=== PATIENT | female | born 1970 | race Caucasian/White ===

== ENCOUNTER 2024-10-07 04:13 | Inpatient (IN) | payer MEDICAID, OTHER ==
[~2024-10-07] VITALS: Ht 162.6 cm; Wt 57.0 kg
[2024-10-07] VITALS (45 sets, daily range): BP systolic 89–156; BP diastolic 45–93; PULSE 61–114; RESP 14–35; TEMP 100.2–101.7; O2SAT 97–100
[2024-10-07] MEDS: ETOMIDATE (2MG/ML) 20ML VIAL IV ONE ×2 (04:17→05:05)
[2024-10-07] MEDS: AMIODARONE BOLUS KIT 100 ML IV ONE ×2 (04:17→04:30)
[2024-10-07] MEDS: ROCURONIUM 10MG/ML 10ML VIAL IV ONE ×2 (04:17→05:05)
[2024-10-07] MEDS ORDERED: VANCOMYCIN 1GM/200ML PM 200 ML IV ONE (04:45)
[2024-10-07 04:47] LABS: Hematocrit 31.6 % (36.0-46.0); Hemoglobin 10.1 g/dL (12.2-16.2); Mean Corpuscular Hemoglobin 31.2 pg (28.0-32.0); Mean Corpuscular Volume 97.3 fL (80.0-100.0)
[2024-10-07] MEDS: SODIUM CHLORIDE 0.9% 1,000 ML IV ONE ×2 (05:05→05:06)
[2024-10-07 05:06] LABS: INR 1.26 (0.9-1.15); Partial Thromboplastin Time 26.3 SEC (24.5-34.5); Prothrombin Time 13.1 sec (9.3-11.8)
--- NOTE | 2024-10-07 05:07 | DVH ---
CHEST RADIOGRAPH Indication: s/p intubation and central line check placement Technique: Single frontal view of the chest was obtained COMPARISON: None FINDINGS: Lines and Tubes: Endotracheal tube tip projects approximately 1.4 cm above the level of the tyler. E nteric catheter courses below the lateral of the diaphragm and terminates beyond the inferior margin of the image. Right internal jugular central venous catheter terminates within the distal superior v cheng cava. Lungs: Moderate diffuse increased prominence of the pulmonary vasculature without evidence of focal c onsolidation. Pleura: No effusion. No pneumothorax. Cardiomediastinal contours: Cardiomegaly. Bones: Unremarkable IMPRESSION: 1. Cardiomegaly and diffuse increased prominence of the pulmonary vasculature. 2. Lines and tubes as above.
[2024-10-07 05:24] LABS: Alanine Aminotransferase 11 U/L (7-40); BUN/Creatinine Ratio 8.4 (10.0-20.0); Total Protein 5.9 g/dL (5.7-8.2)
[2024-10-07] MEDS: MIDAZOLAM DRIP 50 mg/50mL 50 ML IV SCH (05:24)
[2024-10-07 05:25] LABS: Albumin 3.3 g/dL (3.2-4.8); Bilirubin, Total 0.6 mg/dL (0.2-1.0)
[2024-10-07] MEDS: VANCOMYCIN 1GM/250ML KIT 250 ML IV ONE ×2 (05:25)
[2024-10-07 05:26] LABS: Total Cells Counted 100.0 (100)
[2024-10-07 05:35] LABS: Alkaline Phosphatase 142 U/L (46-116); Blood Urea Nitrogen 8 mg/dL (9-23); Calcium 8.2 mg/dL (8.7-10.4); Chloride 104 mmol/L (98-107); Glucose 140 mg/dL (74-106); Lactic Acid w/Reflex 5.8 mmol/L (0.4-2.0); Potassium 3.4 mmol/L (3.5-5.1); Sodium 138 mmol/L (136-145)
[2024-10-07 05:37] LABS: Anion Gap 15 (5-15); Carbon Dioxide 19 mmol/L (20-31)
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
[2024-10-07 05:54] LABS: Base Excess -1.3 mmol/L (-2.0-3.0)
[2024-10-07] MEDS ORDERED: CEFEPIME 1GM/50ML 50 ML IV SCH (06:00)
[2024-10-07] MEDS: fentaNYL Drip 2500mCg/250mlNS 250 ML IV SCH (06:28)
[2024-10-07 06:29] LABS: Urine Protein, UAD 3+ (Negative)
--- NOTE | 2024-10-07 07:09 | ECG ---
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
--- NOTE | 2024-10-07 07:11 | ECG ---
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
[2024-10-07] MEDS ORDERED: CEFEPIME 1GM/50ML 50 ML IV ONE (07:30)
[2024-10-07] MEDS: CEFEPIME 1GM/50ML 50 ML IV ONE (07:36)
[2024-10-07] MEDS ORDERED: MORPHINE SULFATE INJ 2 MG/ml SYRG IV PRN (10:00)
[2024-10-07] MEDS ORDERED: AMIODARONE 360mg/200mL PREMIX 200 ML IV SCH (10:00)
[2024-10-07] MEDS ORDERED: NITROGLYCERIN 0.4 MG SL TAB SL PRN (10:00)
[2024-10-07] MEDS ORDERED: ONDANSETRON HCL 4 MG/2 ML VIAL IV PRN (10:00)
--- NOTE | 2024-10-07 10:10 | DVHHP2 ---
Admitting Diagnosis: Post cardiac arrest History of Present Illness 54 y/o female patient presents status post cardiac arrest. Patient collapsed at her dining table which was witnessed by her significant other. CPR was performed by EMS. She was noted to have ventricular tachycardia. While in the emergency department the patient was evaluated by the provider, As per provider: Labs, vital signs, and imagining monitored. Patient will be admitted for further evaluation and treatment. I discussed admission with the patient/family and is in agreement to treatment plan. Allergies: Coded Allergies: NO KNOWN ALLERGIES (Unverified , 10/07/24) Current Medications Current Medications Medications (Trade) Dose Ordered Sig/Liliam Route PRN Reason Start Time Stop Time Status Last Admin Cefepime HCl 50 ml @ 12.5 mls/hr Q8HR IV 10/07/24 14:00 10/08/24 06:11 Ondansetron HCl (Zofran) 4 mg Q4HP PRN IV NAUSEA / VOMITING 10/07/24 10:00 Nitroglycerin (Ntrostat Sublingual) 0.4 mg Q5MINP PRN SL FOR CHEST PAIN 10/07/24 10:00 Morphine Sulfate 2 mg Q30M PRN IV FOR CHEST PAIN 10/07/24 10:00 Pantoprazole Sodium (Protonix) 40 mg DAILY IV 10/07/24 10:00 10/07/24 10:52 Norepinephrine Bitartrate 250 ml @ 3.75 mls/hr Q24H IV 10/07/24 12:15 10/07/24 12:35 Heparin Sodium/ Dextrose 250 ml @ 8 mls/hr Q24H IV 10/07/24 16:30 10/08/24 00:33 DC 10/07/24 18:06 Furosemide (Lasix Injection) 40 mg BIDD IV 10/07/24 18:00 10/07/24 17:53 Atorvastatin Calcium (Lipitor) 40 mg HS PO 10/07/24 22:00 Aspirin 81 mg DAILY PO 10/08/24 10:00 Magnesium Sulfate/ Dextrose 100 ml @ 100 mls/hr Q1HR IV 10/07/24 19:00 10/07/24 20:59 DC 10/07/24 20:22 Magnesium Sulfate/ Dextrose 100 ml @ 100 mls/hr Q1HR IV 10/07/24 21:00 10/07/24 22:59 DC 10/07/24 22:00 Heparin Sodium/ Dextrose 250 ml @ 10 mls/hr Q24H IV 10/08/24 00:45 10/08/24 00:36 Review of Systems Constitutional: denies chills, denies fever, denies malaise Eyes: denies eye pain, denies vision change ENT: denies ear pain, denies headache, denies nasal congestion, denies painful swallowing, denies voice change Respiratory: denies cough Gastrointestinal: denies constipation, denies diarrhea, denies nausea, denies vomiting Genitourinary: denies dysuria, denies frequent urination, denies urethral discharge Musculoskeletal: denies back pain, denies joint pain, denies muscle pain Skin: denies bruising, denies itching, denies rash Neurological: denies focal weakness, denies headache, denies sensory changes Psychiatric: denies anxiety, denies depression Endocrine: denies polydipsia, denies polyuria Hematologic/Lymphatic: denies easy bleeding, denies easy bruising, denies enlarged lymph nodes Allergic/Immunologic: denies allergy, denies hives Vital Signs Vital Signs Date Time Temp Pulse Resp B/P (MAP) Pulse Ox O2 Delivery O2 Flow Rate FiO2 10/08/24 06:45 99.3 90 21 100/62 (75) 99 210.7 10/08/24 06:07 30 10/08/24 06:00 Mechanical Ventilator+ Physical Exam HEENT: EOMI, PERRLA, normal external inspect of ears, no icterus, no nasal drainage Neck: no carotid bruit, no jugular venous distention (JVD), no lymphadenopathy Chest: normal thorax Abdominal: soft, no hepatomegaly, no mass, no splenomegaly, no tenderness Genitourinary: grossly normal external Musculoskeletal: no joint tenderness, no swelling Extremities: normal pulses, no calf tenderness, no clubbing, no cyanosis, no edema Skin: no bruising, no jaundice, no rash Neurological: No focal deficit SEPSIS Sepsis Screen Date sepsis recognized/suspect: Oct 07, 2024 Time Sepsis recognized/suspect: 814 Recent Procedure: Yes On Antibiotic Therapy: Yes Respiratory Rate >20: No Heart Rate >90: Yes Temp<36 C (96.8 F) or >38.3 C: Yes SBP <90 or MAP <65 mmHG: No New Acute Mental Status Change: No Is the patient on CPAP, BIPAP,: Yes Physician Orders Ventilator Orders (10/07/24 04:26) Respiratory Culture W/ Gs (10/07/24 04:26) Abg W/ Co-Ox (10/07/24 04:26) Chest Portable (10/07/24 04:31) Accucheck (10/07/24 04:38) Blood Culture (10/07/24 04:38) Notify Md If Map <65 Or Bp<90 (10/07/24 04:38) If Map<65 Start Vasopressor (10/07/24 04:38) Sepsis Reassesment After Fluid (10/07/24 05:38) Midazolam Drip 50 Mg/50ml (Versed Drip 5 (10/07/24 04:45) Rass Sedation Scale Q1HR (10/07/24 04:40) Fentanyl Drip 2500mcg/250mlns (10/07/24 06:15) Cefepime 1gm/ 50ml (Maxipime 1gm/50ml) (10/07/24 14:00) Admit (10/07/24 09:56) Code Status (10/07/24 09:56) Ondansetron Hcl (Zofran) (10/07/24 10:00) Condition: Critical (10/07/24 09:56) Sequential Compression Device (10/07/24 ) *Consult Dr. Armstrong (10/07/24 09:56) *Consult / (10/07/24 09:56) Nitroglycerin Sublingual (Ntrostat Subli (10/07/24 10:00) Morphine Sulfate Injection (10/07/24 10:00) Stat Ekg For Chest Pain (10/07/24 09:56) Notify Md Of Changes From Base (10/07/24 09:56) Orange Picker For 24 Hours (10/07/24 09:56) Emergency Dysrhythmia Protocol (10/07/24:56) Rhythm Strips Once Every Shift (10/07/24 09:56) Oxygen By Nasal Cannula (10/07/24 09:56) Echo 2d Mode Cardiac Dop (10/07/24 09:56) Head Without Contrast (10/07/24 09:56) Pantoprazole (Protonix) (10/07/24 10:00) *Consult Dr. Gee Herring (10/07/24 10:10) Communication Order (10/07/24 12:00) Norepinephrine 8 Mg/250ml Kit (Levophed) (10/07/24 12:15) Mrsa Screen (10/07/24 16:50) Platelet Monitoring (10/07/24 16:24) Heparin Per Standardized Proce (10/07/24 16:24) Discontinue All Im Injections (10/07/24 16:24) Furosemide Injection (Lasix Injection) (10/07/24 18:00) Atorvastatin (Lipitor) (10/07/24 22:00) Aspirin Tablet (10/08/24 10:00) Obtain Consent For: (10/08/24 17:24) Obtain Consent For Anesthesia (10/07/24 17:24) Npo (Nothing By Mouth) Diet (10/08/24 Breakfast) Electrocardigram (10/07/24 21:15) Electrocardigram (10/07/24 23:15) Communication Order (10/07/24 20:54) Abg W/ Co-Ox (10/07/24 21:16) Amiodarone 360mg/200ml Premix (Nexterone (10/07/24 21:30) *[facility] (10/07/24 23:21) Heparin Drip/D5w 100units/Ml (10/08/24 00:45) Heparin Per Pharmacy Protocol (10/08/24 00:38) Type And Screen (10/08/24 04:00) Chest Xray 1 View (10/08/24 04:00) Abg W/ Co-Ox (10/08/24 05:06) Chest Xray 1 View (10/08/24 06:24) Cl Left Heart Cath (10/08/24 07:37) Vital Signs Date Time Temp Pulse Resp B/P (MAP) Pulse Ox O2 Delivery O2 Flow Rate FiO2 10/08/24 06:45 99.3 90 21 100/62 (75) 99 210.7 10/08/24 06:30 99.9 88 18 89/55 (66) 211.8 10/08/24 06:30 86/53 10/08/24 06:15 99.9 73 18 92/56 (68) 211.8 8/11/25 06:07 87 18 92/56 (68) 100 30 10/08/24 06:00 100.0 76 18 103/46 (65) 212.0 10/08/24 06:00 18 99 Mechanical Ventilator+ 30 30 10/08/24 06:00 86 10/08/24 06:00 30 10/08/24 05:45 100.0 86 18 93/56 (68) 212.0 10/08/24 05:30 100.0 88 18 95/59 (71) 212.0 10/08/24 05:15 100.0 86 18 95/62 (73) 212.0 10/08/24 05:00 100.2 87 18 98/63 (75) 99 212.4 10/08/24 04:45 99.7 90 18 97/63 (74) 211.5 10/08/24 04:30 99.5 89 18 99/63 (75) 211.1 10/08/24 04:15 100.0 90 18 81/54 (63) 212.0 10/08/24 04:03 90 18 96/59 (71) 100 50 10/08/24 04:00 100.2 95 18 96/59 (71) 212.4 10/08/24 04:00 89 10/08/24 04:00 30 10/08/24 04:00 18 99 Mechanical Ventilator+ 50 50 10/08/24 03:54 213.6 0 0 0 Mechanical Ventilator 0 0 10/08/24 03:45 100.2 93 18 105/68 (80) 212.4 10/08/24 03:40 99/64 10/08/24 03:30 100.2 97 18 99/64 (76) 212.4 10/08/24 03:15 99.9 95 18 92/55 (67) 211.8 10/08/24 03:00 100.2 98 18 99/65 (76) 212.4 10/08/24 02:45 100.2 99 18 95/47 (63) 212.4 10/08/24 02:30 100.2 99 18 99/62 (74) 212.4 10/08/24 02:24 99 18 97/58 (71) 100 50 10/08/24 02:15 100.4 101 18 97/58 (71) 212.7 10/08/24 02:00 100.4 100 18 96/49 (65) 212.7 10/08/24 02:00 50 10/08/24 02:00 90 10/08/24 02:00 18 99 Mechanical Ventilator+ 50 50 10/08/24 01:45 100.4 95 18 102/60 (74) 212.7 10/08/24 01:30 100.6 93 18 90/53 (65) 213.1 10/08/24 01:15 100.6 101 18 99/50 (66) 213.1 10/08/24 01:00 100.6 111 18 94/59 (71) 213.1 10/08/24 00:45 100.6 101 18 96/58 (71) 213.1 10/08/24 00:30 100.6 103 18 101/49 (66) 213.1 10/08/24 00:16 106 19 100/52 (68) 100 50 10/08/24 00:15 100.8 110 20 100/52 (68) 213.4 10/08/24 00:00 100.9 99 18 104/58 (73) 213.6 10/08/24 00:00 68 10/08/24 00:00 18 99 Mechanical Ventilator+ 60 60 10/08/24 00:00 60 10/07/24 23:45 101.1 108 18 101/55 (70) 214.0 10/07/24 23:30 101.1 67 18 102/57 (72) 214.0 10/07/24 23:15 101.1 70 19 100/55 (70) 214.0 10/07/24 23:00 101.3 69 18 105/46 (65) 214.3 10/07/24 22:45 101.5 74 20 94/45 (61) 214.7 10/07/24 22:30 101.7 73 20 105/55 (72) 215.1 10/07/24 22:15 101.7 71 21 106/59 (75) 215.1 10/07/24 22:11 76 20 94/51 (65) 100 60 10/07/24 22:00 18 99 Mechanical Ventilator+ 60 60 10/07/24 22:00 101.7 76 22 94/51 (65) 215.1 10/07/24 22:00 70 10/07/24 22:00 60 10/07/24 21:45 101.7 79 23 90/49 (63) 215.1 10/07/24 21:30 101.5 77 22 95/48 (64) 214.7 10/07/24 21:15 101.5 82 22 93/45 (61) 214.7 10/07/24 21:00 80 21 90/52 (65) 10/07/24 20:45 101.3 82 30 94/51 (65) 214.3 10/07/24 20:30 88 31 100 10/07/24 20:15 90 35 112/54 (73) 10/07/24 20:05 79 19 102/55 (71) 99 100 10/07/24 20:00 72 10/07/24 20:00 100.9 76 20 213.6 10/07/24 20:00 30 10/07/24 20:00 18 99 Mechanical Ventilator+ 30 30 10/07/24 20:00 73 24 99 Mechanical Ventilator+ 30 30 10/07/24 19:45 100.8 61 35 117/60 (79) 100 213.4 10/07/24 19:30 100.8 83 20 100 213.4 10/07/24 19:30 88/46 10/07/24 19:15 100.6 79 23 89/47 (61) 213.1 10/07/24 19:00 89/47 10/07/24 19:00 100.6 76 18 95/54 (68) 213.1 10/07/24 18:45 100.6 76 14 101/65 (77) 213.1 10/07/24 18:40 74 18 104/61 (75) 99 30 10/07/24 18:30 100.4 73 18 103/60 (74) 212.7 10/07/24 18:15 100.4 82 20 97/56 (70) 97 212.7 10/07/24 18:00 18 99 Mechanical Ventilator+ 30 30 10/07/24 18:00 30 10/07/24 18:00 73 10/07/24 18:00 100.4 77 18 92/61 (71) 98 212.7 10/07/24 17:53 102/59 10/07/24 17:45 100.2 71 18 102/59 (73) 99 212.4 10/07/24 17:30 100.4 72 18 100/61 (74) 100 212.7 10/07/24 17:15 100.4 74 18 99/62 (74) 99 212.7 10/07/24 17:00 100.4 74 18 102/63 (76) 100 212.7 10/07/24 16:45 100.4 73 18 110/58 (75) 98 212.7 10/07/24 16:30 100.6 77 18 103/60 (74) 100 213.1 10/07/24 16:28 74 19 104/61 (75) 99 30 10/07/24 16:15 100.6 74 17 104/61 (75) 99 213.1 10/07/24 16:00 73 10/07/24 16:00 18 99 Mechanical Ventilator+ 30 30 10/07/24 16:00 100.6 74 22 109/60 (76) 99 213.1 10/07/24 16:00 30 10/07/24 15:56 79 18 101/61 100 30 10/07/24 15:45 100.6 78 19 97/61 (73) 99 213.1 10/07/24 15:30 78 21 108/59 (75) 98 10/07/24 15:13 81 22 100 Mechanical Ventilator+ 30 30 10/07/24 15:13 100.6 78 19 97/61 (73) 100 100.6 10/07/24 14:22 79 18 101/61 (74) 100 30 10/07/24 14:15 10/07/24 14:00 80 18 100/59 (73) 98 10/07/24 13:45 80 18 102/61 (75) 98 10/07/24 13:30 80 18 101/61 (74) 97 10/07/24 13:15 83 20 104/67 (79) 98 10/07/24 13:12 83 10/07/24 13:00 84 18 92/56 (68) 97 10/07/24 12:45 84 18 99/52 (68) 99 10/07/24 12:35 85/53 10/07/24 12:30 82 14 85/53 (64) 99 10/07/24 12:25 82 18 97/53 (68) 100 30 10/07/24 12:15 84 17 97/53 (68) 99 10/07/24 12:00 82 18 99/57 (71) 98 10/07/24 11:45 82 16 92/60 (71) 99 10/07/24 11:39 83 19 91/53 (66) 98 10/07/24 11:30 83 19 91/53 (66) 98 10/07/24 11:15 86 18 100/58 (72) 96 10/07/24 11:00 87 18 99/57 (71) 97 10/07/24 10:45 85 21 101/54 (70) 97 10/07/24 10:30 86 20 98/55 (69) 94 10/07/24 10:15 85 18 93/54 (67) 96 10/07/24 10:00 90 20 103/58 (73) 97 10/07/24 09:58 92 19 115/60 (78) 100 30 10/07/24 09:45 93 11 99/48 (65) 99 10/07/24 09:30 93 16 113/56 (75) 98 10/07/24 09:15 95 23 110/51 (70) 98 10/07/24 09:01 113/66 10/07/24 09:00 110 113/66 (82) 97 10/07/24 08:45 110 130/64 (86) 98 10/07/24 08:32 112 10/07/24 08:30 112 115/70 (85) 98 10/07/24 08:15 110 130/79 (96) 98 10/07/24 08:00 97.9 112 18 129/78 (95) 99 97.9 10/07/24 07:45 109 133/81 (98) 98 10/07/24 07:43 108 18 136/83 (100) 99 40 10/07/24 07:29 Mechanical Ventilator+ 40 40 10/07/24 07:00 103 29 129/74 (92) 97 10/07/24 07:00 129/74 10/07/24 07:00 129/74 10/07/24 06:30 96.3 112 29 147/84 (105) 97 96.3 10/07/24 06:28 156/93 10/07/24 06:17 114 18 156/93 (114) 97 40 10/07/24 06:00 153/91 10/07/24 06:00 96.1 97 29 153/91 (111) 97 96.1 10/07/24 05:30 83 29 137/80 (99) 97 10/07/24 05:24 129/75 10/07/24 05:20 84 10/07/24 05:00 95.7 85 29 122/77 (92) 97 95.7 10/07/24 04:30 86 29 106/59 (75) 97 10/07/24 04:27 85 18 106/59 (75) 100 100 10/07/24 04:16 Mechanical Ventilator+ 40 40 10/07/24 04:16 94.1 96 25 112/70 (84) 95 94.1 10/07/24 04:16 93 Ambu-Bag 10/07/24 04:16 93 20 112/70 93 10/07/24 04:13 84 Laboratory Tests Test 10/07/24 04:12 10/07/24 05:40 10/07/24 16:53 10/08/24 03:12 Lactic Acid Level 5.8 mmol/L (0.4-2.0) *H 2.0 mmol/L (0.4-2.0) White Blood Count 14.5 10^3/uL (4.4-10.8) H 11.9 10^3/uL (4.4-10.8) H 18.8 10^3/uL (4.4-10.8) #H Medications Medications Dose Ordered Sig/Liliam Route Start Time Stop Time Status Last Admin Dose Admin Heparin Sodium/ Dextrose 250 ml @ 10 mls/hr Q24H IV 10/08/24 00:45 10/08/24 00:36 Magnesium Sulfate/ Dextrose 100 ml @ 100 mls/hr Q1HR IV 10/07/24 21:00 10/07/24 22:59 DC 10/07/24 22:00 Results Labs Test 10/08/24 07:17 10/08/24 06:15 10/08/24 03:12 10/08/24 00:36 Range/Units Blood Gas Specimen Type Arterial Blood Gas Sample Site Right radial Blood Gas Patient Temperature 37.0 Arterial Blood Date Drawn [id number] Arterial Blood pH 7.497 H 7.350-7.450 Arterial Blood Partial Pressure CO2 26.4 L 32.0-45.0 mmHg Arterial Blood Partial Pressure O2 99.5 83.0-108.0 mmHg Arterial Blood HCO3 20.0 L 21.0-28.0 mmol/L Arterial Blood Oxygen Saturation 97.4 94.0-98.0 % Arterial Blood Base Excess -2.3 L -2.0-3.0 mmol/L Arterial Blood Oxyhemoglobin 97.0 94.0-98.0 % Arterial Blood Carboxyhemoglobin 0.3 L 0.5-1.5 % Arterial Blood Methemoglobin 0.1 0.0-1.5 % Trung Test Yes Blood Gas Total Hemoglobin 10.30 L 12.0-16.0 g/dL Blood Gas Set Respiration Rate 18.0 Blood Gas Modality Vent - ac FiO2 % 30.0 Blood Gas Tidal Volume 450.0 Prothrombin Time 12.4 H 9.3-11.8 sec Prothrombin Time INR 1.19 H 0.9-1.15 Activated Partial Thromboplast Time 72.7 *H 24.5-34.5 SEC White Blood Count 18.8 #H 4.4-10.8 10^3/uL Red Blood Count 2.97 L 4.0-5.20 10^6/uL Hemoglobin 9.2 L 12.2-16.2 g/dL Hematocrit 28.4 L 36.0-46.0 % Mean Corpuscular Volume 95.5 80.0-100.0 fL Mean Corpuscular Hemoglobin 30.9 28.0-32.0 pg Mean Corpuscular Hemoglobin Concent 32.4 32.0-36.0 g/dL Red Cell Distribution Width 20.6 H 11.8-14.3 % Platelet Count 220 140-450 10^3/uL Mean Platelet Volume 9.4 6.9-10.8 fL Neutrophils (%) (Auto) 77.6 37.0-80.0 % Lymphocytes (%) (Auto) 16.6 10.0-50.0 % Monocytes (%) (Auto) 5.6 0.0-12.0 % Eosinophils (%) (Auto) 0.0 0.0-7.0 % Basophils (%) (Auto) 0.2 0.0-2.0 % Neutrophils # (Auto) 14.6 H 1.6-8.6 10 ^3/uL Lymphocytes # (Auto) 3.1 0.4-5.4 10 ^3/uL Monocytes # (Auto) 1.1 0-1.3 10 ^3/uL Eosinophils # (Auto) 0 0-0.8 10 ^3/uL Basophils # (Auto) 0 0-0.2 10 ^3/uL Nucleated Red Blood Cells 0.0 % Sodium Level 138 136-145 mmol/L Potassium Level 3.3 L 3.5-5.1 mmol/L Chloride Level 105 98-107 mmol/L Carbon Dioxide Level 22 20-31 mmol/L Anion Gap 11 5-15 Blood Urea Nitrogen 11 9-23 mg/dL Creatinine 0.83 0.550-1.02 mg/dL Glomerular Filtration Rate Calc 83 >90 mL/min BUN/Creatinine Ratio 13.3 10.0-20.0 Serum Glucose 130 H 74-106 mg/dL Calcium Level 7.6 L 8.7-10.4 mg/dL Total Bilirubin 0.6 0.2-1.0 mg/dL Aspartate Amino Transferase (AST) 19 13-40 U/L Alanine Aminotransferase (ALT) 13 7-40 U/L Alkaline Phosphatase 133 H 46-116 U/L Total Protein 5.5 L 5.7-8.2 g/dL Albumin 3.0 L 3.2-4.8 g/dL Magnesium Level 3.0 #H 1.6-2.6 mg/dL Test 10/07/24 22:13 10/07/24 14:09 10/07/24 10:56 10/07/24 06:17 Range/Units Blood Gas Spontaneous Rate 20 Blood Gas Spontaneous Tidal Volume 488 Blood Gas PEEP or CPAP 5.0 Blood Gas Critical Value Read Back Yes Blood Gas Notified Whom Md sarkis rodas Blood Gas Notified Time [id number] Blood Gas Notified By Gerry crane Troponin I High Sensitivity 117 *H </=34 ng/L B-Type Natriuretic Peptide 457.16 0-100 pg/mL Triglycerides Level 71 < 150 mg/dL Cholesterol Level 66 < 200 mg/dL LDL Cholesterol 31 < 100 mg/dL HDL Cholesterol 21 L 40-59 mg/dL Urine Color Yellow Yellow Urine Clarity Turbid H Clear Urine pH 6.0 5.0-9.0 Urine Specific [place] 1.033 1.001-1.035 Urine Protein 3+ H Negative Urine Ketones Trace Negative Urine Blood 1+ H Negative /uL Urine Nitrite Negative Negative Urine Bilirubin Negative Negative Urine Urobilinogen 3 H Negative mg/dL Urine Leukocyte Esterase Negative Negative /uL Urine Glucose 1+ H Normal mg/dL Urine Opiates Screen Neg NEGATIVE Urine Fentanyl Screen Neg NEGATIVE Urine Barbiturates Screen Neg NEGATIVE Urine Phencyclidine Screen Neg NEGATIVE Urine Amphetamines Screen Neg NEGATIVE Urine Benzodiazepines Screen Neg NEGATIVE Urine Cocaine Screen Neg NEGATIVE Urine Cannabinoids Screen Neg NEGATIVE Test 10/07/24 05:40 10/07/24 04:12 Range/Units Lactic Acid Level 2.0 0.4-2.0 mmol/L Differential Total Cells Counted 100.0 100 Neutrophils % (Manual) 54 37.0-80.0 Band Neutrophils % (Manual) 1 Lymphocytes % (Manual) 37 10.0-50.0 Monocytes % (Manual) 7 0-12 Eosinophils % (Manual) 1 0-7 Basophils % (Manual) 0 0.0-2.0 Metamyelocytes % (manual) 0 Myelocytes % (Manual) 0 Promyelocytes % (Manual) 0 Blast Cells % (Manual) 0 Reactive Lymphocytes 0 Platelet Estimate Adequate Microbiology Date/Time Source Procedure Growth Status 10/07/24 05:40 Blood Blood Culture - Preliminary NO GROWTH AFTER 24 HOURS OF INCUBATION. Resulted Plan 1. S/p cardiac arrest Cardiology consult, STAT echo, IV antiarrhythmics, plan for heart cath 2. Ventricular fibrillation Cardiology consult, plan for heart cath 3. Chronic anticoagulation DVT prophylaxis, PPI 4. HLD Monitor, medications 5. Gout Monitor, PPI Plan discussed with: Patient, Other BRODIE GARVIN NP Oct 07, 2024 10:10
[2024-10-07] MEDS: PANTOPRAZOLE 40 MG/10 ML VIAL INJ IV SCH (10:52)
[2024-10-07 11:42] LABS: Triglycerides 71 mg/dL (< 150)
[2024-10-07 11:44] LABS: Cholesterol 66 mg/dL (< 200); HDL Cholesterol 21 mg/dL (40-59)
[2024-10-07] MEDS: POTASSIUM CHL 20MEQ/100ML 100 ML IV ONE (12:20)
[2024-10-07] MEDS: AMIODARONE 360mg/200mL PREMIX 200 ML IV SCH (12:21)
[2024-10-07] MEDS: NOREPINEPHRINE 8 MG/250ML KIT 250 ML IV SCH (12:35)
--- NOTE | 2024-10-07 13:29 | DVHSR ---
APPROVED REPORT EXAM: Two-dimensional and M-mode echocardiogram with Doppler and color Doppler. Blood Pressure: 113/66 mmHg INDICATION Vfib Surgery/Intervention CABG: RISK FACTORS Height: 5' 4", Weight: 143 DIMENSIONS LVDd5.5 (3.8-5.7cm)LA (2D)4.1 (1.9-4.0cm)Aortic Root3.2 (2.0-3.7cm) LVDs5.1 (2.5-4.0cm)LA (MM) (1.9-4.0cm)Aortic Cusp Exc1.7 (1.5-2.0cm) EF (%) 15.0 (55-70%)Rt. Atrium4.4 (1.9-4.0cm)Asc. Aorta cm IVSd1.0 (0.7-1.1cm)RV (D) (1.8-2.4cm) PWd1.0 (0.7-1.1cm) Mitral Valve MitralMitral Stenosis E wave1.30m/sMV Mean GR.mmHg A wave0.70m/sMV Peak GR.mmHg E/A ratio1.92D MVAcm2 Aortic Valve Aortic ValveAortic Stenosis V10.50m/Lisa Mean GR.5mmHg V21.60m/Lisa Peak GR.11mmHg AI P 1/2 Gghk013.68ms Pulmonic Valve V20.70m/s Tricuspid Valve TR Velocity2.90m/s [id number] Conclusion lvef 15-20% dilated LV severe global dysfunction mild RV dysfunction biatrial enlargement mild moderate MAC, moderate mitral regurg mild to moderate aortic regug
[2024-10-07 13:40] LABS: Amphetamine Screen, Urine Neg (NEGATIVE)
[2024-10-07 13:41] LABS: Cannabinoid Screen, Urine Neg (NEGATIVE)
[2024-10-07 13:43] LABS: Barbiturate Scree,Urine Neg (NEGATIVE); Benzodiazephine Screen, Urine Neg (NEGATIVE); Cocaine Screen, Urine Neg (NEGATIVE); Opiate Scree,Urine Neg (NEGATIVE); Phencyclidine Screen, Urine Neg (NEGATIVE)
[2024-10-07] MEDS: CEFEPIME 1GM/50ML 50 ML IV SCH (14:13)
--- NOTE | 2024-10-07 15:42 | DVH ---
CT HEAD WITHOUT CONTRAST INDICATION: aloc EXAM DATE: 10/07/2024 03:01 PM COMPARISON: None RADIATION DOSE: CTDIvol: 53.58 mGy, DLP: 1075.12 mGy*cm PROCEDURE: CT scans of the head were obtained from the vertex to the skull base. Sagittal and coronal reconstructions were provided. All CT scans at this medical facility are performed using dose modulation techniques as appropriate t o a performed exam including the following: Automated exposure control was utilized; adjustment of th e MA and/or KV according to patient size; and use of iterative reconstruction technique. FINDINGS: The brainshows normal morphology and smith-white matter differentiation, without intracra nial hemorrhage, extra-axial fluid collection, mass effect or acute large vessel infarct. The ventric les are normal in size. The basal cisterns are patent. The skull and visible facial bones are intact. The paranasal sinuses, mastoid air cells and middle ear cavities are well-aerated. The soft tissues of the scalp are unremarkable. IMPRESSION: No acute intracranial abnormality.
--- NOTE | 2024-10-07 15:47 | DVHINCON2 ---
Date of service: Oct 07, 2024 Referring Physician Gissel Gomez NP Reason for Consultation Acute respiratory failure History of Present Illness History Source: Patient, RN Notes, MD Notes Exam Limitations: Clinical condition HPI Patient is a 54-year old lady with a history of recent admission in [place], cardiomyopathy and afib who presented in cardiac arrest. Was seen in the emergency room where she was found to be in vfib requiring cardioversion and amiodarone drip. The patient was intubated during the event and placed on mechanical ventilation upon return of spontaneous circulation. Pulmonology was consulted to assist in management. Past Medical History Cardiac: AFIB, Cardiomyopathy Pulmonary: No pertinent Hx Central Nervous System: No pertinent Hx GI: No pertinent Hx Hemotology/Oncology: No pertinent Hx Hepatobiliary: No pertinent Hx Psychiatric: No pertinent Hx Musculoskeletal: No pertinent Hx Rheumotologic: No pertinent Hx Infectious Disease: No peritnent Hx ENT: No pertinent Hx Renal/: No pertinent Hx Endocrine: No pertinent Hx Dermatology: No pertinent Hx Past Surgical History: No pertinent Hx Family History: No pertinent Hx Smoker: No Hx (Negative) Alocohol: None Drugs: None Lives with: With family Domestic Violence: Neg Review of Systems Comments unable to perform- patient intubated and sedated H&P Exam Vital Signs Vital Signs Date Time Temp Pulse Resp B/P (MAP) Pulse Ox O2 Delivery O2 Flow Rate FiO2 10/07/24 14:22 79 18 101/61 (74) 100 30 10/07/24 08:00 97.9 97.9 10/07/24 07:29 Mechanical Ventilator+ General Appeara: Well developed, Well nourished, Normal Appearance Head Exam: Normal inspection Neck Exam: Normal inspection, Non-tender, Normal alignment Eye Exam: bilateral eye Normal inspection, bilateral eye PERRL, bilateral eye EOMI Ear Exam: bilateral ear Auricle normal, bilateral ear Canal normal, bilateral ear TM normal Nasal Exam: Normal inspection Mouth: Normal Inspection Pulmonary/Respiratory: Decreased breath sounds Cardiovascular/Chest: Normal inspection Peripheral Pulses: 4+ Radial (R), 4+ Radial (L), 4+ Brachial (R), 4+ Brachial (L) Abdominal Exam: Normal bowel sounds Labs/Xrays Labs Test 10/07/24 14:09 10/07/24 10:56 10/07/24 06:17 10/07/24 05:49 Range/Units Troponin I High Sensitivity 117 *H </=34 ng/L B-Type Natriuretic Peptide 457.16 0-100 pg/mL Triglycerides Level 71 < 150 mg/dL Cholesterol Level 66 < 200 mg/dL LDL Cholesterol 31 < 100 mg/dL HDL Cholesterol 21 L 40-59 mg/dL Urine Color Yellow Yellow Urine Clarity Turbid H Clear Urine pH 6.0 5.0-9.0 Urine Specific [place] 1.033 1.001-1.035 Urine Protein 3+ H Negative Urine Ketones Trace Negative Urine Blood 1+ H Negative /uL Urine Nitrite Negative Negative Urine Bilirubin Negative Negative Urine Urobilinogen 3 H Negative mg/dL Urine Leukocyte Esterase Negative Negative /uL Urine Glucose 1+ H Normal mg/dL Urine Opiates Screen Neg NEGATIVE Urine Fentanyl Screen Neg NEGATIVE Urine Barbiturates Screen Neg NEGATIVE Urine Phencyclidine Screen Neg NEGATIVE Urine Amphetamines Screen Neg NEGATIVE Urine Benzodiazepines Screen Neg NEGATIVE Urine Cocaine Screen Neg NEGATIVE Urine Cannabinoids Screen Neg NEGATIVE Blood Gas Specimen Type Arterial Blood Gas Sample Site Left radial Blood Gas Patient Temperature 37.0 Arterial Blood Date Drawn [id number] Arterial Blood pH 7.424 7.350-7.450 Arterial Blood Partial Pressure CO2 35.5 32.0-45.0 mmHg Arterial Blood Partial Pressure O2 423.0 *H 83.0-108.0 mmHg Arterial Blood HCO3 22.7 21.0-28.0 mmol/L Arterial Blood Oxygen Saturation 99.7 H 94.0-98.0 % Arterial Blood Base Excess -1.3 -2.0-3.0 mmol/L Arterial Blood Oxyhemoglobin 96.3 94.0-98.0 % Arterial Blood Carboxyhemoglobin 2.7 H 0.5-1.5 % Arterial Blood Methemoglobin 0.7 0.0-1.5 % Trung Test Modified Blood Gas Total Hemoglobin 10.20 L 12.0-16.0 g/dL Blood Gas Set Respiration Rate 18.0 Blood Gas Modality Vent - ac FiO2 % 100.0 Blood Gas Tidal Volume 450.0 Blood Gas PEEP or CPAP 5.0 Blood Gas Critical Value Read Back yes Blood Gas Notified Whom Blood Gas Notified Time [id number] Blood Gas Notified By jonah Sen 10/07/24 05:40 10/07/24 04:12 Range/Units Lactic Acid Level 2.0 0.4-2.0 mmol/L White Blood Count 14.5 H 4.4-10.8 10^3/uL Red Blood Count 3.25 L 4.0-5.20 10^6/uL Hemoglobin 10.1 L 12.2-16.2 g/dL Hematocrit 31.6 L 36.0-46.0 % Mean Corpuscular Volume 97.3 80.0-100.0 fL Mean Corpuscular Hemoglobin 31.2 28.0-32.0 pg Mean Corpuscular Hemoglobin Concent 32.0 32.0-36.0 g/dL Red Cell Distribution Width 20.6 H 11.8-14.3 % Platelet Count 195 140-450 10^3/uL Mean Platelet Volume 9.0 6.9-10.8 fL Neutrophils (%) (Auto) 37.0-80.0 % Lymphocytes (%) (Auto) 10.0-50.0 % Monocytes (%) (Auto) 0.0-12.0 % Basophils (%) (Auto) 0.0-2.0 % Neutrophils # (Auto) 1.6-8.6 10 ^3/uL Lymphocytes # (Auto) 0.4-5.4 10 ^3/uL Monocytes # (Auto) 0-1.3 10 ^3/uL Differential Total Cells Counted 100.0 100 Neutrophils % (Manual) 54 37.0-80.0 Band Neutrophils % (Manual) 1 Lymphocytes % (Manual) 37 10.0-50.0 Monocytes % (Manual) 7 0-12 Eosinophils % (Manual) 1 0-7 Basophils % (Manual) 0 0.0-2.0 Metamyelocytes % (manual) 0 Myelocytes % (Manual) 0 Promyelocytes % (Manual) 0 Blast Cells % (Manual) 0 Reactive Lymphocytes 0 Platelet Estimate Adequate Prothrombin Time 13.1 H 9.3-11.8 sec Prothrombin Time INR 1.26 H 0.9-1.15 Activated Partial Thromboplast Time 26.3 24.5-34.5 SEC Sodium Level 138 136-145 mmol/L Potassium Level 3.4 L 3.5-5.1 mmol/L Chloride Level 104 98-107 mmol/L Carbon Dioxide Level 19 L 20-31 mmol/L Anion Gap 15 5-15 Blood Urea Nitrogen 8 L 9-23 mg/dL Creatinine 0.95 0.550-1.02 mg/dL Glomerular Filtration Rate Calc 71 >90 mL/min BUN/Creatinine Ratio 8.4 L 10.0-20.0 Serum Glucose 140 H 74-106 mg/dL Calcium Level 8.2 L 8.7-10.4 mg/dL Magnesium Level 2.0 1.6-2.6 mg/dL Total Bilirubin 0.6 0.2-1.0 mg/dL Aspartate Amino Transferase (AST) 32 13-40 U/L Alanine Aminotransferase (ALT) 11 7-40 U/L Alkaline Phosphatase 142 H 46-116 U/L Total Protein 5.9 5.7-8.2 g/dL Albumin 3.3 3.2-4.8 g/dL Assessment/Plan Plan Impression Acute hypoxemic respiratory failure Hx of coronary artery disease Elevated troponin S/p cardiac arrest Vfib arrest Patient seen and examined in ICU Events On mechanical ventilation S/p intubation PEEP 5, FiO2 30% Labs and imaging reviewed Chest x-ray shows cardiomegaly BUN/creatinine normal ABG reviewed pH 7.42, pCO2 35, pO2 423 Management Vent support Titrate to maintain sats 90% or above Sedation for vent synchrony Empiric antibiotics Bronchodilators Monitor renal function Monitor electrolytes Supplement as needed Pressors as needed for hemodynamic support To maintain a mean arterial pressure of 65 mmHg F/u cardiology DVT prophylaxis Critical care time 35 minutes Plan discussed with: Other (Rn) BELLO ROTHMAN MD Oct 07, 2024 15:47
--- NOTE | 2024-10-07 16:51 | CONS ---
Pharmacy Clinical Information: NEW HEPARIN DRIP ACS PROTOCOL BASELINE PTT DONE BOLUS 4000UNITS X 1 START RATE 800U/HR (8ML/HR) NEXT PTT 10/09/24@2300 COMMUNICATED WITH ALLEN DICKSON PHARMACIST Oct 07, 2024 16:51
[2024-10-07 17:03] LABS: Hematocrit 29.5 % (36.0-46.0); Hemoglobin 9.6 g/dL (12.2-16.2); Mean Corpuscular Hemoglobin 30.7 pg (28.0-32.0); Mean Corpuscular Volume 94.6 fL (80.0-100.0); Nucleated Red Blood Cells % 0.0 %
[2024-10-07] MEDS: HEPARIN SODIUM (PORCINE) 5000 UNITS/ML 1ML VIAL IV ONE (17:41)
[2024-10-07] MEDS: FUROSEMIDE 40 MG/4 ML VIAL IV SCH (17:53)
[2024-10-07] MEDS: HEPARIN DRIP/D5W 100UNITS/ML 250 ML IV SCH (18:06)
[2024-10-07 18:15] LABS: INR 1.24 (0.9-1.15); Partial Thromboplastin Time 28.8 SEC (24.5-34.5); Prothrombin Time 12.9 sec (9.3-11.8)
[2024-10-07 18:18] LABS: Potassium 4.0 mmol/L (3.5-5.1)
[2024-10-07 18:25] LABS: Magnesium 1.6 mg/dL (1.6-2.6)
[2024-10-07] MEDS: MAGNESIUM SULFATE 1GM/100ML 100 ML IV SCH ×2 (19:09→21:12)
[2024-10-07 20:45] LABS: Chloride 111 mmol/L (98-107); Potassium 4.6 mmol/L (3.5-5.1); Sodium 137 mmol/L (136-145)
[2024-10-07 20:46] LABS: Anion Gap 9 (5-15)
[2024-10-07 20:49] LABS: Calcium 7.8 mg/dL (8.7-10.4); Carbon Dioxide 17 mmol/L (20-31)
[2024-10-07 20:53] LABS: BUN/Creatinine Ratio 5.4 (10.0-20.0); Blood Urea Nitrogen < 5 mg/dL (9-23); Glucose 132 mg/dL (74-106)
[2024-10-07] MEDS: ATORVASTATIN 20 MG TAB PO SCH (22:00)
[2024-10-07 22:22] LABS: Base Excess -7.4 mmol/L (-2.0-3.0)
[2024-10-08] VITALS (102 sets, daily range): BP systolic 81–115; BP diastolic 46–84; PULSE 68–121; RESP 8–26; TEMP 97.9–102.2; O2SAT 95–100
[2024-10-08 00:29] LABS: INR 1.19 (0.9-1.15); Partial Thromboplastin Time 45.4 SEC (24.5-34.5); Prothrombin Time 12.4 sec (9.3-11.8)
[2024-10-08] MEDS: HEPARIN DRIP/D5W 100UNITS/ML 250 ML IV SCH ×2 (00:36→21:45)
[2024-10-08 00:59] LABS: Chloride 106 mmol/L (98-107); Potassium 3.5 mmol/L (3.5-5.1); Sodium 138 mmol/L (136-145)
[2024-10-08 01:00] LABS: Anion Gap 11 (5-15); Carbon Dioxide 21 mmol/L (20-31)
[2024-10-08 01:05] LABS: BUN/Creatinine Ratio 12.6 (10.0-20.0); Blood Urea Nitrogen 11 mg/dL (9-23)
[2024-10-08 01:13] LABS: Calcium 7.8 mg/dL (8.7-10.4); Glucose 172 mg/dL (74-106); Magnesium 3.0 mg/dL (1.6-2.6)
[2024-10-08] MEDS: AMIODARONE 360mg/200mL PREMIX 200 ML IV SCH (03:41)
--- NOTE | 2024-10-08 03:55 | RESUS ---
ANGELICA MURRAY ASSESSSMENT History of Events History of Events: 54-year-old female was sitting at the dining table around 3:00 a.m. when she collapsed in front of her significant other. arrived started CPR paramedics noticed ventricular tachycardia with VFib. Shocked with 200 joules. Was able to revive the patient after the shocked. Patient was brought unconscious to the ER with a with a pulse. Pt was admitted to icu, tonight pt went into v tach and lost pulses. Initial Information Date: Oct 07, 2024 [place] Arrest: [place] Witnessed: Yes CPR started initial time: 20:07 CPR started by whom: Hospital Staff Last seen well: prior to arrest Pre-Hospital Care: ACLS Type of arrest: Cardiac, Respiratory, Adult, Witnessed Spontaneous Respirations: No Pulse Present: No Monitoring: ECG, Pulse Oximetry, Telemetry Crash Cart Opened and Supplies: Yes Airway Ventilation Breathing at Onset: Apneic O2 Sat by Pulse Oximetry: 0 Oxygen Delivery Method: Mechanical Ventilator Artificial Ventilation: Bag/Endo tube Comments: pt intubated prior to arrest Circulation Circulation : Time: 20:07 Pulse Rate (adult): 0 Blood Pressure Systolic: 0 Blood Pressure Diastolic: 0 Temperature (Fahrenheit): 100.9 Defibrillation Defbrillation : Time Defibrillator Applied: 20:09 EKG Rhythm: V-Tachycardia Compressions: Device Compressions Hold/Resume: 2009 Time Defibrillator Shocked Pt.: 20:09 Defib. Joules: 200 Pulse Present: No EKG Rhythm: Atrial Fibrillation Medications & Response Medications and Responses : Medication Time: 20:08 ADULT Medications Given ADULT: Epinephrine 1 mg, Amiodarone 300 mg Route of Administration: IV Heart Rate: 0 EKG Rhythm: V-Tachycardia Blood Pressure Systolic: 0 Blood Pressure Diastolic: 0 Respiratory Rate: 0 O2 Sat by Pulse Oximetry: 0 EKG Rhythm: V-Tachycardia Procedure - NG/OG Tube Procedure - NG/OG Tube : Comment placed prior to code Procedure - Central Venous Cat Comment: placed prior to code Procedure - [place] Catheter Comment: placed prior to code Nurses Notes [place] Coma Scale Eye Opening: None (1) Devi Coma Scale Verbal: None (1) Devi Coma Scale Motor: None (1) Pupil Reaction: Sluggish EKG Rhythm: Atrial Fibrillation Time Code Ended Time Code Ended: 20:10 Post Arrest Status: Ventilated Outcome of code: Successful Code Team Present: TONIO GALVAN RN HS, OSCAR STEAM FLATTENER, KHALIF RN, BASSAM RN CULLEN RN, THERESA RN. Post Resuscitation Neurologica Pupil Size: 3 ROSC Time of ROSC: 20:10 Pt Meets Criteria for Therapeu: COLE Gerber Oct 08, 2024 03:54
[2024-10-08 04:16] LABS: Hematocrit 28.4 % (36.0-46.0); Hemoglobin 9.2 g/dL (12.2-16.2); Mean Corpuscular Hemoglobin 30.9 pg (28.0-32.0); Mean Corpuscular Volume 95.5 fL (80.0-100.0); Nucleated Red Blood Cells % 0.0 %
[2024-10-08 04:29] LABS: Alanine Aminotransferase 13 U/L (7-40); Anion Gap 11 (5-15); BUN/Creatinine Ratio 13.3 (10.0-20.0); Bilirubin, Total 0.6 mg/dL (0.2-1.0); Blood Urea Nitrogen 11 mg/dL (9-23); Carbon Dioxide 22 mmol/L (20-31); Chloride 105 mmol/L (98-107); Sodium 138 mmol/L (136-145)
--- NOTE | 2024-10-08 04:30 | DVH ---
CHEST RADIOGRAPH Indication: intubated Technique: Single frontal view of the chest was obtained Comparison: XY CHEST PORTABLE on DOS: 10/07/24 FINDINGS: Lines and Tubes: Endotracheal tube tip 1.6 cm above the tyler ; consider 2 cm retraction. Right IJ line noted. Enteric line noted. median sternotomy wires. Lungs: Mild pulmonary vascular congestion. No focal consolidations. Pleura: No effusion. No pneumothorax. Cardiomediastinal contours: Moderate cardiomegaly. Bones: No acute osseous abnormality. IMPRESSION: 1. Endotracheal tube tip 1.6 cm above the tyler; consider 2 cm retraction 2. Mild pulmonary vascular congestion. Moderate cardiomegaly.
[2024-10-08 04:33] LABS: Albumin 3.0 g/dL (3.2-4.8); Alkaline Phosphatase 133 U/L (46-116); Calcium 7.6 mg/dL (8.7-10.4); Glucose 130 mg/dL (74-106); Potassium 3.3 mmol/L (3.5-5.1); Total Protein 5.5 g/dL (5.7-8.2)
--- NOTE | 2024-10-08 06:41 | ECG ---
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
[2024-10-08 07:14] LABS: INR 1.19 (0.9-1.15); Prothrombin Time 12.4 sec (9.3-11.8)
[2024-10-08 07:19] LABS: Partial Thromboplastin Time 72.7 SEC (24.5-34.5)
[2024-10-08 07:31] LABS: Base Excess -2.3 mmol/L (-2.0-3.0)
--- NOTE | 2024-10-08 08:30 | DVH ---
CHEST RADIOGRAPH Indication: Reposition ETT Technique: Single frontal view of the chest was obtained Comparison: XY CHEST XRAY 1 VIEW on DOS: 10/08/24, XY CHEST PORTABLE on DOS: 10/07/24, XY CHEST XRAY 1 VIEW on DOS: 10/08/24 FINDINGS: Lines and Tubes: Endotracheal tube tip 1.6 cm above the tyler ; consider 2 cm retraction. Right IJ line noted. Enteric line noted. median sternotomy wires. Lungs: Mild pulmonary vascular congestion. No focal consolidations. Pleura: No effusion. No pneumothorax. Cardiomediastinal contours: Moderate cardiomegaly. Bones: No acute osseous abnormality. IMPRESSION: Endotracheal tube tip 1.6 cm above the tyler; consider 2 cm retraction Mild pulmonary vascular congestion. Moderate cardiomegaly.
--- NOTE | 2024-10-08 08:44 | CONS ---
Pharmacy Clinical Information: HEPARIN DRIP, ACS PROTOCOL @0615 APTT 72.7- NO BOLUS, NO CHANGE NEXT APTT DRAW SCHEDULED @1215 PER RX PROTOCOL CONFIRMED AND READ BACK WITH RN ELZBIETA RESENDIZ [facility] RESIDENT Oct 08, 2024 08:44
[2024-10-08] MEDS: POTASSIUM CHL 20MEQ/100ML 100 ML IV SCH (09:04)
--- NOTE | 2024-10-08 10:14 | DVHINCON2 ---
Date of service: Oct 08, 2024 History of Present Illness HPI Patient is a 54-year-old female who was brought to the hospital for witnessed syncope. She is intubated and is being managed in ICU. Information was obtained by reviewing the chart and communicating with patient's son (over the phone). Family recognized witnessed syncope and started CPR and called EMS. Reportedly, EMS found the patient in ventricular fibrillation and shocked the patient and brought the patient to the hospital. Patient was intubated in emergency room and transferred to ICU. Patient was on amiodarone drip. Later the patient had ventricular tachycardia (Systane). High sensitive troponin had been minimally/flatly elevated. Presentation was not in favor of acute coronary syndrome. Cardiology is involved for cardiac aspects of care. Past Medical History Others Past medical history as per son: Congenital heart disease, status post bypass Patient Family History: Alcoholism Cardiovascular disease G8 MOTHER Review of Systems All Other Systems Patient is intubated and cannot provide ROS/social history and family history H&P Exam Vital Signs Vital Signs Date Time Temp Pulse Resp B/P (MAP) Pulse Ox O2 Delivery O2 Flow Rate FiO2 10/08/24 10:08 96 18 108/68 (81) 100 30 10/08/24 06:45 99.3 210.7 10/08/24 06:00 Mechanical Ventilator+ General Appeara: Moderate distress Pulmonary/Respiratory: Rhonci, Other (intubated) Cardiovascular/Chest: Regular rate, Systolic murmur Peripheral Pulses: 2+ carotid (R), 2+ carotid (L) Abdominal Exam: Normal bowel sounds, Soft Labs/Xrays Labs Test 10/08/24 07:17 10/08/24 06:15 10/08/24 03:12 10/08/24 00:36 Range/Units Blood Gas Specimen Type Arterial Blood Gas Sample Site Right radial Blood Gas Patient Temperature 37.0 Arterial Blood Date Drawn [id number] Arterial Blood pH 7.497 H 7.350-7.450 Arterial Blood Partial Pressure CO2 26.4 L 32.0-45.0 mmHg Arterial Blood Partial Pressure O2 99.5 83.0-108.0 mmHg Arterial Blood HCO3 20.0 L 21.0-28.0 mmol/L Arterial Blood Oxygen Saturation 97.4 94.0-98.0 % Arterial Blood Base Excess -2.3 L -2.0-3.0 mmol/L Arterial Blood Oxyhemoglobin 97.0 94.0-98.0 % Arterial Blood Carboxyhemoglobin 0.3 L 0.5-1.5 % Arterial Blood Methemoglobin 0.1 0.0-1.5 % Trung Test Yes Blood Gas Total Hemoglobin 10.30 L 12.0-16.0 g/dL Blood Gas Set Respiration Rate 18.0 Blood Gas Modality Vent - ac FiO2 % 30.0 Blood Gas Tidal Volume 450.0 Prothrombin Time 12.4 H 9.3-11.8 sec Prothrombin Time INR 1.19 H 0.9-1.15 Activated Partial Thromboplast Time 72.7 *H 24.5-34.5 SEC White Blood Count 18.8 #H 4.4-10.8 10^3/uL Red Blood Count 2.97 L 4.0-5.20 10^6/uL Hemoglobin 9.2 L 12.2-16.2 g/dL Hematocrit 28.4 L 36.0-46.0 % Mean Corpuscular Volume 95.5 80.0-100.0 fL Mean Corpuscular Hemoglobin 30.9 28.0-32.0 pg Mean Corpuscular Hemoglobin Concent 32.4 32.0-36.0 g/dL Red Cell Distribution Width 20.6 H 11.8-14.3 % Platelet Count 220 140-450 10^3/uL Mean Platelet Volume 9.4 6.9-10.8 fL Neutrophils (%) (Auto) 77.6 37.0-80.0 % Lymphocytes (%) (Auto) 16.6 10.0-50.0 % Monocytes (%) (Auto) 5.6 0.0-12.0 % Eosinophils (%) (Auto) 0.0 0.0-7.0 % Basophils (%) (Auto) 0.2 0.0-2.0 % Neutrophils # (Auto) 14.6 H 1.6-8.6 10 ^3/uL Lymphocytes # (Auto) 3.1 0.4-5.4 10 ^3/uL Monocytes # (Auto) 1.1 0-1.3 10 ^3/uL Eosinophils # (Auto) 0 0-0.8 10 ^3/uL Basophils # (Auto) 0 0-0.2 10 ^3/uL Nucleated Red Blood Cells 0.0 % Sodium Level 138 136-145 mmol/L Potassium Level 3.3 L 3.5-5.1 mmol/L Chloride Level 105 98-107 mmol/L Carbon Dioxide Level 22 20-31 mmol/L Anion Gap 11 5-15 Blood Urea Nitrogen 11 9-23 mg/dL Creatinine 0.83 0.550-1.02 mg/dL Glomerular Filtration Rate Calc 83 >90 mL/min BUN/Creatinine Ratio 13.3 10.0-20.0 Serum Glucose 130 H 74-106 mg/dL Calcium Level 7.6 L 8.7-10.4 mg/dL Total Bilirubin 0.6 0.2-1.0 mg/dL Aspartate Amino Transferase (AST) 19 13-40 U/L Alanine Aminotransferase (ALT) 13 7-40 U/L Alkaline Phosphatase 133 H 46-116 U/L Total Protein 5.5 L 5.7-8.2 g/dL Albumin 3.0 L 3.2-4.8 g/dL Magnesium Level 3.0 #H 1.6-2.6 mg/dL Test 10/07/24 22:13 10/07/24 14:09 10/07/24 10:56 10/07/24 06:17 Range/Units Blood Gas Spontaneous Rate 20 Blood Gas Spontaneous Tidal Volume 488 Blood Gas PEEP or CPAP 5.0 Blood Gas Critical Value Read Back Yes Blood Gas Notified Whom Md sarkis rodas Blood Gas Notified Time [id number] Blood Gas Notified By Cad Draftsman mk crane Troponin I High Sensitivity 117 *H </=34 ng/L B-Type Natriuretic Peptide 457.16 0-100 pg/mL Triglycerides Level 71 < 150 mg/dL Cholesterol Level 66 < 200 mg/dL LDL Cholesterol 31 < 100 mg/dL HDL Cholesterol 21 L 40-59 mg/dL Urine Color Yellow Yellow Urine Clarity Turbid H Clear Urine pH 6.0 5.0-9.0 Urine Specific [place] 1.033 1.001-1.035 Urine Protein 3+ H Negative Urine Ketones Trace Negative Urine Blood 1+ H Negative /uL Urine Nitrite Negative Negative Urine Bilirubin Negative Negative Urine Urobilinogen 3 H Negative mg/dL Urine Leukocyte Esterase Negative Negative /uL Urine Glucose 1+ H Normal mg/dL Urine Opiates Screen Neg NEGATIVE Urine Fentanyl Screen Neg NEGATIVE Urine Barbiturates Screen Neg NEGATIVE Urine Phencyclidine Screen Neg NEGATIVE Urine Amphetamines Screen Neg NEGATIVE Urine Benzodiazepines Screen Neg NEGATIVE Urine Cocaine Screen Neg NEGATIVE Urine Cannabinoids Screen Neg NEGATIVE Test 10/07/24 05:40 10/07/24 04:12 Range/Units Lactic Acid Level 2.0 0.4-2.0 mmol/L Differential Total Cells Counted 100.0 100 Neutrophils % (Manual) 54 37.0-80.0 Band Neutrophils % (Manual) 1 Lymphocytes % (Manual) 37 10.0-50.0 Monocytes % (Manual) 7 0-12 Eosinophils % (Manual) 1 0-7 Basophils % (Manual) 0 0.0-2.0 Metamyelocytes % (manual) 0 Myelocytes % (Manual) 0 Promyelocytes % (Manual) 0 Blast Cells % (Manual) 0 Reactive Lymphocytes 0 Platelet Estimate Adequate Microbiology Date/Time Source Procedure Growth Status 10/07/24 05:40 Blood Blood Culture - Preliminary NO GROWTH AFTER 24 HOURS OF INCUBATION. Resulted Assessment/Plan Plan Patient is a 54-year-old female who was brought to the hospital for witnessed syncope. She is intubated and is being managed in ICU. Information was obtained by reviewing the chart and communicating with patient's son (over the phone). Family recognized witnessed syncope and started CPR and called EMS. Reportedly, EMS found the patient in ventricular fibrillation and shocked the patient and brought the patient to the hospital. Patient was intubated in emergency room and transferred to ICU. Patient was on amiodarone drip. Later the patient had ventricular tachycardia (Systane). High sensitive troponin had been minimally/flatly elevated. Presentation was not in favor of acute coronary syndrome. Cardiology is involved for cardiac aspects of care. Intubated. Noncommunicative. No JVD. Mucosa pale. No carotid bruit. Scattered rhonchi in the lungs is heard. Cardiac: Regular, no thrill. Systolic murmur 2/6 in apex is heard. Abdomen is soft. No edema in extremities. Past medical history as per son: Congenital heart disease, status post bypass WBC: 14.5 - 11.9 - 18.8 Hemoglobin: 10.1 - 9.6 - 9.2 Creatinine: 0.95 - 0.93 - 0.87 - 0.83 Potassium: 3.4 - 4.0 - 4.6 - 3.5 - 3.3 Magnesium: 2.0 - 1.6 - 2.0 - 3.0 Troponin (high sensitive): 141 - 138 - 117 BNP: 457.16 Chest x-ray revealed: Lines and Tubes: Endotracheal tube tip projects approximately 1.4 cm above the level of the tyler. Enteric catheter courses below the lateral of the diaphragm and terminates beyond the inferior margin of the image. Right internal jugular central venous catheter terminates within the distal superior vena cava. Lungs: Moderate diffuse increased prominence of the pulmonary vasculature without evidence of focal consolidation. Pleura: No effusion. No pneumothorax. Cardiomediastinal contours: Cardiomegaly. Bones: Unremarkable IMPRESSION: 1. Cardiomegaly and diffuse increased prominence of the pulmonary vasculature. 2. Lines and tubes as above. Repeat chest x-ray revealed: IMPRESSION: 1. Endotracheal tube tip 1.6 cm above the tyler; consider 2 cm retraction 2. Mild pulmonary vascular congestion. Moderate cardiomegaly. Repeat chest xry revealed: IMPRESSION: Endotracheal tube tip 1.6 cm above the tyler; consider 2 cm retraction Mild pulmonary vascular congestion. Moderate cardiomegaly. CT of the head revealed: IMPRESSION: No acute intracranial abnormality. Echocardiogram reported: lvef 15-20% dilated LV severe global dysfunction mild RV dysfunction biatrial enlargement mild moderate MAC, moderate mitral regurg mild to moderate aortic regug (images of echo reviewed and questioned presence of mitral ring and also some component (moderate of Mitral stenosis) EKG revealed sinus rhythm Telemetry revealed occasions of atrial fibrillation. There was occasional sustained ventricular tachycardia. EMS tele monitor revealed ventricular fibrillation for which the patient was shocked LHC revealed: Patent [place] to LAD; Patent SVG to obtuse marginal; LVEF of 20% with increased EDP; Proximal disease in LAD/LCX RICHIE was performed: Consistent with severely reduced LVEF. Consistent with previously implanted Mitral ring, Up to moderate Mitral stenosis/Mitral Regurgitation and also Moderate Aortic insufficiency. Patient is a 54-year-old female who presented with witnessed syncope. She was found to have ventricular fibrillation for which was shocked. Later had repeated episode of sustained ventricular tachycardia. Patient has been kept in ICU. Does have baseline history of coronary artery disease for which has had bypass surgery. Left heart catheterization was performed which revealed patent [place] and patent SVG. ACS is not considered at this point. It is of note that the patient's echocardiogram reveals significantly use systolic function. Valvular heart disease is considered. Findings are in favor of previously implanted mitral ring. By reviewing the echo images, component of up to moderate mitral stenosis could not be ruled out. LHC was performed that ruled out any active specific ischemia as an etiology for presentation. Syncope V-fib s/p shock Sustained V-tach Paroxysmal A-fib VHD, s/p Mitral ring Systolic heart failure Cardiac suggestion for management: Manage in ICU Follow up electrolytes and kidney function test and correct abnormalities Full anticoagulation (a-fib with high CHADS-Vasc score). On Heparin drip for now IV Amiodarone Mexiletine EP consultation (Dr Armstrong) ICD implantation as per EP Pulmonary Evaluation for respiratory failure Provide previous medical records from reaching out to previous hospitals in [facility]... Thank you for consultation Further evaluation and management depends on the above and clinical course. A total of 75 minutes was spent reviewing the patient record, examining the patient, making a diagnostic and therapeutic plan, discussing this plan with medical personnel, following up on diagnostic studies and following the patient for clinical stability excluding any and all procedures. At least 50% of this time was spent in direct, [id number] contact. Thank you for allowing me to participate in this patient's care. Further recommendations will depend on patient's clinical course. Please do not hesitate to contact me if you have any questions or concerns. This medical document was created using electronic medical record system with [employer] computerized dictation system. Although this document has been carefully reviewed, there may still be some phonetic and typographical errors. These areas are purely typographical due to the imperfection of the software programs, and do not reflect any compromise in the patient's medical care. Plan discussed with: Son, Other (nurse) CORDELL VERA MD Oct 08, 2024 10:14
--- NOTE | 2024-10-08 11:05 | DVHPN2 ---
Progress Note - Dictate Date Seen: Oct 08, 2024 Medical Necessity Reason Pt with a Central, PICC or Fol: Yes vital signs Vital Sign Date Time Temp Pulse Resp B/P (MAP) Pulse Ox O2 Delivery O2 Flow Rate FiO2 10/08/24 10:08 96 18 108/68 (81) 100 30 10/08/24 06:45 99.3 210.7 10/08/24 06:00 Mechanical Ventilator+ Total Intake and Output 10/07/24 10/07/24 10/08/24 15:00 23:00 07:00 Intake Total 150 ml 346.47 ml 525.56 ml Output Total 100 ml 600 ml Balance 150 ml 246.47 ml -74.44 ml medications Current Medications Medications Dose Ordered Sig/Liliam Route Start Time Stop Time Status Last Admin Dose Admin Midazolam HCl 50 ml @ 1 mls/hr Q24H IV 10/07/24 04:45 10/08/24 03:40 3 MLS/HR Fentanyl Citrate 250 ml @ 2.5 mls/hr Q24H IV 10/07/24 06:15 10/08/24 10:40 15 MLS/HR Cefepime HCl 50 ml @ 12.5 mls/hr Q8HR IV 10/07/24 14:00 10/08/24 06:11 12.5 MLS/HR Ondansetron HCl 4 mg Q4HP PRN IV 10/07/24 10:00 Nitroglycerin 0.4 mg Q5MINP PRN SL 10/07/24 10:00 Morphine Sulfate 2 mg Q30M PRN IV 10/07/24 10:00 Pantoprazole Sodium 40 mg DAILY IV 10/07/24 10:00 10/08/24 10:33 40 MG Norepinephrine Bitartrate 250 ml @ 3.75 mls/hr Q24H IV 10/07/24 12:15 10/07/24 12:35 3.75 MLS/HR Furosemide 40 mg BIDD IV 10/07/24 18:00 10/07/24 17:53 40 MG Atorvastatin Calcium 40 mg HS PO 10/07/24 22:00 Aspirin 81 mg DAILY PO 10/08/24 10:00 10/08/24 10:35 81 MG Heparin Sodium/ Dextrose 250 ml @ 10 mls/hr Q24H IV 10/08/24 00:45 10/08/24 00:36 10 MLS/HR Potassium Chloride 100 ml @ 50 mls/hr Q2H IV 10/08/24 08:00 10/08/24 11:59 10/08/24 09:04 50 MLS/HR laboratory and microbiology Laboratory Tests 10/08/24 03:12 Test 10/08/24 03:12 Range/Units Serum Glucose 130 H 74-106 mg/dL Assessment/Plan s/p cardiac arrest VT elevated troponin acute resp failure atelectases pt seen and examined on the ICU sedated levophed drip amiodarone heparin vent setting ac volume peep 5 cm H20 Fi02=30% CXR congestion echo noted EF 15% pt scheduled for [facility] management continue sedation/vent support after [facility] start sedation holiday if neuro status ok proceed to weaning PS 7/5 cont abx monitor cx monitor labs renal function daily abg and CXR dvt proph/on heparin drip crit care time 35 min Plan discussed with: Other (rn) BELLO ROTHMAN MD Oct 08, 2024 11:05
--- NOTE | 2024-10-08 11:23 | ECG ---
[facility] Test Date: 2024-10-07 Test Time: 19:44:28 Pat Name: CLAIRE OLIVO Department: ICU Room: [address] [place] [address] A Gender: F Facilities Painter: Delores OLIVARES : 1970 Requested By: DOLLY ELIZALDE Order Number: [id number] Reading MD: Marito Skelton Measurements Intervals [place] Rate: 80 P: 0 TX: 0 QRS: 7 QRSD: 90 T: 34 QT: 482 QTc: 557 Interpretive Statements Atrial fibrillation Ventricular tachycardia, unsustained Borderline repolarization abnormality Prolonged QT interval Electronically Signed On 10-08-2024 18:43:33 PDT by Marito Skelton Please click the below link to view image of tracing.
--- NOTE | 2024-10-08 11:24 | ECG ---
[facility] Test Date: 2024-10-07 Test Time: 19:47:15 Pat Name: CLAIRE OLIVO Department: ICU Room: [address] [place] [address] A Gender: F Instrument Lens Grinder Apprentice: Delores Mayes : 1970 Requested By: DOLLY ELIZALDE Order Number: [id number] Reading MD: Marito Skelton Measurements Intervals [place] Rate: 113 P: 0 MI: 0 QRS: 0 QRSD: 92 T: 59 QT: 470 QTc: 645 Interpretive Statements Atrial fibrillation Ventricular tachycardia, unsustained Borderline repolarization abnormality Prolonged QT interval Electronically Signed On 10-08-2024 18:43:57 PDT by Marito Seklton Please click the below link to view image of tracing.
--- NOTE | 2024-10-08 12:25 | ECG ---
[facility] Test Date: 2024-10-08 Test Time: 10:06:23 Pat Name: CLAIRE OLIVO Department: icu Room: [address] [place] [address] A Gender: F Investigator: Johanny Manrique : 1970 Requested By: CORDELL VERA Order Number: [id number] Reading MD: Marito Skelton Measurements Intervals [place] Rate: 91 P: 0 AL: 37 QRS: -6 QRSD: 98 T: 127 QT: 373 QTc: 459 Interpretive Statements Sinus rhythm Short AL interval LVH with secondary repolarization abnormality Electronically Signed On 10-08-2024 18:47:59 PDT by Marito Skelton Please click the below link to view image of tracing.
[2024-10-08] MEDS: LIDOCAINE 2%HCL (LOCAL ANESTH.) INJ 20ML MDV ONE (14:14)
[2024-10-08] MEDS: SODIUM CHL 0.9% 0 ML ONE (14:14)
[2024-10-08] MEDS: IODIXANOL 320MG/ML 100ML BTL IV ONE ×2 (14:14→15:39)
[2024-10-08] MEDS: VERAPAMIL 2.5MG/ML INJ 2ML VIAL IV ONE (14:14)
[2024-10-08] MEDS: ANGIOMAX 250 MG VIAL IV ONE (14:14)
[2024-10-08 14:38] LABS: INR 1.19 (0.9-1.15); Partial Thromboplastin Time 62.6 SEC (24.5-34.5); Prothrombin Time 12.4 sec (9.3-11.8)
--- NOTE | 2024-10-08 14:54 | CONS ---
Pharmacy Clinical Information: HEPARIN DRIP, ACS PROTOCOL @0320 APTT 62.6 - NO BOLUS, NO CHANGE NEXT APTT DRAW SCHEDULED @1999 PER RX PROTOCOL CONFIRMED AND READ BACK WITH RN ELZBIETA EWING [facility] RESIDENT Oct 08, 2024 14:54
--- NOTE | 2024-10-08 16:28 | DVHOP2 ---
Operative Report Procedures performed: Left heart catheterization and bilateral coronary angiogram Bypass angiography Diagnosis: Patent RICHMOND to LAD Patent SVG to obtuse marginal LVEF of 20% with increased EDP Proximal disease in LAD/LCX Cardiac suggestion for management: Optimized medical therapy Management of Arrhythmia as per Cardiology/Electrophysiology Findings: LVEF: 20% EDP: 20 mm Hg There was no transaortic valve pressure gradient Left main: Left main was coming off the left sinus of Valsalva. There was moderate disease in at distal left main. LAD: LAD was coming off the left main. There was a patent RICHMOND attached to mid LAD. Proximal LAD had diffuse disease with questionable previous dissection. LCX: LCX was coming off the left main. Proximal LCX had diffuse disease. There was patent SVG to obtuse marginal RCA: RCA was coming off the right sinus of Valsalva. It was a dominant vessel and provided RPDA. RCA throughout its course and branches had mild diffuse disease. SVG to obtuse marginal was patent with mild diffuse disease. RICHMOND to LAD was patent with no significant disease. Fluoroscopy was consistent with previously implanted mitral ring Presentation: Patient is a 54-year-old female who presented to the hospital after witnessed syncope. EMS found the patient in ventricular fibrillation and the patient was shocked. She was intubated in emergency room. Later was managed in ICU and had repeated sustained ventricular tachycardia also. Previou s history of the patient is poorly available. Patient usually goes to [facility] for cardiac care. She herself was intubated and did not provide information. As per son, patient had bypass surgery previously. The son does not know when the problem started. Echocardiogram revealed significantly reduced left ventricular systolic function. There was questionable mitral stenosis versus previously implanted mitral ring Procedure: After obtaining the informed consent from the next of kin (son, over the phone), the patient was brought to the laundry laborer. She was prepped and draped in sterile fashion. Right femoral artery was used for access site. Using ultrasound guidance, and also using micropuncture sheath, the right femoral artery was accessed. The micropuncture sheath was exchanged over a wire to a 6 [place] Islander femoral sheath. A 6 [place] JL4 diagnostic catheter was used to perform left coronary angiography. A 6 [place] JR4 diagnostic catheter was used to perform right coronary angiography, SVG angiography to obtuse marginal and RICHMOND angiography. The same JR4 diagnostic catheter was used to perform left heart catheterization (obtaining pressures and performing left ventriculography). There was no indication for any transcatheter revascularization. Total bleeding was less than 10 mL. There was no complication. Right femoral artery access site was managed by deploying an Angio-Seal device Fluoroscopy time: 8.1 minutes contrast: 80 mL of CORDELL Wolff MD Oct 08, 2024 16:28
--- NOTE | 2024-10-08 17:36 | DVHOP2 ---
Operative Report Trans-Esophageal Echocardiogram PROCEDURE REPORT Date of Service: 10/08/2024 Fire Officer: Cordell Vera MD PROCEDURE PERFORMED: Transesophageal echocardiogram, Intra cardiac bubble study. PREOPERATIVE DIAGNOSES: r/o Valvular heart disease. DESCRIPTION OF PROCEDURE: The patient Son (over the phone gave consent) signed informed consent understanding risks, benefits and alternatives of the procedure, he wished to proceed. She was placed in a left lateral decubitus position (patient was intubated and fully sedated prior to start the procedure). A RICHIE probe was passed into the mid esophagus without any difficulties or complications. Multiple planar images were obtained. Bubble study was also performed. At the completion of procedure, RICHIE probe was removed and there were no immediate complications. Vitals signs were stable throughout the procedu re. FINDINGS: 1. Left ventricle: Dilated LV was seen. LVEF was 25%. There was diffuse hypokinesis of left ventricle. 2. Right ventricle: RV was mildly dilated. 3. Left atrium: LA enlarged 4. Right atrium: RA was enlarged. 5. Mitral valve: Mitral was thickened with reduced opening. Moderate Mitral regurgitation was seen. Planinomentry of valve (TTE images also obtained) revealed MVA of 2.1 cm. Mean pressure gradient (obtained from limited TTE images) was 5. Images are consistent with previously implanted Ring in Mitral position. Consistent with up to Moderate Mitral stenosis. . There was no vegetation 6. Left atrial appendage: No evidence of thrombus. 7. Aortic valve: Trileaflet valve. No stenosis. Up to moderate Aortic Insufficiency was seen. There was no vegetation 8. Pulmonic valve: Trivial pulmonic insufficiency. No significant stenosis. 9. Tricuspid valve: Mild tricuspid regurgitation. There was no vegetation 10. Interatrial septum: Negative color flow for right to left shunt was observed. Bubble study was performed: negative for shunt 11. Pericardium: No significant effusion. 12. Thoracic aorta: No significant plaquing. CORDELL VERA MD Oct 08, 2024 17:36
--- NOTE | 2024-10-08 19:17 | DVHINCON2 ---
Date of service: Oct 08, 2024 Referring Physician Reason for Consultation hypokalemia/renal function monitoring after cardiac arrest History of Present Illness 54 years past medical history of CABG, congestive heart failure presents with chief complaints loss of consciousness followed by cardiac arrest/ventricular tachycardia//s/p cpr Nephrology consulted for renal parameters monitored post cardiac arrest Unknown exact medical history Past Medical History As per HPI Past Surgical History As per HPI Allergies: Coded Allergies: NO KNOWN ALLERGIES (Unverified , 10/07/24) Current Medications Current Medications Medications (Trade) Dose Ordered Sig/Liliam Route PRN Reason Start Time Stop Time Status Last Admin Atorvastatin Calcium (Lipitor) 40 mg HS PO 10/07/24 22:00 Aspirin 81 mg DAILY PO 10/08/24 10:00 10/08/24 10:35 Magnesium Sulfate/ Dextrose 100 ml @ 100 mls/hr Q1HR IV 10/07/24 21:00 10/07/24 22:59 DC 10/07/24 22:00 Heparin Sodium/ Dextrose 250 ml @ 10 mls/hr Q24H IV 10/08/24 00:45 10/08/24 00:36 Potassium Chloride 100 ml @ 50 mls/hr Q2H IV 10/08/24 08:00 10/08/24 11:59 DC 10/08/24 11:00 Mexiletine HCl (Mexitil) 150 mg TID GT 10/08/24 22:00 Ceftriaxone Sodium/Dextrose 50 ml @ 50 mls/hr BID IV 10/08/24 22:00 UNV Family History: Alcoholism Cardiovascular disease G8 MOTHER Review of Systems Unknown exactly H&P Exam Vital Signs/I&O Vital Sign Date Time Temp Pulse Resp B/P (MAP) Pulse Ox O2 Delivery O2 Flow Rate FiO2 10/08/24 18:20 92 18 89/56 (67) 100 30 10/08/24 18:00 Mechanical Ventilator+ 10/08/24 06:45 99.3 210.7 Intake and Output 10/07/24 10/08/24 19:00 07:00 Intake Total 257.23 ml 764.80 ml Output Total 100 ml 600 ml Balance 157.23 ml 164.80 ml IV Total 257.23 ml 764.80 ml Output Urine Total 100 ml 600 ml Physical Exam Intubated and sedated No significant edema Bilateral air entry fair Labs/Diagnostic Data Labs/Diagnostic Data Laboratory Tests Test 10/08/24 18:50 10/08/24 13:56 10/08/24 07:17 10/08/24 06:15 Range/Units Prothrombin Time 12.4 H 12.4 H 9.3-11.8 sec Prothrombin Time INR 1.19 H 1.19 H 0.9-1.15 Activated Partial Thromboplast Time 62.6 H 72.7 *H 24.5-34.5 SEC Blood Gas Specimen Type Arterial Blood Gas Sample Site Right radial Blood Gas Patient Temperature 37.0 Arterial Blood Date Drawn [id number] Arterial Blood pH 7.497 H 7.350-7.450 Arterial Blood Partial Pressure CO2 26.4 L 32.0-45.0 mmHg Arterial Blood Partial Pressure O2 99.5 83.0-108.0 mmHg Arterial Blood HCO3 20.0 L 21.0-28.0 mmol/L Arterial Blood Oxygen Saturation 97.4 94.0-98.0 % Arterial Blood Base Excess -2.3 L -2.0-3.0 mmol/L Arterial Blood Oxyhemoglobin 97.0 94.0-98.0 % Arterial Blood Carboxyhemoglobin 0.3 L 0.5-1.5 % Arterial Blood Methemoglobin 0.1 0.0-1.5 % Trung Test Yes Blood Gas Total Hemoglobin 10.30 L 12.0-16.0 g/dL Blood Gas Set Respiration Rate 18.0 Blood Gas Modality Vent - ac FiO2 % 30.0 Blood Gas Tidal Volume 450.0 Test 10/08/24 03:12 10/08/24 00:36 10/07/24 23:04 10/07/24 22:13 Range/Units White Blood Count 18.8 #H 4.4-10.8 10^3/uL Red Blood Count 2.97 L 4.0-5.20 10^6/uL Hemoglobin 9.2 L 12.2-16.2 g/dL Hematocrit 28.4 L 36.0-46.0 % Mean Corpuscular Volume 95.5 80.0-100.0 fL Mean Corpuscular Hemoglobin 30.9 28.0-32.0 pg Mean Corpuscular Hemoglobin Concent 32.4 32.0-36.0 g/dL Red Cell Distribution Width 20.6 H 11.8-14.3 % Platelet Count 220 140-450 10^3/uL Mean Platelet Volume 9.4 6.9-10.8 fL Neutrophils (%) (Auto) 77.6 37.0-80.0 % Lymphocytes (%) (Auto) 16.6 10.0-50.0 % Monocytes (%) (Auto) 5.6 0.0-12.0 % Eosinophils (%) (Auto) 0.0 0.0-7.0 % Basophils (%) (Auto) 0.2 0.0-2.0 % Neutrophils # (Auto) 14.6 H 1.6-8.6 10 ^3/uL Lymphocytes # (Auto) 3.1 0.4-5.4 10 ^3/uL Monocytes # (Auto) 1.1 0-1.3 10 ^3/uL Eosinophils # (Auto) 0 0-0.8 10 ^3/uL Basophils # (Auto) 0 0-0.2 10 ^3/uL Nucleated Red Blood Cells 0.0 % Sodium Level 138 138 136-145 mmol/L Potassium Level 3.3 L 3.5 3.5-5.1 mmol/L Chloride Level 105 106 98-107 mmol/L Carbon Dioxide Level 22 21 20-31 mmol/L Anion Gap 11 11 5-15 Blood Urea Nitrogen 11 11 9-23 mg/dL Creatinine 0.83 0.87 0.550-1.02 mg/dL Glomerular Filtration Rate Calc 83 79 >90 mL/min BUN/Creatinine Ratio 13.3 12.6 10.0-20.0 Serum Glucose 130 H 172 H 74-106 mg/dL Calcium Level 7.6 L 7.8 L 8.7-10.4 mg/dL Total Bilirubin 0.6 0.2-1.0 mg/dL Aspartate Amino Transferase (AST) 19 13-40 U/L Alanine Aminotransferase (ALT) 13 7-40 U/L Alkaline Phosphatase 133 H 46-116 U/L Total Protein 5.5 L 5.7-8.2 g/dL Albumin 3.0 L 3.2-4.8 g/dL Magnesium Level 3.0 #H 1.6-2.6 mg/dL Prothrombin Time 12.4 H 9.3-11.8 sec Prothrombin Time INR 1.19 H 0.9-1.15 Activated Partial Thromboplast Time 45.4 H 24.5-34.5 SEC Blood Gas Specimen Type Arterial Blood Gas Sample Site Left radial Blood Gas Patient Temperature 37.0 Arterial Blood Date Drawn [id number] Arterial Blood pH 7.417 7.350-7.450 Arterial Blood Partial Pressure CO2 25.0 L 32.0-45.0 mmHg Arterial Blood Partial Pressure O2 353.8 *H 83.0-108.0 mmHg Arterial Blood HCO3 15.7 L 21.0-28.0 mmol/L Arterial Blood Oxygen Saturation 99.5 H 94.0-98.0 % Arterial Blood Base Excess -7.4 L -2.0-3.0 mmol/L Arterial Blood Oxyhemoglobin 98.8 H 94.0-98.0 % Arterial Blood Carboxyhemoglobin 0.3 L 0.5-1.5 % Arterial Blood Methemoglobin 0.4 0.0-1.5 % Trung Test Yes Blood Gas Total Hemoglobin 10.70 L 12.0-16.0 g/dL Blood Gas Set Respiration Rate 18.0 Blood Gas Modality Vent - ac Blood Gas Spontaneous Rate 20 FiO2 % 100.0 Blood Gas Tidal Volume 400.0 Blood Gas Spontaneous Tidal Volume 488 Blood Gas PEEP or CPAP 5.0 Blood Gas Critical Value Read Back Yes Blood Gas Notified Whom Md sarkis rodas Blood Gas Notified Time [id number] Blood Gas Notified By Gerry Sen 10/07/24 20:20 10/07/24 17:56 10/07/24 16:53 10/07/24 14:09 Range/Units Sodium Level 137 136-145 mmol/L Potassium Level 4.6 4.0 3.5-5.1 mmol/L Chloride Level 111 H 98-107 mmol/L Carbon Dioxide Level 17 L 20-31 mmol/L Anion Gap 9 5-15 Blood Urea Nitrogen < 5 L 9-23 mg/dL Creatinine 0.93 0.550-1.02 mg/dL Glomerular Filtration Rate Calc 73 >90 mL/min BUN/Creatinine Ratio 5.4 L 10.0-20.0 Serum Glucose 132 H 74-106 mg/dL Calcium Level 7.8 L 8.7-10.4 mg/dL Magnesium Level 2.0 1.6 1.6-2.6 mg/dL White Blood Count 11.9 H 4.4-10.8 10^3/uL Red Blood Count 3.12 L 4.0-5.20 10^6/uL Hemoglobin 9.6 L 12.2-16.2 g/dL Hematocrit 29.5 L 36.0-46.0 % Mean Corpuscular Volume 94.6 80.0-100.0 fL Mean Corpuscular Hemoglobin 30.7 28.0-32.0 pg Mean Corpuscular Hemoglobin Concent 32.5 32.0-36.0 g/dL Red Cell Distribution Width 20.1 H 11.8-14.3 % Platelet Count 197 140-450 10^3/uL Mean Platelet Volume 8.7 6.9-10.8 fL Neutrophils (%) (Auto) 85.8 H 37.0-80.0 % Lymphocytes (%) (Auto) 9.3 L 10.0-50.0 % Monocytes (%) (Auto) 4.8 0.0-12.0 % Eosinophils (%) (Auto) 0.0 0.0-7.0 % Basophils (%) (Auto) 0.1 0.0-2.0 % Neutrophils # (Auto) 10.2 H 1.6-8.6 10 ^3/uL Lymphocytes # (Auto) 1.1 0.4-5.4 10 ^3/uL Monocytes # (Auto) 0.6 0-1.3 10 ^3/uL Eosinophils # (Auto) 0 0-0.8 10 ^3/uL Basophils # (Auto) 0 0-0.2 10 ^3/uL Nucleated Red Blood Cells 0.0 % Prothrombin Time 12.9 H 9.3-11.8 sec Prothrombin Time INR 1.24 H 0.9-1.15 Activated Partial Thromboplast Time 28.8 24.5-34.5 SEC Troponin I High Sensitivity 117 *H </=34 ng/L Test 10/07/24 12:12 10/07/24 10:56 10/07/24 06:17 10/07/24 05:49 Range/Units Troponin I High Sensitivity 138 *H 141 *H </=34 ng/L B-Type Natriuretic Peptide 457.16 0-100 pg/mL Triglycerides Level 71 < 150 mg/dL Cholesterol Level 66 < 200 mg/dL LDL Cholesterol 31 < 100 mg/dL HDL Cholesterol 21 L 40-59 mg/dL Urine Color Yellow Yellow Urine Clarity Turbid H Clear Urine pH 6.0 5.0-9.0 Urine Specific [place] 1.033 1.001-1.035 Urine Protein 3+ H Negative Urine Ketones Trace Negative Urine Blood 1+ H Negative /uL Urine Nitrite Negative Negative Urine Bilirubin Negative Negative Urine Urobilinogen 3 H Negative mg/dL Urine Leukocyte Esterase Negative Negative /uL Urine Glucose 1+ H Normal mg/dL Urine Opiates Screen Neg NEGATIVE Urine Fentanyl Screen Neg NEGATIVE Urine Barbiturates Screen Neg NEGATIVE Urine Phencyclidine Screen Neg NEGATIVE Urine Amphetamines Screen Neg NEGATIVE Urine Benzodiazepines Screen Neg NEGATIVE Urine Cocaine Screen Neg NEGATIVE Urine Cannabinoids Screen Neg NEGATIVE Blood Gas Specimen Type Arterial Blood Gas Sample Site Left radial Blood Gas Patient Temperature 37.0 Arterial Blood Date Drawn [id number] Arterial Blood pH 7.424 7.350-7.450 Arterial Blood Partial Pressure CO2 35.5 32.0-45.0 mmHg Arterial Blood Partial Pressure O2 423.0 *H 83.0-108.0 mmHg Arterial Blood HCO3 22.7 21.0-28.0 mmol/L Arterial Blood Oxygen Saturation 99.7 H 94.0-98.0 % Arterial Blood Base Excess -1.3 -2.0-3.0 mmol/L Arterial Blood Oxyhemoglobin 96.3 94.0-98.0 % Arterial Blood Carboxyhemoglobin 2.7 H 0.5-1.5 % Arterial Blood Methemoglobin 0.7 0.0-1.5 % Trung Test Modified Blood Gas Total Hemoglobin 10.20 L 12.0-16.0 g/dL Blood Gas Set Respiration Rate 18.0 Blood Gas Modality Vent - ac FiO2 % 100.0 Blood Gas Tidal Volume 450.0 Blood Gas PEEP or CPAP 5.0 Blood Gas Critical Value Read Back yes Blood Gas Notified Whom Blood Gas Notified Time [id number] Blood Gas Notified By gerry Sen 10/07/24 05:40 10/07/24 04:12 Range/Units Lactic Acid Level 2.0 5.8 *H 0.4-2.0 mmol/L White Blood Count 14.5 H 4.4-10.8 10^3/uL Red Blood Count 3.25 L 4.0-5.20 10^6/uL Hemoglobin 10.1 L 12.2-16.2 g/dL Hematocrit 31.6 L 36.0-46.0 % Mean Corpuscular Volume 97.3 80.0-100.0 fL Mean Corpuscular Hemoglobin 31.2 28.0-32.0 pg Mean Corpuscular Hemoglobin Concent 32.0 32.0-36.0 g/dL Red Cell Distribution Width 20.6 H 11.8-14.3 % Platelet Count 195 140-450 10^3/uL Mean Platelet Volume 9.0 6.9-10.8 fL Neutrophils (%) (Auto) 37.0-80.0 % Lymphocytes (%) (Auto) 10.0-50.0 % Monocytes (%) (Auto) 0.0-12.0 % Basophils (%) (Auto) 0.0-2.0 % Neutrophils # (Auto) 1.6-8.6 10 ^3/uL Lymphocytes # (Auto) 0.4-5.4 10 ^3/uL Monocytes # (Auto) 0-1.3 10 ^3/uL Differential Total Cells Counted 100.0 100 Neutrophils % (Manual) 54 37.0-80.0 Band Neutrophils % (Manual) 1 Lymphocytes % (Manual) 37 10.0-50.0 Monocytes % (Manual) 7 0-12 Eosinophils % (Manual) 1 0-7 Basophils % (Manual) 0 0.0-2.0 Metamyelocytes % (manual) 0 Myelocytes % (Manual) 0 Promyelocytes % (Manual) 0 Blast Cells % (Manual) 0 Reactive Lymphocytes 0 Platelet Estimate Adequate Prothrombin Time 13.1 H 9.3-11.8 sec Prothrombin Time INR 1.26 H 0.9-1.15 Activated Partial Thromboplast Time 26.3 24.5-34.5 SEC Sodium Level 138 136-145 mmol/L Potassium Level 3.4 L 3.5-5.1 mmol/L Chloride Level 104 98-107 mmol/L Carbon Dioxide Level 19 L 20-31 mmol/L Anion Gap 15 5-15 Blood Urea Nitrogen 8 L 9-23 mg/dL Creatinine 0.95 0.550-1.02 mg/dL Glomerular Filtration Rate Calc 71 >90 mL/min BUN/Creatinine Ratio 8.4 L 10.0-20.0 Serum Glucose 140 H 74-106 mg/dL Calcium Level 8.2 L 8.7-10.4 mg/dL Magnesium Level 2.0 1.6-2.6 mg/dL Total Bilirubin 0.6 0.2-1.0 mg/dL Aspartate Amino Transferase (AST) 32 13-40 U/L Alanine Aminotransferase (ALT) 11 7-40 U/L Alkaline Phosphatase 142 H 46-116 U/L Total Protein 5.9 5.7-8.2 g/dL Albumin 3.3 3.2-4.8 g/dL Microbiology Date/Time Source Procedure Growth Status 10/07/24 16:50 Nose MRSA Screen - Final Complete Assessment hypokalemia proteinuria Cardiac arrest status post V-tach chf recs Recommend diuretics IV Lasix Potassium replace needed Cardiology workup ongoing Renal function stable now Quantify proteinuria Plan discussed with: Other OLIVIER GOMEZ MD Oct 08, 2024 19:17
[2024-10-08] MEDS ORDERED: AMIODARONE HCL (50 MG/ ML) 3 ML VIAL IV ONE (20:14)
[2024-10-08 20:23] LABS: INR 1.19 (0.9-1.15); Partial Thromboplastin Time 42.7 SEC (24.5-34.5); Prothrombin Time 12.4 sec (9.3-11.8)
--- NOTE | 2024-10-08 20:59 | DVHPN2 ---
Progress Note - Dictate Date Seen: Oct 08, 2024 Medical Necessity Reason Pt with a Central, PICC or Fol: Yes vital signs Vital Sign Date Time Temp Pulse Resp B/P (MAP) Pulse Ox O2 Delivery O2 Flow Rate FiO2 10/08/24 20:15 89 18 101/66 (78) 100 30 10/08/24 19:15 101.8 215.2 10/08/24 18:00 Mechanical Ventilator+ Total Intake and Output 10/07/24 10/07/24 10/08/24 15:00 23:00 07:00 Intake Total 150 ml 346.47 ml 591.89 ml Output Total 100 ml 600 ml Balance 150 ml 246.47 ml -8.11 ml medications Current Medications Medications Dose Ordered Sig/Liliam Route Start Time Stop Time Status Last Admin Dose Admin Midazolam HCl 50 ml @ 1 mls/hr Q24H IV 10/07/24 04:45 10/08/24 03:40 3 MLS/HR Fentanyl Citrate 250 ml @ 2.5 mls/hr Q24H IV 10/07/24 06:15 10/08/24 10:40 15 MLS/HR Ondansetron HCl 4 mg Q4HP PRN IV 10/07/24 10:00 Nitroglycerin 0.4 mg Q5MINP PRN SL 10/07/24 10:00 Morphine Sulfate 2 mg Q30M PRN IV 10/07/24 10:00 Pantoprazole Sodium 40 mg DAILY IV 10/07/24 10:00 10/08/24 10:33 40 MG Norepinephrine Bitartrate 250 ml @ 3.75 mls/hr Q24H IV 10/07/24 12:15 10/08/24 12:53 11.25 MLS/HR Furosemide 40 mg BIDD IV 10/07/24 18:00 10/08/24 19:43 40 MG Atorvastatin Calcium 40 mg HS PO 10/07/24 22:00 Aspirin 81 mg DAILY PO 10/08/24 10:00 10/08/24 10:35 81 MG Mexiletine HCl 150 mg TID GT 10/08/24 22:00 Ceftriaxone Sodium/Dextrose 50 ml @ 50 mls/hr DAILY@2200 IV 10/08/24 22:00 Heparin Sodium/ Dextrose 250 ml @ 12 mls/hr [id number] IV 10/08/24 21:00 laboratory and microbiology Laboratory Tests 10/08/24 18:50 10/08/24 03:12 Test 10/08/24 03:12 Range/Units Serum Glucose 130 H 74-106 mg/dL Assessment/Plan Subjective History of Present Illness [facility] paramjithalina is a patient with a history of paroxysmal atrial fibrillation and congenital heart disease presenting status post-CPR following a cardiac arrest. She was recently discharged from [facility] in [place] on with prescriptions for amiodarone, Lipitor, and Lasix, which she did not take. She traveled to the current location on Tuesday and experienced another cardiac arrest last night, requiring code blue intervention. Upon admission yesterday, she developed ventricular tachycardia and required electrical cardioversion. She is currently intubated and in cardiogenic shock, necessitating critical care management. She is on multiple drips, including fentanyl at 175, amiodarone at 1, and epinephrine, which is being titrated up to 6. A heparin drip was also initiated but is currently on hold post-cardiac catheterization. She underwent a left heart catheterization today, which was reported as negative. A transesophageal echocardiogram was also performed, with results pending. Her son, who was contacted in [facility], provided information about her congenital heart disease. Upon review of the echocardiogram, there is suspicion of a tight mitral valve, possibly due to a previously placed ring that has now become constrictive. Her cardiac status remains critical, with ongoing management of arrhythmias and hemodynamic instability. Brain function assessment is pending, and there are discussions about the timing of potential interventions based on neurological recovery. Medical History - Paroxysmal atrial fibrillation - Ventricular tachycardia - Congenital heart disease - Cardiac arrest (multiple episodes) Surgical History - Left heart catheterization today - Transesophageal echocardiogram today Medications and Supplements - Amiodarone - Not taken after discharge - Lipitor - Not taken after discharge - Lasix - Not taken after discharge - Fentanyl 175 - Amiodarone 1 - Epinephrine - Heparin - Currently on hold post-cardiac catheterization Allergies - No known drug allergies reported Family History - Son: Lives in [place] Social History - Living Situation: Lives in [place] Immunizations - Not documented in the current record Review of Systems Unable to obtain due to the patients intubated and critically ill status. Objective Physical Examination Respiratory: Patient is intubated. Laboratory, Imaging, and Diagnostic Test Results - Date: TueOct 08 2024 - Left heart catheterization: Negative - RICHIE (Transesophageal echocardiogram): Performed, results pending Assessment & Plan [facility] halina yusuf is a patient with paroxysmal atrial fibrillation and congenital heart disease presenting status post-CPR and experienced another cardiac arrest, currently intubated in cardiogenic shock. Cardiac arrest Assessment: Patient experienced a cardiac arrest last night, requiring CPR and intubation. This event occurred shortly after being discharged from [facility] in [place] with prescriptions for amiodarone, Lipitor, and Lasix, which the patient did not take. The patient has a history of paroxysmal atrial fibrillation and congenital heart disease. During the arrest, ventricular tachycardia was observed, necessitating electrical cardioversion. A left heart catheterization was performed today with negative results. A transesophageal echocardiogram was also conducted, results pending. The patient remains intubated and in cardiogenic shock, requiring vasopressor support. Plan: - Continue mechanical ventilation - Maintain on vasopressor support with epinephrine drip, currently at 6 mcg/min - Continue fentanyl drip at 175 mcg/hr for sedation - Continue amiodarone drip at 1 mg/min for arrhythmia management - Restart heparin drip post-cardiac catheterization - Plan for ICD placement - Continue anti-arrhythmic management - Monitor and optimize hemodynamics - Await and review results of transesophageal echocardiogram - Reassess neurological status and consider timing for extubation Congenital heart disease with valvular abnormality Assessment: Patient has a known history of congenital heart disease, as reported by the son. Echocardiogram review suggests a tight mitral valve, possibly due to a previously placed ring that has now become constrictive. The patient has undergone previous cardiac surgery, including coronary artery bypass grafting with grafts to the left anterior descending artery, diagonal branch, and obtuse marginal branch. The left main coronary artery has been previously dissected. Plan: - Review complete echocardiogram report when available - Consult with cardiothoracic surgery regarding potential valve intervention - Continue close cardiac monitoring - Optimize medical management of heart failure and arrhythmias Plan discussed with: Other (CEE CHIANG) CARLOS WHITAKER MD Oct 08, 2024 20:59
[2024-10-08] MEDS: MEXILETINE HYDROCHLORIDE 150 MG CAP GT SCH (21:45)
[2024-10-08] MEDS: ACETAMINOPHEN 500 MG TAB or CAP PO PRN (23:41)
[2024-10-09] VITALS (108 sets, daily range): BP systolic 86–117; BP diastolic 39–71; PULSE 79–93; RESP 15–26; TEMP 99.1–101.7; O2SAT 98–100
[2024-10-09 04:27] LABS: Hematocrit 27.0 % (36.0-46.0); Hemoglobin 8.8 g/dL (12.2-16.2); Mean Corpuscular Hemoglobin 30.9 pg (28.0-32.0); Mean Corpuscular Volume 94.6 fL (80.0-100.0); Nucleated Red Blood Cells % 0.2 %
[2024-10-09 04:29] LABS: Chloride 103 mmol/L (98-107); Potassium 3.7 mmol/L (3.5-5.1)
[2024-10-09 04:30] LABS: Anion Gap 9 (5-15); Carbon Dioxide 23 mmol/L (20-31)
[2024-10-09 04:36] LABS: BUN/Creatinine Ratio 14.5 (10.0-20.0); Blood Urea Nitrogen 12 mg/dL (9-23)
[2024-10-09 04:44] LABS: INR 1.26 (0.9-1.15); Partial Thromboplastin Time 68.9 SEC (24.5-34.5); Prothrombin Time 13.1 sec (9.3-11.8)
[2024-10-09 04:45] LABS: Calcium 7.6 mg/dL (8.7-10.4); Glucose 114 mg/dL (74-106); Sodium 135 mmol/L (136-145)
--- NOTE | 2024-10-09 04:53 | DVH ---
CHEST RADIOGRAPH Indication: INTUBATED Technique: Single frontal view of the chest was obtained COMPARISON: XY CHEST XRAY 1 VIEW on DOS: 10/08/24, XY CHEST XRAY 1 VIEW on DOS: 10/08/24, XY CHEST PORT ABLE on DOS: 10/07/24 FINDINGS: Lines and Tubes: Endotracheal tube slightly retracted such that the tip projects approximately 3.0 cm above the level of the tyler. Remaining lines and tubes unchanged. Lungs: Stable appearing small left effusion and mild diffuse increased prominence of the pulmonary va sculature. No evidence of focal consolidation. No pneumothorax. Cardiomediastinal contours: Cardiomegaly status post median sternotomy. Bones: Unremarkable IMPRESSION: 1. Stable cardiomegaly, small left pleural effusion and mild diffuse increased prominence of the pulm onary vasculature. 2. Repositioned endotracheal tube as above. Remaining lines and tubes unchanged.
--- NOTE | 2024-10-09 06:58 | DVHINCON2 ---
Date of service: Oct 09, [address] Guerrero Reason for Consultation Evaluation for AICD Implantation History of Present Illness This is a 54-year old female who initially presented 10/07/2024 due to witnessed syncope. As per records and having spoke with family members (son/father), patient had collapsed in the kitchen as witnessed by nearby family members whom had initiated CPR. EMS had been called for further medical attention and upon their arrival reports indicate the patient had been found in ventricular fibrillation for which she was subsequently shocked by EMS and upon rhythm strip analysis of the event, rhythm itself does reveal evidence for what appears to be ventricular fibrillation requiring shock x 1 which upon ED arrival 12-lead electrocardiogram had revealed sinus rhythm at 84bpm, QRS of 96ms with a QTC interval of 495 ms. Upon ED arrival patient was intubated and initiated on Amiodarone infusion for rhythm management. Patient was later admitted to the ICU for close observation/management and had been noted to experience episodes of ventricular tachycardia that had degenerated into ventricular fibrillation resulting in cardiac arrest requiring initiation of CPR/ACLS protocol which the patient was subsequently shocked x 1 resulting in ROSC. Patient did undergo subs equent cardiac catheterization 10/08/2024 by Interventional Cardiology services revealing patent RICHMOND to LAD, patent SVG to obtuse marginal, proximal disease involving LAD and LCX. Echocardiogram 10/07/2024 had revealed a severely reduced LVEF function of 15-20%, dilated LV with severe global dysfunction, biatrial enlargement, moderate mitral insufficiency with mild to moderate aortic insufficiency. TTE itself had questioned potential presence of mitral ring and potential underlying component of mitral stenosis which subsequent RICHIE 10/08/2024 had revealed evidence of mitral ring with up to moderate mitral stenosis/mitral insufficiency in addition to moderate aortic insufficiency. Throughout course of present admission, patient has been furthermore noted to experience episodes of paroxysmal atrial fibrillation for which she has been maintained on anticoagulation therapy for CVA prophylaxis. As the patient presented and was found to experience episodes of ventricular fibrillation requiring 2 shocks, Electrophysiology services were later involved by Interventional Cardiology request to evaluate the patient for potential AICD implantation. Reported past medical history includes congenital heart disease, coronary artery disease status post previous bypass surgery Echocardiogram: (10/07/2024) revealed lvef 15-20% dilated LV severe global dysfunction mild RV dysfunction biatrial enlargement mild moderate MAC, moderate mitral regurg mild to moderate aortic regug (images of echo reviewed and questioned presence of mitral ring and also some component (moderate of Mitral stenosis) Cardiac Catheterization: (10/08/2024) revealed Patent RICHMOND to LAD; Patent SVG to obtuse marginal; LVEF of 20% with increased EDP; Proximal disease in LAD/LCX Transesophageal Echocardiogram (10/08/2024) revealed was performed: Consistent with severely reduced LVEF. Consistent with previously implanted Mitral ring, Up to moderate Mitral stenosis/Mitral Regurgitation and also Moderate Aortic insufficiency. Past Medical History Reviewed Past Surgical History Reviewed Family History: Alcoholism Cardiovascular disease G8 MOTHER Allergies: Coded Allergies: NO KNOWN ALLERGIES (Unverified , 10/07/24) Current Medications Current Medications Medications (Trade) Dose Ordered Sig/Liliam Route PRN Reason Start Time Stop Time Status Last Admin Aspirin 81 mg DAILY PO 10/08/24 10:00 10/08/24 10:35 Potassium Chloride 100 ml @ 50 mls/hr Q2H IV 10/08/24 08:00 10/08/24 11:59 DC 10/08/24 11:00 Mexiletine HCl (Mexitil) 150 mg TID GT 10/08/24 22:00 10/09/24 05:57 Ceftriaxone Sodium/Dextrose 50 ml @ 50 mls/hr DAILY@2200 IV 10/08/24 22:00 10/08/24 22:00 Heparin Sodium/ Dextrose 250 ml @ 12 mls/hr [id number] IV 10/08/24 21:00 10/08/24 21:45 Acetaminophen (Tylenol Tablet Or Capsule) 500 mg Q6HP PRN PO MILD PAIN (1-3 PAIN SCALE) 10/08/24 22:30 10/08/24 23:41 Review of Systems Unable to perform due to intubated status Vital Signs Vital Signs Date Time Temp Pulse Resp B/P (MAP) Pulse Ox O2 Delivery O2 Flow Rate FiO2 10/09/24 06:45 99.5 86 18 100/61 (74) 100 211.1 10/09/24 06:10 30 10/09/24 06:00 Mechanical Ventilator+ Physical Exam Heart: S1 and S2 regular. The patient is in sinus rhythm. Lungs: Scattered rhonchi. Abdomen: Benign. Extremities: Distal pulses palpable, 2+. With evidence for minimal edema Labs/Diagnostic Data Labs Test 10/09/24 02:40 10/08/24 07:17 10/08/24 03:12 10/08/24 00:36 Range/Units White Blood Count 20.0 H 4.4-10.8 10^3/uL Red Blood Count 2.86 L 4.0-5.20 10^6/uL Hemoglobin 8.8 L 12.2-16.2 g/dL Hematocrit 27.0 L 36.0-46.0 % Mean Corpuscular Volume 94.6 80.0-100.0 fL Mean Corpuscular Hemoglobin 30.9 28.0-32.0 pg Mean Corpuscular Hemoglobin Concent 32.7 32.0-36.0 g/dL Red Cell Distribution Width 20.2 H 11.8-14.3 % Platelet Count 219 140-450 10^3/uL Mean Platelet Volume 9.5 6.9-10.8 fL Neutrophils (%) (Auto) 73.4 37.0-80.0 % Lymphocytes (%) (Auto) 20.4 10.0-50.0 % Monocytes (%) (Auto) 5.7 0.0-12.0 % Eosinophils (%) (Auto) 0.3 0.0-7.0 % Basophils (%) (Auto) 0.2 0.0-2.0 % Neutrophils # (Auto) 14.7 H 1.6-8.6 10 ^3/uL Lymphocytes # (Auto) 4.1 0.4-5.4 10 ^3/uL Monocytes # (Auto) 1.1 0-1.3 10 ^3/uL Eosinophils # (Auto) 0.1 0-0.8 10 ^3/uL Basophils # (Auto) 0 0-0.2 10 ^3/uL Nucleated Red Blood Cells 0.2 % Prothrombin Time 13.1 H 9.3-11.8 sec Prothrombin Time INR 1.26 H 0.9-1.15 Activated Partial Thromboplast Time 68.9 H 24.5-34.5 SEC Sodium Level 135 L 136-145 mmol/L Potassium Level 3.7 3.5-5.1 mmol/L Chloride Level 103 98-107 mmol/L Carbon Dioxide Level 23 20-31 mmol/L Anion Gap 9 5-15 Blood Urea Nitrogen 12 9-23 mg/dL Creatinine 0.83 0.550-1.02 mg/dL Glomerular Filtration Rate Calc 83 >90 mL/min BUN/Creatinine Ratio 14.5 10.0-20.0 Serum Glucose 114 H 74-106 mg/dL Calcium Level 7.6 L 8.7-10.4 mg/dL Blood Gas Specimen Type Arterial Blood Gas Sample Site Right radial Blood Gas Patient Temperature 37.0 Arterial Blood Date Drawn [id number] Arterial Blood pH 7.497 H 7.350-7.450 Arterial Blood Partial Pressure CO2 26.4 L 32.0-45.0 mmHg Arterial Blood Partial Pressure O2 99.5 83.0-108.0 mmHg Arterial Blood HCO3 20.0 L 21.0-28.0 mmol/L Arterial Blood Oxygen Saturation 97.4 94.0-98.0 % Arterial Blood Base Excess -2.3 L -2.0-3.0 mmol/L Arterial Blood Oxyhemoglobin 97.0 94.0-98.0 % Arterial Blood Carboxyhemoglobin 0.3 L 0.5-1.5 % Arterial Blood Methemoglobin 0.1 0.0-1.5 % Trung Test Yes Blood Gas Total Hemoglobin 10.30 L 12.0-16.0 g/dL Blood Gas Set Respiration Rate 18.0 Blood Gas Modality Vent - ac FiO2 % 30.0 Blood Gas Tidal Volume 450.0 Total Bilirubin 0.6 0.2-1.0 mg/dL Aspartate Amino Transferase (AST) 19 13-40 U/L Alanine Aminotransferase (ALT) 13 7-40 U/L Alkaline Phosphatase 133 H 46-116 U/L Total Protein 5.5 L 5.7-8.2 g/dL Albumin 3.0 L 3.2-4.8 g/dL Magnesium Level 3.0 #H 1.6-2.6 mg/dL Test 10/07/24 22:13 10/07/24 14:09 10/07/24 10:56 10/07/24 06:17 Range/Units Blood Gas Spontaneous Rate 20 Blood Gas Spontaneous Tidal Volume 488 Blood Gas PEEP or CPAP 5.0 Blood Gas Critical Value Read Back Yes Blood Gas Notified Whom Md sarkis rodas Blood Gas Notified Time [id number] Blood Gas Notified By Gerry crane Troponin I High Sensitivity 117 *H </=34 ng/L B-Type Natriuretic Peptide 457.16 0-100 pg/mL Triglycerides Level 71 < 150 mg/dL Cholesterol Level 66 < 200 mg/dL LDL Cholesterol 31 < 100 mg/dL HDL Cholesterol 21 L 40-59 mg/dL Urine Color Yellow Yellow Urine Clarity Turbid H Clear Urine pH 6.0 5.0-9.0 Urine Specific Sullivan 1.033 1.001-1.035 Urine Protein 3+ H Negative Urine Ketones Trace Negative Urine Blood 1+ H Negative /uL Urine Nitrite Negative Negative Urine Bilirubin Negative Negative Urine Urobilinogen 3 H Negative mg/dL Urine Leukocyte Esterase Negative Negative /uL Urine Glucose 1+ H Normal mg/dL Urine Opiates Screen Neg NEGATIVE Urine Fentanyl Screen Neg NEGATIVE Urine Barbiturates Screen Neg NEGATIVE Urine Phencyclidine Screen Neg NEGATIVE Urine Amphetamines Screen Neg NEGATIVE Urine Benzodiazepines Screen Neg NEGATIVE Urine Cocaine Screen Neg NEGATIVE Urine Cannabinoids Screen Neg NEGATIVE Test 10/07/24 05:40 10/07/24 04:12 Range/Units Lactic Acid Level 2.0 0.4-2.0 mmol/L Differential Total Cells Counted 100.0 100 Neutrophils % (Manual) 54 37.0-80.0 Band Neutrophils % (Manual) 1 Lymphocytes % (Manual) 37 10.0-50.0 Monocytes % (Manual) 7 0-12 Eosinophils % (Manual) 1 0-7 Basophils % (Manual) 0 0.0-2.0 Metamyelocytes % (manual) 0 Myelocytes % (Manual) 0 Promyelocytes % (Manual) 0 Blast Cells % (Manual) 0 Reactive Lymphocytes 0 Platelet Estimate Adequate Microbiology Date/Time Source Procedure Growth Status 10/07/24 16:50 Nose MRSA Screen - Final Complete 10/07/24 05:40 Blood Blood Culture - Preliminary NO GROWTH AFTER 48 HOURS OF INCUBATION. Resulted 10/07/24 04:26 Sputum Gram Stain - Final Resulted 10/07/24 04:26 Sputum Respiratory Culture - Preliminary Resulted Plan/Recommendation ASSESSMENT: This is a 54-year old female who initially presented 10/07/2024 due to witnessed syncope. As per records and having spoke with family members (son/father), patient had collapsed in the kitchen as witnessed by nearby family members whom had initiated CPR. EMS had been called for further medical attention and upon their arrival reports indicate the patient had been found in ventricular fibrillation for which she was subsequently shocked by EMS and upon rhythm strip analysis of the event, rhythm itself does reveal evidence for what appears to be ventricular fibrillation requiring shock x 1 which upon ED arrival 12-lead electrocardiogram had revealed sinus rhythm at 84bpm, QRS of 96ms with a QTC interval of 495 ms. Upon ED arrival patient was intubated and initiated on Amiodarone infusion for rhythm management. Patient was later admitted to the ICU for close observation/management and had been noted to experience episodes of ventricular tachycardia that had degenerated into ventricular fibrillation resulting in cardiac arrest requiring initiation of CPR/ACLS protocol which the patient was subsequently shocked x 1 resulting in ROSC. Patient did undergo subsequent cardiac catheterization 10/08/2024 by Interventional Cardiology services revealing patent RICHMOND to LAD, patent SVG to obtuse marginal, proximal disease involving LAD and LCX. Echocardiogram 10/07/2024 had revealed a severely reduced LVEF function of 15-20%, dilated LV with severe global dysfunction, biatrial enlargement, moderate mitral insufficiency with mild to moderate aortic insufficiency. TTE itself had questioned potential presence of mitral ring and potential underlying component of mitral stenosis which subsequent RICHIE 10/08/2024 had revealed evidence of mitral ring with up to moderate mitral stenosis/mitral insufficiency in addition to moderate aortic insufficiency. Throughout course of present admission, patient has been furthermore noted to experience episodes of paroxysmal atrial fibrillation for which she has been maintained on anticoagulation for CVA prophylaxis. As the patient presented and was found to experience episodes of ventricular fibrillation requiring a total of 2 shocks, Electrophysiology services were later involved by Interventional Cardiology request to evaluate the patient for potential AICD implantation. Reported past medical history includes congenital heart disease, coronary artery disease status post previous bypass surgery Echocardiogram: (10/07/2024) revealed lvef 15-20% dilated LV severe global dysfunction mild RV dysfunction biatrial enlargement mild moderate MAC, moderate mitral regurg mild to moderate aortic regug (images of echo reviewed and questioned presence of mitral ring and also some component (moderate of Mitral s tenosis) Cardiac Catheterization: (10/08/2024) revealed Patent RICHMOND to LAD; Patent SVG to obtuse marginal; LVEF of 20% with increased EDP; Proximal disease in LAD/LCX Transesophageal Echocardiogram (10/08/2024) revealed was performed: Consistent with severely reduced LVEF. Consistent with previously implanted Mitral ring, Up to moderate Mitral stenosis/Mitral Regurgitation and also Moderate Aortic insufficiency. Syncope, witnessed Cardiac arrest, status post ROSC Ventricular fibrillation, requiring shock x 2 Ventricular tachycardia with degeneration to ventricular fibrillation Systolic heart failure, severely reduced LV function of 15-20% Paroxysmal atrial fibrillation, currently sinus rhythm Coronary artery disease, s/p previous 2-V CABG Valvular heart disease, s/p previous mitral ring Beta-hemolytic group B streptococcus QRS < 120 milliseconds Secondary prevention ELECTROPHYSIOLOGY SUGGESTIONS FOR MANAGEMENT: Recognizing the above, patient herself benefits from undergoing AICD implantation for secondary prevention against sudden cardiac . As patient remains intubated on mechanical ventilation/sedation, benefits, risks, alternatives were discussed at length with the patient son who at this point would like to consider the matter further and discuss it with the patient father prior to proceeding with a decision. Therefore, will proceed with medical management during the interim and await tentative decision by family. Of note, patient was found to have leukocytosis which sputum culture had revealed evidence for beta-hemolytic group B streptococcus subsequently initiated on IV antibiotic therapy as managed by primary team. Blood cultures 10/07/2024 at this point reveal no growth to date. Recognizing evidence for acute infection, will request for infectious disease consultation/clearance prior to proceeding with potential plan of undergoing AICD implantation. To proceed with IV antibiotic therapy during the interim. Recognizing co-morbidities, long-term continuation of anticoagulation is advised for CVA prophylaxis of PAF. Proceed with Heparin infusion (for now). Proceed with IV Amiodarone infusion (for now). Proceed with Mexiletine (for now). To sustain potassium levels greater than 4.0. To sustain magnesium levels greater than 2.0. Proceed with close rate and rhythm surveillance during the interim. Remainder of cardiac management as per Interventional Cardiology services. Will proceed to follow from an EP perspective. GDMT for systolic heart failure as current conditions permit Proceed with close rate and rhythm surveillance Proceed with close hemodynamic surveillance Proceed with optimized blood pressure control Transfuse to sustain HGB level above 7.0 Sustain Magnesium level greater than 2.0 Sustain Potassium level greater than 4.0 Follow up renal function and electrolytes Management of ongoing concurrent medical conditions as per primary team Management of beta-hemolytic group B strep as per primary team/ID Management comorbidities as per primary team Management in the ICU Follow up sales development consultant recommendations Will proceed to follow from an EP perspective Further recommendations per clinical progression All available diagnostic labs, EKG's, and images were personally reviewed Patient's status, findings, and plan of care was reviewed and discussed with supervising physician Dr. Armstrong, who is in agreement with current plan of care. Plan of care discussed with and agreed upon by family / primary RN Prognosis: Guarded Thank you for allowing me to participate in the care of this patient. Further recommendations based on patients clinical course and progression, primary attending, and other consultants. Will continue to follow with primary attending. If you have any questions or concerns, please do not hesitate to contact me. A total of 75 minutes was spent reviewing the patient record, examining the patient, making a diagnostic and therapeutic plan, discussing this plan with medical personnel, following up on diagnostic studies and following the patient for clinical stability excluding any and all procedures. At least 50% of this time was spent in direct, [id number] contact. Plan discussed with: Other (Primary RN and Patient Son) TUCKER CRUZ Oct 09, 2024 06:58
--- NOTE | 2024-10-09 08:06 | DVHPN2 ---
Progress Note - Dictate Date Seen: Oct 09, 2024 Medical Necessity Reason Pt with a Central, PICC or Fol: Yes vital signs Vital Sign Date Time Temp Pulse Resp B/P (MAP) Pulse Ox O2 Delivery O2 Flow Rate FiO2 10/09/24 06:45 99.5 86 18 100/61 (74) 100 211.1 10/09/24 06:10 30 10/09/24 06:00 Mechanical Ventilator+ Total Intake and Output 10/08/24 10/08/24 10/09/24 15:00 23:00 07:00 Intake Total 429.24 ml 529.32 ml 541.06 ml Output Total 250 ml 850 ml Balance 429.24 ml 279.32 ml -308.94 ml medications Current Medications Medications Dose Ordered Sig/Liliam Route Start Time Stop Time Status Last Admin Dose Admin Midazolam HCl 50 ml @ 1 mls/hr Q24H IV 10/07/24 04:45 10/08/24 03:40 3 MLS/HR Fentanyl Citrate 250 ml @ 2.5 mls/hr Q24H IV 10/07/24 06:15 10/08/24 23:42 17.5 MLS/HR Ondansetron HCl 4 mg Q4HP PRN IV 10/07/24 10:00 Nitroglycerin 0.4 mg Q5MINP PRN SL 10/07/24 10:00 Morphine Sulfate 2 mg Q30M PRN IV 10/07/24 10:00 Pantoprazole Sodium 40 mg DAILY IV 10/07/24 10:00 10/08/24 10:33 40 MG Norepinephrine Bitartrate 250 ml @ 3.75 mls/hr Q24H IV 10/07/24 12:15 10/08/24 12:53 11.25 MLS/HR Furosemide 40 mg BIDD IV 10/07/24 18:00 10/09/24 06:00 40 MG Atorvastatin Calcium 40 mg HS PO 10/07/24 22:00 10/08/24 21:45 40 MG Aspirin 81 mg DAILY PO 10/08/24 10:00 10/08/24 10:35 81 MG Mexiletine HCl 150 mg TID GT 10/08/24 22:00 10/09/24 05:57 150 MG Ceftriaxone Sodium/Dextrose 50 ml @ 50 mls/hr DAILY@2200 IV 10/08/24 22:00 10/08/24 22:00 50 MLS/HR Heparin Sodium/ Dextrose 250 ml @ 12 mls/hr [id number] IV 10/08/24 21:00 10/08/24 21:45 12 MLS/HR Acetaminophen 500 mg Q6HP PRN PO 10/08/24 22:30 10/08/24 23:41 500 MG laboratory and microbiology Laboratory Tests 10/09/24 02:40 Test 10/09/24 02:40 Range/Units Serum Glucose 114 H 74-106 mg/dL Assessment/Plan Patient is a 54-year-old female who was brought to the hospital for witnessed syncope. She is intubated and is being managed in ICU. Information was obtained by reviewing the chart and communicating with patient's son (over the phone). Family recognized witnessed syncope and started CPR and called EMS. Reportedly, EMS found the patient in ventricular fibrillation and shocked the patient and brought the patient to the hospital. Patient was intubated in emergency room and transferred to ICU. Patient was on amiodarone drip. Later the patient had ventricular tachycardia (Systane). High sensitive troponin had been minimally/flatly elevated. Presentation was not in favor of acute coronary syndrome. Cardiology is involved for cardiac aspects of care. Intubated. Noncommunicative. No JVD. Mucosa pale. No carotid bruit. Scattered rhonchi in the lungs is heard. Cardiac: Regular, no thrill. Systolic murmur 2/6 in apex is heard. Abdomen is soft. No edema in extremities. Past medical history as per son: Congenital heart disease, status post bypass WBC: 14.5 - 11.9 - 18.8 - 20.0 Hemoglobin: 10.1 - 9.6 - 9.2 - 8.8 Creatinine: 0.95 - 0.93 - 0.87 - 0.83 - 0.83 Potassium: 3.4 - 4.0 - 4.6 - 3.5 - 3.3 - 4.1 - 3.7 Magnesium: 2.0 - 1.6 - 2.0 - 3.0 Troponin (high sensitive): 141 - 138 - 117 BNP: 457.16 Chest x-ray revealed: Lines and Tubes: Endotracheal tube tip projects approximately 1.4 cm above the level of the tyler. Enteric catheter courses below the lateral of the diaphragm and terminates beyond the inferior margin of the image. Right internal jugular central venous catheter terminates within the distal superior vena cava. Lungs: Moderate diffuse increased prominence of the pulmonary vasculature without evidence of focal consolidation. Pleura: No effusion. No pneumothorax. Cardiomediastinal contours: Cardiomegaly. Bones: Unremarkable IMPRESSION: 1. Cardiomegaly and diffuse increased prominence of the pulmonary vasculature. 2. Lines and tubes as above. Repeat chest x-ray revealed: IMPRESSION: 1. Endotracheal tube tip 1.6 cm above the tyler; consider 2 cm retraction 2. Mild pulmonary vascular congestion. Moderate cardiomegaly. Repeat chest xry revealed: IMPRESSION: Endotracheal tube tip 1.6 cm above the tyler; consider 2 cm retraction Mild pulmonary vascular congestion. Moderate cardiomegaly. Repeat chest xry revealed: IMPRESSION: 1. Stable cardiomegaly, small left pleural effusion and mild diffuse increased prominence of the pulmonary vasculature. 2. Repositioned endotracheal tube as above. Remaining lines and tubes unchanged. CT of the head revealed: IMPRESSION: No acute intracranial abnormality. Echocardiogram reported: lvef 15-20% dilated LV severe global dysfunction mild RV dysfunction biatrial enlargement mild moderate MAC, moderate mitral regurg mild to moderate aortic regug (images of echo reviewed and questioned presence of mitral ring and also some component (moderate of Mitral stenosis) EKG revealed sinus rhythm Telemetry revealed occasions of atrial fibrillation. There was occasional sustained ventricular tachycardia. EMS tele monitor revealed ventricular fibrillation for which the patient was shocked LHC revealed: Patent RICHMOND to LAD; Patent SVG to obtuse marginal; LVEF of 20% with increased EDP; Proximal disease in LAD/LCX RICHIE was performed: Consistent with severely reduced LVEF. Consistent with previously implanted Mitral ring, Up to moderate Mitral stenosis/Mitral Regurgitation and also Moderate Aortic insufficiency. Patient is a 54-year-old female who presented with witnessed syncope. She was found to have ventricular fibrillation for which was shocked. Later had repeated episode of sustained ventricular tachycardia. Patient has been kept in ICU. Does have baseline history of coronary artery disease for which has had bypass surgery. Left heart catheterization was performed which revealed patent RICHMOND and patent SVG. ACS is not considered at this point. It is of note that the patient's echocardiogram reveals significantly use systolic function. Valvular heart disease is considered. Findings are in favor of previously implanted mitral ring. By reviewing the echo images, component of up to moderate mitral stenosis could not be ruled out. LHC was performed that ruled out any active specific ischemia as an etiology for presentation. Syncope V-fib s/p shock Sustained V-tach Paroxysmal A-fib VHD, s/p Mitral ring Systolic heart failure Cardiac suggestion for management: Manage in ICU Follow up electrolytes and kidney function test and correct abnormalities Full anticoagulation (a-fib with high CHADS-Vasc score). On Heparin drip for now IV Amiodarone Mexiletine EP Following ICD implantation as per EP Pulmonary Evaluation for respiratory failure Provide previous medical records from reaching out to previous hospitals in [facility]... Further evaluation and management depends on the above and clinical course. A total of 75 minutes was spent reviewing the patient record, examining the patient, making a diagnostic and therapeutic plan, discussing this plan with medical personnel, following up on diagnostic studies and following the patient for clinical stability excluding any and all procedures. At least 50% of this time was spent in direct, [id number] contact. Thank you for allowing me to participate in this patient's care. Further recommendations will depend on patient's clinical course. Please do not hesitate to contact me if you have any questions or concerns. This medical document was created using electronic medical record system with [employer] computerized dictation system. Although this document has been carefully reviewed, there may still be some phonetic and typographical errors. These areas are purely typographical due to the imperfection of the software programs, and do not reflect any compromise in the patient's medical care. Plan discussed with: Other (nurse) CORDELL VERA MD Oct 09, 2024 08:06
--- NOTE | 2024-10-09 09:28 | DVHINCON2 ---
Date of service: Oct 09, 2024 Referring Physician Gissel Reason for Consultation Status post CPR, arrest History of Present Illness Ms. Smith is a 54 years old female who was brought to the [facility] on 10/07/2024 with a chief complaint of cardiopulmonary arrest/status post CPR. At this time, the patient is intubated, eyes open, but she is able to follow some of my verbal commands. When she was sitting at the table, she collapsed in from her significant other, she has been arrived and/CPR, and for medical ventricular tachycardia with VFib, the patient's resuscitated, intubated UDS, 10/07/2024: Negative Urinalysis, 10/07/2024: Leukocyte esterase: Negative WBC/HB/PLT/MCV, 10/09/2024: 20/8.8/219/94.6 PT/INR/PTT, 10/08/2024: 12.4/1.19/72.7, 10/09/2024: 13.1/1.26/68.9 CMP, 10/08/2024: Unremarkable Troponin one high sensitivity, 10/07/2024: 141, 138, 117 TG/HDL/LDL/HDL, 10/07/24: 71/66/31/21 Echocardiogram, 10/07/2024: lvef 15-20% dilated LV severe global dysfunction mild RV dysfunction biatrial enlargement mild moderate MAC, moderate mitral regurg mild to moderate aortic regug RICHIE, 10/08/2024: 1. Left ventricle: Dilated LV was seen. LVEF was 25%. There was diffuse hypokinesis of left ventricle. 2. Right ventricle: RV was mildly dilated. 3. Left atrium: LA enlarged 4. Right atrium: RA was enlarged. 5. Mitral valve: Mitral was thickened with reduced opening. Moderate Mitral regurgitation was seen. Planinomentry of valve (TTE images also obtained) revealed MVA of 2.1 cm. Mean pressure gradient (obtained from limited TTE images) was 5. Images are consistent with previously implanted Ring in Mitral position. Consistent with up to Moderate Mitral stenosis. . There was no vegetation 6. Left atrial appendage: No evidence of thrombus. 7. Aortic valve: Trileaflet valve. No stenosis. Up to moderate Aortic Insufficiency was seen. There was no vegetation 8. Pulmonic valve: Trivial pulmonic insufficiency. No significant stenosis. 9. Tricuspid valve: Mild tricuspid regurgitation. There was no vegetation 10. Interatrial septum: Negative color flow for right to left shunt was observed. Bubble study was performed: negative for shunt 11. Pericardium: No significant effusion. 12. Thoracic aorta: No significant plaquing. CT head, 10/07/2024: No acute intracranial abnormality Past Medical History Unobtainable Past Surgical History Unobtainable Family History: Alcoholism Cardiovascular disease G8 MOTHER Family History Heart disease, alcohol problem Social History Non-Smoker Alcohol: Sober Drugs: Denies Drug Use Allergies: Coded Allergies: NO KNOWN ALLERGIES (Unverified , 10/07/24) Current Medications Current Medications Medications (Trade) Dose Ordered Sig/Liliam Route PRN Reason Start Time Stop Time Status Last Admin Aspirin 81 mg DAILY PO 10/08/24 10:00 10/08/24 10:35 Mexiletine HCl (Mexitil) 150 mg TID GT 10/08/24 22:00 10/09/24 05:57 Ceftriaxone Sodium/Dextrose 50 ml @ 50 mls/hr DAILY@2200 IV 10/08/24 22:00 10/08/24 22:00 Heparin Sodium/ Dextrose 250 ml @ 12 mls/hr [id number] IV 10/08/24 21:00 10/08/24 21:45 Acetaminophen (Tylenol Tablet Or Capsule) 500 mg Q6HP PRN PO MILD PAIN (1-3 PAIN SCALE) 10/08/24 22:30 10/08/24 23:41 Azithromycin 250 ml @ 125 mls/hr DAILY IV 10/09/24 10:00 Review of Systems Unobtainable Vital Signs Vital Signs Date Time Temp Pulse Resp B/P (MAP) Pulse Ox O2 Delivery O2 Flow Rate FiO2 10/09/24 08:04 86 18 99/62 (74) 99 30 10/09/24 08:00 Mechanical Ventilator+ 10/09/24 06:45 99.5 211.1 Physical Exam Examined GENERAL EXAM: General: the patient is well developed and nourished. No acute distress. Intubated HEENT: Normocephalic, neck is supple, no carotid bruits. No mass. RESPIRATORY: Normal respiratory effort with symmetrical lung expansion. Lungs clear to auscultation. CARDIOVASCULAR: Regular rate and rhythm with no murmurs. S1, S2. ABDOMEN: Soft, nontender, normal bowel sound NEUROLOGICAL: MENTAL STATUS: Subjective SPEECH, LANGUAGE, HIGHER CORTICAL FUNCTION: Intubated CRANIAL NERVES: #2: Deferred #3,4,6: Pupils are equal, round and reactive. He has some conjugated eye movement #5: Facial sensation fine in all three divisions bilaterally. #7: Facial muscles symmetrical and strength intact. #8: Deferred #9,10: Deferred #11: Different #12: Deferred SENSATION: Responsive to painful stimuli MOTOR: Normal tone in the upper and lower extremity. Normal muscle bulk. No fasciculations. No abnormal movements or posturing. No spontaneous extremity movement REFLEXES: Deep tendon reflexes are symmetrical. No pathological reflexes. CEREBELLAR/COORDINATION: Deferred GAIT/STATION: deferred. Labs/Diagnostic Data Labs Test 10/09/24 08:49 10/09/24 02:40 10/08/24 07:17 10/08/24 03:12 Range/Units White Blood Count 20.0 H 4.4-10.8 10^3/uL Red Blood Count 2.86 L 4.0-5.20 10^6/uL Hemoglobin 8.8 L 12.2-16.2 g/dL Hematocrit 27.0 L 36.0-46.0 % Mean Corpuscular Volume 94.6 80.0-100.0 fL Mean Corpuscular Hemoglobin 30.9 28.0-32.0 pg Mean Corpuscular Hemoglobin Concent 32.7 32.0-36.0 g/dL Red Cell Distribution Width 20.2 H 11.8-14.3 % Platelet Count 219 140-450 10^3/uL Mean Platelet Volume 9.5 6.9-10.8 fL Neutrophils (%) (Auto) 73.4 37.0-80.0 % Lymphocytes (%) (Auto) 20.4 10.0-50.0 % Monocytes (%) (Auto) 5.7 0.0-12.0 % Eosinophils (%) (Auto) 0.3 0.0-7.0 % Basophils (%) (Auto) 0.2 0.0-2.0 % Neutrophils # (Auto) 14.7 H 1.6-8.6 10 ^3/uL Lymphocytes # (Auto) 4.1 0.4-5.4 10 ^3/uL Monocytes # (Auto) 1.1 0-1.3 10 ^3/uL Eosinophils # (Auto) 0.1 0-0.8 10 ^3/uL Basophils # (Auto) 0 0-0.2 10 ^3/uL Nucleated Red Blood Cells 0.2 % Sodium Level 135 L 136-145 mmol/L Potassium Level 3.7 3.5-5.1 mmol/L Chloride Level 103 98-107 mmol/L Carbon Dioxide Level 23 20-31 mmol/L Anion Gap 9 5-15 Blood Urea Nitrogen 12 9-23 mg/dL Creatinine 0.83 0.550-1.02 mg/dL Glomerular Filtration Rate Calc 83 >90 mL/min BUN/Creatinine Ratio 14.5 10.0-20.0 Serum Glucose 114 H 74-106 mg/dL Calcium Level 7.6 L 8.7-10.4 mg/dL Blood Gas Specimen Type Arterial Blood Gas Sample Site Right radial Blood Gas Patient Temperature 37.0 Arterial Blood Date Drawn [id number] Arterial Blood pH 7.497 H 7.350-7.450 Arterial Blood Partial Pressure CO2 26.4 L 32.0-45.0 mmHg Arterial Blood Partial Pressure O2 99.5 83.0-108.0 mmHg Arterial Blood HCO3 20.0 L 21.0-28.0 mmol/L Arterial Blood Oxygen Saturation 97.4 94.0-98.0 % Arterial Blood Base Excess -2.3 L -2.0-3.0 mmol/L Arterial Blood Oxyhemoglobin 97.0 94.0-98.0 % Arterial Blood Carboxyhemoglobin 0.3 L 0.5-1.5 % Arterial Blood Methemoglobin 0.1 0.0-1.5 % Trung Test Yes Blood Gas Total Hemoglobin 10.30 L 12.0-16.0 g/dL Blood Gas Set Respiration Rate 18.0 Blood Gas Modality Vent - ac FiO2 % 30.0 Blood Gas Tidal Volume 450.0 Total Bilirubin 0.6 0.2-1.0 mg/dL Aspartate Amino Transferase (AST) 19 13-40 U/L Alanine Aminotransferase (ALT) 13 7-40 U/L Alkaline Phosphatase 133 H 46-116 U/L Total Protein 5.5 L 5.7-8.2 g/dL Albumin 3.0 L 3.2-4.8 g/dL Test 10/08/24 00:36 10/07/24 22:13 10/07/24 14:09 10/07/24 10:56 Range/Units Magnesium Level 3.0 #H 1.6-2.6 mg/dL Blood Gas Spontaneous Rate 20 Blood Gas Spontaneous Tidal Volume 488 Blood Gas PEEP or CPAP 5.0 Blood Gas Critical Value Read Back Yes Blood Gas Notified Whom Md sarkis rodas Blood Gas Notified Time [id number] Blood Gas Notified By Prosthetist mk crane Troponin I High Sensitivity 117 *H </=34 ng/L B-Type Natriuretic Peptide 457.16 0-100 pg/mL Triglycerides Level 71 < 150 mg/dL Cholesterol Level 66 < 200 mg/dL LDL Cholesterol 31 < 100 mg/dL HDL Cholesterol 21 L 40-59 mg/dL Test 10/07/24 06:17 10/07/24 05:40 10/07/24 04:12 Range/Units Urine Color Yellow Yellow Urine Clarity Turbid H Clear Urine pH 6.0 5.0-9.0 Urine Specific [place] 1.033 1.001-1.035 Urine Protein 3+ H Negative Urine Ketones Trace Negative Urine Blood 1+ H Negative /uL Urine Nitrite Negative Negative Urine Bilirubin Negative Negative Urine Urobilinogen 3 H Negative mg/dL Urine Leukocyte Esterase Negative Negative /uL Urine Glucose 1+ H Normal mg/dL Urine Opiates Screen Neg NEGATIVE Urine Fentanyl Screen Neg NEGATIVE Urine Barbiturates Screen Neg NEGATIVE Urine Phencyclidine Screen Neg NEGATIVE Urine Amphetamines Screen Neg NEGATIVE Urine Benzodiazepines Screen Neg NEGATIVE Urine Cocaine Screen Neg NEGATIVE Urine Cannabinoids Screen Neg NEGATIVE Lactic Acid Level 2.0 0.4-2.0 mmol/L Differential Total Cells Counted 100.0 100 Neutrophils % (Manual) 54 37.0-80.0 Band Neutrophils % (Manual) 1 Lymphocytes % (Manual) 37 10.0-50.0 Monocytes % (Manual) 7 0-12 Eosinophils % (Manual) 1 0-7 Basophils % (Manual) 0 0.0-2.0 Metamyelocytes % (manual) 0 Myelocytes % (Manual) 0 Promyelocytes % (Manual) 0 Blast Cells % (Manual) 0 Reactive Lymphocytes 0 Platelet Estimate Adequate Microbiology Date/Time Source Procedure Growth Status 10/07/24 16:50 Nose MRSA Screen - Final Complete 10/07/24 05:40 Blood Blood Culture - Preliminary NO GROWTH AFTER 48 HOURS OF INCUBATION. Resulted 10/07/24 04:26 Sputum Gram Stain - Final Resulted 10/07/24 04:26 Sputum Respiratory Culture - Preliminary Resulted Assessment Cardiopulmonary arrest Status post CPR Metabolic encephalopathy Hypoxic encephalopathy Congestive heart failure She looks possibly waking up Plan/Recommendation Monitoring Supportive treatment ICU care Stabilize vitals Respiratory support/vent management Follow up CT head DVT prophylaxis GI prophylaxis Cardiology on case Pulmonology on case Need more history Progress: Guarded This medical document was created using an electronic medical record system with [employer] dictation system. Although this document has been carefully reviewed, there may still be some phonetic and typographical errors. These areas are purely typographical due to imperfections of the software programs, and do not reflect any compromise in the patient's medical care. Plan discussed with: Other CAROLINE ROBB MD Oct 09, 2024 09:28
[2024-10-09] MEDS: AZITHROMYCIN 500MG/ 250ML 250 ML IV SCH (09:41)
[2024-10-09 09:42] LABS: INR 1.26 (0.9-1.15); Prothrombin Time 13.1 sec (9.3-11.8)
[2024-10-09 09:46] LABS: Partial Thromboplastin Time 73.4 SEC (24.5-34.5)
--- NOTE | 2024-10-09 09:53 | CONS ---
Pharmacy Clinical Information: HEPARIN DRIP, ACS PROTOCOL @0849 APTT 73.4 - NO BOLUS, NO CHANGE NEXT APTT DRAW SCHEDULED @1500 PER RX PROTOCOL CONFIRMED AND READ BACK WITH RN ELZBIETA LARA [facility] RESIDENT Oct 09, 2024 09:53
[2024-10-09 15:58] LABS: INR 1.33 (0.9-1.15); Prothrombin Time 13.7 sec (9.3-11.8)
[2024-10-09 16:07] LABS: Partial Thromboplastin Time 91.4 SEC (24.5-34.5)
--- NOTE | 2024-10-09 16:15 | CONS ---
Pharmacy Clinical Information: HEPARIN DRIP, ACS PROTOCOL APTT @1504 91.4 HOLD HEPARIN DRIP FOR 1 HR @1610, RESTART HEPARIN DRIP AT RATE 900 UNITS/HR@ 1700 NEXT APTT @ 2300 CONFIRMED READ BACK WITH RN ELZBIETA LARA [facility] RESIDENT Oct 09, 2024 16:15
[2024-10-09] MEDS: HEPARIN DRIP/D5W 100UNITS/ML 250 ML IV SCH (17:22)
--- NOTE | 2024-10-09 18:20 | DVHPN2 ---
Progress Note - Dictate Date Seen: Oct 09, 2024 Medical Necessity Reason Pt with a Central, PICC or Fol: Yes vital signs Vital Sign Date Time Temp Pulse Resp B/P (MAP) Pulse Ox O2 Delivery O2 Flow Rate FiO2 10/09/24 18:00 30 10/09/24 17:30 99.9 80 18 109/52 (71) 211.8 10/09/24 16:00 100 Mechanical Ventilator+ Total Intake and Output 10/08/24 10/08/24 10/09/24 15:00 23:00 07:00 Intake Total 429.24 ml 529.32 ml 618.89 ml Output Total 250 ml 850 ml Balance 429.24 ml 279.32 ml -231.11 ml medications Current Medications Medications Dose Ordered Sig/Liliam Route Start Time Stop Time Status Last Admin Dose Admin Midazolam HCl 50 ml @ 1 mls/hr Q24H IV 10/07/24 04:45 10/08/24 03:40 3 MLS/HR Fentanyl Citrate 250 ml @ 2.5 mls/hr Q24H IV 10/07/24 06:15 10/09/24 12:51 15 MLS/HR Ondansetron HCl 4 mg Q4HP PRN IV 10/07/24 10:00 Nitroglycerin 0.4 mg Q5MINP PRN SL 10/07/24 10:00 Morphine Sulfate 2 mg Q30M PRN IV 10/07/24 10:00 Pantoprazole Sodium 40 mg DAILY IV 10/07/24 10:00 10/09/24 09:49 40 MG Norepinephrine Bitartrate 250 ml @ 3.75 mls/hr Q24H IV 10/07/24 12:15 10/09/24 09:56 15 MLS/HR Furosemide 40 mg BIDD IV 10/07/24 18:00 10/09/24 17:24 40 MG Atorvastatin Calcium 40 mg HS PO 10/07/24 22:00 10/08/24 21:45 40 MG Aspirin 81 mg DAILY PO 10/08/24 10:00 10/09/24 09:52 81 MG Mexiletine HCl 150 mg TID GT 10/08/24 22:00 10/09/24 13:38 150 MG Ceftriaxone Sodium/Dextrose 50 ml @ 50 mls/hr DAILY@2200 IV 10/08/24 22:00 10/08/24 22:00 50 MLS/HR Acetaminophen 500 mg Q6HP PRN PO 10/08/24 22:30 10/08/24 23:41 500 MG Azithromycin 250 ml @ 125 mls/hr DAILY IV 10/10/24 10:00 Heparin Sodium/ Dextrose 250 ml @ 9 mls/hr Q24H IV 10/09/24 17:00 10/09/24 17:22 9 MLS/HR laboratory and microbiology Laboratory Tests 10/09/24 02:40 Test 10/09/24 02:40 Range/Units Serum Glucose 114 H 74-106 mg/dL Assessment/Plan s/p cardiac arrest VT CPR <5 min elevated troponin acute resp failure atelectases pt seen and examined on the ICU events off sedation beginning to wake up levophed drip amiodarone heparin vent setting ac volume peep 5 cm H20 Fi02=30% CXR congestion echo noted EF 15% management plan when more awake proceed to weaning PS 7/5 cont abx monitor cx monitor labs renal function daily abg and CXR dvt proph/on heparin drip crit care time 35 min Dietary Evaluation Review Comments: 1) TF Jevity 1.2Cal @ 55 ml/hr. x 24hr along with Pro-stat 1 pk daily. Start @ 20ml/hr, increase 10ml/hr Q4H until goal is reached. TF @ goal volume provides 1684 kcal (100% energy needs), 88 gm protein (100% protein needs), 1065 ml free water. 2) Water flush 100ml Q4H if allowed, adjust PRN 3) Advance to cardiac diet as medically feasible 4) Monitor NPO status, lab values, wt trend, I/O Expected Outcomes/Goals: To meet >75% estimated needs within 7 days Lab values to improve Fu 2-3 days Plan discussed with: Patient BELLO ROTHMAN MD Oct 09, 2024 18:20
--- NOTE | 2024-10-09 18:53 | DVHPN2 ---
Progress Note Date Seen: Oct 09, 2024 Medical Necessity Reason Pt with a Central, PICC or Fol: Yes Subjective Patient reports: Other (Intubated) Review of Systems: Deferred Objective vital signs Vital Sign Date Time Temp Pulse Resp B/P (MAP) Pulse Ox O2 Delivery O2 Flow Rate FiO2 10/09/24 18:26 90 18 112/62 (79) 99 30 10/09/24 18:15 100.0 212.0 10/09/24 18:00 Mechanical Ventilator+ Total Intake and Output 10/08/24 10/08/24 10/09/24 15:00 23:00 07:00 Intake Total 429.24 ml 529.32 ml 618.89 ml Output Total 250 ml 850 ml Balance 429.24 ml 279.32 ml -231.11 ml medications Current Medications Medications Dose Ordered Sig/Liliam Route Start Time Stop Time Status Last Admin Dose Admin Midazolam HCl 50 ml @ 1 mls/hr Q24H IV 10/07/24 04:45 10/08/24 03:40 3 MLS/HR Fentanyl Citrate 250 ml @ 2.5 mls/hr Q24H IV 10/07/24 06:15 10/09/24 12:51 15 MLS/HR Ondansetron HCl 4 mg Q4HP PRN IV 10/07/24 10:00 Nitroglycerin 0.4 mg Q5MINP PRN SL 10/07/24 10:00 Morphine Sulfate 2 mg Q30M PRN IV 10/07/24 10:00 Pantoprazole Sodium 40 mg DAILY IV 10/07/24 10:00 10/09/24 09:49 40 MG Norepinephrine Bitartrate 250 ml @ 3.75 mls/hr Q24H IV 10/07/24 12:15 10/09/24 09:56 15 MLS/HR Furosemide 40 mg BIDD IV 10/07/24 18:00 10/09/24 17:24 40 MG Atorvastatin Calcium 40 mg HS PO 10/07/24 22:00 10/08/24 21:45 40 MG Aspirin 81 mg DAILY PO 10/08/24 10:00 10/09/24 09:52 81 MG Mexiletine HCl 150 mg TID GT 10/08/24 22:00 10/09/24 13:38 150 MG Ceftriaxone Sodium/Dextrose 50 ml @ 50 mls/hr DAILY@2200 IV 10/08/24 22:00 10/08/24 22:00 50 MLS/HR Acetaminophen 500 mg Q6HP PRN PO 10/08/24 22:30 10/08/24 23:41 500 MG Azithromycin 250 ml @ 125 mls/hr DAILY IV 10/10/24 10:00 Heparin Sodium/ Dextrose 250 ml @ 9 mls/hr Q24H IV 10/09/24 17:00 10/09/24 17:22 9 MLS/HR Enteral Nutritional Formula 1,000 ml 55ML/HR GT 10/09/24 18:45 UNV Examination: GENERAL:Abnormal, MSK:Abnormal, NEURO:Abnormal laboratory and microbiology Laboratory Tests 10/09/24 02:40 Test 10/09/24 02:40 Range/Units Serum Glucose 114 H 74-106 mg/dL Microbiology Date/Time Source Procedure Growth Status 10/07/24 16:50 Nose MRSA Screen - Final Complete 10/07/24 05:40 Blood Blood Culture - Preliminary NO GROWTH AFTER 48 HOURS OF INCUBATION. Resulted 10/07/24 04:26 Sputum Gram Stain - Final Complete 10/07/24 04:26 Respiratory Culture - Final Enterobacter cloacae Complete Problem List/Assessment/Plan Problem List/Assessment/Plan hypokalemia proteinuria Cardiac arrest status post V-tach chf recs Recommend diuretics IV Lasix Potassium replace needed Cardiology workup ongoing Renal function stable now Quantify proteinuria Plan discussed with: Other My Orders My Orders Orders - OLIVIER GOMEZ MD Procedure Category Date Status Time Urine Creatinine LAB 10/08/24 Logged 19:17 Urine Protein LAB 10/08/24 Logged 19:17 Urine Sodium LAB 10/08/24 Logged 19:17 Urine LAB 10/09/24 Transmitted Protein/Creatinine Urine Protein LAB 10/09/24 Transmitted 18:51 Urine Creatinine LAB 10/09/24 Transmitted 18:51 Dietary Evaluation Review Comments: 1) TF Jevity 1.2Cal @ 55 ml/hr. x 24hr along with Pro-stat 1 pk daily. Start @ 20ml/hr, increase 10ml/hr Q4H until goal is reached. TF @ goal volume provides 1684 kcal (100% energy needs), 88 gm protein (100% protein needs), 1065 ml free water. 2) Water flush 100ml Q4H if allowed, adjust PRN 3) Advance to cardiac diet as medically feasible 4) Monitor NPO status, lab values, wt trend, I/O Expected Outcomes/Goals: To meet >75% estimated needs within 7 days Lab values to improve Fu 2-3 days OLIVIER GOMEZ MD Oct 09, 2024 18:53
--- NOTE | 2024-10-09 21:29 | DVHPN2 ---
Progress Note - Dictate Date Seen: Oct 09, 2024 Medical Necessity Reason Pt with a Central, PICC or Fol: Yes vital signs Vital Sign Date Time Temp Pulse Resp B/P (MAP) Pulse Ox O2 Delivery O2 Flow Rate FiO2 10/09/24 21:00 100.6 81 20 112/71 (85) 99 213.1 10/09/24 20:07 30 10/09/24 20:00 Mechanical Ventilator+ Total Intake and Output 10/08/24 10/08/24 10/09/24 15:00 23:00 07:00 Intake Total 429.24 ml 529.32 ml 618.89 ml Output Total 250 ml 850 ml Balance 429.24 ml 279.32 ml -231.11 ml medications Current Medications Medications Dose Ordered Sig/Liliam Route Start Time Stop Time Status Last Admin Dose Admin Midazolam HCl 50 ml @ 1 mls/hr Q24H IV 10/07/24 04:45 10/08/24 03:40 3 MLS/HR Fentanyl Citrate 250 ml @ 2.5 mls/hr Q24H IV 10/07/24 06:15 10/09/24 12:51 15 MLS/HR Ondansetron HCl 4 mg Q4HP PRN IV 10/07/24 10:00 Nitroglycerin 0.4 mg Q5MINP PRN SL 10/07/24 10:00 Morphine Sulfate 2 mg Q30M PRN IV 10/07/24 10:00 Pantoprazole Sodium 40 mg DAILY IV 10/07/24 10:00 10/09/24 09:49 40 MG Norepinephrine Bitartrate 250 ml @ 3.75 mls/hr Q24H IV 10/07/24 12:15 10/09/24 09:56 15 MLS/HR Furosemide 40 mg BIDD IV 10/07/24 18:00 10/09/24 17:24 40 MG Atorvastatin Calcium 40 mg HS PO 10/07/24 22:00 10/08/24 21:45 40 MG Aspirin 81 mg DAILY PO 10/08/24 10:00 10/09/24 09:52 81 MG Mexiletine HCl 150 mg TID GT 10/08/24 22:00 10/09/24 13:38 150 MG Ceftriaxone Sodium/Dextrose 50 ml @ 50 mls/hr DAILY@2200 IV 10/08/24 22:00 10/08/24 22:00 50 MLS/HR Acetaminophen 500 mg Q6HP PRN PO 10/08/24 22:30 10/08/24 23:41 500 MG Azithromycin 250 ml @ 125 mls/hr DAILY IV 10/10/24 10:00 Heparin Sodium/ Dextrose 250 ml @ 9 mls/hr Q24H IV 10/09/24 17:00 10/09/24 17:22 9 MLS/HR Enteral Nutritional Formula 1,000 ml 55ML/HR GT 10/09/24 18:45 laboratory and microbiology Laboratory Tests 10/09/24 02:40 Test 10/09/24 02:40 Range/Units Serum Glucose 114 H 74-106 mg/dL Assessment/Plan Subjective Patient remains in the ICU for critical care. She is still intubated. CT brain ordered. Plan for AICD . Patient had temp last night. Blood cultures ordered. Medical History - Paroxysmal atrial fibrillation - Ventricular tachycardia - Congenital heart disease - Cardiac arrest (multiple episodes) Surgical History - Left heart catheterization today - Transesophageal echocardiogram today Medications and Supplements - Amiodarone - Not taken after discharge - Lipitor - Not taken after discharge - Lasix - Not taken after discharge - Fentanyl 175 - Amiodarone 1 - Epinephrine - Heparin - Currently on hold post-cardiac catheterization Allergies - No known drug allergies reported Family History - Son: Lives in [place] Social History - Living Situation: Lives in [place] Immunizations - Not documented in the current record Review of Systems Unable to obtain due to the patients intubated and critically ill status. Objective Physical Examination Respiratory: Patient is intubated. Laboratory, Imaging, and Diagnostic Test Results - Date: TueOct 08 2024 - Left heart catheterization: Negative - RICHIE (Transesophageal echocardiogram): Performed, results pending Assessment & Plan Cardiac arrest Assessment: Patient experienced a cardiac arrest last night, requiring CPR and intubation. This event occurred shortly after being discharged from [facility] in [place] with prescriptions for amiodarone, Lipitor, and Lasix, which the patient did not take. The patient has a history of paroxysmal atrial fibrillation and congenital heart disease. During the arrest, ventricular tachycardia was observed, necessitating electrical cardioversion. A left heart catheterization was performed today with negative results. A transesophageal echocardiogram was also conducted, results pending. The patient remains intubated and in cardiogenic shock, requiring vasopressor support. Plan: - Continue mechanical ventilation - Maintain on vasopressor support with epinephrine drip, currently at 6 mcg/min - Continue fentanyl drip at 175 mcg/hr for sedation - Continue amiodarone drip at 1 mg/min for arrhythmia management - Restart heparin drip post-cardiac catheterization - Plan for ICD placement - Continue anti-arrhythmic management - Monitor and optimize hemodynamics - Await and review results of transesophageal echocardiogram - Reassess neurological status and consider timing for extubation Congenital heart disease with valvular abnormality Assessment: Patient has a known history of congenital heart disease, as reported by the son. Echocardiogram review suggests a tight mitral valve, possibly due to a previously placed ring that has now become constrictive. The patient has undergone previous cardiac surgery, including coronary artery bypass grafting with grafts to the left anterior descending artery, diagonal branch, and obtuse marginal branch. The left main coronary artery has been previously dissected. Plan: - Review complete echocardiogram report when available - Consult with cardiothoracic surgery regarding potential valve intervention - Continue close cardiac monitoring - Optimize medical management of heart failure and arrhythmias Dietary Evaluation Review Comments: 1) TF Jevity 1.2Cal @ 55 ml/hr. x 24hr along with Pro-stat 1 pk daily. Start @ 20ml/hr, increase 10ml/hr Q4H until goal is reached. TF @ goal volume provides 1684 kcal (100% energy needs), 88 gm protein (100% protein needs), 1065 ml free water. 2) Water flush 100ml Q4H if allowed, adjust PRN 3) Advance to cardiac diet as medically feasible 4) Monitor NPO status, lab values, wt trend, I/O Expected Outcomes/Goals: To meet >75% estimated needs within 7 days Lab values to improve Fu 2-3 days Plan discussed with: Patient, Other CARLOS WHITAKER MD Oct 09, 2024 21:28
[2024-10-09 23:15] LABS: Protein, Urine 22.5 mg/dL (1-14); Protein, Urine 23.3 mg/dL (1-14)
[2024-10-09 23:41] LABS: INR 1.39 (0.9-1.15); Partial Thromboplastin Time 49.5 SEC (24.5-34.5); Prothrombin Time 14.3 sec (9.3-11.8)
[2024-10-10] VITALS (106 sets, daily range): BP systolic 88–124; BP diastolic 47–74; PULSE 76–94; RESP 14–30; TEMP 91.4–100; O2SAT 87–100
[2024-10-10 03:26] LABS: Hematocrit 26.3 % (36.0-46.0); Hemoglobin 8.7 g/dL (12.2-16.2); Mean Corpuscular Hemoglobin 30.4 pg (28.0-32.0); Mean Corpuscular Volume 92.2 fL (80.0-100.0); Nucleated Red Blood Cells % 0.1 %
[2024-10-10 03:40] LABS: Anion Gap 12 (5-15); BUN/Creatinine Ratio 15.8 (10.0-20.0); Blood Urea Nitrogen 12 mg/dL (9-23); Carbon Dioxide 23 mmol/L (20-31); Chloride 98 mmol/L (98-107)
[2024-10-10 03:41] LABS: Bilirubin, Total 0.5 mg/dL (0.2-1.0)
[2024-10-10 03:55] LABS: Alanine Aminotransferase 168 U/L (7-40); Albumin 2.7 g/dL (3.2-4.8); Alkaline Phosphatase 144 U/L (46-116); Calcium 7.6 mg/dL (8.7-10.4); Glucose 120 mg/dL (74-106); Magnesium 1.5 mg/dL (1.6-2.6); Potassium 3.2 mmol/L (3.5-5.1); Sodium 133 mmol/L (136-145); Total Protein 5.3 g/dL (5.7-8.2)
--- NOTE | 2024-10-10 04:57 | DVH ---
CHEST RADIOGRAPH Indication: CHF Technique: Single frontal view of the chest was obtained COMPARISON: XY CHEST PORTABLE on DOS: 10/09/24, XY CHEST XRAY 1 VIEW on DOS: 10/08/24, XY CHEST XRAY 1 VIEW on DOS: 10/08/24, XY CHEST PORTABLE on DOS: 10/07/24 FINDINGS: Lines and Tubes: Slight interval advancement of the endotracheal tube such that the tip now projects approximately 1.3 cm above the level of the tyler. Remaining lines and tubes unchanged. Lungs: Stable diffuse increased prominence of the pulmonary vasculature and small bilateral pleural e ffusions. No evidence of focal consolidation. No pneumothorax. Cardiomediastinal contours: Cardiomegaly status post median sternotomy. Bones: Unremarkable IMPRESSION: 1. Cardiomegaly, stable diffuse increased prominence of the pulmonary vasculature and small bilateral pleural effusions. 2. Slight interval advancement of endotracheal tube as above. Remaining lines and tubes unchanged.
[2024-10-10] MEDS: POTASSIUM CHL 20MEQ/100ML 100 ML IV SCH (05:16)
[2024-10-10] MEDS: MAGNESIUM SULFATE 1GM/100ML 100 ML IV SCH (05:16)
[2024-10-10 06:39] LABS: Base Excess 1.6 mmol/L (-2.0-3.0)
--- NOTE | 2024-10-10 06:49 | DVHPN2 ---
Progress Note - Dictate Date Seen: Oct 10, 2024 Medical Necessity Reason Pt with a Central, PICC or Fol: Yes vital signs Vital Sign Date Time Temp Pulse Resp B/P (MAP) Pulse Ox O2 Delivery O2 Flow Rate FiO2 10/10/24 06:33 110/74 10/10/24 06:30 98.1 81 18 99 208.6 10/10/24 06:00 Mechanical Ventilator+ 30 30 Total Intake and Output 10/09/24 10/09/24 10/10/24 15:00 23:00 07:00 Intake Total 622.64 ml 866.14 ml 880.06 ml Output Total 1300 ml 650 ml Balance 622.64 ml -433.86 ml 230.06 ml medications Current Medications Medications Dose Ordered Sig/Liliam Route Start Time Stop Time Status Last Admin Dose Admin Midazolam HCl 50 ml @ 1 mls/hr Q24H IV 10/07/24 04:45 10/08/24 03:40 3 MLS/HR Fentanyl Citrate 250 ml @ 2.5 mls/hr Q24H IV 10/07/24 06:15 10/10/24 02:30 20 MLS/HR Ondansetron HCl 4 mg Q4HP PRN IV 10/07/24 10:00 Nitroglycerin 0.4 mg Q5MINP PRN SL 10/07/24 10:00 Morphine Sulfate 2 mg Q30M PRN IV 10/07/24 10:00 Pantoprazole Sodium 40 mg DAILY IV 10/07/24 10:00 10/09/24 09:49 40 MG Norepinephrine Bitartrate 250 ml @ 3.75 mls/hr Q24H IV 10/07/24 12:15 10/09/24 21:41 26.25 MLS/HR Furosemide 40 mg BIDD IV 10/07/24 18:00 10/10/24 06:00 40 MG Atorvastatin Calcium 40 mg HS PO 10/07/24 22:00 10/09/24 21:34 40 MG Aspirin 81 mg DAILY PO 10/08/24 10:00 10/09/24 09:52 81 MG Mexiletine HCl 150 mg TID GT 10/08/24 22:00 10/10/24 05:31 150 MG Ceftriaxone Sodium/Dextrose 50 ml @ 50 mls/hr DAILY@2200 IV 10/08/24 22:00 10/09/24 21:34 50 MLS/HR Acetaminophen 500 mg Q6HP PRN PO 10/08/24 22:30 10/09/24 21:26 500 MG Azithromycin 250 ml @ 125 mls/hr DAILY IV 10/10/24 10:00 Heparin Sodium/ Dextrose 250 ml @ 9 mls/hr Q24H IV 10/09/24 17:00 10/09/24 17:22 9 MLS/HR Enteral Nutritional Formula 1,000 ml 55ML/HR GT 10/09/24 18:45 Potassium Chloride 100 ml @ 50 mls/hr Q2H IV 10/10/24 05:15 10/10/24 09:14 10/10/24 05:16 50 MLS/HR Magnesium Sulfate/ Dextrose 100 ml @ 100 mls/hr Q1HR IV 10/10/24 06:00 10/10/24 08:59 10/10/24 06:29 100 MLS/HR laboratory and microbiology Laboratory Tests 10/10/24 02:08 Test 10/10/24 02:08 Range/Units Serum Glucose 120 H 74-106 mg/dL Assessment/Plan Patient is a 54-year-old female who was brought to the hospital for witnessed syncope. She is intubated and is being managed in ICU. Information was obtained by reviewing the chart and communicating with patient's son (over the phone). Family recognized witnessed syncope and started CPR and called EMS. Reportedly, EMS found the patient in ventricular fibrillation and shocked the patient and brought the patient to the hospital. Patient was intubated in emergency room and transferred to ICU. Patient was on amiodarone drip. Later the patient had ventricular tachycardia (Systane). High sensitive troponin had been minimally/flatly elevated. Presentation was not in favor of acute coronary syndrome. Cardiology is involved for cardiac aspects of care. Intubated. Noncommunicative. No JVD. Mucosa pale. No carotid bruit. Scattered rhonchi in the lungs is heard. Cardiac: Regular, no thrill. Systolic murmur 2/6 in apex is heard. Abdomen is soft. No edema in extremities. Past medical history as per son: Congenital heart disease, status post bypass WBC: 14.5 - 11.9 - 18.8 - 20.0 - 21.2 Hemoglobin: 10.1 - 9.6 - 9.2 - 8.8 - 8.7 Creatinine: 0.95 - 0.93 - 0.87 - 0.83 - 0.83 - 0.76 Potassium: 3.4 - 4.0 - 4.6 - 3.5 - 3.3 - 4.1 - 3.7 - 3.2 Magnesium: 2.0 - 1.6 - 2.0 - 3.0 - 1.5 Troponin (high sensitive): 141 - 138 - 117 BNP: 457.16 AST/ALT: 32/11 - 19/13 - 538/168 Chest x-ray revealed: Lines and Tubes: Endotracheal tube tip projects approximately 1.4 cm above the level of the tyler. Enteric catheter courses below the lateral of the diaphragm and terminates beyond the inferior margin of the image. Right internal jugular central venous catheter terminates within the distal superior vena cava. Lungs: Moderate diffuse increased prominence of the pulmonary vasculature without evidence of focal consolidation. Pleura: No effusion. No pneumothorax. Cardiomediastinal contours: Cardiomegaly. Bones: Unremarkable IMPRESSION: 1. Cardiomegaly and diffuse increased prominence of the pulmonary vasculature. 2. Lines and tubes as above. Repeat chest x-ray revealed: IMPRESSION: 1. Endotracheal tube tip 1.6 cm above the tyler; consider 2 cm retraction 2. Mild pulmonary vascular congestion. Moderate cardiomegaly. Repeat chest xry revealed: IMPRESSION: Endotracheal tube tip 1.6 cm above the tyler; consider 2 cm retraction Mild pulmonary vascular congestion. Moderate cardiomegaly. Repeat chest xry revealed: IMPRESSION: 1. Stable cardiomegaly, small left pleural effusion and mild diffuse increased prominence of the pulmonary vasculature. 2. Repositioned endotracheal tube as above. Remaining lines and tubes unchanged. Repeat chest xry revealed: IMPRESSION: 1. Cardiomegaly, stable diffuse increased prominence of the pulmonary vasculature and small bilateral pleural effusions. 2. Slight interval advancement of endotracheal tube as above. Remaining lines and tubes unchanged. CT of the head revealed: IMPRESSION: No acute intracranial abnormality. Echocardiogram reported: lvef 15-20% dilated LV severe global dysfunction mild RV dysfunction biatrial enlargement mild moderate MAC, moderate mitral regurg mild to moderate aortic regug (images of echo reviewed and questioned presence of mitral ring and also some component (moderate of Mitral stenosis) EKG revealed sinus rhythm Telemetry revealed occasions of atrial fibrillation. There was occasional sustained ventricular tachycardia. EMS tele monitor revealed ventricular fibrillation for which the patient was shocked LHC revealed: Patent RICHMOND to LAD; Patent SVG to obtuse marginal; LVEF of 20% with increased EDP; Proximal disease in LAD/LCX RICHIE was performed: Consistent with severely reduced LVEF. Consistent with previously implanted Mitral ring, Up to moderate Mitral stenosis/Mitral Regurgitation and also Moderate Aortic insufficiency. Patient is a 54-year-old female who presented with witnessed syncope. She was found to have ventricular fibrillation for which was shocked. Later had repeated episode of sustained ventricular tachycardia. Patient has been kept in ICU. Does have baseline history of coronary artery disease for which has had bypass surgery. Left heart catheterization was performed which revealed patent RICHMOND and patent SVG. ACS is not considered at this point. It is of note that the patient's echocardiogram reveals significantly use systolic function. Valvular heart disease is considered. Findings are in favor of previously implanted mitral ring. By reviewing the echo images, component of up to moderate mitral stenosis could not be ruled out. LHC was performed that ruled out any active specific ischemia as an etiology for presentation. Syncope V-fib s/p shock Sustained V-tach Paroxysmal A-fib VHD, s/p Mitral ring Systolic heart failure Abnormal LFT Cardiac suggestion for management: Manage in ICU Follow up electrolytes and kidney function test and correct abnormalities Full anticoagulation (a-fib with high CHADS-Vasc score). On Heparin drip for now Hold / stop Amio drip (worsened LFT) Mexiletine If need for pressure support: use Phenyl Ephrine May consider Esmolol for PVC/Vtach EP Following ICD implantation as per EP Pulmonary Evaluation for respiratory failure Provide previous medical records from reaching out to previous hospitals in [facility]... Further evaluation and management depends on the above and clinical course. A total of 75 minutes was spent reviewing the patient record, examining the patient, making a diagnostic and therapeutic plan, discussing this plan with medical personnel, following up on diagnostic studies and following the patient for clinical stability excluding any and all procedures. At least 50% of this time was spent in direct, [id number] contact. Thank you for allowing me to participate in this patient's care. Further recommendations will depend on patient's clinical course. Please do not hesitate to contact me if you have any questions or concerns. This medical document was created using electronic medical record system with [employer] dictation system. Although this document has been carefully reviewed, there may still be some phonetic and typographical errors. These areas are purely typographical due to the imperfection of the software programs, and do not reflect any compromise in the patient's medical care. Dietary Evaluation Review Comments: 1) TF Jevity 1.2Cal @ 55 ml/hr. x 24hr along with Pro-stat 1 pk daily. Start @ 20ml/hr, increase 10ml/hr Q4H until goal is reached. TF @ goal volume provides 1684 kcal (100% energy needs), 88 gm protein (100% protein needs), 1065 ml free water. 2) Water flush 100ml Q4H if allowed, adjust PRN 3) Advance to cardiac diet as medically feasible 4) Monitor NPO status, lab values, wt trend, I/O Expected Outcomes/Goals: To meet >75% estimated needs within 7 days Lab values to improve Fu 2-3 days Plan discussed with: Other (nurse) CORDELL VERA MD Oct 10, 2024 06:49
--- NOTE | 2024-10-10 06:57 | DVHPN2 ---
Progress Note - Dictate Date Seen: Oct 10, 2024 Medical Necessity Reason Pt with a Central, PICC or Fol: Yes vital signs Vital Sign Date Time Temp Pulse Resp B/P (MAP) Pulse Ox O2 Delivery O2 Flow Rate FiO2 10/10/24 06:50 97/52 10/10/24 06:45 98.1 81 18 99 208.6 10/10/24 06:00 Mechanical Ventilator+ 30 30 Total Intake and Output 10/09/24 10/09/24 10/10/24 15:00 23:00 07:00 Intake Total 622.64 ml 866.14 ml 880.06 ml Output Total 1300 ml 650 ml Balance 622.64 ml -433.86 ml 230.06 ml medications Current Medications Medications Dose Ordered Sig/Liliam Route Start Time Stop Time Status Last Admin Dose Admin Midazolam HCl 50 ml @ 1 mls/hr Q24H IV 10/07/24 04:45 10/08/24 03:40 3 MLS/HR Fentanyl Citrate 250 ml @ 2.5 mls/hr Q24H IV 10/07/24 06:15 10/10/24 02:30 20 MLS/HR Ondansetron HCl 4 mg Q4HP PRN IV 10/07/24 10:00 Nitroglycerin 0.4 mg Q5MINP PRN SL 10/07/24 10:00 Morphine Sulfate 2 mg Q30M PRN IV 10/07/24 10:00 Pantoprazole Sodium 40 mg DAILY IV 10/07/24 10:00 10/09/24 09:49 40 MG Norepinephrine Bitartrate 250 ml @ 3.75 mls/hr Q24H IV 10/07/24 12:15 10/10/24 06:50 18.75 MLS/HR Furosemide 40 mg BIDD IV 10/07/24 18:00 10/10/24 06:00 40 MG Atorvastatin Calcium 40 mg HS PO 10/07/24 22:00 10/09/24 21:34 40 MG Aspirin 81 mg DAILY PO 10/08/24 10:00 10/09/24 09:52 81 MG Mexiletine HCl 150 mg TID GT 10/08/24 22:00 10/10/24 05:31 150 MG Ceftriaxone Sodium/Dextrose 50 ml @ 50 mls/hr DAILY@2200 IV 10/08/24 22:00 10/09/24 21:34 50 MLS/HR Acetaminophen 500 mg Q6HP PRN PO 10/08/24 22:30 10/09/24 21:26 500 MG Azithromycin 250 ml @ 125 mls/hr DAILY IV 10/10/24 10:00 Heparin Sodium/ Dextrose 250 ml @ 9 mls/hr Q24H IV 10/09/24 17:00 10/09/24 17:22 9 MLS/HR Enteral Nutritional Formula 1,000 ml 55ML/HR GT 10/09/24 18:45 Potassium Chloride 100 ml @ 50 mls/hr Q2H IV 10/10/24 05:15 10/10/24 09:14 10/10/24 05:16 50 MLS/HR Magnesium Sulfate/ Dextrose 100 ml @ 100 mls/hr Q1HR IV 10/10/24 06:00 10/10/24 08:59 10/10/24 06:29 100 MLS/HR laboratory and microbiology Laboratory Tests 10/10/24 02:08 Test 10/10/24 02:08 Range/Units Serum Glucose 120 H 74-106 mg/dL Assessment/Plan Plan/Recommendation ASSESSMENT: This is a 54-year old female who initially presented 10/07/2024 due to witnessed syncope. As per records and having spoke with family members (son/father), patient had collapsed in the kitchen as witnessed by nearby family members whom had initiated CPR. EMS had been called for further medical attention and upon their arrival reports indicate the patient had been found in ventricular fibrillation for which she was subsequently shocked by EMS and upon rhythm strip analysis of the event, rhythm itself does reveal evidence for what appears to be ventricular fibrillation requiring shock x 1 which upon ED arrival 12-lead electrocardiogram had revealed sinus rhythm at 84bpm, QRS of 96ms with a QTC interval of 495 ms. Upon ED arrival patient was intubated and initiated on Amiodarone infusion for rhythm management. Patient was later admitted to the ICU for close observation/management and had been noted to experience episodes of ventricular tachycardia that had degenerated into ventricular fibrillation resulting in cardiac arrest requiring initiation of CPR/ACLS protocol which the patient was subsequently shocked x 1 resulting in ROSC. Patient did undergo subsequent cardiac catheterization 10/08/2024 by Interventional Cardiology services revealing patent RICHMOND to LAD, patent SVG to obtuse marginal, proximal disease involving LAD and LCX. Echocardiogram 10/07/2024 had revealed a severely reduced LVEF function of 15-20%, dilated LV with severe global dysfunction, biatrial enlargement, moderate mitral insufficiency with mild to moderate aortic insufficiency. TTE itself had questioned potential presence of mitral ring and potential underlying component of mitral stenosis which subsequent RICHIE 10/08/2024 had revealed evidence of mitral ring with up to moderate mitral stenosis/mitral insufficiency in addition to moderate aortic insufficiency. Throughout course of present admission, patient has been furthermore noted to experience episodes of paroxysmal atrial fibrillation for which she has been maintained on anticoagulation for CVA prophylaxis. As the patient presented and was found to experience episodes of ventricular fibrillation requiring a total of 2 shocks, Electrophysiology services were later involved by Interventional Cardiology request to evaluate the patient for potential AICD implantation. Reported past medical history includes congenital heart disease, coronary artery disease status post previous bypass surgery Echocardiogram: (10/07/2024) revealed lvef 15-20% dilated LV severe global dysfunction mild RV dysfunction biatrial enlargement mild moderate MAC, moderate mitral regurg mild to moderate aortic regug (images of echo reviewed and questioned presence of mitral ring and also some component (moderate of Mitral stenosis) Cardiac Catheterization: (10/08/2024) revealed Patent RICHMOND to LAD; Patent SVG to obtuse marginal; LVEF of 20% with increased EDP; Proximal disease in LAD/LCX Transesophageal Echocardiogram (10/08/2024) revealed was performed: Consistent with severely reduced LVEF. Consistent with previously implanted Mitral ring, Up to moderate Mitral stenosis/Mitral Regurgitation and also Moderate Aortic insufficiency. Syncope, witnessed Cardiac arrest, status post ROSC Ventricular fibrillation, requiring shock x 2 Ventricular tachycardia with degeneration to ventricular fibrillation Systolic heart failure, severely reduced LV function of 15-20% Paroxysmal atrial fibrillation, currently sinus rhythm Coronary artery disease, s/p previous 2-V CABG Valvular heart disease, s/p previous mitral ring Beta-hemolytic group B streptococcus QRS < 120 milliseconds Secondary prevention ELECTROPHYSIOLOGY SUGGESTIONS FOR MANAGEMENT: Recognizing the above, patient herself benefits from undergoing AICD implantation for secondary prevention against sudden cardiac . As patient remains intubated on mechanical ventilation/sedation, benefits, risks, alternatives were discussed at length with the patient son who at this point would like to consider the matter further and discuss it with the patient father prior to proceeding with a decision. Therefore, will proceed with medical management during the interim and await tentative decision by family. Of note, patient was found to have leukocytosis which sputum culture had revealed evidence for beta-hemolytic group B streptococcus subsequently initiated on IV antibiotic therapy as managed by primary team. Blood cultures 10/07/2024 at this point reveal no growth to date. Recognizing evidence for acute infection, will request for infectious disease consultation/clearance prior to proceeding with potential plan of undergoing AICD implantation. To proceed with IV antibiotic therapy during the interim. Recognizing co-morbidities, long-term continuation of anticoagulation is advised for CVA prophylaxis of PAF. Proceed with Heparin infusion (for now). Proceed with IV Amiodarone infusion (for now). Proceed with Mexiletine (for now). To sustain potassium levels greater than 4.0. To sustain magnesium levels greater than 2.0. Proceed with close rate and rhythm surveillance during the interim. Remainder of cardiac management as per Interventional Cardiology services. Will proceed to follow from an EP perspective. GDMT for systolic heart failure as current conditions permit Proceed with close rate and rhythm surveillance Proceed with close hemodynamic surveillance Proceed with optimized blood pressure control Transfuse to sustain HGB level above 7.0 Sustain Magnesium level greater than 2.0 Sustain Potassium level greater than 4.0 Follow up renal function and electrolytes Management of ongoing concurrent medical conditions as per primary team Management of beta-hemolytic group B strep as per primary team/ID Management comorbidities as per primary team Management in the ICU Follow up market consultant recommendations Will proceed to follow from an EP perspective Further recommendations per clinical progression All available diagnostic labs, EKG's, and images were personally reviewed Patient's status, findings, and plan of care was reviewed and discussed with supervising physician Dr. Armstrong, who is in agreement with current plan of care. Plan of care discussed with and agreed upon by family / primary RN Prognosis: Guarded Thank you for allowing me to participate in the care of this patient. Further recommendations based on patients clinical course and progression, primary attending, and other consultants. Will continue to follow with primary attending. If you have any questions or concerns, please do not hesitate to contact me. A total of 75 minutes was spent reviewing the patient record, examining the patient, making a diagnostic and therapeutic plan, discussing this plan with medical personnel, following up on diagnostic studies and following the patient for clinical stability excluding any and all procedures. At least 50% of this time was spent in direct, [id number] contact. Plan discussed with: Other (Primary RN and Patient Son) Dietary Evaluation Review Comments: 1) TF Jevity 1.2Cal @ 55 ml/hr. x 24hr along with Pro-stat 1 pk daily. Start @ 20ml/hr, increase 10ml/hr Q4H until goal is reached. TF @ goal volume provides 1684 kcal (100% energy needs), 88 gm protein (100% protein needs), 1065 ml free water. 2) Water flush 100ml Q4H if allowed, adjust PRN 3) Advance to cardiac diet as medically feasible 4) Monitor NPO status, lab values, wt trend, I/O Expected Outcomes/Goals: To meet >75% estimated needs within 7 days Lab values to improve Fu 2-3 days Plan discussed with: Other (Lucas hong ) TUCKER CRUZ IT QUALITY ANALYST Oct 10, 2024 06:57
[2024-10-10 07:37] LABS: INR 1.38 (0.9-1.15); Partial Thromboplastin Time 35.3 SEC (24.5-34.5); Prothrombin Time 14.2 sec (9.3-11.8)
[2024-10-10] MEDS ORDERED: ESMOLOL HCL 10MG/ML 250 ML IV SCH (07:45)
[2024-10-10] MEDS ORDERED: HEPARIN SODIUM (PORCINE) 5000 UNITS/ML 1ML VIAL IV ONE (08:00)
[2024-10-10] MEDS: PHENYLEPHRINE IV 250 ML IV SCH (08:28)
--- NOTE | 2024-10-10 08:33 | CONS ---
Pharmacy Clinical Information: HEPARIN DRIP, ACS PROTOCOL @0509 APTT 35.3 - NO BOLUS, INCREASE HEPARIN DRIP RATE TO 1100 UNITS/HR NEXT APTT DRAW SCHEDULED @1430 PER RX PROTOCOL CONFIRMED AND READ BACK WITH RN ELZBIETA LARA [facility] RESIDENT Oct 10, 2024 08:33
--- NOTE | 2024-10-10 09:42 | DVHPN2 ---
Progress Note - Dictate Date Seen: Oct 10, 2024 Medical Necessity Reason Pt with a Central, PICC or Fol: Yes Subjective Ms. Kulkarnir is a 54 years old female who was brought to the [facility] on 10/07/2024 with a chief complaint of cardiopulmonary arrest/status post CPR. I have seen and examined the patient, I have discussed with her nurse, mentally she is doing better, responsive to verbal stimuli and follows verbal commands But she has elevated liver function tests, leukocyte to persist, At this time, the patient is intubated, eyes open, but she is able to follow some of my verbal commands. Blood culture, 10/09/2024: UDS, 10/07/2024: Negative Urinalysis, 10/07/2024: Leukocyte esterase: Negative WBC/HB/PLT/MCV, 10/09/2024: 20/8.8/219/94.6, 10/10/2024: 21.2/8.7/232/92.2 PT/INR/PTT, 10/08/2024: 12.4/1.19/72.7, 10/09/2024: 13.1/1.26/68.9, 10/10/2024: 14.4/2/1.38/35.3 CMP, 10/08/2024: Unremarkable Troponin one high sensitivity, 10/07/2024: 141, 138, 117 TBI/AST/ALT/AP, 10/10/2024: 0.5/538/168/144 TG/HDL/LDL/HDL, 10/07/24: 71/66/31/21 Echocardiogram, 10/07/2024: lvef 15-20% dilated LV severe global dysfunction mild RV dysfunction biatrial enlargement mild moderate MAC, moderate mitral regurg mild to moderate aortic regug RICHIE, 10/08/2024: 1. Left ventricle: Dilated LV was seen. LVEF was 25%. There was diffuse hypokinesis of left ventricle. 2. Right ventricle: RV was mildly dilated. 3. Left atrium: LA enlarged 4. Right atrium: RA was enlarged. 5. Mitral valve: Mitral was thickened with reduced opening. Moderate Mitral regurgitation was seen. Planinomentry of valve (TTE images also obtained) revealed MVA of 2.1 cm. Mean pressure gradient (obtained from limited TTE images) was 5. Images are consistent with previously implanted Ring in Mitral position. Consistent with up to Moderate Mitral stenosis. . There was no vegetation 6. Left atrial appendage: No evidence of thrombus. 7. Aortic valve: Trileaflet valve. No stenosis. Up to moderate Aortic Insufficiency was seen. There was no vegetation 8. Pulmonic valve: Trivial pulmonic insufficiency. No significant stenosis. 9. Tricuspid valve: Mild tricuspid regurgitation. There was no vegetation 10. Interatrial septum: Negative color flow for right to left shunt was observed. Bubble study was performed: negative for shunt 11. Pericardium: No significant effusion. 12. Thoracic aorta: No significant plaquing. Chest x-ray, 10/27/2024: 1. Cardiomegaly, stable diffuse increased prominence of the pulmonary vasculature and small bilateral pleural effusions. 2. Slight interval advancement of endotracheal tube as above. Remaining lines and tubes unchanged. CT head, 10/07/2024: No acute intracranial abnormality General: the patient is well developed and nourished. No acute distress. Intubated vital signs Vital Sign Date Time Temp Pulse Resp B/P (MAP) Pulse Ox O2 Delivery O2 Flow Rate FiO2 10/10/24 09:25 81/51 10/10/24 08:35 83 18 100 30 10/10/24 08:00 Mechanical Ventilator+ 10/10/24 06:45 98.1 208.6 Total Intake and Output 10/09/24 10/09/24 10/10/24 15:00 23:00 07:00 Intake Total 622.64 ml 866.14 ml 1046.14 ml Output Total 1300 ml 650 ml Balance 622.64 ml -433.86 ml 396.14 ml medications Current Medications Medications Dose Ordered Sig/Liliam Route Start Time Stop Time Status Last Admin Dose Admin Midazolam HCl 50 ml @ 1 mls/hr Q24H IV 10/07/24 04:45 10/08/24 03:40 3 MLS/HR Fentanyl Citrate 250 ml @ 2.5 mls/hr Q24H IV 10/07/24 06:15 10/10/24 02:30 20 MLS/HR Ondansetron HCl 4 mg Q4HP PRN IV 10/07/24 10:00 Nitroglycerin 0.4 mg Q5MINP PRN SL 10/07/24 10:00 Morphine Sulfate 2 mg Q30M PRN IV 10/07/24 10:00 Pantoprazole Sodium 40 mg DAILY IV 10/07/24 10:00 10/09/24 09:49 40 MG Norepinephrine Bitartrate 250 ml @ 3.75 mls/hr Q24H IV 10/07/24 12:15 10/10/24 06:50 18.75 MLS/HR Furosemide 40 mg BIDD IV 10/07/24 18:00 10/10/24 06:00 40 MG Atorvastatin Calcium 40 mg HS PO 10/07/24 22:00 10/09/24 21:34 40 MG Aspirin 81 mg DAILY PO 10/08/24 10:00 10/09/24 09:52 81 MG Mexiletine HCl 150 mg TID GT 10/08/24 22:00 10/10/24 05:31 150 MG Ceftriaxone Sodium/Dextrose 50 ml @ 50 mls/hr DAILY@2200 IV 10/08/24 22:00 10/09/24 21:34 50 MLS/HR Acetaminophen 500 mg Q6HP PRN PO 10/08/24 22:30 10/09/24 21:26 500 MG Azithromycin 250 ml @ 125 mls/hr DAILY IV 10/10/24 10:00 Enteral Nutritional Formula 1,000 ml 55ML/HR GT 10/09/24 18:45 Esmolol HCl 250 ml @ 0 mls/hr Q0M IV 10/10/24 07:45 Phenylephrine HCl 250 ml @ 30 mls/hr Q8H20M IV 10/10/24 07:45 10/10/24 08:28 30 MLS/HR Heparin Sodium/ Dextrose 250 ml @ 11 mls/hr [id number] IV 10/10/24 08:30 Phenylephrine HCl 80 mg/Sodium Chloride 250 ml @ 7.5 mls/hr Q24H IV 10/10/24 09:30 objective MENTAL STATUS: Subjective SPEECH, LANGUAGE, HIGHER CORTICAL FUNCTION: Intubated CRANIAL NERVES: Pupils are equal, round and reactive. She has conjugated eye movement. Facial sensation fine in all three divisions bilaterally. Facial muscles symmetrical and strength intact. SENSATION: Responsive to painful stimuli MOTOR: Normal tone in the upper and lower extremity. Normal muscle bulk. No fasciculations. No abnormal movements or posturing. She moves the hands and theta a little bit REFLEXES: Deep tendon reflexes are symmetrical. No pathological reflexes. CEREBELLAR/COORDINATION: Deferred GAIT/STATION: deferred laboratory and microbiology Laboratory Tests 10/10/24 02:08 Test 10/10/24 02:08 Range/Units Serum Glucose 120 H 74-106 mg/dL Problem List Cardiopulmonary arrest Status post CPR Metabolic encephalopathy Hypoxic encephalopathy Congestive heart failure Leukocytosis/sepsis Respiratory failure Elevated liver function tests She is waking up Assessment/Plan Monitoring Supportive treatment ICU care Stabilize vitals Respiratory support/vent management Follow up CT head Hold off Lipitor if okay with PCP DVT prophylaxis GI prophylaxis Cardiology on case Pulmonology on case Nephrology on case Consult GI Re: Elevated liver function tests Need more history This medical document was created using an electronic medical record system with Aut[employer] dictation system. Although this document has been carefully reviewed, there may still be some phonetic and typographical errors. These areas are purely typographical due to imperfections of the software programs, and do not reflect any compromise in the patient's medical care. Prognosis guarded Dietary Evaluation Review Comments: 1) TF Jevity 1.2Cal @ 55 ml/hr. x 24hr along with Pro-stat 1 pk daily. Start @ 20ml/hr, increase 10ml/hr Q4H until goal is reached. TF @ goal volume provides 1684 kcal (100% energy needs), 88 gm protein (100% protein needs), 1065 ml free water. 2) Water flush 100ml Q4H if allowed, adjust PRN 3) Advance to cardiac diet as medically feasible 4) Monitor NPO status, lab values, wt trend, I/O Expected Outcomes/Goals: To meet >75% estimated needs within 7 days Lab values to improve Fu 2-3 days Plan discussed with: Other Critical Care Time(min): 35 CAROLINE ROBB MD Oct 10, 2024 09:42
[2024-10-10] MEDS ORDERED: AZITHROMYCIN 500MG/ 250ML 250 ML IV SCH (10:00)
[2024-10-10] MEDS: PHENYLEPHRINE INJ 80 MG in SODIUM CHL 0.9% 242 ML IV SCH (10:20)
[2024-10-10] MEDS: HEPARIN DRIP/D5W 100UNITS/ML 250 ML IV SCH (11:18)
[2024-10-10] MEDS: POTASSIUM CHL 20MEQ/100ML 100 ML IV ONE ×2 (13:12→13:27)
--- NOTE | 2024-10-10 14:37 | MEDREC ---
[facility] Intervention Section I [facility] Intervention: Duplication of therapy (Pt currently on both ceftriaxone and ertapenem. Please consider discontinuing one.) ELZBIETA WHITNEY [facility] RESIDENT Oct 10, 2024 14:37
[2024-10-10 15:08] LABS: INR 1.34 (0.9-1.15); Partial Thromboplastin Time 59.2 SEC (24.5-34.5); Prothrombin Time 13.8 sec (9.3-11.8)
--- NOTE | 2024-10-10 15:33 | CONS ---
Pharmacy Clinical Information: HEPARIN DRIP, ACS PROTOCOL @1420 APTT 59.2 - NO BOLUS, NO CHANGE NEXT APTT DRAW SCHEDULED @2029 PER RX PROTOCOL CONFIRMED AND READ BACK WITH RN ROME VILLAFANA PHARMACIST Oct 10, 2024 15:33
--- NOTE | 2024-10-10 15:46 | DVHPN2 ---
Progress Note Date Seen: Oct 10, 2024 Medical Necessity Reason Pt with a Central, PICC or Fol: Yes Subjective Patient reports: Other (intubated) Review of Systems: Deferred Objective vital signs Vital Sign Date Time Temp Pulse Resp B/P (MAP) Pulse Ox O2 Delivery O2 Flow Rate FiO2 10/10/24 15:15 99.5 78 16 107/54 (71) 100 211.1 10/10/24 14:05 30 10/10/24 14:00 Mechanical Ventilator+ Total Intake and Output 10/09/24 10/09/24 10/10/24 15:00 23:00 07:00 Intake Total 622.64 ml 866.14 ml 1046.14 ml Output Total 1300 ml 650 ml Balance 622.64 ml -433.86 ml 396.14 ml medications Current Medications Medications Dose Ordered Sig/Liliam Route Start Time Stop Time Status Last Admin Dose Admin Midazolam HCl 50 ml @ 1 mls/hr Q24H IV 10/07/24 04:45 10/08/24 03:40 3 MLS/HR Fentanyl Citrate 250 ml @ 2.5 mls/hr Q24H IV 10/07/24 06:15 10/10/24 02:30 20 MLS/HR Ondansetron HCl 4 mg Q4HP PRN IV 10/07/24 10:00 Nitroglycerin 0.4 mg Q5MINP PRN SL 10/07/24 10:00 Morphine Sulfate 2 mg Q30M PRN IV 10/07/24 10:00 Pantoprazole Sodium 40 mg DAILY IV 10/07/24 10:00 10/10/24 10:31 40 MG Norepinephrine Bitartrate 250 ml @ 3.75 mls/hr Q24H IV 10/07/24 12:15 10/10/24 06:50 18.75 MLS/HR Furosemide 40 mg BIDD IV 10/07/24 18:00 10/10/24 06:00 40 MG Atorvastatin Calcium 40 mg HS PO 10/07/24 22:00 10/09/24 21:34 40 MG Aspirin 81 mg DAILY PO 10/08/24 10:00 10/10/24 11:19 81 MG Mexiletine HCl 150 mg TID GT 10/08/24 22:00 10/10/24 14:07 150 MG Acetaminophen 500 mg Q6HP PRN PO 10/08/24 22:30 10/09/24 21:26 500 MG Enteral Nutritional Formula 1,000 ml 55ML/HR GT 10/09/24 18:45 Esmolol HCl 250 ml @ 0 mls/hr Q0M IV 10/10/24 07:45 Heparin Sodium/ Dextrose 250 ml @ 11 mls/hr [id number] IV 10/10/24 08:30 10/10/24 11:18 11 MLS/HR Phenylephrine HCl 80 mg/Sodium Chloride 250 ml @ 7.5 mls/hr Q24H IV 10/10/24 09:30 10/10/24 10:20 21.563 MLS/HR Ertapenem 1 gm/ Sodium Chloride 50 ml @ 100 mls/hr DAILY IV 10/11/24 10:00 Examination: GENERAL:Abnormal, LUNGS:Abnormal laboratory and microbiology Laboratory Tests 10/10/24 02:08 Test 10/10/24 02:08 Range/Units Serum Glucose 120 H 74-106 mg/dL Microbiology Date/Time Source Procedure Growth Status 10/09/24 08:49 Blood Blood Culture - Preliminary NO GROWTH AFTER 24 HOURS OF INCUBATION. Resulted 10/07/24 16:50 Nose MRSA Screen - Final Complete 10/07/24 04:26 Sputum Gram Stain - Final Complete 10/07/24 04:26 Respiratory Culture - Final Enterobacter cloacae Complete Problem List/Assessment/Plan Problem List/Assessment/Plan hypokalemia proteinuria Cardiac arrest status post V-tach chf recs check myeloma panel as ordered Potassium replace needed Cardiology workup ongoing Renal function stable now Plan discussed with: Other My Orders My Orders Orders - OLIVIER GOMEZ MD Procedure Category Date Status Time Immunofixation Serum LAB 10/11/24 Verified 04:00 Hgb Electrophoresis LAB 10/11/24 Verified 04:00 [place] Lambda Lite LAB 10/11/24 Verified Chain Free S 04:00 Dietary Evaluation Review Comments: 1) TF Jevity 1.2Cal @ 55 ml/hr. x 24hr along with Pro-stat 1 pk daily. Start @ 20ml/hr, increase 10ml/hr Q4H until goal is reached. TF @ goal volume provides 1684 kcal (100% energy needs), 88 gm protein (100% protein needs), 1065 ml free water. 2) Water flush 100ml Q4H if allowed, adjust PRN 3) Advance to cardiac diet as medically feasible 4) Monitor NPO status, lab values, wt trend, I/O Expected Outcomes/Goals: To meet >75% estimated needs within 7 days Lab values to improve Fu 2-3 days OLIVIER GOMEZ MD Oct 10, 2024 15:46
[2024-10-10 16:20] LABS: Hepatitis C Antibody Negative (Negative)
[2024-10-10 16:21] LABS: Hepatitis B Surface Antigen Negative (Negative)
--- NOTE | 2024-10-10 16:50 | DVHPN2 ---
Progress Note - Dictate Date Seen: Oct 10, 2024 Medical Necessity Reason Pt with a Central, PICC or Fol: Yes vital signs Vital Sign Date Time Temp Pulse Resp B/P (MAP) Pulse Ox O2 Delivery O2 Flow Rate FiO2 10/10/24 16:30 99.9 79 18 106/54 (71) 99 211.8 10/10/24 16:20 30 10/10/24 16:00 Mechanical Ventilator+ Total Intake and Output 10/09/24 10/09/24 10/10/24 15:00 23:00 07:00 Intake Total 622.64 ml 866.14 ml 1046.14 ml Output Total 1300 ml 650 ml Balance 622.64 ml -433.86 ml 396.14 ml medications Current Medications Medications Dose Ordered Sig/Liliam Route Start Time Stop Time Status Last Admin Dose Admin Midazolam HCl 50 ml @ 1 mls/hr Q24H IV 10/07/24 04:45 10/08/24 03:40 3 MLS/HR Fentanyl Citrate 250 ml @ 2.5 mls/hr Q24H IV 10/07/24 06:15 10/10/24 02:30 20 MLS/HR Ondansetron HCl 4 mg Q4HP PRN IV 10/07/24 10:00 Nitroglycerin 0.4 mg Q5MINP PRN SL 10/07/24 10:00 Morphine Sulfate 2 mg Q30M PRN IV 10/07/24 10:00 Pantoprazole Sodium 40 mg DAILY IV 10/07/24 10:00 10/10/24 10:31 40 MG Norepinephrine Bitartrate 250 ml @ 3.75 mls/hr Q24H IV 10/07/24 12:15 10/10/24 06:50 18.75 MLS/HR Furosemide 40 mg BIDD IV 10/07/24 18:00 10/10/24 06:00 40 MG Atorvastatin Calcium 40 mg HS PO 10/07/24 22:00 10/09/24 21:34 40 MG Aspirin 81 mg DAILY PO 10/08/24 10:00 10/10/24 11:19 81 MG Mexiletine HCl 150 mg TID GT 10/08/24 22:00 10/10/24 14:07 150 MG Acetaminophen 500 mg Q6HP PRN PO 10/08/24 22:30 10/09/24 21:26 500 MG Enteral Nutritional Formula 1,000 ml 55ML/HR GT 10/09/24 18:45 Esmolol HCl 250 ml @ 0 mls/hr Q0M IV 10/10/24 07:45 Heparin Sodium/ Dextrose 250 ml @ 11 mls/hr [id number] IV 10/10/24 08:30 10/10/24 11:18 11 MLS/HR Phenylephrine HCl 80 mg/Sodium Chloride 250 ml @ 7.5 mls/hr Q24H IV 10/10/24 09:30 10/10/24 10:20 21.563 MLS/HR Ertapenem 1 gm/ Sodium Chloride 50 ml @ 100 mls/hr DAILY IV 10/11/24 10:00 laboratory and microbiology Laboratory Tests 10/10/24 02:08 Test 10/10/24 02:08 Range/Units Serum Glucose 120 H 74-106 mg/dL Assessment/Plan s/p cardiac arrest VT CPR <5 min elevated troponin acute resp failure atelectases pt seen and examined on the ICU events off sedation on mechanical ventilation white count trending up blood cultures pending management plan when more awake proceed to weaning PS 7/5 cont abx monitor cx monitor labs renal function daily abg and CXR dvt proph/on heparin drip crit care time 35 min Dietary Evaluation Review Comments: 1) TF Jevity 1.2Cal @ 55 ml/hr. x 24hr along with Pro-stat 1 pk daily. Start @ 20ml/hr, increase 10ml/hr Q4H until goal is reached. TF @ goal volume provides 1684 kcal (100% energy needs), 88 gm protein (100% protein needs), 1065 ml free water. 2) Water flush 100ml Q4H if allowed, adjust PRN 3) Advance to cardiac diet as medically feasible 4) Monitor NPO status, lab values, wt trend, I/O Expected Outcomes/Goals: To meet >75% estimated needs within 7 days Lab values to improve Fu 2-3 days Plan discussed with: Other (Rn) BELLO ROTHMAN MD Oct 10, 2024 16:50
[2024-10-10] MEDS: DEXMEDETOMIDINE HCL IN D5W 100 ML IV SCH (17:00)
--- NOTE | 2024-10-10 18:24 | DVH ---
INDICATION: elevated LFTs TECHNIQUE: Multiple real-time sonographic images were obtained of the right upper quadrant. COMPARISON: None FINDINGS: The liver demonstrates increased echotexture without focal mass lesions. The liver measure s 16.1 cm. There is no intrahepatic or extrahepatic ductal dilatation. The common duct measures 0.5 cm. Cholelithiasis. The gallbladder wall measures 0.2 cm and is within normal limits. The right kidney measures 10.7 cm. The right kidney is normal in contour, size, and shape. The echoge nicity is normal. There is no hydronephrosis. The pancreas is not well visualized due to overlying bowel gas. IMPRESSION: Hepatic steatosis. Hepatomegaly. Cholelithiasis.
--- NOTE | 2024-10-10 19:08 | DVHPN2 ---
Progress Note - Dictate Date Seen: Oct 10, 2024 Medical Necessity Reason Pt with a Central, PICC or Fol: Yes vital signs Vital Sign Date Time Temp Pulse Resp B/P (MAP) Pulse Ox O2 Delivery O2 Flow Rate FiO2 10/10/24 18:45 100.0 81 18 105/55 (72) 99 212.0 10/10/24 18:17 30 10/10/24 18:00 Mechanical Ventilator+ Total Intake and Output 10/09/24 10/09/24 10/10/24 15:00 23:00 07:00 Intake Total 622.64 ml 866.14 ml 1046.14 ml Output Total 1300 ml 650 ml Balance 622.64 ml -433.86 ml 396.14 ml medications Current Medications Medications Dose Ordered Sig/Liliam Route Start Time Stop Time Status Last Admin Dose Admin Midazolam HCl 50 ml @ 1 mls/hr Q24H IV 10/07/24 04:45 10/08/24 03:40 3 MLS/HR Fentanyl Citrate 250 ml @ 2.5 mls/hr Q24H IV 10/07/24 06:15 10/10/24 17:07 5 MLS/HR Ondansetron HCl 4 mg Q4HP PRN IV 10/07/24 10:00 Nitroglycerin 0.4 mg Q5MINP PRN SL 10/07/24 10:00 Morphine Sulfate 2 mg Q30M PRN IV 10/07/24 10:00 Pantoprazole Sodium 40 mg DAILY IV 10/07/24 10:00 10/10/24 10:31 40 MG Norepinephrine Bitartrate 250 ml @ 3.75 mls/hr Q24H IV 10/07/24 12:15 10/10/24 06:50 18.75 MLS/HR Furosemide 40 mg BIDD IV 10/07/24 18:00 10/10/24 17:51 40 MG Atorvastatin Calcium 40 mg HS PO 10/07/24 22:00 10/09/24 21:34 40 MG Aspirin 81 mg DAILY PO 10/08/24 10:00 10/10/24 11:19 81 MG Mexiletine HCl 150 mg TID GT 10/08/24 22:00 10/10/24 14:07 150 MG Acetaminophen 500 mg Q6HP PRN PO 10/08/24 22:30 10/09/24 21:26 500 MG Enteral Nutritional Formula 1,000 ml 55ML/HR GT 10/09/24 18:45 Esmolol HCl 250 ml @ 0 mls/hr Q0M IV 10/10/24 07:45 Heparin Sodium/ Dextrose 250 ml @ 11 mls/hr [id number] IV 10/10/24 08:30 10/10/24 17:06 11 MLS/HR Phenylephrine HCl 80 mg/Sodium Chloride 250 ml @ 7.5 mls/hr Q24H IV 10/10/24 09:30 10/10/24 10:20 21.563 MLS/HR Ertapenem 1 gm/ Sodium Chloride 50 ml @ 100 mls/hr DAILY IV 10/11/24 10:00 laboratory and microbiology Laboratory Tests 10/10/24 02:08 Test 10/10/24 02:08 Range/Units Serum Glucose 120 H 74-106 mg/dL Assessment/Plan Subjective History of Present Illness Mrs. Smith is a patient currently intubated and being treated in an intensive care setting. She has been experiencing elevated liver function tests and has undergone attempts at CPAP therapy. The patient underwent a CPAP trial from 1400 to 1600, during which she became restless and was not awake enough for the therapy to be effective. She is currently following commands and able to understand, indicating some level of responsiveness. The medical team has been managing her blood pressure with vasopressors, initially using similemophane, which was later changed to phenylephrine due to hypotension. She is also receiving heparin and has been given fentanyl briefly for comfort. Her liver function tests have been elevated, prompting a liver ultrasound to be ordered. The results of this ultrasound were pending at the time of discussion, which has delayed the initiation of feeding. Additionally, amiodarone was discontinued this morning by Dr. Decker. Medications and Supplements - Phenylephrine - Changed from similemophane - Heparin - Fentanyl - Used briefly - Amiodarone - Discontinued this morning Objective Physical Examination General: Patient is following commands. Neurological: Patient understands and follows commands. Laboratory, Imaging, and Diagnostic Test Results - LFTs: Elevated (specific values not provided) Assessment & Plan Mrs. Smith is a female patient currently intubated and being managed for respiratory insufficiency requiring CPAP trials and planned ICD placement. Respiratory insufficiency Assessment: Patient is currently intubated and has undergone CPAP trials from 1400 to 1600. The trial was unsuccessful as the patient was not awake enough and became restless. Current management focuses on respiratory support with planned extubation prior to ICD procedure. A subsequent CPAP trial is planned for [employer] with the goal of extubation. Plan: - Attempt CPAP trial early in the morning - If successful, proceed with extubation prior to ICD procedure - Monitor patient's response to CPAP and extubation Cardiac arrhythmia Assessment: Patient has a planned ICD placement, suggesting a history of life- threatening arrhythmias or high risk for sudden cardiac . Amiodarone was discontinued this morning by Dr. Decker, possibly in preparation for the ICD procedure. Patient requires close cardiac monitoring during this perioperative period. Plan: - Proceed with ICD placement tomorrow - Discontinued amiodarone - Monitor cardiac rhythm closely Elevated liver function tests Assessment: Patient has elevated liver function tests. A liver ultrasound has been ordered to evaluate the cause of the elevation, but results are pending. Current feeding plan is on hold pending further evaluation of hepatic function. Plan: - Await liver ultrasound results - Hold enteral feeding until liver ultrasound results are available - Reassess feeding plan based on ultrasound findings Hemodynamic instability Assessment: Patient appears to have experienced hypotension, necessitating vasopressor support. The vasopressor was changed to phenylephrine for blood pressure management. Hemodynamic status requires ongoing monitoring and support. Plan: - Continue phenylephrine for blood pressure support - Monitor hemodynamic status closely - Titrate vasopressors as needed Anticoagulation management Assessment: Patient is currently on heparin therapy, likely for prophylaxis or treatment of thromboembolism. Coagulation status requires ongoing monitoring during current hospitalization. Plan: - Continue heparin therapy - Monitor coagulation parameters Pain management Assessment: Patient received fentanyl briefly for pain control or sedation. Pain and sedation requirements need ongoing assessment in the intubated patient. Plan: - Administer fentanyl as needed for pain or sedation - Monitor pain levels and sedation requirements Dietary Evaluation Review Comments: 1) TF Jevity 1.2Cal @ 55 ml/hr. x 24hr along with Pro-stat 1 pk daily. Start @ 20ml/hr, increase 10ml/hr Q4H until goal is reached. TF @ goal volume provides 1684 kcal (100% energy needs), 88 gm protein (100% protein needs), 1065 ml free water. 2) Water flush 100ml Q4H if allowed, adjust PRN 3) Advance to cardiac diet as medically feasible 4) Monitor NPO status, lab values, wt trend, I/O Expected Outcomes/Goals: To meet >75% estimated needs within 7 days Lab values to improve Fu 2-3 days Plan discussed with: Patient, Other CARLOS WHITAKER MD Oct 10, 2024 19:08
[2024-10-10 21:32] LABS: Potassium 3.7 mmol/L (3.5-5.1)
[2024-10-10 21:38] LABS: Magnesium 1.9 mg/dL (1.6-2.6)
[2024-10-10] MEDS ORDERED: CIPROFLOXACIN 400MG/200ML 200 ML IV SCH (22:00)
[2024-10-10 22:05] LABS: INR 1.36 (0.9-1.15); Prothrombin Time 14.0 sec (9.3-11.8)
[2024-10-10 22:06] LABS: Partial Thromboplastin Time 53.8 SEC (24.5-34.5)
[2024-10-10] MEDS: ERTAPENEM SOD INJ 1 GM in SODIUM CHL 0.9% 50 ML IV SCH (22:34)
[2024-10-11] VITALS (102 sets, daily range): BP systolic 88–121; BP diastolic 38–71; PULSE 78–99; RESP 17–34; TEMP 64.9–99.5; O2SAT 97–100
[2024-10-11] MEDS: POTASSIUM CHL 20MEQ/100ML 100 ML IV SCH (00:39)
[2024-10-11] MEDS: MAGNESIUM SULFATE 1GM/100ML 100 ML IV SCH (00:40)
[2024-10-11 04:45] LABS: Hematocrit 24.3 % (36.0-46.0); Hemoglobin 8.0 g/dL (12.2-16.2); Mean Corpuscular Hemoglobin 30.4 pg (28.0-32.0); Mean Corpuscular Volume 92.3 fL (80.0-100.0); Nucleated Red Blood Cells % 0.2 %
[2024-10-11] MEDS: PHENYLEPHRINE HCL 10 MG/ML VL ONE (05:14)
[2024-10-11 05:15] LABS: INR 1.45 (0.9-1.15); Partial Thromboplastin Time 47.8 SEC (24.5-34.5); Prothrombin Time 14.8 sec (9.3-11.8)
--- NOTE | 2024-10-11 05:37 | DVH ---
CHEST RADIOGRAPH Indication: intubated Technique: Single frontal view of the chest was obtained COMPARISON: XY CHEST PORTABLE on DOS: 10/10/24, XY CHEST PORTABLE on DOS: 10/09/24, XY CHEST XRAY 1 VIE W on DOS: 10/08/24, XY CHEST XRAY 1 VIEW on DOS: 10/08/24, XY CHEST PORTABLE on DOS: 10/07/24 FINDINGS: Lines and Tubes: Unchanged. Lungs: Slight interval decrease in diffuse increased prominence of the pulmonary vasculature. Small left pleural effusion. No pneumothorax. Cardiomediastinal contours: Cardiomegaly status post median sternotomy. Bones: Unremarkable IMPRESSION: 1. Slight interval decrease in diffuse increased prominence of the pulmonary vasculature. 2. Stable cardiomegaly and small left pleural effusion. 3. Lines and tubes unchanged.
[2024-10-11] MEDS ORDERED: HEPARIN DRIP/D5W 100UNITS/ML 250 ML IV SCH (05:45)
[2024-10-11 07:13] LABS: Carbon Dioxide 26 mmol/L (20-31); Chloride 101 mmol/L (98-107)
[2024-10-11 07:14] LABS: Anion Gap 7 (5-15); BUN/Creatinine Ratio 14.7 (10.0-20.0); Blood Urea Nitrogen 10 mg/dL (9-23); Glucose 90 mg/dL (74-106); Magnesium 2.1 mg/dL (1.6-2.6); Potassium 4.0 mmol/L (3.5-5.1)
[2024-10-11 07:15] LABS: Bilirubin, Total 0.6 mg/dL (0.2-1.0)
[2024-10-11 07:16] LABS: Alanine Aminotransferase 191 U/L (7-40); Albumin 2.7 g/dL (3.2-4.8); Alkaline Phosphatase 152 U/L (46-116); Calcium 7.7 mg/dL (8.7-10.4); Sodium 134 mmol/L (136-145); Total Protein 5.1 g/dL (5.7-8.2)
[2024-10-11 07:22] LABS: Base Excess 0.8 mmol/L (-2.0-3.0)
--- NOTE | 2024-10-11 08:42 | ECG ---
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
--- NOTE | 2024-10-11 08:42 | ECG ---
[facility] Test Date: 2024-10-10 Test Time: 11:07:42 Pat Name: CLAIRE OLIVO Department: icu Room: [address] [place] [address] A Gender: F Outsole Rounder: Daniella LAWTON : 1970 Requested By: FREDERIC ACOSTA Order Number: [id number] Reading MD: Marito Skelton Measurements Intervals [place] Rate: 77 P: 0 AK: 0 QRS: -8 QRSD: 168 T: 28 QT: 502 QTc: 569 Interpretive Statements Atrial fibrillation IVCD, consider atypical LBBB Electronically Signed On 10-15-2024 22:13:20 PDT by Marito Skelton Please click the below link to view image of tracing.
--- NOTE | 2024-10-11 08:50 | DVHPN2 ---
Progress Note - Dictate Date Seen: Oct 11, 2024 Medical Necessity Reason Pt with a Central, PICC or Fol: Yes vital signs Vital Sign Date Time Temp Pulse Resp B/P (MAP) Pulse Ox O2 Delivery O2 Flow Rate FiO2 10/11/24 07:30 80 18 103/58 (73) 100 30 10/11/24 07:15 99.1 210.4 10/11/24 06:00 Mechanical Ventilator+ Total Intake and Output 10/10/24 10/10/24 10/11/24 15:00 23:00 07:00 Intake Total 534.2835 ml 413.004 ml 253.441 ml Output Total 1550 ml 1000 ml Balance 534.2835 ml -1136.996 ml -746.559 ml medications Current Medications Medications Dose Ordered Sig/Liliam Route Start Time Stop Time Status Last Admin Dose Admin Midazolam HCl 50 ml @ 1 mls/hr Q24H IV 10/07/24 04:45 10/11/24 02:30 1 MLS/HR Fentanyl Citrate 250 ml @ 2.5 mls/hr Q24H IV 10/07/24 06:15 10/10/24 17:07 5 MLS/HR Ondansetron HCl 4 mg Q4HP PRN IV 10/07/24 10:00 Nitroglycerin 0.4 mg Q5MINP PRN SL 10/07/24 10:00 Morphine Sulfate 2 mg Q30M PRN IV 10/07/24 10:00 Pantoprazole Sodium 40 mg DAILY IV 10/07/24 10:00 10/10/24 10:31 40 MG Norepinephrine Bitartrate 250 ml @ 3.75 mls/hr Q24H IV 10/07/24 12:15 10/10/24 06:50 18.75 MLS/HR Furosemide 40 mg BIDD IV 10/07/24 18:00 10/11/24 05:13 40 MG Atorvastatin Calcium 40 mg HS PO 10/07/24 22:00 10/10/24 22:33 40 MG Aspirin 81 mg DAILY PO 10/08/24 10:00 10/10/24 11:19 81 MG Mexiletine HCl 150 mg TID GT 10/08/24 22:00 10/10/24 14:07 150 MG Acetaminophen 500 mg Q6HP PRN PO 10/08/24 22:30 10/09/24 21:26 500 MG Enteral Nutritional Formula 1,000 ml 55ML/HR GT 10/09/24 18:45 Esmolol HCl 250 ml @ 0 mls/hr Q0M IV 10/10/24 07:45 Phenylephrine HCl 80 mg/Sodium Chloride 250 ml @ 7.5 mls/hr Q24H IV 10/10/24 09:30 10/11/24 05:13 21.563 MLS/HR Ertapenem 1 gm/ Sodium Chloride 50 ml @ 100 mls/hr DAILY IV 10/10/24 20:00 10/10/24 22:34 100 MLS/HR Heparin Sodium/ Dextrose 250 ml @ 13 mls/hr [id number] IV 10/11/24 05:45 laboratory and microbiology Laboratory Tests 10/11/24 06:35 10/11/24 03:23 Test 10/11/24 06:35 Range/Units Serum Glucose 90 74-106 mg/dL Assessment/Plan Patient is a 54-year-old female who was brought to the hospital for witnessed syncope. She is intubated and is being managed in ICU. Information was obtained by reviewing the chart and communicating with patient's son (over the phone). Family recognized witnessed syncope and started CPR and called EMS. Reportedly, EMS found the patient in ventricular fibrillation and shocked the patient and brought the patient to the hospital. Patient was intubated in emergency room and transferred to ICU. Patient was on amiodarone drip. Later the patient had ventricular tachycardia (Systane). High sensitive troponin had been minimally/flatly elevated. Presentation was not in favor of acute coronary syndrome. Cardiology is involved for cardiac aspects of care. Intubated. Noncommunicative. No JVD. Mucosa pale. No carotid bruit. Scattered rhonchi in the lungs is heard. Cardiac: Regular, no thrill. Systolic murmur 2/6 in apex is heard. Abdomen is soft. No edema in extremities. Past medical history as per son: Congenital heart disease, status post bypass WBC: 14.5 - 11.9 - 18.8 - 20.0 - 21.2 - 14.3 Hemoglobin: 10.1 - 9.6 - 9.2 - 8.8 - 8.7 - 8.0 Creatinine: 0.95 - 0.93 - 0.87 - 0.83 - 0.83 - 0.76 - 0.68 Potassium: 3.4 - 4.0 - 4.6 - 3.5 - 3.3 - 4.1 - 3.7 - 3.2 - 3.7 - 4.0 Magnesium: 2.0 - 1.6 - 2.0 - 3.0 - 1.5 - 1.9 - 2.1 Troponin (high sensitive): 141 - 138 - 117 BNP: 457.16 AST/ALT: 32/11 - 19/13 - 538/168 - 293/152 UDS: non-revealing Chest x-ray revealed: Lines and Tubes: Endotracheal tube tip projects approximately 1.4 cm above the level of the tyler. Enteric catheter courses below the lateral of the diaphragm and terminates beyond the inferior margin of the image. Right internal jugular central venous catheter terminates within the distal superior vena cava. Lungs: Moderate diffuse increased prominence of the pulmonary vasculature without evidence of focal consolidation. Pleura: No effusion. No pneumothorax. Cardiomediastinal contours: Cardiomegaly. Bones: Unremarkable IMPRESSION: 1. Cardiomegaly and diffuse increased prominence of the pulmonary vasculature. 2. Lines and tubes as above. Repeat chest x-ray revealed: IMPRESSION: 1. Endotracheal tube tip 1.6 cm above the tyler; consider 2 cm retraction 2. Mild pulmonary vascular congestion. Moderate cardiomegaly. Repeat chest xry revealed: IMPRESSION: Endotracheal tube tip 1.6 cm above the tyler; consider 2 cm retraction Mild pulmonary vascular congestion. Moderate cardiomegaly. Repeat chest xry revealed: IMPRESSION: 1. Stable cardiomegaly, small left pleural effusion and mild diffuse increased prominence of the pulmonary vasculature. 2. Repositioned endotracheal tube as above. Remaining lines and tubes unchanged. Repeat chest xry revealed: IMPRESSION: 1. Cardiomegaly, stable diffuse increased prominence of the pulmonary vasculature and small bilateral pleural effusions. 2. Slight interval advancement of endotracheal tube as above. Remaining lines and tubes unchanged. Repeat chest xry revealed: IMPRESSION: 1. Slight interval decrease in diffuse increased prominence of the pulmonary vasculature. 2. Stable cardiomegaly and small left pleural effusion. 3. Lines and tubes unchanged. Liver Ultrasound revealed: Hepatic steatosis. Hepatomegaly. Cholelithiasis. CT of the head revealed: IMPRESSION: No acute intracranial abnormality. Echocardiogram reported: lvef 15-20% dilated LV severe global dysfunction mild RV dysfunction biatrial enlargement mild moderate MAC, moderate mitral regurg mild to moderate aortic regug (images of echo reviewed and questioned presence of mitral ring and also some component (moderate of Mitral stenosis) EKG revealed sinus rhythm Telemetry revealed occasions of atrial fibrillation. There was occasional sustained ventricular tachycardia. EMS tele monitor revealed ventricular fibrillation for which the patient was shocked LHC revealed: Patent RICHMOND to LAD; Patent SVG to obtuse marginal; LVEF of 20% with increased EDP; Proximal disease in LAD/LCX RICHIE was performed: Consistent with severely reduced LVEF. Consistent with previously implanted Mitral ring, Up to moderate Mitral stenosis/Mitral Regurgitation and also Moderate Aortic insufficiency. Patient is a 54-year-old female who presented with witnessed syncope. She was found to have ventricular fibrillation for which was shocked. Later had repeated episode of sustained ventricular tachycardia. Patient has been kept in ICU. Does have baseline history of coronary artery disease for which has had bypass surgery. Left heart catheterization was performed which revealed patent R[place]D and patent SVG. ACS is not considered at this point. It is of note that the patient's echocardiogram reveals significantly use systolic function. Valvular heart disease is considered. Findings are in favor of previously implanted mitral ring. By reviewing the echo images, component of up to moderate mitral stenosis could not be ruled out. LHC was performed that ruled out any active specific ischemia as an etiology for presentation. Is off Amiodarone for abnormal LFT. Being followed by Nephrology / Pulmonary / Neurology / GI Syncope V-fib s/p shock Sustained V-tach Paroxysmal A-fib VHD, s/p Mitral ring Systolic heart failure Abnormal LFT Cardiac suggestion for management: Manage in ICU Follow up electrolytes and kidney function test and correct abnormalities Full anticoagulation (a-fib with high CHADS-Vasc score). On Heparin drip for now Off Amio drip (worsened LFT) Mexiletine If need for pressure support: use Phenyl Ephrine May consider Esmolol for PVC/Vtach EP Following ICD implantation as per EP Pulmonary Follow up Provide previous medical records from reaching out to previous hospitals in [facility]... Further evaluation and management depends on the above and clinical course. A total of 75 minutes was spent reviewing the patient record, examining the patient, making a diagnostic and therapeutic plan, discussing this plan with medical personnel, following up on diagnostic studies and following the patient for clinical stability excluding any and all procedures. At least 50% of this time was spent in direct, [id number] contact. Thank you for allowing me to participate in this patient's care. Further recommendations will depend on patient's clinical course. Please do not hesitate to contact me if you have any questions or concerns. This medical document was created using electronic medical record system with [employer] computerized dictation system. Although this document has been carefully reviewed, there may still be some phonetic and typographical errors. These areas are purely typographical due to the imperfection of the software programs, and do not reflect any compromise in the patient's medical care. Dietary Evaluation Review Comments: 1) TF Jevity 1.2Cal @ 55 ml/hr. x 24hr along with Pro-stat 1 pk daily. Start @ 20ml/hr, increase 10ml/hr Q4H until goal is reached. TF @ goal volume provides 1684 kcal (100% energy needs), 88 gm protein (100% protein needs), 1065 ml free water. 2) Water flush 100ml Q4H if allowed, adjust PRN 3) Advance to cardiac diet as medically feasible 4) Monitor NPO status, lab values, wt trend, I/O Expected Outcomes/Goals: To meet >75% estimated needs within 7 days Lab values to improve Fu 2-3 days Plan discussed with: Other (nurse) CORDELL VERA MD Oct 11, 2024 08:49
[2024-10-11] MEDS ORDERED: ERTAPENEM SOD INJ 1 GM in SODIUM CHL 0.9% 50 ML IV SCH (10:00)
--- NOTE | 2024-10-11 10:53 | DVHPN2 ---
Progress Note - Dictate Date Seen: Oct 11, 2024 Medical Necessity Reason Pt with a Central, PICC or Fol: Yes Subjective Ms. Kulkarnir is a 54 years old female who was brought to the [facility] on 10/07/2024 with a chief complaint of cardiopulmonary arrest/status post CPR. I have seen and examined the patient, I have discussed with her nurse, she failed CPAP yesterday, and sedation up titrated. She is responsive to strong painful stimuli, she has brainstem reflexes Fentanyl 150 mcg/hour, Versed 1 mg/hour, Neosyn 15 mcg/min Blood culture, 10/09/2024: UDS, 10/07/2024: Negative Urinalysis, 10/07/2024: Leukocyte esterase: Negative WBC/HB/PLT/MCV, 10/09/2024: 20/8.8/219/94.6, 10/10/2024: 21.2/8.7/232/92.2 PT/INR/PTT, 10/08/2024: 12.4/1.19/72.7, 10/09/2024: 13.1/1.26/68.9, 10/10/2024: 14.4/2/1.38/35.3 CMP, 10/08/2024: Unremarkable Troponin one high sensitivity, 10/07/2024: 141, 138, 117 TBI/AST/ALT/AP, 10/10/2024: 0.5/538/168/144, 10/11/2024: 0.6/293/199/152 TG/HDL/LDL/HDL, 10/07/24: 71/66/31/21 Echocardiogram, 10/07/2024: lvef 15-20% dilated LV severe global dysfunction mild RV dysfunction biatrial enlargement mild moderate MAC, moderate mitral regurg mild to moderate aortic regug RICHIE, 10/08/2024: 1. Left ventricle: Dilated LV was seen. LVEF was 25%. There was diffuse hypokinesis of left ventricle. 2. Right ventricle: RV was mildly dilated. 3. Left atrium: LA enlarged 4. Right atrium: RA was enlarged. 5. Mitral valve: Mitral was thickened with reduced opening. Moderate Mitral regurgitation was seen. Planinomentry of valve (TTE images also obtained) revealed MVA of 2.1 cm. Mean pressure gradient (obtained from limited TTE images) was 5. Images are consistent with previously implanted Ring in Mitral position. Consistent with up to Moderate Mitral stenosis. . There was no vegetation 6. Left atrial appendage: No evidence of thrombus. 7. Aortic valve: Trileaflet valve. No stenosis. Up to moderate Aortic Insufficiency was seen. There was no vegetation 8. Pulmonic valve: Trivial pulmonic insufficiency. No significant stenosis. 9. Tricuspid valve: Mild tricuspid regurgitation. There was no vegetation 10. Interatrial septum: Negative color flow for right to left shunt was observed. Bubble study was performed: negative for shunt 11. Pericardium: No significant effusion. 12. Thoracic aorta: No significant plaquing. Chest x-ray, 10/27/2024: 1. Cardiomegaly, stable diffuse increased prominence of the pulmonary vasculature and small bilateral pleural effusions. 2. Slight interval advancement of endotracheal tube as above. Remaining lines and tubes unchanged. CT head, 10/07/2024: No acute intracranial abnormality General: the patient is well developed and nourished. No acute distress. Intubated vital signs Vital Sign Date Time Temp Pulse Resp B/P (MAP) Pulse Ox O2 Delivery O2 Flow Rate FiO2 10/11/24 10:00 30 10/11/24 10:00 99.1 82 19 95/53 (67) 210.4 10/11/24 09:56 100 10/11/24 08:00 Mechanical Ventilator+ Total Intake and Output 10/10/24 10/10/24 10/11/24 15:00 23:00 07:00 Intake Total 534.2835 ml 413.004 ml 291.004 ml Output Total 1550 ml 1000 ml Balance 534.2835 ml -1136.996 ml -708.996 ml medications Current Medications Medications Dose Ordered Sig/Liliam Route Start Time Stop Time Status Last Admin Dose Admin Midazolam HCl 50 ml @ 1 mls/hr Q24H IV 10/07/24 04:45 10/11/24 02:30 1 MLS/HR Fentanyl Citrate 250 ml @ 2.5 mls/hr Q24H IV 10/07/24 06:15 10/10/24 17:07 5 MLS/HR Ondansetron HCl 4 mg Q4HP PRN IV 10/07/24 10:00 Nitroglycerin 0.4 mg Q5MINP PRN SL 10/07/24 10:00 Morphine Sulfate 2 mg Q30M PRN IV 10/07/24 10:00 Pantoprazole Sodium 40 mg DAILY IV 10/07/24 10:00 10/11/24 09:41 40 MG Norepinephrine Bitartrate 250 ml @ 3.75 mls/hr Q24H IV 10/07/24 12:15 10/10/24 06:50 18.75 MLS/HR Furosemide 40 mg BIDD IV 10/07/24 18:00 10/11/24 05:13 40 MG Atorvastatin Calcium 40 mg HS PO 10/07/24 22:00 10/10/24 22:33 40 MG Aspirin 81 mg DAILY PO 10/08/24 10:00 10/11/24 09:42 81 MG Mexiletine HCl 150 mg TID GT 10/08/24 22:00 10/10/24 14:07 150 MG Acetaminophen 500 mg Q6HP PRN PO 10/08/24 22:30 10/09/24 21:26 500 MG Enteral Nutritional Formula 1,000 ml 55ML/HR GT 10/09/24 18:45 Esmolol HCl 250 ml @ 0 mls/hr Q0M IV 10/10/24 07:45 Phenylephrine HCl 80 mg/Sodium Chloride 250 ml @ 7.5 mls/hr Q24H IV 10/10/24 09:30 10/11/24 05:13 21.563 MLS/HR Ertapenem 1 gm/ Sodium Chloride 50 ml @ 100 mls/hr DAILY IV 10/10/24 20:00 10/11/24 09:41 100 MLS/HR Heparin Sodium/ Dextrose 250 ml @ 13 mls/hr [id number] IV 10/11/24 05:45 objective The patient is well-nourished and well-developed with no distress. The patient is intubated MENTAL STATUS: Subjective CRANIAL NERVES: Pupils are equal, round and reactive.There are corneal reflexes and doll's eyes phenomenon. No signs of facial weakness. There are gagging or coughing reflexes SENSATION: Responses to pain stimuli. MOTOR: Normal tone in the upper and lower extremity. Normal muscle bulk. No fasciculations. No spontaneous movement. REFLEXES: Deep tendon reflexes are symmetrical. No pathological reflexes. CEREBELLAR/COORDINATION: Deferred GAIT/STATION: deferred. laboratory and microbiology Laboratory Tests 10/11/24 06:35 10/11/24 03:23 Test 10/11/24 06:35 Range/Units Serum Glucose 90 74-106 mg/dL Problem List Cardiopulmonary arrest Status post CPR Metabolic encephalopathy Hypoxic encephalopathy Congestive heart failure Leukocytosis/sepsis Respiratory failure Elevated liver function tests She is waking up Assessment/Plan Monitoring Supportive treatment ICU care Stabilize vitals Respiratory support/vent management Follow up CT head Hold off Lipitor if okay with PCP DVT prophylaxis GI prophylaxis Cardiology on case Pulmonology on case Nephrology on case Consult GI Re: Elevated liver function tests Need more history This medical document was created using an electronic medical record system with [employer] dictation system. Although this document has been carefully reviewed, there may still be some phonetic and typographical errors. These areas are purely typographical due to imperfections of the software programs, and do not reflect any compromise in the patient's medical care. Prognosis guarded Dietary Evaluation Review Comments: 1) TF Jevity 1.2Cal @ 55 ml/hr. x 24hr along with Pro-stat 1 pk daily. Start @ 20ml/hr, increase 10ml/hr Q4H until goal is reached. TF @ goal volume provides 1684 kcal (100% energy needs), 88 gm protein (100% protein needs), 1065 ml free water. 2) Water flush 100ml Q4H if allowed, adjust PRN 3) Advance to cardiac diet as medically feasible 4) Monitor NPO status, lab values, wt trend, I/O Expected Outcomes/Goals: To meet >75% estimated needs within 7 days Lab values to improve Fu 2-3 days Plan discussed with: Other Critical Care Time(min): 30 CAROLINE ROBB MD Oct 11, 2024 10:53
--- NOTE | 2024-10-11 11:11 | DVH ---
EXAM: CT HEAD WITHOUT CONTRAST INDICATION: Status post CPR TECHNIQUE: CT of the head without intravenous contrast. Radiation Dose Information: CT Dose: CTDI volume is 58.77 mGy. Dose-length product is 1128.73 mGy*cm The dose indicators for CT are the volume Computed Tomography (CT) Dose Index (CTDIvol) and the Dose Length Product (DLP), and are measured in units of mGy and mGy-cm, respectively. These indicators are not patient dose, but values generated from the CT scanner acquisition factors. The report includes radiation exposure data for exposures received during this examination. COMPARISON: CT HEAD WITHOUT CONTRAST on DOS: 10/07/24 FINDINGS: There is no evidence of acute intracranial hemorrhage, extra-axial collection, mass effect, midline s hift, herniation or hydrocephalus. The ventricles, sulci and cisterns are age appropriate. The smith-white differentiation is intact. Patchy periventricular and subcortical white matter hypoattenuation is nonspecific but may be related to small vessel ischemic disease. The visualized paranasal sinuses and mastoid air cells are clear. The surrounding soft tissues and osseous structures are unremarkable. IMPRESSION: No acute intracranial abnormality.
[2024-10-11 12:01] LABS: INR 1.34 (0.9-1.15); Partial Thromboplastin Time 36.7 SEC (24.5-34.5); Prothrombin Time 13.8 sec (9.3-11.8)
--- NOTE | 2024-10-11 12:20 | CONS ---
Pharmacy Clinical Information: HEPARIN DRIP, ACS PROTOCOL @0938 APTT 36.7 - NO BOLUS, INCREASE HEPARIN DRIP RATE TO 1500 UNITS/HR NEXT APTT DRAW SCHEDULED @1800 PER RX PROTOCOL CONFIRMED AND READ BACK WITH RN ELZBIETA CORBETT [facility] RESIDENT Oct 11, 2024 12:19
[2024-10-11] MEDS: HEPARIN DRIP/D5W 100UNITS/ML 250 ML IV SCH ×2 (12:27→21:13)
--- NOTE | 2024-10-11 12:30 | DVHPN2 ---
Progress Note Date Seen: Oct 11, 2024 Medical Necessity Reason Pt with a Central, PICC or Fol: Yes Subjective Patient reports: Other Objective vital signs Vital Sign Date Time Temp Pulse Resp B/P (MAP) Pulse Ox O2 Delivery O2 Flow Rate FiO2 10/11/24 11:15 99.0 83 18 112/67 (82) 100 210.2 10/11/24 10:00 Mechanical Ventilator+ 30 30 Total Intake and Output 10/10/24 10/10/24 10/11/24 15:00 23:00 07:00 Intake Total 534.2835 ml 413.004 ml 291.004 ml Output Total 1550 ml 1000 ml Balance 534.2835 ml -1136.996 ml -708.996 ml medications Current Medications Medications Dose Ordered Sig/Liliam Route Start Time Stop Time Status Last Admin Dose Admin Midazolam HCl 50 ml @ 1 mls/hr Q24H IV 10/07/24 04:45 10/11/24 02:30 1 MLS/HR Fentanyl Citrate 250 ml @ 2.5 mls/hr Q24H IV 10/07/24 06:15 10/10/24 17:07 5 MLS/HR Ondansetron HCl 4 mg Q4HP PRN IV 10/07/24 10:00 Nitroglycerin 0.4 mg Q5MINP PRN SL 10/07/24 10:00 Morphine Sulfate 2 mg Q30M PRN IV 10/07/24 10:00 Pantoprazole Sodium 40 mg DAILY IV 10/07/24 10:00 10/11/24 09:41 40 MG Norepinephrine Bitartrate 250 ml @ 3.75 mls/hr Q24H IV 10/07/24 12:15 10/10/24 06:50 18.75 MLS/HR Furosemide 40 mg BIDD IV 10/07/24 18:00 10/11/24 05:13 40 MG Atorvastatin Calcium 40 mg HS PO 10/07/24 22:00 10/10/24 22:33 40 MG Aspirin 81 mg DAILY PO 10/08/24 10:00 10/11/24 09:42 81 MG Mexiletine HCl 150 mg TID GT 10/08/24 22:00 10/10/24 14:07 150 MG Acetaminophen 500 mg Q6HP PRN PO 10/08/24 22:30 10/09/24 21:26 500 MG Enteral Nutritional Formula 1,000 ml 55ML/HR GT 10/09/24 18:45 Esmolol HCl 250 ml @ 0 mls/hr Q0M IV 10/10/24 07:45 Phenylephrine HCl 80 mg/Sodium Chloride 250 ml @ 7.5 mls/hr Q24H IV 10/10/24 09:30 10/11/24 05:13 21.563 MLS/HR Ertapenem 1 gm/ Sodium Chloride 50 ml @ 100 mls/hr DAILY IV 10/10/24 20:00 10/11/24 09:41 100 MLS/HR Heparin Sodium/ Dextrose 250 ml @ 15 mls/hr [id number] IV 10/11/24 12:15 Examination: GENERAL:Abnormal, MSK:Normal, NEURO:Abnormal laboratory and microbiology Laboratory Tests 10/11/24 06:35 10/11/24 03:23 Test 10/11/24 06:35 Range/Units Serum Glucose 90 74-106 mg/dL Microbiology Date/Time Source Procedure Growth Status 10/09/24 08:49 Blood Blood Culture - Preliminary NO GROWTH AFTER 48 HOURS OF INCUBATION. Resulted 10/07/24 16:50 Nose MRSA Screen - Final Complete 10/07/24 04:26 Sputum Gram Stain - Final Complete 10/07/24 04:26 Respiratory Culture - Final Enterobacter cloacae Complete Problem List/Assessment/Plan Problem List/Assessment/Plan hypokalemia hyponatremia proteinuria Cardiac arrest status post V-tach chfref ef 15-20 VDRF recs check myeloma panel as ordered Potassium replace needed/on /iv lasix Cardiology workup ongoing Renal function stable now Plan discussed with: Other My Orders My Orders Orders - OLIVIER GOMEZ MD Procedure Category Date Status Time Immunofixation Serum LAB 10/11/24 In Process 04:00 Hgb Electrophoresis LAB 10/11/24 In Process 04:00 Tabiona Lambda Lite LAB 10/11/24 In Process Chain Free S 04:00 Dietary Evaluation Review Comments: 1) TF Jevity 1.2Cal @ 55 ml/hr. x 24hr along with Pro-stat 1 pk daily. Start @ 20ml/hr, increase 10ml/hr Q4H until goal is reached. TF @ goal volume provides 1684 kcal (100% energy needs), 88 gm protein (100% protein needs), 1065 ml free water. 2) Water flush 100ml Q4H if allowed, adjust PRN 3) Advance to cardiac diet as medically feasible 4) Monitor NPO status, lab values, wt trend, I/O Expected Outcomes/Goals: To meet >75% estimated needs within 7 days Lab values to improve Fu 2-3 days OLIVIER GOMEZ MD Oct 11, 2024 12:30
--- NOTE | 2024-10-11 15:14 | DVHPN2 ---
Progress Note - Dictate Date Seen: Oct 11, 2024 Medical Necessity Reason Pt with a Central, PICC or Fol: Yes vital signs Vital Sign Date Time Temp Pulse Resp B/P (MAP) Pulse Ox O2 Delivery O2 Flow Rate FiO2 10/11/24 14:05 83 18 113/69 (84) 100 30 10/11/24 14:00 Mechanical Ventilator+ 10/11/24 13:45 99.0 210.2 Total Intake and Output 10/10/24 10/10/24 10/11/24 15:00 23:00 07:00 Intake Total 534.2835 ml 413.004 ml 291.004 ml Output Total 1550 ml 1000 ml Balance 534.2835 ml -1136.996 ml -708.996 ml medications Current Medications Medications Dose Ordered Sig/Liliam Route Start Time Stop Time Status Last Admin Dose Admin Midazolam HCl 50 ml @ 1 mls/hr Q24H IV 10/07/24 04:45 10/11/24 02:30 1 MLS/HR Fentanyl Citrate 250 ml @ 2.5 mls/hr Q24H IV 10/07/24 06:15 10/11/24 15:04 15 MLS/HR Ondansetron HCl 4 mg Q4HP PRN IV 10/07/24 10:00 Nitroglycerin 0.4 mg Q5MINP PRN SL 10/07/24 10:00 Morphine Sulfate 2 mg Q30M PRN IV 10/07/24 10:00 Pantoprazole Sodium 40 mg DAILY IV 10/07/24 10:00 10/11/24 09:41 40 MG Norepinephrine Bitartrate 250 ml @ 3.75 mls/hr Q24H IV 10/07/24 12:15 10/10/24 06:50 18.75 MLS/HR Furosemide 40 mg BIDD IV 10/07/24 18:00 10/11/24 05:13 40 MG Atorvastatin Calcium 40 mg HS PO 10/07/24 22:00 10/10/24 22:33 40 MG Aspirin 81 mg DAILY PO 10/08/24 10:00 10/11/24 09:42 81 MG Mexiletine HCl 150 mg TID GT 10/08/24 22:00 10/11/24 13:58 150 MG Acetaminophen 500 mg Q6HP PRN PO 10/08/24 22:30 10/09/24 21:26 500 MG Enteral Nutritional Formula 1,000 ml 55ML/HR GT 10/09/24 18:45 Esmolol HCl 250 ml @ 0 mls/hr Q0M IV 10/10/24 07:45 Phenylephrine HCl 80 mg/Sodium Chloride 250 ml @ 7.5 mls/hr Q24H IV 10/10/24 09:30 10/11/24 05:13 21.563 MLS/HR Ertapenem 1 gm/ Sodium Chloride 50 ml @ 100 mls/hr DAILY IV 10/10/24 20:00 10/11/24 09:41 100 MLS/HR Heparin Sodium/ Dextrose 250 ml @ 15 mls/hr [id number] IV 10/11/24 12:15 10/11/24 15:09 15 MLS/HR laboratory and microbiology Laboratory Tests 10/11/24 06:35 10/11/24 03:23 Test 10/11/24 06:35 Range/Units Serum Glucose 90 74-106 mg/dL Assessment/Plan s/p cardiac arrest VT CPR <5 min elevated troponin acute resp failure atelectases pt seen and examined on the ICU events off sedation on mechanical ventilation white count trending up blood cultures pending management plan when more awake proceed to weaning PS 7/5 cont abx monitor cx monitor labs renal function daily abg and CXR dvt proph/on heparin drip crit care time 35 min Dietary Evaluation Review Comments: 1) TF Jevity 1.2Cal @ 55 ml/hr. x 24hr along with Pro-stat 1 pk daily. Start @ 20ml/hr, increase 10ml/hr Q4H until goal is reached. TF @ goal volume provides 1684 kcal (100% energy needs), 88 gm protein (100% protein needs), 1065 ml free water. 2) Water flush 100ml Q4H if allowed, adjust PRN 3) Advance to cardiac diet as medically feasible 4) Monitor NPO status, lab values, wt trend, I/O Expected Outcomes/Goals: To meet >75% estimated needs within 7 days Lab values to improve Fu 2-3 days BELLO ROTHMAN MD Oct 11, 2024 15:14
--- NOTE | 2024-10-11 16:36 | DVHPN2 ---
Progress Note Medical Necessity Reason Pt with a Central, PICC or Fol: Yes Objective vital signs Vital Sign Date Time Temp Pulse Resp B/P (MAP) Pulse Ox O2 Delivery O2 Flow Rate FiO2 10/11/24 16:15 98.4 82 18 102/68 (79) 100 209.1 10/11/24 16:00 Mechanical Ventilator+ 30 30 Total Intake and Output 10/10/24 10/10/24 10/11/24 15:00 23:00 07:00 Intake Total 534.2835 ml 413.004 ml 291.004 ml Output Total 1550 ml 1000 ml Balance 534.2835 ml -1136.996 ml -708.996 ml medications Current Medications Medications Dose Ordered Sig/Liliam Route Start Time Stop Time Status Last Admin Dose Admin Midazolam HCl 50 ml @ 1 mls/hr Q24H IV 10/07/24 04:45 10/11/24 02:30 1 MLS/HR Fentanyl Citrate 250 ml @ 2.5 mls/hr Q24H IV 10/07/24 06:15 10/11/24 15:04 15 MLS/HR Ondansetron HCl 4 mg Q4HP PRN IV 10/07/24 10:00 Nitroglycerin 0.4 mg Q5MINP PRN SL 10/07/24 10:00 Morphine Sulfate 2 mg Q30M PRN IV 10/07/24 10:00 Pantoprazole Sodium 40 mg DAILY IV 10/07/24 10:00 10/11/24 09:41 40 MG Norepinephrine Bitartrate 250 ml @ 3.75 mls/hr Q24H IV 10/07/24 12:15 10/10/24 06:50 18.75 MLS/HR Furosemide 40 mg BIDD IV 10/07/24 18:00 10/11/24 05:13 40 MG Atorvastatin Calcium 40 mg HS PO 10/07/24 22:00 10/10/24 22:33 40 MG Aspirin 81 mg DAILY PO 10/08/24 10:00 10/11/24 09:42 81 MG Mexiletine HCl 150 mg TID GT 10/08/24 22:00 10/11/24 13:58 150 MG Acetaminophen 500 mg Q6HP PRN PO 10/08/24 22:30 10/09/24 21:26 500 MG Enteral Nutritional Formula 1,000 ml 55ML/HR GT 10/09/24 18:45 Esmolol HCl 250 ml @ 0 mls/hr Q0M IV 10/10/24 07:45 Phenylephrine HCl 80 mg/Sodium Chloride 250 ml @ 7.5 mls/hr Q24H IV 10/10/24 09:30 10/11/24 05:13 21.563 MLS/HR Ertapenem 1 gm/ Sodium Chloride 50 ml @ 100 mls/hr DAILY IV 10/10/24 20:00 10/11/24 09:41 100 MLS/HR Heparin Sodium/ Dextrose 250 ml @ 15 mls/hr [id number] IV 10/11/24 12:15 10/11/24 15:09 15 MLS/HR laboratory and microbiology Laboratory Tests 10/11/24 06:35 10/11/24 03:23 Test 10/11/24 06:35 Range/Units Serum Glucose 90 74-106 mg/dL Microbiology Date/Time Source Procedure Growth Status 10/09/24 08:49 Blood Blood Culture - Preliminary NO GROWTH AFTER 48 HOURS OF INCUBATION. Resulted 10/07/24 16:50 Nose MRSA Screen - Final Complete 10/07/24 04:26 Sputum Gram Stain - Final Complete 10/07/24 04:26 Respiratory Culture - Final Enterobacter cloacae Complete Dietary Evaluation Review Comments: 1) TF Jevity 1.2Cal @ 55 ml/hr. x 24hr along with Pro-stat 1 pk daily. Start @ 20ml/hr, increase 10ml/hr Q4H until goal is reached. TF @ goal volume provides 1684 kcal (100% energy needs), 88 gm protein (100% protein needs), 1065 ml free water. 2) Water flush 100ml Q4H if allowed, adjust PRN 3) Advance to cardiac diet as medically feasible 4) Monitor NPO status, lab values, wt trend, I/O Expected Outcomes/Goals: To meet >75% estimated needs within 7 days Lab values to improve Fu 2-3 days SHANKAR VALDEZ RESIDENT Oct 11, 2024 16:36
--- NOTE | 2024-10-11 16:41 | DVHCONRES ---
Date Seen: Oct 11, 2024 Resident Creating Document: SHANKAR VALDEZ RESIDENT Referring Physician Gissel Gomez Np Reason for Consultation ELEVATED LFT'S History of Present Illness The patient is a 54-year-old female admitted to the ICU following a witnessed cardiac arrest at home. CPR was initiated by EMS for ventricular tachycardia/ventricular fibrillation; she was defibrillated and stabilized. She has a significant cardiac history including s/p Congenital heart disease, bypass surgery, valvular heart disease s/p mitral ring repair, paroxysmal atrial fibrillation, sustained ventricular tachycardia, and systolic heart failure (EF ~20%). The GI service was consulted for evaluation of elevated liver enzymes. * LFTs initially markedly elevated (AST 538 U/L, ALT 168 U/L, ALP 144 U/L, TBili 0.5 mg/dL) * LFTs now trending down (AST 293 U/L, ALT 191 U/L, ALP 152 U/L, TBili 0.6 mg/dL) after discontinuation of amiodarone infusion, which was started post- arrest for arrhythmia control. * Hepatitis panel negative (Hep A IgM Ab, Hep B surface antigen, Hep B core IgM Ab, Hep C Ab all negative). * RUQ ultrasound: Hepatic steatosis, hepatomegaly, cholelithiasis without cholecystitis or ductal dilatation. * Patient is currently receiving enteral nutrition via GT at 55 mL/hr (1.2 Ron/Fiber formula). She remains intubated and sedated on mechanical ventilation. No overt GI bleeding, hematemesis, or melena reported. No jaundice observed. Past Medical History * Congenital heart disease, s/p CABG and mitral ring repair * Valvular heart disease (moderate mitral stenosis/regurgitation, moderate aortic insufficiency) * Systolic heart failure (EF 20%) * Paroxysmal atrial fibrillation * Sustained ventricular tachycardia * No documented chronic liver disease Past Surgical History * Coronary artery bypass graft * Mitral valve ring placement Family History: Alcoholism Cardiovascular disease G8 MOTHER Social History Lives with family Allergies: Coded Allergies: NO KNOWN ALLERGIES (Unverified , 10/07/24) Current Medications Current Medications Medications (Trade) Dose Ordered Sig/Liliam Route PRN Reason Start Time Stop Time Status Last Admin Ciprofloxacin 200 ml @ 200 mls/hr Q12HR IV 10/10/24 22:00 10/10/24 11:32 DC Ertapenem 1 gm/ Sodium Chloride 50 ml @ 100 mls/hr DAILY IV 10/11/24 10:00 10/10/24 19:42 DC Ertapenem 1 gm/ Sodium Chloride 50 ml @ 100 mls/hr DAILY IV 10/10/24 20:00 10/11/24 09:41 Potassium Chloride 100 ml @ 50 mls/hr Q2H IV 10/10/24 23:00 10/11/24 02:59 DC 10/11/24 03:05 Magnesium Sulfate/ Dextrose 100 ml @ 100 mls/hr Q1HR IV 10/10/24 23:00 10/11/24 00:59 DC 10/11/24 03:05 Heparin Sodium/ Dextrose 250 ml @ 13 mls/hr [id number] IV 10/11/24 05:45 10/11/24 12:19 DC Heparin Sodium/ Dextrose 250 ml @ 15 mls/hr [id number] IV 10/11/24 12:15 10/11/24 15:09 Review of Systems * Constitutional: Denies fever, chills, malaise. * GI: Denies nausea, vomiting, diarrhea, constipation. No abdominal pain reported. * Skin: No jaundice, rash, or pruritus. * Neuro: Following some commands; sedated. * All other systems reviewed and negative as per chart. Vital Signs Vital Signs Date Time Temp Pulse Resp B/P (MAP) Pulse Ox O2 Delivery O2 Flow Rate FiO2 10/11/24 16:15 98.4 82 18 102/68 (79) 100 209.1 10/11/24 16:00 Mechanical Ventilator+ 30 30 Physical Exam * General: Intubated, sedated, on mechanical ventilation * Abdomen: Soft, nondistended, non-tender, no palpable hepatosplenomegaly * Skin: No jaundice, no spider angiomata, no palmar erythema * Neuro: Limited by sedation; no overt asterixis Labs/Diagnostic Data Labs Test 10/11/24 09:38 10/11/24 07:11 10/11/24 06:35 10/11/24 03:23 Range/Units Prothrombin Time 13.8 H 9.3-11.8 sec Prothrombin Time INR 1.34 H 0.9-1.15 Activated Partial Thromboplast Time 36.7 H 24.5-34.5 SEC Blood Gas Specimen Type Arterial Blood Gas Sample Site Right radial Blood Gas Patient Temperature 37.0 Arterial Blood Date Drawn [id number] Arterial Blood pH 7.453 H 7.350-7.450 Arterial Blood Partial Pressure CO2 35.8 32.0-45.0 mmHg Arterial Blood Partial Pressure O2 123.3 H 83.0-108.0 mmHg Arterial Blood HCO3 24.5 21.0-28.0 mmol/L Arterial Blood Oxygen Saturation 97.7 94.0-98.0 % Arterial Blood Base Excess 0.8 -2.0-3.0 mmol/L Arterial Blood Oxyhemoglobin 96.7 94.0-98.0 % Arterial Blood Carboxyhemoglobin 0.2 L 0.5-1.5 % Arterial Blood Methemoglobin 0.8 0.0-1.5 % Trung Test Modified Blood Gas Total Hemoglobin 10.40 L 12.0-16.0 g/dL Blood Gas Set Respiration Rate 18.0 Blood Gas Modality Vent - ac FiO2 % 30.0 Blood Gas Tidal Volume 450.0 Blood Gas PEEP or CPAP 5.0 Sodium Level 134 L 136-145 mmol/L Potassium Level 4.0 3.5-5.1 mmol/L Chloride Level 101 98-107 mmol/L Carbon Dioxide Level 26 20-31 mmol/L Anion Gap 7 5-15 Blood Urea Nitrogen 10 9-23 mg/dL Creatinine 0.68 0.550-1.02 mg/dL Glomerular Filtration Rate Calc 103 >90 mL/min BUN/Creatinine Ratio 14.7 10.0-20.0 Serum Glucose 90 74-106 mg/dL Calcium Level 7.7 L 8.7-10.4 mg/dL Magnesium Level 2.1 1.6-2.6 mg/dL Total Bilirubin 0.6 0.2-1.0 mg/dL Aspartate Amino Transferase (AST) 293 H 13-40 U/L Alanine Aminotransferase (ALT) 191 H 7-40 U/L Alkaline Phosphatase 152 H 46-116 U/L Total Protein 5.1 L 5.7-8.2 g/dL Albumin 2.7 L 3.2-4.8 g/dL White Blood Count 14.3 #H 4.4-10.8 10^3/uL Red Blood Count 2.64 L 4.0-5.20 10^6/uL Hemoglobin 8.0 L 12.2-16.2 g/dL Hematocrit 24.3 L 36.0-46.0 % Mean Corpuscular Volume 92.3 80.0-100.0 fL Mean Corpuscular Hemoglobin 30.4 28.0-32.0 pg Mean Corpuscular Hemoglobin Concent 33.0 32.0-36.0 g/dL Red Cell Distribution Width 20.3 H 11.8-14.3 % Platelet Count 208 140-450 10^3/uL Mean Platelet Volume 9.8 6.9-10.8 fL Neutrophils (%) (Auto) 82.2 H 37.0-80.0 % Lymphocytes (%) (Auto) 12.0 10.0-50.0 % Monocytes (%) (Auto) 5.6 0.0-12.0 % Eosinophils (%) (Auto) 0.1 0.0-7.0 % Basophils (%) (Auto) 0.1 0.0-2.0 % Neutrophils # (Auto) 11.8 H 1.6-8.6 10 ^3/uL Lymphocytes # (Auto) 1.7 0.4-5.4 10 ^3/uL Monocytes # (Auto) 0.8 0-1.3 10 ^3/uL Eosinophils # (Auto) 0 0-0.8 10 ^3/uL Basophils # (Auto) 0 0-0.2 10 ^3/uL Nucleated Red Blood Cells 0.2 % Test 10/09/24 22:25 10/07/24 22:13 10/07/24 14:09 10/07/24 10:56 Range/Units Urine Creatinine 31.20 30.0-125.0 mg/dL Urine Protein/Creatinine Ratio 0.72 Urine Sodium 79 40-220 mmol/L Urine Total Protein 22.5 H 1-14 mg/dL Blood Gas Spontaneous Rate 20 Blood Gas Spontaneous Tidal Volume 488 Blood Gas Critical Value Read Back Yes Blood Gas Notified Whom Md sarkis rodas Blood Gas Notified Time [id number] Blood Gas Notified By Gerry crane Troponin I High Sensitivity 117 *H </=34 ng/L B-Type Natriuretic Peptide 457.16 0-100 pg/mL Triglycerides Level 71 < 150 mg/dL Cholesterol Level 66 < 200 mg/dL LDL Cholesterol 31 < 100 mg/dL HDL Cholesterol 21 L 40-59 mg/dL Test 10/07/24 06:17 10/07/24 05:40 10/07/24 04:12 Range/Units Urine Color Yellow Yellow Urine Clarity Turbid H Clear Urine pH 6.0 5.0-9.0 Urine Specific Marshall 1.033 1.001-1.035 Urine Protein 3+ H Negative Urine Ketones Trace Negative Urine Blood 1+ H Negative /uL Urine Nitrite Negative Negative Urine Bilirubin Negative Negative Urine Urobilinogen 3 H Negative mg/dL Urine Leukocyte Esterase Negative Negative /uL Urine Glucose 1+ H Normal mg/dL Urine Opiates Screen Neg NEGATIVE Urine Fentanyl Screen Neg NEGATIVE Urine Barbiturates Screen Neg NEGATIVE Urine Phencyclidine Screen Neg NEGATIVE Urine Amphetamines Screen Neg NEGATIVE Urine Benzodiazepines Screen Neg NEGATIVE Urine Cocaine Screen Neg NEGATIVE Urine Cannabinoids Screen Neg NEGATIVE Lactic Acid Level 2.0 0.4-2.0 mmol/L Differential Total Cells Counted 100.0 100 Neutrophils % (Manual) 54 37.0-80.0 Band Neutrophils % (Manual) 1 Lymphocytes % (Manual) 37 10.0-50.0 Monocytes % (Manual) 7 0-12 Eosinophils % (Manual) 1 0-7 Basophils % (Manual) 0 0.0-2.0 Metamyelocytes % (manual) 0 Myelocytes % (Manual) 0 Promyelocytes % (Manual) 0 Blast Cells % (Manual) 0 Reactive Lymphocytes 0 Platelet Estimate Adequate Microbiology Date/Time Source Procedure Growth Status 10/09/24 08:49 Blood Blood Culture - Preliminary NO GROWTH AFTER 48 HOURS OF INCUBATION. Resulted 10/07/24 16:50 Nose MRSA Screen - Final Complete 10/07/24 04:26 Sputum Gram Stain - Final Complete 10/07/24 04:26 Respiratory Culture - Final Enterobacter cloacae Complete Assessment Acute hepatocellular injury most likely drug-induced hepatotoxicity from amiodarone NAFLD with steatohepatitis Cholelithiasis without acute inflammation Plan/Recommendation Plan Hepatic / GI * Continue to trend LFTs, INR, albumin daily * Avoid all hepatotoxic medications amiodarone documented as causing hepatotoxicity * Monitor for signs of acute liver failure (AMS, INR >1.5, hypoglycemia) * Maintain hemodynamic stability to optimize hepatic perfusion. Continue protonix Nutrition * Continue current enteral feeding via GT at 55 mL/hr (1.2 Ron/Fiber formula) * Monitor tolerance, bowel function, and risk for aspiration * Check nutrition labs (albumin, prealbumin weekly) Gallstones * Cholelithiasis without acute inflammation no surgical intervention needed at present * Outpatient surgical evaluation if future biliary symptoms occur Coagulopathy * Mild INR elevation, likely multifactorial (acute liver injury + anticoagulation) * Continue monitoring; vitamin K if INR worsens or bleeding occurs Infection Control (GI-relevant) * Continue current antibiotic therapy: Ertapenem 1 g IV daily (for non-GI infection per primary/ID) * Monitor for secondary biliary sepsis; repeat RUQ ultrasound if bilirubin rises or leukocytosis worsens Case discussed in detail with the attending physician, including the clinical presentation, diagnostic workup, and comprehensive management plan. Plan discussed with: Other (RN) SHANKAR VALDEZ RESIDENT Oct 11, 2024 16:41
[2024-10-11 19:28] LABS: INR 1.37 (0.9-1.15); Prothrombin Time 14.1 sec (9.3-11.8)
[2024-10-11 19:33] LABS: Partial Thromboplastin Time 89.1 SEC (24.5-34.5)
--- NOTE | 2024-10-11 20:42 | CONS ---
Pharmacy Clinical Information: INCREASE HEPARIN DRIP RATE TO 1300 UNITS/HR PER APTT OF 89.1 NEXT APTT DRAW SCHEDULED FOR 229 ON 10/12 PER RX PROTOCOL CEE HOLLY CONFIRMED AND READ BACK Eileen Peacock PHARMACIST Oct 11, 2024 20:42
--- NOTE | 2024-10-11 21:11 | DVHPN2 ---
Progress Note - Dictate Date Seen: Oct 11, 2024 Medical Necessity Reason Pt with a Central, PICC or Fol: Yes vital signs Vital Sign Date Time Temp Pulse Resp B/P (MAP) Pulse Ox O2 Delivery O2 Flow Rate FiO2 10/11/24 20:11 82 18 112/68 (83) 100 30 10/11/24 19:00 98.6 209.5 10/11/24 18:00 Mechanical Ventilator+ Total Intake and Output 10/10/24 10/10/24 10/11/24 15:00 23:00 07:00 Intake Total 534.2835 ml 413.004 ml 291.004 ml Output Total 1550 ml 1000 ml Balance 534.2835 ml -1136.996 ml -708.996 ml medications Current Medications Medications Dose Ordered Sig/Liliam Route Start Time Stop Time Status Last Admin Dose Admin Midazolam HCl 50 ml @ 1 mls/hr Q24H IV 10/07/24 04:45 10/11/24 02:30 1 MLS/HR Fentanyl Citrate 250 ml @ 2.5 mls/hr Q24H IV 10/07/24 06:15 10/11/24 15:04 15 MLS/HR Ondansetron HCl 4 mg Q4HP PRN IV 10/07/24 10:00 Nitroglycerin 0.4 mg Q5MINP PRN SL 10/07/24 10:00 Morphine Sulfate 2 mg Q30M PRN IV 10/07/24 10:00 Pantoprazole Sodium 40 mg DAILY IV 10/07/24 10:00 10/11/24 09:41 40 MG Norepinephrine Bitartrate 250 ml @ 3.75 mls/hr Q24H IV 10/07/24 12:15 10/10/24 06:50 18.75 MLS/HR Furosemide 40 mg BIDD IV 10/07/24 18:00 10/11/24 17:26 40 MG Aspirin 81 mg DAILY PO 10/08/24 10:00 10/11/24 09:42 81 MG Mexiletine HCl 150 mg TID GT 10/08/24 22:00 10/11/24 13:58 150 MG Acetaminophen 500 mg Q6HP PRN PO 10/08/24 22:30 10/09/24 21:26 500 MG Enteral Nutritional Formula 1,000 ml 55ML/HR GT 10/09/24 18:45 Esmolol HCl 250 ml @ 0 mls/hr Q0M IV 10/10/24 07:45 Phenylephrine HCl 80 mg/Sodium Chloride 250 ml @ 7.5 mls/hr Q24H IV 10/10/24 09:30 10/11/24 17:16 16.875 MLS/HR Ertapenem 1 gm/ Sodium Chloride 50 ml @ 100 mls/hr DAILY IV 10/10/24 20:00 10/11/24 09:41 100 MLS/HR Heparin Sodium/ Dextrose 250 ml @ 13 mls/hr [id number] IV 10/11/24 20:45 laboratory and microbiology Laboratory Tests 10/11/24 06:35 10/11/24 03:23 Test 10/11/24 06:35 Range/Units Serum Glucose 90 74-106 mg/dL Assessment/Plan Subjective Patient remains in the ICU. Planning for CPAP trial. No pacemaker yet. Repeat head CT negative. Medications and Supplements - Phenylephrine - Changed from similemophane - Heparin - Fentanyl - Used briefly - Amiodarone - Discontinued this morning Objective Physical Examination General: Patient is following commands. Neurological: Patient understands and follows commands. Laboratory, Imaging, and Diagnostic Test Results - LFTs: Elevated (specific values not provided) Assessment & Plan Respiratory insufficiency Assessment: Patient is currently intubated and has undergone CPAP trials from 1400 to 1600. The trial was unsuccessful as the patient was not awake enough and became restless. Current management focuses on respiratory support with planned extubation prior to ICD procedure. A subsequent CPAP trial is planned for apns with the goal of extubation. Plan: - Attempt CPAP trial early in the morning - If successful, proceed with extubation prior to ICD procedure - Monitor patient's response to CPAP and extubation Cardiac arrhythmia Assessment: Patient has a planned ICD placement, suggesting a history of life- threatening arrhythmias or high risk for sudden cardiac . Amiodarone was discontinued this morning by Dr. Decker, possibly in preparation for the ICD procedure. Patient requires close cardiac monitoring during this perioperative period. Plan: - Proceed with ICD placement tomorrow - Discontinued amiodarone - Monitor cardiac rhythm closely Elevated liver function tests Assessment: Patient has elevated liver function tests. A liver ultrasound has been ordered to evaluate the cause of the elevation, but results are pending. Current feeding plan is on hold pending further evaluation of hepatic function. Plan: - Await liver ultrasound results - Hold enteral feeding until liver ultrasound results are available - Reassess feeding plan based on ultrasound findings Hemodynamic instability Assessment: Patient appears to have experienced hypotension, necessitating vasopressor support. The vasopressor was changed to phenylephrine for blood pressure management. Hemodynamic status requires ongoing monitoring and support. Plan: - Continue phenylephrine for blood pressure support - Monitor hemodynamic status closely - Titrate vasopressors as needed Anticoagulation management Assessment: Patient is currently on heparin therapy, likely for prophylaxis or treatment of thromboembolism. Coagulation status requires ongoing monitoring during current hospitalization. Plan: - Continue heparin therapy - Monitor coagulation parameters Pain management Assessment: Patient received fentanyl briefly for pain control or sedation. Pain and sedation requirements need ongoing assessment in the intubated patient. Plan: - Administer fentanyl as needed for pain or sedation - Monitor pain levels and sedation requirements Dietary Evaluation Review Comments: 1) TF Jevity 1.2Cal @ 55 ml/hr. x 24hr along with Pro-stat 1 pk daily. Start @ 20ml/hr, increase 10ml/hr Q4H until goal is reached. TF @ goal volume provides 1684 kcal (100% energy needs), 88 gm protein (100% protein needs), 1065 ml free water. 2) Water flush 100ml Q4H if allowed, adjust PRN 3) Advance to cardiac diet as medically feasible 4) Monitor NPO status, lab values, wt trend, I/O Expected Outcomes/Goals: To meet >75% estimated needs within 7 days Lab values to improve Fu 2-3 days Plan discussed with: Patient, Other CARLOS WHITAKER MD Oct 11, 2024 21:11
[2024-10-12] VITALS (108 sets, daily range): BP systolic 84–112; BP diastolic 40–66; PULSE 77–85; RESP 17–26; TEMP 97.5–99.3; O2SAT 97–100
[2024-10-12 04:06] LABS: Hemoglobin 8.3 g/dL (12.2-16.2)
[2024-10-12 04:08] LABS: Hematocrit 23.9 % (36.0-46.0); Mean Corpuscular Hemoglobin 31.9 pg (28.0-32.0); Mean Corpuscular Volume 92.1 fL (80.0-100.0); Nucleated Red Blood Cells % 0.3 %
[2024-10-12 04:36] LABS: INR 1.32 (0.9-1.15); Prothrombin Time 13.6 sec (9.3-11.8)
[2024-10-12 04:37] LABS: Partial Thromboplastin Time 85.3 SEC (24.5-34.5)
[2024-10-12 04:53] LABS: Anion Gap 9 (5-15); BUN/Creatinine Ratio 15.3 (10.0-20.0); Blood Urea Nitrogen 11 mg/dL (9-23); Carbon Dioxide 27 mmol/L (20-31); Chloride 99 mmol/L (98-107); Glucose 74 mg/dL (74-106); Magnesium 1.8 mg/dL (1.6-2.6)
[2024-10-12 04:54] LABS: Bilirubin, Total 0.5 mg/dL (0.2-1.0)
[2024-10-12] MEDS: HEPARIN DRIP/D5W 100UNITS/ML 250 ML IV SCH (05:00)
[2024-10-12 05:08] LABS: Alanine Aminotransferase 130 U/L (7-40); Albumin 2.4 g/dL (3.2-4.8); Alkaline Phosphatase 130 U/L (46-116); Calcium 7.5 mg/dL (8.7-10.4); Potassium 3.2 mmol/L (3.5-5.1); Sodium 135 mmol/L (136-145); Total Protein 4.7 g/dL (5.7-8.2)
--- NOTE | 2024-10-12 06:04 | DVH ---
CHEST RADIOGRAPH Indication: Intubated Technique: Single frontal view of the chest was obtained COMPARISON: XY CHEST XRAY 1 VIEW on DOS: 10/11/24, XY CHEST PORTABLE on DOS: 10/10/24, XY CHEST PORTABL E on DOS: 10/09/24, XY CHEST XRAY 1 VIEW on DOS: 10/08/24, XY CHEST XRAY 1 VIEW on DOS: 10/08/24 FINDINGS: Lines and Tubes: Lines and tubes unchanged. Lungs: Stable appearing small left pleural effusion. No evidence of focal consolidation. No pneumothorax. Cardiomediastinal contours: Cardiomegaly. Bones: Unremarkable IMPRESSION: 1. Cardiomegaly and small left pleural effusion. 2. Lines and tubes unchanged.
[2024-10-12] MEDS: MAGNESIUM SULFATE 1GM/100ML 100 ML IV SCH (06:27)
[2024-10-12] MEDS: POTASSIUM CHL 20MEQ/100ML 100 ML IV SCH (06:27)
[2024-10-12 07:11] LABS: Base Excess 2.4 mmol/L (-2.0-3.0)
[2024-10-12 08:07] LABS: Immunoglobulin A 210 mg/dL (87-352); Immunoglobulin G, Serum 1149 mg/dL (586-1602); Immunoglobulin M 186 mg/dL (26-217)
--- NOTE | 2024-10-12 08:14 | DVHPN2 ---
Progress Note - Dictate Date Seen: Oct 12, 2024 Medical Necessity Reason Pt with a Central, PICC or Fol: Yes vital signs Vital Sign Date Time Temp Pulse Resp B/P (MAP) Pulse Ox O2 Delivery O2 Flow Rate FiO2 10/12/24 07:32 83 18 96/54 (68) 100 30 10/12/24 02:30 98.8 209.8 10/12/24 02:00 Mechanical Ventilator+ Total Intake and Output 10/11/24 10/11/24 10/12/24 15:00 23:00 07:00 Intake Total 440.816 ml 303.938 ml 375 ml Output Total 1225 ml Balance 440.816 ml -921.062 ml 375 ml medications Current Medications Medications Dose Ordered Sig/Liliam Route Start Time Stop Time Status Last Admin Dose Admin Midazolam HCl 50 ml @ 1 mls/hr Q24H IV 10/07/24 04:45 10/11/24 21:13 1 MLS/HR Fentanyl Citrate 250 ml @ 2.5 mls/hr Q24H IV 10/07/24 06:15 10/12/24 06:27 15 MLS/HR Ondansetron HCl 4 mg Q4HP PRN IV 10/07/24 10:00 Nitroglycerin 0.4 mg Q5MINP PRN SL 10/07/24 10:00 Morphine Sulfate 2 mg Q30M PRN IV 10/07/24 10:00 Pantoprazole Sodium 40 mg DAILY IV 10/07/24 10:00 10/11/24 09:41 40 MG Norepinephrine Bitartrate 250 ml @ 3.75 mls/hr Q24H IV 10/07/24 12:15 10/10/24 06:50 18.75 MLS/HR Furosemide 40 mg BIDD IV 10/07/24 18:00 10/12/24 06:28 40 MG Aspirin 81 mg DAILY PO 10/08/24 10:00 10/11/24 09:42 81 MG Mexiletine HCl 150 mg TID GT 10/08/24 22:00 10/12/24 06:28 150 MG Acetaminophen 500 mg Q6HP PRN PO 10/08/24 22:30 10/09/24 21:26 500 MG Enteral Nutritional Formula 1,000 ml 55ML/HR GT 10/09/24 18:45 Esmolol HCl 250 ml @ 0 mls/hr Q0M IV 10/10/24 07:45 Phenylephrine HCl 80 mg/Sodium Chloride 250 ml @ 7.5 mls/hr Q24H IV 10/10/24 09:30 10/11/24 17:16 16.875 MLS/HR Ertapenem 1 gm/ Sodium Chloride 50 ml @ 100 mls/hr DAILY IV 10/10/24 20:00 10/11/24 09:41 100 MLS/HR Heparin Sodium/ Dextrose 250 ml @ 11 mls/hr [id number] IV 10/12/24 05:00 10/12/24 05:00 11 MLS/HR Potassium Chloride 100 ml @ 50 mls/hr Q2H IV 10/12/24 05:45 10/12/24 09:44 10/12/24 06:27 50 MLS/HR laboratory and microbiology Laboratory Tests 10/12/24 03:07 Test 10/12/24 03:07 Range/Units Serum Glucose 74 74-106 mg/dL Assessment/Plan Patient is a 54-year-old female who was brought to the hospital for witnessed syncope. She is intubated and is being managed in ICU. Information was obtained by reviewing the chart and communicating with patient's son (over the phone). Family recognized witnessed syncope and started CPR and called EMS. Reportedly, EMS found the patient in ventricular fibrillation and shocked the patient and brought the patient to the hospital. Patient was intubated in emergency room and transferred to ICU. Patient was on amiodarone drip. Later the patient had ventricular tachycardia (Systane). High sensitive troponin had been minimally/flatly elevated. Presentation was not in favor of acute coronary syndrome. Cardiology is involved for cardiac aspects of care. Intubated. Noncommunicative. No JVD. Mucosa pale. No carotid bruit. Scattered rhonchi in the lungs is heard. Cardiac: Regular, no thrill. Systolic murmur 2/6 in apex is heard. Abdomen is soft. No edema in extremities. Past medical history as per son: Congenital heart disease, status post bypass WBC: 14.5 - 11.9 - 18.8 - 20.0 - 21.2 - 14.3 - 10.3 Hemoglobin: 10.1 - 9.6 - 9.2 - 8.8 - 8.7 - 8.0 - 8.3 Creatinine: 0.95 - 0.93 - 0.87 - 0.83 - 0.83 - 0.76 - 0.68 - 0.72 Potassium: 3.4 - 4.0 - 4.6 - 3.5 - 3.3 - 4.1 - 3.7 - 3.2 - 3.7 - 4.0 - 3.2 Magnesium: 2.0 - 1.6 - 2.0 - 3.0 - 1.5 - 1.9 - 2.1 - 1.8 Troponin (high sensitive): 141 - 138 - 117 BNP: 457.16 AST/ALT: 32/11 - 19/13 - 538/168 - 293/152 - 131/130 UDS: non-revealing Chest x-ray revealed: Lines and Tubes: Endotracheal tube tip projects approximately 1.4 cm above the level of the tyler. Enteric catheter courses below the lateral of the diaphragm and terminates beyond the inferior margin of the image. Right internal jugular central venous catheter terminates within the distal superior vena cava. Lungs: Moderate diffuse increased prominence of the pulmonary vasculature without evidence of focal consolidation. Pleura: No effusion. No pneumothorax. Cardiomediastinal contours: Cardiomegaly. Bones: Unremarkable IMPRESSION: 1. Cardiomegaly and diffuse increased prominence of the pulmonary vasculature. 2. Lines and tubes as above. Repeat chest x-ray revealed: IMPRESSION: 1. Endotracheal tube tip 1.6 cm above the tyler; consider 2 cm retraction 2. Mild pulmonary vascular congestion. Moderate cardiomegaly. Repeat chest xry revealed: IMPRESSION: Endotracheal tube tip 1.6 cm above the tyler; consider 2 cm retraction Mild pulmonary vascular congestion. Moderate cardiomegaly. Repeat chest xry revealed: IMPRESSION: 1. Stable cardiomegaly, small left pleural effusion and mild diffuse increased prominence of the pulmonary vasculature. 2. Repositioned endotracheal tube as above. Remaining lines and tubes unchanged. Repeat chest xry revealed: IMPRESSION: 1. Cardiomegaly, stable diffuse increased prominence of the pulmonary vasculature and small bilateral pleural effusions. 2. Slight interval advancement of endotracheal tube as above. Remaining lines and tubes unchanged. Repeat chest xry revealed: IMPRESSION: 1. Slight interval decrease in diffuse increased prominence of the pulmonary vasculature. 2. Stable cardiomegaly and small left pleural effusion. 3. Lines and tubes unchanged. Repeat chest xry revealed: IMPRESSION: 1. Cardiomegaly and small left pleural effusion. 2. Lines and tubes unchanged. Liver Ultrasound revealed: Hepatic steatosis. Hepatomegaly. Cholelithiasis. CT of the head revealed: IMPRESSION: No acute intracranial abnormality. Repeat CT of head revealed: IMPRESSION: No acute intracranial abnormality. Echocardiogram reported: lvef 15-20% dilated LV severe global dysfunction mild RV dysfunction biatrial enlargement mild moderate MAC, moderate mitral regurg mild to moderate aortic regug (images of echo reviewed and questioned presence of mitral ring and also some component (moderate of Mitral stenosis) EKG revealed sinus rhythm Telemetry revealed occasions of atrial fibrillation. There was occasional sustained ventricular tachycardia. EMS tele monitor revealed ventricular fibrillation for which the patient was shocked. Has remained sinus rhythm LHC revealed: Patent RICHMOND to LAD; Patent SVG to obtuse marginal; LVEF of 20% with increased EDP; Proximal disease in LAD/LCX RICHIE was performed: Consistent with severely reduced LVEF. Consistent with previously implanted Mitral ring, Up to moderate Mitral stenosis/Mitral Regurgitation and also Moderate Aortic insufficiency. Patient is a 54-year-old female who presented with witnessed syncope. She was found to have ventricular fibrillation for which was shocked. Later had repeated episode of sustained ventricular tachycardia. Patient has been kept in ICU. Does have baseline history of coronary artery disease for which has had bypass surgery. Left heart catheterization was performed which revealed patent RICHMOND and patent SVG. ACS is not considered at this point. It is of note that the patient's echocardiogram reveals significantly use systolic function. Valvular heart disease is considered. Findings are in favor of previously implanted mitral ring. By reviewing the echo images, component of up to moderate mitral stenosis could not be ruled out. LHC was performed that ruled out any active specific ischemia as an etiology for presentation. Is off Amiodarone for abnormal LFT. Being followed by Nephrology / Pulmonary / Neurology / GI. Tele has remained sinus rhythm. Syncope V-fib s/p shock Sustained V-tach Paroxysmal A-fib VHD, s/p Mitral ring Systolic heart failure Abnormal LFT Cardiac suggestion for management: Manage in ICU Follow up electrolytes and kidney function test and correct abnormalities Full anticoagulation (a-fib with high CHADS-Vasc score). On Heparin drip for now Off Amio drip (worsened LFT) On Mexiletine If need for pressure support: use Phenyl Ephrine May consider Esmolol for PVC/Vtach EP Following ICD implantation as per EP Pulmonary Follow up Provide previous medical records from reaching out to previous hospitals in [facility]... Further evaluation and management depends on the above and clinical course. A total of 75 minutes was spent reviewing the patient record, examining the patient, making a diagnostic and therapeutic plan, discussing this plan with medical personnel, following up on diagnostic studies and following the patient for clinical stability excluding any and all procedures. At least 50% of this time was spent in direct, [id number] contact. Thank you for allowing me to participate in this patient's care. Further recommendations will depend on patient's clinical course. Please do not hesitate to contact me if you have any questions or concerns. This medical document was created using electronic medical record system with [email or web address] dictation system. Although this document has been carefully reviewed, there may still be some phonetic and typographical errors. These areas are purely typographical due to the imperfection of the software programs, and do not reflect any compromise in the patient's medical care. Dietary Evaluation Review Comments: 1) TF Jevity 1.2Cal @ 55 ml/hr. x 24hr along with Pro-stat 1 pk daily. Start @ 20ml/hr, increase 10ml/hr Q4H until goal is reached. TF @ goal volume provides 1684 kcal (100% energy needs), 88 gm protein (100% protein needs), 1065 ml free water. 2) Water flush 100ml Q4H if allowed, adjust PRN 3) Advance to cardiac diet as medically feasible 4) Monitor NPO status, lab values, wt trend, I/O Expected Outcomes/Goals: To meet >75% estimated needs within 7 days Lab values to improve Fu 2-3 days Plan discussed with: Other (nurse) CORDELL VERA MD Oct 12, 2024 08:14
[2024-10-12 09:07] LABS: Kappa Lite Chain Free Serum 49.1 mg/L (3.3-19.4)
[2024-10-12 12:15] LABS: Hepatitis B Surface Antigen Negative (Negative); Hepatitis C Antibody Negative (Negative)
--- NOTE | 2024-10-12 12:24 | DVH ---
LEFT Lower Extremity Arterial Duplex Date: 10/12/2024 11:38 AM Clinical History: weak pulses Comparison: None Technique: Duplex Doppler evaluation including color Doppler and spectral/pulsed waveform analysis of the lLT ower extremity arteries was performed. Finding: LEFT: Peak systolic velocities are as follows: DANCE TEACHER 119 cm/s Deep femoral 78 cm/s SFA proximal 108 cm/s SFA mid-portion 88 cm/s SFA distal 111 cm/s Popliteal 132 cm/s Posterior tibial 86 cm/s Dorsalis pedis 73 cm/s The waveforms are triphasic with diastolic flow. REFERENCE VALUES, [facility] ([facility]) vascular Imaging Lab Criteria: Peak systolic velocity ranges (in cm/sec) are as follows: <150 cm/s - <20 % stenosis 150-200 cm/s - 20-49% stenosis 200-300 cm/s - 50-75% stenosis >300 cm/s -> 75% stenosis IMPRESSION: There is no evidence for peripheral vascular insufficiency in the left lower extremity. No significant focal stenosis is identified.
[2024-10-12 12:25] LABS: INR 1.24 (0.9-1.15); Prothrombin Time 12.9 sec (9.3-11.8)
[2024-10-12 12:28] LABS: Partial Thromboplastin Time 72.3 SEC (24.5-34.5)
--- NOTE | 2024-10-12 13:55 | DVH ---
Left Upper Extremity Arterial Duplex Clinical History: weak pulses Comparison: None Technique: Duplex Doppler evaluation including color Doppler and spectral/pulsed waveform analysis of the upper extremity arteries was performed. Findings: Left Peak systolic velocities are as follows: Subclavian 49 cm/s Axillary 59 cm/s Brachial 53 cm/s Radial 17 cm/s Ulnar 48 cm/s The waveforms are multiphasic. IMPRESSION: No hemodynamically significant stenosis based on peak systolic velocity criteria. REFERENCE VALUES, [facility]) vascular Imaging Lab Criteria: Peak systolic velocity rang es (in cm/sec) are as follows: <150 cm/s - <20 % stenosis 150-200 cm/s - 20-49% stenosis 200-300 cm/s - 50-75% stenosis >300 cm/s -> 75% stenosis
--- NOTE | 2024-10-12 15:20 | DVHPN2 ---
Progress Note - Dictate Date Seen: Oct 12, 2024 Medical Necessity Reason Pt with a Central, PICC or Fol: Yes Subjective Patient seen and examined at the bedside within ICU. Vital signs remain stable with the support of phenylephrine (Stone-Synephrine). Current infusions also include potassium, fentanyl, and heparin. The patient is in normal sinus rhythm with a heart rate in the 80s. Implantable cardioverter-defibrillator placement is tentatively scheduled for Tuesday, pending Infectious Diseases clearance. Chart reviewed. Patient's medications, allergies, past medical, surgical, social and family histories were obtained and reviewed as appropriate. vital signs Vital Sign Date Time Temp Pulse Resp B/P (MAP) Pulse Ox O2 Delivery O2 Flow Rate FiO2 10/12/24 14:45 97.7 82 18 100/52 (68) 100 207.9 10/12/24 14:00 Mechanical Ventilator+ 30 30 Total Intake and Output 10/11/24 10/11/24 10/12/24 14:59 22:59 06:59 Intake Total 430.504 ml 318.813 ml 513 ml Output Total 1225 ml 1175 ml Balance 430.504 ml -906.187 ml -662 ml medications Current Medications Medications Dose Ordered Sig/Liliam Route Start Time Stop Time Status Last Admin Dose Admin Midazolam HCl 50 ml @ 1 mls/hr Q24H IV 10/07/24 04:45 10/11/24 21:13 1 MLS/HR Fentanyl Citrate 250 ml @ 2.5 mls/hr Q24H IV 10/07/24 06:15 10/12/24 06:27 15 MLS/HR Ondansetron HCl 4 mg Q4HP PRN IV 10/07/24 10:00 Nitroglycerin 0.4 mg Q5MINP PRN SL 10/07/24 10:00 Morphine Sulfate 2 mg Q30M PRN IV 10/07/24 10:00 Pantoprazole Sodium 40 mg DAILY IV 10/07/24 10:00 10/12/24 10:14 40 MG Norepinephrine Bitartrate 250 ml @ 3.75 mls/hr Q24H IV 10/07/24 12:15 10/10/24 06:50 18.75 MLS/HR Aspirin 81 mg DAILY PO 10/08/24 10:00 10/12/24 10:14 81 MG Mexiletine HCl 150 mg TID GT 10/08/24 22:00 10/12/24 14:14 150 MG Acetaminophen 500 mg Q6HP PRN PO 10/08/24 22:30 10/09/24 21:26 500 MG Enteral Nutritional Formula 1,000 ml 55ML/HR GT 10/09/24 18:45 Esmolol HCl 250 ml @ 0 mls/hr Q0M IV 10/10/24 07:45 Phenylephrine HCl 80 mg/Sodium Chloride 250 ml @ 7.5 mls/hr Q24H IV 10/10/24 09:30 10/11/24 17:16 16.875 MLS/HR Ertapenem 1 gm/ Sodium Chloride 50 ml @ 100 mls/hr DAILY IV 10/10/24 20:00 10/12/24 10:06 100 MLS/HR Heparin Sodium/ Dextrose 250 ml @ 11 mls/hr [id number] IV 10/12/24 05:00 10/12/24 10:13 11 MLS/HR Furosemide 20 mg BIDD IV 10/12/24 18:00 objective Heart: S1 and S2 present. The patient is in sinus rhythm. Lungs: Clear to auscultation Abdomen: Benign. Extremities: Distal pulses palpable, 2+. No evidence for peripheral edema laboratory and microbiology Laboratory Tests 10/12/24 03:07 Test 10/12/24 03:07 Range/Units Serum Glucose 74 74-106 mg/dL Assessment/Plan This is a 54-year old female who initially presented 10/07/2024 due to witnessed syncope. As per records and having spoke with family members (son/father), patient had collapsed in the kitchen as witnessed by nearby family members whom had initiated CPR. EMS had been called for further medical attention and upon their arrival reports indicate the patient had been found in ventricular fibrillation for which she was subsequently shocked by EMS and upon rhythm strip analysis of the event, rhythm itself does reveal evidence for what appears to be ventricular fibrillation requiring shock x 1 which upon ED arrival 12-lead electrocardiogram had revealed sinus rhythm at 84bpm, QRS of 96ms with a QTC interval of 495 ms. Upon ED arrival patient was intubated and initiated on Amiodarone infusion for rhythm management. Patient was later admitted to the ICU for close observation/management and had been noted to experience episodes of ventricular tachycardia that had degenerated into ventricular fibrillation resulting in cardiac arrest requiring initiation of CPR/ACLS protocol which the patient was subsequently shocked x 1 resulting in ROSC. Patient did undergo subsequent cardiac catheterization 10/08/2024 by Interventional Cardiology services revealing patent RICHMOND to LAD, patent SVG to obtuse marginal, proximal disease involving LAD and LCX. Echocardiogram 10/07/2024 had revealed a severely reduced LVEF function of 15-20%, dilated LV with severe global dysfunction, biatrial enlargement, moderate mitral insufficiency with mild to moderate aortic insufficiency. TTE itself had questioned potential presence of mitral ring and potential underlying component of mitral stenosis which subsequent RICHIE 10/08/2024 had revealed evidence of mitral ring with up to moderate mitral stenosis/mitral insufficiency in addition to moderate aortic insufficiency. Throughout course of present admission, patient has been furthermore noted to experience episodes of paroxysmal atrial fibrillation for which she has been maintained on anticoagulation for CVA prophylaxis. As the patient presented and was found to experience episodes of ventricular fibrillation requiring a total of 2 shocks, Electrophysiology services were later involved by Interventional Cardiology request to evaluate the patient for potential AICD implantation. Reported past medical history includes congenital heart disease, coronary artery disease status post previous bypass surgery Echocardiogram: (10/07/2024) revealed lvef 15-20% dilated LV severe global dysfunction mild RV dysfunction biatrial enlargement mild moderate MAC, moderate mitral regurg mild to moderate aortic regug (images of echo reviewed and questioned presence of mitral ring and also some component (moderate of Mitral stenosis) Cardiac Catheterization: (10/08/2024) revealed Patent RICHMOND to LAD; Patent SVG to obtuse marginal; LVEF of 20% with increased EDP; Proximal disease in LAD/LCX Transesophageal Echocardiogram (10/08/2024) revealed was performed: Consistent with severely reduced LVEF. Consistent with previously implanted Mitral ring, Up to moderate Mitral stenosis/Mitral Regurgitation and also Moderate Aortic insufficiency. Syncope, witnessed Cardiac arrest, status post ROSC Ventricular fibrillation, requiring shock x 2 Ventricular tachycardia with degeneration to ventricular fibrillation Systolic heart failure, severely reduced LV function of 15-20% Paroxysmal atrial fibrillation, currently sinus rhythm Coronary artery disease, s/p previous 2-V CABG Valvular heart disease, s/p previous mitral ring Beta-hemolytic group B streptococcus QRS < 120 milliseconds Secondary prevention ELECTROPHYSIOLOGY SUGGESTIONS FOR MANAGEMENT: Recognizing the above, patient herself benefits from undergoing AICD implantation for secondary prevention against sudden cardiac . As patient remains intubated on mechanical ventilation/sedation, benefits, risks, alternatives were discussed at length with the patient son who at this point would like to consider the matter further and discuss it with the patient father prior to proceeding with a decision. Therefore, will proceed with medical management during the interim and await tentative decision by family. Of note, patient was found to have leukocytosis which sputum culture had revealed evidence for beta-hemolytic group B streptococcus subsequently initiated on IV antibiotic therapy as managed by primary team. Blood cultures 10/07/2024 at this point reveal no growth to date. Recognizing evidence for acute infection, will request for infectious disease consultation/clearance prior to proceeding with potential plan of undergoing AICD implantation. To proceed with IV antibiotic therapy during the interim. Recognizing co-morbidities, long-term continuation of anticoagulation is advised for CVA prophylaxis of PAF. Proceed with Heparin infusion (for now). Proceed with IV Amiodarone infusion (for now). Proceed with Mexiletine (for now). To sustain potassium levels greater than 4.0. To sustain magnesium levels greater than 2.0. Proceed with close rate and rhythm surveillance during the interim. Remainder of cardiac management as per Interventional Cardiology services. Will proceed to follow from an EP perspective. GDMT for systolic heart failure as current conditions permit Proceed with close rate and rhythm surveillance Proceed with close hemodynamic surveillance Proceed with optimized blood pressure control Transfuse to sustain HGB level above 7.0 Sustain Magnesium level greater than 2.0 Sustain Potassium level greater than 4.0 Follow up renal function and electrolytes Management of ongoing concurrent medical conditions as per primary team Management of beta-hemolytic group B strep as per primary team/ID Management comorbidities as per primary team Management in the ICU Follow up independent marketing consultant recommendations Will proceed to follow from an EP perspective Further recommendations per clinical progression All available diagnostic labs, EKG's, and images were personally reviewed Patient's status, findings, and plan of care was reviewed and discussed with supervising physician Dr. Armstrong, who is in agreement with current plan of care. Plan of care discussed with and agreed upon by family / primary RN Prognosis: Guarded Thank you for allowing me to participate in the care of this patient. Further recommendations based on patients clinical course and progression, primary attending, and other consultants. Will continue to follow with primary attending. If you have any questions or concerns, please do not hesitate to contact me. A total of 75 minutes was spent reviewing the patient record, examining the patient, making a diagnostic and therapeutic plan, discussing this plan with medical personnel, following up on diagnostic studies and following the patient for clinical stability excluding any and all procedures. At least 50% of this time was spent in direct, [id number] contact. Dietary Evaluation Review Comments: 1) TF Jevity 1.2Cal @ 55 ml/hr. x 24hr along with Pro-stat 1 pk daily. Start @ 20ml/hr, increase 10ml/hr Q4H until goal is reached. TF @ goal volume provides 1684 kcal (100% energy needs), 88 gm protein (100% protein needs), 1065 ml free water. 2) Water flush 100ml Q4H if allowed, adjust PRN 3) Advance to cardiac diet as medically feasible 4) Monitor NPO status, lab values, wt trend, I/O Expected Outcomes/Goals: To meet >75% estimated needs within 7 days Lab values to improve Fu 2-3 days Plan discussed with: Other (Primary RN ) PENNY AVILA VETERINARIAN ASSISTANT Oct 12, 2024 15:20
[2024-10-12] MEDS: FUROSEMIDE 20 MG/2 ML VIAL IV SCH (17:43)
--- NOTE | 2024-10-12 18:20 | DVHPN2 ---
Progress Note Date Seen: Oct 12, 2024 Medical Necessity Reason Pt with a Central, PICC or Fol: Yes Subjective Patient reports: Other (No new events) Review of Systems: Deferred Objective vital signs Vital Sign Date Time Temp Pulse Resp B/P (MAP) Pulse Ox O2 Delivery O2 Flow Rate FiO2 10/12/24 17:43 96/61 10/12/24 17:15 98.1 81 18 100 208.6 10/12/24 16:00 30 10/12/24 16:00 Mechanical Ventilator+ Total Intake and Output 10/11/24 10/11/24 10/12/24 15:00 23:00 07:00 Intake Total 440.816 ml 303.938 ml 523.875 ml Output Total 1225 ml 1175 ml Balance 440.816 ml -921.062 ml -651.125 ml medications Current Medications Medications Dose Ordered Sig/Liliam Route Start Time Stop Time Status Last Admin Dose Admin Midazolam HCl 50 ml @ 1 mls/hr Q24H IV 10/07/24 04:45 10/11/24 21:13 1 MLS/HR Fentanyl Citrate 250 ml @ 2.5 mls/hr Q24H IV 10/07/24 06:15 10/12/24 06:27 15 MLS/HR Ondansetron HCl 4 mg Q4HP PRN IV 10/07/24 10:00 Nitroglycerin 0.4 mg Q5MINP PRN SL 10/07/24 10:00 Morphine Sulfate 2 mg Q30M PRN IV 10/07/24 10:00 Pantoprazole Sodium 40 mg DAILY IV 10/07/24 10:00 10/12/24 10:14 40 MG Norepinephrine Bitartrate 250 ml @ 3.75 mls/hr Q24H IV 10/07/24 12:15 10/10/24 06:50 18.75 MLS/HR Aspirin 81 mg DAILY PO 10/08/24 10:00 10/12/24 10:14 81 MG Mexiletine HCl 150 mg TID GT 10/08/24 22:00 10/12/24 14:14 150 MG Acetaminophen 500 mg Q6HP PRN PO 10/08/24 22:30 10/09/24 21:26 500 MG Enteral Nutritional Formula 1,000 ml 55ML/HR GT 10/09/24 18:45 Esmolol HCl 250 ml @ 0 mls/hr Q0M IV 10/10/24 07:45 Phenylephrine HCl 80 mg/Sodium Chloride 250 ml @ 7.5 mls/hr Q24H IV 10/10/24 09:30 10/11/24 17:16 16.875 MLS/HR Ertapenem 1 gm/ Sodium Chloride 50 ml @ 100 mls/hr DAILY IV 10/10/24 20:00 10/12/24 10:06 100 MLS/HR Heparin Sodium/ Dextrose 250 ml @ 11 mls/hr [id number] IV 10/12/24 05:00 10/12/24 10:13 11 MLS/HR Furosemide 20 mg BIDD IV 10/12/24 18:00 10/12/24 17:43 20 MG laboratory and microbiology Laboratory Tests 10/12/24 03:07 Test 10/12/24 03:07 Range/Units Serum Glucose 74 74-106 mg/dL Microbiology Date/Time Source Procedure Growth Status 10/09/24 08:49 Blood Blood Culture - Preliminary NO GROWTH AFTER 72 HOURS OF INCUBATION. Resulted 10/07/24 16:50 Nose MRSA Screen - Final Complete 10/07/24 04:26 Sputum Gram Stain - Final Complete 10/07/24 04:26 Respiratory Culture - Final Enterobacter cloacae Complete Problem List/Assessment/Plan Problem List/Assessment/Plan hypokalemia hyponatremia proteinuria Cardiac arrest status post V-tach chfref ef 15-20 VDRF recs Renal function stable I will sign off this case please reconsult if needed Plan discussed with: Other My Orders My Orders Orders - OLIVIER GOMEZ MD Procedure Category Date Status Time Furosemide Injection PHA 10/12/24 In Process (Lasix Injection) 18:00 Dietary Evaluation Review Comments: 1) TF Jevity 1.2Cal @ 55 ml/hr. x 24hr along with Pro-stat 1 pk daily. Start @ 20ml/hr, increase 10ml/hr Q4H until goal is reached. TF @ goal volume provides 1684 kcal (100% energy needs), 88 gm protein (100% protein needs), 1065 ml free water. 2) Water flush 100ml Q4H if allowed, adjust PRN 3) Advance to cardiac diet as medically feasible 4) Monitor NPO status, lab values, wt trend, I/O Expected Outcomes/Goals: To meet >75% estimated needs within 7 days Lab values to improve Fu 2-3 days OLIVIER GOMEZ MD Oct 12, 2024 18:19
[2024-10-12 18:46] LABS: INR 1.23 (0.9-1.15); Partial Thromboplastin Time 55.7 SEC (24.5-34.5); Prothrombin Time 12.8 sec (9.3-11.8)
--- NOTE | 2024-10-12 18:52 | DVHPN2 ---
Progress Note Date Seen: Oct 12, 2024 Resident Creating Document: SHANKAR VALDEZ RESIDENT Has the PT tested + for MRSA If YES, has PT been informed?: No Medical Necessity Reason Pt with a Central, PICC or Fol: Yes Subjective Review of Systems Today's progress- Patient remains intubated in the ICU, on ventilator support, with planned pressure CPAP trials tomorrow. She is currently receiving CPAP tube feeding via NG tube at 20 mL/hour Jevity. No bowel movement reported today. She is being followed by GI for evaluation of elevated liver enzymes. LFTs continued to down trend and improving. Hemoglobin stabilized at 8.3 and improved from yesterday 8.0. WBC count has improved to within normal range. Coagulation profile prolonged likely secondary to heparin therapy PT is 12.9, INR 1.24 APTT 72.3. Hepatitis panel negative. Immunology panel serum IgG within normal range, IgM 186, IgA 210, free kappa light chain elevated at 49.1 but kappa lambda ratio is normal at 1.54. Serum kappa immunofixation is pending. Extremity arterial duplex study -no hemodynamically significant stenosis, no peripheral vascular insufficiency. She remains hemodynamically stable with ICD placement scheduled for Tuesday. No abdominal pain GI bleeding or jaundice noted. Objective vital signs Vital Sign Date Time Temp Pulse Resp B/P (MAP) Pulse Ox O2 Delivery O2 Flow Rate FiO2 10/12/24 18:30 98.4 84 18 98/57 (71) 100 209.1 10/12/24 18:00 Mechanical Ventilator+ 30 30 Total Intake and Output 10/11/24 10/11/24 10/12/24 15:00 23:00 07:00 Intake Total 440.816 ml 303.938 ml 523.875 ml Output Total 1225 ml 1175 ml Balance 440.816 ml -921.062 ml -651.125 ml medications Current Medications Medications Dose Ordered Sig/Liliam Route Start Time Stop Time Status Last Admin Dose Admin Midazolam HCl 50 ml @ 1 mls/hr Q24H IV 10/07/24 04:45 10/12/24 18:20 5 MLS/HR Fentanyl Citrate 250 ml @ 2.5 mls/hr Q24H IV 10/07/24 06:15 10/12/24 06:27 15 MLS/HR Ondansetron HCl 4 mg Q4HP PRN IV 10/07/24 10:00 Nitroglycerin 0.4 mg Q5MINP PRN SL 10/07/24 10:00 Morphine Sulfate 2 mg Q30M PRN IV 10/07/24 10:00 Pantoprazole Sodium 40 mg DAILY IV 10/07/24 10:00 10/12/24 10:14 40 MG Norepinephrine Bitartrate 250 ml @ 3.75 mls/hr Q24H IV 10/07/24 12:15 10/10/24 06:50 18.75 MLS/HR Aspirin 81 mg DAILY PO 10/08/24 10:00 10/12/24 10:14 81 MG Mexiletine HCl 150 mg TID GT 10/08/24 22:00 10/12/24 14:14 150 MG Acetaminophen 500 mg Q6HP PRN PO 10/08/24 22:30 10/09/24 21:26 500 MG Enteral Nutritional Formula 1,000 ml 55ML/HR GT 10/09/24 18:45 Esmolol HCl 250 ml @ 0 mls/hr Q0M IV 10/10/24 07:45 Phenylephrine HCl 80 mg/Sodium Chloride 250 ml @ 7.5 mls/hr Q24H IV 10/10/24 09:30 10/11/24 17:16 16.875 MLS/HR Ertapenem 1 gm/ Sodium Chloride 50 ml @ 100 mls/hr DAILY IV 10/10/24 20:00 10/12/24 10:06 100 MLS/HR Heparin Sodium/ Dextrose 250 ml @ 11 mls/hr [id number] IV 10/12/24 05:00 10/12/24 10:13 11 MLS/HR Furosemide 20 mg BIDD IV 10/12/24 18:00 10/12/24 17:43 20 MG Examination General: Intubated, sedated, on mechanical ventilation * Abdomen: Soft, nondistended, non-tender, no palpable hepatosplenomegaly * Skin: No jaundice, no spider angiomata, no palmar erythema * Neuro: Limited by sedation; no overt asterixis laboratory and microbiology Laboratory Tests 10/12/24 03:07 Test 10/12/24 03:07 Range/Units Serum Glucose 74 74-106 mg/dL Microbiology Date/Time Source Procedure Growth Status 10/09/24 08:49 Blood Blood Culture - Preliminary NO GROWTH AFTER 72 HOURS OF INCUBATION. 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 Continue protonix Nutrition * Continue current enteral feeding via GT at 55 mL/hr (1.2 Ron/Fiber formula) * Monitor tolerance, bowel function, and risk for aspiration * Check nutrition labs (albumin, prealbumin weekly) Gallstones * Cholelithiasis without acute inflammation no surgical intervention needed at present * Outpatient surgical evaluation if future biliary symptoms occur Coagulopathy * Mild INR elevation, likely multifactorial (acute liver injury + anticoagulation) * Continue monitoring; vitamin K if INR worsens or bleeding occurs Infection Control (GI-relevant) * Continue current antibiotic therapy: Ertapenem 1 g IV daily (for non-GI infection per primary/ID) * Monitor for secondary biliary sepsis; repeat RUQ ultrasound if bilirubin rises or leukocytosis worsens Case discussed in detail with the attending physician, including the clinical presentation, diagnostic workup, and comprehensive management plan. Plan discussed with: Other (RN) Dietary Evaluation Review Comments: 1) TF Jevity 1.2Cal @ 55 ml/hr. x 24hr along with Pro-stat 1 pk daily. Start @ 20ml/hr, increase 10ml/hr Q4H until goal is reached. TF @ goal volume provides 1684 kcal (100% energy needs), 88 gm protein (100% protein needs), 1065 ml free water. 2) Water flush 100ml Q4H if allowed, adjust PRN 3) Advance to cardiac diet as medically feasible 4) Monitor NPO status, lab values, wt trend, I/O Expected Outcomes/Goals: To meet >75% estimated needs within 7 days Lab values to improve Fu 2-3 days SHANKAR VALDEZ RESIDENT Oct 12, 2024 18:52
--- NOTE | 2024-10-12 19:01 | DVHPN2 ---
Progress Note Date Seen: Oct 12, 2024 Has the PT tested + for MRSA If YES, has PT been informed?: No Medical Necessity Reason Pt with a Central, PICC or Fol: Yes Subjective Review of Systems: Not Done (patient is intubated ans sedated) Objective vital signs Vital Sign Date Time Temp Pulse Resp B/P (MAP) Pulse Ox O2 Delivery O2 Flow Rate FiO2 10/12/24 18:51 100 Mechanical Ventilator 10/12/24 18:51 30 30 10/12/24 18:30 98.4 84 18 98/57 (71) 209.1 Total Intake and Output 10/11/24 10/11/24 10/12/24 15:00 23:00 07:00 Intake Total 440.816 ml 303.938 ml 523.875 ml Output Total 1225 ml 1175 ml Balance 440.816 ml -921.062 ml -651.125 ml medications Current Medications Medications Dose Ordered Sig/Liliam Route Start Time Stop Time Status Last Admin Dose Admin Midazolam HCl 50 ml @ 1 mls/hr Q24H IV 10/07/24 04:45 10/12/24 18:20 5 MLS/HR Fentanyl Citrate 250 ml @ 2.5 mls/hr Q24H IV 10/07/24 06:15 10/12/24 06:27 15 MLS/HR Ondansetron HCl 4 mg Q4HP PRN IV 10/07/24 10:00 Nitroglycerin 0.4 mg Q5MINP PRN SL 10/07/24 10:00 Morphine Sulfate 2 mg Q30M PRN IV 10/07/24 10:00 Pantoprazole Sodium 40 mg DAILY IV 10/07/24 10:00 10/12/24 10:14 40 MG Norepinephrine Bitartrate 250 ml @ 3.75 mls/hr Q24H IV 10/07/24 12:15 10/10/24 06:50 18.75 MLS/HR Aspirin 81 mg DAILY PO 10/08/24 10:00 10/12/24 10:14 81 MG Mexiletine HCl 150 mg TID GT 10/08/24 22:00 10/12/24 14:14 150 MG Acetaminophen 500 mg Q6HP PRN PO 10/08/24 22:30 10/09/24 21:26 500 MG Enteral Nutritional Formula 1,000 ml 55ML/HR GT 10/09/24 18:45 Esmolol HCl 250 ml @ 0 mls/hr Q0M IV 10/10/24 07:45 Phenylephrine HCl 80 mg/Sodium Chloride 250 ml @ 7.5 mls/hr Q24H IV 10/10/24 09:30 10/11/24 17:16 16.875 MLS/HR Ertapenem 1 gm/ Sodium Chloride 50 ml @ 100 mls/hr DAILY IV 10/10/24 20:00 10/12/24 10:06 100 MLS/HR Heparin Sodium/ Dextrose 250 ml @ 11 mls/hr [id number] IV 10/12/24 05:00 10/12/24 10:13 11 MLS/HR Furosemide 20 mg BIDD IV 10/12/24 18:00 10/12/24 17:43 20 MG Examination: GENERAL:Normal, LUNGS:Abnormal (diminished on vent), CVS:Normal, ABDOMEN:Normal, SKIN:Normal laboratory and microbiology Laboratory Tests 10/12/24 03:07 Test 10/12/24 03:07 Range/Units Serum Glucose 74 74-106 mg/dL Microbiology Date/Time Source Procedure Growth Status 10/09/24 08:49 Blood Blood Culture - Preliminary NO GROWTH AFTER 72 HOURS OF INCUBATION. Resulted 10/07/24 16:50 Nose MRSA Screen - Final Complete 10/07/24 04:26 Sputum Gram Stain - Final Complete 10/07/24 04:26 Respiratory Culture - Final Enterobacter cloacae Complete Labs and/or images reviewed: Labs reviewed by me, Image(s) reviewed by me Problem List/Assessment/Plan Problem List/Assessment/Plan The patient initially presented on 10/07/2024 due to syncope, resulting in cardiac arrest with ventricular fibrillation. She was found collapsed in the kitchen by family members who initiated CPR before EMS arrival. Upon EMS arrival, the patient was found to be in ventricular fibrillation and was shocked. She was subsequently intubated, sedated, and placed on an amio drip upon arrival at the ED. The patient was admitted to the ICU for close observation and required two shocks for ventricular fibrillation. She is now planned for AICD placement. The patient has received clearance from infectious disease for the AICD placement, which was requested by cardiology due to initial leukocytosis that is now improving. The patient is currently being treated for paroxysmal atrial fibrillation and has been diagnosed with acute and chronic systolic heart failure with severely reduced left ventricular function. She is experiencing acute hypoxic respiratory failure and remains intubated and sedated. Additional complications include transaminitis with elevated liver function, likely secondary to amiodarone use, which has been discontinued by Cardiology. A sputum culture came back positive for Enterobacter, for which the patient is being treated. A neurologist has evaluated the patient. Cardiac Arrest with Ventricular Fibrillation Assessment: Patient experienced cardiac arrest with ventricular fibrillation on 10/07/24, witnessed by family members who initiated CPR. EMS found the patient in ventricular fibrillation and administered shock therapy. Rhythm strip analysis confirmed ventricular fibrillation. Patient required intubation and sedation upon ED arrival. Currently admitted to ICU for close observation. Cardiology has been consulted and plans for AICD placement, likely on Tuesday. Infectious disease clearance has been obtained for the AICD procedure, addressing initial concerns of leukocytosis which is now improving. Status post-cardiac arrest. Plan: - Continue ICU monitoring - Proceed with AICD placement as planned (likely Tuesday), cleared by infectious disease. - Maintain intubation and sedation until AICD placement - Continue Heparin drip for paroxysmal atrial fibrillation - Continue Mexitil Coronary Artery Disease Assessment: Patient with history of 2-vessel CABG (Coronary Artery Bypass Grafting). Surgical intervention previously performed to address significant coronary artery stenosis. Plan: - Continue medical management - Follow up with cardiology for ongoing coronary artery disease management Acute and Chronic Systolic Heart Failure Assessment: Patient has acute and chronic systolic heart failure with severely reduced left ventricular function. Ejection fraction is estimated at 15-20%. RICHIE findings are consistent with severely reduced left ventricular ejection fraction, previously implanted mitral ring, up to moderate mitral stenosis and regurgitation, and moderate aortic insufficiency. Plan: - Continue cardiology consultation - Administer IV diuretics (IV Lasix) - Monitor renal function Acute Hypoxic Respiratory Failure Assessment: Patient is currently intubated due to acute hypoxic respiratory failure. Dr. Downey from pulmonology is managing this aspect of care. Plan: - Maintain current intubation as per pulmonology recommendation - Proceed with CPAP trials when deemed appropriate by pulmonology Transaminitis Assessment: Patient has elevated liver function tests, likely secondary to amiodarone use. Cardiology has discontinued amiodarone in response. Plan: - Monitor liver function tests - Amiodarone discontinued as per cardiology Enterobacter PNA Assessment: Sputum culture positive for Enterobacter. Plan: - Continue treatment with Eratapenem -Infectious disease consult Hemodynamic Support Assessment: Patient requires vasopressor support for hemodynamic stability. Plan: - Continue vasopressin - Continue neosynephrine Paroxysmal a fib -DC amiodarone -continue with heparin gtt Plan discussed with: Other (RN) Dietary Evaluation Review Comments: 1) TF Jevity 1.2Cal @ 55 ml/hr. x 24hr along with Pro-stat 1 pk daily. Start @ 20ml/hr, increase 10ml/hr Q4H until goal is reached. TF @ goal volume provides 1684 kcal (100% energy needs), 88 gm protein (100% protein needs), 1065 ml free water. 2) Water flush 100ml Q4H if allowed, adjust PRN 3) Advance to cardiac diet as medically feasible 4) Monitor NPO status, lab values, wt trend, I/O Expected Outcomes/Goals: To meet >75% estimated needs within 7 days Lab values to improve Fu 2-3 days Date of Service: Oct 12, 2024 Billing Provider: CARLOS WHITAKER MD Common Visit Codes: 26320-[id number] INP/OBS CARE (MOD) BRAEDEN UNDERWOOD FLAKER TENDER Oct 12, 2024 19:01
[2024-10-12] MEDS: Jevity 1.2 Cal/Fiber 1 Liter GT SCH (21:34)
--- NOTE | 2024-10-12 21:41 | DVHPN2 ---
Progress Note - Dictate Date Seen: Oct 12, 2024 Has the PT tested + for MRSA If YES, has PT been informed?: No Medical Necessity Reason Pt with a Central, PICC or Fol: Yes Subjective Ms. Smith is a 54 years old female who was brought to the [facility] on 10/07/2024 with a chief complaint of cardiopulmonary arrest/status post CPR. I have seen and examined the patient, I have discussed with her nurse, she is intubated, sedated, responsive to light painful stimuli. She was respond to verbal commands during the daytime Fentanyl 150 mcg/hour, Versed 5 mg/hour, Neosyn 90 mcg/min Blood culture, 10/09/2024: UDS, 10/07/2024: Negative Urinalysis, 10/07/2024: Leukocyte esterase: Negative WBC/HB/PLT/MCV, 10/09/2024: 20/8.8/219/94.6, 10/10/2024: 21.2/8.7/232/92.2 PT/INR/PTT, 10/08/2024: 12.4/1.19/72.7, 10/09/2024: 13.1/1.26/68.9, 10/10/2024: 14.4/2/1.38/35.3 CMP, 10/08/2024: Unremarkable Troponin one high sensitivity, 10/07/2024: 141, 138, 117 TBI/AST/ALT/AP, 10/10/2024: 0.5/538/168/144, 10/11/2024: 0.6/293/199/152 TG/HDL/LDL/HDL, 10/07/24: 71/66/31/21 Echocardiogram, 10/07/2024: lvef 15-20% dilated LV severe global dysfunction mild RV dysfunction biatrial enlargement mild moderate MAC, moderate mitral regurg mild to moderate aortic regug RICHIE, 10/08/2024: 1. Left ventricle: Dilated LV was seen. LVEF was 25%. There was diffuse hypokinesis of left ventricle. 2. Right ventricle: RV was mildly dilated. 3. Left atrium: LA enlarged 4. Right atrium: RA was enlarged. 5. Mitral valve: Mitral was thickened with reduced opening. Moderate Mitral regurgitation was seen. Planinomentry of valve (TTE images also obtained) revealed MVA of 2.1 cm. Mean pressure gradient (obtained from limited TTE images) was 5. Images are consistent with previously implanted Ring in Mitral position. Consistent with up to Moderate Mitral stenosis. . There was no vegetation 6. Left atrial appendage: No evidence of thrombus. 7. Aortic valve: Trileaflet valve. No stenosis. Up to moderate Aortic Insufficiency was seen. There was no vegetation 8. Pulmonic valve: Trivial pulmonic insufficiency. No significant stenosis. 9. Tricuspid valve: Mild tricuspid regurgitation. There was no vegetation 10. Interatrial septum: Negative color flow for right to left shunt was observed. Bubble study was performed: negative for shunt 11. Pericardium: No significant effusion. 12. Thoracic aorta: No significant plaquing. Chest x-ray, 10/27/2024: 1. Cardiomegaly, stable diffuse increased prominence of the pulmonary vasculature and small bilateral pleural effusions. 2. Slight interval advancement of endotracheal tube as above. Remaining lines and tubes unchanged. CT head, 10/07/2024: No acute intracranial abnormality General: the patient is well developed and nourished. No acute distress. Intubated CT head, 10/07/2024: No acute intracranial abnormality. CT head, 10/11/2024: No acute intracranial abnormality vital signs Vital Sign Date Time Temp Pulse Resp B/P (MAP) Pulse Ox O2 Delivery O2 Flow Rate FiO2 10/12/24 20:10 83 18 98/61 (73) 99 30 10/12/24 19:00 98.6 209.5 10/12/24 18:51 Mechanical Ventilator Total Intake and Output 10/11/24 10/11/24 10/12/24 15:00 23:00 07:00 Intake Total 440.816 ml 303.938 ml 523.875 ml Output Total 1225 ml 1175 ml Balance 440.816 ml -921.062 ml -651.125 ml medications Current Medications Medications Dose Ordered Sig/Liliam Route Start Time Stop Time Status Last Admin Dose Admin Midazolam HCl 50 ml @ 1 mls/hr Q24H IV 10/07/24 04:45 10/12/24 18:20 5 MLS/HR Fentanyl Citrate 250 ml @ 2.5 mls/hr Q24H IV 10/07/24 06:15 10/12/24 06:27 15 MLS/HR Ondansetron HCl 4 mg Q4HP PRN IV 10/07/24 10:00 Nitroglycerin 0.4 mg Q5MINP PRN SL 10/07/24 10:00 Morphine Sulfate 2 mg Q30M PRN IV 10/07/24 10:00 Pantoprazole Sodium 40 mg DAILY IV 10/07/24 10:00 10/12/24 10:14 40 MG Norepinephrine Bitartrate 250 ml @ 3.75 mls/hr Q24H IV 10/07/24 12:15 10/10/24 06:50 18.75 MLS/HR Aspirin 81 mg DAILY PO 10/08/24 10:00 10/12/24 10:14 81 MG Mexiletine HCl 150 mg TID GT 10/08/24 22:00 10/12/24 14:14 150 MG Acetaminophen 500 mg Q6HP PRN PO 10/08/24 22:30 10/09/24 21:26 500 MG Enteral Nutritional Formula 1,000 ml 55ML/HR GT 10/09/24 18:45 Esmolol HCl 250 ml @ 0 mls/hr Q0M IV 10/10/24 07:45 Phenylephrine HCl 80 mg/Sodium Chloride 250 ml @ 7.5 mls/hr Q24H IV 10/10/24 09:30 10/11/24 17:16 16.875 MLS/HR Ertapenem 1 gm/ Sodium Chloride 50 ml @ 100 mls/hr DAILY IV 10/10/24 20:00 10/12/24 10:06 100 MLS/HR Heparin Sodium/ Dextrose 250 ml @ 11 mls/hr [id number] IV 10/12/24 05:00 10/12/24 10:13 11 MLS/HR Furosemide 20 mg BIDD IV 10/12/24 18:00 10/12/24 17:43 20 MG objective The patient is well-nourished and well-developed with no distress. The patient is intubated MENTAL STATUS: Subjective CRANIAL NERVES: Pupils are equal, round and reactive.There are corneal reflexes and doll's eyes phenomenon. No signs of facial weakness. There are gagging or coughing reflexes SENSATION: Responses to pain stimuli. MOTOR: Normal tone in the upper and lower extremity. Normal muscle bulk. No fasciculations. No spontaneous movement. REFLEXES: Deep tendon reflexes are symmetrical. No pathological reflexes. CEREBELLAR/COORDINATION: Deferred GAIT/STATION: deferred. laboratory and microbiology Laboratory Tests 10/12/24 03:07 Test 10/12/24 03:07 Range/Units Serum Glucose 74 74-106 mg/dL Problem List Cardiopulmonary arrest Status post CPR Metabolic encephalopathy Hypoxic encephalopathy Congestive heart failure Leukocytosis/sepsis Respiratory failure Elevated liver function tests She is waking up Assessment/Plan Monitoring Supportive treatment ICU care Stabilize vitals Respiratory support/vent management Hold off Lipitor (elevated liver function tests, LDL 31) (home medications included Lipitor 40 mg daily) DVT prophylaxis GI prophylaxis Cardiology on case Pulmonology on case Nephrology on case Consult GI Re: Elevated liver function tests Need more history This medical document was created using an electronic medical record system with [employer] dictation system. Although this document has been carefully reviewed, there may still be some phonetic and typographical errors. These areas are purely typographical due to imperfections of the software programs, and do not reflect any compromise in the patient's medical care. Prognosis guarded Dietary Evaluation Review Comments: 1) TF Jevity 1.2Cal @ 55 ml/hr. x 24hr along with Pro-stat 1 pk daily. Start @ 20ml/hr, increase 10ml/hr Q4H until goal is reached. TF @ goal volume provides 1684 kcal (100% energy needs), 88 gm protein (100% protein needs), 1065 ml free water. 2) Water flush 100ml Q4H if allowed, adjust PRN 3) Advance to cardiac diet as medically feasible 4) Monitor NPO status, lab values, wt trend, I/O Expected Outcomes/Goals: To meet >75% estimated needs within 7 days Lab values to improve Fu 2-3 days Plan discussed with: Other Critical Care Time(min): 30 CAROLINE ROBB MD Oct 12, 2024 21:41
--- NOTE | 2024-10-12 22:11 | DVHINCON2 ---
Date of service: Oct 11, 2024 Family History: Alcoholism Cardiovascular disease G8 MOTHER Allergies: Coded Allergies: NO KNOWN ALLERGIES (Unverified , 10/07/24) Current Medications Current Medications Medications (Trade) Dose Ordered Sig/Liliam Route PRN Reason Start Time Stop Time Status Last Admin Heparin Sodium/ Dextrose 250 ml @ 11 mls/hr [id number] IV 10/12/24 05:00 10/12/24 10:13 Magnesium Sulfate/ Dextrose 100 ml @ 100 mls/hr Q1HR IV 10/12/24 06:00 10/12/24 07:59 DC 10/12/24 10:13 Potassium Chloride 100 ml @ 50 mls/hr Q2H IV 10/12/24 05:45 10/12/24 09:44 DC 10/12/24 10:06 Furosemide (Lasix Injection) 20 mg BIDD IV 10/12/24 18:00 10/12/24 17:43 Vital Signs Vital Signs Date Time Temp Pulse Resp B/P (MAP) Pulse Ox O2 Delivery O2 Flow Rate FiO2 10/12/24 22:05 84 18 96/56 (69) 99 30 10/12/24 22:00 99.1 210.4 10/12/24 22:00 Mechanical Ventilator+ Labs/Diagnostic Data Labs Test 10/12/24 17:50 10/12/24 06:54 10/12/24 03:07 10/11/24 03:23 Range/Units Prothrombin Time 12.8 H 9.3-11.8 sec Prothrombin Time INR 1.23 H 0.9-1.15 Activated Partial Thromboplast Time 55.7 H 24.5-34.5 SEC Blood Gas Specimen Type Arterial Blood Gas Sample Site Right radial Blood Gas Patient Temperature 37.0 Arterial Blood Date Drawn [id number] Arterial Blood pH 7.523 H 7.350-7.450 Arterial Blood Partial Pressure CO2 31.1 L 32.0-45.0 mmHg Arterial Blood Partial Pressure O2 111.8 H 83.0-108.0 mmHg Arterial Blood HCO3 25.0 21.0-28.0 mmol/L Arterial Blood Oxygen Saturation 97.8 94.0-98.0 % Arterial Blood Base Excess 2.4 -2.0-3.0 mmol/L Arterial Blood Oxyhemoglobin 97.2 94.0-98.0 % Arterial Blood Carboxyhemoglobin 0.3 L 0.5-1.5 % Arterial Blood Methemoglobin 0.3 0.0-1.5 % Trung Test Modified Blood Gas Total Hemoglobin 9.10 L 12.0-16.0 g/dL Blood Gas Set Respiration Rate 18.0 Blood Gas Modality Vent - ac FiO2 % 30.0 Blood Gas Tidal Volume 450.0 Blood Gas PEEP or CPAP 5.0 White Blood Count 10.3 # 4.4-10.8 10^3/uL Red Blood Count 2.59 L 4.0-5.20 10^6/uL Hemoglobin 8.3 L 12.2-16.2 g/dL Hematocrit 23.9 L 36.0-46.0 % Mean Corpuscular Volume 92.1 80.0-100.0 fL Mean Corpuscular Hemoglobin 31.9 28.0-32.0 pg Mean Corpuscular Hemoglobin Concent 34.6 32.0-36.0 g/dL Red Cell Distribution Width 19.9 H 11.8-14.3 % Platelet Count 223 140-450 10^3/uL Mean Platelet Volume 9.4 6.9-10.8 fL Neutrophils (%) (Auto) 67.5 37.0-80.0 % Lymphocytes (%) (Auto) 23.8 10.0-50.0 % Monocytes (%) (Auto) 7.7 0.0-12.0 % Eosinophils (%) (Auto) 0.6 0.0-7.0 % Basophils (%) (Auto) 0.4 0.0-2.0 % Neutrophils # (Auto) 7.0 1.6-8.6 10 ^3/uL Lymphocytes # (Auto) 2.5 0.4-5.4 10 ^3/uL Monocytes # (Auto) 0.8 0-1.3 10 ^3/uL Eosinophils # (Auto) 0.1 0-0.8 10 ^3/uL Basophils # (Auto) 0 0-0.2 10 ^3/uL Nucleated Red Blood Cells 0.3 % Sodium Level 135 L 136-145 mmol/L Potassium Level 3.2 L 3.5-5.1 mmol/L Chloride Level 99 98-107 mmol/L Carbon Dioxide Level 27 20-31 mmol/L Anion Gap 9 5-15 Blood Urea Nitrogen 11 9-23 mg/dL Creatinine 0.72 0.550-1.02 mg/dL Glomerular Filtration Rate Calc 99 >90 mL/min BUN/Creatinine Ratio 15.3 10.0-20.0 Serum Glucose 74 74-106 mg/dL Calcium Level 7.5 L 8.7-10.4 mg/dL Magnesium Level 1.8 1.6-2.6 mg/dL Total Bilirubin 0.5 0.2-1.0 mg/dL Aspartate Amino Transferase (AST) 131 H 13-40 U/L Alanine Aminotransferase (ALT) 130 H 7-40 U/L Alkaline Phosphatase 130 H 46-116 U/L Total Protein 4.7 L 5.7-8.2 g/dL Albumin 2.4 L 3.2-4.8 g/dL Serum Immunoglobulin G 1514 259-5628 mg/dL Immunoglobulin A 210 87-352 mg/dL Immunoglobulin M 186 26-217 mg/dL Free [place] Light Chains, Quant 49.1 H 3.3-19.4 mg/L Free [place]/Lambda Light Chain Ratio 1.54 0.26-1.65 Hepatitis A IgM Antibody Negative Hepatitis B Surface Antigen Negative Negative Hepatitis B Core IgM Antibody Negative Negative Hepatitis C Antibody Negative Negative Test 10/09/24 22:25 10/07/24 22:13 10/07/24 14:09 10/07/24 10:56 Range/Units Urine Creatinine 31.20 30.0-125.0 mg/dL Urine Protein/Creatinine Ratio 0.72 Urine Sodium 79 40-220 mmol/L Urine Total Protein 22.5 H 1-14 mg/dL Blood Gas Spontaneous Rate 20 Blood Gas Spontaneous Tidal Volume 488 Blood Gas Critical Value Read Back Yes Blood Gas Notified Whom Md sarkis rodas Blood Gas Notified Time [id number] Blood Gas Notified By [employer] Coordinator mk crane Troponin I High Sensitivity 117 *H </=34 ng/L B-Type Natriuretic Peptide 457.16 0-100 pg/mL Triglycerides Level 71 < 150 mg/dL Cholesterol Level 66 < 200 mg/dL LDL Cholesterol 31 < 100 mg/dL HDL Cholesterol 21 L 40-59 mg/dL Test 10/07/24 06:17 10/07/24 05:40 10/07/24 04:12 Range/Units Urine Color Yellow Yellow Urine Clarity Turbid H Clear Urine pH 6.0 5.0-9.0 Urine Specific [place] 1.033 1.001-1.035 Urine Protein 3+ H Negative Urine Ketones Trace Negative Urine Blood 1+ H Negative /uL Urine Nitrite Negative Negative Urine Bilirubin Negative Negative Urine Urobilinogen 3 H Negative mg/dL Urine Leukocyte Esterase Negative Negative /uL Urine Glucose 1+ H Normal mg/dL Urine Opiates Screen Neg NEGATIVE Urine Fentanyl Screen Neg NEGATIVE Urine Barbiturates Screen Neg NEGATIVE Urine Phencyclidine Screen Neg NEGATIVE Urine Amphetamines Screen Neg NEGATIVE Urine Benzodiazepines Screen Neg NEGATIVE Urine Cocaine Screen Neg NEGATIVE Urine Cannabinoids Screen Neg NEGATIVE Lactic Acid Level 2.0 0.4-2.0 mmol/L Differential Total Cells Counted 100.0 100 Neutrophils % (Manual) 54 37.0-80.0 Band Neutrophils % (Manual) 1 Lymphocytes % (Manual) 37 10.0-50.0 Monocytes % (Manual) 7 0-12 Eosinophils % (Manual) 1 0-7 Basophils % (Manual) 0 0.0-2.0 Metamyelocytes % (manual) 0 Myelocytes % (Manual) 0 Promyelocytes % (Manual) 0 Blast Cells % (Manual) 0 Reactive Lymphocytes 0 Platelet Estimate Adequate Microbiology Date/Time Source Procedure Growth Status 10/09/24 08:49 Blood Blood Culture - Preliminary NO GROWTH AFTER 72 HOURS OF INCUBATION. Resulted 10/07/24 16:50 Nose MRSA Screen - Final Complete 10/07/24 04:26 Sputum Gram Stain - Final Complete 10/07/24 04:26 Respiratory Culture - Final Enterobacter cloacae Complete Problems(with codes): (1) Pneumonia (2) Cardiac arrest (3) Ventricular fibrillation (4) Sepsis, unspecified organism Plan/Recommendation ASSESSMENT AND PLAN: ID Problem List: \-- Status post cardiac arrest with return of spontaneous circulation (ROSC) \-- Ventricular tachycardia and atrial fibrillation \-- Recent aspiration event/pneumonitis versus pneumonia, Enterobacter cloacae isolated \-- Severe reduced ejection fraction (EF 1520%), dilated LV, severe global dysfunction \-- History of CABG with stents, mitral ring implant \-- Hypothermia, hypoxia requiring intubation and sedation \-- Sepsis (suspected/treated), leukocytosis (now resolved) \-- Ongoing vasopressor requirement (phenylephrine) \-- ICD placement planned Assessment Ms. Smith is a 54-year-old female with a past medical history notable for prior coronary artery bypass grafting (CABG) with stenting, recent mitral ring implant, and significant cardiac disease. She presented on 10/07 with an acute witnessed cardiac arrest during dinner; initial rhythm was ventricular tachycardia/atrial fibrillation. ROSC was achieved on EMS arrival after a single shock and Narcan administration. She was found to be hypothermic and hypotensive and required intubation for airway protection due to altered mental status. During her ICU course, she had recurrent ventricular tachycardia and atrial fibrillation, managed with antiarrhythmic drip (amiodarone), vasopressors (initially Levophed, currently phenylephrine), and heparin drip. Echocardiogram and left heart catheterization confirmed poor left ventricular function (EF 1520%, dilated LV) and patent bypass grafts. The patient also experienced aspiration pneumonitis, with Enterobacter cloacae isolated from sputum (sensitive to cefepime); empiric antibiotics were escalated to ertapenem following transient fever and leukocytosis, which have since resolved. Currently, she remains intubated on pressure support (tolerating CPAP trials), minimally following commands. She is on phenylephrine, Lasix drip, and heparin drip, with ongoing close monitoring. Cardiology in agreement to proceed with ICD placement given recurrent arrhythmias. Infectious disease clearance provided for this, as there is no evidence of persistent infection or sepsis (blood cultures negative, leukocytosis resolved). Plan: \-- Continue ertapenem to complete a total of ten days of antibiotics; consider de-escalation to cefepime pending clinical improvement and repeat sputum cultu res. \-- Monitor for further infectious complications; consider repeat sputum cultures to document clearance. \-- Continue Lasix and heparin drips per cardiology recommendations. \-- Maintain phenylephrine drip; titrate as needed to maintain MAP. \-- Defer ICD placement and antiarrhythmic management to cardiology. patient is clear from infectious disease perspective for ICD placement \-- Monitor neurological status; currently, patient is intermittently following commands but remains not fully alert. \-- No evidence of active sepsis or bacteremia at this time. \-- Continue supportive ICU care and multidisciplinary management. Authorized and Performed by: to eaton md Total critical care time: Approximately 76 minutes Due to a high probability of clinically significant, life threatening deterioration, the patient required my highest level of preparedness to intervene emergently and I personally spent this critical care time directly and personally managing the patient. This critical care time included obtaining a history; examining the patient; pulse oximetry; ordering and review of studies; arranging urgent treatment with development of a management plan; evaluation of patient's response to treatment; frequent reassessment; and, discussions with other providers. This critical care time was performed to assess and manage the high probability of imminent, life-threatening deterioration that could result in multi-organ failure. It was exclusive of separately billable procedures and treating other patients and teaching time. Isolation Precautions: Standard \*Assessment and plan discussed with the team as written above. \*Plan is subject to modification; updates to be documented as new data come in. Thank you for the consult. ID will continue to follow as needed. Please contact the service for further concerns. To Eaton M.D. [facility] Ph: ? Teams text: [email or web address] Electronically signed by: To Eaton MD, 10/11/2024 \ History: The patient's chart, clinical data, and medications were reviewed in detail; patient was assessed and examined in the ICU. Ms. Smith is a 54-year-old female with significant cardiac history (CABG with stents, mitral ring implant), presenting after acute witnessed cardiac arrest (ventricular tachycardia/atrial fibrillation) with ROSC. She experienced hypothermia, hypotension, and required mechanical ventilation for airway protection. Received antiarrhythmic therapy, vasopressors, and empiric/targeted antibiotics during ICU stay. Infectious workup revealed Enterobacter cloacae in sputum; treated with ertapenem with good clinical response. Review of Systems: A complete 10-system review was completed and negative except as noted in the HPI or here. ROS: -CONSTITUTIONAL: One-time Tmax 100.6F on , otherwise denies current fevers, chills, or weight loss. -HEENT: Not discussed. -RESPIRATORY: No current productive cough or thick sputum secretions. No dyspnea reported. -CV: No chest pain on current exam; history notable for arrhythmias. -GI: No diarrhea, open wounds, normal active bowel sounds, no abdominal pain reported. -: Not discussed. -MSK: Not discussed. -SKIN: No rashes reported. -NEUROLOGICAL: Intermittently follows commands; otherwise unresponsive and not fully alert. -PSYCHIATRIC: Not discussed. Past Medical History: \-- CABG with stents (history, date unspecified) \-- Mitral ring implant \-- Significant cardiac arrhythmia history (ventricular arrhythmias, atrial fibrillation) \-- No additional history recorded Past Surgical History: \-- Coronary artery bypass grafting (CABG) with stent placement (date and details not specified) \-- Mitral ring procedure ([facility]; date not stated) Home Medications: Not provided in transcript. Allergies: Not provided in transcript. Family History: Not provided in transcript. Social History: Not provided in transcript. Social Determinants of Health: Not provided in transcript. Objective: Physical Exam: General: NAD Neck: Supple. No masses. HEENT: PERRL. Normal lids and conjunctiva. Moist mucous membranes. Oropharynx without lesions, exudates or excessive erythema. Normal appearance of the external aspects of the nose and ears. Heart: Regular rhythm, normal rate. No murmur. No lower extremity edema. Lungs: Normal respiratory effort. Clear to auscultation bilaterally. No wheezes. No crackles. Abdomen: Soft. Non-tender. Non-distended. No masses or abdominal hernia. Normal active bowel sounds. Msk: No digital cyanosis. Normal strength and tone in all 4 zarate bs. Skin: Warm and dry, no rashes. Neuro: Occasionally follows commands, awake but not fully alert, not consistently following voice or commands. No focal neurological deficits reported. Psych: Not discussed. Oriented to person, place, time, situation: Not fully oriented; intermittently responsive. Lines: Not provided in transcript. Diagnostic Studies: Available diagnostic studies were reviewed personally. Significant relevant results and findings are summarized below and discussed in the Assessment and Plan above. Pertinent Imaging: Recent Results (dates not provided in transcript): \-- Chest X-ray on admission: Cardiomegaly, diffuse interstitial prominence, pulmonary vasculature congestion. \-- CXR 10/10: Advancement of ET tube, no evidence of pneumonia. \-- Liver ultrasound: Hepatic steatosis, hepatomegaly, cholelithiasis. \-- Duplex arterial ultrasound (left upper extremity): No hemodynamically significant stenosis. \-- Echocardiogram/RICHIE: EF 1520%, dilated left ventricle, severe global dysfunction, mitral ring implant confirmed. \-- Left heart catheterization: [place] and patent saphenous grafts. \-- Labs: Troponin peaked at 41, now downtrending. WBC peaked at 21.2, now improved to 8.9. Hemoglobin 10.1. Platelets, INR, potassium, and creatinine within reasonable ranges. Blood cultures negative. Respiratory cultures: Enterobacter cloacae (cefepime-sensitive). If further studies become available, addenda will be provided as needed. Plan discussed with: Patient TO EATON MD Oct 12, 2024 22:11
--- NOTE | 2024-10-12 22:38 | DVHPN2 ---
Consult Progress Note Date Seen: Oct 22, 2024 Subjective Patient reports: Other Objective vital signs Vital Sign Date Time Temp Pulse Resp B/P (MAP) Pulse Ox O2 Delivery O2 Flow Rate FiO2 10/12/24 22:05 84 18 96/56 (69) 99 30 10/12/24 22:00 99.1 210.4 10/12/24 22:00 Mechanical Ventilator+ Total Intake and Output 10/11/24 10/11/24 10/12/24 15:00 23:00 07:00 Intake Total 440.816 ml 303.938 ml 523.875 ml Output Total 1225 ml 1175 ml Balance 440.816 ml -921.062 ml -651.125 ml medications Current Medications Medications Dose Ordered Sig/Liliam Route Start Time Stop Time Status Last Admin Dose Admin Midazolam HCl 50 ml @ 1 mls/hr Q24H IV 10/07/24 04:45 10/12/24 21:31 Fentanyl Citrate 250 ml @ 2.5 mls/hr Q24H IV 10/07/24 06:15 10/12/24 21:32 Ondansetron HCl 4 mg Q4HP PRN IV 10/07/24 10:00 Nitroglycerin 0.4 mg Q5MINP PRN SL 10/07/24 10:00 Morphine Sulfate 2 mg Q30M PRN IV 10/07/24 10:00 Pantoprazole Sodium 40 mg DAILY IV 10/07/24 10:00 10/12/24 10:14 Norepinephrine Bitartrate 250 ml @ 3.75 mls/hr Q24H IV 10/07/24 12:15 10/10/24 06:50 Aspirin 81 mg DAILY PO 10/08/24 10:00 10/12/24 10:14 Mexiletine HCl 150 mg TID GT 10/08/24 22:00 10/12/24 21:31 Acetaminophen 500 mg Q6HP PRN PO 10/08/24 22:30 10/09/24 21:26 Enteral Nutritional Formula 1,000 ml 55ML/HR GT 10/09/24 18:45 10/12/24 21:34 Esmolol HCl 250 ml @ 0 mls/hr Q0M IV 10/10/24 07:45 Phenylephrine HCl 80 mg/Sodium Chloride 250 ml @ 7.5 mls/hr Q24H IV 10/10/24 09:30 10/12/24 21:32 Ertapenem 1 gm/ Sodium Chloride 50 ml @ 100 mls/hr DAILY IV 10/10/24 20:00 10/12/24 10:06 Heparin Sodium/ Dextrose 250 ml @ 11 mls/hr [id number] IV 10/12/24 05:00 10/12/24 10:13 Furosemide 20 mg BIDD IV 10/12/24 18:00 10/12/24 17:43 laboratory and microbiology Laboratory Tests 10/12/24 03:07 Test 10/12/24 03:07 Range/Units Serum Glucose 74 74-106 mg/dL Problem List/Assessment/Plan Problems(with codes): (1) Shock liver (2) Pneumonia (3) Sepsis, unspecified organism (4) Ventricular fibrillation (5) Cardiac arrest Problem List/Assessment/Plan ASSESSMENT AND PLAN: ID Problem List: \-- Status post cardiac arrest with return of spontaneous circulation (ROSC) \-- Ventricular tachycardia and atrial fibrillation \-- Recent aspiration event/pneumonitis versus pneumonia, Enterobacter cloacae isolated \-- Severe reduced ejection fraction (EF 1520%), dilated LV, severe global dysfunction \-- History of CABG with stents, mitral ring implant \-- Hypothermia, hypoxia requiring intubation and sedation \-- Sepsis (suspected/treated), leukocytosis (now resolved) \-- Ongoing vasopressor requirement (phenylephrine) \-- ICD placement planned Assessment Ms. Smith is a 54-year-old female with a past medical history notable for prior coronary artery bypass grafting (CABG) with stenting, recent mitral ring implant, and significant cardiac disease. She presented on 10/07 with an acute witnessed cardiac arrest during dinner; initial rhythm was ventricular tachycardia/atrial fibrillation. ROSC was achieved on EMS arrival after a single shock and Narcan administration. She was found to be hypothermic and hypotensive and required intubation for airway protection due to altered mental status. During her ICU course, she had recurrent ventricular tachycardia and atrial fibrillation, managed with antiarrhythmic drip (amiodarone), vasopressors (initially Levophed, currently phenylephrine), and heparin drip. Echocardiogram and left heart catheterization confirmed poor left ventricular function (EF 1520%, dilated LV) and patent bypass grafts. The patient also experienced aspiration pneumonitis, with Enterobacter cloacae isolated from sputum (sensitive to cefepime); empiric antibiotics were escalated to ertapenem following transient fever and leukocytosis, which have since resolved. Currently, she remains intubated on pressure support (tolerating CPAP trials), minimally following commands. She is on phenylephrine, Lasix drip, and heparin drip, with ongoing close monitoring. Cardiology in agreement to proceed with ICD placement given recurrent arrhythmias. Infectious disease clearance provided for this, as there is no evidence of persistent infection or sepsis (blood cultures negative, leukocytosis resolved). 10/12: awaiting AICD placement Plan: \-- Continue ertapenem to complete a total of ten days of antibiotics; consider de-escalation to cefepime pending clinical improvement and repeat sputum cultures. \-- Monitor for further infectious complications; consider repeat sputum cultures to document clearance. \-- Continue Lasix and heparin drips per cardiology recommendations. \-- Maintain phenylephrine drip; titrate as needed to maintain MAP. \-- Defer ICD placement and antiarrhythmic management to cardiology. patient is clear from infectious disease perspective for ICD placement \-- Monitor neurological status; currently, patient is intermittently following commands but remains not fully alert. \-- No evidence of active sepsis or bacteremia at this time. \-- Continue supportive ICU care and multidisciplinary management. Authorized and Performed by: soham gramajo md Total critical care time: Approximately 76 minutes Due to a high probability of clinically significant, life threatening deterioration, the patient required my highest level of preparedness to intervene emergently and I personally spent this critical care time directly and personally managing the patient. This critical care time included obtaining a history; examining the patient; pulse oximetry; ordering and review of studies; arranging urgent treatment with development of a management plan; evaluation of patient's response to treatment; frequent reassessment; and, discussions with other providers. This critical care time was performed to assess and manage the high probability of imminent, life-threatening deterioration that could result in multi-organ failure. It was exclusive of separately billable procedures and treating other patients and teaching time. Isolation Precautions: Standard Plan discussed with: Other Dietary Evaluation Review Comments: 1) TF Jevity 1.2Cal @ 55 ml/hr. x 24hr along with Pro-stat 1 pk daily. Start @ 20ml/hr, increase 10ml/hr Q4H until goal is reached. TF @ goal volume provides 1684 kcal (100% energy needs), 88 gm protein (100% protein needs), 1065 ml free water. 2) Water flush 100ml Q4H if allowed, adjust PRN 3) Advance to cardiac diet as medically feasible 4) Monitor NPO status, lab values, wt trend, I/O Expected Outcomes/Goals: To meet >75% estimated needs within 7 days Lab values to improve Fu 2-3 days SOHAM GRAMAJO MD Oct 12, 2024 22:38
[2024-10-12 23:59] LABS: INR 1.22 (0.9-1.15); Partial Thromboplastin Time 49.0 SEC (24.5-34.5); Prothrombin Time 12.7 sec (9.3-11.8)
[2024-10-13] VITALS (107 sets, daily range): BP systolic 86–154; BP diastolic 35–137; PULSE 73–83; RESP 15–27; TEMP 98.6–99.3; O2SAT 99–100
[2024-10-13] MEDS: HEPARIN DRIP/D5W 100UNITS/ML 250 ML IV SCH ×2 (00:44→14:15)
[2024-10-13 02:53] LABS: Hematocrit 25.1 % (36.0-46.0); Hemoglobin 8.5 g/dL (12.2-16.2); Mean Corpuscular Hemoglobin 31.6 pg (28.0-32.0); Mean Corpuscular Volume 93.4 fL (80.0-100.0)
[2024-10-13 03:13] LABS: Anion Gap 8 (5-15); BUN/Creatinine Ratio 12.7 (10.0-20.0); Blood Urea Nitrogen 10 mg/dL (9-23); Carbon Dioxide 27 mmol/L (20-31); Chloride 100 mmol/L (98-107)
[2024-10-13 03:14] LABS: Bilirubin, Total 0.6 mg/dL (0.2-1.0)
[2024-10-13 03:17] LABS: Alanine Aminotransferase 94 U/L (7-40); Albumin 2.6 g/dL (3.2-4.8); Alkaline Phosphatase 128 U/L (46-116); Calcium 7.7 mg/dL (8.7-10.4); Glucose 109 mg/dL (74-106); Potassium 3.4 mmol/L (3.5-5.1); Sodium 135 mmol/L (136-145); Total Protein 5.0 g/dL (5.7-8.2)
[2024-10-13 03:39] LABS: Anisocytosis Slight; Total Cells Counted 100.0 (100)
[2024-10-13] MEDS: POTASSIUM CHL 20MEQ/100ML 100 ML IV SCH (05:42)
--- NOTE | 2024-10-13 07:06 | DVH ---
XY CHEST PORTABLE, HISTORY: PT INTUBATED COMPARISON: XY CHEST PORTABLE on DOS: 10/12/24, XY CHEST XRAY 1 VIEW on DOS: 10/11/24, XY CHEST PORTABL E on DOS: 10/10/24 XY CHEST PORTABLE on DOS: 10/12/24, XY CHEST XRAY 1 VIEW on DOS: 10/11/24, XY CHEST PORTABLE on DOS: TECHNICAL DATA: 1 view of the chest was obtained. FINDINGS: Lines and tubes: Stable lines and tubes. Cardiomediastinal silhouette: prominent Pulmonary vasculature: prominent Lung expansion: low Lung airspace: normal Lung interstitium: prominent Pleura: normal Pneumothorax: no Bones: Unremarkable Other: no IMPRESSION: Stable lines and tubes. Similar lung aeration.
[2024-10-13 07:10] LABS: Base Excess 2.9 mmol/L (-2.0-3.0)
[2024-10-13 07:51] LABS: INR 1.19 (0.9-1.15); Partial Thromboplastin Time 64.8 SEC (24.5-34.5); Prothrombin Time 12.4 sec (9.3-11.8)
--- NOTE | 2024-10-13 10:14 | DVHPN2 ---
Progress Note - Dictate Date Seen: Oct 13, 2024 Has the PT tested + for MRSA If YES, has PT been informed?: No Medical Necessity Reason Pt with a Central, PICC or Fol: Yes vital signs Vital Sign Date Time Temp Pulse Resp B/P (MAP) Pulse Ox O2 Delivery O2 Flow Rate FiO2 10/13/24 10:00 77 10/13/24 10:00 18 100 Mechanical Ventilator+ 30 30 10/13/24 09:30 98.8 102/59 (73) 209.8 Total Intake and Output 10/12/24 10/12/24 10/13/24 15:00 23:00 07:00 Intake Total 424.000 ml 779.251 ml 574.504 ml Output Total 1150 ml 450 ml Balance 424.000 ml -370.749 ml 124.504 ml medications Current Medications Medications Dose Ordered Sig/Liliam Route Start Time Stop Time Status Last Admin Dose Admin Midazolam HCl 50 ml @ 1 mls/hr Q24H IV 10/07/24 04:45 10/12/24 21:31 5 MLS/HR Fentanyl Citrate 250 ml @ 2.5 mls/hr Q24H IV 10/07/24 06:15 10/12/24 21:32 15 MLS/HR Ondansetron HCl 4 mg Q4HP PRN IV 10/07/24 10:00 Nitroglycerin 0.4 mg Q5MINP PRN SL 10/07/24 10:00 Morphine Sulfate 2 mg Q30M PRN IV 10/07/24 10:00 Pantoprazole Sodium 40 mg DAILY IV 10/07/24 10:00 10/13/24 09:05 40 MG Norepinephrine Bitartrate 250 ml @ 3.75 mls/hr Q24H IV 10/07/24 12:15 10/10/24 06:50 18.75 MLS/HR Aspirin 81 mg DAILY PO 10/08/24 10:00 10/13/24 09:06 81 MG Mexiletine HCl 150 mg TID GT 10/08/24 22:00 10/13/24 05:42 150 MG Acetaminophen 500 mg Q6HP PRN PO 10/08/24 22:30 10/09/24 21:26 500 MG Enteral Nutritional Formula 1,000 ml 55ML/HR GT 10/09/24 18:45 10/12/24 21:34 1,000 ML Esmolol HCl 250 ml @ 0 mls/hr Q0M IV 10/10/24 07:45 Phenylephrine HCl 80 mg/Sodium Chloride 250 ml @ 7.5 mls/hr Q24H IV 10/10/24 09:30 10/13/24 09:06 21.563 MLS/HR Ertapenem 1 gm/ Sodium Chloride 50 ml @ 100 mls/hr DAILY IV 10/10/24 20:00 10/13/24 09:05 100 MLS/HR Furosemide 20 mg BIDD IV 10/12/24 18:00 10/13/24 05:11 20 MG Heparin Sodium/ Dextrose 250 ml @ 13 mls/hr [id number] IV 10/13/24 00:30 10/13/24 00:44 13 MLS/HR laboratory and microbiology Laboratory Tests 10/13/24 02:15 Test 10/13/24 02:15 Range/Units Serum Glucose 109 H 74-106 mg/dL Assessment/Plan Patient is a 54-year-old female who was brought to the hospital for witnessed syncope. She is intubated and is being managed in ICU. Information was obtained by reviewing the chart and communicating with patient's son (over the phone). Family recognized witnessed syncope and started CPR and called EMS. Reportedly, EMS found the patient in ventricular fibrillation and shocked the patient and brought the patient to the hospital. Patient was intubated in emergency room and transferred to ICU. Patient was on amiodarone drip. Later the patient had ventricular tachycardia (Systane). High sensitive troponin had been minimally/flatly elevated. Presentation was not in favor of acute coronary syndrome. Cardiology is involved for cardiac aspects of care. Intubated. Noncommunicative. No JVD. Mucosa pale. No carotid bruit. Scattered rhonchi in the lungs is heard. Cardiac: Regular, no thrill. Systolic murmur 2/6 in apex is heard. Abdomen is soft. No edema in extremities. Past medical history as per son: Congenital heart disease, status post bypass WBC: 14.5 - 11.9 - 18.8 - 20.0 - 21.2 - 14.3 - 10.3 - 8.9 Hemoglobin: 10.1 - 9.6 - 9.2 - 8.8 - 8.7 - 8.0 - 8.3 - 8.5 Creatinine: 0.95 - 0.93 - 0.87 - 0.83 - 0.83 - 0.76 - 0.68 - 0.72 - 0.79 Potassium: 3.4 - 4.0 - 4.6 - 3.5 - 3.3 - 4.1 - 3.7 - 3.2 - 3.7 - 4.0 - 3.2 - 3.4 Magnesium: 2.0 - 1.6 - 2.0 - 3.0 - 1.5 - 1.9 - 2.1 - 1.8 - 2.0 Troponin (high sensitive): 141 - 138 - 117 BNP: 457.16 AST/ALT: 32/11 - 19/13 - 538/168 - 293/152 - 131/130 - 78/94 UDS: non-revealing Chest x-ray revealed: Lines and Tubes: Endotracheal tube tip projects approximately 1.4 cm above the level of the tyler. Enteric catheter courses below the lateral of the diaphragm and terminates beyond the inferior margin of the image. Right internal jugular central venous catheter terminates within the distal superior vena cava. Lungs: Moderate diffuse increased prominence of the pulmonary vasculature without evidence of focal consolidation. Pleura: No effusion. No pneumothorax. Cardiomediastinal contours: Cardiomegaly. Bones: Unremarkable IMPRESSION: 1. Cardiomegaly and diffuse increased prominence of the pulmonary vasculature. 2. Lines and tubes as above. Repeat chest x-ray revealed: IMPRESSION: 1. Endotracheal tube tip 1.6 cm above the tyler; consider 2 cm retraction 2. Mild pulmonary vascular congestion. Moderate cardiomegaly. Repeat chest xry revealed: IMPRESSION: Endotracheal tube tip 1.6 cm above the tyler; consider 2 cm retraction Mild pulmonary vascular congestion. Moderate cardiomegaly. Repeat chest xry revealed: IMPRESSION: 1. Stable cardiomegaly, small left pleural effusion and mild diffuse increased prominence of the pulmonary vasculature. 2. Repositioned endotracheal tube as above. Remaining lines and tubes unchanged. Repeat chest xry revealed: IMPRESSION: 1. Cardiomegaly, stable diffuse increased prominence of the pulmonary vasculature and small bilateral pleural effusions. 2. Slight interval advancement of endotracheal tube as above. Remaining lines and tubes unchanged. Repeat chest xry revealed: IMPRESSION: 1. Slight interval decrease in diffuse increased prominence of the pulmonary vasculature. 2. Stable cardiomegaly and small left pleural effusion. 3. Lines and tubes unchanged. Repeat chest xry revealed: IMPRESSION: 1. Cardiomegaly and small left pleural effusion. 2. Lines and tubes unchanged. Repeat chest xry revealed: IMPRESSION: Stable lines and tubes. Similar lung aeration. Left upper ext arterial duplex: IMPRESSION: No hemodynamically significant stenosis based on peak systolic velocity criteria. Left lower ext arterial duplex: IMPRESSION: There is no evidence for peripheral vascular insufficiency in the left lower extremity. No significant focal stenosis is identified. Liver Ultrasound revealed: Hepatic steatosis. Hepatomegaly. Cholelithiasis. CT of the head revealed: IMPRESSION: No acute intracranial abnormality. Repeat CT of head revealed: IMPRESSION: No acute intracranial abnormality. Echocardiogram reported: lvef 15-20% dilated LV severe global dysfunction mild RV dysfunction biatrial enlargement mild moderate MAC, moderate mitral regurg mild to moderate aortic regug (images of echo reviewed and questioned presence of mitral ring and also some component (moderate of Mitral stenosis) EKG revealed sinus rhythm Telemetry revealed occasions of atrial fibrillation. There was occasional sustained ventricular tachycardia. EMS tele monitor revealed ventricular fibrillation for which the patient was shocked. Has remained sinus rhythm LHC revealed: Patent RICHMOND to LAD; Patent SVG to obtuse marginal; LVEF of 20% with increased EDP; Proximal disease in LAD/LCX RICHIE was performed: Consistent with severely reduced LVEF. Consistent with previously implanted Mitral ring, Up to moderate Mitral stenosis/Mitral Regurgitation and also Moderate Aortic insufficiency. Patient is a 54-year-old female who presented with witnessed syncope. She was found to have ventricular fibrillation for which was shocked. Later had repeated episode of sustained ventricular tachycardia. Patient has been kept in ICU. Does have baseline history of coronary artery disease for which has had bypass surgery. Left heart catheterization was performed which revealed patent RICHMOND and patent SVG. ACS is not considered at this point. It is of note that the patient's echocardiogram reveals significantly use systolic function. Valvular heart disease is considered. Findings are in favor of previously implanted mitral ring. By reviewing the echo images, component of up to moderate mitral stenosis could not be ruled out. LHC was performed that ruled out any active specific ischemia as an etiology for presentation. Is off Amiodarone for abnormal LFT. Being followed by Nephrology / Pulmonary / Neurology / GI ID. Tele has remained sinus rhythm. Syncope V-fib s/p shock Sustained V-tach Paroxysmal A-fib VHD, s/p Mitral ring Systolic heart failure Abnormal LFT Cardiac suggestion for management: Manage in ICU Follow up electrolytes and kidney function test and correct abnormalities Full anticoagulation (a-fib with high CHADS-Vasc score). On Heparin drip for now Off Amio drip (worsened LFT) (personally discussed with EP: Dr Armstrong who advised to stop / not to restart Amiodarone) On Mexiletine If need for pressure support: use Phenyl Ephrine May consider Esmolol for PVC/Vtach EP Following ICD implantation as per EP Pulmonary Follow up Provide previous medical records from reaching out to previous hospitals in [facility]... Further evaluation and management depends on the above and clinical course. A total of 75 minutes was spent reviewing the patient record, examining the patient, making a diagnostic and therapeutic plan, discussing this plan with medical personnel, following up on diagnostic studies and following the patient for clinical stability excluding any and all procedures. At least 50% of this time was spent in direct, [id number] contact. Thank you for allowing me to participate in this patient's care. Further recommendations will depend on patient's clinical course. Please do not hesitate to contact me if you have any questions or concerns. This medical document was created using electronic medical record system with yeppt computerized dictation system. Although this document has been carefully reviewed, there may still be some phonetic and typographical errors. These areas are purely typographical due to the imperfection of the software programs, and do not reflect any compromise in the patient's medical care. Dietary Evaluation Review Comments: 1) TF Jevity 1.2Cal @ 55 ml/hr. x 24hr along with Pro-stat 1 pk daily. Start @ 20ml/hr, increase 10ml/hr Q4H until goal is reached. TF @ goal volume provides 1684 kcal (100% energy needs), 88 gm protein (100% protein needs), 1065 ml free water. 2) Water flush 100ml Q4H if allowed, adjust PRN 3) Advance to cardiac diet as medically feasible 4) Monitor NPO status, lab values, wt trend, I/O Expected Outcomes/Goals: To meet >75% estimated needs within 7 days Lab values to improve Fu 2-3 days Plan discussed with: Other (nurse) CORDELL VERA MD Oct 13, 2024 10:14
--- NOTE | 2024-10-13 12:31 | DVHPN2 ---
Progress Note - Dictate Date Seen: Oct 12, 2024 Has the PT tested + for MRSA If YES, has PT been informed?: No Medical Necessity Reason Pt with a Central, PICC or Fol: Yes vital signs Vital Sign Date Time Temp Pulse Resp B/P (MAP) Pulse Ox O2 Delivery O2 Flow Rate FiO2 10/13/24 12:10 76 18 102/60 (74) 100 30 10/13/24 10:00 Mechanical Ventilator+ 10/13/24 09:30 98.8 209.8 Total Intake and Output 10/12/24 10/12/24 10/13/24 15:00 23:00 07:00 Intake Total 424.000 ml 779.251 ml 574.504 ml Output Total 1150 ml 450 ml Balance 424.000 ml -370.749 ml 124.504 ml medications Current Medications Medications Dose Ordered Sig/Liliam Route Start Time Stop Time Status Last Admin Dose Admin Midazolam HCl 50 ml @ 1 mls/hr Q24H IV 10/07/24 04:45 10/12/24 21:31 5 MLS/HR Fentanyl Citrate 250 ml @ 2.5 mls/hr Q24H IV 10/07/24 06:15 10/12/24 21:32 15 MLS/HR Ondansetron HCl 4 mg Q4HP PRN IV 10/07/24 10:00 Nitroglycerin 0.4 mg Q5MINP PRN SL 10/07/24 10:00 Morphine Sulfate 2 mg Q30M PRN IV 10/07/24 10:00 Pantoprazole Sodium 40 mg DAILY IV 10/07/24 10:00 10/13/24 09:05 40 MG Norepinephrine Bitartrate 250 ml @ 3.75 mls/hr Q24H IV 10/07/24 12:15 10/10/24 06:50 18.75 MLS/HR Aspirin 81 mg DAILY PO 10/08/24 10:00 10/13/24 09:06 81 MG Mexiletine HCl 150 mg TID GT 10/08/24 22:00 10/13/24 05:42 150 MG Acetaminophen 500 mg Q6HP PRN PO 10/08/24 22:30 10/09/24 21:26 500 MG Enteral Nutritional Formula 1,000 ml 55ML/HR GT 10/09/24 18:45 10/12/24 21:34 1,000 ML Esmolol HCl 250 ml @ 0 mls/hr Q0M IV 10/10/24 07:45 Phenylephrine HCl 80 mg/Sodium Chloride 250 ml @ 7.5 mls/hr Q24H IV 10/10/24 09:30 10/13/24 09:06 21.563 MLS/HR Ertapenem 1 gm/ Sodium Chloride 50 ml @ 100 mls/hr DAILY IV 10/10/24 20:00 10/13/24 09:05 100 MLS/HR Furosemide 20 mg BIDD IV 10/12/24 18:00 10/13/24 05:11 20 MG Heparin Sodium/ Dextrose 250 ml @ 13 mls/hr [id number] IV 10/13/24 00:30 10/13/24 00:44 13 MLS/HR laboratory and microbiology Laboratory Tests 10/13/24 02:15 Test 10/13/24 02:15 Range/Units Serum Glucose 109 H 74-106 mg/dL Assessment/Plan s/p cardiac arrest VT CPR <5 min elevated troponin acute resp failure atelectases pt seen and examined on the ICU events off sedation on mechanical ventilation blood cultures neg-ve management plan diana;y sedation holidays ok to use precedex when more awake proceed to weaning PS 7/5 cont abx monitor cx monitor labs renal function daily abg and CXR dvt proph/on heparin drip plan defib placement ?on tuesday crit care time 35 min Dietary Evaluation Review Comments: 1) TF Jevity 1.2Cal @ 55 ml/hr. x 24hr along with Pro-stat 1 pk daily. Start @ 20ml/hr, increase 10ml/hr Q4H until goal is reached. TF @ goal volume provides 1684 kcal (100% energy needs), 88 gm protein (100% protein needs), 1065 ml free water. 2) Water flush 100ml Q4H if allowed, adjust PRN 3) Advance to cardiac diet as medically feasible 4) Monitor NPO status, lab values, wt trend, I/O Expected Outcomes/Goals: To meet >75% estimated needs within 7 days Lab values to improve Fu 2-3 days Plan discussed with: Patient BELLO ROTHMAN MD Oct 13, 2024 12:31
[2024-10-13 13:19] LABS: INR 1.19 (0.9-1.15); Prothrombin Time 12.4 sec (9.3-11.8)
--- NOTE | 2024-10-13 13:42 | DVHPN2 ---
Progress Note Date Seen: Oct 13, 2024 Has the PT tested + for MRSA If YES, has PT been informed?: No Medical Necessity Reason Pt with a Central, PICC or Fol: Yes Subjective Review of Systems: Not Done (patient is intubated and sedated ) Objective vital signs Vital Sign Date Time Temp Pulse Resp B/P (MAP) Pulse Ox O2 Delivery O2 Flow Rate FiO2 10/13/24 12:30 98.8 76 18 101/60 (74) 100 209.8 10/13/24 12:10 30 10/13/24 12:00 Mechanical Ventilator+ Total Intake and Output 10/12/24 10/12/24 10/13/24 15:00 23:00 07:00 Intake Total 424.000 ml 779.251 ml 574.504 ml Output Total 1150 ml 450 ml Balance 424.000 ml -370.749 ml 124.504 ml medications Current Medications Medications Dose Ordered Sig/Liliam Route Start Time Stop Time Status Last Admin Dose Admin Midazolam HCl 50 ml @ 1 mls/hr Q24H IV 10/07/24 04:45 10/12/24 21:31 5 MLS/HR Fentanyl Citrate 250 ml @ 2.5 mls/hr Q24H IV 10/07/24 06:15 10/12/24 21:32 15 MLS/HR Ondansetron HCl 4 mg Q4HP PRN IV 10/07/24 10:00 Nitroglycerin 0.4 mg Q5MINP PRN SL 10/07/24 10:00 Morphine Sulfate 2 mg Q30M PRN IV 10/07/24 10:00 Pantoprazole Sodium 40 mg DAILY IV 10/07/24 10:00 10/13/24 09:05 40 MG Norepinephrine Bitartrate 250 ml @ 3.75 mls/hr Q24H IV 10/07/24 12:15 10/10/24 06:50 18.75 MLS/HR Aspirin 81 mg DAILY PO 10/08/24 10:00 10/13/24 09:06 81 MG Mexiletine HCl 150 mg TID GT 10/08/24 22:00 10/13/24 12:37 150 MG Acetaminophen 500 mg Q6HP PRN PO 10/08/24 22:30 10/09/24 21:26 500 MG Enteral Nutritional Formula 1,000 ml 55ML/HR GT 10/09/24 18:45 10/12/24 21:34 1,000 ML Esmolol HCl 250 ml @ 0 mls/hr Q0M IV 10/10/24 07:45 Phenylephrine HCl 80 mg/Sodium Chloride 250 ml @ 7.5 mls/hr Q24H IV 10/10/24 09:30 10/13/24 09:06 21.563 MLS/HR Ertapenem 1 gm/ Sodium Chloride 50 ml @ 100 mls/hr DAILY IV 10/10/24 20:00 10/13/24 09:05 100 MLS/HR Furosemide 20 mg BIDD IV 10/12/24 18:00 10/13/24 05:11 20 MG Heparin Sodium/ Dextrose 250 ml @ 13 mls/hr [id number] IV 10/13/24 00:30 10/13/24 00:44 13 MLS/HR Examination: GENERAL:Normal, LUNGS:Abnormal (diminished on vent ), CVS:Abnormal (irregular), ABDOMEN:Normal, SKIN:Normal, NEURO:Normal laboratory and microbiology Laboratory Tests 10/13/24 02:15 Test 10/13/24 02:15 Range/Units Serum Glucose 109 H 74-106 mg/dL Microbiology Date/Time Source Procedure Growth Status 10/09/24 08:49 Blood Blood Culture - Preliminary NO GROWTH AFTER 72 HOURS OF INCUBATION. Resulted 10/07/24 16:50 Nose MRSA Screen - Final Complete 10/07/24 04:26 Sputum Gram Stain - Final Complete 10/07/24 04:26 Respiratory Culture - Final Enterobacter cloacae Complete Labs and/or images reviewed: Labs reviewed by me, Image(s) reviewed by me Problem List/Assessment/Plan Problem List/Assessment/Plan The patient initially presented on 10/07/2024 due to syncope, resulting in cardiac arrest with ventricular fibrillation. She was found collapsed in the kitchen by family members who initiated CPR before EMS arrival. Upon EMS arrival, the patient was found to be in ventricular fibrillation and was shocked. She was subsequently intubated, sedated, and placed on an amio drip upon arrival at the ED. The patient was admitted to the ICU for close observation and required two shocks for ventricular fibrillation. She is now planned for AICD placement. The patient has received clearance from infectious disease for the AICD placement, which was requested by cardiology due to initial leukocytosis that is now improving. The patient is currently being treated for paroxysmal atrial fibrillation and has been diagnosed with acute and chronic systolic heart failure with severely reduced left ventricular function. She is experiencing acute hypoxic respiratory failure and remains intubated and sedated. Additional complications include transaminitis with elevated liver function, likely secondary to amiodarone use, which has been discontinued by Cardiology. A sputum culture came back positive for Enterobacter, for which the patient is being treated. A neurologist has evaluated the patient. Today no changes to patient status Cardiac Arrest with Ventricular Fibrillation Assessment: Patient experienced cardiac arrest with ventricular fibrillation on 10/07/24, witnessed by family members who initiated CPR. EMS found the patient in ventricular fibrillation and administered shock therapy. Rhythm strip analysis confirmed ventricular fibrillation. Patient required intubation and sedation upon ED arrival. Currently admitted to ICU for close observation. Cardiology has been consulted and plans for AICD placement, likely on Tuesday. Infectious disease clearance has been obtained for the AICD procedure, addressing initial concerns of leukocytosis which is now improving. Status post-cardiac arrest. Plan: - Continue ICU monitoring - Proceed with AICD placement as planned (likely Tuesday), cleared by infectious disease. - Maintain intubation and sedation until AICD placement - Continue Heparin drip for paroxysmal atrial fibrillation - Continue Mexitil - DC amiodarone due to transaminitis Coronary Artery Disease Assessment: Patient with history of 2-vessel CABG (Coronary Artery Bypass Grafting). Surgical intervention previously performed to address significant coronary artery stenosis. Plan: - Continue medical management - Follow up with cardiology for ongoing coronary artery disease management Acute and Chronic Systolic Heart Failure Assessment: Patient has acute and chronic systolic heart failure with severely reduced left ventricular function. Ejection fraction is estimated at 15-20%. RICHIE findings are consistent with severely reduced left ventricular ejection fraction, previously implanted mitral ring, up to moderate mitral stenosis and regurgitation, and moderate aortic insufficiency. Plan: - Continue cardiology consultation - continue IV diuretics (IV Lasix) - Monitor renal function Acute Hypoxic Respiratory Failure Assessment: Patient is currently intubated due to acute hypoxic respiratory failure. Dr. Downey from pulmonology is managing this aspect of care. Plan: - Maintain current intubation as per pulmonology recommendation - Proceed with CPAP trials when deemed appropriate by pulmonology Transaminitis Assessment: Patient has elevated liver function tests, likely secondary to amiodarone use. Cardiology has discontinued amiodarone in response. Plan: - Monitor liver function tests - Amiodarone discontinued as per cardiology Enterobacter PNA Assessment: Sputum culture positive for Enterobacter. Plan: - Continue treatment with Eratapenem to complete 10 days regimen -Infectious disease consult Hemodynamic Support Assessment: Patient requires vasopressor support for hemodynamic stability. Plan: - Continue vasopressin - Continue neosynephrine Paroxysmal a fib -DC amiodarone -continue with heparin gtt Plan discussed with: Patient, Other (RN) Dietary Evaluation Review Comments: 1) TF Jevity 1.2Cal @ 55 ml/hr. x 24hr along with Pro-stat 1 pk daily. Start @ 20ml/hr, increase 10ml/hr Q4H until goal is reached. TF @ goal volume provides 1684 kcal (100% energy needs), 88 gm protein (100% protein needs), 1065 ml free water. 2) Water flush 100ml Q4H if allowed, adjust PRN 3) Advance to cardiac diet as medically feasible 4) Monitor NPO status, lab values, wt trend, I/O Expected Outcomes/Goals: To meet >75% estimated needs within 7 days Lab values to improve Fu 2-3 days Date of Service: Oct 13, 2024 Billing Provider: CARLOS WHITAKER MD Common Visit Codes: 02591-UUTWCTS INP/OBS CARE (MOD) BRAEDEN UNDERWOOD BR[employer]GE TENDER Oct 13, 2024 13:42
[2024-10-13 13:46] LABS: Partial Thromboplastin Time 80.9 SEC (24.5-34.5)
[2024-10-13 20:42] LABS: INR 1.18 (0.9-1.15); Partial Thromboplastin Time 56.4 SEC (24.5-34.5); Prothrombin Time 12.3 sec (9.3-11.8)
[2024-10-14] VITALS (110 sets, daily range): BP systolic 76–129; BP diastolic 35–107; PULSE 68–138; RESP 14–27; TEMP 73.2–99.7; O2SAT 99–100
[2024-10-14 03:44] LABS: Hematocrit 23.3 % (36.0-46.0); Hemoglobin 7.8 g/dL (12.2-16.2); Mean Corpuscular Hemoglobin 31.3 pg (28.0-32.0); Mean Corpuscular Volume 93.3 fL (80.0-100.0)
[2024-10-14 03:57] LABS: Anion Gap 8 (5-15); BUN/Creatinine Ratio 11.8 (10.0-20.0); Blood Urea Nitrogen 9 mg/dL (9-23); Carbon Dioxide 26 mmol/L (20-31); Chloride 101 mmol/L (98-107); Potassium 3.9 mmol/L (3.5-5.1)
[2024-10-14 03:58] LABS: Bilirubin, Total 0.8 mg/dL (0.2-1.0)
[2024-10-14 04:01] LABS: INR 1.17 (0.9-1.15); Partial Thromboplastin Time 60.1 SEC (24.5-34.5); Prothrombin Time 12.2 sec (9.3-11.8)
[2024-10-14 04:34] LABS: Alanine Aminotransferase 74 U/L (7-40); Albumin 2.6 g/dL (3.2-4.8); Alkaline Phosphatase 124 U/L (46-116); Calcium 7.8 mg/dL (8.7-10.4); Glucose 71 mg/dL (74-106); Sodium 135 mmol/L (136-145); Total Protein 5.1 g/dL (5.7-8.2)
[2024-10-14 06:40] LABS: Anisocytosis Moderate; Polychromasia Slight; Total Cells Counted 100.0 (100)
--- NOTE | 2024-10-14 06:57 | DVH ---
CHEST RADIOGRAPH Indication: INTUBATED Technique: Single frontal view of the chest was obtained COMPARISON: XY CHEST PORTABLE on DOS: 10/13/24, XY CHEST PORTABLE on DOS: 10/12/24, XY CHEST XRAY 1 VIE W on DOS: 10/11/24, XY CHEST PORTABLE on DOS: 10/10/24, XY CHEST PORTABLE on DOS: 10/09/24, XY CHEST POR TABLE on DOS: 10/12/24 FINDINGS: Lines and Tubes: Lines and tubes unchanged. Lungs: Stable appearing small left pleural effusion. No evidence of focal consolidation. No pneumothorax. Cardiomediastinal contours: Cardiomegaly. Bones: Unremarkable IMPRESSION: Cardiomegaly and small left pleural effusion. Lines and tubes unchanged.
[2024-10-14 07:05] LABS: Base Excess 1.7 mmol/L (-2.0-3.0)
[2024-10-14] MEDS: POTASSIUM CHL 20MEQ/100ML 100 ML IV SCH (07:55)
--- NOTE | 2024-10-14 08:06 | DVHPN2 ---
Progress Note - Dictate Date Seen: Oct 14, 2024 Has the PT tested + for MRSA If YES, has PT been informed?: No Medical Necessity Reason Pt with a Central, PICC or Fol: Yes vital signs Vital Sign Date Time Temp Pulse Resp B/P (MAP) Pulse Ox O2 Delivery O2 Flow Rate FiO2 10/14/24 07:00 99.3 76 18 102/60 (74) 100 210.7 10/14/24 06:00 Mechanical Ventilator+ 30 30 Total Intake and Output 10/13/24 10/13/24 10/14/24 15:00 23:00 07:00 Intake Total 325.004 ml 423.504 ml 280.125 ml Output Total 700 ml 1025 ml Balance 325.004 ml -276.496 ml -744.875 ml medications Current Medications Medications Dose Ordered Sig/Liliam Route Start Time Stop Time Status Last Admin Dose Admin Midazolam HCl 50 ml @ 1 mls/hr Q24H IV 10/07/24 04:45 10/13/24 18:41 4 MLS/HR Fentanyl Citrate 250 ml @ 2.5 mls/hr Q24H IV 10/07/24 06:15 10/14/24 01:46 12.5 MLS/HR Ondansetron HCl 4 mg Q4HP PRN IV 10/07/24 10:00 Nitroglycerin 0.4 mg Q5MINP PRN SL 10/07/24 10:00 Morphine Sulfate 2 mg Q30M PRN IV 10/07/24 10:00 Pantoprazole Sodium 40 mg DAILY IV 10/07/24 10:00 10/13/24 09:05 40 MG Norepinephrine Bitartrate 250 ml @ 3.75 mls/hr Q24H IV 10/07/24 12:15 10/10/24 06:50 18.75 MLS/HR Aspirin 81 mg DAILY PO 10/08/24 10:00 10/13/24 09:06 81 MG Mexiletine HCl 150 mg TID GT 10/08/24 22:00 10/14/24 05:51 150 MG Acetaminophen 500 mg Q6HP PRN PO 10/08/24 22:30 10/09/24 21:26 500 MG Enteral Nutritional Formula 1,000 ml 55ML/HR GT 10/09/24 18:45 10/12/24 21:34 1,000 ML Esmolol HCl 250 ml @ 0 mls/hr Q0M IV 10/10/24 07:45 Phenylephrine HCl 80 mg/Sodium Chloride 250 ml @ 7.5 mls/hr Q24H IV 10/10/24 09:30 10/13/24 21:03 21.563 MLS/HR Ertapenem 1 gm/ Sodium Chloride 50 ml @ 100 mls/hr DAILY IV 10/10/24 20:00 10/13/24 09:05 100 MLS/HR Furosemide 20 mg BIDD IV 10/12/24 18:00 10/14/24 05:50 20 MG Heparin Sodium/ Dextrose 250 ml @ 11 mls/hr [id number] IV 10/13/24 14:15 10/13/24 23:22 11 MLS/HR Potassium Chloride 100 ml @ 50 mls/hr Q2H IV 10/14/24 07:15 10/14/24 11:14 10/14/24 07:55 50 MLS/HR laboratory and microbiology Laboratory Tests 10/14/24 03:10 Test 10/14/24 03:10 Range/Units Serum Glucose 71 L 74-106 mg/dL Assessment/Plan Still intubated and on Stone drip. Monitor reveals a-fib with MVR. Patient is a 54-year-old female who was brought to the hospital for witnessed syncope. She is intubated and is being managed in ICU. Information was obtained by reviewing the chart and communicating with patient's son (over the phone). Family recognized witnessed syncope and started CPR and called EMS. Reportedly, EMS found the patient in ventricular fibrillation and shocked the patient and brought the patient to the hospital. Patient was intubated in emergency room and transferred to ICU. Patient was on amiodarone drip. Later the patient had ventricular tachycardia (Systane). High sensitive troponin had been minimally/flatly elevated. Presentation was not in favor of acute coronary syndrome. Cardiology is involved for cardiac aspects of care. Intubated. Noncommunicative. No JVD. Mucosa pale. No carotid bruit. Scattered rhonchi in the lungs is heard. Cardiac: Regular, no thrill. Systolic murmur 2/6 in apex is heard. Abdomen is soft. No edema in extremities. Past medical history as per son: Congenital heart disease, status post bypass WBC: 14.5 - 11.9 - 18.8 - 20.0 - 21.2 - 14.3 - 10.3 - 8.9 - 9.2 Hemoglobin: 10.1 - 9.6 - 9.2 - 8.8 - 8.7 - 8.0 - 8.3 - 8.5 - 7.8 Creatinine: 0.95 - 0.93 - 0.87 - 0.83 - 0.83 - 0.76 - 0.68 - 0.72 - 0.79 - 0.76 Potassium: 3.4 - 4.0 - 4.6 - 3.5 - 3.3 - 4.1 - 3.7 - 3.2 - 3.7 - 4.0 - 3.2 - 3.4 - 3.9 Magnesium: 2.0 - 1.6 - 2.0 - 3.0 - 1.5 - 1.9 - 2.1 - 1.8 - 2.0 - 1.9 Troponin (high sensitive): 141 - 138 - 117 BNP: 457.16 AST/ALT: 32/11 - 19/13 - 538/168 - 293/152 - 131/130 - 78/94 - 68/74 UDS: non-revealing Chest x-ray revealed: Lines and Tubes: Endotracheal tube tip projects approximately 1.4 cm above the level of the tyler. Enteric catheter courses below the lateral of the diaphragm and terminates beyond the inferior margin of the image. Right internal jugular central venous catheter terminates within the distal superior vena cava. Lungs: Moderate diffuse increased prominence of the pulmonary vasculature without evidence of focal consolidation. Pleura: No effusion. No pneumothorax. Cardiomediastinal contours: Cardiomegaly. Bones: Unremarkable IMPRESSION: 1. Cardiomegaly and diffuse increased prominence of the pulmonary vasculature. 2. Lines and tubes as above. Repeat chest x-ray revealed: IMPRESSION: 1. Endotracheal tube tip 1.6 cm above the tyler; consider 2 cm retraction 2. Mild pulmonary vascular congestion. Moderate cardiomegaly. Repeat chest xry revealed: IMPRESSION: Endotracheal tube tip 1.6 cm above the tyler; consider 2 cm retraction Mild pulmonary vascular congestion. Moderate cardiomegaly. Repeat chest xry revealed: IMPRESSION: 1. Stable cardiomegaly, small left pleural effusion and mild diffuse increased prominence of the pulmonary vasculature. 2. Repositioned endotracheal tube as above. Remaining lines and tubes unchanged. Repeat chest xry revealed: IMPRESSION: 1. Cardiomegaly, stable diffuse increased prominence of the pulmonary vasculature and small bilateral pleural effusions. 2. Slight interval advancement of endotracheal tube as above. Remaining lines and tubes unchanged. Repeat chest xry revealed: IMPRESSION: 1. Slight interval decrease in diffuse increased prominence of the pulmonary vasculature. 2. Stable cardiomegaly and small left pleural effusion. 3. Lines and tubes unchanged. Repeat chest xry revealed: IMPRESSION: 1. Cardiomegaly and small left pleural effusion. 2. Lines and tubes unchanged. Repeat chest xry revealed: IMPRESSION: Stable lines and tubes. Similar lung aeration. Repeat chest xry revealed: IMPRESSION: Cardiomegaly and small left pleural effusion. Lines and tubes unchanged. Left upper ext arterial duplex: IMPRESSION: No hemodynamically significant stenosis based on peak systolic velocity criteria. Left lower ext arterial duplex: IMPRESSION: There is no evidence for peripheral vascular insufficiency in the left lower extremity. No significant focal stenosis is identified. Liver Ultrasound revealed: Hepatic steatosis. Hepatomegaly. Cholelithiasis. CT of the head revealed: IMPRESSION: No acute intracranial abnormality. Repeat CT of head revealed: IMPRESSION: No acute intracranial abnormality. Echocardiogram reported: lvef 15-20% dilated LV severe global dysfunction mild RV dysfunction biatrial enlargement mild moderate MAC, moderate mitral regurg mild to moderate aortic regug (images of echo reviewed and questioned presence of mitral ring and also some component (moderate of Mitral stenosis) EKG revealed sinus rhythm Telemetry revealed occasions of atrial fibrillation. There was occasional sustained ventricular tachycardia. EMS tele monitor revealed ventricular fibrillation for which the patient was shocked. Has remained sinus rhythm. Later with A-fib with MVR LHC revealed: Patent RICHMOND to LAD; Patent SVG to obtuse marginal; LVEF of 20% with increased EDP; Proximal disease in LAD/LCX RICHIE was performed: Consistent with severely reduced LVEF. Consistent with previously implanted Mitral ring, Up to moderate Mitral stenosis/Mitral Regurgitation and also Moderate Aortic insufficiency. Patient is a 54-year-old female who presented with witnessed syncope. She was found to have ventricular fibrillation for which was shocked. Later had repeated episode of sustained ventricular tachycardia. Patient has been kept in ICU. Does have baseline history of coronary artery disease for which has had bypass surgery. Left heart catheterization was performed which revealed patent RICHMOND and patent SVG. ACS is not considered at this point. It is of note that the patient's echocardiogram reveals significantly use systolic function. Valvular heart disease is considered. Findings are in favor of previously implanted mitral ring. By reviewing the echo images, component of up to moderate mitral stenosis could not be ruled out. LHC was performed that ruled out any active specific ischemia as an etiology for presentation. Is off Amiodarone for abnormal LFT. Being followed by Nephrology / Pulmonary / Neurology / GI ID. Tele has remained sinus rhythm. Syncope V-fib s/p shock Sustained V-tach Paroxysmal A-fib VHD, s/p Mitral ring Systolic heart failure Abnormal LFT Cardiac suggestion for management: Manage in ICU Follow up electrolytes and kidney function test and correct abnormalities Full anticoagulation (a-fib with high CHADS-Vasc score). On Heparin drip for now Off Amio drip (worsened LFT) (personally discussed with EP: Dr Armstrong who advised to stop / not to restart Amiodarone) On Mexiletine If need for pressure support: use Phenyl Ephrine May consider Esmolol for PVC/Vtach EP Following ICD implantation as per EP Pulmonary Follow up Provide previous medical records from reaching out to previous hospitals in [facility]... Further evaluation and management depends on the above and clinical course. A total of 75 minutes was spent reviewing the patient record, examining the patient, making a diagnostic and therapeutic plan, discussing this plan with medical personnel, following up on diagnostic studies and following the patient for clinical stability excluding any and all procedures. At least 50% of this time was spent in direct, [id number] contact. Thank you for allowing me to participate in this patient's care. Further recommendations will depend on patient's clinical course. Please do not hesitate to contact me if you have any questions or concerns. This medical document was created using electronic medical record system with [employer] computerized dictation system. Although this document has been carefully reviewed, there may still be some phonetic and typographical errors. These areas are purely typographical due to the imperfection of the software programs, and do not reflect any compromise in the patient's medical care. Dietary Evaluation Review Comments: 1) TF Jevity 1.2Cal @ 55 ml/hr. x 24hr along with Pro-stat 1 pk daily. Start @ 20ml/hr, increase 10ml/hr Q4H until goal is reached. TF @ goal volume provides 1684 kcal (100% energy needs), 88 gm protein (100% protein needs), 1065 ml free water. 2) Water flush 100ml Q4H if allowed, adjust PRN 3) Advance to cardiac diet as medically feasible 4) Monitor NPO status, lab values, wt trend, I/O Expected Outcomes/Goals: To meet >75% estimated needs within 7 days Lab values to improve Fu 2-3 days Plan discussed with: Other (nurse) CORDELL VERA MD Oct 14, 2024 08:06
[2024-10-14] MEDS: MAGNESIUM SULFATE 1GM/100ML 100 ML IV SCH (09:39)
[2024-10-14] MEDS ORDERED: ESMOLOL HCL 10MG/ML 250 ML IV SCH ×2 (09:45→10:45)
[2024-10-14] MEDS: DIGOXIN (250MCG/ML) 2 ML AMPULE ONE (09:53)
[2024-10-14 09:57] LABS: INR 1.19 (0.9-1.15); Partial Thromboplastin Time 48.3 SEC (24.5-34.5); Prothrombin Time 12.4 sec (9.3-11.8)
[2024-10-14] MEDS: DIGOXIN (250MCG/ML) 2 ML AMPULE IV ONE ×2 (09:58→21:54)
--- NOTE | 2024-10-14 12:20 | DVHPN2 ---
Progress Note Date Seen: Oct 14, 2024 Has the PT tested + for MRSA If YES, has PT been informed?: No Medical Necessity Reason Pt with a Central, PICC or Fol: Yes Subjective Review of Systems: GI:Normal, NEURO:Normal (unable to obtain ) Objective vital signs Vital Sign Date Time Temp Pulse Resp B/P (MAP) Pulse Ox O2 Delivery O2 Flow Rate FiO2 10/14/24 11:43 81 22 112/51 (71) 100 30 10/14/24 11:15 99.7 211.5 10/14/24 10:00 Mechanical Ventilator+ Total Intake and Output 10/13/24 10/13/24 10/14/24 15:00 23:00 07:00 Intake Total 325.004 ml 423.504 ml 280.125 ml Output Total 700 ml 1025 ml Balance 325.004 ml -276.496 ml -744.875 ml medications Current Medications Medications Dose Ordered Sig/Liliam Route Start Time Stop Time Status Last Admin Dose Admin Midazolam HCl 50 ml @ 1 mls/hr Q24H IV 10/07/24 04:45 10/13/24 18:41 4 MLS/HR Fentanyl Citrate 250 ml @ 2.5 mls/hr Q24H IV 10/07/24 06:15 10/14/24 01:46 12.5 MLS/HR Ondansetron HCl 4 mg Q4HP PRN IV 10/07/24 10:00 Nitroglycerin 0.4 mg Q5MINP PRN SL 10/07/24 10:00 Morphine Sulfate 2 mg Q30M PRN IV 10/07/24 10:00 Pantoprazole Sodium 40 mg DAILY IV 10/07/24 10:00 10/14/24 10:31 40 MG Aspirin 81 mg DAILY PO 10/08/24 10:00 10/13/24 09:06 81 MG Mexiletine HCl 150 mg TID GT 10/08/24 22:00 10/14/24 05:51 150 MG Acetaminophen 500 mg Q6HP PRN PO 10/08/24 22:30 10/09/24 21:26 500 MG Enteral Nutritional Formula 1,000 ml 55ML/HR GT 10/09/24 18:45 10/12/24 21:34 1,000 ML Phenylephrine HCl 80 mg/Sodium Chloride 250 ml @ 7.5 mls/hr Q24H IV 10/10/24 09:30 10/13/24 21:03 21.563 MLS/HR Ertapenem 1 gm/ Sodium Chloride 50 ml @ 100 mls/hr DAILY IV 10/10/24 20:00 10/14/24 10:34 100 MLS/HR Furosemide 20 mg BIDD IV 10/12/24 18:00 10/14/24 05:50 20 MG Heparin Sodium/ Dextrose 250 ml @ 11 mls/hr [id number] IV 10/13/24 14:15 10/13/24 23:22 11 MLS/HR Digoxin 125 mcg Q6H IV 10/14/24 16:00 Esmolol HCl 250 ml @ 0 mls/hr Q0M IV 10/14/24 10:45 Examination: GENERAL:Normal, LUNGS:Abnormal (diminished on ventillator ), ABDOMEN:Normal, SKIN:Normal, NEURO:Normal laboratory and microbiology Laboratory Tests 10/14/24 03:10 Test 10/14/24 03:10 Range/Units Serum Glucose 71 L 74-106 mg/dL Microbiology Date/Time Source Procedure Growth Status 10/13/24 11:00 Sputum Endotracheal Wash Gram Stain - Final Resulted 10/13/24 11:00 Sputum Endotracheal Wash Respiratory Culture - Preliminary Resulted 10/09/24 08:49 Blood Blood Culture - Final NO GROWTH AFTER 5 DAYS OF INCUBATION. Complete 10/07/24 16:50 Nose MRSA Screen - Final Complete Labs and/or images reviewed: Labs reviewed by me, Image(s) reviewed by me Problem List/Assessment/Plan Problem List/Assessment/Plan The patient initially presented on 10/07/2024 due to syncope, resulting in cardiac arrest with ventricular fibrillation. She was found collapsed in the kitchen by family members who initiated CPR before EMS arrival. Upon EMS arrival, the patient was found to be in ventricular fibrillation and was shocked. She was subsequently intubated, sedated, and placed on an amio drip upon arrival at the ED. The patient was admitted to the ICU for close observation and required two shocks for ventricular fibrillation. She is now planned for AICD placement. The patient has received clearance from infectious disease for the AICD placement, which was requested by cardiology due to initial leukocytosis that is now improving. The patient is currently being treated for paroxysmal atrial fibrillation and has been diagnosed with acute and chronic systolic heart failure with severely reduced left ventricular function. She is experiencing acute hypoxic respiratory failure and remains intubated and sedated. Additional complications include transaminitis with elevated liver function, likely secondary to amiodarone use, which has been discontinued by Cardiology. A sputum culture came back positive for Enterobacter, for which the patient is being treated. A neurologist has evaluated the patient. 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 Patient was placed on esmolol gtt and was given digoxin push doses for AFib. Cardiac Arrest with Ventricular Fibrillation Assessment: Patient experienced cardiac arrest with ventricular fibrillation on 10/07/24, witnessed by family members who initiated CPR. EMS found the patient in ventricular fibrillation and administered shock therapy. Rhythm strip analysis confirmed ventricular fibrillation. Patient required intubation and sedation upon ED arrival. Currently admitted to ICU for close observation. Cardiology has been consulted and plans for AICD placement, likely on Tuesday. Infectious disease clearance has been obtained for the AICD procedure, addressing initial concerns of leukocytosis which is now improving. Status post-cardiac arrest. Plan: - Continue ICU monitoring - Proceed with AICD placement as planned (likely Tuesday), cleared by infectious disease. - Maintain intubation and sedation until AICD placement - Continue Heparin drip for paroxysmal atrial fibrillation - Continue Mexitil - DC amiodarone due to transaminitis - added esmolol drip per Cardiology for AFib and added push doses of digoxin Coronary Artery Disease Assessment: Patient with history of 2-vessel CABG (Coronary Artery Bypass Grafting). Surgical intervention previously performed to address significant coronary artery stenosis. Plan: - Continue medical management - Follow up with cardiology for ongoing coronary artery disease management Acute and Chronic Systolic Heart Failure Assessment: Patient has acute and chronic systolic heart failure with severely reduced left ventricular function. Ejection fraction is estimated at 15-20%. RICHIE findings are consistent with severely reduced left ventricular ejection fraction, previously implanted mitral ring, up to moderate mitral stenosis and regurgitation, and moderate aortic insufficiency. Plan: - Continue cardiology consultation - continue IV diuretics (IV Lasix) - Monitor renal function Acute Hypoxic Respiratory Failure Assessment: Patient is currently intubated due to acute hypoxic respiratory failure. Dr. Downey from pulmonology is managing this aspect of care. Plan: - Maintain current intubation as per pulmonology recommendation - Proceed with CPAP trials when deemed appropriate by pulmonology Transaminitis Assessment: Patient has elevated liver function tests, likely secondary to amiodarone use. Cardiology has discontinued amiodarone in response. Plan: - Monitor liver function tests - Amiodarone discontinued as per cardiology Enterobacter PNA Assessment: Sputum culture positive for Enterobacter. Plan: - Continue treatment with Eratapenem to complete 10 days regimen -Infectious disease consult Hemodynamic Support Assessment: Patient requires vasopressor support for hemodynamic stability. Plan: - Continue vasopressin - Continue neosynephrine Paroxysmal a fib -DC amiodarone -continue with heparin gtt Plan discussed with: Patient Dietary Evaluation Review Comments: 1) TF Jevity 1.2Cal @ 55 ml/hr. x 24hr along with Pro-stat 1 pk daily. Start @ 20ml/hr, increase 10ml/hr Q4H until goal is reached. TF @ goal volume provides 1684 kcal (100% energy needs), 88 gm protein (100% protein needs), 1065 ml free water. 2) Water flush 100ml Q4H if allowed, adjust PRN 3) Advance to cardiac diet as medically feasible 4) Monitor NPO status, lab values, wt trend, I/O Expected Outcomes/Goals: To meet >75% estimated needs within 7 days Lab values to improve Fu 2-3 days Date of Service: Oct 14, 2024 Billing Provider: CARLOS WHITAKER MD Common Visit Codes: [id number] INP/OBS CARE (MOD) BRAEDEN UNDER[employer]OD [employer]IC Oct 14, 2024 12:20
--- NOTE | 2024-10-14 12:43 | CONS ---
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
[2024-10-14] MEDS: HEPARIN DRIP/D5W 100UNITS/ML 250 ML IV SCH ×2 (12:45→20:15)
--- NOTE | 2024-10-14 14:10 | DVHPN2 ---
Progress Note - Dictate Date Seen: Oct 14, 2024 Has the PT tested + for MRSA If YES, has PT been informed?: No Medical Necessity Reason Pt with a Central, PICC or Fol: Yes Subjective Ms. Smith is a 54 years old female who was brought to the [facility] on 10/07/2024 with a chief complaint of cardiopulmonary arrest/status post CPR. I have seen and examined the patient, I have discussed with her nurse, she is intubated, sedated, responsive to light painful stimuli. She had AFib with RVR earlier with less sedation Fentanyl 100 mcg/hour, Versed 4 mg/hour, Neosyn 140 mcg/min Blood culture, 10/09/2024: UDS, 10/07/2024: Negative Urinalysis, 10/07/2024: Leukocyte esterase: Negative WBC/HB/PLT/MCV, 10/09/2024: 20/8.8/219/94.6, 10/10/2024: 21.2/8.7/232/92.2 PT/INR/PTT, 10/08/2024: 12.4/1.19/72.7, 10/09/2024: 13.1/1.26/68.9, 10/10/2024: 14.4/2/1.38/35.3 CMP, 10/08/2024: Unremarkable Troponin one high sensitivity, 10/07/2024: 141, 138, 117 TBI/AST/ALT/AP, 10/10/2024: 0.5/538/168/144, 10/11/2024: 0.6/293/199/152, 10/14/2024: 0.8/68/74/124 TG/HDL/LDL/HDL, 10/07/24: 71/66/31/21 Echocardiogram, 10/07/2024: lvef 15-20% dilated LV severe global dysfunction mild RV dysfunction biatrial enlargement mild moderate MAC, moderate mitral regurg mild to moderate aortic regug RICHIE, 10/08/2024: 1. Left ventricle: Dilated LV was seen. LVEF was 25%. There was diffuse hypokinesis of left ventricle. 2. Right ventricle: RV was mildly dilated. 3. Left atrium: LA enlarged 4. Right atrium: RA was enlarged. 5. Mitral valve: Mitral was thickened with reduced opening. Moderate Mitral regurgitation was seen. Planinomentry of valve (TTE images also obtained) revealed MVA of 2.1 cm. Mean pressure gradient (obtained from limited TTE images) was 5. Images are consistent with previously implanted Ring in Mitral position. Consistent with up to Moderate Mitral stenosis. . There was no vegetation 6. Left atrial appendage: No evidence of thrombus. 7. Aortic valve: Trileaflet valve. No stenosis. Up to moderate Aortic Insufficiency was seen. There was no vegetation 8. Pulmonic valve: Trivial pulmonic insufficiency. No significant stenosis. 9. Tricuspid valve: Mild tricuspid regurgitation. There was no vegetation 10. Interatrial septum: Negative color flow for right to left shunt was observed. Bubble study was performed: negative for shunt 11. Pericardium: No significant effusion. 12. Thoracic aorta: No significant plaquing. Chest x-ray, 10/27/2024: 1. Cardiomegaly, stable diffuse increased prominence of the pulmonary vasculature and small bilateral pleural effusions. 2. Slight interval advancement of endotracheal tube as above. Remaining lines and tubes unchanged. CT head, 10/07/2024: No acute intracranial abnormality General: the patient is well developed and nourished. No acute distress. Intubated CT head, 10/07/2024: No acute intracranial abnormality. CT head, 10/11/2024: No acute intracranial abnormality vital signs Vital Sign Date Time Temp Pulse Resp B/P (MAP) Pulse Ox O2 Delivery O2 Flow Rate FiO2 10/14/24 13:53 99.0 69 19 120/52 99.0 10/14/24 11:43 100 30 10/14/24 10:00 Mechanical Ventilator+ Total Intake and Output 10/13/24 10/13/24 10/14/24 15:00 23:00 07:00 Intake Total 325.004 ml 423.504 ml 280.125 ml Output Total 700 ml 1025 ml Balance 325.004 ml -276.496 ml -744.875 ml medications Current Medications Medications Dose Ordered Sig/Liliam Route Start Time Stop Time Status Last Admin Dose Admin Midazolam HCl 50 ml @ 1 mls/hr Q24H IV 10/07/24 04:45 10/13/24 18:41 4 MLS/HR Fentanyl Citrate 250 ml @ 2.5 mls/hr Q24H IV 10/07/24 06:15 10/14/24 01:46 12.5 MLS/HR Ondansetron HCl 4 mg Q4HP PRN IV 10/07/24 10:00 Nitroglycerin 0.4 mg Q5MINP PRN SL 10/07/24 10:00 Morphine Sulfate 2 mg Q30M PRN IV 10/07/24 10:00 Pantoprazole Sodium 40 mg DAILY IV 10/07/24 10:00 10/14/24 10:31 40 MG Aspirin 81 mg DAILY PO 10/08/24 10:00 10/13/24 09:06 81 MG Mexiletine HCl 150 mg TID GT 10/08/24 22:00 10/14/24 05:51 150 MG Acetaminophen 500 mg Q6HP PRN PO 10/08/24 22:30 10/09/24 21:26 500 MG Enteral Nutritional Formula 1,000 ml 55ML/HR GT 10/09/24 18:45 10/12/24 21:34 1,000 ML Phenylephrine HCl 80 mg/Sodium Chloride 250 ml @ 7.5 mls/hr Q24H IV 10/10/24 09:30 10/13/24 21:03 21.563 MLS/HR Ertapenem 1 gm/ Sodium Chloride 50 ml @ 100 mls/hr DAILY IV 10/10/24 20:00 10/14/24 10:34 100 MLS/HR Furosemide 20 mg BIDD IV 10/12/24 18:00 10/14/24 05:50 20 MG Digoxin 125 mcg Q6H IV 10/14/24 16:00 Esmolol HCl 250 ml @ 0 mls/hr Q0M IV 10/14/24 10:45 Heparin Sodium/ Dextrose 250 ml @ 13 mls/hr [id number] IV 10/14/24 12:45 objective The patient is well-nourished and well-developed with no distress. The patient is intubated MENTAL STATUS: Subjective CRANIAL NERVES: Pupils are equal, round and reactive.There are corneal reflexes and doll's eyes phenomenon. No signs of facial weakness. There are gagging or coughing reflexes SENSATION: Responses to pain stimuli. MOTOR: Normal tone in the upper and lower extremity. Normal muscle bulk. No fasciculations. No spontaneous movement. REFLEXES: Deep tendon reflexes are symmetrical. No pathological reflexes. CEREBELLAR/COORDINATION: Deferred GAIT/STATION: deferred. laboratory and microbiology Laboratory Tests 10/14/24 03:10 Test 10/14/24 03:10 Range/Units Serum Glucose 71 L 74-106 mg/dL Problem List Cardiopulmonary arrest Status post CPR Metabolic encephalopathy Hypoxic encephalopathy Congestive heart failure Leukocytosis/sepsis Respiratory failure Elevated liver function tests She is waking up Assessment/Plan Monitoring Supportive treatment ICU care Stabilize vitals Respiratory support/vent management Hold off Lipitor (elevated liver function tests), LDL (31) (home medications included Lipitor 40 mg daily) DVT prophylaxis GI prophylaxis Cardiology on case Pulmonology on case Nephrology on case Consult GI Re: Elevated liver function tests Need more history This medical document was created using an electronic medical record system with [employer] dictation system. Although this document has been carefully reviewed, there may still be some phonetic and typographical errors. These areas are purely typographical due to imperfections of the software programs, and do not reflect any compromise in the patient's medical care. Prognosis guarded Dietary Evaluation Review Comments: 1) TF Jevity 1.2Cal @ 55 ml/hr. x 24hr along with Pro-stat 1 pk daily. Start @ 20ml/hr, increase 10ml/hr Q4H until goal is reached. TF @ goal volume provides 1684 kcal (100% energy needs), 88 gm protein (100% protein needs), 1065 ml free water. 2) Water flush 100ml Q4H if allowed, adjust PRN 3) Advance to cardiac diet as medically feasible 4) Monitor NPO status, lab values, wt trend, I/O Expected Outcomes/Goals: To meet >75% estimated needs within 7 days Lab values to improve Fu 2-3 days Plan discussed with: Other Critical Care Time(min): 30 CAROLINE ROBB MD Oct 14, 2024 14:10
--- NOTE | 2024-10-14 14:30 | DVHPN2 ---
Progress Note - Dictate Date Seen: Oct 14, 2024 Has the PT tested + for MRSA If YES, has PT been informed?: No Medical Necessity Reason Pt with a Central, PICC or Fol: Yes vital signs Vital Sign Date Time Temp Pulse Resp B/P (MAP) Pulse Ox O2 Delivery O2 Flow Rate FiO2 10/14/24 13:57 69 22 112/51 (71) 100 30 10/14/24 13:53 99.0 99.0 10/14/24 10:00 Mechanical Ventilator+ Total Intake and Output 10/13/24 10/13/24 10/14/24 15:00 23:00 07:00 Intake Total 325.004 ml 423.504 ml 280.125 ml Output Total 700 ml 1025 ml Balance 325.004 ml -276.496 ml -744.875 ml medications Current Medications Medications Dose Ordered Sig/Liliam Route Start Time Stop Time Status Last Admin Dose Admin Midazolam HCl 50 ml @ 1 mls/hr Q24H IV 10/07/24 04:45 10/13/24 18:41 4 MLS/HR Fentanyl Citrate 250 ml @ 2.5 mls/hr Q24H IV 10/07/24 06:15 10/14/24 01:46 12.5 MLS/HR Ondansetron HCl 4 mg Q4HP PRN IV 10/07/24 10:00 Nitroglycerin 0.4 mg Q5MINP PRN SL 10/07/24 10:00 Morphine Sulfate 2 mg Q30M PRN IV 10/07/24 10:00 Pantoprazole Sodium 40 mg DAILY IV 10/07/24 10:00 10/14/24 10:31 40 MG Aspirin 81 mg DAILY PO 10/08/24 10:00 10/13/24 09:06 81 MG Mexiletine HCl 150 mg TID GT 10/08/24 22:00 10/14/24 05:51 150 MG Acetaminophen 500 mg Q6HP PRN PO 10/08/24 22:30 10/09/24 21:26 500 MG Enteral Nutritional Formula 1,000 ml 55ML/HR GT 10/09/24 18:45 10/12/24 21:34 1,000 ML Phenylephrine HCl 80 mg/Sodium Chloride 250 ml @ 7.5 mls/hr Q24H IV 10/10/24 09:30 8/16/25 21:03 21.563 MLS/HR Ertapenem 1 gm/ Sodium Chloride 50 ml @ 100 mls/hr DAILY IV 10/10/24 20:00 10/14/24 10:34 100 MLS/HR Furosemide 20 mg BIDD IV 10/12/24 18:00 10/14/24 05:50 20 MG Digoxin 125 mcg Q6H IV 10/14/24 16:00 Esmolol HCl 250 ml @ 0 mls/hr Q0M IV 10/14/24 10:45 Heparin Sodium/ Dextrose 250 ml @ 13 mls/hr [id number] IV 10/14/24 12:45 laboratory and microbiology Laboratory Tests 10/14/24 03:10 Test 10/14/24 03:10 Range/Units Serum Glucose 71 L 74-106 mg/dL Assessment/Plan s/p cardiac arrest VT CPR <5 min elevated troponin acute resp failure atelectases pt seen and examined on the ICU events off sedation on mechanical ventilation PEEP 5, FiO2 30% patient had an episode of rapid afib amiodarone dc's out of caution in view of elevated LFT's management plan daily sedation holidays ok to use precedex cont abx monitor cx monitor labs renal function daily abg and CXR dvt proph/on heparin drip extubation not feasible in view of hemodynamic instability awaiting pacemaker placement f/u cardiology crit care time 35 min Dietary Evaluation Review Comments: 1) TF Jevity 1.2Cal @ 55 ml/hr. x 24hr along with Pro-stat 1 pk daily. Start @ 20ml/hr, increase 10ml/hr Q4H until goal is reached. TF @ goal volume provides 1684 kcal (100% energy needs), 88 gm protein (100% protein needs), 1065 ml free water. 2) Water flush 100ml Q4H if allowed, adjust PRN 3) Advance to cardiac diet as medically feasible 4) Monitor NPO status, lab values, wt trend, I/O Expected Outcomes/Goals: To meet >75% estimated needs within 7 days Lab values to improve Fu 2-3 days Plan discussed with: Other (Rn) BELLO ROTHMAN MD Oct 14, 2024 14:30
[2024-10-14] MEDS ORDERED: DIGOXIN (250MCG/ML) 2 ML AMPULE IV SCH (16:00)
--- NOTE | 2024-10-14 16:14 | DVHPN2 ---
Progress Note - Dictate Date Seen: Oct 14, 2024 Has the PT tested + for MRSA If YES, has PT been informed?: No Medical Necessity Reason Pt with a Central, PICC or Fol: Yes Subjective No new complaints Patient is sedated and intubated Liver enzymes are trending down Attempt was made for CPAP however patient went into rapid AFib and RVR Because of concern of amiodarone hepatotoxicity she was started on beta-blockers and given a dose of digoxin vital signs Vital Sign Date Time Temp Pulse Resp B/P (MAP) Pulse Ox O2 Delivery O2 Flow Rate FiO2 10/14/24 15:26 70 19 121/59 (79) 100 30 10/14/24 15:00 98.6 209.5 10/14/24 14:00 Mechanical Ventilator+ Total Intake and Output 10/13/24 10/13/24 10/14/24 15:00 23:00 07:00 Intake Total 325.004 ml 423.504 ml 280.125 ml Output Total 700 ml 1025 ml Balance 325.004 ml -276.496 ml -744.875 ml medications Current Medications Medications Dose Ordered Sig/Liliam Route Start Time Stop Time Status Last Admin Dose Admin Midazolam HCl 50 ml @ 1 mls/hr Q24H IV 10/07/24 04:45 10/13/24 18:41 4 MLS/HR Fentanyl Citrate 250 ml @ 2.5 mls/hr Q24H IV 10/07/24 06:15 10/14/24 01:46 12.5 MLS/HR Ondansetron HCl 4 mg Q4HP PRN IV 10/07/24 10:00 Nitroglycerin 0.4 mg Q5MINP PRN SL 10/07/24 10:00 Morphine Sulfate 2 mg Q30M PRN IV 10/07/24 10:00 Pantoprazole Sodium 40 mg DAILY IV 10/07/24 10:00 10/14/24 10:31 40 MG Aspirin 81 mg DAILY PO 10/08/24 10:00 10/13/24 09:06 81 MG Mexiletine HCl 150 mg TID GT 10/08/24 22:00 10/14/24 14:29 150 MG Acetaminophen 500 mg Q6HP PRN PO 10/08/24 22:30 10/09/24 21:26 500 MG Enteral Nutritional Formula 1,000 ml 55ML/HR GT 10/09/24 18:45 10/12/24 21:34 1,000 ML Phenylephrine HCl 80 mg/Sodium Chloride 250 ml @ 7.5 mls/hr Q24H IV 10/10/24 09:30 10/13/24 21:03 21.563 MLS/HR Ertapenem 1 gm/ Sodium Chloride 50 ml @ 100 mls/hr DAILY IV 10/10/24 20:00 10/14/24 10:34 100 MLS/HR Furosemide 20 mg BIDD IV 10/12/24 18:00 10/14/24 05:50 20 MG Esmolol HCl 250 ml @ 0 mls/hr Q0M IV 10/14/24 10:45 Heparin Sodium/ Dextrose 250 ml @ 13 mls/hr [id number] IV 10/14/24 12:45 Digoxin 125 mcg Q6H IV 10/14/24 16:00 objective Examination: GENERAL:Normal, LUNGS:Abnormal (diminished on ventillator ), ABDOMEN:Normal, SKIN:Normal, NEURO:Normal laboratory and microbiology Laboratory Tests 10/14/24 03:10 Test 10/14/24 03:10 Range/Units Serum Glucose 71 L 74-106 mg/dL Problems(with codes): (1) Pneumonia (2) Sepsis, unspecified organism (3) Ventricular fibrillation (4) Cardiac arrest Prognosis Assessment plan Patient's transaminases are trending down I believe the patient's liver enzymes elevation will likely related to shock liver rather than amiodarone toxicity If clinically required patient may be given amiodarone again I will continue to monitor her labs closely I will follow up patient with you Dietary Evaluation Review Comments: 1) TF Jevity 1.2Cal @ 55 ml/hr. x 24hr along with Pro-stat 1 pk daily. Start @ 20ml/hr, increase 10ml/hr Q4H until goal is reached. TF @ goal volume provides 1684 kcal (100% energy needs), 88 gm protein (100% protein needs), 1065 ml free water. 2) Water flush 100ml Q4H if allowed, adjust PRN 3) Advance to cardiac diet as medically feasible 4) Monitor NPO status, lab values, wt trend, I/O Expected Outcomes/Goals: To meet >75% estimated needs within 7 days Lab values to improve Fu 2-3 days Plan discussed with: Other (ICU Nurse) CANDI BOSS MD Oct 14, 2024 16:14
[2024-10-14] MEDS: DIGOXIN (250MCG/ML) 2 ML AMPULE IV SCH (16:16)
[2024-10-14 18:49] LABS: INR 1.15 (0.9-1.15); Prothrombin Time 12.0 sec (9.3-11.8)
[2024-10-14 19:00] LABS: Partial Thromboplastin Time 75.2 SEC (24.5-34.5)
[2024-10-15] VITALS (105 sets, daily range): BP systolic 80–117; BP diastolic 40–64; PULSE 71–84; RESP 16–26; TEMP 97.5–99; O2SAT 95–100
[2024-10-15 04:08] LABS: Hematocrit 30.3 % (36.0-46.0); Hemoglobin 10.2 g/dL (12.2-16.2); Mean Corpuscular Hemoglobin 31.1 pg (28.0-32.0); Mean Corpuscular Volume 92.8 fL (80.0-100.0)
[2024-10-15 04:23] LABS: Anion Gap 10 (5-15); BUN/Creatinine Ratio 13.8 (10.0-20.0); Blood Urea Nitrogen 11 mg/dL (9-23); Carbon Dioxide 25 mmol/L (20-31); Chloride 100 mmol/L (98-107); Magnesium 2.2 mg/dL (1.6-2.6); Potassium 4.2 mmol/L (3.5-5.1)
[2024-10-15 04:24] LABS: Bilirubin, Total 1.0 mg/dL (0.2-1.0)
[2024-10-15 04:29] LABS: Alanine Aminotransferase 57 U/L (7-40); Albumin 2.7 g/dL (3.2-4.8); Alkaline Phosphatase 129 U/L (46-116); Calcium 8.3 mg/dL (8.7-10.4); Glucose 70 mg/dL (74-106); Sodium 135 mmol/L (136-145); Total Protein 5.4 g/dL (5.7-8.2)
[2024-10-15 04:42] LABS: Nucleated Red Blood Cells % 1.0 %; Total Cells Counted 100.0 (100)
[2024-10-15 04:43] LABS: Tear Drop Cells FEW
--- NOTE | 2024-10-15 07:52 | ECG ---
[facility] Test Date: 2024-10-14 Test Time: 08:47:35 Pat Name: CLAIRE OLIVO Department: icu Room: [address] [place] [address] A Gender: F [employer] Operator: issa : [id number] Requested By: FREDERIC ACOSTA Order Number: [id number] Reading MD: Marito Skelton Measurements Intervals [place] Rate: 78 P: 0 MT: 0 QRS: 41 QRSD: 161 T: 69 QT: 473 QTc: 539 Interpretive Statements Atrial fibrillation IVCD, consider atypical LBBB Electronically Signed On 10-15-2024 22:17:23 PDT by Marito Skelton Please click the below link to view image of tracing.
--- NOTE | 2024-10-15 08:37 | DVH ---
CHEST RADIOGRAPH Indication: PT INTUBATED Technique: Single frontal view of the chest was obtained COMPARISON: XY CHEST PORTABLE on DOS: 10/14/24, XY CHEST PORTABLE on DOS: 10/13/24, XY CHEST PORTABLE o n DOS: 10/12/24, XY CHEST XRAY 1 VIEW on DOS: 10/11/24, XY CHEST PORTABLE on DOS: 10/10/24 FINDINGS: Lines and Tubes: Endotracheal tube, enteric catheter and right central venous catheter in satisfactor y position. Lungs: Congestion Pleura: No effusion. No pneumothorax. Cardiomediastinal contours: Unremarkable Bones: Unremarkable IMPRESSION: Lines and tubes in satisfactory position. No significant interval change.
--- NOTE | 2024-10-15 08:48 | DVHPN2 ---
Progress Note - Dictate Date Seen: Oct 15, 2024 Has the PT tested + for MRSA If YES, has PT been informed?: No Medical Necessity Reason Pt with a Central, PICC or Fol: Yes vital signs Vital Sign Date Time Temp Pulse Resp B/P (MAP) Pulse Ox O2 Delivery O2 Flow Rate FiO2 10/15/24 08:14 80 18 98/50 (66) 100 30 10/15/24 07:30 97.9 208.2 10/15/24 06:00 Mechanical Ventilator+ Total Intake and Output 10/14/24 10/14/24 10/15/24 15:00 23:00 07:00 Intake Total 603.439 ml 589.627 ml 256.125 ml Output Total 1000 ml 1725 ml Balance 603.439 ml -410.373 ml -1468.875 ml medications Current Medications Medications Dose Ordered Sig/Liliam Route Start Time Stop Time Status Last Admin Dose Admin Midazolam HCl 50 ml @ 1 mls/hr Q24H IV 10/07/24 04:45 10/15/24 08:33 4 MLS/HR Fentanyl Citrate 250 ml @ 2.5 mls/hr Q24H IV 10/07/24 06:15 10/15/24 04:40 10 MLS/HR Ondansetron HCl 4 mg Q4HP PRN IV 10/07/24 10:00 Nitroglycerin 0.4 mg Q5MINP PRN SL 10/07/24 10:00 Morphine Sulfate 2 mg Q30M PRN IV 10/07/24 10:00 Pantoprazole Sodium 40 mg DAILY IV 10/07/24 10:00 10/14/24 10:31 40 MG Aspirin 81 mg DAILY PO 10/08/24 10:00 10/13/24 09:06 81 MG Mexiletine HCl 150 mg TID GT 10/08/24 22:00 10/15/24 05:47 150 MG Acetaminophen 500 mg Q6HP PRN PO 10/08/24 22:30 10/09/24 21:26 500 MG Enteral Nutritional Formula 1,000 ml 55ML/HR GT 10/09/24 18:45 10/12/24 21:34 1,000 ML Phenylephrine HCl 80 mg/Sodium Chloride 250 ml @ 7.5 mls/hr Q24H IV 10/10/24 09:30 10/14/24 23:50 16.875 MLS/HR Ertapenem 1 gm/ Sodium Chloride 50 ml @ 100 mls/hr DAILY IV 10/10/24 20:00 10/14/24 10:34 100 MLS/HR Furosemide 20 mg BIDD IV 10/12/24 18:00 10/15/24 05:47 20 MG Esmolol HCl 250 ml @ 0 mls/hr Q0M IV 10/14/24 10:45 Heparin Sodium/ Dextrose 250 ml @ 11 mls/hr [id number] IV 10/14/24 20:15 laboratory and microbiology Laboratory Tests 10/15/24 03:09 Test 10/15/24 03:09 Range/Units Serum Glucose 70 L 74-106 mg/dL Assessment/Plan Patient is a 54-year-old female who was brought to the hospital for witnessed syncope. She is intubated and is being managed in ICU. Information was obtained by reviewing the chart and communicating with patient's son (over the phone). Family recognized witnessed syncope and started CPR and called EMS. Reportedly, EMS found the patient in ventricular fibrillation and shocked the patient and brought the patient to the hospital. Patient was intubated in emergency room and transferred to ICU. Patient was on amiodarone drip. Later the patient had ventricular tachycardia (Systane). High sensitive troponin had been minimally/flatly elevated. Presentation was not in favor of acute coronary syndrome. Cardiology is involved for cardiac aspects of care. Intubated. Noncommunicative. No JVD. Mucosa pale. No carotid bruit. Scattered rhonchi in the lungs is heard. Cardiac: Regular, no thrill. Systolic murmur 2/6 in apex is heard. Abdomen is soft. No edema in extremities. Past medical history as per son: Congenital heart disease, status post bypass WBC: 14.5 - 11.9 - 18.8 - 20.0 - 21.2 - 14.3 - 10.3 - 8.9 - 9.2 - 11.1 Hemoglobin: 10.1 - 9.6 - 9.2 - 8.8 - 8.7 - 8.0 - 8.3 - 8.5 - 7.8 - 10.2 Creatinine: 0.95 - 0.93 - 0.87 - 0.83 - 0.83 - 0.76 - 0.68 - 0.72 - 0.79 - 0.76 - 0.80 Potassium: 3.4 - 4.0 - 4.6 - 3.5 - 3.3 - 4.1 - 3.7 - 3.2 - 3.7 - 4.0 - 3.2 - 3.4 - 3.9 - 4.2 Magnesium: 2.0 - 1.6 - 2.0 - 3.0 - 1.5 - 1.9 - 2.1 - 1.8 - 2.0 - 1.9 Troponin (high sensitive): 141 - 138 - 117 BNP: 457.16 AST/ALT: 32/11 - 19/13 - 538/168 - 293/152 - 131/130 - 78/94 - 68/74 - 48/57 Digoxin level: 2.83 UDS: non-revealing Chest x-ray revealed: Lines and Tubes: Endotracheal tube tip projects approximately 1.4 cm above the level of the tyler. Enteric catheter courses below the lateral of the diaphragm and terminates beyond the inferior margin of the image. Right internal jugular central venous catheter terminates within the distal superior vena cava. Lungs: Moderate diffuse increased prominence of the pulmonary vasculature without evidence of focal consolidation. Pleura: No effusion. No pneumothorax. Cardiomediastinal contours: Cardiomegaly. Bones: Unremarkable IMPRESSION: 1. Cardiomegaly and diffuse increased prominence of the pulmonary vasculature. 2. Lines and tubes as above. Repeat chest x-ray revealed: IMPRESSION: 1. Endotracheal tube tip 1.6 cm above the tyler; consider 2 cm retraction 2. Mild pulmonary vascular congestion. Moderate cardiomegaly. Repeat chest xry revealed: IMPRESSION: Endotracheal tube tip 1.6 cm above the tyler; consider 2 cm retraction Mild pulmonary vascular congestion. Moderate cardiomegaly. Repeat chest xry revealed: IMPRESSION: 1. Stable cardiomegaly, small left pleural effusion and mild diffuse increased prominence of the pulmonary vasculature. 2. Repositioned endotracheal tube as above. Remaining lines and tubes unchanged. Repeat chest xry revealed: IMPRESSION: 1. Cardiomegaly, stable diffuse increased prominence of the pulmonary vasculature and small bilateral pleural effusions. 2. Slight interval advancement of endotracheal tube as above. Remaining lines and tubes unchanged. Repeat chest xry revealed: IMPRESSION: 1. Slight interval decrease in diffuse increased prominence of the pulmonary vasculature. 2. Stable cardiomegaly and small left pleural effusion. 3. Lines and tubes unchanged. Repeat chest xry revealed: IMPRESSION: 1. Cardiomegaly and small left pleural effusion. 2. Lines and tubes unchanged. Repeat chest xry revealed: IMPRESSION: Stable lines and tubes. Similar lung aeration. Repeat chest xry revealed: IMPRESSION: Cardiomegaly and small left pleural effusion. Lines and tubes unchanged. Left upper ext arterial duplex: IMPRESSION: No hemodynamically significant stenosis based on peak systolic velocity criteria. Left lower ext arterial duplex: IMPRESSION: There is no evidence for peripheral vascular insufficiency in the left lower extremity. No significant focal stenosis is identified. Liver Ultrasound revealed: Hepatic steatosis. Hepatomegaly. Cholelithiasis. CT of the head revealed: IMPRESSION: No acute intracranial abnormality. Repeat CT of head revealed: IMPRESSION: No acute intracranial abnormality. Echocardiogram reported: lvef 15-20% dilated LV severe global dysfunction mild RV dysfunction biatrial enlargement mild moderate MAC, moderate mitral regurg mild to moderate aortic regug (images of echo reviewed and questioned presence of mitral ring and also some component (moderate of Mitral stenosis) EKG revealed sinus rhythm Telemetry revealed occasions of atrial fibrillation. There was occasional sustained ventricular tachycardia. EMS tele monitor revealed ventricular fibrillation for which the patient was shocked. Has remained sinus rhythm. Later with A-fib with MVR LHC revealed: Patent RICHMOND to LAD; Patent SVG to obtuse marginal; LVEF of 20% with increased EDP; Proximal disease in LAD/LCX RICHIE was performed: Consistent with severely reduced LVEF. Consistent with previously implanted Mitral ring, Up to moderate Mitral stenosis/Mitral Regurgitation and also Moderate Aortic insufficiency. Patient is a 54-year-old female who presented with witnessed syncope. She was found to have ventricular fibrillation for which was shocked. Later had repeated episode of sustained ventricular tachycardia. Patient has been kept in ICU. Does have baseline history of coronary artery disease for which has had bypass surgery. Left heart catheterization was performed which revealed patent RICHMOND and patent SVG. ACS is not considered at this point. It is of note that the patient's echocardiogram reveals significantly use systolic function. Valvular heart disease is considered. Findings are in favor of previously implanted mitral ring. By reviewing the echo images, component of up to moderate mitral stenosis could not be ruled out. LHC was performed that ruled out any active specific ischemia as an etiology for presentation. Is off Amiodarone for abnormal LFT. Being followed by Nephrology / Pulmonary / Neurology / GI ID. Tele has remained sinus rhythm. Had episode of a-fib with RVR. Was loaded with Digoxin. Dig level was performed at wrong timing (only 5 hours after the last Dig given). Dig toxicity is not considered. Patient is back to normal sinus rhythm. Has good kidney function. Syncope V-fib s/p shock Sustained V-tach Paroxysmal A-fib VHD, s/p Mitral ring Systolic heart failure Abnormal LFT Cardiac suggestion for management: Manage in ICU Follow up electrolytes and kidney function test and correct abnormalities Full anticoagulation (a-fib with high CHADS-Vasc score). On Heparin drip for now Off Amio drip (worsened LFT) (personally discussed with EP: Dr Armstrong who advised to stop / not to restart Amiodarone) On Mexiletine If need for pressure support: use Phenyl Ephrine May consider Esmolol for PVC/Vtach EP Following ICD implantation as per EP Pulmonary Follow up Provide previous medical records from reaching out to previous hospitals in [facility]... Further evaluation and management depends on the above and clinical course. A total of 75 minutes was spent reviewing the patient record, examining the patient, making a diagnostic and therapeutic plan, discussing this plan with medical personnel, following up on diagnostic studies and following the patient for clinical stability excluding any and all procedures. At least 50% of this time was spent in direct, [id number] contact. Thank you for allowing me to participate in this patient's care. Further recommendations will depend on patient's clinical course. Please do not hesitate to contact me if you have any questions or concerns. This medical document was created using electronic medical record system with [employer] computerized dictation system. Although this document has been carefully reviewed, there may still be some phonetic and typographical errors. These areas are purely typographical due to the imperfection of the software programs, and do not reflect any compromise in the patient's medical care. Dietary Evaluation Review Comments: 1) TF Jevity 1.2Cal @ 55 ml/hr. x 24hr along with Pro-stat 1 pk daily. Start @ 20ml/hr, increase 10ml/hr Q4H until goal is reached. TF @ goal volume provides 1684 kcal (100% energy needs), 88 gm protein (100% protein needs), 1065 ml free water. 2) Water flush 100ml Q4H if allowed, adjust PRN 3) Advance to cardiac diet as medically feasible 4) Monitor NPO status, lab values, wt trend, I/O Expected Outcomes/Goals: To meet >75% estimated needs within 7 days Lab values to improve Fu 2-3 days Plan discussed with: Other (nurse) CORDELL VERA MD Oct 15, 2024 08:48
--- NOTE | 2024-10-15 09:46 | ECG ---
[facility] Test Date: 2024-10-15 Test Time: 09:35:14 Pat Name: CLAIRE OLIVO Department: ICU Room: [address] [place] [address] A Gender: F [place]: AMY : 1970 Requested By: CORDELL VERA Order Number: [id number] Reading MD: Marito Skelton Measurements Intervals [place] Rate: 82 P: 71 MT: 156 QRS: 146 QRSD: 160 T: 9 QT: 429 QTc: 501 Interpretive Statements Sinus rhythm Nonspecific intraventricular conduction delay Electronically Signed On 10-15-2024 22:18:10 PDT by Marito Skelton Please click the below link to view image of tracing.
--- NOTE | 2024-10-15 11:16 | DVHPN2 ---
Progress Note - Dictate Date Seen: Oct 15, 2024 Has the PT tested + for MRSA If YES, has PT been informed?: No Medical Necessity Reason Pt with a Central, PICC or Fol: Yes Subjective Ms. Smith is a 54 years old female who was brought to the [facility] on 10/07/2024 with a chief complaint of cardiopulmonary arrest/status post CPR. I have seen and examined the patient, I have discussed with her nurse, she is intubated, sedated, responsive to light painful stimuli positive to touch as well. Fentanyl 125 mcg/hour, Versed 4 mg/hour, Neosyn 90 mcg/min Blood culture, 10/09/2024: UDS, 10/07/2024: Negative Urinalysis, 10/07/2024: Leukocyte esterase: Negative WBC/HB/PLT/MCV, 10/09/2024: 20/8.8/219/94.6, 10/10/2024: 21.2/8.7/232/92.2 PT/INR/PTT, 10/08/2024: 12.4/1.19/72.7, 10/09/2024: 13.1/1.26/68.9, 10/10/2024: 14.4/2/1.38/35.3 CMP, 10/08/2024: Unremarkable Troponin one high sensitivity, 10/07/2024: 141, 138, 117 TBI/AST/ALT/AP, 10/10/2024: 0.5/538/168/144, 10/11/2024: 0.6/293/199/152, 10/14/2024: 0.8/68/74/124 TG/HDL/LDL/HDL, 10/07/24: 71/66/31/21 Echocardiogram, 10/07/2024: lvef 15-20% dilated LV severe global dysfunction mild RV dysfunction biatrial enlargement mild moderate MAC, moderate mitral regurg mild to moderate aortic regug RICHIE, 10/08/2024: 1. Left ventricle: Dilated LV was seen. LVEF was 25%. There was diffuse hypokinesis of left ventricle. 2. Right ventricle: RV was mildly dilated. 3. Left atrium: LA enlarged 4. Right atrium: RA was enlarged. 5. Mitral valve: Mitral was thickened with reduced opening. Moderate Mitral regurgitation was seen. Planinomentry of valve (TTE images also obtained) revealed MVA of 2.1 cm. Mean pressure gradient (obtained from limited TTE images) was 5. Images are consistent with previously implanted Ring in Mitral position. Consistent with up to Moderate Mitral stenosis. . There was no vegetation 6. Left atrial appendage: No evidence of thrombus. 7. Aortic valve: Trileaflet valve. No stenosis. Up to moderate Aortic Insufficiency was seen. There was no vegetation 8. Pulmonic valve: Trivial pulmonic insufficiency. No significant stenosis. 9. Tricuspid valve: Mild tricuspid regurgitation. There was no vegetation 10. Interatrial septum: Negative color flow for right to left shunt was observed. Bubble study was performed: negative for shunt 11. Pericardium: No significant effusion. 12. Thoracic aorta: No significant plaquing. Chest x-ray, 10/27/2024: 1. Cardiomegaly, stable diffuse increased prominence of the pulmonary vasculature and small bilateral pleural effusions. 2. Slight interval advancement of endotracheal tube as above. Remaining lines and tubes unchanged. CT head, 10/07/2024: No acute intracranial abnormality General: the patient is well developed and nourished. No acute distress. Intubated CT head, 10/07/2024: No acute intracranial abnormality. CT head, 10/11/2024: No acute intracranial abnormality vital signs Vital Sign Date Time Temp Pulse Resp B/P (MAP) Pulse Ox O2 Delivery O2 Flow Rate FiO2 10/15/24 09:56 82 18 102/49 (66) 100 30 10/15/24 07:30 97.9 208.2 10/15/24 06:00 Mechanical Ventilator+ Total Intake and Output 10/14/24 10/14/24 10/15/24 15:00 23:00 07:00 Intake Total 603.439 ml 589.627 ml 256.125 ml Output Total 1000 ml 1725 ml Balance 603.439 ml -410.373 ml -1468.875 ml medications Current Medications Medications Dose Ordered Sig/Liliam Route Start Time Stop Time Status Last Admin Dose Admin Midazolam HCl 50 ml @ 1 mls/hr Q24H IV 10/07/24 04:45 10/15/24 08:33 4 MLS/HR Fentanyl Citrate 250 ml @ 2.5 mls/hr Q24H IV 10/07/24 06:15 10/15/24 04:40 10 MLS/HR Ondansetron HCl 4 mg Q4HP PRN IV 10/07/24 10:00 Nitroglycerin 0.4 mg Q5MINP PRN SL 10/07/24 10:00 Morphine Sulfate 2 mg Q30M PRN IV 10/07/24 10:00 Pantoprazole Sodium 40 mg DAILY IV 10/07/24 10:00 10/15/24 10:22 40 MG Aspirin 81 mg DAILY PO 10/08/24 10:00 10/15/24 10:22 81 MG Mexiletine HCl 150 mg TID GT 10/08/24 22:00 10/15/24 05:47 150 MG Acetaminophen 500 mg Q6HP PRN PO 10/08/24 22:30 10/09/24 21:26 500 MG Enteral Nutritional Formula 1,000 ml 55ML/HR GT 10/09/24 18:45 10/12/24 21:34 1,000 ML Phenylephrine HCl 80 mg/Sodium Chloride 250 ml @ 7.5 mls/hr Q24H IV 10/10/24 09:30 10/14/24 23:50 16.875 MLS/HR Ertapenem 1 gm/ Sodium Chloride 50 ml @ 100 mls/hr DAILY IV 10/10/24 20:00 10/15/24 10:22 100 MLS/HR Furosemide 20 mg BIDD IV 10/12/24 18:00 10/15/24 05:47 20 MG Esmolol HCl 250 ml @ 0 mls/hr Q0M IV 10/14/24 10:45 Heparin Sodium/ Dextrose 250 ml @ 11 mls/hr [id number] IV 10/14/24 20:15 objective The patient is well-nourished and well-developed with no distress. The patient is intubated MENTAL STATUS: Subjective CRANIAL NERVES: Pupils are equal, round and reactive.There are corneal reflexes and doll's eyes phenomenon. No signs of facial weakness. There are gagging or coughing reflexes SENSATION: Responses to pain stimuli. MOTOR: Normal tone in the upper and lower extremity. Normal muscle bulk. No fasciculations. No spontaneous movement. REFLEXES: Deep tendon reflexes are symmetrical. No pathological reflexes. CEREBELLAR/COORDINATION: Deferred GAIT/STATION: deferred. laboratory and microbiology Laboratory Tests 10/15/24 03:09 Test 10/15/24 03:09 Range/Units Serum Glucose 70 L 74-106 mg/dL Problem List Cardiopulmonary arrest Status post CPR Metabolic encephalopathy Hypoxic encephalopathy Congestive heart failure Leukocytosis/sepsis Respiratory failure Elevated liver function tests She is waking up Assessment/Plan Monitoring Supportive treatment ICU care Stabilize vitals Respiratory support/vent management Hold off Lipitor (elevated liver function tests), LDL (31) (home medications included Lipitor 40 mg daily) DVT prophylaxis GI prophylaxis Cardiology on case Pulmonology on case Nephrology on case Consult GI Re: Elevated liver function tests Need more history This medical document was created using an electronic medical record system with [employer] dictation system. Although this document has been carefully reviewed, there may still be some phonetic and typographical errors. These areas are purely typographical due to imperfections of the software programs, and do not reflect any compromise in the patient's medical care. Prognosis guarded Dietary Evaluation Review Comments: 1) TF Jevity 1.2Cal @ 55 ml/hr. x 24hr along with Pro-stat 1 pk daily. Start @ 20ml/hr, increase 10ml/hr Q4H until goal is reached. TF @ goal volume provides 1684 kcal (100% energy needs), 88 gm protein (100% protein needs), 1065 ml free water. 2) Water flush 100ml Q4H if allowed, adjust PRN 3) Advance to cardiac diet as medically feasible 4) Monitor NPO status, lab values, wt trend, I/O Expected Outcomes/Goals: To meet >75% estimated needs within 7 days Lab values to improve Fu 2-3 days Plan discussed with: Other CAROLINE ROBB MD Oct 15, 2024 11:16
[2024-10-15 12:10] LABS: Base Excess 2.5 mmol/L (-2.0-3.0)
--- NOTE | 2024-10-15 13:29 | CONS ---
Pharmacy Clinical Information: HEPARIN DRIP, ACS PROTOCOL DISCUSSED WITH CEE SUÁREZ PER DR SOLANO RESUME HEPARIN DRIP (WAS STOPPED ON 10/14 FOR POTENTIAL PACEMAKER PROCEDURE) HEPARIN DRIP RESUME AT LAST RATE RECORDED 1100 UNIT/HR @1330 NEXT APTT DRAW SCHEDULED @1930 PER RX PROTOCOL CONFIRMED AND READ BACK WITH [facility] [employer] PHARMACIST Oct 15, 2024 13:29
[2024-10-15] MEDS: HEPARIN DRIP/D5W 100UNITS/ML 250 ML IV SCH (13:30)
--- NOTE | 2024-10-15 13:48 | DVHPN2 ---
Progress Note - Dictate Date Seen: Oct 15, 2024 Has the PT tested + for MRSA If YES, has PT been informed?: No Medical Necessity Reason Pt with a Central, PICC or Fol: Yes vital signs Vital Sign Date Time Temp Pulse Resp B/P (MAP) Pulse Ox O2 Delivery O2 Flow Rate FiO2 10/15/24 13:43 83 18 94/51 (65) 99 30 10/15/24 07:30 97.9 208.2 10/15/24 06:00 Mechanical Ventilator+ Total Intake and Output 10/14/24 10/14/24 10/15/24 15:00 23:00 07:00 Intake Total 603.439 ml 589.627 ml 289.500 ml Output Total 1000 ml 1725 ml Balance 603.439 ml -410.373 ml -1435.500 ml medications Current Medications Medications Dose Ordered Sig/Liliam Route Start Time Stop Time Status Last Admin Dose Admin Midazolam HCl 50 ml @ 1 mls/hr Q24H IV 10/07/24 04:45 10/15/24 08:33 4 MLS/HR Fentanyl Citrate 250 ml @ 2.5 mls/hr Q24H IV 10/07/24 06:15 10/15/24 04:40 10 MLS/HR Ondansetron HCl 4 mg Q4HP PRN IV 10/07/24 10:00 Nitroglycerin 0.4 mg Q5MINP PRN SL 10/07/24 10:00 Morphine Sulfate 2 mg Q30M PRN IV 10/07/24 10:00 Pantoprazole Sodium 40 mg DAILY IV 10/07/24 10:00 10/15/24 10:22 40 MG Aspirin 81 mg DAILY PO 10/08/24 10:00 10/15/24 10:22 81 MG Mexiletine HCl 150 mg TID GT 10/08/24 22:00 10/15/24 05:47 150 MG Acetaminophen 500 mg Q6HP PRN PO 10/08/24 22:30 10/09/24 21:26 500 MG Enteral Nutritional Formula 1,000 ml 55ML/HR GT 10/09/24 18:45 10/12/24 21:34 1,000 ML Phenylephrine HCl 80 mg/Sodium Chloride 250 ml @ 7.5 mls/hr Q24H IV 10/10/24 09:30 10/14/24 23:50 16.875 MLS/HR Ertapenem 1 gm/ Sodium Chloride 50 ml @ 100 mls/hr DAILY IV 10/10/24 20:00 10/15/24 10:22 100 MLS/HR Furosemide 20 mg BIDD IV 10/12/24 18:00 10/15/24 05:47 20 MG Esmolol HCl 250 ml @ 0 mls/hr Q0M IV 10/14/24 10:45 Heparin Sodium/ Dextrose 250 ml @ 11 mls/hr [id number] IV 10/15/24 13:30 laboratory and microbiology Laboratory Tests 10/15/24 03:09 Test 10/15/24 03:09 Range/Units Serum Glucose 70 L 74-106 mg/dL Assessment/Plan Plan/Recommendation ASSESSMENT: This is a 54-year old female who initially presented 10/07/2024 due to witnessed syncope. As per records and having spoke with family members (son/father), patient had collapsed in the kitchen as witnessed by nearby family members whom had initiated CPR. EMS had been called for further medical attention and upon their arrival reports indicate the patient had been found in ventricular fibrillation for which she was subsequently shocked by EMS and upon rhythm strip analysis of the event, rhythm itself does reveal evidence for what appears to be ventricular fibrillation requiring shock x 1 which upon ED arrival 12-lead electrocardiogram had revealed sinus rhythm at 84bpm, QRS of 96ms with a QTC interval of 495 ms. Upon ED arrival patient was intubated and initiated on Amiodarone infusion for rhythm management. Patient was later admitted to the ICU for close observation/management and had been noted to experience episodes of ventricular tachycardia that had degenerated into ventricular fibrillation resulting in cardiac arrest requiring initiation of CPR/ACLS protocol which the patient was subsequently shocked x 1 resulting in ROSC. Patient did undergo subsequent cardiac catheterization 10/08/2024 by Interventional Cardiology services revealing patent RICHMOND to LAD, patent SVG to obtuse marginal, proximal disease involving LAD and LCX. Echocardiogram 10/07/2024 had revealed a severely reduced LVEF function of 15-20%, dilated LV with severe global dysfunction, biatrial enlargement, moderate mitral insufficiency with mild to moderate aortic insufficiency. TTE itself had questioned potential presence of mitral ring and potential underlying component of mitral stenosis which subsequent RICHIE 10/08/2024 had revealed evidence of mitral ring with up to moderate mitral stenosis/mitral insufficiency in addition to moderate aortic insufficiency. Throughout course of present admission, patient has been furthermore noted to experience episodes of paroxysmal atrial fibrillation for which she has been maintained on anticoagulation for CVA prophylaxis. As the patient presented and was found to experience episodes of ventricular fibrillation requiring a total of 2 shocks, Electrophysiology services were later involved by Interventional Cardiology request to evaluate the patient for potential AICD implantation. Reported past medical history includes congenital heart disease, coronary artery disease status post previous bypass surgery Echocardiogram: (10/07/2024) revealed lvef 15-20% dilated LV severe global dysfunction mild RV dysfunction biatrial enlargement mild moderate MAC, moderate mitral regurg mild to moderate aortic regug (images of echo reviewed and questioned presence of mitral ring and also some component (moderate of Mitral stenosis) Cardiac Catheterization: (10/08/2024) revealed Patent RICHMOND to LAD; Patent SVG to obtuse marginal; LVEF of 20% with increased EDP; Proximal disease in LAD/LCX Transesophageal Echocardiogram (10/08/2024) revealed was performed: Consistent with severely reduced LVEF. Consistent with previously implanted Mitral ring, Up to moderate Mitral stenosis/Mitral Regurgitation and also Moderate Aortic insufficiency. Syncope, witnessed Cardiac arrest, status post ROSC Ventricular fibrillation, requiring shock x 2 Ventricular tachycardia with degeneration to ventricular fibrillation Systolic heart failure, severely reduced LV function of 15-20% Paroxysmal atrial fibrillation, currently sinus rhythm Coronary artery disease, s/p previous 2-V CABG Valvular heart disease, s/p previous mitral ring Beta-hemolytic group B streptococcus QRS < 120 milliseconds Secondary prevention ELECTROPHYSIOLOGY SUGGESTIONS FOR MANAGEMENT: Recognizing the above, patient herself benefits from undergoing AICD implantation for secondary prevention against sudden cardiac . As patient remains intubated on mechanical ventilation/sedation, benefits, risks, alternatives were discussed at length with the patient son who has agreed to AICD implantation. Of note, patient was found to have leukocytosis which sputum culture had revealed evidence for Enterobacter chloacae/beta-hemolytic group B streptococcus subsequently initiated on IV antibiotic therapy as managed by primary team/infectious disease services. Blood cultures 10/07/2024 at this point reveal no growth to date. Repeat blood cultures 10/09/2024 reveal NGTD. Repeat sputum culture 10/12/2024 reveals NGTD. Recognizing evidence for infection, ID consultation/clearance prior to pursuing AICD implantation had been requested and obtained. To proceed with IV antibiotic therapy during the interim. Recognizing co-morbidities, long-term continuation of anticoagulation is advised for CVA prophylaxis of PAF. Proceed with Heparin infusion (for now). Hold anti- platelet therapy as for now given tentative plan of procedure. Amiodarone held due to persistent transaminitis (improving). Remains on Mexiletin 150mg tid as well as Esmolol infusion as for now. To sustain potassium levels greater than 4.0. To sustain magnesium levels greater than 2.0. Proceed with close rate and rhythm surveillance during the interim. Of note, current Digoxin level supra- therapeutic at 2.83. Current creatinine of 0.80. Proceed to hold Digoxin therapy. Plan for repeat serum Digoxin level tomorrow morning. Plan for repeat EKG tomorrow morning to assess QRS duration. Plan of AICD implantation deferred due to the above. Plan for tentative AICD implantation this upcoming Tuesday. Remainder of cardiac management as per Interventional Cardiology services. Will proceed to follow from an EP perspective. GDMT for systolic heart failure as current conditions permit Proceed with close rate and rhythm surveillance Proceed with close hemodynamic surveillance Proceed with optimized blood pressure control Transfuse to sustain HGB level above 7.0 Sustain Magnesium level greater than 2.0 Sustain Potassium level greater than 4.0 Follow up renal function and electrolytes Management of ongoing concurrent medical conditions as per primary team Management of beta-hemolytic group B strep as per primary team/ID Management comorbidities as per primary team Management in the ICU Follow up fashion consultant recommendations Will proceed to follow from an EP perspective Further recommendations per clinical progression All available diagnostic labs, EKG's, and images were personally reviewed Patient's status, findings, and plan of care was reviewed and discussed with supervising physician Dr. Armstrong, who is in agreement with current plan of care. Plan of care discussed with and agreed upon by family / primary RN Prognosis: Guarded Thank you for allowing me to participate in the care of this patient. Further recommendations based on patients clinical course and progression, primary attending, and other consultants. Will continue to follow with primary attending. If you have any questions or concerns, please do not hesitate to contact me. A total of 75 minutes was spent reviewing the patient record, examining the patient, making a diagnostic and therapeutic plan, discussing this plan with medical personnel, following up on diagnostic studies and following the patient for clinical stability excluding any and all procedures. At least 50% of this time was spent in direct, [id number] contact. Plan discussed with: Other (Primary RN and Patient Son) Dietary Evaluation Review Comments: 1) TF Jevity 1.2Cal @ 55 ml/hr. x 24hr along with Pro-stat 1 pk daily. Start @ 20ml/hr, increase 10ml/hr Q4H until goal is reached. TF @ goal volume provides 1684 kcal (100% energy needs), 88 gm protein (100% protein needs), 1065 ml free water. 2) Water flush 100ml Q4H if allowed, adjust PRN 3) Advance to cardiac diet as medically feasible 4) Monitor NPO status, lab values, wt trend, I/O Expected Outcomes/Goals: To meet >75% estimated needs within 7 days Lab values to improve Fu 2-3 days Plan discussed with: Patient (Primary RN/Patient Family) TUCKER CRUZ SWATCH CHECKER Oct 15, 2024 13:48
--- NOTE | 2024-10-15 14:03 | DVHPN2 ---
Progress Note - Dictate Date Seen: Oct 11, 2024 Has the PT tested + for MRSA If YES, has PT been informed?: No Medical Necessity Reason Pt with a Central, PICC or Fol: Yes vital signs Vital Sign Date Time Temp Pulse Resp B/P (MAP) Pulse Ox O2 Delivery O2 Flow Rate FiO2 10/15/24 13:43 83 18 94/51 (65) 99 30 10/15/24 07:30 97.9 208.2 10/15/24 06:00 Mechanical Ventilator+ Total Intake and Output 10/14/24 10/14/24 10/15/24 15:00 23:00 07:00 Intake Total 603.439 ml 589.627 ml 289.500 ml Output Total 1000 ml 1725 ml Balance 603.439 ml -410.373 ml -1435.500 ml medications Current Medications Medications Dose Ordered Sig/Liliam Route Start Time Stop Time Status Last Admin Dose Admin Midazolam HCl 50 ml @ 1 mls/hr Q24H IV 10/07/24 04:45 10/15/24 08:33 4 MLS/HR Fentanyl Citrate 250 ml @ 2.5 mls/hr Q24H IV 10/07/24 06:15 10/15/24 04:40 10 MLS/HR Ondansetron HCl 4 mg Q4HP PRN IV 10/07/24 10:00 Nitroglycerin 0.4 mg Q5MINP PRN SL 10/07/24 10:00 Morphine Sulfate 2 mg Q30M PRN IV 10/07/24 10:00 Pantoprazole Sodium 40 mg DAILY IV 10/07/24 10:00 10/15/24 10:22 40 MG Aspirin 81 mg DAILY PO 10/08/24 10:00 10/15/24 10:22 81 MG Mexiletine HCl 150 mg TID GT 10/08/24 22:00 10/15/24 05:47 150 MG Acetaminophen 500 mg Q6HP PRN PO 10/08/24 22:30 10/09/24 21:26 500 MG Enteral Nutritional Formula 1,000 ml 55ML/HR GT 10/09/24 18:45 10/12/24 21:34 1,000 ML Phenylephrine HCl 80 mg/Sodium Chloride 250 ml @ 7.5 mls/hr Q24H IV 10/10/24 09:30 10/14/24 23:50 16.875 MLS/HR Ertapenem 1 gm/ Sodium Chloride 50 ml @ 100 mls/hr DAILY IV 10/10/24 20:00 10/15/24 10:22 100 MLS/HR Furosemide 20 mg BIDD IV 10/12/24 18:00 10/15/24 05:47 20 MG Esmolol HCl 250 ml @ 0 mls/hr Q0M IV 10/14/24 10:45 Heparin Sodium/ Dextrose 250 ml @ 11 mls/hr [id number] IV 10/15/24 13:30 laboratory and microbiology Laboratory Tests 10/15/24 03:09 Test 10/15/24 03:09 Range/Units Serum Glucose 70 L 74-106 mg/dL Assessment/Plan Plan/Recommendation ASSESSMENT: This is a 54-year old female who initially presented 10/07/2024 due to witnessed syncope. As per records and having spoke with family members (son/father), patient had collapsed in the kitchen as witnessed by nearby family members whom had initiated CPR. EMS had been called for further medical attention and upon their arrival reports indicate the patient had been found in ventricular fibrillation for which she was subsequently shocked by EMS and upon rhythm strip analysis of the event, rhythm itself does reveal evidence for what appears to be ventricular fibrillation requiring shock x 1 which upon ED arrival 12-lead electrocardiogram had revealed sinus rhythm at 84bpm, QRS of 96ms with a QTC interval of 495 ms. Upon ED arrival patient was intubated and initiated on Amiodarone infusion for rhythm management. Patient was later admitted to the ICU for close observation/management and had been noted to experience episodes of ventricular tachycardia that had degenerated into ventricular fibrillation resulting in cardiac arrest requiring initiation of CPR/ACLS protocol which the patient was subsequently shocked x 1 resulting in ROSC. Patient did undergo subsequent cardiac catheterization 10/08/2024 by Interventional Cardiology services revealing patent RICHMOND to LAD, patent SVG to obtuse marginal, proximal disease involving LAD and LCX. Echocardiogram 10/07/2024 had revealed a severely reduced LVEF function of 15-20%, dilated LV with severe global dysfunction, biatrial enlargement, moderate mitral insufficiency with mild to moderate aortic insufficiency. TTE itself had questioned potential presence of mitral ring and potential underlying component of mitral stenosis which subsequent RICHIE 10/08/2024 had revealed evidence of mitral ring with up to moderate mitral stenosis/mitral insufficiency in addition to moderate aortic insufficiency. Throughout course of present admission, patient has been furthermore noted to experience episodes of paroxysmal atrial fibrillation for which she has been maintained on anticoagulation for CVA prophylaxis. As the patient presented and was found to experience episodes of ventricular fibrillation requiring a total of 2 shocks, Electrophysiology services were later involved by Interventional Cardiology request to evaluate the patient for potential AICD implantation. Reported past medical history includes congenital heart disease, coronary artery disease status post previous bypass surgery Echocardiogram: (10/07/2024) revealed lvef 15-20% dilated LV severe global dysfunction mild RV dysfunction biatrial enlargement mild moderate MAC, moderate mitral regurg mild to moderate aortic regug (images of echo reviewed and questioned presence of mitral ring and also some component (moderate of Mitral stenosis) Cardiac Catheterization: (10/08/2024) revealed Patent RICHMOND to LAD; Patent SVG to obtuse marginal; LVEF of 20% with increased EDP; Proximal disease in LAD/LCX Transesophageal Echocardiogram (10/08/2024) revealed was performed: Consistent with severely reduced LVEF. Consistent with previously implanted Mitral ring, Up to moderate Mitral stenosis/Mitral Regurgitation and also Moderate Aortic insufficiency. Syncope, witnessed Cardiac arrest, status post ROSC Ventricular fibrillation, requiring shock x 2 Ventricular tachycardia with degeneration to ventricular fibrillation Systolic heart failure, severely reduced LV function of 15-20% Paroxysmal atrial fibrillation, currently sinus rhythm Coronary artery disease, s/p previous 2-V CABG Valvular heart disease, s/p previous mitral ring Beta-hemolytic group B streptococcus QRS < 120 milliseconds Secondary prevention ELECTROPHYSIOLOGY SUGGESTIONS FOR MANAGEMENT: Recognizing the above, patient herself benefits from undergoing AICD implantation for secondary prevention against sudden cardiac . As patient remains intubated on mechanical ventilation/sedation, benefits, risks, alternatives were discussed at length with the patient son who at this point would like to consider the matter further and discuss it with the patient father prior to proceeding with a decision. Therefore, will proceed with medical management during the interim and await tentative decision by family. Of note, patient was found to have leukocytosis which sputum culture had revealed evidence for beta-hemolytic group B streptococcus subsequently initiated on IV antibiotic therapy as managed by primary team. Blood cultures 10/07/2024 at this point reveal no growth to date. Recognizing evidence for acute infection, will request for infectious disease consultation/clearance prior to proceeding with potential plan of undergoing AICD implantation. To proceed with IV antibiotic therapy during the interim. Recognizing co-morbidities, long-term continuation of anticoagulation is advised for CVA prophylaxis of PAF. Proceed with Heparin infusion (for now). Proceed with IV Amiodarone infusion (for now). Proceed with Mexiletine (for now). To sustain potassium levels greater than 4.0. To sustain magnesium levels greater than 2.0. Proceed with close rate and rhythm surveillance during the interim. Remainder of cardiac management as per Interventional Cardiology services. Will proceed to follow from an EP perspective. GDMT for systolic heart failure as current conditions permit Proceed with close rate and rhythm surveillance Proceed with close hemodynamic surveillance Proceed with optimized blood pressure control Transfuse to sustain HGB level above 7.0 Sustain Magnesium level greater than 2.0 Sustain Potassium level greater than 4.0 Follow up renal function and electrolytes Management of ongoing concurrent medical conditions as per primary team Management of beta-hemolytic group B strep as per primary team/ID Management comorbidities as per primary team Management in the ICU Follow up infrastructure consultant recommendations Will proceed to follow from an EP perspective Further recommendations per clinical progression All available diagnostic labs, EKG's, and images were personally reviewed Patient's status, findings, and plan of care was reviewed and discussed with supervising physician Dr. Armstrong, who is in agreement with current plan of care. Plan of care discussed with and agreed upon by family / primary RN Prognosis: Guarded Thank you for allowing me to participate in the care of this patient. Further recommendations based on patients clinical course and progression, primary attending, and other consultants. Will continue to follow with primary attending. If you have any questions or concerns, please do not hesitate to contact me. A total of 75 minutes was spent reviewing the patient record, examining the patient, making a diagnostic and therapeutic plan, discussing this plan with medical personnel, following up on diagnostic studies and following the patient for clinical stability excluding any and all procedures. At least 50% of this time was spent in direct, [id number] contact. Plan discussed with: Other (Primary RN and Patient Son) Dietary Evaluation Review Comments: 1) TF Jevity 1.2Cal @ 55 ml/hr. x 24hr along with Pro-stat 1 pk daily. Start @ 20ml/hr, increase 10ml/hr Q4H until goal is reached. TF @ goal volume provides 1684 kcal (100% energy needs), 88 gm protein (100% protein needs), 1065 ml free water. 2) Water flush 100ml Q4H if allowed, adjust PRN 3) Advance to cardiac diet as medically feasible 4) Monitor NPO status, lab values, wt trend, I/O Expected Outcomes/Goals: To meet >75% estimated needs within 7 days Lab values to improve Fu 2-3 days Plan discussed with: Other (primary rn ) TUCKER CRUZ Oct 15, 2024 14:03
--- NOTE | 2024-10-15 15:42 | DVHPN2 ---
Progress Note - Dictate Date Seen: Oct 15, 2024 Has the PT tested + for MRSA If YES, has PT been informed?: No Medical Necessity Reason Pt with a Central, PICC or Fol: Yes vital signs Vital Sign Date Time Temp Pulse Resp B/P (MAP) Pulse Ox O2 Delivery O2 Flow Rate FiO2 10/15/24 15:17 81 18 91/55 (67) 96 30 10/15/24 07:30 97.9 208.2 10/15/24 06:00 Mechanical Ventilator+ Total Intake and Output 10/14/24 10/14/24 10/15/24 15:00 23:00 07:00 Intake Total 603.439 ml 589.627 ml 289.500 ml Output Total 1000 ml 1725 ml Balance 603.439 ml -410.373 ml -1435.500 ml medications Current Medications Medications Dose Ordered Sig/Liliam Route Start Time Stop Time Status Last Admin Dose Admin Midazolam HCl 50 ml @ 1 mls/hr Q24H IV 10/07/24 04:45 10/15/24 08:33 4 MLS/HR Fentanyl Citrate 250 ml @ 2.5 mls/hr Q24H IV 10/07/24 06:15 10/15/24 04:40 10 MLS/HR Ondansetron HCl 4 mg Q4HP PRN IV 10/07/24 10:00 Nitroglycerin 0.4 mg Q5MINP PRN SL 10/07/24 10:00 Morphine Sulfate 2 mg Q30M PRN IV 10/07/24 10:00 Pantoprazole Sodium 40 mg DAILY IV 10/07/24 10:00 10/15/24 10:22 40 MG Aspirin 81 mg DAILY PO 10/08/24 10:00 10/15/24 10:22 81 MG Mexiletine HCl 150 mg TID GT 10/08/24 22:00 10/15/24 14:34 150 MG Acetaminophen 500 mg Q6HP PRN PO 10/08/24 22:30 10/09/24 21:26 500 MG Enteral Nutritional Formula 1,000 ml 55ML/HR GT 10/09/24 18:45 10/12/24 21:34 1,000 ML Phenylephrine HCl 80 mg/Sodium Chloride 250 ml @ 7.5 mls/hr Q24H IV 10/10/24 09:30 10/15/24 14:34 16.875 MLS/HR Ertapenem 1 gm/ Sodium Chloride 50 ml @ 100 mls/hr DAILY IV 10/10/24 20:00 10/15/24 10:22 100 MLS/HR Furosemide 20 mg BIDD IV 10/12/24 18:00 10/15/24 05:47 20 MG Esmolol HCl 250 ml @ 0 mls/hr Q0M IV 10/14/24 10:45 Heparin Sodium/ Dextrose 250 ml @ 11 mls/hr [id number] IV 10/15/24 13:30 10/15/24 13:30 11 MLS/HR objective General Appearance: alert, no distress HEENT: EOMI, PERRLA, normal external inspect of ears, no icterus, no nasal drainage Neck: no carotid bruit, no jugular venous distention (JVD), no lymphadenopathy Chest: normal thorax Respiratory: clear to auscultation, normal air movement Cardiovascular: regular rate and rhythm, no diastolic murmur, no jugular venous distention (JVD), no rub, no systolic murmur Abdominal: soft, no hepatomegaly, no mass, no splenomegaly, no tenderness Genitourinary: grossly normal external Musculoskeletal: no joint tenderness, no swelling Extremities: normal pulses, no calf tenderness, no clubbing, no cyanosis, no edema Skin: no bruising, no jaundice, no rash Neurological: alert, No focal deficit laboratory and microbiology Laboratory Tests 10/15/24 03:09 Test 10/15/24 03:09 Range/Units Serum Glucose 70 L 74-106 mg/dL Problem List Cardiac Arrest with Ventricular Fibrillation Assessment: Patient experienced cardiac arrest with ventricular fibrillation on 10/07/24, witnessed by family members who initiated CPR. EMS found the patient in ventricular fibrillation and administered shock therapy. Rhythm strip analysis confirmed ventricular fibrillation. Patient required intubation and sedation upon ED arrival. Currently admitted to ICU for close observation. Cardiology has been consulted and plans for AICD placement, likely on Tuesday. Infectious disease clearance has been obtained for the AICD procedure, addressing initial concerns of leukocytosis which is now improving. Status post-cardiac arrest. Plan: - Continue ICU monitoring - Proceed with AICD placement as planned (likely Tuesday), cleared by infectious disease. - Maintain intubation and sedation until AICD placement - Continue Heparin drip for paroxysmal atrial fibrillation - Continue Mexitil - DC amiodarone due to transaminitis - added esmolol drip per Cardiology for AFib and added push doses of digoxin Coronary Artery Disease Assessment: Patient with history of 2-vessel CABG (Coronary Artery Bypass Grafting). Surgical intervention previously performed to address significant coronary artery stenosis. Plan: - Continue medical management - Follow up with cardiology for ongoing coronary artery disease management Acute and Chronic Systolic Heart Failure Assessment: Patient has acute and chronic systolic heart failure with severely reduced left ventricular function. Ejection fraction is estimated at 15-20%. RICHIE findings are consistent with severely reduced left ventricular ejection fraction, previously implanted mitral ring, up to moderate mitral stenosis and regurgitation, and moderate aortic insufficiency. Plan: - Continue cardiology consultation - continue IV diuretics (IV Lasix) - Monitor renal function Acute Hypoxic Respiratory Failure Assessment: Patient is currently intubated due to acute hypoxic respiratory failure. Dr. Downey from pulmonology is managing this aspect of care. Plan: - Maintain current intubation as per pulmonology recommendation - Proceed with CPAP trials when deemed appropriate by pulmonology Transaminitis Assessment: Patient has elevated liver function tests, likely secondary to amiodarone use. Cardiology has discontinued amiodarone in response. Plan: - Monitor liver function tests - Amiodarone discontinued as per cardiology Enterobacter PNA Assessment: Sputum culture positive for Enterobacter. Plan: - Continue treatment with Eratapenem to complete 10 days regimen -Infectious disease consult Hemodynamic Support Assessment: Patient requires vasopressor support for hemodynamic stability. Plan: - Continue vasopressin - Continue neosynephrine Paroxysmal a fib -DC amiodarone -continue with heparin gtt Assessment/Plan Subjective: Patient remains on the ventilator at 30% FiO? and 5 of PEEP. Objective: Patient was admitted status post cardiac arrest. Patient was found to be septic and also has pneumonia. Patient failed CPAP trial. Patient was scheduled for AICD today; however, she developed A-fib with RVR. Patient has elevated liver enzymes, most likely from amiodarone. Plan: Continue antibiotics for sepsis. Continue heparin drip per Cardiology. Continue antiarrhythmics and monitor EKG. Patient is currently in sinus rhythm in the 80s. Repeat Adoxa level ordered for a.m. Dietary Evaluation Review Comments: 1) TF Jevity 1.2Cal @ 55 ml/hr. x 24hr along with Pro-stat 1 pk daily. Start @ 20ml/hr, increase 10ml/hr Q4H until goal is reached. TF @ goal volume provides 1684 kcal (100% energy needs), 88 gm protein (100% protein needs), 1065 ml free water. 2) Water flush 100ml Q4H if allowed, adjust PRN 3) Advance to cardiac diet as medically feasible 4) Monitor NPO status, lab values, wt trend, I/O Expected Outcomes/Goals: To meet >75% estimated needs within 7 days Lab values to improve Fu 2-3 days Plan discussed with: Patient, Other BRODIE GARVIN [employer] COUNSELOR Oct 15, 2024 15:42
--- NOTE | 2024-10-15 18:04 | DVHPN2 ---
Progress Note - Dictate Date Seen: Oct 15, 2024 Has the PT tested + for MRSA If YES, has PT been informed?: No Medical Necessity Reason Pt with a Central, PICC or Fol: Yes vital signs Vital Sign Date Time Temp Pulse Resp B/P (MAP) Pulse Ox O2 Delivery O2 Flow Rate FiO2 10/15/24 17:00 98.6 80 21 105/61 (76) 99 209.5 10/15/24 16:00 Mechanical Ventilator+ 30 30 Total Intake and Output 10/14/24 10/14/24 10/15/24 15:00 23:00 07:00 Intake Total 603.439 ml 589.627 ml 289.500 ml Output Total 1000 ml 1725 ml Balance 603.439 ml -410.373 ml -1435.500 ml medications Current Medications Medications Dose Ordered Sig/Liliam Route Start Time Stop Time Status Last Admin Dose Admin Midazolam HCl 50 ml @ 1 mls/hr Q24H IV 10/07/24 04:45 10/15/24 08:33 4 MLS/HR Fentanyl Citrate 250 ml @ 2.5 mls/hr Q24H IV 10/07/24 06:15 10/15/24 04:40 10 MLS/HR Ondansetron HCl 4 mg Q4HP PRN IV 10/07/24 10:00 Nitroglycerin 0.4 mg Q5MINP PRN SL 10/07/24 10:00 Morphine Sulfate 2 mg Q30M PRN IV 10/07/24 10:00 Pantoprazole Sodium 40 mg DAILY IV 10/07/24 10:00 10/15/24 10:22 40 MG Aspirin 81 mg DAILY PO 10/08/24 10:00 10/15/24 10:22 81 MG Mexiletine HCl 150 mg TID GT 10/08/24 22:00 10/15/24 14:34 150 MG Acetaminophen 500 mg Q6HP PRN PO 10/08/24 22:30 10/09/24 21:26 500 MG Enteral Nutritional Formula 1,000 ml 55ML/HR GT 10/09/24 18:45 10/12/24 21:34 1,000 ML Phenylephrine HCl 80 mg/Sodium Chloride 250 ml @ 7.5 mls/hr Q24H IV 10/10/24 09:30 10/15/24 14:34 16.875 MLS/HR Ertapenem 1 gm/ Sodium Chloride 50 ml @ 100 mls/hr DAILY IV 10/10/24 20:00 10/15/24 10:22 100 MLS/HR Furosemide 20 mg BIDD IV 10/12/24 18:00 10/15/24 05:47 20 MG Esmolol HCl 250 ml @ 0 mls/hr Q0M IV 10/14/24 10:45 Heparin Sodium/ Dextrose 250 ml @ 11 mls/hr [id number] IV 10/15/24 13:30 10/15/24 13:30 11 MLS/HR laboratory and microbiology Laboratory Tests 10/15/24 03:09 Test 10/15/24 03:09 Range/Units Serum Glucose 70 L 74-106 mg/dL Assessment/Plan s/p cardiac arrest VT CPR <5 min elevated troponin acute resp failure atelectases pt seen and examined on the ICU events off sedation on mechanical ventilation PEEP 5, FiO2 30% frequent arrhythmias extubation risky at this point awaiting ICD placement management plan daily sedation holidays ok to use precedex cont abx monitor cx monitor labs renal function daily abg and CXR dvt proph/on heparin drip awaiting pacemaker placement f/u cardiology crit care time 35 min Dietary Evaluation Review Comments: 1) TF Jevity 1.2Cal @ 55 ml/hr. x 24hr along with Pro-stat 1 pk daily. Start @ 20ml/hr, increase 10ml/hr Q4H until goal is reached. TF @ goal volume provides 1684 kcal (100% energy needs), 88 gm protein (100% protein needs), 1065 ml free water. 2) Water flush 100ml Q4H if allowed, adjust PRN 3) Advance to cardiac diet as medically feasible 4) Monitor NPO status, lab values, wt trend, I/O Expected Outcomes/Goals: To meet >75% estimated needs within 7 days Lab values to improve Fu 2-3 days Plan discussed with: Other (rn) BELLO ROTHMAN MD Oct 15, 2024 18:04
--- NOTE | 2024-10-15 18:42 | DVHPN2 ---
Progress Note Date Seen: Oct 15, 2024 Resident Creating Document: SHANKAR VALDEZ RESIDENT Has the PT tested + for MRSA If YES, has PT been informed?: No Medical Necessity Reason Pt with a Central, PICC or Fol: Yes Subjective Review of Systems The patient remains intubated in the ICU. She is being followed by GI for management of elevated liver enzymes and nutritional support. Hemoglobin has improved and stabilized at 10.2. Coagulation profile PT INR are normal and APTT is prolonged 75.2 secondary to heparin drip. LFTs are downtrending and improving. Digoxin level elevated at 2.83, and therefore the scheduled pacemaker procedure has been postponed until Tuesday. OG tube residuals at 180 mL. Last bowel movement unknown, patient has no recent bowel activity. Objective vital signs Vital Sign Date Time Temp Pulse Resp B/P (MAP) Pulse Ox O2 Delivery O2 Flow Rate FiO2 10/15/24 18:10 96/50 10/15/24 17:30 77 18 99 30 10/15/24 17:00 98.6 209.5 10/15/24 16:00 Mechanical Ventilator+ Total Intake and Output 10/14/24 10/14/24 10/15/24 15:00 23:00 07:00 Intake Total 603.439 ml 589.627 ml 289.500 ml Output Total 1000 ml 1725 ml Balance 603.439 ml -410.373 ml -1435.500 ml medications Current Medications Medications Dose Ordered Sig/Liliam Route Start Time Stop Time Status Last Admin Dose Admin Midazolam HCl 50 ml @ 1 mls/hr Q24H IV 10/07/24 04:45 10/15/24 08:33 4 MLS/HR Fentanyl Citrate 250 ml @ 2.5 mls/hr Q24H IV 10/07/24 06:15 10/15/24 04:40 10 MLS/HR Ondansetron HCl 4 mg Q4HP PRN IV 10/07/24 10:00 Nitroglycerin 0.4 mg Q5MINP PRN SL 10/07/24 10:00 Morphine Sulfate 2 mg Q30M PRN IV 10/07/24 10:00 Pantoprazole Sodium 40 mg DAILY IV 10/07/24 10:00 10/15/24 10:22 40 MG Aspirin 81 mg DAILY PO 10/08/24 10:00 10/15/24 10:22 81 MG Mexiletine HCl 150 mg TID GT 10/08/24 22:00 10/15/24 14:34 150 MG Acetaminophen 500 mg Q6HP PRN PO 10/08/24 22:30 10/09/24 21:26 500 MG Enteral Nutritional Formula 1,000 ml 55ML/HR GT 10/09/24 18:45 10/12/24 21:34 1,000 ML Phenylephrine HCl 80 mg/Sodium Chloride 250 ml @ 7.5 mls/hr Q24H IV 10/10/24 09:30 10/15/24 14:34 16.875 MLS/HR Ertapenem 1 gm/ Sodium Chloride 50 ml @ 100 mls/hr DAILY IV 10/10/24 20:00 10/15/24 10:22 100 MLS/HR Furosemide 20 mg BIDD IV 10/12/24 18:00 10/15/24 18:10 20 MG Esmolol HCl 250 ml @ 0 mls/hr Q0M IV 10/14/24 10:45 Heparin Sodium/ Dextrose 250 ml @ 11 mls/hr [id number] IV 10/15/24 13:30 10/15/24 13:30 11 MLS/HR Examination Examination: GENERAL:Normal, LUNGS:Abnormal (diminished on ventillator ), ABDOMEN:Normal, SKIN:Normal, NEURO:Normal laboratory and microbiology Laboratory Tests 10/15/24 03:09 Test 10/15/24 03:09 Range/Units Serum Glucose 70 L 74-106 mg/dL Microbiology Date/Time Source Procedure Growth Status 10/13/24 11:00 Sputum Endotracheal Wash Gram Stain - Final Resulted 10/13/24 11:00 Sputum Endotracheal Wash Respiratory Culture - Preliminary Resulted 10/09/24 08:49 Blood Blood Culture - Final NO GROWTH AFTER 5 DAYS OF INCUBATION. Complete 10/07/24 16:50 Nose MRSA Screen - Final Complete Problem List/Assessment/Plan Problem List/Assessment/Plan Acute hepatocellular injury most likely SHOCK LIVER RATHER THAN AMIODARONE INDUCED HEPATOTOXICITY NAFLD with steatohepatitis Cholelithiasis without acute inflammation Plan/Recommendation Plan Hepatic / GI * Continue to trend LFTs, INR, albumin daily * Avoid all hepatotoxic medications amiodarone documented as causing hepatotoxicity * Monitor for signs of acute liver failure (AMS, INR >1.5, hypoglycemia) * Maintain hemodynamic stability to optimize hepatic perfusion. Continue protonix Nutrition START CLINIMIX TPN VIA IV TODAY. START MIRALAX 17 G VIA G-TUBE ONCE FOR CONSTIPATION. * Continue current enteral feeding via GT at 55 mL/hr (1.2 Ron/Fiber formula) * Monitor tolerance, bowel function, and risk for aspiration * Check nutrition labs (albumin, prealbumin weekly) Gallstones * Cholelithiasis without acute inflammation no surgical intervention needed at present * Outpatient surgical evaluation if future biliary symptoms occur Coagulopathy * Mild INR elevation, likely multifactorial (acute liver injury + anticoagulation) * Continue monitoring; vitamin K if INR worsens or bleeding occurs Infection Control (GI-relevant) * Continue current antibiotic therapy: Ertapenem 1 g IV daily (for non-GI infection per primary/ID) * Monitor for secondary biliary sepsis; repeat RUQ ultrasound if bilirubin rises or leukocytosis worsens Case discussed in detail with the attending physician, including the clinical presentation, diagnostic workup, and comprehensive management plan. Plan discussed with: Other (RN) My Orders My Orders Orders - SHANKAR VALDEZ RESIDENT Procedure Category Date Status Time Clinimix Per Pharmacy [facility] 10/15/24 Verified 18:45 Polyethylene Glycol PHA 10/15/24 Verified 17g Powder (Miralax 18:45 Dietary Evaluation Review Comments: 1) TF Jevity 1.2Cal @ 55 ml/hr. x 24hr along with Pro-stat 1 pk daily. Start @ 20ml/hr, increase 10ml/hr Q4H until goal is reached. TF @ goal volume provides 1684 kcal (100% energy needs), 88 gm protein (100% protein needs), 1065 ml free water. 2) Water flush 100ml Q4H if allowed, adjust PRN 3) Advance to cardiac diet as medically feasible 4) Monitor NPO status, lab values, wt trend, I/O Expected Outcomes/Goals: To meet >75% estimated needs within 7 days Lab values to improve Fu 2-3 days SHANKAR VALDEZ RESIDENT Oct 15, 2024 18:42
[2024-10-15] MEDS ORDERED: CLINIMIX PER PHARMACY 0 ML IV SCH (18:45)
[2024-10-15 20:32] LABS: INR 1.14 (0.9-1.15); Partial Thromboplastin Time 40.2 SEC (24.5-34.5); Prothrombin Time 11.9 sec (9.3-11.8)
[2024-10-15] MEDS: POLYETHYLENE GLYCOL 17 GM PWDR GT ONE (20:59)
[2024-10-15] MEDS: AMINO ACID INFUSION IN D10W 1,000 ML IV ONE (21:26)
[2024-10-16] VITALS (110 sets, daily range): BP systolic 85–140; BP diastolic 48–71; PULSE 77–104; RESP 13–83; TEMP 98.6–99.7; O2SAT 98–100
[2024-10-16 03:39] LABS: Hematocrit 32.4 % (36.0-46.0); Hemoglobin 10.7 g/dL (12.2-16.2); Mean Corpuscular Hemoglobin 30.7 pg (28.0-32.0); Mean Corpuscular Volume 92.9 fL (80.0-100.0)
[2024-10-16 03:50] LABS: Triglycerides 139.0 mg/dL (< 150)
[2024-10-16 03:51] LABS: Magnesium 1.9 mg/dL (1.6-2.6)
[2024-10-16 03:53] LABS: Alanine Aminotransferase 38 U/L (7-40); Anion Gap 12 (5-15); BUN/Creatinine Ratio 13.1 (10.0-20.0); Blood Urea Nitrogen 11 mg/dL (9-23); Carbon Dioxide 24 mmol/L (20-31); Chloride 100 mmol/L (98-107)
[2024-10-16 03:54] LABS: Bilirubin, Total 0.8 mg/dL (0.2-1.0)
[2024-10-16 04:03] LABS: Albumin 2.8 g/dL (3.2-4.8); Alkaline Phosphatase 128 U/L (46-116); Calcium 8.2 mg/dL (8.7-10.4); Glucose 113 mg/dL (74-106); Potassium 3.3 mmol/L (3.5-5.1); Sodium 136 mmol/L (136-145); Total Protein 5.6 g/dL (5.7-8.2)
[2024-10-16] MEDS: HEPARIN DRIP/D5W 100UNITS/ML 250 ML IV SCH (04:15)
[2024-10-16 04:34] LABS: Total Cells Counted 100.0 (100)
[2024-10-16 04:35] LABS: Polychromasia Slight; Tear Drop Cells FEW
[2024-10-16] MEDS: POTASSIUM CHL 20MEQ/100ML 100 ML IV SCH (06:49)
--- NOTE | 2024-10-16 07:22 | DVHPN2 ---
Progress Note - Dictate Date Seen: Oct 16, 2024 Has the PT tested + for MRSA If YES, has PT been informed?: No Medical Necessity Reason Pt with a Central, PICC or Fol: Yes vital signs Vital Sign Date Time Temp Pulse Resp B/P (MAP) Pulse Ox O2 Delivery O2 Flow Rate FiO2 10/16/24 06:45 99.3 81 19 114/62 (79) 100 210.7 10/16/24 06:12 30 10/16/24 06:00 Mechanical Ventilator+ Total Intake and Output 10/15/24 10/15/24 10/16/24 15:00 23:00 07:00 Intake Total 339.000 ml 525.004 ml 708.941 ml Output Total 1000 ml 1325 ml Balance 339.000 ml -474.996 ml -616.059 ml medications Current Medications Medications Dose Ordered Sig/Liliam Route Start Time Stop Time Status Last Admin Dose Admin Midazolam HCl 50 ml @ 1 mls/hr Q24H IV 10/07/24 04:45 10/15/24 22:10 4 MLS/HR Fentanyl Citrate 250 ml @ 2.5 mls/hr Q24H IV 10/07/24 06:15 10/16/24 00:45 15 MLS/HR Ondansetron HCl 4 mg Q4HP PRN IV 10/07/24 10:00 Nitroglycerin 0.4 mg Q5MINP PRN SL 10/07/24 10:00 Morphine Sulfate 2 mg Q30M PRN IV 10/07/24 10:00 Pantoprazole Sodium 40 mg DAILY IV 10/07/24 10:00 10/15/24 10:22 40 MG Aspirin 81 mg DAILY PO 10/08/24 10:00 10/15/24 10:22 81 MG Mexiletine HCl 150 mg TID GT 10/08/24 22:00 10/16/24 05:43 150 MG Acetaminophen 500 mg Q6HP PRN PO 10/08/24 22:30 10/09/24 21:26 500 MG Enteral Nutritional Formula 1,000 ml 55ML/HR GT 10/09/24 18:45 10/12/24 21:34 1,000 ML Phenylephrine HCl 80 mg/Sodium Chloride 250 ml @ 7.5 mls/hr Q24H IV 10/10/24 09:30 10/16/24 02:00 21.563 MLS/HR Ertapenem 1 gm/ Sodium Chloride 50 ml @ 100 mls/hr DAILY IV 10/10/24 20:00 10/15/24 10:22 100 MLS/HR Furosemide 20 mg BIDD IV 10/12/24 18:00 10/15/24 18:10 20 MG Esmolol HCl 250 ml @ 0 mls/hr Q0M IV 10/14/24 10:45 Amino Acids 0 ml @ 0 mls/hr PER PHARMACY IV 10/15/24 18:45 UNV Heparin Sodium/ Dextrose 250 ml @ 13 mls/hr [id number] IV 10/16/24 04:15 Magnesium Sulfate/ Dextrose 100 ml @ 100 mls/hr Q1HR IV 10/16/24 07:00 10/16/24 08:59 Potassium Chloride 100 ml @ 50 mls/hr Q2H IV 10/16/24 06:30 10/16/24 10:29 10/16/24 06:49 50 MLS/HR laboratory and microbiology Laboratory Tests 10/16/24 02:40 Test 10/16/24 02:40 Range/Units Serum Glucose 113 H 74-106 mg/dL Assessment/Plan Patient is a 54-year-old female who was brought to the hospital for witnessed syncope. She is intubated and is being managed in ICU. Information was obtained by reviewing the chart and communicating with patient's son (over the phone). Family recognized witnessed syncope and started CPR and called EMS. Reportedly, EMS found the patient in ventricular fibrillation and shocked the patient and brought the patient to the hospital. Patient was intubated in emergency room and transferred to ICU. Patient was on amiodarone drip. Later the patient had ventricular tachycardia (Systane). High sensitive troponin had been minimally/flatly elevated. Presentation was not in favor of acute coronary syndrome. Cardiology is involved for cardiac aspects of care. Intubated. Noncommunicative. No JVD. Mucosa pale. No carotid bruit. Scattered rhonchi in the lungs is heard. Cardiac: Regular, no thrill. Systolic murmur 2/6 in apex is heard. Abdomen is soft. No edema in extremities. Past medical history as per son: Congenital heart disease, status post bypass WBC: 14.5 - 11.9 - 18.8 - 20.0 - 21.2 - 14.3 - 10.3 - 8.9 - 9.2 - 11.1 - 12.1 Hemoglobin: 10.1 - 9.6 - 9.2 - 8.8 - 8.7 - 8.0 - 8.3 - 8.5 - 7.8 - 10.2 - 10.7 Creatinine: 0.95 - 0.93 - 0.87 - 0.83 - 0.83 - 0.76 - 0.68 - 0.72 - 0.79 - 0.76 - 0.80 - 0.84 Potassium: 3.4 - 4.0 - 4.6 - 3.5 - 3.3 - 4.1 - 3.7 - 3.2 - 3.7 - 4.0 - 3.2 - 3.4 - 3.9 - 4.2 - 3.3 Magnesium: 2.0 - 1.6 - 2.0 - 3.0 - 1.5 - 1.9 - 2.1 - 1.8 - 2.0 - 1.9 - 1.9 Troponin (high sensitive): 141 - 138 - 117 BNP: 457.16 AST/ALT: 32/11 - 19/13 - 538/168 - 293/152 - 131/130 - 78/94 - 68/74 - 48/57 - 27/38 Digoxin level: 2.83 - 1.25 UDS: non-revealing Chest x-ray revealed: Lines and Tubes: Endotracheal tube tip projects approximately 1.4 cm above the level of the tyler. Enteric catheter courses below the lateral of the diaphragm and terminates beyond the inferior margin of the image. Right internal jugular central venous catheter terminates within the distal superior vena cava. Lungs: Moderate diffuse increased prominence of the pulmonary vasculature without evidence of focal consolidation. Pleura: No effusion. No pneumothorax. Cardiomediastinal contours: Cardiomegaly. Bones: Unremarkable IMPRESSION: 1. Cardiomegaly and diffuse increased prominence of the pulmonary vasculature. 2. Lines and tubes as above. Repeat chest x-ray revealed: IMPRESSION: 1. Endotracheal tube tip 1.6 cm above the tyler; consider 2 cm retraction 2. Mild pulmonary vascular congestion. Moderate cardiomegaly. Repeat chest xry revealed: IMPRESSION: Endotracheal tube tip 1.6 cm above the tyler; consider 2 cm retraction Mild pulmonary vascular congestion. Moderate cardiomegaly. Repeat chest xry revealed: IMPRESSION: 1. Stable cardiomegaly, small left pleural effusion and mild diffuse increased prominence of the pulmonary vasculature. 2. Repositioned endotracheal tube as above. Remaining lines and tubes unchanged. Repeat chest xry revealed: IMPRESSION: 1. Cardiomegaly, stable diffuse increased prominence of the pulmonary vasculature and small bilateral pleural effusions. 2. Slight interval advancement of endotracheal tube as above. Remaining lines and tubes unchanged. Repeat chest xry revealed: IMPRESSION: 1. Slight interval decrease in diffuse increased prominence of the pulmonary vasculature. 2. Stable cardiomegaly and small left pleural effusion. 3. Lines and tubes unchanged. Repeat chest xry revealed: IMPRESSION: 1. Cardiomegaly and small left pleural effusion. 2. Lines and tubes unchanged. Repeat chest xry revealed: IMPRESSION: Stable lines and tubes. Similar lung aeration. Repeat chest xry revealed: IMPRESSION: Cardiomegaly and small left pleural effusion. Lines and tubes unchanged. Left upper ext arterial duplex: IMPRESSION: No hemodynamically significant stenosis based on peak systolic velocity criteria. Left lower ext arterial duplex: IMPRESSION: There is no evidence for peripheral vascular insufficiency in the left lower extremity. No significant focal stenosis is identified. Liver Ultrasound revealed: Hepatic steatosis. Hepatomegaly. Cholelithiasis. CT of the head revealed: IMPRESSION: No acute intracranial abnormality. Repeat CT of head revealed: IMPRESSION: No acute intracranial abnormality. Echocardiogram reported: lvef 15-20% dilated LV severe global dysfunction mild RV dysfunction biatrial enlargement mild moderate MAC, moderate mitral regurg mild to moderate aortic regug (images of echo reviewed and questioned presence of mitral ring and also some component (moderate of Mitral stenosis) EKG revealed sinus rhythm Telemetry revealed occasions of atrial fibrillation. There was occasional sustained ventricular tachycardia. EMS tele monitor revealed ventricular fibrillation for which the patient was shocked. Has remained sinus rhythm. Later with A-fib with MVR LHC revealed: Patent RICHMOND to LAD; Patent SVG to obtuse marginal; LVEF of 20% with increased EDP; Proximal disease in LAD/LCX RICHIE was performed: Consistent with severely reduced LVEF. Consistent with previously implanted Mitral ring, Up to moderate Mitral stenosis/Mitral Regurgitation and also Moderate Aortic insufficiency. Patient is a 54-year-old female who presented with witnessed syncope. She was found to have ventricular fibrillation for which was shocked. Later had repeated episode of sustained ventricular tachycardia. Patient has been kept in ICU. Does have baseline history of coronary artery disease for which has had bypass surgery. Left heart catheterization was performed which revealed patent RICHMOND and patent SVG. ACS is not considered at this point. It is of note that the patient's echocardiogram reveals significantly use systolic function. Valvular heart disease is considered. Findings are in favor of previously implanted mitral ring. By reviewing the echo images, component of up to moderate mitral stenosis could not be ruled out. LHC was performed that ruled out any active specific ischemia as an etiology for presentation. Is off Amiodarone for abnormal LFT. Being followed by Nephrology / Pulmonary / Neurology / GI ID. Tele has remained sinus rhythm. Had episode of a-fib with RVR. Was loaded with Digoxin. Dig level was performed at wrong timing (only 5 hours after the last Dig given). Dig toxicity is not considered. Patient is back to normal sinus rhythm. Has good kidney function. Repeat Dig level is acceptable level. Syncope V-fib s/p shock Sustained V-tach Paroxysmal A-fib VHD, s/p Mitral ring Systolic heart failure Abnormal LFT Cardiac suggestion for management: Manage in ICU Follow up electrolytes and kidney function test and correct abnormalities Full anticoagulation (a-fib with high CHADS-Vasc score). On Heparin drip for now Off Amio drip (worsened LFT) (personally discussed with EP: Dr Armstrong who advised to stop / not to restart Amiodarone) On Mexiletine If need for pressure support: use Phenyl Ephrine May consider Esmolol for PVC/Vtach EP Following ICD implantation as per EP Pulmonary Follow up Provide previous medical records from reaching out to previous hospitals in [facility]... Further evaluation and management depends on the above and clinical course. A total of 75 minutes was spent reviewing the patient record, examining the patient, making a diagnostic and therapeutic plan, discussing this plan with medical personnel, following up on diagnostic studies and following the patient for clinical stability excluding any and all procedures. At least 50% of this time was spent in direct, [id number] contact. Thank you for allowing me to participate in this patient's care. Further recommendations will depend on patient's clinical course. Please do not hesitate to contact me if you have any questions or concerns. This medical document was created using electronic medical record system with [employer] dictation system. Although this document has been carefully reviewed, there may still be some phonetic and typographical errors. These areas are purely typographical due to the imperfection of the software programs, and do not reflect any compromise in the patient's medical care. Dietary Evaluation Review Comments: 1) TF Jevity 1.2Cal @ 55 ml/hr. x 24hr along with Pro-stat 1 pk daily. Start @ 20ml/hr, increase 10ml/hr Q4H until goal is reached. TF @ goal volume provides 1684 kcal (100% energy needs), 88 gm protein (100% protein needs), 1065 ml free water. 2) Water flush 100ml Q4H if allowed, adjust PRN 3) Advance to cardiac diet as medically feasible 4) Monitor NPO status, lab values, wt trend, I/O Expected Outcomes/Goals: To meet >75% estimated needs within 7 days Lab values to improve Fu 2-3 days Plan discussed with: Other (nurse) CORDELL VERA MD Oct 16, 2024 07:22
--- NOTE | 2024-10-16 07:47 | ECG ---
[facility] Test Date: 2024-10-16 Test Time: 06:30:07 Pat Name: CLAIRE OLIVO Department: ICU Room: [address] [place] [address] A Gender: F House Manager: JAY : 1970 Requested By: TUCKER CRUZ Order Number: [id number] Reading MD: Marito Skelton Measurements Intervals [place] Rate: 81 P: -82 ND: 147 QRS: 111 QRSD: 163 T: 53 QT: 497 QTc: 577 Interpretive Statements Sinus or ectopic atrial rhythm Nonspecific intraventricular conduction delay Baseline wander in lead(s) V6 Electronically Signed On 10-16-2024 22:55:45 PDT by Marito Skelton Please click the below link to view image of tracing.
--- NOTE | 2024-10-16 09:03 | DVHPN2 ---
Progress Note - Dictate Date Seen: Oct 16, 2024 Has the PT tested + for MRSA If YES, has PT been informed?: No Medical Necessity Reason Pt with a Central, PICC or Fol: Yes vital signs Vital Sign Date Time Temp Pulse Resp B/P (MAP) Pulse Ox O2 Delivery O2 Flow Rate FiO2 10/16/24 08:29 80 10/16/24 08:13 20 110/62 (78) 100 30 10/16/24 08:00 Mechanical Ventilator+ 10/16/24 06:45 99.3 210.7 Total Intake and Output 10/15/24 10/15/24 10/16/24 15:00 23:00 07:00 Intake Total 339.000 ml 525.004 ml 708.941 ml Output Total 1000 ml 1325 ml Balance 339.000 ml -474.996 ml -616.059 ml medications Current Medications Medications Dose Ordered Sig/Liliam Route Start Time Stop Time Status Last Admin Dose Admin Midazolam HCl 50 ml @ 1 mls/hr Q24H IV 10/07/24 04:45 10/15/24 22:10 4 MLS/HR Fentanyl Citrate 250 ml @ 2.5 mls/hr Q24H IV 10/07/24 06:15 10/16/24 00:45 15 MLS/HR Ondansetron HCl 4 mg Q4HP PRN IV 10/07/24 10:00 Nitroglycerin 0.4 mg Q5MINP PRN SL 10/07/24 10:00 Morphine Sulfate 2 mg Q30M PRN IV 10/07/24 10:00 Pantoprazole Sodium 40 mg DAILY IV 10/07/24 10:00 10/15/24 10:22 40 MG Aspirin 81 mg DAILY PO 10/08/24 10:00 10/15/24 10:22 81 MG Mexiletine HCl 150 mg TID GT 10/08/24 22:00 10/16/24 05:43 150 MG Acetaminophen 500 mg Q6HP PRN PO 10/08/24 22:30 10/09/24 21:26 500 MG Enteral Nutritional Formula 1,000 ml 55ML/HR GT 10/09/24 18:45 10/12/24 21:34 1,000 ML Phenylephrine HCl 80 mg/Sodium Chloride 250 ml @ 7.5 mls/hr Q24H IV 10/10/24 09:30 10/16/24 02:00 21.563 MLS/HR Ertapenem 1 gm/ Sodium Chloride 50 ml @ 100 mls/hr DAILY IV 10/10/24 20:00 10/15/24 10:22 100 MLS/HR Furosemide 20 mg BIDD IV 10/12/24 18:00 10/15/24 18:10 20 MG Esmolol HCl 250 ml @ 0 mls/hr Q0M IV 10/14/24 10:45 Amino Acids 0 ml @ 0 mls/hr PER PHARMACY IV 10/15/24 18:45 UNV Heparin Sodium/ Dextrose 250 ml @ 13 mls/hr [id number] IV 10/16/24 04:15 Potassium Chloride 100 ml @ 50 mls/hr Q2H IV 10/16/24 06:30 10/16/24 10:29 10/16/24 06:49 50 MLS/HR objective General Appearance: alert, no distress HEENT: EOMI, PERRLA, normal external inspect of ears, no icterus, no nasal drainage Neck: no carotid bruit, no jugular venous distention (JVD), no lymphadenopathy Chest: normal thorax Respiratory: clear to auscultation, normal air movement Cardiovascular: regular rate and rhythm, no diastolic murmur, no jugular venous distention (JVD), no rub, no systolic murmur Abdominal: soft, no hepatomegaly, no mass, no splenomegaly, no tenderness Genitourinary: grossly normal external Musculoskeletal: no joint tenderness, no swelling Extremities: normal pulses, no calf tenderness, no clubbing, no cyanosis, no edema Skin: no bruising, no jaundice, no rash Neurological: alert, No focal deficit laboratory and microbiology Laboratory Tests 10/16/24 02:40 Test 10/16/24 02:40 Range/Units Serum Glucose 113 H 74-106 mg/dL Problem List Cardiac Arrest with Ventricular Fibrillation Assessment: Patient experienced cardiac arrest with ventricular fibrillation on 10/07/24, witnessed by family members who initiated CPR. EMS found the patient in ventricular fibrillation and administered shock therapy. Rhythm strip analysis confirmed ventricular fibrillation. Patient required intubation and sedation upon ED arrival. Currently admitted to ICU for close observation. Cardiology has been consulted and plans for AICD placement, likely on Tuesday. Infectious disease clearance has been obtained for the AICD procedure, addressing initial concerns of leukocytosis which is now improving. Status post-cardiac arrest. Plan: - Continue ICU monitoring - Proceed with AICD placement as planned (likely Tuesday), cleared by infectious disease. - Maintain intubation and sedation until AICD placement - Continue Heparin drip for paroxysmal atrial fibrillation - Continue Mexitil - DC amiodarone due to transaminitis - added esmolol drip per Cardiology for AFib and added push doses of digoxin Coronary Artery Disease Assessment: Patient with history of 2-vessel CABG (Coronary Artery Bypass Grafting). Surgical intervention previously performed to address significant coronary artery stenosis. Plan: - Continue medical management - Follow up with cardiology for ongoing coronary artery disease management Acute and Chronic Systolic Heart Failure Assessment: Patient has acute and chronic systolic heart failure with severely reduced left ventricular function. Ejection fraction is estimated at 15-20%. RICHIE findings are consistent with severely reduced left ventricular ejection fraction, previously implanted mitral ring, up to moderate mitral stenosis and regurgitation, and moderate aortic insufficiency. Plan: - Continue cardiology consultation - continue IV diuretics (IV Lasix) - Monitor renal function Acute Hypoxic Respiratory Failure Assessment: Patient is currently intubated due to acute hypoxic respiratory failure. Dr. Downey from pulmonology is managing this aspect of care. Plan: - Maintain current intubation as per pulmonology recommendation - Proceed with CPAP trials when deemed appropriate by pulmonology Transaminitis Assessment: Patient has elevated liver function tests, likely secondary to amiodarone use. Cardiology has discontinued amiodarone in response. Plan: - Monitor liver function tests - Amiodarone discontinued as per cardiology Enterobacter PNA Assessment: Sputum culture positive for Enterobacter. Plan: - Continue treatment with Eratapenem to complete 10 days regimen -Infectious disease consult Hemodynamic Support Assessment: Patient requires vasopressor support for hemodynamic stability. Plan: - Continue vasopressin - Continue neosynephrine Paroxysmal a fib -DC amiodarone -continue with heparin gtt Assessment/Plan Subjective: Patient remains on the ventilator. Objective: Patient was admitted status postcardiac arrest and CPR. Patient found to have pneumonia. Patient is scheduled for AICD placement tomorrow. I did update patient's son Amanuel in regards to plan of care. Patient has elevated liver enzymes most likely related to amiodarone. Plan: Continue current treatment for pneumonia. Patient was cleared for procedure by ID. Monitor EKG. Dietary Evaluation Review Comments: 1) TF Jevity 1.2Cal @ 55 ml/hr. x 24hr along with Pro-stat 1 pk daily. Start @ 20ml/hr, increase 10ml/hr Q4H until goal is reached. TF @ goal volume provides 1684 kcal (100% energy needs), 88 gm protein (100% protein needs), 1065 ml free water. 2) Water flush 100ml Q4H if allowed, adjust PRN 3) Advance to cardiac diet as medically feasible 4) Monitor NPO status, lab values, wt trend, I/O Expected Outcomes/Goals: To meet >75% estimated needs within 7 days Lab values to improve Fu 2-3 days Plan discussed with: Patient, Other BRODIE GARVIN NP Oct 16, 2024 09:03
[2024-10-16] MEDS: MAGNESIUM SULFATE 1GM/100ML 100 ML IV SCH (09:09)
[2024-10-16] MEDS ORDERED: DEXTROSE (50%) 50ML SYRG IV SCH (09:30)
--- NOTE | 2024-10-16 10:44 | DVHPN2 ---
Progress Note - Dictate Date Seen: Oct 16, 2024 Has the PT tested + for MRSA If YES, has PT been informed?: No Medical Necessity Reason Pt with a Central, PICC or Fol: Yes Subjective Ms. Smith is a 54 years old female who was brought to the [facility] on 10/07/2024 with a chief complaint of cardiopulmonary arrest/status post CPR. I have seen and examined the patient, I have discussed with her nurse, she is intubated, sedated, responsive to light painful stimuli, possibly to touch as well. Fentanyl 150 mcg/hour, Versed 4 mg/hour, Neosyn 90 mcg/min Blood culture, 10/09/2024: UDS, 10/07/2024: Negative Urinalysis, 10/07/2024: Leukocyte esterase: Negative WBC/HB/PLT/MCV, 10/09/2024: 20/8.8/219/94.6, 10/10/2024: 21.2/8.7/232/92.2 PT/INR/PTT, 10/08/2024: 12.4/1.19/72.7, 10/09/2024: 13.1/1.26/68.9, 10/10/2024: 14.4/2/1.38/35.3 CMP, 10/08/2024: Unremarkable Troponin one high sensitivity, 10/07/2024: 141, 138, 117 TBI/AST/ALT/AP, 10/10/2024: 0.5/538/168/144, 10/11/2024: 0.6/293/199/152, 10/14/2024: 0.8/68/74/124 TG/HDL/LDL/HDL, 10/07/24: 71/66/31/21 Echocardiogram, 10/07/2024: lvef 15-20% dilated LV severe global dysfunction mild RV dysfunction biatrial enlargement mild moderate MAC, moderate mitral regurg mild to moderate aortic regug RICHIE, 10/08/2024: 1. Left ventricle: Dilated LV was seen. LVEF was 25%. There was diffuse hypokinesis of left ventricle. 2. Right ventricle: RV was mildly dilated. 3. Left atrium: LA enlarged 4. Right atrium: RA was enlarged. 5. Mitral valve: Mitral was thickened with reduced opening. Moderate Mitral regurgitation was seen. Planinomentry of valve (TTE images also obtained) revealed MVA of 2.1 cm. Mean pressure gradient (obtained from limited TTE images) was 5. Images are consistent with previously implanted Ring in Mitral position. Consistent with up to Moderate Mitral stenosis. . There was no vegetation 6. Left atrial appendage: No evidence of thrombus. 7. Aortic valve: Trileaflet valve. No stenosis. Up to moderate Aortic Insufficiency was seen. There was no vegetation 8. Pulmonic valve: Trivial pulmonic insufficiency. No significant stenosis. 9. Tricuspid valve: Mild tricuspid regurgitation. There was no vegetation 10. Interatrial septum: Negative color flow for right to left shunt was observed. Bubble study was performed: negative for shunt 11. Pericardium: No significant effusion. 12. Thoracic aorta: No significant plaquing. Chest x-ray, 10/27/2024: 1. Cardiomegaly, stable diffuse increased prominence of the pulmonary vasculature and small bilateral pleural effusions. 2. Slight interval advancement of endotracheal tube as above. Remaining lines and tubes unchanged. CT head, 10/07/2024: No acute intracranial abnormality General: the patient is well developed and nourished. No acute distress. Intubated CT head, 10/07/2024: No acute intracranial abnormality. CT head, 10/11/2024: No acute intracranial abnormality vital signs Vital Sign Date Time Temp Pulse Resp B/P (MAP) Pulse Ox O2 Delivery O2 Flow Rate FiO2 10/16/24 10:09 89/51 10/16/24 09:52 79 22 100 30 10/16/24 08:00 Mechanical Ventilator+ 10/16/24 06:45 99.3 210.7 Total Intake and Output 10/15/24 10/15/24 10/16/24 15:00 23:00 07:00 Intake Total 339.000 ml 525.004 ml 708.941 ml Output Total 1000 ml 1325 ml Balance 339.000 ml -474.996 ml -616.059 ml medications Current Medications Medications Dose Ordered Sig/Liliam Route Start Time Stop Time Status Last Admin Dose Admin Midazolam HCl 50 ml @ 1 mls/hr Q24H IV 10/07/24 04:45 10/16/24 10:09 4 MLS/HR Ondansetron HCl 4 mg Q4HP PRN IV 10/07/24 10:00 Nitroglycerin 0.4 mg Q5MINP PRN SL 10/07/24 10:00 Morphine Sulfate 2 mg Q30M PRN IV 10/07/24 10:00 Pantoprazole Sodium 40 mg DAILY IV 10/07/24 10:00 10/16/24 09:04 40 MG Aspirin 81 mg DAILY PO 10/08/24 10:00 10/15/24 10:22 81 MG Mexiletine HCl 150 mg TID GT 10/08/24 22:00 10/16/24 05:43 150 MG Acetaminophen 500 mg Q6HP PRN PO 10/08/24 22:30 10/09/24 21:26 500 MG Enteral Nutritional Formula 1,000 ml 55ML/HR GT 10/09/24 18:45 10/12/24 21:34 1,000 ML Phenylephrine HCl 80 mg/Sodium Chloride 250 ml @ 7.5 mls/hr Q24H IV 10/10/24 09:30 10/16/24 02:00 21.563 MLS/HR Ertapenem 1 gm/ Sodium Chloride 50 ml @ 100 mls/hr DAILY IV 10/10/24 20:00 10/15/24 10:22 100 MLS/HR Furosemide 20 mg BIDD IV 10/12/24 18:00 10/15/24 18:10 20 MG Esmolol HCl 250 ml @ 0 mls/hr Q0M IV 10/14/24 10:45 Amino Acids 0 ml @ 0 mls/hr PER PHARMACY IV 10/15/24 18:45 Heparin Sodium/ Dextrose 250 ml @ 13 mls/hr [id number] IV 10/16/24 04:15 Diagnostic Test (Pha) 1 strip Q6HR 10/16/24 12:00 Insulin Human Regular FOLLOW SLIDING SCALE Q6HR SC 10/16/24 12:00 Dextrose 50 ml UD IV 10/16/24 09:30 Amino Acids/ Electrolytes/ Dextrose 1,000 ml @ 41 mls/hr DAILY@2200 IV 10/16/24 22:00 objective The patient is well-nourished and well-developed with no distress. The patient is intubated MENTAL STATUS: Subjective CRANIAL NERVES: Pupils are equal, round and reactive.There are corneal reflexes and doll's eyes phenomenon. No signs of facial weakness. There are gagging or coughing reflexes SENSATION: Responses to pain stimuli. MOTOR: Normal tone in the upper and lower extremity. Normal muscle bulk. No fasciculations. No spontaneous movement. REFLEXES: Deep tendon reflexes are symmetrical. No pathological reflexes. CEREBELLAR/COORDINATION: Deferred GAIT/STATION: deferred. laboratory and microbiology Laboratory Tests 10/16/24 02:40 Test 10/16/24 02:40 Range/Units Serum Glucose 113 H 74-106 mg/dL Problem List Cardiopulmonary arrest Status post CPR Metabolic encephalopathy Hypoxic encephalopathy Congestive heart failure Leukocytosis/sepsis Respiratory failure Elevated liver function tests Assessment/Plan Monitoring Supportive treatment ICU care Stabilize vitals Respiratory support/vent management Hold off Lipitor (elevated liver function tests), LDL (31) (home medications included Lipitor 40 mg daily) DVT prophylaxis GI prophylaxis Cardiology on case Pulmonology on case Nephrology on case Consult GI Re: Elevated liver function tests Need more history Pacemaker Insertion This medical document was created using an electronic medical record system with [employer] dictation system. Although this document has been carefully reviewed, there may still be some phonetic and typographical errors. These areas are purely typographical due to imperfections of the software programs, and do not reflect any compromise in the patient's medical care. Dietary Evaluation Review Comments: 1) TF Jevity 1.2Cal @ 55 ml/hr. x 24hr along with Pro-stat 1 pk daily. Start @ 20ml/hr, increase 10ml/hr Q4H until goal is reached. TF @ goal volume provides 1684 kcal (100% energy needs), 88 gm protein (100% protein needs), 1065 ml free water. 2) Water flush 100ml Q4H if allowed, adjust PRN 3) Advance to cardiac diet as medically feasible 4) Monitor NPO status, lab values, wt trend, I/O Expected Outcomes/Goals: To meet >75% estimated needs within 7 days Lab values to improve Fu 2-3 days Plan discussed with: Other CAROLINE ROBB MD Oct 16, 2024 10:44
--- NOTE | 2024-10-16 11:16 | CONS ---
Pharmacy Clinical Information: HEPARIN DRIP, ACS PROTOCOL @0942 APTT 64.3 - NO BOLUS, NO CHANGE NEXT APTT DRAW SCHEDULED @1600 PER RX PROTOCOL CONFIRMED AND READ BACK WITH RN ROME MATHEW PHARMACIST Oct 16, 2024 11:16
[2024-10-16] MEDS: ACCU-CHEK COMFORT CURVE STRIP VI SCH (11:58)
[2024-10-16] MEDS: InsuLIN REG 1unit/0.01ml Soln (100units/ml) SC SCH (11:58)
--- NOTE | 2024-10-16 14:15 | DVHPN2 ---
Progress Note - Dictate Date Seen: Oct 16, 2024 Has the PT tested + for MRSA If YES, has PT been informed?: No Medical Necessity Reason Pt with a Central, PICC or Fol: Yes vital signs Vital Sign Date Time Temp Pulse Resp B/P (MAP) Pulse Ox O2 Delivery O2 Flow Rate FiO2 10/16/24 13:03 81 22 89/54 (66) 100 30 10/16/24 12:30 98.8 209.8 10/16/24 12:00 Mechanical Ventilator+ Total Intake and Output 10/15/24 10/15/24 10/16/24 15:00 23:00 07:00 Intake Total 339.000 ml 525.004 ml 789.504 ml Output Total 1000 ml 1325 ml Balance 339.000 ml -474.996 ml -535.496 ml medications Current Medications Medications Dose Ordered Sig/Liliam Route Start Time Stop Time Status Last Admin Dose Admin Midazolam HCl 50 ml @ 1 mls/hr Q24H IV 10/07/24 04:45 10/16/24 10:09 4 MLS/HR Ondansetron HCl 4 mg Q4HP PRN IV 10/07/24 10:00 Nitroglycerin 0.4 mg Q5MINP PRN SL 10/07/24 10:00 Pantoprazole Sodium 40 mg DAILY IV 10/07/24 10:00 10/16/24 09:04 40 MG Aspirin 81 mg DAILY PO 10/08/24 10:00 10/15/24 10:22 81 MG Mexiletine HCl 150 mg TID GT 10/08/24 22:00 10/16/24 05:43 150 MG Acetaminophen 500 mg Q6HP PRN PO 10/08/24 22:30 10/09/24 21:26 500 MG Enteral Nutritional Formula 1,000 ml 55ML/HR GT 10/09/24 18:45 10/12/24 21:34 1,000 ML Phenylephrine HCl 80 mg/Sodium Chloride 250 ml @ 7.5 mls/hr Q24H IV 10/10/24 09:30 10/16/24 14:00 26.25 MLS/HR Ertapenem 1 gm/ Sodium Chloride 50 ml @ 100 mls/hr DAILY IV 10/10/24 20:00 10/16/24 11:58 100 MLS/HR Furosemide 20 mg BIDD IV 10/12/24 18:00 10/16/24 11:58 20 MG Esmolol HCl 250 ml @ 0 mls/hr Q0M IV 10/14/24 10:45 Amino Acids 0 ml @ 0 mls/hr PER PHARMACY IV 10/15/24 18:45 Heparin Sodium/ Dextrose 250 ml @ 13 mls/hr [id number] IV 10/16/24 04:15 Diagnostic Test (Pha) 1 strip Q6HR 10/16/24 12:00 10/16/24 11:58 1 STRIP Insulin Human Regular FOLLOW SLIDING SCALE Q6HR SC 10/16/24 12:00 Dextrose 50 ml UD IV 10/16/24 09:30 Amino Acids/ Electrolytes/ Dextrose 1,000 ml @ 41 mls/hr DAILY@2200 IV 10/16/24 22:00 Fentanyl Citrate 250 ml @ 2.5 mls/hr Q24H IV 10/16/24 13:00 UNV laboratory and microbiology Laboratory Tests 10/16/24 02:40 Test 10/16/24 02:40 Range/Units Serum Glucose 113 H 74-106 mg/dL Assessment/Plan Assessment/Plan Plan/Recommendation ASSESSMENT: This is a 54-year old female who initially presented 10/07/2024 due to witnessed syncope. As per records and having spoke with family members (son/father), patient had collapsed in the kitchen as witnessed by nearby family members whom had initiated CPR. EMS had been called for further medical attention and upon their arrival reports indicate the patient had been found in ventricular fibrillation for which she was subsequently shocked by EMS and upon rhythm strip analysis of the event, rhythm itself does reveal evidence for what appears to be ventricular fibrillation requiring shock x 1 which upon ED arrival 12-lead electrocardiogram had revealed sinus rhythm at 84bpm, QRS of 96ms with a QTC interval of 495 ms. Upon ED arrival patient was intubated and initiated on Amiodarone infusion for rhythm management. Patient was later admitted to the ICU for close observation/management and had been noted to experience episodes of ventricular tachycardia that had degenerated into ventricular fibrillation resulting in cardiac arrest requiring initiation of CPR/ACLS protocol which the patient was subsequently shocked x 1 resulting in ROSC. Patient did undergo subsequent cardiac catheterization 10/08/2024 by Interventional Cardiology services revealing patent RICHMOND to LAD, patent SVG to obtuse marginal, proximal disease involving LAD and LCX. Echocardiogram 10/07/2024 had revealed a severely reduced LVEF function of 15-20%, dilated LV with severe global dysfunction, biatrial enlargement, moderate mitral insufficiency with mild to moderate aortic insufficiency. TTE itself had questioned potential presence of mitral ring and potential underlying component of mitral stenosis which subsequent RICHIE 10/08/2024 had revealed evidence of mitral ring with up to moderate mitral stenosis/mitral insufficiency in addition to moderate aortic insufficiency. Throughout course of present admission, patient has been furthermore noted to experience episodes of paroxysmal atrial fibrillation for which she has been maintained on anticoagulation for CVA prophylaxis. As the patient presented and was found to experience episodes of ventricular fibrillation requiring a total of 2 shocks, Electrophysiology services were later involved by Interventional Cardiology request to evaluate the patient for potential AICD implantation. Reported past medical history includes congenital heart disease, coronary artery disease status post previous bypass surgery Echocardiogram: (10/07/2024) revealed lvef 15-20% dilated LV severe global dysfunction mild RV dysfunction biatrial enlargement mild moderate MAC, moderate mitral regurg mild to moderate aortic regug (images of echo reviewed and questioned presence of mitral ring and also some component (moderate of Mitral stenosis) Cardiac Catheterization: (10/08/2024) revealed Patent RICHMOND to LAD; Patent SVG to obtuse marginal; LVEF of 20% with increased EDP; Proximal disease in LAD/LCX Transesophageal Echocardiogram (10/08/2024) revealed was performed: Consistent with severely reduced LVEF. Consistent with previously implanted Mitral ring, Up to moderate Mitral stenosis/Mitral Regurgitation and also Moderate Aortic insufficiency. Syncope, witnessed Cardiac arrest, status post ROSC Ventricular fibrillation, requiring shock x 2 Ventricular tachycardia with degeneration to ventricular fibrillation Systolic heart failure, severely reduced LV function of 15-20% Paroxysmal atrial fibrillation, currently sinus rhythm Coronary artery disease, s/p previous 2-V CABG Valvular heart disease, s/p previous mitral ring Beta-hemolytic group B streptococcus QRS < 120 milliseconds Secondary prevention ELECTROPHYSIOLOGY SUGGESTIONS FOR MANAGEMENT: Recognizing the above, patient herself benefits from undergoing AICD implantation for secondary prevention against sudden cardiac . As patient remains intubated on mechanical ventilation/sedation, benefits, risks, alternatives were discussed at length with the patient son who has agreed to AICD implantation. Of note, patient was found to have leukocytosis which sputum culture had revealed evidence for Enterobacter chloacae/beta-hemolytic group B streptococcus subsequently initiated on IV antibiotic therapy as managed by primary team/infectious disease services. Blood cultures 10/07/2024 at this point reveal no growth to date. Repeat blood cultures 10/09/2024 reveal NGTD. Repeat sputum culture 10/12/2024 reveals NGTD. Recognizing evidence for infection, ID consultation/clearance prior to pursuing AICD implantation had been requested and obtained. To proceed with IV antibiotic therapy during the interim. Recognizing co-morbidities, long-term continuation of anticoagulation is advised for CVA prophylaxis of PAF. Hold Heparin infusion (for now). Hold anti-platelet therapy as for now given tentative plan of procedure. Amiodarone held due to persistent transaminitis (improving). Remains on Mexiletin 150mg tid as well as Esmolol infusion as for now. To sustain potassium levels greater than 4.0. To sustain magnesium levels greater than 2.0. Proceed with close rate and rhythm surveillance during the interim. Digoxin level now normal. Plan for tentative AICD implantation tomorrow with Dr. Armstrong. Remainder of cardiac management as per Interventional Cardiology services. Will proceed to follow from an EP perspective. GDMT for systolic heart failure as current conditions permit Proceed with close rate and rhythm surveillance Proceed with close hemodynamic surveillance Proceed with optimized blood pressure control Transfuse to sustain HGB level above 7.0 Sustain Magnesium level greater than 2.0 Sustain Potassium level greater than 4.0 Follow up renal function and electrolytes Management of ongoing concurrent medical conditions as per primary team Management of beta-hemolytic group B strep as per primary team/ID Management comorbidities as per primary team Management in the ICU Follow up desktop support consultant recommendations Will proceed to follow from an EP perspective Further recommendations per clinical progression All available diagnostic labs, EKG's, and images were personally reviewed Patient's status, findings, and plan of care was reviewed and discussed with supervising physician Dr. Armstrong, who is in agreement with current plan of care. Plan of care discussed with and agreed upon by family / primary RN Prognosis: Guarded Thank you for allowing me to participate in the care of this patient. Further recommendations based on patients clinical course and progression, primary attending, and other consultants. Will continue to follow with primary attending. If you have any questions or concerns, please do not hesitate to contact me. A total of 75 minutes was spent reviewing the patient record, examining the patient, making a diagnostic and therapeutic plan, discussing this plan with medical personnel, following up on diagnostic studies and following the patient for clinical stability excluding any and all procedures. At least 50% of this time was spent in direct, [id number] contact. Plan discussed with: Other (Primary RN and Patient Son) Dietary Evaluation Review Comments: 1) TF Jevity 1.2Cal @ 55 ml/hr. x 24hr along with Pro-stat 1 pk daily. Start @ 20ml/hr, increase 10ml/hr Q4H until goal is reached. TF @ goal volume provides 1684 kcal (100% energy needs), 88 gm protein (100% protein needs), 1065 ml free water. 2) Water flush 100ml Q4H if allowed, adjust PRN 3) Advance to cardiac diet as medically feasible 4) Monitor NPO status, lab values, wt trend, I/O Expected Outcomes/Goals: To meet >75% estimated needs within 7 days Lab values to improve Fu 2-3 days Plan discussed with: Patient (Primary RN/Patient Son) TUCKER CRUZ RESIDENT IN DIAGNOSTIC RADIOLOGY Oct 16, 2024 14:14
[2024-10-16 16:18] LABS: Potassium 3.8 mmol/L (3.5-5.1)
[2024-10-16 16:25] LABS: Magnesium 2.6 mg/dL (1.6-2.6)
[2024-10-16 16:31] LABS: INR 1.18 (0.9-1.15); Partial Thromboplastin Time 66.6 SEC (24.5-34.5); Prothrombin Time 12.3 sec (9.3-11.8)
--- NOTE | 2024-10-16 16:41 | DVHPN2 ---
Progress Note Date Seen: Oct 16, 2024 Resident Creating Document: SHANKAR VALDEZ RESIDENT Has the PT tested + for MRSA If YES, has PT been informed?: No Medical Necessity Reason Pt with a Central, PICC or Fol: Yes Subjective Review of Systems Today's progress- The patient remains intubated in the ICU, pending AICD placement tomorrow. No CPAP trial was performed today. Hepatic steatosis-LFTs have normalized, except for alkaline phosphatase, which remains mildly elevated at 128. Hemoglobin stable at 10.7. WBC count elevated at 12.1. PT is at 11.9 slightly elevated, INR at 1.14 normal, APTT remains elevated at 64.3. GI hepatitis panel was negative, no bowel movement noted today. Lactulose was given yesterday with no effect. Nutrition-patient is receiving Clinimix IV TPN and Jevity 1000 mL via G-tube at 0.5 mL/hour. No GI bleeding Objective vital signs Vital Sign Date Time Temp Pulse Resp B/P (MAP) Pulse Ox O2 Delivery O2 Flow Rate FiO2 10/16/24 15:06 82 21 95/56 (69) 100 30 10/16/24 14:25 Mechanical Ventilator+ 10/16/24 12:30 98.8 209.8 Total Intake and Output 10/15/24 10/15/24 10/16/24 15:00 23:00 07:00 Intake Total 339.000 ml 525.004 ml 789.504 ml Output Total 1000 ml 1325 ml Balance 339.000 ml -474.996 ml -535.496 ml medications Current Medications Medications Dose Ordered Sig/Liliam Route Start Time Stop Time Status Last Admin Dose Admin Midazolam HCl 50 ml @ 1 mls/hr Q24H IV 10/07/24 04:45 10/16/24 10:09 4 MLS/HR Ondansetron HCl 4 mg Q4HP PRN IV 10/07/24 10:00 Nitroglycerin 0.4 mg Q5MINP PRN SL 10/07/24 10:00 Pantoprazole Sodium 40 mg DAILY IV 10/07/24 10:00 10/16/24 09:04 40 MG Aspirin 81 mg DAILY PO 10/08/24 10:00 10/15/24 10:22 81 MG Mexiletine HCl 150 mg TID GT 10/08/24 22:00 10/16/24 05:43 150 MG Acetaminophen 500 mg Q6HP PRN PO 10/08/24 22:30 10/09/24 21:26 500 MG Enteral Nutritional Formula 1,000 ml 55ML/HR GT 10/09/24 18:45 10/12/24 21:34 1,000 ML Phenylephrine HCl 80 mg/Sodium Chloride 250 ml @ 7.5 mls/hr Q24H IV 10/10/24 09:30 10/16/24 14:00 26.25 MLS/HR Ertapenem 1 gm/ Sodium Chloride 50 ml @ 100 mls/hr DAILY IV 10/10/24 20:00 10/16/24 11:58 100 MLS/HR Furosemide 20 mg BIDD IV 10/12/24 18:00 10/16/24 11:58 20 MG Esmolol HCl 250 ml @ 0 mls/hr Q0M IV 10/14/24 10:45 Amino Acids 0 ml @ 0 mls/hr PER PHARMACY IV 10/15/24 18:45 Heparin Sodium/ Dextrose 250 ml @ 13 mls/hr [id number] IV 10/16/24 04:15 Diagnostic Test (Pha) 1 strip Q6HR 10/16/24 12:00 10/16/24 11:58 1 STRIP Insulin Human Regular FOLLOW SLIDING SCALE Q6HR SC 10/16/24 12:00 Dextrose 50 ml UD IV 10/16/24 09:30 Amino Acids/ Electrolytes/ Dextrose 1,000 ml @ 41 mls/hr DAILY@2200 IV 10/16/24 22:00 Fentanyl Citrate 250 ml @ 2.5 mls/hr Q24H IV 10/16/24 13:00 Examination GENERAL:Normal, LUNGS:Abnormal (diminished on ventillator ), ABDOMEN:Normal, SKIN:Normal, NEURO:Normal laboratory and microbiology Laboratory Tests 10/16/24 15:46 10/16/24 02:40 Test 10/16/24 02:40 Range/Units Serum Glucose 113 H 74-106 mg/dL Microbiology Date/Time Source Procedure Growth Status 10/13/24 11:00 Sputum Endotracheal Wash Gram Stain - Final Resulted 10/13/24 11:00 Sputum Endotracheal Wash Respiratory Culture - Preliminary Resulted 10/09/24 08:49 Blood Blood Culture - Final NO GROWTH AFTER 5 DAYS OF INCUBATION. Complete 10/07/24 16:50 Nose MRSA Screen - Final Complete Problem List/Assessment/Plan Problem List/Assessment/Plan Acute hepatocellular injury most likely SHOCK LIVER RATHER THAN AMIODARONE INDUCED HEPATOTOXICITY NAFLD with steatohepatitis Cholelithiasis without acute inflammation Plan/Recommendation Plan Hepatic / GI * Continue to trend LFTs, INR, albumin daily * Avoid all hepatotoxic medications amiodarone documented as causing hepatotoxicity * Monitor for signs of acute liver failure (AMS, INR >1.5, hypoglycemia) * Maintain hemodynamic stability to optimize hepatic perfusion. Continue protonix Nutrition START CLINIMIX TPN VIA IV TODAY. START MIRALAX 17 G VIA G-TUBE ONCE FOR CONSTIPATION. * Continue current enteral feeding via GT at 55 mL/hr (1.2 Ron/Fiber formula) * Monitor tolerance, bowel function, and risk for aspiration * Check nutrition labs (albumin, prealbumin weekly) Gallstones * Cholelithiasis without acute inflammation no surgical intervention needed at present * Outpatient surgical evaluation if future biliary symptoms occur Coagulopathy * Mild INR elevation, likely multifactorial (acute liver injury + anticoagulation) * Continue monitoring; vitamin K if INR worsens or bleeding occurs Infection Control (GI-relevant) * Continue current antibiotic therapy: Ertapenem 1 g IV daily (for non-GI infection per primary/ID) * Monitor for secondary biliary sepsis; repeat RUQ ultrasound if bilirubin rises or leukocytosis worsens Case discussed in detail with the attending physician, including the clinical presentation, diagnostic workup, and comprehensive management plan. Plan discussed with: Other (RN) My Orders My Orders Orders - SHANKAR VALDEZ RESIDENT Procedure Category Date Status Time Clinimix Per Pharmacy PHA 10/15/24 In Process 18:45 Amino Acid Infusion PHA 10/15/24 In Process In D10w (Clinimix 4. 22:00 Glucose Blood PHA 10/16/24 In Process (Accu-Chek Comfort 12:00 Insulin R (Human) PHA 10/16/24 In Process (Insulin R) 12:00 Dextrose 50% Syringe PHA 10/16/24 In Process 09:30 Amino Acid Infusion PHA 10/16/24 In Process In D10w (Clinimix 4. 22:00 Comprehensive LAB 10/17/24 Verified Metabolic Panel 04:00 Magnesium LAB 10/17/24 Verified 04:00 Phosphorus LAB 10/17/24 Verified 04:00 Clinimix Per Pharmacy LUIS ARMANDO 10/16/24 In Process 09:47 Dietary Evaluation Review Comments: 1) TF Jevity 1.2Cal @ 55 ml/hr. x 24hr along with Pro-stat 1 pk daily. Start @ 20ml/hr, increase 10ml/hr Q4H until goal is reached. TF @ goal volume provides 1684 kcal (100% energy needs), 88 gm protein (100% protein needs), 1065 ml free water. 2) Water flush 100ml Q4H if allowed, adjust PRN 3) Advance to cardiac diet as medically feasible 4) Monitor NPO status, lab values, wt trend, I/O Expected Outcomes/Goals: To meet >75% estimated needs within 7 days Lab values to improve Fu 2-3 days SHANKAR VALDEZ RESIDENT Oct 16, 2024 16:41
[2024-10-16] MEDS: fentaNYL Drip 2500mCg/250mlNS 250 ML IV SCH (16:56)
--- NOTE | 2024-10-16 17:02 | CONS ---
Pharmacy Clinical Information: HEPARIN DRIP, ACS PROTOCOL @1546 APTT 66.6 - NO BOLUS, NO CHANGE NEXT APTT DRAW SCHEDULED @0500 PER RX PROTOCOL CONFIRMED AND READ BACK WITH RN ROME MATHEW PHARMACIST Oct 16, 2024 17:02
--- NOTE | 2024-10-16 17:39 | DVHPN2 ---
Progress Note - Dictate Date Seen: Oct 16, 2024 Has the PT tested + for MRSA If YES, has PT been informed?: No Medical Necessity Reason Pt with a Central, PICC or Fol: Yes vital signs Vital Sign Date Time Temp Pulse Resp B/P (MAP) Pulse Ox O2 Delivery O2 Flow Rate FiO2 10/16/24 17:15 99.7 81 17 85/55 (65) 100 211.5 10/16/24 16:00 30 10/16/24 16:00 Mechanical Ventilator+ Total Intake and Output 10/15/24 10/15/24 10/16/24 15:00 23:00 07:00 Intake Total 339.000 ml 525.004 ml 789.504 ml Output Total 1000 ml 1325 ml Balance 339.000 ml -474.996 ml -535.496 ml medications Current Medications Medications Dose Ordered Sig/Liliam Route Start Time Stop Time Status Last Admin Dose Admin Midazolam HCl 50 ml @ 1 mls/hr Q24H IV 10/07/24 04:45 10/16/24 10:09 4 MLS/HR Ondansetron HCl 4 mg Q4HP PRN IV 10/07/24 10:00 Nitroglycerin 0.4 mg Q5MINP PRN SL 10/07/24 10:00 Pantoprazole Sodium 40 mg DAILY IV 10/07/24 10:00 10/16/24 09:04 40 MG Aspirin 81 mg DAILY PO 10/08/24 10:00 10/15/24 10:22 81 MG Mexiletine HCl 150 mg TID GT 10/08/24 22:00 10/16/24 05:43 150 MG Acetaminophen 500 mg Q6HP PRN PO 10/08/24 22:30 10/09/24 21:26 500 MG Enteral Nutritional Formula 1,000 ml 55ML/HR GT 10/09/24 18:45 10/12/24 21:34 1,000 ML Phenylephrine HCl 80 mg/Sodium Chloride 250 ml @ 7.5 mls/hr Q24H IV 10/10/24 09:30 10/16/24 14:00 26.25 MLS/HR Ertapenem 1 gm/ Sodium Chloride 50 ml @ 100 mls/hr DAILY IV 10/10/24 20:00 10/16/24 11:58 100 MLS/HR Furosemide 20 mg BIDD IV 10/12/24 18:00 10/16/24 11:58 20 MG Esmolol HCl 250 ml @ 0 mls/hr Q0M IV 10/14/24 10:45 Amino Acids 0 ml @ 0 mls/hr PER PHARMACY IV 10/15/24 18:45 Heparin Sodium/ Dextrose 250 ml @ 13 mls/hr [id number] IV 10/16/24 04:15 Diagnostic Test (Pha) 1 strip Q6HR 10/16/24 12:00 10/16/24 11:58 1 STRIP Insulin Human Regular FOLLOW SLIDING SCALE Q6HR SC 10/16/24 12:00 Dextrose 50 ml UD IV 10/16/24 09:30 Amino Acids/ Electrolytes/ Dextrose 1,000 ml @ 41 mls/hr DAILY@2200 IV 10/16/24 22:00 Fentanyl Citrate 250 ml @ 2.5 mls/hr Q24H IV 10/16/24 13:00 10/16/24 16:56 15 MLS/HR laboratory and microbiology Laboratory Tests 10/16/24 15:46 10/16/24 02:40 Test 10/16/24 02:40 Range/Units Serum Glucose 113 H 74-106 mg/dL Assessment/Plan s/p cardiac arrest VT CPR <5 min elevated troponin acute resp failure atelectases pt seen and examined on the ICU events off sedation on mechanical ventilation PEEP 5, FiO2 30% frequent arrhythmias extubation risky at this point awaiting ICD placement management plan daily sedation holidays ok to use precedex cont abx monitor cx monitor labs renal function daily abg and CXR dvt proph/on heparin drip awaiting pacemaker placement scheduled for tomorrow f/u cardiology crit care time 35 min Dietary Evaluation Review Comments: 1) TF Jevity 1.2Cal @ 55 ml/hr. x 24hr along with Pro-stat 1 pk daily. Start @ 20ml/hr, increase 10ml/hr Q4H until goal is reached. TF @ goal volume provides 1684 kcal (100% energy needs), 88 gm protein (100% protein needs), 1065 ml free water. 2) Water flush 100ml Q4H if allowed, adjust PRN 3) Advance to cardiac diet as medically feasible 4) Monitor NPO status, lab values, wt trend, I/O Expected Outcomes/Goals: To meet >75% estimated needs within 7 days Lab values to improve Fu 2-3 days Plan discussed with: Other (Rn) BELLO ROTHMAN MD Oct 16, 2024 17:39
[2024-10-16] MEDS: POTASSIUM CHL 20MEQ/100ML 100 ML IV ONE (18:03)
[2024-10-16] MEDS: AMINO ACID INFUSION IN D10W 1,000 ML IV SCH (21:26)
[2024-10-17] VITALS (101 sets, daily range): BP systolic 95–134; BP diastolic 44–67; PULSE 20–83; RESP 12–28; TEMP 88.7–99.7; O2SAT 100
[2024-10-17 03:38] LABS: Hematocrit 29.3 % (36.0-46.0); Hemoglobin 9.9 g/dL (12.2-16.2); Mean Corpuscular Hemoglobin 31.6 pg (28.0-32.0); Mean Corpuscular Volume 93.2 fL (80.0-100.0)
[2024-10-17 03:54] LABS: Alanine Aminotransferase 23 U/L (7-40); Alkaline Phosphatase 114 U/L (46-116); Anion Gap 8 (5-15); BUN/Creatinine Ratio 19.7 (10.0-20.0); Blood Urea Nitrogen 12 mg/dL (9-23); Carbon Dioxide 25 mmol/L (20-31); Chloride 101 mmol/L (98-107); Glucose 99 mg/dL (74-106); Magnesium 2.0 mg/dL (1.6-2.6); Potassium 3.6 mmol/L (3.5-5.1); Total Protein 5.8 g/dL (5.7-8.2)
[2024-10-17 03:55] LABS: Bilirubin, Total 0.8 mg/dL (0.2-1.0)
[2024-10-17 03:58] LABS: Albumin 2.7 g/dL (3.2-4.8); Calcium 7.8 mg/dL (8.7-10.4); Sodium 134 mmol/L (136-145)
[2024-10-17 04:22] LABS: INR 1.17 (0.9-1.15); Partial Thromboplastin Time 29.0 SEC (24.5-34.5); Prothrombin Time 12.2 sec (9.3-11.8)
[2024-10-17 04:38] LABS: Polychromasia Slight; Total Cells Counted 100.0 (100)
[2024-10-17 05:33] LABS: Hematocrit 29.7 % (36.0-46.0); Hemoglobin 9.7 g/dL (12.2-16.2); Mean Corpuscular Hemoglobin 30.8 pg (28.0-32.0); Mean Corpuscular Volume 93.9 fL (80.0-100.0); Nucleated Red Blood Cells % 0.1 %
--- NOTE | 2024-10-17 06:12 | DVHPN2 ---
Progress Note - Dictate Date Seen: Oct 17, 2024 Has the PT tested + for MRSA If YES, has PT been informed?: No Medical Necessity Reason Pt with a Central, PICC or Fol: Yes vital signs Vital Sign Date Time Temp Pulse Resp B/P (MAP) Pulse Ox O2 Delivery O2 Flow Rate FiO2 10/17/24 06:01 79 22 123/60 (81) 100 30 10/17/24 04:45 99.3 210.7 10/17/24 04:00 Mechanical Ventilator+ Total Intake and Output 10/16/24 10/16/24 10/17/24 15:00 23:00 07:00 Intake Total 1123.878 ml 864.5945 ml 458.375 ml Output Total 2000 ml Balance 1123.878 ml -1135.4055 ml 458.375 ml medications Current Medications Medications Dose Ordered Sig/Liliam Route Start Time Stop Time Status Last Admin Dose Admin Midazolam HCl 50 ml @ 1 mls/hr Q24H IV 10/07/24 04:45 10/17/24 04:49 4 MLS/HR Ondansetron HCl 4 mg Q4HP PRN IV 10/07/24 10:00 Nitroglycerin 0.4 mg Q5MINP PRN SL 10/07/24 10:00 Pantoprazole Sodium 40 mg DAILY IV 10/07/24 10:00 10/16/24 09:04 40 MG Aspirin 81 mg DAILY PO 10/08/24 10:00 10/15/24 10:22 81 MG Mexiletine HCl 150 mg TID GT 10/08/24 22:00 10/16/24 21:45 150 MG Acetaminophen 500 mg Q6HP PRN PO 10/08/24 22:30 10/09/24 21:26 500 MG Enteral Nutritional Formula 1,000 ml 55ML/HR GT 10/09/24 18:45 10/12/24 21:34 1,000 ML Phenylephrine HCl 80 mg/Sodium Chloride 250 ml @ 7.5 mls/hr Q24H IV 10/10/24 09:30 10/17/24 04:04 16.875 MLS/HR Ertapenem 1 gm/ Sodium Chloride 50 ml @ 100 mls/hr DAILY IV 10/10/24 20:00 10/16/24 11:58 100 MLS/HR Furosemide 20 mg BIDD IV 10/12/24 18:00 8/19/25 18:03 20 MG Esmolol HCl 250 ml @ 0 mls/hr Q0M IV 10/14/24 10:45 Amino Acids 0 ml @ 0 mls/hr PER PHARMACY IV 10/15/24 18:45 Heparin Sodium/ Dextrose 250 ml @ 13 mls/hr [id number] IV 10/16/24 04:15 Diagnostic Test (Pha) 1 strip Q6HR 10/16/24 12:00 10/17/24 00:14 1 STRIP Insulin Human Regular FOLLOW SLIDING SCALE Q6HR SC 10/16/24 12:00 Dextrose 50 ml UD IV 10/16/24 09:30 Amino Acids/ Electrolytes/ Dextrose 1,000 ml @ 41 mls/hr DAILY@2200 IV 10/16/24 22:00 10/16/24 21:26 41 MLS/HR Fentanyl Citrate 250 ml @ 2.5 mls/hr Q24H IV 10/16/24 13:00 10/17/24 04:50 15 MLS/HR laboratory and microbiology Laboratory Tests 10/17/24 05:00 10/17/24 02:45 Test 10/17/24 02:45 Range/Units Serum Glucose 99 74-106 mg/dL Assessment/Plan Patient is a 54-year-old female who was brought to the hospital for witnessed syncope. She is intubated and is being managed in ICU. Information was obtained by reviewing the chart and communicating with patient's son (over the phone). Family recognized witnessed syncope and started CPR and called EMS. Reportedly, EMS found the patient in ventricular fibrillation and shocked the patient and brought the patient to the hospital. Patient was intubated in emergency room and transferred to ICU. Patient was on amiodarone drip. Later the patient had ventricular tachycardia (Systane). High sensitive troponin had been minimally/flatly elevated. Presentation was not in favor of acute coronary syndrome. Cardiology is involved for cardiac aspects of care. Intubated. Noncommunicative. No JVD. Mucosa pale. No carotid bruit. Scattered rhonchi in the lungs is heard. Cardiac: Regular, no thrill. Systolic murmur 2/6 in apex is heard. Abdomen is soft. No edema in extremities. Past medical history as per son: Congenital heart disease, status post bypass WBC: 14.5 - 11.9 - 18.8 - 20.0 - 21.2 - 14.3 - 10.3 - 8.9 - 9.2 - 11.1 - 12.1 - 10.8 - 12.0 Hemoglobin: 10.1 - 9.6 - 9.2 - 8.8 - 8.7 - 8.0 - 8.3 - 8.5 - 7.8 - 10.2 - 10.7 Creatinine: 0.95 - 0.93 - 0.87 - 0.83 - 0.83 - 0.76 - 0.68 - 0.72 - 0.79 - 0.76 - 0.80 - 0.84 - 0.61 Potassium: 3.4 - 4.0 - 4.6 - 3.5 - 3.3 - 4.1 - 3.7 - 3.2 - 3.7 - 4.0 - 3.2 - 3.4 - 3.9 - 4.2 - 3.3 - 3.8 - 3.6 Magnesium: 2.0 - 1.6 - 2.0 - 3.0 - 1.5 - 1.9 - 2.1 - 1.8 - 2.0 - 1.9 - 1.9 - 2.6 - 2.0 Troponin (high sensitive): 141 - 138 - 117 BNP: 457.16 AST/ALT: 32/11 - 19/13 - 538/168 - 293/152 - 131/130 - 78/94 - 68/74 - 48/57 - 27/38 - 15/23 Digoxin level: 2.83 - 1.25 - 0.98 UDS: non-revealing Chest x-ray revealed: Lines and Tubes: Endotracheal tube tip projects approximately 1.4 cm above the level of the tyler. Enteric catheter courses below the lateral of the diaphragm and terminates beyond the inferior margin of the image. Right internal jugular central venous catheter terminates within the distal superior vena cava. Lungs: Moderate diffuse increased prominence of the pulmonary vasculature without evidence of focal consolidation. Pleura: No effusion. No pneumothorax. Cardiomediastinal contours: Cardiomegaly. Bones: Unremarkable IMPRESSION: 1. Cardiomegaly and diffuse increased prominence of the pulmonary vasculature. 2. Lines and tubes as above. Repeat chest x-ray revealed: IMPRESSION: 1. Endotracheal tube tip 1.6 cm above the tyler; consider 2 cm retraction 2. Mild pulmonary vascular congestion. Moderate cardiomegaly. Repeat chest xry revealed: IMPRESSION: Endotracheal tube tip 1.6 cm above the tyler; consider 2 cm retraction Mild pulmonary vascular congestion. Moderate cardiomegaly. Repeat chest xry revealed: IMPRESSION: 1. Stable cardiomegaly, small left pleural effusion and mild diffuse increased prominence of the pulmonary vasculature. 2. Repositioned endotracheal tube as above. Remaining lines and tubes unchanged. Repeat chest xry revealed: IMPRESSION: 1. Cardiomegaly, stable diffuse increased prominence of the pulmonary vasculature and small bilateral pleural effusions. 2. Slight interval advancement of endotracheal tube as above. Remaining lines and tubes unchanged. Repeat chest xry revealed: IMPRESSION: 1. Slight interval decrease in diffuse increased prominence of the pulmonary vasculature. 2. Stable cardiomegaly and small left pleural effusion. 3. Lines and tubes unchanged. Repeat chest xry revealed: IMPRESSION: 1. Cardiomegaly and small left pleural effusion. 2. Lines and tubes unchanged. Repeat chest xry revealed: IMPRESSION: Stable lines and tubes. Similar lung aeration. Repeat chest xry revealed: IMPRESSION: Cardiomegaly and small left pleural effusion. Lines and tubes unchanged. Left upper ext arterial duplex: IMPRESSION: No hemodynamically significant stenosis based on peak systolic velocity criteria. Left lower ext arterial duplex: IMPRESSION: There is no evidence for peripheral vascular insufficiency in the left lower extremity. No significant focal stenosis is identified. Liver Ultrasound revealed: Hepatic steatosis. Hepatomegaly. Cholelithiasis. CT of the head revealed: IMPRESSION: No acute intracranial abnormality. Repeat CT of head revealed: IMPRESSION: No acute intracranial abnormality. Echocardiogram reported: lvef 15-20% dilated LV severe global dysfunction mild RV dysfunction biatrial enlargement mild moderate MAC, moderate mitral regurg mild to moderate aortic regug (images of echo reviewed and questioned presence of mitral ring and also some component (moderate of Mitral stenosis) EKG revealed sinus rhythm Telemetry revealed occasions of atrial fibrillation. There was occasional sustained ventricular tachycardia. EMS tele monitor revealed ventricular fibrillation for which the patient was shocked. Has remained sinus rhythm. Later with A-fib with MVR LHC revealed: Patent RICHMOND to LAD; Patent SVG to obtuse marginal; LVEF of 20% with increased EDP; Proximal disease in LAD/LCX RICHIE was performed: Consistent with severely reduced LVEF. Consistent with previously implanted Mitral ring, Up to moderate Mitral stenosis/Mitral Regurgitation and also Moderate Aortic insufficiency. Patient is a 54-year-old female who presented with witnessed syncope. She was found to have ventricular fibrillation for which was shocked. Later had repeated episode of sustained ventricular tachycardia. Patient has been kept in ICU. Does have baseline history of coronary artery disease for which has had bypass surgery. Left heart catheterization was performed which revealed patent RICHMOND and patent SVG. ACS is not considered at this point. It is of note that the patient's echocardiogram reveals significantly use systolic function. Valvular heart disease is considered. Findings are in favor of previously implanted mitral ring. By reviewing the echo images, component of up to moderate mitral stenosis could not be ruled out. LHC was performed that ruled out any active specific ischemia as an etiology for presentation. Is off Amiodarone for abnormal LFT. Being followed by Nephrology / Pulmonary / Neurology / GI ID. Tele has remained sinus rhythm. Had episode of a-fib with RVR. Was loaded with Digoxin. Dig level was performed at wrong timing (only 5 hours after the last Dig given). Dig toxicity is not considered. Patient is back to normal sinus rhythm. Has good kidney function. Repeat Dig level is acceptable level. Syncope V-fib s/p shock Sustained V-tach Paroxysmal A-fib VHD, s/p Mitral ring Systolic heart failure Abnormal LFT Cardiac suggestion for management: Manage in ICU Follow up electrolytes and kidney function test and correct abnormalities Full anticoagulation (a-fib with high CHADS-Vasc score). On Heparin drip for now Off Amio drip (worsened LFT) (personally discussed with EP: Dr Armstrong who advised to stop / not to restart Amiodarone) On Mexiletine If need for pressure support: use Phenyl Ephrine May consider Esmolol for PVC/Vtach EP Following ICD implantation as per EP Pulmonary Follow up Provide previous medical records from reaching out to previous hospitals in [facility]... Further evaluation and management depends on the above and clinical course. A total of 75 minutes was spent reviewing the patient record, examining the patient, making a diagnostic and therapeutic plan, discussing this plan with medical personnel, following up on diagnostic studies and following the patient for clinical stability excluding any and all procedures. At least 50% of this time was spent in direct, [id number] contact. Thank you for allowing me to participate in this patient's care. Further recommendations will depend on patient's clinical course. Please do not hesitate to contact me if you have any questions or concerns. This medical document was created using electronic medical record system with [employer] computerized dictation system. Although this document has been carefully reviewed, there may still be some phonetic and typographical errors. These areas are purely typographical due to the imperfection of the software programs, and do not reflect any compromise in the patient's medical care. Dietary Evaluation Review Comments: 1) TF Jevity 1.2Cal @ 55 ml/hr. x 24hr along with Pro-stat 1 pk daily. Start @ 20ml/hr, increase 10ml/hr Q4H until goal is reached. TF @ goal volume provides 1684 kcal (100% energy needs), 88 gm protein (100% protein needs), 1065 ml free water. 2) Water flush 100ml Q4H if allowed, adjust PRN 3) Advance to cardiac diet as medically feasible 4) Monitor NPO status, lab values, wt trend, I/O Expected Outcomes/Goals: To meet >75% estimated needs within 7 days Lab values to improve Fu 2-3 days Plan discussed with: Other (nurse) CORDELL VERA MD Oct 17, 2024 06:12
[2024-10-17 06:23] LABS: Base Excess 0.9 mmol/L (-2.0-3.0)
[2024-10-17] MEDS: VANCOMYCIN HCL 1000 MG VL ONE (07:59)
[2024-10-17] MEDS: LIDOCAINE 2%HCL (LOCAL ANESTH.) INJ 20ML MDV ONE ×3 (07:59→08:07)
[2024-10-17] MEDS: VANCOMYCIN 1GM/200ML PM 0 ML IV ONE (07:59)
[2024-10-17] MEDS: IODIXANOL 320MG/ML 100ML BTL IV ONE (08:02)
[2024-10-17] MEDS: VANCOMYCIN 1GM/200ML PM 200 ML IV ONE (08:10)
[2024-10-17] MEDS: POTASSIUM CHL 20MEQ/100ML 100 ML IV ONE (09:24)
--- NOTE | 2024-10-17 10:28 | DVHPN2 ---
Progress Note - Dictate Date Seen: Oct 17, 2024 Has the PT tested + for MRSA If YES, has PT been informed?: No Medical Necessity Reason Pt with a Central, PICC or Fol: Yes Subjective Ms. Smith is a 54 years old female who was brought to the [facility] on 10/07/2024 with a chief complaint of cardiopulmonary arrest/status post CPR. I have seen and examined the patient, I have discussed with her nurse, she is intubated, sedated, responsive to painful stimuli She received pacemaker insertion on 10/17/2024 Fentanyl 125 mcg/hour, Versed 4 mg/hour, Neosyn 90 mcg/min Blood culture, 10/09/2024: UDS, 10/07/2024: Negative Urinalysis, 10/07/2024: Leukocyte esterase: Negative WBC/HB/PLT/MCV, 10/09/2024: 20/8.8/219/94.6, 10/10/2024: 21.2/8.7/232/92.2 PT/INR/PTT, 10/08/2024: 12.4/1.19/72.7, 10/09/2024: 13.1/1.26/68.9, 10/10/2024: 14.4/2/1.38/35.3 CMP, 10/08/2024: Unremarkable Troponin one high sensitivity, 10/07/2024: 141, 138, 117 TBI/AST/ALT/AP, 10/10/2024: 0.5/538/168/144, 10/11/2024: 0.6/293/199/152, 10/14/2024: 0.8/68/74/124 TG/HDL/LDL/HDL, 10/07/24: 71/66/31/21 Echocardiogram, 10/07/2024: lvef 15-20% dilated LV severe global dysfunction mild RV dysfunction biatrial enlargement mild moderate MAC, moderate mitral regurg mild to moderate aortic regug RICHIE, 10/08/2024: 1. Left ventricle: Dilated LV was seen. LVEF was 25%. There was diffuse hypokinesis of left ventricle. 2. Right ventricle: RV was mildly dilated. 3. Left atrium: LA enlarged 4. Right atrium: RA was enlarged. 5. Mitral valve: Mitral was thickened with reduced opening. Moderate Mitral regurgitation was seen. Planinomentry of valve (TTE images also obtained) revealed MVA of 2.1 cm. Mean pressure gradient (obtained from limited TTE images) was 5. Images are consistent with previously implanted Ring in Mitral position. Consistent with up to Moderate Mitral stenosis. . There was no vegetation 6. Left atrial appendage: No evidence of thrombus. 7. Aortic valve: Trileaflet valve. No stenosis. Up to moderate Aortic Insufficiency was seen. There was no vegetation 8. Pulmonic valve: Trivial pulmonic insufficiency. No significant stenosis. 9. Tricuspid valve: Mild tricuspid regurgitation. There was no vegetation 10. Interatrial septum: Negative color flow for right to left shunt was observed. Bubble study was performed: negative for shunt 11. Pericardium: No significant effusion. 12. Thoracic aorta: No significant plaquing. Chest x-ray, 10/27/2024: 1. Cardiomegaly, stable diffuse increased prominence of the pulmonary vasculature and small bilateral pleural effusions. 2. Slight interval advancement of endotracheal tube as above. Remaining lines and tubes unchanged. CT head, 10/07/2024: No acute intracranial abnormality General: the patient is well developed and nourished. No acute distress. Intubated CT head, 10/07/2024: No acute intracranial abnormality. CT head, 10/11/2024: No acute intracranial abnormality vital signs Vital Sign Date Time Temp Pulse Resp B/P (MAP) Pulse Ox O2 Delivery O2 Flow Rate FiO2 10/17/24 09:50 77 22 122/57 (78) 100 30 10/17/24 08:00 Mechanical Ventilator+ 10/17/24 07:00 99.1 210.4 Total Intake and Output 10/16/24 10/16/24 10/17/24 15:00 23:00 07:00 Intake Total 1123.878 ml 864.5945 ml 575.250 ml Output Total 2000 ml 1125 ml Balance 1123.878 ml -1135.4055 ml -549.750 ml medications Current Medications Medications Dose Ordered Sig/Liliam Route Start Time Stop Time Status Last Admin Dose Admin Midazolam HCl 50 ml @ 1 mls/hr Q24H IV 10/07/24 04:45 10/17/24 09:36 4 MLS/HR Ondansetron HCl 4 mg Q4HP PRN IV 10/07/24 10:00 Nitroglycerin 0.4 mg Q5MINP PRN SL 10/07/24 10:00 Pantoprazole Sodium 40 mg DAILY IV 10/07/24 10:00 10/17/24 09:25 40 MG Aspirin 81 mg DAILY PO 10/08/24 10:00 10/15/24 10:22 81 MG Mexiletine HCl 150 mg TID GT 10/08/24 22:00 10/17/24 06:22 150 MG Acetaminophen 500 mg Q6HP PRN PO 10/08/24 22:30 10/09/24 21:26 500 MG Enteral Nutritional Formula 1,000 ml 55ML/HR GT 10/09/24 18:45 10/12/24 21:34 1,000 ML Phenylephrine HCl 80 mg/Sodium Chloride 250 ml @ 7.5 mls/hr Q24H IV 10/10/24 09:30 10/17/24 04:04 16.875 MLS/HR Ertapenem 1 gm/ Sodium Chloride 50 ml @ 100 mls/hr DAILY IV 10/10/24 20:00 10/17/24 09:25 100 MLS/HR Furosemide 20 mg BIDD IV 10/12/24 18:00 10/17/24 06:00 20 MG Esmolol HCl 250 ml @ 0 mls/hr Q0M IV 10/14/24 10:45 Amino Acids 0 ml @ 0 mls/hr PER PHARMACY IV 10/15/24 18:45 Heparin Sodium/ Dextrose 250 ml @ 13 mls/hr [id number] IV 10/16/24 04:15 Diagnostic Test (Pha) 1 strip Q6HR 10/16/24 12:00 10/17/24 06:23 1 STRIP Insulin Human Regular FOLLOW SLIDING SCALE Q6HR SC 10/16/24 12:00 Dextrose 50 ml UD IV 10/16/24 09:30 Amino Acids/ Electrolytes/ Dextrose 1,000 ml @ 41 mls/hr DAILY@2200 IV 10/16/24 22:00 10/16/24 21:26 41 MLS/HR Fentanyl Citrate 250 ml @ 2.5 mls/hr Q24H IV 10/16/24 13:00 10/17/24 04:50 15 MLS/HR objective The patient is well-nourished and well-developed with no distress. The patient is intubated MENTAL STATUS: Subjective CRANIAL NERVES: Pupils are equal, round and reactive.There are corneal reflexes and doll's eyes phenomenon. No signs of facial weakness. There are gagging or coughing reflexes SENSATION: Responses to pain stimuli. MOTOR: Normal tone in the upper and lower extremity. Normal muscle bulk. No fasciculations. No spontaneous movement. REFLEXES: Deep tendon reflexes are symmetrical. No pathological reflexes. CEREBELLAR/COORDINATION: Deferred GAIT/STATION: deferred. laboratory and microbiology Laboratory Tests 10/17/24 05:00 10/17/24 02:45 Test 10/17/24 02:45 Range/Units Serum Glucose 99 74-106 mg/dL Problem List Cardiopulmonary arrest Status post CPR Metabolic encephalopathy Hypoxic encephalopathy Congestive heart failure Leukocytosis/sepsis Respiratory failure Elevated liver function tests S/P pacemaker insertion on 10/17/2024 Assessment/Plan Monitoring Supportive treatment ICU care Stabilize vitals Respiratory support/vent management Hold off Lipitor (elevated liver function tests), LDL (31) (home medications included Lipitor 40 mg daily) DVT prophylaxis GI prophylaxis Cardiology on case Pulmonology on case Nephrology on case Consult GI Re: Elevated liver function tests Need more history Pacemaker Insertion This medical document was created using an electronic medical record system with [employer] computerized dictation system. Although this document has been carefully reviewed, there may still be some phonetic and typographical errors. These areas are purely typographical due to imperfections of the software programs, and do not reflect any compromise in the patient's medical care. Prognosis guarded Dietary Evaluation Review Comments: 1) TF Jevity 1.2Cal @ 55 ml/hr. x 24hr along with Pro-stat 1 pk daily. Start @ 20ml/hr, increase 10ml/hr Q4H until goal is reached. TF @ goal volume provides 1684 kcal (100% energy needs), 88 gm protein (100% protein needs), 1065 ml free water. 2) Water flush 100ml Q4H if allowed, adjust PRN 3) Advance to cardiac diet as medically feasible 4) Monitor NPO status, lab values, wt trend, I/O Expected Outcomes/Goals: To meet >75% estimated needs within 7 days Lab values to improve Fu 2-3 days Plan discussed with: Other CAROLINE ROBB MD Oct 17, 2024 10:28
--- NOTE | 2024-10-17 10:29 | DVH ---
XY CHEST PORTABLE, HISTORY: 54 old Female S/P AICD INSERTION COMPARISON: XY CHEST PORTABLE on DOS: 10/15/24, XY CHEST PORTABLE on DOS: 10/14/24, XY CHEST PORTABLE on DOS: TECHNICAL DATA: 1 view of the chest was obtained. FINDINGS: Lines and tubes: A cardiac pacer is noted. ET, NG and right CVC is seen. Cardiomediastinal silhouette: Prominent Pulmonary vasculature: normal Lung expansion: Low Lung airspace: normal Lung interstitium: normal Pleura: normal Pneumothorax: no Bones: Unremarkable Other: no IMPRESSION: Placement of a cardiac pacer, no pneumothorax is seen. Stable lines and tubes.
--- NOTE | 2024-10-17 13:31 | DVHPN2 ---
Progress Note - Dictate Date Seen: Oct 17, 2024 Has the PT tested + for MRSA If YES, has PT been informed?: No Medical Necessity Reason Pt with a Central, PICC or Fol: Yes vital signs Vital Sign Date Time Temp Pulse Resp B/P (MAP) Pulse Ox O2 Delivery O2 Flow Rate FiO2 10/17/24 12:00 30 10/17/24 12:00 18 100 Mechanical Ventilator+ 10/17/24 11:45 97.7 77 95/44 (61) 207.9 Total Intake and Output 10/16/24 10/16/24 10/17/24 15:00 23:00 07:00 Intake Total 1123.878 ml 864.5945 ml 652.125 ml Output Total 2000 ml 1125 ml Balance 1123.878 ml -1135.4055 ml -472.875 ml medications Current Medications Medications Dose Ordered Sig/Liliam Route Start Time Stop Time Status Last Admin Dose Admin Midazolam HCl 50 ml @ 1 mls/hr Q24H IV 10/07/24 04:45 10/17/24 09:36 4 MLS/HR Ondansetron HCl 4 mg Q4HP PRN IV 10/07/24 10:00 Nitroglycerin 0.4 mg Q5MINP PRN SL 10/07/24 10:00 Pantoprazole Sodium 40 mg DAILY IV 10/07/24 10:00 10/17/24 09:25 40 MG Aspirin 81 mg DAILY PO 10/08/24 10:00 10/15/24 10:22 81 MG Mexiletine HCl 150 mg TID GT 10/08/24 22:00 10/17/24 13:28 150 MG Acetaminophen 500 mg Q6HP PRN PO 10/08/24 22:30 10/09/24 21:26 500 MG Enteral Nutritional Formula 1,000 ml 55ML/HR GT 10/09/24 18:45 10/12/24 21:34 1,000 ML Phenylephrine HCl 80 mg/Sodium Chloride 250 ml @ 7.5 mls/hr Q24H IV 10/10/24 09:30 10/17/24 04:04 16.875 MLS/HR Ertapenem 1 gm/ Sodium Chloride 50 ml @ 100 mls/hr DAILY IV 10/10/24 20:00 10/17/24 09:25 100 MLS/HR Furosemide 20 mg BIDD IV 10/12/24 18:00 10/17/24 06:00 20 MG Esmolol HCl 250 ml @ 0 mls/hr Q0M IV 10/14/24 10:45 Amino Acids 0 ml @ 0 mls/hr PER PHARMACY IV 10/15/24 18:45 Heparin Sodium/ Dextrose 250 ml @ 13 mls/hr [id number] IV 10/16/24 04:15 Diagnostic Test (Pha) 1 strip Q6HR 10/16/24 12:00 10/17/24 12:11 1 STRIP Insulin Human Regular FOLLOW SLIDING SCALE Q6HR SC 10/16/24 12:00 Dextrose 50 ml UD IV 10/16/24 09:30 Amino Acids/ Electrolytes/ Dextrose 1,000 ml @ 41 mls/hr DAILY@2200 IV 10/16/24 22:00 10/16/24 21:26 41 MLS/HR Fentanyl Citrate 250 ml @ 2.5 mls/hr Q24H IV 10/16/24 13:00 10/17/24 04:50 15 MLS/HR objective General Appearance: alert, no distress HEENT: EOMI, PERRLA, normal external inspect of ears, no icterus, no nasal drainage Neck: no carotid bruit, no jugular venous distention (JVD), no lymphadenopathy Chest: normal thorax Respiratory: clear to auscultation, normal air movement Cardiovascular: regular rate and rhythm, no diastolic murmur, no jugular venous distention (JVD), no rub, no systolic murmur Abdominal: soft, no hepatomegaly, no mass, no splenomegaly, no tenderness Genitourinary: grossly normal external Musculoskeletal: no joint tenderness, no swelling Extremities: normal pulses, no calf tenderness, no clubbing, no cyanosis, no edema Skin: no bruising, no jaundice, no rash Neurological: alert, No focal deficit laboratory and microbiology Laboratory Tests 10/17/24 05:00 10/17/24 02:45 Test 10/17/24 02:45 Range/Units Serum Glucose 99 74-106 mg/dL Problem List Cardiac Arrest with Ventricular Fibrillation Assessment: Patient experienced cardiac arrest with ventricular fibrillation on 10/07/24, witnessed by family members who initiated CPR. EMS found the patient in ventricular fibrillation and administered shock therapy. Rhythm strip analysis confirmed ventricular fibrillation. Patient required intubation and sedation upon ED arrival. Currently admitted to ICU for close observation. Cardiology has been consulted and plans for AICD placement, likely on Tuesday. Infectious disease clearance has been obtained for the AICD procedure, addressing initial concerns of leukocytosis which is now improving. Status post-cardiac arrest. Plan: - Continue ICU monitoring - Proceed with AICD placement as planned (likely Tuesday), cleared by infectious disease. - Maintain intubation and sedation until AICD placement - Continue Heparin drip for paroxysmal atrial fibrillation - Continue Mexitil - DC amiodarone due to transaminitis - added esmolol drip per Cardiology for AFib and added push doses of digoxin Coronary Artery Disease Assessment: Patient with history of 2-vessel CABG (Coronary Artery Bypass Grafting). Surgical intervention previously performed to address significant coronary artery stenosis. Plan: - Continue medical management - Follow up with cardiology for ongoing coronary artery disease management Acute and Chronic Systolic Heart Failure Assessment: Patient has acute and chronic systolic heart failure with severely reduced left ventricular function. Ejection fraction is estimated at 15-20%. RICHIE findings are consistent with severely reduced left ventricular ejection fraction, previously implanted mitral ring, up to moderate mitral stenosis and regurgitation, and moderate aortic insufficiency. Plan: - Continue cardiology consultation - continue IV diuretics (IV Lasix) - Monitor renal function Acute Hypoxic Respiratory Failure Assessment: Patient is currently intubated due to acute hypoxic respiratory failure. Dr. Downey from pulmonology is managing this aspect of care. Plan: - Maintain current intubation as per pulmonology recommendation - Proceed with CPAP trials when deemed appropriate by pulmonology Transaminitis Assessment: Patient has elevated liver function tests, likely secondary to amiodarone use. Cardiology has discontinued amiodarone in response. Plan: - Monitor liver function tests - Amiodarone discontinued as per cardiology Enterobacter PNA Assessment: Sputum culture positive for Enterobacter. Plan: - Continue treatment with Eratapenem to complete 10 days regimen -Infectious disease consult Hemodynamic Support Assessment: Patient requires vasopressor support for hemodynamic stability. Plan: - Continue vasopressin - Continue neosynephrine Paroxysmal a fib -DC amiodarone -continue with heparin gtt Assessment/Plan Subjective: Patient remains on ventilator and on sedation. Objective: Patient is status post AICD placement by Dr. Armstrong. Patient was admitted status post CPR and has respiratory failure. Liver enzymes are elevated, most likely related to amiodarone. Hemoglobin is 9.7. Platelet count is 89. Plan: CPAP scheduled for tomorrow. Continue current treatment. Monitor EKG. Continue tube feeding as tolerated. Dietary Evaluation Review Comments: 1) TF Jevity 1.2Cal @ 55 ml/hr. x 24hr along with Pro-stat 1 pk daily. Start @ 20ml/hr, increase 10ml/hr Q4H until goal is reached. TF @ goal volume provides 1684 kcal (100% energy needs), 88 gm protein (100% protein needs), 1065 ml free water. 2) Water flush 100ml Q4H if allowed, adjust PRN 3) Advance to cardiac diet as medically feasible 4) Monitor NPO status, lab values, wt trend, I/O Expected Outcomes/Goals: To meet >75% estimated needs within 7 days Lab values to improve Fu 2-3 days Plan discussed with: Patient, Other BRODIE GARVIN NP Oct 17, 2024 13:31
--- NOTE | 2024-10-17 14:34 | DVHPN2 ---
Progress Note - Dictate Date Seen: Oct 17, 2024 Has the PT tested + for MRSA If YES, has PT been informed?: No Medical Necessity Reason Pt with a Central, PICC or Fol: Yes vital signs Vital Sign Date Time Temp Pulse Resp B/P (MAP) Pulse Ox O2 Delivery O2 Flow Rate FiO2 10/17/24 14:00 76 10/17/24 14:00 18 100 Mechanical Ventilator+ 30 30 10/17/24 13:57 108/55 (72) 10/17/24 13:45 98.1 208.6 Total Intake and Output 10/16/24 10/16/24 10/17/24 14:59 22:59 06:59 Intake Total 1119.191 ml 887.9695 ml 652.125 ml Output Total 2000 ml 1125 ml Balance 1119.191 ml -1112.0305 ml -472.875 ml medications Current Medications Medications Dose Ordered Sig/Liliam Route Start Time Stop Time Status Last Admin Dose Admin Midazolam HCl 50 ml @ 1 mls/hr Q24H IV 10/07/24 04:45 10/17/24 09:36 4 MLS/HR Ondansetron HCl 4 mg Q4HP PRN IV 10/07/24 10:00 Nitroglycerin 0.4 mg Q5MINP PRN SL 10/07/24 10:00 Pantoprazole Sodium 40 mg DAILY IV 10/07/24 10:00 10/17/24 09:25 40 MG Aspirin 81 mg DAILY PO 10/08/24 10:00 10/15/24 10:22 81 MG Mexiletine HCl 150 mg TID GT 10/08/24 22:00 10/17/24 13:28 150 MG Acetaminophen 500 mg Q6HP PRN PO 10/08/24 22:30 10/09/24 21:26 500 MG Enteral Nutritional Formula 1,000 ml 55ML/HR GT 10/09/24 18:45 10/12/24 21:34 1,000 ML Phenylephrine HCl 80 mg/Sodium Chloride 250 ml @ 7.5 mls/hr Q24H IV 10/10/24 09:30 10/17/24 04:04 16.875 MLS/HR Ertapenem 1 gm/ Sodium Chloride 50 ml @ 100 mls/hr DAILY IV 10/10/24 20:00 10/17/24 09:25 100 MLS/HR Furosemide 20 mg BIDD IV 10/12/24 18:00 10/17/24 06:00 20 MG Esmolol HCl 250 ml @ 0 mls/hr Q0M IV 10/14/24 10:45 Amino Acids 0 ml @ 0 mls/hr PER PHARMACY IV 10/15/24 18:45 Heparin Sodium/ Dextrose 250 ml @ 13 mls/hr [id number] IV 10/16/24 04:15 Diagnostic Test (Pha) 1 strip Q6HR 10/16/24 12:00 10/17/24 12:11 1 STRIP Insulin Human Regular FOLLOW SLIDING SCALE Q6HR SC 10/16/24 12:00 Dextrose 50 ml UD IV 10/16/24 09:30 Amino Acids/ Electrolytes/ Dextrose 1,000 ml @ 41 mls/hr DAILY@2200 IV 10/16/24 22:00 10/16/24 21:26 41 MLS/HR Fentanyl Citrate 250 ml @ 2.5 mls/hr Q24H IV 10/16/24 13:00 10/17/24 04:50 15 MLS/HR laboratory and microbiology Laboratory Tests 10/17/24 05:00 10/17/24 02:45 Test 10/17/24 02:45 Range/Units Serum Glucose 99 74-106 mg/dL Assessment/Plan Assessment/Plan Plan/Recommendation ASSESSMENT: This is a 54-year old female who initially presented 10/07/2024 due to witnessed syncope. As per records and having spoke with family members (son/father), patient had collapsed in the kitchen as witnessed by nearby family members whom had initiated CPR. EMS had been called for further medical attention and upon their arrival reports indicate the patient had been found in ventricular fibrillation for which she was subsequently shocked by EMS and upon rhythm strip analysis of the event, rhythm itself does reveal evidence for what appears to be ventricular fibrillation requiring shock x 1 which upon ED arrival 12-lead electrocardiogram had revealed sinus rhythm at 84bpm, QRS of 96ms with a QTC interval of 495 ms. Upon ED arrival patient was intubated and initiated on Amiodarone infusion for rhythm management. Patient was later admitted to the ICU for close observation/management and had been noted to experience episodes of ventricular tachycardia that had degenerated into ventricular fibrillation resulting in cardiac arrest requiring initiation of CPR/ACLS protocol which the patient was subsequently shocked x 1 resulting in ROSC. Patient did undergo subsequent cardiac catheterization 10/08/2024 by Interventional Cardiology services revealing patent RICHMOND to LAD, patent SVG to obtuse marginal, proximal disease involving LAD and LCX. Echocardiogram 10/07/2024 had revealed a severely reduced LVEF function of 15-20%, dilated LV with severe global dysfunction, biatrial enlargement, moderate mitral insufficiency with mild to moderate aortic insufficiency. TTE itself had questioned potential presence of mitral ring and potential underlying component of mitral stenosis which subsequent RICHIE 10/08/2024 had revealed evidence of mitral ring with up to moderate mitral stenosis/mitral insufficiency in addition to moderate aortic insufficiency. Throughout course of present admission, patient has been furthermore noted to experience episodes of paroxysmal atrial fibrillation for which she has been maintained on anticoagulation for CVA prophylaxis. As the patient presented and was found to experience episodes of ventricular fibrillation requiring a total of 2 shocks, Electrophysiology services were later involved by Interventional Cardiology request to evaluate the patient for potential AICD implantation. Reported past medical history includes congenital heart disease, coronary artery disease status post previous bypass surgery Echocardiogram: (10/07/2024) revealed lvef 15-20% dilated LV severe global dysfunction mild RV dysfunction biatrial enlargement mild moderate MAC, moderate mitral regurg mild to moderate aortic regug (images of echo reviewed and questioned presence of mitral ring and also some component (moderate of Mitral stenosis) Cardiac Catheterization: (10/08/2024) revealed Patent RICHMOND to LAD; Patent SVG to obtuse marginal; LVEF of 20% with increased EDP; Proximal disease in LAD/LCX Transesophageal Echocardiogram (10/08/2024) revealed was performed: Consistent with severely reduced LVEF. Consistent with previously implanted Mitral ring, Up to moderate Mitral stenosis/Mitral Regurgitation and also Moderate Aortic insufficiency. Syncope, witnessed Cardiac arrest, status post ROSC Ventricular fibrillation, requiring shock x 2 Ventricular tachycardia with degeneration to ventricular fibrillation Systolic heart failure, severely reduced LV function of 15-20% Paroxysmal atrial fibrillation, currently sinus rhythm Coronary artery disease, s/p previous 2-V CABG Valvular heart disease, s/p previous mitral ring Beta-hemolytic group B streptococcus QRS < 120 milliseconds Secondary prevention Status post successful Biotronik DX AICD implantation 10/17/2024 ELECTROPHYSIOLOGY SUGGESTIONS FOR MANAGEMENT: Seen and examined at the bedside within the ICU. Status post successful Biotronik DX AICD implantation 10/17/2024. Post operative chest imaging revealed no evidence for pneumothorax. Dressing to site of implantation appears clean, dry, and intact upon visual inspection. Dressing is to remain clean, dry, and intact. To proceed with sling to left upper extremity. Proceed with Doxycycline 100mg twice daily for a total of 14 doses. Proceed to hold anti- platelet/anticoagulation therapy for approximately seven day post device implantation to reduce potential risk for unwarranted intra-pocket hemorrhage. Will need to have man removed this upcoming Tuesday10/24/2024. Remainder of cardiac management as per Interventional Cardiology services. Will proceed to follow from an EP perspective. GDMT for systolic heart failure as current conditions permit Proceed with close rate and rhythm surveillance Proceed with close hemodynamic surveillance Proceed with optimized blood pressure control Transfuse to sustain HGB level above 7.0 Sustain Magnesium level greater than 2.0 Sustain Potassium level greater than 4.0 Follow up renal function and electrolytes Management of ongoing concurrent medical conditions as per primary team Management of beta-hemolytic group B strep as per primary team/ID Management comorbidities as per primary team Management in the ICU Follow up wireless consultant recommendations Will proceed to follow from an EP perspective Further recommendations per clinical progression All available diagnostic labs, EKG's, and images were personally reviewed Patient's status, findings, and plan of care was reviewed and discussed with supervising physician Dr. Armstrong, who is in agreement with current plan of care. Plan of care discussed with and agreed upon by family / primary RN Prognosis: Guarded Thank you for allowing me to participate in the care of this patient. Further recommendations based on patients clinical course and progression, primary attending, and other consultants. Will continue to follow with primary attending. If you have any questions or concerns, please do not hesitate to contact me. A total of 75 minutes was spent reviewing the patient record, examining the patient, making a diagnostic and therapeutic plan, discussing this plan with medical personnel, following up on diagnostic studies and following the patient for clinical stability excluding any and all procedures. At least 50% of this time was spent in direct, [id number] contact. Plan discussed with: Other (Primary RN and Patient Son) Dietary Evaluation Review Comments: 1) TF Jevity 1.2Cal @ 55 ml/hr. x 24hr along with Pro-stat 1 pk daily. Start @ 20ml/hr, increase 10ml/hr Q4H until goal is reached. TF @ goal volume provides 1684 kcal (100% energy needs), 88 gm protein (100% protein needs), 1065 ml free water. 2) Water flush 100ml Q4H if allowed, adjust PRN 3) Advance to cardiac diet as medically feasible 4) Monitor NPO status, lab values, wt trend, I/O Expected Outcomes/Goals: To meet >75% estimated needs within 7 days Lab values to improve Fu 2-3 days Plan discussed with: Other (Primary rn ) TUCKER CRUZ PEST CONTROL OPERATOR Oct 17, 2024 14:34
--- NOTE | 2024-10-17 14:58 | ECG ---
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
--- NOTE | 2024-10-17 15:04 | DVH ---
Date: 10/17/2024 02:15 PM Examination: XY KUB ABDOMEN SINGLE VIEW History: no bm 2 weeks Comparison: None TECHNIQUE: Frontal views of the abdomen was obtained. FINDINGS: Bowel gas pattern is unremarkable. The lung bases are unremarkable. No acute osseous abnormality identified. Nasogastric tube tip in the stomach. Large stool burden. Westfall catheter overlying the bladder. IMPRESSION: Nonobstructive bowel gas pattern. Nasogastric tube tip in the stomach. Large stool burden.
[2024-10-17] MEDS: SODIUM PHOSPHATES 40 MEQ in D5W 5% 250 ML IV ONE (16:18)
--- NOTE | 2024-10-17 16:42 | DVHPN2 ---
Progress Note Date Seen: Oct 17, 2024 Resident Creating Document: SHANKAR VALDEZ RESIDENT Has the PT tested + for MRSA If YES, has PT been informed?: No Medical Necessity Reason Pt with a Central, PICC or Fol: Yes Subjective Review of Systems Today's progress- The patient remains intubated and mechanically ventilated in ICU. She underwent ICD placement today. She continues on Clinimix TPN for nutrition and has no reported bowel movement. MiraLax via NG tube was initiated as a part of her bowel regimen. LFTs have normalized. Hemoglobin is stable at 9.7. Platelets are low at 89 K. WBC count is elevated at 12.0 PT INR mildly elevated at 12.2 and 1.17. APTT is within normal limits at 29.0. Objective vital signs Vital Sign Date Time Temp Pulse Resp B/P (MAP) Pulse Ox O2 Delivery O2 Flow Rate FiO2 10/17/24 16:15 97.7 74 19 119/59 (79) 100 207.9 10/17/24 16:00 30 10/17/24 16:00 Mechanical Ventilator+ Total Intake and Output 10/16/24 10/16/24 10/17/24 15:00 23:00 07:00 Intake Total 1123.878 ml 864.5945 ml 652.125 ml Output Total 2000 ml 1125 ml Balance 1123.878 ml -1135.4055 ml -472.875 ml medications Current Medications Medications Dose Ordered Sig/Liliam Route Start Time Stop Time Status Last Admin Dose Admin Midazolam HCl 50 ml @ 1 mls/hr Q24H IV 10/07/24 04:45 10/17/24 09:36 4 MLS/HR Ondansetron HCl 4 mg Q4HP PRN IV 10/07/24 10:00 Nitroglycerin 0.4 mg Q5MINP PRN SL 10/07/24 10:00 Pantoprazole Sodium 40 mg DAILY IV 10/07/24 10:00 10/17/24 09:25 40 MG Aspirin 81 mg DAILY PO 10/08/24 10:00 10/15/24 10:22 81 MG Mexiletine HCl 150 mg TID GT 10/08/24 22:00 10/17/24 13:28 150 MG Acetaminophen 500 mg Q6HP PRN PO 10/08/24 22:30 10/09/24 21:26 500 MG Enteral Nutritional Formula 1,000 ml 55ML/HR GT 10/09/24 18:45 10/12/24 21:34 1,000 ML Phenylephrine HCl 80 mg/Sodium Chloride 250 ml @ 7.5 mls/hr Q24H IV 10/10/24 09:30 10/17/24 04:04 16.875 MLS/HR Ertapenem 1 gm/ Sodium Chloride 50 ml @ 100 mls/hr DAILY IV 10/10/24 20:00 10/17/24 09:25 100 MLS/HR Furosemide 20 mg BIDD IV 10/12/24 18:00 10/17/24 06:00 20 MG Esmolol HCl 250 ml @ 0 mls/hr Q0M IV 10/14/24 10:45 Amino Acids 0 ml @ 0 mls/hr PER PHARMACY IV 10/15/24 18:45 Heparin Sodium/ Dextrose 250 ml @ 13 mls/hr [id number] IV 10/16/24 04:15 Diagnostic Test (Pha) 1 strip Q6HR 10/16/24 12:00 10/17/24 12:11 1 STRIP Insulin Human Regular FOLLOW SLIDING SCALE Q6HR SC 10/16/24 12:00 Dextrose 50 ml UD IV 10/16/24 09:30 Amino Acids/ Electrolytes/ Dextrose 1,000 ml @ 41 mls/hr DAILY@2200 IV 10/16/24 22:00 10/16/24 21:26 41 MLS/HR Fentanyl Citrate 250 ml @ 2.5 mls/hr Q24H IV 10/16/24 13:00 10/17/24 04:50 15 MLS/HR Polyethylene Glycol 17 gm DAILYPRN PRN GT 10/17/24 16:45 UNV Examination GENERAL:Normal, LUNGS:Abnormal (diminished on ventillator ), ABDOMEN:Normal, SKIN:Normal, NEURO:Normal laboratory and microbiology Laboratory Tests 10/17/24 05:00 10/17/24 02:45 Test 10/17/24 02:45 Range/Units Serum Glucose 99 74-106 mg/dL Microbiology Date/Time Source Procedure Growth Status 10/13/24 11:00 Sputum Endotracheal Wash Gram Stain - Final Resulted 10/13/24 11:00 Respiratory Culture - Preliminary Presumptive Ilda albicans Resulted 10/09/24 08:49 Blood Blood Culture - Final NO GROWTH AFTER 5 DAYS OF INCUBATION. Complete 10/07/24 16:50 Nose MRSA Screen - Final Complete Problem List/Assessment/Plan Problem List/Assessment/Plan Acute hepatocellular injury most likely SHOCK LIVER RATHER THAN AMIODARONE INDUCED HEPATOTOXICITY NAFLD with steatohepatitis Cholelithiasis without acute inflammation Plan/Recommendation Plan Hepatic / GI * Continue to trend LFTs, INR, albumin daily * Avoid all hepatotoxic medications amiodarone documented as causing hepatotoxicity * Monitor for signs of acute liver failure (AMS, INR >1.5, hypoglycemia) * Maintain hemodynamic stability to optimize hepatic perfusion. Continue protonix Nutrition START CLINIMIX TPN VIA IV TODAY. START MIRALAX 17 G VIA G-TUBE prn FOR CONSTIPATION. * Continue current enteral feeding via GT at 55 mL/hr (1.2 Ron/Fiber formula) * Monitor tolerance, bowel function, and risk for aspiration * Check nutrition labs (albumin, prealbumin weekly) Gallstones * Cholelithiasis without acute inflammation no surgical intervention needed at present * Outpatient surgical evaluation if future biliary symptoms occur Coagulopathy * Mild INR elevation, likely multifactorial (acute liver injury + anticoagulation) * Continue monitoring; vitamin K if INR worsens or bleeding occurs Infection Control (GI-relevant) * Continue current antibiotic therapy: Ertapenem 1 g IV daily (for non-GI infection per primary/ID) * Monitor for secondary biliary sepsis; repeat RUQ ultrasound if bilirubin rises or leukocytosis worsens Case discussed in detail with the attending physician, including the clinical presentation, diagnostic workup, and comprehensive management plan. Plan discussed with: Other (RN) My Orders My Orders Orders - SHANKAR VALDEZ RESIDENT Procedure Category Date Status Time Sodium Phosphates PHA 10/17/24 In Process 14:15 Comprehensive LAB 10/18/24 Verified Metabolic Panel 04:00 Magnesium LAB 10/18/24 Verified 04:00 Phosphorus LAB 10/18/24 Verified 04:00 Clinimix Per Pharmacy LUIS ARMANDO 10/17/24 In Process 22:00 Complete Blood Count LAB 10/18/24 Verified 04:00 Polyethylene Glycol PHA 10/17/24 Logged 17g Powder (Miralax 16:45 Dietary Evaluation Review Comments: 1) TF Jevity 1.2Cal @ 55 ml/hr. x 24hr along with Pro-stat 1 pk daily. Start @ 20ml/hr, increase 10ml/hr Q4H until goal is reached. TF @ goal volume provides 1684 kcal (100% energy needs), 88 gm protein (100% protein needs), 1065 ml free water. 2) Water flush 100ml Q4H if allowed, adjust PRN 3) Advance to cardiac diet as medically feasible 4) Monitor NPO status, lab values, wt trend, I/O Expected Outcomes/Goals: To meet >75% estimated needs within 7 days Lab values to improve Fu 2-3 days SHANKAR VALDEZ RESIDENT Oct 17, 2024 16:42
[2024-10-17] MEDS: POLYETHYLENE GLYCOL 17 GM PWDR GT PRN (17:38)
--- NOTE | 2024-10-17 17:39 | DVHPN2 ---
Progress Note - Dictate Date Seen: Oct 17, 2024 Has the PT tested + for MRSA If YES, has PT been informed?: No Medical Necessity Reason Pt with a Central, PICC or Fol: Yes vital signs Vital Sign Date Time Temp Pulse Resp B/P (MAP) Pulse Ox O2 Delivery O2 Flow Rate FiO2 10/17/24 17:00 97.5 74 16 128/61 (83) 100 207.5 10/17/24 16:00 30 10/17/24 16:00 Mechanical Ventilator+ Total Intake and Output 10/16/24 10/16/24 10/17/24 15:00 23:00 07:00 Intake Total 1123.878 ml 864.5945 ml 652.125 ml Output Total 2000 ml 1125 ml Balance 1123.878 ml -1135.4055 ml -472.875 ml medications Current Medications Medications Dose Ordered Sig/Liliam Route Start Time Stop Time Status Last Admin Dose Admin Midazolam HCl 50 ml @ 1 mls/hr Q24H IV 10/07/24 04:45 10/17/24 09:36 4 MLS/HR Ondansetron HCl 4 mg Q4HP PRN IV 10/07/24 10:00 Nitroglycerin 0.4 mg Q5MINP PRN SL 10/07/24 10:00 Pantoprazole Sodium 40 mg DAILY IV 10/07/24 10:00 10/17/24 09:25 40 MG Aspirin 81 mg DAILY PO 10/08/24 10:00 10/15/24 10:22 81 MG Mexiletine HCl 150 mg TID GT 10/08/24 22:00 10/17/24 13:28 150 MG Acetaminophen 500 mg Q6HP PRN PO 10/08/24 22:30 10/09/24 21:26 500 MG Enteral Nutritional Formula 1,000 ml 55ML/HR GT 10/09/24 18:45 10/12/24 21:34 1,000 ML Phenylephrine HCl 80 mg/Sodium Chloride 250 ml @ 7.5 mls/hr Q24H IV 10/10/24 09:30 10/17/24 04:04 16.875 MLS/HR Ertapenem 1 gm/ Sodium Chloride 50 ml @ 100 mls/hr DAILY IV 10/10/24 20:00 10/17/24 09:25 100 MLS/HR Furosemide 20 mg BIDD IV 10/12/24 18:00 10/17/24 06:00 20 MG Esmolol HCl 250 ml @ 0 mls/hr Q0M IV 10/14/24 10:45 Amino Acids 0 ml @ 0 mls/hr PER PHARMACY IV 10/15/24 18:45 Heparin Sodium/ Dextrose 250 ml @ 13 mls/hr [id number] IV 10/16/24 04:15 Diagnostic Test (Pha) 1 strip Q6HR 10/16/24 12:00 10/17/24 12:11 1 STRIP Insulin Human Regular FOLLOW SLIDING SCALE Q6HR SC 10/16/24 12:00 Dextrose 50 ml UD IV 10/16/24 09:30 Amino Acids/ Electrolytes/ Dextrose 1,000 ml @ 41 mls/hr DAILY@2200 IV 10/16/24 22:00 10/16/24 21:26 41 MLS/HR Fentanyl Citrate 250 ml @ 2.5 mls/hr Q24H IV 10/16/24 13:00 10/17/24 04:50 15 MLS/HR Polyethylene Glycol 17 gm DAILYPRN PRN GT 10/17/24 16:45 laboratory and microbiology Laboratory Tests 10/17/24 05:00 10/17/24 02:45 Test 10/17/24 02:45 Range/Units Serum Glucose 99 74-106 mg/dL Assessment/Plan s/p cardiac arrest VT CPR <5 min elevated troponin acute resp failure atelectases pt seen and examined on the ICU events on mechanical ventilation PEEP 5, FiO2 30% pacemaker placed today management plan daily sedation holidays ok to use precedex cont abx monitor cx monitor labs renal function daily abg and CXR dvt proph/on heparin drip f/u cardiology crit care time 35 min Dietary Evaluation Review Comments: 1) TF Jevity 1.2Cal @ 55 ml/hr. x 24hr along with Pro-stat 1 pk daily. Start @ 20ml/hr, increase 10ml/hr Q4H until goal is reached. TF @ goal volume provides 1684 kcal (100% energy needs), 88 gm protein (100% protein needs), 1065 ml free water. 2) Water flush 100ml Q4H if allowed, adjust PRN 3) Advance to cardiac diet as medically feasible 4) Monitor NPO status, lab values, wt trend, I/O Expected Outcomes/Goals: To meet >75% estimated needs within 7 days Lab values to improve Fu 2-3 days Plan discussed with: Patient BELLO ROTHMAN MD Oct 17, 2024 17:39
--- NOTE | 2024-10-17 19:15 | DVHOP2 ---
Operative Report 10/17/24 Dictated By: Galo Armstrong MD INDICATIONS: Syncope, witnessed Cardiac arrest, status post ROSC Ventricular fibrillation, requiring shock x 2 Ventricular tachycardia with degeneration to ventricular fibrillation Systolic heart failure, severely reduced LV function of 15-20% Paroxysmal atrial fibrillation, currently sinus rhythm Coronary artery disease, s/p previous 2-V CABG Valvular heart disease, s/p previous mitral ring QRS < 120 milliseconds Secondary prevention Proceed with implantation of AICD for secondary prevention of sudden cardiac PROCEDURES: 1. Implantation of AICD lead in right ventricle, active fixation, DX from [employer], Sensing A, sense and pace V 2. Implantation of the dual chamber AICD generator, DX from [employer], MRI. 3. Fluoroscopy images and interpretation. 4. Interrogation and programming of the device. 5. Conscious sedation with fentanyl and Versed for one hour 6. Left subclavian venogram, one axillary accesses obtained PROCEDURE IN DETAILS: 1. After obtaining informed consent with explanation of risks, benefits and alternatives, the patient agreed upon the planned procedure, implantation of dual chamber AICD, Dx secondary to non ischemic cardiomyopathy. Under a standard fashion, local and systemic anesthetic, conscious sedation with fentanyl and Versed, supervised by myself, right deltopectoral area was prepped and draped. Left deltopectoral pocket was made, one axillary access was obtained 1. Through the first access, AICD lead was advanced into the right interventricular septum. Sensing was 10 mv with pacing threshold 0.5 v at o.5 ms. Impedance of 491 ohms. Sensing A 4 MV (not augmented) 3. New Dual-chamber dual AICD generator, DX from [employer] was connected to the lead. A Sense/V sense and Pace. The pocket was irrigated with antibiotic solution. Antibiotic powder was poured into the pocket. The skin was closed in 2 layers and at the end was stapled. CONCLUSION: 1. Status post successful implantation of dual chamber AICD, DX [employer], Device was programmed into VDI lower rate of 40 bpm 2. There was no immediate complication. GALO ARMSTRONG MD Oct 17, 2024 19:14
[2024-10-17] MEDS ORDERED: METOCLOPRAMIDE HCL 5MG/ml INJ 2ml VIAL IV SCH (22:00)
[2024-10-18] VITALS (108 sets, daily range): BP systolic 89–131; BP diastolic 43–64; PULSE 68–79; RESP 8–27; TEMP 93.4–100.4; O2SAT 99–100
[2024-10-18 03:24] LABS: Hematocrit 28.1 % (36.0-46.0)
[2024-10-18 03:28] LABS: Hemoglobin 9.3 g/dL (12.2-16.2); Mean Corpuscular Hemoglobin 31.5 pg (28.0-32.0); Mean Corpuscular Volume 94.6 fL (80.0-100.0); Nucleated Red Blood Cells % 0.2 %
[2024-10-18 03:47] LABS: Alanine Aminotransferase 18 U/L (7-40); Alkaline Phosphatase 114 U/L (46-116); Anion Gap 12 (5-15); BUN/Creatinine Ratio 13.8 (10.0-20.0); Carbon Dioxide 20 mmol/L (20-31); Chloride 103 mmol/L (98-107); Glucose 79 mg/dL (74-106); Magnesium 1.8 mg/dL (1.6-2.6); Total Protein 5.8 g/dL (5.7-8.2)
[2024-10-18 03:48] LABS: Bilirubin, Total 0.7 mg/dL (0.2-1.0)
[2024-10-18 04:21] LABS: Albumin 2.7 g/dL (3.2-4.8); Blood Urea Nitrogen 9 mg/dL (9-23); Calcium 7.8 mg/dL (8.7-10.4); Potassium 3.4 mmol/L (3.5-5.1); Sodium 135 mmol/L (136-145)
[2024-10-18 06:09] LABS: Base Excess -0.6 mmol/L (-2.0-3.0)
[2024-10-18] MEDS: POTASSIUM CHL 20MEQ/100ML 100 ML IV SCH (06:09)
--- NOTE | 2024-10-18 07:11 | DVHPN2 ---
Progress Note - Dictate Date Seen: Oct 18, 2024 Has the PT tested + for MRSA If YES, has PT been informed?: No Medical Necessity Reason Pt with a Central, PICC or Fol: Yes vital signs Vital Sign Date Time Temp Pulse Resp B/P (MAP) Pulse Ox O2 Delivery O2 Flow Rate FiO2 10/18/24 06:45 99.1 75 14 122/58 (79) 100 210.4 10/18/24 06:00 Mechanical Ventilator+ 30 30 Total Intake and Output 10/17/24 10/17/24 10/18/24 15:00 23:00 07:00 Intake Total 783.752 ml 710.004 ml 565.628 ml Output Total 975 ml 1250 ml Balance 783.752 ml -264.996 ml -684.372 ml medications Current Medications Medications Dose Ordered Sig/Liliam Route Start Time Stop Time Status Last Admin Dose Admin Midazolam HCl 50 ml @ 1 mls/hr Q24H IV 10/07/24 04:45 10/17/24 22:27 4 MLS/HR Ondansetron HCl 4 mg Q4HP PRN IV 10/07/24 10:00 Nitroglycerin 0.4 mg Q5MINP PRN SL 10/07/24 10:00 Pantoprazole Sodium 40 mg DAILY IV 10/07/24 10:00 10/17/24 09:25 40 MG Aspirin 81 mg DAILY PO 10/08/24 10:00 10/15/24 10:22 81 MG Mexiletine HCl 150 mg TID GT 10/08/24 22:00 10/18/24 06:10 150 MG Acetaminophen 500 mg Q6HP PRN PO 10/08/24 22:30 10/09/24 21:26 500 MG Enteral Nutritional Formula 1,000 ml 55ML/HR GT 10/09/24 18:45 10/18/24 03:07 1,000 ML Phenylephrine HCl 80 mg/Sodium Chloride 250 ml @ 7.5 mls/hr Q24H IV 10/10/24 09:30 10/17/24 19:43 12.188 MLS/HR Ertapenem 1 gm/ Sodium Chloride 50 ml @ 100 mls/hr DAILY IV 10/10/24 20:00 10/17/24 09:25 100 MLS/HR Furosemide 20 mg BIDD IV 10/12/24 18:00 10/18/24 06:08 20 MG Esmolol HCl 250 ml @ 0 mls/hr Q0M IV 10/14/24 10:45 Amino Acids 0 ml @ 0 mls/hr PER PHARMACY IV 10/15/24 18:45 Heparin Sodium/ Dextrose 250 ml @ 13 mls/hr [id number] IV 10/16/24 04:15 Diagnostic Test (Pha) 1 strip Q6HR 10/16/24 12:00 10/18/24 06:09 1 STRIP Insulin Human Regular FOLLOW SLIDING SCALE Q6HR SC 10/16/24 12:00 Dextrose 50 ml UD IV 10/16/24 09:30 Amino Acids/ Electrolytes/ Dextrose 1,000 ml @ 41 mls/hr DAILY@2200 IV 10/16/24 22:00 10/17/24 22:25 41 MLS/HR Fentanyl Citrate 250 ml @ 2.5 mls/hr Q24H IV 10/16/24 13:00 10/17/24 22:26 10 MLS/HR Polyethylene Glycol 17 gm DAILYPRN PRN GT 10/17/24 16:45 10/17/24 17:38 17 GM Potassium Chloride 100 ml @ 50 mls/hr Q2H IV 10/18/24 05:45 10/18/24 09:44 10/18/24 06:09 50 MLS/HR laboratory and microbiology Laboratory Tests 10/18/24 02:32 Test 10/18/24 02:32 Range/Units Serum Glucose 79 74-106 mg/dL Assessment/Plan Assessment/Plan Plan/Recommendation ASSESSMENT: This is a 54-year old female who initially presented 10/07/2024 due to witnessed syncope. As per records and having spoke with family members (son/father), patient had collapsed in the kitchen as witnessed by nearby family members whom had initiated CPR. EMS had been called for further medical attention and upon their arrival reports indicate the patient had been found in ventricular fibrillation for which she was subsequently shocked by EMS and upon rhythm strip analysis of the event, rhythm itself does reveal evidence for what appears to be ventricular fibrillation requiring shock x 1 which upon ED arrival 12-lead electrocardiogram had revealed sinus rhythm at 84bpm, QRS of 96ms with a QTC interval of 495 ms. Upon ED arrival patient was intubated and initiated on Amiodarone infusion for rhythm management. Patient was later admitted to the ICU for close observation/management and had been noted to experience episodes of ventricular tachycardia that had degenerated into ventricular fibrillation resulting in cardiac arrest requiring initiation of CPR/ACLS protocol which the patient was subsequently shocked x 1 resulting in ROSC. Patient did undergo subsequent cardiac catheterization 10/08/2024 by Interventional Cardiology services revealing patent RICHMOND to LAD, patent SVG to obtuse marginal, proximal disease involving LAD and LCX. Echocardiogram 10/07/2024 had revealed a severely reduced LVEF function of 15-20%, dilated LV with severe global dysfunction, biatrial enlargement, moderate mitral insufficiency with mild to moderate aortic insufficiency. TTE itself had questioned potential presence of mitral ring and potential underlying component of mitral stenosis which subsequent RICHIE 10/08/2024 had revealed evidence of mitral ring with up to moderate mitral stenosis/mitral insufficiency in addition to moderate aortic insufficiency. Throughout course of present admission, patient has been furthermore noted to experience episodes of paroxysmal atrial fibrillation for which she has been maintained on anticoagulation for CVA prophylaxis. As the patient presented and was found to experience episodes of ventricular fibrillation requiring a total of 2 shocks, Electrophysiology services were later involved by Interventional Cardiology request to evaluate the patient for potential AICD implantation. Reported past medical history includes congenital heart disease, coronary artery disease status post previous bypass surgery Echocardiogram: (10/07/2024) revealed lvef 15-20% dilated LV severe global dysfunction mild RV dysfunction biatrial enlargement mild moderate MAC, moderate mitral regurg mild to moderate aortic regug (images of echo reviewed and questioned presence of mitral ring and also some component (moderate of Mitral stenosis) Cardiac Catheterization: (10/08/2024) revealed Patent RICHMOND to LAD; Patent SVG to obtuse marginal; LVEF of 20% with increased EDP; Proximal disease in LAD/LCX Transesophageal Echocardiogram (10/08/2024) revealed was performed: Consistent with severely reduced LVEF. Consistent with previously implanted Mitral ring, Up to moderate Mitral stenosis/Mitral Regurgitation and also Moderate Aortic insufficiency. Syncope, witnessed Cardiac arrest, status post ROSC Ventricular fibrillation, requiring shock x 2 Ventricular tachycardia with degeneration to ventricular fibrillation Systolic heart failure, severely reduced LV function of 15-20% Paroxysmal atrial fibrillation, currently sinus rhythm Coronary artery disease, s/p previous 2-V CABG Valvular heart disease, s/p previous mitral ring Beta-hemolytic group B streptococcus QRS < 120 milliseconds Secondary prevention Status post successful [employer] DX AICD implantation 10/17/2024 ELECTROPHYSIOLOGY SUGGESTIONS FOR MANAGEMENT: Seen and examined at the bedside within the ICU. Status post successful [employer] DX AICD implantation 10/17/2024. Subsequent device interrogation had revealed adequate sensing/pacing parameters, overall appropriately functioning device. Post operative chest imaging revealed no evidence for pneumothorax. Dressing to site of implantation appears clean, dry, and intact upon visual inspection. Dressing is to remain clean, dry, and intact. To proceed with sling to left upper extremity. Proceed with Doxycycline 100mg twice daily for a total of 14 doses. Proceed to hold anti-platelet/anticoagulation therapy for approximately seven day post device implantation to reduce potential risk for unwarranted intra-pocket hemorrhage. Will need to have man removed this upcoming Tuesday10/24/2024. Remainder of cardiac management as per Interventional Cardiology services. EP-arenas, remains stable GDMT for systolic heart failure as current conditions permit Proceed with close rate and rhythm surveillance Proceed with close hemodynamic surveillance Proceed with optimized blood pressure control Transfuse to sustain HGB level above 7.0 Sustain Magnesium level greater than 2.0 Sustain Potassium level greater than 4.0 Follow up renal function and electrolytes Management of ongoing concurrent medical conditions as per primary team Management of beta-hemolytic group B strep as per primary team/ID Management comorbidities as per primary team Management in the ICU Follow up data center consultant recommendations Will proceed to follow from an EP perspective Further recommendations per clinical progression All available diagnostic labs, EKG's, and images were personally reviewed Patient's status, findings, and plan of care was reviewed and discussed with supervising physician Dr. Armstrong, who is in agreement with current plan of care. Plan of care discussed with and agreed upon by family / primary RN Prognosis: Guarded Thank you for allowing me to participate in the care of this patient. Further recommendations based on patients clinical course and progression, primary attending, and other consultants. Will continue to follow with primary attending. If you have any questions or concerns, please do not hesitate to contact me. A total of 75 minutes was spent reviewing the patient record, examining the patient, making a diagnostic and therapeutic plan, discussing this plan with medical personnel, following up on diagnostic studies and following the patient for clinical stability excluding any and all procedures. At least 50% of this time was spent in direct, [id number] contact. Plan discussed with: Other (Primary RN and Patient Son) Dietary Evaluation Review Comments: 1) TF Jevity 1.2Cal @ 55 ml/hr. x 24hr along with Pro-stat 1 pk daily. Start @ 20ml/hr, increase 10ml/hr Q4H until goal is reached. TF @ goal volume provides 1684 kcal (100% energy needs), 88 gm protein (100% protein needs), 1065 ml free water. 2) Water flush 100ml Q4H if allowed, adjust PRN 3) Advance to cardiac diet as medically feasible 4) Monitor NPO status, lab values, wt trend, I/O Expected Outcomes/Goals: To meet >75% estimated needs within 7 days Lab values to improve Fu 2-3 days Plan discussed with: Other (primary rn ) TUCKER CRUZP Oct 18, 2024 07:11
--- NOTE | 2024-10-18 07:33 | DVHPN2 ---
Progress Note - Dictate Date Seen: Oct 18, 2024 Has the PT tested + for MRSA If YES, has PT been informed?: No Medical Necessity Reason Pt with a Central, PICC or Fol: Yes vital signs Vital Sign Date Time Temp Pulse Resp B/P (MAP) Pulse Ox O2 Delivery O2 Flow Rate FiO2 10/18/24 06:45 99.1 75 14 122/58 (79) 100 210.4 10/18/24 06:00 Mechanical Ventilator+ 30 30 Total Intake and Output 10/17/24 10/17/24 10/18/24 15:00 23:00 07:00 Intake Total 783.752 ml 710.004 ml 565.628 ml Output Total 975 ml 1250 ml Balance 783.752 ml -264.996 ml -684.372 ml medications Current Medications Medications Dose Ordered Sig/Liliam Route Start Time Stop Time Status Last Admin Dose Admin Midazolam HCl 50 ml @ 1 mls/hr Q24H IV 10/07/24 04:45 10/17/24 22:27 4 MLS/HR Ondansetron HCl 4 mg Q4HP PRN IV 10/07/24 10:00 Nitroglycerin 0.4 mg Q5MINP PRN SL 10/07/24 10:00 Pantoprazole Sodium 40 mg DAILY IV 10/07/24 10:00 10/17/24 09:25 40 MG Aspirin 81 mg DAILY PO 10/08/24 10:00 10/15/24 10:22 81 MG Mexiletine HCl 150 mg TID GT 10/08/24 22:00 10/18/24 06:10 150 MG Acetaminophen 500 mg Q6HP PRN PO 10/08/24 22:30 10/09/24 21:26 500 MG Enteral Nutritional Formula 1,000 ml 55ML/HR GT 10/09/24 18:45 10/18/24 03:07 1,000 ML Phenylephrine HCl 80 mg/Sodium Chloride 250 ml @ 7.5 mls/hr Q24H IV 10/10/24 09:30 10/17/24 19:43 12.188 MLS/HR Ertapenem 1 gm/ Sodium Chloride 50 ml @ 100 mls/hr DAILY IV 10/10/24 20:00 10/17/24 09:25 100 MLS/HR Furosemide 20 mg BIDD IV 10/12/24 18:00 10/18/24 06:08 20 MG Esmolol HCl 250 ml @ 0 mls/hr Q0M IV 10/14/24 10:45 Amino Acids 0 ml @ 0 mls/hr PER PHARMACY IV 10/15/24 18:45 Heparin Sodium/ Dextrose 250 ml @ 13 mls/hr [id number] IV 10/16/24 04:15 Diagnostic Test (Pha) 1 strip Q6HR 10/16/24 12:00 10/18/24 06:09 1 STRIP Insulin Human Regular FOLLOW SLIDING SCALE Q6HR SC 10/16/24 12:00 Dextrose 50 ml UD IV 10/16/24 09:30 Amino Acids/ Electrolytes/ Dextrose 1,000 ml @ 41 mls/hr DAILY@2200 IV 10/16/24 22:00 10/17/24 22:25 41 MLS/HR Fentanyl Citrate 250 ml @ 2.5 mls/hr Q24H IV 10/16/24 13:00 10/17/24 22:26 10 MLS/HR Polyethylene Glycol 17 gm DAILYPRN PRN GT 10/17/24 16:45 10/17/24 17:38 17 GM Potassium Chloride 100 ml @ 50 mls/hr Q2H IV 10/18/24 05:45 10/18/24 09:44 10/18/24 06:09 50 MLS/HR Doxycycline Monohydrate 100 mg Q12HR NG 10/18/24 10:00 UNV laboratory and microbiology Laboratory Tests 10/18/24 02:32 Test 10/18/24 02:32 Range/Units Serum Glucose 79 74-106 mg/dL Assessment/Plan Patient is a 54-year-old female who was brought to the hospital for witnessed syncope. She is intubated and is being managed in ICU. Information was obtained by reviewing the chart and communicating with patient's son (over the phone). Family recognized witnessed syncope and started CPR and called EMS. Reportedly, EMS found the patient in ventricular fibrillation and shocked the patient and brought the patient to the hospital. Patient was intubated in emergency room and transferred to ICU. Patient was on amiodarone drip. Later the patient had ventricular tachycardia (Systane). High sensitive troponin had been minimally/flatly elevated. Presentation was not in favor of acute coronary syndrome. Cardiology is involved for cardiac aspects of care. Intubated. Noncommunicative. No JVD. Mucosa pale. No carotid bruit. Scattered rhonchi in the lungs is heard. Cardiac: Regular, no thrill. Systolic murmur 2/6 in apex is heard. Abdomen is soft. No edema in extremities. Past medical history as per son: Congenital heart disease, status post bypass WBC: 14.5 - 11.9 - 18.8 - 20.0 - 21.2 - 14.3 - 10.3 - 8.9 - 9.2 - 11.1 - 12.1 - 10.8 - 12.0 - 9.9 Hemoglobin: 10.1 - 9.6 - 9.2 - 8.8 - 8.7 - 8.0 - 8.3 - 8.5 - 7.8 - 10.2 - 10.7 - 9.9 - 9.7 - 9.3 Creatinine: 0.95 - 0.93 - 0.87 - 0.83 - 0.83 - 0.76 - 0.68 - 0.72 - 0.79 - 0.76 - 0.80 - 0.84 - 0.61 - 0.65 Potassium: 3.4 - 4.0 - 4.6 - 3.5 - 3.3 - 4.1 - 3.7 - 3.2 - 3.7 - 4.0 - 3.2 - 3.4 - 3.9 - 4.2 - 3.3 - 3.8 - 3.6 - 3.4 Magnesium: 2.0 - 1.6 - 2.0 - 3.0 - 1.5 - 1.9 - 2.1 - 1.8 - 2.0 - 1.9 - 1.9 - 2.6 - 2.0 - 1.8 Troponin (high sensitive): 141 - 138 - 117 BNP: 457.16 AST/ALT: 32/11 - 19/13 - 538/168 - 293/152 - 131/130 - 78/94 - 68/74 - 48/57 - 27/38 - 15/23 - /18 Digoxin level: 2.83 - 1.25 - 0.98 UDS: non-revealing Chest x-ray revealed: Lines and Tubes: Endotracheal tube tip projects approximately 1.4 cm above the level of the tyler. Enteric catheter courses below the lateral of the diaphragm and terminates beyond the inferior margin of the image. Right internal jugular central venous catheter terminates within the distal superior vena cava. Lungs: Moderate diffuse increased prominence of the pulmonary vasculature without evidence of focal consolidation. Pleura: No effusion. No pneumothorax. Cardiomediastinal contours: Cardiomegaly. Bones: Unremarkable IMPRESSION: 1. Cardiomegaly and diffuse increased prominence of the pulmonary vasculature. 2. Lines and tubes as above. Repeat chest x-ray revealed: IMPRESSION: 1. Endotracheal tube tip 1.6 cm above the tyler; consider 2 cm retraction 2. Mild pulmonary vascular congestion. Moderate cardiomegaly. Repeat chest xry revealed: IMPRESSION: Endotracheal tube tip 1.6 cm above the tyler; consider 2 cm retraction Mild pulmonary vascular congestion. Moderate cardiomegaly. Repeat chest xry revealed: IMPRESSION: 1. Stable cardiomegaly, small left pleural effusion and mild diffuse increased prominence of the pulmonary vasculature. 2. Repositioned endotracheal tube as above. Remaining lines and tubes unchanged. Repeat chest xry revealed: IMPRESSION: 1. Cardiomegaly, stable diffuse increased prominence of the pulmonary vasculature and small bilateral pleural effusions. 2. Slight interval advancement of endotracheal tube as above. Remaining lines and tubes unchanged. Repeat chest xry revealed: IMPRESSION: 1. Slight interval decrease in diffuse increased prominence of the pulmonary vasculature. 2. Stable cardiomegaly and small left pleural effusion. 3. Lines and tubes unchanged. Repeat chest xry revealed: IMPRESSION: 1. Cardiomegaly and small left pleural effusion. 2. Lines and tubes unchanged. Repeat chest xry revealed: IMPRESSION: Stable lines and tubes. Similar lung aeration. Repeat chest xry revealed: IMPRESSION: Cardiomegaly and small left pleural effusion. Lines and tubes unchanged. Repeat chest xry revealed: IMPRESSION: Placement of a cardiac pacer, no pneumothorax is seen. Stable lines and tubes. KUB revealed: IMPRESSION: Nonobstructive bowel gas pattern. Nasogastric tube tip in the stomach. Large stool burden. Left upper ext arterial duplex: IMPRESSION: No hemodynamically significant stenosis based on peak systolic velocity criteria. Left lower ext arterial duplex: IMPRESSION: There is no evidence for peripheral vascular insufficiency in the left lower extremity. No significant focal stenosis is identified. Liver Ultrasound revealed: Hepatic steatosis. Hepatomegaly. Cholelithiasis. CT of the head revealed: IMPRESSION: No acute intracranial abnormality. Repeat CT of head revealed: IMPRESSION: No acute intracranial abnormality. Echocardiogram reported: lvef 15-20% dilated LV severe global dysfunction mild RV dysfunction biatrial enlargement mild moderate MAC, moderate mitral regurg mild to moderate aortic regug (images of echo reviewed and questioned presence of mitral ring and also some component (moderate of Mitral stenosis) EKG revealed sinus rhythm Telemetry revealed occasions of atrial fibrillation. There was occasional sustained ventricular tachycardia. EMS tele monitor revealed ventricular fibrillation for which the patient was shocked. Has remained sinus rhythm. Later with A-fib with MVR LHC revealed: Patent RICHMOND to LAD; Patent SVG to obtuse marginal; LVEF of 20% with increased EDP; Proximal disease in LAD/LCX RICHIE was performed: Consistent with severely reduced LVEF. Consistent with previously implanted Mitral ring, Up to moderate Mitral stenosis/Mitral Regurgitation and also Moderate Aortic insufficiency. Patient is a 54-year-old female who presented with witnessed syncope. She was found to have ventricular fibrillation for which was shocked. Later had repeated episode of sustained ventricular tachycardia. Patient has been kept in ICU. Does have baseline history of coronary artery disease for which has had bypass surgery. Left heart catheterization was performed which revealed patent RICHMOND and patent SVG. ACS is not considered at this point. It is of note that the patient's echocardiogram reveals significantly use systolic function. Valvular heart disease is considered. Findings are in favor of previously implanted mitral ring. By reviewing the echo images, component of up to moderate mitral stenosis could not be ruled out. LHC was performed that ruled out any active specific ischemia as an etiology for presentation. Is off Amiodarone for abnormal LFT. Being followed by Nephrology / Pulmonary / Neurology / GI ID. Tele has remained sinus rhythm. Had episode of a-fib with RVR. Was loaded with Digoxin. Dig level was performed at wrong timing (only 5 hours after the last Dig given). Dig toxicity is not considered. Patient is back to normal sinus rhythm. Has good kidney function. Repeat Dig level is acceptable level. s/p ICD implantation by EP Syncope V-fib s/p shock Sustained V-tach Paroxysmal A-fib VHD, s/p Mitral ring Systolic heart failure Abnormal LFT, resolved s/p ICD (Biotronik) implantation by EP (Dr Armstrong) Cardiac suggestion for management: Manage in ICU Follow up electrolytes and kidney function test and correct abnormalities Full anticoagulation (a-fib with high CHADS-Vasc score). On Heparin drip for now Off Amio drip (worsened LFT) (personally discussed with EP: Dr Armstrong who advised to stop / not to restart Amiodarone) On Mexiletine If need for pressure support: use Phenyl Ephrine May consider Esmolol for PVC/Vtach EP Following s/p ICD (Biotronik) implantation by EP A/C: start Coumadin: 2 mg daily and check INR daily Pulmonary Follow up Provide previous medical records from reaching out to previous hospitals in [facility]... Further evaluation and management depends on the above and clinical course. A total of 75 minutes was spent reviewing the patient record, examining the patient, making a diagnostic and therapeutic plan, discussing this plan with medical personnel, following up on diagnostic studies and following the patient for clinical stability excluding any and all procedures. At least 50% of this time was spent in direct, [id number] contact. Thank you for allowing me to participate in this patient's care. Further recommendations will depend on patient's clinical course. Please do not hesitate to contact me if you have any questions or concerns. This medical document was created using electronic medical record system with [email or web address] computerized dictation system. Although this document has been carefully reviewed, there may still be some phonetic and typographical errors. These areas are purely typographical due to the imperfection of the software programs, and do not reflect any compromise in the patient's medical care. Dietary Evaluation Review Comments: 1) TF Jevity 1.2Cal @ 55 ml/hr. x 24hr along with Pro-stat 1 pk daily. Start @ 20ml/hr, increase 10ml/hr Q4H until goal is reached. TF @ goal volume provides 1684 kcal (100% energy needs), 88 gm protein (100% protein needs), 1065 ml free water. 2) Water flush 100ml Q4H if allowed, adjust PRN 3) Advance to cardiac diet as medically feasible 4) Monitor NPO status, lab values, wt trend, I/O Expected Outcomes/Goals: To meet >75% estimated needs within 7 days Lab values to improve Fu 2-3 days Plan discussed with: Other (nurse) CORDELL VERA MD Oct 18, 2024 07:33
--- NOTE | 2024-10-18 08:13 | DVH ---
CHEST RADIOGRAPH Indication: s/p AICD followup Technique: Single frontal view of the chest was obtained COMPARISON: XY CHEST PORTABLE on DOS: 10/17/24, XY CHEST PORTABLE on DOS: 10/15/24, XY CHEST PORTABLE o n DOS: 10/14/24, XY CHEST PORTABLE on DOS: 10/13/24, XY CHEST PORTABLE on DOS: 10/12/24 FINDINGS: Lines and Tubes: Unchanged. Left anterior chest wall cardiac pacing device. Lungs: Clear Pleura: No effusion. No pneumothorax. Cardiomediastinal contours: Unremarkable status post median sternotomy. Bones: Unremarkable IMPRESSION: 1. No acute disease. 2. Lines and tubes unchanged.
[2024-10-18] MEDS: DOXYCYCLINE 100 MG TAB/CAP NG SCH (09:37)
--- NOTE | 2024-10-18 10:01 | DVHPN2 ---
Progress Note - Dictate Date Seen: Oct 18, 2024 Has the PT tested + for MRSA If YES, has PT been informed?: No Medical Necessity Reason Pt with a Central, PICC or Fol: Yes vital signs Vital Sign Date Time Temp Pulse Resp B/P (MAP) Pulse Ox O2 Delivery O2 Flow Rate FiO2 10/18/24 09:45 100.2 70 20 113/46 (68) 100 212.4 10/18/24 08:35 30 10/18/24 08:00 Mechanical Ventilator+ Total Intake and Output 10/17/24 10/17/24 10/18/24 15:00 23:00 07:00 Intake Total 783.752 ml 710.004 ml 674.656 ml Output Total 975 ml 1250 ml Balance 783.752 ml -264.996 ml -575.344 ml medications Current Medications Medications Dose Ordered Sig/Liliam Route Start Time Stop Time Status Last Admin Dose Admin Midazolam HCl 50 ml @ 1 mls/hr Q24H IV 10/07/24 04:45 10/17/24 22:27 4 MLS/HR Ondansetron HCl 4 mg Q4HP PRN IV 10/07/24 10:00 Nitroglycerin 0.4 mg Q5MINP PRN SL 10/07/24 10:00 Pantoprazole Sodium 40 mg DAILY IV 10/07/24 10:00 10/18/24 09:37 40 MG Aspirin 81 mg DAILY PO 10/08/24 10:00 10/15/24 10:22 81 MG Mexiletine HCl 150 mg TID GT 10/08/24 22:00 10/18/24 06:10 150 MG Acetaminophen 500 mg Q6HP PRN PO 10/08/24 22:30 10/09/24 21:26 500 MG Enteral Nutritional Formula 1,000 ml 55ML/HR GT 10/09/24 18:45 10/18/24 03:07 1,000 ML Phenylephrine HCl 80 mg/Sodium Chloride 250 ml @ 7.5 mls/hr Q24H IV 10/10/24 09:30 10/17/24 19:43 12.188 MLS/HR Ertapenem 1 gm/ Sodium Chloride 50 ml @ 100 mls/hr DAILY IV 10/10/24 20:00 10/18/24 09:37 100 MLS/HR Furosemide 20 mg BIDD IV 10/12/24 18:00 10/18/24 06:08 20 MG Esmolol HCl 250 ml @ 0 mls/hr Q0M IV 10/14/24 10:45 Amino Acids 0 ml @ 0 mls/hr PER PHARMACY IV 10/15/24 18:45 Heparin Sodium/ Dextrose 250 ml @ 13 mls/hr [id number] IV 10/16/24 04:15 Diagnostic Test (Pha) 1 strip Q6HR 10/16/24 12:00 10/18/24 06:09 1 STRIP Insulin Human Regular FOLLOW SLIDING SCALE Q6HR SC 10/16/24 12:00 Dextrose 50 ml UD IV 10/16/24 09:30 Amino Acids/ Electrolytes/ Dextrose 1,000 ml @ 41 mls/hr DAILY@2200 IV 10/16/24 22:00 10/17/24 22:25 41 MLS/HR Fentanyl Citrate 250 ml @ 2.5 mls/hr Q24H IV 10/16/24 13:00 10/17/24 22:26 10 MLS/HR Polyethylene Glycol 17 gm DAILYPRN PRN GT 10/17/24 16:45 10/17/24 17:38 17 GM Doxycycline Monohydrate 100 mg Q12HR NG 10/18/24 10:00 10/18/24 09:37 100 MG Warfarin Sodium 2 mg DAILY@17 PO 10/18/24 17:00 UNV objective General Appearance: no distress HEENT: EOMI, PERRLA, normal external inspect of ears, no icterus, no nasal drainage Neck: no carotid bruit, no jugular venous distention (JVD), no lymphadenopathy Chest: normal thorax Respiratory: Intubated, clear to auscultation, normal air movement Cardiovascular: regular rate and rhythm, no diastolic murmur, no jugular venous distention (JVD), no rub, no systolic murmur Abdominal: soft, no hepatomegaly, no mass, no splenomegaly, no tenderness Genitourinary: grossly normal external Musculoskeletal: no joint tenderness, no swelling Extremities: normal pulses, no calf tenderness, no clubbing, no cyanosis, no edema Skin: no bruising, no jaundice, no rash Neurological: No focal deficit laboratory and microbiology Laboratory Tests 10/18/24 02:32 Test 10/18/24 02:32 Range/Units Serum Glucose 79 74-106 mg/dL Problem List Cardiac Arrest with Ventricular Fibrillation Assessment: Patient experienced cardiac arrest with ventricular fibrillation on 10/07/24, witnessed by family members who initiated CPR. EMS found the patient in ventricular fibrillation and administered shock therapy. Rhythm strip analysis confirmed ventricular fibrillation. Patient required intubation and sedation upon ED arrival. Currently admitted to ICU for close observation. Cardiology has been consulted and plans for AICD placement, likely on Tuesday. Infectious disease clearance has been obtained for the AICD procedure, addressing initial concerns of leukocytosis which is now improving. Status post-cardiac arrest. Plan: - Continue ICU monitoring - Proceed with AICD placement as planned (likely Tuesday), cleared by infectious disease. - Maintain intubation and sedation until AICD placement - Continue Heparin drip for paroxysmal atrial fibrillation - Continue Mexitil - DC amiodarone due to transaminitis - added esmolol drip per Cardiology for AFib and added push doses of digoxin Coronary Artery Disease Assessment: Patient with history of 2-vessel CABG (Coronary Artery Bypass Grafting). Surgical intervention previously performed to address significant coronary artery stenosis. Plan: - Continue medical management - Follow up with cardiology for ongoing coronary artery disease management Acute and Chronic Systolic Heart Failure Assessment: Patient has acute and chronic systolic heart failure with severely reduced left ventricular function. Ejection fraction is estimated at 15-20%. RICHIE findings are consistent with severely reduced left ventricular ejection fraction, previously implanted mitral ring, up to moderate mitral stenosis and regurgitation, and moderate aortic insufficiency. Plan: - Continue cardiology consultation - continue IV diuretics (IV Lasix) - Monitor renal function Acute Hypoxic Respiratory Failure Assessment: Patient is currently intubated due to acute hypoxic respiratory failure. Dr. Downey from pulmonology is managing this aspect of care. Plan: - Maintain current intubation as per pulmonology recommendation - Proceed with CPAP trials when deemed appropriate by pulmonology Transaminitis Assessment: Patient has elevated liver function tests, likely secondary to amiodarone use. Cardiology has discontinued amiodarone in response. Plan: - Monitor liver function tests - Amiodarone discontinued as per cardiology Enterobacter PNA Assessment: Sputum culture positive for Enterobacter. Plan: - Continue treatment with Eratapenem to complete 10 days regimen -Infectious disease consult Hemodynamic Support Assessment: Patient requires vasopressor support for hemodynamic stability. Plan: - Continue vasopressin - Continue neosynephrine Paroxysmal a fib -DC amiodarone -continue with heparin gtt Assessment/Plan Subjective Patient remains intubated and sedated. Objective Patient was admitted status post cardiac arrest. Patient also has acute on chronic systolic heart failure. Patient is status post AICD placement by . Patient has elevated liver enzymes which have now resolved. Most likely they were from amiodarone. Patient had acute on chronic systolic CHF. Patient also noted to have A-fib. Plan Continue current treatment. Monitor EKG. Continue to hold anticoagulation until cleared by cardiology. Dietary Evaluation Review Comments: 1) TF Jevity 1.2Cal @ 55 ml/hr. x 24hr along with Pro-stat 1 pk daily. Start @ 20ml/hr, increase 10ml/hr Q4H until goal is reached. TF @ goal volume provides 1684 kcal (100% energy needs), 88 gm protein (100% protein needs), 1065 ml free water. 2) Water flush 100ml Q4H if allowed, adjust PRN 3) Advance to cardiac diet as medically feasible 4) Monitor NPO status, lab values, wt trend, I/O Expected Outcomes/Goals: To meet >75% estimated needs within 7 days Lab values to improve Fu 2-3 days Plan discussed with: BRODIE Gillis NP Oct 18, 2024 10:01
[2024-10-18] MEDS: POTASSIUM CHL 20MEQ/100ML 100 ML IV ONE (10:15)
--- NOTE | 2024-10-18 10:28 | DVHPN2 ---
Progress Note - Dictate Date Seen: Oct 18, 2024 Has the PT tested + for MRSA If YES, has PT been informed?: No Medical Necessity Reason Pt with a Central, PICC or Fol: Yes Subjective Ms. Smith is a 54 years old female who was brought to the [facility] on 10/07/2024 with a chief complaint of cardiopulmonary arrest/status post CPR. I have seen and examined the patient, I have discussed with her nurse, she is intubated, sedated, responsive to light painful stimuli She received pacemaker insertion on 10/17/2024 Fentanyl 0 mcg/hour, Versed 0 mg/hour, Precedex 0.2 mcg/kg per hour, Neosyn 65 mcg/min Blood culture, 10/09/2024: UDS, 10/07/2024: Negative Urinalysis, 10/07/2024: Leukocyte esterase: Negative WBC/HB/PLT/MCV, 10/09/2024: 20/8.8/219/94.6, 10/10/2024: 21.2/8.7/232/92.2 PT/INR/PTT, 10/08/2024: 12.4/1.19/72.7, 10/09/2024: 13.1/1.26/68.9, 10/10/2024: 14.4/2/1.38/35.3 CMP, 10/08/2024: Unremarkable Troponin one high sensitivity, 10/07/2024: 141, 138, 117 TBI/AST/ALT/AP, 10/10/2024: 0.5/538/168/144, 10/11/2024: 0.6/293/199/152, 10/14/2024: 0.8/68/74/124 TG/HDL/LDL/HDL, 10/07/24: 71/66/31/21 Echocardiogram, 10/07/2024: lvef 15-20% dilated LV severe global dysfunction mild RV dysfunction biatrial enlargement mild moderate MAC, moderate mitral regurg mild to moderate aortic regug RICHIE, 10/08/2024: 1. Left ventricle: Dilated LV was seen. LVEF was 25%. There was diffuse hypokinesis of left ventricle. 2. Right ventricle: RV was mildly dilated. 3. Left atrium: LA enlarged 4. Right atrium: RA was enlarged. 5. Mitral valve: Mitral was thickened with reduced opening. Moderate Mitral regurgitation was seen. Planinomentry of valve (TTE images also obtained) revealed MVA of 2.1 cm. Mean pressure gradient (obtained from limited TTE images) was 5. Images are consistent with previously implanted Ring in Mitral position. Consistent with up to Moderate Mitral stenosis. . There was no vegetation 6. Left atrial appendage: No evidence of thrombus. 7. Aortic valve: Trileaflet valve. No stenosis. Up to moderate Aortic Insufficiency was seen. There was no vegetation 8. Pulmonic valve: Trivial pulmonic insufficiency. No significant stenosis. 9. Tricuspid valve: Mild tricuspid regurgitation. There was no vegetation 10. Interatrial septum: Negative color flow for right to left shunt was observed. Bubble study was performed: negative for shunt 11. Pericardium: No significant effusion. 12. Thoracic aorta: No significant plaquing. Chest x-ray, 10/27/2024: 1. Cardiomegaly, stable diffuse increased prominence of the pulmonary vasculature and small bilateral pleural effusions. 2. Slight interval advancement of endotracheal tube as above. Remaining lines and tubes unchanged. CT head, 10/07/2024: No acute intracranial abnormality General: the patient is well developed and nourished. No acute distress. Intubated CT head, 10/07/2024: No acute intracranial abnormality. CT head, 10/11/2024: No acute intracranial abnormality vital signs Vital Sign Date Time Temp Pulse Resp B/P (MAP) Pulse Ox O2 Delivery O2 Flow Rate FiO2 10/18/24 10:13 69 24 105/47 (66) 100 30 10/18/24 09:45 100.2 212.4 10/18/24 08:00 Mechanical Ventilator+ Total Intake and Output 10/17/24 10/17/24 10/18/24 15:00 23:00 07:00 Intake Total 783.752 ml 710.004 ml 674.656 ml Output Total 975 ml 1250 ml Balance 783.752 ml -264.996 ml -575.344 ml medications Current Medications Medications Dose Ordered Sig/Liliam Route Start Time Stop Time Status Last Admin Dose Admin Midazolam HCl 50 ml @ 1 mls/hr Q24H IV 10/07/24 04:45 10/17/24 22:27 4 MLS/HR Ondansetron HCl 4 mg Q4HP PRN IV 10/07/24 10:00 Nitroglycerin 0.4 mg Q5MINP PRN SL 10/07/24 10:00 Pantoprazole Sodium 40 mg DAILY IV 10/07/24 10:00 10/18/24 09:37 40 MG Aspirin 81 mg DAILY PO 10/08/24 10:00 10/15/24 10:22 81 MG Mexiletine HCl 150 mg TID GT 10/08/24 22:00 10/18/24 06:10 150 MG Acetaminophen 500 mg Q6HP PRN PO 10/08/24 22:30 10/09/24 21:26 500 MG Enteral Nutritional Formula 1,000 ml 55ML/HR GT 10/09/24 18:45 10/18/24 03:07 1,000 ML Phenylephrine HCl 80 mg/Sodium Chloride 250 ml @ 7.5 mls/hr Q24H IV 10/10/24 09:30 10/17/24 19:43 12.188 MLS/HR Ertapenem 1 gm/ Sodium Chloride 50 ml @ 100 mls/hr DAILY IV 10/10/24 20:00 10/18/24 09:37 100 MLS/HR Furosemide 20 mg BIDD IV 10/12/24 18:00 10/18/24 06:08 20 MG Esmolol HCl 250 ml @ 0 mls/hr Q0M IV 10/14/24 10:45 Amino Acids 0 ml @ 0 mls/hr PER PHARMACY IV 10/15/24 18:45 Heparin Sodium/ Dextrose 250 ml @ 13 mls/hr [id number] IV 10/16/24 04:15 Diagnostic Test (Pha) 1 strip Q6HR 10/16/24 12:00 10/18/24 06:09 1 STRIP Insulin Human Regular FOLLOW SLIDING SCALE Q6HR SC 10/16/24 12:00 Dextrose 50 ml UD IV 10/16/24 09:30 Amino Acids/ Electrolytes/ Dextrose 1,000 ml @ 41 mls/hr DAILY@2200 IV 10/16/24 22:00 10/17/24 22:25 41 MLS/HR Fentanyl Citrate 250 ml @ 2.5 mls/hr Q24H IV 10/16/24 13:00 10/17/24 22:26 10 MLS/HR Polyethylene Glycol 17 gm DAILYPRN PRN GT 10/17/24 16:45 10/17/24 17:38 17 GM Doxycycline Monohydrate 100 mg Q12HR NG 10/18/24 10:00 10/18/24 09:37 100 MG Warfarin Sodium 2 mg DAILY@17 PO 10/18/24 17:00 UNV objective The patient is well-nourished and well-developed with no distress. The patient is intubated MENTAL STATUS: Subjective CRANIAL NERVES: Pupils are equal, round and reactive.There are corneal reflexes and doll's eyes phenomenon. No signs of facial weakness. There are gagging or coughing reflexes SENSATION: Responses to pain stimuli. MOTOR: Normal tone in the upper and lower extremity. Normal muscle bulk. No fasciculations. No spontaneous movement. REFLEXES: Deep tendon reflexes are symmetrical. No pathological reflexes. CEREBELLAR/COORDINATION: Deferred GAIT/STATION: deferred. laboratory and microbiology Laboratory Tests 10/18/24 02:32 Test 10/18/24 02:32 Range/Units Serum Glucose 79 74-106 mg/dL Problem List Cardiopulmonary arrest Status post CPR Metabolic encephalopathy Hypoxic encephalopathy Congestive heart failure Leukocytosis/sepsis Respiratory failure Elevated liver function tests S/P pacemaker insertion on 10/17/2024 Assessment/Plan Monitoring Supportive treatment ICU care Stabilize vitals Respiratory support/vent management Hold off Lipitor (elevated liver function tests), LDL (31) (home medications included Lipitor 40 mg daily) DVT prophylaxis GI prophylaxis Cardiology on case Pulmonology on case Nephrology on case Consult GI Re: Elevated liver function tests Need more history Gradual wean off sedation, and CPAP trial This medical document was created using an electronic medical record system with [employer] dictation system. Although this document has been carefully reviewed, there may still be some phonetic and typographical errors. These areas are purely typographical due to imperfections of the software programs, and do not reflect any compromise in the patient's medical care. Prognosis guarded Dietary Evaluation Review Comments: 1) TF Jevity 1.2Cal @ 55 ml/hr. x 24hr along with Pro-stat 1 pk daily. Start @ 20ml/hr, increase 10ml/hr Q4H until goal is reached. TF @ goal volume provides 1684 kcal (100% energy needs), 88 gm protein (100% protein needs), 1065 ml free water. 2) Water flush 100ml Q4H if allowed, adjust PRN 3) Advance to cardiac diet as medically feasible 4) Monitor NPO status, lab values, wt trend, I/O Expected Outcomes/Goals: To meet >75% estimated needs within 7 days Lab values to improve Fu 2-3 days Plan discussed with: Other CAROLINE ROBB MD Oct 18, 2024 10:28
[2024-10-18 11:23] LABS: INR 1.16 (0.9-1.15); Prothrombin Time 12.1 sec (9.3-11.8)
--- NOTE | 2024-10-18 14:28 | DVHPN2 ---
Progress Note - Dictate Date Seen: Oct 18, 2024 Has the PT tested + for MRSA If YES, has PT been informed?: No Medical Necessity Reason Pt with a Central, PICC or Fol: Yes vital signs Vital Sign Date Time Temp Pulse Resp B/P (MAP) Pulse Ox O2 Delivery O2 Flow Rate FiO2 10/18/24 14:15 100.0 70 19 128/59 (82) 100 212.0 10/18/24 14:11 30 10/18/24 14:11 Mechanical Ventilator+ Total Intake and Output 10/17/24 10/17/24 10/18/24 15:00 23:00 07:00 Intake Total 783.752 ml 710.004 ml 674.656 ml Output Total 975 ml 1250 ml Balance 783.752 ml -264.996 ml -575.344 ml medications Current Medications Medications Dose Ordered Sig/Liliam Route Start Time Stop Time Status Last Admin Dose Admin Midazolam HCl 50 ml @ 1 mls/hr Q24H IV 10/07/24 04:45 10/17/24 22:27 4 MLS/HR Ondansetron HCl 4 mg Q4HP PRN IV 10/07/24 10:00 Nitroglycerin 0.4 mg Q5MINP PRN SL 10/07/24 10:00 Pantoprazole Sodium 40 mg DAILY IV 10/07/24 10:00 10/18/24 09:37 40 MG Aspirin 81 mg DAILY PO 10/08/24 10:00 10/15/24 10:22 81 MG Mexiletine HCl 150 mg TID GT 10/08/24 22:00 10/18/24 06:10 150 MG Acetaminophen 500 mg Q6HP PRN PO 10/08/24 22:30 10/09/24 21:26 500 MG Enteral Nutritional Formula 1,000 ml 55ML/HR GT 10/09/24 18:45 10/18/24 03:07 1,000 ML Phenylephrine HCl 80 mg/Sodium Chloride 250 ml @ 7.5 mls/hr Q24H IV 10/10/24 09:30 10/17/24 19:43 12.188 MLS/HR Ertapenem 1 gm/ Sodium Chloride 50 ml @ 100 mls/hr DAILY IV 10/10/24 20:00 10/18/24 09:37 100 MLS/HR Furosemide 20 mg BIDD IV 10/12/24 18:00 10/18/24 06:08 20 MG Esmolol HCl 250 ml @ 0 mls/hr Q0M IV 10/14/24 10:45 Amino Acids 0 ml @ 0 mls/hr PER PHARMACY IV 10/15/24 18:45 Heparin Sodium/ Dextrose 250 ml @ 13 mls/hr [id number] IV 10/16/24 04:15 Diagnostic Test (Pha) 1 strip Q6HR 10/16/24 12:00 10/18/24 11:50 1 STRIP Insulin Human Regular FOLLOW SLIDING SCALE Q6HR SC 10/16/24 12:00 Dextrose 50 ml UD IV 10/16/24 09:30 Amino Acids/ Electrolytes/ Dextrose 1,000 ml @ 41 mls/hr DAILY@2200 IV 10/16/24 22:00 10/17/24 22:25 41 MLS/HR Fentanyl Citrate 250 ml @ 2.5 mls/hr Q24H IV 10/16/24 13:00 10/17/24 22:26 10 MLS/HR Polyethylene Glycol 17 gm DAILYPRN PRN GT 10/17/24 16:45 10/17/24 17:38 17 GM Doxycycline Monohydrate 100 mg Q12HR NG 10/18/24 10:00 10/18/24 09:37 100 MG Warfarin Sodium 2 mg DAILY@17 PO 10/18/24 17:00 laboratory and microbiology Laboratory Tests 10/18/24 02:32 Test 10/18/24 02:32 Range/Units Serum Glucose 79 74-106 mg/dL Assessment/Plan s/p cardiac arrest VT CPR <5 min elevated troponin acute resp failure atelectases pt seen and examined on the ICU events on mechanical ventilation PEEP 5, FiO2 30% off sedation, not waking up s/p pacemaker management plan daily sedation holidays when patient is more awake, proceed to weaning trial pressure support 09/01, extubate when ready ok to use precedex cont abx monitor cx monitor labs renal function daily abg and CXR dvt proph/on f/u cardiology crit care time 35 min Dietary Evaluation Review Comments: 1) TF Jevity 1.2Cal @ 55 ml/hr. x 24hr along with Pro-stat 1 pk daily. Start @ 20ml/hr, increase 10ml/hr Q4H until goal is reached. TF @ goal volume provides 1684 kcal (100% energy needs), 88 gm protein (100% protein needs), 1065 ml free water. 2) Water flush 100ml Q4H if allowed, adjust PRN 3) Advance to cardiac diet as medically feasible 4) Monitor NPO status, lab values, wt trend, I/O Expected Outcomes/Goals: To meet >75% estimated needs within 7 days Lab values to improve Fu 2-3 days Plan discussed with: Other (Rn) BELLO ROTHMAN MD Oct 18, 2024 14:28
[2024-10-18] MEDS: WARFARIN SODIUM 2 MG TAB PO SCH (16:49)
--- NOTE | 2024-10-18 18:27 | DVHPN2 ---
Progress Note Date Seen: Oct 18, 2024 Resident Creating Document: SHANKAR VALDEZ RESIDENT Has the PT tested + for MRSA If YES, has PT been informed?: No Medical Necessity Reason Pt with a Central, PICC or Fol: Yes Subjective Review of Systems Today's progress- The patient is off sedation today. CPAP trials failed today. We will repeat the CPAP trials again. Her abdominal x-ray reveals large stool burden. The patient is still intubated and mechanically ventilated. MiraLax dosage yesterday did not improve her bowel movements. Hemoglobin stable at 9.3 low, WBC count is normal at 9.9. Platelet count is at 57 low worsened from 89 low. Giving a lactulose via GT Objective vital signs Vital Sign Date Time Temp Pulse Resp B/P (MAP) Pulse Ox O2 Delivery O2 Flow Rate FiO2 10/18/24 18:15 100.0 71 20 111/55 (73) 100 212.0 10/18/24 18:00 30 10/18/24 18:00 Mechanical Ventilator+ Total Intake and Output 10/17/24 10/17/24 10/18/24 15:00 23:00 07:00 Intake Total 783.752 ml 710.004 ml 674.656 ml Output Total 975 ml 1250 ml Balance 783.752 ml -264.996 ml -575.344 ml medications Current Medications Medications Dose Ordered Sig/Liliam Route Start Time Stop Time Status Last Admin Dose Admin Midazolam HCl 50 ml @ 1 mls/hr Q24H IV 10/07/24 04:45 10/17/24 22:27 4 MLS/HR Ondansetron HCl 4 mg Q4HP PRN IV 10/07/24 10:00 Nitroglycerin 0.4 mg Q5MINP PRN SL 10/07/24 10:00 Pantoprazole Sodium 40 mg DAILY IV 10/07/24 10:00 10/18/24 09:37 40 MG Aspirin 81 mg DAILY PO 10/08/24 10:00 10/15/24 10:22 81 MG Mexiletine HCl 150 mg TID GT 10/08/24 22:00 10/18/24 14:27 150 MG Acetaminophen 500 mg Q6HP PRN PO 10/08/24 22:30 10/09/24 21:26 500 MG Enteral Nutritional Formula 1,000 ml 55ML/HR GT 10/09/24 18:45 10/18/24 03:07 1,000 ML Phenylephrine HCl 80 mg/Sodium Chloride 250 ml @ 7.5 mls/hr Q24H IV 10/10/24 09:30 10/18/24 17:12 7.5 MLS/HR Ertapenem 1 gm/ Sodium Chloride 50 ml @ 100 mls/hr DAILY IV 10/10/24 20:00 10/18/24 09:37 100 MLS/HR Furosemide 20 mg BIDD IV 10/12/24 18:00 10/18/24 16:48 20 MG Esmolol HCl 250 ml @ 0 mls/hr Q0M IV 10/14/24 10:45 Amino Acids 0 ml @ 0 mls/hr PER PHARMACY IV 10/15/24 18:45 Heparin Sodium/ Dextrose 250 ml @ 13 mls/hr [id number] IV 10/16/24 04:15 Diagnostic Test (Pha) 1 strip Q6HR 10/16/24 12:00 10/18/24 18:19 1 STRIP Insulin Human Regular FOLLOW SLIDING SCALE Q6HR SC 10/16/24 12:00 Dextrose 50 ml UD IV 10/16/24 09:30 Amino Acids/ Electrolytes/ Dextrose 1,000 ml @ 41 mls/hr DAILY@2200 IV 10/16/24 22:00 10/17/24 22:25 41 MLS/HR Fentanyl Citrate 250 ml @ 2.5 mls/hr Q24H IV 10/16/24 13:00 10/17/24 22:26 10 MLS/HR Polyethylene Glycol 17 gm DAILYPRN PRN GT 10/17/24 16:45 10/17/24 17:38 17 GM Doxycycline Monohydrate 100 mg Q12HR NG 10/18/24 10:00 10/18/24 09:37 100 MG Warfarin Sodium 2 mg DAILY@17 PO 10/18/24 17:00 10/18/24 16:49 2 MG Examination GENERAL:Normal, LUNGS:Abnormal (diminished on ventillator ), ABDOMEN:Normal, SKIN:Normal, NEURO:Normal laboratory and microbiology Laboratory Tests 10/18/24 14:18 10/18/24 02:32 Test 10/18/24 02:32 Range/Units Serum Glucose 79 74-106 mg/dL Microbiology Date/Time Source Procedure Growth Status 10/13/24 11:00 Sputum Endotracheal Wash Gram Stain - Final Complete 10/13/24 11:00 Respiratory Culture - Final Presumptive Ilda albicans Complete 10/09/24 08:49 Blood Blood Culture - Final NO GROWTH AFTER 5 DAYS OF INCUBATION. Complete 10/07/24 16:50 Nose MRSA Screen - Final Complete Problem List/Assessment/Plan Problem List/Assessment/Plan Acute hepatocellular injury most likely SHOCK LIVER RATHER THAN AMIODARONE INDUCED HEPATOTOXICITY NAFLD with steatohepatitis Cholelithiasis without acute inflammation Plan/Recommendation Plan Hepatic / GI * Continue to trend LFTs, INR, albumin daily * Avoid all hepatotoxic medications amiodarone documented as causing hepatotoxicity * Monitor for signs of acute liver failure (AMS, INR >1.5, hypoglycemia) * Maintain hemodynamic stability to optimize hepatic perfusion. Continue protonix Nutrition START CLINIMIX TPN VIA IV TODAY. Administering lactulose via GT today for constipation START MIRALAX 17 G VIA G-TUBE prn FOR CONSTIPATION. * Continue current enteral feeding via GT at 55 mL/hr (1.2 Ron/Fiber formula) * Monitor tolerance, bowel function, and risk for aspiration * Check nutrition labs (albumin, prealbumin weekly) Gallstones * Cholelithiasis without acute inflammation no surgical intervention needed at present * Outpatient surgical evaluation if future biliary symptoms occur Coagulopathy * Mild INR elevation, likely multifactorial (acute liver injury + anticoagulation) * Continue monitoring; vitamin K if INR worsens or bleeding occurs Infection Control (GI-relevant) * Continue current antibiotic therapy: Ertapenem 1 g IV daily (for non-GI infection per primary/ID) * Monitor for secondary biliary sepsis; repeat RUQ ultrasound if bilirubin rises or leukocytosis worsens Case discussed in detail with the attending physician, including the clinical presentation, diagnostic workup, and comprehensive management plan. Plan discussed with: Other (RN) My Orders My Orders Orders - SHANKAR VALDEZ RESIDENT Procedure Category Date Status Time Comprehensive LAB 10/19/24 Verified Metabolic Panel 05:00 Magnesium LAB 10/19/24 Verified 05:00 Phosphorus LAB 10/19/24 Verified 05:00 Clinimix Per Pharmacy [facility]IS ARMANDO 10/18/24 In Process 22:00 Dietary Evaluation Review Comments: 1) TF Jevity 1.2Cal @ 55 ml/hr. x 24hr along with Pro-stat 1 pk daily. Start @ 20ml/hr, increase 10ml/hr Q4H until goal is reached. TF @ goal volume provides 1684 kcal (100% energy needs), 88 gm protein (100% protein needs), 1065 ml free water. 2) Water flush 100ml Q4H if allowed, adjust PRN 3) Advance to cardiac diet as medically feasible 4) Monitor NPO status, lab values, wt trend, I/O Expected Outcomes/Goals: To meet >75% estimated needs within 7 days Lab values to improve Fu 2-3 days SHANKAR VALDEZ RESIDENT Oct 18, 2024 18:27
[2024-10-18] MEDS: LACTULOSE 20Gm/30ML SOLN GT ONE (20:37)
--- NOTE | 2024-10-18 20:49 | DVHPN2 ---
Consult Progress Note Date Seen: Oct 14, 2024 Subjective Patient reports: Other (flacid , on minimal vent worsening LFTs and remains off presser support ) Objective vital signs Vital Sign Date Time Temp Pulse Resp B/P (MAP) Pulse Ox O2 Delivery O2 Flow Rate FiO2 10/18/24 19:55 69 27 117/59 (78) 100 30 10/18/24 18:45 100.2 212.4 10/18/24 18:00 Mechanical Ventilator+ Total Intake and Output 10/17/24 10/17/24 10/18/24 15:00 23:00 07:00 Intake Total 783.752 ml 710.004 ml 674.656 ml Output Total 975 ml 1250 ml Balance 783.752 ml -264.996 ml -575.344 ml medications Current Medications Medications Dose Ordered Sig/Liliam Route Start Time Stop Time Status Last Admin Dose Admin Midazolam HCl 50 ml @ 1 mls/hr Q24H IV 10/07/24 04:45 10/17/24 22:27 4 MLS/HR Ondansetron HCl 4 mg Q4HP PRN IV 10/07/24 10:00 Nitroglycerin 0.4 mg Q5MINP PRN SL 10/07/24 10:00 Pantoprazole Sodium 40 mg DAILY IV 10/07/24 10:00 10/18/24 09:37 40 MG Aspirin 81 mg DAILY PO 10/08/24 10:00 10/15/24 10:22 81 MG Mexiletine HCl 150 mg TID GT 10/08/24 22:00 10/18/24 14:27 150 MG Acetaminophen 500 mg Q6HP PRN PO 10/08/24 22:30 10/09/24 21:26 500 MG Enteral Nutritional Formula 1,000 ml 55ML/HR GT 10/09/24 18:45 10/18/24 03:07 1,000 ML Phenylephrine HCl 80 mg/Sodium Chloride 250 ml @ 7.5 mls/hr Q24H IV 10/10/24 09:30 10/18/24 17:12 7.5 MLS/HR Ertapenem 1 gm/ Sodium Chloride 50 ml @ 100 mls/hr DAILY IV 10/10/24 20:00 10/18/24 09:37 100 MLS/HR Furosemide 20 mg BIDD IV 10/12/24 18:00 10/18/24 16:48 20 MG Esmolol HCl 250 ml @ 0 mls/hr Q0M IV 10/14/24 10:45 Amino Acids 0 ml @ 0 mls/hr PER PHARMACY IV 10/15/24 18:45 Heparin Sodium/ Dextrose 250 ml @ 13 mls/hr [id number] IV 10/16/24 04:15 Diagnostic Test (Pha) 1 strip Q6HR 10/16/24 12:00 10/18/24 18:19 1 STRIP Insulin Human Regular FOLLOW SLIDING SCALE Q6HR SC 10/16/24 12:00 Dextrose 50 ml UD IV 10/16/24 09:30 Amino Acids/ Electrolytes/ Dextrose 1,000 ml @ 41 mls/hr DAILY@2200 IV 10/16/24 22:00 10/17/24 22:25 41 MLS/HR Fentanyl Citrate 250 ml @ 2.5 mls/hr Q24H IV 10/16/24 13:00 10/17/24 22:26 10 MLS/HR Polyethylene Glycol 17 gm DAILYPRN PRN GT 10/17/24 16:45 10/17/24 17:38 17 GM Doxycycline Monohydrate 100 mg Q12HR NG 10/18/24 10:00 10/18/24 09:37 100 MG Warfarin Sodium 2 mg DAILY@17 PO 10/18/24 17:00 10/18/24 16:49 2 MG laboratory and microbiology Laboratory Tests 10/18/24 14:18 10/18/24 02:32 Test 10/18/24 02:32 Range/Units Serum Glucose 79 74-106 mg/dL Problem List/Assessment/Plan Problems(with codes): (1) Cardiac arrest (2) Ventricular fibrillation (3) Sepsis, unspecified organism (4) Pneumonia Problem List/Assessment/Plan ASSESSMENT AND PLAN: ID Problem List: \-- Status post cardiac arrest with return of spontaneous circulation (ROSC) \-- Ventricular tachycardia and atrial fibrillation \-- Recent aspiration event/pneumonitis versus pneumonia, Enterobacter cloacae isolated \-- Severe reduced ejection fraction (EF 1520%), dilated LV, severe global dysfunction \-- History of CABG with stents, mitral ring implant \-- Hypothermia, hypoxia requiring intubation and sedation \-- Sepsis (suspected/treated), leukocytosis (now resolved) \-- Ongoing vasopressor requirement (phenylephrine) \-- ICD placement planned Assessment Ms. Luis is a 54-year-old female with a past medical history notable for prior coronary artery bypass grafting (CABG) with stenting, recent mitral ring implant, and significant cardiac disease. She presented on 10/07 with an acute witnessed cardiac arrest during dinner; initial rhythm was ventricular tachycardia/atrial fibrillation. ROSC was achieved on EMS arrival after a single shock and Narcan administration. She was found to be hypothermic and hypotensive and required intubation for airway protection due to altered mental status. During her ICU course, she had recurrent ventricular tachycardia and atrial fibrillation, managed with antiarrhythmic drip (amiodarone), vasopressors (initially Levophed, currently phenylephrine), and heparin drip. Echocardiogram and left heart catheterization confirmed poor left ventricular function (EF 1520%, dilated LV) and patent bypass grafts. The patient also experienced aspiration pneumonitis, with Enterobacter cloacae isolated from sputum (sensitive to cefepime); empiric antibiotics were escalated to ertapenem following transient fever and leukocytosis, which have since resolved. Currently, she remains intubated on pressure support (tolerating CPAP trials), minimally following commands. She is on phenylephrine, Lasix drip, and heparin drip, with ongoing close monitoring. Cardiology in agreement to proceed with ICD placement given recurrent arrhythmias. Infectious disease clearance provided for this, as there is no evidence of persistent infection or sepsis (blood cultures negative, leukocytosis resolved). 10/12: awaiting AICD placement 10/13: sputum culture was done for further evaluation of persistent pneumonia , no thick secretions 10/14:Dr. bernardo recommends stopping aminopterin drip and LFTs appear to be improving with this change Plan: - monitor lefts off drip \-- Continue ertapenem to complete a total of ten days of antibiotics; consider de-escalation to cefepime pending clinical improvement and repeat sputum cultures. \-- Monitor for further infectious complications; consider repeat sputum cultures to document clearance. \-- Continue Lasix and heparin drips per cardiology recommendations. \-- Maintain phenylephrine drip; titrate as needed to maintain MAP. \-- Defer ICD placement and antiarrhythmic management to cardiology. patient is clear from infectious disease perspective for ICD placement \-- Monitor neurological status; currently, patient is intermittently following commands but remains not fully alert. \-- No evidence of active sepsis or bacteremia at this time. \-- Continue supportive ICU care and multidisciplinary management. Authorized and Performed by: soham gramajo md Total critical care time: Approximately 76 minutes Due to a high probability of clinically significant, life threatening deterioration, the patient required my highest level of preparedness to intervene emergently and I personally spent this critical care time directly and personally managing the patient. This critical care time included obtaining a history; examining the patient; pulse oximetry; ordering and review of studies; arranging urgent treatment with development of a management plan; evaluation of patient's response to treatment; frequent reassessment; and, discussions with other providers. This critical care time was performed to assess and manage the high probability of imminent, life-threatening deterioration that could result in multi-organ failure. It was exclusive of separately billable procedures and treating other patients and teaching time. Isolation Precautions: Standard Plan discussed with: Other Dietary Evaluation Review Comments: 1) TF Jevity 1.2Cal @ 55 ml/hr. x 24hr along with Pro-stat 1 pk daily. Start @ 20ml/hr, increase 10ml/hr Q4H until goal is reached. TF @ goal volume provides 1684 kcal (100% energy needs), 88 gm protein (100% protein needs), 1065 ml free water. 2) Water flush 100ml Q4H if allowed, adjust PRN 3) Advance to cardiac diet as medically feasible 4) Monitor NPO status, lab values, wt trend, I/O Expected Outcomes/Goals: To meet >75% estimated needs within 7 days Lab values to improve Fu 2-3 days SOHAM GRAMAJO MD Oct 18, 2024 20:49
--- NOTE | 2024-10-18 20:49 | DVHPN2 ---
Consult Progress Note Date Seen: Oct 13, 2024 Subjective Patient reports: Other (sputum culture done to further evaluate persistence in pneumonia and on day 7 of ertapenem therapy ) Objective vital signs Vital Sign Date Time Temp Pulse Resp B/P (MAP) Pulse Ox O2 Delivery O2 Flow Rate FiO2 10/18/24 19:55 69 27 117/59 (78) 100 30 10/18/24 18:45 100.2 212.4 10/18/24 18:00 Mechanical Ventilator+ Total Intake and Output 10/17/24 10/17/24 10/18/24 15:00 23:00 07:00 Intake Total 783.752 ml 710.004 ml 674.656 ml Output Total 975 ml 1250 ml Balance 783.752 ml -264.996 ml -575.344 ml medications Current Medications Medications Dose Ordered Sig/Liliam Route Start Time Stop Time Status Last Admin Dose Admin Midazolam HCl 50 ml @ 1 mls/hr Q24H IV 10/07/24 04:45 10/17/24 22:27 4 MLS/HR Ondansetron HCl 4 mg Q4HP PRN IV 10/07/24 10:00 Nitroglycerin 0.4 mg Q5MINP PRN SL 10/07/24 10:00 Pantoprazole Sodium 40 mg DAILY IV 10/07/24 10:00 10/18/24 09:37 40 MG Aspirin 81 mg DAILY PO 10/08/24 10:00 10/15/24 10:22 81 MG Mexiletine HCl 150 mg TID GT 10/08/24 22:00 10/18/24 14:27 150 MG Acetaminophen 500 mg Q6HP PRN PO 10/08/24 22:30 10/09/24 21:26 500 MG Enteral Nutritional Formula 1,000 ml 55ML/HR GT 10/09/24 18:45 10/18/24 03:07 1,000 ML Phenylephrine HCl 80 mg/Sodium Chloride 250 ml @ 7.5 mls/hr Q24H IV 10/10/24 09:30 10/18/24 17:12 7.5 MLS/HR Ertapenem 1 gm/ Sodium Chloride 50 ml @ 100 mls/hr DAILY IV 10/10/24 20:00 10/18/24 09:37 100 MLS/HR Furosemide 20 mg BIDD IV 10/12/24 18:00 10/18/24 16:48 20 MG Esmolol HCl 250 ml @ 0 mls/hr Q0M IV 10/14/24 10:45 Amino Acids 0 ml @ 0 mls/hr PER PHARMACY IV 10/15/24 18:45 Heparin Sodium/ Dextrose 250 ml @ 13 mls/hr [id number] IV 10/16/24 04:15 Diagnostic Test (Pha) 1 strip Q6HR 10/16/24 12:00 10/18/24 18:19 1 STRIP Insulin Human Regular FOLLOW SLIDING SCALE Q6HR SC 10/16/24 12:00 Dextrose 50 ml UD IV 10/16/24 09:30 Amino Acids/ Electrolytes/ Dextrose 1,000 ml @ 41 mls/hr DAILY@2200 IV 10/16/24 22:00 10/17/24 22:25 41 MLS/HR Fentanyl Citrate 250 ml @ 2.5 mls/hr Q24H IV 10/16/24 13:00 10/17/24 22:26 10 MLS/HR Polyethylene Glycol 17 gm DAILYPRN PRN GT 10/17/24 16:45 10/17/24 17:38 17 GM Doxycycline Monohydrate 100 mg Q12HR NG 10/18/24 10:00 10/18/24 09:37 100 MG Warfarin Sodium 2 mg DAILY@17 PO 10/18/24 17:00 10/18/24 16:49 2 MG laboratory and microbiology Laboratory Tests 10/18/24 14:18 10/18/24 02:32 Test 10/18/24 02:32 Range/Units Serum Glucose 79 74-106 mg/dL Problem List/Assessment/Plan Problems(with codes): (1) Shock liver (2) Pneumonia (3) Sepsis, unspecified organism (4) Ventricular fibrillation (5) Cardiac arrest Problem List/Assessment/Plan ASSESSMENT AND PLAN: ID Problem List: \-- Status post cardiac arrest with return of spontaneous circulation (ROSC) \-- Ventricular tachycardia and atrial fibrillation \-- Recent aspiration event/pneumonitis versus pneumonia, Enterobacter cloacae isolated \-- Severe reduced ejection fraction (EF 1520%), dilated LV, severe global dysfunction \-- History of CABG with stents, mitral ring implant \-- Hypothermia, hypoxia requiring intubation and sedation \-- Sepsis (suspected/treated), leukocytosis (now resolved) \-- Ongoing vasopressor requirement (phenylephrine) \-- ICD placement planned Assessment Ms. Smith is a 54-year-old female with a past medical history notable for prior coronary artery bypass grafting (CABG) with stenting, recent mitral ring implant, and significant cardiac disease. She presented on 10/07 with an acute witnessed cardiac arrest during dinner; initial rhythm was ventricular tachycardia/atrial fibrillation. ROSC was achieved on EMS arrival after a single shock and Narcan administration. She was found to be hypothermic and hypotensive and required intubation for airway protection due to altered mental status. During her ICU course, she had recurrent ventricular tachycardia and atrial fibrillation, managed with antiarrhythmic drip (amiodarone), vasopressors (initially Levophed, currently phenylephrine), and heparin drip. Echocardiogram and left heart catheterization confirmed poor left ventricular function (EF 1520%, dilated LV) and patent bypass grafts. The patient also experienced aspiration pneumonitis, with Enterobacter cloacae isolated from sputum (sensitive to cefepime); empiric antibiotics were escalated to ertapenem following transient fever and leukocytosis, which have since resolved. Currently, she remains intubated on pressure support (tolerating CPAP trials), minimally following commands. She is on phenylephrine, Lasix drip, and heparin drip, with ongoing close monitoring. Cardiology in agreement to proceed with ICD placement given recurrent arrhythmias. Infectious disease clearance provided for this, as there is no evidence of persistent infection or sepsis (blood cultures negative, leukocytosis resolved). 10/12: awaiting AICD placement 10/13: sputum culture was done for further evaluation of persistent pneumonia , no thick secretions Plan: \-- Continue ertapenem to complete a total of ten days of antibiotics; consider de-escalation to cefepime pending clinical improvement and repeat sputum cultures. \-- Monitor for further infectious complications; consider repeat sputum cultures to document clearance. \-- Continue Lasix and heparin drips per cardiology recommendations. \-- Maintain phenylephrine drip; titrate as needed to maintain MAP. \-- Defer ICD placement and antiarrhythmic management to cardiology. patient is clear from infectious disease perspective for ICD placement \-- Monitor neurological status; currently, patient is intermittently following commands but remains not fully alert. \-- No evidence of active sepsis or bacteremia at this time. \-- Continue supportive ICU care and multidisciplinary management. Authorized and Performed by: soham gramajo md Total critical care time: Approximately 76 minutes Due to a high probability of clinically significant, life threatening deterioration, the patient required my highest level of preparedness to intervene emergently and I personally spent this critical care time directly and personally managing the patient. This critical care time included obtaining a history; examining the patient; pulse oximetry; ordering and review of studies; arranging urgent treatment with development of a management plan; evaluation of patient's response to treatment; frequent reassessment; and, discussions with other providers. This critical care time was performed to assess and manage the high probability of imminent, life-threatening deterioration that could result in multi-organ failure. It was exclusive of separately billable procedures and treating other patients and teaching time. Isolation Precautions: Standard Plan discussed with: Other Dietary Evaluation Review Comments: 1) TF Jevity 1.2Cal @ 55 ml/hr. x 24hr along with Pro-stat 1 pk daily. Start @ 20ml/hr, increase 10ml/hr Q4H until goal is reached. TF @ goal volume provides 1684 kcal (100% energy needs), 88 gm protein (100% protein needs), 1065 ml free water. 2) Water flush 100ml Q4H if allowed, adjust PRN 3) Advance to cardiac diet as medically feasible 4) Monitor NPO status, lab values, wt trend, I/O Expected Outcomes/Goals: To meet >75% estimated needs within 7 days Lab values to improve Fu 2-3 days SOHAM GRAMAJO MD Oct 18, 2024 20:49
--- NOTE | 2024-10-18 20:50 | DVHPN2 ---
Consult Progress Note Date Seen: Oct 17, 2024 Subjective Patient reports: Other (s/p AICD placement by dr bernardo ) Objective vital signs Vital Sign Date Time Temp Pulse Resp B/P (MAP) Pulse Ox O2 Delivery O2 Flow Rate FiO2 10/18/24 19:55 69 27 117/59 (78) 100 30 10/18/24 18:45 100.2 212.4 10/18/24 18:00 Mechanical Ventilator+ Total Intake and Output 10/17/24 10/17/24 10/18/24 15:00 23:00 07:00 Intake Total 783.752 ml 710.004 ml 674.656 ml Output Total 975 ml 1250 ml Balance 783.752 ml -264.996 ml -575.344 ml medications Current Medications Medications Dose Ordered Sig/Liliam Route Start Time Stop Time Status Last Admin Dose Admin Midazolam HCl 50 ml @ 1 mls/hr Q24H IV 10/07/24 04:45 10/17/24 22:27 4 MLS/HR Ondansetron HCl 4 mg Q4HP PRN IV 10/07/24 10:00 Nitroglycerin 0.4 mg Q5MINP PRN SL 10/07/24 10:00 Pantoprazole Sodium 40 mg DAILY IV 10/07/24 10:00 10/18/24 09:37 40 MG Aspirin 81 mg DAILY PO 10/08/24 10:00 10/15/24 10:22 81 MG Mexiletine HCl 150 mg TID GT 10/08/24 22:00 10/18/24 14:27 150 MG Acetaminophen 500 mg Q6HP PRN PO 10/08/24 22:30 10/09/24 21:26 500 MG Enteral Nutritional Formula 1,000 ml 55ML/HR GT 10/09/24 18:45 10/18/24 03:07 1,000 ML Phenylephrine HCl 80 mg/Sodium Chloride 250 ml @ 7.5 mls/hr Q24H IV 10/10/24 09:30 10/18/24 17:12 7.5 MLS/HR Ertapenem 1 gm/ Sodium Chloride 50 ml @ 100 mls/hr DAILY IV 10/10/24 20:00 10/18/24 09:37 100 MLS/HR Furosemide 20 mg BIDD IV 10/12/24 18:00 10/18/24 16:48 20 MG Esmolol HCl 250 ml @ 0 mls/hr Q0M IV 10/14/24 10:45 Amino Acids 0 ml @ 0 mls/hr PER PHARMACY IV 10/15/24 18:45 Heparin Sodium/ Dextrose 250 ml @ 13 mls/hr [id number] IV 10/16/24 04:15 Diagnostic Test (Pha) 1 strip Q6HR 10/16/24 12:00 10/18/24 18:19 1 STRIP Insulin Human Regular FOLLOW SLIDING SCALE Q6HR SC 10/16/24 12:00 Dextrose 50 ml UD IV 10/16/24 09:30 Amino Acids/ Electrolytes/ Dextrose 1,000 ml @ 41 mls/hr DAILY@2200 IV 10/16/24 22:00 10/17/24 22:25 41 MLS/HR Fentanyl Citrate 250 ml @ 2.5 mls/hr Q24H IV 10/16/24 13:00 10/17/24 22:26 10 MLS/HR Polyethylene Glycol 17 gm DAILYPRN PRN GT 10/17/24 16:45 10/17/24 17:38 17 GM Doxycycline Monohydrate 100 mg Q12HR NG 10/18/24 10:00 10/18/24 09:37 100 MG Warfarin Sodium 2 mg DAILY@17 PO 10/18/24 17:00 10/18/24 16:49 2 MG laboratory and microbiology Laboratory Tests 10/18/24 14:18 10/18/24 02:32 Test 10/18/24 02:32 Range/Units Serum Glucose 79 74-106 mg/dL Problem List/Assessment/Plan Problems(with codes): (1) Cardiac arrest (2) Ventricular fibrillation (3) Pneumonia (4) Shock liver Problem List/Assessment/Plan ASSESSMENT AND PLAN: ID Problem List: \-- Status post cardiac arrest with return of spontaneous circulation (ROSC) \-- Ventricular tachycardia and atrial fibrillation \-- Recent aspiration event/pneumonitis versus pneumonia, Enterobacter cloacae isolated \-- Severe reduced ejection fraction (EF 1520%), dilated LV, severe global dysfunction \-- History of CABG with stents, mitral ring implant \-- Hypothermia, hypoxia requiring intubation and sedation \-- Sepsis (suspected/treated), leukocytosis (now resolved) \-- Ongoing vasopressor requirement (phenylephrine) \-- ICD placement planned Assessment Ms. Smith is a 54-year-old female with a past medical history notable for prior coronary artery bypass grafting (CABG) with stenting, recent mitral ring implant, and significant cardiac disease. She presented on 10/07 with an acute witnessed cardiac arrest during dinner; initial rhythm was ventricular tachycardia/atrial fibrillation. ROSC was achieved on EMS arrival after a single shock and Narcan administration. She was found to be hypothermic and hypotensive and required intubation for airway protection due to altered mental status. During her ICU course, she had recurrent ventricular tachycardia and atrial fibrillation, managed with antiarrhythmic drip (amiodarone), vasopressors (initially Levophed, currently phenylephrine), and heparin drip. Echocardiogram and left heart catheterization confirmed poor left ventricular function (EF 1520%, dilated LV) and patent bypass grafts. The patient also experienced aspiration pneumonitis, with Enterobacter cloacae isolated from sputum (sensitive to cefepime); empiric antibiotics were escalated to ertapenem following transient fever and leukocytosis, which have since resolved. Currently, she remains intubated on pressure support (tolerating CPAP trials), minimally following commands. She is on phenylephrine, Lasix drip, and heparin drip, with ongoing close monitoring. Cardiology in agreement to proceed with ICD placement given recurrent arrhythmias. Infectious disease clearance provided for this, as there is no evidence of persistent infection or sepsis (blood cultures negative, leukocytosis resolved). 10/12: awaiting AICD placement 10/13: sputum culture was done for further evaluation of persistent pneumonia , no thick secretions 10/14:Dr. bernardo recommends stopping aminopterin drip and LFTs appear to be improving with this change 10/15:lfts are normalizing , sputum shows krystal colonization 10/16: holding excavation til placement 10/17:s/p AICD placement and tolerated procedure . lfts are normal and off amioterine drip Plan: - monitor lfts off drip \-- Continue ertapenem to complete a total of ten days of antibiotics; consider de-escalation to cefepime pending clinical improvement and repeat sputum cultures. \-- Monitor for further infectious complications; consider repeat sputum cultures to document clearance. \-- Continue Lasix and heparin drips per cardiology recommendations. \-- Maintain phenylephrine drip; titrate as needed to maintain MAP. \-- Defer ICD placement and antiarrhythmic management to cardiology. patient is clear from infectious disease perspective for ICD placement \-- Monitor neurological status; currently, patient is intermittently following commands but remains not fully alert. \-- No evidence of active sepsis or bacteremia at this time. \-- Continue supportive ICU care and multidisciplinary management. Authorized and Performed by: soham gramajo md Total critical care time: Approximately 76 minutes Due to a high probability of clinically significant, life threatening deterioration, the patient required my highest level of preparedness to intervene emergently and I personally spent this critical care time directly and personally managing the patient. This critical care time included obtaining a history; examining the patient; pulse oximetry; ordering and review of studies; arranging urgent treatment with development of a management plan; evaluation of patient's response to treatment; frequent reassessment; and, discussions with other providers. This critical care time was performed to assess and manage the high probability of imminent, life-threatening deterioration that could result in multi-organ failure. It was exclusive of separately billable procedures and treating other patients and teaching time. Isolation Precautions: Standard Plan discussed with: Other Dietary Evaluation Review Comments: 1) TF Jevity 1.2Cal @ 55 ml/hr. x 24hr along with Pro-stat 1 pk daily. Start @ 20ml/hr, increase 10ml/hr Q4H until goal is reached. TF @ goal volume provides 1684 kcal (100% energy needs), 88 gm protein (100% protein needs), 1065 ml free water. 2) Water flush 100ml Q4H if allowed, adjust PRN 3) Advance to cardiac diet as medically feasible 4) Monitor NPO status, lab values, wt trend, I/O Expected Outcomes/Goals: To meet >75% estimated needs within 7 days Lab values to improve Fu 2-3 days SOHAM GRAMAJO MD Oct 18, 2024 20:50
--- NOTE | 2024-10-18 20:50 | DVHPN2 ---
Consult Progress Note Date Seen: Oct 18, 2024 Subjective Patient reports: Other (remaisn on minimal vent , mildly agitated , watch for aspiration precautions ) Objective vital signs Vital Sign Date Time Temp Pulse Resp B/P (MAP) Pulse Ox O2 Delivery O2 Flow Rate FiO2 10/18/24 19:55 69 27 117/59 (78) 100 30 10/18/24 18:45 100.2 212.4 10/18/24 18:00 Mechanical Ventilator+ Total Intake and Output 10/17/24 10/17/24 10/18/24 15:00 23:00 07:00 Intake Total 783.752 ml 710.004 ml 674.656 ml Output Total 975 ml 1250 ml Balance 783.752 ml -264.996 ml -575.344 ml medications Current Medications Medications Dose Ordered Sig/Liliam Route Start Time Stop Time Status Last Admin Dose Admin Midazolam HCl 50 ml @ 1 mls/hr Q24H IV 10/07/24 04:45 10/17/24 22:27 4 MLS/HR Ondansetron HCl 4 mg Q4HP PRN IV 10/07/24 10:00 Nitroglycerin 0.4 mg Q5MINP PRN SL 10/07/24 10:00 Pantoprazole Sodium 40 mg DAILY IV 10/07/24 10:00 10/18/24 09:37 40 MG Aspirin 81 mg DAILY PO 10/08/24 10:00 10/15/24 10:22 81 MG Mexiletine HCl 150 mg TID GT 10/08/24 22:00 10/18/24 14:27 150 MG Acetaminophen 500 mg Q6HP PRN PO 10/08/24 22:30 10/09/24 21:26 500 MG Enteral Nutritional Formula 1,000 ml 55ML/HR GT 10/09/24 18:45 10/18/24 03:07 1,000 ML Phenylephrine HCl 80 mg/Sodium Chloride 250 ml @ 7.5 mls/hr Q24H IV 10/10/24 09:30 10/18/24 17:12 7.5 MLS/HR Ertapenem 1 gm/ Sodium Chloride 50 ml @ 100 mls/hr DAILY IV 10/10/24 20:00 10/18/24 09:37 100 MLS/HR Furosemide 20 mg BIDD IV 10/12/24 18:00 10/18/24 16:48 20 MG Esmolol HCl 250 ml @ 0 mls/hr Q0M IV 10/14/24 10:45 Amino Acids 0 ml @ 0 mls/hr PER PHARMACY IV 10/15/24 18:45 Heparin Sodium/ Dextrose 250 ml @ 13 mls/hr [id number] IV 10/16/24 04:15 Diagnostic Test (Pha) 1 strip Q6HR 10/16/24 12:00 10/18/24 18:19 1 STRIP Insulin Human Regular FOLLOW SLIDING SCALE Q6HR SC 10/16/24 12:00 Dextrose 50 ml UD IV 10/16/24 09:30 Amino Acids/ Electrolytes/ Dextrose 1,000 ml @ 41 mls/hr DAILY@2200 IV 10/16/24 22:00 10/17/24 22:25 41 MLS/HR Fentanyl Citrate 250 ml @ 2.5 mls/hr Q24H IV 10/16/24 13:00 10/17/24 22:26 10 MLS/HR Polyethylene Glycol 17 gm DAILYPRN PRN GT 10/17/24 16:45 10/17/24 17:38 17 GM Doxycycline Monohydrate 100 mg Q12HR NG 10/18/24 10:00 10/18/24 09:37 100 MG Warfarin Sodium 2 mg DAILY@17 PO 10/18/24 17:00 10/18/24 16:49 2 MG laboratory and microbiology Laboratory Tests 10/18/24 14:18 10/18/24 02:32 Test 10/18/24 02:32 Range/Units Serum Glucose 79 74-106 mg/dL Problem List/Assessment/Plan Problems(with codes): (1) Ventricular fibrillation (2) Sepsis, unspecified organism (3) Pneumonia (4) Shock liver Problem List/Assessment/Plan Problems(with codes): (1) Pneumonia (2) Cardiac arrest (3) Ventricular fibrillation (4) Sepsis, unspecified organism Plan/Recommendation ASSESSMENT AND PLAN: ID Problem List: \-- Status post cardiac arrest with return of spontaneous circulation (ROSC) \-- Ventricular tachycardia and atrial fibrillation \-- Recent aspiration event/pneumonitis versus pneumonia, Enterobacter cloacae isolated \-- Severe reduced ejection fraction (EF 1520%), dilated LV, severe global dysfunction \-- History of CABG with stents, mitral ring implant \-- Hypothermia, hypoxia requiring intubation and sedation \-- Sepsis (suspected/treated), leukocytosis (now resolved) \-- Ongoing vasopressor requirement (phenylephrine) \-- ICD placement planned Assessment Ms. Smith is a 54-year-old female with a past medical history notable for prior coronary artery bypass grafting (CABG) with stenting, recent mitral ring implant, and significant cardiac disease. She presented on 10/07 with an acute witnessed cardiac arrest during dinner; initial rhythm was ventricular tachycardia/atrial fibrillation. ROSC was achieved on EMS arrival after a single shock and Narcan administration. She was found to be hypothermic and hypotensive and required intubation for airway protection due to altered mental status. During her ICU course, she had recurrent ventricular tachycardia and atrial fibrillation, managed with antiarrhythmic drip (amiodarone), vasopressors (initially Levophed, currently phenylephrine), and heparin drip. Echocardiogram and left heart catheterization confirmed poor left ventricular function (EF 1520%, dilated LV) and patent bypass grafts. The patient also experienced aspiration pneumonitis, with Enterobacter cloacae isolated from sputum (sensitive to cefepime); empiric antibiotics were escalated to ertapenem following transient fever and leukocytosis, which have since resolved. Currently, she remains intubated on pressure support (tolerating CPAP trials), minimally following commands. She is on phenylephrine, Lasix drip, and heparin drip, with ongoing close monitoring. Cardiology in agreement to proceed with ICD placement given recurrent arrhythmias. Infectious disease clearance provided for this, as there is no evidence of persistent infection or sepsis (blood cultures negative, leukocytosis resolved). 10/12: awaiting AICD placement 10/13: sputum culture was done for further evaluation of persistent pneumonia , no thick secretions 10/14:Dr. bernardo recommends stopping aminopterin drip and LFTs appear to be improving with this change 10/15:lfts are normalizing , sputum shows krystal colonization 10/16: holding excavation til placement 10/17:s/p AICD placement and tolerated procedure . lfts are normal and off amioterine drip 10/18: sp Status post successful implantation of dual chamber AICD, DX Biotronik, Device was programmed into VDI lower rate of 40 bpm Plan: \-- can stop ertapenem sp 10 days course for pneumonia \-- Maintain phenylephrine drip; titrate as needed to maintain MAP. \-- Monitor neurological status; currently, patient is intermittently following commands and is becoming more alert \-- No evidence of active sepsis or bacteremia at this time. \-- Continue supportive ICU care and multidisciplinary management. Authorized and Performed by: soham gramajo md Total critical care time: Approximately 36 minutes Due to a high probability of clinically significant, life threatening deterioration, the patient required my highest level of preparedness to intervene emergently and I personally spent this critical care time directly and personally managing the patient. This critical care time included obtaining a history; examining the patient; pulse oximetry; ordering and review of studies; arranging urgent treatment with development of a management plan; evaluation of patient's response to treatment; frequent reassessment; and, discussions with other providers. This critical care time was performed to assess and manage the high probability of imminent, life-threatening deterioration that could result in multi-organ failure. It was exclusive of separately billable procedures and treating other patients and teaching time. Isolation Precautions: Standard Plan discussed with: Patient Dietary Evaluation Review Comments: 1) TF Jevity 1.2Cal @ 55 ml/hr. x 24hr along with Pro-stat 1 pk daily. Start @ 20ml/hr, increase 10ml/hr Q4H until goal is reached. TF @ goal volume provides 1684 kcal (100% energy needs), 88 gm protein (100% protein needs), 1065 ml free water. 2) Water flush 100ml Q4H if allowed, adjust PRN 3) Advance to cardiac diet as medically feasible 4) Monitor NPO status, lab values, wt trend, I/O Expected Outcomes/Goals: To meet >75% estimated needs within 7 days Lab values to improve Fu 2-3 days SOHAM GRAMAJO MD Oct 18, 2024 20:50
[2024-10-19] VITALS (139 sets, daily range): BP systolic 51–225; BP diastolic 28–200; PULSE 64–144; RESP 8–28; TEMP 98.2–100.6; O2SAT 98–100
[2024-10-19 03:48] LABS: Hematocrit 28.9 % (36.0-46.0); Hemoglobin 9.3 g/dL (12.2-16.2); Mean Corpuscular Hemoglobin 30.2 pg (28.0-32.0); Mean Corpuscular Volume 94.3 fL (80.0-100.0)
[2024-10-19 03:55] LABS: Alanine Aminotransferase 17 U/L (7-40); Alkaline Phosphatase 125 U/L (46-116); Anion Gap 9 (5-15); BUN/Creatinine Ratio 23.0 (10.0-20.0); Blood Urea Nitrogen 17 mg/dL (9-23); Calcium 8.0 mg/dL (8.7-10.4); Carbon Dioxide 21 mmol/L (20-31); Chloride 102 mmol/L (98-107); Potassium 3.8 mmol/L (3.5-5.1); Sodium 132 mmol/L (136-145)
[2024-10-19 03:56] LABS: Glucose 112 mg/dL (74-106); Magnesium 1.6 mg/dL (1.6-2.6); Total Protein 6.1 g/dL (5.7-8.2)
[2024-10-19 03:58] LABS: Bilirubin, Total 0.7 mg/dL (0.2-1.0)
[2024-10-19 04:12] LABS: Albumin 2.9 g/dL (3.2-4.8)
[2024-10-19 04:50] LABS: Total Cells Counted 100.0 (100)
--- NOTE | 2024-10-19 05:38 | DVH ---
CHEST RADIOGRAPH Indication: INTUBATED Technique: Single frontal view of the chest was obtained COMPARISON: XY CHEST PORTABLE on DOS: 10/18/24, XY CHEST PORTABLE on DOS: 10/17/24, XY CHEST PORTABLE o n DOS: 10/15/24, XY CHEST PORTABLE on DOS: 10/14/24, XY CHEST PORTABLE on DOS: 10/13/24, XY CHEST PORTAB LE on DOS: 10/15/24 FINDINGS: Lines and Tubes: Endotracheal tube, enteric catheter and right central venous catheter in satisfactor y position. Lungs: Congestion Pleura: No effusion. No pneumothorax. Cardiomediastinal contours: Unremarkable Bones: Unremarkable IMPRESSION: Lines and tubes in satisfactory position. No significant interval change.
--- NOTE | 2024-10-19 06:07 | DVHPN2 ---
Progress Note - Dictate Date Seen: Oct 19, 2024 Has the PT tested + for MRSA If YES, has PT been informed?: No Medical Necessity Reason Pt with a Central, PICC or Fol: Yes vital signs Vital Sign Date Time Temp Pulse Resp B/P (MAP) Pulse Ox O2 Delivery O2 Flow Rate FiO2 10/19/24 05:53 101/52 10/19/24 05:15 100.0 69 16 100 212.0 10/19/24 04:00 30 10/19/24 04:00 Mechanical Ventilator+ Total Intake and Output 10/18/24 10/18/24 10/19/24 15:00 23:00 07:00 Intake Total 646.364 ml 607.22 ml 336.030 ml Output Total 950 ml Balance 646.364 ml -342.78 ml 336.030 ml medications Current Medications Medications Dose Ordered Sig/Liliam Route Start Time Stop Time Status Last Admin Dose Admin Midazolam HCl 50 ml @ 1 mls/hr Q24H IV 10/07/24 04:45 10/17/24 22:27 4 MLS/HR Ondansetron HCl 4 mg Q4HP PRN IV 10/07/24 10:00 Nitroglycerin 0.4 mg Q5MINP PRN SL 10/07/24 10:00 Pantoprazole Sodium 40 mg DAILY IV 10/07/24 10:00 10/18/24 09:37 40 MG Aspirin 81 mg DAILY PO 10/08/24 10:00 10/15/24 10:22 81 MG Mexiletine HCl 150 mg TID GT 10/08/24 22:00 10/19/24 05:53 150 MG Acetaminophen 500 mg Q6HP PRN PO 10/08/24 22:30 10/19/24 03:18 500 MG Enteral Nutritional Formula 1,000 ml 55ML/HR GT 10/09/24 18:45 10/18/24 03:07 1,000 ML Phenylephrine HCl 80 mg/Sodium Chloride 250 ml @ 7.5 mls/hr Q24H IV 10/10/24 09:30 10/18/24 17:12 7.5 MLS/HR Furosemide 20 mg BIDD IV 10/12/24 18:00 10/19/24 05:53 20 MG Esmolol HCl 250 ml @ 0 mls/hr Q0M IV 10/14/24 10:45 Amino Acids 0 ml @ 0 mls/hr PER PHARMACY IV 10/15/24 18:45 Diagnostic Test (Pha) 1 strip Q6HR 10/16/24 12:00 10/18/24 23:37 1 STRIP Insulin Human Regular FOLLOW SLIDING SCALE Q6HR SC 10/16/24 12:00 Dextrose 50 ml UD IV 10/16/24 09:30 Amino Acids/ Electrolytes/ Dextrose 1,000 ml @ 41 mls/hr DAILY@2200 IV 10/16/24 22:00 10/18/24 21:48 41 MLS/HR Fentanyl Citrate 250 ml @ 2.5 mls/hr Q24H IV 10/16/24 13:00 10/17/24 22:26 10 MLS/HR Polyethylene Glycol 17 gm DAILYPRN PRN GT 10/17/24 16:45 10/19/24 05:54 17 GM Doxycycline Monohydrate 100 mg Q12HR NG 10/18/24 10:00 10/18/24 21:48 100 MG Warfarin Sodium 2 mg DAILY@17 GT 10/19/24 17:00 laboratory and microbiology Laboratory Tests 10/19/24 03:10 Test 10/19/24 03:10 Range/Units Serum Glucose 112 H 74-106 mg/dL Assessment/Plan Patient is a 54-year-old female who was brought to the hospital for witnessed syncope. She is intubated and is being managed in ICU. Information was obtained by reviewing the chart and communicating with patient's son (over the phone). Family recognized witnessed syncope and started CPR and called EMS. Reportedly, EMS found the patient in ventricular fibrillation and shocked the patient and brought the patient to the hospital. Patient was intubated in emergency room and transferred to ICU. Patient was on amiodarone drip. Later the patient had ventricular tachycardia (Systane). High sensitive troponin had been minimally/flatly elevated. Presentation was not in favor of acute coronary syndrome. Cardiology is involved for cardiac aspects of care. Intubated. Noncommunicative. No JVD. Mucosa pale. No carotid bruit. Scattered rhonchi in the lungs is heard. Cardiac: Regular, no thrill. Systolic murmur 2/6 in apex is heard. Abdomen is soft. No edema in extremities. Past medical history as per son: Congenital heart disease, status post bypass WBC: 14.5 - 11.9 - 18.8 - 20.0 - 21.2 - 14.3 - 10.3 - 8.9 - 9.2 - 11.1 - 12.1 - 10.8 - 12.0 - 9.9 - 15.4 Hemoglobin: 10.1 - 9.6 - 9.2 - 8.8 - 8.7 - 8.0 - 8.3 - 8.5 - 7.8 - 10.2 - 10.7 - 9.9 - 9.7 - 9.3 - 9.3 Creatinine: 0.95 - 0.93 - 0.87 - 0.83 - 0.83 - 0.76 - 0.68 - 0.72 - 0.79 - 0.76 - 0.80 - 0.84 - 0.61 - 0.65 - 0.74 Potassium: 3.4 - 4.0 - 4.6 - 3.5 - 3.3 - 4.1 - 3.7 - 3.2 - 3.7 - 4.0 - 3.2 - 3.4 - 3.9 - 4.2 - 3.3 - 3.8 - 3.6 - 3.4 - 4.2 - 3.8 Magnesium: 2.0 - 1.6 - 2.0 - 3.0 - 1.5 - 1.9 - 2.1 - 1.8 - 2.0 - 1.9 - 1.9 - 2.6 - 2.0 - 1.8 - 1.6 Troponin (high sensitive): 141 - 138 - 117 BNP: 457.16 AST/ALT: 32/11 - 19/13 - 538/168 - 293/152 - 131/130 - 78/94 - 68/74 - 48/57 - 27/38 - 15/23 - 20/ - Digoxin level: 2.83 - 1.25 - 0.98 UDS: non-revealing Chest x-ray revealed: Lines and Tubes: Endotracheal tube tip projects approximately 1.4 cm above the level of the tyler. Enteric catheter courses below the lateral of the diaphragm and terminates beyond the inferior margin of the image. Right internal jugular central venous catheter terminates within the distal superior vena cava. Lungs: Moderate diffuse increased prominence of the pulmonary vasculature without evidence of focal consolidation. Pleura: No effusion. No pneumothorax. Cardiomediastinal contours: Cardiomegaly. Bones: Unremarkable IMPRESSION: 1. Cardiomegaly and diffuse increased prominence of the pulmonary vasculature. 2. Lines and tubes as above. Repeat chest x-ray revealed: IMPRESSION: 1. Endotracheal tube tip 1.6 cm above the tyler; consider 2 cm retraction 2. Mild pulmonary vascular congestion. Moderate cardiomegaly. Repeat chest xry revealed: IMPRESSION: Endotracheal tube tip 1.6 cm above the tyler; consider 2 cm retraction Mild pulmonary vascular congestion. Moderate cardiomegaly. Repeat chest xry revealed: IMPRESSION: 1. Stable cardiomegaly, small left pleural effusion and mild diffuse increased prominence of the pulmonary vasculature. 2. Repositioned endotracheal tube as above. Remaining lines and tubes unchanged. Repeat chest xry revealed: IMPRESSION: 1. Cardiomegaly, stable diffuse increased prominence of the pulmonary vasculature and small bilateral pleural effusions. 2. Slight interval advancement of endotracheal tube as above. Remaining lines and tubes unchanged. Repeat chest xry revealed: IMPRESSION: 1. Slight interval decrease in diffuse increased prominence of the pulmonary vasculature. 2. Stable cardiomegaly and small left pleural effusion. 3. Lines and tubes unchanged. Repeat chest xry revealed: IMPRESSION: 1. Cardiomegaly and small left pleural effusion. 2. Lines and tubes unchanged. Repeat chest xry revealed: IMPRESSION: Stable lines and tubes. Similar lung aeration. Repeat chest xry revealed: IMPRESSION: Cardiomegaly and small left pleural effusion. Lines and tubes unchanged. Repeat chest xry revealed: IMPRESSION: Placement of a cardiac pacer, no pneumothorax is seen. Stable lines and tubes. KUB revealed: IMPRESSION: Nonobstructive bowel gas pattern. Nasogastric tube tip in the stomach. Large stool burden. Left upper ext arterial duplex: IMPRESSION: No hemodynamically significant stenosis based on peak systolic velocity criteria. Left lower ext arterial duplex: IMPRESSION: There is no evidence for peripheral vascular insufficiency in the left lower extremity. No significant focal stenosis is identified. Liver Ultrasound revealed: Hepatic steatosis. Hepatomegaly. Cholelithiasis. CT of the head revealed: IMPRESSION: No acute intracranial abnormality. Repeat CT of head revealed: IMPRESSION: No acute intracranial abnormality. Echocardiogram reported: lvef 15-20% dilated LV severe global dysfunction mild RV dysfunction biatrial enlargement mild moderate MAC, moderate mitral regurg mild to moderate aortic regug (images of echo reviewed and questioned presence of mitral ring and also some component (moderate of Mitral stenosis) EKG revealed sinus rhythm Telemetry revealed occasions of atrial fibrillation. There was occasional sustained ventricular tachycardia. EMS tele monitor revealed ventricular fibrillation for which the patient was shocked. Has remained sinus rhythm. Later with A-fib with MVR LHC revealed: Patent RICHMOND to LAD; Patent SVG to obtuse marginal; LVEF of 20% with increased EDP; Proximal disease in LAD/LCX RICHIE was performed: Consistent with severely reduced LVEF. Consistent with previously implanted Mitral ring, Up to moderate Mitral stenosis/Mitral Regurgitation and also Moderate Aortic insufficiency. Patient is a 54-year-old female who presented with witnessed syncope. She was found to have ventricular fibrillation for which was shocked. Later had repeated episode of sustained ventricular tachycardia. Patient has been kept in ICU. Does have baseline history of coronary artery disease for which has had bypass surgery. Left heart catheterization was performed which revealed patent R[place]D and patent SVG. ACS is not considered at this point. It is of note that the patient's echocardiogram reveals significantly use systolic function. Valvular heart disease is considered. Findings are in favor of previously implanted mitral ring. By reviewing the echo images, component of up to moderate mitral stenosis could not be ruled out. LHC was performed that ruled out any active specific ischemia as an etiology for presentation. Is off Amiodarone for abnormal LFT. Being followed by Nephrology / Pulmonary / Neurology / GI ID. Tele has remained sinus rhythm. Had episode of a-fib with RVR. Was loaded with Digoxin. Dig level was performed at wrong timing (only 5 hours after the last Dig given). Dig toxicity is not considered. Patient is back to normal sinus rhythm. Has good kidney function. Repeat Dig level is acceptable level. s/p ICD implantation by EP Syncope V-fib s/p shock Sustained V-tach Paroxysmal A-fib VHD, s/p Mitral ring Systolic heart failure Abnormal LFT, resolved s/p ICD (Biotronik) implantation by EP (Dr Armstrong) Cardiac suggestion for management: Manage in ICU Follow up electrolytes and kidney function test and correct abnormalities Full anticoagulation (a-fib with high CHADS-Vasc score). On Heparin drip for now Off Amio drip (worsened LFT) (personally discussed with EP: Dr Armstrong who advised to stop / not to restart Amiodarone) On Mexiletine If need for pressure support: use Phenyl Ephrine May consider Esmolol for PVC/Vtach EP Following s/p ICD (Biotronik) implantation by EP A/C: On Coumadin (as per EP verbal suggestion): check INR daily Pulmonary Follow up Provide previous medical records from reaching out to previous hospitals in [facility]... Further evaluation and management depends on the above and clinical course. A total of 75 minutes was spent reviewing the patient record, examining the patient, making a diagnostic and therapeutic plan, discussing this plan with medical personnel, following up on diagnostic studies and following the patient for clinical stability excluding any and all procedures. At least 50% of this time was spent in direct, [id number] contact. Thank you for allowing me to participate in this patient's care. Further recommendations will depend on patient's clinical course. Please do not hesitate to contact me if you have any questions or concerns. This medical document was created using electronic medical record system with [employer] computerized dictation system. Although this document has been carefully reviewed, there may still be some phonetic and typographical errors. These areas are purely typographical due to the imperfection of the software programs, and do not reflect any compromise in the patient's medical care. Dietary Evaluation Review Comments: 1) TF Jevity 1.2Cal @ 55 ml/hr. x 24hr along with Pro-stat 1 pk daily. Start @ 20ml/hr, increase 10ml/hr Q4H until goal is reached. TF @ goal volume provides 1684 kcal (100% energy needs), 88 gm protein (100% protein needs), 1065 ml free water. 2) Water flush 100ml Q4H if allowed, adjust PRN 3) Advance to cardiac diet as medically feasible 4) Monitor NPO status, lab values, wt trend, I/O Expected Outcomes/Goals: To meet >75% estimated needs within 7 days Lab values to improve Fu 2-3 days Plan discussed with: Other (nurse) CORDELL VERA MD Oct 19, 2024 06:07
[2024-10-19 06:37] LABS: Base Excess -3.5 mmol/L (-2.0-3.0)
[2024-10-19] MEDS: MAGNESIUM SULFATE 1GM/100ML 100 ML IV SCH (07:08)
[2024-10-19] MEDS: POTASSIUM CHL 20MEQ/100ML 100 ML IV SCH (07:08)
[2024-10-19 11:39] LABS: INR 1.16 (0.9-1.15); Prothrombin Time 12.1 sec (9.3-11.8)
[2024-10-19] MEDS ORDERED: NOREPINEPHRINE 8 MG/250ML KIT 250 ML IV SCH (11:45)
--- NOTE | 2024-10-19 13:15 | DVHPN2 ---
Progress Note - Dictate Date Seen: Oct 19, 2024 Has the PT tested + for MRSA If YES, has PT been informed?: No Medical Necessity Reason Pt with a Central, PICC or Fol: Yes vital signs Vital Sign Date Time Temp Pulse Resp B/P (MAP) Pulse Ox O2 Delivery O2 Flow Rate FiO2 10/19/24 12:00 20 100 Mechanical Ventilator+ 30 30 10/19/24 12:00 66 10/19/24 10:31 92/30 (50) 10/19/24 07:30 99.0 210.2 Total Intake and Output 10/18/24 10/18/24 10/19/24 15:00 23:00 07:00 Intake Total 646.364 ml 607.22 ml 956.218 ml Output Total 950 ml 875 ml Balance 646.364 ml -342.78 ml 81.218 ml medications Current Medications Medications Dose Ordered Sig/Liliam Route Start Time Stop Time Status Last Admin Dose Admin Midazolam HCl 50 ml @ 1 mls/hr Q24H IV 10/07/24 04:45 10/17/24 22:27 4 MLS/HR Ondansetron HCl 4 mg Q4HP PRN IV 10/07/24 10:00 Nitroglycerin 0.4 mg Q5MINP PRN SL 10/07/24 10:00 Pantoprazole Sodium 40 mg DAILY IV 10/07/24 10:00 10/19/24 09:22 40 MG Aspirin 81 mg DAILY PO 10/08/24 10:00 10/19/24 09:22 81 MG Mexiletine HCl 150 mg TID GT 10/08/24 22:00 10/19/24 05:53 150 MG Acetaminophen 500 mg Q6HP PRN PO 10/08/24 22:30 10/19/24 03:18 500 MG Enteral Nutritional Formula 1,000 ml 55ML/HR GT 10/09/24 18:45 10/18/24 03:07 1,000 ML Phenylephrine HCl 80 mg/Sodium Chloride 250 ml @ 7.5 mls/hr Q24H IV 10/10/24 09:30 10/19/24 12:35 33.75 MLS/HR Furosemide 20 mg BIDD IV 10/12/24 18:00 10/19/24 05:53 20 MG Esmolol HCl 250 ml @ 0 mls/hr Q0M IV 10/14/24 10:45 Amino Acids 0 ml @ 0 mls/hr PER PHARMACY IV 10/15/24 18:45 Diagnostic Test (Pha) 1 strip Q6HR 10/16/24 12:00 10/19/24 12:33 1 STRIP Insulin Human Regular FOLLOW SLIDING SCALE Q6HR SC 10/16/24 12:00 Dextrose 50 ml UD IV 10/16/24 09:30 Amino Acids/ Electrolytes/ Dextrose 1,000 ml @ 41 mls/hr DAILY@2200 IV 10/16/24 22:00 10/18/24 21:48 41 MLS/HR Fentanyl Citrate 250 ml @ 2.5 mls/hr Q24H IV 10/16/24 13:00 10/17/24 22:26 10 MLS/HR Polyethylene Glycol 17 gm DAILYPRN PRN GT 10/17/24 16:45 10/19/24 05:54 17 GM Doxycycline Monohydrate 100 mg Q12HR NG 10/18/24 10:00 10/19/24 09:22 100 MG Warfarin Sodium 2 mg DAILY@17 GT 10/19/24 17:00 Albumin Human 100 ml @ 100 mls/hr Q8H IV 10/19/24 12:30 10/20/24 05:29 Norepinephrine Bitartrate 32 mg/ Sodium Chloride 250 ml @ 0.938 mls/ hr Q24H IV 10/19/24 12:45 objective General Appearance: no distress HEENT: EOMI, PERRLA, normal external inspect of ears, no icterus, no nasal drainage Neck: no carotid bruit, no jugular venous distention (JVD), no lymphadenopathy Chest: normal thorax Respiratory: Intubated, clear to auscultation, normal air movement Cardiovascular: regular rate and rhythm, no diastolic murmur, no jugular venous distention (JVD), no rub, no systolic murmur Abdominal: soft, no hepatomegaly, no mass, no splenomegaly, no tenderness Genitourinary: grossly normal external Musculoskeletal: no joint tenderness, no swelling Extremities: normal pulses, no calf tenderness, no clubbing, no cyanosis, no edema Skin: no bruising, no jaundice, no rash Neurological: No focal deficit laboratory and microbiology Laboratory Tests 10/19/24 03:10 Test 10/19/24 03:10 Range/Units Serum Glucose 112 H 74-106 mg/dL Problem List Cardiac Arrest with Ventricular Fibrillation Assessment: Patient experienced cardiac arrest with ventricular fibrillation on 10/07/24, witnessed by family members who initiated CPR. EMS found the patient in ventricular fibrillation and administered shock therapy. Rhythm strip analysis confirmed ventricular fibrillation. Patient required intubation and sedation upon ED arrival. Currently admitted to ICU for close observation. Cardiology has been consulted and plans for AICD placement, likely on Tuesday. Infectious disease clearance has been obtained for the AICD procedure, addressing initial concerns of leukocytosis which is now improving. Status post-cardiac arrest. Plan: - Continue ICU monitoring - Proceed with AICD placement as planned (likely Tuesday), cleared by infectious disease. - Maintain intubation and sedation until AICD placement - Continue Heparin drip for paroxysmal atrial fibrillation - Continue Mexitil - DC amiodarone due to transaminitis - added esmolol drip per Cardiology for AFib and added push doses of digoxin Coronary Artery Disease Assessment: Patient with history of 2-vessel CABG (Coronary Artery Bypass Grafting). Surgical intervention previously performed to address significant coronary artery stenosis. Plan: - Continue medical management - Follow up with cardiology for ongoing coronary artery disease management Acute and Chronic Systolic Heart Failure Assessment: Patient has acute and chronic systolic heart failure with severely reduced left ventricular function. Ejection fraction is estimated at 15-20%. RICHIE findings are consistent with severely reduced left ventricular ejection fraction, previously implanted mitral ring, up to moderate mitral stenosis and regurgitation, and moderate aortic insufficiency. Plan: - Continue cardiology consultation - continue IV diuretics (IV Lasix) - Monitor renal function Acute Hypoxic Respiratory Failure Assessment: Patient is currently intubated due to acute hypoxic respiratory failure. Dr. Downey from pulmonology is managing this aspect of care. Plan: - Maintain current intubation as per pulmonology recommendation - Proceed with CPAP trials when deemed appropriate by pulmonology Transaminitis Assessment: Patient has elevated liver function tests, likely secondary to amiodarone use. Cardiology has discontinued amiodarone in response. Plan: - Monitor liver function tests - Amiodarone discontinued as per cardiology Enterobacter PNA Assessment: Sputum culture positive for Enterobacter. Plan: - Continue treatment with Eratapenem to complete 10 days regimen -Infectious disease consult Hemodynamic Support Assessment: Patient requires vasopressor support for hemodynamic stability. Plan: - Continue vasopressin - Continue neosynephrine Paroxysmal a fib -DC amiodarone -continue with heparin gtt Assessment/Plan Subjective: Patient remains intubated and sedated. Objective: Patient developed hypotension today and was noted to have ventricular arrhythmias. He sustained a shock from his pacemaker. Patient has a history of pacemaker placement by Dr. Armstrong. He developed hypotension and was briefly placed on vasopressors. Pulmonary was at bedside. Antibiotics were broadened with vancomycin, and pancultures were obtained. Albumin was added for hypotension and shock, most likely septic shock. Patient was started on amiodarone for ventricular tachycardia. Plan: Continue antibiotics. Patient will remain sedated due to arrhythmias. Monitor daily labs. Patients son was updated on the plan of care. Dietary Evaluation Review Comments: 1) TF Jevity 1.2Cal @ 55 ml/hr. x 24hr along with Pro-stat 1 pk daily. Start @ 20ml/hr, increase 10ml/hr Q4H until goal is reached. TF @ goal volume provides 1684 kcal (100% energy needs), 88 gm protein (100% protein needs), 1065 ml free water. 2) Water flush 100ml Q4H if allowed, adjust PRN 3) Advance to cardiac diet as medically feasible 4) Monitor NPO status, lab values, wt trend, I/O Expected Outcomes/Goals: To meet >75% estimated needs within 7 days Lab values to improve Fu 2-3 days Plan discussed with: Patient, Other BRODIE GARVIN [employer] H[employer]ORY INSTRUCTOR Oct 19, 2024 13:15
[2024-10-19] MEDS: NOREPINEPHRINE BITARTRATE 32 MG in SODIUM CHL 0.9% 218 ML IV SCH (13:19)
[2024-10-19] MEDS: ALBUMIN 25% 100 ML IV SCH (13:29)
[2024-10-19 13:53] LABS: Lactic Acid w/Reflex 2.3 mmol/L (0.4-2.0)
[2024-10-19] MEDS ORDERED: VANCOMYCIN PER PHARMACY 0 MG IV SCH (14:00)
[2024-10-19] MEDS: PIPERACILLIN-TAZOB 3.375GM 100 ML IV SCH (14:18)
[2024-10-19] MEDS: VANCOMYCIN 1GM/250ML KIT 250 ML IV ONE (14:19)
[2024-10-19] MEDS: AMIODARONE 360mg/200mL PREMIX 200 ML IV ONE ×2 (14:27→15:44)
[2024-10-19] MEDS: AMIODARONE BOLUS KIT 100 ML IV ONE ×2 (14:27→15:43)
--- NOTE | 2024-10-19 14:50 | DVHPN2 ---
Progress Note - Dictate Date Seen: Oct 19, 2024 Has the PT tested + for MRSA If YES, has PT been informed?: No Medical Necessity Reason Pt with a Central, PICC or Fol: Yes vital signs Vital Sign Date Time Temp Pulse Resp B/P (MAP) Pulse Ox O2 Delivery O2 Flow Rate FiO2 10/19/24 13:59 122 22 169/99 (122) 99 30 10/19/24 12:00 Mechanical Ventilator+ 10/19/24 07:30 99.0 210.2 Total Intake and Output 10/18/24 10/18/24 10/19/24 15:00 23:00 07:00 Intake Total 646.364 ml 607.22 ml 956.218 ml Output Total 950 ml 875 ml Balance 646.364 ml -342.78 ml 81.218 ml medications Current Medications Medications Dose Ordered Sig/Liliam Route Start Time Stop Time Status Last Admin Dose Admin Midazolam HCl 50 ml @ 1 mls/hr Q24H IV 10/07/24 04:45 10/17/24 22:27 4 MLS/HR Ondansetron HCl 4 mg Q4HP PRN IV 10/07/24 10:00 Nitroglycerin 0.4 mg Q5MINP PRN SL 10/07/24 10:00 Pantoprazole Sodium 40 mg DAILY IV 10/07/24 10:00 10/19/24 09:22 40 MG Aspirin 81 mg DAILY PO 10/08/24 10:00 10/19/24 09:22 81 MG Mexiletine HCl 150 mg TID GT 10/08/24 22:00 10/19/24 14:19 150 MG Acetaminophen 500 mg Q6HP PRN PO 10/08/24 22:30 10/19/24 03:18 500 MG Enteral Nutritional Formula 1,000 ml 55ML/HR GT 10/09/24 18:45 10/18/24 03:07 1,000 ML Phenylephrine HCl 80 mg/Sodium Chloride 250 ml @ 7.5 mls/hr Q24H IV 10/10/24 09:30 10/19/24 12:35 33.75 MLS/HR Furosemide 20 mg BIDD IV 10/12/24 18:00 10/19/24 05:53 20 MG Esmolol HCl 250 ml @ 0 mls/hr Q0M IV 10/14/24 10:45 Amino Acids 0 ml @ 0 mls/hr PER PHARMACY IV 10/15/24 18:45 Diagnostic Test (Pha) 1 strip Q6HR 10/16/24 12:00 10/19/24 12:33 1 STRIP Insulin Human Regular FOLLOW SLIDING SCALE Q6HR SC 10/16/24 12:00 Dextrose 50 ml UD IV 10/16/24 09:30 Amino Acids/ Electrolytes/ Dextrose 1,000 ml @ 41 mls/hr DAILY@2200 IV 10/16/24 22:00 10/18/24 21:48 41 MLS/HR Fentanyl Citrate 250 ml @ 2.5 mls/hr Q24H IV 10/16/24 13:00 10/17/24 22:26 10 MLS/HR Polyethylene Glycol 17 gm DAILYPRN PRN GT 10/17/24 16:45 10/19/24 05:54 17 GM Doxycycline Monohydrate 100 mg Q12HR NG 10/18/24 10:00 10/19/24 09:22 100 MG Warfarin Sodium 2 mg DAILY@17 GT 10/19/24 17:00 Albumin Human 100 ml @ 100 mls/hr Q8H IV 10/19/24 12:30 10/20/24 05:29 10/19/24 13:29 100 MLS/HR Norepinephrine Bitartrate 32 mg/ Sodium Chloride 250 ml @ 0.938 mls/ hr Q24H IV 10/19/24 12:45 10/19/24 13:19 0.938 MLS/HR Piperacillin Sod/ Tazobactam Sod 100 ml @ 25 mls/hr Q8HR IV 10/19/24 14:00 10/19/24 14:18 25 MLS/HR Hydrocortisone Sodium Succinate 50 mg Q6HR IV 10/19/24 18:00 Vancomycin HCl 0 ml @ 0 mls/hr UD IV 10/19/24 14:00 laboratory and microbiology Laboratory Tests 10/19/24 03:10 Test 10/19/24 03:10 Range/Units Serum Glucose 112 H 74-106 mg/dL Assessment/Plan ASSESSMENT: This is a 54-year old female who initially presented 10/07/2024 due to witnessed syncope. As per records and having spoke with family members (son/father), patient had collapsed in the kitchen as witnessed by nearby family members whom had initiated CPR. EMS had been called for further medical attention and upon their arrival reports indicate the patient had been found in ventricular fibrillation for which she was subsequently shocked by EMS and upon rhythm strip analysis of the event, rhythm itself does reveal evidence for what appears to be ventricular fibrillation requiring shock x 1 which upon ED arrival 12-lead electrocardiogram had revealed sinus rhythm at 84bpm, QRS of 96ms with a QTC interval of 495 ms. Upon ED arrival patient was intubated and initiated on Amiodarone infusion for rhythm management. Patient was later admitted to the ICU for close observation/management and had been noted to experience episodes of ventricular tachycardia that had degenerated into ventricular fibrillation resulting in cardiac arrest requiring initiation of CPR/ACLS protocol which the patient was subsequently shocked x 1 resulting in ROSC. Patient did undergo subsequent cardiac catheterization 10/08/2024 by Interventional Cardiology services revealing patent RICHMOND to LAD, patent SVG to obtuse marginal, proximal disease involving LAD and LCX. Echocardiogram 10/07/2024 had revealed a severely reduced LVEF function of 15-20%, dilated LV with severe global dysfunction, biatrial enlargement, moderate mitral insufficiency with mild to moderate aortic insufficiency. TTE itself had questioned potential presence of mitral ring and potential underlying component of mitral stenosis which subsequent RICHIE 10/08/2024 had revealed evidence of mitral ring with up to moderate mitral stenosis/mitral insufficiency in addition to moderate aortic insufficiency. Throughout course of present admission, patient has been furthermore noted to experience episodes of paroxysmal atrial fibrillation for which she has been maintained on anticoagulation for CVA prophylaxis. As the patient presented and was found to experience episodes of ventricular fibrillation requiring a total of 2 shocks, Electrophysiology services were later involved by Interventional Cardiology request to evaluate the patient for potential AICD implantation. Reported past medical history includes congenital heart disease, coronary artery disease status post previous bypass surgery Echocardiogram: (10/07/2024) revealed lvef 15-20% dilated LV severe global dysfunction mild RV dysfunction biatrial enlargement mild moderate MAC, moderate mitral regurg mild to moderate aortic regug (images of echo reviewed and questioned presence of mitral ring and also some component (moderate of Mitral stenosis) Cardiac Catheterization: (10/08/2024) revealed Patent RICHMOND to LAD; Patent SVG to obtuse marginal; LVEF of 20% with increased EDP; Proximal disease in LAD/LCX Transesophageal Echocardiogram (10/08/2024) revealed was performed: Consistent with severely reduced LVEF. Consistent with previously implanted Mitral ring, Up to moderate Mitral stenosis/Mitral Regurgitation and also Moderate Aortic insufficiency. Syncope, witnessed Cardiac arrest, status post ROSC Ventricular fibrillation, requiring shock x 2 Ventricular tachycardia with degeneration to ventricular fibrillation Systolic heart failure, severely reduced LV function of 15-20% Paroxysmal atrial fibrillation, currently sinus rhythm Coronary artery disease, s/p previous 2-V CABG Valvular heart disease, s/p previous mitral ring Beta-hemolytic group B streptococcus QRS < 120 milliseconds Secondary prevention Status post successful Biotronik DX AICD implantation 10/17/2024 ELECTROPHYSIOLOGY SUGGESTIONS FOR MANAGEMENT: Seen and examined at the bedside within the ICU. Status post successful Biotronik DX AICD implantation 10/17/2024. Subsequent device interrogation had revealed adequate sensing/pacing parameters, overall appropriately functioning device. Post operative chest imaging revealed no evidence for pneumothorax. Dressing to site of implantation appears clean, dry, and intact upon visual inspection. Dressing is to remain clean, dry, and intact. To proceed with sling to left upper extremity. Proceed with Doxycycline 100mg twice daily for a total of 14 doses. Proceed to hold anti-platelet/anticoagulation therapy for approximately seven day post device implantation to reduce potential risk for unwarranted intra-pocket hemorrhage. Will need to have man removed this upcoming Tuesday10/24/2024. Remainder of cardiac management as per Interventional Cardiology services. EP-arenas, stable. As patient remains EP stable, will sign off at this time. GDMT for systolic heart failure as current conditions permit Proceed with close rate and rhythm surveillance Proceed with close hemodynamic surveillance Proceed with optimized blood pressure control Transfuse to sustain HGB level above 7.0 Sustain Magnesium level greater than 2.0 Sustain Potassium level greater than 4.0 Follow up renal function and electrolytes Management of ongoing concurrent medical conditions as per primary team Management of beta-hemolytic group B strep as per primary team/ID Management comorbidities as per primary team Management in the ICU Follow up field technical support consultant recommendations Will proceed to follow from an EP perspective Further recommendations per clinical progression All available diagnostic labs, EKG's, and images were personally reviewed Patient's status, findings, and plan of care was reviewed and discussed with supervising physician Dr. Armstrong, who is in agreement with current plan of care. Plan of care discussed with and agreed upon by family / primary RN Prognosis: Guarded Thank you for allowing me to participate in the care of this patient. Further recommendations based on patients clinical course and progression, primary attending, and other consultants. Will continue to follow with primary attending. If you have any questions or concerns, please do not hesitate to contact me. A total of 75 minutes was spent reviewing the patient record, examining the patient, making a diagnostic and therapeutic plan, discussing this plan with medical personnel, following up on diagnostic studies and following the patient for clinical stability excluding any and all procedures. At least 50% of this time was spent in direct, [id number] contact. Plan discussed with: Other (Primary RN and Patient Son) Dietary Evaluation Review Comments: 1) TF Jevity 1.2Cal @ 55 ml/hr. x 24hr along with Pro-stat 1 pk daily. Start @ 20ml/hr, increase 10ml/hr Q4H until goal is reached. TF @ goal volume provides 1684 kcal (100% energy needs), 88 gm protein (100% protein needs), 1065 ml free water. 2) Water flush 100ml Q4H if allowed, adjust PRN 3) Advance to cardiac diet as medically feasible 4) Monitor NPO status, lab values, wt trend, I/O Expected Outcomes/Goals: To meet >75% estimated needs within 7 days Lab values to improve Fu 2-3 days Plan discussed with: Other (primary rn ) TUCKER CRUZ Oct 19, 2024 14:50
[2024-10-19] MEDS ORDERED: MAGNESIUM SULFATE 1GM/100ML 100 ML IV SCH (15:00)
--- NOTE | 2024-10-19 15:21 | DVHPN2 ---
Progress Note Date Seen: Oct 19, 2024 Resident Creating Document: SHANKAR VALDEZ RESIDENT Has the PT tested + for MRSA If YES, has PT been informed?: No Medical Necessity Reason Pt with a Central, PICC or Fol: Yes Subjective Review of Systems Today's progress- The patient is off sedation today. CPAP trials failed today. ICU team will repeat the CPAP trials again. Her abdominal x-ray reveals large stool burden. The patient is still intubated and mechanically ventilated. MiraLax dosage yesterday did not improve her bowel movements. Hemoglobin stable at 9.3 low, WBC count is increased to 15.4 high. Platelet count is at 57 low worsened from 89 low. Giving a lactulose via GT for bowel movement. The patient had bowel movements today We are signing off on this patient we were initially consulted for elevated liver enzymes but they have normalized now most likely due to ischemic liver. Objective vital signs Vital Sign Date Time Temp Pulse Resp B/P (MAP) Pulse Ox O2 Delivery O2 Flow Rate FiO2 10/19/24 13:59 122 22 169/99 (122) 99 30 10/19/24 12:15 99.1 210.4 10/19/24 12:00 Mechanical Ventilator+ Total Intake and Output 10/18/24 10/18/24 10/19/24 15:00 23:00 07:00 Intake Total 646.364 ml 607.22 ml 956.218 ml Output Total 950 ml 875 ml Balance 646.364 ml -342.78 ml 81.218 ml medications Current Medications Medications Dose Ordered Sig/Liliam Route Start Time Stop Time Status Last Admin Dose Admin Midazolam HCl 50 ml @ 1 mls/hr Q24H IV 10/07/24 04:45 10/17/24 22:27 4 MLS/HR Ondansetron HCl 4 mg Q4HP PRN IV 10/07/24 10:00 Nitroglycerin 0.4 mg Q5MINP PRN SL 10/07/24 10:00 Pantoprazole Sodium 40 mg DAILY IV 10/07/24 10:00 10/19/24 09:22 40 MG Aspirin 81 mg DAILY PO 10/08/24 10:00 10/19/24 09:22 81 MG Mexiletine HCl 150 mg TID GT 10/08/24 22:00 10/19/24 14:19 150 MG Acetaminophen 500 mg Q6HP PRN PO 10/08/24 22:30 10/19/24 03:18 500 MG Enteral Nutritional Formula 1,000 ml 55ML/HR GT 10/09/24 18:45 10/18/24 03:07 1,000 ML Phenylephrine HCl 80 mg/Sodium Chloride 250 ml @ 7.5 mls/hr Q24H IV 10/10/24 09:30 10/19/24 12:35 33.75 MLS/HR Furosemide 20 mg BIDD IV 10/12/24 18:00 10/19/24 05:53 20 MG Esmolol HCl 250 ml @ 0 mls/hr Q0M IV 10/14/24 10:45 Amino Acids 0 ml @ 0 mls/hr PER PHARMACY IV 10/15/24 18:45 Diagnostic Test (Pha) 1 strip Q6HR 10/16/24 12:00 10/19/24 12:33 1 STRIP Insulin Human Regular FOLLOW SLIDING SCALE Q6HR SC 10/16/24 12:00 Dextrose 50 ml UD IV 10/16/24 09:30 Amino Acids/ Electrolytes/ Dextrose 1,000 ml @ 41 mls/hr DAILY@2200 IV 10/16/24 22:00 10/18/24 21:48 41 MLS/HR Fentanyl Citrate 250 ml @ 2.5 mls/hr Q24H IV 10/16/24 13:00 10/17/24 22:26 10 MLS/HR Polyethylene Glycol 17 gm DAILYPRN PRN GT 10/17/24 16:45 10/19/24 05:54 17 GM Doxycycline Monohydrate 100 mg Q12HR NG 10/18/24 10:00 10/19/24 09:22 100 MG Warfarin Sodium 2 mg DAILY@17 GT 10/19/24 17:00 Albumin Human 100 ml @ 100 mls/hr Q8H IV 10/19/24 12:30 10/20/24 05:29 10/19/24 13:29 100 MLS/HR Norepinephrine Bitartrate 32 mg/ Sodium Chloride 250 ml @ 0.938 mls/ hr Q24H IV 10/19/24 12:45 10/19/24 13:19 0.938 MLS/HR Piperacillin Sod/ Tazobactam Sod 100 ml @ 25 mls/hr Q8HR IV 10/19/24 14:00 10/19/24 14:18 25 MLS/HR Hydrocortisone Sodium Succinate 50 mg Q6HR IV 10/19/24 18:00 Vancomycin HCl 0 ml @ 0 mls/hr UD IV 10/19/24 14:00 Magnesium Sulfate/ Dextrose 100 ml @ 100 mls/hr Q1HR IV 10/19/24 15:00 Hold Examination GENERAL:Normal, LUNGS:Abnormal (diminished on ventillator ), ABDOMEN:Normal, SKIN:Normal, NEURO:Normal laboratory and microbiology Laboratory Tests 10/19/24 03:10 Test 10/19/24 03:10 Range/Units Serum Glucose 112 H 74-106 mg/dL Microbiology Date/Time Source Procedure Growth Status 10/13/24 11:00 Sputum Endotracheal Wash Gram Stain - Final Complete 10/13/24 11:00 Respiratory Culture - Final Presumptive Ilda albicans Complete 10/09/24 08:49 Blood Blood Culture - Final NO GROWTH AFTER 5 DAYS OF INCUBATION. Complete 10/07/24 16:50 Nose MRSA Screen - Final Complete Problem List/Assessment/Plan Problem List/Assessment/Plan Acute hepatocellular injury most likely SHOCK LIVER NAFLD with steatohepatitis Cholelithiasis without acute inflammation Plan/Recommendation Plan Hepatic / GI-LFTs have normalized * Continue to trend LFTs, INR, albumin daily * Avoid all hepatotoxic medications amiodarone documented as causing hepatotoxicity * Monitor for signs of acute liver failure (AMS, INR >1.5, hypoglycemia) * Maintain hemodynamic stability to optimize hepatic perfusion. Continue protonix Nutrition START CLINIMIX TPN VIA IV TODAY. Administering lactulose via GT today for constipation * Continue current enteral feeding via GT at 55 mL/hr (1.2 Ron/Fiber formula) * Monitor tolerance, bowel function, and risk for aspiration * Check nutrition labs (albumin, prealbumin weekly) Gallstones * Cholelithiasis without acute inflammation no surgical intervention needed at present * Outpatient surgical evaluation if future biliary symptoms occur Coagulopathy * Mild INR elevation, likely multifactorial (acute liver injury + anticoagulation) * Continue monitoring; vitamin K if INR worsens or bleeding occurs Infection Control (GI-relevant) * Continue current antibiotic therapy: Ertapenem 1 g IV daily (for non-GI infection per primary/ID) * Monitor for secondary biliary sepsis; repeat RUQ ultrasound if bilirubin rises or leukocytosis worsens Thank you for the consult. We are signing off on this patient initially we were consulted for elevated LFTs No LFTs have normalized and the patient started to have bowel movements. The elevated LFTs are due to ischemic liver. Case discussed in detail with the attending physician, including the clinical presentation, diagnostic workup, and comprehensive management plan. Plan discussed with: Other (RN) My Orders My Orders Orders - SHANKAR VALDEZ Procedure Category Date Status Time Comprehensive LAB 10/20/24 Verified Metabolic Panel 05:00 Phosphorus LAB 10/20/24 Verified 05:00 Magnesium LAB 10/20/24 Verified 05:00 Clinimix Per Pharmacy LUIS ARMANDO 10/19/24 In Process 22:00 Magnesium Sulfate PHA 10/19/24 In Process 1gm/100ml 15:00 Dietary Evaluation Review Comments: 1) TF Jevity 1.2Cal @ 55 ml/hr. x 24hr along with Pro-stat 1 pk daily. Start @ 20ml/hr, increase 10ml/hr Q4H until goal is reached. TF @ goal volume provides 1684 kcal (100% energy needs), 88 gm protein (100% protein needs), 1065 ml free water. 2) Water flush 100ml Q4H if allowed, adjust PRN 3) Advance to cardiac diet as medically feasible 4) Monitor NPO status, lab values, wt trend, I/O Expected Outcomes/Goals: To meet >75% estimated needs within 7 days Lab values to improve Fu 2-3 days SHANKAR VALDEZ RESIDENT Oct 19, 2024 15:21
[2024-10-19] MEDS: VASOPRESSIN 20 UNITS in SODIUM CHL 0.9% 99 ML IV SCH (15:45)
[2024-10-19] MEDS: HYDROCORTISONE SOD SUCC 100 MG/2ML INJ VIAL IV SCH (17:49)
[2024-10-19] MEDS: WARFARIN SODIUM 2 MG TAB GT SCH (17:50)
[2024-10-19] MEDS: AMIODARONE 360mg/200mL PREMIX 200 ML IV SCH (19:25)
[2024-10-19 21:55] LABS: Mean Corpuscular Volume 97.5 fL (80.0-100.0)
[2024-10-19 21:57] LABS: Hematocrit 27.1 % (36.0-46.0); Hemoglobin 8.6 g/dL (12.2-16.2); Mean Corpuscular Hemoglobin 31.0 pg (28.0-32.0); Nucleated Red Blood Cells % 0.2 %
[2024-10-19 22:01] LABS: Alanine Aminotransferase 16 U/L (7-40); Albumin 3.2 g/dL (3.2-4.8); Anion Gap 10 (5-15); Bilirubin, Total 0.9 mg/dL (0.2-1.0); Blood Urea Nitrogen 13 mg/dL (9-23); Chloride 105 mmol/L (98-107); Magnesium 2.0 mg/dL (1.6-2.6); Potassium 4.5 mmol/L (3.5-5.1); Total Protein 5.9 g/dL (5.7-8.2)
[2024-10-19 22:03] LABS: Alkaline Phosphatase 119 U/L (46-116); Calcium 8.0 mg/dL (8.7-10.4); Carbon Dioxide 16 mmol/L (20-31); Glucose 113 mg/dL (74-106); Sodium 131 mmol/L (136-145)
[2024-10-19 22:10] LABS: BUN/Creatinine Ratio 20.3 (10.0-20.0)
--- NOTE | 2024-10-19 22:41 | DVHPN2 ---
Progress Note - Dictate Date Seen: Oct 19, 2024 Has the PT tested + for MRSA If YES, has PT been informed?: No Medical Necessity Reason Pt with a Central, PICC or Fol: Yes Subjective Ms. Smith is a 54 years old female who was brought to the [facility] on 10/07/2024 with a chief complaint of cardiopulmonary arrest/status post CPR. I have seen and examined the patient, I have discussed with her nurse, she is intubated, sedated, responsive to light painful stimuli When the sedation was Hold off earlier today, she was waking up, but has been re-sedated because of unstable vitals She received pacemaker insertion on 10/17/2024 Fentanyl 123 mcg/hour, Versed 4 mg/hour, Precedex 0 mcg/kg per hour, Neosyn 90 mcg/min Blood culture, 10/09/2024: UDS, 10/07/2024: Negative Urinalysis, 10/07/2024: Leukocyte esterase: Negative WBC/HB/PLT/MCV, 10/09/2024: 20/8.8/219/94.6, 10/10/2024: 21.2/8.7/232/92.2 PT/INR/PTT, 10/08/2024: 12.4/1.19/72.7, 10/09/2024: 13.1/1.26/68.9, 10/10/2024: 14.4/2/1.38/35.3 CMP, 10/08/2024: Unremarkable Troponin one high sensitivity, 10/07/2024: 141, 138, 117 TBI/AST/ALT/AP, 10/10/2024: 0.5/538/168/144, 10/11/2024: 0.6/293/199/152, 10/14/2024: 0.8/68/74/124 TG/HDL/LDL/HDL, 10/07/24: 71/66/31/21 Echocardiogram, 10/07/2024: lvef 15-20% dilated LV severe global dysfunction mild RV dysfunction biatrial enlargement mild moderate MAC, moderate mitral regurg mild to moderate aortic regug RICHIE, 10/08/2024: 1. Left ventricle: Dilated LV was seen. LVEF was 25%. There was diffuse hypokinesis of left ventricle. 2. Right ventricle: RV was mildly dilated. 3. Left atrium: LA enlarged 4. Right atrium: RA was enlarged. 5. Mitral valve: Mitral was thickened with reduced opening. Moderate Mitral regurgitation was seen. Planinomentry of valve (TTE images also obtained) revealed MVA of 2.1 cm. Mean pressure gradient (obtained from limited TTE images) was 5. Images are consistent with previously implanted Ring in Mitral position. Consistent with up to Moderate Mitral stenosis. . There was no vegetation 6. Left atrial appendage: No evidence of thrombus. 7. Aortic valve: Trileaflet valve. No stenosis. Up to moderate Aortic Insufficiency was seen. There was no vegetation 8. Pulmonic valve: Trivial pulmonic insufficiency. No significant stenosis. 9. Tricuspid valve: Mild tricuspid regurgitation. There was no vegetation 10. Interatrial septum: Negative color flow for right to left shunt was observed. Bubble study was performed: negative for shunt 11. Pericardium: No significant effusion. 12. Thoracic aorta: No significant plaquing. Chest x-ray, 10/27/2024: 1. Cardiomegaly, stable diffuse increased prominence of the pulmonary vasculature and small bilateral pleural effusions. 2. Slight interval advancement of endotracheal tube as above. Remaining lines and tubes unchanged. CT head, 10/07/2024: No acute intracranial abnormality General: the patient is well developed and nourished. No acute distress. Intubated CT head, 10/07/2024: No acute intracranial abnormality. CT head, 10/11/2024: No acute intracranial abnormality vital signs Vital Sign Date Time Temp Pulse Resp B/P (MAP) Pulse Ox O2 Delivery O2 Flow Rate FiO2 10/19/24 21:53 67 28 114/55 (74) 100 30 10/19/24 19:50 99.7 211.5 10/19/24 18:00 Mechanical Ventilator+ Total Intake and Output 10/18/24 10/18/24 10/19/24 15:00 23:00 07:00 Intake Total 646.364 ml 607.22 ml 956.218 ml Output Total 950 ml 875 ml Balance 646.364 ml -342.78 ml 81.218 ml medications Current Medications Medications Dose Ordered Sig/Liliam Route Start Time Stop Time Status Last Admin Dose Admin Midazolam HCl 50 ml @ 1 mls/hr Q24H IV 10/07/24 04:45 10/17/24 22:27 4 MLS/HR Ondansetron HCl 4 mg Q4HP PRN IV 10/07/24 10:00 Nitroglycerin 0.4 mg Q5MINP PRN SL 10/07/24 10:00 Pantoprazole Sodium 40 mg DAILY IV 10/07/24 10:00 10/19/24 09:22 40 MG Aspirin 81 mg DAILY PO 10/08/24 10:00 10/19/24 09:22 81 MG Mexiletine HCl 150 mg TID GT 10/08/24 22:00 10/19/24 14:19 150 MG Acetaminophen 500 mg Q6HP PRN PO 10/08/24 22:30 10/19/24 03:18 500 MG Enteral Nutritional Formula 1,000 ml 55ML/HR GT 10/09/24 18:45 10/18/24 03:07 1,000 ML Phenylephrine HCl 80 mg/Sodium Chloride 250 ml @ 7.5 mls/hr Q24H IV 10/10/24 09:30 10/19/24 12:35 33.75 MLS/HR Furosemide 20 mg BIDD IV 10/12/24 18:00 10/19/24 05:53 20 MG Esmolol HCl 250 ml @ 0 mls/hr Q0M IV 10/14/24 10:45 Amino Acids 0 ml @ 0 mls/hr PER PHARMACY IV 10/15/24 18:45 Diagnostic Test (Pha) 1 strip Q6HR 10/16/24 12:00 10/19/24 17:51 1 STRIP Insulin Human Regular FOLLOW SLIDING SCALE Q6HR SC 10/16/24 12:00 Dextrose 50 ml UD IV 10/16/24 09:30 Amino Acids/ Electrolytes/ Dextrose 1,000 ml @ 41 mls/hr DAILY@2200 IV 10/16/24 22:00 10/18/24 21:48 41 MLS/HR Fentanyl Citrate 250 ml @ 2.5 mls/hr Q24H IV 10/16/24 13:00 10/17/24 22:26 10 MLS/HR Polyethylene Glycol 17 gm DAILYPRN PRN GT 10/17/24 16:45 10/19/24 05:54 17 GM Doxycycline Monohydrate 100 mg Q12HR NG 10/18/24 10:00 10/19/24 09:22 100 MG Warfarin Sodium 2 mg DAILY@17 GT 10/19/24 17:00 10/19/24 17:50 2 MG Albumin Human 100 ml @ 100 mls/hr Q8H IV 10/19/24 12:30 10/20/24 05:29 10/19/24 13:29 100 MLS/HR Piperacillin Sod/ Tazobactam Sod 100 ml @ 25 mls/hr Q8HR IV 10/19/24 14:00 10/19/24 14:18 25 MLS/HR Hydrocortisone Sodium Succinate 50 mg Q6HR IV 10/19/24 18:00 10/19/24 17:49 50 MG Vancomycin HCl 0 ml @ 0 mls/hr UD IV 10/19/24 14:00 Vasopressin 20 units/Sodium Chloride 100 ml @ 9 mls/hr Q11H7M IV 10/19/24 15:45 Vancomycin HCl 100 ml @ 100 mls/hr Q12H IV 10/20/24 02:00 objective The patient is well-nourished and well-developed with no distress. The patient is intubated MENTAL STATUS: Subjective CRANIAL NERVES: Pupils are equal, round and reactive.There are corneal reflexes and doll's eyes phenomenon. No signs of facial weakness. There are gagging or coughing reflexes SENSATION: Responses to pain stimuli. MOTOR: Normal tone in the upper and lower extremity. Normal muscle bulk. No fasciculations. No spontaneous movement. REFLEXES: Deep tendon reflexes are symmetrical. No pathological reflexes. CEREBELLAR/COORDINATION: Deferred GAIT/STATION: deferred. laboratory and microbiology Laboratory Tests 10/19/24 21:18 Test 10/19/24 21:18 Range/Units Serum Glucose 113 H 74-106 mg/dL Problem List Cardiopulmonary arrest Status post CPR Metabolic encephalopathy Hypoxic encephalopathy Congestive heart failure Leukocytosis/sepsis Respiratory failure Elevated liver function tests S/P pacemaker insertion on 10/17/2024 Assessment/Plan Monitoring Supportive treatment ICU care Stabilize vitals Respiratory support/vent management Hold off Lipitor (elevated liver function tests), LDL (31) (home medications included Lipitor 40 mg daily) DVT prophylaxis GI prophylaxis Cardiology on case Pulmonology on case Nephrology on case Consult GI Re: Elevated liver function tests Need more history Gradual wean off sedation, and CPAP trial This medical document was created using an electronic medical record system with [employer] dictation system. Although this document has been carefully reviewed, there may still be some phonetic and typographical errors. These areas are purely typographical due to imperfections of the software programs, and do not reflect any compromise in the patient's medical care. Prognosis Guarded Dietary Evaluation Review Comments: 1) TF Jevity 1.2Cal @ 55 ml/hr. x 24hr along with Pro-stat 1 pk daily. Start @ 20ml/hr, increase 10ml/hr Q4H until goal is reached. TF @ goal volume provides 1684 kcal (100% energy needs), 88 gm protein (100% protein needs), 1065 ml free water. 2) Water flush 100ml Q4H if allowed, adjust PRN 3) Advance to cardiac diet as medically feasible 4) Monitor NPO status, lab values, wt trend, I/O Expected Outcomes/Goals: To meet >75% estimated needs within 7 days Lab values to improve Fu 2-3 days Plan discussed with: Other CAROLINE ROBB MD Oct 19, 2024 22:41
--- NOTE | 2024-10-19 23:36 | DVHPN2 ---
Consult Progress Note Date Seen: Oct 19, 2024 Subjective Patient reports: Other (noted to develope fever , mildly hypotensive . remains intubated and resedated OG tube clamped to avoid aspiration . restarted on pressers ) Objective vital signs Vital Sign Date Time Temp Pulse Resp B/P (MAP) Pulse Ox O2 Delivery O2 Flow Rate FiO2 10/19/24 21:57 114/55 10/19/24 21:53 67 28 100 30 10/19/24 19:50 99.7 211.5 10/19/24 18:00 Mechanical Ventilator+ Total Intake and Output 10/18/24 10/18/24 10/19/24 15:00 23:00 07:00 Intake Total 646.364 ml 607.22 ml 956.218 ml Output Total 950 ml 875 ml Balance 646.364 ml -342.78 ml 81.218 ml medications Current Medications Medications Dose Ordered Sig/Liliam Route Start Time Stop Time Status Last Admin Dose Admin Midazolam HCl 50 ml @ 1 mls/hr Q24H IV 10/07/24 04:45 10/19/24 21:57 4 MLS/HR Ondansetron HCl 4 mg Q4HP PRN IV 10/07/24 10:00 Nitroglycerin 0.4 mg Q5MINP PRN SL 10/07/24 10:00 Pantoprazole Sodium 40 mg DAILY IV 10/07/24 10:00 10/19/24 09:22 40 MG Aspirin 81 mg DAILY PO 10/08/24 10:00 10/19/24 09:22 81 MG Mexiletine HCl 150 mg TID GT 10/08/24 22:00 10/19/24 21:56 150 MG Acetaminophen 500 mg Q6HP PRN PO 10/08/24 22:30 10/19/24 03:18 500 MG Enteral Nutritional Formula 1,000 ml 55ML/HR GT 10/09/24 18:45 10/18/24 03:07 1,000 ML Phenylephrine HCl 80 mg/Sodium Chloride 250 ml @ 7.5 mls/hr Q24H IV 10/10/24 09:30 10/19/24 21:57 15 MLS/HR Furosemide 20 mg BIDD IV 10/12/24 18:00 10/19/24 05:53 20 MG Esmolol HCl 250 ml @ 0 mls/hr Q0M IV 10/14/24 10:45 Amino Acids 0 ml @ 0 mls/hr PER PHARMACY IV 10/15/24 18:45 Diagnostic Test (Pha) 1 strip Q6HR 10/16/24 12:00 10/19/24 17:51 1 STRIP Insulin Human Regular FOLLOW SLIDING SCALE Q6HR SC 10/16/24 12:00 Dextrose 50 ml UD IV 10/16/24 09:30 Amino Acids/ Electrolytes/ Dextrose 1,000 ml @ 41 mls/hr DAILY@2200 IV 10/16/24 22:00 10/19/24 22:00 41 MLS/HR Fentanyl Citrate 250 ml @ 2.5 mls/hr Q24H IV 10/16/24 13:00 10/17/24 22:26 10 MLS/HR Polyethylene Glycol 17 gm DAILYPRN PRN GT 10/17/24 16:45 10/19/24 05:54 17 GM Doxycycline Monohydrate 100 mg Q12HR NG 10/18/24 10:00 10/19/24 21:56 100 MG Warfarin Sodium 2 mg DAILY@17 GT 10/19/24 17:00 10/19/24 17:50 2 MG Albumin Human 100 ml @ 100 mls/hr Q8H IV 10/19/24 12:30 10/20/24 05:29 10/19/24 21:55 100 MLS/HR Piperacillin Sod/ Tazobactam Sod 100 ml @ 25 mls/hr Q8HR IV 10/19/24 14:00 10/19/24 21:56 25 MLS/HR Hydrocortisone Sodium Succinate 50 mg Q6HR IV 10/19/24 18:00 10/19/24 17:49 50 MG Vancomycin HCl 0 ml @ 0 mls/hr UD IV 10/19/24 14:00 Vasopressin 20 units/Sodium Chloride 100 ml @ 9 mls/hr Q11H7M IV 10/19/24 15:45 Vancomycin HCl 100 ml @ 100 mls/hr Q12H IV 10/20/24 02:00 laboratory and microbiology Laboratory Tests 10/19/24 21:18 Test 10/19/24 21:18 Range/Units Serum Glucose 113 H 74-106 mg/dL Problem List/Assessment/Plan Problems(with codes): (1) Shock liver (2) Pneumonia (3) Sepsis, unspecified organism (4) Ventricular fibrillation Problem List/Assessment/Plan Problems(with codes): (1) Pneumonia (2) Cardiac arrest (3) Ventricular fibrillation (4) Sepsis, unspecified organism Plan/Recommendation ASSESSMENT AND PLAN: ID Problem List: \-- Status post cardiac arrest with return of spontaneous circulation (ROSC) \-- Ventricular tachycardia and atrial fibrillation \-- Recent aspiration event/pneumonitis versus pneumonia, Enterobacter cloacae isolated \-- Severe reduced ejection fraction (EF 1520%), dilated LV, severe global dysfunction \-- History of CABG with stents, mitral ring implant \-- Hypothermia, hypoxia requiring intubation and sedation \-- Sepsis (suspected/treated), leukocytosis (now resolved) \-- Ongoing vasopressor requirement (phenylephrine) \-- ICD placement planned Assessment Ms. Smith is a 54-year-old female with a past medical history notable for prior coronary artery bypass grafting (CABG) with stenting, recent mitral ring implant, and significant cardiac disease. She presented on 10/07 with an acute witnessed cardiac arrest during dinner; initial rhythm was ventricular tachycardia/atrial fibrillation. ROSC was achieved on EMS arrival after a single shock and Narcan administration. She was found to be hypothermic and hypotensive and required intubation for airway protection due to altered mental status. During her ICU course, she had recurrent ventricular tachycardia and atrial fibrillation, managed with antiarrhythmic drip (amiodarone), vasopressors (initially Levophed, currently phenylephrine), and heparin drip. Echocardiogram and left heart catheterization confirmed poor left ventricular function (EF 1520%, dilated LV) and patent bypass grafts. The patient also experienced aspiration pneumonitis, with Enterobacter cloacae isolated from sputum (sensitive to cefepime); empiric antibiotics were escalated to ertapenem following transient fever and leukocytosis, which have since resolved. Currently, she remains intubated on pressure support (tolerating CPAP trials), minimally following commands. She is on phenylephrine, Lasix drip, and heparin drip, with ongoing close monitoring. Cardiology in agreement to proceed with ICD placement given recurrent arrhythmias. Infectious disease clearance provided for this, as there is no evidence of persistent infection or sepsis (blood cultures negative, leukocytosis resolved). 10/12: awaiting AICD placement 10/13: sputum culture was done for further evaluation of persistent pneumonia , no thick secretions 10/14:Dr. bernardo recommends stopping aminopterin drip and LFTs appear to be improving with this change 10/15:lfts are normalizing , sputum shows krystal colonization 10/16: holding excavation til placement 10/17:s/p AICD placement and tolerated procedure . lfts are normal and off amioterine drip 10/18: sp Status post successful implantation of dual chamber AICD, DX Biotronik, Device was programmed into VDI lower rate of 40 bpm 10/19: unclear if patient aspirated vs developed new infection Plan: - recommend blood culture , sputum and urine culture - continue antibiotics \-- Maintain phenylephrine drip; titrate as needed to maintain MAP. \-- Monitor neurological status; currently, patient is intermittently following commands and is becoming more alert \-- No evidence of active sepsis or bacteremia at this time. \-- Continue supportive ICU care and multidisciplinary management. Authorized and Performed by: soham gramajo md Total critical care time: Approximately 36 minutes Due to a high probability of clinically significant, life threatening deterioration, the patient required my highest level of preparedness to intervene emergently and I personally spent this critical care time directly and personally managing the patient. This critical care time included obtaining a history; examining the patient; pulse oximetry; ordering and review of studies; arranging urgent treatment with development of a management plan; evaluation of patient's response to treatment; frequent reassessment; and, discussions with other providers. This critical care time was performed to assess and manage the high probability of imminent, life-threatening deterioration that could result in multi-organ failure. It was exclusive of separately billable procedures and treating other patients and teaching time. Isolation Precautions: Standard Plan discussed with: Other Dietary Evaluation Review Comments: 1) TF Jevity 1.2Cal @ 55 ml/hr. x 24hr along with Pro-stat 1 pk daily. Start @ 20ml/hr, increase 10ml/hr Q4H until goal is reached. TF @ goal volume provides 1684 kcal (100% energy needs), 88 gm protein (100% protein needs), 1065 ml free water. 2) Water flush 100ml Q4H if allowed, adjust PRN 3) Advance to cardiac diet as medically feasible 4) Monitor NPO status, lab values, wt trend, I/O Expected Outcomes/Goals: To meet >75% estimated needs within 7 days Lab values to improve Fu 2-3 days SOHAM GRAMAJO MD Oct 19, 2024 23:36
--- NOTE | 2024-10-19 23:43 | DVHPN2 ---
Progress Note - Dictate Date Seen: Oct 19, 2024 Has the PT tested + for MRSA If YES, has PT been informed?: No Medical Necessity Reason Pt with a Central, PICC or Fol: Yes The following are medically ne: Cutler Catheter Reason for cutler catheter: Strict I&O Subjective Patient seen and examined at bedside. Intubated on mechanical ventilator. Overnight events reviewed. vital signs Vital Sign Date Time Temp Pulse Resp B/P (MAP) Pulse Ox O2 Delivery O2 Flow Rate FiO2 10/19/24 21:57 114/55 10/19/24 21:53 67 28 100 30 10/19/24 19:50 99.7 211.5 10/19/24 18:00 Mechanical Ventilator+ Total Intake and Output 10/18/24 10/18/24 10/19/24 15:00 23:00 07:00 Intake Total 646.364 ml 607.22 ml 956.218 ml Output Total 950 ml 875 ml Balance 646.364 ml -342.78 ml 81.218 ml medications Current Medications Medications Dose Ordered Sig/Liliam Route Start Time Stop Time Status Last Admin Dose Admin Midazolam HCl 50 ml @ 1 mls/hr Q24H IV 10/07/24 04:45 10/19/24 21:57 4 MLS/HR Ondansetron HCl 4 mg Q4HP PRN IV 10/07/24 10:00 Nitroglycerin 0.4 mg Q5MINP PRN SL 10/07/24 10:00 Pantoprazole Sodium 40 mg DAILY IV 10/07/24 10:00 10/19/24 09:22 40 MG Aspirin 81 mg DAILY PO 10/08/24 10:00 10/19/24 09:22 81 MG Mexiletine HCl 150 mg TID GT 10/08/24 22:00 10/19/24 21:56 150 MG Acetaminophen 500 mg Q6HP PRN PO 10/08/24 22:30 10/19/24 03:18 500 MG Enteral Nutritional Formula 1,000 ml 55ML/HR GT 10/09/24 18:45 10/18/24 03:07 1,000 ML Phenylephrine HCl 80 mg/Sodium Chloride 250 ml @ 7.5 mls/hr Q24H IV 10/10/24 09:30 10/19/24 21:57 15 MLS/HR Furosemide 20 mg BIDD IV 10/12/24 18:00 8/22/25 05:53 20 MG Esmolol HCl 250 ml @ 0 mls/hr Q0M IV 10/14/24 10:45 Amino Acids 0 ml @ 0 mls/hr PER PHARMACY IV 10/15/24 18:45 Diagnostic Test (Pha) 1 strip Q6HR 10/16/24 12:00 10/19/24 17:51 1 STRIP Insulin Human Regular FOLLOW SLIDING SCALE Q6HR SC 10/16/24 12:00 Dextrose 50 ml UD IV 10/16/24 09:30 Amino Acids/ Electrolytes/ Dextrose 1,000 ml @ 41 mls/hr DAILY@2200 IV 10/16/24 22:00 10/19/24 22:00 41 MLS/HR Fentanyl Citrate 250 ml @ 2.5 mls/hr Q24H IV 10/16/24 13:00 10/17/24 22:26 10 MLS/HR Polyethylene Glycol 17 gm DAILYPRN PRN GT 10/17/24 16:45 10/19/24 05:54 17 GM Doxycycline Monohydrate 100 mg Q12HR NG 10/18/24 10:00 10/19/24 21:56 100 MG Warfarin Sodium 2 mg DAILY@17 GT 10/19/24 17:00 10/19/24 17:50 2 MG Albumin Human 100 ml @ 100 mls/hr Q8H IV 10/19/24 12:30 10/20/24 05:29 10/19/24 21:55 100 MLS/HR Piperacillin Sod/ Tazobactam Sod 100 ml @ 25 mls/hr Q8HR IV 10/19/24 14:00 10/19/24 21:56 25 MLS/HR Hydrocortisone Sodium Succinate 50 mg Q6HR IV 10/19/24 18:00 10/19/24 17:49 50 MG Vancomycin HCl 0 ml @ 0 mls/hr UD IV 10/19/24 14:00 Vasopressin 20 units/Sodium Chloride 100 ml @ 9 mls/hr Q11H7M IV 10/19/24 15:45 Vancomycin HCl 100 ml @ 100 mls/hr Q12H IV 10/20/24 02:00 objective Gen.: Patient lying in bed in medical ICU. Intubated on mechanical ventilator. Head: Normocephalic, atraumatic. Eyes: PERRLA. Ears: Normal external anatomy. Throat: Endotracheal tube and orogastric tube in place. Neck: Supple, trachea midline. Chest: Transmitted breath sounds bilaterally. Decreased air entry bilaterally. No wheezing. Bibasilar crackles. Cardiovascular: Positive S1, positive S2. Regular rate and rhythm. Abdomen: Positive bowel sounds in all 4 quadrants. Soft, nontender, nondistended. : Cutler in place. Normal external genitalia. Rectal: Deferred. Skin: Warm, dry. Intact. Extremities: 2+ radial pulses bilaterally. No lower extremity edema. Neuro: Off sedation. laboratory and microbiology Laboratory Tests 10/19/24 21:18 Test 10/19/24 21:18 Range/Units Serum Glucose 113 H 74-106 mg/dL Assessment/Plan Impression: Acute hypoxic respiratory failure On mechanical ventilator s/p cardiac arrest Ventricular tachycardia CPR <5 min Elevated troponin Atelectasis Events: Pt seen and examined in ICU On mechanical ventilation AC mode with RR 18, VT 450, PEEP 5, FiO2 30% ABG reviewed, notable for alkalemia CXR demonstrates pulmonary congestion. Devices in place. Remains off sedation On pressors for hemodynamic support On Stone-Synephrine 180 mcg/min; started Levophed 2 mcg/min Titrate to keep mean arterial pressure greater than 65 mmHg. Start hydrocortisone 50 mg q.6 hours for stress dose. Give vancomycin 1 gram, then continue vancomycin per pharmacy dosing. Pt with hypotension - give 250 mL NS bolus. Obtain STAT ECG given tachycardia. Cardiology recommendations appreciated Continue diuresis as tolerated Monitor renal function Monitor electrolytes. Supplement as necessary. Mag, K supplementation Labs and imaging reviewed. Plan: s/p intubation on mechanical ventilator. Titrate FIO2 to keep O2 saturation above 90%. VAP bundle. Daily ABG and CXR while intubated Sedate for ventilator synchrony Pressors as necessary for hemodynamic support. Titrate to keep MAP greater than 65 mmHg. SBT/CORINE. Pressure support /5, extubate when ready OK to use Precedex Patient is s/p pacemaker Follow up Cardiology recs Continue antibiotics. F/u cultures. Monitor labs Monitor renal function Monitor electrolytes. Supplement as necessary. Monitor ins and outs. F/u Cardiology recs. DVT prophylaxis. Prognosis: Poor given patient's multiple co-morbidities. Condition: Critical Rest of plan per hospitalist and other consultants. A total of 35 minutes of critical care time was spent reviewing the patient record, examining the patient, making a diagnostic and therapeutic plan, discussing this plan with the medical personnel, following up on diagnostic studies and following the patient for clinical stability excluding any and all procedures. At least 50% of this time was spent in direct, [id number] contact. Thank you, YURI Gomez, for allowing me to participate in this patient's care. Further recommendations will depend on the patient's clinical course. Please do not hesitate to contact me if you have any questions or concerns. This medical document was created using an electronic medical record system with [employer] dictation system. Although these documentations are being carefully reviewed, there may still be some phonetic and typographical changes. The errors are purely typographical, due to imperfection on the software program, and do not reflect any compromise in the patient's medical care. Dietary Evaluation Review Comments: 1) TF Jevity 1.2Cal @ 55 ml/hr. x 24hr along with Pro-stat 1 pk daily. Start @ 20ml/hr, increase 10ml/hr Q4H until goal is reached. TF @ goal volume provides 1684 kcal (100% energy needs), 88 gm protein (100% protein needs), 1065 ml free water. 2) Water flush 100ml Q4H if allowed, adjust PRN 3) Advance to cardiac diet as medically feasible 4) Monitor NPO status, lab values, wt trend, I/O Expected Outcomes/Goals: To meet >75% estimated needs within 7 days Lab values to improve Fu 2-3 days Plan discussed with: Other (CEE Wayne) Critical Care Time(min): 35 KENNY FROST MD Oct 19, 2024 23:43
[2024-10-20] VITALS (108 sets, daily range): BP systolic 84–132; BP diastolic 43–66; PULSE 65–78; RESP 9–28; TEMP 96.3–99.7; O2SAT 98–100
[2024-10-20] MEDS: VANCOMYCIN 750MG KIT 100 ML IV SCH (02:00)
[2024-10-20 03:44] LABS: Hematocrit 25.3 % (36.0-46.0); Hemoglobin 8.1 g/dL (12.2-16.2); Mean Corpuscular Hemoglobin 30.8 pg (28.0-32.0); Mean Corpuscular Volume 96.3 fL (80.0-100.0); Nucleated Red Blood Cells % 0.2 %
[2024-10-20 03:53] LABS: INR 1.26 (0.9-1.15); Prothrombin Time 13.1 sec (9.3-11.8)
[2024-10-20 03:55] LABS: Alanine Aminotransferase 13 U/L (7-40); Alkaline Phosphatase 110 U/L (46-116); Anion Gap 12 (5-15); BUN/Creatinine Ratio 19.2 (10.0-20.0); Blood Urea Nitrogen 14 mg/dL (9-23); Chloride 105 mmol/L (98-107); Magnesium 2.2 mg/dL (1.6-2.6); Potassium 4.1 mmol/L (3.5-5.1); Total Protein 6.5 g/dL (5.7-8.2)
[2024-10-20 03:56] LABS: Albumin 3.5 g/dL (3.2-4.8); Bilirubin, Total 0.8 mg/dL (0.2-1.0); Calcium 8.2 mg/dL (8.7-10.4); Carbon Dioxide 17 mmol/L (20-31); Glucose 155 mg/dL (74-106); Sodium 134 mmol/L (136-145)
--- NOTE | 2024-10-20 05:50 | DVH ---
CHEST RADIOGRAPH Indication: intubated Technique: 1 view Comparison: XY CHEST XRAY 1 VIEW on DOS: 10/19/24, XY CHEST PORTABLE on DOS: 10/18/24, XY CHEST PORTABL E on DOS: 10/17/24, XY CHEST PORTABLE on DOS: 10/15/24, XY CHEST PORTABLE on DOS: 10/14/24 FINDINGS: Lines and Tubes: Unchanged endotracheal tube, enteric tube, right IJ catheter, and implanted cardiac device. External defibrillator pads. Lungs: Worsening of mixed interstitial and alveolar opacities in the right lower lung. The left lower lung is obscured with similar appearing airspace disease. Pleura: No effusion or pneumothorax. Cardiomediastinal contours: Unchanged. Other: Unchanged. IMPRESSION: 1. Worsening mixed opacities in the right lower lung. No other significant change from the previous study. Stable support devices.
[2024-10-20 07:09] LABS: Base Excess -5.3 mmol/L (-2.0-3.0)
--- NOTE | 2024-10-20 09:26 | DVHPN2 ---
Progress Note - Dictate Date Seen: Oct 20, 2024 Has the PT tested + for MRSA If YES, has PT been informed?: No Medical Necessity Reason Pt with a Central, PICC or Fol: Yes The following are medically ne: Cutler Catheter Reason for cutler catheter: Strict I&O vital signs Vital Sign Date Time Temp Pulse Resp B/P (MAP) Pulse Ox O2 Delivery O2 Flow Rate FiO2 10/20/24 09:12 72 27 89/45 (60) 100 30 10/20/24 07:15 96.3 205.3 10/20/24 06:00 Mechanical Ventilator+ Total Intake and Output 10/19/24 10/19/24 10/20/24 15:00 23:00 07:00 Intake Total 711.021 ml 945.554 ml 899.252 ml Output Total 2650 ml 1126 ml Balance 711.021 ml -1704.446 ml -226.748 ml medications Current Medications Medications Dose Ordered Sig/Liliam Route Start Time Stop Time Status Last Admin Dose Admin Midazolam HCl 50 ml @ 1 mls/hr Q24H IV 10/07/24 04:45 10/20/24 03:54 4 MLS/HR Ondansetron HCl 4 mg Q4HP PRN IV 10/07/24 10:00 Nitroglycerin 0.4 mg Q5MINP PRN SL 10/07/24 10:00 Pantoprazole Sodium 40 mg DAILY IV 10/07/24 10:00 10/19/24 09:22 40 MG Aspirin 81 mg DAILY PO 10/08/24 10:00 10/19/24 09:22 81 MG Mexiletine HCl 150 mg TID GT 10/08/24 22:00 10/20/24 05:54 150 MG Acetaminophen 500 mg Q6HP PRN PO 10/08/24 22:30 10/19/24 03:18 500 MG Enteral Nutritional Formula 1,000 ml 55ML/HR GT 10/09/24 18:45 10/18/24 03:07 1,000 ML Phenylephrine HCl 80 mg/Sodium Chloride 250 ml @ 7.5 mls/hr Q24H IV 10/10/24 09:30 10/19/24 21:57 15 MLS/HR Furosemide 20 mg BIDD IV 10/12/24 18:00 10/20/24 05:55 20 MG Esmolol HCl 250 ml @ 0 mls/hr Q0M IV 10/14/24 10:45 Amino Acids 0 ml @ 0 mls/hr PER PHARMACY IV 10/15/24 18:45 Diagnostic Test (Pha) 1 strip Q6HR 10/16/24 12:00 10/20/24 05:55 1 STRIP Insulin Human Regular FOLLOW SLIDING SCALE Q6HR SC 10/16/24 12:00 10/20/24 05:58 2 UNITS Dextrose 50 ml UD IV 10/16/24 09:30 Amino Acids/ Electrolytes/ Dextrose 1,000 ml @ 41 mls/hr DAILY@2200 IV 10/16/24 22:00 10/19/24 22:00 41 MLS/HR Fentanyl Citrate 250 ml @ 2.5 mls/hr Q24H IV 10/16/24 13:00 10/20/24 03:56 12.5 MLS/HR Polyethylene Glycol 17 gm DAILYPRN PRN GT 10/17/24 16:45 10/19/24 05:54 17 GM Doxycycline Monohydrate 100 mg Q12HR NG 10/18/24 10:00 10/19/24 21:56 100 MG Warfarin Sodium 2 mg DAILY@17 GT 10/19/24 17:00 10/19/24 17:50 2 MG Piperacillin Sod/ Tazobactam Sod 100 ml @ 25 mls/hr Q8HR IV 10/19/24 14:00 10/20/24 05:55 25 MLS/HR Hydrocortisone Sodium Succinate 50 mg Q6HR IV 10/19/24 18:00 10/20/24 05:54 50 MG Vancomycin HCl 0 ml @ 0 mls/hr UD IV 10/19/24 14:00 Vasopressin 20 units/Sodium Chloride 100 ml @ 9 mls/hr Q11H7M IV 10/19/24 15:45 Vancomycin HCl 100 ml @ 100 mls/hr Q12H IV 10/20/24 02:00 10/20/24 02:00 100 MLS/HR laboratory and microbiology Laboratory Tests 10/20/24 03:13 Test 10/20/24 03:13 Range/Units Serum Glucose 155 H 74-106 mg/dL Assessment/Plan Patient is a 54-year-old female who was brought to the hospital for witnessed syncope. She is intubated and is being managed in ICU. Information was obtained by reviewing the chart and communicating with patient's son (over the phone). Family recognized witnessed syncope and started CPR and called EMS. Reportedly, EMS found the patient in ventricular fibrillation and shocked the patient and brought the patient to the hospital. Patient was intubated in emergency room and transferred to ICU. Patient was on amiodarone drip. Later the patient had ventricular tachycardia (Systane). High sensitive troponin had been minimally/flatly elevated. Presentation was not in favor of acute coronary syndrome. Cardiology is involved for cardiac aspects of care. Intubated. Noncommunicative. No JVD. Mucosa pale. No carotid bruit. Scattered rhonchi in the lungs is heard. Cardiac: Regular, no thrill. Systolic murmur 2/6 in apex is heard. Abdomen is soft. No edema in extremities. Past medical history as per son: Congenital heart disease, status post bypass WBC: 14.5 - 11.9 - 18.8 - 20.0 - 21.2 - 14.3 - 10.3 - 8.9 - 9.2 - 11.1 - 12.1 - 10.8 - 12.0 - 9.9 - 15.4 - 14.8 - 12.1 Hemoglobin: 10.1 - 9.6 - 9.2 - 8.8 - 8.7 - 8.0 - 8.3 - 8.5 - 7.8 - 10.2 - 10.7 - 9.9 - 9.7 - 9.3 - 9.3 - 8.6 - 8.1 Creatinine: 0.95 - 0.93 - 0.87 - 0.83 - 0.83 - 0.76 - 0.68 - 0.72 - 0.79 - 0.76 - 0.80 - 0.84 - 0.61 - 0.65 - 0.74 - 0.64 - 0.73 Potassium: 3.4 - 4.0 - 4.6 - 3.5 - 3.3 - 4.1 - 3.7 - 3.2 - 3.7 - 4.0 - 3.2 - 3.4 - 3.9 - 4.2 - 3.3 - 3.8 - 3.6 - 3.4 - 4.2 - 3.8 - 4.5 - 4.1 Magnesium: 2.0 - 1.6 - 2.0 - 3.0 - 1.5 - 1.9 - 2.1 - 1.8 - 2.0 - 1.9 - 1.9 - 2.6 - 2.0 - 1.8 - 1.6 - 2.0 - 2.2 Troponin (high sensitive): 141 - 138 - 117 BNP: 457.16 AST/ALT: 32/11 - 19/13 - 538/168 - 293/152 - 131/130 - 78/94 - 68/74 - 48/57 - 27/38 - 15/23 - 20/18 - 23/17 - 29/16 - 27/13 Digoxin level: 2.83 - 1.25 - 0.98 UDS: non-revealing Chest x-ray revealed: Lines and Tubes: Endotracheal tube tip projects approximately 1.4 cm above the level of the tyler. Enteric catheter courses below the lateral of the diaphragm and terminates beyond the inferior margin of the image. Right internal jugular central venous catheter terminates within the distal superior vena cava. Lungs: Moderate diffuse increased prominence of the pulmonary vasculature without evidence of focal consolidation. Pleura: No effusion. No pneumothorax. Cardiomediastinal contours: Cardiomegaly. Bones: Unremarkable IMPRESSION: 1. Cardiomegaly and diffuse increased prominence of the pulmonary vasculature. 2. Lines and tubes as above. Repeat chest x-ray revealed: IMPRESSION: 1. Endotracheal tube tip 1.6 cm above the tyler; consider 2 cm retraction 2. Mild pulmonary vascular congestion. Moderate cardiomegaly. Repeat chest xry revealed: IMPRESSION: Endotracheal tube tip 1.6 cm above the tyler; consider 2 cm retraction Mild pulmonary vascular congestion. Moderate cardiomegaly. Repeat chest xry revealed: IMPRESSION: 1. Stable cardiomegaly, small left pleural effusion and mild diffuse increased prominence of the pulmonary vasculature. 2. Repositioned endotracheal tube as above. Remaining lines and tubes unchanged. Repeat chest xry revealed: IMPRESSION: 1. Cardiomegaly, stable diffuse increased prominence of the pulmonary vasculature and small bilateral pleural effusions. 2. Slight interval advancement of endotracheal tube as above. Remaining lines and tubes unchanged. Repeat chest xry revealed: IMPRESSION: 1. Slight interval decrease in diffuse increased prominence of the pulmonary vasculature. 2. Stable cardiomegaly and small left pleural effusion. 3. Lines and tubes unchanged. Repeat chest xry revealed: IMPRESSION: 1. Cardiomegaly and small left pleural effusion. 2. Lines and tubes unchanged. Repeat chest xry revealed: IMPRESSION: Stable lines and tubes. Similar lung aeration. Repeat chest xry revealed: IMPRESSION: Cardiomegaly and small left pleural effusion. Lines and tubes unchanged. Repeat chest xry revealed: IMPRESSION: Placement of a cardiac pacer, no pneumothorax is seen. Stable lines and tubes. Repeat chest xry revealed: IMPRESSION: 1. Worsening mixed opacities in the right lower lung. No other significant change from the previous study. Stable support devices. KUB revealed: IMPRESSION: Nonobstructive bowel gas pattern. Nasogastric tube tip in the stomach. Large stool burden. Left upper ext arterial duplex: IMPRESSION: No hemodynamically significant stenosis based on peak systolic velocity criteria. Left lower ext arterial duplex: IMPRESSION: There is no evidence for peripheral vascular insufficiency in the left lower extremity. No significant focal stenosis is identified. Liver Ultrasound revealed: Hepatic steatosis. Hepatomegaly. Cholelithiasis. CT of the head revealed: IMPRESSION: No acute intracranial abnormality. Repeat CT of head revealed: IMPRESSION: No acute intracranial abnormality. Echocardiogram reported: lvef 15-20% dilated LV severe global dysfunction mild RV dysfunction biatrial enlargement mild moderate MAC, moderate mitral regurg mild to moderate aortic regug (images of echo reviewed and questioned presence of mitral ring and also some component (moderate of Mitral stenosis) EKG revealed sinus rhythm Telemetry revealed occasions of atrial fibrillation. There was occasional sustained ventricular tachycardia. EMS tele monitor revealed ventricular fibrillation for which the patient was shocked. Has remained sinus rhythm. Later with A-fib with MVR LHC revealed: Patent RICHMOND to LAD; Patent SVG to obtuse marginal; LVEF of 20% with increased EDP; Proximal disease in LAD/LCX RICHIE was performed: Consistent with severely reduced LVEF. Consistent with previously implanted Mitral ring, Up to moderate Mitral stenosis/Mitral Regurgitation and also Moderate Aortic insufficiency. Patient is a 54-year-old female who presented with witnessed syncope. She was found to have ventricular fibrillation for which was shocked. Later had repeated episode of sustained ventricular tachycardia. Patient has been kept in ICU. Does have baseline history of coronary artery disease for which has had bypass surgery. Left heart catheterization was performed which revealed patent RICHMOND and patent SVG. ACS is not considered at this point. It is of note that the patient's echocardiogram reveals significantly use systolic function. Valvular heart disease is considered. Findings are in favor of previously implanted mitral ring. By reviewing the echo images, component of up to moderate mitral stenosis could not be ruled out. LHC was performed that ruled out any active specific ischemia as an etiology for presentation. Is off Amiodarone for abnormal LFT. Being followed by Nephrology / Pulmonary / Neurology / GI ID. Tele has remained sinus rhythm. Had episode of a-fib with RVR. Was loaded with Digoxin. Dig level was performed at wrong timing (only 5 hours after the last Dig given). Dig toxicity is not considered. Patient is back to normal sinus rhythm. Has good kidney function. Repeat Dig level is acceptable level. s/p ICD implantation by EP Syncope V-fib s/p shock Sustained V-tach Paroxysmal A-fib VHD, s/p Mitral ring Systolic heart failure Abnormal LFT, resolved s/p ICD (Biotronik) implantation by EP (Dr Armstrong) Cardiac suggestion for management: Manage in ICU Follow up electrolytes and kidney function test and correct abnormalities Full anticoagulation (a-fib with high CHADS-Vasc score). s/p recent ICD implantation and as per EP only on low dose coumadin. After a week to restart full anticoagulation Off Amio drip (worsened LFT) (personally discussed with EP: Dr Armstrong who advised to stop / not to restart Amiodarone) On Mexiletine If need for pressure support: use Phenyl Ephrine / vasopressin, keep MAP above 65 May consider Esmolol for PVC/Vtach s/p ICD (Biotronik) implantation by EP A/C: On Coumadin (as per EP verbal suggestion): check INR daily Pulmonary Follow up Provide previous medical records from reaching out to previous hospitals in [facility]... Further evaluation and management depends on the above and clinical course. A total of 75 minutes was spent reviewing the patient record, examining the patient, making a diagnostic and therapeutic plan, discussing this plan with medical personnel, following up on diagnostic studies and following the patient for clinical stability excluding any and all procedures. At least 50% of this time was spent in direct, [id number] contact. Thank you for allowing me to participate in this patient's care. Further recommendations will depend on patient's clinical course. Please do not hesitate to contact me if you have any questions or concerns. This medical document was created using electronic medical record system with MModal computerized dictation system. Although this document has been carefully reviewed, there may still be some phonetic and typographical errors. These areas are purely typographical due to the imperfection of the software programs, and do not reflect any compromise in the patient's medical care. Dietary Evaluation Review Comments: 1) TF Jevity 1.2Cal @ 55 ml/hr. x 24hr along with Pro-stat 1 pk daily. Start @ 20ml/hr, increase 10ml/hr Q4H until goal is reached. TF @ goal volume provides 1684 kcal (100% energy needs), 88 gm protein (100% protein needs), 1065 ml free water. 2) Water flush 100ml Q4H if allowed, adjust PRN 3) Advance to cardiac diet as medically feasible 4) Monitor NPO status, lab values, wt trend, I/O Expected Outcomes/Goals: To meet >75% estimated needs within 7 days Lab values to improve Fu 2-3 days Plan discussed with: Other (nurse) CORDELL VERA MD Oct 20, 2024 09:26
--- NOTE | 2024-10-20 14:49 | DVHPN2 ---
Progress Note - Dictate Date Seen: Oct 20, 2024 Has the PT tested + for MRSA If YES, has PT been informed?: No Medical Necessity Reason Pt with a Central, PICC or Fol: Yes The following are medically ne: Cutler Catheter Reason for cutler catheter: Strict I&O vital signs Vital Sign Date Time Temp Pulse Resp B/P (MAP) Pulse Ox O2 Delivery O2 Flow Rate FiO2 10/20/24 13:25 69 18 113/56 (75) 100 30 10/20/24 12:30 98.8 209.8 10/20/24 12:00 Mechanical Ventilator+ Total Intake and Output 10/19/24 10/19/24 10/20/24 15:00 23:00 07:00 Intake Total 711.021 ml 945.554 ml 956.752 ml Output Total 2650 ml 1126 ml Balance 711.021 ml -1704.446 ml -169.248 ml medications Current Medications Medications Dose Ordered Sig/Liliam Route Start Time Stop Time Status Last Admin Dose Admin Midazolam HCl 50 ml @ 1 mls/hr Q24H IV 10/07/24 04:45 10/20/24 03:54 4 MLS/HR Ondansetron HCl 4 mg Q4HP PRN IV 10/07/24 10:00 Nitroglycerin 0.4 mg Q5MINP PRN SL 10/07/24 10:00 Pantoprazole Sodium 40 mg DAILY IV 10/07/24 10:00 10/20/24 09:54 40 MG Aspirin 81 mg DAILY PO 10/08/24 10:00 10/20/24 10:00 81 MG Mexiletine HCl 150 mg TID GT 10/08/24 22:00 10/20/24 13:29 150 MG Acetaminophen 500 mg Q6HP PRN PO 10/08/24 22:30 10/19/24 03:18 500 MG Enteral Nutritional Formula 1,000 ml 55ML/HR GT 10/09/24 18:45 10/18/24 03:07 1,000 ML Phenylephrine HCl 80 mg/Sodium Chloride 250 ml @ 7.5 mls/hr Q24H IV 10/10/24 09:30 10/19/24 21:57 15 MLS/HR Furosemide 20 mg BIDD IV 10/12/24 18:00 10/20/24 05:55 20 MG Esmolol HCl 250 ml @ 0 mls/hr Q0M IV 10/14/24 10:45 Amino Acids 0 ml @ 0 mls/hr PER PHARMACY IV 10/15/24 18:45 Diagnostic Test (Pha) 1 strip Q6HR 10/16/24 12:00 10/20/24 11:54 1 STRIP Insulin Human Regular FOLLOW SLIDING SCALE Q6HR SC 10/16/24 12:00 10/20/24 11:53 2 UNITS Dextrose 50 ml UD IV 10/16/24 09:30 Amino Acids/ Electrolytes/ Dextrose 1,000 ml @ 41 mls/hr DAILY@2200 IV 10/16/24 22:00 10/19/24 22:00 41 MLS/HR Fentanyl Citrate 250 ml @ 2.5 mls/hr Q24H IV 10/16/24 13:00 10/20/24 03:56 12.5 MLS/HR Polyethylene Glycol 17 gm DAILYPRN PRN GT 10/17/24 16:45 10/19/24 05:54 17 GM Doxycycline Monohydrate 100 mg Q12HR NG 10/18/24 10:00 10/20/24 09:54 100 MG Warfarin Sodium 2 mg DAILY@17 GT 10/19/24 17:00 10/19/24 17:50 2 MG Piperacillin Sod/ Tazobactam Sod 100 ml @ 25 mls/hr Q8HR IV 10/19/24 14:00 10/20/24 13:30 25 MLS/HR Hydrocortisone Sodium Succinate 50 mg Q6HR IV 10/19/24 18:00 10/20/24 11:55 50 MG Vancomycin HCl 0 ml @ 0 mls/hr UD IV 10/19/24 14:00 Vasopressin 20 units/Sodium Chloride 100 ml @ 9 mls/hr Q11H7M IV 10/19/24 15:45 Vancomycin HCl 100 ml @ 100 mls/hr Q12H IV 10/20/24 02:00 10/20/24 13:29 100 MLS/HR objective General Appearance: no distress HEENT: EOMI, PERRLA, normal external inspect of ears, no icterus, no nasal drainage Neck: no carotid bruit, no jugular venous distention (JVD), no lymphadenopathy Chest: normal thorax Respiratory: Intubated, clear to auscultation, normal air movement Cardiovascular: regular rate and rhythm, no diastolic murmur, no jugular venous distention (JVD), no rub, no systolic murmur Abdominal: soft, no hepatomegaly, no mass, no splenomegaly, no tenderness Genitourinary: grossly normal external Musculoskeletal: no joint tenderness, no swelling Extremities: normal pulses, no calf tenderness, no clubbing, no cyanosis, no edema Skin: no bruising, no jaundice, no rash Neurological: No focal deficit laboratory and microbiology Laboratory Tests 10/20/24 03:13 Test 10/20/24 03:13 Range/Units Serum Glucose 155 H 74-106 mg/dL Problem List Cardiac Arrest with Ventricular Fibrillation Assessment: Patient experienced cardiac arrest with ventricular fibrillation on 10/07/24, witnessed by family members who initiated CPR. EMS found the patient in ventricular fibrillation and administered shock therapy. Rhythm strip analysis confirmed ventricular fibrillation. Patient required intubation and sedation upon ED arrival. Currently admitted to ICU for close observation. Cardiology has been consulted and plans for AICD placement, likely on Tuesday. Infectious disease clearance has been obtained for the AICD procedure, addressing initial concerns of leukocytosis which is now improving. Status post-cardiac arrest. Plan: - Continue ICU monitoring - Proceed with AICD placement as planned (likely Tuesday), cleared by infectious disease. - Maintain intubation and sedation until AICD placement - Continue Heparin drip for paroxysmal atrial fibrillation - Continue Mexitil - DC amiodarone due to transaminitis - added esmolol drip per Cardiology for AFib and added push doses of digoxin Coronary Artery Disease Assessment: Patient with history of 2-vessel CABG (Coronary Artery Bypass Grafting). Surgical intervention previously performed to address significant coronary artery stenosis. Plan: - Continue medical management - Follow up with cardiology for ongoing coronary artery disease management Acute and Chronic Systolic Heart Failure Assessment: Patient has acute and chronic systolic heart failure with severely reduced left ventricular function. Ejection fraction is estimated at 15-20%. RICHIE findings are consistent with severely reduced left ventricular ejection fraction, previously implanted mitral ring, up to moderate mitral stenosis and regurgitation, and moderate aortic insufficiency. Plan: - Continue cardiology consultation - continue IV diuretics (IV Lasix) - Monitor renal function Acute Hypoxic Respiratory Failure Assessment: Patient is currently intubated due to acute hypoxic respiratory failure. Dr. Downey from pulmonology is managing this aspect of care. Plan: - Maintain current intubation as per pulmonology recommendation - Proceed with CPAP trials when deemed appropriate by pulmonology Transaminitis Assessment: Patient has elevated liver function tests, likely secondary to amiodarone use. Cardiology has discontinued amiodarone in response. Plan: - Monitor liver function tests - Amiodarone discontinued as per cardiology Enterobacter PNA Assessment: Sputum culture positive for Enterobacter. Plan: - Continue treatment with Eratapenem to complete 10 days regimen -Infectious disease consult Hemodynamic Support Assessment: Patient requires vasopressor support for hemodynamic stability. Plan: - Continue vasopressin - Continue neosynephrine Paroxysmal a fib -DC amiodarone -continue with heparin gtt Assessment/Plan Subjective: Patient remains on the ventilator. Objective: Patient has been more stable compared to yesterday. Amiodarone was discontinued by Cardiology. He is currently off vasopressors. No ectopy noted at this time. Patient is on antibiotics with vancomycin and Zosyn. Plan: Continue tube feeding and Clinimix for nutritional support. Continue IV antibiotics. Monitor on EEG. Pacemaker interrogation. Dietary Evaluation Review Comments: 1) TF Jevity 1.2Cal @ 55 ml/hr. x 24hr along with Pro-stat 1 pk daily. Start @ 20ml/hr, increase 10ml/hr Q4H until goal is reached. TF @ goal volume provides 1684 kcal (100% energy needs), 88 gm protein (100% protein needs), 1065 ml free water. 2) Water flush 100ml Q4H if allowed, adjust PRN 3) Advance to cardiac diet as medically feasible 4) Monitor NPO status, lab values, wt trend, I/O Expected Outcomes/Goals: To meet >75% estimated needs within 7 days Lab values to improve Fu 2-3 days Plan discussed with: Patient, Other BRODIE GARVIN SENIOR PENSIONS ADMINISTRATOR Oct 20, 2024 14:49
--- NOTE | 2024-10-20 18:31 | DVHPN2 ---
Progress Note - Dictate Date Seen: Oct 20, 2024 Has the PT tested + for MRSA If YES, has PT been informed?: No Medical Necessity Reason Pt with a Central, PICC or Fol: Yes The following are medically ne: Cutler Catheter Reason for cutler catheter: Strict I&O Subjective Ms. Smith is a 54 years old female who was brought to the [facility] on 10/07/2024 with a chief complaint of cardiopulmonary arrest/status post CPR. I have seen and examined the patient, I have discussed with her nurse, she is intubated, sedated, responsive to painful stimuli Unstable vitals She received pacemaker insertion on 10/17/2024 Fentanyl 125 mcg/hour, Versed 1 mg/hour, Precedex 0 mcg/kg per hour, Neosyn mcg/min Blood culture, 10/09/2024: No growth Blood culture, 10/19/2024: UDS, 10/07/2024: Negative Urinalysis, 10/07/2024: Leukocyte esterase: Negative WBC/HB/PLT/MCV, 10/09/2024: 20/8.8/219/94.6, 10/10/2024: 21.2/8.7/232/92.2 PT/INR/PTT, 10/08/2024: 12.4/1.19/72.7, 10/09/2024: 13.1/1.26/68.9, 10/10/2024: 14.4/2/1.38/35.3 CMP, 10/08/2024: Unremarkable Troponin one high sensitivity, 10/07/2024: 141, 138, 117 TBI/AST/ALT/AP, 10/10/2024: 0.5/538/168/144, 10/11/2024: 0.6/293/199/152, 10/14/2024: 0.8/68/74/124 TG/HDL/LDL/HDL, 10/07/24: 71/66/31/21 Echocardiogram, 10/07/2024: lvef 15-20% dilated LV severe global dysfunction mild RV dysfunction biatrial enlargement mild moderate MAC, moderate mitral regurg mild to moderate aortic regug RICHIE, 10/08/2024: 1. Left ventricle: Dilated LV was seen. LVEF was 25%. There was diffuse hypokinesis of left ventricle. 2. Right ventricle: RV was mildly dilated. 3. Left atrium: LA enlarged 4. Right atrium: RA was enlarged. 5. Mitral valve: Mitral was thickened with reduced opening. Moderate Mitral regurgitation was seen. Planinomentry of valve (TTE images also obtained) revealed MVA of 2.1 cm. Mean pressure gradient (obtained from limited TTE images) was 5. Images are consistent with previously implanted Ring in Mitral position. Consistent with up to Moderate Mitral stenosis. . There was no vegetation 6. Left atrial appendage: No evidence of thrombus. 7. Aortic valve: Trileaflet valve. No stenosis. Up to moderate Aortic Insufficiency was seen. There was no vegetation 8. Pulmonic valve: Trivial pulmonic insufficiency. No significant stenosis. 9. Tricuspid valve: Mild tricuspid regurgitation. There was no vegetation 10. Interatrial septum: Negative color flow for right to left shunt was observed. Bubble study was performed: negative for shunt 11. Pericardium: No significant effusion. 12. Thoracic aorta: No significant plaquing. Chest x-ray, 10/27/2024: 1. Cardiomegaly, stable diffuse increased prominence of the pulmonary vasculature and small bilateral pleural effusions. 2. Slight interval advancement of endotracheal tube as above. Remaining lines and tubes unchanged. CT head, 10/07/2024: No acute intracranial abnormality General: the patient is well developed and nourished. No acute distress. Intubated CT head, 10/07/2024: No acute intracranial abnormality. CT head, 10/11/2024: No acute intracranial abnormality vital signs Vital Sign Date Time Temp Pulse Resp B/P (MAP) Pulse Ox O2 Delivery O2 Flow Rate FiO2 10/20/24 18:03 71 18 99/49 (66) 99 30 10/20/24 14:45 98.1 208.6 10/20/24 14:00 Mechanical Ventilator+ Total Intake and Output 10/19/24 10/19/24 10/20/24 15:00 23:00 07:00 Intake Total 711.021 ml 945.554 ml 956.752 ml Output Total 2650 ml 1126 ml Balance 711.021 ml -1704.446 ml -169.248 ml medications Current Medications Medications Dose Ordered Sig/Liliam Route Start Time Stop Time Status Last Admin Dose Admin Midazolam HCl 50 ml @ 1 mls/hr Q24H IV 10/07/24 04:45 10/20/24 03:54 4 MLS/HR Ondansetron HCl 4 mg Q4HP PRN IV 10/07/24 10:00 Nitroglycerin 0.4 mg Q5MINP PRN SL 10/07/24 10:00 Pantoprazole Sodium 40 mg DAILY IV 10/07/24 10:00 10/20/24 09:54 40 MG Aspirin 81 mg DAILY PO 10/08/24 10:00 10/20/24 10:00 81 MG Mexiletine HCl 150 mg TID GT 10/08/24 22:00 10/20/24 13:29 150 MG Acetaminophen 500 mg Q6HP PRN PO 10/08/24 22:30 10/19/24 03:18 500 MG Enteral Nutritional Formula 1,000 ml 55ML/HR GT 10/09/24 18:45 10/18/24 03:07 1,000 ML Phenylephrine HCl 80 mg/Sodium Chloride 250 ml @ 7.5 mls/hr Q24H IV 10/10/24 09:30 10/19/24 21:57 15 MLS/HR Furosemide 20 mg BIDD IV 10/12/24 18:00 10/20/24 17:31 20 MG Esmolol HCl 250 ml @ 0 mls/hr Q0M IV 10/14/24 10:45 Amino Acids 0 ml @ 0 mls/hr PER PHARMACY IV 10/15/24 18:45 Diagnostic Test (Pha) 1 strip Q6HR 10/16/24 12:00 10/20/24 17:32 1 STRIP Insulin Human Regular FOLLOW SLIDING SCALE Q6HR SC 10/16/24 12:00 10/20/24 17:39 2 UNITS Dextrose 50 ml UD IV 10/16/24 09:30 Amino Acids/ Electrolytes/ Dextrose 1,000 ml @ 41 mls/hr DAILY@2200 IV 10/16/24 22:00 10/19/24 22:00 41 MLS/HR Fentanyl Citrate 250 ml @ 2.5 mls/hr Q24H IV 10/16/24 13:00 10/20/24 03:56 12.5 MLS/HR Polyethylene Glycol 17 gm DAILYPRN PRN GT 10/17/24 16:45 10/19/24 05:54 17 GM Doxycycline Monohydrate 100 mg Q12HR NG 10/18/24 10:00 10/20/24 09:54 100 MG Warfarin Sodium 2 mg DAILY@17 GT 10/19/24 17:00 10/20/24 17:31 2 MG Piperacillin Sod/ Tazobactam Sod 100 ml @ 25 mls/hr Q8HR IV 10/19/24 14:00 10/20/24 13:30 25 MLS/HR Hydrocortisone Sodium Succinate 50 mg Q6HR IV 10/19/24 18:00 10/20/24 17:31 50 MG Vancomycin HCl 0 ml @ 0 mls/hr UD IV 10/19/24 14:00 Vasopressin 20 units/Sodium Chloride 100 ml @ 9 mls/hr Q11H7M IV 10/19/24 15:45 Vancomycin HCl 100 ml @ 100 mls/hr Q12H IV 10/20/24 02:00 10/20/24 13:29 100 MLS/HR objective The patient is well-nourished and well-developed with no distress. The patient is intubated MENTAL STATUS: Subjective CRANIAL NERVES: Pupils are equal, round and reactive.There are corneal reflexes and doll's eyes phenomenon. No signs of facial weakness. There are gagging or coughing reflexes SENSATION: Responses to pain stimuli. MOTOR: Normal tone in the upper and lower extremity. Normal muscle bulk. No fasciculations. No spontaneous movement. REFLEXES: Deep tendon reflexes are symmetrical. No pathological reflexes. CEREBELLAR/COORDINATION: Deferred GAIT/STATION: deferred. laboratory and microbiology Laboratory Tests 10/20/24 03:13 Test 10/20/24 03:13 Range/Units Serum Glucose 155 H 74-106 mg/dL Problem List Cardiopulmonary arrest Status post CPR Metabolic encephalopathy Hypoxic encephalopathy Congestive heart failure Leukocytosis/sepsis/septic shock Respiratory failure Elevated liver function tests S/P pacemaker insertion on 10/17/2024 Assessment/Plan Monitoring Supportive treatment ICU care Stabilize vitals Respiratory support/vent management Hold off Lipitor (elevated liver function tests), LDL (31) (home medications included Lipitor 40 mg daily) DVT prophylaxis GI prophylaxis Cardiology on case Pulmonology on case Nephrology on case Consult GI Re: Elevated liver function tests Need more history Gradual wean off sedation, and CPAP trial This medical document was created using an electronic medical record system with [employer] dictation system. Although this document has been carefully reviewed, there may still be some phonetic and typographical errors. These areas are purely typographical due to imperfections of the software programs, and do not reflect any compromise in the patient's medical care. Prognosis guarded Dietary Evaluation Review Comments: 1) TF Jevity 1.2Cal @ 55 ml/hr. x 24hr along with Pro-stat 1 pk daily. Start @ 20ml/hr, increase 10ml/hr Q4H until goal is reached. TF @ goal volume provides 1684 kcal (100% energy needs), 88 gm protein (100% protein needs), 1065 ml free water. 2) Water flush 100ml Q4H if allowed, adjust PRN 3) Advance to cardiac diet as medically feasible 4) Monitor NPO status, lab values, wt trend, I/O Expected Outcomes/Goals: To meet >75% estimated needs within 7 days Lab values to improve Fu 2-3 days Plan discussed with: Other CAROLINE ROBB MD Oct 20, 2024 18:30
--- NOTE | 2024-10-20 23:32 | DVHPN2 ---
Progress Note - Dictate Date Seen: Oct 20, 2024 Has the PT tested + for MRSA If YES, has PT been informed?: No Medical Necessity Reason Pt with a Central, PICC or Fol: Yes The following are medically ne: Cutler Catheter Reason for cutler catheter: Strict I&O Subjective Patient seen and examined at bedside. Sedated, intubated on mechanical ventilator. Overnight events reviewed. vital signs Vital Sign Date Time Temp Pulse Resp B/P (MAP) Pulse Ox O2 Delivery O2 Flow Rate FiO2 10/20/24 23:00 98.4 78 20 111/51 (71) 100 209.1 10/20/24 22:22 30 10/20/24 22:00 Mechanical Ventilator+ Total Intake and Output 10/19/24 10/19/24 10/20/24 15:00 23:00 07:00 Intake Total 711.021 ml 945.554 ml 956.752 ml Output Total 2650 ml 1126 ml Balance 711.021 ml -1704.446 ml -169.248 ml medications Current Medications Medications Dose Ordered Sig/Liliam Route Start Time Stop Time Status Last Admin Dose Admin Midazolam HCl 50 ml @ 1 mls/hr Q24H IV 10/07/24 04:45 10/20/24 03:54 4 MLS/HR Ondansetron HCl 4 mg Q4HP PRN IV 10/07/24 10:00 Nitroglycerin 0.4 mg Q5MINP PRN SL 10/07/24 10:00 Pantoprazole Sodium 40 mg DAILY IV 10/07/24 10:00 10/20/24 09:54 40 MG Aspirin 81 mg DAILY PO 10/08/24 10:00 10/20/24 10:00 81 MG Mexiletine HCl 150 mg TID GT 10/08/24 22:00 10/20/24 21:53 150 MG Acetaminophen 500 mg Q6HP PRN PO 10/08/24 22:30 10/19/24 03:18 500 MG Enteral Nutritional Formula 1,000 ml 55ML/HR GT 10/09/24 18:45 10/18/24 03:07 1,000 ML Phenylephrine HCl 80 mg/Sodium Chloride 250 ml @ 7.5 mls/hr Q24H IV 10/10/24 09:30 10/19/24 21:57 15 MLS/HR Furosemide 20 mg BIDD IV 10/12/24 18:00 10/20/24 17:31 20 MG Esmolol HCl 250 ml @ 0 mls/hr Q0M IV 10/14/24 10:45 Amino Acids 0 ml @ 0 mls/hr PER PHARMACY IV 10/15/24 18:45 Diagnostic Test (Pha) 1 strip Q6HR 10/16/24 12:00 10/20/24 17:32 1 STRIP Insulin Human Regular FOLLOW SLIDING SCALE Q6HR SC 10/16/24 12:00 10/20/24 17:39 2 UNITS Dextrose 50 ml UD IV 10/16/24 09:30 Amino Acids/ Electrolytes/ Dextrose 1,000 ml @ 41 mls/hr DAILY@2200 IV 10/16/24 22:00 10/20/24 21:53 41 MLS/HR Fentanyl Citrate 250 ml @ 2.5 mls/hr Q24H IV 10/16/24 13:00 10/20/24 03:56 12.5 MLS/HR Polyethylene Glycol 17 gm DAILYPRN PRN GT 10/17/24 16:45 10/19/24 05:54 17 GM Doxycycline Monohydrate 100 mg Q12HR NG 10/18/24 10:00 10/20/24 21:53 100 MG Warfarin Sodium 2 mg DAILY@17 GT 10/19/24 17:00 10/20/24 17:31 2 MG Piperacillin Sod/ Tazobactam Sod 100 ml @ 25 mls/hr Q8HR IV 10/19/24 14:00 10/20/24 21:53 25 MLS/HR Hydrocortisone Sodium Succinate 50 mg Q6HR IV 10/19/24 18:00 10/20/24 17:31 50 MG Vancomycin HCl 0 ml @ 0 mls/hr UD IV 10/19/24 14:00 Vasopressin 20 units/Sodium Chloride 100 ml @ 9 mls/hr Q11H7M IV 10/19/24 15:45 Vancomycin HCl 100 ml @ 100 mls/hr Q12H IV 10/20/24 02:00 10/20/24 13:29 100 MLS/HR objective Gen.: Patient lying in bed in medical ICU. Sedated, intubated on mechanical ventilator. Head: Normocephalic, atraumatic. Eyes: PERRLA. Ears: Normal external anatomy. Throat: Endotracheal tube and orogastric tube in place. Neck: Supple, trachea midline. Chest: Transmitted breath sounds bilaterally. Decreased air entry bilaterally. No wheezing. Bibasilar crackles. Cardiovascular: Positive S1, positive S2. Regular rate and rhythm. Abdomen: Positive bowel sounds in all 4 quadrants. Soft, nontender, nondistended. : Cutler in place. Normal external genitalia. Rectal: Deferred. Skin: Warm, dry. Intact. Extremities: 2+ radial pulses bilaterally. No lower extremity edema. Neuro: Sedated. laboratory and microbiology Laboratory Tests 10/20/24 03:13 Test 10/20/24 03:13 Range/Units Serum Glucose 155 H 74-106 mg/dL Assessment/Plan Impression: Acute hypoxic respiratory failure On mechanical ventilator s/p cardiac arrest Ventricular tachycardia CPR <5 min Elevated troponin Atelectasis Events: Pt seen and examined in ICU On mechanical ventilation AC mode with RR 18, VT 450, PEEP 5, FiO2 30% ABG reviewed, notable for alkalemia CXR demonstrates worsening mixed opacities in the right lower lung. Devices in place. Sedated on Versed, Fentanyl On pressors for hemodynamic support On Stone-Synephrine 40 mcg/min Titrate to keep mean arterial pressure greater than 65 mmHg. Continue antibiotics Monitor blood pressure d/t hypotension Accu-Cheks, ISS. Cardiology recommendations appreciated Continue diuresis with Lasix as tolerated Monitor renal function Monitor electrolytes. Supplement as necessary. Clinimix for nutritional support Labs and imaging reviewed. Plan: s/p intubation on mechanical ventilator. Titrate FIO2 to keep O2 saturation above 90%. VAP bundle. Daily ABG and CXR while intubated Sedate for ventilator synchrony Pressors as necessary for hemodynamic support. Titrate to keep MAP greater than 65 mmHg. SBT/CORINE. Pressure support 09/01, extubate when ready OK to use Precedex Patient is s/p pacemaker Follow up Cardiology recs Continue antibiotics. F/u cultures. Monitor labs Monitor renal function Monitor electrolytes. Supplement as necessary. Monitor ins and outs. F/u Cardiology recs. DVT prophylaxis. Prognosis: Poor given patient's multiple co-morbidities. Condition: Critical Rest of plan per hospitalist and other consultants. A total of 35 minutes of critical care time was spent reviewing the patient record, examining the patient, making a diagnostic and therapeutic plan, discussing this plan with the medical personnel, following up on diagnostic studies and following the patient for clinical stability excluding any and all procedures. At least 50% of this time was spent in direct, [id number] contact. Thank you, DEVELOPMENT PLANNER Jason, for allowing me to participate in this patient's care. Further recommendations will depend on the patient's clinical course. Please do not hesitate to contact me if you have any questions or concerns. This medical document was created using an electronic medical record system with [employer] dictation system. Although these documentations are being carefully reviewed, there may still be some phonetic and typographical changes. The errors are purely typographical, due to imperfection on the software program, and do not reflect any compromise in the patient's medical care. Dietary Evaluation Review Comments: 1) TF Jevity 1.2Cal @ 55 ml/hr. x 24hr along with Pro-stat 1 pk daily. Start @ 20ml/hr, increase 10ml/hr Q4H until goal is reached. TF @ goal volume provides 1684 kcal (100% energy needs), 88 gm protein (100% protein needs), 1065 ml free water. 2) Water flush 100ml Q4H if allowed, adjust PRN 3) Advance to cardiac diet as medically feasible 4) Monitor NPO status, lab values, wt trend, I/O Expected Outcomes/Goals: To meet >75% estimated needs within 7 days Lab values to improve Fu 2-3 days Plan discussed with: Other (CEE Wayne) Critical Care Time(min): 35 KENNY FROST MD Oct 20, 2024 23:32
[2024-10-21] VITALS (106 sets, daily range): BP systolic 82–131; BP diastolic 37–79; PULSE 73–81; RESP 13–28; TEMP 96.8–99.1; O2SAT 96–100
[2024-10-21 04:14] LABS: INR 1.67 (0.9-1.15); Prothrombin Time 16.8 sec (9.3-11.8)
[2024-10-21 08:13] LABS: Base Excess -6.9 mmol/L (-2.0-3.0)
--- NOTE | 2024-10-21 08:30 | DVHPN2 ---
Progress Note - Dictate Date Seen: Oct 21, 2024 Has the PT tested + for MRSA If YES, has PT been informed?: No Medical Necessity Reason Pt with a Central, PICC or Fol: Yes The following are medically ne: Cutler Catheter Reason for cutler catheter: Strict I&O vital signs Vital Sign Date Time Temp Pulse Resp B/P (MAP) Pulse Ox O2 Delivery O2 Flow Rate FiO2 10/21/24 07:28 113/59 10/21/24 06:45 98.6 75 18 100 209.5 10/21/24 06:38 30 10/21/24 06:00 Mechanical Ventilator+ Total Intake and Output 10/20/24 10/20/24 10/21/24 15:00 23:00 07:00 Intake Total 592.813 ml 1110.0 ml 727.5 ml Output Total 1000 ml 1000 ml Balance 592.813 ml 110.0 ml -272.5 ml medications Current Medications Medications Dose Ordered Sig/Liliam Route Start Time Stop Time Status Last Admin Dose Admin Midazolam HCl 50 ml @ 1 mls/hr Q24H IV 10/07/24 04:45 10/21/24 07:28 4 MLS/HR Ondansetron HCl 4 mg Q4HP PRN IV 10/07/24 10:00 Nitroglycerin 0.4 mg Q5MINP PRN SL 10/07/24 10:00 Pantoprazole Sodium 40 mg DAILY IV 10/07/24 10:00 10/20/24 09:54 40 MG Aspirin 81 mg DAILY PO 10/08/24 10:00 10/20/24 10:00 81 MG Mexiletine HCl 150 mg TID GT 10/08/24 22:00 10/21/24 05:32 150 MG Acetaminophen 500 mg Q6HP PRN PO 10/08/24 22:30 10/19/24 03:18 500 MG Enteral Nutritional Formula 1,000 ml 55ML/HR GT 10/09/24 18:45 10/18/24 03:07 1,000 ML Phenylephrine HCl 80 mg/Sodium Chloride 250 ml @ 7.5 mls/hr Q24H IV 10/10/24 09:30 10/19/24 21:57 15 MLS/HR Furosemide 20 mg BIDD IV 10/12/24 18:00 10/21/24 05:32 20 MG Esmolol HCl 250 ml @ 0 mls/hr Q0M IV 10/14/24 10:45 Amino Acids 0 ml @ 0 mls/hr PER PHARMACY IV 10/15/24 18:45 Diagnostic Test (Pha) 1 strip Q6HR 10/16/24 12:00 10/21/24 05:32 1 STRIP Insulin Human Regular FOLLOW SLIDING SCALE Q6HR SC 10/16/24 12:00 10/21/24 05:37 4 UNITS Dextrose 50 ml UD IV 10/16/24 09:30 Amino Acids/ Electrolytes/ Dextrose 1,000 ml @ 41 mls/hr DAILY@2200 IV 10/16/24 22:00 10/20/24 21:53 41 MLS/HR Fentanyl Citrate 250 ml @ 2.5 mls/hr Q24H IV 10/16/24 13:00 10/21/24 00:03 12.5 MLS/HR Polyethylene Glycol 17 gm DAILYPRN PRN GT 10/17/24 16:45 10/19/24 05:54 17 GM Doxycycline Monohydrate 100 mg Q12HR NG 10/18/24 10:00 10/20/24 21:53 100 MG Warfarin Sodium 2 mg DAILY@17 GT 10/19/24 17:00 10/20/24 17:31 2 MG Piperacillin Sod/ Tazobactam Sod 100 ml @ 25 mls/hr Q8HR IV 10/19/24 14:00 10/21/24 05:32 25 MLS/HR Hydrocortisone Sodium Succinate 50 mg Q6HR IV 10/19/24 18:00 10/21/24 05:32 50 MG Vancomycin HCl 0 ml @ 0 mls/hr UD IV 10/19/24 14:00 Vasopressin 20 units/Sodium Chloride 100 ml @ 9 mls/hr Q11H7M IV 10/19/24 15:45 Vancomycin HCl 100 ml @ 100 mls/hr Q12H IV 10/20/24 02:00 10/20/24 13:29 100 MLS/HR laboratory and microbiology Laboratory Tests 10/20/24 03:13 Test 10/20/24 03:13 Range/Units Serum Glucose 155 H 74-106 mg/dL Assessment/Plan Patient is a 54-year-old female who was brought to the hospital for witnessed syncope. She is intubated and is being managed in ICU. Information was obtained by reviewing the chart and communicating with patient's son (over the phone). Family recognized witnessed syncope and started CPR and called EMS. Reportedly, EMS found the patient in ventricular fibrillation and shocked the patient and brought the patient to the hospital. Patient was intubated in emergency room and transferred to ICU. Patient was on amiodarone drip. Later the patient had ventricular tachycardia (Systane). High sensitive troponin had been minimally/flatly elevated. Presentation was not in favor of acute coronary syndrome. Cardiology is involved for cardiac aspects of care. Intubated. Noncommunicative. No JVD. Mucosa pale. No carotid bruit. Scattered rhonchi in the lungs is heard. Cardiac: Regular, no thrill. Systolic murmur 2/6 in apex is heard. Abdomen is soft. No edema in extremities. Past medical history as per son: Congenital heart disease, status post bypass WBC: 14.5 - 11.9 - 18.8 - 20.0 - 21.2 - 14.3 - 10.3 - 8.9 - 9.2 - 11.1 - 12.1 - 10.8 - 12.0 - 9.9 - 15.4 - 14.8 - 12.1 Hemoglobin: 10.1 - 9.6 - 9.2 - 8.8 - 8.7 - 8.0 - 8.3 - 8.5 - 7.8 - 10.2 - 10.7 - 9.9 - 9.7 - 9.3 - 9.3 - 8.6 - 8.1 Creatinine: 0.95 - 0.93 - 0.87 - 0.83 - 0.83 - 0.76 - 0.68 - 0.72 - 0.79 - 0.76 - 0.80 - 0.84 - 0.61 - 0.65 - 0.74 - 0.64 - 0.73 Potassium: 3.4 - 4.0 - 4.6 - 3.5 - 3.3 - 4.1 - 3.7 - 3.2 - 3.7 - 4.0 - 3.2 - 3.4 - 3.9 - 4.2 - 3.3 - 3.8 - 3.6 - 3.4 - 4.2 - 3.8 - 4.5 - 4.1 Magnesium: 2.0 - 1.6 - 2.0 - 3.0 - 1.5 - 1.9 - 2.1 - 1.8 - 2.0 - 1.9 - 1.9 - 2.6 - 2.0 - 1.8 - 1.6 - 2.0 - 2.2 Troponin (high sensitive): 141 - 138 - 117 BNP: 457.16 AST/ALT: 32/11 - 19/13 - 538/168 - 293/152 - 131/130 - 78/94 - 68/74 - 48/57 - 27/38 - 15/23 - 20/18 - 23/17 - 29/16 - 27/13 Digoxin level: 2.83 - 1.25 - 0.98 UDS: non-revealing Chest x-ray revealed: Lines and Tubes: Endotracheal tube tip projects approximately 1.4 cm above the level of the tyler. Enteric catheter courses below the lateral of the diaphragm and terminates beyond the inferior margin of the image. Right internal jugular central venous catheter terminates within the distal superior vena cava. Lungs: Moderate diffuse increased prominence of the pulmonary vasculature without evidence of focal consolidation. Pleura: No effusion. No pneumothorax. Cardiomediastinal contours: Cardiomegaly. Bones: Unremarkable IMPRESSION: 1. Cardiomegaly and diffuse increased prominence of the pulmonary vasculature. 2. Lines and tubes as above. Repeat chest x-ray revealed: IMPRESSION: 1. Endotracheal tube tip 1.6 cm above the tyler; consider 2 cm retraction 2. Mild pulmonary vascular congestion. Moderate cardiomegaly. Repeat chest xry revealed: IMPRESSION: Endotracheal tube tip 1.6 cm above the tyler; consider 2 cm retraction Mild pulmonary vascular congestion. Moderate cardiomegaly. Repeat chest xry revealed: IMPRESSION: 1. Stable cardiomegaly, small left pleural effusion and mild diffuse increased prominence of the pulmonary vasculature. 2. Repositioned endotracheal tube as above. Remaining lines and tubes unchanged. Repeat chest xry revealed: IMPRESSION: 1. Cardiomegaly, stable diffuse increased prominence of the pulmonary vasculature and small bilateral pleural effusions. 2. Slight interval advancement of endotracheal tube as above. Remaining lines and tubes unchanged. Repeat chest xry revealed: IMPRESSION: 1. Slight interval decrease in diffuse increased prominence of the pulmonary vasculature. 2. Stable cardiomegaly and small left pleural effusion. 3. Lines and tubes unchanged. Repeat chest xry revealed: IMPRESSION: 1. Cardiomegaly and small left pleural effusion. 2. Lines and tubes unchanged. Repeat chest xry revealed: IMPRESSION: Stable lines and tubes. Similar lung aeration. Repeat chest xry revealed: IMPRESSION: Cardiomegaly and small left pleural effusion. Lines and tubes unchanged. Repeat chest xry revealed: IMPRESSION: Placement of a cardiac pacer, no pneumothorax is seen. Stable lines and tubes. Repeat chest xry revealed: IMPRESSION: 1. Worsening mixed opacities in the right lower lung. No other significant change from the previous study. Stable support devices. KUB revealed: IMPRESSION: Nonobstructive bowel gas pattern. Nasogastric tube tip in the stomach. Large stool burden. Left upper ext arterial duplex: IMPRESSION: No hemodynamically significant stenosis based on peak systolic velocity criteria. Left lower ext arterial duplex: IMPRESSION: There is no evidence for peripheral vascular insufficiency in the left lower extremity. No significant focal stenosis is identified. Liver Ultrasound revealed: Hepatic steatosis. Hepatomegaly. Cholelithiasis. CT of the head revealed: IMPRESSION: No acute intracranial abnormality. Repeat CT of head revealed: IMPRESSION: No acute intracranial abnormality. Echocardiogram reported: lvef 15-20% dilated LV severe global dysfunction mild RV dysfunction biatrial enlargement mild moderate MAC, moderate mitral regurg mild to moderate aortic regug (images of echo reviewed and questioned presence of mitral ring and also some component (moderate of Mitral stenosis) EKG revealed sinus rhythm Telemetry revealed occasions of atrial fibrillation. There was occasional sustained ventricular tachycardia. EMS tele monitor revealed ventricular fibrillation for which the patient was shocked. Has remained sinus rhythm. Later with A-fib with MVR LHC revealed: Patent RICHMOND to LAD; Patent SVG to obtuse marginal; LVEF of 20% with increased EDP; Proximal disease in LAD/LCX RICHIE was performed: Consistent with severely reduced LVEF. Consistent with previously implanted Mitral ring, Up to moderate Mitral stenosis/Mitral Regurgitation and also Moderate Aortic insufficiency. Patient is a 54-year-old female who presented with witnessed syncope. She was found to have ventricular fibrillation for which was shocked. Later had repeated episode of sustained ventricular tachycardia. Patient has been kept in ICU. Does have baseline history of coronary artery disease for which has had bypass surgery. Left heart catheterization was performed which revealed patent RICHMOND and patent SVG. ACS is not considered at this point. It is of note that the patient's echocardiogram reveals significantly use systolic function. Valvular heart disease is considered. Findings are in favor of previously implanted mitral ring. By reviewing the echo images, component of up to moderate mitral stenosis could not be ruled out. LHC was performed that ruled out any active specific ischemia as an etiology for presentation. Is off Amiodarone for abnormal LFT. Being followed by Nephrology / Pulmonary / Neurology / GI ID. Tele has remained sinus rhythm. Had episode of a-fib with RVR. Was loaded with Digoxin. Dig level was performed at wrong timing (only 5 hours after the last Dig given). Dig toxicity is not considered. Patient is back to normal sinus rhythm. Has good kidney function. Repeat Dig level is acceptable level. s/p ICD implantation by EP Syncope V-fib s/p shock Sustained V-tach Paroxysmal A-fib VHD, s/p Mitral ring Systolic heart failure Abnormal LFT, resolved s/p ICD (Biotronik) implantation by EP (Dr Armstrong) Cardiac suggestion for management: Manage in ICU Follow up electrolytes and kidney function test and correct abnormalities Full anticoagulation (a-fib with high CHADS-Vasc score). s/p recent ICD implantation and as per EP only on low dose coumadin. After a week to restart full anticoagulation Off Amio drip (worsened LFT) (personally discussed with EP: Dr Armstrong who advised to stop / not to restart Amiodarone) On Mexiletine If need for pressure support: use Phenyl Ephrine / vasopressin, keep MAP above 65 May consider Esmolol for PVC/Vtach s/p ICD (Biotronik) implantation by EP A/C: On Coumadin (as per EP verbal suggestion): check INR daily Pulmonary Follow up Provide previous medical records from reaching out to previous hospitals in [facility]... Further evaluation and management depends on the above and clinical course. A total of 75 minutes was spent reviewing the patient record, examining the patient, making a diagnostic and therapeutic plan, discussing this plan with medical personnel, following up on diagnostic studies and following the patient for clinical stability excluding any and all procedures. At least 50% of this time was spent in direct, [id number] contact. Thank you for allowing me to participate in this patient's care. Further recommendations will depend on patient's clinical course. Please do not hesitate to contact me if you have any questions or concerns. This medical document was created using electronic medical record system with MModal computerized dictation system. Although this document has been carefully reviewed, there may still be some phonetic and typographical errors. These areas are purely typographical due to the imperfection of the software programs, and do not reflect any compromise in the patient's medical care. Dietary Evaluation Review Comments: 1) TF Jevity 1.2Cal @ 55 ml/hr. x 24hr along with Pro-stat 1 pk daily. Start @ 20ml/hr, increase 10ml/hr Q4H until goal is reached. TF @ goal volume provides 1684 kcal (100% energy needs), 88 gm protein (100% protein needs), 1065 ml free water. 2) Water flush 100ml Q4H if allowed, adjust PRN 3) Advance to cardiac diet as medically feasible 4) Monitor NPO status, lab values, wt trend, I/O Expected Outcomes/Goals: To meet >75% estimated needs within 7 days Lab values to improve Fu 2-3 days Plan discussed with: Other (nurse) CORDELL VERA MD Oct 21, 2024 08:30
[2024-10-21 09:47] LABS: Alanine Aminotransferase 17 U/L (7-40); Albumin 3.5 g/dL (3.2-4.8); Alkaline Phosphatase 84 U/L (46-116); Anion Gap 13 (5-15); BUN/Creatinine Ratio 25.6 (10.0-20.0); Blood Urea Nitrogen 21 mg/dL (9-23); Magnesium 1.9 mg/dL (1.6-2.6); Sodium 140 mmol/L (136-145); Total Protein 5.9 g/dL (5.7-8.2)
[2024-10-21 09:48] LABS: Bilirubin, Total 0.5 mg/dL (0.2-1.0)
[2024-10-21 09:49] LABS: Calcium 8.4 mg/dL (8.7-10.4); Carbon Dioxide 17 mmol/L (20-31); Chloride 110 mmol/L (98-107); Glucose 148 mg/dL (74-106); Potassium 3.5 mmol/L (3.5-5.1)
[2024-10-21 11:32] LABS: Hemoglobin 7.4 g/dL (12.2-16.2)
[2024-10-21 11:37] LABS: Hematocrit 23.0 % (36.0-46.0)
[2024-10-21] MEDS: MAGNESIUM SULFATE 1GM/100ML 100 ML IV SCH (13:05)
--- NOTE | 2024-10-21 14:31 | DVHPN2 ---
Progress Note - Dictate Date Seen: Oct 21, 2024 Has the PT tested + for MRSA If YES, has PT been informed?: No Medical Necessity Reason Pt with a Central, PICC or Fol: Yes The following are medically ne: Cutler Catheter Reason for cutler catheter: Strict I&O vital signs Vital Sign Date Time Temp Pulse Resp B/P (MAP) Pulse Ox O2 Delivery O2 Flow Rate FiO2 10/21/24 14:14 74 18 105/49 (67) 100 30 10/21/24 14:00 Mechanical Ventilator+ 10/21/24 13:45 98.1 208.6 Total Intake and Output 10/20/24 10/20/24 10/21/24 15:00 23:00 07:00 Intake Total 592.813 ml 1110.0 ml 785.0 ml Output Total 1000 ml 1000 ml Balance 592.813 ml 110.0 ml -215.0 ml medications Current Medications Medications Dose Ordered Sig/Liliam Route Start Time Stop Time Status Last Admin Dose Admin Midazolam HCl 50 ml @ 1 mls/hr Q24H IV 10/07/24 04:45 10/21/24 07:28 4 MLS/HR Ondansetron HCl 4 mg Q4HP PRN IV 10/07/24 10:00 Nitroglycerin 0.4 mg Q5MINP PRN SL 10/07/24 10:00 Pantoprazole Sodium 40 mg DAILY IV 10/07/24 10:00 10/21/24 10:57 40 MG Aspirin 81 mg DAILY PO 10/08/24 10:00 10/20/24 10:00 81 MG Mexiletine HCl 150 mg TID GT 10/08/24 22:00 10/21/24 05:32 150 MG Acetaminophen 500 mg Q6HP PRN PO 10/08/24 22:30 10/19/24 03:18 500 MG Enteral Nutritional Formula 1,000 ml 55ML/HR GT 10/09/24 18:45 10/18/24 03:07 1,000 ML Phenylephrine HCl 80 mg/Sodium Chloride 250 ml @ 7.5 mls/hr Q24H IV 10/10/24 09:30 10/19/24 21:57 15 MLS/HR Furosemide 20 mg BIDD IV 10/12/24 18:00 10/21/24 05:32 20 MG Esmolol HCl 250 ml @ 0 mls/hr Q0M IV 10/14/24 10:45 Amino Acids 0 ml @ 0 mls/hr PER PHARMACY IV 10/15/24 18:45 Diagnostic Test (Pha) 1 strip Q6HR 10/16/24 12:00 10/21/24 12:51 1 STRIP Insulin Human Regular FOLLOW SLIDING SCALE Q6HR SC 10/16/24 12:00 10/21/24 12:52 2 UNITS Dextrose 50 ml UD IV 10/16/24 09:30 Amino Acids/ Electrolytes/ Dextrose 1,000 ml @ 41 mls/hr DAILY@2200 IV 10/16/24 22:00 10/20/24 21:53 41 MLS/HR Fentanyl Citrate 250 ml @ 2.5 mls/hr Q24H IV 10/16/24 13:00 10/21/24 00:03 12.5 MLS/HR Polyethylene Glycol 17 gm DAILYPRN PRN GT 10/17/24 16:45 10/19/24 05:54 17 GM Doxycycline Monohydrate 100 mg Q12HR NG 10/18/24 10:00 10/21/24 10:57 100 MG Warfarin Sodium 2 mg DAILY@17 GT 10/19/24 17:00 10/20/24 17:31 2 MG Piperacillin Sod/ Tazobactam Sod 100 ml @ 25 mls/hr Q8HR IV 10/19/24 14:00 10/21/24 05:32 25 MLS/HR Hydrocortisone Sodium Succinate 50 mg Q6HR IV 10/19/24 18:00 10/21/24 12:50 50 MG Vancomycin HCl 0 ml @ 0 mls/hr UD IV 10/19/24 14:00 Vasopressin 20 units/Sodium Chloride 100 ml @ 9 mls/hr Q11H7M IV 10/19/24 15:45 Magnesium Sulfate/ Dextrose 100 ml @ 100 mls/hr Q1HR IV 10/21/24 13:00 10/21/24 14:59 10/21/24 14:12 100 MLS/HR objective General Appearance: no distress HEENT: EOMI, PERRLA, normal external inspect of ears, no icterus, no nasal drainage Neck: no carotid bruit, no jugular venous distention (JVD), no lymphadenopathy Chest: normal thorax Respiratory: Intubated, clear to auscultation, normal air movement Cardiovascular: regular rate and rhythm, no diastolic murmur, no jugular venous distention (JVD), no rub, no systolic murmur Abdominal: soft, no hepatomegaly, no mass, no splenomegaly, no tenderness Genitourinary: grossly normal external Musculoskeletal: no joint tenderness, no swelling Extremities: normal pulses, no calf tenderness, no clubbing, no cyanosis, no edema Skin: no bruising, no jaundice, no rash Neurological: No focal deficit laboratory and microbiology Laboratory Tests 10/21/24 10:30 10/21/24 09:40 10/20/24 03:13 Test 10/21/24 09:40 Range/Units Serum Glucose 148 H 74-106 mg/dL Problem List Cardiac Arrest with Ventricular Fibrillation Assessment: Patient experienced cardiac arrest with ventricular fibrillation on 10/07/24, witnessed by family members who initiated CPR. EMS found the patient in ventricular fibrillation and administered shock therapy. Rhythm strip analysis confirmed ventricular fibrillation. Patient required intubation and sedation upon ED arrival. Currently admitted to ICU for close observation. Cardiology has been consulted and plans for AICD placement, likely on Tuesday. Infectious disease clearance has been obtained for the AICD procedure, addressing initial concerns of leukocytosis which is now improving. Status post-cardiac arrest. Plan: - Continue ICU monitoring - Proceed with AICD placement as planned (likely Tuesday), cleared by infectious disease. - Maintain intubation and sedation until AICD placement - Continue Heparin drip for paroxysmal atrial fibrillation - Continue Mexitil - DC amiodarone due to transaminitis - added esmolol drip per Cardiology for AFib and added push doses of digoxin Coronary Artery Disease Assessment: Patient with history of 2-vessel CABG (Coronary Artery Bypass Grafting). Surgical intervention previously performed to address significant coronary artery stenosis. Plan: - Continue medical management - Follow up with cardiology for ongoing coronary artery disease management Acute and Chronic Systolic Heart Failure Assessment: Patient has acute and chronic systolic heart failure with severely reduced left ventricular function. Ejection fraction is estimated at 15-20%. RICHIE findings are consistent with severely reduced left ventricular ejection fraction, previously implanted mitral ring, up to moderate mitral stenosis and regurgitation, and moderate aortic insufficiency. Plan: - Continue cardiology consultation - continue IV diuretics (IV Lasix) - Monitor renal function Acute Hypoxic Respiratory Failure Assessment: Patient is currently intubated due to acute hypoxic respiratory failure. Dr. Downey from pulmonology is managing this aspect of care. Plan: - Maintain current intubation as per pulmonology recommendation - Proceed with CPAP trials when deemed appropriate by pulmonology Transaminitis Assessment: Patient has elevated liver function tests, likely secondary to amiodarone use. Cardiology has discontinued amiodarone in response. Plan: - Monitor liver function tests - Amiodarone discontinued as per cardiology Enterobacter PNA Assessment: Sputum culture positive for Enterobacter. Plan: - Continue treatment with Eratapenem to complete 10 days regimen -Infectious disease consult Hemodynamic Support Assessment: Patient requires vasopressor support for hemodynamic stability. Plan: - Continue vasopressin - Continue neosynephrine Paroxysmal a fib -DC amiodarone -continue with heparin gtt Assessment/Plan Subjective: Patient remains intubated and sedated. Objective: Patient remains on fentanyl for pain. Patient's blood culture and urine culture has no acute findings. Sputum cultures pending. Patient is currently tolerating tube feeding. Hemoglobin is 7.4. Patient apparently had 4 bowel movements yesterday. Patient has worsening opacities to the right lower lobe. Plan: Continue antibiotics for sepsis. Monitor culture reports. DC Clinimix if patient is tolerating tube feeding. Monitor daily CBC. Continue CPAP trial per pulmonary. Dietary Evaluation Review Comments: 1) TF Jevity 1.2Cal @ 55 ml/hr. x 24hr along with Pro-stat 1 pk daily. Start @ 20ml/hr, increase 10ml/hr Q4H until goal is reached. TF @ goal volume provides 1684 kcal (100% energy needs), 88 gm protein (100% protein needs), 1065 ml free water. 2) Water flush 100ml Q4H if allowed, adjust PRN 3) Advance to cardiac diet as medically feasible 4) Monitor NPO status, lab values, wt trend, I/O Expected Outcomes/Goals: To meet >75% estimated needs within 7 days Lab values to improve Fu 2-3 days Plan discussed with: Patient, Other BRODIE GARVIN RESPIRATORY THERAPY MANAGER Oct 21, 2024 14:31
[2024-10-21] MEDS: POTASSIUM CHL 20MEQ/100ML 100 ML IV ONE (15:26)
[2024-10-21] MEDS: METOCLOPRAMIDE HCL 5MG/ml INJ 2ml VIAL IV SCH (17:45)
[2024-10-21] MEDS: VANCOMYCIN 750MG KIT 100 ML IV SCH (17:46)
[2024-10-21] MEDS: POTASSIUM PHOSPHATE 44 MEQ in D5W 5% 250 ML IV ONE (17:47)
--- NOTE | 2024-10-21 22:58 | DVHPN2 ---
Progress Note - Dictate Date Seen: Oct 21, 2024 Has the PT tested + for MRSA If YES, has PT been informed?: No Medical Necessity Reason Pt with a Central, PICC or Fol: Yes The following are medically ne: Cutler Catheter Reason for cutler catheter: Strict I&O Subjective Patient seen and examined at bedside. Sedated, intubated on mechanical ventilator. Overnight events reviewed. vital signs Vital Sign Date Time Temp Pulse Resp B/P (MAP) Pulse Ox O2 Delivery O2 Flow Rate FiO2 10/21/24 22:00 78 18 106/53 (70) 100 30 10/21/24 21:30 98.2 208.8 10/21/24 20:00 Mechanical Ventilator+ Total Intake and Output 10/20/24 10/20/24 10/21/24 15:00 23:00 07:00 Intake Total 592.813 ml 1110.0 ml 785.0 ml Output Total 1000 ml 1000 ml Balance 592.813 ml 110.0 ml -215.0 ml medications Current Medications Medications Dose Ordered Sig/Liliam Route Start Time Stop Time Status Last Admin Dose Admin Midazolam HCl 50 ml @ 1 mls/hr Q24H IV 10/07/24 04:45 10/21/24 07:28 4 MLS/HR Ondansetron HCl 4 mg Q4HP PRN IV 10/07/24 10:00 Nitroglycerin 0.4 mg Q5MINP PRN SL 10/07/24 10:00 Pantoprazole Sodium 40 mg DAILY IV 10/07/24 10:00 10/21/24 10:57 40 MG Aspirin 81 mg DAILY PO 10/08/24 10:00 10/20/24 10:00 81 MG Mexiletine HCl 150 mg TID GT 10/08/24 22:00 10/21/24 22:23 150 MG Acetaminophen 500 mg Q6HP PRN PO 10/08/24 22:30 10/19/24 03:18 500 MG Enteral Nutritional Formula 1,000 ml 55ML/HR GT 10/09/24 18:45 10/18/24 03:07 1,000 ML Phenylephrine HCl 80 mg/Sodium Chloride 250 ml @ 7.5 mls/hr Q24H IV 10/10/24 09:30 10/19/24 21:57 15 MLS/HR Furosemide 20 mg BIDD IV 10/12/24 18:00 10/21/24 17:45 20 MG Esmolol HCl 250 ml @ 0 mls/hr Q0M IV 10/14/24 10:45 Amino Acids 0 ml @ 0 mls/hr PER PHARMACY IV 10/15/24 18:45 Diagnostic Test (Pha) 1 strip Q6HR 10/16/24 12:00 10/21/24 18:45 1 STRIP Insulin Human Regular FOLLOW SLIDING SCALE Q6HR SC 10/16/24 12:00 10/21/24 18:46 4 UNITS Dextrose 50 ml UD IV 10/16/24 09:30 Amino Acids/ Electrolytes/ Dextrose 1,000 ml @ 41 mls/hr DAILY@2200 IV 10/16/24 22:00 10/21/24 22:22 41 MLS/HR Fentanyl Citrate 250 ml @ 2.5 mls/hr Q24H IV 10/16/24 13:00 10/21/24 00:03 12.5 MLS/HR Polyethylene Glycol 17 gm DAILYPRN PRN GT 10/17/24 16:45 10/19/24 05:54 17 GM Doxycycline Monohydrate 100 mg Q12HR NG 10/18/24 10:00 10/21/24 22:23 100 MG Warfarin Sodium 2 mg DAILY@17 GT 10/19/24 17:00 10/21/24 17:39 2 MG Piperacillin Sod/ Tazobactam Sod 100 ml @ 25 mls/hr Q8HR IV 10/19/24 14:00 10/21/24 22:23 25 MLS/HR Hydrocortisone Sodium Succinate 50 mg Q6HR IV 10/19/24 18:00 10/21/24 17:46 50 MG Vancomycin HCl 0 ml @ 0 mls/hr UD IV 10/19/24 14:00 Cancel Vasopressin 20 units/Sodium Chloride 100 ml @ 9 mls/hr Q11H7M IV 10/19/24 15:45 Amino Acid Protein 30 ml DAILY GT 10/22/24 10:00 Metoclopramide HCl 5 mg Q6HR IV 10/21/24 18:00 objective Gen.: Patient lying in bed in medical ICU. Sedated, intubated on mechanical ventilator. Head: Normocephalic, atraumatic. Eyes: PERRLA. Ears: Normal external anatomy. Throat: Endotracheal tube and orogastric tube in place. Neck: Supple, trachea midline. Chest: Transmitted breath sounds bilaterally. Decreased air entry bilaterally. No wheezing. Bibasilar crackles. Cardiovascular: Positive S1, positive S2. Regular rate and rhythm. Abdomen: Positive bowel sounds in all 4 quadrants. Soft, nontender, nondistended. : Cutler in place. Normal external genitalia. Rectal: Deferred. Skin: Warm, dry. Intact. Extremities: 2+ radial pulses bilaterally. No lower extremity edema. Neuro: Sedated. laboratory and microbiology Laboratory Tests 10/21/24 10:30 10/21/24 09:40 10/20/24 03:13 Test 10/21/24 09:40 Range/Units Serum Glucose 148 H 74-106 mg/dL Assessment/Plan Impression: Acute hypoxic respiratory failure On mechanical ventilator s/p cardiac arrest Ventricular tachycardia CPR <5 min Elevated troponin Atelectasis Events: Pt seen and examined in ICU On mechanical ventilation AC mode with RR 18, VT 450, PEEP 5, FiO2 30% ABG reviewed, compensated CXR on 10/20 demonstrated worsening mixed opacities in the right lower lung. Devices in place. Sedated on Versed, Fentanyl On pressors for hemodynamic support On Stone-Synephrine 25 mcg/min Titrate to keep mean arterial pressure greater than 65 mmHg. Off vasopressin Improving pressor requirements Continue antibiotics Monitor blood pressure d/t hypotension Accu-Cheks, ISS. Cardiology recommendations appreciated Continue diuresis with Lasix as tolerated Monitor renal function Monitor electrolytes. Supplement as necessary. Magnesium supplementation Clinimix for nutritional support Labs and imaging reviewed. Plan: s/p intubation on mechanical ventilator. Titrate FIO2 to keep O2 saturation above 90%. VAP bundle. Daily ABG and CXR while intubated Sedate for ventilator synchrony Pressors as necessary for hemodynamic support. Titrate to keep MAP greater than 65 mmHg. SBT/CORINE. Pressure support 09/01, extubate when ready OK to use Precedex Patient is s/p pacemaker Follow up Cardiology recs Continue antibiotics. F/u cultures. Monitor labs Monitor renal function Monitor electrolytes. Supplement as necessary. Monitor ins and outs. F/u Cardiology recs. DVT prophylaxis. Prognosis: Poor given patient's multiple co-morbidities. Condition: Critical Rest of plan per hospitalist and other consultants. A total of 35 minutes of critical care time was spent reviewing the patient record, examining the patient, making a diagnostic and therapeutic plan, discussing this plan with the medical personnel, following up on diagnostic studies and following the patient for clinical stability excluding any and all procedures. At least 50% of this time was spent in direct, [id number] contact. Thank you, YURI Gomez, for allowing me to participate in this patient's care. Further recommendations will depend on the patient's clinical course. Please do not hesitate to contact me if you have any questions or concerns. This medical document was created using an electronic medical record system with Power[employer] dictation system. Although these documentations are being carefully reviewed, there may still be some phonetic and typographical changes. The errors are purely typographical, due to imperfection on the software program, and do not reflect any compromise in the patient's medical care. Dietary Evaluation Review Comments: 1) TF Jevity 1.2Cal @ 55 ml/hr. x 24hr along with Pro-stat 1 pk daily. Start @ 20ml/hr, increase 10ml/hr Q4H until goal is reached. TF @ goal volume provides 1684 kcal (100% energy needs), 88 gm protein (100% protein needs), 1065 ml free water. 2) Water flush 100ml Q4H if allowed, adjust PRN 3) Advance to cardiac diet as medically feasible 4) Monitor NPO status, lab values, wt trend, I/O Expected Outcomes/Goals: To meet >75% estimated needs within 7 days Lab values to improve Fu 2-3 days Plan discussed with: Other (CEE Munson) Critical Care Time(min): 35 KENNY FROST MD Oct 21, 2024 22:58
[2024-10-22] VITALS (107 sets, daily range): BP systolic 84–110; BP diastolic 39–66; PULSE 59–95; RESP 16–40; TEMP 79.5–99; O2SAT 93–100
[2024-10-22 04:29] LABS: Hemoglobin 7.5 g/dL (12.2-16.2); Mean Corpuscular Volume 96.0 fL (80.0-100.0)
[2024-10-22 04:31] LABS: Hematocrit 22.5 % (36.0-46.0); Mean Corpuscular Hemoglobin 31.8 pg (28.0-32.0)
[2024-10-22 04:44] LABS: Albumin 3.6 g/dL (3.2-4.8); Alkaline Phosphatase 99 U/L (46-116); Anion Gap 13 (5-15); BUN/Creatinine Ratio 30.7 (10.0-20.0); Bilirubin, Total 0.4 mg/dL (0.2-1.0); Magnesium 2.3 mg/dL (1.6-2.6); Potassium 4.2 mmol/L (3.5-5.1); Sodium 140 mmol/L (136-145); Total Protein 6.5 g/dL (5.7-8.2)
[2024-10-22 04:45] LABS: Alanine Aminotransferase 49 U/L (7-40); Blood Urea Nitrogen 27 mg/dL (9-23); Calcium 8.5 mg/dL (8.7-10.4); Carbon Dioxide 19 mmol/L (20-31); Chloride 108 mmol/L (98-107); Glucose 125 mg/dL (74-106)
[2024-10-22 04:50] LABS: INR 1.36 (0.9-1.15); Prothrombin Time 14.0 sec (9.3-11.8)
[2024-10-22 05:14] LABS: Total Cells Counted 100.0 (100)
[2024-10-22 06:42] LABS: Base Excess -3.6 mmol/L (-2.0-3.0)
--- NOTE | 2024-10-22 07:49 | ECG ---
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
--- NOTE | 2024-10-22 08:44 | DVH ---
INDICATION: INTUBATED TECHNIQUE: 1 view COMPARISON: XY CHEST XRAY 1 VIEW on DOS: 10/20/24, XY CHEST XRAY 1 VIEW on DOS: 10/19/24, XY CHEST PORT ABLE on DOS: 10/18/24, XY CHEST PORTABLE on DOS: 10/17/24, XY CHEST PORTABLE on DOS: 10/15/24, XY CHEST XRAY 1 VIEW on DOS: 10/20/24 FINDINGS: Lines and Tubes: Unchanged endotracheal tube, enteric tube, right IJ catheter, and implanted cardiac device. External defibrillator pads. Lungs: Worsening of mixed interstitial and alveolar opacities in the right lower lung. The left lower lung is obscured with similar appearing airspace disease. Pleura: No effusion or pneumothorax. Cardiomediastinal contours: Unchanged. Other: Unchanged. IMPRESSION: 1. Worsening mixed opacities in the right lower lung. No other significant change from the previous study. Stable support devices.
--- NOTE | 2024-10-22 08:45 | DVHPN2 ---
Progress Note - Dictate Date Seen: Oct 22, 2024 Has the PT tested + for MRSA If YES, has PT been informed?: No Medical Necessity Reason Pt with a Central, PICC or Fol: Yes The following are medically ne: Cutler Catheter Reason for cutler catheter: Strict I&O vital signs Vital Sign Date Time Temp Pulse Resp B/P (MAP) Pulse Ox O2 Delivery O2 Flow Rate FiO2 10/22/24 07:59 59 18 103/58 (73) 100 30 10/22/24 07:30 Mechanical Ventilator+ 10/22/24 07:15 79.5 175.1 Total Intake and Output 10/21/24 10/21/24 10/22/24 15:00 23:00 07:00 Intake Total 648.313 ml 1166.691 ml 757.0 ml Output Total 800 ml 1350 ml Balance 648.313 ml 366.691 ml -593.0 ml medications Current Medications Medications Dose Ordered Sig/Liliam Route Start Time Stop Time Status Last Admin Dose Admin Midazolam HCl 50 ml @ 1 mls/hr Q24H IV 10/07/24 04:45 10/21/24 07:28 4 MLS/HR Ondansetron HCl 4 mg Q4HP PRN IV 10/07/24 10:00 Nitroglycerin 0.4 mg Q5MINP PRN SL 10/07/24 10:00 Pantoprazole Sodium 40 mg DAILY IV 10/07/24 10:00 10/21/24 10:57 40 MG Aspirin 81 mg DAILY PO 10/08/24 10:00 10/20/24 10:00 81 MG Mexiletine HCl 150 mg TID GT 10/08/24 22:00 10/22/24 05:58 150 MG Acetaminophen 500 mg Q6HP PRN PO 10/08/24 22:30 10/19/24 03:18 500 MG Enteral Nutritional Formula 1,000 ml 55ML/HR GT 10/09/24 18:45 10/18/24 03:07 1,000 ML Phenylephrine HCl 80 mg/Sodium Chloride 250 ml @ 7.5 mls/hr Q24H IV 10/10/24 09:30 10/19/24 21:57 15 MLS/HR Furosemide 20 mg BIDD IV 10/12/24 18:00 10/22/24 05:57 20 MG Esmolol HCl 250 ml @ 0 mls/hr Q0M IV 10/14/24 10:45 Amino Acids 0 ml @ 0 mls/hr PER PHARMACY IV 10/15/24 18:45 Diagnostic Test (Pha) 1 strip Q6HR 10/16/24 12:00 10/22/24 05:58 1 STRIP Insulin Human Regular FOLLOW SLIDING SCALE Q6HR SC 10/16/24 12:00 10/22/24 00:08 2 UNITS Dextrose 50 ml UD IV 10/16/24 09:30 Amino Acids/ Electrolytes/ Dextrose 1,000 ml @ 41 mls/hr DAILY@2200 IV 10/16/24 22:00 10/21/24 22:22 41 MLS/HR Fentanyl Citrate 250 ml @ 2.5 mls/hr Q24H IV 10/16/24 13:00 10/22/24 05:03 5 MLS/HR Polyethylene Glycol 17 gm DAILYPRN PRN GT 10/17/24 16:45 10/19/24 05:54 17 GM Doxycycline Monohydrate 100 mg Q12HR NG 10/18/24 10:00 10/21/24 22:23 100 MG Warfarin Sodium 2 mg DAILY@17 GT 10/19/24 17:00 10/21/24 17:39 2 MG Piperacillin Sod/ Tazobactam Sod 100 ml @ 25 mls/hr Q8HR IV 10/19/24 14:00 10/22/24 05:58 25 MLS/HR Hydrocortisone Sodium Succinate 50 mg Q6HR IV 10/19/24 18:00 10/22/24 05:58 50 MG Vancomycin HCl 0 ml @ 0 mls/hr UD IV 10/19/24 14:00 Cancel Vasopressin 20 units/Sodium Chloride 100 ml @ 9 mls/hr Q11H7M IV 10/19/24 15:45 Amino Acid Protein 30 ml DAILY GT 10/22/24 10:00 Metoclopramide HCl 5 mg Q6HR IV 10/21/24 18:00 10/22/24 05:58 5 MG laboratory and microbiology Laboratory Tests 10/22/24 03:25 Test 10/22/24 03:25 Range/Units Serum Glucose 125 H 74-106 mg/dL Assessment/Plan Patient is a 54-year-old female who was brought to the hospital for witnessed syncope. She is intubated and is being managed in ICU. Information was obtained by reviewing the chart and communicating with patient's son (over the phone). Family recognized witnessed syncope and started CPR and called EMS. Reportedly, EMS found the patient in ventricular fibrillation and shocked the patient and brought the patient to the hospital. Patient was intubated in emergency room and transferred to ICU. Patient was on amiodarone drip. Later the patient had ventricular tachycardia (Systane). High sensitive troponin had been minimally/flatly elevated. Presentation was not in favor of acute coronary syndrome. Cardiology is involved for cardiac aspects of care. Intubated. Noncommunicative. No JVD. Mucosa pale. No carotid bruit. Scattered rhonchi in the lungs is heard. Cardiac: Regular, no thrill. Systolic murmur 2/6 in apex is heard. Abdomen is soft. No edema in extremities. Past medical history as per son: Congenital heart disease, status post bypass WBC: 14.5 - 11.9 - 18.8 - 20.0 - 21.2 - 14.3 - 10.3 - 8.9 - 9.2 - 11.1 - 12.1 - 10.8 - 12.0 - 9.9 - 15.4 - 14.8 - 12.1 - 10.5 Hemoglobin: 10.1 - 9.6 - 9.2 - 8.8 - 8.7 - 8.0 - 8.3 - 8.5 - 7.8 - 10.2 - 10.7 - 9.9 - 9.7 - 9.3 - 9.3 - 8.6 - 8.1 - 7.4 - 7.5 Creatinine: 0.95 - 0.93 - 0.87 - 0.83 - 0.83 - 0.76 - 0.68 - 0.72 - 0.79 - 0.76 - 0.80 - 0.84 - 0.61 - 0.65 - 0.74 - 0.64 - 0.73 - 0.82 - 0.88 Potassium: 3.4 - 4.0 - 4.6 - 3.5 - 3.3 - 4.1 - 3.7 - 3.2 - 3.7 - 4.0 - 3.2 - 3.4 - 3.9 - 4.2 - 3.3 - 3.8 - 3.6 - 3.4 - 4.2 - 3.8 - 4.5 - 4.1 - 3.5 - 4.2 Magnesium: 2.0 - 1.6 - 2.0 - 3.0 - 1.5 - 1.9 - 2.1 - 1.8 - 2.0 - 1.9 - 1.9 - 2.6 - 2.0 - 1.8 - 1.6 - 2.0 - 2.2 - 1.9 - 2.3 Troponin (high sensitive): 141 - 138 - 117 BNP: 457.16 AST/ALT: 32/11 - 19/13 - 538/168 - 293/152 - 131/130 - 78/94 - 68/74 - 48/57 - 27/38 - 15/23 - 20/18 - 23/17 - 29/16 - 27/13 - 34/17 - 73/49 Digoxin level: 2.83 - 1.25 - 0.98 UDS: non-revealing Chest x-ray revealed: Lines and Tubes: Endotracheal tube tip projects approximately 1.4 cm above the level of the tyler. Enteric catheter courses below the lateral of the diaphragm and terminates beyond the inferior margin of the image. Right internal jugular central venous catheter terminates within the distal superior vena cava. Lungs: Moderate diffuse increased prominence of the pulmonary vasculature without evidence of focal consolidation. Pleura: No effusion. No pneumothorax. Cardiomediastinal contours: Cardiomegaly. Bones: Unremarkable IMPRESSION: 1. Cardiomegaly and diffuse increased prominence of the pulmonary vasculature. 2. Lines and tubes as above. Repeat chest x-ray revealed: IMPRESSION: 1. Endotracheal tube tip 1.6 cm above the tyler; consider 2 cm retraction 2. Mild pulmonary vascular congestion. Moderate cardiomegaly. Repeat chest xry revealed: IMPRESSION: Endotracheal tube tip 1.6 cm above the tyler; consider 2 cm retraction Mild pulmonary vascular congestion. Moderate cardiomegaly. Repeat chest xry revealed: IMPRESSION: 1. Stable cardiomegaly, small left pleural effusion and mild diffuse increased prominence of the pulmonary vasculature. 2. Repositioned endotracheal tube as above. Remaining lines and tubes unchanged. Repeat chest xry revealed: IMPRESSION: 1. Cardiomegaly, stable diffuse increased prominence of the pulmonary vasculature and small bilateral pleural effusions. 2. Slight interval advancement of endotracheal tube as above. Remaining lines and tubes unchanged. Repeat chest xry revealed: IMPRESSION: 1. Slight interval decrease in diffuse increased prominence of the pulmonary vasculature. 2. Stable cardiomegaly and small left pleural effusion. 3. Lines and tubes unchanged. Repeat chest xry revealed: IMPRESSION: 1. Cardiomegaly and small left pleural effusion. 2. Lines and tubes unchanged. Repeat chest xry revealed: IMPRESSION: Stable lines and tubes. Similar lung aeration. Repeat chest xry revealed: IMPRESSION: Cardiomegaly and small left pleural effusion. Lines and tubes unchanged. Repeat chest xry revealed: IMPRESSION: Placement of a cardiac pacer, no pneumothorax is seen. Stable lines and tubes. Repeat chest xry revealed: IMPRESSION: 1. Worsening mixed opacities in the right lower lung. No other significant change from the previous study. Stable support devices. KUB revealed: IMPRESSION: Nonobstructive bowel gas pattern. Nasogastric tube tip in the stomach. Large stool burden. Left upper ext arterial duplex: IMPRESSION: No hemodynamically significant stenosis based on peak systolic velocity criteria. Left lower ext arterial duplex: IMPRESSION: There is no evidence for peripheral vascular insufficiency in the left lower extremity. No significant focal stenosis is identified. Liver Ultrasound revealed: Hepatic steatosis. Hepatomegaly. Cholelithiasis. CT of the head revealed: IMPRESSION: No acute intracranial abnormality. Repeat CT of head revealed: IMPRESSION: No acute intracranial abnormality. Echocardiogram reported: lvef 15-20% dilated LV severe global dysfunction mild RV dysfunction biatrial enlargement mild moderate MAC, moderate mitral regurg mild to moderate aortic regug (images of echo reviewed and questioned presence of mitral ring and also some component (moderate of Mitral stenosis) EKG revealed sinus rhythm Telemetry revealed occasions of atrial fibrillation. There was occasional sustained ventricular tachycardia. EMS tele monitor revealed ventricular fibrillation for which the patient was shocked. Has remained sinus rhythm. Later with A-fib with MVR LHC revealed: Patent RICHMOND to LAD; Patent SVG to obtuse marginal; LVEF of 20% with increased EDP; Proximal disease in LAD/LCX RICHIE was performed: Consistent with severely reduced LVEF. Consistent with previously implanted Mitral ring, Up to moderate Mitral stenosis/Mitral Regurgitation and also Moderate Aortic insufficiency. Patient is a 54-year-old female who presented with witnessed syncope. She was found to have ventricular fibrillation for which was shocked. Later had repeated episode of sustained ventricular tachycardia. Patient has been kept in ICU. Does have baseline history of coronary artery disease for which has had bypass surgery. Left heart catheterization was performed which revealed patent RICHMOND and patent SVG. ACS is not considered at this point. It is of note that the patient's echocardiogram reveals significantly use systolic function. Valvular heart disease is considered. Findings are in favor of previously implanted mitral ring. By reviewing the echo images, component of up to moderate mitral stenosis could not be ruled out. LHC was performed that ruled out any active specific ischemia as an etiology for presentation. Is off Amiodarone for abnormal LFT. Being followed by Nephrology / Pulmonary / Neurology / GI ID. Tele has remained sinus rhythm. Had episode of a-fib with RVR. Was loaded with Digoxin. Dig level was performed at wrong timing (only 5 hours after the last Dig given). Dig toxicity is not considered. Patient is back to normal sinus rhythm. Has good kidney function. Repeat Dig level is acceptable level. s/p ICD implantation by EP Syncope V-fib s/p shock Sustained V-tach Paroxysmal A-fib VHD, s/p Mitral ring Systolic heart failure Abnormal LFT, resolved s/p ICD (Biotronik) implantation by EP (Dr Armstrong) Cardiac suggestion for management: Manage in ICU Follow up electrolytes and kidney function test and correct abnormalities Full anticoagulation (a-fib with high CHADS-Vasc score). s/p recent ICD implantation and as per EP only on low dose coumadin. After a week to restart full anticoagulation Off Amio drip (worsened LFT) (personally discussed with EP: Dr Armstrong who advised to stop / not to restart Amiodarone) On Mexiletine If need for pressure support: use Phenyl Ephrine / vasopressin, keep MAP above 65 May consider Esmolol for PVC/Vtach s/p ICD (Biotronik) implantation by EP A/C: On Coumadin (as per EP verbal suggestion): check INR daily Pulmonary Follow up Provide previous medical records from reaching out to previous hospitals in [facility]... Further evaluation and management depends on the above and clinical course. A total of 75 minutes was spent reviewing the patient record, examining the patient, making a diagnostic and therapeutic plan, discussing this plan with medical personnel, following up on diagnostic studies and following the patient for clinical stability excluding any and all procedures. At least 50% of this time was spent in direct, [id number] contact. Thank you for allowing me to participate in this patient's care. Further recommendations will depend on patient's clinical course. Please do not hesitate to contact me if you have any questions or concerns. This medical document was created using electronic medical record system with [employer] computerized dictation system. Although this document has been carefully reviewed, there may still be some phonetic and typographical errors. These areas are purely typographical due to the imperfection of the software programs, and do not reflect any compromise in the patient's medical care. Dietary Evaluation Review Comments: 1) TF Jevity 1.2Cal @ 55 ml/hr. x 24hr along with Pro-stat 1 pk daily. Start @ 20ml/hr, increase 10ml/hr Q4H until goal is reached. TF @ goal volume provides 1684 kcal (100% energy needs), 88 gm protein (100% protein needs), 1065 ml free water. 2) Water flush 100ml Q4H if allowed, adjust PRN 3) Advance to cardiac diet as medically feasible 4) Monitor NPO status, lab values, wt trend, I/O Expected Outcomes/Goals: To meet >75% estimated needs within 7 days Lab values to improve Fu 2-3 days Plan discussed with: Other (nurse) CORDELL VERA MD Oct 22, 2024 08:45
[2024-10-22] MEDS: Pro-Stat SF 30ml Vanilla GT SCH (10:03)
--- NOTE | 2024-10-22 11:24 | DVHPN2 ---
Progress Note - Dictate Date Seen: Oct 22, 2024 Has the PT tested + for MRSA If YES, has PT been informed?: No Medical Necessity Reason Pt with a Central, PICC or Fol: Yes The following are medically ne: Cutler Catheter Reason for cutler catheter: Strict I&O Subjective Ms. Smith is a 54 years old female who was brought to the [facility] on 10/07/2024 with a chief complaint of cardiopulmonary arrest/status post CPR. I have seen and examined the patient, I have discussed with her nurse, she is intubated, awake, on CPAP, the vital looks okay with current treatment, but she does not follow verbal commands, or move her extremities She received pacemaker insertion on 10/17/2024 Dopa, 2 mcg/minute, Levo 10 mcg/minute Blood culture, 10/09/2024: No growth Blood culture, 10/19/2024: UDS, 10/07/2024: Negative Urinalysis, 10/07/2024: Leukocyte esterase: Negative WBC/HB/PLT/MCV, 10/09/2024: 20/8.8/219/94.6, 10/10/2024: 21.2/8.7/232/92.2 PT/INR/PTT, 10/08/2024: 12.4/1.19/72.7, 10/09/2024: 13.1/1.26/68.9, 10/10/2024: 14.4/2/1.38/35.3 CMP, 10/08/2024: Unremarkable Troponin one high sensitivity, 10/07/2024: 141, 138, 117 TBI/AST/ALT/AP, 10/10/2024: 0.5/538/168/144, 10/11/2024: 0.6/293/199/152, 10/14/2024: 0.8/68/74/124 TG/HDL/LDL/HDL, 10/07/24: 71/66/31/21 Echocardiogram, 10/07/2024: lvef 15-20% dilated LV severe global dysfunction mild RV dysfunction biatrial enlargement mild moderate MAC, moderate mitral regurg mild to moderate aortic regug RICHIE, 10/08/2024: 1. Left ventricle: Dilated LV was seen. LVEF was 25%. There was diffuse hypokinesis of left ventricle. 2. Right ventricle: RV was mildly dilated. 3. Left atrium: LA enlarged 4. Right atrium: RA was enlarged. 5. Mitral valve: Mitral was thickened with reduced opening. Moderate Mitral regurgitation was seen. Planinomentry of valve (TTE images also obtained) revealed MVA of 2.1 cm. Mean pressure gradient (obtained from limited TTE images) was 5. Images are consistent with previously implanted Ring in Mitral position. Consistent with up to Moderate Mitral stenosis. . There was no vegetation 6. Left atrial appendage: No evidence of thrombus. 7. Aortic valve: Trileaflet valve. No stenosis. Up to moderate Aortic Insufficiency was seen. There was no vegetation 8. Pulmonic valve: Trivial pulmonic insufficiency. No significant stenosis. 9. Tricuspid valve: Mild tricuspid regurgitation. There was no vegetation 10. Interatrial septum: Negative color flow for right to left shunt was observed. Bubble study was performed: negative for shunt 11. Pericardium: No significant effusion. 12. Thoracic aorta: No significant plaquing. Chest x-ray, 10/27/2024: 1. Cardiomegaly, stable diffuse increased prominence of the pulmonary vasculature and small bilateral pleural effusions. 2. Slight interval advancement of endotracheal tube as above. Remaining lines and tubes unchanged. CT head, 10/07/2024: No acute intracranial abnormality General: the patient is well developed and nourished. No acute distress. Intubated CT head, 10/07/2024: No acute intracranial abnormality. CT head, 10/11/2024: No acute intracranial abnormality vital signs Vital Sign Date Time Temp Pulse Resp B/P (MAP) Pulse Ox O2 Delivery O2 Flow Rate FiO2 10/22/24 09:38 72 10/22/24 09:38 18 101/58 (72) 99 30 10/22/24 09:30 Mechanical Ventilator+ 10/22/24 09:30 97.9 208.2 Total Intake and Output 10/21/24 10/21/24 10/22/24 15:00 23:00 07:00 Intake Total 648.313 ml 1166.691 ml 825.5 ml Output Total 800 ml 1350 ml Balance 648.313 ml 366.691 ml -524.5 ml medications Current Medications Medications Dose Ordered Sig/Liliam Route Start Time Stop Time Status Last Admin Dose Admin Midazolam HCl 50 ml @ 1 mls/hr Q24H IV 10/07/24 04:45 10/21/24 07:28 4 MLS/HR Ondansetron HCl 4 mg Q4HP PRN IV 10/07/24 10:00 Nitroglycerin 0.4 mg Q5MINP PRN SL 10/07/24 10:00 Pantoprazole Sodium 40 mg DAILY IV 10/07/24 10:00 10/22/24 10:02 40 MG Aspirin 81 mg DAILY PO 10/08/24 10:00 10/22/24 10:03 81 MG Mexiletine HCl 150 mg TID GT 10/08/24 22:00 10/22/24 05:58 150 MG Acetaminophen 500 mg Q6HP PRN PO 10/08/24 22:30 10/19/24 03:18 500 MG Enteral Nutritional Formula 1,000 ml 55ML/HR GT 10/09/24 18:45 10/18/24 03:07 1,000 ML Phenylephrine HCl 80 mg/Sodium Chloride 250 ml @ 7.5 mls/hr Q24H IV 10/10/24 09:30 10/19/24 21:57 15 MLS/HR Furosemide 20 mg BIDD IV 10/12/24 18:00 10/22/24 05:57 20 MG Esmolol HCl 250 ml @ 0 mls/hr Q0M IV 10/14/24 10:45 Amino Acids 0 ml @ 0 mls/hr PER PHARMACY IV 10/15/24 18:45 Diagnostic Test (Pha) 1 strip Q6HR 10/16/24 12:00 10/22/24 05:58 1 STRIP Insulin Human Regular FOLLOW SLIDING SCALE Q6HR SC 10/16/24 12:00 10/22/24 00:08 2 UNITS Dextrose 50 ml UD IV 10/16/24 09:30 Amino Acids/ Electrolytes/ Dextrose 1,000 ml @ 41 mls/hr DAILY@2200 IV 10/16/24 22:00 10/21/24 22:22 41 MLS/HR Fentanyl Citrate 250 ml @ 2.5 mls/hr Q24H IV 10/16/24 13:00 10/22/24 05:03 5 MLS/HR Polyethylene Glycol 17 gm DAILYPRN PRN GT 10/17/24 16:45 10/19/24 05:54 17 GM Doxycycline Monohydrate 100 mg Q12HR NG 10/18/24 10:00 10/22/24 10:03 100 MG Warfarin Sodium 2 mg DAILY@17 GT 10/19/24 17:00 10/21/24 17:39 2 MG Piperacillin Sod/ Tazobactam Sod 100 ml @ 25 mls/hr Q8HR IV 10/19/24 14:00 10/22/24 05:58 25 MLS/HR Hydrocortisone Sodium Succinate 50 mg Q6HR IV 10/19/24 18:00 10/22/24 05:58 50 MG Vancomycin HCl 0 ml @ 0 mls/hr UD IV 10/19/24 14:00 Cancel Vasopressin 20 units/Sodium Chloride 100 ml @ 9 mls/hr Q11H7M IV 10/19/24 15:45 Amino Acid Protein 30 ml DAILY GT 10/22/24 10:00 10/22/24 10:03 30 ML Metoclopramide HCl 5 mg Q6HR IV 10/21/24 18:00 10/22/24 05:58 5 MG objective The patient is well-nourished and well-developed with no distress. The patient is intubated MENTAL STATUS: Subjective CRANIAL NERVES: Pupils are equal, round and reactive.There are corneal reflexes and doll's eyes phenomenon. No signs of facial weakness. There are gagging or coughing reflexes SENSATION: Responses to pain stimuli. MOTOR: Normal tone in the upper and lower extremity. Normal muscle bulk. No fasciculations. No spontaneous movement. REFLEXES: Deep tendon reflexes are symmetrical. No pathological reflexes. CEREBELLAR/COORDINATION: Deferred GAIT/STATION: deferred. laboratory and microbiology Laboratory Tests 10/22/24 03:25 Test 10/22/24 03:25 Range/Units Serum Glucose 125 H 74-106 mg/dL Problem List Cardiopulmonary arrest Status post CPR Metabolic encephalopathy Hypoxic encephalopathy Congestive heart failure Leukocytosis/sepsis/septic shock Respiratory failure Elevated liver function tests S/P pacemaker insertion on 10/17/2024 Assessment/Plan Monitoring Supportive treatment ICU care Stabilize vitals Respiratory support/vent management Hold off Lipitor (elevated liver function tests), LDL (31) (home medications included Lipitor 40 mg daily) DVT prophylaxis GI prophylaxis Cardiology on case Pulmonology on case Nephrology on case Consult GI Re: Elevated liver function tests Need more history Extubation when she is ready This medical document was created using an electronic medical record system with [employer] dictation system. Although this document has been carefully reviewed, there may still be some phonetic and typographical errors. These areas are purely typographical due to imperfections of the software programs, and do not reflect any compromise in the patient's medical care. Prognosis Guarded Dietary Evaluation Review Comments: 1) TF Jevity 1.2Cal @ 55 ml/hr. x 24hr along with Pro-stat 1 pk daily. Start @ 20ml/hr, increase 10ml/hr Q4H until goal is reached. TF @ goal volume provides 1684 kcal (100% energy needs), 88 gm protein (100% protein needs), 1065 ml free water. 2) Water flush 100ml Q4H if allowed, adjust PRN 3) Advance to cardiac diet as medically feasible 4) Monitor NPO status, lab values, wt trend, I/O Expected Outcomes/Goals: To meet >75% estimated needs within 7 days Lab values to improve Fu 2-3 days Plan discussed with: Other CAROLINE ROBB MD Oct 22, 2024 11:24
--- NOTE | 2024-10-22 13:47 | DVHPN2 ---
Progress Note - Dictate Date Seen: Oct 22, 2024 Has the PT tested + for MRSA If YES, has PT been informed?: No Medical Necessity Reason Pt with a Central, PICC or Fol: Yes The following are medically ne: Cutler Catheter Reason for cutler catheter: Strict I&O vital signs Vital Sign Date Time Temp Pulse Resp B/P (MAP) Pulse Ox O2 Delivery O2 Flow Rate FiO2 10/22/24 12:22 72 10/22/24 12:22 18 100 Mechanical Ventilator+ 30 30 10/22/24 12:15 98.1 102/59 (73) 208.6 Total Intake and Output 10/21/24 10/21/24 10/22/24 15:00 23:00 07:00 Intake Total 648.313 ml 1166.691 ml 825.5 ml Output Total 800 ml 1350 ml Balance 648.313 ml 366.691 ml -524.5 ml medications Current Medications Medications Dose Ordered Sig/Liliam Route Start Time Stop Time Status Last Admin Dose Admin Midazolam HCl 50 ml @ 1 mls/hr Q24H IV 10/07/24 04:45 10/21/24 07:28 4 MLS/HR Ondansetron HCl 4 mg Q4HP PRN IV 10/07/24 10:00 Nitroglycerin 0.4 mg Q5MINP PRN SL 10/07/24 10:00 Pantoprazole Sodium 40 mg DAILY IV 10/07/24 10:00 10/22/24 10:02 40 MG Aspirin 81 mg DAILY PO 10/08/24 10:00 10/22/24 10:03 81 MG Mexiletine HCl 150 mg TID GT 10/08/24 22:00 10/22/24 05:58 150 MG Acetaminophen 500 mg Q6HP PRN PO 10/08/24 22:30 10/19/24 03:18 500 MG Enteral Nutritional Formula 1,000 ml 55ML/HR GT 10/09/24 18:45 10/18/24 03:07 1,000 ML Phenylephrine HCl 80 mg/Sodium Chloride 250 ml @ 7.5 mls/hr Q24H IV 10/10/24 09:30 10/19/24 21:57 15 MLS/HR Furosemide 20 mg BIDD IV 10/12/24 18:00 10/22/24 05:57 20 MG Esmolol HCl 250 ml @ 0 mls/hr Q0M IV 10/14/24 10:45 Amino Acids 0 ml @ 0 mls/hr PER PHARMACY IV 10/15/24 18:45 Diagnostic Test (Pha) 1 strip Q6HR 10/16/24 12:00 10/22/24 12:12 1 STRIP Insulin Human Regular FOLLOW SLIDING SCALE Q6HR SC 10/16/24 12:00 10/22/24 00:08 2 UNITS Dextrose 50 ml UD IV 10/16/24 09:30 Amino Acids/ Electrolytes/ Dextrose 1,000 ml @ 41 mls/hr DAILY@2200 IV 10/16/24 22:00 10/21/24 22:22 41 MLS/HR Fentanyl Citrate 250 ml @ 2.5 mls/hr Q24H IV 10/16/24 13:00 10/22/24 05:03 5 MLS/HR Polyethylene Glycol 17 gm DAILYPRN PRN GT 10/17/24 16:45 10/19/24 05:54 17 GM Doxycycline Monohydrate 100 mg Q12HR NG 10/18/24 10:00 10/22/24 10:03 100 MG Warfarin Sodium 2 mg DAILY@17 GT 10/19/24 17:00 10/21/24 17:39 2 MG Piperacillin Sod/ Tazobactam Sod 100 ml @ 25 mls/hr Q8HR IV 10/19/24 14:00 10/22/24 05:58 25 MLS/HR Hydrocortisone Sodium Succinate 50 mg Q6HR IV 10/19/24 18:00 10/22/24 12:16 50 MG Vancomycin HCl 0 ml @ 0 mls/hr UD IV 10/19/24 14:00 Cancel Vasopressin 20 units/Sodium Chloride 100 ml @ 9 mls/hr Q11H7M IV 10/19/24 15:45 Amino Acid Protein 30 ml DAILY GT 10/22/24 10:00 10/22/24 10:03 30 ML Metoclopramide HCl 5 mg Q6HR IV 10/21/24 18:00 10/22/24 12:15 5 MG objective General Appearance: no distress HEENT: EOMI, PERRLA, normal external inspect of ears, no icterus, no nasal drainage Neck: no carotid bruit, no jugular venous distention (JVD), no lymphadenopathy Chest: normal thorax Respiratory: Intubated, clear to auscultation, normal air movement Cardiovascular: regular rate and rhythm, no diastolic murmur, no jugular venous distention (JVD), no rub, no systolic murmur Abdominal: soft, no hepatomegaly, no mass, no splenomegaly, no tenderness Genitourinary: grossly normal external Musculoskeletal: no joint tenderness, no swelling Extremities: normal pulses, no calf tenderness, no clubbing, no cyanosis, no edema Skin: no bruising, no jaundice, no rash Neurological: No focal deficit laboratory and microbiology Laboratory Tests 10/22/24 03:25 Test 10/22/24 03:25 Range/Units Serum Glucose 125 H 74-106 mg/dL Problem List Cardiac Arrest with Ventricular Fibrillation Assessment: Patient experienced cardiac arrest with ventricular fibrillation on 10/07/24, witnessed by family members who initiated CPR. EMS found the patient in ventricular fibrillation and administered shock therapy. Rhythm strip analysis confirmed ventricular fibrillation. Patient required intubation and sedation upon ED arrival. Currently admitted to ICU for close observation. Cardiology has been consulted and plans for AICD placement, likely on Tuesday. Infectious disease clearance has been obtained for the AICD procedure, addressing initial concerns of leukocytosis which is now improving. Status post-cardiac arrest. Plan: - Continue ICU monitoring - Proceed with AICD placement as planned (likely Tuesday), cleared by infectious disease. - Maintain intubation and sedation until AICD placement - Continue Heparin drip for paroxysmal atrial fibrillation - Continue Mexitil - DC amiodarone due to transaminitis - added esmolol drip per Cardiology for AFib and added push doses of digoxin Coronary Artery Disease Assessment: Patient with history of 2-vessel CABG (Coronary Artery Bypass Grafting). Surgical intervention previously performed to address significant coronary artery stenosis. Plan: - Continue medical management - Follow up with cardiology for ongoing coronary artery disease management Acute and Chronic Systolic Heart Failure Assessment: Patient has acute and chronic systolic heart failure with severely reduced left ventricular function. Ejection fraction is estimated at 15-20%. RICHIE findings are consistent with severely reduced left ventricular ejection fraction, previously implanted mitral ring, up to moderate mitral stenosis and regurgitation, and moderate aortic insufficiency. Plan: - Continue cardiology consultation - continue IV diuretics (IV Lasix) - Monitor renal function Acute Hypoxic Respiratory Failure Assessment: Patient is currently intubated due to acute hypoxic respiratory failure. Dr. Downey from pulmonology is managing this aspect of care. Plan: - Maintain current intubation as per pulmonology recommendation - Proceed with CPAP trials when deemed appropriate by pulmonology Transaminitis Assessment: Patient has elevated liver function tests, likely secondary to amiodarone use. Cardiology has discontinued amiodarone in response. Plan: - Monitor liver function tests - Amiodarone discontinued as per cardiology Enterobacter PNA Assessment: Sputum culture positive for Enterobacter. Plan: - Continue treatment with Eratapenem to complete 10 days regimen -Infectious disease consult Hemodynamic Support Assessment: Patient requires vasopressor support for hemodynamic stability. Plan: - Continue vasopressin - Continue neosynephrine Paroxysmal a fib -DC amiodarone -continue with heparin gtt Assessment/Plan Subjective Patient remains sedated on the ventilator. Objective Patient is currently on CPAP and sedation. Hemoglobin is 7.5. Platelet count is 150. Creatinine is stable. Patient was admitted status post cardiac arrest. Status post AICD placement. WBC count has been downtrending. Patient was tolerating tube feeding, currently on hold for CPAP. Urine culture shows yeast. Sputum culture shows many white blood cells. Plan Continue antibiotics with vancomycin and Zosyn. Add fluconazole for yeast. Monitor daily labs. Monitor EKG. patient previously had A-fib. Continue CPAP and weaning trials per pulmonary. Dietary Evaluation Review Comments: 1) TF Jevity 1.2Cal @ 55 ml/hr. x 24hr along with Pro-stat 1 pk daily. Start @ 20ml/hr, increase 10ml/hr Q4H until goal is reached. TF @ goal volume provides 1684 kcal (100% energy needs), 88 gm protein (100% protein needs), 1065 ml free water. 2) Water flush 100ml Q4H if allowed, adjust PRN 3) Advance to cardiac diet as medically feasible 4) Monitor NPO status, lab values, wt trend, I/O Expected Outcomes/Goals: To meet >75% estimated needs within 7 days Lab values to improve Fu 2-3 days Plan discussed with: BRODIE Gillis SEPARATIONS SCIENTIST Oct 22, 2024 13:47
[2024-10-22] MEDS: FLUCONAZOLE 200MG/100ML 100 ML IV SCH (14:50)
--- NOTE | 2024-10-22 21:51 | DVHPN2 ---
Progress Note - Dictate Date Seen: Oct 22, 2024 Has the PT tested + for MRSA If YES, has PT been informed?: No Medical Necessity Reason Pt with a Central, PICC or Fol: Yes The following are medically ne: Cutler Catheter Reason for cutler catheter: Strict I&O Subjective Patient seen and examined at bedside. Intubated on mechanical ventilator. Overnight events reviewed. vital signs Vital Sign Date Time Temp Pulse Resp B/P (MAP) Pulse Ox O2 Delivery O2 Flow Rate FiO2 10/22/24 20:20 94 18 94/48 (63) 99 30 10/22/24 18:08 Mechanical Ventilator+ 10/22/24 18:00 98.2 208.8 Total Intake and Output 10/21/24 10/21/24 10/22/24 15:00 23:00 07:00 Intake Total 648.313 ml 1166.691 ml 825.5 ml Output Total 800 ml 1350 ml Balance 648.313 ml 366.691 ml -524.5 ml medications Current Medications Medications Dose Ordered Sig/Liliam Route Start Time Stop Time Status Last Admin Dose Admin Midazolam HCl 50 ml @ 1 mls/hr Q24H IV 10/07/24 04:45 10/21/24 07:28 4 MLS/HR Ondansetron HCl 4 mg Q4HP PRN IV 10/07/24 10:00 Nitroglycerin 0.4 mg Q5MINP PRN SL 10/07/24 10:00 Pantoprazole Sodium 40 mg DAILY IV 10/07/24 10:00 10/22/24 10:02 40 MG Aspirin 81 mg DAILY PO 10/08/24 10:00 10/22/24 10:03 81 MG Mexiletine HCl 150 mg TID GT 10/08/24 22:00 10/22/24 21:14 150 MG Acetaminophen 500 mg Q6HP PRN PO 10/08/24 22:30 10/19/24 03:18 500 MG Enteral Nutritional Formula 1,000 ml 55ML/HR GT 10/09/24 18:45 10/22/24 18:55 1,000 ML Phenylephrine HCl 80 mg/Sodium Chloride 250 ml @ 7.5 mls/hr Q24H IV 10/10/24 09:30 10/19/24 21:57 15 MLS/HR Furosemide 20 mg BIDD IV 10/12/24 18:00 10/22/24 17:57 20 MG Esmolol HCl 250 ml @ 0 mls/hr Q0M IV 10/14/24 10:45 Amino Acids 0 ml @ 0 mls/hr PER PHARMACY IV 10/15/24 18:45 Diagnostic Test (Pha) 1 strip Q6HR 10/16/24 12:00 10/22/24 17:50 1 STRIP Insulin Human Regular FOLLOW SLIDING SCALE Q6HR SC 10/16/24 12:00 10/22/24 00:08 2 UNITS Dextrose 50 ml UD IV 10/16/24 09:30 Amino Acids/ Electrolytes/ Dextrose 1,000 ml @ 41 mls/hr DAILY@2200 IV 10/16/24 22:00 10/21/24 22:22 41 MLS/HR Fentanyl Citrate 250 ml @ 2.5 mls/hr Q24H IV 10/16/24 13:00 10/22/24 05:03 5 MLS/HR Polyethylene Glycol 17 gm DAILYPRN PRN GT 10/17/24 16:45 10/19/24 05:54 17 GM Doxycycline Monohydrate 100 mg Q12HR NG 10/18/24 10:00 10/22/24 21:13 100 MG Warfarin Sodium 2 mg DAILY@17 GT 10/19/24 17:00 10/22/24 17:56 2 MG Piperacillin Sod/ Tazobactam Sod 100 ml @ 25 mls/hr Q8HR IV 10/19/24 14:00 10/22/24 21:13 25 MLS/HR Hydrocortisone Sodium Succinate 50 mg Q6HR IV 10/19/24 18:00 10/22/24 17:51 50 MG Vancomycin HCl 0 ml @ 0 mls/hr UD IV 10/19/24 14:00 Cancel Vasopressin 20 units/Sodium Chloride 100 ml @ 9 mls/hr Q11H7M IV 10/19/24 15:45 Amino Acid Protein 30 ml DAILY GT 10/22/24 10:00 10/22/24 10:03 30 ML Metoclopramide HCl 5 mg Q6HR IV 10/21/24 18:00 10/22/24 17:50 5 MG Fluconazole 100 ml @ 100 mls/hr DAILY IV 10/22/24 14:00 10/22/24 14:50 100 MLS/HR objective Gen.: Patient lying in bed in medical ICU. Intubated on mechanical ventilator. Head: Normocephalic, atraumatic. Eyes: PERRLA. Ears: Normal external anatomy. Throat: Endotracheal tube and orogastric tube in place. Neck: Supple, trachea midline. Chest: Transmitted breath sounds bilaterally. Decreased air entry bilaterally. No wheezing. Bibasilar crackles. Cardiovascular: Positive S1, positive S2. Regular rate and rhythm. Abdomen: Positive bowel sounds in all 4 quadrants. Soft, nontender, nondistended. : Cutler in place. Normal external genitalia. Rectal: Deferred. Skin: Warm, dry. Intact. Extremities: 2+ radial pulses bilaterally. No lower extremity edema. Neuro: Off sedation laboratory and microbiology Laboratory Tests 10/22/24 03:25 Test 10/22/24 03:25 Range/Units Serum Glucose 125 H 74-106 mg/dL Assessment/Plan Impression: Acute hypoxic respiratory failure On mechanical ventilator s/p cardiac arrest Ventricular tachycardia CPR <5 min Elevated troponin Atelectasis Events: Pt seen and examined in ICU Remains on mechanical ventilation AC mode with RR 18, VT 450, PEEP 5, FiO2 30% ABG reviewed, notable for alkalemia CXR demonstrated worsening mixed opacities in the right lower lung. Devices in place. Off sedation Off pressors, hemodynamically stable Continue antibiotics Continue antifungal Monitor blood pressure Cardiology recommendations appreciated Continue diuresis with Lasix as tolerated Monitor renal function Monitor electrolytes. Supplement as necessary. Clinimix for nutritional support Patient tolerated CPAP Awaiting for mental status to improve for extubation. Labs and imaging reviewed. Plan: s/p intubation on mechanical ventilator. Titrate FIO2 to keep O2 saturation above 90%. VAP bundle. Daily ABG and CXR while intubated Off sedation Pressors as necessary for hemodynamic support. Titrate to keep MAP greater than 65 mmHg. Patient is s/p pacemaker Follow up Cardiology recs Continue antibiotics. F/u cultures. Continue antifungal Accu-Cheks, ISS PRN. Monitor labs Monitor renal function Monitor electrolytes. Supplement as necessary. Monitor ins and outs. F/u Cardiology recs. DVT prophylaxis. Prognosis: Poor given patient's multiple co-morbidities. Condition: Critical Rest of plan per hospitalist and other consultants. A total of 35 minutes of critical care time was spent reviewing the patient record, examining the patient, making a diagnostic and therapeutic plan, discussing this plan with the medical personnel, following up on diagnostic studies and following the patient for clinical stability excluding any and all procedures. At least 50% of this time was spent in direct, [id number] contact. Thank you, YURI Gomez, for allowing me to participate in this patient's care. Further recommendations will depend on the patient's clinical course. Please do not hesitate to contact me if you have any questions or concerns. This medical document was created using an electronic medical record system with [employer] dictation system. Although these documentations are being carefully reviewed, there may still be some phonetic and typographical changes. The errors are purely typographical, due to imperfection on the software program, and do not reflect any compromise in the patient's medical care. Dietary Evaluation Review Comments: 1) TF Jevity 1.2Cal @ 55 ml/hr. x 24hr along with Pro-stat 1 pk daily. Start @ 20ml/hr, increase 10ml/hr Q4H until goal is reached. TF @ goal volume provides 1684 kcal (100% energy needs), 88 gm protein (100% protein needs), 1065 ml free water. 2) Water flush 100ml Q4H if allowed, adjust PRN 3) Advance to cardiac diet as medically feasible 4) Monitor NPO status, lab values, wt trend, I/O Expected Outcomes/Goals: To meet >75% estimated needs within 7 days Lab values to improve Fu 2-3 days Plan discussed with: Other (CEE Pastor) Critical Care Time(min): 35 KENNY FROST MD Oct 22, 2024 21:51
--- NOTE | 2024-10-22 21:55 | DVHPN2 ---
Progress Note - Dictate Date Seen: Oct 22, 2024 Has the PT tested + for MRSA If YES, has PT been informed?: No Medical Necessity Reason Pt with a Central, PICC or Fol: Yes The following are medically ne: Cutler Catheter Reason for cutler catheter: Strict I&O Subjective Patient had a CPAP trial today, now back on ventilator Tube feedings residuals were less than 50, resume tube feedings tonight Liver enzymes trended slightly upwards today vital signs Vital Sign Date Time Temp Pulse Resp B/P (MAP) Pulse Ox O2 Delivery O2 Flow Rate FiO2 10/22/24 20:20 94 18 94/48 (63) 99 30 10/22/24 18:08 Mechanical Ventilator+ 10/22/24 18:00 98.2 208.8 Total Intake and Output 10/21/24 10/21/24 10/22/24 15:00 23:00 07:00 Intake Total 648.313 ml 1166.691 ml 825.5 ml Output Total 800 ml 1350 ml Balance 648.313 ml 366.691 ml -524.5 ml medications Current Medications Medications Dose Ordered Sig/Liliam Route Start Time Stop Time Status Last Admin Dose Admin Midazolam HCl 50 ml @ 1 mls/hr Q24H IV 10/07/24 04:45 10/21/24 07:28 4 MLS/HR Ondansetron HCl 4 mg Q4HP PRN IV 10/07/24 10:00 Nitroglycerin 0.4 mg Q5MINP PRN SL 10/07/24 10:00 Pantoprazole Sodium 40 mg DAILY IV 10/07/24 10:00 10/22/24 10:02 40 MG Aspirin 81 mg DAILY PO 10/08/24 10:00 10/22/24 10:03 81 MG Mexiletine HCl 150 mg TID GT 10/08/24 22:00 10/22/24 21:14 150 MG Acetaminophen 500 mg Q6HP PRN PO 10/08/24 22:30 10/19/24 03:18 500 MG Enteral Nutritional Formula 1,000 ml 55ML/HR GT 10/09/24 18:45 10/22/24 18:55 1,000 ML Phenylephrine HCl 80 mg/Sodium Chloride 250 ml @ 7.5 mls/hr Q24H IV 10/10/24 09:30 10/19/24 21:57 15 MLS/HR Furosemide 20 mg BIDD IV 10/12/24 18:00 10/22/24 17:57 20 MG Esmolol HCl 250 ml @ 0 mls/hr Q0M IV 10/14/24 10:45 Amino Acids 0 ml @ 0 mls/hr PER PHARMACY IV 10/15/24 18:45 Diagnostic Test (Pha) 1 strip Q6HR 10/16/24 12:00 10/22/24 17:50 1 STRIP Insulin Human Regular FOLLOW SLIDING SCALE Q6HR SC 10/16/24 12:00 10/22/24 00:08 2 UNITS Dextrose 50 ml UD IV 10/16/24 09:30 Amino Acids/ Electrolytes/ Dextrose 1,000 ml @ 41 mls/hr DAILY@2200 IV 10/16/24 22:00 10/21/24 22:22 41 MLS/HR Fentanyl Citrate 250 ml @ 2.5 mls/hr Q24H IV 10/16/24 13:00 10/22/24 05:03 5 MLS/HR Polyethylene Glycol 17 gm DAILYPRN PRN GT 10/17/24 16:45 10/19/24 05:54 17 GM Doxycycline Monohydrate 100 mg Q12HR NG 10/18/24 10:00 10/22/24 21:13 100 MG Warfarin Sodium 2 mg DAILY@17 GT 10/19/24 17:00 10/22/24 17:56 2 MG Piperacillin Sod/ Tazobactam Sod 100 ml @ 25 mls/hr Q8HR IV 10/19/24 14:00 10/22/24 21:13 25 MLS/HR Hydrocortisone Sodium Succinate 50 mg Q6HR IV 10/19/24 18:00 10/22/24 17:51 50 MG Vancomycin HCl 0 ml @ 0 mls/hr UD IV 10/19/24 14:00 Cancel Vasopressin 20 units/Sodium Chloride 100 ml @ 9 mls/hr Q11H7M IV 10/19/24 15:45 Amino Acid Protein 30 ml DAILY GT 10/22/24 10:00 10/22/24 10:03 30 ML Metoclopramide HCl 5 mg Q6HR IV 10/21/24 18:00 10/22/24 17:50 5 MG Fluconazole 100 ml @ 100 mls/hr DAILY IV 10/22/24 14:00 10/22/24 14:50 100 MLS/HR objective Examination: GENERAL:Normal, LUNGS:Abnormal (diminished on ventillator ), ABDOMEN:Normal, SKIN:Normal, NEURO:Normal laboratory and microbiology Laboratory Tests 10/22/24 03:25 Test 10/22/24 03:25 Range/Units Serum Glucose 125 H 74-106 mg/dL Problems(with codes): (1) Shock liver (2) Pneumonia (3) Sepsis, unspecified organism (4) Ventricular fibrillation (5) Cardiac arrest Prognosis Plan Continue to monitor liver enzymes Check JAIDEN and serum ferritin Advance tube feedings as tolerated Possible repeat CPAP trial in a.m. We will follow up patient as needed Dietary Evaluation Review Comments: 1) TF Jevity 1.2Cal @ 55 ml/hr. x 24hr along with Pro-stat 1 pk daily. Start @ 20ml/hr, increase 10ml/hr Q4H until goal is reached. TF @ goal volume provides 1684 kcal (100% energy needs), 88 gm protein (100% protein needs), 1065 ml free water. 2) Water flush 100ml Q4H if allowed, adjust PRN 3) Advance to cardiac diet as medically feasible 4) Monitor NPO status, lab values, wt trend, I/O Expected Outcomes/Goals: To meet >75% estimated needs within 7 days Lab values to improve Fu 2-3 days Plan discussed with: Other (None) CANDI BOSS MD Oct 22, 2024 21:55
[2024-10-23] VITALS (107 sets, daily range): BP systolic 92–114; BP diastolic 51–68; PULSE 62–97; RESP 17–32; TEMP 98.2–99; O2SAT 99–100
--- NOTE | 2024-10-23 03:02 | DVH ---
CHEST RADIOGRAPH Indication: INTUBATED Technique: Single frontal view of the chest was obtained Comparison: XY CHEST PORTABLE on DOS: 10/22/24, XY CHEST XRAY 1 VIEW on DOS: 10/20/24, XY CHEST XRAY 1 VIEW on DOS: 10/19/24 IMPRESSION: Heart is prominent in size with postsurgical changes, median sternotomy wires, and a single lead left cardiac defibrillator. Support lines and tubes appear unchanged in satisfactory in position. No siza ble effusion or pneumothorax. Mild pulmonary vascular congestion. No significant interval change.
[2024-10-23 04:54] LABS: Alkaline Phosphatase 92 U/L (46-116); Carbon Dioxide 21 mmol/L (20-31)
[2024-10-23 04:55] LABS: Albumin 3.4 g/dL (3.2-4.8); Anion Gap 13 (5-15); BUN/Creatinine Ratio 33.0 (10.0-20.0); Glucose 104 mg/dL (74-106); Magnesium 2.2 mg/dL (1.6-2.6); Sodium 142 mmol/L (136-145); Total Protein 6.2 g/dL (5.7-8.2)
[2024-10-23 04:56] LABS: Bilirubin, Total 0.6 mg/dL (0.2-1.0)
[2024-10-23 05:01] LABS: INR 1.46 (0.9-1.15); Partial Thromboplastin Time 24.9 SEC (24.5-34.5); Prothrombin Time 14.9 sec (9.3-11.8)
[2024-10-23 05:21] LABS: Alanine Aminotransferase 43 U/L (7-40); Blood Urea Nitrogen 34 mg/dL (9-23); Calcium 8.6 mg/dL (8.7-10.4); Chloride 108 mmol/L (98-107); Potassium 3.3 mmol/L (3.5-5.1)
[2024-10-23] MEDS: POTASSIUM CHL 20MEQ/100ML 100 ML IV SCH ×2 (07:45→16:24)
[2024-10-23 07:56] LABS: Base Excess -1.3 mmol/L (-2.0-3.0)
--- NOTE | 2024-10-23 08:00 | DVHPN2 ---
Progress Note - Dictate Date Seen: Oct 23, 2024 Has the PT tested + for MRSA If YES, has PT been informed?: No Medical Necessity Reason Pt with a Central, PICC or Fol: Yes The following are medically ne: Cutler Catheter Reason for cutler catheter: Strict I&O vital signs Vital Sign Date Time Temp Pulse Resp B/P (MAP) Pulse Ox O2 Delivery O2 Flow Rate FiO2 10/23/24 07:15 99.0 88 18 103/58 (73) 99 210.2 10/23/24 07:15 30 10/23/24 06:00 Mechanical Ventilator+ Total Intake and Output 10/22/24 10/22/24 10/23/24 15:00 23:00 07:00 Intake Total 390.5 ml 493 ml 257 ml Output Total 1000 ml 550 ml Balance 390.5 ml -507 ml -293 ml medications Current Medications Medications Dose Ordered Sig/Liliam Route Start Time Stop Time Status Last Admin Dose Admin Midazolam HCl 50 ml @ 1 mls/hr Q24H IV 10/07/24 04:45 10/21/24 07:28 4 MLS/HR Ondansetron HCl 4 mg Q4HP PRN IV 10/07/24 10:00 Nitroglycerin 0.4 mg Q5MINP PRN SL 10/07/24 10:00 Pantoprazole Sodium 40 mg DAILY IV 10/07/24 10:00 10/22/24 10:02 40 MG Aspirin 81 mg DAILY PO 10/08/24 10:00 10/22/24 10:03 81 MG Mexiletine HCl 150 mg TID GT 10/08/24 22:00 10/23/24 05:12 150 MG Acetaminophen 500 mg Q6HP PRN PO 10/08/24 22:30 10/19/24 03:18 500 MG Enteral Nutritional Formula 1,000 ml 55ML/HR GT 10/09/24 18:45 10/22/24 18:55 1,000 ML Phenylephrine HCl 80 mg/Sodium Chloride 250 ml @ 7.5 mls/hr Q24H IV 10/10/24 09:30 10/19/24 21:57 15 MLS/HR Furosemide 20 mg BIDD IV 10/12/24 18:00 10/23/24 05:12 20 MG Esmolol HCl 250 ml @ 0 mls/hr Q0M IV 10/14/24 10:45 Amino Acids 0 ml @ 0 mls/hr PER PHARMACY IV 10/15/24 18:45 Cancel Dextrose 50 ml UD IV 10/16/24 09:30 Cancel Fentanyl Citrate 250 ml @ 2.5 mls/hr Q24H IV 10/16/24 13:00 10/22/24 05:03 5 MLS/HR Polyethylene Glycol 17 gm DAILYPRN PRN GT 10/17/24 16:45 10/19/24 05:54 17 GM Doxycycline Monohydrate 100 mg Q12HR NG 10/18/24 10:00 10/22/24 21:13 100 MG Warfarin Sodium 2 mg DAILY@17 GT 10/19/24 17:00 10/22/24 17:56 2 MG Piperacillin Sod/ Tazobactam Sod 100 ml @ 25 mls/hr Q8HR IV 10/19/24 14:00 10/23/24 05:11 25 MLS/HR Hydrocortisone Sodium Succinate 50 mg Q6HR IV 10/19/24 18:00 10/23/24 06:02 50 MG Vancomycin HCl 0 ml @ 0 mls/hr UD IV 10/19/24 14:00 Cancel Vasopressin 20 units/Sodium Chloride 100 ml @ 9 mls/hr Q11H7M IV 10/19/24 15:45 Amino Acid Protein 30 ml DAILY GT 10/22/24 10:00 10/22/24 10:03 30 ML Metoclopramide HCl 5 mg Q6HR IV 10/21/24 18:00 10/23/24 05:12 5 MG Fluconazole 100 ml @ 100 mls/hr DAILY IV 10/22/24 14:00 10/22/24 14:50 100 MLS/HR Potassium Chloride 100 ml @ 50 mls/hr Q2H IV 10/23/24 07:00 10/23/24 10:59 UNV laboratory and microbiology Laboratory Tests 10/23/24 03:02 10/22/24 03:25 Test 10/23/24 03:02 Range/Units Serum Glucose 104 74-106 mg/dL Assessment/Plan Still intubated and in ICU. Off pressure support. Off sedation, still not regaining higher brain function. Patient is a 54-year-old female who was brought to the hospital for witnessed syncope. She is intubated and is being managed in ICU. Information was obtained by reviewing the chart and communicating with patient's son (over the phone). Family recognized witnessed syncope and started CPR and called EMS. Reportedly, EMS found the patient in ventricular fibrillation and shocked the patient and brought the patient to the hospital. Patient was intubated in emergency room and transferred to ICU. Patient was on amiodarone drip. Later the patient had ventricular tachycardia (Systane). High sensitive troponin had been minimally/flatly elevated. Presentation was not in favor of acute coronary syndrome. Cardiology is involved for cardiac aspects of care. Intubated. Noncommunicative. No JVD. Mucosa pale. No carotid bruit. Scattered rhonchi in the lungs is heard. Cardiac: Regular, no thrill. Systolic murmur 2/6 in apex is heard. Abdomen is soft. No edema in extremities. Past medical history as per son: Congenital heart disease, status post bypass WBC: 14.5 - 11.9 - 18.8 - 20.0 - 21.2 - 14.3 - 10.3 - 8.9 - 9.2 - 11.1 - 12.1 - 10.8 - 12.0 - 9.9 - 15.4 - 14.8 - 12.1 - 10.5 Hemoglobin: 10.1 - 9.6 - 9.2 - 8.8 - 8.7 - 8.0 - 8.3 - 8.5 - 7.8 - 10.2 - 10.7 - 9.9 - 9.7 - 9.3 - 9.3 - 8.6 - 8.1 - 7.4 - 7.5 Creatinine: 0.95 - 0.93 - 0.87 - 0.83 - 0.83 - 0.76 - 0.68 - 0.72 - 0.79 - 0.76 - 0.80 - 0.84 - 0.61 - 0.65 - 0.74 - 0.64 - 0.73 - 0.82 - 0.88 - 1.03 Potassium: 3.4 - 4.0 - 4.6 - 3.5 - 3.3 - 4.1 - 3.7 - 3.2 - 3.7 - 4.0 - 3.2 - 3.4 - 3.9 - 4.2 - 3.3 - 3.8 - 3.6 - 3.4 - 4.2 - 3.8 - 4.5 - 4.1 - 3.5 - 4.2 - 3.3 Magnesium: 2.0 - 1.6 - 2.0 - 3.0 - 1.5 - 1.9 - 2.1 - 1.8 - 2.0 - 1.9 - 1.9 - 2.6 - 2.0 - 1.8 - 1.6 - 2.0 - 2.2 - 1.9 - 2.3 - 2.2 Troponin (high sensitive): 141 - 138 - 117 BNP: 457.16 AST/ALT: 32/11 - 19/13 - 538/168 - 293/152 - 131/130 - 78/94 - 68/74 - 48/57 - 27/38 - 15/23 - 20/18 - 23/17 - 29/16 - 27/13 - 34/17 - 73/49 - 41/43 Digoxin level: 2.83 - 1.25 - 0.98 UDS: non-revealing Chest x-ray revealed: Lines and Tubes: Endotracheal tube tip projects approximately 1.4 cm above the level of the tyler. Enteric catheter courses below the lateral of the diaphragm and terminates beyond the inferior margin of the image. Right internal jugular central venous catheter terminates within the distal superior vena cava. Lungs: Moderate diffuse increased prominence of the pulmonary vasculature without evidence of focal consolidation. Pleura: No effusion. No pneumothorax. Cardiomediastinal contours: Cardiomegaly. Bones: Unremarkable IMPRESSION: 1. Cardiomegaly and diffuse increased prominence of the pulmonary vasculature. 2. Lines and tubes as above. Repeat chest x-ray revealed: IMPRESSION: 1. Endotracheal tube tip 1.6 cm above the tyler; consider 2 cm retraction 2. Mild pulmonary vascular congestion. Moderate cardiomegaly. Repeat chest xry revealed: IMPRESSION: Endotracheal tube tip 1.6 cm above the tyler; consider 2 cm retraction Mild pulmonary vascular congestion. Moderate cardiomegaly. Repeat chest xry revealed: IMPRESSION: 1. Stable cardiomegaly, small left pleural effusion and mild diffuse increased prominence of the pulmonary vasculature. 2. Repositioned endotracheal tube as above. Remaining lines and tubes unchanged. Repeat chest xry revealed: IMPRESSION: 1. Cardiomegaly, stable diffuse increased prominence of the pulmonary vasculature and small bilateral pleural effusions. 2. Slight interval advancement of endotracheal tube as above. Remaining lines and tubes unchanged. Repeat chest xry revealed: IMPRESSION: 1. Slight interval decrease in diffuse increased prominence of the pulmonary vasculature. 2. Stable cardiomegaly and small left pleural effusion. 3. Lines and tubes unchanged. Repeat chest xry revealed: IMPRESSION: 1. Cardiomegaly and small left pleural effusion. 2. Lines and tubes unchanged. Repeat chest xry revealed: IMPRESSION: Stable lines and tubes. Similar lung aeration. Repeat chest xry revealed: IMPRESSION: Cardiomegaly and small left pleural effusion. Lines and tubes unchanged. Repeat chest xry revealed: IMPRESSION: Placement of a cardiac pacer, no pneumothorax is seen. Stable lines and tubes. Repeat chest xry revealed: IMPRESSION: 1. Worsening mixed opacities in the right lower lung. No other significant change from the previous study. Stable support devices. Repeat chest xry revealed: Heart is prominent in size with postsurgical changes, median sternotomy wires, and a single lead left cardiac defibrillator. Support lines and tubes appear unchanged in satisfactory in position. No sizable effusion or pneumothorax. Mild pulmonary vascular congestion. No significant interval change. KUB revealed: IMPRESSION: Nonobstructive bowel gas pattern. Nasogastric tube tip in the stomach. Large stool burden. Left upper ext arterial duplex: IMPRESSION: No hemodynamically significant stenosis based on peak systolic velocity criteria. Left lower ext arterial duplex: IMPRESSION: There is no evidence for peripheral vascular insufficiency in the left lower extremity. No significant focal stenosis is identified. Liver Ultrasound revealed: Hepatic steatosis. Hepatomegaly. Cholelithiasis. CT of the head revealed: IMPRESSION: No acute intracranial abnormality. Repeat CT of head revealed: IMPRESSION: No acute intracranial abnormality. Echocardiogram reported: lvef 15-20% dilated LV severe global dysfunction mild RV dysfunction biatrial enlargement mild moderate MAC, moderate mitral regurg mild to moderate aortic regug (images of echo reviewed and questioned presence of mitral ring and also some component (moderate of Mitral stenosis) EKG revealed sinus rhythm Telemetry revealed occasions of atrial fibrillation. There was occasional sustained ventricular tachycardia. EMS tele monitor revealed ventricular fibrillation for which the patient was shocked. Has remained sinus rhythm. Later with A-fib with MVR LHC revealed: Patent RICHMOND to LAD; Patent SVG to obtuse marginal; LVEF of 20% with increased EDP; Proximal disease in LAD/LCX RICHIE was performed: Consistent with severely reduced LVEF. Consistent with previously implanted Mitral ring, Up to moderate Mitral stenosis/Mitral Regurgitation and also Moderate Aortic insufficiency. Patient is a 54-year-old female who presented with witnessed syncope. She was found to have ventricular fibrillation for which was shocked. Later had repeated episode of sustained ventricular tachycardia. Patient has been kept in ICU. Does have baseline history of coronary artery disease for which has had bypass surgery. Left heart catheterization was performed which revealed patent RICHMOND and patent SVG. ACS is not considered at this point. It is of note that the patient's echocardiogram reveals significantly use systolic function. Valvular heart disease is considered. Findings are in favor of previously implanted mitral ring. By reviewing the echo images, component of up to moderate mitral stenosis could not be ruled out. LHC was performed that ruled out any active specific ischemia as an etiology for presentation. Is off Amiodarone for abnormal LFT. Being followed by Nephrology / Pulmonary / Neurology / GI ID. Tele has remained sinus rhythm. Had episode of a-fib with RVR. Was loaded with Digoxin. Dig level was performed at wrong timing (only 5 hours after the last Dig given). Dig toxicity is not considered. Patient is back to normal sinus rhythm. Has good kidney function. Repeat Dig level is acceptable level. s/p ICD implantation by EP Syncope V-fib s/p shock Sustained V-tach Paroxysmal A-fib VHD, s/p Mitral ring Systolic heart failure Abnormal LFT, resolved s/p ICD (Biotronik) implantation by EP (Dr Armstrong) Cardiac suggestion for management: Manage in ICU Follow up electrolytes and kidney function test and correct abnormalities Full anticoagulation (a-fib with high CHADS-Vasc score). s/p recent ICD implantation and as per EP only on low dose coumadin. After a week to restart full anticoagulation Off Amio drip (worsened LFT) (personally discussed with EP: Dr Armstrong who advised to stop / not to restart Amiodarone) On Mexiletine If need for pressure support: use Phenyl Ephrine / vasopressin, keep MAP above 65 (for now off pressure support and tolerating) May consider Esmolol for PVC/Vtach s/p ICD (Biotronik) implantation by EP A/C: On Coumadin (as per EP verbal suggestion): check INR daily Pulmonary Follow up Provide previous medical records from reaching out to previous hospitals in [facility]... Further evaluation and management depends on the above and clinical course. A total of 75 minutes was spent reviewing the patient record, examining the patient, making a diagnostic and therapeutic plan, discussing this plan with medical personnel, following up on diagnostic studies and following the patient for clinical stability excluding any and all procedures. At least 50% of this time was spent in direct, [id number] contact. Thank you for allowing me to participate in this patient's care. Further recommendations will depend on patient's clinical course. Please do not hesitate to contact me if you have any questions or concerns. This medical document was created using electronic medical record system with [employer] dictation system. Although this document has been carefully reviewed, there may still be some phonetic and typographical errors. These areas are purely typographical due to the imperfection of the software programs, and do not reflect any compromise in the patient's medical care. Dietary Evaluation Review Comments: 1) TF Jevity 1.2Cal @ 55 ml/hr. x 24hr along with Pro-stat 1 pk daily. Start @ 20ml/hr, increase 10ml/hr Q4H until goal is reached. TF @ goal volume provides 1684 kcal (100% energy needs), 88 gm protein (100% protein needs), 1065 ml free water. 2) Water flush 100ml Q4H if allowed, adjust PRN 3) Advance to cardiac diet as medically feasible 4) Monitor NPO status, lab values, wt trend, I/O Expected Outcomes/Goals: To meet >75% estimated needs within 7 days Lab values to improve Fu 2-3 days Plan discussed with: Other (nurse) CORDELL VERA MD Oct 23, 2024 08:00
[2024-10-23] MEDS: POTASSIUM CHL 20MEQ/100ML 200 ML IV ONE (08:06)
--- NOTE | 2024-10-23 10:18 | DVHPN2 ---
Progress Note Date Seen: Oct 23, 2024 Resident Creating Document: ETHAN SWAN RESIDENT Has the PT tested + for MRSA If YES, has PT been informed?: No Medical Necessity Reason Pt with a Central, PICC or Fol: Yes The following are medically ne: Cutler Catheter Reason for cutler catheter: Strict I&O Subjective Review of Systems 54-year-old female with past medical history of paroxysmal atrial fibrillation, congenital heart disease who initially presented to the hospital s/p cardiac arrest, patient collapsed while seated on the dining table witnessed by . CPR was performed by EMS and patient was noted to have V-tach/VFib and received 200 joules shock. The next day during hospitalization, patient went into pulseless V-tach in subsequently ROS was achieved. Patient seen and examined at bedside, remains intubated, sedated and mechanically ventilated Currently feedings of Jevity held as patient being prepared for CPAP trial Last bowel movement 10/21/2024 LFTs downtrending appropriately Objective vital signs Vital Sign Date Time Temp Pulse Resp B/P (MAP) Pulse Ox O2 Delivery O2 Flow Rate FiO2 10/23/24 10:00 98.4 97 18 108/63 (78) 100 209.1 10/23/24 09:50 Mechanical Ventilator+ 30 30 Total Intake and Output 10/22/24 10/22/24 10/23/24 15:00 23:00 07:00 Intake Total 390.5 ml 493 ml 257 ml Output Total 1000 ml 550 ml Balance 390.5 ml -507 ml -293 ml medications Current Medications Medications Dose Ordered Sig/Liliam Route Start Time Stop Time Status Last Admin Dose Admin Midazolam HCl 50 ml @ 1 mls/hr Q24H IV 10/07/24 04:45 10/21/24 07:28 4 MLS/HR Ondansetron HCl 4 mg Q4HP PRN IV 10/07/24 10:00 Nitroglycerin 0.4 mg Q5MINP PRN SL 10/07/24 10:00 Pantoprazole Sodium 40 mg DAILY IV 10/07/24 10:00 10/23/24 09:18 40 MG Aspirin 81 mg DAILY PO 10/08/24 10:00 10/23/24 09:18 81 MG Mexiletine HCl 150 mg TID GT 10/08/24 22:00 10/23/24 05:12 150 MG Acetaminophen 500 mg Q6HP PRN PO 10/08/24 22:30 10/19/24 03:18 500 MG Enteral Nutritional Formula 1,000 ml 55ML/HR GT 10/09/24 18:45 10/22/24 18:55 1,000 ML Phenylephrine HCl 80 mg/Sodium Chloride 250 ml @ 7.5 mls/hr Q24H IV 10/10/24 09:30 10/19/24 21:57 15 MLS/HR Furosemide 20 mg BIDD IV 10/12/24 18:00 10/23/24 05:12 20 MG Esmolol HCl 250 ml @ 0 mls/hr Q0M IV 10/14/24 10:45 Amino Acids 0 ml @ 0 mls/hr PER PHARMACY IV 10/15/24 18:45 Cancel Dextrose 50 ml UD IV 10/16/24 09:30 Cancel Fentanyl Citrate 250 ml @ 2.5 mls/hr Q24H IV 10/16/24 13:00 10/22/24 05:03 5 MLS/HR Polyethylene Glycol 17 gm DAILYPRN PRN GT 10/17/24 16:45 10/19/24 05:54 17 GM Doxycycline Monohydrate 100 mg Q12HR NG 10/18/24 10:00 10/23/24 09:18 100 MG Warfarin Sodium 2 mg DAILY@17 GT 10/19/24 17:00 10/22/24 17:56 2 MG Piperacillin Sod/ Tazobactam Sod 100 ml @ 25 mls/hr Q8HR IV 10/19/24 14:00 10/23/24 05:11 25 MLS/HR Hydrocortisone Sodium Succinate 50 mg Q6HR IV 10/19/24 18:00 10/23/24 06:02 50 MG Vancomycin HCl 0 ml @ 0 mls/hr UD IV 10/19/24 14:00 Cancel Vasopressin 20 units/Sodium Chloride 100 ml @ 9 mls/hr Q11H7M IV 10/19/24 15:45 Amino Acid Protein 30 ml DAILY GT 10/22/24 10:00 10/22/24 10:03 30 ML Metoclopramide HCl 5 mg Q6HR IV 10/21/24 18:00 10/23/24 05:12 5 MG Fluconazole 100 ml @ 100 mls/hr DAILY IV 10/22/24 14:00 10/23/24 09:17 100 MLS/HR Potassium Chloride 100 ml @ 50 mls/hr Q2H IV 10/23/24 07:00 10/23/24 10:59 10/23/24 09:17 50 MLS/HR Examination General Appearance: Sedated, intubated on mechanical ventilation Head Exam: Normal inspection. Constricted equal and reactive pupils Neck Exam: Normal inspection. Non-tender. Normal alignment Pulmonary/Respiratory: Chest non-tender. Trace crackles Peripheral Pulses 2+ Pedal (R). 2+ Pedal (L) Abdominal Exam: Normal bowel sounds. Soft. normal abdomen, no visible veins, No hepatospenomegaly. No masses Skin Exam: Normal inspection. Normal color. Warm. Dry laboratory and microbiology Laboratory Tests 10/23/24 03:02 Test 10/23/24 03:02 Range/Units Serum Glucose 104 74-106 mg/dL Microbiology Date/Time Source Procedure Growth Status 10/20/24 04:00 Sputum Gram Stain - Final Resulted 10/20/24 04:00 Sputum Respiratory Culture - Preliminary Resulted 10/20/24 01:03 Urine - Cut[place] Urine Culture - Preliminary Resulted 10/19/24 13:02 Blood Blood Culture - Preliminary NO GROWTH AFTER 72 HOURS OF INCUBATION. Resulted 10/07/24 16:50 Nose MRSA Screen - Final Complete Labs and/or images reviewed: Labs reviewed by me, Image(s) reviewed by me Problem List/Assessment/Plan Problem List/Assessment/Plan Ventricular fibrillation S/p cardiopulmonary arrest with shock Heart failure with reduced ejection fraction 15-20% Metabolic versus hypoxic encephalopathy Acute hepatocellular injury likely shock liver Cholelithiasis without acute inflammation Nonalcoholic fatty liver disease with steatohepatitis Community-acquired pneumonia growing Enterobacter Plan: Liver function tests have downtrended with AST 41, ALT 43, ALP 92 TB 0.6 Continue tube feedings Serum ferritin, JAIDEN CPAP trial Thank you so much for the opportunity to consult on your patient. GI team will follow the patient. In case of any questions or concerns please feel free to reach out. Plan discussed with Dr. Anglin Plan discussed with: Other (RN) My Orders My Orders Orders - ETHAN SWAN RESIDENT Procedure Category Date Status Time Complete Blood Count LAB 10/23/24 Logged 08:50 Dietary Evaluation Review Comments: 1) TF Jevity 1.2Cal @ 55 ml/hr. x 24hr along with Pro-stat 1 pk daily. Start @ 20ml/hr, increase 10ml/hr Q4H until goal is reached. TF @ goal volume provides 1684 kcal (100% energy needs), 88 gm protein (100% protein needs), 1065 ml free water. 2) Water flush 100ml Q4H if allowed, adjust PRN 3) Advance to cardiac diet as medically feasible 4) Monitor NPO status, lab values, wt trend, I/O Expected Outcomes/Goals: To meet >75% estimated needs within 7 days Lab values to improve Fu 2-3 days ETHAN SWAN RESIDENT Oct 23, 2024 10:18
--- NOTE | 2024-10-23 11:00 | DVHPN2 ---
Progress Note - Dictate Date Seen: Oct 23, 2024 Has the PT tested + for MRSA If YES, has PT been informed?: No Medical Necessity Reason Pt with a Central, PICC or Fol: Yes The following are medically ne: Cutler Catheter Reason for cutler catheter: Strict I&O vital signs Vital Sign Date Time Temp Pulse Resp B/P (MAP) Pulse Ox O2 Delivery O2 Flow Rate FiO2 10/23/24 10:30 98.4 84 18 105/63 (77) 100 209.1 10/23/24 09:50 Mechanical Ventilator+ 30 30 Total Intake and Output 10/22/24 10/22/24 10/23/24 15:00 23:00 07:00 Intake Total 390.5 ml 493 ml 257 ml Output Total 1000 ml 550 ml Balance 390.5 ml -507 ml -293 ml medications Current Medications Medications Dose Ordered Sig/Liliam Route Start Time Stop Time Status Last Admin Dose Admin Midazolam HCl 50 ml @ 1 mls/hr Q24H IV 10/07/24 04:45 10/21/24 07:28 4 MLS/HR Ondansetron HCl 4 mg Q4HP PRN IV 10/07/24 10:00 Nitroglycerin 0.4 mg Q5MINP PRN SL 10/07/24 10:00 Pantoprazole Sodium 40 mg DAILY IV 10/07/24 10:00 10/23/24 09:18 40 MG Aspirin 81 mg DAILY PO 10/08/24 10:00 10/23/24 09:18 81 MG Mexiletine HCl 150 mg TID GT 10/08/24 22:00 10/23/24 05:12 150 MG Acetaminophen 500 mg Q6HP PRN PO 10/08/24 22:30 10/19/24 03:18 500 MG Enteral Nutritional Formula 1,000 ml 55ML/HR GT 10/09/24 18:45 10/22/24 18:55 1,000 ML Phenylephrine HCl 80 mg/Sodium Chloride 250 ml @ 7.5 mls/hr Q24H IV 10/10/24 09:30 10/19/24 21:57 15 MLS/HR Furosemide 20 mg BIDD IV 10/12/24 18:00 10/23/24 05:12 20 MG Esmolol HCl 250 ml @ 0 mls/hr Q0M IV 10/14/24 10:45 Amino Acids 0 ml @ 0 mls/hr PER PHARMACY IV 10/15/24 18:45 Cancel Dextrose 50 ml UD IV 10/16/24 09:30 Cancel Fentanyl Citrate 250 ml @ 2.5 mls/hr Q24H IV 10/16/24 13:00 10/22/24 05:03 5 MLS/HR Polyethylene Glycol 17 gm DAILYPRN PRN GT 10/17/24 16:45 10/19/24 05:54 17 GM Doxycycline Monohydrate 100 mg Q12HR NG 10/18/24 10:00 10/23/24 09:18 100 MG Warfarin Sodium 2 mg DAILY@17 GT 10/19/24 17:00 10/22/24 17:56 2 MG Piperacillin Sod/ Tazobactam Sod 100 ml @ 25 mls/hr Q8HR IV 10/19/24 14:00 10/23/24 05:11 25 MLS/HR Hydrocortisone Sodium Succinate 50 mg Q6HR IV 10/19/24 18:00 10/23/24 06:02 50 MG Vancomycin HCl 0 ml @ 0 mls/hr UD IV 10/19/24 14:00 Cancel Vasopressin 20 units/Sodium Chloride 100 ml @ 9 mls/hr Q11H7M IV 10/19/24 15:45 Amino Acid Protein 30 ml DAILY GT 10/22/24 10:00 10/22/24 10:03 30 ML Metoclopramide HCl 5 mg Q6HR IV 10/21/24 18:00 10/23/24 05:12 5 MG Fluconazole 100 ml @ 100 mls/hr DAILY IV 10/22/24 14:00 10/23/24 09:17 100 MLS/HR objective General Appearance: no distress HEENT: EOMI, PERRLA, normal external inspect of ears, no icterus, no nasal drainage Neck: no carotid bruit, no jugular venous distention (JVD), no lymphadenopathy Chest: normal thorax Respiratory: Intubated, clear to auscultation, normal air movement Cardiovascular: regular rate and rhythm, no diastolic murmur, no jugular venous distention (JVD), no rub, no systolic murmur Abdominal: soft, no hepatomegaly, no mass, no splenomegaly, no tenderness Genitourinary: grossly normal external Musculoskeletal: no joint tenderness, no swelling Extremities: normal pulses, no calf tenderness, no clubbing, no cyanosis, no edema Skin: no bruising, no jaundice, no rash Neurological: No focal deficit laboratory and microbiology Laboratory Tests 10/23/24 03:02 Test 10/23/24 03:02 Range/Units Serum Glucose 104 74-106 mg/dL Problem List Cardiac Arrest with Ventricular Fibrillation Assessment: Patient experienced cardiac arrest with ventricular fibrillation on 10/07/24, witnessed by family members who initiated CPR. EMS found the patient in ventricular fibrillation and administered shock therapy. Rhythm strip analysis confirmed ventricular fibrillation. Patient required intubation and sedation upon ED arrival. Currently admitted to ICU for close observation. Cardiology has been consulted and plans for AICD placement, likely on Tuesday. Infectious disease clearance has been obtained for the AICD procedure, addressing initial concerns of leukocytosis which is now improving. Status post-cardiac arrest. Plan: - Continue ICU monitoring - Proceed with AICD placement as planned (likely Tuesday), cleared by infectious disease. - Maintain intubation and sedation until AICD placement - Continue Heparin drip for paroxysmal atrial fibrillation - Continue Mexitil - DC amiodarone due to transaminitis - added esmolol drip per Cardiology for AFib and added push doses of digoxin Coronary Artery Disease Assessment: Patient with history of 2-vessel CABG (Coronary Artery Bypass Grafting). Surgical intervention previously performed to address significant coronary artery stenosis. Plan: - Continue medical management - Follow up with cardiology for ongoing coronary artery disease management Acute and Chronic Systolic Heart Failure Assessment: Patient has acute and chronic systolic heart failure with severely reduced left ventricular function. Ejection fraction is estimated at 15-20%. RICHIE findings are consistent with severely reduced left ventricular ejection fraction, previously implanted mitral ring, up to moderate mitral stenosis and regurgitation, and moderate aortic insufficiency. Plan: - Continue cardiology consultation - continue IV diuretics (IV Lasix) - Monitor renal function Acute Hypoxic Respiratory Failure Assessment: Patient is currently intubated due to acute hypoxic respiratory failure. Dr. Downey from pulmonology is managing this aspect of care. Plan: - Maintain current intubation as per pulmonology recommendation - Proceed with CPAP trials when deemed appropriate by pulmonology Transaminitis Assessment: Patient has elevated liver function tests, likely secondary to amiodarone use. Cardiology has discontinued amiodarone in response. Plan: - Monitor liver function tests - Amiodarone discontinued as per cardiology Enterobacter PNA Assessment: Sputum culture positive for Enterobacter. Plan: - Continue treatment with Eratapenem to complete 10 days regimen -Infectious disease consult Hemodynamic Support Assessment: Patient requires vasopressor support for hemodynamic stability. Plan: - Continue vasopressin - Continue neosynephrine Paroxysmal a fib -DC amiodarone -continue with heparin gtt Assessment/Plan Subjective: Patient remains on the ventilator. Objective: Patient is continuing spontaneous breathing trials. Patient is status post AICD. Patient was admitted status post cardiac arrest. Patient was noted to have A-fib with RVR. Patient had acute on chronic systolic heart failure. Patient most likely has pneumonia, gram-negative and gram-positive. Plan: Continue Zosyn and doxycycline. Ventilator management per pulmonary. Replace electrolytes. Potassium is 3.3. Monitor on EKG. Dietary Evaluation Review Comments: 1) TF Jevity 1.2Cal @ 55 ml/hr. x 24hr along with Pro-stat 1 pk daily. Start @ 20ml/hr, increase 10ml/hr Q4H until goal is reached. TF @ goal volume provides 1684 kcal (100% energy needs), 88 gm protein (100% protein needs), 1065 ml free water. 2) Water flush 100ml Q4H if allowed, adjust PRN 3) Advance to cardiac diet as medically feasible 4) Monitor NPO status, lab values, wt trend, I/O Expected Outcomes/Goals: To meet >75% estimated needs within 7 days Lab values to improve Fu 2-3 days Plan discussed with: Patient, Other BRODIE GARVIN [employer]LECTION SPECIALIST Oct 23, 2024 11:00
--- NOTE | 2024-10-23 11:10 | DVHPN2 ---
Progress Note - Dictate Date Seen: Oct 23, 2024 Has the PT tested + for MRSA If YES, has PT been informed?: No Medical Necessity Reason Pt with a Central, PICC or Fol: Yes The following are medically ne: Cutler Catheter Reason for cutler catheter: Strict I&O Subjective Ms. Smith is a 54 years old female who was brought to the [facility] on 10/07/2024 with a chief complaint of cardiopulmonary arrest/status post CPR. I have seen and examined the patient, I have discussed with her nurse, she is intubated, awake, on CPAP, the vital looks okay with current treatment, she was doing visual threat, but not to verbal stimuli, she moves the arms from times time She received pacemaker insertion on 10/17/2024 Blood culture, 10/09/2024: No growth Blood culture, 10/19/2024: UDS, 10/07/2024: Negative Urinalysis, 10/07/2024: Leukocyte esterase: Negative WBC/HB/PLT/MCV, 10/09/2024: 20/8.8/219/94.6, 10/10/2024: 21.2/8.7/232/92.2 PT/INR/PTT, 10/08/2024: 12.4/1.19/72.7, 10/09/2024: 13.1/1.26/68.9, 10/10/2024: 14.4/2/1.38/35.3 CMP, 10/08/2024: Unremarkable Troponin one high sensitivity, 10/07/2024: 141, 138, 117 TBI/AST/ALT/AP, 10/10/2024: 0.5/538/168/144, 10/11/2024: 0.6/293/199/152, 10/14/2024: 0.8/68/74/124 TG/HDL/LDL/HDL, 10/07/24: 71/66/31/21 Echocardiogram, 10/07/2024: lvef 15-20% dilated LV severe global dysfunction mild RV dysfunction biatrial enlargement mild moderate MAC, moderate mitral regurg mild to moderate aortic regug RICHIE, 10/08/2024: 1. Left ventricle: Dilated LV was seen. LVEF was 25%. There was diffuse hypokinesis of left ventricle. 2. Right ventricle: RV was mildly dilated. 3. Left atrium: LA enlarged 4. Right atrium: RA was enlarged. 5. Mitral valve: Mitral was thickened with reduced opening. Moderate Mitral regurgitation was seen. Planinomentry of valve (TTE images also obtained) revealed MVA of 2.1 cm. Mean pressure gradient (obtained from limited TTE images) was 5. Images are consistent with previously implanted Ring in Mitral position. Consistent with up to Moderate Mitral stenosis. . There was no vegetation 6. Left atrial appendage: No evidence of thrombus. 7. Aortic valve: Trileaflet valve. No stenosis. Up to moderate Aortic Insufficiency was seen. There was no vegetation 8. Pulmonic valve: Trivial pulmonic insufficiency. No significant stenosis. 9. Tricuspid valve: Mild tricuspid regurgitation. There was no vegetation 10. Interatrial septum: Negative color flow for right to left shunt was observed. Bubble study was performed: negative for shunt 11. Pericardium: No significant effusion. 12. Thoracic aorta: No significant plaquing. Chest x-ray, 10/27/2024: 1. Cardiomegaly, stable diffuse increased prominence of the pulmonary vasculature and small bilateral pleural effusions. 2. Slight interval advancement of endotracheal tube as above. Remaining lines and tubes unchanged. CT head, 10/07/2024: No acute intracranial abnormality General: the patient is well developed and nourished. No acute distress. Intubated CT head, 10/07/2024: No acute intracranial abnormality. CT head, 10/11/2024: No acute intracranial abnormality vital signs Vital Sign Date Time Temp Pulse Resp B/P (MAP) Pulse Ox O2 Delivery O2 Flow Rate FiO2 10/23/24 10:30 98.4 84 18 105/63 (77) 100 209.1 10/23/24 09:50 Mechanical Ventilator+ 30 30 Total Intake and Output 10/22/24 10/22/24 10/23/24 15:00 23:00 07:00 Intake Total 390.5 ml 493 ml 257 ml Output Total 1000 ml 550 ml Balance 390.5 ml -507 ml -293 ml medications Current Medications Medications Dose Ordered Sig/Liliam Route Start Time Stop Time Status Last Admin Dose Admin Midazolam HCl 50 ml @ 1 mls/hr Q24H IV 10/07/24 04:45 10/21/24 07:28 4 MLS/HR Ondansetron HCl 4 mg Q4HP PRN IV 10/07/24 10:00 Nitroglycerin 0.4 mg Q5MINP PRN SL 10/07/24 10:00 Pantoprazole Sodium 40 mg DAILY IV 10/07/24 10:00 10/23/24 09:18 40 MG Aspirin 81 mg DAILY PO 10/08/24 10:00 10/23/24 09:18 81 MG Mexiletine HCl 150 mg TID GT 10/08/24 22:00 10/23/24 05:12 150 MG Acetaminophen 500 mg Q6HP PRN PO 10/08/24 22:30 10/19/24 03:18 500 MG Enteral Nutritional Formula 1,000 ml 55ML/HR GT 10/09/24 18:45 10/22/24 18:55 1,000 ML Phenylephrine HCl 80 mg/Sodium Chloride 250 ml @ 7.5 mls/hr Q24H IV 10/10/24 09:30 10/19/24 21:57 15 MLS/HR Furosemide 20 mg BIDD IV 10/12/24 18:00 10/23/24 05:12 20 MG Esmolol HCl 250 ml @ 0 mls/hr Q0M IV 10/14/24 10:45 Amino Acids 0 ml @ 0 mls/hr PER PHARMACY IV 10/15/24 18:45 Cancel Dextrose 50 ml UD IV 10/16/24 09:30 Cancel Fentanyl Citrate 250 ml @ 2.5 mls/hr Q24H IV 10/16/24 13:00 10/22/24 05:03 5 MLS/HR Polyethylene Glycol 17 gm DAILYPRN PRN GT 10/17/24 16:45 10/19/24 05:54 17 GM Doxycycline Monohydrate 100 mg Q12HR NG 10/18/24 10:00 10/23/24 09:18 100 MG Warfarin Sodium 2 mg DAILY@17 GT 10/19/24 17:00 10/22/24 17:56 2 MG Piperacillin Sod/ Tazobactam Sod 100 ml @ 25 mls/hr Q8HR IV 10/19/24 14:00 10/23/24 05:11 25 MLS/HR Hydrocortisone Sodium Succinate 50 mg Q6HR IV 10/19/24 18:00 10/23/24 06:02 50 MG Vancomycin HCl 0 ml @ 0 mls/hr UD IV 10/19/24 14:00 Cancel Vasopressin 20 units/Sodium Chloride 100 ml @ 9 mls/hr Q11H7M IV 10/19/24 15:45 Amino Acid Protein 30 ml DAILY GT 10/22/24 10:00 10/22/24 10:03 30 ML Metoclopramide HCl 5 mg Q6HR IV 10/21/24 18:00 10/23/24 05:12 5 MG Fluconazole 100 ml @ 100 mls/hr DAILY IV 10/22/24 14:00 10/23/24 09:17 100 MLS/HR Potassium Chloride 100 ml @ 50 mls/hr Q2H IV 10/23/24 11:00 10/23/24 14:59 UNV objective The patient is well-nourished and well-developed with no distress. The patient is intubated MENTAL STATUS: Subjective CRANIAL NERVES: Pupils are equal, round and reactive.There are corneal reflexes and doll's eyes phenomenon. No signs of facial weakness. There are gagging or coughing reflexes SENSATION: Responses to pain stimuli. MOTOR: Normal tone in the upper and lower extremity. Normal muscle bulk. No fasciculations. No spontaneous movement. REFLEXES: Deep tendon reflexes are symmetrical. No pathological reflexes. CEREBELLAR/COORDINATION: Deferred GAIT/STATION: deferred. laboratory and microbiology Laboratory Tests 10/23/24 03:02 Test 10/23/24 03:02 Range/Units Serum Glucose 104 74-106 mg/dL Problem List Cardiopulmonary arrest Status post CPR Metabolic encephalopathy Hypoxic encephalopathy Congestive heart failure Leukocytosis/sepsis/septic shock Respiratory failure Elevated liver function tests S/P pacemaker insertion on 10/17/2024 Assessment/Plan Monitoring Supportive treatment ICU care Stabilize vitals Respiratory support/vent management Hold off Lipitor (elevated liver function tests), LDL (31) (home medications included Lipitor 40 mg daily) DVT prophylaxis GI prophylaxis Cardiology on case Pulmonology on case Nephrology on case Consult GI Re: Elevated liver function tests Need more history Extubation when she is ready This medical document was created using an electronic medical record system with [employer] dictation system. Although this document has been carefully reviewed, there may still be some phonetic and typographical errors. These areas are purely typographical due to imperfections of the software programs, and do not reflect any compromise in the patient's medical care. Prognosis guarded Dietary Evaluation Review Comments: 1) TF Jevity 1.2Cal @ 55 ml/hr. x 24hr along with Pro-stat 1 pk daily. Start @ 20ml/hr, increase 10ml/hr Q4H until goal is reached. TF @ goal volume provides 1684 kcal (100% energy needs), 88 gm protein (100% protein needs), 1065 ml free water. 2) Water flush 100ml Q4H if allowed, adjust PRN 3) Advance to cardiac diet as medically feasible 4) Monitor NPO status, lab values, wt trend, I/O Expected Outcomes/Goals: To meet >75% estimated needs within 7 days Lab values to improve Fu 2-3 days Plan discussed with: Other CAROLINE ROBB MD Oct 23, 2024 11:10
[2024-10-23 14:31] LABS: Hematocrit 23.0 % (36.0-46.0); Mean Corpuscular Hemoglobin 31.5 pg (28.0-32.0); Mean Corpuscular Volume 97.7 fL (80.0-100.0)
[2024-10-23 14:32] LABS: Nucleated Red Blood Cells % 5.4 %
[2024-10-23 14:33] LABS: Hemoglobin 7.4 g/dL (12.2-16.2)
--- NOTE | 2024-10-23 19:08 | DVHPN2 ---
Progress Note - Dictate Date Seen: Oct 23, 2024 Has the PT tested + for MRSA If YES, has PT been informed?: No Medical Necessity Reason Pt with a Central, PICC or Fol: Yes The following are medically ne: Cutler Catheter Reason for cutler catheter: Strict I&O Subjective Patient is seen and examined at bedside Intubated on mechanical ventilator. Overnight events reviewed. vital signs Vital Sign Date Time Temp Pulse Resp B/P (MAP) Pulse Ox O2 Delivery O2 Flow Rate FiO2 10/23/24 18:56 100 Mechanical Ventilator+ 30 30 10/23/24 18:55 94 18 97/62 (74) 10/23/24 18:45 98.4 209.1 Total Intake and Output 10/22/24 10/22/24 10/23/24 15:00 23:00 07:00 Intake Total 390.5 ml 493 ml 257 ml Output Total 1000 ml 550 ml Balance 390.5 ml -507 ml -293 ml medications Current Medications Medications Dose Ordered Sig/Liliam Route Start Time Stop Time Status Last Admin Dose Admin Midazolam HCl 50 ml @ 1 mls/hr Q24H IV 10/07/24 04:45 10/21/24 07:28 4 MLS/HR Ondansetron HCl 4 mg Q4HP PRN IV 10/07/24 10:00 Nitroglycerin 0.4 mg Q5MINP PRN SL 10/07/24 10:00 Pantoprazole Sodium 40 mg DAILY IV 10/07/24 10:00 10/23/24 09:18 40 MG Aspirin 81 mg DAILY PO 10/08/24 10:00 10/23/24 09:18 81 MG Mexiletine HCl 150 mg TID GT 10/08/24 22:00 10/23/24 13:31 150 MG Acetaminophen 500 mg Q6HP PRN PO 10/08/24 22:30 10/19/24 03:18 500 MG Enteral Nutritional Formula 1,000 ml 55ML/HR GT 10/09/24 18:45 10/22/24 18:55 1,000 ML Phenylephrine HCl 80 mg/Sodium Chloride 250 ml @ 7.5 mls/hr Q24H IV 10/10/24 09:30 10/19/24 21:57 15 MLS/HR Furosemide 20 mg BIDD IV 10/12/24 18:00 10/23/24 17:36 20 MG Esmolol HCl 250 ml @ 0 mls/hr Q0M IV 10/14/24 10:45 Amino Acids 0 ml @ 0 mls/hr PER PHARMACY IV 10/15/24 18:45 Cancel Dextrose 50 ml UD IV 10/16/24 09:30 Cancel Fentanyl Citrate 250 ml @ 2.5 mls/hr Q24H IV 10/16/24 13:00 10/22/24 05:03 5 MLS/HR Polyethylene Glycol 17 gm DAILYPRN PRN GT 10/17/24 16:45 10/19/24 05:54 17 GM Doxycycline Monohydrate 100 mg Q12HR NG 10/18/24 10:00 10/23/24 09:18 100 MG Warfarin Sodium 2 mg DAILY@17 GT 10/19/24 17:00 10/23/24 16:44 2 MG Piperacillin Sod/ Tazobactam Sod 100 ml @ 25 mls/hr Q8HR IV 10/19/24 14:00 10/23/24 13:31 25 MLS/HR Hydrocortisone Sodium Succinate 50 mg Q6HR IV 10/19/24 18:00 10/23/24 17:36 50 MG Vancomycin HCl 0 ml @ 0 mls/hr UD IV 10/19/24 14:00 Cancel Vasopressin 20 units/Sodium Chloride 100 ml @ 9 mls/hr Q11H7M IV 10/19/24 15:45 Amino Acid Protein 30 ml DAILY GT 10/22/24 10:00 10/23/24 13:38 30 ML Metoclopramide HCl 5 mg Q6HR IV 10/21/24 18:00 10/23/24 17:36 5 MG Fluconazole 100 ml @ 100 mls/hr DAILY IV 10/22/24 14:00 10/23/24 09:17 100 MLS/HR objective Gen.: Patient lying in bed in medical ICU. Intubated on mechanical ventilator. Head: Normocephalic, atraumatic. Eyes: PERRLA. Ears: Normal external anatomy. Throat: Endotracheal tube and orogastric tube in place. Neck: Supple, trachea midline. Chest: Transmitted breath sounds bilaterally. Decreased air entry bilaterally. No wheezing. Bibasilar crackles. Cardiovascular: Positive S1, positive S2. Regular rate and rhythm. Abdomen: Positive bowel sounds in all 4 quadrants. Soft, nontender, nondistended. : Cutler in place. Normal external genitalia. Rectal: Deferred. Skin: Warm, dry. Intact. Extremities: 2+ radial pulses bilaterally. No lower extremity edema. Neuro: Off sedation laboratory and microbiology Laboratory Tests 10/23/24 14:58 10/23/24 14:02 10/23/24 03:02 Test 10/23/24 03:02 Range/Units Serum Glucose 104 74-106 mg/dL Assessment/Plan Impression: Acute hypoxic respiratory failure On mechanical ventilator s/p cardiac arrest Ventricular tachycardia CPR <5 min Elevated troponin Atelectasis Events: Pt seen and examined in ICU Remains on mechanical ventilation AC mode with RR 18, VT 450, PEEP 5, FiO2 30% ABG reviewed, notable for alkalemia CXR demonstrated unchanged pulmonary vascular congestion, left basilar airspace disease. Devices in place. Remains off sedation Off pressors, hemodynamically stable Placed on CPAP with PS 16, PEEP of 5 for exercising. Continue antibiotics Continue antifungal Monitor blood pressure Follow up Neurology recommendations Follow up Cardiology recommendations Continue diuresis with Lasix as tolerated Monitor renal function Monitor electrolytes. Supplement as necessary. Potassium supplementation Clinimix for nutritional support CPAP daily Awaiting for mental status to improve for extubation. Labs and imaging reviewed. Plan: s/p intubation on mechanical ventilator. Titrate FIO2 to keep O2 saturation above 90%. VAP bundle. Daily ABG and CXR while intubated Off sedation Pressors as necessary for hemodynamic support. Titrate to keep MAP greater than 65 mmHg. Patient is s/p pacemaker Follow up Cardiology recs Continue antibiotics. F/u cultures. Continue antifungal Accu-Cheks, ISS PRN. Monitor labs Monitor renal function Monitor electrolytes. Supplement as necessary. Monitor ins and outs. F/u Cardiology recs. DVT prophylaxis. Prognosis: Poor given patient's multiple co-morbidities. Condition: Critical Rest of plan per hospitalist and other consultants. A total of 35 minutes of critical care time was spent reviewing the patient record, examining the patient, making a diagnostic and therapeutic plan, discussing this plan with the medical personnel, following up on diagnostic studies and following the patient for clinical stability excluding any and all procedures. At least 50% of this time was spent in direct, [id number] contact. Thank you, YURI Gomez, for allowing me to participate in this patient's care. Further recommendations will depend on the patient's clinical course. Please do not hesitate to contact me if you have any questions or concerns. This medical document was created using an electronic medical record system with [employer] computerized dictation system. Although these documentations are being carefully reviewed, there may still be some phonetic and typographical changes. The errors are purely typographical, due to imperfection on the software program, and do not reflect any compromise in the patient's medical care. Dietary Evaluation Review Comments: 1) TF Jevity 1.2Cal @ 55 ml/hr. x 24hr along with Pro-stat 1 pk daily. Start @ 20ml/hr, increase 10ml/hr Q4H until goal is reached. TF @ goal volume provides 1684 kcal (100% energy needs), 88 gm protein (100% protein needs), 1065 ml free water. 2) Water flush 100ml Q4H if allowed, adjust PRN 3) Advance to cardiac diet as medically feasible 4) Monitor NPO status, lab values, wt trend, I/O Expected Outcomes/Goals: To meet >75% estimated needs within 7 days Lab values to improve Fu 2-3 days Plan discussed with: Other (CEE Dunn) Critical Care Time(min): 35 KENNY FROST MD Oct 23, 2024 19:08
[2024-10-24] VITALS (103 sets, daily range): BP systolic 99–123; BP diastolic 48–76; PULSE 67–102; RESP 15–26; TEMP 98.4–99.3; O2SAT 99–100
[2024-10-24 04:36] LABS: Albumin 3.5 g/dL (3.2-4.8); Alkaline Phosphatase 95 U/L (46-116); Anion Gap 12 (5-15); BUN/Creatinine Ratio 38.4 (10.0-20.0); Bilirubin, Total 0.7 mg/dL (0.2-1.0); Calcium 8.8 mg/dL (8.7-10.4); Carbon Dioxide 21 mmol/L (20-31); Potassium 3.8 mmol/L (3.5-5.1); Sodium 142 mmol/L (136-145); Total Protein 6.2 g/dL (5.7-8.2)
[2024-10-24 04:40] LABS: Alanine Aminotransferase 47 U/L (7-40); Blood Urea Nitrogen 38 mg/dL (9-23); Chloride 109 mmol/L (98-107); Glucose 114 mg/dL (74-106)
[2024-10-24 05:02] LABS: Hematocrit 23.0 % (36.0-46.0); Hemoglobin 7.5 g/dL (12.2-16.2); Mean Corpuscular Hemoglobin 31.7 pg (28.0-32.0); Mean Corpuscular Volume 97.3 fL (80.0-100.0)
[2024-10-24 05:19] LABS: INR 2.48 (0.9-1.15); Partial Thromboplastin Time 25.1 SEC (24.5-34.5); Prothrombin Time 24.0 sec (9.3-11.8)
--- NOTE | 2024-10-24 05:24 | DVH ---
CHEST RADIOGRAPH Indication: PULMONARY VASCULAR CONGESTION STATUS. Technique: Single frontal view of the chest was obtained Comparison: XY CHEST PORTABLE on DOS: 10/23/24 FINDINGS: Lines and Tubes: The endotracheal tube terminates 3.4 cm above the tyler. The enteric tube terminat es below the left hemidiaphragm and extends outside of the field of view. There is a right central ve nous catheter with its tip terminating in the superior vena cava. AICD/ pacemaker noted. Lungs: Bibasilar airspace disease. Pleura: No large pleural effusion. No pneumothorax. Cardiomediastinal contours: Stable cardiomegaly. Bones: No acute osseous abnormality. Status post median sternotomy. IMPRESSION: 1. No significant interval change in pulmonary vascular congestion, left basilar airspace disease.
[2024-10-24 05:32] LABS: Total Cells Counted 100.0 (100)
[2024-10-24 05:54] LABS: Magnesium 2.2 mg/dL (1.6-2.6)
[2024-10-24 07:15] LABS: Base Excess -1.5 mmol/L (-2.0-3.0)
--- NOTE | 2024-10-24 08:36 | DVHPN2 ---
Progress Note - Dictate Date Seen: Oct 24, 2024 Has the PT tested + for MRSA If YES, has PT been informed?: No Medical Necessity Reason Pt with a Central, PICC or Fol: Yes The following are medically ne: Cutler Catheter Reason for cutler catheter: Strict I&O vital signs Vital Sign Date Time Temp Pulse Resp B/P (MAP) Pulse Ox O2 Delivery O2 Flow Rate FiO2 10/24/24 06:45 99.1 101 19 111/64 (80) 100 210.4 10/24/24 06:00 Mechanical Ventilator+ 30 30 Total Intake and Output 10/23/24 10/23/24 10/24/24 15:00 23:00 07:00 Intake Total 400 ml 460 ml 279 ml Output Total 700 ml 675 ml Balance 400 ml -240 ml -396 ml medications Current Medications Medications Dose Ordered Sig/Liliam Route Start Time Stop Time Status Last Admin Dose Admin Midazolam HCl 50 ml @ 1 mls/hr Q24H IV 10/07/24 04:45 10/21/24 07:28 4 MLS/HR Ondansetron HCl 4 mg Q4HP PRN IV 10/07/24 10:00 Nitroglycerin 0.4 mg Q5MINP PRN SL 10/07/24 10:00 Pantoprazole Sodium 40 mg DAILY IV 10/07/24 10:00 10/23/24 09:18 40 MG Aspirin 81 mg DAILY PO 10/08/24 10:00 10/23/24 09:18 81 MG Mexiletine HCl 150 mg TID GT 10/08/24 22:00 10/24/24 05:41 150 MG Acetaminophen 500 mg Q6HP PRN PO 10/08/24 22:30 10/19/24 03:18 500 MG Enteral Nutritional Formula 1,000 ml 55ML/HR GT 10/09/24 18:45 10/22/24 18:55 1,000 ML Phenylephrine HCl 80 mg/Sodium Chloride 250 ml @ 7.5 mls/hr Q24H IV 10/10/24 09:30 10/19/24 21:57 15 MLS/HR Furosemide 20 mg BIDD IV 10/12/24 18:00 10/24/24 05:42 20 MG Esmolol HCl 250 ml @ 0 mls/hr Q0M IV 10/14/24 10:45 Amino Acids 0 ml @ 0 mls/hr PER PHARMACY IV 10/15/24 18:45 Cancel Dextrose 50 ml UD IV 10/16/24 09:30 Cancel Fentanyl Citrate 250 ml @ 2.5 mls/hr Q24H IV 10/16/24 13:00 10/22/24 05:03 5 MLS/HR Polyethylene Glycol 17 gm DAILYPRN PRN GT 10/17/24 16:45 10/19/24 05:54 17 GM Doxycycline Monohydrate 100 mg Q12HR NG 10/18/24 10:00 10/23/24 21:29 100 MG Warfarin Sodium 2 mg DAILY@17 GT 10/19/24 17:00 10/23/24 16:44 2 MG Piperacillin Sod/ Tazobactam Sod 100 ml @ 25 mls/hr Q8HR IV 10/19/24 14:00 10/24/24 05:42 25 MLS/HR Hydrocortisone Sodium Succinate 50 mg Q6HR IV 10/19/24 18:00 10/24/24 05:42 50 MG Vancomycin HCl 0 ml @ 0 mls/hr UD IV 10/19/24 14:00 Cancel Vasopressin 20 units/Sodium Chloride 100 ml @ 9 mls/hr Q11H7M IV 10/19/24 15:45 Amino Acid Protein 30 ml DAILY GT 10/22/24 10:00 10/23/24 13:38 30 ML Metoclopramide HCl 5 mg Q6HR IV 10/21/24 18:00 10/23/24 17:36 5 MG Fluconazole 100 ml @ 100 mls/hr DAILY IV 10/22/24 14:00 10/23/24 09:17 100 MLS/HR laboratory and microbiology Laboratory Tests 10/24/24 04:42 10/24/24 03:43 Test 10/24/24 03:43 Range/Units Serum Glucose 114 H 74-106 mg/dL Assessment/Plan Still intubated and in ICU. Off pressure support. Off sedation, still not regaining higher brain function. Patient is a 54-year-old female who was brought to the hospital for witnessed syncope. She is intubated and is being managed in ICU. Information was obtained by reviewing the chart and communicating with patient's son (over the phone). Family recognized witnessed syncope and started CPR and called EMS. Reportedly, EMS found the patient in ventricular fibrillation and shocked the patient and brought the patient to the hospital. Patient was intubated in emergency room and transferred to ICU. Patient was on amiodarone drip. Later the patient had ventricular tachycardia (Systane). High sensitive troponin had been minimally/flatly elevated. Presentation was not in favor of acute coronary syndrome. Cardiology is involved for cardiac aspects of care. Intubated. Noncommunicative. No JVD. Mucosa pale. No carotid bruit. Scattered rhonchi in the lungs is heard. Cardiac: Regular, no thrill. Systolic murmur 2/6 in apex is heard. Abdomen is soft. No edema in extremities. Past medical history as per son: Congenital heart disease, status post bypass WBC: 14.5 - 11.9 - 18.8 - 20.0 - 21.2 - 14.3 - 10.3 - 8.9 - 9.2 - 11.1 - 12.1 - 10.8 - 12.0 - 9.9 - 15.4 - 14.8 - 12.1 - 10.5 - 5.8 - 5.3 Hemoglobin: 10.1 - 9.6 - 9.2 - 8.8 - 8.7 - 8.0 - 8.3 - 8.5 - 7.8 - 10.2 - 10.7 - 9.9 - 9.7 - 9.3 - 9.3 - 8.6 - 8.1 - 7.4 - 7.5 - 7.4 - 7.5 Creatinine: 0.95 - 0.93 - 0.87 - 0.83 - 0.83 - 0.76 - 0.68 - 0.72 - 0.79 - 0.76 - 0.80 - 0.84 - 0.61 - 0.65 - 0.74 - 0.64 - 0.73 - 0.82 - 0.88 - 1.03 - 0.99 Potassium: 3.4 - 4.0 - 4.6 - 3.5 - 3.3 - 4.1 - 3.7 - 3.2 - 3.7 - 4.0 - 3.2 - 3.4 - 3.9 - 4.2 - 3.3 - 3.8 - 3.6 - 3.4 - 4.2 - 3.8 - 4.5 - 4.1 - 3.5 - 4.2 - 3.3 - 2.6 - 3.5 - 3.8 Magnesium: 2.0 - 1.6 - 2.0 - 3.0 - 1.5 - 1.9 - 2.1 - 1.8 - 2.0 - 1.9 - 1.9 - 2.6 - 2.0 - 1.8 - 1.6 - 2.0 - 2.2 - 1.9 - 2.3 - 2.2 - 2.2 Troponin (high sensitive): 141 - 138 - 117 BNP: 457.16 AST/ALT: 32/11 - 19/13 - 538/168 - 293/152 - 131/130 - 78/94 - 68/74 - 48/57 - 27/38 - 15/23 - 20/18 - 23/17 - 29/16 - 27/13 - 34/17 - 73/49 - 41/43 - 30/47 Digoxin level: 2.83 - 1.25 - 0.98 UDS: non-revealing Chest x-ray revealed: Lines and Tubes: Endotracheal tube tip projects approximately 1.4 cm above the level of the tyler. Enteric catheter courses below the lateral of the diaphragm and terminates beyond the inferior margin of the image. Right internal jugular central venous catheter terminates within the distal superior vena cava. Lungs: Moderate diffuse increased prominence of the pulmonary vasculature without evidence of focal consolidation. Pleura: No effusion. No pneumothorax. Cardiomediastinal contours: Cardiomegaly. Bones: Unremarkable IMPRESSION: 1. Cardiomegaly and diffuse increased prominence of the pulmonary vasculature. 2. Lines and tubes as above. Repeat chest x-ray revealed: IMPRESSION: 1. Endotracheal tube tip 1.6 cm above the tyler; consider 2 cm retraction 2. Mild pulmonary vascular congestion. Moderate cardiomegaly. Repeat chest xry revealed: IMPRESSION: Endotracheal tube tip 1.6 cm above the tyler; consider 2 cm retraction Mild pulmonary vascular congestion. Moderate cardiomegaly. Repeat chest xry revealed: IMPRESSION: 1. Stable cardiomegaly, small left pleural effusion and mild diffuse increased prominence of the pulmonary vasculature. 2. Repositioned endotracheal tube as above. Remaining lines and tubes unchanged. Repeat chest xry revealed: IMPRESSION: 1. Cardiomegaly, stable diffuse increased prominence of the pulmonary vasculature and small bilateral pleural effusions. 2. Slight interval advancement of endotracheal tube as above. Remaining lines and tubes unchanged. Repeat chest xry revealed: IMPRESSION: 1. Slight interval decrease in diffuse increased prominence of the pulmonary vasculature. 2. Stable cardiomegaly and small left pleural effusion. 3. Lines and tubes unchanged. Repeat chest xry revealed: IMPRESSION: 1. Cardiomegaly and small left pleural effusion. 2. Lines and tubes unchanged. Repeat chest xry revealed: IMPRESSION: Stable lines and tubes. Similar lung aeration. Repeat chest xry revealed: IMPRESSION: Cardiomegaly and small left pleural effusion. Lines and tubes unchanged. Repeat chest xry revealed: IMPRESSION: Placement of a cardiac pacer, no pneumothorax is seen. Stable lines and tubes. Repeat chest xry revealed: IMPRESSION: 1. Worsening mixed opacities in the right lower lung. No other significant change from the previous study. Stable support devices. Repeat chest xry revealed: Heart is prominent in size with postsurgical changes, median sternotomy wires, and a single lead left cardiac defibrillator. Support lines and tubes appear unchanged in satisfactory in position. No sizable effusion or pneumothorax. Mild pulmonary vascular congestion. No significant interval change. KUB revealed: IMPRESSION: Nonobstructive bowel gas pattern. Nasogastric tube tip in the stomach. Large stool burden. Left upper ext arterial duplex: IMPRESSION: No hemodynamically significant stenosis based on peak systolic velocity criteria. Left lower ext arterial duplex: IMPRESSION: There is no evidence for peripheral vascular insufficiency in the left lower extremity. No significant focal stenosis is identified. Liver Ultrasound revealed: Hepatic steatosis. Hepatomegaly. Cholelithiasis. CT of the head revealed: IMPRESSION: No acute intracranial abnormality. Repeat CT of head revealed: IMPRESSION: No acute intracranial abnormality. Echocardiogram reported: lvef 15-20% dilated LV severe global dysfunction mild RV dysfunction biatrial enlargement mild moderate MAC, moderate mitral regurg mild to moderate aortic regug (images of echo reviewed and questioned presence of mitral ring and also some component (moderate of Mitral stenosis) EKG revealed sinus rhythm Telemetry revealed occasions of atrial fibrillation. There was occasional sustained ventricular tachycardia. EMS tele monitor revealed ventricular fibrillation for which the patient was shocked. Has remained sinus rhythm. Later with A-fib with MVR LHC revealed: Patent RICHMOND to LAD; Patent SVG to obtuse marginal; LVEF of 20% with increased EDP; Proximal disease in LAD/LCX RICHIE was performed: Consistent with severely reduced LVEF. Consistent with previously implanted Mitral ring, Up to moderate Mitral stenosis/Mitral Regurgitation and also Moderate Aortic insufficiency. Patient is a 54-year-old female who presented with witnessed syncope. She was found to have ventricular fibrillation for which was shocked. Later had repeated episode of sustained ventricular tachycardia. Patient has been kept in ICU. Does have baseline history of coronary artery disease for which has had bypass surgery. Left heart catheterization was performed which revealed patent RICHMOND and patent SVG. ACS is not considered at this point. It is of note that the patient's echocardiogram reveals significantly use systolic function. Valvular heart disease is considered. Findings are in favor of previously implanted mitral ring. By reviewing the echo images, component of up to moderate mitral stenosis could not be ruled out. LHC was performed that ruled out any active specific ischemia as an etiology for presentation. Is off Amiodarone for abnormal LFT. Being followed by Nephrology / Pulmonary / Neurology / GI ID. Tele has remained sinus rhythm. Had episode of a-fib with RVR. Was loaded with Digoxin. Dig level was performed at wrong timing (only 5 hours after the last Dig given). Dig toxicity is not considered. Patient is back to normal sinus rhythm. Has good kidney function. Repeat Dig level is acceptable level. s/p ICD implantation by EP Syncope V-fib s/p shock Sustained V-tach Paroxysmal A-fib VHD, s/p Mitral ring Systolic heart failure Abnormal LFT, resolved s/p ICD (Biotronik) implantation by EP (Dr Armstrong) Cardiac suggestion for management: Manage in ICU Follow up electrolytes and kidney function test and correct abnormalities Full anticoagulation (a-fib with high CHADS-Vasc score). s/p ICD implantation. As per oral communication by Dr Armstrong (EP), we can change the A/C to Eliquis Off Amio drip (worsened LFT) (personally discussed with EP: Dr Armstrong who advised to stop / not to restart Amiodarone) On Mexiletine If need for pressure support: use Phenyl Ephrine / vasopressin, keep MAP above 65 (for now off pressure support and tolerating) May consider Esmolol for PVC/Vtach s/p ICD (Biotronik) implantation by EP Stop warfarin Eliquis: 2.5 mg BID (only after INR is below 2.0) Pulmonary Follow up Provide previous medical records from reaching out to previous hospitals in [place]... Further evaluation and management depends on the above and clinical course. A total of 75 minutes was spent reviewing the patient record, examining the patient, making a diagnostic and therapeutic plan, discussing this plan with medical personnel, following up on diagnostic studies and following the patient for clinical stability excluding any and all procedures. At least 50% of this time was spent in direct, [id number] contact. Thank you for allowing me to participate in this patient's care. Further recommendations will depend on patient's clinical course. Please do not hesitate to contact me if you have any questions or concerns. This medical document was created using electronic medical record system with [employer] dictation system. Although this document has been carefully reviewed, there may still be some phonetic and typographical errors. These areas are purely typographical due to the imperfection of the software programs, and do not reflect any compromise in the patient's medical care. Dietary Evaluation Review Comments: 1) TF Jevity 1.2Cal @ 55 ml/hr. x 24hr along with Pro-stat 1 pk daily. Start @ 20ml/hr, increase 10ml/hr Q4H until goal is reached. TF @ goal volume provides 1684 kcal (100% energy needs), 88 gm protein (100% protein needs), 1065 ml free water. 2) Water flush 100ml Q4H if allowed, adjust PRN 3) Advance to cardiac diet as medically feasible 4) Monitor NPO status, lab values, wt trend, I/O Expected Outcomes/Goals: To meet >75% estimated needs within 7 days Lab values to improve Fu 2-3 days Plan discussed with: Other (nurse) CORDELL VERA MD Oct 24, 2024 08:36
--- NOTE | 2024-10-24 12:23 | DVHPN2 ---
Progress Note - Dictate Date Seen: Oct 24, 2024 Has the PT tested + for MRSA If YES, has PT been informed?: No Medical Necessity Reason Pt with a Central, PICC or Fol: Yes The following are medically ne: Cutler Catheter Reason for cutler catheter: Strict I&O vital signs Vital Sign Date Time Temp Pulse Resp B/P (MAP) Pulse Ox O2 Delivery O2 Flow Rate FiO2 10/24/24 12:00 71 10/24/24 12:00 30 10/24/24 12:00 18 100 Mechanical Ventilator+ 10/24/24 11:39 120/58 (78) 10/24/24 10:30 99.1 210.4 Total Intake and Output 10/23/24 10/23/24 10/24/24 14:59 22:59 06:59 Intake Total 400 ml 460 ml 279 ml Output Total 700 ml 675 ml Balance 400 ml -240 ml -396 ml medications Current Medications Medications Dose Ordered Sig/Liliam Route Start Time Stop Time Status Last Admin Dose Admin Midazolam HCl 50 ml @ 1 mls/hr Q24H IV 10/07/24 04:45 10/21/24 07:28 4 MLS/HR Ondansetron HCl 4 mg Q4HP PRN IV 10/07/24 10:00 Nitroglycerin 0.4 mg Q5MINP PRN SL 10/07/24 10:00 Pantoprazole Sodium 40 mg DAILY IV 10/07/24 10:00 10/24/24 10:11 40 MG Mexiletine HCl 150 mg TID GT 10/08/24 22:00 10/24/24 05:41 150 MG Acetaminophen 500 mg Q6HP PRN PO 10/08/24 22:30 10/19/24 03:18 500 MG Enteral Nutritional Formula 1,000 ml 55ML/HR GT 10/09/24 18:45 10/22/24 18:55 1,000 ML Phenylephrine HCl 80 mg/Sodium Chloride 250 ml @ 7.5 mls/hr Q24H IV 10/10/24 09:30 10/19/24 21:57 15 MLS/HR Furosemide 20 mg BIDD IV 10/12/24 18:00 10/24/24 05:42 20 MG Esmolol HCl 250 ml @ 0 mls/hr Q0M IV 10/14/24 10:45 Amino Acids 0 ml @ 0 mls/hr PER PHARMACY IV 10/15/24 18:45 Cancel Dextrose 50 ml UD IV 10/16/24 09:30 Cancel Fentanyl Citrate 250 ml @ 2.5 mls/hr Q24H IV 10/16/24 13:00 10/22/24 05:03 5 MLS/HR Polyethylene Glycol 17 gm DAILYPRN PRN GT 10/17/24 16:45 10/19/24 05:54 17 GM Doxycycline Monohydrate 100 mg Q12HR NG 10/18/24 10:00 10/24/24 10:11 100 MG Piperacillin Sod/ Tazobactam Sod 100 ml @ 25 mls/hr Q8HR IV 10/19/24 14:00 10/24/24 05:42 25 MLS/HR Hydrocortisone Sodium Succinate 50 mg Q6HR IV 10/19/24 18:00 10/24/24 12:05 50 MG Vancomycin HCl 0 ml @ 0 mls/hr UD IV 10/19/24 14:00 Cancel Vasopressin 20 units/Sodium Chloride 100 ml @ 9 mls/hr Q11H7M IV 10/19/24 15:45 Amino Acid Protein 30 ml DAILY GT 10/22/24 10:00 10/24/24 10:11 30 ML Metoclopramide HCl 5 mg Q6HR IV 10/21/24 18:00 10/23/24 17:36 5 MG Fluconazole 100 ml @ 100 mls/hr DAILY IV 10/22/24 14:00 10/24/24 10:11 100 MLS/HR Apixaban 2.5 mg BID PO 10/25/24 10:00 Future Hold objective General Appearance: no distress HEENT: EOMI, PERRLA, normal external inspect of ears, no icterus, no nasal drainage Neck: no carotid bruit, no jugular venous distention (JVD), no lymphadenopathy Chest: normal thorax Respiratory: Intubated, clear to auscultation, normal air movement Cardiovascular: regular rate and rhythm, no diastolic murmur, no jugular venous distention (JVD), no rub, no systolic murmur Abdominal: soft, no hepatomegaly, no mass, no splenomegaly, no tenderness Genitourinary: grossly normal external Musculoskeletal: no joint tenderness, no swelling Extremities: normal pulses, no calf tenderness, no clubbing, no cyanosis, no edema Skin: no bruising, no jaundice, no rash Neurological: No focal deficit laboratory and microbiology Laboratory Tests 10/24/24 04:42 10/24/24 03:43 Test 10/24/24 03:43 Range/Units Serum Glucose 114 H 74-106 mg/dL Problem List Cardiac Arrest with Ventricular Fibrillation Assessment: Patient experienced cardiac arrest with ventricular fibrillation on 10/07/24, witnessed by family members who initiated CPR. EMS found the patient in ventricular fibrillation and administered shock therapy. Rhythm strip analysis confirmed ventricular fibrillation. Patient required intubation and sedation upon ED arrival. Currently admitted to ICU for close observation. Cardiology has been consulted and plans for AICD placement, likely on Tuesday. Infectious disease clearance has been obtained for the AICD procedure, addressing initial concerns of leukocytosis which is now improving. Status post-cardiac arrest. Plan: - Continue ICU monitoring - Proceed with AICD placement as planned (likely Tuesday), cleared by infectious disease. - Maintain intubation and sedation until AICD placement - Continue Heparin drip for paroxysmal atrial fibrillation - Continue Mexitil - DC amiodarone due to transaminitis - added esmolol drip per Cardiology for AFib and added push doses of digoxin Coronary Artery Disease Assessment: Patient with history of 2-vessel CABG (Coronary Artery Bypass Grafting). Surgical intervention previously performed to address significant coronary artery stenosis. Plan: - Continue medical management - Follow up with cardiology for ongoing coronary artery disease management Acute and Chronic Systolic Heart Failure Assessment: Patient has acute and chronic systolic heart failure with severely reduced left ventricular function. Ejection fraction is estimated at 15-20%. RICHIE findings are consistent with severely reduced left ventricular ejection fraction, previously implanted mitral ring, up to moderate mitral stenosis and regurgitation, and moderate aortic insufficiency. Plan: - Continue cardiology consultation - continue IV diuretics (IV Lasix) - Monitor renal function Acute Hypoxic Respiratory Failure Assessment: Patient is currently intubated due to acute hypoxic respiratory failure. Dr. Downey from pulmonology is managing this aspect of care. Plan: - Maintain current intubation as per pulmonology recommendation - Proceed with CPAP trials when deemed appropriate by pulmonology Transaminitis Assessment: Patient has elevated liver function tests, likely secondary to amiodarone use. Cardiology has discontinued amiodarone in response. Plan: - Monitor liver function tests - Amiodarone discontinued as per cardiology Enterobacter PNA Assessment: Sputum culture positive for Enterobacter. Plan: - Continue treatment with Eratapenem to complete 10 days regimen -Infectious disease consult Hemodynamic Support Assessment: Patient requires vasopressor support for hemodynamic stability. Plan: - Continue vasopressin - Continue neosynephrine Paroxysmal a fib -DC amiodarone -continue with heparin gtt Assessment/Plan Subjective: Patient remains intubated. Currently off sedation. Unable to follow commands at this time. Objective: Patient is currently wearing mittens. She remains on daily spontaneous breathing treatment. Plan: Continue current treatment. Ventilator management per pulmonary. Continue antibiotics for sepsis and pneumonia. Continue antiarrhythmics as ordered by cardiology. Monitor EKG. Continue tube feeding as tolerated for nutrition. Dietary Evaluation Review Comments: 1) TF Jevity 1.2Cal @ 55 ml/hr. x 24hr along with Pro-stat 1 pk daily. Start @ 20ml/hr, increase 10ml/hr Q4H until goal is reached. TF @ goal volume provides 1684 kcal (100% energy needs), 88 gm protein (100% protein needs), 1065 ml free water. 2) Water flush 100ml Q4H if allowed, adjust PRN 3) Advance to cardiac diet as medically feasible 4) Monitor NPO status, lab values, wt trend, I/O Expected Outcomes/Goals: To meet >75% estimated needs within 7 days Lab values to improve Fu 2-3 days Plan discussed with: Patient, Other BRODIE GARVIN [employer]ORATIVE AIDE Oct 24, 2024 12:23
--- NOTE | 2024-10-24 15:49 | DVHPN2 ---
Progress Note Date Seen: Oct 24, 2024 Resident Creating Document: ETHAN SWAN RESIDENT Has the PT tested + for MRSA If YES, has PT been informed?: No Medical Necessity Reason Pt with a Central, PICC or Fol: Yes The following are medically ne: Cutler Catheter Reason for cutler catheter: Strict I&O Subjective Review of Systems 54-year-old female with past medical history of paroxysmal atrial fibrillation, congenital heart disease who initially presented to the hospital s/p cardiac arrest, patient collapsed while seated on the dining table witnessed by . CPR was performed by EMS and patient was noted to have V-tach/VFib and received 200 joules shock. The next day during hospitalization, patient went into pulseless V-tach in subsequently ROS was achieved. Patient seen and examined at bedside, remains intubated, sedated and mechanically ventilated CPAP today was unsuccessful S/p AICD stapled removal Liver function tests have downtrended appropriately with TB 0.7, AST 30, ALT 47, ALP 95 Had multiple bowel movements Objective vital signs Vital Sign Date Time Temp Pulse Resp B/P (MAP) Pulse Ox O2 Delivery O2 Flow Rate FiO2 10/24/24 15:00 98.6 87 20 120/65 (83) 100 209.5 10/24/24 14:30 30 10/24/24 14:30 Mechanical Ventilator+ Total Intake and Output 10/23/24 10/23/24 10/24/24 15:00 23:00 07:00 Intake Total 400 ml 460 ml 279 ml Output Total 700 ml 675 ml Balance 400 ml -240 ml -396 ml medications Current Medications Medications Dose Ordered Sig/Liliam Route Start Time Stop Time Status Last Admin Dose Admin Midazolam HCl 50 ml @ 1 mls/hr Q24H IV 10/07/24 04:45 10/21/24 07:28 4 MLS/HR Ondansetron HCl 4 mg Q4HP PRN IV 10/07/24 10:00 Nitroglycerin 0.4 mg Q5MINP PRN SL 10/07/24 10:00 Pantoprazole Sodium 40 mg DAILY IV 10/07/24 10:00 10/24/24 10:11 40 MG Mexiletine HCl 150 mg TID GT 10/08/24 22:00 10/24/24 13:46 150 MG Acetaminophen 500 mg Q6HP PRN PO 10/08/24 22:30 10/19/24 03:18 500 MG Enteral Nutritional Formula 1,000 ml 55ML/HR GT 10/09/24 18:45 10/22/24 18:55 1,000 ML Phenylephrine HCl 80 mg/Sodium Chloride 250 ml @ 7.5 mls/hr Q24H IV 10/10/24 09:30 10/19/24 21:57 15 MLS/HR Furosemide 20 mg BIDD IV 10/12/24 18:00 10/24/24 05:42 20 MG Esmolol HCl 250 ml @ 0 mls/hr Q0M IV 10/14/24 10:45 Amino Acids 0 ml @ 0 mls/hr PER PHARMACY IV 10/15/24 18:45 Cancel Dextrose 50 ml UD IV 10/16/24 09:30 Cancel Fentanyl Citrate 250 ml @ 2.5 mls/hr Q24H IV 10/16/24 13:00 10/22/24 05:03 5 MLS/HR Polyethylene Glycol 17 gm DAILYPRN PRN GT 10/17/24 16:45 10/19/24 05:54 17 GM Doxycycline Monohydrate 100 mg Q12HR NG 10/18/24 10:00 10/24/24 10:11 100 MG Piperacillin Sod/ Tazobactam Sod 100 ml @ 25 mls/hr Q8HR IV 10/19/24 14:00 10/24/24 13:46 25 MLS/HR Hydrocortisone Sodium Succinate 50 mg Q6HR IV 10/19/24 18:00 10/24/24 12:05 50 MG Vancomycin HCl 0 ml @ 0 mls/hr UD IV 10/19/24 14:00 Cancel Vasopressin 20 units/Sodium Chloride 100 ml @ 9 mls/hr Q11H7M IV 10/19/24 15:45 Amino Acid Protein 30 ml DAILY GT 10/22/24 10:00 10/24/24 10:11 30 ML Fluconazole 100 ml @ 100 mls/hr DAILY IV 10/22/24 14:00 10/24/24 10:11 100 MLS/HR Apixaban 2.5 mg BID PO 10/25/24 10:00 Future Hold Metoclopramide HCl 5 mg BID IV 10/25/24 10:00 Examination General Appearance: Sedated, intubated on mechanical ventilation Head Exam: Normal inspection. Constricted equal and reactive pupils Neck Exam: Normal inspection. Non-tender. Normal alignment Pulmonary/Respiratory: Chest non-tender. Trace crackles Peripheral Pulses 2+ Pedal (R). 2+ Pedal (L) Abdominal Exam: Normal bowel sounds. Soft. normal abdomen, no visible veins, No hepatospenomegaly. No masses Skin Exam: Normal inspection. Normal color. Warm. Dry laboratory and microbiology Laboratory Tests 10/24/24 04:42 10/24/24 03:43 Test 10/24/24 03:43 Range/Units Serum Glucose 114 H 74-106 mg/dL Microbiology Date/Time Source Procedure Growth Status 10/20/24 04:00 Sputum Gram Stain - Final Complete 10/20/24 04:00 Respiratory Culture - Final Enterobacter cloacae Yeast, not Ilda albicans Complete 10/20/24 01:03 Urine - [place] Urine Culture - Final Yeast, not Ilda albicans Complete 10/19/24 13:02 Blood Blood Culture - Final NO GROWTH AFTER 5 DAYS OF INCUBATION. Complete 10/07/24 16:50 Nose MRSA Screen - Final Complete Labs and/or images reviewed: Labs reviewed by me, Image(s) reviewed by me Problem List/Assessment/Plan Problem List/Assessment/Plan Ventricular fibrillation S/p cardiopulmonary arrest with shock Heart failure with reduced ejection fraction 15-20% Metabolic versus hypoxic encephalopathy Acute hepatocellular injury likely shock liver Cholelithiasis without acute inflammation Nonalcoholic fatty liver disease with steatohepatitis Community-acquired pneumonia growing Enterobacter Plan: Liver function tests have downtrended with AST 41, ALT 43, ALP 92 TB 0.6 Continue tube feedings Serum ferritin, JAIDEN CPAP trial Decreased metoclopramide to 5 mg IV b.i.d. Thank you so much for the opportunity to consult on your patient. GI team will follow the patient. In case of any questions or concerns please feel free to reach out. Plan discussed with Dr. Anglin Plan discussed with: Other (RN) My Orders My Orders Orders - ETHAN SWAN RESIDENT Procedure Category Date Status Time Metoclopramide PHA 10/25/24 In Process Injection (Reglan 10:00 Dietary Evaluation Review Comments: 1) TF Jevity 1.2Cal @ 55 ml/hr. x 24hr along with Pro-stat 1 pk daily. Start @ 20ml/hr, increase 10ml/hr Q4H until goal is reached. TF @ goal volume provides 1684 kcal (100% energy needs), 88 gm protein (100% protein needs), 1065 ml free water. 2) Water flush 100ml Q4H if allowed, adjust PRN 3) Advance to cardiac diet as medically feasible 4) Monitor NPO status, lab values, wt trend, I/O Expected Outcomes/Goals: To meet >75% estimated needs within 7 days Lab values to improve Fu 2-3 days ETHAN SWAN RESIDENT Oct 24, 2024 15:49
--- NOTE | 2024-10-24 22:54 | DVHPN2 ---
Progress Note - Dictate Date Seen: Oct 24, 2024 Has the PT tested + for MRSA If YES, has PT been informed?: No Medical Necessity Reason Pt with a Central, PICC or Fol: Yes The following are medically ne: Cutler Catheter Reason for cutler catheter: Strict I&O Subjective Patient is seen and examined at bedside Intubated on mechanical ventilator. Overnight events reviewed. vital signs Vital Sign Date Time Temp Pulse Resp B/P (MAP) Pulse Ox O2 Delivery O2 Flow Rate FiO2 10/24/24 22:35 101 18 110/68 (82) 100 30 10/24/24 20:23 Mechanical Ventilator 10/24/24 18:15 98.4 209.1 Total Intake and Output 10/23/24 10/23/24 10/24/24 15:00 23:00 07:00 Intake Total 400 ml 460 ml 279 ml Output Total 700 ml 675 ml Balance 400 ml -240 ml -396 ml medications Current Medications Medications Dose Ordered Sig/Liliam Route Start Time Stop Time Status Last Admin Dose Admin Midazolam HCl 50 ml @ 1 mls/hr Q24H IV 10/07/24 04:45 10/21/24 07:28 4 MLS/HR Ondansetron HCl 4 mg Q4HP PRN IV 10/07/24 10:00 Nitroglycerin 0.4 mg Q5MINP PRN SL 10/07/24 10:00 Pantoprazole Sodium 40 mg DAILY IV 10/07/24 10:00 10/24/24 10:11 40 MG Mexiletine HCl 150 mg TID GT 10/08/24 22:00 10/24/24 13:46 150 MG Acetaminophen 500 mg Q6HP PRN PO 10/08/24 22:30 10/19/24 03:18 500 MG Enteral Nutritional Formula 1,000 ml 55ML/HR GT 10/09/24 18:45 10/22/24 18:55 1,000 ML Phenylephrine HCl 80 mg/Sodium Chloride 250 ml @ 7.5 mls/hr Q24H IV 10/10/24 09:30 10/19/24 21:57 15 MLS/HR Furosemide 20 mg BIDD IV 10/12/24 18:00 10/24/24 18:11 20 MG Esmolol HCl 250 ml @ 0 mls/hr Q0M IV 10/14/24 10:45 Amino Acids 0 ml @ 0 mls/hr PER PHARMACY IV 10/15/24 18:45 Cancel Dextrose 50 ml UD IV 10/16/24 09:30 Cancel Fentanyl Citrate 250 ml @ 2.5 mls/hr Q24H IV 10/16/24 13:00 10/22/24 05:03 5 MLS/HR Polyethylene Glycol 17 gm DAILYPRN PRN GT 10/17/24 16:45 10/19/24 05:54 17 GM Doxycycline Monohydrate 100 mg Q12HR NG 10/18/24 10:00 10/24/24 10:11 100 MG Piperacillin Sod/ Tazobactam Sod 100 ml @ 25 mls/hr Q8HR IV 10/19/24 14:00 10/24/24 13:46 25 MLS/HR Hydrocortisone Sodium Succinate 50 mg Q6HR IV 10/19/24 18:00 10/24/24 18:11 50 MG Vancomycin HCl 0 ml @ 0 mls/hr UD IV 10/19/24 14:00 Cancel Vasopressin 20 units/Sodium Chloride 100 ml @ 9 mls/hr Q11H7M IV 10/19/24 15:45 Amino Acid Protein 30 ml DAILY GT 10/22/24 10:00 10/24/24 10:11 30 ML Fluconazole 100 ml @ 100 mls/hr DAILY IV 10/22/24 14:00 10/24/24 10:11 100 MLS/HR Apixaban 2.5 mg BID PO 10/25/24 10:00 Future Hold Metoclopramide HCl 5 mg BID IV 10/25/24 10:00 objective Gen.: Patient lying in bed in medical ICU. Intubated on mechanical ventilator. Head: Normocephalic, atraumatic. Eyes: PERRLA. Ears: Normal external anatomy. Throat: Endotracheal tube and orogastric tube in place. Neck: Supple, trachea midline. Chest: Transmitted breath sounds bilaterally. Decreased air entry bilaterally. No wheezing. Bibasilar crackles. Cardiovascular: Positive S1, positive S2. Regular rate and rhythm. Abdomen: Positive bowel sounds in all 4 quadrants. Soft, nontender, nondistended. : Cutler in place. Normal external genitalia. Rectal: Deferred. Skin: Warm, dry. Intact. Extremities: 2+ radial pulses bilaterally. No lower extremity edema. Neuro: Off sedation laboratory and microbiology Laboratory Tests 10/24/24 04:42 10/24/24 03:43 Test 10/24/24 03:43 Range/Units Serum Glucose 114 H 74-106 mg/dL Assessment/Plan Impression: Acute hypoxic respiratory failure On mechanical ventilator s/p cardiac arrest Ventricular tachycardia CPR <5 min Elevated troponin Atelectasis Events: Pt seen and examined in ICU Remains on mechanical ventilation AC mode with RR 18, VT 450, PEEP 5, FiO2 30% Off sedation for 48 hours, patient continues unresponsive. S/p CPAP yesterday, PS 16, PEEP of 5 - tolerated for 45 minutes. Continue daily CPAP trials. Neurology recs appreciated. Off pressors, hemodynamically stable Continue antibiotics Continue antifungal Monitor blood pressure Follow up Cardiology recommendations Continue diuresis with Lasix as tolerated Monitor renal function Monitor electrolytes. Supplement as necessary. Potassium supplementation Clinimix for nutritional support Awaiting for mental status to improve for extubation. Labs and imaging reviewed. Plan: s/p intubation on mechanical ventilator. Titrate FIO2 to keep O2 saturation above 90%. VAP bundle. Daily ABG and CXR while intubated Off sedation Pressors as necessary for hemodynamic support. Titrate to keep MAP greater than 65 mmHg. Patient is s/p pacemaker Follow up Cardiology recs Continue antibiotics. F/u cultures. Continue antifungal Accu-Cheks, ISS PRN. Monitor labs Monitor renal function Monitor electrolytes. Supplement as necessary. Monitor ins and outs. F/u Cardiology recs. DVT prophylaxis. Prognosis: Poor given patient's multiple co-morbidities. Condition: Critical Rest of plan per hospitalist and other consultants. A total of 35 minutes of critical care time was spent reviewing the patient record, examining the patient, making a diagnostic and therapeutic plan, discussing this plan with the medical personnel, following up on diagnostic studies and following the patient for clinical stability excluding any and all procedures. At least 50% of this time was spent in direct, [id number] contact. Thank you, YURI Gomez, for allowing me to participate in this patient's care. Further recommendations will depend on the patient's clinical course. Please do not hesitate to contact me if you have any questions or concerns. This medical document was created using an electronic medical record system with [email or web address] dictation system. Although these documentations are being carefully reviewed, there may still be some phonetic and typographical changes. The errors are purely typographical, due to imperfection on the software program, and do not reflect any compromise in the patient's medical care. Dietary Evaluation Review Comments: 1) TF Jevity 1.2Cal @ 55 ml/hr. x 24hr along with Pro-stat 1 pk daily. Start @ 20ml/hr, increase 10ml/hr Q4H until goal is reached. TF @ goal volume provides 1684 kcal (100% energy needs), 88 gm protein (100% protein needs), 1065 ml free water. 2) Water flush 100ml Q4H if allowed, adjust PRN 3) Advance to cardiac diet as medically feasible 4) Monitor NPO status, lab values, wt trend, I/O Expected Outcomes/Goals: To meet >75% estimated needs within 7 days Lab values to improve Fu 2-3 days Plan discussed with: Other (CEE Oates) Critical Care Time(min): 35 KENNY FROST MD Oct 24, 2024 22:54
[2024-10-25] VITALS (103 sets, daily range): BP systolic 87–120; BP diastolic 45–74; PULSE 67–111; RESP 15–31; TEMP 97.7–99.3; O2SAT 99–100
[2024-10-25 03:53] LABS: Hemoglobin 7.2 g/dL (12.2-16.2); Mean Corpuscular Volume 93.2 fL (80.0-100.0)
[2024-10-25 03:58] LABS: Hematocrit 21.5 % (36.0-46.0); Mean Corpuscular Hemoglobin 31.4 pg (28.0-32.0)
[2024-10-25 03:59] LABS: Alkaline Phosphatase 88 U/L (46-116); Anion Gap 14 (5-15); BUN/Creatinine Ratio 37.6 (10.0-20.0); Carbon Dioxide 23 mmol/L (20-31); Magnesium 2.1 mg/dL (1.6-2.6); Total Protein 5.9 g/dL (5.7-8.2)
[2024-10-25 04:00] LABS: Albumin 3.3 g/dL (3.2-4.8); Bilirubin, Total 0.7 mg/dL (0.2-1.0)
[2024-10-25 04:16] LABS: Alanine Aminotransferase 42 U/L (7-40); Blood Urea Nitrogen 32 mg/dL (9-23); Calcium 8.5 mg/dL (8.7-10.4); Chloride 108 mmol/L (98-107); Glucose 128 mg/dL (74-106); Sodium 145 mmol/L (136-145)
[2024-10-25 04:17] LABS: Potassium 2.4 mmol/L (3.5-5.1)
[2024-10-25] MEDS: POTASSIUM CHL 20MEQ/100ML 100 ML IV SCH ×2 (04:33→21:22)
[2024-10-25 04:35] LABS: Nucleated Red Blood Cells % 1.0 %; Total Cells Counted 100.0 (100)
[2024-10-25 04:40] LABS: INR 2.56 (0.9-1.15); Partial Thromboplastin Time 27.1 SEC (24.5-34.5); Prothrombin Time 24.7 sec (9.3-11.8)
--- NOTE | 2024-10-25 05:33 | DVH ---
CHEST RADIOGRAPH Indication: INTUBATED Technique: 1 view Comparison: XY CHEST PORTABLE on DOS: 10/24/24, XY CHEST PORTABLE on DOS: 10/23/24, XY CHEST PORTABLE o n DOS: 10/22/24, XY CHEST XRAY 1 VIEW on DOS: 10/20/24, XY CHEST XRAY 1 VIEW on DOS: 10/19/24 FINDINGS: Lines and Tubes: Unchanged endotracheal tube, enteric tube, right IJ catheter and implanted cardiac d evice. Lungs/Pleura: Unchanged. Cardiomediastinum: Unchanged. Other: Unchanged osseous structures. IMPRESSION: 1. No significant change from the previous study. Stable support devices. Similar findings of heart failure including left pleural effusion.
[2024-10-25 06:23] LABS: Base Excess -0.4 mmol/L (-2.0-3.0)
--- NOTE | 2024-10-25 08:14 | DVHPN2 ---
Progress Note - Dictate Date Seen: Oct 25, 2024 Has the PT tested + for MRSA If YES, has PT been informed?: No Medical Necessity Reason Pt with a Central, PICC or Fol: Yes The following are medically ne: Cutler Catheter Reason for cutler catheter: Strict I&O vital signs Vital Sign Date Time Temp Pulse Resp B/P (MAP) Pulse Ox O2 Delivery O2 Flow Rate FiO2 10/25/24 07:00 98.6 86 17 106/67 (80) 100 209.5 10/25/24 06:23 30 10/25/24 06:00 Mechanical Ventilator+ Total Intake and Output 10/24/24 10/24/24 10/25/24 15:00 23:00 07:00 Intake Total 200 ml 140 ml 281 ml Output Total 900 ml 850 ml Balance 200 ml -760 ml -569 ml medications Current Medications Medications Dose Ordered Sig/Liliam Route Start Time Stop Time Status Last Admin Dose Admin Midazolam HCl 50 ml @ 1 mls/hr Q24H IV 10/07/24 04:45 10/21/24 07:28 4 MLS/HR Ondansetron HCl 4 mg Q4HP PRN IV 10/07/24 10:00 Nitroglycerin 0.4 mg Q5MINP PRN SL 10/07/24 10:00 Pantoprazole Sodium 40 mg DAILY IV 10/07/24 10:00 10/24/24 10:11 40 MG Mexiletine HCl 150 mg TID GT 10/08/24 22:00 10/25/24 06:07 150 MG Acetaminophen 500 mg Q6HP PRN PO 10/08/24 22:30 10/19/24 03:18 500 MG Enteral Nutritional Formula 1,000 ml 55ML/HR GT 10/09/24 18:45 10/22/24 18:55 1,000 ML Phenylephrine HCl 80 mg/Sodium Chloride 250 ml @ 7.5 mls/hr Q24H IV 10/10/24 09:30 10/19/24 21:57 15 MLS/HR Furosemide 20 mg BIDD IV 10/12/24 18:00 10/25/24 06:13 20 MG Esmolol HCl 250 ml @ 0 mls/hr Q0M IV 10/14/24 10:45 Amino Acids 0 ml @ 0 mls/hr PER PHARMACY IV 10/15/24 18:45 Cancel Dextrose 50 ml UD IV 10/16/24 09:30 Cancel Fentanyl Citrate 250 ml @ 2.5 mls/hr Q24H IV 10/16/24 13:00 10/22/24 05:03 5 MLS/HR Polyethylene Glycol 17 gm DAILYPRN PRN GT 10/17/24 16:45 10/19/24 05:54 17 GM Doxycycline Monohydrate 100 mg Q12HR NG 10/18/24 10:00 10/24/24 22:26 100 MG Piperacillin Sod/ Tazobactam Sod 100 ml @ 25 mls/hr Q8HR IV 10/19/24 14:00 10/25/24 06:21 25 MLS/HR Hydrocortisone Sodium Succinate 50 mg Q6HR IV 10/19/24 18:00 10/25/24 06:11 50 MG Vancomycin HCl 0 ml @ 0 mls/hr UD IV 10/19/24 14:00 Cancel Vasopressin 20 units/Sodium Chloride 100 ml @ 9 mls/hr Q11H7M IV 10/19/24 15:45 Amino Acid Protein 30 ml DAILY GT 10/22/24 10:00 10/24/24 10:11 30 ML Fluconazole 100 ml @ 100 mls/hr DAILY IV 10/22/24 14:00 10/24/24 10:11 100 MLS/HR Apixaban 2.5 mg BID PO 10/25/24 10:00 Future Hold Metoclopramide HCl 5 mg BID IV 10/25/24 10:00 Potassium Chloride 100 ml @ 50 mls/hr Q2H IV 10/25/24 04:30 10/25/24 12:29 10/25/24 06:25 50 MLS/HR laboratory and microbiology Laboratory Tests 10/25/24 02:38 Test 10/25/24 02:38 Range/Units Serum Glucose 128 H 74-106 mg/dL Assessment/Plan Still intubated and in ICU. Off pressure support. Off sedation, still not regaining higher brain function. Patient is a 54-year-old female who was brought to the hospital for witnessed syncope. She is intubated and is being managed in ICU. Information was obtained by reviewing the chart and communicating with patient's son (over the phone). Family recognized witnessed syncope and started CPR and called EMS. Reportedly, EMS found the patient in ventricular fibrillation and shocked the patient and brought the patient to the hospital. Patient was intubated in emergency room and transferred to ICU. Patient was on amiodarone drip. Later the patient had ventricular tachycardia (Systane). High sensitive troponin had been minimally/flatly elevated. Presentation was not in favor of acute coronary syndrome. Cardiology is involved for cardiac aspects of care. Intubated. Noncommunicative. No JVD. Mucosa pale. No carotid bruit. Scattered rhonchi in the lungs is heard. Cardiac: Regular, no thrill. Systolic murmur 2/6 in apex is heard. Abdomen is soft. No edema in extremities. Past medical history as per son: Congenital heart disease, status post bypass WBC: 14.5 - 11.9 - 18.8 - 20.0 - 21.2 - 14.3 - 10.3 - 8.9 - 9.2 - 11.1 - 12.1 - 10.8 - 12.0 - 9.9 - 15.4 - 14.8 - 12.1 - 10.5 - 5.8 - 5.3 - 4.2 Hemoglobin: 10.1 - 9.6 - 9.2 - 8.8 - 8.7 - 8.0 - 8.3 - 8.5 - 7.8 - 10.2 - 10.7 - 9.9 - 9.7 - 9.3 - 9.3 - 8.6 - 8.1 - 7.4 - 7.5 - 7.4 - 7.5 - 7.2 Creatinine: 0.95 - 0.93 - 0.87 - 0.83 - 0.83 - 0.76 - 0.68 - 0.72 - 0.79 - 0.76 - 0.80 - 0.84 - 0.61 - 0.65 - 0.74 - 0.64 - 0.73 - 0.82 - 0.88 - 1.03 - 0.99 - 0.85 Potassium: 3.4 - 4.0 - 4.6 - 3.5 - 3.3 - 4.1 - 3.7 - 3.2 - 3.7 - 4.0 - 3.2 - 3.4 - 3.9 - 4.2 - 3.3 - 3.8 - 3.6 - 3.4 - 4.2 - 3.8 - 4.5 - 4.1 - 3.5 - 4.2 - 3.3 - 2.6 - 3.5 - 3.8 - 2.4 Magnesium: 2.0 - 1.6 - 2.0 - 3.0 - 1.5 - 1.9 - 2.1 - 1.8 - 2.0 - 1.9 - 1.9 - 2.6 - 2.0 - 1.8 - 1.6 - 2.0 - 2.2 - 1.9 - 2.3 - 2.2 - 2.2 - 2.1 Troponin (high sensitive): 141 - 138 - 117 BNP: 457.16 AST/ALT: 32/11 - 19/13 - 538/168 - 293/152 - 131/130 - 78/94 - 68/74 - 48/57 - 27/38 - 15/23 - 20/18 - 23/17 - 29/16 - 27/13 - 34/17 - 73/49 - 41/43 - 30/47 - 30/42 Digoxin level: 2.83 - 1.25 - 0.98 UDS: non-revealing Chest x-ray revealed: Lines and Tubes: Endotracheal tube tip projects approximately 1.4 cm above the level of the tyler. Enteric catheter courses below the lateral of the diaphragm and terminates beyond the inferior margin of the image. Right internal jugular central venous catheter terminates within the distal superior vena cava. Lungs: Moderate diffuse increased prominence of the pulmonary vasculature without evidence of focal consolidation. Pleura: No effusion. No pneumothorax. Cardiomediastinal contours: Cardiomegaly. Bones: Unremarkable IMPRESSION: 1. Cardiomegaly and diffuse increased prominence of the pulmonary vasculature. 2. Lines and tubes as above. Repeat chest x-ray revealed: IMPRESSION: 1. Endotracheal tube tip 1.6 cm above the tyler; consider 2 cm retraction 2. Mild pulmonary vascular congestion. Moderate cardiomegaly. Repeat chest xry revealed: IMPRESSION: Endotracheal tube tip 1.6 cm above the tyler; consider 2 cm retraction Mild pulmonary vascular congestion. Moderate cardiomegaly. Repeat chest xry revealed: IMPRESSION: 1. Stable cardiomegaly, small left pleural effusion and mild diffuse increased prominence of the pulmonary vasculature. 2. Repositioned endotracheal tube as above. Remaining lines and tubes unchanged. Repeat chest xry revealed: IMPRESSION: 1. Cardiomegaly, stable diffuse increased prominence of the pulmonary vasculature and small bilateral pleural effusions. 2. Slight interval advancement of endotracheal tube as above. Remaining lines and tubes unchanged. Repeat chest xry revealed: IMPRESSION: 1. Slight interval decrease in diffuse increased prominence of the pulmonary vasculature. 2. Stable cardiomegaly and small left pleural effusion. 3. Lines and tubes unchanged. Repeat chest xry revealed: IMPRESSION: 1. Cardiomegaly and small left pleural effusion. 2. Lines and tubes unchanged. Repeat chest xry revealed: IMPRESSION: Stable lines and tubes. Similar lung aeration. Repeat chest xry revealed: IMPRESSION: Cardiomegaly and small left pleural effusion. Lines and tubes unchanged. Repeat chest xry revealed: IMPRESSION: Placement of a cardiac pacer, no pneumothorax is seen. Stable lines and tubes. Repeat chest xry revealed: IMPRESSION: 1. Worsening mixed opacities in the right lower lung. No other significant change from the previous study. Stable support devices. Repeat chest xry revealed: Heart is prominent in size with postsurgical changes, median sternotomy wires, and a single lead left cardiac defibrillator. Support lines and tubes appear unchanged in satisfactory in position. No sizable effusion or pneumothorax. Mild pulmonary vascular congestion. No significant interval change. Repeat chest xry revealed: IMPRESSION: 1. No significant change from the previous study. Stable support devices. Similar findings of heart failure including left pleural effusion. KUB revealed: IMPRESSION: Nonobstructive bowel gas pattern. Nasogastric tube tip in the stomach. Large stool burden. Left upper ext arterial duplex: IMPRESSION: No hemodynamically significant stenosis based on peak systolic velocity criteria. Left lower ext arterial duplex: IMPRESSION: There is no evidence for peripheral vascular insufficiency in the left lower extremity. No significant focal stenosis is identified. Liver Ultrasound revealed: Hepatic steatosis. Hepatomegaly. Cholelithiasis. CT of the head revealed: IMPRESSION: No acute intracranial abnormality. Repeat CT of head revealed: IMPRESSION: No acute intracranial abnormality. Echocardiogram reported: lvef 15-20% dilated LV severe global dysfunction mild RV dysfunction biatrial enlargement mild moderate MAC, moderate mitral regurg mild to moderate aortic regug (images of echo reviewed and questioned presence of mitral ring and also some component (moderate of Mitral stenosis) EKG revealed sinus rhythm Telemetry revealed occasions of atrial fibrillation. There was occasional sustained ventricular tachycardia. EMS tele monitor revealed ventricular fibrillation for which the patient was shocked. Has remained sinus rhythm. Later with A-fib with MVR LHC revealed: Patent RICHMOND to LAD; Patent SVG to obtuse marginal; LVEF of 20% with increased EDP; Proximal disease in LAD/LCX RICHIE was performed: Consistent with severely reduced LVEF. Consistent with previously implanted Mitral ring, Up to moderate Mitral stenosis/Mitral Regurgitation and also Moderate Aortic insufficiency. Patient is a 54-year-old female who presented with witnessed syncope. She was found to have ventricular fibrillation for which was shocked. Later had repeated episode of sustained ventricular tachycardia. Patient has been kept in ICU. Does have baseline history of coronary artery disease for which has had bypass surgery. Left heart catheterization was performed which revealed patent RICHMOND and patent SVG. ACS is not considered at this point. It is of note that the patient's echocardiogram reveals significantly use systolic function. Valvular heart disease is considered. Findings are in favor of previously implanted mitral ring. By reviewing the echo images, component of up to moderate mitral stenosis could not be ruled out. LHC was performed that ruled out any active specific ischemia as an etiology for presentation. Is off Amiodarone for abnormal LFT. Being followed by Nephrology / Pulmonary / Neurology / GI ID. Tele has remained sinus rhythm. Had episode of a-fib with RVR. Was loaded with Digoxin. Dig level was performed at wrong timing (only 5 hours after the last Dig given). Dig toxicity is not considered. Patient is back to normal sinus rhythm. Has good kidney function. Repeat Dig level is acceptable level. s/p ICD implantation by EP Syncope V-fib s/p shock Sustained V-tach Paroxysmal A-fib VHD, s/p Mitral ring Systolic heart failure Abnormal LFT, resolved s/p ICD (Biotronik) implantation by EP (Dr Armstrong) Cardiac suggestion for management: Manage in ICU Follow up electrolytes and kidney function test and correct abnormalities Full anticoagulation (a-fib with high CHADS-Vasc score). s/p ICD implantation. As per oral communication by Dr Armstrong (EP), we can change the A/C to Eliquis Off Amio drip (worsened LFT) (personally discussed with EP: Dr Armstrong who advised to stop / not to restart Amiodarone) On Mexiletine If need for pressure support: use Phenyl Ephrine / vasopressin, keep MAP above 65 (for now off pressure support and tolerating) May consider Esmolol for PVC/Vtach s/p ICD (Biotronik) implantation by EP Off warfarin: Eliquis: 2.5 mg BID (only after INR is below 2.0) Pulmonary Follow up Provide previous medical records from reaching out to previous hospitals in [facility]... Further evaluation and management depends on the above and clinical course. A total of 75 minutes was spent reviewing the patient record, examining the patient, making a diagnostic and therapeutic plan, discussing this plan with medical personnel, following up on diagnostic studies and following the patient for clinical stability excluding any and all procedures. At least 50% of this time was spent in direct, [id number] contact. Thank you for allowing me to participate in this patient's care. Further recommendations will depend on patient's clinical course. Please do not hesitate to contact me if you have any questions or concerns. This medical document was created using electronic medical record system with [employer] computerized dictation system. Although this document has been carefully reviewed, there may still be some phonetic and typographical errors. These areas are purely typographical due to the imperfection of the software programs, and do not reflect any compromise in the patient's medical care. Dietary Evaluation Review Comments: 1) TF Jevity 1.2Cal @ 55 ml/hr. x 24hr along with Pro-stat 1 pk daily. Start @ 20ml/hr, increase 10ml/hr Q4H until goal is reached. TF @ goal volume provides 1684 kcal (100% energy needs), 88 gm protein (100% protein needs), 1065 ml free water. 2) Water flush 100ml Q4H if allowed, adjust PRN 3) Advance to cardiac diet as medically feasible 4) Monitor NPO status, lab values, wt trend, I/O Expected Outcomes/Goals: To meet >75% estimated needs within 7 days Lab values to improve Fu 2-3 days Plan discussed with: Other (nurse) CORDELL VERA MD Oct 25, 2024 08:14
[2024-10-25] MEDS: METOCLOPRAMIDE HCL 5MG/ml INJ 2ml VIAL IV SCH (09:49)
[2024-10-25] MEDS ORDERED: APIXABAN 2.5 MG TAB PO SCH (10:00)
--- NOTE | 2024-10-25 10:41 | DVHPN2 ---
Progress Note - Dictate Date Seen: Oct 25, 2024 Has the PT tested + for MRSA If YES, has PT been informed?: No Medical Necessity Reason Pt with a Central, PICC or Fol: Yes The following are medically ne: Cutler Catheter Reason for cutler catheter: Strict I&O Subjective Ms. Smith is a 54 years old female who was brought to the [facility] on 10/07/2024 with a chief complaint of cardiopulmonary arrest/status post CPR. I have seen and examined the patient, I have discussed with her nurse, she is intubated, awake, on CPAP, but she does not follow verbal commands. She only moves the hands She received pacemaker insertion on 10/17/2024 Blood culture, 10/09/2024: No growth Blood culture, 10/19/2024: UDS, 10/07/2024: Negative Urinalysis, 10/07/2024: Leukocyte esterase: Negative WBC/HB/PLT/MCV, 10/09/2024: 20/8.8/219/94.6, 10/10/2024: 21.2/8.7/232/92.2 PT/INR/PTT, 10/08/2024: 12.4/1.19/72.7, 10/09/2024: 13.1/1.26/68.9, 10/10/2024: 14.4/2/1.38/35.3 CMP, 10/08/2024: Unremarkable Troponin one high sensitivity, 10/07/2024: 141, 138, 117 TBI/AST/ALT/AP, 10/10/2024: 0.5/538/168/144, 10/11/2024: 0.6/293/199/152, 10/14/2024: 0.8/68/74/124 TG/HDL/LDL/HDL, 10/07/24: 71/66/31/21 Echocardiogram, 10/07/2024: lvef 15-20% dilated LV severe global dysfunction mild RV dysfunction biatrial enlargement mild moderate MAC, moderate mitral regurg mild to moderate aortic regug RICHIE, 10/08/2024: 1. Left ventricle: Dilated LV was seen. LVEF was 25%. There was diffuse hypokinesis of left ventricle. 2. Right ventricle: RV was mildly dilated. 3. Left atrium: LA enlarged 4. Right atrium: RA was enlarged. 5. Mitral valve: Mitral was thickened with reduced opening. Moderate Mitral regurgitation was seen. Planinomentry of valve (TTE images also obtained) revealed MVA of 2.1 cm. Mean pressure gradient (obtained from limited TTE images) was 5. Images are consistent with previously implanted Ring in Mitral position. Consistent with up to Moderate Mitral stenosis. . There was no vegetation 6. Left atrial appendage: No evidence of thrombus. 7. Aortic valve: Trileaflet valve. No stenosis. Up to moderate Aortic Insufficiency was seen. There was no vegetation 8. Pulmonic valve: Trivial pulmonic insufficiency. No significant stenosis. 9. Tricuspid valve: Mild tricuspid regurgitation. There was no vegetation 10. Interatrial septum: Negative color flow for right to left shunt was observed. Bubble study was performed: negative for shunt 11. Pericardium: No significant effusion. 12. Thoracic aorta: No significant plaquing. Chest x-ray, 10/27/2024: 1. Cardiomegaly, stable diffuse increased prominence of the pulmonary vasculature and small bilateral pleural effusions. 2. Slight interval advancement of endotracheal tube as above. Remaining lines and tubes unchanged. CT head, 10/07/2024: No acute intracranial abnormality General: the patient is well developed and nourished. No acute distress. Intubated CT head, 10/07/2024: No acute intracranial abnormality. CT head, 10/11/2024: No acute intracranial abnormality vital signs Vital Sign Date Time Temp Pulse Resp B/P (MAP) Pulse Ox O2 Delivery O2 Flow Rate FiO2 10/25/24 10:20 107 18 102/61 (75) 100 30 10/25/24 10:15 98.8 209.8 10/25/24 10:00 Mechanical Ventilator+ Total Intake and Output 10/24/24 10/24/24 10/25/24 15:00 23:00 07:00 Intake Total 200 ml 140 ml 356 ml Output Total 900 ml 850 ml Balance 200 ml -760 ml -494 ml medications Current Medications Medications Dose Ordered Sig/Liliam Route Start Time Stop Time Status Last Admin Dose Admin Midazolam HCl 50 ml @ 1 mls/hr Q24H IV 10/07/24 04:45 10/21/24 07:28 4 MLS/HR Ondansetron HCl 4 mg Q4HP PRN IV 10/07/24 10:00 Nitroglycerin 0.4 mg Q5MINP PRN SL 10/07/24 10:00 Pantoprazole Sodium 40 mg DAILY IV 10/07/24 10:00 10/25/24 09:49 40 MG Mexiletine HCl 150 mg TID GT 10/08/24 22:00 10/25/24 06:07 150 MG Acetaminophen 500 mg Q6HP PRN PO 10/08/24 22:30 10/19/24 03:18 500 MG Enteral Nutritional Formula 1,000 ml 55ML/HR GT 10/09/24 18:45 10/22/24 18:55 1,000 ML Phenylephrine HCl 80 mg/Sodium Chloride 250 ml @ 7.5 mls/hr Q24H IV 10/10/24 09:30 10/19/24 21:57 15 MLS/HR Furosemide 20 mg BIDD IV 10/12/24 18:00 10/25/24 06:13 20 MG Esmolol HCl 250 ml @ 0 mls/hr Q0M IV 10/14/24 10:45 Amino Acids 0 ml @ 0 mls/hr PER PHARMACY IV 10/15/24 18:45 Cancel Dextrose 50 ml UD IV 10/16/24 09:30 Cancel Fentanyl Citrate 250 ml @ 2.5 mls/hr Q24H IV 10/16/24 13:00 10/22/24 05:03 5 MLS/HR Polyethylene Glycol 17 gm DAILYPRN PRN GT 10/17/24 16:45 10/19/24 05:54 17 GM Doxycycline Monohydrate 100 mg Q12HR NG 10/18/24 10:00 10/25/24 09:49 100 MG Piperacillin Sod/ Tazobactam Sod 100 ml @ 25 mls/hr Q8HR IV 10/19/24 14:00 10/25/24 06:21 25 MLS/HR Hydrocortisone Sodium Succinate 50 mg Q6HR IV 10/19/24 18:00 10/25/24 06:11 50 MG Vancomycin HCl 0 ml @ 0 mls/hr UD IV 10/19/24 14:00 Cancel Vasopressin 20 units/Sodium Chloride 100 ml @ 9 mls/hr Q11H7M IV 10/19/24 15:45 Amino Acid Protein 30 ml DAILY GT 10/22/24 10:00 10/25/24 09:50 30 ML Fluconazole 100 ml @ 100 mls/hr DAILY IV 10/22/24 14:00 10/25/24 09:49 100 MLS/HR Apixaban 2.5 mg BID PO 10/25/24 10:00 Hold Metoclopramide HCl 5 mg BID IV 10/25/24 10:00 10/25/24 09:49 5 MG Potassium Chloride 100 ml @ 50 mls/hr Q2H IV 10/25/24 04:30 10/25/24 12:29 10/25/24 08:34 50 MLS/HR objective The patient is well-nourished and well-developed with no distress. The patient is intubated MENTAL STATUS: Subjective CRANIAL NERVES: Pupils are equal, round and reactive.There are corneal reflexes and doll's eyes phenomenon. No signs of facial weakness. There are gagging or coughing reflexes SENSATION: Responses to pain stimuli. MOTOR: Normal tone in the upper and lower extremity. Normal muscle bulk. No fasciculations. No spontaneous movement. REFLEXES: Deep tendon reflexes are symmetrical. No pathological reflexes. CEREBELLAR/COORDINATION: Deferred GAIT/STATION: deferred. laboratory and microbiology Laboratory Tests 10/25/24 02:38 Test 10/25/24 02:38 Range/Units Serum Glucose 128 H 74-106 mg/dL Problem List Cardiopulmonary arrest Status post CPR Metabolic encephalopathy Hypoxic encephalopathy Congestive heart failure Leukocytosis/sepsis/septic shock Respiratory failure Elevated liver function tests S/P pacemaker insertion on 10/17/2024 Assessment/Plan Monitoring Supportive treatment ICU care Stabilize vitals Respiratory support/vent management Hold off Lipitor (elevated liver function tests), LDL (31) (home medications included Lipitor 40 mg daily) DVT prophylaxis GI prophylaxis Cardiology on case Pulmonology on case Nephrology on case Consult GI Re: Elevated liver function tests Need more history Extubation when she is ready This medical document was created using an electronic medical record system with [employer] dictation system. Although this document has been carefully reviewed, there may still be some phonetic and typographical errors. These areas are purely typographical due to imperfections of the software programs, and do not reflect any compromise in the patient's medical care. Prognosis Guarded Dietary Evaluation Review Comments: 1) TF Jevity 1.2Cal @ 55 ml/hr. x 24hr along with Pro-stat 1 pk daily. Start @ 20ml/hr, increase 10ml/hr Q4H until goal is reached. TF @ goal volume provides 1684 kcal (100% energy needs), 88 gm protein (100% protein needs), 1065 ml free water. 2) Water flush 100ml Q4H if allowed, adjust PRN 3) Advance to cardiac diet as medically feasible 4) Monitor NPO status, lab values, wt trend, I/O Expected Outcomes/Goals: To meet >75% estimated needs within 7 days Lab values to improve Fu 2-3 days Plan discussed with: Other CAROLINE ROBB MD Oct 25, 2024 10:41
--- NOTE | 2024-10-25 10:50 | DVHPN2 ---
Progress Note Date Seen: Oct 25, 2024 Resident Creating Document: ETHAN SWAN RESIDENT Has the PT tested + for MRSA If YES, has PT been informed?: No Medical Necessity Reason Pt with a Central, PICC or Fol: Yes The following are medically ne: Cutler Catheter Reason for cutler catheter: Strict I&O Subjective Review of Systems 54-year-old female with past medical history of paroxysmal atrial fibrillation, congenital heart disease who initially presented to the hospital s/p cardiac arrest, patient collapsed while seated on the dining table witnessed by . CPR was performed by EMS and patient was noted to have V-tach/VFib and received 200 joules shock. The next day during hospitalization, patient went into pulseless V-tach in subsequently ROS was achieved. Patient seen and examined at bedside, remains intubated, sedated and mechanically ventilated CPAP today was unsuccessful S/p AICD stapled removal Liver function tests have downtrended appropriately 2 soft watery bowel movements in the last 24 hours Objective vital signs Vital Sign Date Time Temp Pulse Resp B/P (MAP) Pulse Ox O2 Delivery O2 Flow Rate FiO2 10/25/24 10:20 107 18 102/61 (75) 100 30 10/25/24 10:15 98.8 209.8 10/25/24 10:00 Mechanical Ventilator+ Total Intake and Output 10/24/24 10/24/24 10/25/24 15:00 23:00 07:00 Intake Total 200 ml 140 ml 356 ml Output Total 900 ml 850 ml Balance 200 ml -760 ml -494 ml medications Current Medications Medications Dose Ordered Sig/Liliam Route Start Time Stop Time Status Last Admin Dose Admin Midazolam HCl 50 ml @ 1 mls/hr Q24H IV 10/07/24 04:45 10/21/24 07:28 4 MLS/HR Ondansetron HCl 4 mg Q4HP PRN IV 10/07/24 10:00 Nitroglycerin 0.4 mg Q5MINP PRN SL 10/07/24 10:00 Pantoprazole Sodium 40 mg DAILY IV 10/07/24 10:00 10/25/24 09:49 40 MG Mexiletine HCl 150 mg TID GT 10/08/24 22:00 10/25/24 06:07 150 MG Acetaminophen 500 mg Q6HP PRN PO 10/08/24 22:30 10/19/24 03:18 500 MG Enteral Nutritional Formula 1,000 ml 55ML/HR GT 10/09/24 18:45 10/22/24 18:55 1,000 ML Phenylephrine HCl 80 mg/Sodium Chloride 250 ml @ 7.5 mls/hr Q24H IV 10/10/24 09:30 10/19/24 21:57 15 MLS/HR Furosemide 20 mg BIDD IV 10/12/24 18:00 10/25/24 06:13 20 MG Esmolol HCl 250 ml @ 0 mls/hr Q0M IV 10/14/24 10:45 Amino Acids 0 ml @ 0 mls/hr PER PHARMACY IV 10/15/24 18:45 Cancel Dextrose 50 ml UD IV 10/16/24 09:30 Cancel Fentanyl Citrate 250 ml @ 2.5 mls/hr Q24H IV 10/16/24 13:00 10/22/24 05:03 5 MLS/HR Polyethylene Glycol 17 gm DAILYPRN PRN GT 10/17/24 16:45 10/19/24 05:54 17 GM Doxycycline Monohydrate 100 mg Q12HR NG 10/18/24 10:00 10/25/24 09:49 100 MG Piperacillin Sod/ Tazobactam Sod 100 ml @ 25 mls/hr Q8HR IV 10/19/24 14:00 10/25/24 06:21 25 MLS/HR Hydrocortisone Sodium Succinate 50 mg Q6HR IV 10/19/24 18:00 10/25/24 06:11 50 MG Vancomycin HCl 0 ml @ 0 mls/hr UD IV 10/19/24 14:00 Cancel Vasopressin 20 units/Sodium Chloride 100 ml @ 9 mls/hr Q11H7M IV 10/19/24 15:45 Amino Acid Protein 30 ml DAILY GT 10/22/24 10:00 10/25/24 09:50 30 ML Fluconazole 100 ml @ 100 mls/hr DAILY IV 10/22/24 14:00 10/25/24 09:49 100 MLS/HR Apixaban 2.5 mg BID PO 10/25/24 10:00 Hold Metoclopramide HCl 5 mg BID IV 10/25/24 10:00 10/25/24 09:49 5 MG Potassium Chloride 100 ml @ 50 mls/hr Q2H IV 10/25/24 04:30 10/25/24 12:29 10/25/24 08:34 50 MLS/HR Examination General Appearance: Sedated, intubated on mechanical ventilation Head Exam: Normal inspection. Constricted equal and reactive pupils Neck Exam: Normal inspection. Non-tender. Normal alignment Pulmonary/Respiratory: Chest non-tender. Trace crackles Peripheral Pulses 2+ Pedal (R). 2+ Pedal (L) Abdominal Exam: Normal bowel sounds. Soft. normal abdomen, no visible veins, No hepatospenomegaly. No masses Skin Exam: Normal inspection. Normal color. Warm. Dry laboratory and microbiology Laboratory Tests 10/25/24 02:38 Test 10/25/24 02:38 Range/Units Serum Glucose 128 H 74-106 mg/dL Microbiology Date/Time Source Procedure Growth Status 10/20/24 04:00 Sputum Gram Stain - Final Complete 10/20/24 04:00 Respiratory Culture - Final Enterobacter cloacae Yeast, not Ilda albicans Complete 10/20/24 01:03 Urine - Cutler [place] Urine Culture - Final Yeast, not Ilda albicans Complete 10/19/24 13:02 Blood Blood Culture - Final NO GROWTH AFTER 5 DAYS OF INCUBATION. Complete 10/07/24 16:50 Nose MRSA Screen - Final Complete Labs and/or images reviewed: Labs reviewed by me, Image(s) reviewed by me Problem List/Assessment/Plan Problem List/Assessment/Plan Ventricular fibrillation S/p cardiopulmonary arrest with shock Heart failure with reduced ejection fraction 15-20% Metabolic versus hypoxic encephalopathy Acute hepatocellular injury likely shock liver Cholelithiasis without acute inflammation Nonalcoholic fatty liver disease with steatohepatitis Community-acquired pneumonia growing Enterobacter Plan: Liver function tests have downtrended Hemoglobin 7.2, transfuse if HB 7 or less Continue tube feedings Serum ferritin, JAIDEN CPAP trial again tomorrow Decreased metoclopramide to 5 mg IV b.i.d. Thank you so much for the opportunity to consult on your patient. GI team will follow the patient. In case of any questions or concerns please feel free to reach out. Plan discussed with Dr. Anglin Plan discussed with: Other (RN) My Orders My Orders Orders - ETHAN SWAN RESIDENT Procedure Category Date Status Time Metoclopramide PHA 10/25/24 In Process Injection (Reglan 10:00 Dietary Evaluation Review Comments: 1) TF Jevity 1.2Cal @ 55 ml/hr. x 24hr along with Pro-stat 1 pk daily. Start @ 20ml/hr, increase 10ml/hr Q4H until goal is reached. TF @ goal volume provides 1684 kcal (100% energy needs), 88 gm protein (100% protein needs), 1065 ml free water. 2) Water flush 100ml Q4H if allowed, adjust PRN 3) Advance to cardiac diet as medically feasible 4) Monitor NPO status, lab values, wt trend, I/O Expected Outcomes/Goals: To meet >75% estimated needs within 7 days Lab values to improve Fu 2-3 days ETHAN SWAN RESIDENT Oct 25, 2024 10:50
--- NOTE | 2024-10-25 11:17 | DVHPN2 ---
Progress Note - Dictate Date Seen: Oct 25, 2024 Has the PT tested + for MRSA If YES, has PT been informed?: No Medical Necessity Reason Pt with a Central, PICC or Fol: Yes The following are medically ne: Cutler Catheter Reason for cutler catheter: Strict I&O vital signs Vital Sign Date Time Temp Pulse Resp B/P (MAP) Pulse Ox O2 Delivery O2 Flow Rate FiO2 10/25/24 10:20 107 18 102/61 (75) 100 30 10/25/24 10:15 98.8 209.8 10/25/24 10:00 Mechanical Ventilator+ Total Intake and Output 10/24/24 10/24/24 10/25/24 15:00 23:00 07:00 Intake Total 200 ml 140 ml 356 ml Output Total 900 ml 850 ml Balance 200 ml -760 ml -494 ml medications Current Medications Medications Dose Ordered Sig/Liliam Route Start Time Stop Time Status Last Admin Dose Admin Midazolam HCl 50 ml @ 1 mls/hr Q24H IV 10/07/24 04:45 10/21/24 07:28 4 MLS/HR Ondansetron HCl 4 mg Q4HP PRN IV 10/07/24 10:00 Nitroglycerin 0.4 mg Q5MINP PRN SL 10/07/24 10:00 Pantoprazole Sodium 40 mg DAILY IV 10/07/24 10:00 10/25/24 09:49 40 MG Mexiletine HCl 150 mg TID GT 10/08/24 22:00 10/25/24 06:07 150 MG Acetaminophen 500 mg Q6HP PRN PO 10/08/24 22:30 10/19/24 03:18 500 MG Enteral Nutritional Formula 1,000 ml 55ML/HR GT 10/09/24 18:45 10/22/24 18:55 1,000 ML Phenylephrine HCl 80 mg/Sodium Chloride 250 ml @ 7.5 mls/hr Q24H IV 10/10/24 09:30 10/19/24 21:57 15 MLS/HR Furosemide 20 mg BIDD IV 10/12/24 18:00 10/25/24 06:13 20 MG Esmolol HCl 250 ml @ 0 mls/hr Q0M IV 10/14/24 10:45 Amino Acids 0 ml @ 0 mls/hr PER PHARMACY IV 10/15/24 18:45 Cancel Dextrose 50 ml UD IV 10/16/24 09:30 Cancel Fentanyl Citrate 250 ml @ 2.5 mls/hr Q24H IV 10/16/24 13:00 10/22/24 05:03 5 MLS/HR Polyethylene Glycol 17 gm DAILYPRN PRN GT 10/17/24 16:45 10/19/24 05:54 17 GM Doxycycline Monohydrate 100 mg Q12HR NG 10/18/24 10:00 10/25/24 09:49 100 MG Piperacillin Sod/ Tazobactam Sod 100 ml @ 25 mls/hr Q8HR IV 10/19/24 14:00 10/25/24 06:21 25 MLS/HR Hydrocortisone Sodium Succinate 50 mg Q6HR IV 10/19/24 18:00 10/25/24 06:11 50 MG Vancomycin HCl 0 ml @ 0 mls/hr UD IV 10/19/24 14:00 Cancel Vasopressin 20 units/Sodium Chloride 100 ml @ 9 mls/hr Q11H7M IV 10/19/24 15:45 Amino Acid Protein 30 ml DAILY GT 10/22/24 10:00 10/25/24 09:50 30 ML Fluconazole 100 ml @ 100 mls/hr DAILY IV 10/22/24 14:00 10/25/24 09:49 100 MLS/HR Apixaban 2.5 mg BID PO 10/25/24 10:00 Hold Metoclopramide HCl 5 mg BID IV 10/25/24 10:00 10/25/24 09:49 5 MG Potassium Chloride 100 ml @ 50 mls/hr Q2H IV 10/25/24 04:30 10/25/24 12:29 10/25/24 11:00 50 MLS/HR objective General Appearance: no distress HEENT: EOMI, PERRLA, normal external inspect of ears, no icterus, no nasal drainage Neck: no carotid bruit, no jugular venous distention (JVD), no lymphadenopathy Chest: normal thorax Respiratory: Intubated, clear to auscultation, normal air movement Cardiovascular: regular rate and rhythm, no diastolic murmur, no jugular venous distention (JVD), no rub, no systolic murmur Abdominal: soft, no hepatomegaly, no mass, no splenomegaly, no tenderness Genitourinary: grossly normal external Musculoskeletal: no joint tenderness, no swelling Extremities: normal pulses, no calf tenderness, no clubbing, no cyanosis, no edema Skin: no bruising, no jaundice, no rash Neurological: No focal deficit laboratory and microbiology Laboratory Tests 10/25/24 02:38 Test 10/25/24 02:38 Range/Units Serum Glucose 128 H 74-106 mg/dL Problem List Cardiac Arrest with Ventricular Fibrillation Assessment: Patient experienced cardiac arrest with ventricular fibrillation on 10/07/24, witnessed by family members who initiated CPR. EMS found the patient in ventricular fibrillation and administered shock therapy. Rhythm strip analysis confirmed ventricular fibrillation. Patient required intubation and sedation upon ED arrival. Currently admitted to ICU for close observation. Cardiology has been consulted and plans for AICD placement, likely on Tuesday. Infectious disease clearance has been obtained for the AICD procedure, addressing initial concerns of leukocytosis which is now improving. Status post-cardiac arrest. Plan: - Continue ICU monitoring - Proceed with AICD placement as planned (likely Tuesday), cleared by infectious disease. - Maintain intubation and sedation until AICD placement - Continue Heparin drip for paroxysmal atrial fibrillation - Continue Mexitil - DC amiodarone due to transaminitis - added esmolol drip per Cardiology for AFib and added push doses of digoxin Coronary Artery Disease Assessment: Patient with history of 2-vessel CABG (Coronary Artery Bypass Grafting). Surgical intervention previously performed to address significant coronary artery stenosis. Plan: - Continue medical management - Follow up with cardiology for ongoing coronary artery disease management Acute and Chronic Systolic Heart Failure Assessment: Patient has acute and chronic systolic heart failure with severely reduced left ventricular function. Ejection fraction is estimated at 15-20%. RICHIE findings are consistent with severely reduced left ventricular ejection fraction, previously implanted mitral ring, up to moderate mitral stenosis and regurgitation, and moderate aortic insufficiency. Plan: - Continue cardiology consultation - continue IV diuretics (IV Lasix) - Monitor renal function Acute Hypoxic Respiratory Failure Assessment: Patient is currently intubated due to acute hypoxic respiratory failure. Dr. Downey from pulmonology is managing this aspect of care. Plan: - Maintain current intubation as per pulmonology recommendation - Proceed with CPAP trials when deemed appropriate by pulmonology Transaminitis Assessment: Patient has elevated liver function tests, likely secondary to amiodarone use. Cardiology has discontinued amiodarone in response. Plan: - Monitor liver function tests - Amiodarone discontinued as per cardiology Enterobacter PNA Assessment: Sputum culture positive for Enterobacter. Plan: - Continue treatment with Eratapenem to complete 10 days regimen -Infectious disease consult Hemodynamic Support Assessment: Patient requires vasopressor support for hemodynamic stability. Plan: - Continue vasopressin - Continue neosynephrine Paroxysmal a fib -DC amiodarone -continue with heparin gtt Assessment/Plan Subjective: Patient remains on the ventilator. Objective: Patient apparently only lasted 10 minutes on her spontaneous breathing trial. Patient is currently on tube feedings. Patient was admitted status post cardiac arrest. Patient has sepsis with pneumonia. Patient has been doing daily spontaneous breathing trials. Patient also had status post AICD placement and status post SVT. Medications were adjusted by cardiology. Plan: Discussion of goals of care with son. Possible consult to director of social media marketing for [employer] borjas. Continue current treatment and daily breathing trials. Dietary Evaluation Review Comments: 1) TF Jevity 1.2Cal @ 55 ml/hr. x 24hr along with Pro-stat 1 pk daily. Start @ 20ml/hr, increase 10ml/hr Q4H until goal is reached. TF @ goal volume provides 1684 kcal (100% energy needs), 88 gm protein (100% protein needs), 1065 ml free water. 2) Water flush 100ml Q4H if allowed, adjust PRN 3) Advance to cardiac diet as medically feasible 4) Monitor NPO status, lab values, wt trend, I/O Expected Outcomes/Goals: To meet >75% estimated needs within 7 days Lab values to improve Fu 2-3 days Plan discussed with: Patient, Other BRODIE GARVIN BUSINESS CONTROL MANAGER Oct 25, 2024 11:17
[2024-10-25] MEDS: POTASSIUM EFFERVESENT TAB 25 MEQ GT ONE (21:23)
[2024-10-25] MEDS: NOREPINEPHRINE BITARTRATE 0 ML IV ONE (22:19)
[2024-10-25] MEDS: PHENYLEPHRINE HCL 10 MG/ML VL ONE (22:21)
--- NOTE | 2024-10-25 23:53 | DVHPN2 ---
Progress Note - Dictate Date Seen: Oct 25, 2024 Has the PT tested + for MRSA If YES, has PT been informed?: No Medical Necessity Reason Pt with a Central, PICC or Fol: Yes The following are medically ne: Culter Catheter Reason for cutler catheter: Strict I&O Subjective Patient is seen and examined at bedside Intubated on mechanical ventilator. Overnight events reviewed. vital signs Vital Sign Date Time Temp Pulse Resp B/P (MAP) Pulse Ox O2 Delivery O2 Flow Rate FiO2 10/25/24 22:13 88 22 93/47 (62) 100 30 10/25/24 20:00 Mechanical Ventilator+ 10/25/24 18:45 99.1 210.4 Total Intake and Output 10/24/24 10/24/24 10/25/24 15:00 23:00 07:00 Intake Total 200 ml 140 ml 356 ml Output Total 900 ml 850 ml Balance 200 ml -760 ml -494 ml medications Current Medications Medications Dose Ordered Sig/Liliam Route Start Time Stop Time Status Last Admin Dose Admin Midazolam HCl 50 ml @ 1 mls/hr Q24H IV 10/07/24 04:45 10/21/24 07:28 4 MLS/HR Ondansetron HCl 4 mg Q4HP PRN IV 10/07/24 10:00 Nitroglycerin 0.4 mg Q5MINP PRN SL 10/07/24 10:00 Pantoprazole Sodium 40 mg DAILY IV 10/07/24 10:00 10/25/24 09:49 40 MG Mexiletine HCl 150 mg TID GT 10/08/24 22:00 10/25/24 21:25 150 MG Acetaminophen 500 mg Q6HP PRN PO 10/08/24 22:30 10/19/24 03:18 500 MG Enteral Nutritional Formula 1,000 ml 55ML/HR GT 10/09/24 18:45 10/22/24 18:55 1,000 ML Phenylephrine HCl 80 mg/Sodium Chloride 250 ml @ 7.5 mls/hr Q24H IV 10/10/24 09:30 10/25/24 23:02 7.5 MLS/HR Furosemide 20 mg BIDD IV 10/12/24 18:00 10/25/24 17:30 20 MG Esmolol HCl 250 ml @ 0 mls/hr Q0M IV 10/14/24 10:45 Amino Acids 0 ml @ 0 mls/hr PER PHARMACY IV 10/15/24 18:45 Cancel Dextrose 50 ml UD IV 10/16/24 09:30 Cancel Polyethylene Glycol 17 gm DAILYPRN PRN GT 10/17/24 16:45 10/19/24 05:54 17 GM Doxycycline Monohydrate 100 mg Q12HR NG 10/18/24 10:00 10/25/24 21:24 100 MG Piperacillin Sod/ Tazobactam Sod 100 ml @ 25 mls/hr Q8HR IV 10/19/24 14:00 10/25/24 21:37 25 MLS/HR Hydrocortisone Sodium Succinate 50 mg Q6HR IV 10/19/24 18:00 10/25/24 17:30 50 MG Vancomycin HCl 0 ml @ 0 mls/hr UD IV 10/19/24 14:00 Cancel Vasopressin 20 units/Sodium Chloride 100 ml @ 9 mls/hr Q11H7M IV 10/19/24 15:45 Amino Acid Protein 30 ml DAILY GT 10/22/24 10:00 10/25/24 09:50 30 ML Fluconazole 100 ml @ 100 mls/hr DAILY IV 10/22/24 14:00 10/25/24 09:49 100 MLS/HR Apixaban 2.5 mg BID PO 10/25/24 10:00 Hold Metoclopramide HCl 5 mg BID IV 10/25/24 10:00 10/25/24 21:32 5 MG Potassium Chloride 100 ml @ 50 mls/hr Q2H IV 10/25/24 20:15 10/26/24 02:14 10/25/24 21:22 50 MLS/HR objective Gen.: Patient lying in bed in medical ICU. Intubated on mechanical ventilator. Head: Normocephalic, atraumatic. Eyes: PERRLA. Ears: Normal external anatomy. Throat: Endotracheal tube and orogastric tube in place. Neck: Supple, trachea midline. Chest: Transmitted breath sounds bilaterally. Decreased air entry bilaterally. No wheezing. Bibasilar crackles. Cardiovascular: Positive S1, positive S2. Regular rate and rhythm. Abdomen: Positive bowel sounds in all 4 quadrants. Soft, nontender, nondistended. : Cutler in place. Normal external genitalia. Rectal: Deferred. Skin: Warm, dry. Intact. Extremities: 2+ radial pulses bilaterally. No lower extremity edema. Neuro: Off sedation laboratory and microbiology Laboratory Tests 10/25/24 19:09 10/25/24 02:38 Test 10/25/24 02:38 Range/Units Serum Glucose 128 H 74-106 mg/dL Assessment/Plan Impression: Acute hypoxic respiratory failure On mechanical ventilator s/p cardiac arrest Ventricular tachycardia CPR <5 min Elevated troponin Atelectasis Events: Pt seen and examined in ICU Remains on mechanical ventilation AC mode with RR 18, VT 450, PEEP 5, FiO2 30% Off sedation, awaiting for mentation to improve Continue daily CPAP trials. Neurology recs appreciated. Off pressors, hemodynamically stable Continue antibiotics Continue antifungal Monitor blood pressure Follow up Cardiology recommendations Continue diuresis with Lasix as tolerated Monitor renal function Monitor electrolytes. Supplement as necessary. Potassium supplementation Clinimix for nutritional support Discuss goals of care with family- LTAC evaluation vs. trach/PEG vs. compassionate extubation. Labs and imaging reviewed. Plan: s/p intubation on mechanical ventilator. Titrate FIO2 to keep O2 saturation above 90%. VAP bundle. Daily ABG and CXR while intubated Off sedation Pressors as necessary for hemodynamic support. Titrate to keep MAP greater than 65 mmHg. Patient is s/p pacemaker Cardiology recs appreciated. Continue antibiotics. F/u cultures. Continue antifungal IV steroids Accu-Cheks, ISS PRN. Monitor labs Monitor renal function Monitor electrolytes. Supplement as necessary. Monitor ins and outs. F/u Cardiology recs. DVT prophylaxis. SBT/CORINE Discuss goals of care with family- LTAC evaluation vs. trach/PEG vs. compassionate extubation. Prognosis: Poor given patient's multiple co-morbidities. Condition: Critical Rest of plan per hospitalist and other consultants. A total of 35 minutes of critical care time was spent reviewing the patient record, examining the patient, making a diagnostic and therapeutic plan, discussing this plan with the medical personnel, following up on diagnostic studies and following the patient for clinical stability excluding any and all procedures. At least 50% of this time was spent in direct, [id number] contact. Thank you, YURI Gomez, for allowing me to participate in this patient's care. Further recommendations will depend on the patient's clinical course. Please do not hesitate to contact me if you have any questions or concerns. This medical document was created using an electronic medical record system with Dragon computerized dictation system. Although these documentations are being carefully reviewed, there may still be some phonetic and typographical changes. The errors are purely typographical, due to imperfection on the software program, and do not reflect any compromise in the patient's medical care. Dietary Evaluation Review Comments: 1) TF Jevity 1.2Cal @ 55 ml/hr. x 24hr along with Pro-stat 1 pk daily. Start @ 20ml/hr, increase 10ml/hr Q4H until goal is reached. TF @ goal volume provides 1684 kcal (100% energy needs), 88 gm protein (100% protein needs), 1065 ml free water. 2) Water flush 100ml Q4H if allowed, adjust PRN 3) Advance to cardiac diet as medically feasible 4) Monitor NPO status, lab values, wt trend, I/O Expected Outcomes/Goals: To meet >75% estimated needs within 7 days Lab values to improve Fu 2-3 days Plan discussed with: Other (CEE Cuenca) Critical Care Time(min): 35 KENNY FROTS MD Oct 25, 2024 23:53
[2024-10-26] VITALS (108 sets, daily range): BP systolic 92–123; BP diastolic 41–76; PULSE 68–103; RESP 13–32; TEMP 86.9–99.9; O2SAT 98–100
--- NOTE | 2024-10-26 05:36 | DVH ---
CHEST RADIOGRAPH Indication: INTUBATED Technique: 1 view COMPARISON: XY CHEST PORTABLE on DOS: 10/25/24, XY CHEST PORTABLE on DOS: 10/24/24, XY CHEST PORTABLE o n DOS: 10/23/24, XY CHEST PORTABLE on DOS: 10/22/24, XY CHEST XRAY 1 VIEW on DOS: 10/20/24, XY CHEST POR TABLE on DOS: 10/25/24 FINDINGS: Lines and Tubes: Unchanged endotracheal tube, enteric tube, right IJ catheter and implanted cardiac d evice. Lungs/Pleura: Unchanged. Cardiomediastinum: Unchanged. Other: Unchanged osseous structures. IMPRESSION: 1. No significant change from the previous study. Stable support devices. Similar findings of heart failure including trace left pleural effusion.
[2024-10-26 06:35] LABS: Base Excess 3.5 mmol/L (-2.0-3.0)
[2024-10-26 07:01] LABS: Alkaline Phosphatase 89 U/L (46-116); Anion Gap 10 (5-15); BUN/Creatinine Ratio 36.8 (10.0-20.0); Calcium 8.8 mg/dL (8.7-10.4); Carbon Dioxide 26 mmol/L (20-31); Potassium 4.6 mmol/L (3.5-5.1); Total Protein 6.2 g/dL (5.7-8.2)
[2024-10-26 07:02] LABS: Albumin 3.5 g/dL (3.2-4.8)
[2024-10-26 07:03] LABS: Bilirubin, Total 0.8 mg/dL (0.2-1.0)
[2024-10-26 07:10] LABS: Alanine Aminotransferase 42 U/L (7-40); Blood Urea Nitrogen 32 mg/dL (9-23); Chloride 109 mmol/L (98-107); Glucose 129 mg/dL (74-106); Sodium 145 mmol/L (136-145)
[2024-10-26 07:25] LABS: Hematocrit 23.8 % (36.0-46.0); Mean Corpuscular Hemoglobin 30.6 pg (28.0-32.0); Mean Corpuscular Volume 94.3 fL (80.0-100.0)
[2024-10-26 07:29] LABS: Hemoglobin 7.7 g/dL (12.2-16.2); Nucleated Red Blood Cells % 3.0 %
--- NOTE | 2024-10-26 07:44 | DVHPN2 ---
Progress Note - Dictate Date Seen: Oct 26, 2024 Has the PT tested + for MRSA If YES, has PT been informed?: No Medical Necessity Reason Pt with a Central, PICC or Fol: Yes The following are medically ne: Cutler Catheter Reason for cutler catheter: Strict I&O vital signs Vital Sign Date Time Temp Pulse Resp B/P (MAP) Pulse Ox O2 Delivery O2 Flow Rate FiO2 10/26/24 07:01 83 28 108/47 (67) 100 30 10/26/24 07:00 99.0 210.2 10/26/24 06:00 Mechanical Ventilator+ 10/25/24 19:05 30.0 Total Intake and Output 10/25/24 10/25/24 10/26/24 15:00 23:00 07:00 Intake Total 350 ml 275 ml 1475.626 ml Output Total 650 ml 825 ml Balance 350 ml -375 ml 650.626 ml medications Current Medications Medications Dose Ordered Sig/Liliam Route Start Time Stop Time Status Last Admin Dose Admin Midazolam HCl 50 ml @ 1 mls/hr Q24H IV 10/07/24 04:45 10/21/24 07:28 4 MLS/HR Ondansetron HCl 4 mg Q4HP PRN IV 10/07/24 10:00 Nitroglycerin 0.4 mg Q5MINP PRN SL 10/07/24 10:00 Pantoprazole Sodium 40 mg DAILY IV 10/07/24 10:00 10/25/24 09:49 40 MG Mexiletine HCl 150 mg TID GT 10/08/24 22:00 10/26/24 06:12 150 MG Acetaminophen 500 mg Q6HP PRN PO 10/08/24 22:30 10/19/24 03:18 500 MG Enteral Nutritional Formula 1,000 ml 55ML/HR GT 10/09/24 18:45 10/22/24 18:55 1,000 ML Phenylephrine HCl 80 mg/Sodium Chloride 250 ml @ 7.5 mls/hr Q24H IV 10/10/24 09:30 10/25/24 23:02 7.5 MLS/HR Furosemide 20 mg BIDD IV 10/12/24 18:00 10/26/24 06:13 20 MG Esmolol HCl 250 ml @ 0 mls/hr Q0M IV 10/14/24 10:45 Amino Acids 0 ml @ 0 mls/hr PER PHARMACY IV 10/15/24 18:45 Cancel Dextrose 50 ml UD IV 10/16/24 09:30 Cancel Polyethylene Glycol 17 gm DAILYPRN PRN GT 10/17/24 16:45 10/19/24 05:54 17 GM Doxycycline Monohydrate 100 mg Q12HR NG 10/18/24 10:00 10/25/24 21:24 100 MG Piperacillin Sod/ Tazobactam Sod 100 ml @ 25 mls/hr Q8HR IV 10/19/24 14:00 10/26/24 06:15 25 MLS/HR Hydrocortisone Sodium Succinate 50 mg Q6HR IV 10/19/24 18:00 10/26/24 06:13 50 MG Vancomycin HCl 0 ml @ 0 mls/hr UD IV 10/19/24 14:00 Cancel Vasopressin 20 units/Sodium Chloride 100 ml @ 9 mls/hr Q11H7M IV 10/19/24 15:45 Amino Acid Protein 30 ml DAILY GT 10/22/24 10:00 10/25/24 09:50 30 ML Fluconazole 100 ml @ 100 mls/hr DAILY IV 10/22/24 14:00 10/25/24 09:49 100 MLS/HR Apixaban 2.5 mg BID PO 10/25/24 10:00 Hold Metoclopramide HCl 5 mg BID IV 10/25/24 10:00 10/25/24 21:32 5 MG laboratory and microbiology Laboratory Tests 10/26/24 06:00 Test 10/26/24 06:00 Range/Units Serum Glucose 129 H 74-106 mg/dL Assessment/Plan Still intubated and in ICU. Off pressure support. Off sedation, still not regaining higher brain function. Patient is a 54-year-old female who was brought to the hospital for witnessed syncope. She is intubated and is being managed in ICU. Information was obtained by reviewing the chart and communicating with patient's son (over the phone). Family recognized witnessed syncope and started CPR and called EMS. Reportedly, EMS found the patient in ventricular fibrillation and shocked the patient and brought the patient to the hospital. Patient was intubated in emergency room and transferred to ICU. Patient was on amiodarone drip. Later the patient had ventricular tachycardia (Systane). High sensitive troponin had been minimally/flatly elevated. Presentation was not in favor of acute coronary syndrome. Cardiology is involved for cardiac aspects of care. Intubated. Noncommunicative. No JVD. Mucosa pale. No carotid bruit. Scattered rhonchi in the lungs is heard. Cardiac: Regular, no thrill. Systolic murmur 2/6 in apex is heard. Abdomen is soft. No edema in extremities. Past medical history as per son: Congenital heart disease, status post bypass WBC: 14.5 - 11.9 - 18.8 - 20.0 - 21.2 - 14.3 - 10.3 - 8.9 - 9.2 - 11.1 - 12.1 - 10.8 - 12.0 - 9.9 - 15.4 - 14.8 - 12.1 - 10.5 - 5.8 - 5.3 - 4.2 - 5.8 Hemoglobin: 10.1 - 9.6 - 9.2 - 8.8 - 8.7 - 8.0 - 8.3 - 8.5 - 7.8 - 10.2 - 10.7 - 9.9 - 9.7 - 9.3 - 9.3 - 8.6 - 8.1 - 7.4 - 7.5 - 7.4 - 7.5 - 7.2 - 7.7 Creatinine: 0.95 - 0.93 - 0.87 - 0.83 - 0.83 - 0.76 - 0.68 - 0.72 - 0.79 - 0.76 - 0.80 - 0.84 - 0.61 - 0.65 - 0.74 - 0.64 - 0.73 - 0.82 - 0.88 - 1.03 - 0.99 - 0.85 - 0.87 Potassium: 3.4 - 4.0 - 4.6 - 3.5 - 3.3 - 4.1 - 3.7 - 3.2 - 3.7 - 4.0 - 3.2 - 3.4 - 3.9 - 4.2 - 3.3 - 3.8 - 3.6 - 3.4 - 4.2 - 3.8 - 4.5 - 4.1 - 3.5 - 4.2 - 3.3 - 2.6 - 3.5 - 3.8 - 2.4 - 2.9 - 4.6 Magnesium: 2.0 - 1.6 - 2.0 - 3.0 - 1.5 - 1.9 - 2.1 - 1.8 - 2.0 - 1.9 - 1.9 - 2.6 - 2.0 - 1.8 - 1.6 - 2.0 - 2.2 - 1.9 - 2.3 - 2.2 - 2.2 - 2.1 - 2.1 Troponin (high sensitive): 141 - 138 - 117 BNP: 457.16 AST/ALT: 32/11 - 19/13 - 538/168 - 293/152 - 131/130 - 78/94 - 68/74 - 48/57 - 27/38 - 15/23 - 20/18 - 23/17 - 29/16 - 27/13 - 34/17 - 73/49 - 41/43 - 30/47 - 30/42 - 29/42 Digoxin level: 2.83 - 1.25 - 0.98 UDS: non-revealing Chest x-ray revealed: Lines and Tubes: Endotracheal tube tip projects approximately 1.4 cm above the level of the tyler. Enteric catheter courses below the lateral of the diaphragm and terminates beyond the inferior margin of the image. Right internal jugular central venous catheter terminates within the distal superior vena cava. Lungs: Moderate diffuse increased prominence of the pulmonary vasculature without evidence of focal consolidation. Pleura: No effusion. No pneumothorax. Cardiomediastinal contours: Cardiomegaly. Bones: Unremarkable IMPRESSION: 1. Cardiomegaly and diffuse increased prominence of the pulmonary vasculature. 2. Lines and tubes as above. Repeat chest x-ray revealed: IMPRESSION: 1. Endotracheal tube tip 1.6 cm above the tyler; consider 2 cm retraction 2. Mild pulmonary vascular congestion. Moderate cardiomegaly. Repeat chest xry revealed: IMPRESSION: Endotracheal tube tip 1.6 cm above the tyler; consider 2 cm retraction Mild pulmonary vascular congestion. Moderate cardiomegaly. Repeat chest xry revealed: IMPRESSION: 1. Stable cardiomegaly, small left pleural effusion and mild diffuse increased prominence of the pulmonary vasculature. 2. Repositioned endotracheal tube as above. Remaining lines and tubes unchanged. Repeat chest xry revealed: IMPRESSION: 1. Cardiomegaly, stable diffuse increased prominence of the pulmonary vasculature and small bilateral pleural effusions. 2. Slight interval advancement of endotracheal tube as above. Remaining lines and tubes unchanged. Repeat chest xry revealed: IMPRESSION: 1. Slight interval decrease in diffuse increased prominence of the pulmonary vasculature. 2. Stable cardiomegaly and small left pleural effusion. 3. Lines and tubes unchanged. Repeat chest xry revealed: IMPRESSION: 1. Cardiomegaly and small left pleural effusion. 2. Lines and tubes unchanged. Repeat chest xry revealed: IMPRESSION: Stable lines and tubes. Similar lung aeration. Repeat chest xry revealed: IMPRESSION: Cardiomegaly and small left pleural effusion. Lines and tubes unchanged. Repeat chest xry revealed: IMPRESSION: Placement of a cardiac pacer, no pneumothorax is seen. Stable lines and tubes. Repeat chest xry revealed: IMPRESSION: 1. Worsening mixed opacities in the right lower lung. No other significant change from the previous study. Stable support devices. Repeat chest xry revealed: Heart is prominent in size with postsurgical changes, median sternotomy wires, and a single lead left cardiac defibrillator. Support lines and tubes appear unchanged in satisfactory in position. No sizable effusion or pneumothorax. Mild pulmonary vascular congestion. No significant interval change. Repeat chest xry revealed: IMPRESSION: 1. No significant change from the previous study. Stable support devices. Similar findings of heart failure including left pleural effusion. Repeat chest xry revealed: IMPRESSION: 1. No significant change from the previous study. Stable support devices. Similar findings of heart failure including trace left pleural effusion. KUB revealed: IMPRESSION: Nonobstructive bowel gas pattern. Nasogastric tube tip in the stomach. Large stool burden. Left upper ext arterial duplex: IMPRESSION: No hemodynamically significant stenosis based on peak systolic velocity criteria. Left lower ext arterial duplex: IMPRESSION: There is no evidence for peripheral vascular insufficiency in the left lower extremity. No significant focal stenosis is identified. Liver Ultrasound revealed: Hepatic steatosis. Hepatomegaly. Cholelithiasis. CT of the head revealed: IMPRESSION: No acute intracranial abnormality. Repeat CT of head revealed: IMPRESSION: No acute intracranial abnormality. Echocardiogram reported: lvef 15-20% dilated LV severe global dysfunction mild RV dysfunction biatrial enlargement mild moderate MAC, moderate mitral regurg mild to moderate aortic regug (images of echo reviewed and questioned presence of mitral ring and also some component (moderate of Mitral stenosis) EKG revealed sinus rhythm Telemetry revealed occasions of atrial fibrillation. There was occasional sustained ventricular tachycardia. EMS tele monitor revealed ventricular fibrillation for which the patient was shocked. Has remained sinus rhythm. Later with A-fib with MVR LHC revealed: Patent RICHMOND to LAD; Patent SVG to obtuse marginal; LVEF of 20% with increased EDP; Proximal disease in LAD/LCX RICHIE was performed: Consistent with severely reduced LVEF. Consistent with previously implanted Mitral ring, Up to moderate Mitral stenosis/Mitral Regurgitation and also Moderate Aortic insufficiency. Patient is a 54-year-old female who presented with witnessed syncope. She was found to have ventricular fibrillation for which was shocked. Later had repeated episode of sustained ventricular tachycardia. Patient has been kept in ICU. Does have baseline history of coronary artery disease for which has had bypass surgery. Left heart catheterization was performed which revealed patent RICHMOND and patent SVG. ACS is not considered at this point. It is of note that the patient's echocardiogram reveals significantly use systolic function. Valvular heart disease is considered. Findings are in favor of previously implanted mitral ring. By reviewing the echo images, component of up to moderate mitral stenosis could not be ruled out. LHC was performed that ruled out any active specific ischemia as an etiology for presentation. Is off Amiodarone for abnormal LFT. Being followed by Nephrology / Pulmonary / Neurology / GI ID. Tele has remained sinus rhythm. Had episode of a-fib with RVR. Was loaded with Digoxin. Dig level was performed at wrong timing (only 5 hours after the last Dig given). Dig toxicity is not considered. Patient is back to normal sinus rhythm. Has good kidney function. Repeat Dig level is acceptable level. s/p ICD implantation by EP Syncope V-fib s/p shock Sustained V-tach Paroxysmal A-fib VHD, s/p Mitral ring Systolic heart failure Abnormal LFT, resolved s/p ICD (Biotronik) implantation by EP (Dr Armstrong) Cardiac suggestion for management: Manage in ICU Follow up electrolytes and kidney function test and correct abnormalities Full anticoagulation (a-fib with high CHADS-Vasc score). s/p ICD implantation. As per oral communication by Dr Armstrong (EP), we can change the A/C to Eliquis Off Amio drip (worsened LFT) (personally discussed with EP: Dr Armstrong who advised to stop / not to restart Amiodarone) On Mexiletine If need for pressure support: use Phenyl Ephrine / vasopressin, keep MAP above 65 (for now off pressure support and tolerating) May consider Esmolol for PVC/Vtach s/p ICD (Biotronik) implantation by EP Off warfarin: Eliquis: 2.5 mg BID (only after INR is below 2.0) Pulmonary Follow up Provide previous medical records from reaching out to previous hospitals in [facility]... Further evaluation and management depends on the above and clinical course. A total of 75 minutes was spent reviewing the patient record, examining the patient, making a diagnostic and therapeutic plan, discussing this plan with medical personnel, following up on diagnostic studies and following the patient for clinical stability excluding any and all procedures. At least 50% of this time was spent in direct, [id number] contact. Thank you for allowing me to participate in this patient's care. Further recommendations will depend on patient's clinical course. Please do not hesitate to contact me if you have any questions or concerns. This medical document was created using electronic medical record system with [employer] computerized dictation system. Although this document has been carefully reviewed, there may still be some phonetic and typographical errors. These areas are purely typographical due to the imperfection of the software programs, and do not reflect any compromise in the patient's medical care. Dietary Evaluation Review Comments: 1) TF Jevity 1.2Cal @ 55 ml/hr. x 24hr along with Pro-stat 1 pk daily. Start @ 20ml/hr, increase 10ml/hr Q4H until goal is reached. TF @ goal volume provides 1684 kcal (100% energy needs), 88 gm protein (100% protein needs), 1065 ml free water. 2) Water flush 100ml Q4H if allowed, adjust PRN 3) Advance to cardiac diet as medically feasible 4) Monitor NPO status, lab values, wt trend, I/O Expected Outcomes/Goals: To meet >75% estimated needs within 7 days Lab values to improve Fu 2-3 days Plan discussed with: Other (nurse) CORDELL VERA MD Oct 26, 2024 07:44
--- NOTE | 2024-10-26 10:00 | DVHPN2 ---
Progress Note - Dictate Date Seen: Oct 26, 2024 Has the PT tested + for MRSA If YES, has PT been informed?: No Medical Necessity Reason Pt with a Central, PICC or Fol: Yes The following are medically ne: Cutler Catheter Reason for cutler catheter: Strict I&O Subjective Ms. Smith is a 54 years old female who was brought to the [facility] on 10/07/2024 with a chief complaint of cardiopulmonary arrest/status post CPR. I have seen and examined the patient, I have discussed with her nurse, she is intubated, awake, on vent, she follows verbal commands, but she does not move the arms and legs She received pacemaker insertion on 10/17/2024 Blood culture, 10/09/2024: No growth Blood culture, 10/19/2024: UDS, 10/07/2024: Negative Urinalysis, 10/07/2024: Leukocyte esterase: Negative WBC/HB/PLT/MCV, 10/09/2024: 20/8.8/219/94.6, 10/10/2024: 21.2/8.7/232/92.2 PT/INR/PTT, 10/08/2024: 12.4/1.19/72.7, 10/09/2024: 13.1/1.26/68.9, 10/10/2024: 14.4/2/1.38/35.3 CMP, 10/08/2024: Unremarkable Troponin one high sensitivity, 10/07/2024: 141, 138, 117 TBI/AST/ALT/AP, 10/10/2024: 0.5/538/168/144, 10/11/2024: 0.6/293/199/152, 10/14/2024: 0.8/68/74/124 TG/HDL/LDL/HDL, 10/07/24: 71/66/31/21 EKG 10/10/2024: Atrial fibrillation EKG, 10/15/2024: Atrial fibrillation Echocardiogram, 10/07/2024: lvef 15-20% dilated LV severe global dysfunction mild RV dysfunction biatrial enlargement mild moderate MAC, moderate mitral regurg mild to moderate aortic regug RICHIE, 10/08/2024: 1. Left ventricle: Dilated LV was seen. LVEF was 25%. There was diffuse hypokinesis of left ventricle. 2. Right ventricle: RV was mildly dilated. 3. Left atrium: LA enlarged 4. Right atrium: RA was enlarged. 5. Mitral valve: Mitral was thickened with reduced opening. Moderate Mitral regurgitation was seen. Planinomentry of valve (TTE images also obtained) revealed MVA of 2.1 cm. Mean pressure gradient (obtained from limited TTE images) was 5. Images are consistent with previously implanted Ring in Mitral position. Consistent with up to Moderate Mitral stenosis. . There was no vegetation 6. Left atrial appendage: No evidence of thrombus. 7. Aortic valve: Trileaflet valve. No stenosis. Up to moderate Aortic Insufficiency was seen. There was no vegetation 8. Pulmonic valve: Trivial pulmonic insufficiency. No significant stenosis. 9. Tricuspid valve: Mild tricuspid regurgitation. There was no vegetation 10. Interatrial septum: Negative color flow for right to left shunt was observed. Bubble study was performed: negative for shunt 11. Pericardium: No significant effusion. 12. Thoracic aorta: No significant plaquing. Chest x-ray, 10/27/2024: 1. Cardiomegaly, stable diffuse increased prominence of the pulmonary vasculature and small bilateral pleural effusions. 2. Slight interval advancement of endotracheal tube as above. Remaining lines and tubes unchanged. CT head, 10/07/2024: No acute intracranial abnormality General: the patient is well developed and nourished. No acute distress. Intubated CT head, 10/07/2024: No acute intracranial abnormality. CT head, 10/11/2024: No acute intracranial abnormality vital signs Vital Sign Date Time Temp Pulse Resp B/P (MAP) Pulse Ox O2 Delivery O2 Flow Rate FiO2 10/26/24 09:10 77 24 100/60 (73) 100 30 10/26/24 07:00 99.0 210.2 10/26/24 06:00 Mechanical Ventilator+ 10/25/24 19:05 30.0 Total Intake and Output 10/25/24 10/25/24 10/26/24 15:00 23:00 07:00 Intake Total 350 ml 275 ml 1475.626 ml Output Total 650 ml 825 ml Balance 350 ml -375 ml 650.626 ml medications Current Medications Medications Dose Ordered Sig/Liliam Route Start Time Stop Time Status Last Admin Dose Admin Midazolam HCl 50 ml @ 1 mls/hr Q24H IV 10/07/24 04:45 10/21/24 07:28 4 MLS/HR Ondansetron HCl 4 mg Q4HP PRN IV 10/07/24 10:00 Nitroglycerin 0.4 mg Q5MINP PRN SL 10/07/24 10:00 Pantoprazole Sodium 40 mg DAILY IV 10/07/24 10:00 10/25/24 09:49 40 MG Mexiletine HCl 150 mg TID GT 10/08/24 22:00 10/26/24 06:12 150 MG Acetaminophen 500 mg Q6HP PRN PO 10/08/24 22:30 10/19/24 03:18 500 MG Enteral Nutritional Formula 1,000 ml 55ML/HR GT 10/09/24 18:45 10/22/24 18:55 1,000 ML Phenylephrine HCl 80 mg/Sodium Chloride 250 ml @ 7.5 mls/hr Q24H IV 10/10/24 09:30 10/25/24 23:02 7.5 MLS/HR Furosemide 20 mg BIDD IV 10/12/24 18:00 10/26/24 06:13 20 MG Esmolol HCl 250 ml @ 0 mls/hr Q0M IV 10/14/24 10:45 Amino Acids 0 ml @ 0 mls/hr PER PHARMACY IV 10/15/24 18:45 Cancel Dextrose 50 ml UD IV 10/16/24 09:30 Cancel Polyethylene Glycol 17 gm DAILYPRN PRN GT 10/17/24 16:45 10/19/24 05:54 17 GM Doxycycline Monohydrate 100 mg Q12HR NG 10/18/24 10:00 10/25/24 21:24 100 MG Piperacillin Sod/ Tazobactam Sod 100 ml @ 25 mls/hr Q8HR IV 10/19/24 14:00 10/26/24 06:15 25 MLS/HR Hydrocortisone Sodium Succinate 50 mg Q6HR IV 10/19/24 18:00 10/26/24 06:13 50 MG Vancomycin HCl 0 ml @ 0 mls/hr UD IV 10/19/24 14:00 Cancel Vasopressin 20 units/Sodium Chloride 100 ml @ 9 mls/hr Q11H7M IV 10/19/24 15:45 Amino Acid Protein 30 ml DAILY GT 10/22/24 10:00 10/25/24 09:50 30 ML Fluconazole 100 ml @ 100 mls/hr DAILY IV 10/22/24 14:00 10/25/24 09:49 100 MLS/HR Apixaban 2.5 mg BID PO 10/25/24 10:00 Hold Metoclopramide HCl 5 mg BID IV 10/25/24 10:00 10/25/24 21:32 5 MG objective The patient is well-nourished and well-developed with no distress. The patient is intubated MENTAL STATUS: Subjective CRANIAL NERVES: Pupils are equal, round and reactive.There are corneal reflexes and doll's eyes phenomenon. No signs of facial weakness. There are gagging or coughing reflexes SENSATION: Responses to pain stimuli. MOTOR: Normal tone in the upper and lower extremity. Normal muscle bulk. No fasciculations. No spontaneous movement. REFLEXES: Deep tendon reflexes are symmetrical. No pathological reflexes. CEREBELLAR/COORDINATION: Deferred GAIT/STATION: deferred. laboratory and microbiology Laboratory Tests 10/26/24 06:00 Test 10/26/24 06:00 Range/Units Serum Glucose 129 H 74-106 mg/dL Problem List Cardiopulmonary arrest Status post CPR Metabolic encephalopathy Hypoxic encephalopathy Congestive heart failure Leukocytosis/sepsis/septic shock Respiratory failure Elevated liver function tests AFib S/P pacemaker insertion on 10/17/2024 Assessment/Plan Monitoring Supportive treatment ICU care Stabilize vitals Respiratory support/vent management Hold off Lipitor (elevated liver function tests), LDL (31) (home medications included Lipitor 40 mg daily) DVT prophylaxis GI prophylaxis Cardiology on case Pulmonology on case Nephrology on case Consult GI Re: Elevated liver function tests Need more history Extubation when she is ready This medical document was created using an electronic medical record system with [employer] dictation system. Although this document has been carefully reviewed, there may still be some phonetic and typographical errors. These areas are purely typographical due to imperfections of the software programs, and do not reflect any compromise in the patient's medical care. Prognosis Guarded Dietary Evaluation Review Comments: 1) TF Jevity 1.2Cal @ 55 ml/hr. x 24hr along with Pro-stat 1 pk daily. Start @ 20ml/hr, increase 10ml/hr Q4H until goal is reached. TF @ goal volume provides 1684 kcal (100% energy needs), 88 gm protein (100% protein needs), 1065 ml free water. 2) Water flush 100ml Q4H if allowed, adjust PRN 3) Advance to cardiac diet as medically feasible 4) Monitor NPO status, lab values, wt trend, I/O Expected Outcomes/Goals: To meet >75% estimated needs within 7 days Lab values to improve Fu 2-3 days Plan discussed with: Other CAROLINE ROBB MD Oct 26, 2024 10:00
[2024-10-26 10:46] LABS: INR 2.85 (0.9-1.15); Partial Thromboplastin Time 27.4 SEC (24.5-34.5); Prothrombin Time 27.2 sec (9.3-11.8)
--- NOTE | 2024-10-26 11:15 | DVHPN2 ---
Progress Note Date Seen: Oct 26, 2024 Resident Creating Document: ETHAN SWAN RESIDENT Has the PT tested + for MRSA If YES, has PT been informed?: No Medical Necessity Reason Pt with a Central, PICC or Fol: Yes The following are medically ne: Cutler Catheter Reason for cutler catheter: Strict I&O Subjective Review of Systems 54-year-old female with past medical history of paroxysmal atrial fibrillation, congenital heart disease who initially presented to the hospital s/p cardiac arrest, patient collapsed while seated on the dining table witnessed by . CPR was performed by EMS and patient was noted to have V-tach/VFib and received 200 joules shock. The next day during hospitalization, patient went into pulseless V-tach in subsequently ROS was achieved. Patient seen and examined at bedside, remains intubated, sedated and mechanically ventilated Continues on Jevity Three watery bowel movements yesterday, discontinued Reglan Objective vital signs Vital Sign Date Time Temp Pulse Resp B/P (MAP) Pulse Ox O2 Delivery O2 Flow Rate FiO2 10/26/24 11:10 74 14 110/65 (80) 99 30 10/26/24 07:00 99.0 210.2 10/26/24 06:00 Mechanical Ventilator+ 10/25/24 19:05 30.0 Total Intake and Output 10/25/24 10/25/24 10/26/24 15:00 23:00 07:00 Intake Total 350 ml 275 ml 1475.626 ml Output Total 650 ml 825 ml Balance 350 ml -375 ml 650.626 ml medications Current Medications Medications Dose Ordered Sig/Liliam Route Start Time Stop Time Status Last Admin Dose Admin Midazolam HCl 50 ml @ 1 mls/hr Q24H IV 10/07/24 04:45 10/21/24 07:28 4 MLS/HR Ondansetron HCl 4 mg Q4HP PRN IV 10/07/24 10:00 Nitroglycerin 0.4 mg Q5MINP PRN SL 10/07/24 10:00 Pantoprazole Sodium 40 mg DAILY IV 10/07/24 10:00 10/26/24 10:32 40 MG Mexiletine HCl 150 mg TID GT 10/08/24 22:00 10/26/24 06:12 150 MG Acetaminophen 500 mg Q6HP PRN PO 10/08/24 22:30 10/19/24 03:18 500 MG Enteral Nutritional Formula 1,000 ml 55ML/HR GT 10/09/24 18:45 10/22/24 18:55 1,000 ML Phenylephrine HCl 80 mg/Sodium Chloride 250 ml @ 7.5 mls/hr Q24H IV 10/10/24 09:30 10/25/24 23:02 7.5 MLS/HR Furosemide 20 mg BIDD IV 10/12/24 18:00 10/26/24 06:13 20 MG Esmolol HCl 250 ml @ 0 mls/hr Q0M IV 10/14/24 10:45 Amino Acids 0 ml @ 0 mls/hr PER PHARMACY IV 10/15/24 18:45 Cancel Dextrose 50 ml UD IV 10/16/24 09:30 Cancel Polyethylene Glycol 17 gm DAILYPRN PRN GT 10/17/24 16:45 10/19/24 05:54 17 GM Doxycycline Monohydrate 100 mg Q12HR NG 10/18/24 10:00 10/26/24 10:32 100 MG Piperacillin Sod/ Tazobactam Sod 100 ml @ 25 mls/hr Q8HR IV 10/19/24 14:00 10/26/24 06:15 25 MLS/HR Hydrocortisone Sodium Succinate 50 mg Q6HR IV 10/19/24 18:00 10/26/24 06:13 50 MG Vancomycin HCl 0 ml @ 0 mls/hr UD IV 10/19/24 14:00 Cancel Vasopressin 20 units/Sodium Chloride 100 ml @ 9 mls/hr Q11H7M IV 10/19/24 15:45 Amino Acid Protein 30 ml DAILY GT 10/22/24 10:00 10/25/24 09:50 30 ML Fluconazole 100 ml @ 100 mls/hr DAILY IV 10/22/24 14:00 10/26/24 10:32 100 MLS/HR Apixaban 2.5 mg BID PO 10/25/24 10:00 Hold Metoclopramide HCl 5 mg BID IV 10/25/24 10:00 10/25/24 21:32 5 MG Examination General Appearance: Sedated, intubated on mechanical ventilation Head Exam: Normal inspection. Constricted equal and reactive pupils Neck Exam: Normal inspection. Non-tender. Normal alignment Pulmonary/Respiratory: Chest non-tender. Trace crackles Peripheral Pulses 2+ Pedal (R). 2+ Pedal (L) Abdominal Exam: Normal bowel sounds. Soft. normal abdomen, no visible veins, No hepatospenomegaly. No masses Skin Exam: Normal inspection. Normal color. Warm. Dry laboratory and microbiology Laboratory Tests 10/26/24 06:00 Test 10/26/24 06:00 Range/Units Serum Glucose 129 H 74-106 mg/dL Microbiology Date/Time Source Procedure Growth Status 10/20/24 04:00 Sputum Gram Stain - Final Complete 10/20/24 04:00 Respiratory Culture - Final Enterobacter cloacae Yeast, not Lida albicans Complete 10/20/24 01:03 Urine - Cutler Port Urine Culture - Final Yeast, not Ilda albicans Complete 10/19/24 13:02 Blood Blood Culture - Final NO GROWTH AFTER 5 DAYS OF INCUBATION. Complete 10/07/24 16:50 Nose MRSA Screen - Final Complete Labs and/or images reviewed: Labs reviewed by me, Image(s) reviewed by me Problem List/Assessment/Plan Problem List/Assessment/Plan Ventricular fibrillation S/p cardiopulmonary arrest with shock Heart failure with reduced ejection fraction 15-20% Metabolic versus hypoxic encephalopathy Acute hepatocellular injury likely shock liver Cholelithiasis without acute inflammation Nonalcoholic fatty liver disease with steatohepatitis Community-acquired pneumonia growing Enterobacter Plan: Liver function tests have downtrended Hemoglobin 7.2, transfuse if HB 7 or less Continue tube feedings Serum ferritin, JAIDEN CPAP trial again tomorrow Discontinued metoclopramide to 5 mg IV b.i.d. Thank you so much for the opportunity to consult on your patient. GI team will follow the patient. In case of any questions or concerns please feel free to reach out. Plan discussed with Dr. Anglin Plan discussed with: Other (RN) Dietary Evaluation Review Comments: 1) TF Jevity 1.2Cal @ 55 ml/hr. x 24hr along with Pro-stat 1 pk daily. Start @ 20ml/hr, increase 10ml/hr Q4H until goal is reached. TF @ goal volume provides 1684 kcal (100% energy needs), 88 gm protein (100% protein needs), 1065 ml free water. 2) Water flush 100ml Q4H if allowed, adjust PRN 3) Advance to cardiac diet as medically feasible 4) Monitor NPO status, lab values, wt trend, I/O Expected Outcomes/Goals: To meet >75% estimated needs within 7 days Lab values to improve Fu 2-3 days ETHAN SWAN RESIDENT Oct 26, 2024 11:15
--- NOTE | 2024-10-26 14:14 | DVHPN2 ---
Progress Note Date Seen: Oct 26, 2024 Has the PT tested + for MRSA If YES, has PT been informed?: No Medical Necessity Reason Pt with a Central, PICC or Fol: Yes The following are medically ne: Cutler Catheter Reason for cutler catheter: Strict I&O Subjective Review of Systems: Not Done (unable to obtain ) Objective vital signs Vital Sign Date Time Temp Pulse Resp B/P (MAP) Pulse Ox O2 Delivery O2 Flow Rate FiO2 10/26/24 13:06 76 24 112/59 (76) 99 30 10/26/24 12:00 Mechanical Ventilator+ 10/26/24 11:00 96.6 205.9 10/25/24 19:05 30.0 Total Intake and Output 10/25/24 10/25/24 10/26/24 15:00 23:00 07:00 Intake Total 350 ml 275 ml 1475.626 ml Output Total 650 ml 825 ml Balance 350 ml -375 ml 650.626 ml medications Current Medications Medications Dose Ordered Sig/Liliam Route Start Time Stop Time Status Last Admin Dose Admin Midazolam HCl 50 ml @ 1 mls/hr Q24H IV 10/07/24 04:45 10/21/24 07:28 4 MLS/HR Ondansetron HCl 4 mg Q4HP PRN IV 10/07/24 10:00 Nitroglycerin 0.4 mg Q5MINP PRN SL 10/07/24 10:00 Pantoprazole Sodium 40 mg DAILY IV 10/07/24 10:00 10/26/24 10:32 40 MG Mexiletine HCl 150 mg TID GT 10/08/24 22:00 10/26/24 14:10 150 MG Acetaminophen 500 mg Q6HP PRN PO 10/08/24 22:30 10/19/24 03:18 500 MG Enteral Nutritional Formula 1,000 ml 55ML/HR GT 10/09/24 18:45 10/22/24 18:55 1,000 ML Phenylephrine HCl 80 mg/Sodium Chloride 250 ml @ 7.5 mls/hr Q24H IV 10/10/24 09:30 10/25/24 23:02 7.5 MLS/HR Furosemide 20 mg BIDD IV 10/12/24 18:00 10/26/24 06:13 20 MG Esmolol HCl 250 ml @ 0 mls/hr Q0M IV 10/14/24 10:45 Amino Acids 0 ml @ 0 mls/hr PER PHARMACY IV 10/15/24 18:45 Cancel Dextrose 50 ml UD IV 10/16/24 09:30 Cancel Polyethylene Glycol 17 gm DAILYPRN PRN GT 10/17/24 16:45 10/19/24 05:54 17 GM Doxycycline Monohydrate 100 mg Q12HR NG 10/18/24 10:00 10/26/24 10:32 100 MG Piperacillin Sod/ Tazobactam Sod 100 ml @ 25 mls/hr Q8HR IV 10/19/24 14:00 10/26/24 14:10 25 MLS/HR Hydrocortisone Sodium Succinate 50 mg Q6HR IV 10/19/24 18:00 10/26/24 14:10 50 MG Vancomycin HCl 0 ml @ 0 mls/hr UD IV 10/19/24 14:00 Cancel Vasopressin 20 units/Sodium Chloride 100 ml @ 9 mls/hr Q11H7M IV 10/19/24 15:45 Amino Acid Protein 30 ml DAILY GT 10/22/24 10:00 10/25/24 09:50 30 ML Fluconazole 100 ml @ 100 mls/hr DAILY IV 10/22/24 14:00 10/26/24 10:32 100 MLS/HR Apixaban 2.5 mg BID PO 10/25/24 10:00 Hold Metoclopramide HCl 5 mg BID IV 10/25/24 10:00 Hold 10/25/24 21:32 5 MG Examination: GENERAL:Normal, LUNGS:Abnormal (diminished on ventillator ), CVS:Normal, SKIN:Normal, NEURO:Normal laboratory and microbiology Laboratory Tests 10/26/24 06:00 Test 10/26/24 06:00 Range/Units Serum Glucose 129 H 74-106 mg/dL Microbiology Date/Time Source Procedure Growth Status 10/20/24 04:00 Sputum Gram Stain - Final Complete 10/20/24 04:00 Respiratory Culture - Final Enterobacter cloacae Yeast, not Ilda albicans Complete 10/20/24 01:03 Urine - Cutler Port Urine Culture - Final Yeast, not Ilda albicans Complete 10/19/24 13:02 Blood Blood Culture - Final NO GROWTH AFTER 5 DAYS OF INCUBATION. Complete 10/07/24 16:50 Nose MRSA Screen - Final Complete Labs and/or images reviewed: Image(s) reviewed by me Problem List/Assessment/Plan Problem List/Assessment/Plan The patient is status post AICD placement following cardiac arrest with ventricular fibrillation presenting with acute hypoxic respiratory failure and enterobacter pneumonia. They have a history of coronary artery disease and coronary artery bypass grafting, and are being managed for acute and chronic systolic heart failure. The patient is currently experiencing acute hypoxic respiratory failure and is undergoing CPAP trials while off sedation. They have been diagnosed with enterobacter pneumonia and paroxysmal atrial fibrillation, and are being monitored for transaminitis. The patient was previously on a heparin drip, which has been discontinued. Cardiology has recommended keeping the patient off amiodarone due to elevated liver enzymes. The patient is to be started on Eliquis 2.5 mg BID once their INR drops below 2, with the current INR still elevated at 2.85. Esmolol may be used for rate control and arrhythmia management. The patient is currently receiving IV fluids and magnesium supplementation. They have been taken off vasopressin. The patient is on tube feedings, receiving Jevity. Daily spontaneous breathing trials are being conducted to assess the patient's ability to come off the ventilator. There is a possibility of placement in a long-term care facility if the patient remains ventilator-dependent. Luishalina is a patient with history of coronary artery disease and CABG presenting with cardiac arrest with ventricular fibrillation, now status post AICD placement, complicated by acute hypoxic respiratory failure and enterobacter pneumonia. Cardiac Arrest with Ventricular Fibrillation Assessment: Patient experienced cardiac arrest with ventricular fibrillation, necessitating AICD placement by Dr. Armstrong. Patient has been taken off heparin drip. Cardiology recommends avoiding amiodarone due to elevated liver enzymes. INR is currently elevated at 2.85. Patient also diagnosed with Paroxysmal Atrial Fibrillation. Plan: - Continue Mexiletine - Initiate Eliquis 2.5 mg BID once INR is below 2 - Use Esmolol for rate control and arrhythmia management - Continue medical management for acute and chronic systolic heart failure - Continue IV Lasix 20 mg BID - Monitor EKG for AFib with Wolmonor EKG Acute Hypoxic Respiratory Failure Assessment: Patient is experiencing acute hypoxic respiratory failure, currently undergoing CPAP trials and off sedation. Plan: - Continue CPAP trials - Perform daily spontaneous breathing trials - Consider long-term care facility placement if unable to wean from ventilator Transaminitis Assessment: Patient has elevated liver enzymes, necessitating caution with medication management, particularly amiodarone. Plan: - Monitor liver function - Hold off on starting amiodarone Enterobacter Pneumonia Assessment: Patient diagnosed with Enterobacter pneumonia. Current status and resolution unclear. Plan: - Assess for resolution of pneumonia - Continue Zosyn Nutrition Assessment: Patient requires nutritional support while recovering. Plan: - Continue tube feedings with Jevity Paroxysmal a fib -DC amiodarone, monitor EKG -start eliquis when INR is below 2 Plan discussed with: Patient Dietary Evaluation Review Comments: 1) TF Jevity 1.2Cal @ 55 ml/hr. x 24hr along with Pro-stat 1 pk daily. Start @ 20ml/hr, increase 10ml/hr Q4H until goal is reached. TF @ goal volume provides 1684 kcal (100% energy needs), 88 gm protein (100% protein needs), 1065 ml free water. 2) Water flush 100ml Q4H if allowed, adjust PRN 3) Advance to cardiac diet as medically feasible 4) Monitor NPO status, lab values, wt trend, I/O Expected Outcomes/Goals: To meet >75% estimated needs within 7 days Lab values to improve Fu 2-3 days Date of Service: Oct 26, 2024 Billing Provider: CARLOS WHITAKER MD Common Visit Codes: [id number] INP/OBS CARE (MOD) BRAEDEN UNDERWOOD [employer] INS[employer]OR Oct 26, 2024 14:14
[2024-10-26] MEDS: LIDOCAINE 1% (LOCAL ANESTH.) PF 5ml SDV ID ONE (16:45)
--- NOTE | 2024-10-26 18:06 | DVH ---
Indication: s/p lower extremity picc line placement Technique: XY KUB ABDOMEN SINGLE VIEWXY Comparison: None FINDINGS/IMPRESSION: Right lower extremity PICC line with tip projecting over the expected region of the intrahepatic IVC. Nasogastric tube projecting towards the distal stomach. Nonspecific bowel gas pattern. Cardiomegaly and left basilar airspace opacities, incompletely charact erized. Atherosclerotic calcification disease.
[2024-10-26] MEDS: SODIUM CHLOR 0.9% PF (SALINE LOCK) 10ML VIAL/SYR IV SCH (22:00)
--- NOTE | 2024-10-26 23:08 | DVHPN2 ---
Progress Note - Dictate Date Seen: Oct 26, 2024 Has the PT tested + for MRSA If YES, has PT been informed?: No Medical Necessity Reason Pt with a Central, PICC or Fol: Yes The following are medically ne: Cutler Catheter Reason for cutler catheter: Strict I&O Subjective Patient is seen and examined at bedside Intubated on mechanical ventilator. Overnight events reviewed. vital signs Vital Sign Date Time Temp Pulse Resp B/P (MAP) Pulse Ox O2 Delivery O2 Flow Rate FiO2 10/26/24 22:16 81 19 107/61 (76) 99 30 10/26/24 20:15 98.4 209.1 10/26/24 18:00 Mechanical Ventilator+ 10/25/24 19:05 30.0 Total Intake and Output 10/25/24 10/25/24 10/26/24 15:00 23:00 07:00 Intake Total 350 ml 275 ml 1475.626 ml Output Total 650 ml 825 ml Balance 350 ml -375 ml 650.626 ml medications Current Medications Medications Dose Ordered Sig/Liliam Route Start Time Stop Time Status Last Admin Dose Admin Midazolam HCl 50 ml @ 1 mls/hr Q24H IV 10/07/24 04:45 10/21/24 07:28 4 MLS/HR Ondansetron HCl 4 mg Q4HP PRN IV 10/07/24 10:00 Nitroglycerin 0.4 mg Q5MINP PRN SL 10/07/24 10:00 Pantoprazole Sodium 40 mg DAILY IV 10/07/24 10:00 10/26/24 10:32 40 MG Mexiletine HCl 150 mg TID GT 10/08/24 22:00 10/26/24 14:10 150 MG Acetaminophen 500 mg Q6HP PRN PO 10/08/24 22:30 10/19/24 03:18 500 MG Enteral Nutritional Formula 1,000 ml 55ML/HR GT 10/09/24 18:45 10/22/24 18:55 1,000 ML Phenylephrine HCl 80 mg/Sodium Chloride 250 ml @ 7.5 mls/hr Q24H IV 10/10/24 09:30 10/25/24 23:02 7.5 MLS/HR Furosemide 20 mg BIDD IV 10/12/24 18:00 10/26/24 17:54 20 MG Esmolol HCl 250 ml @ 0 mls/hr Q0M IV 10/14/24 10:45 Amino Acids 0 ml @ 0 mls/hr PER PHARMACY IV 10/15/24 18:45 Cancel Dextrose 50 ml UD IV 10/16/24 09:30 Cancel Polyethylene Glycol 17 gm DAILYPRN PRN GT 10/17/24 16:45 10/19/24 05:54 17 GM Doxycycline Monohydrate 100 mg Q12HR NG 10/18/24 10:00 10/26/24 10:32 100 MG Piperacillin Sod/ Tazobactam Sod 100 ml @ 25 mls/hr Q8HR IV 10/19/24 14:00 10/26/24 14:10 25 MLS/HR Hydrocortisone Sodium Succinate 50 mg Q6HR IV 10/19/24 18:00 10/26/24 17:54 50 MG Vancomycin HCl 0 ml @ 0 mls/hr UD IV 10/19/24 14:00 Cancel Vasopressin 20 units/Sodium Chloride 100 ml @ 9 mls/hr Q11H7M IV 10/19/24 15:45 Amino Acid Protein 30 ml DAILY GT 10/22/24 10:00 10/25/24 09:50 30 ML Fluconazole 100 ml @ 100 mls/hr DAILY IV 10/22/24 14:00 10/26/24 10:32 100 MLS/HR Apixaban 2.5 mg BID PO 10/25/24 10:00 Hold Metoclopramide HCl 5 mg BID IV 10/25/24 10:00 Hold 10/25/24 21:32 5 MG Sodium Chloride 10 ml QSHIFT@10,22 IV 10/26/24 22:00 objective Gen.: Patient lying in bed in medical ICU. Intubated on mechanical ventilator. Head: Normocephalic, atraumatic. Eyes: PERRLA. Ears: Normal external anatomy. Throat: Endotracheal tube and orogastric tube in place. Neck: Supple, trachea midline. Chest: Transmitted breath sounds bilaterally. Decreased air entry bilaterally. No wheezing. Bibasilar crackles. Cardiovascular: Positive S1, positive S2. Regular rate and rhythm. Abdomen: Positive bowel sounds in all 4 quadrants. Soft, nontender, nondistended. : Cutler in place. Normal external genitalia. Rectal: Deferred. Skin: Warm, dry. Intact. Extremities: 2+ radial pulses bilaterally. No lower extremity edema. Neuro: Off sedation laboratory and microbiology Laboratory Tests 10/26/24 06:00 Test 10/26/24 06:00 Range/Units Serum Glucose 129 H 74-106 mg/dL Assessment/Plan Impression: Acute hypoxic respiratory failure On mechanical ventilator s/p cardiac arrest Ventricular tachycardia CPR <5 min Elevated troponin Atelectasis Events: Pt seen and examined in ICU Remains off sedation, awaiting for mentation to improve CPAP with PS 8, PEEP of 5, FiO2 30% Continue daily CPAP trials. Neurology recs appreciated. Patient required Stone-Synephrine overnight, currently off Hemodynamically stable S/p PICC line placement Continue antibiotics Continue antifungal Monitor blood pressure Follow up Cardiology recommendations Continue diuresis with Lasix as tolerated Monitor renal function Monitor electrolytes. Supplement as necessary. Protonix for GI ppx Clinimix for nutritional support Discuss goals of care with family - LTAC evaluation vs. trach/PEG vs. compassionate extubation. Labs and imaging reviewed. Plan: s/p intubation on mechanical ventilator. AC mode with RR 18, VT 450, PEEP 5, FiO2 30% Titrate FIO2 to keep O2 saturation above 90%. VAP bundle. Daily ABG and CXR while intubated Off sedation Pressors as necessary for hemodynamic support. Titrate to keep MAP greater than 65 mmHg. Patient is s/p pacemaker Cardiology recs appreciated. Continue antibiotics. F/u cultures. Continue antifungal IV steroids Accu-Cheks, ISS PRN. Monitor labs Monitor renal function Monitor electrolytes. Supplement as necessary. Monitor ins and outs. F/u Cardiology recs. GI/DVT prophylaxis. SBT/CORINE Discuss goals of care with family- LTAC evaluation vs. trach/PEG vs. compassionate extubation. Prognosis: Poor given patient's multiple co-morbidities. Condition: Critical Rest of plan per hospitalist and other consultants. A total of 35 minutes of critical care time was spent reviewing the patient record, examining the patient, making a diagnostic and therapeutic plan, discussing this plan with the medical personnel, following up on diagnostic studies and following the patient for clinical stability excluding any and all procedures. At least 50% of this time was spent in direct, [id number] contact. Thank you, YURI Gomez, for allowing me to participate in this patient's care. Further recommendations will depend on the patient's clinical course. Please do not hesitate to contact me if you have any questions or concerns. This medical document was created using an electronic medical record system with [employer] computerized dictation system. Although these documentations are being carefully reviewed, there may still be some phonetic and typographical changes. The errors are purely typographical, due to imperfection on the software program, and do not reflect any compromise in the patient's medical care. Dietary Evaluation Review Comments: 1) TF Jevity 1.2Cal @ 55 ml/hr. x 24hr along with Pro-stat 1 pk daily. Start @ 20ml/hr, increase 10ml/hr Q4H until goal is reached. TF @ goal volume provides 1684 kcal (100% energy needs), 88 gm protein (100% protein needs), 1065 ml free water. 2) Water flush 100ml Q4H if allowed, adjust PRN 3) Advance to cardiac diet as medically feasible 4) Monitor NPO status, lab values, wt trend, I/O Expected Outcomes/Goals: To meet >75% estimated needs within 7 days Lab values to improve Fu 2-3 days Plan discussed with: Other (CEE Oconnor) Critical Care Time(min): 35 KENNY FROST MD Oct 26, 2024 23:08
[2024-10-27] VITALS (119 sets, daily range): BP systolic 96–124; BP diastolic 44–71; PULSE 55–107; RESP 11–39; TEMP 91.4–99.3; O2SAT 99–100
[2024-10-27 03:35] LABS: Hematocrit 20.8 % (36.0-46.0); Mean Corpuscular Hemoglobin 31.4 pg (28.0-32.0); Mean Corpuscular Volume 93.3 fL (80.0-100.0); Nucleated Red Blood Cells % 1.7 %
[2024-10-27 03:38] LABS: Hemoglobin 7.0 g/dL (12.2-16.2)
[2024-10-27 03:43] LABS: INR 2.11 (0.9-1.15); Partial Thromboplastin Time 26.2 SEC (24.5-34.5); Prothrombin Time 20.8 sec (9.3-11.8)
[2024-10-27 03:47] LABS: Alanine Aminotransferase 27 U/L (7-40); Albumin 3.4 g/dL (3.2-4.8); Alkaline Phosphatase 78 U/L (46-116); Anion Gap 12 (5-15); BUN/Creatinine Ratio 30.4 (10.0-20.0); Calcium 8.7 mg/dL (8.7-10.4); Carbon Dioxide 27 mmol/L (20-31); Total Protein 5.8 g/dL (5.7-8.2)
[2024-10-27 03:48] LABS: Bilirubin, Total 0.8 mg/dL (0.2-1.0)
[2024-10-27 03:50] LABS: Blood Urea Nitrogen 24 mg/dL (9-23); Chloride 108 mmol/L (98-107); Glucose 106 mg/dL (74-106); Potassium 2.8 mmol/L (3.5-5.1); Sodium 147 mmol/L (136-145)
--- NOTE | 2024-10-27 06:40 | DVH ---
CHEST RADIOGRAPH Indication: INTUBATED Technique: Single frontal view of the chest was obtained COMPARISON: XY CHEST PORTABLE on DOS: 10/26/24, XY CHEST PORTABLE on DOS: 10/25/24, XY CHEST PORTABLE o n DOS: 10/24/24, XY CHEST PORTABLE on DOS: 10/23/24, XY CHEST PORTABLE on DOS: 10/22/24 FINDINGS: Lines and Tubes: Endotracheal tube, enteric catheter, right central venous catheter and left chest AI CD in satisfactory position Lungs: Congestion Pleura: No effusion. No pneumothorax. Cardiomediastinal contours: Cardiomegaly Bones: Unremarkable IMPRESSION: Lines and tubes in satisfactory position. No significant interval change.
[2024-10-27] MEDS: POTASSIUM CHL 20MEQ/100ML 100 ML IV SCH (07:18)
[2024-10-27] MEDS: POTASSIUM EFFERVESENT TAB 25 MEQ GT ONE (07:18)
[2024-10-27 07:21] LABS: Base Excess 3.6 mmol/L (-2.0-3.0)
[2024-10-27 09:11] LABS: Base Excess 4.2 mmol/L (-2.0-3.0)
[2024-10-27] MEDS ORDERED: METOPROLOL TARTRATE 25 MG TAB PO ONE (13:00)
[2024-10-27] MEDS: SOD CHL 0.9%/ KCL 40MEQ 1,000 ML IV SCH (13:17)
[2024-10-27] MEDS: MAGNESIUM SULFATE 1GM/100ML 100 ML IV SCH (13:20)
[2024-10-27] MEDS: METOPROLOL TARTRATE 25 MG TAB PO SCH (13:50)
--- NOTE | 2024-10-27 15:33 | DVHPN2 ---
Progress Note Date Seen: Oct 27, 2024 Has the PT tested + for MRSA If YES, has PT been informed?: No Medical Necessity Reason Pt with a Central, PICC or Fol: Yes The following are medically ne: Cutler Catheter Reason for cutler catheter: Strict I&O Subjective Review of Systems: Not Done (on mechanical ventillator ) Objective vital signs Vital Sign Date Time Temp Pulse Resp B/P (MAP) Pulse Ox O2 Delivery O2 Flow Rate FiO2 10/27/24 14:56 99.3 60 18 120/63 99.3 10/27/24 13:07 100 30 10/27/24 12:00 Mechanical Ventilator+ 10/25/24 19:05 30.0 Total Intake and Output 10/26/24 10/26/24 10/27/24 15:00 23:00 07:00 Intake Total 100 ml 175 ml Output Total 700 ml 650 ml Balance 100 ml -525 ml -650 ml medications Current Medications Medications Dose Ordered Sig/Liliam Route Start Time Stop Time Status Last Admin Dose Admin Midazolam HCl 50 ml @ 1 mls/hr Q24H IV 10/07/24 04:45 10/21/24 07:28 4 MLS/HR Ondansetron HCl 4 mg Q4HP PRN IV 10/07/24 10:00 Nitroglycerin 0.4 mg Q5MINP PRN SL 10/07/24 10:00 Pantoprazole Sodium 40 mg DAILY IV 10/07/24 10:00 10/27/24 11:09 40 MG Mexiletine HCl 150 mg TID GT 10/08/24 22:00 10/27/24 14:56 150 MG Acetaminophen 500 mg Q6HP PRN PO 10/08/24 22:30 10/19/24 03:18 500 MG Enteral Nutritional Formula 1,000 ml 55ML/HR GT 10/09/24 18:45 10/22/24 18:55 1,000 ML Phenylephrine HCl 80 mg/Sodium Chloride 250 ml @ 7.5 mls/hr Q24H IV 10/10/24 09:30 10/25/24 23:02 7.5 MLS/HR Furosemide 20 mg BIDD IV 10/12/24 18:00 10/26/24 17:54 20 MG Esmolol HCl 250 ml @ 0 mls/hr Q0M IV 10/14/24 10:45 Amino Acids 0 ml @ 0 mls/hr PER PHARMACY IV 10/15/24 18:45 Cancel Dextrose 50 ml UD IV 10/16/24 09:30 Cancel Polyethylene Glycol 17 gm DAILYPRN PRN GT 10/17/24 16:45 10/19/24 05:54 17 GM Doxycycline Monohydrate 100 mg Q12HR NG 10/18/24 10:00 10/27/24 09:20 100 MG Piperacillin Sod/ Tazobactam Sod 100 ml @ 25 mls/hr Q8HR IV 10/19/24 14:00 10/27/24 14:56 25 MLS/HR Hydrocortisone Sodium Succinate 50 mg Q6HR IV 10/19/24 18:00 10/27/24 13:49 50 MG Vancomycin HCl 0 ml @ 0 mls/hr UD IV 10/19/24 14:00 Cancel Vasopressin 20 units/Sodium Chloride 100 ml @ 9 mls/hr Q11H7M IV 10/19/24 15:45 Amino Acid Protein 30 ml DAILY GT 10/22/24 10:00 10/25/24 09:50 30 ML Fluconazole 100 ml @ 100 mls/hr DAILY IV 10/22/24 14:00 10/27/24 09:20 100 MLS/HR Apixaban 2.5 mg BID PO 10/25/24 10:00 Hold Metoclopramide HCl 5 mg BID IV 10/25/24 10:00 Hold 10/25/24 21:32 5 MG Sodium Chloride 10 ml QSHIFT@10,22 IV 10/26/24 22:00 10/27/24 11:09 10 ML Potassium Chloride/Sodium Chloride 1,000 ml @ 50 mls/hr Q20H IV 10/27/24 06:30 10/27/24 13:17 50 MLS/HR Metoprolol Tartrate 12.5 mg BID PO 10/27/24 13:30 10/27/24 13:50 12.5 MG Examination: GENERAL:Normal, LUNGS:Abnormal (diminished on vent), CVS:Normal, ABDOMEN:Normal, SKIN:Normal, NEURO:Normal laboratory and microbiology Laboratory Tests 10/27/24 02:30 Test 10/27/24 02:30 Range/Units Serum Glucose 106 74-106 mg/dL Microbiology Date/Time Source Procedure Growth Status 10/20/24 04:00 Sputum Gram Stain - Final Complete 10/20/24 04:00 Respiratory Culture - Final Enterobacter cloacae Yeast, not Ilda albicans Complete 10/20/24 01:03 Urine - [place] Urine Culture - Final Yeast, not Ilda albicans Complete 10/19/24 13:02 Blood Blood Culture - Final NO GROWTH AFTER 5 DAYS OF INCUBATION. Complete 10/07/24 16:50 Nose MRSA Screen - Final Complete Labs and/or images reviewed: Labs reviewed by me, Image(s) reviewed by me Problem List/Assessment/Plan Problem List/Assessment/Plan The patient is status post AICD placement following cardiac arrest with ventricular fibrillation presenting with acute hypoxic respiratory failure and enterobacter pneumonia. They have a history of coronary artery disease and coronary artery bypass grafting, and are being managed for acute and chronic systolic heart failure. The patient is currently experiencing acute hypoxic respiratory failure and is undergoing CPAP trials while off sedation. They have been diagnosed with enterobacter pneumonia and paroxysmal atrial fibrillation, and are being monitored for transaminitis. The patient was previously on a heparin drip, which has been discontinued. Cardiology has recommended keeping the patient off amiodarone due to elevated liver enzymes. The patient is to be started on Eliquis 2.5 mg BID once their INR drops below 2, with the current INR still elevated at 2.11. Esmolol may be used for rate control and arrhythmia management. The patient is currently receiving IV fluids and magnesium supplementation. They have been taken off vasopressin. The patient is on tube feedings, receiving Jevity. Daily spontaneous breathing trials are being conducted to assess the patient's ability to come off the ventilator. There is a possibility of placement in a long-term care facility if the patient remains ventilator-dependent. Recently, the patient was found to be severely hypokalemic with a potassium level of 2.8, which is being replaced. They also experienced a rhythm change that appeared to be junctional tachycardia. The patient is severely anemic with a hemoglobin of 7, and one unit of packed red blood cells was given. Cardiac Arrest with Ventricular Fibrillation Assessment: Patient experienced cardiac arrest with ventricular fibrillation, necessitating AICD placement by Dr. Armstrong. Currently off heparin drip. Cardiology recommends avoiding amiodarone due to elevated liver enzymes. Patient developed a rhythm change, appearing to be junctional tachycardia. INR remains elevated at 2.11. Plan: - Continue with [place] tool for cardiac monitoring - Transition to Eliquis 2.5 mg BID once INR is below 2 - If AFib-RVR develops, start Esmolol for rate control and V-tach prevention - Monitor EKG for AFib - Follow up with cardiology regarding recent rhythm change Acute and Chronic Systolic Heart Failure Assessment: Patient has a history of coronary artery disease and previous CABG. Currently managing acute and chronic systolic heart failure medically. Plan: - Continue IV Lasix 20 mg BID - Continue medical management for heart failure Acute Hypoxic Respiratory Failure Assessment: Patient experiencing acute hypoxic respiratory failure, currently undergoing CPAP trials and off sedation. Possibility of long-term care facility placement if unable to wean from ventilator. Plan: - Continue CPAP trials - Perform daily spontaneous breathing trials - Monitor respiratory status for potential ventilator weaning Transaminitis Assessment: Patient has elevated liver enzymes, impacting medication choices for cardiac management. Plan: - Monitor liver function - Hold off on starting amiodarone Enterobacter Pneumonia Assessment: Patient diagnosed with enterobacter pneumonia. Current status and resolution unclear. Plan: - Continue Zosyn - Reassess for pneumonia resolution Electrolyte Imbalances Assessment: Patient found to be severely hypokalemic with potassium of 2.8. Magnesium slightly low at 1.9. Plan: - Replace potassium - Monitor and correct magnesium levels as needed Severe Anemia Assessment: Patient is severely anemic with hemoglobin of 7. Plan: - Transfused 1 unit of packed red blood cells - Hold anticoagulation - Monitor hemoglobin levels Nutritional Support Assessment: Patient requiring nutritional support while hospitalized. Plan: - Continue tube feedings with Jevity Paroxysmal a fib -DC amiodarone, monitor EKG -start eliquis when INR is below 2 Plan discussed with: Other (RN) Dietary Evaluation Review Comments: 1) TF Jevity 1.2Cal @ 55 ml/hr. x 24hr along with Pro-stat 1 pk daily. Start @ 20ml/hr, increase 10ml/hr Q4H until goal is reached. TF @ goal volume provides 1684 kcal (100% energy needs), 88 gm protein (100% protein needs), 1065 ml free water. 2) Water flush 100ml Q4H if allowed, adjust PRN 3) Advance to cardiac diet as medically feasible 4) Monitor NPO status, lab values, wt trend, I/O Expected Outcomes/Goals: To meet >75% estimated needs within 7 days Lab values to improve Fu 2-3 days Date of Service: Oct 27, 2024 Billing Provider: CARLOS WHITAKER MD Common Visit Codes: [id number] INP/OBS CARE (MOD) [facility] Oct 27, 2024 15:33
--- NOTE | 2024-10-27 18:17 | DVHPN2 ---
Progress Note - Dictate Date Seen: Oct 27, 2024 Has the PT tested + for MRSA If YES, has PT been informed?: No Medical Necessity Reason Pt with a Central, PICC or Fol: Yes The following are medically ne: Cutler Catheter Reason for cutler catheter: Strict I&O Subjective Patient seen and examined at the bedside within ICU. Vital signs remain stable with the support of phenylephrine (Stone-Synephrine). The patient is in normal sinus rhythm with a heart rate in the 80s. She did have an episode of tachycardia which prompted an order from Dr Armstrong for metoprolol tartrate 12.5mg twice daily and an infusion of magnesium as last value this morning found to be below 2. Eliquis has not been started last INR 2.11. Chart reviewed. Patient's medications, allergies, past medical, surgical, social and family histories were obtained and reviewed as appropriate. vital signs Vital Sign Date Time Temp Pulse Resp B/P (MAP) Pulse Ox O2 Delivery O2 Flow Rate FiO2 10/27/24 17:44 121/71 10/27/24 16:00 59 10/27/24 16:00 25 100 Mechanical Ventilator+ 30 30 10/27/24 15:45 99.3 210.7 10/25/24 19:05 30.0 Total Intake and Output 10/26/24 10/26/24 10/27/24 15:00 23:00 07:00 Intake Total 100 ml 175 ml Output Total 700 ml 650 ml Balance 100 ml -525 ml -650 ml medications Current Medications Medications Dose Ordered Sig/Liliam Route Start Time Stop Time Status Last Admin Dose Admin Midazolam HCl 50 ml @ 1 mls/hr Q24H IV 10/07/24 04:45 10/21/24 07:28 4 MLS/HR Ondansetron HCl 4 mg Q4HP PRN IV 10/07/24 10:00 Nitroglycerin 0.4 mg Q5MINP PRN SL 10/07/24 10:00 Pantoprazole Sodium 40 mg DAILY IV 10/07/24 10:00 10/27/24 11:09 40 MG Mexiletine HCl 150 mg TID GT 10/08/24 22:00 10/27/24 14:56 150 MG Acetaminophen 500 mg Q6HP PRN PO 10/08/24 22:30 10/19/24 03:18 500 MG Enteral Nutritional Formula 1,000 ml 55ML/HR GT 10/09/24 18:45 10/22/24 18:55 1,000 ML Phenylephrine HCl 80 mg/Sodium Chloride 250 ml @ 7.5 mls/hr Q24H IV 10/10/24 09:30 10/25/24 23:02 7.5 MLS/HR Furosemide 20 mg BIDD IV 10/12/24 18:00 10/27/24 17:44 20 MG Esmolol HCl 250 ml @ 0 mls/hr Q0M IV 10/14/24 10:45 Amino Acids 0 ml @ 0 mls/hr PER PHARMACY IV 10/15/24 18:45 Cancel Dextrose 50 ml UD IV 10/16/24 09:30 Cancel Polyethylene Glycol 17 gm DAILYPRN PRN GT 10/17/24 16:45 10/19/24 05:54 17 GM Doxycycline Monohydrate 100 mg Q12HR NG 10/18/24 10:00 10/27/24 09:20 100 MG Piperacillin Sod/ Tazobactam Sod 100 ml @ 25 mls/hr Q8HR IV 10/19/24 14:00 10/27/24 14:56 25 MLS/HR Hydrocortisone Sodium Succinate 50 mg Q6HR IV 10/19/24 18:00 10/27/24 17:44 50 MG Vancomycin HCl 0 ml @ 0 mls/hr UD IV 10/19/24 14:00 Cancel Vasopressin 20 units/Sodium Chloride 100 ml @ 9 mls/hr Q11H7M IV 10/19/24 15:45 Amino Acid Protein 30 ml DAILY GT 10/22/24 10:00 10/25/24 09:50 30 ML Fluconazole 100 ml @ 100 mls/hr DAILY IV 10/22/24 14:00 10/27/24 09:20 100 MLS/HR Apixaban 2.5 mg BID PO 10/25/24 10:00 Hold Metoclopramide HCl 5 mg BID IV 10/25/24 10:00 Hold 10/25/24 21:32 5 MG Sodium Chloride 10 ml QSHIFT@10,22 IV 10/26/24 22:00 10/27/24 11:09 10 ML Potassium Chloride/Sodium Chloride 1,000 ml @ 50 mls/hr Q20H IV 10/27/24 06:30 10/27/24 13:17 50 MLS/HR Metoprolol Tartrate 12.5 mg BID PO 10/27/24 13:30 10/27/24 13:50 12.5 MG objective Heart: S1 and S2 present. The patient is in sinus rhythm. Lungs: Clear to auscultation Abdomen: Benign. Extremities: Distal pulses palpable, 2+. No evidence for peripheral edema laboratory and microbiology Laboratory Tests 10/27/24 02:30 Test 10/27/24 02:30 Range/Units Serum Glucose 106 74-106 mg/dL Assessment/Plan Still intubated and in ICU. Off pressure support. Off sedation, still not regaining higher brain function. Patient is a 54-year-old female who was brought to the hospital for witnessed syncope. She is intubated and is being managed in ICU. Information was obtained by reviewing the chart and communicating with patient's son (over the phone). Family recognized witnessed syncope and started CPR and called EMS. Reportedly, EMS found the patient in ventricular fibrillation and shocked the patient and brought the patient to the hospital. Patient was intubated in emergency room and transferred to ICU. Patient was on amiodarone drip. Later the patient had ventricular tachycardia (Systane). High sensitive troponin had been minimally/flatly elevated. Presentation was not in favor of acute coronary syndrome. Cardiology is involved for cardiac aspects of care. Intubated. Noncommunicative. No JVD. Mucosa pale. No carotid bruit. Scattered rhonchi in the lungs is heard. Cardiac: Regular, no thrill. Systolic murmur 2/6 in apex is heard. Abdomen is soft. No edema in extremities. Past medical history as per son: Congenital heart disease, status post bypass WBC: 14.5 - 11.9 - 18.8 - 20.0 - 21.2 - 14.3 - 10.3 - 8.9 - 9.2 - 11.1 - 12.1 - 10.8 - 12.0 - 9.9 - 15.4 - 14.8 - 12.1 - 10.5 - 5.8 - 5.3 - 4.2 - 5.8 Hemoglobin: 10.1 - 9.6 - 9.2 - 8.8 - 8.7 - 8.0 - 8.3 - 8.5 - 7.8 - 10.2 - 10.7 - 9.9 - 9.7 - 9.3 - 9.3 - 8.6 - 8.1 - 7.4 - 7.5 - 7.4 - 7.5 - 7.2 - 7.7 Creatinine: 0.95 - 0.93 - 0.87 - 0.83 - 0.83 - 0.76 - 0.68 - 0.72 - 0.79 - 0.76 - 0.80 - 0.84 - 0.61 - 0.65 - 0.74 - 0.64 - 0.73 - 0.82 - 0.88 - 1.03 - 0.99 - 0.85 - 0.87 Potassium: 3.4 - 4.0 - 4.6 - 3.5 - 3.3 - 4.1 - 3.7 - 3.2 - 3.7 - 4.0 - 3.2 - 3.4 - 3.9 - 4.2 - 3.3 - 3.8 - 3.6 - 3.4 - 4.2 - 3.8 - 4.5 - 4.1 - 3.5 - 4.2 - 3.3 - 2.6 - 3.5 - 3.8 - 2.4 - 2.9 - 4.6 Magnesium: 2.0 - 1.6 - 2.0 - 3.0 - 1.5 - 1.9 - 2.1 - 1.8 - 2.0 - 1.9 - 1.9 - 2.6 - 2.0 - 1.8 - 1.6 - 2.0 - 2.2 - 1.9 - 2.3 - 2.2 - 2.2 - 2.1 - 2.1 Troponin (high sensitive): 141 - 138 - 117 BNP: 457.16 AST/ALT: 32/11 - 19/13 - 538/168 - 293/152 - 131/130 - 78/94 - 68/74 - 48/57 - 27/38 - 15/23 - 20/18 - 23/17 - 29/16 - 27/13 - 34/17 - 73/49 - 41/43 - 30/47 - 30/42 - 29/42 Digoxin level: 2.83 - 1.25 - 0.98 UDS: non-revealing Chest x-ray revealed: Lines and Tubes: Endotracheal tube tip projects approximately 1.4 cm above the level of the tyler. Enteric catheter courses below the lateral of the diaphragm and terminates beyond the inferior margin of the image. Right internal jugular central venous catheter terminates within the distal superior vena cava. Lungs: Moderate diffuse increased prominence of the pulmonary vasculature without evidence of focal consolidation. Pleura: No effusion. No pneumothorax. Cardiomediastinal contours: Cardiomegaly. Bones: Unremarkable IMPRESSION: 1. Cardiomegaly and diffuse increased prominence of the pulmonary vasculature. 2. Lines and tubes as above. Repeat chest x-ray revealed: IMPRESSION: 1. Endotracheal tube tip 1.6 cm above the tyler; consider 2 cm retraction 2. Mild pulmonary vascular congestion. Moderate cardiomegaly. Repeat chest xry revealed: IMPRESSION: Endotracheal tube tip 1.6 cm above the tyler; consider 2 cm retraction Mild pulmonary vascular congestion. Moderate cardiomegaly. Repeat chest xry revealed: IMPRESSION: 1. Stable cardiomegaly, small left pleural effusion and mild diffuse increased prominence of the pulmonary vasculature. 2. Repositioned endotracheal tube as above. Remaining lines and tubes unchanged. Repeat chest xry revealed: IMPRESSION: 1. Cardiomegaly, stable diffuse increased prominence of the pulmonary vasculature and small bilateral pleural effusions. 2. Slight interval advancement of endotracheal tube as above. Remaining lines and tubes unchanged. Repeat chest xry revealed: IMPRESSION: 1. Slight interval decrease in diffuse increased prominence of the pulmonary vasculature. 2. Stable cardiomegaly and small left pleural effusion. 3. Lines and tubes unchanged. Repeat chest xry revealed: IMPRESSION: 1. Cardiomegaly and small left pleural effusion. 2. Lines and tubes unchanged. Repeat chest xry revealed: IMPRESSION: Stable lines and tubes. Similar lung aeration. Repeat chest xry revealed: IMPRESSION: Cardiomegaly and small left pleural effusion. Lines and tubes unchanged. Repeat chest xry revealed: IMPRESSION: Placement of a cardiac pacer, no pneumothorax is seen. Stable lines and tubes. Repeat chest xry revealed: IMPRESSION: 1. Worsening mixed opacities in the right lower lung. No other significant change from the previous study. Stable support devices. Repeat chest xry revealed: Heart is prominent in size with postsurgical changes, median sternotomy wires, and a single lead left cardiac defibrillator. Support lines and tubes appear unchanged in satisfactory in position. No sizable effusion or pneumothorax. Mild pulmonary vascular congestion. No significant interval change. Repeat chest xry revealed: IMPRESSION: 1. No significant change from the previous study. Stable support devices. Similar findings of heart failure including left pleural effusion. Repeat chest xry revealed: IMPRESSION: 1. No significant change from the previous study. Stable support devices. Similar findings of heart failure including trace left pleural effusion. KUB revealed: IMPRESSION: Nonobstructive bowel gas pattern. Nasogastric tube tip in the stomach. Large stool burden. Left upper ext arterial duplex: IMPRESSION: No hemodynamically significant stenosis based on peak systolic velocity criteria. Left lower ext arterial duplex: IMPRESSION: There is no evidence for peripheral vascular insufficiency in the left lower extremity. No significant focal stenosis is identified. Liver Ultrasound revealed: Hepatic steatosis. Hepatomegaly. Cholelithiasis. CT of the head revealed: IMPRESSION: No acute intracranial abnormality. Repeat CT of head revealed: IMPRESSION: No acute intracranial abnormality. Echocardiogram reported: lvef 15-20% dilated LV severe global dysfunction mild RV dysfunction biatrial enlargement mild moderate MAC, moderate mitral regurg mild to moderate aortic regug (images of echo reviewed and questioned presence of mitral ring and also some component (moderate of Mitral stenosis) EKG revealed sinus rhythm Telemetry revealed occasions of atrial fibrillation. There was occasional sustained ventricular tachycardia. EMS tele monitor revealed ventricular fibrillation for which the patient was shocked. Has remained sinus rhythm. Later with A-fib with MVR LHC revealed: Patent RICHMOND to LAD; Patent SVG to obtuse marginal; LVEF of 20% with increased EDP; Proximal disease in LAD/LCX RICHIE was performed: Consistent with severely reduced LVEF. Consistent with previously implanted Mitral ring, Up to moderate Mitral stenosis/Mitral Regurgitation and also Moderate Aortic insufficiency. Patient is a 54-year-old female who presented with witnessed syncope. She was found to have ventricular fibrillation for which was shocked. Later had repeated episode of sustained ventricular tachycardia. Patient has been kept in ICU. Does have baseline history of coronary artery disease for which has had bypass surgery. Left heart catheterization was performed which revealed patent RICHMOND and patent SVG. ACS is not considered at this point. It is of note that the patient's echocardiogram reveals significantly use systolic function. Valvular heart disease is considered. Findings are in favor of previously implanted mitral ring. By reviewing the echo images, component of up to moderate mitral stenosis could not be ruled out. LHC was performed that ruled out any active specific ischemia as an etiology for presentation. Is off Amiodarone for abnormal LFT. Being followed by Nephrology / Pulmonary / Neurology / GI ID. Tele has remained sinus rhythm. Had episode of a-fib with RVR. Was loaded with Digoxin. Dig level was performed at wrong timing (only 5 hours after the last Dig given). Dig toxicity is not considered. Patient is back to normal sinus rhythm. Has good kidney function. Repeat Dig level is acceptable level. s/p ICD implantation by EP Cardiac suggestion for management: This is a 54-year old female who initially presented 10/07/2024 due to witnessed syncope. As per records and having spoke with family members (son/father), patient had collapsed in the kitchen as witnessed by nearby family members whom had initiated CPR. EMS had been called for further medical attention and upon their arrival reports indicate the patient had been found in ventricular fibrillation for which she was subsequently shocked by EMS and upon rhythm strip analysis of the event, rhythm itself does reveal evidence for what appears to be ventricular fibrillation requiring shock x 1 which upon ED arrival 12-lead electrocardiogram had revealed sinus rhythm at 84bpm, QRS of 96ms with a QTC interval of 495 ms. Upon ED arrival patient was intubated and initiated on Amiodarone infusion for rhythm management. Patient was later admitted to the ICU for close observation/management and had been noted to experience episodes of ventricular tachycardia that had degenerated into ventricular fibrillation resulting in cardiac arrest requiring initiation of CPR/ACLS protocol which the patient was subsequently shocked x 1 resulting in ROSC. Patient did undergo subsequent cardiac catheterization 10/08/2024 by Interventional Cardiology services revealing patent RICHMOND to LAD, patent SVG to obtuse marginal, proximal disease involving LAD and LCX. Echocardiogram 10/07/2024 had revealed a severely reduced LVEF function of 15-20%, dilated LV with severe global dysfunction, biatrial enlargement, moderate mitral insufficiency with mild to moderate aortic insufficiency. TTE itself had questioned potential presence of mitral ring and potential underlying component of mitral stenosis which subsequent RICHIE 10/08/2024 had revealed evidence of mitral ring with up to moderate mitral stenosis/mitral insufficiency in addition to moderate aortic insufficiency. Throughout course of present admission, patient has been furthermore noted to experience episodes of paroxysmal atrial fibrillation for which she has been maintained on anticoagulation for CVA prophylaxis. As the patient presented and was found to experience episodes of ventricular fibrillation requiring a total of 2 shocks, Electrophysiology services were later involved by Interventional Cardiology request to evaluate the patient for potential AICD implantation. Reported past medical history includes congenital heart disease, coronary artery disease status post previous bypass surgery Echocardiogram: (10/07/2024) revealed lvef 15-20% dilated LV severe global dysfunction mild RV dysfunction biatrial enlargement mild moderate MAC, moderate mitral regurg mild to moderate aortic regug (images of echo reviewed and questioned presence of mitral ring and also some component (moderate of Mitral stenosis) Cardiac Catheterization: (10/08/2024) revealed Patent RICHMOND to LAD; Patent SVG to obtuse marginal; LVEF of 20% with increased EDP; Proximal disease in LAD/LCX Transesophageal Echocardiogram (10/08/2024) revealed was performed: Consistent with severely reduced LVEF. Consistent with previously implanted Mitral ring, Up to moderate Mitral stenosis/Mitral Regurgitation and also Moderate Aortic insufficiency. VHD, s/p Mitral ring Abnormal LFT, resolved s/p ICD (Biotronik) implantation by EP (Dr Armstrong) Syncope, witnessed Cardiac arrest, status post ROSC Ventricular fibrillation, requiring shock x 2 Ventricular tachycardia with degeneration to ventricular fibrillation Systolic heart failure, severely reduced LV function of 15-20% Paroxysmal atrial fibrillation, currently sinus rhythm Coronary artery disease, s/p previous 2-V CABG Valvular heart disease, s/p previous mitral ring Beta-hemolytic group B streptococcus Full anticoagulation (a-fib with high CHADS-Vasc score). s/p ICD implantation. As per oral communication by Dr Armstrong (EP), we can change the A/C to Eliquis Off Amio drip (worsened LFT) (personally discussed with EP: Dr Armstrong who advised to stop / not to restart Amiodarone) On Mexiletine If need for pressure support: use Phenyl Ephrine / vasopressin, keep MAP above 65 (for now off pressure support and tolerating) May consider Esmolol for PVC/Vtach s/p ICD (Biotronik) implantation by EP Off warfarin: Eliquis: 2.5 mg BID (only after INR is below 2.0) Proceed with close rate and rhythm surveillance Proceed with close hemodynamic surveillance Proceed with optimized blood pressure control Transfuse to sustain HGB level above 7.0 Sustain Magnesium level greater than 2.0 Sustain Potassium level greater than 4.0 Follow up renal function and electrolytes Management of ongoing concurrent medical conditions as per primary team Management of beta-hemolytic group B strep as per primary team/ID Management comorbidities as per primary team Management in the ICU Follow up human resources consultant recommendations Will proceed to follow from an EP perspective Further recommendations per clinical progression All available diagnostic labs, EKG's, and images were personally reviewed Patient's status, findings, and plan of care was reviewed and discussed with supervising physician Dr. Armstrogn, who is in agreement with current plan of care. Plan of care discussed with and agreed upon by family / primary RN Prognosis: Guarded Thank you for allowing me to participate in the care of this patient. Further recommendations based on patients clinical course and progression, primary attending, and other consultants. Will continue to follow with primary attending. If you have any questions or concerns, please do not hesitate to contact me. A total of 75 minutes was spent reviewing the patient record, examining the patient, making a diagnostic and therapeutic plan, discussing this plan with medical personnel, following up on diagnostic studies and following the patient for clinical stability excluding any and all procedures. At least 50% of this time was spent in direct, [id number] contact. Dietary Evaluation Review Comments: 1) TF Jevity 1.2Cal @ 55 ml/hr. x 24hr along with Pro-stat 1 pk daily. Start @ 20ml/hr, increase 10ml/hr Q4H until goal is reached. TF @ goal volume provides 1684 kcal (100% energy needs), 88 gm protein (100% protein needs), 1065 ml free water. 2) Water flush 100ml Q4H if allowed, adjust PRN 3) Advance to cardiac diet as medically feasible 4) Monitor NPO status, lab values, wt trend, I/O Expected Outcomes/Goals: To meet >75% estimated needs within 7 days Lab values to improve Fu 2-3 days Plan discussed with: James, Other (Primary RN) PENNY AVILA COMBO WELDER Oct 27, 2024 18:17
--- NOTE | 2024-10-27 20:04 | DVHPN2 ---
Progress Note - Dictate Date Seen: Oct 27, 2024 Has the PT tested + for MRSA If YES, has PT been informed?: No Medical Necessity Reason Pt with a Central, PICC or Fol: Yes The following are medically ne: Cutler Catheter Reason for cutler catheter: Strict I&O Subjective Ms. Smith is a 54 years old female who was brought to the [facility] on 10/07/2024 with a chief complaint of cardiopulmonary arrest/status post CPR. I have seen and examined the patient, I have discussed with her nurse, she is intubated, awake, on vent, RN: she followed verbal commands, she does not move the arms and legs She received pacemaker insertion on 10/17/2024 Blood culture, 10/09/2024: No growth Blood culture, 10/19/2024: UDS, 10/07/2024: Negative Urinalysis, 10/07/2024: Leukocyte esterase: Negative WBC/HB/PLT/MCV, 10/09/2024: 20/8.8/219/94.6, 10/10/2024: 21.2/8.7/232/92.2 PT/INR/PTT, 10/08/2024: 12.4/1.19/72.7, 10/09/2024: 13.1/1.26/68.9, 10/10/2024: 14.4/2/1.38/35.3 CMP, 10/08/2024: Unremarkable Troponin one high sensitivity, 10/07/2024: 141, 138, 117 TBI/AST/ALT/AP, 10/10/2024: 0.5/538/168/144, 10/11/2024: 0.6/293/199/152, 10/14/2024: 0.8/68/74/124 TG/HDL/LDL/HDL, 10/07/24: 71/66/31/21 EKG 10/10/2024: Atrial fibrillation EKG, 10/15/2024: Atrial fibrillation Echocardiogram, 10/07/2024: lvef 15-20% dilated LV severe global dysfunction mild RV dysfunction biatrial enlargement mild moderate MAC, moderate mitral regurg mild to moderate aortic regug RICHIE, 10/08/2024: 1. Left ventricle: Dilated LV was seen. LVEF was 25%. There was diffuse hypokinesis of left ventricle. 2. Right ventricle: RV was mildly dilated. 3. Left atrium: LA enlarged 4. Right atrium: RA was enlarged. 5. Mitral valve: Mitral was thickened with reduced opening. Moderate Mitral regurgitation was seen. Planinomentry of valve (TTE images also obtained) revealed MVA of 2.1 cm. Mean pressure gradient (obtained from limited TTE images) was 5. Images are consistent with previously implanted Ring in Mitral position. Consistent with up to Moderate Mitral stenosis. . There was no vegetation 6. Left atrial appendage: No evidence of thrombus. 7. Aortic valve: Trileaflet valve. No stenosis. Up to moderate Aortic Insufficiency was seen. There was no vegetation 8. Pulmonic valve: Trivial pulmonic insufficiency. No significant stenosis. 9. Tricuspid valve: Mild tricuspid regurgitation. There was no vegetation 10. Interatrial septum: Negative color flow for right to left shunt was observed. Bubble study was performed: negative for shunt 11. Pericardium: No significant effusion. 12. Thoracic aorta: No significant plaquing. Chest x-ray, 10/27/2024: 1. Cardiomegaly, stable diffuse increased prominence of the pulmonary vasculature and small bilateral pleural effusions. 2. Slight interval advancement of endotracheal tube as above. Remaining lines and tubes unchanged. CT head, 10/07/2024: No acute intracranial abnormality General: the patient is well developed and nourished. No acute distress. Intubated CT head, 10/07/2024: No acute intracranial abnormality. CT head, 10/11/2024: No acute intracranial abnormality vital signs Vital Sign Date Time Temp Pulse Resp B/P (MAP) Pulse Ox O2 Delivery O2 Flow Rate FiO2 10/27/24 18:45 98.4 55 15 106/60 (75) 100 98.4 10/27/24 18:38 30 10/27/24 18:37 Mechanical Ventilator 10/25/24 19:05 30.0 Total Intake and Output 10/26/24 10/26/24 10/27/24 15:00 23:00 07:00 Intake Total 100 ml 175 ml Output Total 700 ml 650 ml Balance 100 ml -525 ml -650 ml medications Current Medications Medications Dose Ordered Sig/Liliam Route Start Time Stop Time Status Last Admin Dose Admin Midazolam HCl 50 ml @ 1 mls/hr Q24H IV 10/07/24 04:45 10/21/24 07:28 4 MLS/HR Ondansetron HCl 4 mg Q4HP PRN IV 10/07/24 10:00 Nitroglycerin 0.4 mg Q5MINP PRN SL 10/07/24 10:00 Pantoprazole Sodium 40 mg DAILY IV 10/07/24 10:00 10/27/24 11:09 40 MG Mexiletine HCl 150 mg TID GT 10/08/24 22:00 10/27/24 14:56 150 MG Acetaminophen 500 mg Q6HP PRN PO 10/08/24 22:30 10/19/24 03:18 500 MG Enteral Nutritional Formula 1,000 ml 55ML/HR GT 10/09/24 18:45 10/22/24 18:55 1,000 ML Phenylephrine HCl 80 mg/Sodium Chloride 250 ml @ 7.5 mls/hr Q24H IV 10/10/24 09:30 10/25/24 23:02 7.5 MLS/HR Furosemide 20 mg BIDD IV 10/12/24 18:00 10/27/24 17:44 20 MG Esmolol HCl 250 ml @ 0 mls/hr Q0M IV 10/14/24 10:45 Amino Acids 0 ml @ 0 mls/hr PER PHARMACY IV 10/15/24 18:45 Cancel Dextrose 50 ml UD IV 10/16/24 09:30 Cancel Polyethylene Glycol 17 gm DAILYPRN PRN GT 10/17/24 16:45 10/19/24 05:54 17 GM Doxycycline Monohydrate 100 mg Q12HR NG 10/18/24 10:00 10/27/24 09:20 100 MG Piperacillin Sod/ Tazobactam Sod 100 ml @ 25 mls/hr Q8HR IV 10/19/24 14:00 10/27/24 14:56 25 MLS/HR Hydrocortisone Sodium Succinate 50 mg Q6HR IV 10/19/24 18:00 10/27/24 17:44 50 MG Vancomycin HCl 0 ml @ 0 mls/hr UD IV 10/19/24 14:00 Cancel Vasopressin 20 units/Sodium Chloride 100 ml @ 9 mls/hr Q11H7M IV 10/19/24 15:45 Amino Acid Protein 30 ml DAILY GT 10/22/24 10:00 10/25/24 09:50 30 ML Fluconazole 100 ml @ 100 mls/hr DAILY IV 10/22/24 14:00 10/27/24 09:20 100 MLS/HR Apixaban 2.5 mg BID PO 10/25/24 10:00 Hold Metoclopramide HCl 5 mg BID IV 10/25/24 10:00 Hold 10/25/24 21:32 5 MG Sodium Chloride 10 ml QSHIFT@10,22 IV 10/26/24 22:00 10/27/24 11:09 10 ML Potassium Chloride/Sodium Chloride 1,000 ml @ 50 mls/hr Q20H IV 10/27/24 06:30 10/27/24 13:17 50 MLS/HR Metoprolol Tartrate 12.5 mg BID PO 10/27/24 13:30 10/27/24 13:50 12.5 MG objective The patient is well-nourished and well-developed with no distress. The patient is intubated MENTAL STATUS: Subjective CRANIAL NERVES: Pupils are equal, round and reactive.There are corneal reflexes and doll's eyes phenomenon. No signs of facial weakness. There are gagging or coughing reflexes SENSATION: Responses to pain stimuli. MOTOR: Normal tone in the upper and lower extremity. Normal muscle bulk. No fasciculations. No spontaneous movement. REFLEXES: Deep tendon reflexes are symmetrical. No pathological reflexes. CEREBELLAR/COORDINATION: Deferred GAIT/STATION: deferred. laboratory and microbiology Laboratory Tests 10/27/24 02:30 Test 10/27/24 02:30 Range/Units Serum Glucose 106 74-106 mg/dL Problem List Cardiopulmonary arrest Status post CPR Metabolic encephalopathy Hypoxic encephalopathy Congestive heart failure Leukocytosis/sepsis/septic shock Respiratory failure Elevated liver function tests AFib S/P pacemaker insertion on 10/17/2024 Assessment/Plan Monitoring Supportive treatment ICU care Stabilize vitals Respiratory support/vent management Hold off Lipitor (elevated liver function tests), LDL (31) (home medications included Lipitor 40 mg daily) DVT prophylaxis GI prophylaxis Cardiology on case Pulmonology on case Nephrology on case Consult GI Re: Elevated liver function tests Need more history Extubation when she is ready This medical document was created using an electronic medical record system with [employer] dictation system. Although this document has been carefully reviewed, there may still be some phonetic and typographical errors. These areas are purely typographical due to imperfections of the software programs, and do not reflect any compromise in the patient's medical care. Prognosis guarded Dietary Evaluation Review Comments: 1) TF Jevity 1.2Cal @ 55 ml/hr. x 24hr along with Pro-stat 1 pk daily. Start @ 20ml/hr, increase 10ml/hr Q4H until goal is reached. TF @ goal volume provides 1684 kcal (100% energy needs), 88 gm protein (100% protein needs), 1065 ml free water. 2) Water flush 100ml Q4H if allowed, adjust PRN 3) Advance to cardiac diet as medically feasible 4) Monitor NPO status, lab values, wt trend, I/O Expected Outcomes/Goals: To meet >75% estimated needs within 7 days Lab values to improve Fu 2-3 days Plan discussed with: Other CAROLINE ROBB MD Oct 27, 2024 20:04
[2024-10-27 20:22] LABS: Potassium 4.8 mmol/L (3.5-5.1)
[2024-10-27 20:31] LABS: Magnesium 2.7 mg/dL (1.6-2.6)
--- NOTE | 2024-10-27 22:40 | DVHPN2 ---
Progress Note - Dictate Date Seen: Oct 27, 2024 Has the PT tested + for MRSA If YES, has PT been informed?: No Medical Necessity Reason Pt with a Central, PICC or Fol: Yes The following are medically ne: PICC Line, Cutler Catheter Reason for cutler catheter: Strict I&O Subjective Patient is seen and examined at bedside Intubated on mechanical ventilator. Overnight events reviewed. vital signs Vital Sign Date Time Temp Pulse Resp B/P (MAP) Pulse Ox O2 Delivery O2 Flow Rate FiO2 10/27/24 22:30 64 108/60 10/27/24 21:00 98.4 21 100 98.4 10/27/24 20:14 30 10/27/24 20:00 Mechanical Ventilator+ 10/25/24 19:05 30.0 Total Intake and Output 10/26/24 10/26/24 10/27/24 15:00 23:00 07:00 Intake Total 100 ml 175 ml Output Total 700 ml 650 ml Balance 100 ml -525 ml -650 ml medications Current Medications Medications Dose Ordered Sig/Liliam Route Start Time Stop Time Status Last Admin Dose Admin Midazolam HCl 50 ml @ 1 mls/hr Q24H IV 10/07/24 04:45 10/21/24 07:28 4 MLS/HR Ondansetron HCl 4 mg Q4HP PRN IV 10/07/24 10:00 Nitroglycerin 0.4 mg Q5MINP PRN SL 10/07/24 10:00 Pantoprazole Sodium 40 mg DAILY IV 10/07/24 10:00 10/27/24 11:09 40 MG Mexiletine HCl 150 mg TID GT 10/08/24 22:00 10/27/24 22:30 150 MG Acetaminophen 500 mg Q6HP PRN PO 10/08/24 22:30 10/19/24 03:18 500 MG Enteral Nutritional Formula 1,000 ml 55ML/HR GT 10/09/24 18:45 10/22/24 18:55 1,000 ML Phenylephrine HCl 80 mg/Sodium Chloride 250 ml @ 7.5 mls/hr Q24H IV 10/10/24 09:30 10/25/24 23:02 7.5 MLS/HR Furosemide 20 mg BIDD IV 10/12/24 18:00 10/27/24 17:44 20 MG Esmolol HCl 250 ml @ 0 mls/hr Q0M IV 10/14/24 10:45 Amino Acids 0 ml @ 0 mls/hr PER PHARMACY IV 10/15/24 18:45 Cancel Dextrose 50 ml UD IV 10/16/24 09:30 Cancel Polyethylene Glycol 17 gm DAILYPRN PRN GT 10/17/24 16:45 10/19/24 05:54 17 GM Doxycycline Monohydrate 100 mg Q12HR NG 10/18/24 10:00 10/27/24 22:30 100 MG Piperacillin Sod/ Tazobactam Sod 100 ml @ 25 mls/hr Q8HR IV 10/19/24 14:00 10/27/24 22:30 25 MLS/HR Hydrocortisone Sodium Succinate 50 mg Q6HR IV 10/19/24 18:00 10/27/24 17:44 50 MG Vancomycin HCl 0 ml @ 0 mls/hr UD IV 10/19/24 14:00 Cancel Vasopressin 20 units/Sodium Chloride 100 ml @ 9 mls/hr Q11H7M IV 10/19/24 15:45 Amino Acid Protein 30 ml DAILY GT 10/22/24 10:00 10/25/24 09:50 30 ML Fluconazole 100 ml @ 100 mls/hr DAILY IV 10/22/24 14:00 10/27/24 09:20 100 MLS/HR Apixaban 2.5 mg BID PO 10/25/24 10:00 Hold Metoclopramide HCl 5 mg BID IV 10/25/24 10:00 Hold 10/25/24 21:32 5 MG Sodium Chloride 10 ml QSHIFT@10,22 IV 10/26/24 22:00 10/27/24 22:00 10 ML Potassium Chloride/Sodium Chloride 1,000 ml @ 50 mls/hr Q20H IV 10/27/24 06:30 10/27/24 13:17 50 MLS/HR Metoprolol Tartrate 12.5 mg BID PO 10/27/24 13:30 10/27/24 22:30 12.5 MG objective Gen.: Patient lying in bed in medical ICU. Intubated on mechanical ventilator. Head: Normocephalic, atraumatic. Eyes: PERRLA. Ears: Normal external anatomy. Throat: Endotracheal tube and orogastric tube in place. Neck: Supple, trachea midline. Chest: Transmitted breath sounds bilaterally. Decreased air entry bilaterally. No wheezing. Bibasilar crackles. Cardiovascular: Positive S1, positive S2. Regular rate and rhythm. Abdomen: Positive bowel sounds in all 4 quadrants. Soft, nontender, nondistended. : Cutler in place. Normal external genitalia. Rectal: Deferred. Skin: Warm, dry. Intact. Extremities: 2+ radial pulses bilaterally. No lower extremity edema. Neuro: Off sedation laboratory and microbiology Laboratory Tests 10/27/24 19:57 10/27/24 02:30 Test 10/27/24 02:30 Range/Units Serum Glucose 106 74-106 mg/dL Assessment/Plan Impression: Acute hypoxic respiratory failure On mechanical ventilator s/p cardiac arrest Ventricular tachycardia CPR <5 min Elevated troponin Atelectasis Events: Pt seen and examined in ICU Remains off sedation, awaiting for mentation to improve CPAP with PS 8, PEEP of 5, FiO2 30% - patient tolerated Continue daily CPAP trials. Neurology recs appreciated. ABG notable for alkalemia Hemoglobin of 7.0 g/dL Plan for 1 unit PRBC transfusion. Remains off pressors Hemodynamically stable Continue antibiotics Continue antifungal Monitor blood pressure Follow up Cardiology recommendations Protonix for GI ppx Clinimix for nutritional support Discuss goals of care with family - LTAC evaluation vs. trach/PEG vs. compassionate extubation. Labs and imaging reviewed. Plan: s/p intubation on mechanical ventilator. AC mode with RR 18, VT 450, PEEP 5, FiO2 30% Titrate FIO2 to keep O2 saturation above 90%. VAP bundle. Daily ABG and CXR while intubated Off sedation Pressors as necessary for hemodynamic support. Titrate to keep MAP greater than 65 mmHg. Patient is s/p pacemaker Cardiology recs appreciated. Continue antibiotics. F/u cultures. Continue antifungal IV steroids Accu-Cheks, ISS PRN. Monitor labs Monitor renal function Monitor electrolytes. Supplement as necessary. Monitor ins and outs. Maintain euvolemia F/u Cardiology recs. GI/DVT prophylaxis. SBT/CORINE Discuss goals of care with family- LTAC evaluation vs. trach/PEG vs. compassionate extubation. Prognosis: Poor given patient's multiple co-morbidities. Condition: Critical Rest of plan per hospitalist and other consultants. A total of 35 minutes of critical care time was spent reviewing the patient record, examining the patient, making a diagnostic and therapeutic plan, discussing this plan with the medical personnel, following up on diagnostic studies and following the patient for clinical stability excluding any and all procedures. At least 50% of this time was spent in direct, [id number] contact. Thank you, [employer] Jason, for allowing me to participate in this patient's care. Further recommendations will depend on the patient's clinical course. Please do not hesitate to contact me if you have any questions or concerns. This medical document was created using an electronic medical record system with [employer] dictation system. Although these documentations are being carefully reviewed, there may still be some phonetic and typographical changes. The errors are purely typographical, due to imperfection on the software program, and do not reflect any compromise in the patient's medical care. Dietary Evaluation Review Comments: 1) TF Jevity 1.2Cal @ 55 ml/hr. x 24hr along with Pro-stat 1 pk daily. Start @ 20ml/hr, increase 10ml/hr Q4H until goal is reached. TF @ goal volume provides 1684 kcal (100% energy needs), 88 gm protein (100% protein needs), 1065 ml free water. 2) Water flush 100ml Q4H if allowed, adjust PRN 3) Advance to cardiac diet as medically feasible 4) Monitor NPO status, lab values, wt trend, I/O Expected Outcomes/Goals: To meet >75% estimated needs within 7 days Lab values to improve Fu 2-3 days Plan discussed with: Other (CEE Olsen) Critical Care Time(min): 35 KENNY FROST MD Oct 27, 2024 22:40
--- NOTE | 2024-10-27 22:52 | DVHPN2 ---
Progress Note - Dictate Date Seen: Oct 27, 2024 Has the PT tested + for MRSA If YES, has PT been informed?: No Medical Necessity Reason Pt with a Central, PICC or Fol: Yes The following are medically ne: Cutler Catheter Reason for cutler catheter: Strict I&O Subjective Patient undergoing CPAP trial Tube feedings on hold One loose liquid BM today Hemoglobin dropped down to 7.0, receiving 1 unit PRBC No active GI bleeding reported Liver enzymes have normalized vital signs Vital Sign Date Time Temp Pulse Resp B/P (MAP) Pulse Ox O2 Delivery O2 Flow Rate FiO2 10/27/24 22:30 64 108/60 10/27/24 22:00 22 100 Mechanical Ventilator+ 30 30 10/27/24 21:00 98.4 98.4 10/25/24 19:05 30.0 Total Intake and Output 10/26/24 10/26/24 10/27/24 15:00 23:00 07:00 Intake Total 100 ml 175 ml Output Total 700 ml 650 ml Balance 100 ml -525 ml -650 ml medications Current Medications Medications Dose Ordered Sig/Liliam Route Start Time Stop Time Status Last Admin Dose Admin Midazolam HCl 50 ml @ 1 mls/hr Q24H IV 10/07/24 04:45 10/21/24 07:28 4 MLS/HR Ondansetron HCl 4 mg Q4HP PRN IV 10/07/24 10:00 Nitroglycerin 0.4 mg Q5MINP PRN SL 10/07/24 10:00 Pantoprazole Sodium 40 mg DAILY IV 10/07/24 10:00 10/27/24 11:09 40 MG Mexiletine HCl 150 mg TID GT 10/08/24 22:00 10/27/24 22:30 150 MG Acetaminophen 500 mg Q6HP PRN PO 10/08/24 22:30 10/19/24 03:18 500 MG Enteral Nutritional Formula 1,000 ml 55ML/HR GT 10/09/24 18:45 10/22/24 18:55 1,000 ML Phenylephrine HCl 80 mg/Sodium Chloride 250 ml @ 7.5 mls/hr Q24H IV 10/10/24 09:30 10/25/24 23:02 7.5 MLS/HR Furosemide 20 mg BIDD IV 10/12/24 18:00 10/27/24 17:44 20 MG Esmolol HCl 250 ml @ 0 mls/hr Q0M IV 10/14/24 10:45 Amino Acids 0 ml @ 0 mls/hr PER PHARMACY IV 10/15/24 18:45 Cancel Dextrose 50 ml UD IV 10/16/24 09:30 Cancel Polyethylene Glycol 17 gm DAILYPRN PRN GT 10/17/24 16:45 10/19/24 05:54 17 GM Doxycycline Monohydrate 100 mg Q12HR NG 10/18/24 10:00 10/27/24 22:30 100 MG Piperacillin Sod/ Tazobactam Sod 100 ml @ 25 mls/hr Q8HR IV 10/19/24 14:00 10/27/24 22:30 25 MLS/HR Hydrocortisone Sodium Succinate 50 mg Q6HR IV 10/19/24 18:00 10/27/24 17:44 50 MG Vancomycin HCl 0 ml @ 0 mls/hr UD IV 10/19/24 14:00 Cancel Vasopressin 20 units/Sodium Chloride 100 ml @ 9 mls/hr Q11H7M IV 10/19/24 15:45 Amino Acid Protein 30 ml DAILY GT 10/22/24 10:00 10/25/24 09:50 30 ML Fluconazole 100 ml @ 100 mls/hr DAILY IV 10/22/24 14:00 10/27/24 09:20 100 MLS/HR Apixaban 2.5 mg BID PO 10/25/24 10:00 Hold Metoclopramide HCl 5 mg BID IV 10/25/24 10:00 Hold 10/25/24 21:32 5 MG Sodium Chloride 10 ml QSHIFT@10,22 IV 10/26/24 22:00 10/27/24 22:00 10 ML Potassium Chloride/Sodium Chloride 1,000 ml @ 50 mls/hr Q20H IV 10/27/24 06:30 10/27/24 13:17 50 MLS/HR Metoprolol Tartrate 12.5 mg BID PO 10/27/24 13:30 10/27/24 22:30 12.5 MG objective Examination: GENERAL:Normal, LUNGS:Abnormal (diminished on ventillator ), ABDOMEN:Normal, SKIN:Normal, NEURO:Normal laboratory and microbiology Laboratory Tests 10/27/24 19:57 10/27/24 02:30 Test 10/27/24 02:30 Range/Units Serum Glucose 106 74-106 mg/dL Problems(with codes): (1) Shock liver (2) Pneumonia (3) Sepsis, unspecified organism (4) Ventricular fibrillation (5) Cardiac arrest Prognosis Plan 1 unit PRBC today Hold Eliquis IV iron Monitor labs correct coagulopathy Continue CPAP trial Dietary Evaluation Review Comments: 1) TF Jevity 1.2Cal @ 55 ml/hr. x 24hr along with Pro-stat 1 pk daily. Start @ 20ml/hr, increase 10ml/hr Q4H until goal is reached. TF @ goal volume provides 1684 kcal (100% energy needs), 88 gm protein (100% protein needs), 1065 ml free water. 2) Water flush 100ml Q4H if allowed, adjust PRN 3) Advance to cardiac diet as medically feasible 4) Monitor NPO status, lab values, wt trend, I/O Expected Outcomes/Goals: To meet >75% estimated needs within 7 days Lab values to improve Fu 2-3 days Plan discussed with: Patient, Other (ICU Nurse) CANDI BOSS MD Oct 27, 2024 22:52
[2024-10-28] VITALS (109 sets, daily range): BP systolic 84–136; BP diastolic 42–78; PULSE 55–63; RESP 10–36; TEMP 78.1–99.3; O2SAT 99–100
[2024-10-28 03:36] LABS: Hematocrit 31.2 % (36.0-46.0); Hemoglobin 10.4 g/dL (12.2-16.2); Mean Corpuscular Hemoglobin 29.4 pg (28.0-32.0); Mean Corpuscular Volume 88.6 fL (80.0-100.0); Nucleated Red Blood Cells % 1.2 %
[2024-10-28 07:00] LABS: Base Excess -3.4 mmol/L (-2.0-3.0)
[2024-10-28 07:02] LABS: Anisocytosis Moderate
[2024-10-28 08:52] LABS: Base Excess -3.6 mmol/L (-2.0-3.0)
--- NOTE | 2024-10-28 11:21 | DVH ---
CHEST RADIOGRAPH Indication: CHF Technique: Single frontal view of the chest was obtained Comparison: XY CHEST PORTABLE on DOS: 10/27/24 FINDINGS: Lines and Tubes: The endotracheal tube terminates 2.6 cm above the tyler. Right central venous cath eter terminates in the superior cavoatrial junction. AICD/ pacemaker is noted. The enteric tube cours es below the left hemidiaphragm and the tip extends outside the field of view. Lungs: Left basilar opacities. Mild pulmonary vascular congestion. Pleura: No effusion. No pneumothorax. Cardiomediastinal contours: Cardiomegaly. Bones: No acute osseous abnormality. IMPRESSION: 1. Appropriate position of the support lines and tubes. No acute cardiopulmonary disease. 2. Cardiomegaly. 3. Left basilar airspace disease which may reflect atelectasis. Mild pulmonary vascular congestion.
[2024-10-28 11:25] LABS: Albumin 3.3 g/dL (3.2-4.8); Alkaline Phosphatase 88 U/L (46-116); Anion Gap 14 (5-15); BUN/Creatinine Ratio 25.0 (10.0-20.0); Blood Urea Nitrogen 28 mg/dL (9-23); Calcium 8.8 mg/dL (8.7-10.4); Carbon Dioxide 20 mmol/L (20-31); Chloride 110 mmol/L (98-107); Glucose 139 mg/dL (74-106); Magnesium 2.6 mg/dL (1.6-2.6); Potassium 4.9 mmol/L (3.5-5.1); Sodium 144 mmol/L (136-145); Total Protein 5.9 g/dL (5.7-8.2)
[2024-10-28 11:26] LABS: Alanine Aminotransferase 87 U/L (7-40); Bilirubin, Total 1.1 mg/dL (0.2-1.0)
[2024-10-28] MEDS: DEXMEDETOMIDINE HCL IN D5W 100 ML IV SCH (13:45)
--- NOTE | 2024-10-28 13:57 | DVHPN2 ---
Progress Note Date Seen: Oct 28, 2024 Has the PT tested + for MRSA If YES, has PT been informed?: No Medical Necessity Reason Pt with a Central, PICC or Fol: Yes The following are medically ne: PICC Line, Cutler Catheter Reason for cutler catheter: Strict I&O Subjective Review of Systems: Not Done (on mechanical ventillator) Objective vital signs Vital Sign Date Time Temp Pulse Resp B/P (MAP) Pulse Ox O2 Delivery O2 Flow Rate FiO2 10/28/24 13:36 55 22 103/53 (70) 100 30 10/28/24 13:00 99.1 210.4 10/28/24 08:00 Mechanical Ventilator+ Total Intake and Output 10/27/24 10/27/24 10/28/24 15:00 23:00 07:00 Intake Total 600 ml 915 ml 750 ml Output Total 250 ml Balance 600 ml 915 ml 500 ml medications Current Medications Medications Dose Ordered Sig/Liliam Route Start Time Stop Time Status Last Admin Dose Admin Midazolam HCl 50 ml @ 1 mls/hr Q24H IV 10/07/24 04:45 10/21/24 07:28 4 MLS/HR Ondansetron HCl 4 mg Q4HP PRN IV 10/07/24 10:00 Nitroglycerin 0.4 mg Q5MINP PRN SL 10/07/24 10:00 Pantoprazole Sodium 40 mg DAILY IV 10/07/24 10:00 10/28/24 10:04 40 MG Mexiletine HCl 150 mg TID GT 10/08/24 22:00 10/28/24 05:37 150 MG Acetaminophen 500 mg Q6HP PRN PO 10/08/24 22:30 10/19/24 03:18 500 MG Enteral Nutritional Formula 1,000 ml 55ML/HR GT 10/09/24 18:45 10/22/24 18:55 1,000 ML Phenylephrine HCl 80 mg/Sodium Chloride 250 ml @ 7.5 mls/hr Q24H IV 10/10/24 09:30 10/25/24 23:02 7.5 MLS/HR Furosemide 20 mg BIDD IV 10/12/24 18:00 10/27/24 17:44 20 MG Esmolol HCl 250 ml @ 0 mls/hr Q0M IV 10/14/24 10:45 Amino Acids 0 ml @ 0 mls/hr PER PHARMACY IV 10/15/24 18:45 Cancel Dextrose 50 ml UD IV 10/16/24 09:30 Cancel Polyethylene Glycol 17 gm DAILYPRN PRN GT 10/17/24 16:45 10/19/24 05:54 17 GM Doxycycline Monohydrate 100 mg Q12HR NG 10/18/24 10:00 10/28/24 10:04 100 MG Piperacillin Sod/ Tazobactam Sod 100 ml @ 25 mls/hr Q8HR IV 10/19/24 14:00 10/28/24 05:37 25 MLS/HR Hydrocortisone Sodium Succinate 50 mg Q6HR IV 10/19/24 18:00 10/28/24 11:23 50 MG Vancomycin HCl 0 ml @ 0 mls/hr UD IV 10/19/24 14:00 Cancel Vasopressin 20 units/Sodium Chloride 100 ml @ 9 mls/hr Q11H7M IV 10/19/24 15:45 Amino Acid Protein 30 ml DAILY GT 10/22/24 10:00 10/28/24 10:24 30 ML Fluconazole 100 ml @ 100 mls/hr DAILY IV 10/22/24 14:00 10/28/24 10:04 100 MLS/HR Apixaban 2.5 mg BID PO 10/25/24 10:00 Hold Metoclopramide HCl 5 mg BID IV 10/25/24 10:00 Hold 10/25/24 21:32 5 MG Sodium Chloride 10 ml QSHIFT@10,22 IV 10/26/24 22:00 10/28/24 10:04 10 ML Metoprolol Tartrate 12.5 mg BID PO 10/27/24 13:30 10/27/24 22:30 12.5 MG Morphine Sulfate 2 mg Q4HPRN PRN IV 10/28/24 10:30 Examination: GENERAL:Normal, LUNGS:Normal, LUNGS:Abnormal (diminished on vent), CVS:Normal, ABDOMEN:Normal, SKIN:Normal, NEURO:Normal laboratory and microbiology Laboratory Tests 10/28/24 10:00 10/28/24 03:30 Test 10/28/24 10:00 Range/Units Serum Glucose 139 H 74-106 mg/dL Microbiology Date/Time Source Procedure Growth Status 10/20/24 04:00 Sputum Gram Stain - Final Complete 10/20/24 04:00 Respiratory Culture - Final Enterobacter cloacae Yeast, not Ilda albicans Complete 10/20/24 01:03 Urine - [place] Urine Culture - Final Yeast, not Ilda albicans Complete 10/19/24 13:02 Blood Blood Culture - Final NO GROWTH AFTER 5 DAYS OF INCUBATION. Complete 10/07/24 16:50 Nose MRSA Screen - Final Complete Labs and/or images reviewed: Labs reviewed by me, Image(s) reviewed by me Problem List/Assessment/Plan Problem List/Assessment/Plan The patient is status post AICD placement following cardiac arrest with ventricular fibrillation presenting with acute hypoxic respiratory failure and enterobacter pneumonia. They have a history of coronary artery disease and coronary artery bypass grafting, and are being managed for acute and chronic systolic heart failure. The patient is currently experiencing acute hypoxic respiratory failure and is undergoing CPAP trials while off sedation. They have been diagnosed with enterobacter pneumonia and paroxysmal atrial fibrillation, and are being monitored for transaminitis. The patient was previously on a heparin drip, which has been discontinued. Cardiology has recommended keeping the patient off amiodarone due to elevated liver enzymes. The patient is to be started on Eliquis 2.5 mg BID once their INR drops below 2, with the current INR still elevated at 3.37. Esmolol may be used for rate control and arrhythmia management. The patient is currently receiving IV fluids and magnesium supplementation. They have been taken off vasopressin. The patient is on tube feedings, receiving Jevity. Daily spontaneous breathing trials are being conducted to assess the patient's ability to come off the ventilator. There is a possibility of placement in a long-term care facility if the patient remains ventilator-dependent. Cardiac Arrest with Ventricular Fibrillation Assessment: Patient experienced cardiac arrest with ventricular fibrillation, necessitating AICD placement by Dr. Armstrong. Currently off heparin drip. Cardiology recommends avoiding amiodarone due to elevated liver enzymes. Plan: - Continue with [place] tool for cardiac monitoring - Transition to Eliquis 2.5 mg BID once INR is below 2 currently 3.37 - If AFib-RVR develops, start Esmolol for rate control and V-tach prevention - Monitor EKG for AFib - Follow up with cardiology regarding recent rhythm change Acute and Chronic Systolic Heart Failure Assessment: Patient has a history of coronary artery disease and previous CABG. Currently managing acute and chronic systolic heart failure medically. Plan: - Continue IV Lasix 20 mg BID - Continue medical management for heart failure Acute Hypoxic Respiratory Failure Assessment: Patient experiencing acute hypoxic respiratory failure, currently undergoing CPAP trials and off sedation. Possibility of long-term care facility placement if unable to wean from ventilator. Plan: - Continue CPAP trials - Perform daily spontaneous breathing trials - Monitor respiratory status for potential ventilator weaning Transaminitis Assessment: Patient has elevated liver enzymes, impacting medication choices for cardiac management. Plan: - Monitor liver function - Hold off on starting amiodarone Enterobacter Pneumonia Assessment: Patient diagnosed with enterobacter pneumonia. Current status and resolution unclear. Plan: - Continue Zosyn - Reassess for pneumonia resolution Electrolyte Imbalances Assessment: Patient found to be severely hypokalemic with potassium of 2.8. Magnesium slightly low at 1.9. Plan: - Replace potassium - Monitor and correct magnesium levels as needed Severe Anemia Assessment: Patient is severely anemic with hemoglobin of 7. Plan: - Transfused 1 unit of packed red blood cells - Hold anticoagulation - Monitor hemoglobin levels Nutritional Support Assessment: Patient requiring nutritional support while hospitalized. Plan: - Continue tube feedings with Jevity Paroxysmal a fib -DC amiodarone, monitor EKG -start eliquis when INR is below 2 Patient experienced two episodes of ventricular tachycardia (V-tach) yesterday and is undergoing continued CPAP trials today. Ventricular Tachycardia Assessment: Patient had two episodes of ventricular tachycardia (V-tach) yesterday. One episode occurred during a CPAP trial. The patient has an automated implantable cardioverter-defibrillator (AICD) in place, which is capturing. [employer] De[employer]st Dr. Armstrong initiated treatment with metoprolol 12.5 mg BID to manage the arrhythmia. Plan: - Continue metoprolol 12.5 mg PO BID as prescribed by financial project manager - Proceed with continued CPAP trials today - Monitor for further episodes of V-tach - AICD to remain in place for ongoing management - Precedex approved for use if patient experiences agitation Plan discussed with: Patient My Orders My Orders Orders - BRAEDEN [employer]OD [employer] Procedure Category Date Status Time Morphine Sulfate PHA 10/28/24 In Process Injection 10:30 Dexmedetomidine Hcl PHA 10/28/24 In Process In D5w (Precedex) 13:45 Prothrombin Time W/ LAB 10/28/24 Logged INR 13:42 Dietary Evaluation Review Comments: 1) TF Jevity 1.2Cal @ 55 ml/hr. x 24hr along with Pro-stat 1 pk daily. Start @ 20ml/hr, increase 10ml/hr Q4H until goal is reached. TF @ goal volume provides 1684 kcal (100% energy needs), 88 gm protein (100% protein needs), 1065 ml free water. 2) Water flush 100ml Q4H if allowed, adjust PRN 3) Advance to cardiac diet as medically feasible 4) Monitor NPO status, lab values, wt trend, I/O Expected Outcomes/Goals: To meet >75% estimated needs within 7 days Lab values to improve Fu 2-3 days Date of Service: Oct 28, 2024 Billing Provider: CARLOS WHITAKER MD Common Visit Codes: 20200-OWBKRIV INP/OBS CARE (MOD) BRAEDEN UND[employer]OD [employer] Oct 28, 2024 13:57
[2024-10-28] MEDS: MORPHINE SULFATE INJ 2 MG/ml SYRG IV PRN (13:59)
--- NOTE | 2024-10-28 14:25 | DVHPN2 ---
Progress Note - Dictate Date Seen: Oct 28, 2024 Has the PT tested + for MRSA If YES, has PT been informed?: No Medical Necessity Reason Pt with a Central, PICC or Fol: Yes The following are medically ne: PICC Line, Cutler Catheter Reason for cutler catheter: Strict I&O Subjective Patient seen and examined at the bedside within ICU. The patient is in normal sinus rhythm with a heart rate in the 80s. She did have an episode of tachycardia which prompted an order from Dr Armstrong for metoprolol tartrate 12.5mg twice daily and an infusion of magnesium, mag was 2.6 this morning. Eliquis has not been started last INR 2.11. Chart reviewed. Patient's medications, allergies, past medical, surgical, social and family histories were obtained and reviewed as appropriate. vital signs Vital Sign Date Time Temp Pulse Resp B/P (MAP) Pulse Ox O2 Delivery O2 Flow Rate FiO2 10/28/24 14:00 30 10/28/24 14:00 55 10/28/24 14:00 18 100 Mechanical Ventilator+ 10/28/24 13:59 104/56 10/28/24 13:00 99.1 210.4 Total Intake and Output 10/27/24 10/27/24 10/28/24 15:00 23:00 07:00 Intake Total 600 ml 915 ml 775 ml Output Total 250 ml Balance 600 ml 915 ml 525 ml medications Current Medications Medications Dose Ordered Sig/Liliam Route Start Time Stop Time Status Last Admin Dose Admin Midazolam HCl 50 ml @ 1 mls/hr Q24H IV 10/07/24 04:45 10/21/24 07:28 4 MLS/HR Ondansetron HCl 4 mg Q4HP PRN IV 10/07/24 10:00 Nitroglycerin 0.4 mg Q5MINP PRN SL 10/07/24 10:00 Pantoprazole Sodium 40 mg DAILY IV 10/07/24 10:00 10/28/24 10:04 40 MG Mexiletine HCl 150 mg TID GT 10/08/24 22:00 10/28/24 14:00 150 MG Acetaminophen 500 mg Q6HP PRN PO 10/08/24 22:30 10/19/24 03:18 500 MG Enteral Nutritional Formula 1,000 ml 55ML/HR GT 10/09/24 18:45 10/22/24 18:55 1,000 ML Phenylephrine HCl 80 mg/Sodium Chloride 250 ml @ 7.5 mls/hr Q24H IV 10/10/24 09:30 10/25/24 23:02 7.5 MLS/HR Furosemide 20 mg BIDD IV 10/12/24 18:00 10/27/24 17:44 20 MG Esmolol HCl 250 ml @ 0 mls/hr Q0M IV 10/14/24 10:45 Amino Acids 0 ml @ 0 mls/hr PER PHARMACY IV 10/15/24 18:45 Cancel Dextrose 50 ml UD IV 10/16/24 09:30 Cancel Polyethylene Glycol 17 gm DAILYPRN PRN GT 10/17/24 16:45 10/19/24 05:54 17 GM Doxycycline Monohydrate 100 mg Q12HR NG 10/18/24 10:00 10/28/24 10:04 100 MG Piperacillin Sod/ Tazobactam Sod 100 ml @ 25 mls/hr Q8HR IV 10/19/24 14:00 10/28/24 14:09 25 MLS/HR Hydrocortisone Sodium Succinate 50 mg Q6HR IV 10/19/24 18:00 10/28/24 11:23 50 MG Vancomycin HCl 0 ml @ 0 mls/hr UD IV 10/19/24 14:00 Cancel Vasopressin 20 units/Sodium Chloride 100 ml @ 9 mls/hr Q11H7M IV 10/19/24 15:45 Amino Acid Protein 30 ml DAILY GT 10/22/24 10:00 10/28/24 10:24 30 ML Fluconazole 100 ml @ 100 mls/hr DAILY IV 10/22/24 14:00 10/28/24 10:04 100 MLS/HR Apixaban 2.5 mg BID PO 10/25/24 10:00 Hold Metoclopramide HCl 5 mg BID IV 10/25/24 10:00 Hold 10/25/24 21:32 5 MG Sodium Chloride 10 ml QSHIFT@10,22 IV 10/26/24 22:00 10/28/24 10:04 10 ML Metoprolol Tartrate 12.5 mg BID PO 10/27/24 13:30 10/27/24 22:30 12.5 MG Morphine Sulfate 2 mg Q4HPRN PRN IV 10/28/24 10:30 10/28/24 13:59 2 MG objective Heart: S1 and S2 present. The patient is in sinus rhythm. Lungs: Clear to auscultation Abdomen: Benign. Extremities: Distal pulses palpable, 2+. No evidence for peripheral edema laboratory and microbiology Laboratory Tests 10/28/24 10:00 10/28/24 03:30 Test 10/28/24 10:00 Range/Units Serum Glucose 139 H 74-106 mg/dL Assessment/Plan Still intubated and in ICU. Off pressure support. Off sedation, still not regaining higher brain function. Patient is a 54-year-old female who was brought to the hospital for witnessed syncope. She is intubated and is being managed in ICU. Information was obtained by reviewing the chart and communicating with patient's son (over the phone). Family recognized witnessed syncope and started CPR and called EMS. Reportedly, EMS found the patient in ventricular fibrillation and shocked the patient and brought the patient to the hospital. Patient was intubated in emergency room and transferred to ICU. Patient was on amiodarone drip. Later the patient had ventricular tachycardia (Systane). High sensitive troponin had been minimally/flatly elevated. Presentation was not in favor of acute coronary syndrome. Cardiology is involved for cardiac aspects of care. Intubated. Noncommunicative. No JVD. Mucosa pale. No carotid bruit. Scattered rhonchi in the lungs is heard. Cardiac: Regular, no thrill. Systolic murmur 2/6 in apex is heard. Abdomen is soft. No edema in extremities. Past medical history as per son: Congenital heart disease, status post bypass WBC: 14.5 - 11.9 - 18.8 - 20.0 - 21.2 - 14.3 - 10.3 - 8.9 - 9.2 - 11.1 - 12.1 - 10.8 - 12.0 - 9.9 - 15.4 - 14.8 - 12.1 - 10.5 - 5.8 - 5.3 - 4.2 - 5.8 Hemoglobin: 10.1 - 9.6 - 9.2 - 8.8 - 8.7 - 8.0 - 8.3 - 8.5 - 7.8 - 10.2 - 10.7 - 9.9 - 9.7 - 9.3 - 9.3 - 8.6 - 8.1 - 7.4 - 7.5 - 7.4 - 7.5 - 7.2 - 7.7 Creatinine: 0.95 - 0.93 - 0.87 - 0.83 - 0.83 - 0.76 - 0.68 - 0.72 - 0.79 - 0.76 - 0.80 - 0.84 - 0.61 - 0.65 - 0.74 - 0.64 - 0.73 - 0.82 - 0.88 - 1.03 - 0.99 - 0.85 - 0.87 Potassium: 3.4 - 4.0 - 4.6 - 3.5 - 3.3 - 4.1 - 3.7 - 3.2 - 3.7 - 4.0 - 3.2 - 3.4 - 3.9 - 4.2 - 3.3 - 3.8 - 3.6 - 3.4 - 4.2 - 3.8 - 4.5 - 4.1 - 3.5 - 4.2 - 3.3 - 2.6 - 3.5 - 3.8 - 2.4 - 2.9 - 4.6 Magnesium: 2.0 - 1.6 - 2.0 - 3.0 - 1.5 - 1.9 - 2.1 - 1.8 - 2.0 - 1.9 - 1.9 - 2.6 - 2.0 - 1.8 - 1.6 - 2.0 - 2.2 - 1.9 - 2.3 - 2.2 - 2.2 - 2.1 - 2.1 Troponin (high sensitive): 141 - 138 - 117 BNP: 457.16 AST/ALT: 32/11 - 19/13 - 538/168 - 293/152 - 131/130 - 78/94 - 68/74 - 48/57 - 27/38 - 15/23 - 20/18 - 23/17 - 29/16 - 27/13 - 34/17 - 73/49 - 41/43 - 30/47 - 30/42 - 29/42 Digoxin level: 2.83 - 1.25 - 0.98 UDS: non-revealing Chest x-ray revealed: Lines and Tubes: Endotracheal tube tip projects approximately 1.4 cm above the level of the tyler. Enteric catheter courses below the lateral of the diaphragm and terminates beyond the inferior margin of the image. Right internal jugular central venous catheter terminates within the distal superior vena cava. Lungs: Moderate diffuse increased prominence of the pulmonary vasculature without evidence of focal consolidation. Pleura: No effusion. No pneumothorax. Cardiomediastinal contours: Cardiomegaly. Bones: Unremarkable IMPRESSION: 1. Cardiomegaly and diffuse increased prominence of the pulmonary vasculature. 2. Lines and tubes as above. Repeat chest x-ray revealed: IMPRESSION: 1. Endotracheal tube tip 1.6 cm above the tyler; consider 2 cm retraction 2. Mild pulmonary vascular congestion. Moderate cardiomegaly. Repeat chest xry revealed: IMPRESSION: Endotracheal tube tip 1.6 cm above the tyler; consider 2 cm retraction Mild pulmonary vascular congestion. Moderate cardiomegaly. Repeat chest xry revealed: IMPRESSION: 1. Stable cardiomegaly, small left pleural effusion and mild diffuse increased prominence of the pulmonary vasculature. 2. Repositioned endotracheal tube as above. Remaining lines and tubes unchanged. Repeat chest xry revealed: IMPRESSION: 1. Cardiomegaly, stable diffuse increased prominence of the pulmonary vasculature and small bilateral pleural effusions. 2. Slight interval advancement of endotracheal tube as above. Remaining lines and tubes unchanged. Repeat chest xry revealed: IMPRESSION: 1. Slight interval decrease in diffuse increased prominence of the pulmonary vasculature. 2. Stable cardiomegaly and small left pleural effusion. 3. Lines and tubes unchanged. Repeat chest xry revealed: IMPRESSION: 1. Cardiomegaly and small left pleural effusion. 2. Lines and tubes unchanged. Repeat chest xry revealed: IMPRESSION: Stable lines and tubes. Similar lung aeration. Repeat chest xry revealed: IMPRESSION: Cardiomegaly and small left pleural effusion. Lines and tubes unchanged. Repeat chest xry revealed: IMPRESSION: Placement of a cardiac pacer, no pneumothorax is seen. Stable lines and tubes. Repeat chest xry revealed: IMPRESSION: 1. Worsening mixed opacities in the right lower lung. No other significant change from the previous study. Stable support devices. Repeat chest xry revealed: Heart is prominent in size with postsurgical changes, median sternotomy wires, and a single lead left cardiac defibrillator. Support lines and tubes appear unchanged in satisfactory in position. No sizable effusion or pneumothorax. Mild pulmonary vascular congestion. No significant interval change. Repeat chest xry revealed: IMPRESSION: 1. No significant change from the previous study. Stable support devices. Similar findings of heart failure including left pleural effusion. Repeat chest xry revealed: IMPRESSION: 1. No significant change from the previous study. Stable support devices. Similar findings of heart failure including trace left pleural effusion. KUB revealed: IMPRESSION: Nonobstructive bowel gas pattern. Nasogastric tube tip in the stomach. Large stool burden. Left upper ext arterial duplex: IMPRESSION: No hemodynamically significant stenosis based on peak systolic velocity criteria. Left lower ext arterial duplex: IMPRESSION: There is no evidence for peripheral vascular insufficiency in the left lower extremity. No significant focal stenosis is identified. Liver Ultrasound revealed: Hepatic steatosis. Hepatomegaly. Cholelithiasis. CT of the head revealed: IMPRESSION: No acute intracranial abnormality. Repeat CT of head revealed: IMPRESSION: No acute intracranial abnormality. Echocardiogram reported: lvef 15-20% dilated LV severe global dysfunction mild RV dysfunction biatrial enlargement mild moderate MAC, moderate mitral regurg mild to moderate aortic regug (images of echo reviewed and questioned presence of mitral ring and also some component (moderate of Mitral stenosis) EKG revealed sinus rhythm Telemetry revealed occasions of atrial fibrillation. There was occasional sustained ventricular tachycardia. EMS tele monitor revealed ventricular fibrillation for which the patient was shocked. Has remained sinus rhythm. Later with A-fib with MVR LHC revealed: Patent RICHMOND to LAD; Patent SVG to obtuse marginal; LVEF of 20% with increased EDP; Proximal disease in LAD/LCX RICHIE was performed: Consistent with severely reduced LVEF. Consistent with previously implanted Mitral ring, Up to moderate Mitral stenosis/Mitral Regurgitation and also Moderate Aortic insufficiency. Patient is a 54-year-old female who presented with witnessed syncope. She was found to have ventricular fibrillation for which was shocked. Later had repeated episode of sustained ventricular tachycardia. Patient has been kept in ICU. Does have baseline history of coronary artery disease for which has had bypass surgery. Left heart catheterization was performed which revealed patent RICHMOND and patent SVG. ACS is not considered at this point. It is of note that the patient's echocardiogram reveals significantly use systolic function. Valvular heart disease is considered. Findings are in favor of previously implanted mitral ring. By reviewing the echo images, component of up to moderate mitral stenosis could not be ruled out. LHC was performed that ruled out any active specific ischemia as an etiology for presentation. Is off Amiodarone for abnormal LFT. Being followed by Nephrology / Pulmonary / Neurology / GI ID. Tele has remained sinus rhythm. Had episode of a-fib with RVR. Was loaded with Digoxin. Dig level was performed at wrong timing (only 5 hours after the last Dig given). Dig toxicity is not considered. Patient is back to normal sinus rhythm. Has good kidney function. Repeat Dig level is acceptable level. s/p ICD implantation by EP Cardiac suggestion for management: This is a 54-year old female who initially presented 10/07/2024 due to witnessed syncope. As per records and having spoke with family members (son/father), patient had collapsed in the kitchen as witnessed by nearby family members whom had initiated CPR. EMS had been called for further medical attention and upon their arrival reports indicate the patient had been found in ventricular fibrillation for which she was subsequently shocked by EMS and upon rhythm strip analysis of the event, rhythm itself does reveal evidence for what appears to be ventricular fibrillation requiring shock x 1 which upon ED arrival 12-lead electrocardiogram had revealed sinus rhythm at 84bpm, QRS of 96ms with a QTC interval of 495 ms. Upon ED arrival patient was intubated and initiated on Amiodarone infusion for rhythm management. Patient was later admitted to the ICU for close observation/management and had been noted to experience episodes of ventricular tachycardia that had degenerated into ventricular fibrillation resulting in cardiac arrest requiring initiation of CPR/ACLS protocol which the patient was subsequently shocked x 1 resulting in ROSC. Patient did undergo subsequent cardiac catheterization 10/08/2024 by Interventional Cardiology services revealing patent RICHMOND to LAD, patent SVG to obtuse marginal, proximal disease involving LAD and LCX. Echocardiogram 10/07/2024 had revealed a severely reduced LVEF function of 15-20%, dilated LV with severe global dysfunction, biatrial enlargement, moderate mitral insufficiency with mild to moderate aortic insufficiency. TTE itself had questioned potential presence of mitral ring and potential underlying component of mitral stenosis which subsequent RICHIE 10/08/2024 had revealed evidence of mitral ring with up to moderate mitral stenosis/mitral insufficiency in addition to moderate aortic insufficiency. Throughout course of present admission, patient has been furthermore noted to experience episodes of paroxysmal atrial fibrillation for which she has been maintained on anticoagulation for CVA prophylaxis. As the patient presented and was found to experience episodes of ventricular fibrillation requiring a total of 2 shocks, Electrophysiology services were later involved by Interventional Cardiology request to evaluate the patient for potential AICD implantation. Reported past medical history includes congenital heart disease, coronary artery disease status post previous bypass surgery Echocardiogram: (10/07/2024) revealed lvef 15-20% dilated LV severe global dysfunction mild RV dysfunction biatrial enlargement mild moderate MAC, moderate mitral regurg mild to moderate aortic regug (images of echo reviewed and questioned presence of mitral ring and also some component (moderate of Mitral stenosis) Cardiac Catheterization: (10/08/2024) revealed Patent RICHMOND to LAD; Patent SVG to obtuse marginal; LVEF of 20% with increased EDP; Proximal disease in LAD/LCX Transesophageal Echocardiogram (10/08/2024) revealed was performed: Consistent with severely reduced LVEF. Consistent with previously implanted Mitral ring, Up to moderate Mitral stenosis/Mitral Regurgitation and also Moderate Aortic insufficiency. VHD, s/p Mitral ring Abnormal LFT, resolved s/p ICD (Biotronik) implantation by EP (Dr Armstrong) Syncope, witnessed Cardiac arrest, status post ROSC Ventricular fibrillation, requiring shock x 2 Ventricular tachycardia with degeneration to ventricular fibrillation Systolic heart failure, severely reduced LV function of 15-20% Paroxysmal atrial fibrillation, currently sinus rhythm Coronary artery disease, s/p previous 2-V CABG Valvular heart disease, s/p previous mitral ring Beta-hemolytic group B streptococcus Full anticoagulation (a-fib with high CHADS-Vasc score). s/p ICD implantation. As per oral communication by Dr Armstrong (EP), we can change the A/C to Eliquis Off Amio drip (worsened LFT) (personally discussed with EP: Dr Armstrong who advised to stop / not to restart Amiodarone) On Mexiletine If need for pressure support: use Phenyl Ephrine / vasopressin, keep MAP above 65 (for now off pressure support and tolerating) May consider Esmolol for PVC/Vtach s/p ICD (Biotronik) implantation by EP Off warfarin: Eliquis: 2.5 mg BID (only after INR is below 2.0) Proceed with close rate and rhythm surveillance Proceed with close hemodynamic surveillance Proceed with optimized blood pressure control Transfuse to sustain HGB level above 7.0 Sustain Magnesium level greater than 2.0 Sustain Potassium level greater than 4.0 Follow up renal function and electrolytes Management of ongoing concurrent medical conditions as per primary team Management of beta-hemolytic group B strep as per primary team/ID Management comorbidities as per primary team Management in the ICU Follow up cassandra consultant recommendations Will proceed to follow from an EP perspective Further recommendations per clinical progression All available diagnostic labs, EKG's, and images were personally reviewed Patient's status, findings, and plan of care was reviewed and discussed with supervising physician Dr. Armstrong, who is in agreement with current plan of care. Plan of care discussed with and agreed upon by family / primary RN Prognosis: Guarded Thank you for allowing me to participate in the care of this patient. Further recommendations based on patients clinical course and progression, primary attending, and other consultants. Will continue to follow with primary attending. If you have any questions or concerns, please do not hesitate to contact me. A total of 75 minutes was spent reviewing the patient record, examining the patient, making a diagnostic and therapeutic plan, discussing this plan with medical personnel, following up on diagnostic studies and following the patient for clinical stability excluding any and all procedures. At least 50% of this time was spent in direct, [id number] contact. Dietary Evaluation Review Comments: 1) TF Jevity 1.2Cal @ 55 ml/hr. x 24hr along with Pro-stat 1 pk daily. Start @ 20ml/hr, increase 10ml/hr Q4H until goal is reached. TF @ goal volume provides 1684 kcal (100% energy needs), 88 gm protein (100% protein needs), 1065 ml free water. 2) Water flush 100ml Q4H if allowed, adjust PRN 3) Advance to cardiac diet as medically feasible 4) Monitor NPO status, lab values, wt trend, I/O Expected Outcomes/Goals: To meet >75% estimated needs within 7 days Lab values to improve Fu 2-3 days Plan discussed with: Other (Primary RN) PENNY AVILA CLAY ROASTER Oct 28, 2024 14:25
[2024-10-28 15:10] LABS: INR 3.37 (0.9-1.15); Prothrombin Time 31.7 sec (9.3-11.8)
--- NOTE | 2024-10-28 21:34 | DVHPN2 ---
Progress Note - Dictate Date Seen: Oct 28, 2024 Has the PT tested + for MRSA If YES, has PT been informed?: No Medical Necessity Reason Pt with a Central, PICC or Fol: Yes The following are medically ne: PICC Line, Cutler Catheter Reason for cutler catheter: Strict I&O Subjective Patient undergoing CPAP trial Tube feedings on hold One loose liquid BM today Patient has received total of 3 units PRBC, repeat hemoglobin today is over 10 No active GI bleeding reported Liver enzymes have normalized vital signs Vital Sign Date Time Temp Pulse Resp B/P (MAP) Pulse Ox O2 Delivery O2 Flow Rate FiO2 10/28/24 21:00 98.8 55 18 107/56 (73) 100 209.8 10/28/24 20:37 30 10/28/24 20:00 Mechanical Ventilator+ Total Intake and Output 10/27/24 10/27/24 10/28/24 15:00 23:00 07:00 Intake Total 600 ml 915 ml 775 ml Output Total 250 ml Balance 600 ml 915 ml 525 ml medications Current Medications Medications Dose Ordered Sig/Liliam Route Start Time Stop Time Status Last Admin Dose Admin Midazolam HCl 50 ml @ 1 mls/hr Q24H IV 10/07/24 04:45 10/21/24 07:28 4 MLS/HR Ondansetron HCl 4 mg Q4HP PRN IV 10/07/24 10:00 Nitroglycerin 0.4 mg Q5MINP PRN SL 10/07/24 10:00 Pantoprazole Sodium 40 mg DAILY IV 10/07/24 10:00 10/28/24 10:04 40 MG Mexiletine HCl 150 mg TID GT 10/08/24 22:00 10/28/24 14:00 150 MG Acetaminophen 500 mg Q6HP PRN PO 10/08/24 22:30 10/19/24 03:18 500 MG Enteral Nutritional Formula 1,000 ml 55ML/HR GT 10/09/24 18:45 10/22/24 18:55 1,000 ML Phenylephrine HCl 80 mg/Sodium Chloride 250 ml @ 7.5 mls/hr Q24H IV 10/10/24 09:30 10/25/24 23:02 7.5 MLS/HR Furosemide 20 mg BIDD IV 10/12/24 18:00 10/28/24 18:19 20 MG Esmolol HCl 250 ml @ 0 mls/hr Q0M IV 10/14/24 10:45 Amino Acids 0 ml @ 0 mls/hr PER PHARMACY IV 10/15/24 18:45 Cancel Dextrose 50 ml UD IV 10/16/24 09:30 Cancel Polyethylene Glycol 17 gm DAILYPRN PRN GT 10/17/24 16:45 10/19/24 05:54 17 GM Doxycycline Monohydrate 100 mg Q12HR NG 10/18/24 10:00 10/28/24 10:04 100 MG Piperacillin Sod/ Tazobactam Sod 100 ml @ 25 mls/hr Q8HR IV 10/19/24 14:00 10/28/24 14:09 25 MLS/HR Hydrocortisone Sodium Succinate 50 mg Q6HR IV 10/19/24 18:00 10/28/24 18:18 50 MG Vancomycin HCl 0 ml @ 0 mls/hr UD IV 10/19/24 14:00 Cancel Vasopressin 20 units/Sodium Chloride 100 ml @ 9 mls/hr Q11H7M IV 10/19/24 15:45 Amino Acid Protein 30 ml DAILY GT 10/22/24 10:00 10/28/24 10:24 30 ML Fluconazole 100 ml @ 100 mls/hr DAILY IV 10/22/24 14:00 10/28/24 10:04 100 MLS/HR Apixaban 2.5 mg BID PO 10/25/24 10:00 Hold Metoclopramide HCl 5 mg BID IV 10/25/24 10:00 Hold 10/25/24 21:32 5 MG Sodium Chloride 10 ml QSHIFT@10,22 IV 10/26/24 22:00 10/28/24 10:04 10 ML Morphine Sulfate 2 mg Q4HPRN PRN IV 10/28/24 10:30 10/28/24 13:59 2 MG Metoprolol Tartrate 12.5 mg BID PO 10/28/24 22:00 objective Examination: GENERAL:Normal, LUNGS:Abnormal (diminished on ventillator ), ABDOMEN:Normal, SKIN:Normal, NEURO:Normal laboratory and microbiology Laboratory Tests 10/28/24 10:00 10/28/24 03:30 Test 10/28/24 10:00 Range/Units Serum Glucose 139 H 74-106 mg/dL CT SCAN IMPRESSION: 1. Appropriate position of the support lines and tubes. No acute cardiopulmonary disease. 2. Cardiomegaly. 3. Left basilar airspace disease which may reflect atelectasis. Mild pulmonary vascular congestion. Problems(with codes): (1) Shock liver (2) Pneumonia (3) Sepsis, unspecified organism (4) Ventricular fibrillation (5) Cardiac arrest Prognosis Plan Continue supportive care Patient's ID was removed today Plan was for extubation possibly today Either resume tube feedings or proceed swallow eval after extubation GI Services will follow Dietary Evaluation Review Comments: 1) TF Jevity 1.2Cal @ 55 ml/hr. x 24hr along with Pro-stat 1 pk daily. Start @ 20ml/hr, increase 10ml/hr Q4H until goal is reached. TF @ goal volume provides 1684 kcal (100% energy needs), 88 gm protein (100% protein needs), 1065 ml free water. 2) Water flush 100ml Q4H if allowed, adjust PRN 3) Advance to cardiac diet as medically feasible 4) Monitor NPO status, lab values, wt trend, I/O Expected Outcomes/Goals: To meet >75% estimated needs within 7 days Lab values to improve Fu 2-3 days Plan discussed with: Patient CANDI BOSS MD Oct 28, 2024 21:34
[2024-10-28] MEDS: METOPROLOL TARTRATE 25 MG TAB PO SCH (22:00)
--- NOTE | 2024-10-28 23:23 | DVHPN2 ---
Progress Note - Dictate Date Seen: Oct 28, 2024 Has the PT tested + for MRSA If YES, has PT been informed?: No Medical Necessity Reason Pt with a Central, PICC or Fol: Yes The following are medically ne: PICC Line, Cutler Catheter Reason for cutler catheter: Strict I&O Subjective Patient is seen and examined at bedside Intubated on mechanical ventilator. Overnight events reviewed. vital signs Vital Sign Date Time Temp Pulse Resp B/P (MAP) Pulse Ox O2 Delivery O2 Flow Rate FiO2 10/28/24 23:00 99.1 55 19 100/48 (65) 100 99.1 10/28/24 22:42 30 10/28/24 22:00 Mechanical Ventilator+ Total Intake and Output 10/27/24 10/27/24 10/28/24 15:00 23:00 07:00 Intake Total 600 ml 915 ml 775 ml Output Total 250 ml Balance 600 ml 915 ml 525 ml medications Current Medications Medications Dose Ordered Sig/Liliam Route Start Time Stop Time Status Last Admin Dose Admin Midazolam HCl 50 ml @ 1 mls/hr Q24H IV 10/07/24 04:45 10/21/24 07:28 4 MLS/HR Ondansetron HCl 4 mg Q4HP PRN IV 10/07/24 10:00 Nitroglycerin 0.4 mg Q5MINP PRN SL 10/07/24 10:00 Pantoprazole Sodium 40 mg DAILY IV 10/07/24 10:00 10/28/24 10:04 40 MG Mexiletine HCl 150 mg TID GT 10/08/24 22:00 10/28/24 21:47 150 MG Acetaminophen 500 mg Q6HP PRN PO 10/08/24 22:30 10/19/24 03:18 500 MG Enteral Nutritional Formula 1,000 ml 55ML/HR GT 10/09/24 18:45 10/22/24 18:55 1,000 ML Phenylephrine HCl 80 mg/Sodium Chloride 250 ml @ 7.5 mls/hr Q24H IV 10/10/24 09:30 10/25/24 23:02 7.5 MLS/HR Furosemide 20 mg BIDD IV 10/12/24 18:00 10/28/24 18:19 20 MG Esmolol HCl 250 ml @ 0 mls/hr Q0M IV 10/14/24 10:45 Amino Acids 0 ml @ 0 mls/hr PER PHARMACY IV 10/15/24 18:45 Cancel Dextrose 50 ml UD IV 10/16/24 09:30 Cancel Polyethylene Glycol 17 gm DAILYPRN PRN GT 10/17/24 16:45 10/19/24 05:54 17 GM Doxycycline Monohydrate 100 mg Q12HR NG 10/18/24 10:00 10/28/24 21:47 100 MG Piperacillin Sod/ Tazobactam Sod 100 ml @ 25 mls/hr Q8HR IV 10/19/24 14:00 10/28/24 21:47 25 MLS/HR Hydrocortisone Sodium Succinate 50 mg Q6HR IV 10/19/24 18:00 10/28/24 18:18 50 MG Vancomycin HCl 0 ml @ 0 mls/hr UD IV 10/19/24 14:00 Cancel Vasopressin 20 units/Sodium Chloride 100 ml @ 9 mls/hr Q11H7M IV 10/19/24 15:45 Amino Acid Protein 30 ml DAILY GT 10/22/24 10:00 10/28/24 10:24 30 ML Fluconazole 100 ml @ 100 mls/hr DAILY IV 10/22/24 14:00 10/28/24 10:04 100 MLS/HR Apixaban 2.5 mg BID PO 10/25/24 10:00 Hold Metoclopramide HCl 5 mg BID IV 10/25/24 10:00 Hold 10/25/24 21:32 5 MG Sodium Chloride 10 ml QSHIFT@10,22 IV 10/26/24 22:00 10/28/24 21:47 10 ML Morphine Sulfate 2 mg Q4HPRN PRN IV 10/28/24 10:30 10/28/24 13:59 2 MG Metoprolol Tartrate 12.5 mg BID PO 10/28/24 22:00 objective Gen.: Patient lying in bed in medical ICU. Intubated on mechanical ventilator. Head: Normocephalic, atraumatic. Eyes: PERRLA. Ears: Normal external anatomy. Throat: Endotracheal tube and orogastric tube in place. Neck: Supple, trachea midline. Chest: Transmitted breath sounds bilaterally. Decreased air entry bilaterally. No wheezing. Bibasilar crackles. Cardiovascular: Positive S1, positive S2. Regular rate and rhythm. Abdomen: Positive bowel sounds in all 4 quadrants. Soft, nontender, nondistended. : Cutler in place. Normal external genitalia. Rectal: Deferred. Skin: Warm, dry. Intact. Extremities: 2+ radial pulses bilaterally. No lower extremity edema. Neuro: Off sedation laboratory and microbiology Laboratory Tests 10/28/24 10:00 10/28/24 03:30 Test 10/28/24 10:00 Range/Units Serum Glucose 139 H 74-106 mg/dL Assessment/Plan Impression: Acute hypoxic respiratory failure On mechanical ventilator s/p cardiac arrest Ventricular tachycardia CPR <5 min Elevated troponin Atelectasis Events: Pt seen and examined in ICU Remains off sedation, awaiting for mentation to improve CPAP with PS 8, PEEP of 5, FiO2 30% - patient tolerating Continue daily CPAP trials. Neurology recs appreciated. Pt noted to have episodes of tachycardia Cardiology recommendations appreciated. ABG notable for alkalemia Hemoglobin trended up to 10.4 g/dL S/p PRBC transfusion yesterday. Remains off pressors Hemodynamically stable Continue antibiotics Continue antifungal Monitor blood pressure Follow up Cardiology recommendations Protonix for GI ppx Clinimix for nutritional support Discuss goals of care with family - LTAC evaluation vs. trach/PEG vs. compassionate extubation. Labs and imaging reviewed. Plan: s/p intubation on mechanical ventilator. AC mode with RR 18, VT 450, PEEP 5, FiO2 30% Titrate FIO2 to keep O2 saturation above 90%. VAP bundle. Daily ABG and CXR while intubated Off sedation Pressors as necessary for hemodynamic support. Titrate to keep MAP greater than 65 mmHg. Patient is s/p pacemaker Cardiology recs appreciated. Continue antibiotics. F/u cultures. Continue antifungal IV steroids Accu-Cheks, ISS PRN. Monitor labs Monitor renal function Monitor electrolytes. Supplement as necessary. Monitor ins and outs. Maintain euvolemia F/u Cardiology recs. GI/DVT prophylaxis. SBT/CORINE Discuss goals of care with family- LTAC evaluation vs. trach/PEG vs. compassionate extubation. Prognosis: Poor given patient's multiple co-morbidities. Condition: Critical Rest of plan per hospitalist and other consultants. A total of 35 minutes of critical care time was spent reviewing the patient record, examining the patient, making a diagnostic and therapeutic plan, discussing this plan with the medical personnel, following up on diagnostic studies and following the patient for clinical stability excluding any and all procedures. At least 50% of this time was spent in direct, [id number]-[id number]-drep contact. Thank you, LATEX CASTER Jason, for allowing me to participate in this patient's care. Further recommendations will depend on the patient's clinical course. Please do not hesitate to contact me if you have any questions or concerns. This medical document was created using an electronic medical record system with iXpert dictation system. Although these documentations are being carefully reviewed, there may still be some phonetic and typographical changes. The errors are purely typographical, due to imperfection on the software program, and do not reflect any compromise in the patient's medical care. Dietary Evaluation Review Comments: 1) TF Jevity 1.2Cal @ 55 ml/hr. x 24hr along with Pro-stat 1 pk daily. Start @ 20ml/hr, increase 10ml/hr Q4H until goal is reached. TF @ goal volume provides 1684 kcal (100% energy needs), 88 gm protein (100% protein needs), 1065 ml free water. 2) Water flush 100ml Q4H if allowed, adjust PRN 3) Advance to cardiac diet as medically feasible 4) Monitor NPO status, lab values, wt trend, I/O Expected Outcomes/Goals: To meet >75% estimated needs within 7 days Lab values to improve Fu 2-3 days Plan discussed with: Other (CEE Olsen) Critical Care Time(min): 35 KENNY FROST MD Oct 28, 2024 23:23
[2024-10-29] VITALS (102 sets, daily range): BP systolic 99–124; BP diastolic 48–68; PULSE 55–100; RESP 13–30; TEMP 84.4–100.2; O2SAT 98–100
--- NOTE | 2024-10-29 05:57 | DVH ---
CHEST RADIOGRAPH Indication: CHF Technique: Single frontal view of the chest was obtained COMPARISON: XY CHEST PORTABLE on DOS: 10/28/24, XY CHEST PORTABLE on DOS: 10/27/24, XY CHEST PORTABLE o n DOS: 10/26/24, XY CHEST PORTABLE on DOS: 10/25/24, XY CHEST PORTABLE on DOS: 10/24/24 FINDINGS: Lines and Tubes: Unchanged. Left anterior chest wall cardiac pacing device. Lungs: Clear Pleura: No effusion. No pneumothorax. Cardiomediastinal contours: Cardiomegaly. Bones: Unremarkable IMPRESSION: 1. Cardiomegaly. 2. Lines and tubes unchanged.
--- NOTE | 2024-10-29 09:08 | ECG ---
[facility] Test Date: 2024-10-27 Test Time: 11:26:07 Pat Name: CLAIRE OLIVO Department: ICU Room: [address] [place] [address] A Gender: F Licensing Registration Examiner: PADMA : [id number] Requested By: FREDERIC ACOSTA Order Number: [id number] Reading MD: Marito Skelton Measurements Intervals [place] Rate: 100 P: 0 MN: 0 QRS: 203 QRSD: 165 T: 56 QT: 417 QTc: 538 Interpretive Statements Junctional tachycardia Nonspecific intraventricular conduction delay Electronically Signed On 11-01-2024 14:29:45 PDT by Marito Skelton Please click the below link to view image of tracing.
[2024-10-29 09:33] LABS: Anion Gap 16 (5-15); Carbon Dioxide 22 mmol/L (20-31)
[2024-10-29 09:34] LABS: Calcium 8.8 mg/dL (8.7-10.4); Hematocrit 30.7 % (36.0-46.0); Hemoglobin 10.0 g/dL (12.2-16.2); Mean Corpuscular Hemoglobin 28.9 pg (28.0-32.0); Mean Corpuscular Volume 89.2 fL (80.0-100.0); Nucleated Red Blood Cells % 2.4 %
[2024-10-29 09:38] LABS: BUN/Creatinine Ratio 29.6 (10.0-20.0)
[2024-10-29 09:39] LABS: Blood Urea Nitrogen 34 mg/dL (9-23); Chloride 109 mmol/L (98-107); Glucose 138 mg/dL (74-106); Magnesium 2.3 mg/dL (1.6-2.6); Potassium 3.4 mmol/L (3.5-5.1); Sodium 147 mmol/L (136-145)
[2024-10-29 09:49] LABS: INR 2.9 (0.9-1.15); Partial Thromboplastin Time 32.5 SEC (24.5-34.5); Prothrombin Time 27.7 sec (9.3-11.8)
--- NOTE | 2024-10-29 11:00 | DVHPN2 ---
Progress Note Date Seen: Oct 29, 2024 Resident Creating Document: ETHAN SWAN RESIDENT Has the PT tested + for MRSA If YES, has PT been informed?: No Medical Necessity Reason Pt with a Central, PICC or Fol: Yes The following are medically ne: PICC Line, Cutler Catheter Reason for cutler catheter: Strict I&O Subjective Review of Systems Patient seen and examined at bedside CPAP trial, TF held Three BM today, slowly forming Stable H&H, however overnight T-max 100.2 No active GI bleeding, slightly up trending LFTs Objective vital signs Vital Sign Date Time Temp Pulse Resp B/P (MAP) Pulse Ox O2 Delivery O2 Flow Rate FiO2 10/29/24 10:09 55 28 114/60 (78) 100 30 10/29/24 10:00 100.0 212.0 10/29/24 09:44 Mechanical Ventilator+ Total Intake and Output 10/28/24 10/28/24 10/29/24 15:00 23:00 07:00 Intake Total 100 ml 415 ml 223 ml Output Total 200 ml 800 ml Balance 100 ml 215 ml -577 ml medications Current Medications Medications Dose Ordered Sig/Liliam Route Start Time Stop Time Status Last Admin Dose Admin Midazolam HCl 50 ml @ 1 mls/hr Q24H IV 10/07/24 04:45 10/21/24 07:28 4 MLS/HR Ondansetron HCl 4 mg Q4HP PRN IV 10/07/24 10:00 Nitroglycerin 0.4 mg Q5MINP PRN SL 10/07/24 10:00 Pantoprazole Sodium 40 mg DAILY IV 10/07/24 10:00 10/29/24 08:17 40 MG Mexiletine HCl 150 mg TID GT 10/08/24 22:00 10/29/24 05:53 150 MG Acetaminophen 500 mg Q6HP PRN PO 10/08/24 22:30 10/19/24 03:18 500 MG Enteral Nutritional Formula 1,000 ml 55ML/HR GT 10/09/24 18:45 10/22/24 18:55 1,000 ML Phenylephrine HCl 80 mg/Sodium Chloride 250 ml @ 7.5 mls/hr Q24H IV 10/10/24 09:30 10/25/24 23:02 7.5 MLS/HR Furosemide 20 mg BIDD IV 10/12/24 18:00 10/29/24 05:53 20 MG Esmolol HCl 250 ml @ 0 mls/hr Q0M IV 10/14/24 10:45 Amino Acids 0 ml @ 0 mls/hr PER PHARMACY IV 10/15/24 18:45 Cancel Dextrose 50 ml UD IV 10/16/24 09:30 Cancel Polyethylene Glycol 17 gm DAILYPRN PRN GT 10/17/24 16:45 10/19/24 05:54 17 GM Doxycycline Monohydrate 100 mg Q12HR NG 10/18/24 10:00 10/29/24 08:18 100 MG Piperacillin Sod/ Tazobactam Sod 100 ml @ 25 mls/hr Q8HR IV 10/19/24 14:00 10/29/24 05:51 25 MLS/HR Hydrocortisone Sodium Succinate 50 mg Q6HR IV 10/19/24 18:00 10/29/24 05:52 50 MG Vancomycin HCl 0 ml @ 0 mls/hr UD IV 10/19/24 14:00 Cancel Vasopressin 20 units/Sodium Chloride 100 ml @ 9 mls/hr Q11H7M IV 10/19/24 15:45 Amino Acid Protein 30 ml DAILY GT 10/22/24 10:00 10/28/24 10:24 30 ML Fluconazole 100 ml @ 100 mls/hr DAILY IV 10/22/24 14:00 10/29/24 08:17 100 MLS/HR Apixaban 2.5 mg BID PO 10/25/24 10:00 Hold Metoclopramide HCl 5 mg BID IV 10/25/24 10:00 Hold 10/25/24 21:32 5 MG Sodium Chloride 10 ml QSHIFT@10,22 IV 10/26/24 22:00 10/29/24 08:18 10 ML Morphine Sulfate 2 mg Q4HPRN PRN IV 10/28/24 10:30 10/28/24 13:59 2 MG Metoprolol Tartrate 12.5 mg BID PO 10/28/24 22:00 Examination General Appearance: Sedated, intubated on mechanical ventilation Head Exam: Normal inspection. Constricted equal and reactive pupils Neck Exam: Normal inspection. Non-tender. Normal alignment Pulmonary/Respiratory: Chest non-tender. Trace crackles Peripheral Pulses 2+ Pedal (R). 2+ Pedal (L) Abdominal Exam: Normal bowel sounds. Soft. normal abdomen, no visible veins, No hepatospenomegaly. No masses Skin Exam: Normal inspection. Normal color. Warm. Dry laboratory and microbiology Laboratory Tests 10/29/24 08:23 Test 10/29/24 08:23 Range/Units Serum Glucose 138 H 74-106 mg/dL Microbiology Date/Time Source Procedure Growth Status 10/20/24 04:00 Sputum Gram Stain - Final Complete 10/20/24 04:00 Respiratory Culture - Final Enterobacter cloacae Yeast, not Ilda albicans Complete 10/20/24 01:03 Urine - Cut[place] Urine Culture - Final Yeast, not Ilda albicans Complete 10/19/24 13:02 Blood Blood Culture - Final NO GROWTH AFTER 5 DAYS OF INCUBATION. Complete 10/07/24 16:50 Nose MRSA Screen - Final Complete Labs and/or images reviewed: Labs reviewed by me, Image(s) reviewed by me Problem List/Assessment/Plan Problem List/Assessment/Plan Ventricular fibrillation S/p cardiopulmonary arrest with shock Heart failure with reduced ejection fraction 15-20% Metabolic versus hypoxic encephalopathy Acute hepatocellular injury likely shock liver Cholelithiasis without acute inflammation Nonalcoholic fatty liver disease with steatohepatitis Community-acquired pneumonia growing Enterobacter Plan: Liver function tests have up trended slightly, we will follow labs tomorrow Hemoglobin 10, transfuse if HB 7 or less Continue tube feedings Serum ferritin, JAIDEN CPAP trial again tomorrow Swallow eval after extubation Discontinued metoclopramide to 5 mg IV b.i.d. Thank you so much for the opportunity to consult on your patient. GI team will follow the patient. In case of any questions or concerns please feel free to reach out. Plan discussed with Dr. Anglin Plan discussed with: Patient, Other (RN) My Orders My Orders Orders - ETHAN SWAN RESIDENT Procedure Category Date Status Time Hepatic Panel LAB 10/29/24 Transmitted 10:58 Dietary Evaluation Review Comments: 1) TF Jevity 1.2Cal @ 55 ml/hr. x 24hr along with Pro-stat 1 pk daily. Start @ 20ml/hr, increase 10ml/hr Q4H until goal is reached. TF @ goal volume provides 1684 kcal (100% energy needs), 88 gm protein (100% protein needs), 1065 ml free water. 2) Water flush 100ml Q4H if allowed, adjust PRN 3) Advance to cardiac diet as medically feasible 4) Monitor NPO status, lab values, wt trend, I/O Expected Outcomes/Goals: To meet >75% estimated needs within 7 days Lab values to improve Fu 2-3 days ETHAN SWAN RESIDENT Oct 29, 2024 11:00
[2024-10-29 11:23] LABS: Alkaline Phosphatase 115.0 U/L (46-116); Bilirubin, Total 1.2 mg/dL (0.2-1.0); Total Protein 5.7 g/dL (5.7-8.2)
[2024-10-29 11:25] LABS: Alanine Aminotransferase 478.0 U/L (7-40); Albumin 3.2 g/dL (3.2-4.8); Bilirubin, Direct 0.6 mg/dL (<0.3)
--- NOTE | 2024-10-29 12:00 | DVHPN2 ---
Progress Note - Dictate Date Seen: Oct 29, 2024 Has the PT tested + for MRSA If YES, has PT been informed?: No Medical Necessity Reason Pt with a Central, PICC or Fol: Yes The following are medically ne: PICC Line, Cutler Catheter Reason for cutler catheter: Strict I&O vital signs Vital Sign Date Time Temp Pulse Resp B/P (MAP) Pulse Ox O2 Delivery O2 Flow Rate FiO2 10/29/24 11:50 55 10/29/24 11:50 19 100 Mechanical Ventilator+ 30 30 10/29/24 11:45 99.9 115/51 (72) 211.8 Total Intake and Output 10/28/24 10/28/24 10/29/24 15:00 23:00 07:00 Intake Total 100 ml 415 ml 223 ml Output Total 200 ml 800 ml Balance 100 ml 215 ml -577 ml medications Current Medications Medications Dose Ordered Sig/Liliam Route Start Time Stop Time Status Last Admin Dose Admin Midazolam HCl 50 ml @ 1 mls/hr Q24H IV 10/07/24 04:45 10/21/24 07:28 4 MLS/HR Ondansetron HCl 4 mg Q4HP PRN IV 10/07/24 10:00 Nitroglycerin 0.4 mg Q5MINP PRN SL 10/07/24 10:00 Pantoprazole Sodium 40 mg DAILY IV 10/07/24 10:00 10/29/24 08:17 40 MG Mexiletine HCl 150 mg TID GT 10/08/24 22:00 10/29/24 05:53 150 MG Acetaminophen 500 mg Q6HP PRN PO 10/08/24 22:30 10/19/24 03:18 500 MG Enteral Nutritional Formula 1,000 ml 55ML/HR GT 10/09/24 18:45 10/22/24 18:55 1,000 ML Phenylephrine HCl 80 mg/Sodium Chloride 250 ml @ 7.5 mls/hr Q24H IV 10/10/24 09:30 10/25/24 23:02 7.5 MLS/HR Furosemide 20 mg BIDD IV 10/12/24 18:00 10/29/24 05:53 20 MG Esmolol HCl 250 ml @ 0 mls/hr Q0M IV 10/14/24 10:45 Amino Acids 0 ml @ 0 mls/hr PER PHARMACY IV 10/15/24 18:45 Cancel Dextrose 50 ml UD IV 10/16/24 09:30 Cancel Polyethylene Glycol 17 gm DAILYPRN PRN GT 10/17/24 16:45 10/19/24 05:54 17 GM Doxycycline Monohydrate 100 mg Q12HR NG 10/18/24 10:00 10/29/24 08:18 100 MG Piperacillin Sod/ Tazobactam Sod 100 ml @ 25 mls/hr Q8HR IV 10/19/24 14:00 10/29/24 05:51 25 MLS/HR Hydrocortisone Sodium Succinate 50 mg Q6HR IV 10/19/24 18:00 10/29/24 05:52 50 MG Vancomycin HCl 0 ml @ 0 mls/hr UD IV 10/19/24 14:00 Cancel Vasopressin 20 units/Sodium Chloride 100 ml @ 9 mls/hr Q11H7M IV 10/19/24 15:45 Amino Acid Protein 30 ml DAILY GT 10/22/24 10:00 10/28/24 10:24 30 ML Fluconazole 100 ml @ 100 mls/hr DAILY IV 10/22/24 14:00 10/29/24 08:17 100 MLS/HR Apixaban 2.5 mg BID PO 10/25/24 10:00 Hold Metoclopramide HCl 5 mg BID IV 10/25/24 10:00 Hold 10/25/24 21:32 5 MG Sodium Chloride 10 ml QSHIFT@10,22 IV 10/26/24 22:00 10/29/24 08:18 10 ML Morphine Sulfate 2 mg Q4HPRN PRN IV 10/28/24 10:30 10/28/24 13:59 2 MG Metoprolol Tartrate 12.5 mg BID PO 10/28/24 22:00 objective General Appearance: no distress HEENT: EOMI, PERRLA, normal external inspect of ears, no icterus, no nasal drainage Neck: no carotid bruit, no jugular venous distention (JVD), no lymphadenopathy Chest: normal thorax Respiratory: Intubated, clear to auscultation, normal air movement Cardiovascular: regular rate and rhythm, no diastolic murmur, no jugular venous distention (JVD), no rub, no systolic murmur Abdominal: soft, no hepatomegaly, no mass, no splenomegaly, no tenderness Genitourinary: grossly normal external Musculoskeletal: no joint tenderness, no swelling Extremities: normal pulses, no calf tenderness, no clubbing, no cyanosis, no edema Skin: no bruising, no jaundice, no rash Neurological: No focal deficit laboratory and microbiology Laboratory Tests 10/29/24 08:23 Test 10/29/24 08:23 Range/Units Serum Glucose 138 H 74-106 mg/dL Problem List Cardiac Arrest with Ventricular Fibrillation Assessment: Patient experienced cardiac arrest with ventricular fibrillation on 10/07/24, witnessed by family members who initiated CPR. EMS found the patient in ventricular fibrillation and administered shock therapy. Rhythm strip analysis confirmed ventricular fibrillation. Patient required intubation and sedation upon ED arrival. Currently admitted to ICU for close observation. Cardiology has been consulted and plans for AICD placement, likely on Tuesday. Infectious disease clearance has been obtained for the AICD procedure, addressing initial concerns of leukocytosis which is now improving. Status post-cardiac arrest. Plan: - Continue ICU monitoring - Proceed with AICD placement as planned (likely Tuesday), cleared by infectious disease. - Maintain intubation and sedation until AICD placement - Continue Heparin drip for paroxysmal atrial fibrillation - Continue Mexitil - DC amiodarone due to transaminitis - added esmolol drip per Cardiology for AFib and added push doses of digoxin Coronary Artery Disease Assessment: Patient with history of 2-vessel CABG (Coronary Artery Bypass Grafting). Surgical intervention previously performed to address significant coronary artery stenosis. Plan: - Continue medical management - Follow up with cardiology for ongoing coronary artery disease management Acute and Chronic Systolic Heart Failure Assessment: Patient has acute and chronic systolic heart failure with severely reduced left ventricular function. Ejection fraction is estimated at 15-20%. RICHIE findings are consistent with severely reduced left ventricular ejection fraction, previously implanted mitral ring, up to moderate mitral stenosis and regurgitation, and moderate aortic insufficiency. Plan: - Continue cardiology consultation - continue IV diuretics (IV Lasix) - Monitor renal function Acute Hypoxic Respiratory Failure Assessment: Patient is currently intubated due to acute hypoxic respiratory failure. Dr. Downey from pulmonology is managing this aspect of care. Plan: - Maintain current intubation as per pulmonology recommendation - Proceed with CPAP trials when deemed appropriate by pulmonology Transaminitis Assessment: Patient has elevated liver function tests, likely secondary to amiodarone use. Cardiology has discontinued amiodarone in response. Plan: - Monitor liver function tests - Amiodarone discontinued as per cardiology Enterobacter PNA Assessment: Sputum culture positive for Enterobacter. Plan: - Continue treatment with Eratapenem to complete 10 days regimen -Infectious disease consult Hemodynamic Support Assessment: Patient requires vasopressor support for hemodynamic stability. Plan: - Continue vasopressin - Continue neosynephrine Paroxysmal a fib -DC amiodarone -continue with heparin gtt Assessment/Plan Subjective: Patient remains on the ventilator. Objective: Patient is currently undergoing spontaneous breathing trials. Ventilator currently at 30% FiO2. Patient has been having mild temperature at 99. Patient was admitted status post cardiac arrest status post AICD placement. Patient has acute on chronic systolic heart failure acute hypoxic respiratory failure. Patient is having intermittent A-fib and ventricular tachycardia. Plan: Replace electrolytes. Monitor EKG. ventilator management per pulmonary. Most likely patient will need referral to LTAC. Monitor daily labs. Dietary Evaluation Review Comments: 1) TF Jevity 1.2Cal @ 55 ml/hr. x 24hr along with Pro-stat 1 pk daily. Start @ 20ml/hr, increase 10ml/hr Q4H until goal is reached. TF @ goal volume provides 1684 kcal (100% energy needs), 88 gm protein (100% protein needs), 1065 ml free water. 2) Water flush 100ml Q4H if allowed, adjust PRN 3) Advance to cardiac diet as medically feasible 4) Monitor NPO status, lab values, wt trend, I/O Expected Outcomes/Goals: To meet >75% estimated needs within 7 days Lab values to improve Fu 2-3 days Plan discussed with: Patient, Other BRODIE GARVIN [employer] SUPERVISOR Oct 29, 2024 12:00
[2024-10-29] MEDS: POTASSIUM CHL 20MEQ/100ML 100 ML IV ONE (12:45)
--- NOTE | 2024-10-29 12:46 | DVHPN2 ---
Progress Note - Dictate Date Seen: Oct 29, 2024 Has the PT tested + for MRSA If YES, has PT been informed?: No Medical Necessity Reason Pt with a Central, PICC or Fol: Yes The following are medically ne: PICC Line, Cutler Catheter Reason for cutler catheter: Strict I&O vital signs Vital Sign Date Time Temp Pulse Resp B/P (MAP) Pulse Ox O2 Delivery O2 Flow Rate FiO2 10/29/24 11:50 55 10/29/24 11:50 19 100 Mechanical Ventilator+ 30 30 10/29/24 11:45 99.9 115/51 (72) 211.8 Total Intake and Output 10/28/24 10/28/24 10/29/24 15:00 23:00 07:00 Intake Total 100 ml 415 ml 223 ml Output Total 200 ml 800 ml Balance 100 ml 215 ml -577 ml medications Current Medications Medications Dose Ordered Sig/Liliam Route Start Time Stop Time Status Last Admin Dose Admin Midazolam HCl 50 ml @ 1 mls/hr Q24H IV 10/07/24 04:45 10/21/24 07:28 4 MLS/HR Ondansetron HCl 4 mg Q4HP PRN IV 10/07/24 10:00 Nitroglycerin 0.4 mg Q5MINP PRN SL 10/07/24 10:00 Pantoprazole Sodium 40 mg DAILY IV 10/07/24 10:00 10/29/24 08:17 40 MG Mexiletine HCl 150 mg TID GT 10/08/24 22:00 10/29/24 05:53 150 MG Acetaminophen 500 mg Q6HP PRN PO 10/08/24 22:30 10/19/24 03:18 500 MG Enteral Nutritional Formula 1,000 ml 55ML/HR GT 10/09/24 18:45 10/22/24 18:55 1,000 ML Phenylephrine HCl 80 mg/Sodium Chloride 250 ml @ 7.5 mls/hr Q24H IV 10/10/24 09:30 10/25/24 23:02 7.5 MLS/HR Furosemide 20 mg BIDD IV 10/12/24 18:00 10/29/24 05:53 20 MG Esmolol HCl 250 ml @ 0 mls/hr Q0M IV 10/14/24 10:45 Amino Acids 0 ml @ 0 mls/hr PER PHARMACY IV 10/15/24 18:45 Cancel Dextrose 50 ml UD IV 10/16/24 09:30 Cancel Polyethylene Glycol 17 gm DAILYPRN PRN GT 10/17/24 16:45 10/19/24 05:54 17 GM Doxycycline Monohydrate 100 mg Q12HR NG 10/18/24 10:00 10/29/24 08:18 100 MG Piperacillin Sod/ Tazobactam Sod 100 ml @ 25 mls/hr Q8HR IV 10/19/24 14:00 10/29/24 05:51 25 MLS/HR Hydrocortisone Sodium Succinate 50 mg Q6HR IV 10/19/24 18:00 10/29/24 05:52 50 MG Vancomycin HCl 0 ml @ 0 mls/hr UD IV 10/19/24 14:00 Cancel Vasopressin 20 units/Sodium Chloride 100 ml @ 9 mls/hr Q11H7M IV 10/19/24 15:45 Amino Acid Protein 30 ml DAILY GT 10/22/24 10:00 10/28/24 10:24 30 ML Fluconazole 100 ml @ 100 mls/hr DAILY IV 10/22/24 14:00 10/29/24 08:17 100 MLS/HR Apixaban 2.5 mg BID PO 10/25/24 10:00 Hold Metoclopramide HCl 5 mg BID IV 10/25/24 10:00 Hold 10/25/24 21:32 5 MG Sodium Chloride 10 ml QSHIFT@10,22 IV 10/26/24 22:00 10/29/24 08:18 10 ML Morphine Sulfate 2 mg Q4HPRN PRN IV 10/28/24 10:30 10/28/24 13:59 2 MG Metoprolol Tartrate 12.5 mg BID PO 10/28/24 22:00 laboratory and microbiology Laboratory Tests 10/29/24 08:23 Test 10/29/24 08:23 Range/Units Serum Glucose 138 H 74-106 mg/dL Assessment/Plan Still intubated and in ICU. Off pressure support. Off sedation, still not regaining higher brain function. s/p PRBC transfusion. Eliquis is still pending to start (INR is still above 2) Patient is a 54-year-old female who was brought to the hospital for witnessed syncope. She is intubated and is being managed in ICU. Information was obtained by reviewing the chart and communicating with patient's son (over the phone). Family recognized witnessed syncope and started CPR and called EMS. Reportedly, EMS found the patient in ventricular fibrillation and shocked the patient and brought the patient to the hospital. Patient was intubated in emergency room and transferred to ICU. Patient was on amiodarone drip. Later the patient had ventricular tachycardia (Systane). High sensitive troponin had been minimally/flatly elevated. Presentation was not in favor of acute coronary syndrome. Cardiology is involved for cardiac aspects of care. Intubated. Noncommunicative. No JVD. Mucosa pale. No carotid bruit. Scattered rhonchi in the lungs is heard. Cardiac: Regular, no thrill. Systolic murmur 2/6 in apex is heard. Abdomen is soft. No edema in extremities. Past medical history as per son: Congenital heart disease, status post bypass WBC: 14.5 - 11.9 - 18.8 - 20.0 - 21.2 - 14.3 - 10.3 - 8.9 - 9.2 - 11.1 - 12.1 - 10.8 - 12.0 - 9.9 - 15.4 - 14.8 - 12.1 - 10.5 - 5.8 - 5.3 - 4.2 - 5.8 - 4.1 - 7.0 - 9.3 Hemoglobin: 10.1 - 9.6 - 9.2 - 8.8 - 8.7 - 8.0 - 8.3 - 8.5 - 7.8 - 10.2 - 10.7 - 9.9 - 9.7 - 9.3 - 9.3 - 8.6 - 8.1 - 7.4 - 7.5 - 7.4 - 7.5 - 7.2 - 7.7 - 7.0 - (post PRBC transfusion) 10.4 - 10 Creatinine: 0.95 - 0.93 - 0.87 - 0.83 - 0.83 - 0.76 - 0.68 - 0.72 - 0.79 - 0.76 - 0.80 - 0.84 - 0.61 - 0.65 - 0.74 - 0.64 - 0.73 - 0.82 - 0.88 - 1.03 - 0.99 - 0.85 - 0.87 - 0.79 - 1.12 - 1.15 Potassium: 3.4 - 4.0 - 4.6 - 3.5 - 3.3 - 4.1 - 3.7 - 3.2 - 3.7 - 4.0 - 3.2 - 3.4 - 3.9 - 4.2 - 3.3 - 3.8 - 3.6 - 3.4 - 4.2 - 3.8 - 4.5 - 4.1 - 3.5 - 4.2 - 3.3 - 2.6 - 3.5 - 3.8 - 2.4 - 2.9 - 4.6 - 2.8 - 4.8 - 4.9 - 3.4 Magnesium: 2.0 - 1.6 - 2.0 - 3.0 - 1.5 - 1.9 - 2.1 - 1.8 - 2.0 - 1.9 - 1.9 - 2.6 - 2.0 - 1.8 - 1.6 - 2.0 - 2.2 - 1.9 - 2.3 - 2.2 - 2.2 - 2.1 - 2.1 - 1.9 2.7 - 2.6 - 2.3 Troponin (high sensitive): 141 - 138 - 117 BNP: 457.16 AST/ALT: 32/11 - 19/13 - 538/168 - 293/152 - 131/130 - 78/94 - 68/74 - 48/57 - 27/38 - 15/23 - 20/18 - 23/17 - 29/16 - 27/13 - 34/17 - 73/49 - 41/43 - 30/47 - 30/42 - 29/42 - 17/27 - 160/87 - 900/478 Digoxin level: 2.83 - 1.25 - 0.98 UDS: non-revealing Chest x-ray revealed: Lines and Tubes: Endotracheal tube tip projects approximately 1.4 cm above the level of the tyler. Enteric catheter courses below the lateral of the diaphragm and terminates beyond the inferior margin of the image. Right internal jugular central venous catheter terminates within the distal superior vena cava. Lungs: Moderate diffuse increased prominence of the pulmonary vasculature without evidence of focal consolidation. Pleura: No effusion. No pneumothorax. Cardiomediastinal contours: Cardiomegaly. Bones: Unremarkable IMPRESSION: 1. Cardiomegaly and diffuse increased prominence of the pulmonary vasculature. 2. Lines and tubes as above. Repeat chest x-ray revealed: IMPRESSION: 1. Endotracheal tube tip 1.6 cm above the tyler; consider 2 cm retraction 2. Mild pulmonary vascular congestion. Moderate cardiomegaly. Repeat chest xry revealed: IMPRESSION: Endotracheal tube tip 1.6 cm above the tyler; consider 2 cm retraction Mild pulmonary vascular congestion. Moderate cardiomegaly. Repeat chest xry revealed: IMPRESSION: 1. Stable cardiomegaly, small left pleural effusion and mild diffuse increased prominence of the pulmonary vasculature. 2. Repositioned endotracheal tube as above. Remaining lines and tubes unchanged. Repeat chest xry revealed: IMPRESSION: 1. Cardiomegaly, stable diffuse increased prominence of the pulmonary vasculature and small bilateral pleural effusions. 2. Slight interval advancement of endotracheal tube as above. Remaining lines and tubes unchanged. Repeat chest xry revealed: IMPRESSION: 1. Slight interval decrease in diffuse increased prominence of the pulmonary vasculature. 2. Stable cardiomegaly and small left pleural effusion. 3. Lines and tubes unchanged. Repeat chest xry revealed: IMPRESSION: 1. Cardiomegaly and small left pleural effusion. 2. Lines and tubes unchanged. Repeat chest xry revealed: IMPRESSION: Stable lines and tubes. Similar lung aeration. Repeat chest xry revealed: IMPRESSION: Cardiomegaly and small left pleural effusion. Lines and tubes unchanged. Repeat chest xry revealed: IMPRESSION: Placement of a cardiac pacer, no pneumothorax is seen. Stable lines and tubes. Repeat chest xry revealed: IMPRESSION: 1. Worsening mixed opacities in the right lower lung. No other significant change from the previous study. Stable support devices. Repeat chest xry revealed: Heart is prominent in size with postsurgical changes, median sternotomy wires, and a single lead left cardiac defibrillator. Support lines and tubes appear unchanged in satisfactory in position. No sizable effusion or pneumothorax. Mild pulmonary vascular congestion. No significant interval change. Repeat chest xry revealed: IMPRESSION: 1. No significant change from the previous study. Stable support devices. Similar findings of heart failure including left pleural effusion. Repeat chest xry revealed: IMPRESSION: 1. No significant change from the previous study. Stable support devices. Similar findings of heart failure including trace left pleural effusion. Repeat chest xry revealed: Lines and Tubes: Unchanged. Left anterior chest wall cardiac pacing device. Lungs: Clear Pleura: No effusion. No pneumothorax. Cardiomediastinal contours: Cardiomegaly. Bones: Unremarkable IMPRESSION: 1. Cardiomegaly. 2. Lines and tubes unchanged. KUB revealed: IMPRESSION: Nonobstructive bowel gas pattern. Nasogastric tube tip in the stomach. Large stool burden. Repeat KUB revealed: Right lower extremity PICC line with tip projecting over the expected region of the intrahepatic IVC. Nasogastric tube projecting towards the distal stomach. Nonspecific bowel gas pattern. Cardiomegaly and left basilar airspace opacities, incompletely characterized. Atherosclerotic calcification disease. Left upper ext arterial duplex: IMPRESSION: No hemodynamically significant stenosis based on peak systolic velocity criteria. Left lower ext arterial duplex: IMPRESSION: There is no evidence for peripheral vascular insufficiency in the left lower extremity. No significant focal stenosis is identified. Liver Ultrasound revealed: Hepatic steatosis. Hepatomegaly. Cholelithiasis. CT of the head revealed: IMPRESSION: No acute intracranial abnormality. Repeat CT of head revealed: IMPRESSION: No acute intracranial abnormality. Echocardiogram reported: lvef 15-20% dilated LV severe global dysfunction mild RV dysfunction biatrial enlargement mild moderate MAC, moderate mitral regurg mild to moderate aortic regug (images of echo reviewed and questioned presence of mitral ring and also some component (moderate of Mitral stenosis) EKG revealed sinus rhythm Telemetry revealed occasions of atrial fibrillation. There was occasional sustained ventricular tachycardia. EMS tele monitor revealed ventricular fibrillation for which the patient was shocked. Has remained sinus rhythm. Later with A-fib with MVR LHC revealed: Patent RICHMOND to LAD; Patent SVG to obtuse marginal; LVEF of 20% with increased EDP; Proximal disease in LAD/LCX RICHIE was performed: Consistent with severely reduced LVEF. Consistent with previously implanted Mitral ring, Up to moderate Mitral stenosis/Mitral Regurgitation and also Moderate Aortic insufficiency. Patient is a 54-year-old female who presented with witnessed syncope. She was found to have ventricular fibrillation for which was shocked. Later had repeated episode of sustained ventricular tachycardia. Patient has been kept in ICU. Does have baseline history of coronary artery disease for which has had bypass surgery. Left heart catheterization was performed which revealed patent RICHMOND and patent SVG. ACS is not considered at this point. It is of note that the patient's echocardiogram reveals significantly use systolic function. Valvular heart disease is considered. Findings are in favor of previously implanted mitral ring. By reviewing the echo images, component of up to moderate mitral stenosis could not be ruled out. LHC was performed that ruled out any active specific ischemia as an etiology for presentation. Is off Amiodarone for abnormal LFT. Being followed by Nephrology / Pulmonary / Neurology / GI ID. Tele has remained sinus rhythm. Had episode of a-fib with RVR. Was loaded with Digoxin. Dig level was performed at wrong timing (only 5 hours after the last Dig given). Dig toxicity is not considered. Patient is back to normal sinus rhythm. Has good kidney function. Repeat Dig level is acceptable level. s/p ICD implantation by EP Syncope V-fib s/p shock Sustained V-tach Paroxysmal A-fib VHD, s/p Mitral ring Systolic heart failure Abnormal LFT, at a point resolved, later appeared again s/p ICD (Biotronik) implantation by EP (Dr Armstrong) s/p PRBC transfusion for significant anemia Cardiac suggestion for management: Manage in ICU Follow up electrolytes and kidney function test and correct abnormalities Full anticoagulation (a-fib with high CHADS-Vasc score). s/p ICD implantation. As per oral communication by Dr Armstrong (EP), we can change the A/C to Eliquis (will consider it when INR below 2) Off Amio drip (worsened LFT) (personally discussed with EP: Dr Armstrong who advised to stop / not to restart Amiodarone) On Mexiletine If need for pressure support: use Phenyl Ephrine / vasopressin, keep MAP above 65 (for now off pressure support and tolerating) On Metoprolol to decrease risk of Vtach (as patient has ICD with bradycardia protection: may continue metoprolol in case of bradycardia, but hold: if hypotensive) May consider/add Esmolol for PVC/Vtach (if needed) s/p ICD (Biotronik) implantation by EP Off warfarin: Eliquis: 2.5 mg BID (only after INR is below 2.0) s/p PRBC transfusion for anemia Pulmonary Follow up GI follow up for worsening liver function tests Provide previous medical records from reaching out to previous hospitals in [facility]... Further evaluation and management depends on the above and clinical course. A total of 75 minutes was spent reviewing the patient record, examining the patient, making a diagnostic and therapeutic plan, discussing this plan with medical personnel, following up on diagnostic studies and following the patient for clinical stability excluding any and all procedures. At least 50% of this time was spent in direct, [id number] contact. Thank you for allowing me to participate in this patient's care. Further recommendations will depend on patient's clinical course. Please do not hesitate to contact me if you have any questions or concerns. This medical document was created using electronic medical record system with [employer] computerized dictation system. Although this document has been carefully reviewed, there may still be some phonetic and typographical errors. These areas are purely typographical due to the imperfection of the software programs, and do not reflect any compromise in the patient's medical care. Dietary Evaluation Review Comments: 1) TF Jevity 1.2Cal @ 55 ml/hr. x 24hr along with Pro-stat 1 pk daily. Start @ 20ml/hr, increase 10ml/hr Q4H until goal is reached. TF @ goal volume provides 1684 kcal (100% energy needs), 88 gm protein (100% protein needs), 1065 ml free water. 2) Water flush 100ml Q4H if allowed, adjust PRN 3) Advance to cardiac diet as medically feasible 4) Monitor NPO status, lab values, wt trend, I/O Expected Outcomes/Goals: To meet >75% estimated needs within 7 days Lab values to improve Fu 2-3 days Plan discussed with: Other (nurse) CORDELL VERA MD Oct 29, 2024 12:46
--- NOTE | 2024-10-29 13:33 | DVHPN2 ---
Progress Note - Dictate Date Seen: Oct 29, 2024 Has the PT tested + for MRSA If YES, has PT been informed?: No Medical Necessity Reason Pt with a Central, PICC or Fol: Yes The following are medically ne: PICC Line, Cutler Catheter Reason for cutler catheter: Strict I&O Subjective Ms. Smith is a 54 years old female who was brought to the [facility] on 10/07/2024 with a chief complaint of cardiopulmonary arrest/status post CPR. I have seen and examined the patient, I have discussed with her nurse, she is intubated, awake, she follows verbal commands, socially appropriate, she moves the arms and legs She had V-tach yesterday, and tachypnea today She received pacemaker insertion on 10/17/2024 Blood culture, 10/09/2024: No growth Blood culture, 10/19/2024: UDS, 10/07/2024: Negative Urinalysis, 10/07/2024: Leukocyte esterase: Negative WBC/HB/PLT/MCV, 10/09/2024: 20/8.8/219/94.6, 10/10/2024: 21.2/8.7/232/92.2 PT/INR/PTT, 10/08/2024: 12.4/1.19/72.7, 10/09/2024: 13.1/1.26/68.9, 10/10/2024: 14.4/2/1.38/35.3 CMP, 10/08/2024: Unremarkable Troponin one high sensitivity, 10/07/2024: 141, 138, 117 TBI/AST/ALT/AP, 10/10/2024: 0.5/538/168/144, 10/11/2024: 0.6/293/199/152, 10/14/2024: 0.8/68/74/124 TG/HDL/LDL/HDL, 10/07/24: 71/66/31/21 EKG 10/10/2024: Atrial fibrillation EKG, 10/15/2024: Atrial fibrillation Echocardiogram, 10/07/2024: lvef 15-20% dilated LV severe global dysfunction mild RV dysfunction biatrial enlargement mild moderate MAC, moderate mitral regurg mild to moderate aortic regug RICHIE, 10/08/2024: 1. Left ventricle: Dilated LV was seen. LVEF was 25%. There was diffuse hypokinesis of left ventricle. 2. Right ventricle: RV was mildly dilated. 3. Left atrium: LA enlarged 4. Right atrium: RA was enlarged. 5. Mitral valve: Mitral was thickened with reduced opening. Moderate Mitral regurgitation was seen. Planinomentry of valve (TTE images also obtained) revealed MVA of 2.1 cm. Mean pressure gradient (obtained from limited TTE images) was 5. Images are consistent with previously implanted Ring in Mitral position. Consistent with up to Moderate Mitral stenosis. . There was no vegetation 6. Left atrial appendage: No evidence of thrombus. 7. Aortic valve: Trileaflet valve. No stenosis. Up to moderate Aortic Insufficiency was seen. There was no vegetation 8. Pulmonic valve: Trivial pulmonic insufficiency. No significant stenosis. 9. Tricuspid valve: Mild tricuspid regurgitation. There was no vegetation 10. Interatrial septum: Negative color flow for right to left shunt was observed. Bubble study was performed: negative for shunt 11. Pericardium: No significant effusion. 12. Thoracic aorta: No significant plaquing. Chest x-ray, 10/27/2024: 1. Cardiomegaly, stable diffuse increased prominence of the pulmonary vasculature and small bilateral pleural effusions. 2. Slight interval advancement of endotracheal tube as above. Remaining lines and tubes unchanged. CT head, 10/07/2024: No acute intracranial abnormality General: the patient is well developed and nourished. No acute distress. Intubated CT head, 10/07/2024: No acute intracranial abnormality. CT head, 10/11/2024: No acute intracranial abnormality vital signs Vital Sign Date Time Temp Pulse Resp B/P (MAP) Pulse Ox O2 Delivery O2 Flow Rate FiO2 10/29/24 13:30 55 10/29/24 13:30 21 100 Mechanical Ventilator+ 30 30 10/29/24 13:15 99.9 107/58 (74) 211.8 Total Intake and Output 10/28/24 10/28/24 10/29/24 15:00 23:00 07:00 Intake Total 100 ml 415 ml 223 ml Output Total 200 ml 800 ml Balance 100 ml 215 ml -577 ml medications Current Medications Medications Dose Ordered Sig/Liliam Route Start Time Stop Time Status Last Admin Dose Admin Midazolam HCl 50 ml @ 1 mls/hr Q24H IV 10/07/24 04:45 10/21/24 07:28 4 MLS/HR Ondansetron HCl 4 mg Q4HP PRN IV 10/07/24 10:00 Nitroglycerin 0.4 mg Q5MINP PRN SL 10/07/24 10:00 Pantoprazole Sodium 40 mg DAILY IV 10/07/24 10:00 10/29/24 08:17 40 MG Mexiletine HCl 150 mg TID GT 10/08/24 22:00 10/29/24 12:43 150 MG Acetaminophen 500 mg Q6HP PRN PO 10/08/24 22:30 10/19/24 03:18 500 MG Enteral Nutritional Formula 1,000 ml 55ML/HR GT 10/09/24 18:45 10/22/24 18:55 1,000 ML Phenylephrine HCl 80 mg/Sodium Chloride 250 ml @ 7.5 mls/hr Q24H IV 10/10/24 09:30 10/25/24 23:02 7.5 MLS/HR Furosemide 20 mg BIDD IV 10/12/24 18:00 10/29/24 05:53 20 MG Esmolol HCl 250 ml @ 0 mls/hr Q0M IV 10/14/24 10:45 Amino Acids 0 ml @ 0 mls/hr PER PHARMACY IV 10/15/24 18:45 Cancel Dextrose 50 ml UD IV 10/16/24 09:30 Cancel Polyethylene Glycol 17 gm DAILYPRN PRN GT 10/17/24 16:45 10/19/24 05:54 17 GM Piperacillin Sod/ Tazobactam Sod 100 ml @ 25 mls/hr Q8HR IV 10/19/24 14:00 10/29/24 12:43 25 MLS/HR Hydrocortisone Sodium Succinate 50 mg Q6HR IV 10/19/24 18:00 10/29/24 12:43 50 MG Vancomycin HCl 0 ml @ 0 mls/hr UD IV 10/19/24 14:00 Cancel Vasopressin 20 units/Sodium Chloride 100 ml @ 9 mls/hr Q11H7M IV 10/19/24 15:45 Amino Acid Protein 30 ml DAILY GT 10/22/24 10:00 10/28/24 10:24 30 ML Fluconazole 100 ml @ 100 mls/hr DAILY IV 10/22/24 14:00 9/1/25 08:17 100 MLS/HR Apixaban 2.5 mg BID PO 10/25/24 10:00 Hold Metoclopramide HCl 5 mg BID IV 10/25/24 10:00 Hold 10/25/24 21:32 5 MG Sodium Chloride 10 ml QSHIFT@10,22 IV 10/26/24 22:00 10/29/24 08:18 10 ML Morphine Sulfate 2 mg Q4HPRN PRN IV 10/28/24 10:30 10/28/24 13:59 2 MG Metoprolol Tartrate 12.5 mg BID PO 10/28/24 22:00 objective The patient is well-nourished and well-developed with no distress. The patient is intubated MENTAL STATUS: Subjective CRANIAL NERVES: Pupils are equal, round and reactive.There are corneal reflexes and doll's eyes phenomenon. No signs of facial weakness. There are gagging or coughing reflexes SENSATION: Responses to pain stimuli. MOTOR: Normal tone in the upper and lower extremity. Normal muscle bulk. No fasciculations. No spontaneous movement. REFLEXES: Deep tendon reflexes are symmetrical. No pathological reflexes. CEREBELLAR/COORDINATION: Deferred GAIT/STATION: deferred. laboratory and microbiology Laboratory Tests 10/29/24 08:23 Test 10/29/24 08:23 Range/Units Serum Glucose 138 H 74-106 mg/dL Problem List Cardiopulmonary arrest Status post CPR Metabolic encephalopathy Hypoxic encephalopathy Congestive heart failure Leukocytosis/sepsis/septic shock Respiratory failure Elevated liver function tests AFib S/P pacemaker insertion on 10/17/2024 Assessment/Plan Monitoring Supportive treatment ICU care Stabilize vitals Respiratory support/vent management Hold off Lipitor (elevated liver function tests), LDL (31) (home medications included Lipitor 40 mg daily) DVT prophylaxis GI prophylaxis Cardiology on case Pulmonology on case Nephrology on case Consult GI Re: Elevated liver function tests Need more history Extubation when she is ready This medical document was created using an electronic medical record system with [employer] dictation system. Although this document has been carefully reviewed, there may still be some phonetic and typographical errors. These areas are purely typographical due to imperfections of the software programs, and do not reflect any compromise in the patient's medical care. Prognosis poor Dietary Evaluation Review Comments: 1) TF Jevity 1.2Cal @ 55 ml/hr. x 24hr along with Pro-stat 1 pk daily. Start @ 20ml/hr, increase 10ml/hr Q4H until goal is reached. TF @ goal volume provides 1684 kcal (100% energy needs), 88 gm protein (100% protein needs), 1065 ml free water. 2) Water flush 100ml Q4H if allowed, adjust PRN 3) Advance to cardiac diet as medically feasible 4) Monitor NPO status, lab values, wt trend, I/O Expected Outcomes/Goals: To meet >75% estimated needs within 7 days Lab values to improve Fu 2-3 days Plan discussed with: Other CAROLINE ROBB MD Oct 29, 2024 13:33
--- NOTE | 2024-10-29 21:49 | DVH ---
INDICATION: check cutler placement in the bladder TECHNIQUE: Multiple real-time grayscale transabdominal sonographic images along with color and duplex Doppler of the uterus and ovaries were obtained. COMPARISON: None FINDINGS: Cutler catheter in the bladder in the bladder is decompressed. IMPRESSION: 1. Cutler catheter in the bladder in the bladder is decompressed.
--- NOTE | 2024-10-29 22:46 | DVHPN2 ---
Progress Note - Dictate Date Seen: Oct 29, 2024 Has the PT tested + for MRSA If YES, has PT been informed?: No Medical Necessity Reason Pt with a Central, PICC or Fol: Yes The following are medically ne: PICC Line, Cutler Catheter Reason for cutler catheter: Strict I&O Subjective Patient is seen and examined at bedside Intubated on mechanical ventilator. Overnight events reviewed. vital signs Vital Sign Date Time Temp Pulse Resp B/P (MAP) Pulse Ox O2 Delivery O2 Flow Rate FiO2 10/29/24 22:27 55 20 117/62 (80) 100 30 10/29/24 18:30 99.7 211.5 10/29/24 17:34 Mechanical Ventilator+ 10/29/24 17:20 30.0 Total Intake and Output 10/28/24 10/28/24 10/29/24 15:00 23:00 07:00 Intake Total 100 ml 415 ml 223 ml Output Total 200 ml 800 ml Balance 100 ml 215 ml -577 ml medications Current Medications Medications Dose Ordered Sig/Liliam Route Start Time Stop Time Status Last Admin Dose Admin Midazolam HCl 50 ml @ 1 mls/hr Q24H IV 10/07/24 04:45 10/21/24 07:28 4 MLS/HR Ondansetron HCl 4 mg Q4HP PRN IV 10/07/24 10:00 Nitroglycerin 0.4 mg Q5MINP PRN SL 10/07/24 10:00 Pantoprazole Sodium 40 mg DAILY IV 10/07/24 10:00 10/29/24 08:17 40 MG Mexiletine HCl 150 mg TID GT 10/08/24 22:00 10/29/24 22:17 150 MG Acetaminophen 500 mg Q6HP PRN PO 10/08/24 22:30 10/19/24 03:18 500 MG Enteral Nutritional Formula 1,000 ml 55ML/HR GT 10/09/24 18:45 10/22/24 18:55 1,000 ML Phenylephrine HCl 80 mg/Sodium Chloride 250 ml @ 7.5 mls/hr Q24H IV 10/10/24 09:30 10/25/24 23:02 7.5 MLS/HR Furosemide 20 mg BIDD IV 10/12/24 18:00 10/29/24 17:20 20 MG Esmolol HCl 250 ml @ 0 mls/hr Q0M IV 10/14/24 10:45 Amino Acids 0 ml @ 0 mls/hr PER PHARMACY IV 10/15/24 18:45 Cancel Dextrose 50 ml UD IV 10/16/24 09:30 Cancel Polyethylene Glycol 17 gm DAILYPRN PRN GT 10/17/24 16:45 10/19/24 05:54 17 GM Piperacillin Sod/ Tazobactam Sod 100 ml @ 25 mls/hr Q8HR IV 10/19/24 14:00 10/29/24 22:17 25 MLS/HR Hydrocortisone Sodium Succinate 50 mg Q6HR IV 10/19/24 18:00 10/29/24 17:20 50 MG Vancomycin HCl 0 ml @ 0 mls/hr UD IV 10/19/24 14:00 Cancel Vasopressin 20 units/Sodium Chloride 100 ml @ 9 mls/hr Q11H7M IV 10/19/24 15:45 Amino Acid Protein 30 ml DAILY GT 10/22/24 10:00 10/28/24 10:24 30 ML Fluconazole 100 ml @ 100 mls/hr DAILY IV 10/22/24 14:00 10/29/24 08:17 100 MLS/HR Apixaban 2.5 mg BID PO 10/25/24 10:00 Hold Metoclopramide HCl 5 mg BID IV 10/25/24 10:00 Hold 10/25/24 21:32 5 MG Sodium Chloride 10 ml QSHIFT@10,22 IV 10/26/24 22:00 10/29/24 22:16 10 ML Morphine Sulfate 2 mg Q4HPRN PRN IV 10/28/24 10:30 10/28/24 13:59 2 MG Metoprolol Tartrate 12.5 mg BID PO 10/28/24 22:00 10/29/24 22:17 12.5 MG objective Gen.: Patient lying in bed in medical ICU. Intubated on mechanical ventilator. Head: Normocephalic, atraumatic. Eyes: PERRLA. Ears: Normal external anatomy. Throat: Endotracheal tube and orogastric tube in place. Neck: Supple, trachea midline. Chest: Transmitted breath sounds bilaterally. Decreased air entry bilaterally. No wheezing. Bibasilar crackles. Cardiovascular: Positive S1, positive S2. Regular rate and rhythm. Abdomen: Positive bowel sounds in all 4 quadrants. Soft, nontender, nondistended. : Cutler in place. Normal external genitalia. Rectal: Deferred. Skin: Warm, dry. Intact. Extremities: 2+ radial pulses bilaterally. No lower extremity edema. Neuro: Off sedation laboratory and microbiology Laboratory Tests 10/29/24 08:23 Test 10/29/24 08:23 Range/Units Serum Glucose 138 H 74-106 mg/dL Assessment/Plan Impression: Acute hypoxic respiratory failure On mechanical ventilator s/p cardiac arrest Ventricular tachycardia CPR <5 min Elevated troponin Atelectasis Events: Pt seen and examined in ICU Vent support AC mode with RR 18, VT 450, PEEP 5, FiO2 30% Remains off sedation, awaiting for mentation to improve CPAP with PS 8, PEEP of 5, FiO2 30% - patient tolerating Continue daily CPAP trials. Neurology recs appreciated. Cardiology recommendations appreciated. Monitor for tachycardia Monitor hemoglobin Transfuse if less than 7.0 g/dL. Remains off pressors Hemodynamically stable Continue antibiotics Continue antifungal Monitor blood pressure Protonix for GI ppx Clinimix for nutritional support Recommend LTAC evaluation vs. trach/PEG vs. compassionate extubation. Labs and imaging reviewed. Plan: s/p intubation on mechanical ventilator. AC mode with RR 18, VT 450, PEEP 5, FiO2 30% Titrate FIO2 to keep O2 saturation above 90%. VAP bundle. Daily ABG and CXR while intubated Off sedation Pressors as necessary for hemodynamic support. Titrate to keep MAP greater than 65 mmHg. Patient is s/p pacemaker Cardiology recs appreciated. Continue antibiotics. F/u cultures. Continue antifungal IV steroids Accu-Cheks, ISS PRN. Monitor labs Monitor renal function Monitor electrolytes. Supplement as necessary. Monitor ins and outs. Maintain euvolemia F/u Cardiology recs. GI/DVT prophylaxis. SBT/CORINE Discuss goals of care with family- LTAC evaluation vs. trach/PEG vs. compassionate extubation. Prognosis: Poor given patient's multiple co-morbidities. Condition: Critical Rest of plan per hospitalist and other consultants. A total of 35 minutes of critical care time was spent reviewing the patient record, examining the patient, making a diagnostic and therapeutic plan, discussing this plan with the medical personnel, following up on diagnostic studies and following the patient for clinical stability excluding any and all procedures. At least 50% of this time was spent in direct, [id number] contact. Thank you, YURI Gomez, for allowing me to participate in this patient's care. Further recommendations will depend on the patient's clinical course. Please do not hesitate to contact me if you have any questions or concerns. This medical document was created using an electronic medical record system with [email or web address] system. Although these documentations are being carefully reviewed, there may still be some phonetic and typographical changes. The errors are purely typographical, due to imperfection on the software program, and do not reflect any compromise in the patient's medical care. Dietary Evaluation Review Comments: 1) TF Jevity 1.2Cal @ 55 ml/hr. x 24hr along with Pro-stat 1 pk daily. Start @ 20ml/hr, increase 10ml/hr Q4H until goal is reached. TF @ goal volume provides 1684 kcal (100% energy needs), 88 gm protein (100% protein needs), 1065 ml free water. 2) Water flush 100ml Q4H if allowed, adjust PRN 3) Advance to cardiac diet as medically feasible 4) Monitor NPO status, lab values, wt trend, I/O Expected Outcomes/Goals: To meet >75% estimated needs within 7 days Lab values to improve Fu 2-3 days Plan discussed with: Other (CEE Ferraro) Critical Care Time(min): 35 KENNY FROST MD Oct 29, 2024 22:46
[2024-10-30] VITALS (101 sets, daily range): BP systolic 99–118; BP diastolic 52–65; PULSE 55–59; RESP 13–34; TEMP 96.6–99.9; O2SAT 95–100
[2024-10-30 03:29] LABS: Hematocrit 28.9 % (36.0-46.0); Hemoglobin 9.5 g/dL (12.2-16.2); Mean Corpuscular Hemoglobin 29.4 pg (28.0-32.0); Mean Corpuscular Volume 89.1 fL (80.0-100.0); Nucleated Red Blood Cells % 1.0 %
[2024-10-30 03:44] LABS: INR 2.48 (0.9-1.15); Partial Thromboplastin Time 27.9 SEC (24.5-34.5); Prothrombin Time 24.0 sec (9.3-11.8)
[2024-10-30 03:54] LABS: Anion Gap 15 (5-15); BUN/Creatinine Ratio 37.5 (10.0-20.0); Bilirubin, Total 1.0 mg/dL (0.2-1.0); Calcium 8.9 mg/dL (8.7-10.4); Carbon Dioxide 23 mmol/L (20-31); Magnesium 2.4 mg/dL (1.6-2.6)
[2024-10-30 04:00] LABS: Alanine Aminotransferase 571 U/L (7-40); Albumin 3.2 g/dL (3.2-4.8); Alkaline Phosphatase 152 U/L (46-116); Blood Urea Nitrogen 39 mg/dL (9-23); Chloride 110 mmol/L (98-107); Glucose 120 mg/dL (74-106); Potassium 3.1 mmol/L (3.5-5.1); Sodium 148 mmol/L (136-145); Total Protein 5.5 g/dL (5.7-8.2)
--- NOTE | 2024-10-30 05:32 | DVH ---
CHEST RADIOGRAPH Indication: intubated Technique: Single frontal view of the chest was obtained COMPARISON: XY CHEST PORTABLE on DOS: 10/29/24, XY CHEST PORTABLE on DOS: 10/28/24, XY CHEST PORTABLE on DOS: 10/27/24, XY CHEST PORTABLE on DOS: 10/26/24, XY CHEST PORTABLE on DOS: 10/25/24, XY CHEST PORTABL E on DOS: 10/27/24 FINDINGS: Lines and Tubes: Endotracheal tube, enteric catheter, and left chest AICD in satisfactory position Lungs: Congestion Pleura: No effusion. No pneumothorax. Cardiomediastinal contours: Cardiomegaly Bones: Unremarkable IMPRESSION: Lines and tubes in satisfactory position. No significant interval change.
--- NOTE | 2024-10-30 07:28 | DVHPN2 ---
Progress Note - Dictate Date Seen: Oct 30, 2024 Has the PT tested + for MRSA If YES, has PT been informed?: No Medical Necessity Reason Pt with a Central, PICC or Fol: Yes The following are medically ne: PICC Line, Cutler Catheter Reason for cutler catheter: Strict I&O vital signs Vital Sign Date Time Temp Pulse Resp B/P (MAP) Pulse Ox O2 Delivery O2 Flow Rate FiO2 10/30/24 06:45 99.3 55 18 115/64 (81) 100 210.7 10/30/24 06:19 30 10/30/24 06:00 Mechanical Ventilator+ 10/29/24 17:20 30.0 Total Intake and Output 10/29/24 10/29/24 10/30/24 15:00 23:00 07:00 Intake Total 100 ml 153 ml Output Total 600 ml 675 ml Balance -500 ml -522 ml medications Current Medications Medications Dose Ordered Sig/Liliam Route Start Time Stop Time Status Last Admin Dose Admin Midazolam HCl 50 ml @ 1 mls/hr Q24H IV 10/07/24 04:45 10/21/24 07:28 4 MLS/HR Ondansetron HCl 4 mg Q4HP PRN IV 10/07/24 10:00 Nitroglycerin 0.4 mg Q5MINP PRN SL 10/07/24 10:00 Pantoprazole Sodium 40 mg DAILY IV 10/07/24 10:00 10/29/24 08:17 40 MG Mexiletine HCl 150 mg TID GT 10/08/24 22:00 10/30/24 05:32 150 MG Acetaminophen 500 mg Q6HP PRN PO 10/08/24 22:30 10/19/24 03:18 500 MG Enteral Nutritional Formula 1,000 ml 55ML/HR GT 10/09/24 18:45 10/22/24 18:55 1,000 ML Phenylephrine HCl 80 mg/Sodium Chloride 250 ml @ 7.5 mls/hr Q24H IV 10/10/24 09:30 10/25/24 23:02 7.5 MLS/HR Esmolol HCl 250 ml @ 0 mls/hr Q0M IV 10/14/24 10:45 Amino Acids 0 ml @ 0 mls/hr PER PHARMACY IV 10/15/24 18:45 Cancel Dextrose 50 ml UD IV 10/16/24 09:30 Cancel Polyethylene Glycol 17 gm DAILYPRN PRN GT 10/17/24 16:45 10/19/24 05:54 17 GM Hydrocortisone Sodium Succinate 50 mg Q6HR IV 10/19/24 18:00 10/30/24 05:32 50 MG Vancomycin HCl 0 ml @ 0 mls/hr UD IV 10/19/24 14:00 Cancel Vasopressin 20 units/Sodium Chloride 100 ml @ 9 mls/hr Q11H7M IV 10/19/24 15:45 Amino Acid Protein 30 ml DAILY GT 10/22/24 10:00 10/28/24 10:24 30 ML Apixaban 2.5 mg BID PO 10/25/24 10:00 Hold Metoclopramide HCl 5 mg BID IV 10/25/24 10:00 Hold 10/25/24 21:32 5 MG Sodium Chloride 10 ml QSHIFT@10,22 IV 10/26/24 22:00 10/29/24 22:16 10 ML Morphine Sulfate 2 mg Q4HPRN PRN IV 10/28/24 10:30 10/28/24 13:59 2 MG Metoprolol Tartrate 12.5 mg BID PO 10/28/24 22:00 10/29/24 22:17 12.5 MG Potassium Chloride 100 ml @ 50 mls/hr Q2H IV 10/30/24 07:00 10/30/24 10:59 UNV objective General Appearance: no distress HEENT: EOMI, PERRLA, normal external inspect of ears, no icterus, no nasal drainage Neck: no carotid bruit, no jugular venous distention (JVD), no lymphadenopathy Chest: normal thorax Respiratory: Intubated, clear to auscultation, normal air movement Cardiovascular: regular rate and rhythm, no diastolic murmur, no jugular venous distention (JVD), no rub, no systolic murmur Abdominal: soft, no hepatomegaly, no mass, no splenomegaly, no tenderness Genitourinary: grossly normal external Musculoskeletal: no joint tenderness, no swelling Extremities: normal pulses, no calf tenderness, no clubbing, no cyanosis, no edema Skin: no bruising, no jaundice, no rash Neurological: No focal deficit laboratory and microbiology Laboratory Tests 10/30/24 03:05 Test 10/30/24 03:05 Range/Units Serum Glucose 120 H 74-106 mg/dL Problem List Cardiac Arrest with Ventricular Fibrillation Assessment: Patient experienced cardiac arrest with ventricular fibrillation on 10/07/24, witnessed by family members who initiated CPR. EMS found the patient in ventricular fibrillation and administered shock therapy. Rhythm strip analysis confirmed ventricular fibrillation. Patient required intubation and sedation upon ED arrival. Currently admitted to ICU for close observation. Cardiology has been consulted and plans for AICD placement, likely on Tuesday. Infectious disease clearance has been obtained for the AICD procedure, addressing initial concerns of leukocytosis which is now improving. Status post-cardiac arrest. Plan: - Continue ICU monitoring - Proceed with AICD placement as planned (likely Tuesday), cleared by infectious disease. - Maintain intubation and sedation until AICD placement - Continue Heparin drip for paroxysmal atrial fibrillation - Continue Mexitil - DC amiodarone due to transaminitis - added esmolol drip per Cardiology for AFib and added push doses of digoxin Coronary Artery Disease Assessment: Patient with history of 2-vessel CABG (Coronary Artery Bypass Grafting). Surgical intervention previously performed to address significant coronary artery stenosis. Plan: - Continue medical management - Follow up with cardiology for ongoing coronary artery disease management Acute and Chronic Systolic Heart Failure Assessment: Patient has acute and chronic systolic heart failure with severely reduced left ventricular function. Ejection fraction is estimated at 15-20%. RICHIE findings are consistent with severely reduced left ventricular ejection fraction, previously implanted mitral ring, up to moderate mitral stenosis and regurgitation, and moderate aortic insufficiency. Plan: - Continue cardiology consultation - continue IV diuretics (IV Lasix) - Monitor renal function Acute Hypoxic Respiratory Failure Assessment: Patient is currently intubated due to acute hypoxic respiratory failure. Dr. Downey from pulmonology is managing this aspect of care. Plan: - Maintain current intubation as per pulmonology recommendation - Proceed with CPAP trials when deemed appropriate by pulmonology Transaminitis Assessment: Patient has elevated liver function tests, likely secondary to amiodarone use. Cardiology has discontinued amiodarone in response. Plan: - Monitor liver function tests - Amiodarone discontinued as per cardiology Enterobacter PNA Assessment: Sputum culture positive for Enterobacter. Plan: - Continue treatment with Eratapenem to complete 10 days regimen -Infectious disease consult Hemodynamic Support Assessment: Patient requires vasopressor support for hemodynamic stability. Plan: - Continue vasopressin - Continue neosynephrine Paroxysmal a fib -DC amiodarone -continue with heparin gtt Shock liver GI consult, trend liver enzymes, hepatitis panel was negative. Ultrasound of the liver had no acute findings. Assessment/Plan Subjective Patient is awake and alert. Patient was recently extubated and currently on coolmist mask, patient is doing well. Objective Patient was admitted status post cardiac arrest. Patient was seen by cardiology. Patient is status post AICD placement. Patient had bouts of A-fib with RVR and episodes of ventricular tachycardia. Patient had a shock liver with elevated liver enzymes. Flucanazole was discontinued due to risk of hepatotoxicity. Antibiotics were also adjusted for sensitivity of cultures. Plan Continue supplemental O2 and wean down as tolerated. Continue MetaNeb treatments. Obtain swallow eval. PT eval. Monitor neurostatus. Monitor daily labs. Monitor daily CBC. Dietary Evaluation Review Comments: 1) TF Jevity 1.2Cal @ 55 ml/hr. x 24hr along with Pro-stat 1 pk daily. Start @ 20ml/hr, increase 10ml/hr Q4H until goal is reached. TF @ goal volume provides 1684 kcal (100% energy needs), 88 gm protein (100% protein needs), 1065 ml free water. 2) Water flush 100ml Q4H if allowed, adjust PRN 3) Advance to cardiac diet as medically feasible 4) Monitor NPO status, lab values, wt trend, I/O Expected Outcomes/Goals: To meet >75% estimated needs within 7 days Lab values to improve Fu 2-3 days Plan discussed with: Patient, Other BRODIE GARVIN [employer] RE[employer] Oct 30, 2024 07:28
--- NOTE | 2024-10-30 07:30 | DVHPN2 ---
Progress Note - Dictate Date Seen: Oct 30, 2024 Has the PT tested + for MRSA If YES, has PT been informed?: No Medical Necessity Reason Pt with a Central, PICC or Fol: Yes The following are medically ne: PICC Line, Cutler Catheter Reason for cutler catheter: Strict I&O vital signs Vital Sign Date Time Temp Pulse Resp B/P (MAP) Pulse Ox O2 Delivery O2 Flow Rate FiO2 10/30/24 06:45 99.3 55 18 115/64 (81) 100 210.7 10/30/24 06:19 30 10/30/24 06:00 Mechanical Ventilator+ 10/29/24 17:20 30.0 Total Intake and Output 10/29/24 10/29/24 10/30/24 15:00 23:00 07:00 Intake Total 100 ml 153 ml Output Total 600 ml 675 ml Balance -500 ml -522 ml medications Current Medications Medications Dose Ordered Sig/Liliam Route Start Time Stop Time Status Last Admin Dose Admin Midazolam HCl 50 ml @ 1 mls/hr Q24H IV 10/07/24 04:45 10/21/24 07:28 4 MLS/HR Ondansetron HCl 4 mg Q4HP PRN IV 10/07/24 10:00 Nitroglycerin 0.4 mg Q5MINP PRN SL 10/07/24 10:00 Pantoprazole Sodium 40 mg DAILY IV 10/07/24 10:00 10/29/24 08:17 40 MG Mexiletine HCl 150 mg TID GT 10/08/24 22:00 10/30/24 05:32 150 MG Acetaminophen 500 mg Q6HP PRN PO 10/08/24 22:30 10/19/24 03:18 500 MG Enteral Nutritional Formula 1,000 ml 55ML/HR GT 10/09/24 18:45 10/22/24 18:55 1,000 ML Phenylephrine HCl 80 mg/Sodium Chloride 250 ml @ 7.5 mls/hr Q24H IV 10/10/24 09:30 10/25/24 23:02 7.5 MLS/HR Esmolol HCl 250 ml @ 0 mls/hr Q0M IV 10/14/24 10:45 Amino Acids 0 ml @ 0 mls/hr PER PHARMACY IV 10/15/24 18:45 Cancel Dextrose 50 ml UD IV 10/16/24 09:30 Cancel Polyethylene Glycol 17 gm DAILYPRN PRN GT 10/17/24 16:45 10/19/24 05:54 17 GM Piperacillin Sod/ Tazobactam Sod 100 ml @ 25 mls/hr Q8HR IV 10/19/24 14:00 10/30/24 05:32 25 MLS/HR Hydrocortisone Sodium Succinate 50 mg Q6HR IV 10/19/24 18:00 10/30/24 05:32 50 MG Vancomycin HCl 0 ml @ 0 mls/hr UD IV 10/19/24 14:00 Cancel Vasopressin 20 units/Sodium Chloride 100 ml @ 9 mls/hr Q11H7M IV 10/19/24 15:45 Amino Acid Protein 30 ml DAILY GT 10/22/24 10:00 10/28/24 10:24 30 ML Fluconazole 100 ml @ 100 mls/hr DAILY IV 10/22/24 14:00 10/29/24 08:17 100 MLS/HR Apixaban 2.5 mg BID PO 10/25/24 10:00 Hold Metoclopramide HCl 5 mg BID IV 10/25/24 10:00 Hold 10/25/24 21:32 5 MG Sodium Chloride 10 ml QSHIFT@10,22 IV 10/26/24 22:00 10/29/24 22:16 10 ML Morphine Sulfate 2 mg Q4HPRN PRN IV 10/28/24 10:30 10/28/24 13:59 2 MG Metoprolol Tartrate 12.5 mg BID PO 10/28/24 22:00 10/29/24 22:17 12.5 MG Potassium Chloride 100 ml @ 50 mls/hr Q2H IV 10/30/24 07:00 10/30/24 10:59 UNV Levofloxacin/ Dextrose 100 ml @ 100 mls/hr DAILY IV 10/30/24 10:00 UNV laboratory and microbiology Laboratory Tests 10/30/24 03:05 Test 10/30/24 03:05 Range/Units Serum Glucose 120 H 74-106 mg/dL Assessment/Plan Still intubated and in ICU. Off pressure support. Off sedation, still not regaining higher brain function. s/p PRBC transfusion. Eliquis is still pending to start (INR is still above 2) Patient is a 54-year-old female who was brought to the hospital for witnessed syncope. She is intubated and is being managed in ICU. Information was obtained by reviewing the chart and communicating with patient's son (over the phone). Family recognized witnessed syncope and started CPR and called EMS. Reportedly, EMS found the patient in ventricular fibrillation and shocked the patient and brought the patient to the hospital. Patient was intubated in emergency room and transferred to ICU. Patient was on amiodarone drip. Later the patient had ventricular tachycardia (Systane). High sensitive troponin had been minimally/flatly elevated. Presentation was not in favor of acute coronary syndrome. Cardiology is involved for cardiac aspects of care. Intubated. Noncommunicative. No JVD. Mucosa pale. No carotid bruit. Scattered rhonchi in the lungs is heard. Cardiac: Regular, no thrill. Systolic murmur 2/6 in apex is heard. Abdomen is soft. No edema in extremities. Past medical history as per son: Congenital heart disease, status post bypass WBC: 14.5 - 11.9 - 18.8 - 20.0 - 21.2 - 14.3 - 10.3 - 8.9 - 9.2 - 11.1 - 12.1 - 10.8 - 12.0 - 9.9 - 15.4 - 14.8 - 12.1 - 10.5 - 5.8 - 5.3 - 4.2 - 5.8 - 4.1 - 7.0 - 9.3 - 8.3 Hemoglobin: 10.1 - 9.6 - 9.2 - 8.8 - 8.7 - 8.0 - 8.3 - 8.5 - 7.8 - 10.2 - 10.7 - 9.9 - 9.7 - 9.3 - 9.3 - 8.6 - 8.1 - 7.4 - 7.5 - 7.4 - 7.5 - 7.2 - 7.7 - 7.0 - (post PRBC transfusion) 10.4 - 10 - 9.5 Creatinine: 0.95 - 0.93 - 0.87 - 0.83 - 0.83 - 0.76 - 0.68 - 0.72 - 0.79 - 0.76 - 0.80 - 0.84 - 0.61 - 0.65 - 0.74 - 0.64 - 0.73 - 0.82 - 0.88 - 1.03 - 0.99 - 0.85 - 0.87 - 0.79 - 1.12 - 1.15 - 1.04 Potassium: 3.4 - 4.0 - 4.6 - 3.5 - 3.3 - 4.1 - 3.7 - 3.2 - 3.7 - 4.0 - 3.2 - 3.4 - 3.9 - 4.2 - 3.3 - 3.8 - 3.6 - 3.4 - 4.2 - 3.8 - 4.5 - 4.1 - 3.5 - 4.2 - 3.3 - 2.6 - 3.5 - 3.8 - 2.4 - 2.9 - 4.6 - 2.8 - 4.8 - 4.9 - 3.4 - 3.1 Magnesium: 2.0 - 1.6 - 2.0 - 3.0 - 1.5 - 1.9 - 2.1 - 1.8 - 2.0 - 1.9 - 1.9 - 2.6 - 2.0 - 1.8 - 1.6 - 2.0 - 2.2 - 1.9 - 2.3 - 2.2 - 2.2 - 2.1 - 2.1 - 1.9 2.7 - 2.6 - 2.3 - 2.4 Troponin (high sensitive): 141 - 138 - 117 BNP: 457.16 AST/ALT: 32/11 - 19/13 - 538/168 - 293/152 - 131/130 - 78/94 - 68/74 - 48/57 - 27/38 - 15/23 - 20/18 - 23/17 - 29/16 - 27/13 - 34/17 - 73/49 - 41/43 - 30/47 - 30/42 - 29/42 - 17/27 - 160/87 - 900/478 - 986/571 Digoxin level: 2.83 - 1.25 - 0.98 UDS: non-revealing Chest x-ray revealed: Lines and Tubes: Endotracheal tube tip projects approximately 1.4 cm above the level of the tyler. Enteric catheter courses below the lateral of the diaphragm and terminates beyond the inferior margin of the image. Right internal jugular central venous catheter terminates within the distal superior vena cava. Lungs: Moderate diffuse increased prominence of the pulmonary vasculature without evidence of focal consolidation. Pleura: No effusion. No pneumothorax. Cardiomediastinal contours: Cardiomegaly. Bones: Unremarkable IMPRESSION: 1. Cardiomegaly and diffuse increased prominence of the pulmonary vasculature. 2. Lines and tubes as above. Repeat chest x-ray revealed: IMPRESSION: 1. Endotracheal tube tip 1.6 cm above the tyler; consider 2 cm retraction 2. Mild pulmonary vascular congestion. Moderate cardiomegaly. Repeat chest xry revealed: IMPRESSION: Endotracheal tube tip 1.6 cm above the tyler; consider 2 cm retraction Mild pulmonary vascular congestion. Moderate cardiomegaly. Repeat chest xry revealed: IMPRESSION: 1. Stable cardiomegaly, small left pleural effusion and mild diffuse increased prominence of the pulmonary vasculature. 2. Repositioned endotracheal tube as above. Remaining lines and tubes unchanged. Repeat chest xry revealed: IMPRESSION: 1. Cardiomegaly, stable diffuse increased prominence of the pulmonary vasculature and small bilateral pleural effusions. 2. Slight interval advancement of endotracheal tube as above. Remaining lines and tubes unchanged. Repeat chest xry revealed: IMPRESSION: 1. Slight interval decrease in diffuse increased prominence of the pulmonary vasculature. 2. Stable cardiomegaly and small left pleural effusion. 3. Lines and tubes unchanged. Repeat chest xry revealed: IMPRESSION: 1. Cardiomegaly and small left pleural effusion. 2. Lines and tubes unchanged. Repeat chest xry revealed: IMPRESSION: Stable lines and tubes. Similar lung aeration. Repeat chest xry revealed: IMPRESSION: Cardiomegaly and small left pleural effusion. Lines and tubes unchanged. Repeat chest xry revealed: IMPRESSION: Placement of a cardiac pacer, no pneumothorax is seen. Stable lines and tubes. Repeat chest xry revealed: IMPRESSION: 1. Worsening mixed opacities in the right lower lung. No other significant change from the previous study. Stable support devices. Repeat chest xry revealed: Heart is prominent in size with postsurgical changes, median sternotomy wires, and a single lead left cardiac defibrillator. Support lines and tubes appear unchanged in satisfactory in position. No sizable effusion or pneumothorax. Mild pulmonary vascular congestion. No significant interval change. Repeat chest xry revealed: IMPRESSION: 1. No significant change from the previous study. Stable support devices. Similar findings of heart failure including left pleural effusion. Repeat chest xry revealed: IMPRESSION: 1. No significant change from the previous study. Stable support devices. Similar findings of heart failure including trace left pleural effusion. Repeat chest xry revealed: Lines and Tubes: Unchanged. Left anterior chest wall cardiac pacing device. Lungs: Clear Pleura: No effusion. No pneumothorax. Cardiomediastinal contours: Cardiomegaly. Bones: Unremarkable IMPRESSION: 1. Cardiomegaly. 2. Lines and tubes unchanged. Repeat chest xry revealed: IMPRESSION: Lines and tubes in satisfactory position. No significant interval change. Bladder ultrasound revealed: IMPRESSION: 1. Cutler catheter in the bladder in the bladder is decompressed. KUB revealed: IMPRESSION: Nonobstructive bowel gas pattern. Nasogastric tube tip in the stomach. Large stool burden. Repeat KUB revealed: Right lower extremity PICC line with tip projecting over the expected region of the intrahepatic IVC. Nasogastric tube projecting towards the distal stomach. Nonspecific bowel gas pattern. Cardiomegaly and left basilar airspace opacities, incompletely characterized. Atherosclerotic calcification disease. Left upper ext arterial duplex: IMPRESSION: No hemodynamically significant stenosis based on peak systolic velocity criteria. Left lower ext arterial duplex: IMPRESSION: There is no evidence for peripheral vascular insufficiency in the left lower extremity. No significant focal stenosis is identified. Liver Ultrasound revealed: Hepatic steatosis. Hepatomegaly. Cholelithiasis. CT of the head revealed: IMPRESSION: No acute intracranial abnormality. Repeat CT of head revealed: IMPRESSION: No acute intracranial abnormality. Echocardiogram reported: lvef 15-20% dilated LV severe global dysfunction mild RV dysfunction biatrial enlargement mild moderate MAC, moderate mitral regurg mild to moderate aortic regug (images of echo reviewed and questioned presence of mitral ring and also some component (moderate of Mitral stenosis) EKG revealed sinus rhythm Telemetry revealed occasions of atrial fibrillation. There was occasional sustained ventricular tachycardia. EMS tele monitor revealed ventricular fibrillation for which the patient was shocked. Has remained sinus rhythm. Later with A-fib with MVR LHC revealed: Patent RICHMOND to LAD; Patent SVG to obtuse marginal; LVEF of 20% with increased EDP; Proximal disease in LAD/LCX RICHIE was performed: Consistent with severely reduced LVEF. Consistent with previously implanted Mitral ring, Up to moderate Mitral stenosis/Mitral Regurgitation and also Moderate Aortic insufficiency. Patient is a 54-year-old female who presented with witnessed syncope. She was found to have ventricular fibrillation for which was shocked. Later had repeated episode of sustained ventricular tachycardia. Patient has been kept in ICU. Does have baseline history of coronary artery disease for which has had bypass surgery. Left heart catheterization was performed which revealed patent RICHMOND and patent SVG. ACS is not considered at this point. It is of note that the patient's echocardiogram reveals significantly use systolic function. Valvular heart disease is considered. Findings are in favor of previously implanted mitral ring. By reviewing the echo images, component of up to moderate mitral stenosis could not be ruled out. LHC was performed that ruled out any active specific ischemia as an etiology for presentation. Is off Amiodarone for abnormal LFT. Being followed by Nephrology / Pulmonary / Neurology / GI ID. Tele has remained sinus rhythm. Had episode of a-fib with RVR. Was loaded with Digoxin. Dig level was performed at wrong timing (only 5 hours after the last Dig given). Dig toxicity is not considered. Patient is back to normal sinus rhythm. Has good kidney function. Repeat Dig level is acceptable level. s/p ICD implantation by EP Syncope V-fib s/p shock Sustained V-tach Paroxysmal A-fib VHD, s/p Mitral ring Systolic heart failure Abnormal LFT, at a point resolved, later appeared again s/p ICD (Biotronik) implantation by EP (Dr Armstrong) s/p PRBC transfusion for significant anemia Cardiac suggestion for management: Manage in ICU Follow up electrolytes and kidney function test and correct abnormalities Full anticoagulation (a-fib with high CHADS-Vasc score). s/p ICD implantation. As per oral communication by Dr Armstrong (EP), we can change the A/C to Eliquis (will consider it when INR below 2) Off Amio drip (worsened LFT) (personally discussed with EP: Dr Armstrong who advised to stop / not to restart Amiodarone) On Mexiletine If need for pressure support: use Phenyl Ephrine / vasopressin, keep MAP above 65 (for now off pressure support and tolerating) On Metoprolol to decrease risk of Vtach (as patient has ICD with bradycardia protection: may continue metoprolol in case of bradycardia, but hold: if hypotensive) May consider/add Esmolol for PVC/Vtach (if needed) s/p ICD (Biotronik) implantation by EP Off warfarin: Eliquis: 2.5 mg BID (only after INR is below 2.0) s/p PRBC transfusion for anemia Pulmonary Follow up GI follow up for worsening liver function tests Provide previous medical records from reaching out to previous hospitals in [facility]... Further evaluation and management depends on the above and clinical course. A total of 75 minutes was spent reviewing the patient record, examining the patient, making a diagnostic and therapeutic plan, discussing this plan with medical personnel, following up on diagnostic studies and following the patient for clinical stability excluding any and all procedures. At least 50% of this time was spent in direct, [id number] contact. Thank you for allowing me to participate in this patient's care. Further recommendations will depend on patient's clinical course. Please do not hesitate to contact me if you have any questions or concerns. This medical document was created using electronic medical record system with [employer] dictation system. Although this document has been carefully reviewed, there may still be some phonetic and typographical errors. These areas are purely typographical due to the imperfection of the software programs, and do not reflect any compromise in the patient's medical care. Dietary Evaluation Review Comments: 1) TF Jevity 1.2Cal @ 55 ml/hr. x 24hr along with Pro-stat 1 pk daily. Start @ 20ml/hr, increase 10ml/hr Q4H until goal is reached. TF @ goal volume provides 1684 kcal (100% energy needs), 88 gm protein (100% protein needs), 1065 ml free water. 2) Water flush 100ml Q4H if allowed, adjust PRN 3) Advance to cardiac diet as medically feasible 4) Monitor NPO status, lab values, wt trend, I/O Expected Outcomes/Goals: To meet >75% estimated needs within 7 days Lab values to improve Fu 2-3 days Plan discussed with: Other (nurse) CORDELL VERA MD Oct 30, 2024 07:30
--- NOTE | 2024-10-30 08:50 | DVH ---
INDICATION: liver, cbd, gallbladder TECHNIQUE: Multiple real-time sonographic images of the abdomen were obtained. COMPARISON: US BLADDER on DOS: 10/29/24, XY KUB ABDOMEN SINGLE VIEW on DOS: 10/26/24, XY KUB ABDOMEN SIN GLE VIEW on DOS: 10/17/24, US LIVER on DOS: 10/10/24 FINDINGS: The liver is heterogeneous in echogenicity. The liver measures 16cm. No intrahepatic bilia ry ductal dilatation is noted. Trace ascites. Trace right pleural effusion. The right kidney measures 10cm. No hydronephrosis. The pancreas is not well visualized due to obscuration from bowel gas. The visualized portions of the IVC and aorta are grossly unremarkable. IMPRESSION: Hepatic steatosis. Trace right pleural effusion. Trace ascites Gallstones
[2024-10-30 08:52] LABS: Base Excess -1.6 mmol/L (-2.0-3.0)
[2024-10-30] MEDS: ERTAPENEM SOD INJ 1 GM in SODIUM CHL 0.9% 50 ML IV SCH (09:25)
[2024-10-30] MEDS: POTASSIUM CHL 20MEQ/100ML 100 ML IV SCH ×2 (09:25→16:50)
[2024-10-30 10:42] LABS: Base Excess -2.9 mmol/L (-2.0-3.0)
--- NOTE | 2024-10-30 12:22 | DVHPN2 ---
Progress Note - Dictate Date Seen: Oct 30, 2024 Has the PT tested + for MRSA If YES, has PT been informed?: No Medical Necessity Reason Pt with a Central, PICC or Fol: Yes The following are medically ne: PICC Line, Cutler Catheter Reason for cutler catheter: Strict I&O Subjective Ms. Smith is a 54 years old female who was brought to the [facility] on 10/07/2024 with a chief complaint of cardiopulmonary arrest/status post CPR. I have seen and examined the patient, I have discussed with her nurse, she is intubated, awake, she follows verbal commands, socially appropriate, she moves the arms and legs She has tachypnea, otherwise the vitals are fine She received pacemaker insertion on 10/17/2024 Blood culture, 10/09/2024: No growth Blood culture, 10/19/2024: UDS, 10/07/2024: Negative Urinalysis, 10/07/2024: Leukocyte esterase: Negative WBC/HB/PLT/MCV, 10/09/2024: 20/8.8/219/94.6, 10/10/2024: 21.2/8.7/232/92.2 PT/INR/PTT, 10/08/2024: 12.4/1.19/72.7, 10/09/2024: 13.1/1.26/68.9, 10/10/2024: 14.4/2/1.38/35.3 CMP, 10/08/2024: Unremarkable Troponin one high sensitivity, 10/07/2024: 141, 138, 117 TBI/AST/ALT/AP, 10/10/2024: 0.5/538/168/144, 10/11/2024: 0.6/293/199/152, 10/14/2024: 0.8/68/74/124 TG/HDL/LDL/HDL, 10/07/24: 71/66/31/21 EKG 10/10/2024: Atrial fibrillation EKG, 10/15/2024: Atrial fibrillation Echocardiogram, 10/07/2024: lvef 15-20% dilated LV severe global dysfunction mild RV dysfunction biatrial enlargement mild moderate MAC, moderate mitral regurg mild to moderate aortic regug RICHIE, 10/08/2024: 1. Left ventricle: Dilated LV was seen. LVEF was 25%. There was diffuse hypokinesis of left ventricle. 2. Right ventricle: RV was mildly dilated. 3. Left atrium: LA enlarged 4. Right atrium: RA was enlarged. 5. Mitral valve: Mitral was thickened with reduced opening. Moderate Mitral regurgitation was seen. Planinomentry of valve (TTE images also obtained) revealed MVA of 2.1 cm. Mean pressure gradient (obtained from limited TTE images) was 5. Images are consistent with previously implanted Ring in Mitral position. Consistent with up to Moderate Mitral stenosis. . There was no vegetation 6. Left atrial appendage: No evidence of thrombus. 7. Aortic valve: Trileaflet valve. No stenosis. Up to moderate Aortic Insufficiency was seen. There was no vegetation 8. Pulmonic valve: Trivial pulmonic insufficiency. No significant stenosis. 9. Tricuspid valve: Mild tricuspid regurgitation. There was no vegetation 10. Interatrial septum: Negative color flow for right to left shunt was observed. Bubble study was performed: negative for shunt 11. Pericardium: No significant effusion. 12. Thoracic aorta: No significant plaquing. Chest x-ray, 10/27/2024: 1. Cardiomegaly, stable diffuse increased prominence of the pulmonary vasculature and small bilateral pleural effusions. 2. Slight interval advancement of endotracheal tube as above. Remaining lines and tubes unchanged. CT head, 10/07/2024: No acute intracranial abnormality General: the patient is well developed and nourished. No acute distress. Intubated CT head, 10/07/2024: No acute intracranial abnormality. CT head, 10/11/2024: No acute intracranial abnormality vital signs Vital Sign Date Time Temp Pulse Resp B/P (MAP) Pulse Ox O2 Delivery O2 Flow Rate FiO2 10/30/24 12:00 100 10/30/24 11:45 32 10/30/24 10:24 55 114/65 10/30/24 10:00 Mechanical Ventilator+ 30 30 10/30/24 10:00 99.7 211.5 10/29/24 17:20 30.0 Total Intake and Output 10/29/24 10/29/24 10/30/24 15:00 23:00 07:00 Intake Total 100 ml 153 ml Output Total 600 ml 675 ml Balance -500 ml -522 ml medications Current Medications Medications Dose Ordered Sig/Liliam Route Start Time Stop Time Status Last Admin Dose Admin Midazolam HCl 50 ml @ 1 mls/hr Q24H IV 10/07/24 04:45 10/21/24 07:28 4 MLS/HR Ondansetron HCl 4 mg Q4HP PRN IV 10/07/24 10:00 Nitroglycerin 0.4 mg Q5MINP PRN SL 10/07/24 10:00 Pantoprazole Sodium 40 mg DAILY IV 10/07/24 10:00 10/30/24 09:24 40 MG Mexiletine HCl 150 mg TID GT 10/08/24 22:00 10/30/24 05:32 150 MG Acetaminophen 500 mg Q6HP PRN PO 10/08/24 22:30 10/19/24 03:18 500 MG Enteral Nutritional Formula 1,000 ml 55ML/HR GT 10/09/24 18:45 10/22/24 18:55 1,000 ML Phenylephrine HCl 80 mg/Sodium Chloride 250 ml @ 7.5 mls/hr Q24H IV 10/10/24 09:30 10/25/24 23:02 7.5 MLS/HR Esmolol HCl 250 ml @ 0 mls/hr Q0M IV 10/14/24 10:45 Amino Acids 0 ml @ 0 mls/hr PER PHARMACY IV 10/15/24 18:45 Cancel Dextrose 50 ml UD IV 10/16/24 09:30 Cancel Polyethylene Glycol 17 gm DAILYPRN PRN GT 10/17/24 16:45 10/19/24 05:54 17 GM Hydrocortisone Sodium Succinate 50 mg Q6HR IV 10/19/24 18:00 10/30/24 05:32 50 MG Vancomycin HCl 0 ml @ 0 mls/hr UD IV 10/19/24 14:00 Cancel Vasopressin 20 units/Sodium Chloride 100 ml @ 9 mls/hr Q11H7M IV 10/19/24 15:45 Amino Acid Protein 30 ml DAILY GT 10/22/24 10:00 10/28/24 10:24 30 ML Apixaban 2.5 mg BID PO 10/25/24 10:00 Hold Metoclopramide HCl 5 mg BID IV 10/25/24 10:00 Hold 10/25/24 21:32 5 MG Sodium Chloride 10 ml QSHIFT@10,22 IV 10/26/24 22:00 10/30/24 09:25 10 ML Morphine Sulfate 2 mg Q4HPRN PRN IV 10/28/24 10:30 10/28/24 13:59 2 MG Metoprolol Tartrate 12.5 mg BID PO 10/28/24 22:00 10/30/24 09:24 12.5 MG Ertapenem 1 gm/ Sodium Chloride 50 ml @ 100 mls/hr DAILY IV 10/30/24 10:00 10/30/24 09:25 100 MLS/HR objective The patient is well-nourished and well-developed with no distress. The patient is intubated MENTAL STATUS: Subjective CRANIAL NERVES: Pupils are equal, round and reactive. EOMs full and conjugate. Facial sensation intact in all three divisions bilaterally. Mandibular strength intact. Facial muscles symmetrical and strength intact. SENSATION: Okay to pinprick and light touch MOTOR: Normal tone in the upper and lower extremity. Normal muscle bulk. No fasciculations. She move the arms and legs REFLEXES: Deep tendon reflexes are symmetrical. No pathological reflexes. CEREBELLAR/COORDINATION: Deferred GAIT/STATION: deferred. laboratory and microbiology Laboratory Tests 10/30/24 03:05 Test 10/30/24 03:05 Range/Units Serum Glucose 120 H 74-106 mg/dL Problem List Cardiopulmonary arrest Status post CPR Metabolic encephalopathy Hypoxic encephalopathy Congestive heart failure Leukocytosis/sepsis/septic shock Respiratory failure Elevated liver function tests AFib S/P pacemaker insertion on 10/17/2024 Assessment/Plan Monitoring Supportive treatment ICU care Stabilize vitals Respiratory support/vent management Hold off Lipitor (elevated liver function tests), LDL (31) (home medications included Lipitor 40 mg daily) DVT prophylaxis GI prophylaxis Cardiology on case Pulmonology on case Nephrology on case Consult GI Re: Elevated liver function tests Need more history Will try to extubate her This medical document was created using an electronic medical record system with [employer] dictation system. Although this document has been carefully reviewed, there may still be some phonetic and typographical errors. These areas are purely typographical due to imperfections of the software programs, and do not reflect any compromise in the patient's medical care. Prognosis guarded Dietary Evaluation Review Comments: 1) TF Jevity 1.2Cal @ 55 ml/hr. x 24hr along with Pro-stat 1 pk daily. Start @ 20ml/hr, increase 10ml/hr Q4H until goal is reached. TF @ goal volume provides 1684 kcal (100% energy needs), 88 gm protein (100% protein needs), 1065 ml free water. 2) Water flush 100ml Q4H if allowed, adjust PRN 3) Advance to cardiac diet as medically feasible 4) Monitor NPO status, lab values, wt trend, I/O Expected Outcomes/Goals: To meet >75% estimated needs within 7 days Lab values to improve Fu 2-3 days Plan discussed with: Other CAROLINE ROBB MD Oct 30, 2024 12:22
--- NOTE | 2024-10-30 14:19 | DVHPN2 ---
Progress Note Date Seen: Oct 30, 2024 Resident Creating Document: ETHAN SWAN RESIDENT Has the PT tested + for MRSA If YES, has PT been informed?: No Medical Necessity Reason Pt with a Central, PICC or Fol: Yes The following are medically ne: PICC Line, Cutler Catheter Reason for cutler catheter: Strict I&O Subjective Review of Systems Patient seen and examined at bedside Currently on CPAP trial Significant up trending LFTs with AST 986, ALT 571, ALP 152 Ultrasound shows hepatic steatosis, trace ascites and gallstones. Overnight T-max 99.3 Objective vital signs Vital Sign Date Time Temp Pulse Resp B/P (MAP) Pulse Ox O2 Delivery O2 Flow Rate FiO2 10/30/24 14:00 99.9 55 24 109/57 (74) 98 211.8 10/30/24 14:00 Cool Aerosol 8 35 35 Total Intake and Output 10/29/24 10/29/24 10/30/24 15:00 23:00 07:00 Intake Total 100 ml 153 ml Output Total 600 ml 675 ml Balance -500 ml -522 ml medications Current Medications Medications Dose Ordered Sig/Liliam Route Start Time Stop Time Status Last Admin Dose Admin Midazolam HCl 50 ml @ 1 mls/hr Q24H IV 10/07/24 04:45 10/21/24 07:28 4 MLS/HR Ondansetron HCl 4 mg Q4HP PRN IV 10/07/24 10:00 Nitroglycerin 0.4 mg Q5MINP PRN SL 10/07/24 10:00 Pantoprazole Sodium 40 mg DAILY IV 10/07/24 10:00 10/30/24 09:24 40 MG Mexiletine HCl 150 mg TID GT 10/08/24 22:00 10/30/24 05:32 150 MG Acetaminophen 500 mg Q6HP PRN PO 10/08/24 22:30 10/19/24 03:18 500 MG Enteral Nutritional Formula 1,000 ml 55ML/HR GT 10/09/24 18:45 10/22/24 18:55 1,000 ML Phenylephrine HCl 80 mg/Sodium Chloride 250 ml @ 7.5 mls/hr Q24H IV 10/10/24 09:30 10/25/24 23:02 7.5 MLS/HR Esmolol HCl 250 ml @ 0 mls/hr Q0M IV 10/14/24 10:45 Amino Acids 0 ml @ 0 mls/hr PER PHARMACY IV 10/15/24 18:45 Cancel Dextrose 50 ml UD IV 10/16/24 09:30 Cancel Polyethylene Glycol 17 gm DAILYPRN PRN GT 10/17/24 16:45 10/19/24 05:54 17 GM Hydrocortisone Sodium Succinate 50 mg Q6HR IV 10/19/24 18:00 10/30/24 14:14 50 MG Vancomycin HCl 0 ml @ 0 mls/hr UD IV 10/19/24 14:00 Cancel Vasopressin 20 units/Sodium Chloride 100 ml @ 9 mls/hr Q11H7M IV 10/19/24 15:45 Amino Acid Protein 30 ml DAILY GT 10/22/24 10:00 10/28/24 10:24 30 ML Apixaban 2.5 mg BID PO 10/25/24 10:00 Hold Metoclopramide HCl 5 mg BID IV 10/25/24 10:00 Hold 10/25/24 21:32 5 MG Sodium Chloride 10 ml QSHIFT@10,22 IV 10/26/24 22:00 10/30/24 09:25 10 ML Morphine Sulfate 2 mg Q4HPRN PRN IV 10/28/24 10:30 10/28/24 13:59 2 MG Metoprolol Tartrate 12.5 mg BID PO 10/28/24 22:00 10/30/24 09:24 12.5 MG Ertapenem 1 gm/ Sodium Chloride 50 ml @ 100 mls/hr DAILY IV 10/30/24 10:00 10/30/24 09:25 100 MLS/HR Examination General Appearance: Sedated, intubated on mechanical ventilation Head Exam: Normal inspection. Constricted equal and reactive pupils Neck Exam: Normal inspection. Non-tender. Normal alignment Pulmonary/Respiratory: Chest non-tender. Trace crackles Peripheral Pulses 2+ Pedal (R). 2+ Pedal (L) Abdominal Exam: Normal bowel sounds. Soft. Right upper quadrant tenderness to deep palpation noted while patient remained on CPAP trial. Skin Exam: Normal inspection. Normal color. Warm. Dry laboratory and microbiology Laboratory Tests 10/30/24 03:05 Test 10/30/24 03:05 Range/Units Serum Glucose 120 H 74-106 mg/dL Microbiology Date/Time Source Procedure Growth Status 10/20/24 04:00 Sputum Gram Stain - Final Complete 10/20/24 04:00 Respiratory Culture - Final Enterobacter cloacae Yeast, not Ilda albicans Complete 10/20/24 01:03 Urine - Cutler [place] Urine Culture - Final Yeast, not Ilda albicans Complete 10/19/24 13:02 Blood Blood Culture - Final NO GROWTH AFTER 5 DAYS OF INCUBATION. Complete 10/07/24 16:50 Nose MRSA Screen - Final Complete Labs and/or images reviewed: Labs reviewed by me, Image(s) reviewed by me Problem List/Assessment/Plan Problem List/Assessment/Plan Possible acute cholecystitis Ventricular fibrillation S/p cardiopulmonary arrest with shock Heart failure with reduced ejection fraction 15-20% Metabolic versus hypoxic encephalopathy Acute hepatocellular injury likely shock liver Cholelithiasis without acute inflammation Nonalcoholic fatty liver disease with steatohepatitis Community-acquired pneumonia growing Enterobacter Plan: Consider elective cholecystectomy or cholecystostomy tube Surgical consult Hemoglobin stable, transfuse if HB 7 or less Continue tube feedings Serum JAIDEN Swallow eval after extubation Decreased metoclopramide to 5 mg IV b.i.d. Thank you so much for the opportunity to consult on your patient. GI team will follow the patient. In case of any questions or concerns please feel free to reach out. Plan discussed with Dr. Anglin Plan discussed with: Other (RN) Dietary Evaluation Review Comments: 1) TF Jevity 1.2Cal @ 55 ml/hr. x 24hr along with Pro-stat 1 pk daily. Start @ 20ml/hr, increase 10ml/hr Q4H until goal is reached. TF @ goal volume provides 1684 kcal (100% energy needs), 88 gm protein (100% protein needs), 1065 ml free water. 2) Water flush 100ml Q4H if allowed, adjust PRN 3) Advance to cardiac diet as medically feasible 4) Monitor NPO status, lab values, wt trend, I/O Expected Outcomes/Goals: To meet >75% estimated needs within 7 days Lab values to improve Fu 2-3 days ETHAN SWAN RESIDENT Oct 30, 2024 14:19
--- NOTE | 2024-10-30 23:36 | DVHPN2 ---
Progress Note - Dictate Date Seen: Oct 30, 2024 Has the PT tested + for MRSA If YES, has PT been informed?: No Medical Necessity Reason Pt with a Central, PICC or Fol: Yes The following are medically ne: PICC Line, Cutler Catheter Reason for cutler catheter: Strict I&O Subjective Patient seen and examined at bedside. S/p extubation, on supplemental oxygen Overnight events reviewed vital signs Vital Sign Date Time Temp Pulse Resp B/P (MAP) Pulse Ox O2 Delivery O2 Flow Rate FiO2 10/30/24 22:30 55 30 108/53 (71) 98 10/30/24 22:00 Nasal Cannula* 2 28 10/30/24 20:00 96.6 96.6 Total Intake and Output 10/29/24 10/29/24 10/30/24 15:00 23:00 07:00 Intake Total 100 ml 153 ml Output Total 600 ml 675 ml Balance -500 ml -522 ml medications Current Medications Medications Dose Ordered Sig/Liliam Route Start Time Stop Time Status Last Admin Dose Admin Midazolam HCl 50 ml @ 1 mls/hr Q24H IV 10/07/24 04:45 10/21/24 07:28 4 MLS/HR Ondansetron HCl 4 mg Q4HP PRN IV 10/07/24 10:00 Nitroglycerin 0.4 mg Q5MINP PRN SL 10/07/24 10:00 Pantoprazole Sodium 40 mg DAILY IV 10/07/24 10:00 10/30/24 09:24 40 MG Mexiletine HCl 150 mg TID GT 10/08/24 22:00 10/30/24 05:32 150 MG Acetaminophen 500 mg Q6HP PRN PO 10/08/24 22:30 10/19/24 03:18 500 MG Enteral Nutritional Formula 1,000 ml 55ML/HR GT 10/09/24 18:45 10/22/24 18:55 1,000 ML Phenylephrine HCl 80 mg/Sodium Chloride 250 ml @ 7.5 mls/hr Q24H IV 10/10/24 09:30 10/25/24 23:02 7.5 MLS/HR Esmolol HCl 250 ml @ 0 mls/hr Q0M IV 10/14/24 10:45 Amino Acids 0 ml @ 0 mls/hr PER PHARMACY IV 10/15/24 18:45 Cancel Dextrose 50 ml UD IV 10/16/24 09:30 Cancel Polyethylene Glycol 17 gm DAILYPRN PRN GT 10/17/24 16:45 10/19/24 05:54 17 GM Hydrocortisone Sodium Succinate 50 mg Q6HR IV 10/19/24 18:00 10/30/24 16:50 50 MG Vancomycin HCl 0 ml @ 0 mls/hr UD IV 10/19/24 14:00 Cancel Vasopressin 20 units/Sodium Chloride 100 ml @ 9 mls/hr Q11H7M IV 10/19/24 15:45 Amino Acid Protein 30 ml DAILY GT 10/22/24 10:00 10/28/24 10:24 30 ML Apixaban 2.5 mg BID PO 10/25/24 10:00 Hold Metoclopramide HCl 5 mg BID IV 10/25/24 10:00 Hold 10/25/24 21:32 5 MG Sodium Chloride 10 ml QSHIFT@10,22 IV 10/26/24 22:00 10/30/24 22:00 10 ML Morphine Sulfate 2 mg Q4HPRN PRN IV 10/28/24 10:30 10/28/24 13:59 2 MG Metoprolol Tartrate 12.5 mg BID PO 10/28/24 22:00 10/30/24 09:24 12.5 MG Ertapenem 1 gm/ Sodium Chloride 50 ml @ 100 mls/hr DAILY IV 10/30/24 10:00 10/30/24 09:25 100 MLS/HR objective Gen.: Patient lying in bed in no apparent distress. On supplemental oxygen. Head: Normocephalic, atraumatic. Eyes: EOMI/PERRLA. Ears: Normal hearing. Normal anatomy. Neck/trachea: Trachea midline, supple. Nose: Normal external anatomy. Mouth: Moist mucous membranes. Chest: Decreased air entry bilaterally. No wheezing or rhonchi. Cardiovascular: Positive S1, positive S2. Regular rate and rhythm. Abdomen: Positive bowel sounds in all 4 quadrants. Soft, non-tender, non- distended. : Deferred. Rectal: Deferred. Skin: Warm, dry. Intact. Extremities: 2+ radial pulses bilaterally. No lower extremity edema. Neuro: Awake, alert, oriented x3. No gross motor or sensory deficits. Cranial nerves II through XII intact. Gait not assessed. laboratory and microbiology Laboratory Tests 10/30/24 14:56 10/30/24 03:05 Test 10/30/24 03:05 Range/Units Serum Glucose 120 H 74-106 mg/dL Assessment/Plan Impression: Acute hypoxic respiratory failure On mechanical ventilator s/p cardiac arrest Ventricular tachycardia CPR <5 min Elevated troponin Atelectasis Events: Patient tolerated CPAP today Weaning parameters and ABG reviewed. Patient was extubated uneventfully to aerosol Coolmist Currently on supplemental oxygen Taper O2 as tolerated Remains off pressors Hemodynamically stable Continue antibiotics Continue antifungal Monitor blood pressure Cardiology recommendations appreciated. Monitor hemoglobin Transfuse if less than 7.0 g/dL. Swallow eval Physical therapy eval. Monitor labs. Protonix for GI ppx Clinimix for nutritional support Labs and imaging reviewed. Plan: S/p extubation On supplemental oxygen Titrate to keep O2 sats above 90%. Pressors as necessary for hemodynamic support. Titrate to keep MAP greater than 65 mmHg. Patient is s/p pacemaker on 10/17/24 Cardiology recs appreciated. Continue antibiotics. F/u cultures. Continue antifungal IV steroids Accu-Cheks, ISS PRN. Monitor labs Monitor renal function Monitor electrolytes. Supplement as necessary. Monitor ins and outs. Maintain euvolemia F/u Cardiology recs. GI/DVT prophylaxis. Prognosis: Poor given patient's multiple co-morbidities. Condition: Critical Rest of plan per hospitalist and other consultants. A total of 35 minutes of critical care time was spent reviewing the patient record, examining the patient, making a diagnostic and therapeutic plan, discussing this plan with the medical personnel, following up on diagnostic studies and following the patient for clinical stability excluding any and all procedures. At least 50% of this time was spent in direct, [id number] contact. Thank you, YURI Gomez, for allowing me to participate in this patient's care. Further recommendations will depend on the patient's clinical course. Please do not hesitate to contact me if you have any questions or concerns. This medical document was created using an electronic medical record system with [employer] dictation system. Although these documentations are being carefully reviewed, there may still be some phonetic and typographical changes. The errors are purely typographical, due to imperfection on the software program, and do not reflect any compromise in the patient's medical care. Dietary Evaluation Review Comments: 1) TF Jevity 1.2Cal @ 55 ml/hr. x 24hr along with Pro-stat 1 pk daily. Start @ 20ml/hr, increase 10ml/hr Q4H until goal is reached. TF @ goal volume provides 1684 kcal (100% energy needs), 88 gm protein (100% protein needs), 1065 ml free water. 2) Water flush 100ml Q4H if allowed, adjust PRN 3) Advance to cardiac diet as medically feasible 4) Monitor NPO status, lab values, wt trend, I/O Expected Outcomes/Goals: To meet >75% estimated needs within 7 days Lab values to improve Fu 2-3 days Plan discussed with: Patient, Other (CEE Youngblood) KENNY FROST MD Oct 30, 2024 23:36
[2024-10-31] VITALS (66 sets, daily range): BP systolic 105–119; BP diastolic 48–86; PULSE 55–57; RESP 12–34; TEMP 97.1–97.9; O2SAT 85–100
[2024-10-31 03:39] LABS: Hematocrit 30.9 % (36.0-46.0); Hemoglobin 10.0 g/dL (12.2-16.2); Mean Corpuscular Hemoglobin 29.0 pg (28.0-32.0); Mean Corpuscular Volume 89.1 fL (80.0-100.0); Nucleated Red Blood Cells % 2.0 %
[2024-10-31 03:46] LABS: INR 2.96 (0.9-1.15); Prothrombin Time 28.2 sec (9.3-11.8)
[2024-10-31 04:05] LABS: Anion Gap 12 (5-15); BUN/Creatinine Ratio 41.7 (10.0-20.0); Calcium 8.8 mg/dL (8.7-10.4); Carbon Dioxide 23 mmol/L (20-31); Glucose 100 mg/dL (74-106); Magnesium 2.5 mg/dL (1.6-2.6); Potassium 4.4 mmol/L (3.5-5.1)
[2024-10-31 04:06] LABS: Bilirubin, Total 0.9 mg/dL (0.2-1.0)
[2024-10-31 04:13] LABS: Alanine Aminotransferase 436 U/L (7-40); Albumin 3.1 g/dL (3.2-4.8); Alkaline Phosphatase 182 U/L (46-116); Blood Urea Nitrogen 40 mg/dL (9-23); Chloride 114 mmol/L (98-107); Sodium 149 mmol/L (136-145); Total Protein 5.6 g/dL (5.7-8.2)
--- NOTE | 2024-10-31 08:21 | DVHPN2 ---
Progress Note - Dictate Date Seen: Oct 31, 2024 Has the PT tested + for MRSA If YES, has PT been informed?: No Medical Necessity Reason Pt with a Central, PICC or Fol: Yes The following are medically ne: PICC Line, Cutler Catheter Reason for cutler catheter: Strict I&O vital signs Vital Sign Date Time Temp Pulse Resp B/P (MAP) Pulse Ox O2 Delivery O2 Flow Rate FiO2 10/31/24 06:45 55 32 116/53 (74) 96 10/31/24 06:00 Nasal Cannula* 2 28 10/31/24 04:00 97.4 97.4 Total Intake and Output 10/30/24 10/30/24 10/31/24 15:00 23:00 07:00 Intake Total 350 ml 200 ml 0 ml Output Total 150 ml 200 ml Balance 350 ml 50 ml -200 ml medications Current Medications Medications Dose Ordered Sig/Liliam Route Start Time Stop Time Status Last Admin Dose Admin Midazolam HCl 50 ml @ 1 mls/hr Q24H IV 10/07/24 04:45 10/21/24 07:28 4 MLS/HR Ondansetron HCl 4 mg Q4HP PRN IV 10/07/24 10:00 Nitroglycerin 0.4 mg Q5MINP PRN SL 10/07/24 10:00 Pantoprazole Sodium 40 mg DAILY IV 10/07/24 10:00 10/30/24 09:24 40 MG Mexiletine HCl 150 mg TID GT 10/08/24 22:00 10/30/24 05:32 150 MG Acetaminophen 500 mg Q6HP PRN PO 10/08/24 22:30 10/19/24 03:18 500 MG Enteral Nutritional Formula 1,000 ml 55ML/HR GT 10/09/24 18:45 10/22/24 18:55 1,000 ML Phenylephrine HCl 80 mg/Sodium Chloride 250 ml @ 7.5 mls/hr Q24H IV 10/10/24 09:30 10/25/24 23:02 7.5 MLS/HR Esmolol HCl 250 ml @ 0 mls/hr Q0M IV 10/14/24 10:45 Amino Acids 0 ml @ 0 mls/hr PER PHARMACY IV 10/15/24 18:45 Cancel Dextrose 50 ml UD IV 10/16/24 09:30 Cancel Polyethylene Glycol 17 gm DAILYPRN PRN GT 10/17/24 16:45 10/19/24 05:54 17 GM Hydrocortisone Sodium Succinate 50 mg Q6HR IV 10/19/24 18:00 10/31/24 06:04 50 MG Vancomycin HCl 0 ml @ 0 mls/hr UD IV 10/19/24 14:00 Cancel Vasopressin 20 units/Sodium Chloride 100 ml @ 9 mls/hr Q11H7M IV 10/19/24 15:45 Amino Acid Protein 30 ml DAILY GT 10/22/24 10:00 10/28/24 10:24 30 ML Apixaban 2.5 mg BID PO 10/25/24 10:00 Hold Metoclopramide HCl 5 mg BID IV 10/25/24 10:00 Hold 10/25/24 21:32 5 MG Sodium Chloride 10 ml QSHIFT@10,22 IV 10/26/24 22:00 10/30/24 22:00 10 ML Morphine Sulfate 2 mg Q4HPRN PRN IV 10/28/24 10:30 10/28/24 13:59 2 MG Metoprolol Tartrate 12.5 mg BID PO 10/28/24 22:00 10/30/24 09:24 12.5 MG Ertapenem 1 gm/ Sodium Chloride 50 ml @ 100 mls/hr DAILY IV 10/30/24 10:00 10/30/24 09:25 100 MLS/HR laboratory and microbiology Laboratory Tests 10/31/24 03:04 Test 10/31/24 03:04 Range/Units Serum Glucose 100 74-106 mg/dL Assessment/Plan Still in ICU. Extubated. Off pressure support. Awaiting swallowing evaluation. Does not talk. Alert and oriented to self only. Eliquis is still pending to start (INR is still above 2) Patient is a 54-year-old female who was brought to the hospital for witnessed syncope. She is intubated and is being managed in ICU. Information was obtained by reviewing the chart and communicating with patient's son (over the phone). Family recognized witnessed syncope and started CPR and called EMS. Reportedly, EMS found the patient in ventricular fibrillation and shocked the patient and brought the patient to the hospital. Patient was intubated in emergency room and transferred to ICU. Patient was on amiodarone drip. Later the patient had ventricular tachycardia (Systane). High sensitive troponin had been minimally/flatly elevated. Presentation was not in favor of acute coronary syndrome. Cardiology is involved for cardiac aspects of care. Extubated. Does not talk. Alert and oriented to self only. No JVD. Mucosa pale. No carotid bruit. Scattered rhonchi in the lungs is heard. Cardiac: Regular, no thrill. Systolic murmur 2/6 in apex is heard. Abdomen is soft. No edema in extremities. Past medical history as per son: Congenital heart disease, status post bypass WBC: 14.5 - 11.9 - 18.8 - 20.0 - 21.2 - 14.3 - 10.3 - 8.9 - 9.2 - 11.1 - 12.1 - 10.8 - 12.0 - 9.9 - 15.4 - 14.8 - 12.1 - 10.5 - 5.8 - 5.3 - 4.2 - 5.8 - 4.1 - 7.0 - 9.3 - 8.3 - 11.5 Hemoglobin: 10.1 - 9.6 - 9.2 - 8.8 - 8.7 - 8.0 - 8.3 - 8.5 - 7.8 - 10.2 - 10.7 - 9.9 - 9.7 - 9.3 - 9.3 - 8.6 - 8.1 - 7.4 - 7.5 - 7.4 - 7.5 - 7.2 - 7.7 - 7.0 - (post PRBC transfusion) 10.4 - 10 - 9.5 - 10.0 Creatinine: 0.95 - 0.93 - 0.87 - 0.83 - 0.83 - 0.76 - 0.68 - 0.72 - 0.79 - 0.76 - 0.80 - 0.84 - 0.61 - 0.65 - 0.74 - 0.64 - 0.73 - 0.82 - 0.88 - 1.03 - 0.99 - 0.85 - 0.87 - 0.79 - 1.12 - 1.15 - 1.04 - 0.96 Potassium: 3.4 - 4.0 - 4.6 - 3.5 - 3.3 - 4.1 - 3.7 - 3.2 - 3.7 - 4.0 - 3.2 - 3.4 - 3.9 - 4.2 - 3.3 - 3.8 - 3.6 - 3.4 - 4.2 - 3.8 - 4.5 - 4.1 - 3.5 - 4.2 - 3.3 - 2.6 - 3.5 - 3.8 - 2.4 - 2.9 - 4.6 - 2.8 - 4.8 - 4.9 - 3.4 - 3.1 - 3.7 - 4.4 Magnesium: 2.0 - 1.6 - 2.0 - 3.0 - 1.5 - 1.9 - 2.1 - 1.8 - 2.0 - 1.9 - 1.9 - 2.6 - 2.0 - 1.8 - 1.6 - 2.0 - 2.2 - 1.9 - 2.3 - 2.2 - 2.2 - 2.1 - 2.1 - 1.9 2.7 - 2.6 - 2.3 - 2.4 - 2.5 Troponin (high sensitive): 141 - 138 - 117 BNP: 457.16 - 1073.91 AST/ALT: 32/11 - 19/13 - 538/168 - 293/152 - 131/130 - 78/94 - 68/74 - 48/57 - 27/38 - 15/23 - 20/18 - 23/17 - 29/16 - 27/13 - 34/17 - 73/49 - 41/43 - 30/47 - 30/42 - 29/42 - 17/27 - 160/87 - 900/478 - 986/571 - 382/436 Digoxin level: 2.83 - 1.25 - 0.98 UDS: non-revealing Chest x-ray revealed: Lines and Tubes: Endotracheal tube tip projects approximately 1.4 cm above the level of the tyler. Enteric catheter courses below the lateral of the diaphragm and terminates beyond the inferior margin of the image. Right internal jugular central venous catheter terminates within the distal superior vena cava. Lungs: Moderate diffuse increased prominence of the pulmonary vasculature without evidence of focal consolidation. Pleura: No effusion. No pneumothorax. Cardiomediastinal contours: Cardiomegaly. Bones: Unremarkable IMPRESSION: 1. Cardiomegaly and diffuse increased prominence of the pulmonary vasculature. 2. Lines and tubes as above. Repeat chest x-ray revealed: IMPRESSION: 1. Endotracheal tube tip 1.6 cm above the tyler; consider 2 cm retraction 2. Mild pulmonary vascular congestion. Moderate cardiomegaly. Repeat chest xry revealed: IMPRESSION: Endotracheal tube tip 1.6 cm above the tyler; consider 2 cm retraction Mild pulmonary vascular congestion. Moderate cardiomegaly. Repeat chest xry revealed: IMPRESSION: 1. Stable cardiomegaly, small left pleural effusion and mild diffuse increased prominence of the pulmonary vasculature. 2. Repositioned endotracheal tube as above. Remaining lines and tubes unchanged. Repeat chest xry revealed: IMPRESSION: 1. Cardiomegaly, stable diffuse increased prominence of the pulmonary vasculature and small bilateral pleural effusions. 2. Slight interval advancement of endotracheal tube as above. Remaining lines and tubes unchanged. Repeat chest xry revealed: IMPRESSION: 1. Slight interval decrease in diffuse increased prominence of the pulmonary vasculature. 2. Stable cardiomegaly and small left pleural effusion. 3. Lines and tubes unchanged. Repeat chest xry revealed: IMPRESSION: 1. Cardiomegaly and small left pleural effusion. 2. Lines and tubes unchanged. Repeat chest xry revealed: IMPRESSION: Stable lines and tubes. Similar lung aeration. Repeat chest xry revealed: IMPRESSION: Cardiomegaly and small left pleural effusion. Lines and tubes unchanged. Repeat chest xry revealed: IMPRESSION: Placement of a cardiac pacer, no pneumothorax is seen. Stable lines and tubes. Repeat chest xry revealed: IMPRESSION: 1. Worsening mixed opacities in the right lower lung. No other significant change from the previous study. Stable support devices. Repeat chest xry revealed: Heart is prominent in size with postsurgical changes, median sternotomy wires, and a single lead left cardiac defibrillator. Support lines and tubes appear unchanged in satisfactory in position. No sizable effusion or pneumothorax. Mild pulmonary vascular congestion. No significant interval change. Repeat chest xry revealed: IMPRESSION: 1. No significant change from the previous study. Stable support devices. Similar findings of heart failure including left pleural effusion. Repeat chest xry revealed: IMPRESSION: 1. No significant change from the previous study. Stable support devices. Similar findings of heart failure including trace left pleural effusion. Repeat chest xry revealed: Lines and Tubes: Unchanged. Left anterior chest wall cardiac pacing device. Lungs: Clear Pleura: No effusion. No pneumothorax. Cardiomediastinal contours: Cardiomegaly. Bones: Unremarkable IMPRESSION: 1. Cardiomegaly. 2. Lines and tubes unchanged. Repeat chest xry revealed: IMPRESSION: Lines and tubes in satisfactory position. No significant interval change. Liver Ultrasound revealed: Hepatic steatosis. Trace right pleural effusion. Trace ascites Gallstones Bladder ultrasound revealed: IMPRESSION: 1. Cutler catheter in the bladder in the bladder is decompressed. KUB revealed: IMPRESSION: Nonobstructive bowel gas pattern. Nasogastric tube tip in the stomach. Large stool burden. Repeat KUB revealed: Right lower extremity PICC line with tip projecting over the expected region of the intrahepatic IVC. Nasogastric tube projecting towards the distal stomach. Nonspecific bowel gas pattern. Cardiomegaly and left basilar airspace opacities, incompletely characterized. Atherosclerotic calcification disease. Left upper ext arterial duplex: IMPRESSION: No hemodynamically significant stenosis based on peak systolic velocity criteria. Left lower ext arterial duplex: IMPRESSION: There is no evidence for peripheral vascular insufficiency in the left lower extremity. No significant focal stenosis is identified. Liver Ultrasound revealed: Hepatic steatosis. Hepatomegaly. Cholelithiasis. CT of the head revealed: IMPRESSION: No acute intracranial abnormality. Repeat CT of head revealed: IMPRESSION: No acute intracranial abnormality. Echocardiogram reported: lvef 15-20% dilated LV severe global dysfunction mild RV dysfunction biatrial enlargement mild moderate MAC, moderate mitral regurg mild to moderate aortic regug (images of echo reviewed and questioned presence of mitral ring and also some component (moderate of Mitral stenosis) EKG revealed sinus rhythm Telemetry revealed occasions of atrial fibrillation. There was occasional sustained ventricular tachycardia. EMS tele monitor revealed ventricular fibrillation for which the patient was shocked. Has remained sinus rhythm. Later with A-fib with MVR LHC revealed: Patent RICHMOND to LAD; Patent SVG to obtuse marginal; LVEF of 20% with increased EDP; Proximal disease in LAD/LCX RICHIE was performed: Consistent with severely reduced LVEF. Consistent with previously implanted Mitral ring, Up to moderate Mitral stenosis/Mitral Regurgitation and also Moderate Aortic insufficiency. Patient is a 54-year-old female who presented with witnessed syncope. She was found to have ventricular fibrillation for which was shocked. Later had repeated episode of sustained ventricular tachycardia. Patient has been kept in ICU. Does have baseline history of coronary artery disease for which has had bypass surgery. Left heart catheterization was performed which revealed patent R[place]D and patent SVG. ACS is not considered at this point. It is of note that the patient's echocardiogram reveals significantly use systolic function. Valvular heart disease is considered. Findings are in favor of previously implanted mitral ring. By reviewing the echo images, component of up to moderate mitral stenosis could not be ruled out. LHC was performed that ruled out any active specific ischemia as an etiology for presentation. Is off Amiodarone for abnormal LFT. Being followed by Nephrology / Pulmonary / Neurology / GI ID. Tele has remained sinus rhythm. Had episode of a-fib with RVR. Was loaded with Digoxin. Dig level was performed at wrong timing (only 5 hours after the last Dig given). Dig toxicity is not considered. Patient is back to normal sinus rhythm. Has good kidney function. Repeat Dig level is acceptable level. s/p ICD implantation by EP Syncope V-fib s/p shock Sustained V-tach Paroxysmal A-fib VHD, s/p Mitral ring Systolic heart failure Abnormal LFT, at a point resolved, later appeared again s/p ICD (Biotronik) implantation by EP (Dr Armstrong) s/p PRBC transfusion for significant anemia Hepatic Steatosis Gallstones Cardiac suggestion for management: Manage in ICU Follow up electrolytes and kidney function test and correct abnormalities Full anticoagulation (a-fib with high CHADS-Vasc score). s/p ICD implantation. Awaiting INR below 2.0 (was on warfarin for a while) to start Eliquis Off Amio drip (worsened LFT) (personally discussed with EP: Dr Armstrong who advised to stop / not to restart Amiodarone) On Mexiletine If need for pressure support: use Phenyl Ephrine / vasopressin, keep MAP above 65 (for now off pressure support and tolerating) On Metoprolol to decrease risk of Vtach (as patient has ICD with bradycardia protection: may continue metoprolol in case of bradycardia, but hold: if hypotensive) May consider/add Esmolol for PVC/Vtach (if needed) Does not talk. Alert and oriented to self only. As she has not passed swallowing evaluation: IV Metoprolol if needed (HR above 100) s/p ICD (Biotronik) implantation by EP Off warfarin: Eliquis: 2.5 mg BID (only after INR is below 2.0) s/p PRBC transfusion for anemia Extubated Awaiting swallowing evaluation Pulmonary Follow up GI follow up for worsening liver function tests / fatty liver and gallstones Provide previous medical records from reaching out to previous hospitals in [facility]... Further evaluation and management depends on the above and clinical course. A total of 75 minutes was spent reviewing the patient record, examining the patient, making a diagnostic and therapeutic plan, discussing this plan with medical personnel, following up on diagnostic studies and following the patient for clinical stability excluding any and all procedures. At least 50% of this time was spent in direct, [id number] contact. Thank you for allowing me to participate in this patient's care. Further recommendations will depend on patient's clinical course. Please do not hesitate to contact me if you have any questions or concerns. This medical document was created using electronic medical record system with [employer] computerized dictation system. Although this document has been carefully reviewed, there may still be some phonetic and typographical errors. These areas are purely typographical due to the imperfection of the software programs, and do not reflect any compromise in the patient's medical care. Dietary Evaluation Review Comments: 1) TF Jevity 1.2Cal @ 55 ml/hr. x 24hr along with Pro-stat 1 pk daily. Start @ 20ml/hr, increase 10ml/hr Q4H until goal is reached. TF @ goal volume provides 1684 kcal (100% energy needs), 88 gm protein (100% protein needs), 1065 ml free water. 2) Water flush 100ml Q4H if allowed, adjust PRN 3) Advance to cardiac diet as medically feasible 4) Monitor NPO status, lab values, wt trend, I/O Expected Outcomes/Goals: To meet >75% estimated needs within 7 days Lab values to improve Fu 2-3 days Plan discussed with: Other (nurse) CORDELL VERA MD Oct 31, 2024 08:20
[2024-10-31] MEDS ORDERED: METOPROLOL TARTRATE 1MG/1ML-5ML VIAL IV PRN (09:15)
--- NOTE | 2024-10-31 09:16 | DVHINCON2 ---
Date of service: Oct 31, 2024 Family History: Alcoholism Cardiovascular disease G8 MOTHER Allergies: Coded Allergies: NO KNOWN ALLERGIES (Unverified , 10/07/24) Current Medications Current Medications Medications (Trade) Dose Ordered Sig/Liliam Route PRN Reason Start Time Stop Time Status Last Admin Levofloxacin/ Dextrose 100 ml @ 100 mls/hr DAILY IV 10/30/24 10:00 10/30/24 07:26 DC Ertapenem 1 gm/ Sodium Chloride 50 ml @ 100 mls/hr DAILY IV 10/30/24 10:00 10/30/24 09:25 Potassium Chloride 100 ml @ 50 mls/hr Q2H IV 10/30/24 16:30 10/30/24 20:29 DC 10/30/24 18:57 Vital Signs Vital Signs Date Time Temp Pulse Resp B/P (MAP) Pulse Ox O2 Delivery O2 Flow Rate FiO2 10/31/24 06:45 55 32 116/53 (74) 96 10/31/24 06:00 Nasal Cannula* 2 28 10/31/24 04:00 97.4 97.4 Labs/Diagnostic Data Labs Test 10/31/24 03:04 10/30/24 14:56 10/30/24 10:34 10/30/24 08:42 Range/Units White Blood Count 11.5 #H 4.4-10.8 10^3/uL Red Blood Count 3.47 L 4.0-5.20 10^6/uL Hemoglobin 10.0 L 12.2-16.2 g/dL Hematocrit 30.9 L 36.0-46.0 % Mean Corpuscular Volume 89.1 80.0-100.0 fL Mean Corpuscular Hemoglobin 29.0 28.0-32.0 pg Mean Corpuscular Hemoglobin Concent 32.5 32.0-36.0 g/dL Red Cell Distribution Width 21.2 H 11.8-14.3 % Platelet Count 145 140-450 10^3/uL Mean Platelet Volume 11.6 H 6.9-10.8 fL Neutrophils (%) (Auto) 82.3 H 37.0-80.0 % Lymphocytes (%) (Auto) 11.0 10.0-50.0 % Monocytes (%) (Auto) 6.4 0.0-12.0 % Eosinophils (%) (Auto) 0.2 0.0-7.0 % Basophils (%) (Auto) 0.1 0.0-2.0 % Neutrophils # (Auto) 9.4 H 1.6-8.6 10 ^3/uL Lymphocytes # (Auto) 1.3 0.4-5.4 10 ^3/uL Monocytes # (Auto) 0.7 0-1.3 10 ^3/uL Eosinophils # (Auto) 0 0-0.8 10 ^3/uL Basophils # (Auto) 0 0-0.2 10 ^3/uL Nucleated Red Blood Cells 2.0 % Prothrombin Time 28.2 H 9.3-11.8 sec Prothrombin Time INR 2.96 H 0.9-1.15 Sodium Level 149 H 136-145 mmol/L Potassium Level 4.4 3.5-5.1 mmol/L Chloride Level 114 H 98-107 mmol/L Carbon Dioxide Level 23 20-31 mmol/L Anion Gap 12 5-15 Blood Urea Nitrogen 40 H 9-23 mg/dL Creatinine 0.96 0.550-1.02 mg/dL Glomerular Filtration Rate Calc 70 >90 mL/min BUN/Creatinine Ratio 41.7 H 10.0-20.0 Serum Glucose 100 74-106 mg/dL Calcium Level 8.8 8.7-10.4 mg/dL Magnesium Level 2.5 1.6-2.6 mg/dL Total Bilirubin 0.9 0.2-1.0 mg/dL Aspartate Amino Transferase (AST) 382 H 13-40 U/L Alanine Aminotransferase (ALT) 436 H 7-40 U/L Alkaline Phosphatase 182 H 46-116 U/L Total Protein 5.6 L 5.7-8.2 g/dL Albumin 3.1 L 3.2-4.8 g/dL Blood Gas Specimen Type Arterial Blood Gas Sample Site Right radial Blood Gas Patient Temperature 37.0 Arterial Blood Date Drawn [id number] Arterial Blood pH 7.494 H 7.350-7.450 Arterial Blood Partial Pressure CO2 25.6 L 32.0-45.0 mmHg Arterial Blood Partial Pressure O2 137.1 H 83.0-108.0 mmHg Arterial Blood HCO3 19.2 L 21.0-28.0 mmol/L Arterial Blood Oxygen Saturation 98.1 H 94.0-98.0 % Arterial Blood Base Excess -2.9 L -2.0-3.0 mmol/L Arterial Blood Oxyhemoglobin 97.7 94.0-98.0 % Arterial Blood Carboxyhemoglobin 0.3 L 0.5-1.5 % Arterial Blood Methemoglobin 0.1 0.0-1.5 % Trung Test Yes Blood Gas Total Hemoglobin 10.40 L 12.0-16.0 g/dL Blood Gas Modality Vent - cpap FiO2 % 30.0 Blood Gas Pressure Support 8 Blood Gas PEEP or CPAP 5.0 Blood Gas Set Respiration Rate 18.0 Blood Gas Tidal Volume 450.0 Blood Gas Critical Value Read Back Yes Blood Gas Notified Whom veda Bautista md Blood Gas Notified Time [id number] Blood Gas Notified By luz marina Bertrand respiratory scientist Test 10/30/24 03:05 10/29/24 08:23 10/28/24 08:41 10/28/24 03:30 Range/Units Activated Partial Thromboplast Time 27.9 24.5-34.5 SEC B-Type Natriuretic Peptide 1073.91 0-100 pg/mL Direct Bilirubin 0.6 H <0.3 mg/dL Blood Gas Spontaneous Rate 24 Platelet Estimate Adequate Anisocytosis (manual) Moderate Test 10/25/24 02:38 10/24/24 03:43 10/23/24 05:50 10/21/24 13:10 Range/Units Differential Total Cells Counted 100.0 100 Neutrophils % (Manual) 83 H 37.0-80.0 Band Neutrophils % (Manual) 0 Lymphocytes % (Manual) 15 10.0-50.0 Monocytes % (Manual) 2 0-12 Eosinophils % (Manual) 0 0-7 Basophils % (Manual) 0 0.0-2.0 Metamyelocytes % (manual) 0 Myelocytes % (Manual) 0 Promyelocytes % (Manual) 0 Blast Cells % (Manual) 0 Reactive Lymphocytes 0 Phosphorus Level 3.7 2.4-5.1 mg/dL Ferritin 698.0 H 10-291 ng/mL POC Glucose 123 H 70-106 mg/dl Vancomycin Level Trough 17.1 H 5-10 ug/mL Test 10/19/24 14:52 10/17/24 02:45 10/16/24 02:40 10/15/24 03:09 Range/Units Lactic Acid Level 2.9 *H 0.4-2.0 mmol/L Polychromasia Slight Digoxin Level 0.98 0.8-2 ng/mL Tear Drop Cells Few Triglycerides Level 139 < 150 mg/dL Poikilocytosis (manual) Slight Test 10/11/24 03:23 10/09/24 22:25 10/07/24 22:13 10/07/24 14:09 Range/Units Hemoglobin A 97.5 96.4-98.8 % Hemoglobin A2 2.5 1.8-3.2 % Hemoglobin F () 0.0 0.0-2.0 % Hemoglobin S 0.0 0.0 % Hemoglobin Electrophoresis Interp Comment . Serum Immunoglobulin G 3381 050-2822 mg/dL Immunoglobulin A 210 87-352 mg/dL Immunoglobulin M 186 26-217 mg/dL Serum Immunofixation Comment . Free [place] Light Chains, Quant 49.1 H 3.3-19.4 mg/L Free [place]/Lambda Light Chain Ratio 1.54 0.26-1.65 Hepatitis A IgM Antibody Negative Hepatitis B Surface Antigen Negative Negative Hepatitis B Core IgM Antibody Negative Negative Hepatitis C Antibody Negative Negative Urine Creatinine 31.20 30.0-125.0 mg/dL Urine Protein/Creatinine Ratio 0.72 Urine Sodium 79 40-220 mmol/L Urine Total Protein 22.5 H 1-14 mg/dL Blood Gas Spontaneous Tidal Volume 488 Troponin I High Sensitivity 117 *H </=34 ng/L Test 10/07/24 10:56 10/07/24 06:17 Range/Units Cholesterol Level 66 < 200 mg/dL LDL Cholesterol 31 < 100 mg/dL HDL Cholesterol 21 L 40-59 mg/dL Urine Color Yellow Yellow Urine Clarity Turbid H Clear Urine pH 6.0 5.0-9.0 Urine Specific [place] 1.033 1.001-1.035 Urine Protein 3+ H Negative Urine Ketones Trace Negative Urine Blood 1+ H Negative /uL Urine Nitrite Negative Negative Urine Bilirubin Negative Negative Urine Urobilinogen 3 H Negative mg/dL Urine Leukocyte Esterase Negative Negative /uL Urine Glucose 1+ H Normal mg/dL Urine Opiates Screen Neg NEGATIVE Urine Fentanyl Screen Neg NEGATIVE Urine Barbiturates Screen Neg NEGATIVE Urine Phencyclidine Screen Neg NEGATIVE Urine Amphetamines Screen Neg NEGATIVE Urine Benzodiazepines Screen Neg NEGATIVE Urine Cocaine Screen Neg NEGATIVE Urine Cannabinoids Screen Neg NEGATIVE Microbiology Date/Time Source Procedure Growth Status 10/20/24 04:00 Sputum Gram Stain - Final Complete 10/20/24 04:00 Respiratory Culture - Final Enterobacter cloacae Yeast, not Ilda albicans Complete 10/20/24 01:03 Urine - [place] Urine Culture - Final Yeast, not Ilda albicans Complete 10/19/24 13:02 Blood Blood Culture - Final NO GROWTH AFTER 5 DAYS OF INCUBATION. Complete 10/07/24 16:50 Nose MRSA Screen - Final Complete Assessment 54 YEAR OLD FEMALE S/P CPR FOR CARDIAC ARREST, NOW EXTUBATED AND COOPERATIVE, DENIES ABDOMINAL PAIN, ABDOMEN NON TENDER, SLIGHT ;LEUKOCYTOSIS AND ELEVATED WBC( PROBABLY "SHOCKED LIVER" NOW IMPROVING, GALLSTONES ON IMAGING, MOST LIKLEY INCIDENTAL FINDING, NO INDICATION FOR EMERGENCY SURGICAL INTERVENTION, NOT A CANDIDATE FOR ELECTIVE CHOLECYSTECTOMY AT THIS TIME Plan discussed with: Patient, Other SEAN RICKETTS MD Oct 31, 2024 09:16
--- NOTE | 2024-10-31 11:48 | DVHPN2 ---
Progress Note - Dictate Date Seen: Oct 31, 2024 Has the PT tested + for MRSA If YES, has PT been informed?: No Medical Necessity Reason Pt with a Central, PICC or Fol: Yes The following are medically ne: PICC Line, Cutler Catheter Reason for cutler catheter: Strict I&O vital signs Vital Sign Date Time Temp Pulse Resp B/P (MAP) Pulse Ox O2 Delivery O2 Flow Rate FiO2 10/31/24 06:45 55 32 116/53 (74) 96 10/31/24 06:00 Nasal Cannula* 2 28 10/31/24 04:00 97.4 97.4 Total Intake and Output 10/30/24 10/30/24 10/31/24 15:00 23:00 07:00 Intake Total 350 ml 200 ml 0 ml Output Total 150 ml 200 ml Balance 350 ml 50 ml -200 ml medications Current Medications Medications Dose Ordered Sig/Liliam Route Start Time Stop Time Status Last Admin Dose Admin Midazolam HCl 50 ml @ 1 mls/hr Q24H IV 10/07/24 04:45 10/21/24 07:28 4 MLS/HR Ondansetron HCl 4 mg Q4HP PRN IV 10/07/24 10:00 Nitroglycerin 0.4 mg Q5MINP PRN SL 10/07/24 10:00 Pantoprazole Sodium 40 mg DAILY IV 10/07/24 10:00 10/31/24 10:43 40 MG Mexiletine HCl 150 mg TID GT 10/08/24 22:00 10/30/24 05:32 150 MG Acetaminophen 500 mg Q6HP PRN PO 10/08/24 22:30 10/19/24 03:18 500 MG Enteral Nutritional Formula 1,000 ml 55ML/HR GT 10/09/24 18:45 10/22/24 18:55 1,000 ML Phenylephrine HCl 80 mg/Sodium Chloride 250 ml @ 7.5 mls/hr Q24H IV 10/10/24 09:30 10/25/24 23:02 7.5 MLS/HR Esmolol HCl 250 ml @ 0 mls/hr Q0M IV 10/14/24 10:45 Amino Acids 0 ml @ 0 mls/hr PER PHARMACY IV 10/15/24 18:45 Cancel Dextrose 50 ml UD IV 10/16/24 09:30 Cancel Polyethylene Glycol 17 gm DAILYPRN PRN GT 10/17/24 16:45 10/19/24 05:54 17 GM Hydrocortisone Sodium Succinate 50 mg Q6HR IV 10/19/24 18:00 10/31/24 06:04 50 MG Vancomycin HCl 0 ml @ 0 mls/hr UD IV 10/19/24 14:00 Cancel Vasopressin 20 units/Sodium Chloride 100 ml @ 9 mls/hr Q11H7M IV 10/19/24 15:45 Amino Acid Protein 30 ml DAILY GT 10/22/24 10:00 10/28/24 10:24 30 ML Apixaban 2.5 mg BID PO 10/25/24 10:00 Hold Metoclopramide HCl 5 mg BID IV 10/25/24 10:00 Hold 10/25/24 21:32 5 MG Sodium Chloride 10 ml QSHIFT@10,22 IV 10/26/24 22:00 10/31/24 10:43 10 ML Morphine Sulfate 2 mg Q4HPRN PRN IV 10/28/24 10:30 10/28/24 13:59 2 MG Metoprolol Tartrate 12.5 mg BID PO 10/28/24 22:00 10/30/24 09:24 12.5 MG Ertapenem 1 gm/ Sodium Chloride 50 ml @ 100 mls/hr DAILY IV 10/30/24 10:00 10/31/24 10:43 100 MLS/HR Metoprolol Tartrate 2.5 mg Q6HPRN PRN IV 10/31/24 09:15 objective General Appearance: no distress HEENT: EOMI, PERRLA, normal external inspect of ears, no icterus, no nasal drainage Neck: no carotid bruit, no jugular venous distention (JVD), no lymphadenopathy Chest: normal thorax Respiratory: Intubated, clear to auscultation, normal air movement Cardiovascular: regular rate and rhythm, no diastolic murmur, no jugular venous distention (JVD), no rub, no systolic murmur Abdominal: soft, no hepatomegaly, no mass, no splenomegaly, no tenderness Genitourinary: grossly normal external Musculoskeletal: no joint tenderness, no swelling Extremities: normal pulses, no calf tenderness, no clubbing, no cyanosis, no edema Skin: no bruising, no jaundice, no rash Neurological: No focal deficit laboratory and microbiology Laboratory Tests 10/31/24 03:04 Test 10/31/24 03:04 Range/Units Serum Glucose 100 74-106 mg/dL Problem List Cardiac Arrest with Ventricular Fibrillation Assessment: Patient experienced cardiac arrest with ventricular fibrillation on 10/07/24, witnessed by family members who initiated CPR. EMS found the patient in ventricular fibrillation and administered shock therapy. Rhythm strip analysis confirmed ventricular fibrillation. Patient required intubation and sedation upon ED arrival. Currently admitted to ICU for close observation. Cardiology has been consulted and plans for AICD placement, likely on Tuesday. Infectious disease clearance has been obtained for the AICD procedure, addressing initial concerns of leukocytosis which is now improving. Status post-cardiac arrest. Plan: - Continue ICU monitoring - Proceed with AICD placement as planned (likely Tuesday), cleared by infectious disease. - Maintain intubation and sedation until AICD placement - Continue Heparin drip for paroxysmal atrial fibrillation - Continue Mexitil - DC amiodarone due to transaminitis - added esmolol drip per Cardiology for AFib and added push doses of digoxin Coronary Artery Disease Assessment: Patient with history of 2-vessel CABG (Coronary Artery Bypass Grafting). Surgical intervention previously performed to address significant coronary artery stenosis. Plan: - Continue medical management - Follow up with cardiology for ongoing coronary artery disease management Acute and Chronic Systolic Heart Failure Assessment: Patient has acute and chronic systolic heart failure with severely reduced left ventricular function. Ejection fraction is estimated at 15-20%. RICHIE findings are consistent with severely reduced left ventricular ejection fraction, previously implanted mitral ring, up to moderate mitral stenosis and regurgitation, and moderate aortic insufficiency. Plan: - Continue cardiology consultation - continue IV diuretics (IV Lasix) - Monitor renal function Acute Hypoxic Respiratory Failure Assessment: Patient is currently intubated due to acute hypoxic respiratory failure. Dr. Downey from pulmonology is managing this aspect of care. Plan: - Maintain current intubation as per pulmonology recommendation - Proceed with CPAP trials when deemed appropriate by pulmonology Transaminitis Assessment: Patient has elevated liver function tests, likely secondary to amiodarone use. Cardiology has discontinued amiodarone in response. Plan: - Monitor liver function tests - Amiodarone discontinued as per cardiology Enterobacter PNA Assessment: Sputum culture positive for Enterobacter. Plan: - Continue treatment with Eratapenem to complete 10 days regimen -Infectious disease consult Hemodynamic Support Assessment: Patient requires vasopressor support for hemodynamic stability. Plan: - Continue vasopressin - Continue neosynephrine Paroxysmal a fib -DC amiodarone -continue with heparin gtt Shock liver GI consult, trend liver enzymes, hepatitis panel was negative. Ultrasound of the liver had no acute findings. Assessment/Plan Subjective: Patient is A&O 1. Objective: Patient is disoriented and confused, does not believe she is in the hospital, and does not recall the events leading to admission. She is status post extubation yesterday. Swallow evaluation and PT evaluation are pending. EKG monitoring is ongoing. Antibiotics are continued, and repeat labs have been ordered for the a.m. Patient was seen by General Surgery and found to have cholelithiasis with no indication for cholecystitis. Plan: Proceed with swallow evaluation and PT evaluation. Monitor EKG. Continue antibiotics. Repeat labs in the a.m. Follow General Surgery recommendations regarding cholelithiasis. Dietary Evaluation Review Comments: 1) TF Jevity 1.2Cal @ 55 ml/hr. x 24hr along with Pro-stat 1 pk daily. Start @ 20ml/hr, increase 10ml/hr Q4H until goal is reached. TF @ goal volume provides 1684 kcal (100% energy needs), 88 gm protein (100% protein needs), 1065 ml free water. 2) Water flush 100ml Q4H if allowed, adjust PRN 3) Advance to cardiac diet as medically feasible 4) Monitor NPO status, lab values, wt trend, I/O Expected Outcomes/Goals: To meet >75% estimated needs within 7 days Lab values to improve Fu 2-3 days Plan discussed with: Patient, Other BRODIE [employer] Oct 31, 2024 11:48
--- NOTE | 2024-10-31 14:02 | DVHPN2 ---
Progress Note Date Seen: Oct 31, 2024 Resident Creating Document: ETHAN SWAN RESIDENT Has the PT tested + for MRSA If YES, has PT been informed?: No Medical Necessity Reason Pt with a Central, PICC or Fol: Yes The following are medically ne: PICC Line, Cutler Catheter Reason for cutler catheter: Strict I&O Subjective Review of Systems Patient seen and examined at bedside S/p extubation on 10/30/2024 AO times 1-0 Objective vital signs Vital Sign Date Time Temp Pulse Resp B/P (MAP) Pulse Ox O2 Delivery O2 Flow Rate FiO2 10/31/24 12:45 55 16 111/65 (80) 98 10/31/24 12:00 97.6 97.6 10/31/24 06:00 Nasal Cannula* 2 28 Total Intake and Output 10/30/24 10/30/24 10/31/24 15:00 23:00 07:00 Intake Total 350 ml 200 ml 0 ml Output Total 150 ml 200 ml Balance 350 ml 50 ml -200 ml medications Current Medications Medications Dose Ordered Sig/Liliam Route Start Time Stop Time Status Last Admin Dose Admin Midazolam HCl 50 ml @ 1 mls/hr Q24H IV 10/07/24 04:45 10/21/24 07:28 4 MLS/HR Ondansetron HCl 4 mg Q4HP PRN IV 10/07/24 10:00 Nitroglycerin 0.4 mg Q5MINP PRN SL 10/07/24 10:00 Pantoprazole Sodium 40 mg DAILY IV 10/07/24 10:00 10/31/24 10:43 40 MG Mexiletine HCl 150 mg TID GT 10/08/24 22:00 10/30/24 05:32 150 MG Acetaminophen 500 mg Q6HP PRN PO 10/08/24 22:30 10/19/24 03:18 500 MG Enteral Nutritional Formula 1,000 ml 55ML/HR GT 10/09/24 18:45 10/22/24 18:55 1,000 ML Phenylephrine HCl 80 mg/Sodium Chloride 250 ml @ 7.5 mls/hr Q24H IV 10/10/24 09:30 10/25/24 23:02 7.5 MLS/HR Esmolol HCl 250 ml @ 0 mls/hr Q0M IV 10/14/24 10:45 Amino Acids 0 ml @ 0 mls/hr PER PHARMACY IV 10/15/24 18:45 Cancel Dextrose 50 ml UD IV 10/16/24 09:30 Cancel Polyethylene Glycol 17 gm DAILYPRN PRN GT 10/17/24 16:45 10/19/24 05:54 17 GM Hydrocortisone Sodium Succinate 50 mg Q6HR IV 10/19/24 18:00 10/31/24 11:59 50 MG Vancomycin HCl 0 ml @ 0 mls/hr UD IV 10/19/24 14:00 Cancel Vasopressin 20 units/Sodium Chloride 100 ml @ 9 mls/hr Q11H7M IV 10/19/24 15:45 Amino Acid Protein 30 ml DAILY GT 10/22/24 10:00 10/28/24 10:24 30 ML Apixaban 2.5 mg BID PO 10/25/24 10:00 Hold Metoclopramide HCl 5 mg BID IV 10/25/24 10:00 Hold 10/25/24 21:32 5 MG Sodium Chloride 10 ml QSHIFT@10,22 IV 10/26/24 22:00 10/31/24 10:43 10 ML Morphine Sulfate 2 mg Q4HPRN PRN IV 10/28/24 10:30 10/28/24 13:59 2 MG Metoprolol Tartrate 12.5 mg BID PO 10/28/24 22:00 10/30/24 09:24 12.5 MG Ertapenem 1 gm/ Sodium Chloride 50 ml @ 100 mls/hr DAILY IV 10/30/24 10:00 10/31/24 10:43 100 MLS/HR Metoprolol Tartrate 2.5 mg Q6HPRN PRN IV 10/31/24 09:15 Examination General Appearance: Sedated, intubated on mechanical ventilation Head Exam: Normal inspection. Constricted equal and reactive pupils Neck Exam: Normal inspection. Non-tender. Normal alignment Pulmonary/Respiratory: Chest non-tender. Trace crackles Peripheral Pulses 2+ Pedal (R). 2+ Pedal (L) Abdominal Exam: Normal bowel sounds. Soft. Nontender Skin Exam: Normal inspection. Normal color. Warm. Dry laboratory and microbiology Laboratory Tests 10/31/24 03:04 Test 10/31/24 03:04 Range/Units Serum Glucose 100 74-106 mg/dL Microbiology Date/Time Source Procedure Growth Status 10/20/24 04:00 Sputum Gram Stain - Final Complete 10/20/24 04:00 Respiratory Culture - Final Enterobacter cloacae Yeast, not Ilda albicans Complete 10/20/24 01:03 Urine - Cutler Port Urine Culture - Final Yeast, not Ilda albicans Complete 10/19/24 13:02 Blood Blood Culture - Final NO GROWTH AFTER 5 DAYS OF INCUBATION. Complete 10/07/24 16:50 Nose MRSA Screen - Final Complete Labs and/or images reviewed: Labs reviewed by me, Image(s) reviewed by me Problem List/Assessment/Plan Problem List/Assessment/Plan Possible acute cholecystitis Ventricular fibrillation S/p cardiopulmonary arrest with shock Heart failure with reduced ejection fraction 15-20% Metabolic versus hypoxic encephalopathy Acute hepatocellular injury likely shock liver Cholelithiasis without acute inflammation Nonalcoholic fatty liver disease with steatohepatitis Community-acquired pneumonia growing Enterobacter Plan: Liver function tests downtrending appropriately Patient already on steroids Surgical consult Hemoglobin stable, transfuse if HB 7 or less Continue tube feedings Swallow eval Decreased metoclopramide to 5 mg IV b.i.d. JAIDEN positive, outpatient follow up with GI recommended for further workup Thank you so much for the opportunity to consult on your patient. GI team will follow the patient. In case of any questions or concerns please feel free to reach out. Plan discussed with Dr. Anglin Plan discussed with: Other (RN) My Orders My Orders Orders - ETHAN SWAN RESIDENT Procedure Category Date Status Time * Surgical Consult CONS 10/30/[address] Eval Swallow Funct ST 10/31/24 Logged 45min 08:16 Dietary Evaluation Review Comments: 1) TF Jevity 1.2Cal @ 55 ml/hr. x 24hr along with Pro-stat 1 pk daily. Start @ 20ml/hr, increase 10ml/hr Q4H until goal is reached. TF @ goal volume provides 1684 kcal (100% energy needs), 88 gm protein (100% protein needs), 1065 ml free water. 2) Water flush 100ml Q4H if allowed, adjust PRN 3) Advance to cardiac diet as medically feasible 4) Monitor NPO status, lab values, wt trend, I/O Expected Outcomes/Goals: To meet >75% estimated needs within 7 days Lab values to improve Fu 2-3 days ETHAN SWAN RESIDENT Oct 31, 2024 14:01
[2024-10-31] MEDS: D5W/SOD CHL 0.45% 1,000 ML IV SCH (18:45)
--- NOTE | 2024-10-31 20:29 | DVHPN2 ---
Progress Note - Dictate Date Seen: Oct 31, 2024 Has the PT tested + for MRSA If YES, has PT been informed?: No Medical Necessity Reason Pt with a Central, PICC or Fol: Yes The following are medically ne: PICC Line, Cutler Catheter Reason for cutler catheter: Strict I&O Subjective Patient seen and examined at bedside. Breathing comfortably on room air Overnight events reviewed vital signs Vital Sign Date Time Temp Pulse Resp B/P (MAP) Pulse Ox O2 Delivery O2 Flow Rate FiO2 10/31/24 18:45 55 26 93 10/31/24 18:00 Room Air* 0 21 10/31/24 16:30 97.6 97.6 Total Intake and Output 10/30/24 10/30/24 10/31/24 15:00 23:00 07:00 Intake Total 350 ml 200 ml 0 ml Output Total 150 ml 200 ml Balance 350 ml 50 ml -200 ml medications Current Medications Medications Dose Ordered Sig/Liliam Route Start Time Stop Time Status Last Admin Dose Admin Midazolam HCl 50 ml @ 1 mls/hr Q24H IV 10/07/24 04:45 10/21/24 07:28 4 MLS/HR Ondansetron HCl 4 mg Q4HP PRN IV 10/07/24 10:00 Nitroglycerin 0.4 mg Q5MINP PRN SL 10/07/24 10:00 Pantoprazole Sodium 40 mg DAILY IV 10/07/24 10:00 10/31/24 10:43 40 MG Mexiletine HCl 150 mg TID GT 10/08/24 22:00 10/30/24 05:32 150 MG Acetaminophen 500 mg Q6HP PRN PO 10/08/24 22:30 10/19/24 03:18 500 MG Enteral Nutritional Formula 1,000 ml 55ML/HR GT 10/09/24 18:45 10/22/24 18:55 1,000 ML Phenylephrine HCl 80 mg/Sodium Chloride 250 ml @ 7.5 mls/hr Q24H IV 10/10/24 09:30 10/25/24 23:02 7.5 MLS/HR Esmolol HCl 250 ml @ 0 mls/hr Q0M IV 10/14/24 10:45 Amino Acids 0 ml @ 0 mls/hr PER PHARMACY IV 10/15/24 18:45 Cancel Dextrose 50 ml UD IV 10/16/24 09:30 Cancel Polyethylene Glycol 17 gm DAILYPRN PRN GT 10/17/24 16:45 10/19/24 05:54 17 GM Hydrocortisone Sodium Succinate 50 mg Q6HR IV 10/19/24 18:00 10/31/24 19:46 50 MG Vancomycin HCl 0 ml @ 0 mls/hr UD IV 10/19/24 14:00 Cancel Vasopressin 20 units/Sodium Chloride 100 ml @ 9 mls/hr Q11H7M IV 10/19/24 15:45 Amino Acid Protein 30 ml DAILY GT 10/22/24 10:00 10/28/24 10:24 30 ML Apixaban 2.5 mg BID PO 10/25/24 10:00 Hold Metoclopramide HCl 5 mg BID IV 10/25/24 10:00 Hold 10/25/24 21:32 5 MG Sodium Chloride 10 ml QSHIFT@10,22 IV 10/26/24 22:00 10/31/24 10:43 10 ML Morphine Sulfate 2 mg Q4HPRN PRN IV 10/28/24 10:30 10/28/24 13:59 2 MG Metoprolol Tartrate 12.5 mg BID PO 10/28/24 22:00 10/30/24 09:24 12.5 MG Ertapenem 1 gm/ Sodium Chloride 50 ml @ 100 mls/hr DAILY IV 10/30/24 10:00 10/31/24 10:43 100 MLS/HR Metoprolol Tartrate 2.5 mg Q6HPRN PRN IV 10/31/24 09:15 Dextrose/Sodium Chloride 1,000 ml @ 50 mls/hr Q20H IV 10/31/24 18:45 10/31/24 18:45 50 MLS/HR objective Gen.: Patient lying in bed in no apparent distress. On room air. Head: Normocephalic, atraumatic. Eyes: EOMI/PERRLA. Ears: Normal hearing. Normal anatomy. Neck/trachea: Trachea midline, supple. Nose: Normal external anatomy. Mouth: Moist mucous membranes. Chest: Decreased air entry bilaterally. No wheezing or rhonchi. Cardiovascular: Positive S1, positive S2. Regular rate and rhythm. Abdomen: Positive bowel sounds in all 4 quadrants. Soft, non-tender, non- distended. : Deferred. Rectal: Deferred. Skin: Warm, dry. Intact. Extremities: 2+ radial pulses bilaterally. No lower extremity edema. Neuro: Awake, alert, oriented x3. No gross motor or sensory deficits. Cranial nerves II through XII intact. Gait not assessed. laboratory and microbiology Laboratory Tests 10/31/24 03:04 Test 10/31/24 03:04 Range/Units Serum Glucose 100 74-106 mg/dL Assessment/Plan Impression: Acute hypoxic respiratory failure s/p cardiac arrest Ventricular tachycardia CPR <5 min Elevated troponin Atelectasis Events: Patient seen and examined at bedside Improved oxygen requirements On room air Supplemental oxygen PRN Plan for swallow evaluation Head of bed elevation Aspiration precautions Follow up Cardiology recommendations We will consider downgrade once stable from the Cardiology standpoint Remains off pressors Hemodynamically stable Continue antibiotics Continue antifungal Monitor blood pressure Monitor hemoglobin Transfuse if less than 7.0 g/dL. Physical therapy eval. Monitor labs. Monitor renal function Monitor electrolytes. Supplement as necessary. Protonix for GI ppx Clinimix for nutritional support Labs and imaging reviewed. Plan: S/p extubation Supplemental oxygen PRN Titrate to keep O2 sats above 92%. Pressors as necessary for hemodynamic support. Titrate to keep MAP greater than 65 mmHg. Patient is s/p pacemaker on 10/17/24 Cardiology recs appreciated. Continue antibiotics. F/u cultures. Continue antifungal IV steroids Accu-Cheks, ISS PRN. Monitor labs Monitor renal function Monitor electrolytes. Supplement as necessary. Monitor ins and outs. Maintain euvolemia F/u Cardiology recs. GI/DVT prophylaxis. Prognosis: Poor given patient's multiple co-morbidities. Condition: Critical Rest of plan per hospitalist and other consultants. A total of 35 minutes of critical care time was spent reviewing the patient record, examining the patient, making a diagnostic and therapeutic plan, discussing this plan with the medical personnel, following up on diagnostic studies and following the patient for clinical stability excluding any and all procedures. At least 50% of this time was spent in direct, [id number] contact. Thank you, YURI Gomez, for allowing me to participate in this patient's care. Further recommendations will depend on the patient's clinical course. Please do not hesitate to contact me if you have any questions or concerns. This medical document was created using an electronic medical record system with [employer] dictation system. Although these documentations are being carefully reviewed, there may still be some phonetic and typographical changes. The errors are purely typographical, due to imperfection on the software program, and do not reflect any compromise in the patient's medical care. Dietary Evaluation Review Comments: 1) TF Jevity 1.2Cal @ 55 ml/hr. x 24hr along with Pro-stat 1 pk daily. Start @ 20ml/hr, increase 10ml/hr Q4H until goal is reached. TF @ goal volume provides 1684 kcal (100% energy needs), 88 gm protein (100% protein needs), 1065 ml free water. 2) Water flush 100ml Q4H if allowed, adjust PRN 3) Advance to cardiac diet as medically feasible 4) Monitor NPO status, lab values, wt trend, I/O Expected Outcomes/Goals: To meet >75% estimated needs within 7 days Lab values to improve Fu 2-3 days Plan discussed with: Other (CEE Dumont) Critical Care Time(min): 35 KENNY FROST MD Oct 31, 2024 20:29
--- NOTE | 2024-10-31 22:18 | DVHPN2 ---
Progress Note - Dictate Date Seen: Oct 31, 2024 Has the PT tested + for MRSA If YES, has PT been informed?: No Medical Necessity Reason Pt with a Central, PICC or Fol: Yes The following are medically ne: PICC Line, Cutler Catheter Reason for cutler catheter: Strict I&O Subjective Ms. Smith is a 54 years old female who was brought to the [facility] on 10/07/2024 with a chief complaint of cardiopulmonary arrest/status post CPR. I have seen and examined the patient, I have discussed with her nurse, she is extubated, awake, she is oriented to person, place, she follows verbal commands, her voice is weak She received pacemaker insertion on 10/17/2024 Blood culture, 10/09/2024: No growth Blood culture, 10/19/2024: UDS, 10/07/2024: Negative Urinalysis, 10/07/2024: Leukocyte esterase: Negative WBC/HB/PLT/MCV, 10/09/2024: 20/8.8/219/94.6, 10/10/2024: 21.2/8.7/232/92.2 PT/INR/PTT, 10/08/2024: 12.4/1.19/72.7, 10/09/2024: 13.1/1.26/68.9, 10/10/2024: 14.4/2/1.38/35.3 CMP, 10/08/2024: Unremarkable Troponin one high sensitivity, 10/07/2024: 141, 138, 117 TBI/AST/ALT/AP, 10/10/2024: 0.5/538/168/144, 10/11/2024: 0.6/293/199/152, 10/14/2024: 0.8/68/74/124 TG/HDL/LDL/HDL, 10/07/24: 71/66/31/21 EKG 10/10/2024: Atrial fibrillation EKG, 10/15/2024: Atrial fibrillation Echocardiogram, 10/07/2024: lvef 15-20% dilated LV severe global dysfunction mild RV dysfunction biatrial enlargement mild moderate MAC, moderate mitral regurg mild to moderate aortic regug RICHIE, 10/08/2024: 1. Left ventricle: Dilated LV was seen. LVEF was 25%. There was diffuse hypokinesis of left ventricle. 2. Right ventricle: RV was mildly dilated. 3. Left atrium: LA enlarged 4. Right atrium: RA was enlarged. 5. Mitral valve: Mitral was thickened with reduced opening. Moderate Mitral regurgitation was seen. Planinomentry of valve (TTE images also obtained) revealed MVA of 2.1 cm. Mean pressure gradient (obtained from limited TTE images) was 5. Images are consistent with previously implanted Ring in Mitral position. Consistent with up to Moderate Mitral stenosis. . There was no vegetation 6. Left atrial appendage: No evidence of thrombus. 7. Aortic valve: Trileaflet valve. No stenosis. Up to moderate Aortic Insufficiency was seen. There was no vegetation 8. Pulmonic valve: Trivial pulmonic insufficiency. No significant stenosis. 9. Tricuspid valve: Mild tricuspid regurgitation. There was no vegetation 10. Interatrial septum: Negative color flow for right to left shunt was observed. Bubble study was performed: negative for shunt 11. Pericardium: No significant effusion. 12. Thoracic aorta: No significant plaquing. Chest x-ray, 10/27/2024: 1. Cardiomegaly, stable diffuse increased prominence of the pulmonary vasculature and small bilateral pleural effusions. 2. Slight interval advancement of endotracheal tube as above. Remaining lines and tubes unchanged. CT head, 10/07/2024: No acute intracranial abnormality General: the patient is well developed and nourished. No acute distress. Intubated CT head, 10/07/2024: No acute intracranial abnormality. CT head, 10/11/2024: No acute intracranial abnormality vital signs Vital Sign Date Time Temp Pulse Resp B/P (MAP) Pulse Ox O2 Delivery O2 Flow Rate FiO2 10/31/24 18:45 55 26 93 10/31/24 18:00 Room Air* 0 21 10/31/24 16:30 97.6 97.6 Total Intake and Output 10/30/24 10/30/24 10/31/24 15:00 23:00 07:00 Intake Total 350 ml 200 ml 0 ml Output Total 150 ml 200 ml Balance 350 ml 50 ml -200 ml medications Current Medications Medications Dose Ordered Sig/Liliam Route Start Time Stop Time Status Last Admin Dose Admin Midazolam HCl 50 ml @ 1 mls/hr Q24H IV 10/07/24 04:45 10/21/24 07:28 4 MLS/HR Ondansetron HCl 4 mg Q4HP PRN IV 10/07/24 10:00 Nitroglycerin 0.4 mg Q5MINP PRN SL 10/07/24 10:00 Pantoprazole Sodium 40 mg DAILY IV 10/07/24 10:00 10/31/24 10:43 40 MG Mexiletine HCl 150 mg TID GT 10/08/24 22:00 10/30/24 05:32 150 MG Acetaminophen 500 mg Q6HP PRN PO 10/08/24 22:30 10/19/24 03:18 500 MG Enteral Nutritional Formula 1,000 ml 55ML/HR GT 10/09/24 18:45 10/22/24 18:55 1,000 ML Phenylephrine HCl 80 mg/Sodium Chloride 250 ml @ 7.5 mls/hr Q24H IV 10/10/24 09:30 10/25/24 23:02 7.5 MLS/HR Esmolol HCl 250 ml @ 0 mls/hr Q0M IV 10/14/24 10:45 Amino Acids 0 ml @ 0 mls/hr PER PHARMACY IV 10/15/24 18:45 Cancel Dextrose 50 ml UD IV 10/16/24 09:30 Cancel Polyethylene Glycol 17 gm DAILYPRN PRN GT 10/17/24 16:45 10/19/24 05:54 17 GM Hydrocortisone Sodium Succinate 50 mg Q6HR IV 10/19/24 18:00 10/31/24 19:46 50 MG Vancomycin HCl 0 ml @ 0 mls/hr UD IV 10/19/24 14:00 Cancel Vasopressin 20 units/Sodium Chloride 100 ml @ 9 mls/hr Q11H7M IV 10/19/24 15:45 Amino Acid Protein 30 ml DAILY GT 10/22/24 10:00 10/28/24 10:24 30 ML Apixaban 2.5 mg BID PO 10/25/24 10:00 Hold Metoclopramide HCl 5 mg BID IV 10/25/24 10:00 Hold 10/25/24 21:32 5 MG Sodium Chloride 10 ml QSHIFT@10,22 IV 10/26/24 22:00 10/31/24 10:43 10 ML Morphine Sulfate 2 mg Q4HPRN PRN IV 10/28/24 10:30 10/28/24 13:59 2 MG Metoprolol Tartrate 12.5 mg BID PO 10/28/24 22:00 10/30/24 09:24 12.5 MG Ertapenem 1 gm/ Sodium Chloride 50 ml @ 100 mls/hr DAILY IV 10/30/24 10:00 10/31/24 10:43 100 MLS/HR Metoprolol Tartrate 2.5 mg Q6HPRN PRN IV 10/31/24 09:15 Dextrose/Sodium Chloride 1,000 ml @ 50 mls/hr Q20H IV 10/31/24 18:45 10/31/24 18:45 50 MLS/HR objective The patient is well-nourished and well-developed with no distress. The patient is intubated MENTAL STATUS: Subjective CRANIAL NERVES: Pupils are equal, round and reactive. EOMs full and conjugate. Facial sensation intact in all three divisions bilaterally. Mandibular strength intact. Facial muscles symmetrical and strength intact. SENSATION: Okay to pinprick and light touch MOTOR: Normal tone in the upper and lower extremity. Normal muscle bulk. No fasciculations. She move the arms and legs REFLEXES: Deep tendon reflexes are symmetrical. No pathological reflexes. CEREBELLAR/COORDINATION: Deferred GAIT/STATION: deferred. laboratory and microbiology Laboratory Tests 10/31/24 03:04 Test 10/31/24 03:04 Range/Units Serum Glucose 100 74-106 mg/dL Problem List Cardiopulmonary arrest Status post CPR Metabolic encephalopathy Hypoxic encephalopathy Congestive heart failure Leukocytosis/sepsis/septic shock Respiratory failure Elevated liver function tests AFib S/P pacemaker insertion on 10/17/2024 Assessment/Plan Monitoring Supportive treatment ICU care Stabilize vitals Respiratory support PRN Hold off Lipitor (elevated liver function tests), LDL (31) (home medications included Lipitor 40 mg daily) DVT prophylaxis GI prophylaxis Cardiology on case Pulmonology on case Nephrology on case Consult GI Re: Elevated liver function tests Need more history This medical document was created using an electronic medical record system with [employer] dictation system. Although this document has been carefully reviewed, there may still be some phonetic and typographical errors. These areas are purely typographical due to imperfections of the software programs, and do not reflect any compromise in the patient's medical care. Prognosis guarded Dietary Evaluation Review Comments: 1) TF Jevity 1.2Cal @ 55 ml/hr. x 24hr along with Pro-stat 1 pk daily. Start @ 20ml/hr, increase 10ml/hr Q4H until goal is reached. TF @ goal volume provides 1684 kcal (100% energy needs), 88 gm protein (100% protein needs), 1065 ml free water. 2) Water flush 100ml Q4H if allowed, adjust PRN 3) Advance to cardiac diet as medically feasible 4) Monitor NPO status, lab values, wt trend, I/O Expected Outcomes/Goals: To meet >75% estimated needs within 7 days Lab values to improve Fu 2-3 days Plan discussed with: Other CAROLINE ROBB MD Oct 31, 2024 22:18
--- NOTE | 2024-10-31 22:37 | DVHPN2 ---
Consult Progress Note Date Seen: Oct 20, 2024 Subjective Patient reports: Other (remaisn on broad spectrumm antibiotics . leukocytosis has improved . fio2 30% ) Objective vital signs Vital Sign Date Time Temp Pulse Resp B/P (MAP) Pulse Ox O2 Delivery O2 Flow Rate FiO2 10/31/24 18:45 55 26 93 10/31/24 18:00 Room Air* 0 21 10/31/24 16:30 97.6 97.6 Total Intake and Output 10/30/24 10/30/24 10/31/24 15:00 23:00 07:00 Intake Total 350 ml 200 ml 0 ml Output Total 150 ml 200 ml Balance 350 ml 50 ml -200 ml medications Current Medications Medications Dose Ordered Sig/Liliam Route Start Time Stop Time Status Last Admin Dose Admin Midazolam HCl 50 ml @ 1 mls/hr Q24H IV 10/07/24 04:45 10/21/24 07:28 4 MLS/HR Ondansetron HCl 4 mg Q4HP PRN IV 10/07/24 10:00 Nitroglycerin 0.4 mg Q5MINP PRN SL 10/07/24 10:00 Pantoprazole Sodium 40 mg DAILY IV 10/07/24 10:00 10/31/24 10:43 40 MG Mexiletine HCl 150 mg TID GT 10/08/24 22:00 10/30/24 05:32 150 MG Acetaminophen 500 mg Q6HP PRN PO 10/08/24 22:30 10/19/24 03:18 500 MG Enteral Nutritional Formula 1,000 ml 55ML/HR GT 10/09/24 18:45 10/22/24 18:55 1,000 ML Phenylephrine HCl 80 mg/Sodium Chloride 250 ml @ 7.5 mls/hr Q24H IV 10/10/24 09:30 10/25/24 23:02 7.5 MLS/HR Esmolol HCl 250 ml @ 0 mls/hr Q0M IV 10/14/24 10:45 Amino Acids 0 ml @ 0 mls/hr PER PHARMACY IV 10/15/24 18:45 Cancel Dextrose 50 ml UD IV 10/16/24 09:30 Cancel Polyethylene Glycol 17 gm DAILYPRN PRN GT 10/17/24 16:45 10/19/24 05:54 17 GM Hydrocortisone Sodium Succinate 50 mg Q6HR IV 10/19/24 18:00 10/31/24 19:46 50 MG Vancomycin HCl 0 ml @ 0 mls/hr UD IV 10/19/24 14:00 Cancel Vasopressin 20 units/Sodium Chloride 100 ml @ 9 mls/hr Q11H7M IV 10/19/24 15:45 Amino Acid Protein 30 ml DAILY GT 10/22/24 10:00 10/28/24 10:24 30 ML Apixaban 2.5 mg BID PO 10/25/24 10:00 Hold Metoclopramide HCl 5 mg BID IV 10/25/24 10:00 Hold 10/25/24 21:32 5 MG Sodium Chloride 10 ml QSHIFT@10,22 IV 10/26/24 22:00 10/31/24 10:43 10 ML Morphine Sulfate 2 mg Q4HPRN PRN IV 10/28/24 10:30 10/28/24 13:59 2 MG Metoprolol Tartrate 12.5 mg BID PO 10/28/24 22:00 10/30/24 09:24 12.5 MG Ertapenem 1 gm/ Sodium Chloride 50 ml @ 100 mls/hr DAILY IV 10/30/24 10:00 10/31/24 10:43 100 MLS/HR Metoprolol Tartrate 2.5 mg Q6HPRN PRN IV 10/31/24 09:15 Dextrose/Sodium Chloride 1,000 ml @ 50 mls/hr Q20H IV 10/31/24 18:45 10/31/24 18:45 50 MLS/HR Physical Exam: General: NAD Neck: Supple. No masses. HEENT: PERRL. Normal lids and conjunctiva. Moist mucous membranes. Oropharynx without lesions, exudates or excessive erythema. Normal appearance of the external aspects of the nose and ears. Heart: Regular rhythm, normal rate. No murmur. No lower extremity edema. Lungs: Normal respiratory effort. Clear to auscultation bilaterally. No wheezes. No crackles. Abdomen: Soft. Non-tender. Non-distended. No masses or abdominal hernia. Normal active bowel sounds. Msk: No digital cyanosis. Normal strength and tone in all 4 limbs. Skin: Warm and dry, no rashes. Neuro: Occasionally follows commands, awake but not fully alert, not consistently following voice or commands. No focal neurological deficits reported. Psych: Not discussed. Oriented to person, place, time, situation: Not fully oriented; intermittently responsive. laboratory and microbiology Laboratory Tests 10/31/24 03:04 Test 10/31/24 03:04 Range/Units Serum Glucose 100 74-106 mg/dL Problem List/Assessment/Plan Problems(with codes): (1) Shock liver (2) Pneumonia (3) Sepsis, unspecified organism (4) Ventricular fibrillation Problem List/Assessment/Plan Problems(with codes): (1) Pneumonia (2) Cardiac arrest (3) Ventricular fibrillation (4) Sepsis, unspecified organism Plan/Recommendation ASSESSMENT AND PLAN: ID Problem List: \-- Status post cardiac arrest with return of spontaneous circulation (ROSC) \-- Ventricular tachycardia and atrial fibrillation \-- Recent aspiration event/pneumonitis versus pneumonia, Enterobacter cloacae isolated \-- Severe reduced ejection fraction (EF 1520%), dilated LV, severe global dysfunction \-- History of CABG with stents, mitral ring implant \-- Hypothermia, hypoxia requiring intubation and sedation \-- Sepsis (suspected/treated), leukocytosis (now resolved) \-- Ongoing vasopressor requirement (phenylephrine) \-- ICD placement planned Assessment Ms. Smith is a 54-year-old female with a past medical history notable for prior coronary artery bypass grafting (CABG) with stenting, recent mitral ring implant, and significant cardiac disease. She presented on 10/07 with an acute witnessed cardiac arrest during dinner; initial rhythm was ventricular tachycardia/atrial fibrillation. ROSC was achieved on EMS arrival after a single shock and Narcan administration. She was found to be hypothermic and hypotensive and required intubation for airway protection due to altered mental status. During her ICU course, she had recurrent ventricular tachycardia and atrial fibrillation, managed with antiarrhythmic drip (amiodarone), vasopressors (initially Levophed, currently phenylephrine), and heparin drip. Echocardiogram and left heart catheterization confirmed poor left ventricular function (EF 1520%, dilated LV) and patent bypass grafts. The patient also experienced aspiration pneumonitis, with Enterobacter cloacae isolated from sputum (sensitive to cefepime); empiric antibiotics were escalated to ertapenem following transient fever and leukocytosis, which have since resolved. Currently, she remains intubated on pressure support (tolerating CPAP trials), minimally following commands. She is on phenylephrine, Lasix drip, and heparin drip, with ongoing close monitoring. Cardiology in agreement to proceed with ICD placement given recurrent arrhythmias. Infectious disease clearance provided for this, as there is no evidence of persistent infection or sepsis (blood cultures negative, leukocytosis resolved). 10/12: awaiting AICD placement 10/13: sputum culture was done for further evaluation of persistent pneumonia , no thick secretions 10/14:Dr. bernardo recommends stopping aminopterin drip and LFTs appear to be improving with this change 10/15:lfts are normalizing , sputum shows krystal colonization 10/16: holding excavation til placement 10/17:s/p AICD placement and tolerated procedure . lfts are normal and off amioterine drip 10/18: sp Status post successful implantation of dual chamber AICD, DX Biotronik, Device was programmed into VDI lower rate of 40 bpm 10/19: unclear if patient aspirated vs developed new infection 10/20: levofed at 2 mics and started on steroids agree with continuing regimen until able to titrate off . suspect aspiration pneumonia , has high tube feed residuals . chest xray shows little changes but there is mild congestion in the right lung base , patient remains hypotensive . blood cultures no growth to date as well as urine cultures .appears to be recovering now that antibiotics have been re initiated Plan: - f/u on blood and urine culture results - continue zosyn - continue antibiotics \-- Maintain phenylephrine drip; titrate as needed to maintain MAP. \-- Monitor neurological status; currently, patient is intermittently following commands and is becoming more alert \-- No evidence of active sepsis or bacteremia at this time. \-- Continue supportive ICU care and multidisciplinary management. Authorized and Performed by: soham gramajo md Total critical care time: Approximately 36 minutes Due to a high probability of clinically significant, life threatening deterioration, the patient required my highest level of preparedness to intervene emergently and I personally spent this critical care time directly and personally managing the patient. This critical care time included obtaining a history; examining the patient; pulse oximetry; ordering and review of studies; arranging urgent treatment with development of a management plan; evaluation of patient's response to treatment; frequent reassessment; and, discussions with other providers. This critical care time was performed to assess and manage the high probability of imminent, life-threatening deterioration that could result in multi-organ failure. It was exclusive of separately billable procedures and treating other patients and teaching time. Isolation Precautions: Standard Plan discussed with: Other Dietary Evaluation Review Comments: 1) TF Jevity 1.2Cal @ 55 ml/hr. x 24hr along with Pro-stat 1 pk daily. Start @ 20ml/hr, increase 10ml/hr Q4H until goal is reached. TF @ goal volume provides 1684 kcal (100% energy needs), 88 gm protein (100% protein needs), 1065 ml free water. 2) Water flush 100ml Q4H if allowed, adjust PRN 3) Advance to cardiac diet as medically feasible 4) Monitor NPO status, lab values, wt trend, I/O Expected Outcomes/Goals: To meet >75% estimated needs within 7 days Lab values to improve Fu 2-3 days SOHAM GRAMAJO MD Oct 31, 2024 22:37
--- NOTE | 2024-10-31 22:41 | DVHPN2 ---
Consult Progress Note Date Seen: Oct 21, 2024 Subjective Patient reports: Other (improving off levofed and whitecount is at 12 . remaisn on minimal vent , no notable fevers since 10/19 ) Objective vital signs Vital Sign Date Time Temp Pulse Resp B/P (MAP) Pulse Ox O2 Delivery O2 Flow Rate FiO2 10/31/24 18:45 55 26 93 10/31/24 18:00 Room Air* 0 21 10/31/24 16:30 97.6 97.6 Total Intake and Output 10/30/24 10/30/24 10/31/24 15:00 23:00 07:00 Intake Total 350 ml 200 ml 0 ml Output Total 150 ml 200 ml Balance 350 ml 50 ml -200 ml medications Current Medications Medications Dose Ordered Sig/Liliam Route Start Time Stop Time Status Last Admin Dose Admin Midazolam HCl 50 ml @ 1 mls/hr Q24H IV 10/07/24 04:45 10/21/24 07:28 4 MLS/HR Ondansetron HCl 4 mg Q4HP PRN IV 10/07/24 10:00 Nitroglycerin 0.4 mg Q5MINP PRN SL 10/07/24 10:00 Pantoprazole Sodium 40 mg DAILY IV 10/07/24 10:00 10/31/24 10:43 40 MG Mexiletine HCl 150 mg TID GT 10/08/24 22:00 10/30/24 05:32 150 MG Acetaminophen 500 mg Q6HP PRN PO 10/08/24 22:30 10/19/24 03:18 500 MG Enteral Nutritional Formula 1,000 ml 55ML/HR GT 10/09/24 18:45 10/22/24 18:55 1,000 ML Phenylephrine HCl 80 mg/Sodium Chloride 250 ml @ 7.5 mls/hr Q24H IV 10/10/24 09:30 10/25/24 23:02 7.5 MLS/HR Esmolol HCl 250 ml @ 0 mls/hr Q0M IV 10/14/24 10:45 Amino Acids 0 ml @ 0 mls/hr PER PHARMACY IV 10/15/24 18:45 Cancel Dextrose 50 ml UD IV 10/16/24 09:30 Cancel Polyethylene Glycol 17 gm DAILYPRN PRN GT 10/17/24 16:45 10/19/24 05:54 17 GM Hydrocortisone Sodium Succinate 50 mg Q6HR IV 10/19/24 18:00 10/31/24 19:46 50 MG Vancomycin HCl 0 ml @ 0 mls/hr UD IV 10/19/24 14:00 Cancel Vasopressin 20 units/Sodium Chloride 100 ml @ 9 mls/hr Q11H7M IV 10/19/24 15:45 Amino Acid Protein 30 ml DAILY GT 10/22/24 10:00 10/28/24 10:24 30 ML Apixaban 2.5 mg BID PO 10/25/24 10:00 Hold Metoclopramide HCl 5 mg BID IV 10/25/24 10:00 Hold 10/25/24 21:32 5 MG Sodium Chloride 10 ml QSHIFT@10,22 IV 10/26/24 22:00 10/31/24 10:43 10 ML Morphine Sulfate 2 mg Q4HPRN PRN IV 10/28/24 10:30 10/28/24 13:59 2 MG Metoprolol Tartrate 12.5 mg BID PO 10/28/24 22:00 10/30/24 09:24 12.5 MG Ertapenem 1 gm/ Sodium Chloride 50 ml @ 100 mls/hr DAILY IV 10/30/24 10:00 10/31/24 10:43 100 MLS/HR Metoprolol Tartrate 2.5 mg Q6HPRN PRN IV 10/31/24 09:15 Dextrose/Sodium Chloride 1,000 ml @ 50 mls/hr Q20H IV 10/31/24 18:45 10/31/24 18:45 50 MLS/HR Physical Exam: General: NAD Neck: Supple. No masses. HEENT: PERRL. Normal lids and conjunctiva. Moist mucous membranes. Oropharynx without lesions, exudates or excessive erythema. Normal appearance of the external aspects of the nose and ears. Heart: Regular rhythm, normal rate. No murmur. No lower extremity edema. Lungs: Normal respiratory effort. Clear to auscultation bilaterally. No wheezes. No crackles. Abdomen: Soft. Non-tender. Non-distended. No masses or abdominal hernia. Normal active bowel sounds. Msk: No digital cyanosis. Normal strength and tone in all 4 limbs. Skin: Warm and dry, no rashes. Neuro: Occasionally follows commands, awake but not fully alert, not consistently following voice or commands. No focal neurological deficits reported. Psych: Not discussed. Oriented to person, place, time, situation: Not fully oriented; intermittently responsive. laboratory and microbiology Laboratory Tests 10/31/24 03:04 Test 10/31/24 03:04 Range/Units Serum Glucose 100 74-106 mg/dL Problem List/Assessment/Plan Problems(with codes): (1) Shock liver (2) Pneumonia (3) Sepsis, unspecified organism (4) Ventricular fibrillation (5) Cardiac arrest Problem List/Assessment/Plan Problems(with codes): (1) Pneumonia (2) Cardiac arrest (3) Ventricular fibrillation (4) Sepsis, unspecified organism Plan/Recommendation ASSESSMENT AND PLAN: ID Problem List: \-- Status post cardiac arrest with return of spontaneous circulation (ROSC) \-- Ventricular tachycardia and atrial fibrillation \-- Recent aspiration event/pneumonitis versus pneumonia, Enterobacter cloacae isolated \-- Severe reduced ejection fraction (EF 1520%), dilated LV, severe global dysfunction \-- History of CABG with stents, mitral ring implant \-- Hypothermia, hypoxia requiring intubation and sedation \-- Sepsis (suspected/treated), leukocytosis (now resolved) \-- Ongoing vasopressor requirement (phenylephrine) \-- ICD placement planned Assessment Ms. Smith is a 54-year-old female with a past medical history notable for prior coronary artery bypass grafting (CABG) with stenting, recent mitral ring implant, and significant cardiac disease. She presented on 10/07 with an acute witnessed cardiac arrest during dinner; initial rhythm was ventricular tachycardia/atrial fibrillation. ROSC was achieved on EMS arrival after a single shock and Narcan administration. She was found to be hypothermic and hypotensive and required intubation for airway protection due to altered mental status. During her ICU course, she had recurrent ventricular tachycardia and atrial fibrillation, managed with antiarrhythmic drip (amiodarone), vasopressors (initially Levophed, currently phenylephrine), and heparin drip. Echocardiogram and left heart catheterization confirmed poor left ventricular function (EF 1520%, dilated LV) and patent bypass grafts. The patient also experienced aspiration pneumonitis, with Enterobacter cloacae isolated from sputum (sensitive to cefepime); empiric antibiotics were escalated to ertapenem following transient fever and leukocytosis, which have since resolved. Currently, she remains intubated on pressure support (tolerating CPAP trials), minimally following commands. She is on phenylephrine, Lasix drip, and heparin drip, with ongoing close monitoring. Cardiology in agreement to proceed with ICD placement given recurrent arrhythmias. Infectious disease clearance provided for this, as there is no evidence of persistent infection or sepsis (blood cultures negative, leukocytosis resolved). 10/12: awaiting AICD placement 10/13: sputum culture was done for further evaluation of persistent pneumonia , no thick secretions 10/14:Dr. bernardo recommends stopping aminopterin drip and LFTs appear to be improving with this change 10/15:lfts are normalizing , sputum shows krystal colonization 10/16: holding excavation til placement 10/17:s/p AICD placement and tolerated procedure . lfts are normal and off amioterine drip 10/18: sp Status post successful implantation of dual chamber AICD, DX Biotronik, Device was programmed into VDI lower rate of 40 bpm 10/19: unclear if patient aspirated vs developed new infection 10/20: levofed at 2 mics and started on steroids agree with continuing regimen until able to titrate off . suspect aspiration pneumonia , has high tube feed residuals . chest xray shows little changes but there is mild congestion in the right lung base , patient remains hypotensive . blood cultures no growth to date as well as urine cultures .appears to be recovering now that antibiotics have been re initiated 10/21:chest xray shows right lower lung base infiltrates , suspect aspiration pneumonia due to high tube feed residuals Plan: - large suspicion for aspiration pneumonia , discontinue vancomycin and continue zosyn for now - if hypoxia remains stable and continues to come off pressers support would discontinue zosyn in 2-3 days - defer to primary and shirt turner team for management - keep maps above 65 - f/u on blood and urine culture results - continue zosyn - continue antibiotics \-- Maintain phenylephrine drip; titrate as needed to maintain MAP. \-- Monitor neurological status; currently, patient is intermittently following commands and is becoming more alert \-- No evidence of active sepsis or bacteremia at this time. \-- Continue supportive ICU care and multidisciplinary management. Authorized and Performed by: soham gramajo md Total critical care time: Approximately 36 minutes Due to a high probability of clinically significant, life threatening deterioration, the patient required my highest level of preparedness to intervene emergently and I personally spent this critical care time directly and personally managing the patient. This critical care time included obtaining a history; examining the patient; pulse oximetry; ordering and review of studies; arranging urgent treatment with development of a management plan; evaluation of patient's response to treatment; frequent reassessment; and, discussions with other providers. This critical care time was performed to assess and manage the high probability of imminent, life-threatening deterioration that could result in multi-organ failure. It was exclusive of separately billable procedures and treating other patients and teaching time. Isolation Precautions: Standard Plan discussed with: Other Dietary Evaluation Review Comments: 1) TF Jevity 1.2Cal @ 55 ml/hr. x 24hr along with Pro-stat 1 pk daily. Start @ 20ml/hr, increase 10ml/hr Q4H until goal is reached. TF @ goal volume provides 1684 kcal (100% energy needs), 88 gm protein (100% protein needs), 1065 ml free water. 2) Water flush 100ml Q4H if allowed, adjust PRN 3) Advance to cardiac diet as medically feasible 4) Monitor NPO status, lab values, wt trend, I/O Expected Outcomes/Goals: To meet >75% estimated needs within 7 days Lab values to improve Fu 2-3 days SOHAM GRAMAJO MD Oct 31, 2024 22:41
[2024-11-01] VITALS (22 sets, daily range): BP systolic 92–129; BP diastolic 46–77; PULSE 55–58; RESP 12–28; TEMP 94.7–98; O2SAT 93–99
[2024-11-01 03:42] LABS: Hematocrit 28.8 % (36.0-46.0); Hemoglobin 9.2 g/dL (12.2-16.2); Mean Corpuscular Hemoglobin 29.0 pg (28.0-32.0); Mean Corpuscular Volume 91.0 fL (80.0-100.0); Nucleated Red Blood Cells % 3.4 %
[2024-11-01 03:45] LABS: INR 2.88 (0.9-1.15); Partial Thromboplastin Time 33.7 SEC (24.5-34.5); Prothrombin Time 27.5 sec (9.3-11.8)
[2024-11-01 05:26] LABS: Anion Gap 12 (5-15); BUN/Creatinine Ratio 39.4 (10.0-20.0); Blood Urea Nitrogen 37 mg/dL (9-23); Carbon Dioxide 22 mmol/L (20-31); Chloride 117 mmol/L (98-107); Glucose 137 mg/dL (74-106); Potassium 3.7 mmol/L (3.5-5.1); Sodium 151 mmol/L (136-145)
[2024-11-01 05:27] LABS: Alanine Aminotransferase 244 U/L (7-40); Albumin 3.0 g/dL (3.2-4.8); Alkaline Phosphatase 139 U/L (46-116); Bilirubin, Total 0.8 mg/dL (0.2-1.0); Calcium 8.8 mg/dL (8.7-10.4); Total Protein 5.4 g/dL (5.7-8.2)
--- NOTE | 2024-11-01 07:54 | DVHPN2 ---
Progress Note - Dictate Date Seen: Nov 01, 2024 Has the PT tested + for MRSA If YES, has PT been informed?: No Medical Necessity Reason Pt with a Central, PICC or Fol: Yes The following are medically ne: PICC Line, Cutler Catheter Reason for cutler catheter: Strict I&O vital signs Vital Sign Date Time Temp Pulse Resp B/P (MAP) Pulse Ox O2 Delivery O2 Flow Rate FiO2 11/01/24 06:00 55 22 119/77 (91) 96 11/01/24 06:00 Room Air* 0 21 11/01/24 00:01 96.7 96.7 Total Intake and Output 10/31/24 10/31/24 11/01/24 15:00 23:00 07:00 Intake Total 50 ml 250 ml 350 ml Output Total 250 ml 250 ml Balance 50 ml 0 ml 100 ml medications Current Medications Medications Dose Ordered Sig/Liliam Route Start Time Stop Time Status Last Admin Dose Admin Midazolam HCl 50 ml @ 1 mls/hr Q24H IV 10/07/24 04:45 10/21/24 07:28 4 MLS/HR Ondansetron HCl 4 mg Q4HP PRN IV 10/07/24 10:00 Nitroglycerin 0.4 mg Q5MINP PRN SL 10/07/24 10:00 Pantoprazole Sodium 40 mg DAILY IV 10/07/24 10:00 10/31/24 10:43 40 MG Mexiletine HCl 150 mg TID GT 10/08/24 22:00 10/30/24 05:32 150 MG Acetaminophen 500 mg Q6HP PRN PO 10/08/24 22:30 10/19/24 03:18 500 MG Enteral Nutritional Formula 1,000 ml 55ML/HR GT 10/09/24 18:45 10/22/24 18:55 1,000 ML Phenylephrine HCl 80 mg/Sodium Chloride 250 ml @ 7.5 mls/hr Q24H IV 10/10/24 09:30 10/25/24 23:02 7.5 MLS/HR Esmolol HCl 250 ml @ 0 mls/hr Q0M IV 10/14/24 10:45 Amino Acids 0 ml @ 0 mls/hr PER PHARMACY IV 10/15/24 18:45 Cancel Dextrose 50 ml UD IV 10/16/24 09:30 Cancel Polyethylene Glycol 17 gm DAILYPRN PRN GT 10/17/24 16:45 10/19/24 05:54 17 GM Hydrocortisone Sodium Succinate 50 mg Q6HR IV 10/19/24 18:00 11/01/24 06:05 50 MG Vancomycin HCl 0 ml @ 0 mls/hr UD IV 10/19/24 14:00 Cancel Vasopressin 20 units/Sodium Chloride 100 ml @ 9 mls/hr Q11H7M IV 10/19/24 15:45 Amino Acid Protein 30 ml DAILY GT 10/22/24 10:00 10/28/24 10:24 30 ML Apixaban 2.5 mg BID PO 10/25/24 10:00 Hold Metoclopramide HCl 5 mg BID IV 10/25/24 10:00 Hold 10/25/24 21:32 5 MG Sodium Chloride 10 ml QSHIFT@10,22 IV 10/26/24 22:00 10/31/24 22:00 10 ML Morphine Sulfate 2 mg Q4HPRN PRN IV 10/28/24 10:30 11/01/24 00:17 2 MG Metoprolol Tartrate 12.5 mg BID PO 10/28/24 22:00 10/30/24 09:24 12.5 MG Ertapenem 1 gm/ Sodium Chloride 50 ml @ 100 mls/hr DAILY IV 10/30/24 10:00 10/31/24 10:43 100 MLS/HR Metoprolol Tartrate 2.5 mg Q6HPRN PRN IV 10/31/24 09:15 Dextrose/Sodium Chloride 1,000 ml @ 50 mls/hr Q20H IV 10/31/24 18:45 10/31/24 18:45 50 MLS/HR laboratory and microbiology Laboratory Tests 11/01/24 04:00 11/01/24 03:06 Test 11/01/24 04:00 Range/Units Serum Glucose 137 H 74-106 mg/dL Assessment/Plan Still in ICU. Extubated. Off pressure support. Awaiting swallowing evaluation. Does not talk. Alert and oriented to self only. Eliquis is still pending to start (INR is still above 2) Patient is a 54-year-old female who was brought to the hospital for witnessed syncope. She is intubated and is being managed in ICU. Information was obtained by reviewing the chart and communicating with patient's son (over the phone). Family recognized witnessed syncope and started CPR and called EMS. Reportedly, EMS found the patient in ventricular fibrillation and shocked the patient and brought the patient to the hospital. Patient was intubated in emergency room and transferred to ICU. Patient was on amiodarone drip. Later the patient had ventricular tachycardia (Systane). High sensitive troponin had been minimally/flatly elevated. Presentation was not in favor of acute coronary syndrome. Cardiology is involved for cardiac aspects of care. Extubated. Does not talk. Alert and oriented to self only. No JVD. Mucosa pale. No carotid bruit. Scattered rhonchi in the lungs is heard. Cardiac: Regular, no thrill. Systolic murmur 2/6 in apex is heard. Abdomen is soft. No edema in extremities. Past medical history as per son: Congenital heart disease, status post bypass WBC: 14.5 - 11.9 - 18.8 - 20.0 - 21.2 - 14.3 - 10.3 - 8.9 - 9.2 - 11.1 - 12.1 - 10.8 - 12.0 - 9.9 - 15.4 - 14.8 - 12.1 - 10.5 - 5.8 - 5.3 - 4.2 - 5.8 - 4.1 - 7.0 - 9.3 - 8.3 - 11.5 - 8.4 Hemoglobin: 10.1 - 9.6 - 9.2 - 8.8 - 8.7 - 8.0 - 8.3 - 8.5 - 7.8 - 10.2 - 10.7 - 9.9 - 9.7 - 9.3 - 9.3 - 8.6 - 8.1 - 7.4 - 7.5 - 7.4 - 7.5 - 7.2 - 7.7 - 7.0 - (post PRBC transfusion) 10.4 - 10 - 9.5 - 10.0 - 9.2 Creatinine: 0.95 - 0.93 - 0.87 - 0.83 - 0.83 - 0.76 - 0.68 - 0.72 - 0.79 - 0.76 - 0.80 - 0.84 - 0.61 - 0.65 - 0.74 - 0.64 - 0.73 - 0.82 - 0.88 - 1.03 - 0.99 - 0.85 - 0.87 - 0.79 - 1.12 - 1.15 - 1.04 - 0.96 - 0.94 Potassium: 3.4 - 4.0 - 4.6 - 3.5 - 3.3 - 4.1 - 3.7 - 3.2 - 3.7 - 4.0 - 3.2 - 3.4 - 3.9 - 4.2 - 3.3 - 3.8 - 3.6 - 3.4 - 4.2 - 3.8 - 4.5 - 4.1 - 3.5 - 4.2 - 3.3 - 2.6 - 3.5 - 3.8 - 2.4 - 2.9 - 4.6 - 2.8 - 4.8 - 4.9 - 3.4 - 3.1 - 3.7 - 4.4 - 3.7 Magnesium: 2.0 - 1.6 - 2.0 - 3.0 - 1.5 - 1.9 - 2.1 - 1.8 - 2.0 - 1.9 - 1.9 - 2.6 - 2.0 - 1.8 - 1.6 - 2.0 - 2.2 - 1.9 - 2.3 - 2.2 - 2.2 - 2.1 - 2.1 - 1.9 2.7 - 2.6 - 2.3 - 2.4 - 2.5 Troponin (high sensitive): 141 - 138 - 117 BNP: 457.16 - 1073.91 AST/ALT: 32/11 - 19/13 - 538/168 - 293/152 - 131/130 - 78/94 - 68/74 - 48/57 - 27/38 - 15/23 - 20/18 - 23/17 - 29/16 - 27/13 - 34/17 - 73/49 - 41/43 - 30/47 - 30/42 - 29/42 - 17/27 - 160/87 - 900/478 - 986/571 - 382/436 - 110/244 Digoxin level: 2.83 - 1.25 - 0.98 UDS: non-revealing Chest x-ray revealed: Lines and Tubes: Endotracheal tube tip projects approximately 1.4 cm above the level of the tyler. Enteric catheter courses below the lateral of the diaphragm and terminates beyond the inferior margin of the image. Right internal jugular central venous catheter terminates within the distal superior vena cava. Lungs: Moderate diffuse increased prominence of the pulmonary vasculature without evidence of focal consolidation. Pleura: No effusion. No pneumothorax. Cardiomediastinal contours: Cardiomegaly. Bones: Unremarkable IMPRESSION: 1. Cardiomegaly and diffuse increased prominence of the pulmonary vasculature. 2. Lines and tubes as above. Repeat chest x-ray revealed: IMPRESSION: 1. Endotracheal tube tip 1.6 cm above the tyler; consider 2 cm retraction 2. Mild pulmonary vascular congestion. Moderate cardiomegaly. Repeat chest xry revealed: IMPRESSION: Endotracheal tube tip 1.6 cm above the tyler; consider 2 cm retraction Mild pulmonary vascular congestion. Moderate cardiomegaly. Repeat chest xry revealed: IMPRESSION: 1. Stable cardiomegaly, small left pleural effusion and mild diffuse increased prominence of the pulmonary vasculature. 2. Repositioned endotracheal tube as above. Remaining lines and tubes unchanged. Repeat chest xry revealed: IMPRESSION: 1. Cardiomegaly, stable diffuse increased prominence of the pulmonary vasculature and small bilateral pleural effusions. 2. Slight interval advancement of endotracheal tube as above. Remaining lines and tubes unchanged. Repeat chest xry revealed: IMPRESSION: 1. Slight interval decrease in diffuse increased prominence of the pulmonary vasculature. 2. Stable cardiomegaly and small left pleural effusion. 3. Lines and tubes unchanged. Repeat chest xry revealed: IMPRESSION: 1. Cardiomegaly and small left pleural effusion. 2. Lines and tubes unchanged. Repeat chest xry revealed: IMPRESSION: Stable lines and tubes. Similar lung aeration. Repeat chest xry revealed: IMPRESSION: Cardiomegaly and small left pleural effusion. Lines and tubes unchanged. Repeat chest xry revealed: IMPRESSION: Placement of a cardiac pacer, no pneumothorax is seen. Stable lines and tubes. Repeat chest xry revealed: IMPRESSION: 1. Worsening mixed opacities in the right lower lung. No other significant change from the previous study. Stable support devices. Repeat chest xry revealed: Heart is prominent in size with postsurgical changes, median sternotomy wires, and a single lead left cardiac defibrillator. Support lines and tubes appear unchanged in satisfactory in position. No sizable effusion or pneumothorax. Mild pulmonary vascular congestion. No significant interval change. Repeat chest xry revealed: IMPRESSION: 1. No significant change from the previous study. Stable support devices. Similar findings of heart failure including left pleural effusion. Repeat chest xry revealed: IMPRESSION: 1. No significant change from the previous study. Stable support devices. Similar findings of heart failure including trace left pleural effusion. Repeat chest xry revealed: Lines and Tubes: Unchanged. Left anterior chest wall cardiac pacing device. Lungs: Clear Pleura: No effusion. No pneumothorax. Cardiomediastinal contours: Cardiomegaly. Bones: Unremarkable IMPRESSION: 1. Cardiomegaly. 2. Lines and tubes unchanged. Repeat chest xry revealed: IMPRESSION: Lines and tubes in satisfactory position. No significant interval change. Liver Ultrasound revealed: Hepatic steatosis. Trace right pleural effusion. Trace ascites Gallstones Bladder ultrasound revealed: IMPRESSION: 1. Cutler catheter in the bladder in the bladder is decompressed. KUB revealed: IMPRESSION: Nonobstructive bowel gas pattern. Nasogastric tube tip in the stomach. Large stool burden. Repeat KUB revealed: Right lower extremity PICC line with tip projecting over the expected region of the intrahepatic IVC. Nasogastric tube projecting towards the distal stomach. Nonspecific bowel gas pattern. Cardiomegaly and left basilar airspace opacities, incompletely characterized. Atherosclerotic calcification disease. Left upper ext arterial duplex: IMPRESSION: No hemodynamically significant stenosis based on peak systolic velocity criteria. Left lower ext arterial duplex: IMPRESSION: There is no evidence for peripheral vascular insufficiency in the left lower extremity. No significant focal stenosis is identified. Liver Ultrasound revealed: Hepatic steatosis. Hepatomegaly. Cholelithiasis. CT of the head revealed: IMPRESSION: No acute intracranial abnormality. Repeat CT of head revealed: IMPRESSION: No acute intracranial abnormality. Echocardiogram reported: lvef 15-20% dilated LV severe global dysfunction mild RV dysfunction biatrial enlargement mild moderate MAC, moderate mitral regurg mild to moderate aortic regug (images of echo reviewed and questioned presence of mitral ring and also some component (moderate of Mitral stenosis) EKG revealed sinus rhythm Telemetry revealed occasions of atrial fibrillation. There was occasional sustained ventricular tachycardia. EMS tele monitor revealed ventricular fibrillation for which the patient was shocked. Has remained sinus rhythm. Later with A-fib with MVR LHC revealed: Patent RICHMOND to LAD; Patent SVG to obtuse marginal; LVEF of 20% with increased EDP; Proximal disease in LAD/LCX RICHIE was performed: Consistent with severely reduced LVEF. Consistent with previously implanted Mitral ring, Up to moderate Mitral stenosis/Mitral Regurgitation and also Moderate Aortic insufficiency. Patient is a 54-year-old female who presented with witnessed syncope. She was found to have ventricular fibrillation for which was shocked. Later had repeated episode of sustained ventricular tachycardia. Patient has been kept in ICU. Does have baseline history of coronary artery disease for which has had bypass surgery. Left heart catheterization was performed which revealed patent RICHMOND and patent SVG. ACS is not considered at this point. It is of note that the patient's echocardiogram reveals significantly use systolic function. Valvular heart disease is considered. Findings are in favor of previously implanted mitral ring. By reviewing the echo images, component of up to moderate mitral stenosis could not be ruled out. LHC was performed that ruled out any active specific ischemia as an etiology for presentation. Is off Amiodarone for abnormal LFT. Being followed by Nephrology / Pulmonary / Neurology / GI ID. Tele has remained sinus rhythm. Had episode of a-fib with RVR. Was loaded with Digoxin. Dig level was performed at wrong timing (only 5 hours after the last Dig given). Dig toxicity is not considered. Patient is back to normal sinus rhythm. Has good kidney function. Repeat Dig level is acceptable level. s/p ICD implantation by EP Syncope V-fib s/p shock Sustained V-tach Paroxysmal A-fib VHD, s/p Mitral ring Systolic heart failure Abnormal LFT, at a point resolved, later appeared again s/p ICD (Biotronik) implantation by EP (Dr Armstrong) s/p PRBC transfusion for significant anemia Hepatic Steatosis Gallstones Cardiac suggestion for management: Manage in ICU Follow up electrolytes and kidney function test and correct abnormalities Full anticoagulation (a-fib with high CHADS-Vasc score). s/p ICD implantation. Awaiting INR below 2.0 (was on warfarin for a while) to start Eliquis Off Amio drip (worsened LFT) (personally discussed with EP: Dr Armstrong who advised to stop / not to restart Amiodarone) On Mexiletine If need for pressure support: use Phenyl Ephrine / vasopressin, keep MAP above 65 (for now off pressure support and tolerating) On Metoprolol to decrease risk of Vtach (as patient has ICD with bradycardia protection: may continue metoprolol in case of bradycardia, but hold: if hypotensive) May consider/add Esmolol for PVC/Vtach (if needed) Does not talk. Alert and oriented to self only. As she has not passed swallowing evaluation: IV Metoprolol if needed (HR above 100) s/p ICD (Biotronik) implantation by EP Off warfarin: Eliquis: 2.5 mg BID (only after INR is below 2.0) s/p PRBC transfusion for anemia Extubated Awaiting swallowing evaluation Pulmonary Follow up GI follow up for worsening liver function tests / fatty liver and gallstones Provide previous medical records from reaching out to previous hospitals in [facility]... Further evaluation and management depends on the above and clinical course. A total of 75 minutes was spent reviewing the patient record, examining the patient, making a diagnostic and therapeutic plan, discussing this plan with medical personnel, following up on diagnostic studies and following the patient for clinical stability excluding any and all procedures. At least 50% of this time was spent in direct, [id number] contact. Thank you for allowing me to participate in this patient's care. Further recommendations will depend on patient's clinical course. Please do not hesitate to contact me if you have any questions or concerns. This medical document was created using electronic medical record system with [id number] computerized dictation system. Although this document has been carefully reviewed, there may still be some phonetic and typographical errors. These areas are purely typographical due to the imperfection of the software programs, and do not reflect any compromise in the patient's medical care. Dietary Evaluation Review Comments: 1) TF Jevity 1.2Cal @ 55 ml/hr. x 24hr along with Pro-stat 1 pk daily. Start @ 20ml/hr, increase 10ml/hr Q4H until goal is reached. TF @ goal volume provides 1684 kcal (100% energy needs), 88 gm protein (100% protein needs), 1065 ml free water. 2) Water flush 100ml Q4H if allowed, adjust PRN 3) Advance to cardiac diet as medically feasible 4) Monitor NPO status, lab values, wt trend, I/O Expected Outcomes/Goals: To meet >75% estimated needs within 7 days Lab values to improve Fu 2-3 days Plan discussed with: Other (nurse) CORDELL VERA MD Nov 01, 2024 07:54
--- NOTE | 2024-11-01 10:18 | DVHPN2 ---
Progress Note - Dictate Date Seen: Nov 01, 2024 Has the PT tested + for MRSA If YES, has PT been informed?: No Medical Necessity Reason Pt with a Central, PICC or Fol: Yes The following are medically ne: PICC Line, Cutler Catheter Reason for cutler catheter: Strict I&O vital signs Vital Sign Date Time Temp Pulse Resp B/P (MAP) Pulse Ox O2 Delivery O2 Flow Rate FiO2 11/01/24 06:00 55 22 119/77 (91) 96 11/01/24 06:00 Room Air* 0 21 11/01/24 00:01 96.7 96.7 Total Intake and Output 10/31/24 10/31/24 11/01/24 15:00 23:00 07:00 Intake Total 50 ml 250 ml 350 ml Output Total 250 ml 250 ml Balance 50 ml 0 ml 100 ml medications Current Medications Medications Dose Ordered Sig/Liliam Route Start Time Stop Time Status Last Admin Dose Admin Midazolam HCl 50 ml @ 1 mls/hr Q24H IV 10/07/24 04:45 10/21/24 07:28 4 MLS/HR Ondansetron HCl 4 mg Q4HP PRN IV 10/07/24 10:00 Nitroglycerin 0.4 mg Q5MINP PRN SL 10/07/24 10:00 Pantoprazole Sodium 40 mg DAILY IV 10/07/24 10:00 10/31/24 10:43 40 MG Mexiletine HCl 150 mg TID GT 10/08/24 22:00 10/30/24 05:32 150 MG Acetaminophen 500 mg Q6HP PRN PO 10/08/24 22:30 10/19/24 03:18 500 MG Enteral Nutritional Formula 1,000 ml 55ML/HR GT 10/09/24 18:45 10/22/24 18:55 1,000 ML Phenylephrine HCl 80 mg/Sodium Chloride 250 ml @ 7.5 mls/hr Q24H IV 10/10/24 09:30 10/25/24 23:02 7.5 MLS/HR Esmolol HCl 250 ml @ 0 mls/hr Q0M IV 10/14/24 10:45 Amino Acids 0 ml @ 0 mls/hr PER PHARMACY IV 10/15/24 18:45 Cancel Dextrose 50 ml UD IV 10/16/24 09:30 Cancel Polyethylene Glycol 17 gm DAILYPRN PRN GT 10/17/24 16:45 10/19/24 05:54 17 GM Hydrocortisone Sodium Succinate 50 mg Q6HR IV 10/19/24 18:00 11/01/24 06:05 50 MG Vancomycin HCl 0 ml @ 0 mls/hr UD IV 10/19/24 14:00 Cancel Vasopressin 20 units/Sodium Chloride 100 ml @ 9 mls/hr Q11H7M IV 10/19/24 15:45 Amino Acid Protein 30 ml DAILY GT 10/22/24 10:00 10/28/24 10:24 30 ML Apixaban 2.5 mg BID PO 10/25/24 10:00 Hold Metoclopramide HCl 5 mg BID IV 10/25/24 10:00 Hold 10/25/24 21:32 5 MG Sodium Chloride 10 ml QSHIFT@10,22 IV 10/26/24 22:00 10/31/24 22:00 10 ML Morphine Sulfate 2 mg Q4HPRN PRN IV 10/28/24 10:30 11/01/24 00:17 2 MG Metoprolol Tartrate 12.5 mg BID PO 10/28/24 22:00 10/30/24 09:24 12.5 MG Ertapenem 1 gm/ Sodium Chloride 50 ml @ 100 mls/hr DAILY IV 10/30/24 10:00 10/31/24 10:43 100 MLS/HR Metoprolol Tartrate 2.5 mg Q6HPRN PRN IV 10/31/24 09:15 Dextrose/Sodium Chloride 1,000 ml @ 50 mls/hr Q20H IV 10/31/24 18:45 10/31/24 18:45 50 MLS/HR objective General Appearance: no distress HEENT: EOMI, PERRLA, normal external inspect of ears, no icterus, no nasal drainage Neck: no carotid bruit, no jugular venous distention (JVD), no lymphadenopathy Chest: normal thorax Respiratory: Intubated, clear to auscultation, normal air movement Cardiovascular: regular rate and rhythm, no diastolic murmur, no jugular venous distention (JVD), no rub, no systolic murmur Abdominal: soft, no hepatomegaly, no mass, no splenomegaly, no tenderness Genitourinary: grossly normal external Musculoskeletal: no joint tenderness, no swelling Extremities: normal pulses, no calf tenderness, no clubbing, no cyanosis, no edema Skin: no bruising, no jaundice, no rash Neurological: No focal deficit laboratory and microbiology Laboratory Tests 11/01/24 04:00 11/01/24 03:06 Test 11/01/24 04:00 Range/Units Serum Glucose 137 H 74-106 mg/dL Problem List Cardiac Arrest with Ventricular Fibrillation Assessment: Patient experienced cardiac arrest with ventricular fibrillation on 10/07/24, witnessed by family members who initiated CPR. EMS found the patient in ventricular fibrillation and administered shock therapy. Rhythm strip analysis confirmed ventricular fibrillation. Patient required intubation and sedation upon ED arrival. Currently admitted to ICU for close observation. Cardiology has been consulted and plans for AICD placement, likely on Tuesday. Infectious disease clearance has been obtained for the AICD procedure, addressing initial concerns of leukocytosis which is now improving. Status post-cardiac arrest. Plan: - Continue ICU monitoring - Proceed with AICD placement as planned (likely Tuesday), cleared by infectious disease. - Maintain intubation and sedation until AICD placement - Continue Heparin drip for paroxysmal atrial fibrillation - Continue Mexitil - DC amiodarone due to transaminitis - added esmolol drip per Cardiology for AFib and added push doses of digoxin Coronary Artery Disease Assessment: Patient with history of 2-vessel CABG (Coronary Artery Bypass Grafting). Surgical intervention previously performed to address significant coronary artery stenosis. Plan: - Continue medical management - Follow up with cardiology for ongoing coronary artery disease management Acute and Chronic Systolic Heart Failure Assessment: Patient has acute and chronic systolic heart failure with severely reduced left ventricular function. Ejection fraction is estimated at 15-20%. RICHIE findings are consistent with severely reduced left ventricular ejection fraction, previously implanted mitral ring, up to moderate mitral stenosis and regurgitation, and moderate aortic insufficiency. Plan: - Continue cardiology consultation - continue IV diuretics (IV Lasix) - Monitor renal function Acute Hypoxic Respiratory Failure Assessment: Patient is currently intubated due to acute hypoxic respiratory failure. Dr. Downey from pulmonology is managing this aspect of care. Plan: - Maintain current intubation as per pulmonology recommendation - Proceed with CPAP trials when deemed appropriate by pulmonology Transaminitis Assessment: Patient has elevated liver function tests, likely secondary to amiodarone use. Cardiology has discontinued amiodarone in response. Plan: - Monitor liver function tests - Amiodarone discontinued as per cardiology Enterobacter PNA Assessment: Sputum culture positive for Enterobacter. Plan: - Continue treatment with Eratapenem to complete 10 days regimen -Infectious disease consult Hemodynamic Support Assessment: Patient requires vasopressor support for hemodynamic stability. Plan: - Continue vasopressin - Continue neosynephrine Paroxysmal a fib -DC amiodarone -continue with heparin gtt Shock liver GI consult, trend liver enzymes, hepatitis panel was negative. Ultrasound of the liver had no acute findings. Assessment/Plan Subjective: Patient is A and O x 1. Objective: Patient has metabolic encephalopathy. CT scan of the head as no acute findings. Patient is status postcardiac arrest status post AICD placement. Patient has hyponatremia. Sodium is 151. Patient's liver enzymes are improving. Patient failed her swallow eval. Estimated EF is 20%. I did update patient's son Amanuel in regards to plan of care. Plan: Continue D5.45 for hyponatremia. Restart Clinimix for additional nutritional support. Patient failed her swallow eval. Monitor liver enzymes. Monitor EKG. Monitor neurostatus. Dietary Evaluation Review Comments: 1) TF Jevity 1.2Cal @ 55 ml/hr. x 24hr along with Pro-stat 1 pk daily. Start @ 20ml/hr, increase 10ml/hr Q4H until goal is reached. TF @ goal volume provides 1684 kcal (100% energy needs), 88 gm protein (100% protein needs), 1065 ml free water. 2) Water flush 100ml Q4H if allowed, adjust PRN 3) Advance to cardiac diet as medically feasible 4) Monitor NPO status, lab values, wt trend, I/O Expected Outcomes/Goals: To meet >75% estimated needs within 7 days Lab values to improve Fu 2-3 days Plan discussed with: Patient, Other BRODIE GARVIN JTAC Nov 01, 2024 10:18
--- NOTE | 2024-11-01 10:24 | DVHPN2 ---
Progress Note Has the PT tested + for MRSA If YES, has PT been informed?: No Medical Necessity Reason Pt with a Central, PICC or Fol: Yes The following are medically ne: PICC Line, Cutler Catheter Reason for cutler catheter: Strict I&O Objective vital signs Vital Sign Date Time Temp Pulse Resp B/P (MAP) Pulse Ox O2 Delivery O2 Flow Rate FiO2 11/01/24 06:00 55 22 119/77 (91) 96 11/01/24 06:00 Room Air* 0 21 11/01/24 00:01 96.7 96.7 Total Intake and Output 10/31/24 10/31/24 11/01/24 15:00 23:00 07:00 Intake Total 50 ml 250 ml 350 ml Output Total 250 ml 250 ml Balance 50 ml 0 ml 100 ml medications Current Medications Medications Dose Ordered Sig/Liliam Route Start Time Stop Time Status Last Admin Dose Admin Midazolam HCl 50 ml @ 1 mls/hr Q24H IV 10/07/24 04:45 10/21/24 07:28 4 MLS/HR Ondansetron HCl 4 mg Q4HP PRN IV 10/07/24 10:00 Nitroglycerin 0.4 mg Q5MINP PRN SL 10/07/24 10:00 Pantoprazole Sodium 40 mg DAILY IV 10/07/24 10:00 10/31/24 10:43 40 MG Mexiletine HCl 150 mg TID GT 10/08/24 22:00 10/30/24 05:32 150 MG Acetaminophen 500 mg Q6HP PRN PO 10/08/24 22:30 10/19/24 03:18 500 MG Enteral Nutritional Formula 1,000 ml 55ML/HR GT 10/09/24 18:45 10/22/24 18:55 1,000 ML Phenylephrine HCl 80 mg/Sodium Chloride 250 ml @ 7.5 mls/hr Q24H IV 10/10/24 09:30 10/25/24 23:02 7.5 MLS/HR Esmolol HCl 250 ml @ 0 mls/hr Q0M IV 10/14/24 10:45 Amino Acids 0 ml @ 0 mls/hr PER PHARMACY IV 10/15/24 18:45 Cancel Dextrose 50 ml UD IV 10/16/24 09:30 Cancel Polyethylene Glycol 17 gm DAILYPRN PRN GT 10/17/24 16:45 10/19/24 05:54 17 GM Hydrocortisone Sodium Succinate 50 mg Q6HR IV 10/19/24 18:00 11/01/24 06:05 50 MG Vancomycin HCl 0 ml @ 0 mls/hr UD IV 10/19/24 14:00 Cancel Vasopressin 20 units/Sodium Chloride 100 ml @ 9 mls/hr Q11H7M IV 10/19/24 15:45 Amino Acid Protein 30 ml DAILY GT 10/22/24 10:00 10/28/24 10:24 30 ML Apixaban 2.5 mg BID PO 10/25/24 10:00 Hold Metoclopramide HCl 5 mg BID IV 10/25/24 10:00 Hold 10/25/24 21:32 5 MG Sodium Chloride 10 ml QSHIFT@10,22 IV 10/26/24 22:00 10/31/24 22:00 10 ML Morphine Sulfate 2 mg Q4HPRN PRN IV 10/28/24 10:30 11/01/24 00:17 2 MG Metoprolol Tartrate 12.5 mg BID PO 10/28/24 22:00 10/30/24 09:24 12.5 MG Ertapenem 1 gm/ Sodium Chloride 50 ml @ 100 mls/hr DAILY IV 10/30/24 10:00 10/31/24 10:43 100 MLS/HR Metoprolol Tartrate 2.5 mg Q6HPRN PRN IV 10/31/24 09:15 Dextrose/Sodium Chloride 1,000 ml @ 50 mls/hr Q20H IV 10/31/24 18:45 10/31/24 18:45 50 MLS/HR laboratory and microbiology Laboratory Tests 11/01/24 04:00 11/01/24 03:06 Test 11/01/24 04:00 Range/Units Serum Glucose 137 H 74-106 mg/dL Microbiology Date/Time Source Procedure Growth Status 10/20/24 04:00 Sputum Gram Stain - Final Complete 10/20/24 04:00 Respiratory Culture - Final Enterobacter cloacae Yeast, not Ilda albicans Complete 10/20/24 01:03 Urine - Cutler Port Urine Culture - Final Yeast, not Ilda albicans Complete 10/19/24 13:02 Blood Blood Culture - Final NO GROWTH AFTER 5 DAYS OF INCUBATION. Complete 10/07/24 16:50 Nose MRSA Screen - Final Complete Problem List/Assessment/Plan Problem List/Assessment/Plan Possible acute cholecystitis Ventricular fibrillation S/p cardiopulmonary arrest with shock Heart failure with reduced ejection fraction 15-20% Metabolic versus hypoxic encephalopathy Acute hepatocellular injury likely shock liver Cholelithiasis without acute inflammation Nonalcoholic fatty liver disease with steatohepatitis Community-acquired pneumonia growing Enterobacter Plan: Liver function tests downtrending appropriately Patient already on steroids Surgical consult Hemoglobin stable, transfuse if HB 7 or less Continue tube feedings Swallow eval Decreased metoclopramide to 5 mg IV b.i.d. JAIDEN positive, outpatient follow up with GI recommended for further workup Thank you so much for the opportunity to consult on your patient. GI team will follow the patient. In case of any questions or concerns please feel free to reach out. Plan discussed with Dr. Anglin Dietary Evaluation Review Comments: 1) TF Jevity 1.2Cal @ 55 ml/hr. x 24hr along with Pro-stat 1 pk daily. Start @ 20ml/hr, increase 10ml/hr Q4H until goal is reached. TF @ goal volume provides 1684 kcal (100% energy needs), 88 gm protein (100% protein needs), 1065 ml free water. 2) Water flush 100ml Q4H if allowed, adjust PRN 3) Advance to cardiac diet as medically feasible 4) Monitor NPO status, lab values, wt trend, I/O Expected Outcomes/Goals: To meet >75% estimated needs within 7 days Lab values to improve Fu 2-3 days ETHAN SWAN RESIDENT Nov 01, 2024 10:24
--- NOTE | 2024-11-01 10:38 | DVHPN2 ---
Progress Note - Dictate Date Seen: Nov 01, 2024 Has the PT tested + for MRSA If YES, has PT been informed?: No Medical Necessity Reason Pt with a Central, PICC or Fol: Yes The following are medically ne: PICC Line, Cutler Catheter Reason for cutler catheter: Strict I&O Subjective Ms. Smith is a 54 years old female who was brought to the [facility] on 10/07/2024 with a chief complaint of cardiopulmonary arrest/status post CPR. I have seen and examined the patient, I have discussed with her nurse, she is awake, she is oriented to person, place, she follows verbal commands, her voice is weak, she failed swallow evaluation She can move the extremities, but is not able to sit up without support She received pacemaker insertion on 10/17/2024 Blood culture, 10/09/2024: No growth Blood culture, 10/19/2024: UDS, 10/07/2024: Negative Urinalysis, 10/07/2024: Leukocyte esterase: Negative WBC/HB/PLT/MCV, 10/09/2024: 20/8.8/219/94.6, 10/10/2024: 21.2/8.7/232/92.2 PT/INR/PTT, 10/08/2024: 12.4/1.19/72.7, 10/09/2024: 13.1/1.26/68.9, 10/10/2024: 14.4/2/1.38/35.3 CMP, 10/08/2024: Unremarkable Troponin one high sensitivity, 10/07/2024: 141, 138, 117 TBI/AST/ALT/AP, 10/10/2024: 0.5/538/168/144, 10/11/2024: 0.6/293/199/152, 10/14/2024: 0.8/68/74/124 TG/HDL/LDL/HDL, 10/07/24: 71/66/31/21 EKG 10/10/2024: Atrial fibrillation EKG, 10/15/2024: Atrial fibrillation Echocardiogram, 10/07/2024: lvef 15-20% dilated LV severe global dysfunction mild RV dysfunction biatrial enlargement mild moderate MAC, moderate mitral regurg mild to moderate aortic regug RICHIE, 10/08/2024: 1. Left ventricle: Dilated LV was seen. LVEF was 25%. There was diffuse hypokinesis of left ventricle. 2. Right ventricle: RV was mildly dilated. 3. Left atrium: LA enlarged 4. Right atrium: RA was enlarged. 5. Mitral valve: Mitral was thickened with reduced opening. Moderate Mitral regurgitation was seen. Planinomentry of valve (TTE images also obtained) revealed MVA of 2.1 cm. Mean pressure gradient (obtained from limited TTE images) was 5. Images are consistent with previously implanted Ring in Mitral position. Consistent with up to Moderate Mitral stenosis. . There was no vegetation 6. Left atrial appendage: No evidence of thrombus. 7. Aortic valve: Trileaflet valve. No stenosis. Up to moderate Aortic Insufficiency was seen. There was no vegetation 8. Pulmonic valve: Trivial pulmonic insufficiency. No significant stenosis. 9. Tricuspid valve: Mild tricuspid regurgitation. There was no vegetation 10. Interatrial septum: Negative color flow for right to left shunt was observed. Bubble study was performed: negative for shunt 11. Pericardium: No significant effusion. 12. Thoracic aorta: No significant plaquing. Chest x-ray, 10/27/2024: 1. Cardiomegaly, stable diffuse increased prominence of the pulmonary vasculature and small bilateral pleural effusions. 2. Slight interval advancement of endotracheal tube as above. Remaining lines and tubes unchanged. CT head, 10/07/2024: No acute intracranial abnormality General: the patient is well developed and nourished. No acute distress. Intubated CT head, 10/07/2024: No acute intracranial abnormality. CT head, 10/11/2024: No acute intracranial abnormality vital signs Vital Sign Date Time Temp Pulse Resp B/P (MAP) Pulse Ox O2 Delivery O2 Flow Rate FiO2 11/01/24 06:00 55 22 119/77 (91) 96 11/01/24 06:00 Room Air* 0 21 11/01/24 00:01 96.7 96.7 Total Intake and Output 10/31/24 10/31/24 11/01/24 15:00 23:00 07:00 Intake Total 50 ml 250 ml 350 ml Output Total 250 ml 250 ml Balance 50 ml 0 ml 100 ml medications Current Medications Medications Dose Ordered Sig/Liliam Route Start Time Stop Time Status Last Admin Dose Admin Midazolam HCl 50 ml @ 1 mls/hr Q24H IV 10/07/24 04:45 10/21/24 07:28 4 MLS/HR Ondansetron HCl 4 mg Q4HP PRN IV 10/07/24 10:00 Nitroglycerin 0.4 mg Q5MINP PRN SL 10/07/24 10:00 Pantoprazole Sodium 40 mg DAILY IV 10/07/24 10:00 11/01/24 10:26 40 MG Mexiletine HCl 150 mg TID GT 10/08/24 22:00 10/30/24 05:32 150 MG Acetaminophen 500 mg Q6HP PRN PO 10/08/24 22:30 10/19/24 03:18 500 MG Enteral Nutritional Formula 1,000 ml 55ML/HR GT 10/09/24 18:45 10/22/24 18:55 1,000 ML Phenylephrine HCl 80 mg/Sodium Chloride 250 ml @ 7.5 mls/hr Q24H IV 10/10/24 09:30 10/25/24 23:02 7.5 MLS/HR Esmolol HCl 250 ml @ 0 mls/hr Q0M IV 10/14/24 10:45 Amino Acids 0 ml @ 0 mls/hr PER PHARMACY IV 10/15/24 18:45 Cancel Dextrose 50 ml UD IV 10/16/24 09:30 Cancel Polyethylene Glycol 17 gm DAILYPRN PRN GT 10/17/24 16:45 10/19/24 05:54 17 GM Hydrocortisone Sodium Succinate 50 mg Q6HR IV 10/19/24 18:00 11/01/24 06:05 50 MG Vancomycin HCl 0 ml @ 0 mls/hr UD IV 10/19/24 14:00 Cancel Vasopressin 20 units/Sodium Chloride 100 ml @ 9 mls/hr Q11H7M IV 10/19/24 15:45 Amino Acid Protein 30 ml DAILY GT 10/22/24 10:00 10/28/24 10:24 30 ML Apixaban 2.5 mg BID PO 10/25/24 10:00 Hold Metoclopramide HCl 5 mg BID IV 10/25/24 10:00 Hold 10/25/24 21:32 5 MG Sodium Chloride 10 ml QSHIFT@10,22 IV 10/26/24 22:00 11/01/24 10:26 10 ML Morphine Sulfate 2 mg Q4HPRN PRN IV 10/28/24 10:30 11/01/24 00:17 2 MG Metoprolol Tartrate 12.5 mg BID PO 10/28/24 22:00 10/30/24 09:24 12.5 MG Ertapenem 1 gm/ Sodium Chloride 50 ml @ 100 mls/hr DAILY IV 10/30/24 10:00 10/31/24 10:43 100 MLS/HR Metoprolol Tartrate 2.5 mg Q6HPRN PRN IV 10/31/24 09:15 Dextrose/Sodium Chloride 1,000 ml @ 50 mls/hr Q20H IV 10/31/24 18:45 10/31/24 18:45 50 MLS/HR objective The patient is well-nourished and well-developed with no distress. The patient is intubated MENTAL STATUS: Subjective CRANIAL NERVES: Pupils are equal, round and reactive. EOMs full and conjugate. Facial sensation intact in all three divisions bilaterally. Mandibular strength intact. Facial muscles symmetrical and strength intact. SENSATION: Okay to pinprick and light touch MOTOR: Normal tone in the upper and lower extremity. Normal muscle bulk. No fasciculations. She move the arms and legs REFLEXES: Deep tendon reflexes are symmetrical. No pathological reflexes. CEREBELLAR/COORDINATION: Deferred GAIT/STATION: deferred. laboratory and microbiology Laboratory Tests 11/01/24 04:00 11/01/24 03:06 Test 11/01/24 04:00 Range/Units Serum Glucose 137 H 74-106 mg/dL Problem List Cardiopulmonary arrest Status post CPR Metabolic encephalopathy Hypoxic encephalopathy Congestive heart failure Leukocytosis/sepsis/septic shock Respiratory failure Elevated liver function tests AFib S/P pacemaker insertion on 10/17/2024 Assessment/Plan Monitoring Supportive treatment ICU care Stabilize vitals Respiratory support PRN Hold off Lipitor (elevated liver function tests), LDL (31) (home medications included Lipitor 40 mg daily) DVT prophylaxis GI prophylaxis Cardiology on case Pulmonology on case Nephrology on case Consult GI Re: Elevated liver function tests Need more history This medical document was created using an electronic medical record system with [employer] system. Although this document has been carefully reviewed, there may still be some phonetic and typographical errors. These areas are purely typographical due to imperfections of the software programs, and do not reflect any compromise in the patient's medical care. Prognosis poor Dietary Evaluation Review Comments: 1) TF Jevity 1.2Cal @ 55 ml/hr. x 24hr along with Pro-stat 1 pk daily. Start @ 20ml/hr, increase 10ml/hr Q4H until goal is reached. TF @ goal volume provides 1684 kcal (100% energy needs), 88 gm protein (100% protein needs), 1065 ml free water. 2) Water flush 100ml Q4H if allowed, adjust PRN 3) Advance to cardiac diet as medically feasible 4) Monitor NPO status, lab values, wt trend, I/O Expected Outcomes/Goals: To meet >75% estimated needs within 7 days Lab values to improve Fu 2-3 days Plan discussed with: Other CAROLINE ROBB MD Nov 01, 2024 10:38
[2024-11-01] MEDS ORDERED: CLINIMIX PER PHARMACY 0 ML IV SCH (11:00)
--- NOTE | 2024-11-01 11:39 | DVH ---
CHEST RADIOGRAPH Indication: f/u Technique: Single frontal view of the chest was obtained Comparison: XY CHEST PORTABLE on DOS: 10/30/24, XY CHEST PORTABLE on DOS: 10/29/24, XY CHEST PORTABLE on DOS: 10/28/24, XY CHEST PORTABLE on DOS: 10/27/24, XY CHEST PORTABLE on DOS: 10/26/24, XY CHEST PORTABLE on DOS: 10/30/24 FINDINGS: Lines and Tubes: ET tube and NG tube removed. Lungs: Congestion Pleura: No effusion. No pneumothorax. Cardiomediastinal contours: Cardiomegaly Bones: Unremarkable IMPRESSION: 1. Cardiomegaly with CHF.
[2024-11-01 11:45] LABS: Triglycerides 131.0 mg/dL (< 150)
[2024-11-01 11:46] LABS: Magnesium 2.3 mg/dL (1.6-2.6)
--- NOTE | 2024-11-01 11:49 | DVHPN2 ---
Progress Note Date Seen: Nov 01, 2024 Resident Creating Document: ETHAN SWAN RESIDENT Has the PT tested + for MRSA If YES, has PT been informed?: No Medical Necessity Reason Pt with a Central, PICC or Fol: Yes The following are medically ne: PICC Line, Cutler Catheter Reason for cutler catheter: Strict I&O Subjective Review of Systems Patient seen and examined at bedside S/p extubation on 10/30/2024 AO times 1 Failed swallow eval yesterday Objective vital signs Vital Sign Date Time Temp Pulse Resp B/P (MAP) Pulse Ox O2 Delivery O2 Flow Rate FiO2 11/01/24 06:00 55 22 119/77 (91) 96 11/01/24 06:00 Room Air* 0 21 11/01/24 00:01 96.7 96.7 Total Intake and Output 10/31/24 10/31/24 11/01/24 15:00 23:00 07:00 Intake Total 50 ml 250 ml 350 ml Output Total 250 ml 250 ml Balance 50 ml 0 ml 100 ml medications Current Medications Medications Dose Ordered Sig/Liliam Route Start Time Stop Time Status Last Admin Dose Admin Midazolam HCl 50 ml @ 1 mls/hr Q24H IV 10/07/24 04:45 10/21/24 07:28 4 MLS/HR Ondansetron HCl 4 mg Q4HP PRN IV 10/07/24 10:00 Nitroglycerin 0.4 mg Q5MINP PRN SL 10/07/24 10:00 Pantoprazole Sodium 40 mg DAILY IV 10/07/24 10:00 11/01/24 10:26 40 MG Mexiletine HCl 150 mg TID GT 10/08/24 22:00 10/30/24 05:32 150 MG Acetaminophen 500 mg Q6HP PRN PO 10/08/24 22:30 10/19/24 03:18 500 MG Enteral Nutritional Formula 1,000 ml 55ML/HR GT 10/09/24 18:45 10/22/24 18:55 1,000 ML Phenylephrine HCl 80 mg/Sodium Chloride 250 ml @ 7.5 mls/hr Q24H IV 10/10/24 09:30 10/25/24 23:02 7.5 MLS/HR Esmolol HCl 250 ml @ 0 mls/hr Q0M IV 10/14/24 10:45 Amino Acids 0 ml @ 0 mls/hr PER PHARMACY IV 10/15/24 18:45 Cancel Dextrose 50 ml UD IV 10/16/24 09:30 Cancel Polyethylene Glycol 17 gm DAILYPRN PRN GT 10/17/24 16:45 10/19/24 05:54 17 GM Hydrocortisone Sodium Succinate 50 mg Q6HR IV 10/19/24 18:00 11/01/24 06:05 50 MG Vancomycin HCl 0 ml @ 0 mls/hr UD IV 10/19/24 14:00 Cancel Vasopressin 20 units/Sodium Chloride 100 ml @ 9 mls/hr Q11H7M IV 10/19/24 15:45 Amino Acid Protein 30 ml DAILY GT 10/22/24 10:00 10/28/24 10:24 30 ML Apixaban 2.5 mg BID PO 10/25/24 10:00 Hold Metoclopramide HCl 5 mg BID IV 10/25/24 10:00 Hold 10/25/24 21:32 5 MG Sodium Chloride 10 ml QSHIFT@10,22 IV 10/26/24 22:00 11/01/24 10:26 10 ML Morphine Sulfate 2 mg Q4HPRN PRN IV 10/28/24 10:30 11/01/24 00:17 2 MG Metoprolol Tartrate 12.5 mg BID PO 10/28/24 22:00 10/30/24 09:24 12.5 MG Ertapenem 1 gm/ Sodium Chloride 50 ml @ 100 mls/hr DAILY IV 10/30/24 10:00 11/01/24 10:32 100 MLS/HR Metoprolol Tartrate 2.5 mg Q6HPRN PRN IV 10/31/24 09:15 Dextrose/Sodium Chloride 1,000 ml @ 50 mls/hr Q20H IV 10/31/24 18:45 10/31/24 18:45 50 MLS/HR Amino Acids 0 ml @ 0 mls/hr PER PHARMACY IV 11/01/24 11:00 Examination General Appearance: Sedated, intubated on mechanical ventilation Head Exam: Normal inspection. Constricted equal and reactive pupils Neck Exam: Normal inspection. Non-tender. Normal alignment Pulmonary/Respiratory: Chest non-tender. Trace crackles Peripheral Pulses 2+ Pedal (R). 2+ Pedal (L) Abdominal Exam: Normal bowel sounds. Soft. Nontender Skin Exam: Normal inspection. Normal color. Warm. Dry laboratory and microbiology Laboratory Tests 11/01/24 04:00 11/01/24 03:06 Test 11/01/24 04:00 Range/Units Serum Glucose 137 H 74-106 mg/dL Microbiology Date/Time Source Procedure Growth Status 10/20/24 04:00 Sputum Gram Stain - Final Complete 10/20/24 04:00 Respiratory Culture - Final Enterobacter cloacae Yeast, not Ilda albicans Complete 10/20/24 01:03 Urine - Cutler Port Urine Culture - Final Yeast, not Ilda albicans Complete 10/19/24 13:02 Blood Blood Culture - Final NO GROWTH AFTER 5 DAYS OF INCUBATION. Complete 10/07/24 16:50 Nose MRSA Screen - Final Complete Labs and/or images reviewed: Labs reviewed by me, Image(s) reviewed by me Problem List/Assessment/Plan Problem List/Assessment/Plan Questionable acute cholecystitis Ventricular fibrillation S/p cardiopulmonary arrest with shock Heart failure with reduced ejection fraction 15-20% Metabolic versus hypoxic encephalopathy Acute hepatocellular injury likely shock liver Cholelithiasis without acute inflammation Nonalcoholic fatty liver disease with steatohepatitis Community-acquired pneumonia growing Enterobacter Plan: Liver function tests downtrending appropriately; AST 110, ALT 244, ALP 139 Hemoglobin stable, transfuse if HB 7 or less Continue tube feedings as patient failed swallow eval Decreased metoclopramide to 5 mg IV b.i.d. JAIDNE positive, outpatient follow up with GI recommended for further workup Thank you so much for the opportunity to consult on your patient. GI team will follow the patient. In case of any questions or concerns please feel free to reach out. Plan discussed with Dr. Anglin Plan discussed with: Other (RN) Dietary Evaluation Review Comments: 1) TF Jevity 1.2Cal @ 55 ml/hr. x 24hr along with Pro-stat 1 pk daily. Start @ 20ml/hr, increase 10ml/hr Q4H until goal is reached. TF @ goal volume provides 1684 kcal (100% energy needs), 88 gm protein (100% protein needs), 1065 ml free water. 2) Water flush 100ml Q4H if allowed, adjust PRN 3) Advance to cardiac diet as medically feasible 4) Monitor NPO status, lab values, wt trend, I/O Expected Outcomes/Goals: To meet >75% estimated needs within 7 days Lab values to improve Fu 2-3 days ETHAN SWAN RESIDENT Nov 01, 2024 11:49
--- NOTE | 2024-11-01 11:51 | DVH ---
EXAM: CT STROKE CTH INDICATION: Stroke TECHNIQUE: CT of the head without intravenous contrast. Radiation Dose : 1. Head: CT Dose: CTDI volume is 56.53 mGy. Dose-length product is 1001.01 mGy*cm The dose indicators for CT are the volume Computed Tomography (CT) Dose Index (CTDIvol) and the Dose Length Product (DLP), and are measured in units of mGy and mGy-cm, respectively. These indicators are not patient dose, but values generated from the CT scanner acquisition factors. The report includes radiation exposure data for exposures received during this examination. COMPARISON: CT HEAD WITHOUT CONTRAST on DOS: 10/11/24, CT HEAD WITHOUT CONTRAST on DOS: 10/07/24 FINDINGS: There is no evidence of acute intracranial hemorrhage, extra-axial collection, mass effect, midline s hift, herniation or hydrocephalus. The ventricles, sulci and cisterns are age appropriate. The smith-white differentiation is intact. Patchy periventricular and subcortical white matter hypoattenuation is nonspecific but may be related to small vessel ischemic disease. Moderate opacification of bilateral mastoid air cells. The surrounding soft tissues and osseous structures are unremarkable. IMPRESSION: No acute intracranial abnormality. Radiation optimization: All CT scans at this facility use at least one of these dose optimization rubens hniques: automated exposure control mA and/or kV adjustment per patient size (includes targeted exam s where dose is matched to clinical indication) or iterative reconstruction.
[2024-11-01] MEDS: POTASSIUM CHL 20MEQ/100ML 100 ML IV ONE (13:29)
[2024-11-01] MEDS: ACCU-CHEK COMFORT CURVE STRIP VI SCH (13:50)
[2024-11-01] MEDS: InsuLIN REG 1unit/0.01ml Soln (100units/ml) SC SCH (13:51)
[2024-11-01] MEDS ORDERED: DEXTROSE (50%) 50ML SYRG IV SCH (18:00)
--- NOTE | 2024-11-01 19:46 | DVHPN2 ---
Progress Note - Dictate Date Seen: Nov 01, 2024 Has the PT tested + for MRSA If YES, has PT been informed?: No Medical Necessity Reason Pt with a Central, PICC or Fol: Yes The following are medically ne: PICC Line, Cutler Catheter Reason for cutler catheter: Strict I&O vital signs Vital Sign Date Time Temp Pulse Resp B/P (MAP) Pulse Ox O2 Delivery O2 Flow Rate FiO2 11/01/24 17:00 55 25 121/57 (78) 94 11/01/24 16:00 Room Air* 0 21 11/01/24 14:00 97.8 97.8 Total Intake and Output 10/31/24 10/31/24 11/01/24 15:00 23:00 07:00 Intake Total 50 ml 250 ml 400 ml Output Total 250 ml 250 ml Balance 50 ml 0 ml 150 ml medications Current Medications Medications Dose Ordered Sig/Liliam Route Start Time Stop Time Status Last Admin Dose Admin Ondansetron HCl 4 mg Q4HP PRN IV 10/07/24 10:00 Nitroglycerin 0.4 mg Q5MINP PRN SL 10/07/24 10:00 Pantoprazole Sodium 40 mg DAILY IV 10/07/24 10:00 11/01/24 10:26 40 MG Mexiletine HCl 150 mg TID GT 10/08/24 22:00 10/30/24 05:32 150 MG Acetaminophen 500 mg Q6HP PRN PO 10/08/24 22:30 10/19/24 03:18 500 MG Amino Acids 0 ml @ 0 mls/hr PER PHARMACY IV 10/15/24 18:45 Cancel Dextrose 50 ml UD IV 10/16/24 09:30 Cancel Polyethylene Glycol 17 gm DAILYPRN PRN GT 10/17/24 16:45 10/19/24 05:54 17 GM Hydrocortisone Sodium Succinate 50 mg Q6HR IV 10/19/24 18:00 11/01/24 18:15 50 MG Vancomycin HCl 0 ml @ 0 mls/hr UD IV 10/19/24 14:00 Cancel Amino Acid Protein 30 ml DAILY GT 10/22/24 10:00 10/28/24 10:24 30 ML Apixaban 2.5 mg BID PO 10/25/24 10:00 Hold Metoclopramide HCl 5 mg BID IV 10/25/24 10:00 Hold 10/25/24 21:32 5 MG Sodium Chloride 10 ml QSHIFT@10,22 IV 10/26/24 22:00 11/01/24 10:26 10 ML Morphine Sulfate 2 mg Q4HPRN PRN IV 10/28/24 10:30 11/01/24 00:17 2 MG Metoprolol Tartrate 12.5 mg BID PO 10/28/24 22:00 10/30/24 09:24 12.5 MG Ertapenem 1 gm/ Sodium Chloride 50 ml @ 100 mls/hr DAILY IV 10/30/24 10:00 11/01/24 10:32 100 MLS/HR Metoprolol Tartrate 2.5 mg Q6HPRN PRN IV 10/31/24 09:15 Dextrose/Sodium Chloride 1,000 ml @ 50 mls/hr Q20H IV 10/31/24 18:45 11/01/24 18:21 50 MLS/HR Amino Acids 0 ml @ 0 mls/hr PER PHARMACY IV 11/01/24 11:00 Diagnostic Test (Pha) 1 strip Q6HR 11/01/24 18:00 Insulin Human Regular FOLLOW SLIDING SCALE Q6HR SC 11/01/24 18:00 Dextrose 50 ml UD IV 11/01/24 18:00 Amino Acids/ Electrolytes/ Dextrose 1,000 ml @ 41 mls/hr DAILY@2200 IV 11/01/24 22:00 laboratory and microbiology Laboratory Tests 11/01/24 04:00 11/01/24 03:06 Test 11/01/24 04:00 Range/Units Serum Glucose 137 H 74-106 mg/dL Assessment/Plan impression s/p cardiac arrest VT CPR <5 min elevated troponin acute resp failure atelectases pt seen and examined on the ICU events s/p extubation low oxygen requirements on room air appears groggy, most likely due to critical illness neuropathy s/p pacemaker management plan supplemental oxygen as needed titrate to maintain sats 90% or above incentive spirometry aspiration precautions cont abx monitor cx monitor labs renal function daily abg and CXR dvt proph/on f/u cardiology Dietary Evaluation Review Comments: 1) TF Jevity 1.2Cal @ 55 ml/hr. x 24hr along with Pro-stat 1 pk daily. Start @ 20ml/hr, increase 10ml/hr Q4H until goal is reached. TF @ goal volume provides 1684 kcal (100% energy needs), 88 gm protein (100% protein needs), 1065 ml free water. 2) Water flush 100ml Q4H if allowed, adjust PRN 3) Advance to cardiac diet as medically feasible 4) Monitor NPO status, lab values, wt trend, I/O Expected Outcomes/Goals: To meet >75% estimated needs within 7 days Lab values to improve Fu 2-3 days Plan discussed with: Patient BELLO ROTHMAN MD Nov 01, 2024 19:46
[2024-11-01] MEDS: AMINO ACID INFUSION IN D10W 1,000 ML IV SCH (22:45)
[2024-11-02] VITALS (8 sets, daily range): BP systolic 113–142; BP diastolic 60–84; PULSE 54–96; RESP 14–24; TEMP 97.5–99.3; O2SAT 93–95
--- NOTE | 2024-11-02 06:03 | DVHPN2 ---
Progress Note - Dictate Date Seen: Nov 02, 2024 Has the PT tested + for MRSA If YES, has PT been informed?: No Medical Necessity Reason Pt with a Central, PICC or Fol: Yes The following are medically ne: PICC Line, Cutler Catheter Reason for cutler catheter: Strict I&O vital signs Vital Sign Date Time Temp Pulse Resp B/P (MAP) Pulse Ox O2 Delivery O2 Flow Rate FiO2 11/02/24 05:00 98.0 56 16 115/70 (85) 95 98.0 11/01/24 20:00 Room Air* 0 21 Total Intake and Output 11/01/24 11/01/24 11/02/24 15:00 23:00 07:00 Intake Total 600 ml 100 ml Output Total 200 ml Balance 600 ml -100 ml medications Current Medications Medications Dose Ordered Sig/Liliam Route Start Time Stop Time Status Last Admin Dose Admin Ondansetron HCl 4 mg Q4HP PRN IV 10/07/24 10:00 Nitroglycerin 0.4 mg Q5MINP PRN SL 10/07/24 10:00 Pantoprazole Sodium 40 mg DAILY IV 10/07/24 10:00 11/01/24 10:26 40 MG Mexiletine HCl 150 mg TID GT 10/08/24 22:00 10/30/24 05:32 150 MG Acetaminophen 500 mg Q6HP PRN PO 10/08/24 22:30 10/19/24 03:18 500 MG Amino Acids 0 ml @ 0 mls/hr PER PHARMACY IV 10/15/24 18:45 Cancel Dextrose 50 ml UD IV 10/16/24 09:30 Cancel Polyethylene Glycol 17 gm DAILYPRN PRN GT 10/17/24 16:45 10/19/24 05:54 17 GM Hydrocortisone Sodium Succinate 50 mg Q6HR IV 10/19/24 18:00 11/02/24 05:43 50 MG Vancomycin HCl 0 ml @ 0 mls/hr UD IV 10/19/24 14:00 Cancel Amino Acid Protein 30 ml DAILY GT 10/22/24 10:00 10/28/24 10:24 30 ML Apixaban 2.5 mg BID PO 10/25/24 10:00 Hold Metoclopramide HCl 5 mg BID IV 10/25/24 10:00 Hold 10/25/24 21:32 5 MG Sodium Chloride 10 ml QSHIFT@, IV 10/26/24 22:00 11/01/24 22:45 10 ML Morphine Sulfate 2 mg Q4HPRN PRN IV 10/28/24 10:30 11/01/24 00:17 2 MG Metoprolol Tartrate 12.5 mg BID PO 10/28/24 22:00 10/30/24 09:24 12.5 MG Ertapenem 1 gm/ Sodium Chloride 50 ml @ 100 mls/hr DAILY IV 10/30/24 10:00 11/01/24 10:32 100 MLS/HR Metoprolol Tartrate 2.5 mg Q6HPRN PRN IV 10/31/24 09:15 Dextrose/Sodium Chloride 1,000 ml @ 50 mls/hr Q20H IV 10/31/24 18:45 11/01/24 18:21 50 MLS/HR Amino Acids 0 ml @ 0 mls/hr PER PHARMACY IV 11/01/24 11:00 Diagnostic Test (Pha) 1 strip Q6HR 11/01/24 18:00 11/02/24 05:43 1 STRIP Insulin Human Regular FOLLOW SLIDING SCALE Q6HR SC 11/01/24 18:00 11/02/24 05:43 2 UNITS Dextrose 50 ml UD IV 11/01/24 18:00 Amino Acids/ Electrolytes/ Dextrose 1,000 ml @ 41 mls/hr DAILY@2200 IV 11/01/24 22:00 11/01/24 22:45 41 MLS/HR laboratory and microbiology Laboratory Tests 11/01/24 04:00 11/01/24 03:06 Test 11/01/24 04:00 Range/Units Serum Glucose 137 H 74-106 mg/dL Assessment/Plan In Tele. Failed swallowing evaluation. Alert and oriented to self only. Eliquis is still pending to start (INR is still above 2) Patient is a 54-year-old female who was brought to the hospital for witnessed syncope. She is intubated and is being managed in ICU. Information was obtained by reviewing the chart and communicating with patient's son (over the phone). Family recognized witnessed syncope and started CPR and called EMS. Reportedly, EMS found the patient in ventricular fibrillation and shocked the patient and brought the patient to the hospital. Patient was intubated in emergency room and transferred to ICU. Patient was on amiodarone drip. Later the patient had ventricular tachycardia (Systane). High sensitive troponin had been minimally/flatly elevated. Presentation was not in favor of acute coronary syndrome. Cardiology is involved for cardiac aspects of care. NAD Does not talk. Alert and oriented to self only. No JVD. Mucosa pale. No carotid bruit. Scattered rhonchi in the lungs is heard. Cardiac: Regular, no thrill. Systolic murmur 2/6 in apex is heard. Abdomen is soft. No edema in extremities. Past medical history as per son: Congenital heart disease, status post bypass WBC: 14.5 - 11.9 - 18.8 - 20.0 - 21.2 - 14.3 - 10.3 - 8.9 - 9.2 - 11.1 - 12.1 - 10.8 - 12.0 - 9.9 - 15.4 - 14.8 - 12.1 - 10.5 - 5.8 - 5.3 - 4.2 - 5.8 - 4.1 - 7.0 - 9.3 - 8.3 - 11.5 - 8.4 Hemoglobin: 10.1 - 9.6 - 9.2 - 8.8 - 8.7 - 8.0 - 8.3 - 8.5 - 7.8 - 10.2 - 10.7 - 9.9 - 9.7 - 9.3 - 9.3 - 8.6 - 8.1 - 7.4 - 7.5 - 7.4 - 7.5 - 7.2 - 7.7 - 7.0 - (post PRBC transfusion) 10.4 - 10 - 9.5 - 10.0 - 9.2 Creatinine: 0.95 - 0.93 - 0.87 - 0.83 - 0.83 - 0.76 - 0.68 - 0.72 - 0.79 - 0.76 - 0.80 - 0.84 - 0.61 - 0.65 - 0.74 - 0.64 - 0.73 - 0.82 - 0.88 - 1.03 - 0.99 - 0.85 - 0.87 - 0.79 - 1.12 - 1.15 - 1.04 - 0.96 - 0.94 Potassium: 3.4 - 4.0 - 4.6 - 3.5 - 3.3 - 4.1 - 3.7 - 3.2 - 3.7 - 4.0 - 3.2 - 3.4 - 3.9 - 4.2 - 3.3 - 3.8 - 3.6 - 3.4 - 4.2 - 3.8 - 4.5 - 4.1 - 3.5 - 4.2 - 3.3 - 2.6 - 3.5 - 3.8 - 2.4 - 2.9 - 4.6 - 2.8 - 4.8 - 4.9 - 3.4 - 3.1 - 3.7 - 4.4 - 3.7 Magnesium: 2.0 - 1.6 - 2.0 - 3.0 - 1.5 - 1.9 - 2.1 - 1.8 - 2.0 - 1.9 - 1.9 - 2.6 - 2.0 - 1.8 - 1.6 - 2.0 - 2.2 - 1.9 - 2.3 - 2.2 - 2.2 - 2.1 - 2.1 - 1.9 2.7 - 2.6 - 2.3 - 2.4 - 2.5 Troponin (high sensitive): 141 - 138 - 117 BNP: 457.16 - 1073.91 AST/ALT: 32/11 - 19/13 - 538/168 - 293/152 - 131/130 - 78/94 - 68/74 - 48/57 - 27/38 - 15/23 - 20/18 - 23/17 - 29/16 - 27/13 - 34/17 - 73/49 - 41/43 - 30/47 - 30/42 - 29/42 - 17/27 - 160/87 - 900/478 - 986/571 - 382/436 - 110/244 Digoxin level: 2.83 - 1.25 - 0.98 UDS: non-revealing Chest x-ray revealed: Lines and Tubes: Endotracheal tube tip projects approximately 1.4 cm above the level of the tyler. Enteric catheter courses below the lateral of the diaphragm and terminates beyond the inferior margin of the image. Right internal jugular central venous catheter terminates within the distal superior vena cava. Lungs: Moderate diffuse increased prominence of the pulmonary vasculature without evidence of focal consolidation. Pleura: No effusion. No pneumothorax. Cardiomediastinal contours: Cardiomegaly. Bones: Unremarkable IMPRESSION: 1. Cardiomegaly and diffuse increased prominence of the pulmonary vasculature. 2. Lines and tubes as above. Repeat chest x-ray revealed: IMPRESSION: 1. Endotracheal tube tip 1.6 cm above the tyler; consider 2 cm retraction 2. Mild pulmonary vascular congestion. Moderate cardiomegaly. Repeat chest xry revealed: IMPRESSION: Endotracheal tube tip 1.6 cm above the tyler; consider 2 cm retraction Mild pulmonary vascular congestion. Moderate cardiomegaly. Repeat chest xry revealed: IMPRESSION: 1. Stable cardiomegaly, small left pleural effusion and mild diffuse increased prominence of the pulmonary vasculature. 2. Repositioned endotracheal tube as above. Remaining lines and tubes unchanged. Repeat chest xry revealed: IMPRESSION: 1. Cardiomegaly, stable diffuse increased prominence of the pulmonary vasculature and small bilateral pleural effusions. 2. Slight interval advancement of endotracheal tube as above. Remaining lines and tubes unchanged. Repeat chest xry revealed: IMPRESSION: 1. Slight interval decrease in diffuse increased prominence of the pulmonary vasculature. 2. Stable cardiomegaly and small left pleural effusion. 3. Lines and tubes unchanged. Repeat chest xry revealed: IMPRESSION: 1. Cardiomegaly and small left pleural effusion. 2. Lines and tubes unchanged. Repeat chest xry revealed: IMPRESSION: Stable lines and tubes. Similar lung aeration. Repeat chest xry revealed: IMPRESSION: Cardiomegaly and small left pleural effusion. Lines and tubes unchanged. Repeat chest xry revealed: IMPRESSION: Placement of a cardiac pacer, no pneumothorax is seen. Stable lines and tubes. Repeat chest xry revealed: IMPRESSION: 1. Worsening mixed opacities in the right lower lung. No other significant change from the previous study. Stable support devices. Repeat chest xry revealed: Heart is prominent in size with postsurgical changes, median sternotomy wires, and a single lead left cardiac defibrillator. Support lines and tubes appear unchanged in satisfactory in position. No sizable effusion or pneumothorax. Mild pulmonary vascular congestion. No significant interval change. Repeat chest xry revealed: IMPRESSION: 1. No significant change from the previous study. Stable support devices. Similar findings of heart failure including left pleural effusion. Repeat chest xry revealed: IMPRESSION: 1. No significant change from the previous study. Stable support devices. Similar findings of heart failure including trace left pleural effusion. Repeat chest xry revealed: Lines and Tubes: Unchanged. Left anterior chest wall cardiac pacing device. Lungs: Clear Pleura: No effusion. No pneumothorax. Cardiomediastinal contours: Cardiomegaly. Bones: Unremarkable IMPRESSION: 1. Cardiomegaly. 2. Lines and tubes unchanged. Repeat chest xry revealed: IMPRESSION: Lines and tubes in satisfactory position. No significant interval change. Repeat chest xry revealed: Lines and Tubes: ET tube and NG tube removed. Lungs: Congestion Pleura: No effusion. No pneumothorax. Cardiomediastinal contours: Cardiomegaly Bones: Unremarkable IMPRESSION: 1. Cardiomegaly with CHF. Liver Ultrasound revealed: Hepatic steatosis. Trace right pleural effusion. Trace ascites Gallstones Bladder ultrasound revealed: IMPRESSION: 1. Cutler catheter in the bladder in the bladder is decompressed. KUB revealed: IMPRESSION: Nonobstructive bowel gas pattern. Nasogastric tube tip in the stomach. Large stool burden. Repeat KUB revealed: Right lower extremity PICC line with tip projecting over the expected region of the intrahepatic IVC. Nasogastric tube projecting towards the distal stomach. Nonspecific bowel gas pattern. Cardiomegaly and left basilar airspace opacities, incompletely characterized. Atherosclerotic calcification disease. Left upper ext arterial duplex: IMPRESSION: No hemodynamically significant stenosis based on peak systolic velocity criteria. Left lower ext arterial duplex: IMPRESSION: There is no evidence for peripheral vascular insufficiency in the left lower extremity. No significant focal stenosis is identified. Liver Ultrasound revealed: Hepatic steatosis. Hepatomegaly. Cholelithiasis. CT of the head revealed: IMPRESSION: No acute intracranial abnormality. Repeat CT of head revealed: IMPRESSION: No acute intracranial abnormality. Repeat CT of Head revealed: IMPRESSION: No acute intracranial abnormality. Echocardiogram reported: lvef 15-20% dilated LV severe global dysfunction mild RV dysfunction biatrial enlargement mild moderate MAC, moderate mitral regurg mild to moderate aortic regug (images of echo reviewed and questioned presence of mitral ring and also some component (moderate of Mitral stenosis) EKG revealed sinus rhythm Telemetry revealed occasions of atrial fibrillation. There was occasional sustained ventricular tachycardia. EMS tele monitor revealed ventricular fibrillation for which the patient was shocked. Has remained sinus rhythm. Later with A-fib with MVR LHC revealed: Patent RICHMOND to LAD; Patent SVG to obtuse marginal; LVEF of 20% with increased EDP; Proximal disease in LAD/LCX RICHIE was performed: Consistent with severely reduced LVEF. Consistent with previously implanted Mitral ring, Up to moderate Mitral stenosis/Mitral Regurgitation and also Moderate Aortic insufficiency. Patient is a 54-year-old female who presented with witnessed syncope. She was found to have ventricular fibrillation for which was shocked. Later had repeated episode of sustained ventricular tachycardia. Patient has been kept in ICU. Does have baseline history of coronary artery disease for which has had bypass surgery. Left heart catheterization was performed which revealed patent RICHMOND and patent SVG. ACS is not considered at this point. It is of note that the patient's echocardiogram reveals significantly use systolic function. Valvular heart disease is considered. Findings are in favor of previously implanted mitral ring. By reviewing the echo images, component of up to moderate mitral stenosis could not be ruled out. LHC was performed that ruled out any active specific ischemia as an etiology for presentation. Is off Amiodarone for abnormal LFT. Being followed by Nephrology / Pulmonary / Neurology / GI ID. Tele has remained sinus rhythm. Had episode of a-fib with RVR. Was loaded with Digoxin. Dig level was performed at wrong timing (only 5 hours after the last Dig given). Dig toxicity is not considered. Patient is back to normal sinus rhythm. Has good kidney function. Repeat Dig level is acceptable level. s/p ICD implantation by EP. Intubated, later extubated. Syncope V-fib s/p shock Sustained V-tach Paroxysmal A-fib VHD, s/p Mitral ring Systolic heart failure Abnormal LFT, at a point resolved, later appeared again s/p ICD (Biotronik) implantation by EP (Dr Armstrong) s/p PRBC transfusion for significant anemia Hepatic Steatosis Gallstones Cardiac suggestion for management: Manage in Tele Follow up electrolytes and kidney function test and correct abnormalities Full anticoagulation (a-fib with high CHADS-Vasc score). s/p ICD implantation. Awaiting INR below 2.0 (was on warfarin for a while) to start Eliquis Off Amio drip (worsened LFT) On Mexiletine If need for pressure support: use Phenyl Ephrine / vasopressin, keep MAP above 65 (for now off pressure support and tolerating) On Metoprolol to decrease risk of Vtach (as patient has ICD with bradycardia protection: may continue metoprolol in case of bradycardia, but hold: if hypotensive) May consider/add Esmolol for PVC/Vtach (if needed) Does not talk. Alert and oriented to self only. As she has not passed swallowing evaluation: IV Metoprolol if needed (HR above 100) s/p ICD (Biotronik) implantation by EP Off warfarin: Eliquis: 2.5 mg BID (only after INR is below 2.0) s/p PRBC transfusion for anemia Failed swallowing evaluation for now Pulmonary Follow up GI follow up for worsening liver function tests / fatty liver and gallstones Provide previous medical records from reaching out to previous hospitals in [facility]... Further evaluation and management depends on the above and clinical course. A total of 55 minutes was spent reviewing the patient record, examining the patient, making a diagnostic and therapeutic plan, discussing this plan with medical personnel, following up on diagnostic studies and following the patient for clinical stability excluding any and all procedures. At least 50% of this time was spent in direct, [id number] contact. Thank you for allowing me to participate in this patient's care. Further recommendations will depend on patient's clinical course. Please do not hesitate to contact me if you have any questions or concerns. This medical document was created using electronic medical record system with [employer] computerized dictation system. Although this document has been carefully reviewed, there may still be some phonetic and typographical errors. These areas are purely typographical due to the imperfection of the software programs, and do not reflect any compromise in the patient's medical care. Dietary Evaluation Review Comments: 1) TF Jevity 1.2Cal @ 55 ml/hr. x 24hr along with Pro-stat 1 pk daily. Start @ 20ml/hr, increase 10ml/hr Q4H until goal is reached. TF @ goal volume provides 1684 kcal (100% energy needs), 88 gm protein (100% protein needs), 1065 ml free water. 2) Water flush 100ml Q4H if allowed, adjust PRN 3) Advance to cardiac diet as medically feasible 4) Monitor NPO status, lab values, wt trend, I/O Expected Outcomes/Goals: To meet >75% estimated needs within 7 days Lab values to improve Fu 2-3 days Plan discussed with: Other (nurse) CORDELL VERA MD Nov 02, 2024 06:03
[2024-11-02 07:55] LABS: INR 3.17 (0.9-1.15); Partial Thromboplastin Time 32.6 SEC (24.5-34.5); Prothrombin Time 30.0 sec (9.3-11.8)
[2024-11-02 07:58] LABS: Alkaline Phosphatase 115 U/L (46-116); Anion Gap 14 (5-15); BUN/Creatinine Ratio 34.4 (10.0-20.0); Calcium 9.0 mg/dL (8.7-10.4); Magnesium 2.5 mg/dL (1.6-2.6); Potassium 3.7 mmol/L (3.5-5.1)
[2024-11-02 08:00] LABS: Bilirubin, Total 0.9 mg/dL (0.2-1.0)
[2024-11-02 08:08] LABS: Alanine Aminotransferase 170 U/L (7-40); Albumin 3.1 g/dL (3.2-4.8); Blood Urea Nitrogen 32 mg/dL (9-23); Carbon Dioxide 20 mmol/L (20-31); Chloride 119 mmol/L (98-107); Glucose 142 mg/dL (74-106); Sodium 153 mmol/L (136-145); Total Protein 5.6 g/dL (5.7-8.2)
[2024-11-02 11:12] LABS: Hematocrit 31.4 % (36.0-46.0); Hemoglobin 9.8 g/dL (12.2-16.2); Mean Corpuscular Hemoglobin 28.9 pg (28.0-32.0); Mean Corpuscular Volume 92.9 fL (80.0-100.0); Nucleated Red Blood Cells % 1.7 %
--- NOTE | 2024-11-02 14:04 | DVHPN2 ---
Progress Note - Dictate Date Seen: Nov 02, 2024 Has the PT tested + for MRSA If YES, has PT been informed?: No Medical Necessity Reason Pt with a Central, PICC or Fol: Yes The following are medically ne: PICC Line, Cutler Catheter Reason for cutler catheter: Strict I&O vital signs Vital Sign Date Time Temp Pulse Resp B/P (MAP) Pulse Ox O2 Delivery O2 Flow Rate FiO2 11/02/24 13:00 97.5 70 24 142/84 (103) 95 97.5 11/02/24 08:00 Room Air* 0 21 Total Intake and Output 11/01/24 11/01/24 11/02/24 15:00 23:00 07:00 Intake Total 600 ml 100 ml 0 ml Output Total 200 ml Balance 600 ml -100 ml 0 ml medications Current Medications Medications Dose Ordered Sig/Liliam Route Start Time Stop Time Status Last Admin Dose Admin Ondansetron HCl 4 mg Q4HP PRN IV 10/07/24 10:00 Nitroglycerin 0.4 mg Q5MINP PRN SL 10/07/24 10:00 Pantoprazole Sodium 40 mg DAILY IV 10/07/24 10:00 11/02/24 10:20 40 MG Mexiletine HCl 150 mg TID GT 10/08/24 22:00 10/30/24 05:32 150 MG Acetaminophen 500 mg Q6HP PRN PO 10/08/24 22:30 10/19/24 03:18 500 MG Amino Acids 0 ml @ 0 mls/hr PER PHARMACY IV 10/15/24 18:45 Cancel Dextrose 50 ml UD IV 10/16/24 09:30 Cancel Polyethylene Glycol 17 gm DAILYPRN PRN GT 10/17/24 16:45 10/19/24 05:54 17 GM Hydrocortisone Sodium Succinate 50 mg Q6HR IV 10/19/24 18:00 11/02/24 11:50 50 MG Vancomycin HCl 0 ml @ 0 mls/hr UD IV 10/19/24 14:00 Cancel Amino Acid Protein 30 ml DAILY GT 10/22/24 10:00 10/28/24 10:24 30 ML Apixaban 2.5 mg BID PO 10/25/24 10:00 Hold Metoclopramide HCl 5 mg BID IV 10/25/24 10:00 Hold 10/25/24 21:32 5 MG Sodium Chloride 10 ml QSHIFT@10,22 IV 10/26/24 22:00 11/02/24 10:09 10 ML Morphine Sulfate 2 mg Q4HPRN PRN IV 10/28/24 10:30 11/02/24 10:37 2 MG Metoprolol Tartrate 12.5 mg BID PO 10/28/24 22:00 10/30/24 09:24 12.5 MG Ertapenem 1 gm/ Sodium Chloride 50 ml @ 100 mls/hr DAILY IV 10/30/24 10:00 11/02/24 10:22 100 MLS/HR Metoprolol Tartrate 2.5 mg Q6HPRN PRN IV 10/31/24 09:15 Dextrose/Sodium Chloride 1,000 ml @ 50 mls/hr Q20H IV 10/31/24 18:45 11/02/24 10:45 50 MLS/HR Amino Acids 0 ml @ 0 mls/hr PER PHARMACY IV 11/01/24 11:00 Diagnostic Test (Pha) 1 strip Q6HR 11/01/24 18:00 11/02/24 11:53 1 STRIP Insulin Human Regular FOLLOW SLIDING SCALE Q6HR SC 11/01/24 18:00 11/02/24 05:43 2 UNITS Dextrose 50 ml UD IV 11/01/24 18:00 Amino Acids/ Electrolytes/ Dextrose 1,000 ml @ 41 mls/hr DAILY@2200 IV 11/01/24 22:00 11/01/24 22:45 41 MLS/HR objective General Appearance: no distress HEENT: EOMI, PERRLA, normal external inspect of ears, no icterus, no nasal drainage Neck: no carotid bruit, no jugular venous distention (JVD), no lymphadenopathy Chest: normal thorax Respiratory: Intubated, clear to auscultation, normal air movement Cardiovascular: regular rate and rhythm, no diastolic murmur, no jugular venous distention (JVD), no rub, no systolic murmur Abdominal: soft, no hepatomegaly, no mass, no splenomegaly, no tenderness Genitourinary: grossly normal external Musculoskeletal: no joint tenderness, no swelling Extremities: normal pulses, no calf tenderness, no clubbing, no cyanosis, no edema Skin: no bruising, no jaundice, no rash Neurological: No focal deficit laboratory and microbiology Laboratory Tests 11/02/24 06:01 Test 11/02/24 06:01 Range/Units Serum Glucose 142 H 74-106 mg/dL Problem List Cardiac Arrest with Ventricular Fibrillation Assessment: Patient experienced cardiac arrest with ventricular fibrillation on 10/07/24, witnessed by family members who initiated CPR. EMS found the patient in ventricular fibrillation and administered shock therapy. Rhythm strip analysis confirmed ventricular fibrillation. Patient required intubation and sedation upon ED arrival. Currently admitted to ICU for close observation. Cardiology has been consulted and plans for AICD placement, likely on Tuesday. Infectious disease clearance has been obtained for the AICD procedure, addressing initial concerns of leukocytosis which is now improving. Status post-cardiac arrest. Plan: - Continue ICU monitoring - Proceed with AICD placement as planned (likely Tuesday), cleared by infectious disease. - Maintain intubation and sedation until AICD placement - Continue Heparin drip for paroxysmal atrial fibrillation - Continue Mexitil - DC amiodarone due to transaminitis - added esmolol drip per Cardiology for AFib and added push doses of digoxin Coronary Artery Disease Assessment: Patient with history of 2-vessel CABG (Coronary Artery Bypass Grafting). Surgical intervention previously performed to address significant coronary artery stenosis. Plan: - Continue medical management - Follow up with cardiology for ongoing coronary artery disease management Acute and Chronic Systolic Heart Failure Assessment: Patient has acute and chronic systolic heart failure with severely reduced left ventricular function. Ejection fraction is estimated at 15-20%. RICHIE findings are consistent with severely reduced left ventricular ejection fraction, previously implanted mitral ring, up to moderate mitral stenosis and regurgitation, and moderate aortic insufficiency. Plan: - Continue cardiology consultation - continue IV diuretics (IV Lasix) - Monitor renal function Acute Hypoxic Respiratory Failure Assessment: Patient is currently intubated due to acute hypoxic respiratory failure. Dr. Downey from pulmonology is managing this aspect of care. Plan: - Maintain current intubation as per pulmonology recommendation - Proceed with CPAP trials when deemed appropriate by pulmonology Transaminitis Assessment: Patient has elevated liver function tests, likely secondary to amiodarone use. Cardiology has discontinued amiodarone in response. Plan: - Monitor liver function tests - Amiodarone discontinued as per cardiology Enterobacter PNA Assessment: Sputum culture positive for Enterobacter. Plan: - Continue treatment with Eratapenem to complete 10 days regimen -Infectious disease consult Hemodynamic Support Assessment: Patient requires vasopressor support for hemodynamic stability. Plan: - Continue vasopressin - Continue neosynephrine Paroxysmal a fib -DC amiodarone -continue with heparin gtt Shock liver GI consult, trend liver enzymes, hepatitis panel was negative. Ultrasound of the liver had no acute findings. Assessment/Plan Subjective: Patient appears to be more awake and alert today. Objective: Patient was admitted status post cardiac arrest on October 07, 2024. Repeat CT of the head showed no acute findings. Liver enzymes are downtrending, most likely from shock liver. She has failed her swallow evaluation, and a repeat swallow evaluation has been ordered since she is now more awake and alert. Patient is very deconditioned, having been hospitalized for almost 1 month. PT evaluation is pending. She continues on antibiotics with Invanz for Enterococcus pneumonia and Clinimix for nutritional support. EKG monitoring is ongoing. Plan: Continue antibiotics with Invanz. Continue Clinimix for nutritional support. Monitor EKG. Proceed with repeat swallow evaluation and PT evaluation. Dietary Evaluation Review Comments: 1) TF Jevity 1.2Cal @ 55 ml/hr. x 24hr along with Pro-stat 1 pk daily. Start @ 20ml/hr, increase 10ml/hr Q4H until goal is reached. TF @ goal volume provides 1684 kcal (100% energy needs), 88 gm protein (100% protein needs), 1065 ml free water. 2) Water flush 100ml Q4H if allowed, adjust PRN 3) Advance to cardiac diet as medically feasible 4) Monitor NPO status, lab values, wt trend, I/O Expected Outcomes/Goals: To meet >75% estimated needs within 7 days Lab values to improve Fu 2-3 days Plan discussed with: Patient, Other BRODIE GARVIN ACCOUNT LEADER Nov 02, 2024 14:04
--- NOTE | 2024-11-02 14:28 | DVHPN2 ---
Progress Note - Dictate Date Seen: Nov 02, 2024 Has the PT tested + for MRSA If YES, has PT been informed?: No Medical Necessity Reason Pt with a Central, PICC or Fol: Yes The following are medically ne: PICC Line, Cutler Catheter Reason for cutler catheter: Strict I&O vital signs Vital Sign Date Time Temp Pulse Resp B/P (MAP) Pulse Ox O2 Delivery O2 Flow Rate FiO2 11/02/24 13:00 97.5 70 24 142/84 (103) 95 97.5 11/02/24 08:00 Room Air* 0 21 Total Intake and Output 11/01/24 11/01/24 11/02/24 14:59 22:59 06:59 Intake Total 550 ml 200 ml 0 ml Output Total 200 ml Balance 550 ml 0 ml 0 ml medications Current Medications Medications Dose Ordered Sig/Liliam Route Start Time Stop Time Status Last Admin Dose Admin Ondansetron HCl 4 mg Q4HP PRN IV 10/07/24 10:00 Nitroglycerin 0.4 mg Q5MINP PRN SL 10/07/24 10:00 Pantoprazole Sodium 40 mg DAILY IV 10/07/24 10:00 11/02/24 10:20 40 MG Mexiletine HCl 150 mg TID GT 10/08/24 22:00 10/30/24 05:32 150 MG Acetaminophen 500 mg Q6HP PRN PO 10/08/24 22:30 10/19/24 03:18 500 MG Amino Acids 0 ml @ 0 mls/hr PER PHARMACY IV 10/15/24 18:45 Cancel Dextrose 50 ml UD IV 10/16/24 09:30 Cancel Polyethylene Glycol 17 gm DAILYPRN PRN GT 10/17/24 16:45 10/19/24 05:54 17 GM Hydrocortisone Sodium Succinate 50 mg Q6HR IV 10/19/24 18:00 11/02/24 11:50 50 MG Vancomycin HCl 0 ml @ 0 mls/hr UD IV 10/19/24 14:00 Cancel Amino Acid Protein 30 ml DAILY GT 10/22/24 10:00 10/28/24 10:24 30 ML Apixaban 2.5 mg BID PO 10/25/24 10:00 Hold Metoclopramide HCl 5 mg BID IV 10/25/24 10:00 Hold 10/25/24 21:32 5 MG Sodium Chloride 10 ml QSHIFT@10,22 IV 10/26/24 22:00 11/02/24 10:09 10 ML Morphine Sulfate 2 mg Q4HPRN PRN IV 10/28/24 10:30 11/02/24 10:37 2 MG Metoprolol Tartrate 12.5 mg BID PO 10/28/24 22:00 10/30/24 09:24 12.5 MG Ertapenem 1 gm/ Sodium Chloride 50 ml @ 100 mls/hr DAILY IV 10/30/24 10:00 11/02/24 10:22 100 MLS/HR Metoprolol Tartrate 2.5 mg Q6HPRN PRN IV 10/31/24 09:15 Dextrose/Sodium Chloride 1,000 ml @ 50 mls/hr Q20H IV 10/31/24 18:45 11/02/24 10:45 50 MLS/HR Amino Acids 0 ml @ 0 mls/hr PER PHARMACY IV 11/01/24 11:00 Diagnostic Test (Pha) 1 strip Q6HR 11/01/24 18:00 11/02/24 11:53 1 STRIP Insulin Human Regular FOLLOW SLIDING SCALE Q6HR SC 11/01/24 18:00 11/02/24 05:43 2 UNITS Dextrose 50 ml UD IV 11/01/24 18:00 Amino Acids/ Electrolytes/ Dextrose 1,000 ml @ 41 mls/hr DAILY@2200 IV 11/01/24 22:00 11/01/24 22:45 41 MLS/HR laboratory and microbiology Laboratory Tests 11/02/24 06:01 Test 11/02/24 06:01 Range/Units Serum Glucose 142 H 74-106 mg/dL Assessment/Plan impression s/p cardiac arrest VT CPR <5 min elevated troponin acute resp failure atelectases pt seen and examined events s/p extubation low oxygen requirements on room air s/p downgrade s/p pacemaker management plan supplemental oxygen as needed titrate to maintain sats 90% or above incentive spirometry aspiration precautions cont abx monitor cx monitor labs renal function daily abg and CXR dvt proph/on aggressive physical therapy f/u cardiology Dietary Evaluation Review Comments: 1) TF Jevity 1.2Cal @ 55 ml/hr. x 24hr along with Pro-stat 1 pk daily. Start @ 20ml/hr, increase 10ml/hr Q4H until goal is reached. TF @ goal volume provides 1684 kcal (100% energy needs), 88 gm protein (100% protein needs), 1065 ml free water. 2) Water flush 100ml Q4H if allowed, adjust PRN 3) Advance to cardiac diet as medically feasible 4) Monitor NPO status, lab values, wt trend, I/O Expected Outcomes/Goals: To meet >75% estimated needs within 7 days Lab values to improve Fu 2-3 days Plan discussed with: Patient BELLO ROTHMAN MD Nov 02, 2024 14:28
--- NOTE | 2024-11-02 15:03 | DVHPN2 ---
Progress Note Date Seen: Nov 02, 2024 Resident Creating Document: ETHAN SWAN RESIDENT Has the PT tested + for MRSA If YES, has PT been informed?: No Medical Necessity Reason Pt with a Central, PICC or Fol: Yes The following are medically ne: PICC Line, Cutler Catheter Reason for cutler catheter: Strict I&O Subjective Review of Systems Pt seen and examined at bedside continues to rewmain AOx1-2 progressing with PT uptrending Na INR 3.17 Objective vital signs Vital Sign Date Time Temp Pulse Resp B/P (MAP) Pulse Ox O2 Delivery O2 Flow Rate FiO2 11/02/24 13:00 97.5 70 24 142/84 (103) 95 97.5 11/02/24 08:00 Room Air* 0 21 Total Intake and Output 11/01/24 11/01/24 11/02/24 15:00 23:00 07:00 Intake Total 600 ml 100 ml 0 ml Output Total 200 ml Balance 600 ml -100 ml 0 ml medications Current Medications Medications Dose Ordered Sig/Liliam Route Start Time Stop Time Status Last Admin Dose Admin Ondansetron HCl 4 mg Q4HP PRN IV 10/07/24 10:00 Nitroglycerin 0.4 mg Q5MINP PRN SL 10/07/24 10:00 Pantoprazole Sodium 40 mg DAILY IV 10/07/24 10:00 11/02/24 10:20 40 MG Mexiletine HCl 150 mg TID GT 10/08/24 22:00 10/30/24 05:32 150 MG Acetaminophen 500 mg Q6HP PRN PO 10/08/24 22:30 10/19/24 03:18 500 MG Amino Acids 0 ml @ 0 mls/hr PER PHARMACY IV 10/15/24 18:45 Cancel Dextrose 50 ml UD IV 10/16/24 09:30 Cancel Polyethylene Glycol 17 gm DAILYPRN PRN GT 10/17/24 16:45 10/19/24 05:54 17 GM Hydrocortisone Sodium Succinate 50 mg Q6HR IV 10/19/24 18:00 11/02/24 11:50 50 MG Vancomycin HCl 0 ml @ 0 mls/hr UD IV 10/19/24 14:00 Cancel Amino Acid Protein 30 ml DAILY GT 10/22/24 10:00 10/28/24 10:24 30 ML Apixaban 2.5 mg BID PO 10/25/24 10:00 Hold Metoclopramide HCl 5 mg BID IV 10/25/24 10:00 Hold 10/25/24 21:32 5 MG Sodium Chloride 10 ml QSHIFT@10,22 IV 10/26/24 22:00 11/02/24 10:09 10 ML Morphine Sulfate 2 mg Q4HPRN PRN IV 10/28/24 10:30 11/02/24 10:37 2 MG Metoprolol Tartrate 12.5 mg BID PO 10/28/24 22:00 10/30/24 09:24 12.5 MG Ertapenem 1 gm/ Sodium Chloride 50 ml @ 100 mls/hr DAILY IV 10/30/24 10:00 11/02/24 10:22 100 MLS/HR Metoprolol Tartrate 2.5 mg Q6HPRN PRN IV 10/31/24 09:15 Dextrose/Sodium Chloride 1,000 ml @ 50 mls/hr Q20H IV 10/31/24 18:45 11/02/24 10:45 50 MLS/HR Amino Acids 0 ml @ 0 mls/hr PER PHARMACY IV 11/01/24 11:00 Diagnostic Test (Pha) 1 strip Q6HR 11/01/24 18:00 11/02/24 11:53 1 STRIP Insulin Human Regular FOLLOW SLIDING SCALE Q6HR SC 11/01/24 18:00 11/02/24 05:43 2 UNITS Dextrose 50 ml UD IV 11/01/24 18:00 Amino Acids/ Electrolytes/ Dextrose 1,000 ml @ 41 mls/hr DAILY@2200 IV 11/01/24 22:00 11/01/24 22:45 41 MLS/HR Examination General Appearance: Sedated, intubated on mechanical ventilation Head Exam: Normal inspection. Constricted equal and reactive pupils Neck Exam: Normal inspection. Non-tender. Normal alignment Pulmonary/Respiratory: Chest non-tender. Trace crackles Peripheral Pulses 2+ Pedal (R). 2+ Pedal (L) Abdominal Exam: Normal bowel sounds. Soft. Nontender Skin Exam: Normal inspection. Normal color. Warm. Dry laboratory and microbiology Laboratory Tests 11/02/24 06:01 Test 11/02/24 06:01 Range/Units Serum Glucose 142 H 74-106 mg/dL Microbiology Date/Time Source Procedure Growth Status 10/20/24 04:00 Sputum Gram Stain - Final Complete 10/20/24 04:00 Respiratory Culture - Final Enterobacter cloacae Yeast, not Ilda albicans Complete 10/20/24 01:03 Urine - Cutler Port Urine Culture - Final Yeast, not Ilda albicans Complete 10/19/24 13:02 Blood Blood Culture - Final NO GROWTH AFTER 5 DAYS OF INCUBATION. Complete 10/07/24 16:50 Nose MRSA Screen - Final Complete Labs and/or images reviewed: Labs reviewed by me, Image(s) reviewed by me Problem List/Assessment/Plan Problem List/Assessment/Plan Questionable acute cholecystitis Ventricular fibrillation S/p cardiopulmonary arrest with shock Heart failure with reduced ejection fraction 15-20% Metabolic versus hypoxic encephalopathy Acute hepatocellular injury likely shock liver Cholelithiasis without acute inflammation Nonalcoholic fatty liver disease with steatohepatitis Community-acquired pneumonia growing Enterobacter Plan: Liver function tests downtrending appropriately Keep PT/INR therapeutic Hemoglobin stable, transfuse if HB 7 or less Continue tube feedings as patient failed swallow eval Decreased metoclopramide to 5 mg IV b.i.d. JAIDEN positive, outpatient follow up with GI recommended for further workup Thank you so much for the opportunity to consult on your patient. GI team will follow the patient. In case of any questions or concerns please feel free to reach out. Plan discussed with Dr. Anglin Plan discussed with: Other (RN) Dietary Evaluation Review Comments: 1) TF Jevity 1.2Cal @ 55 ml/hr. x 24hr along with Pro-stat 1 pk daily. Start @ 20ml/hr, increase 10ml/hr Q4H until goal is reached. TF @ goal volume provides 1684 kcal (100% energy needs), 88 gm protein (100% protein needs), 1065 ml free water. 2) Water flush 100ml Q4H if allowed, adjust PRN 3) Advance to cardiac diet as medically feasible 4) Monitor NPO status, lab values, wt trend, I/O Expected Outcomes/Goals: To meet >75% estimated needs within 7 days Lab values to improve Fu 2-3 days ETHAN SWAN RESIDENT Nov 02, 2024 15:03
--- NOTE | 2024-11-02 23:55 | DVHPN2 ---
Progress Note - Dictate Date Seen: Nov 02, 2024 Has the PT tested + for MRSA If YES, has PT been informed?: No Medical Necessity Reason Pt with a Central, PICC or Fol: Yes The following are medically ne: PICC Line, Cutler Catheter Reason for cutler catheter: Strict I&O Subjective Ms. Smith is a 54 years old female who was brought to the [facility] on 10/07/2024 with a chief complaint of cardiopulmonary arrest/status post CPR. I have seen and examined the patient, I have discussed with her nurse, she is awake, she is oriented to person, maybe two place as well, her voice is very weak, she failed swallow evaluation again Blood culture, 10/09/2024: No growth Blood culture, 10/19/2024: UDS, 10/07/2024: Negative Urinalysis, 10/07/2024: Leukocyte esterase: Negative WBC/HB/PLT/MCV, 10/09/2024: 20/8.8/219/94.6, 10/10/2024: 21.2/8.7/232/92.2 PT/INR/PTT, 10/08/2024: 12.4/1.19/72.7, 10/09/2024: 13.1/1.26/68.9, 10/10/2024: 14.4/2/1.38/35.3 CMP, 10/08/2024: Unremarkable Troponin one high sensitivity, 10/07/2024: 141, 138, 117 TBI/AST/ALT/AP, 10/10/2024: 0.5/538/168/144, 10/11/2024: 0.6/293/199/152, 10/14/2024: 0.8/68/74/124 TG/HDL/LDL/HDL, 10/07/24: 71/66/31/21 EKG 10/10/2024: Atrial fibrillation EKG, 10/15/2024: Atrial fibrillation Echocardiogram, 10/07/2024: lvef 15-20% dilated LV severe global dysfunction mild RV dysfunction biatrial enlargement mild moderate MAC, moderate mitral regurg mild to moderate aortic regug RICHIE, 10/08/2024: 1. Left ventricle: Dilated LV was seen. LVEF was 25%. There was diffuse hypokinesis of left ventricle. 2. Right ventricle: RV was mildly dilated. 3. Left atrium: LA enlarged 4. Right atrium: RA was enlarged. 5. Mitral valve: Mitral was thickened with reduced opening. Moderate Mitral regurgitation was seen. Planinomentry of valve (TTE images also obtained) revealed MVA of 2.1 cm. Mean pressure gradient (obtained from limited TTE images) was 5. Images are consistent with previously implanted Ring in Mitral position. Consistent with up to Moderate Mitral stenosis. . There was no vegetation 6. Left atrial appendage: No evidence of thrombus. 7. Aortic valve: Trileaflet valve. No stenosis. Up to moderate Aortic Insufficiency was seen. There was no vegetation 8. Pulmonic valve: Trivial pulmonic insufficiency. No significant stenosis. 9. Tricuspid valve: Mild tricuspid regurgitation. There was no vegetation 10. Interatrial septum: Negative color flow for right to left shunt was observed. Bubble study was performed: negative for shunt 11. Pericardium: No significant effusion. 12. Thoracic aorta: No significant plaquing. Chest x-ray, 10/27/2024: 1. Cardiomegaly, stable diffuse increased prominence of the pulmonary vasculature and small bilateral pleural effusions. 2. Slight interval advancement of endotracheal tube as above. Remaining lines and tubes unchanged. CT head, 10/07/2024: No acute intracranial abnormality General: the patient is well developed and nourished. No acute distress. Intubated CT head, 10/07/2024: No acute intracranial abnormality. CT head, 10/11/2024: No acute intracranial abnormality CT head, 11/01/2024: As above, the other systems are negative vital signs Vital Sign Date Time Temp Pulse Resp B/P (MAP) Pulse Ox O2 Delivery O2 Flow Rate FiO2 11/02/24 21:00 98.3 71 19 113/65 (81) 94 98.3 11/02/24 08:00 Room Air* 0 21 Total Intake and Output 11/01/24 11/01/24 11/02/24 15:00 23:00 07:00 Intake Total 600 ml 100 ml 0 ml Output Total 200 ml Balance 600 ml -100 ml 0 ml medications Current Medications Medications Dose Ordered Sig/Liliam Route Start Time Stop Time Status Last Admin Dose Admin Ondansetron HCl 4 mg Q4HP PRN IV 10/07/24 10:00 Nitroglycerin 0.4 mg Q5MINP PRN SL 10/07/24 10:00 Pantoprazole Sodium 40 mg DAILY IV 10/07/24 10:00 11/02/24 10:20 40 MG Mexiletine HCl 150 mg TID GT 10/08/24 22:00 10/30/24 05:32 150 MG Acetaminophen 500 mg Q6HP PRN PO 10/08/24 22:30 10/19/24 03:18 500 MG Amino Acids 0 ml @ 0 mls/hr PER PHARMACY IV 10/15/24 18:45 Cancel Dextrose 50 ml UD IV 10/16/24 09:30 Cancel Polyethylene Glycol 17 gm DAILYPRN PRN GT 10/17/24 16:45 10/19/24 05:54 17 GM Hydrocortisone Sodium Succinate 50 mg Q6HR IV 10/19/24 18:00 11/02/24 16:53 50 MG Vancomycin HCl 0 ml @ 0 mls/hr UD IV 10/19/24 14:00 Cancel Amino Acid Protein 30 ml DAILY GT 10/22/24 10:00 10/28/24 10:24 30 ML Apixaban 2.5 mg BID PO 10/25/24 10:00 Hold Metoclopramide HCl 5 mg BID IV 10/25/24 10:00 Hold 10/25/24 21:32 5 MG Sodium Chloride 10 ml QSHIFT@10,22 IV 10/26/24 22:00 11/02/24 22:28 10 ML Morphine Sulfate 2 mg Q4HPRN PRN IV 10/28/24 10:30 11/02/24 10:37 2 MG Metoprolol Tartrate 12.5 mg BID PO 10/28/24 22:00 10/30/24 09:24 12.5 MG Ertapenem 1 gm/ Sodium Chloride 50 ml @ 100 mls/hr DAILY IV 10/30/24 10:00 11/02/24 10:22 100 MLS/HR Metoprolol Tartrate 2.5 mg Q6HPRN PRN IV 10/31/24 09:15 Dextrose/Sodium Chloride 1,000 ml @ 50 mls/hr Q20H IV 10/31/24 18:45 11/02/24 10:45 50 MLS/HR Amino Acids 0 ml @ 0 mls/hr PER PHARMACY IV 11/01/24 11:00 Diagnostic Test (Pha) 1 strip Q6HR 11/01/24 18:00 11/02/24 16:57 1 STRIP Insulin Human Regular FOLLOW SLIDING SCALE Q6HR SC 11/01/24 18:00 11/02/24 05:43 2 UNITS Dextrose 50 ml UD IV 11/01/24 18:00 Amino Acids/ Electrolytes/ Dextrose 1,000 ml @ 41 mls/hr DAILY@2200 IV 11/01/24 22:00 11/02/24 22:30 41 MLS/HR objective The patient is well-nourished and well-developed with no distress. The patient is intubated MENTAL STATUS: Subjective CRANIAL NERVES: Pupils are equal, round and reactive. EOMs full and conjugate. Facial sensation intact in all three divisions bilaterally. Mandibular strength intact. Facial muscles symmetrical and strength intact. SENSATION: Okay to pinprick and light touch MOTOR: Normal tone in the upper and lower extremity. Normal muscle bulk. No fasciculations. She move the arms and legs REFLEXES: Deep tendon reflexes are symmetrical. No pathological reflexes. CEREBELLAR/COORDINATION: Deferred GAIT/STATION: deferred. laboratory and microbiology Laboratory Tests 11/02/24 06:01 Test 11/02/24 06:01 Range/Units Serum Glucose 142 H 74-106 mg/dL Problem List Cardiopulmonary arrest Status post CPR Metabolic encephalopathy Hypoxic encephalopathy Congestive heart failure Leukocytosis/sepsis/septic shock Respiratory failure Elevated liver function tests AFib S/P pacemaker insertion on 10/17/2024 Assessment/Plan Monitoring Supportive treatment Telemetry Hold off Lipitor (elevated liver function tests), LDL (31) (home medications included Lipitor 40 mg daily) DVT prophylaxis GI prophylaxis Cardiology on case Pulmonology on case Nephrology on case Need more history This medical document was created using an electronic medical record system with [employer] dictation system. Although this document has been carefully reviewed, there may still be some phonetic and typographical errors. These areas are purely typographical due to imperfections of the software programs, and do not reflect any compromise in the patient's medical care. Prognosis poor Dietary Evaluation Review Comments: 1) TF Jevity 1.2Cal @ 55 ml/hr. x 24hr along with Pro-stat 1 pk daily. Start @ 20ml/hr, increase 10ml/hr Q4H until goal is reached. TF @ goal volume provides 1684 kcal (100% energy needs), 88 gm protein (100% protein needs), 1065 ml free water. 2) Water flush 100ml Q4H if allowed, adjust PRN 3) Advance to cardiac diet as medically feasible 4) Monitor NPO status, lab values, wt trend, I/O Expected Outcomes/Goals: To meet >75% estimated needs within 7 days Lab values to improve Fu 2-3 days Plan discussed with: Other CAROLINE ROBB MD Nov 02, 2024 23:55
[2024-11-03] VITALS (8 sets, daily range): BP systolic 114–143; BP diastolic 58–72; PULSE 53–65; RESP 16–20; TEMP 97.4–98.3; O2SAT 91–96
--- NOTE | 2024-11-03 06:26 | DVHPN2 ---
Progress Note - Dictate Date Seen: Nov 03, 2024 Has the PT tested + for MRSA If YES, has PT been informed?: No Medical Necessity Reason Pt with a Central, PICC or Fol: Yes The following are medically ne: PICC Line, Cutler Catheter Reason for cutler catheter: Strict I&O vital signs Vital Sign Date Time Temp Pulse Resp B/P (MAP) Pulse Ox O2 Delivery O2 Flow Rate FiO2 11/03/24 05:00 98.1 53 20 126/71 (89) 94 98.1 11/02/24 20:00 Room Air* 0 21 Total Intake and Output 11/02/24 11/02/24 11/03/24 15:00 23:00 07:00 Intake Total 50 ml 0 ml 0 ml Output Total 200 ml Balance 50 ml -200 ml 0 ml medications Current Medications Medications Dose Ordered Sig/Liliam Route Start Time Stop Time Status Last Admin Dose Admin Ondansetron HCl 4 mg Q4HP PRN IV 10/07/24 10:00 Nitroglycerin 0.4 mg Q5MINP PRN SL 10/07/24 10:00 Pantoprazole Sodium 40 mg DAILY IV 10/07/24 10:00 11/02/24 10:20 40 MG Mexiletine HCl 150 mg TID GT 10/08/24 22:00 10/30/24 05:32 150 MG Acetaminophen 500 mg Q6HP PRN PO 10/08/24 22:30 10/19/24 03:18 500 MG Amino Acids 0 ml @ 0 mls/hr PER PHARMACY IV 10/15/24 18:45 Cancel Dextrose 50 ml UD IV 10/16/24 09:30 Cancel Polyethylene Glycol 17 gm DAILYPRN PRN GT 10/17/24 16:45 10/19/24 05:54 17 GM Hydrocortisone Sodium Succinate 50 mg Q6HR IV 10/19/24 18:00 11/03/24 05:39 50 MG Vancomycin HCl 0 ml @ 0 mls/hr UD IV 10/19/24 14:00 Cancel Amino Acid Protein 30 ml DAILY GT 10/22/24 10:00 10/28/24 10:24 30 ML Apixaban 2.5 mg BID PO 10/25/24 10:00 Hold Metoclopramide HCl 5 mg BID IV 10/25/24 10:00 Hold 10/25/24 21:32 5 MG Sodium Chloride 10 ml QSHIFT@10,22 IV 10/26/24 22:00 11/02/24 22:28 10 ML Morphine Sulfate 2 mg Q4HPRN PRN IV 10/28/24 10:30 11/02/24 10:37 2 MG Metoprolol Tartrate 12.5 mg BID PO 10/28/24 22:00 10/30/24 09:24 12.5 MG Ertapenem 1 gm/ Sodium Chloride 50 ml @ 100 mls/hr DAILY IV 10/30/24 10:00 11/02/24 10:22 100 MLS/HR Metoprolol Tartrate 2.5 mg Q6HPRN PRN IV 10/31/24 09:15 Dextrose/Sodium Chloride 1,000 ml @ 50 mls/hr Q20H IV 10/31/24 18:45 11/02/24 10:45 50 MLS/HR Amino Acids 0 ml @ 0 mls/hr PER PHARMACY IV 11/01/24 11:00 Diagnostic Test (Pha) 1 strip Q6HR 11/01/24 18:00 11/03/24 05:39 1 STRIP Insulin Human Regular FOLLOW SLIDING SCALE Q6HR SC 11/01/24 18:00 11/02/24 05:43 2 UNITS Dextrose 50 ml UD IV 11/01/24 18:00 Amino Acids/ Electrolytes/ Dextrose 1,000 ml @ 41 mls/hr DAILY@2200 IV 11/01/24 22:00 11/02/24 22:30 41 MLS/HR objective General Appearance: no distress HEENT: EOMI, PERRLA, normal external inspect of ears, no icterus, no nasal drainage Neck: no carotid bruit, no jugular venous distention (JVD), no lymphadenopathy Chest: normal thorax Respiratory: Intubated, clear to auscultation, normal air movement Cardiovascular: regular rate and rhythm, no diastolic murmur, no jugular venous distention (JVD), no rub, no systolic murmur Abdominal: soft, no hepatomegaly, no mass, no splenomegaly, no tenderness Genitourinary: grossly normal external Musculoskeletal: no joint tenderness, no swelling Extremities: normal pulses, no calf tenderness, no clubbing, no cyanosis, no edema Skin: no bruising, no jaundice, no rash Neurological: No focal deficit laboratory and microbiology Laboratory Tests 11/02/24 06:01 Test 11/02/24 06:01 Range/Units Serum Glucose 142 H 74-106 mg/dL Problem List Cardiac Arrest with Ventricular Fibrillation Assessment: Patient experienced cardiac arrest with ventricular fibrillation on 10/07/24, witnessed by family members who initiated CPR. EMS found the patient in ventricular fibrillation and administered shock therapy. Rhythm strip analysis confirmed ventricular fibrillation. Patient required intubation and sedation upon ED arrival. Currently admitted to ICU for close observation. Cardiology has been consulted and plans for AICD placement, likely on Tuesday. Infectious disease clearance has been obtained for the AICD procedure, addressing initial concerns of leukocytosis which is now improving. Status post-cardiac arrest. Plan: - Continue ICU monitoring - Proceed with AICD placement as planned (likely Tuesday), cleared by infectious disease. - Maintain intubation and sedation until AICD placement - Continue Heparin drip for paroxysmal atrial fibrillation - Continue Mexitil - DC amiodarone due to transaminitis - added esmolol drip per Cardiology for AFib and added push doses of digoxin Coronary Artery Disease Assessment: Patient with history of 2-vessel CABG (Coronary Artery Bypass Grafting). Surgical intervention previously performed to address significant coronary artery stenosis. Plan: - Continue medical management - Follow up with cardiology for ongoing coronary artery disease management Acute and Chronic Systolic Heart Failure Assessment: Patient has acute and chronic systolic heart failure with severely reduced left ventricular function. Ejection fraction is estimated at 15-20%. RICHIE findings are consistent with severely reduced left ventricular ejection fraction, previously implanted mitral ring, up to moderate mitral stenosis and regurgitation, and moderate aortic insufficiency. Plan: - Continue cardiology consultation - continue IV diuretics (IV Lasix) - Monitor renal function Acute Hypoxic Respiratory Failure Assessment: Patient is currently intubated due to acute hypoxic respiratory failure. Dr. Downey from pulmonology is managing this aspect of care. Plan: - Maintain current intubation as per pulmonology recommendation - Proceed with CPAP trials when deemed appropriate by pulmonology Transaminitis Assessment: Patient has elevated liver function tests, likely secondary to amiodarone use. Cardiology has discontinued amiodarone in response. Plan: - Monitor liver function tests - Amiodarone discontinued as per cardiology Enterobacter PNA Assessment: Sputum culture positive for Enterobacter. Plan: - Continue treatment with Eratapenem to complete 10 days regimen -Infectious disease consult Hemodynamic Support Assessment: Patient requires vasopressor support for hemodynamic stability. Plan: - Continue vasopressin - Continue neosynephrine Paroxysmal a fib -DC amiodarone -continue with heparin gtt Shock liver GI consult, trend liver enzymes, hepatitis panel was negative. Ultrasound of the liver had no acute findings. Assessment/Plan Subjective: Patient is A&O x 2. Objective: Patient is having some paranoia. I found her without a gown today. Patient appeared to be frustrated and angry. Patient is very deconditioned. She was admitted status post cardiac arrest and was extubated from the ventilator. Patient acute hypoxic respiratory failure now on room air. Patient is showing some signs of metabolic and possible anoxic cephalopathy. Repeat CT of the head had no acute findings. She did fail her swallow eval for second time. Plan: TPN for nutritional support. client services representative consult for possible LTAC or acute rehab. Patient is very deconditioned for her length of stay at the hospital and she will need extensive physical therapy and support. Dietary Evaluation Review Comments: 1) TF Jevity 1.2Cal @ 55 ml/hr. x 24hr along with Pro-stat 1 pk daily. Start @ 20ml/hr, increase 10ml/hr Q4H until goal is reached. TF @ goal volume provides 1684 kcal (100% energy needs), 88 gm protein (100% protein needs), 1065 ml free water. 2) Water flush 100ml Q4H if allowed, adjust PRN 3) Advance to cardiac diet as medically feasible 4) Monitor NPO status, lab values, wt trend, I/O Expected Outcomes/Goals: To meet >75% estimated needs within 7 days Lab values to improve Fu 2-3 days Plan discussed with: Patient, Other BRODIE GARVIN [employer] PERSON Nov 03, 2024 06:26
--- NOTE | 2024-11-03 08:12 | DVHPN2 ---
Progress Note - Dictate Date Seen: Nov 03, 2024 Has the PT tested + for MRSA If YES, has PT been informed?: No Medical Necessity Reason Pt with a Central, PICC or Fol: Yes The following are medically ne: PICC Line, Cutler Catheter Reason for cutler catheter: Strict I&O vital signs Vital Sign Date Time Temp Pulse Resp B/P (MAP) Pulse Ox O2 Delivery O2 Flow Rate FiO2 11/03/24 05:00 98.1 53 20 126/71 (89) 94 98.1 11/02/24 20:00 Room Air* 0 21 Total Intake and Output 11/02/24 11/02/24 11/03/24 15:00 23:00 07:00 Intake Total 50 ml 0 ml 0 ml Output Total 200 ml Balance 50 ml -200 ml 0 ml medications Current Medications Medications Dose Ordered Sig/Liliam Route Start Time Stop Time Status Last Admin Dose Admin Ondansetron HCl 4 mg Q4HP PRN IV 10/07/24 10:00 Nitroglycerin 0.4 mg Q5MINP PRN SL 10/07/24 10:00 Pantoprazole Sodium 40 mg DAILY IV 10/07/24 10:00 11/02/24 10:20 40 MG Mexiletine HCl 150 mg TID GT 10/08/24 22:00 10/30/24 05:32 150 MG Acetaminophen 500 mg Q6HP PRN PO 10/08/24 22:30 10/19/24 03:18 500 MG Amino Acids 0 ml @ 0 mls/hr PER PHARMACY IV 10/15/24 18:45 Cancel Dextrose 50 ml UD IV 10/16/24 09:30 Cancel Polyethylene Glycol 17 gm DAILYPRN PRN GT 10/17/24 16:45 10/19/24 05:54 17 GM Hydrocortisone Sodium Succinate 50 mg Q6HR IV 10/19/24 18:00 11/03/24 05:39 50 MG Vancomycin HCl 0 ml @ 0 mls/hr UD IV 10/19/24 14:00 Cancel Amino Acid Protein 30 ml DAILY GT 10/22/24 10:00 10/28/24 10:24 30 ML Apixaban 2.5 mg BID PO 10/25/24 10:00 Hold Metoclopramide HCl 5 mg BID IV 10/25/24 10:00 Hold 10/25/24 21:32 5 MG Sodium Chloride 10 ml QSHIFT@10,22 IV 10/26/24 22:00 11/02/24 22:28 10 ML Morphine Sulfate 2 mg Q4HPRN PRN IV 10/28/24 10:30 11/02/24 10:37 2 MG Metoprolol Tartrate 12.5 mg BID PO 10/28/24 22:00 10/30/24 09:24 12.5 MG Ertapenem 1 gm/ Sodium Chloride 50 ml @ 100 mls/hr DAILY IV 10/30/24 10:00 11/02/24 10:22 100 MLS/HR Metoprolol Tartrate 2.5 mg Q6HPRN PRN IV 10/31/24 09:15 Dextrose/Sodium Chloride 1,000 ml @ 50 mls/hr Q20H IV 10/31/24 18:45 11/02/24 10:45 50 MLS/HR Amino Acids 0 ml @ 0 mls/hr PER PHARMACY IV 11/01/24 11:00 Diagnostic Test (Pha) 1 strip Q6HR 11/01/24 18:00 11/03/24 05:39 1 STRIP Insulin Human Regular FOLLOW SLIDING SCALE Q6HR SC 11/01/24 18:00 11/02/24 05:43 2 UNITS Dextrose 50 ml UD IV 11/01/24 18:00 Amino Acids/ Electrolytes/ Dextrose 1,000 ml @ 41 mls/hr DAILY@2200 IV 11/01/24 22:00 11/02/24 22:30 41 MLS/HR laboratory and microbiology Laboratory Tests 11/02/24 06:01 Test 11/02/24 06:01 Range/Units Serum Glucose 142 H 74-106 mg/dL Assessment/Plan In Tele. Failed swallowing evaluation. Alert and oriented to self only. Eliquis is still pending to start (INR is still above 2) Patient is a 54-year-old female who was brought to the hospital for witnessed syncope. She is intubated and is being managed in ICU. Information was obtained by reviewing the chart and communicating with patient's son (over the phone). Family recognized witnessed syncope and started CPR and called EMS. Reportedly, EMS found the patient in ventricular fibrillation and shocked the patient and brought the patient to the hospital. Patient was intubated in emergency room and transferred to ICU. Patient was on amiodarone drip. Later the patient had ventricular tachycardia (Systane). High sensitive troponin had been minimally/flatly elevated. Presentation was not in favor of acute coronary syndrome. Cardiology is involved for cardiac aspects of care. NAD Does not talk. Alert and oriented to self only. No JVD. Mucosa pale. No carotid bruit. Scattered rhonchi in the lungs is heard. Cardiac: Regular, no thrill. Systolic murmur 2/6 in apex is heard. Abdomen is soft. No edema in extremities. Past medical history as per son: Congenital heart disease, status post bypass WBC: 14.5 - 11.9 - 18.8 - 20.0 - 21.2 - 14.3 - 10.3 - 8.9 - 9.2 - 11.1 - 12.1 - 10.8 - 12.0 - 9.9 - 15.4 - 14.8 - 12.1 - 10.5 - 5.8 - 5.3 - 4.2 - 5.8 - 4.1 - 7.0 - 9.3 - 8.3 - 11.5 - 8.4 - 8.4 - 5.4 Hemoglobin: 10.1 - 9.6 - 9.2 - 8.8 - 8.7 - 8.0 - 8.3 - 8.5 - 7.8 - 10.2 - 10.7 - 9.9 - 9.7 - 9.3 - 9.3 - 8.6 - 8.1 - 7.4 - 7.5 - 7.4 - 7.5 - 7.2 - 7.7 - 7.0 - (post PRBC transfusion) 10.4 - 10 - 9.5 - 10.0 - 9.2 - 9.8 -9.8 Creatinine: 0.95 - 0.93 - 0.87 - 0.83 - 0.83 - 0.76 - 0.68 - 0.72 - 0.79 - 0.76 - 0.80 - 0.84 - 0.61 - 0.65 - 0.74 - 0.64 - 0.73 - 0.82 - 0.88 - 1.03 - 0.99 - 0.85 - 0.87 - 0.79 - 1.12 - 1.15 - 1.04 - 0.96 - 0.94 - 0.93 - 0.78 Potassium: 3.4 - 4.0 - 4.6 - 3.5 - 3.3 - 4.1 - 3.7 - 3.2 - 3.7 - 4.0 - 3.2 - 3.4 - 3.9 - 4.2 - 3.3 - 3.8 - 3.6 - 3.4 - 4.2 - 3.8 - 4.5 - 4.1 - 3.5 - 4.2 - 3.3 - 2.6 - 3.5 - 3.8 - 2.4 - 2.9 - 4.6 - 2.8 - 4.8 - 4.9 - 3.4 - 3.1 - 3.7 - 4.4 - 3.7 - 3.7 - 3.1 Magnesium: 2.0 - 1.6 - 2.0 - 3.0 - 1.5 - 1.9 - 2.1 - 1.8 - 2.0 - 1.9 - 1.9 - 2.6 - 2.0 - 1.8 - 1.6 - 2.0 - 2.2 - 1.9 - 2.3 - 2.2 - 2.2 - 2.1 - 2.1 - 1.9 2.7 - 2.6 - 2.3 - 2.4 - 2.5 - 2.3 - 2.5 Troponin (high sensitive): 141 - 138 - 117 BNP: 457.16 - 1073.91 AST/ALT: 32/11 - 19/13 - 538/168 - 293/152 - 131/130 - 78/94 - 68/74 - 48/57 - 27/38 - 15/23 - 20/18 - 23/17 - 29/16 - 27/13 - 34/17 - 73/49 - 41/43 - 30/47 - 30/42 - 29/42 - 17/27 - 160/87 - 900/478 - 986/571 - 382/436 - 110/244 - 42/170 - 22/113 Digoxin level: 2.83 - 1.25 - 0.98 UDS: non-revealing Chest x-ray revealed: Lines and Tubes: Endotracheal tube tip projects approximately 1.4 cm above the level of the tyler. Enteric catheter courses below the lateral of the diaphragm and terminates beyond the inferior margin of the image. Right internal jugular central venous catheter terminates within the distal superior vena cava. Lungs: Moderate diffuse increased prominence of the pulmonary vasculature without evidence of focal consolidation. Pleura: No effusion. No pneumothorax. Cardiomediastinal contours: Cardiomegaly. Bones: Unremarkable IMPRESSION: 1. Cardiomegaly and diffuse increased prominence of the pulmonary vasculature. 2. Lines and tubes as above. Repeat chest x-ray revealed: IMPRESSION: 1. Endotracheal tube tip 1.6 cm above the tyler; consider 2 cm retraction 2. Mild pulmonary vascular congestion. Moderate cardiomegaly. Repeat chest xry revealed: IMPRESSION: Endotracheal tube tip 1.6 cm above the tyler; consider 2 cm retraction Mild pulmonary vascular congestion. Moderate cardiomegaly. Repeat chest xry revealed: IMPRESSION: 1. Stable cardiomegaly, small left pleural effusion and mild diffuse increased prominence of the pulmonary vasculature. 2. Repositioned endotracheal tube as above. Remaining lines and tubes unchanged. Repeat chest xry revealed: IMPRESSION: 1. Cardiomegaly, stable diffuse increased prominence of the pulmonary vasculature and small bilateral pleural effusions. 2. Slight interval advancement of endotracheal tube as above. Remaining lines and tubes unchanged. Repeat chest xry revealed: IMPRESSION: 1. Slight interval decrease in diffuse increased prominence of the pulmonary vasculature. 2. Stable cardiomegaly and small left pleural effusion. 3. Lines and tubes unchanged. Repeat chest xry revealed: IMPRESSION: 1. Cardiomegaly and small left pleural effusion. 2. Lines and tubes unchanged. Repeat chest xry revealed: IMPRESSION: Stable lines and tubes. Similar lung aeration. Repeat chest xry revealed: IMPRESSION: Cardiomegaly and small left pleural effusion. Lines and tubes unchanged. Repeat chest xry revealed: IMPRESSION: Placement of a cardiac pacer, no pneumothorax is seen. Stable lines and tubes. Repeat chest xry revealed: IMPRESSION: 1. Worsening mixed opacities in the right lower lung. No other significant change from the previous study. Stable support devices. Repeat chest xry revealed: Heart is prominent in size with postsurgical changes, median sternotomy wires, and a single lead left cardiac defibrillator. Support lines and tubes appear unchanged in satisfactory in position. No sizable effusion or pneumothorax. Mild pulmonary vascular congestion. No significant interval change. Repeat chest xry revealed: IMPRESSION: 1. No significant change from the previous study. Stable support devices. Similar findings of heart failure including left pleural effusion. Repeat chest xry revealed: IMPRESSION: 1. No significant change from the previous study. Stable support devices. Similar findings of heart failure including trace left pleural effusion. Repeat chest xry revealed: Lines and Tubes: Unchanged. Left anterior chest wall cardiac pacing device. Lungs: Clear Pleura: No effusion. No pneumothorax. Cardiomediastinal contours: Cardiomegaly. Bones: Unremarkable IMPRESSION: 1. Cardiomegaly. 2. Lines and tubes unchanged. Repeat chest xry revealed: IMPRESSION: Lines and tubes in satisfactory position. No significant interval change. Repeat chest xry revealed: Lines and Tubes: ET tube and NG tube removed. Lungs: Congestion Pleura: No effusion. No pneumothorax. Cardiomediastinal contours: Cardiomegaly Bones: Unremarkable IMPRESSION: 1. Cardiomegaly with CHF. Liver Ultrasound revealed: Hepatic steatosis. Trace right pleural effusion. Trace ascites Gallstones Bladder ultrasound revealed: IMPRESSION: 1. Cutler catheter in the bladder in the bladder is decompressed. KUB revealed: IMPRESSION: Nonobstructive bowel gas pattern. Nasogastric tube tip in the stomach. Large stool burden. Repeat KUB revealed: Right lower extremity PICC line with tip projecting over the expected region of the intrahepatic IVC. Nasogastric tube projecting towards the distal stomach. Nonspecific bowel gas pattern. Cardiomegaly and left basilar airspace opacities, incompletely characterized. Atherosclerotic calcification disease. Left upper ext arterial duplex: IMPRESSION: No hemodynamically significant stenosis based on peak systolic velocity criteria. Left lower ext arterial duplex: IMPRESSION: There is no evidence for peripheral vascular insufficiency in the left lower extremity. No significant focal stenosis is identified. Liver Ultrasound revealed: Hepatic steatosis. Hepatomegaly. Cholelithiasis. CT of the head revealed: IMPRESSION: No acute intracranial abnormality. Repeat CT of head revealed: IMPRESSION: No acute intracranial abnormality. Repeat CT of Head revealed: IMPRESSION: No acute intracranial abnormality. Echocardiogram reported: lvef 15-20% dilated LV severe global dysfunction mild RV dysfunction biatrial enlargement mild moderate MAC, moderate mitral regurg mild to moderate aortic regug (images of echo reviewed and questioned presence of mitral ring and also some component (moderate of Mitral stenosis) EKG revealed sinus rhythm Telemetry revealed occasions of atrial fibrillation. There was occasional sustained ventricular tachycardia. EMS tele monitor revealed ventricular fibrillation for which the patient was shocked. Has remained sinus rhythm. Later with A-fib with MVR LHC revealed: Patent RICHMOND to LAD; Patent SVG to obtuse marginal; LVEF of 20% with increased EDP; Proximal disease in LAD/LCX RICHIE was performed: Consistent with severely reduced LVEF. Consistent with previously implanted Mitral ring, Up to moderate Mitral stenosis/Mitral Regurgitation and also Moderate Aortic insufficiency. Patient is a 54-year-old female who presented with witnessed syncope. She was found to have ventricular fibrillation for which was shocked. Later had repeated episode of sustained ventricular tachycardia. Patient has been kept in ICU. Does have baseline history of coronary artery disease for which has had bypass surgery. Left heart catheterization was performed which revealed patent RICHMOND and patent SVG. ACS is not considered at this point. It is of note that the patient's echocardiogram reveals significantly use systolic function. Valvular heart disease is considered. Findings are in favor of previously implanted mitral ring. By reviewing the echo images, component of up to moderate mitral stenosis could not be ruled out. LHC was performed that ruled out any active specific ischemia as an etiology for presentation. Is off Amiodarone for abnormal LFT. Being followed by Nephrology / Pulmonary / Neurology / GI ID. Tele has remained sinus rhythm. Had episode of a-fib with RVR. Was loaded with Digoxin. Dig level was performed at wrong timing (only 5 hours after the last Dig given). Dig toxicity is not considered. Patient is back to normal sinus rhythm. Has good kidney function. Repeat Dig level is acceptable level. s/p ICD implantation by EP. Intubated, later extubated. Syncope V-fib s/p shock Sustained V-tach Paroxysmal A-fib VHD, s/p Mitral ring Systolic heart failure Abnormal LFT, at a point resolved, later appeared again s/p ICD (Biotronik) implantation by EP (Dr Armstrong) s/p PRBC transfusion for significant anemia Hepatic Steatosis Gallstones Cardiac suggestion for management: Manage in Tele Follow up electrolytes and kidney function test and correct abnormalities Full anticoagulation (a-fib with high CHADS-Vasc score). s/p ICD implantation. Awaiting INR below 2.0 (was on warfarin for a while) to start Eliquis Off Amio drip (worsened LFT) On Mexiletine If need for pressure support: use Phenyl Ephrine / vasopressin, keep MAP above 65 (for now off pressure support and tolerating) On Metoprolol to decrease risk of Vtach (as patient has ICD with bradycardia protection: may continue metoprolol in case of bradycardia, but hold: if hypotensive) May consider/add Esmolol for PVC/Vtach (if needed) Does not talk. Alert and oriented to self only. As she has not passed swallowing evaluation: IV Metoprolol if needed (HR above 100) s/p ICD (Biotronik) implantation by EP Off warfarin: Eliquis: 2.5 mg BID (only after INR is below 2.0) s/p PRBC transfusion for anemia Failed swallowing evaluation for now Pulmonary Follow up GI follow up for worsening liver function tests / fatty liver and gallstones Provide previous medical records from reaching out to previous hospitals in [facility]... Further evaluation and management depends on the above and clinical course. A total of 55 minutes was spent reviewing the patient record, examining the patient, making a diagnostic and therapeutic plan, discussing this plan with medical personnel, following up on diagnostic studies and following the patient for clinical stability excluding any and all procedures. At least 50% of this time was spent in direct, [id number] contact. Thank you for allowing me to participate in this patient's care. Further recommendations will depend on patient's clinical course. Please do not hesitate to contact me if you have any questions or concerns. This medical document was created using electronic medical record system with [employer] computerized dictation system. Although this document has been carefully reviewed, there may still be some phonetic and typographical errors. These areas are purely typographical due to the imperfection of the software programs, and do not reflect any compromise in the patient's medical care. Dietary Evaluation Review Comments: 1) TF Jevity 1.2Cal @ 55 ml/hr. x 24hr along with Pro-stat 1 pk daily. Start @ 20ml/hr, increase 10ml/hr Q4H until goal is reached. TF @ goal volume provides 1684 kcal (100% energy needs), 88 gm protein (100% protein needs), 1065 ml free water. 2) Water flush 100ml Q4H if allowed, adjust PRN 3) Advance to cardiac diet as medically feasible 4) Monitor NPO status, lab values, wt trend, I/O Expected Outcomes/Goals: To meet >75% estimated needs within 7 days Lab values to improve Fu 2-3 days Plan discussed with: Other (nurse) CORDELL VERA MD Nov 03, 2024 08:12
[2024-11-03 08:32] LABS: Hematocrit 30.7 % (36.0-46.0); Hemoglobin 9.6 g/dL (12.2-16.2); Mean Corpuscular Hemoglobin 29.6 pg (28.0-32.0); Mean Corpuscular Volume 94.1 fL (80.0-100.0); Nucleated Red Blood Cells % 0.8 %
[2024-11-03 08:48] LABS: INR 3.46 (0.9-1.15); Partial Thromboplastin Time 33.3 SEC (24.5-34.5); Prothrombin Time 32.4 sec (9.3-11.8)
[2024-11-03 09:00] LABS: Alkaline Phosphatase 101 U/L (46-116); Calcium 9.1 mg/dL (8.7-10.4)
[2024-11-03 09:01] LABS: Anion Gap 14 (5-15); BUN/Creatinine Ratio 28.2 (10.0-20.0); Bilirubin, Total 0.9 mg/dL (0.2-1.0); Blood Urea Nitrogen 22 mg/dL (9-23); Magnesium 2.5 mg/dL (1.6-2.6)
[2024-11-03 09:03] LABS: Alanine Aminotransferase 113 U/L (7-40); Albumin 3.1 g/dL (3.2-4.8); Carbon Dioxide 18 mmol/L (20-31); Chloride 118 mmol/L (98-107); Glucose 121 mg/dL (74-106); Potassium 3.1 mmol/L (3.5-5.1); Sodium 150 mmol/L (136-145); Total Protein 5.5 g/dL (5.7-8.2)
--- NOTE | 2024-11-03 14:12 | DVH ---
INDICATION: OBSTRUCTION DUE TO STONES/ CRYSTALLIZATION AT URETHRA TECHNIQUE: Multiple real-time grayscale transabdominal sonographic images along with color and duplex Doppler of the uterus and ovaries were obtained. COMPARISON: US BLADDER on DOS: 10/29/24 Findings/IMPRESSION: Urinary bladder is unremarkable with prevoid volume of 29 mL. Urinary bladder wall measures 1.5 mm. Westfall catheter is noted.
--- NOTE | 2024-11-03 14:19 | DVHPN2 ---
Progress Note - Dictate Date Seen: Nov 03, 2024 Has the PT tested + for MRSA If YES, has PT been informed?: No Medical Necessity Reason Pt with a Central, PICC or Fol: Yes The following are medically ne: PICC Line, Cutler Catheter Reason for cutler catheter: Strict I&O vital signs Vital Sign Date Time Temp Pulse Resp B/P (MAP) Pulse Ox O2 Delivery O2 Flow Rate FiO2 11/03/24 12:46 97.4 55 20 115/65 (82) 91 97.4 11/02/24 20:00 Room Air* 0 21 Total Intake and Output 11/02/24 11/02/24 11/03/24 15:00 23:00 07:00 Intake Total 50 ml 0 ml 0 ml Output Total 200 ml Balance 50 ml -200 ml 0 ml medications Current Medications Medications Dose Ordered Sig/Liliam Route Start Time Stop Time Status Last Admin Dose Admin Ondansetron HCl 4 mg Q4HP PRN IV 10/07/24 10:00 Nitroglycerin 0.4 mg Q5MINP PRN SL 10/07/24 10:00 Pantoprazole Sodium 40 mg DAILY IV 10/07/24 10:00 11/03/24 10:22 40 MG Mexiletine HCl 150 mg TID GT 10/08/24 22:00 10/30/24 05:32 150 MG Acetaminophen 500 mg Q6HP PRN PO 10/08/24 22:30 10/19/24 03:18 500 MG Amino Acids 0 ml @ 0 mls/hr PER PHARMACY IV 10/15/24 18:45 Cancel Dextrose 50 ml UD IV 10/16/24 09:30 Cancel Polyethylene Glycol 17 gm DAILYPRN PRN GT 10/17/24 16:45 10/19/24 05:54 17 GM Hydrocortisone Sodium Succinate 50 mg Q6HR IV 10/19/24 18:00 11/03/24 13:01 50 MG Vancomycin HCl 0 ml @ 0 mls/hr UD IV 10/19/24 14:00 Cancel Amino Acid Protein 30 ml DAILY GT 10/22/24 10:00 10/28/24 10:24 30 ML Apixaban 2.5 mg BID PO 10/25/24 10:00 Hold Metoclopramide HCl 5 mg BID IV 10/25/24 10:00 Hold 10/25/24 21:32 5 MG Sodium Chloride 10 ml QSHIFT@10,22 IV 10/26/24 22:00 11/03/24 10:22 10 ML Morphine Sulfate 2 mg Q4HPRN PRN IV 10/28/24 10:30 11/03/24 10:37 2 MG Metoprolol Tartrate 12.5 mg BID PO 10/28/24 22:00 10/30/24 09:24 12.5 MG Ertapenem 1 gm/ Sodium Chloride 50 ml @ 100 mls/hr DAILY IV 10/30/24 10:00 11/03/24 10:21 100 MLS/HR Metoprolol Tartrate 2.5 mg Q6HPRN PRN IV 10/31/24 09:15 Dextrose/Sodium Chloride 1,000 ml @ 50 mls/hr Q20H IV 10/31/24 18:45 11/03/24 12:25 50 MLS/HR Amino Acids 0 ml @ 0 mls/hr PER PHARMACY IV 11/01/24 11:00 Diagnostic Test (Pha) 1 strip Q6HR 11/01/24 18:00 11/03/24 12:25 1 STRIP Insulin Human Regular FOLLOW SLIDING SCALE Q6HR SC 11/01/24 18:00 11/02/24 05:43 2 UNITS Dextrose 50 ml UD IV 11/01/24 18:00 Amino Acids/ Electrolytes/ Dextrose 1,000 ml @ 41 mls/hr DAILY@2200 IV 11/01/24 22:00 11/02/24 22:30 41 MLS/HR laboratory and microbiology Laboratory Tests 11/03/24 07:13 Test 11/03/24 07:13 Range/Units Serum Glucose 121 H 74-106 mg/dL Assessment/Plan impression s/p cardiac arrest VT CPR <5 min elevated troponin acute resp failure atelectases pt seen and examined events s/p extubation low oxygen requirements on room air no distress s/p pacemaker management plan supplemental oxygen as needed titrate to maintain sats 90% or above incentive spirometry aspiration precautions cont abx monitor cx monitor labs renal function daily abg and CXR dvt proph/on aggressive physical therapy f/u cardiology Dietary Evaluation Review Comments: 1) TF Jevity 1.2Cal @ 55 ml/hr. x 24hr along with Pro-stat 1 pk daily. Start @ 20ml/hr, increase 10ml/hr Q4H until goal is reached. TF @ goal volume provides 1684 kcal (100% energy needs), 88 gm protein (100% protein needs), 1065 ml free water. 2) Water flush 100ml Q4H if allowed, adjust PRN 3) Advance to cardiac diet as medically feasible 4) Monitor NPO status, lab values, wt trend, I/O Expected Outcomes/Goals: To meet >75% estimated needs within 7 days Lab values to improve Fu 2-3 days Plan discussed with: Patient BELLO ROTHMAN MD Nov 03, 2024 14:19
[2024-11-03] MEDS: POTASSIUM CHL 20MEQ/100ML 100 ML IV ONE (17:50)
[2024-11-03] MEDS: POTASSIUM PHOSPHATE 44 MEQ in D5W 5% 250 ML IV ONE (20:55)
[2024-11-03] MEDS ORDERED: AMINO ACID INFUSION IN D10W 1,000 ML IV SCH (22:00)
[2024-11-04] VITALS (10 sets, daily range): BP systolic 105–141; BP diastolic 47–69; PULSE 55–73; RESP 16–20; TEMP 97–98.7; O2SAT 93–96
--- NOTE | 2024-11-04 08:58 | DVHPN2 ---
Progress Note - Dictate Date Seen: Nov 04, 2024 Has the PT tested + for MRSA If YES, has PT been informed?: No Medical Necessity Reason Pt with a Central, PICC or Fol: Yes The following are medically ne: PICC Line, Cutler Catheter Reason for cutler catheter: Strict I&O vital signs Vital Sign Date Time Temp Pulse Resp B/P (MAP) Pulse Ox O2 Delivery O2 Flow Rate FiO2 11/04/24 05:00 98.6 57 18 107/69 (82) 96 98.6 11/03/24 20:00 Room Air* 0 21 Total Intake and Output 11/03/24 11/03/24 11/04/24 15:00 23:00 07:00 Intake Total 950 ml 0 ml Output Total 50 ml 250 ml Balance 950 ml -50 ml -250 ml medications Current Medications Medications Dose Ordered Sig/Liliam Route Start Time Stop Time Status Last Admin Dose Admin Ondansetron HCl 4 mg Q4HP PRN IV 10/07/24 10:00 Nitroglycerin 0.4 mg Q5MINP PRN SL 10/07/24 10:00 Pantoprazole Sodium 40 mg DAILY IV 10/07/24 10:00 11/04/24 08:37 40 MG Acetaminophen 500 mg Q6HP PRN PO 10/08/24 22:30 10/19/24 03:18 500 MG Amino Acids 0 ml @ 0 mls/hr PER PHARMACY IV 10/15/24 18:45 Cancel Dextrose 50 ml UD IV 10/16/24 09:30 Cancel Polyethylene Glycol 17 gm DAILYPRN PRN GT 10/17/24 16:45 10/19/24 05:54 17 GM Hydrocortisone Sodium Succinate 50 mg Q6HR IV 10/19/24 18:00 11/04/24 06:08 50 MG Vancomycin HCl 0 ml @ 0 mls/hr UD IV 10/19/24 14:00 Cancel Apixaban 2.5 mg BID PO 10/25/24 10:00 Hold Metoclopramide HCl 5 mg BID IV 10/25/24 10:00 Hold 10/25/24 21:32 5 MG Sodium Chloride 10 ml QSHIFT@10,22 IV 10/26/24 22:00 11/03/24 20:54 10 ML Morphine Sulfate 2 mg Q4HPRN PRN IV 10/28/24 10:30 11/03/24 10:37 2 MG Metoprolol Tartrate 12.5 mg BID PO 10/28/24 22:00 10/30/24 09:24 12.5 MG Ertapenem 1 gm/ Sodium Chloride 50 ml @ 100 mls/hr DAILY IV 10/30/24 10:00 11/03/24 10:21 100 MLS/HR Metoprolol Tartrate 2.5 mg Q6HPRN PRN IV 10/31/24 09:15 Dextrose/Sodium Chloride 1,000 ml @ 50 mls/hr Q20H IV 10/31/24 18:45 11/04/24 03:38 50 MLS/HR Amino Acids 0 ml @ 0 mls/hr PER PHARMACY IV 11/01/24 11:00 Diagnostic Test (Pha) 1 strip Q6HR 11/01/24 18:00 11/04/24 06:09 1 STRIP Insulin Human Regular FOLLOW SLIDING SCALE Q6HR SC 11/01/24 18:00 11/04/24 06:14 2 UNITS Dextrose 50 ml UD IV 11/01/24 18:00 Amino Acids/ Electrolytes/ Dextrose 1,000 ml @ 41 mls/hr DAILY@2200 IV 11/01/24 22:00 11/03/24 20:55 41 MLS/HR Amino Acids 0 ml @ 0 mls/hr PER PHARMACY IV 11/04/24 22:00 Amino Acid Protein 30 ml DAILY PO 11/04/24 10:00 Mexiletine HCl 150 mg TID PO 11/04/24 14:00 laboratory and microbiology Laboratory Tests 11/03/24 07:13 Test 11/04/24 08:29 Range/Units Serum Glucose Pending Assessment/Plan In Tele. Failed swallowing evaluation. Alert and oriented to self only. Eliquis is still pending to start (INR is still above 2) Patient is a 54-year-old female who was brought to the hospital for witnessed syncope. She is intubated and is being managed in ICU. Information was obtained by reviewing the chart and communicating with patient's son (over the phone). Family recognized witnessed syncope and started CPR and called EMS. Reportedly, EMS found the patient in ventricular fibrillation and shocked the patient and brought the patient to the hospital. Patient was intubated in emergency room and transferred to ICU. Patient was on amiodarone drip. Later the patient had ventricular tachycardia (Systane). High sensitive troponin had been minimally/flatly elevated. Presentation was not in favor of acute coronary syndrome. Cardiology is involved for cardiac aspects of care. NAD Does not talk. Alert and oriented to self only. No JVD. Mucosa pale. No carotid bruit. Scattered rhonchi in the lungs is heard. Cardiac: Regular, no thrill. Systolic murmur 2/6 in apex is heard. Abdomen is soft. No edema in extremities. Past medical history as per son: Congenital heart disease, status post bypass WBC: 14.5 - 11.9 - 18.8 - 20.0 - 21.2 - 14.3 - 10.3 - 8.9 - 9.2 - 11.1 - 12.1 - 10.8 - 12.0 - 9.9 - 15.4 - 14.8 - 12.1 - 10.5 - 5.8 - 5.3 - 4.2 - 5.8 - 4.1 - 7.0 - 9.3 - 8.3 - 11.5 - 8.4 - 8.4 - 5.4 Hemoglobin: 10.1 - 9.6 - 9.2 - 8.8 - 8.7 - 8.0 - 8.3 - 8.5 - 7.8 - 10.2 - 10.7 - 9.9 - 9.7 - 9.3 - 9.3 - 8.6 - 8.1 - 7.4 - 7.5 - 7.4 - 7.5 - 7.2 - 7.7 - 7.0 - (post PRBC transfusion) 10.4 - 10 - 9.5 - 10.0 - 9.2 - 9.8 -9.8 Creatinine: 0.95 - 0.93 - 0.87 - 0.83 - 0.83 - 0.76 - 0.68 - 0.72 - 0.79 - 0.76 - 0.80 - 0.84 - 0.61 - 0.65 - 0.74 - 0.64 - 0.73 - 0.82 - 0.88 - 1.03 - 0.99 - 0.85 - 0.87 - 0.79 - 1.12 - 1.15 - 1.04 - 0.96 - 0.94 - 0.93 - 0.78 - 0.71 Potassium: 3.4 - 4.0 - 4.6 - 3.5 - 3.3 - 4.1 - 3.7 - 3.2 - 3.7 - 4.0 - 3.2 - 3.4 - 3.9 - 4.2 - 3.3 - 3.8 - 3.6 - 3.4 - 4.2 - 3.8 - 4.5 - 4.1 - 3.5 - 4.2 - 3.3 - 2.6 - 3.5 - 3.8 - 2.4 - 2.9 - 4.6 - 2.8 - 4.8 - 4.9 - 3.4 - 3.1 - 3.7 - 4.4 - 3.7 - 3.7 - 3.1 - 3.0 Magnesium: 2.0 - 1.6 - 2.0 - 3.0 - 1.5 - 1.9 - 2.1 - 1.8 - 2.0 - 1.9 - 1.9 - 2.6 - 2.0 - 1.8 - 1.6 - 2.0 - 2.2 - 1.9 - 2.3 - 2.2 - 2.2 - 2.1 - 2.1 - 1.9 2.7 - 2.6 - 2.3 - 2.4 - 2.5 - 2.3 - 2.5 - 2.3 Troponin (high sensitive): 141 - 138 - 117 BNP: 457.16 - 1073.91 AST/ALT: 32/11 - 19/13 - 538/168 - 293/152 - 131/130 - 78/94 - 68/74 - 48/57 - 27/38 - 15/23 - 20/18 - 23/17 - 29/16 - 27/13 - 34/17 - 73/49 - 41/43 - 30/47 - 30/42 - 29/42 - 17/27 - 160/87 - 900/478 - 986/571 - 382/436 - 110/244 - 42/170 - 22/113 - 16/77 Digoxin level: 2.83 - 1.25 - 0.98 UDS: non-revealing Chest x-ray revealed: Lines and Tubes: Endotracheal tube tip projects approximately 1.4 cm above the level of the tyler. Enteric catheter courses below the lateral of the diaphragm and terminates beyond the inferior margin of the image. Right internal jugular central venous catheter terminates within the distal superior vena cava. Lungs: Moderate diffuse increased prominence of the pulmonary vasculature without evidence of focal consolidation. Pleura: No effusion. No pneumothorax. Cardiomediastinal contours: Cardiomegaly. Bones: Unremarkable IMPRESSION: 1. Cardiomegaly and diffuse increased prominence of the pulmonary vasculature. 2. Lines and tubes as above. Repeat chest x-ray revealed: IMPRESSION: 1. Endotracheal tube tip 1.6 cm above the tyler; consider 2 cm retraction 2. Mild pulmonary vascular congestion. Moderate cardiomegaly. Repeat chest xry revealed: IMPRESSION: Endotracheal tube tip 1.6 cm above the tyler; consider 2 cm retraction Mild pulmonary vascular congestion. Moderate cardiomegaly. Repeat chest xry revealed: IMPRESSION: 1. Stable cardiomegaly, small left pleural effusion and mild diffuse increased prominence of the pulmonary vasculature. 2. Repositioned endotracheal tube as above. Remaining lines and tubes unchanged. Repeat chest xry revealed: IMPRESSION: 1. Cardiomegaly, stable diffuse increased prominence of the pulmonary vasculature and small bilateral pleural effusions. 2. Slight interval advancement of endotracheal tube as above. Remaining lines and tubes unchanged. Repeat chest xry revealed: IMPRESSION: 1. Slight interval decrease in diffuse increased prominence of the pulmonary vasculature. 2. Stable cardiomegaly and small left pleural effusion. 3. Lines and tubes unchanged. Repeat chest xry revealed: IMPRESSION: 1. Cardiomegaly and small left pleural effusion. 2. Lines and tubes unchanged. Repeat chest xry revealed: IMPRESSION: Stable lines and tubes. Similar lung aeration. Repeat chest xry revealed: IMPRESSION: Cardiomegaly and small left pleural effusion. Lines and tubes unchanged. Repeat chest xry revealed: IMPRESSION: Placement of a cardiac pacer, no pneumothorax is seen. Stable lines and tubes. Repeat chest xry revealed: IMPRESSION: 1. Worsening mixed opacities in the right lower lung. No other significant change from the previous study. Stable support devices. Repeat chest xry revealed: Heart is prominent in size with postsurgical changes, median sternotomy wires, and a single lead left cardiac defibrillator. Support lines and tubes appear unchanged in satisfactory in position. No sizable effusion or pneumothorax. Mild pulmonary vascular congestion. No significant interval change. Repeat chest xry revealed: IMPRESSION: 1. No significant change from the previous study. Stable support devices. Similar findings of heart failure including left pleural effusion. Repeat chest xry revealed: IMPRESSION: 1. No significant change from the previous study. Stable support devices. Similar findings of heart failure including trace left pleural effusion. Repeat chest xry revealed: Lines and Tubes: Unchanged. Left anterior chest wall cardiac pacing device. Lungs: Clear Pleura: No effusion. No pneumothorax. Cardiomediastinal contours: Cardiomegaly. Bones: Unremarkable IMPRESSION: 1. Cardiomegaly. 2. Lines and tubes unchanged. Repeat chest xry revealed: IMPRESSION: Lines and tubes in satisfactory position. No significant interval change. Repeat chest xry revealed: Lines and Tubes: ET tube and NG tube removed. Lungs: Congestion Pleura: No effusion. No pneumothorax. Cardiomediastinal contours: Cardiomegaly Bones: Unremarkable IMPRESSION: 1. Cardiomegaly with CHF. Liver Ultrasound revealed: Hepatic steatosis. Trace right pleural effusion. Trace ascites Gallstones Bladder ultrasound revealed: IMPRESSION: 1. Cutler catheter in the bladder in the bladder is decompressed. Repeat Bladder Ultrasound revealed: Urinary bladder is unremarkable with prevoid volume of 29 mL. Urinary bladder wall measures 1.5 mm. Cutler catheter is noted. KUB revealed: IMPRESSION: Nonobstructive bowel gas pattern. Nasogastric tube tip in the stomach. Large stool burden. Repeat KUB revealed: Right lower extremity PICC line with tip projecting over the expected region of the intrahepatic IVC. Nasogastric tube projecting towards the distal stomach. Nonspecific bowel gas pattern. Cardiomegaly and left basilar airspace opacities, incompletely characterized. Atherosclerotic calcification disease. Left upper ext arterial duplex: IMPRESSION: No hemodynamically significant stenosis based on peak systolic velocity criteria. Left lower ext arterial duplex: IMPRESSION: There is no evidence for peripheral vascular insufficiency in the left lower extremity. No significant focal stenosis is identified. Liver Ultrasound revealed: Hepatic steatosis. Hepatomegaly. Cholelithiasis. CT of the head revealed: IMPRESSION: No acute intracranial abnormality. Repeat CT of head revealed: IMPRESSION: No acute intracranial abnormality. Repeat CT of Head revealed: IMPRESSION: No acute intracranial abnormality. Echocardiogram reported: lvef 15-20% dilated LV severe global dysfunction mild RV dysfunction biatrial enlargement mild moderate MAC, moderate mitral regurg mild to moderate aortic regug (images of echo reviewed and questioned presence of mitral ring and also some component (moderate of Mitral stenosis) EKG revealed sinus rhythm Telemetry revealed occasions of atrial fibrillation. There was occasional sustained ventricular tachycardia. EMS tele monitor revealed ventricular fibrillation for which the patient was shocked. Has remained sinus rhythm. Later with A-fib with MVR LHC revealed: Patent RICHMOND to LAD; Patent SVG to obtuse marginal; LVEF of 20% with increased EDP; Proximal disease in LAD/LCX RICHIE was performed: Consistent with severely reduced LVEF. Consistent with previously implanted Mitral ring, Up to moderate Mitral stenosis/Mitral Regurgitation and also Moderate Aortic insufficiency. Patient is a 54-year-old female who presented with witnessed syncope. She was found to have ventricular fibrillation for which was shocked. Later had repeated episode of sustained ventricular tachycardia. Patient has been kept in ICU. Does have baseline history of coronary artery disease for which has had bypass surgery. Left heart catheterization was performed which revealed patent RICHMOND and patent SVG. ACS is not considered at this point. It is of note that the patient's echocardiogram reveals significantly use systolic function. Valvular heart disease is considered. Findings are in favor of previously implanted mitral ring. By reviewing the echo images, component of up to moderate mitral stenosis could not be ruled out. LHC was performed that ruled out any active specific ischemia as an etiology for presentation. Is off Amiodarone for abnormal LFT. Being followed by Nephrology / Pulmonary / Neurology / GI ID. Tele has remained sinus rhythm. Had episode of a-fib with RVR. Was loaded with Digoxin. Dig level was performed at wrong timing (only 5 hours after the last Dig given). Dig toxicity is not considered. Patient is back to normal sinus rhythm. Has good kidney function. Repeat Dig level is acceptable level. s/p ICD implantation by EP. Intubated, later extubated. Syncope V-fib s/p shock Sustained V-tach Paroxysmal A-fib VHD, s/p Mitral ring Systolic heart failure Abnormal LFT, at a point resolved, later appeared again s/p ICD (Biotronik) implantation by EP (Dr Armstrong) s/p PRBC transfusion for significant anemia Hepatic Steatosis Gallstones Cardiac suggestion for management: Manage in Tele Follow up electrolytes and kidney function test and correct abnormalities Full anticoagulation (a-fib with high CHADS-Vasc score). s/p ICD implantation. Awaiting INR below 2.0 (was on warfarin for a while) to start Eliquis Off Amio drip (worsened LFT) On Mexiletine If need for pressure support: use Phenyl Ephrine / vasopressin, keep MAP above 65 (for now off pressure support and tolerating) On Metoprolol to decrease risk of Vtach (as patient has ICD with bradycardia protection: may continue metoprolol in case of bradycardia, but hold: if hypotensive) May consider/add Esmolol for PVC/Vtach (if needed) Does not talk. Alert and oriented to self only. As she has not passed swallowing evaluation: IV Metoprolol if needed (HR above 100) s/p ICD (Biotronik) implantation by EP Off warfarin: Eliquis: 2.5 mg BID (only after INR is below 2.0) s/p PRBC transfusion for anemia Failed swallowing evaluation for now Pulmonary Follow up GI follow up for worsening liver function tests / fatty liver and gallstones Provide previous medical records from reaching out to previous hospitals in [facility]... Further evaluation and management depends on the above and clinical course. A total of 55 minutes was spent reviewing the patient record, examining the patient, making a diagnostic and therapeutic plan, discussing this plan with medical personnel, following up on diagnostic studies and following the patient for clinical stability excluding any and all procedures. At least 50% of this time was spent in direct, [id number] contact. Thank you for allowing me to participate in this patient's care. Further recommendations will depend on patient's clinical course. Please do not hesitate to contact me if you have any questions or concerns. This medical document was created using electronic medical record system with [employer] computerized dictation system. Although this document has been carefully reviewed, there may still be some phonetic and typographical errors. These areas are purely typographical due to the imperfection of the software programs, and do not reflect any compromise in the patient's medical care. Dietary Evaluation Review Comments: 1) TF Jevity 1.2Cal @ 55 ml/hr. x 24hr along with Pro-stat 1 pk daily. Start @ 20ml/hr, increase 10ml/hr Q4H until goal is reached. TF @ goal volume provides 1684 kcal (100% energy needs), 88 gm protein (100% protein needs), 1065 ml free water. 2) Water flush 100ml Q4H if allowed, adjust PRN 3) Advance to cardiac diet as medically feasible 4) Monitor NPO status, lab values, wt trend, I/O Expected Outcomes/Goals: To meet >75% estimated needs within 7 days Lab values to improve Fu 2-3 days Plan discussed with: Other (nurse) CORDELL VERA MD Nov 04, 2024 08:58
[2024-11-04 09:04] LABS: Partial Thromboplastin Time 35.4 SEC (24.5-34.5); Prothrombin Time 42.4 sec (9.3-11.8)
[2024-11-04 09:10] LABS: INR 4.66 (0.9-1.15)
[2024-11-04] MEDS: Pro-Stat SF 30ml Vanilla PO SCH (09:12)
[2024-11-04 09:15] LABS: Alkaline Phosphatase 89 U/L (46-116); Anion Gap 15 (5-15); BUN/Creatinine Ratio 52.1 (10.0-20.0); Bilirubin, Total 0.8 mg/dL (0.2-1.0); Calcium 8.7 mg/dL (8.7-10.4); Magnesium 2.3 mg/dL (1.6-2.6)
[2024-11-04 09:18] LABS: Alanine Aminotransferase 77 U/L (7-40); Albumin 3.0 g/dL (3.2-4.8); Blood Urea Nitrogen 37 mg/dL (9-23); Carbon Dioxide 17 mmol/L (20-31); Chloride 118 mmol/L (98-107); Glucose 140 mg/dL (74-106); Potassium 3.0 mmol/L (3.5-5.1); Sodium 150 mmol/L (136-145); Total Protein 5.2 g/dL (5.7-8.2)
--- NOTE | 2024-11-04 12:40 | DVHPN2 ---
Progress Note - Dictate Date Seen: Nov 04, 2024 Has the PT tested + for MRSA If YES, has PT been informed?: No Medical Necessity Reason Pt with a Central, PICC or Fol: Yes The following are medically ne: PICC Line, Cutler Catheter Reason for cutler catheter: Strict I&O vital signs Vital Sign Date Time Temp Pulse Resp B/P (MAP) Pulse Ox O2 Delivery O2 Flow Rate FiO2 11/04/24 09:11 55 107/42 11/04/24 08:00 Room Air* 0 21 11/04/24 05:00 98.6 18 96 98.6 Total Intake and Output 11/03/24 11/03/24 11/04/24 15:00 23:00 07:00 Intake Total 950 ml 0 ml Output Total 50 ml 250 ml Balance 950 ml -50 ml -250 ml medications Current Medications Medications Dose Ordered Sig/Liliam Route Start Time Stop Time Status Last Admin Dose Admin Ondansetron HCl 4 mg Q4HP PRN IV 10/07/24 10:00 Nitroglycerin 0.4 mg Q5MINP PRN SL 10/07/24 10:00 Pantoprazole Sodium 40 mg DAILY IV 10/07/24 10:00 11/04/24 08:37 40 MG Acetaminophen 500 mg Q6HP PRN PO 10/08/24 22:30 10/19/24 03:18 500 MG Amino Acids 0 ml @ 0 mls/hr PER PHARMACY IV 10/15/24 18:45 Cancel Dextrose 50 ml UD IV 10/16/24 09:30 Cancel Polyethylene Glycol 17 gm DAILYPRN PRN GT 10/17/24 16:45 10/19/24 05:54 17 GM Hydrocortisone Sodium Succinate 50 mg Q6HR IV 10/19/24 18:00 11/04/24 06:08 50 MG Vancomycin HCl 0 ml @ 0 mls/hr UD IV 10/19/24 14:00 Cancel Apixaban 2.5 mg BID PO 10/25/24 10:00 Hold Metoclopramide HCl 5 mg BID IV 10/25/24 10:00 Hold 10/25/24 21:32 5 MG Sodium Chloride 10 ml QSHIFT@10,22 IV 10/26/24 22:00 11/04/24 08:56 10 ML Morphine Sulfate 2 mg Q4HPRN PRN IV 10/28/24 10:30 11/03/24 10:37 2 MG Metoprolol Tartrate 12.5 mg BID PO 10/28/24 22:00 10/30/24 09:24 12.5 MG Ertapenem 1 gm/ Sodium Chloride 50 ml @ 100 mls/hr DAILY IV 10/30/24 10:00 11/04/24 08:56 100 MLS/HR Metoprolol Tartrate 2.5 mg Q6HPRN PRN IV 10/31/24 09:15 Dextrose/Sodium Chloride 1,000 ml @ 50 mls/hr Q20H IV 10/31/24 18:45 11/04/24 03:38 50 MLS/HR Amino Acids 0 ml @ 0 mls/hr PER PHARMACY IV 11/01/24 11:00 Diagnostic Test (Pha) 1 strip Q6HR 11/01/24 18:00 11/04/24 06:09 1 STRIP Insulin Human Regular FOLLOW SLIDING SCALE Q6HR SC 11/01/24 18:00 11/04/24 06:14 2 UNITS Dextrose 50 ml UD IV 11/01/24 18:00 Amino Acids/ Electrolytes/ Dextrose 1,000 ml @ 41 mls/hr DAILY@2200 IV 11/01/24 22:00 11/03/24 20:55 41 MLS/HR Amino Acids 0 ml @ 0 mls/hr PER PHARMACY IV 11/04/24 22:00 Amino Acid Protein 30 ml DAILY PO 11/04/24 10:00 Mexiletine HCl 150 mg TID PO 11/04/24 14:00 objective General Appearance: no distress HEENT: EOMI, PERRLA, normal external inspect of ears, no icterus, no nasal drainage Neck: no carotid bruit, no jugular venous distention (JVD), no lymphadenopathy Chest: normal thorax Respiratory: Intubated, clear to auscultation, normal air movement Cardiovascular: regular rate and rhythm, no diastolic murmur, no jugular venous distention (JVD), no rub, no systolic murmur Abdominal: soft, no hepatomegaly, no mass, no splenomegaly, no tenderness Genitourinary: grossly normal external Musculoskeletal: no joint tenderness, no swelling Extremities: normal pulses, no calf tenderness, no clubbing, no cyanosis, no edema Skin: no bruising, no jaundice, no rash Neurological: No focal deficit laboratory and microbiology Laboratory Tests 11/04/24 08:29 11/03/24 07:13 Test 11/04/24 08:29 Range/Units Serum Glucose 140 H 74-106 mg/dL Problem List Cardiac Arrest with Ventricular Fibrillation Assessment: Patient experienced cardiac arrest with ventricular fibrillation on 10/07/24, witnessed by family members who initiated CPR. EMS found the patient in ventricular fibrillation and administered shock therapy. Rhythm strip analysis confirmed ventricular fibrillation. Patient required intubation and sedation upon ED arrival. Currently admitted to ICU for close observation. Cardiology has been consulted and plans for AICD placement, likely on Tuesday. Infectious disease clearance has been obtained for the AICD procedure, addressing initial concerns of leukocytosis which is now improving. Status post-cardiac arrest. Plan: - Continue ICU monitoring - Proceed with AICD placement as planned (likely Tuesday), cleared by infectious disease. - Maintain intubation and sedation until AICD placement - Continue Heparin drip for paroxysmal atrial fibrillation - Continue Mexitil - DC amiodarone due to transaminitis - added esmolol drip per Cardiology for AFib and added push doses of digoxin Coronary Artery Disease Assessment: Patient with history of 2-vessel CABG (Coronary Artery Bypass Grafting). Surgical intervention previously performed to address significant coronary artery stenosis. Plan: - Continue medical management - Follow up with cardiology for ongoing coronary artery disease management Acute and Chronic Systolic Heart Failure Assessment: Patient has acute and chronic systolic heart failure with severely reduced left ventricular function. Ejection fraction is estimated at 15-20%. RICHIE findings are consistent with severely reduced left ventricular ejection fraction, previously implanted mitral ring, up to moderate mitral stenosis and regurgitation, and moderate aortic insufficiency. Plan: - Continue cardiology consultation - continue IV diuretics (IV Lasix) - Monitor renal function Acute Hypoxic Respiratory Failure Assessment: Patient is currently intubated due to acute hypoxic respiratory failure. Dr. Downey from pulmonology is managing this aspect of care. Plan: - Maintain current intubation as per pulmonology recommendation - Proceed with CPAP trials when deemed appropriate by pulmonology Transaminitis Assessment: Patient has elevated liver function tests, likely secondary to amiodarone use. Cardiology has discontinued amiodarone in response. Plan: - Monitor liver function tests - Amiodarone discontinued as per cardiology Enterobacter PNA Assessment: Sputum culture positive for Enterobacter. Plan: - Continue treatment with Eratapenem to complete 10 days regimen -Infectious disease consult Hemodynamic Support Assessment: Patient requires vasopressor support for hemodynamic stability. Plan: - Continue vasopressin - Continue neosynephrine Paroxysmal a fib -DC amiodarone -continue with heparin gtt Shock liver GI consult, trend liver enzymes, hepatitis panel was negative. Ultrasound of the liver had no acute findings. Assessment/Plan Subjective: Patient is A and O x 2. Objective: Patient appears to be agitated. Patient was admitted status post cardiac arrest. Patient has residual metabolic encephalopathy and possible anoxic encephalopathy from prolonged time on ventilator. Repeat CT of the head has no acute findings. Hemoglobin is 9.6. Platelet count is 151. Patient had a bowel movement on November 01. Sodium remains high at 158. Plan: Change fluids to D5W at 50. Transition patient from Clinimix to TPN for nutritional support. Patient has failed her swallow eval. support services tech consult for possible rehab center. Dietary Evaluation Review Comments: 1) TF Jevity 1.2Cal @ 55 ml/hr. x 24hr along with Pro-stat 1 pk daily. Start @ 20ml/hr, increase 10ml/hr Q4H until goal is reached. TF @ goal volume provides 1684 kcal (100% energy needs), 88 gm protein (100% protein needs), 1065 ml free water. 2) Water flush 100ml Q4H if allowed, adjust PRN 3) Advance to cardiac diet as medically feasible 4) Monitor NPO status, lab values, wt trend, I/O Expected Outcomes/Goals: To meet >75% estimated needs within 7 days Lab values to improve Fu 2-3 days Plan discussed with: Patient, Other BRODIE GARVIN [employer] Nov 04, 2024 12:40
[2024-11-04] MEDS: POTASSIUM CHLORIDE 40 MEQ, LIDOCAINE 1% (LOCAL ANESTH.) 4 ML in SODIUM CHL 0.9% 250 ML IV ONE (12:56)
--- NOTE | 2024-11-04 13:31 | DVHPN2 ---
Progress Note - Dictate Date Seen: Nov 04, 2024 Has the PT tested + for MRSA If YES, has PT been informed?: No Medical Necessity Reason Pt with a Central, PICC or Fol: Yes The following are medically ne: PICC Line, Cutler Catheter Reason for cutler catheter: Strict I&O vital signs Vital Sign Date Time Temp Pulse Resp B/P (MAP) Pulse Ox O2 Delivery O2 Flow Rate FiO2 11/04/24 09:11 55 107/42 11/04/24 08:00 Room Air* 0 21 11/04/24 05:00 98.6 18 96 98.6 Total Intake and Output 11/03/24 11/03/24 11/04/24 15:00 23:00 07:00 Intake Total 950 ml 0 ml Output Total 50 ml 250 ml Balance 950 ml -50 ml -250 ml medications Current Medications Medications Dose Ordered Sig/Liliam Route Start Time Stop Time Status Last Admin Dose Admin Ondansetron HCl 4 mg Q4HP PRN IV 10/07/24 10:00 Nitroglycerin 0.4 mg Q5MINP PRN SL 10/07/24 10:00 Pantoprazole Sodium 40 mg DAILY IV 10/07/24 10:00 11/04/24 08:37 40 MG Acetaminophen 500 mg Q6HP PRN PO 10/08/24 22:30 10/19/24 03:18 500 MG Amino Acids 0 ml @ 0 mls/hr PER PHARMACY IV 10/15/24 18:45 Cancel Dextrose 50 ml UD IV 10/16/24 09:30 Cancel Polyethylene Glycol 17 gm DAILYPRN PRN GT 10/17/24 16:45 10/19/24 05:54 17 GM Hydrocortisone Sodium Succinate 50 mg Q6HR IV 10/19/24 18:00 11/04/24 12:52 50 MG Vancomycin HCl 0 ml @ 0 mls/hr UD IV 10/19/24 14:00 Cancel Apixaban 2.5 mg BID PO 10/25/24 10:00 Hold Metoclopramide HCl 5 mg BID IV 10/25/24 10:00 Hold 10/25/24 21:32 5 MG Sodium Chloride 10 ml QSHIFT@10,22 IV 10/26/24 22:00 11/04/24 08:56 10 ML Morphine Sulfate 2 mg Q4HPRN PRN IV 10/28/24 10:30 11/03/24 10:37 2 MG Metoprolol Tartrate 12.5 mg BID PO 10/28/24 22:00 10/30/24 09:24 12.5 MG Ertapenem 1 gm/ Sodium Chloride 50 ml @ 100 mls/hr DAILY IV 10/30/24 10:00 11/04/24 08:56 100 MLS/HR Metoprolol Tartrate 2.5 mg Q6HPRN PRN IV 10/31/24 09:15 Dextrose/Sodium Chloride 1,000 ml @ 50 mls/hr Q20H IV 10/31/24 18:45 11/04/24 03:38 50 MLS/HR Amino Acids 0 ml @ 0 mls/hr PER PHARMACY IV 11/01/24 11:00 Diagnostic Test (Pha) 1 strip Q6HR 11/01/24 18:00 11/04/24 12:00 1 STRIP Insulin Human Regular FOLLOW SLIDING SCALE Q6HR SC 11/01/24 18:00 11/04/24 06:14 2 UNITS Dextrose 50 ml UD IV 11/01/24 18:00 Amino Acids/ Electrolytes/ Dextrose 1,000 ml @ 41 mls/hr DAILY@2200 IV 11/01/24 22:00 11/03/24 20:55 41 MLS/HR Amino Acids 0 ml @ 0 mls/hr PER PHARMACY IV 11/04/24 22:00 Amino Acid Protein 30 ml DAILY PO 11/04/24 10:00 Mexiletine HCl 150 mg TID PO 11/04/24 14:00 Dextrose 1,000 ml @ 50 mls/hr Q20H IV 11/04/24 12:45 UNV laboratory and microbiology Laboratory Tests 11/04/24 08:29 11/03/24 07:13 Test 11/04/24 08:29 Range/Units Serum Glucose 140 H 74-106 mg/dL Assessment/Plan impression s/p cardiac arrest VT CPR <5 min elevated troponin acute resp failure atelectases pt seen and examined events s/p extubation low oxygen requirements on room air no acute events s/p pacemaker management plan supplemental oxygen as needed titrate to maintain sats 90% or above incentive spirometry aspiration precautions cont abx monitor cx monitor labs renal function daily abg and CXR dvt proph/on aggressive physical therapy f/u cardiology Dietary Evaluation Review Comments: 1) TF Jevity 1.2Cal @ 55 ml/hr. x 24hr along with Pro-stat 1 pk daily. Start @ 20ml/hr, increase 10ml/hr Q4H until goal is reached. TF @ goal volume provides 1684 kcal (100% energy needs), 88 gm protein (100% protein needs), 1065 ml free water. 2) Water flush 100ml Q4H if allowed, adjust PRN 3) Advance to cardiac diet as medically feasible 4) Monitor NPO status, lab values, wt trend, I/O Expected Outcomes/Goals: To meet >75% estimated needs within 7 days Lab values to improve Fu 2-3 days Plan discussed with: Patient BELLO ROTHMAN MD Nov 04, 2024 13:31
[2024-11-04] MEDS: MEXILETINE HYDROCHLORIDE 150 MG CAP PO SCH (14:00)
[2024-11-04] MEDS: D5W 5% 1,000 ML IV SCH (18:26)
[2024-11-04] MEDS: POTASSIUM PHOSPHATE 26.4 MEQ in SODIUM CHL 0.9% 100 ML IV ONE (19:43)
[2024-11-04] MEDS ORDERED: TPN PER PHARMACY 0 ML IV SCH (22:00)
[2024-11-04] MEDS: TPN PER PHARMACY IV NR (22:22)
[2024-11-05] VITALS (7 sets, daily range): BP systolic 122–154; BP diastolic 62–76; PULSE 54–60; RESP 18–26; TEMP 97–98.7; O2SAT 95–98
[2024-11-05 06:28] LABS: Alkaline Phosphatase 87 U/L (46-116); Anion Gap 13 (5-15); BUN/Creatinine Ratio 35.3 (10.0-20.0); Calcium 8.7 mg/dL (8.7-10.4); Magnesium 2.3 mg/dL (1.6-2.6); Potassium 3.8 mmol/L (3.5-5.1)
[2024-11-05 06:29] LABS: Bilirubin, Total 0.8 mg/dL (0.2-1.0)
[2024-11-05 06:31] LABS: Alanine Aminotransferase 59 U/L (7-40); Albumin 3.1 g/dL (3.2-4.8); Blood Urea Nitrogen 24 mg/dL (9-23); Carbon Dioxide 18 mmol/L (20-31); Chloride 117 mmol/L (98-107); Glucose 186 mg/dL (74-106); Hematocrit 30.0 % (36.0-46.0); Hemoglobin 9.7 g/dL (12.2-16.2); Mean Corpuscular Hemoglobin 30.4 pg (28.0-32.0); Mean Corpuscular Volume 94.2 fL (80.0-100.0); Nucleated Red Blood Cells % 0.3 %; Sodium 148 mmol/L (136-145); Total Protein 5.5 g/dL (5.7-8.2)
[2024-11-05 06:33] LABS: INR 2.22 (0.9-1.15); Partial Thromboplastin Time 31.2 SEC (24.5-34.5); Prothrombin Time 21.7 sec (9.3-11.8)
--- NOTE | 2024-11-05 06:55 | DVH ---
CHEST RADIOGRAPH Indication: re eval Technique: Single frontal view of the chest was obtained Comparison: XY CHEST XRAY 1 VIEW on DOS: 11/01/24 FINDINGS: Lines and Tubes: AICD/ pacemaker noted. Lungs: Patchy bilateral airspace disease. Pleura: No effusion. No pneumothorax. Cardiomediastinal contours: Cardiomegaly. Bones: No acute osseous abnormality. Status post median sternotomy. IMPRESSION: 1. Cardiomegaly. 2. Patchy bilateral airspace disease.
--- NOTE | 2024-11-05 08:46 | DVHPN2 ---
Progress Note - Dictate Date Seen: Nov 05, 2024 Has the PT tested + for MRSA If YES, has PT been informed?: No Medical Necessity Reason Pt with a Central, PICC or Fol: Yes The following are medically ne: PICC Line, Cutler Catheter Reason for cutler catheter: Strict I&O vital signs Vital Sign Date Time Temp Pulse Resp B/P (MAP) Pulse Ox O2 Delivery O2 Flow Rate FiO2 11/05/24 08:00 Room Air* 0 21 11/05/24 05:00 98.2 55 19 127/62 (83) 95 98.2 Total Intake and Output 11/04/24 11/04/24 11/05/24 15:00 23:00 07:00 Intake Total 650 ml 204 ml 954 ml Balance 650 ml 204 ml 954 ml medications Current Medications Medications Dose Ordered Sig/Liliam Route Start Time Stop Time Status Last Admin Dose Admin Ondansetron HCl 4 mg Q4HP PRN IV 10/07/24 10:00 Nitroglycerin 0.4 mg Q5MINP PRN SL 10/07/24 10:00 Pantoprazole Sodium 40 mg DAILY IV 10/07/24 10:00 11/04/24 08:37 40 MG Acetaminophen 500 mg Q6HP PRN PO 10/08/24 22:30 10/19/24 03:18 500 MG Amino Acids 0 ml @ 0 mls/hr PER PHARMACY IV 10/15/24 18:45 Cancel Dextrose 50 ml UD IV 10/16/24 09:30 Cancel Polyethylene Glycol 17 gm DAILYPRN PRN GT 10/17/24 16:45 10/19/24 05:54 17 GM Hydrocortisone Sodium Succinate 50 mg Q6HR IV 10/19/24 18:00 11/05/24 05:23 50 MG Vancomycin HCl 0 ml @ 0 mls/hr UD IV 10/19/24 14:00 Cancel Apixaban 2.5 mg BID PO 10/25/24 10:00 Hold Metoclopramide HCl 5 mg BID IV 10/25/24 10:00 Hold 10/25/24 21:32 5 MG Sodium Chloride 10 ml QSHIFT@10,22 IV 10/26/24 22:00 11/04/24 22:22 10 ML Morphine Sulfate 2 mg Q4HPRN PRN IV 10/28/24 10:30 11/03/24 10:37 2 MG Metoprolol Tartrate 12.5 mg BID PO 10/28/24 22:00 10/30/24 09:24 12.5 MG Ertapenem 1 gm/ Sodium Chloride 50 ml @ 100 mls/hr DAILY IV 10/30/24 10:00 11/04/24 08:56 100 MLS/HR Metoprolol Tartrate 2.5 mg Q6HPRN PRN IV 10/31/24 09:15 Diagnostic Test (Pha) 1 strip Q6HR 11/01/24 18:00 11/05/24 05:23 1 STRIP Insulin Human Regular FOLLOW SLIDING SCALE Q6HR SC 11/01/24 18:00 11/05/24 05:42 4 UNITS Dextrose 50 ml UD IV 11/01/24 18:00 Amino Acids 0 ml @ 0 mls/hr PER PHARMACY IV 11/04/24 22:00 Amino Acid Protein 30 ml DAILY PO 11/04/24 10:00 Mexiletine HCl 150 mg TID PO 11/04/24 14:00 Dextrose 1,000 ml @ 50 mls/hr Q20H IV 11/04/24 12:45 11/04/24 18:26 50 MLS/HR Fat Emulsion Intravenous 50 ml/ Potassium Acetate 60 meq/Potassium Phosphate 44 meq/ Calcium Gluconate 2.3 meq/Magnesium Sulfate 4 meq/ Multivitamins 10 ml/Chromium/ Copper/Manganese/ Zinc 1 ml/Amino Acids/Dextrose/ Purified Water 1,356.9462 ml @ 56 mls/hr [id number] IV 11/04/24 22:00 11/05/24 21:59 11/04/24 22:22 56 MLS/HR laboratory and microbiology Laboratory Tests 11/05/24 05:16 Test 11/05/24 05:16 Range/Units Serum Glucose 186 H 74-106 mg/dL Assessment/Plan In Tele. Failed swallowing evaluation. Alert and oriented to self only. Eliquis is still pending to start (INR is still above 2). Still on TPN Patient is a 54-year-old female who was brought to the hospital for witnessed syncope. She is intubated and is being managed in ICU. Information was obtained by reviewing the chart and communicating with patient's son (over the phone). Family recognized witnessed syncope and started CPR and called EMS. Reportedly, EMS found the patient in ventricular fibrillation and shocked the patient and brought the patient to the hospital. Patient was intubated in emergency room and transferred to ICU. Patient was on amiodarone drip. Later the patient had ventricular tachycardia (Systane). High sensitive troponin had been minimally/flatly elevated. Presentation was not in favor of acute coronary syndrome. Cardiology is involved for cardiac aspects of care. NAD Does not talk. Alert and oriented to self only. No JVD. Mucosa pale. No carotid bruit. Scattered rhonchi in the lungs is heard. Cardiac: Regular, no thrill. Systolic murmur 2/6 in apex is heard. Abdomen is soft. No edema in extremities. Past medical history as per son: Congenital heart disease, status post bypass WBC: 14.5 - 11.9 - 18.8 - 20.0 - 21.2 - 14.3 - 10.3 - 8.9 - 9.2 - 11.1 - 12.1 - 10.8 - 12.0 - 9.9 - 15.4 - 14.8 - 12.1 - 10.5 - 5.8 - 5.3 - 4.2 - 5.8 - 4.1 - 7.0 - 9.3 - 8.3 - 11.5 - 8.4 - 8.4 - 5.4 - 5.7 Hemoglobin: 10.1 - 9.6 - 9.2 - 8.8 - 8.7 - 8.0 - 8.3 - 8.5 - 7.8 - 10.2 - 10.7 - 9.9 - 9.7 - 9.3 - 9.3 - 8.6 - 8.1 - 7.4 - 7.5 - 7.4 - 7.5 - 7.2 - 7.7 - 7.0 - (post PRBC transfusion) 10.4 - 10 - 9.5 - 10.0 - 9.2 - 9.8 -9.6 - 9.7 Creatinine: 0.95 - 0.93 - 0.87 - 0.83 - 0.83 - 0.76 - 0.68 - 0.72 - 0.79 - 0.76 - 0.80 - 0.84 - 0.61 - 0.65 - 0.74 - 0.64 - 0.73 - 0.82 - 0.88 - 1.03 - 0.99 - 0.85 - 0.87 - 0.79 - 1.12 - 1.15 - 1.04 - 0.96 - 0.94 - 0.93 - 0.78 - 0.71 - 0.68 Potassium: 3.4 - 4.0 - 4.6 - 3.5 - 3.3 - 4.1 - 3.7 - 3.2 - 3.7 - 4.0 - 3.2 - 3.4 - 3.9 - 4.2 - 3.3 - 3.8 - 3.6 - 3.4 - 4.2 - 3.8 - 4.5 - 4.1 - 3.5 - 4.2 - 3.3 - 2.6 - 3.5 - 3.8 - 2.4 - 2.9 - 4.6 - 2.8 - 4.8 - 4.9 - 3.4 - 3.1 - 3.7 - 4.4 - 3.7 - 3.7 - 3.1 - 3.0 - 3.8 Magnesium: 2.0 - 1.6 - 2.0 - 3.0 - 1.5 - 1.9 - 2.1 - 1.8 - 2.0 - 1.9 - 1.9 - 2.6 - 2.0 - 1.8 - 1.6 - 2.0 - 2.2 - 1.9 - 2.3 - 2.2 - 2.2 - 2.1 - 2.1 - 1.9 2.7 - 2.6 - 2.3 - 2.4 - 2.5 - 2.3 - 2.5 - 2.3 - 2.3 Troponin (high sensitive): 141 - 138 - 117 BNP: 457.16 - 1073.91 AST/ALT: 32/11 - 19/13 - 538/168 - 293/152 - 131/130 - 78/94 - 68/74 - 48/57 - 27/38 - 15/23 - 20/18 - 23/17 - 29/16 - 27/13 - 34/17 - 73/49 - 41/43 - 30/47 - 30/42 - 29/42 - 17/27 - 160/87 - 900/478 - 986/571 - 382/436 - 110/244 - 42/170 - 22/113 - 16/77 Digoxin level: 2.83 - 1.25 - 0.98 UDS: non-revealing Chest x-ray revealed: Lines and Tubes: Endotracheal tube tip projects approximately 1.4 cm above the level of the tyler. Enteric catheter courses below the lateral of the diaphragm and terminates beyond the inferior margin of the image. Right internal jugular central venous catheter terminates within the distal superior vena cava. Lungs: Moderate diffuse increased prominence of the pulmonary vasculature without evidence of focal consolidation. Pleura: No effusion. No pneumothorax. Cardiomediastinal contours: Cardiomegaly. Bones: Unremarkable IMPRESSION: 1. Cardiomegaly and diffuse increased prominence of the pulmonary vasculature. 2. Lines and tubes as above. Repeat chest x-ray revealed: IMPRESSION: 1. Endotracheal tube tip 1.6 cm above the tyler; consider 2 cm retraction 2. Mild pulmonary vascular congestion. Moderate cardiomegaly. Repeat chest xry revealed: IMPRESSION: Endotracheal tube tip 1.6 cm above the tyler; consider 2 cm retraction Mild pulmonary vascular congestion. Moderate cardiomegaly. Repeat chest xry revealed: IMPRESSION: 1. Stable cardiomegaly, small left pleural effusion and mild diffuse increased prominence of the pulmonary vasculature. 2. Repositioned endotracheal tube as above. Remaining lines and tubes unchanged. Repeat chest xry revealed: IMPRESSION: 1. Cardiomegaly, stable diffuse increased prominence of the pulmonary vasculature and small bilateral pleural effusions. 2. Slight interval advancement of endotracheal tube as above. Remaining lines and tubes unchanged. Repeat chest xry revealed: IMPRESSION: 1. Slight interval decrease in diffuse increased prominence of the pulmonary vasculature. 2. Stable cardiomegaly and small left pleural effusion. 3. Lines and tubes unchanged. Repeat chest xry revealed: IMPRESSION: 1. Cardiomegaly and small left pleural effusion. 2. Lines and tubes unchanged. Repeat chest xry revealed: IMPRESSION: Stable lines and tubes. Similar lung aeration. Repeat chest xry revealed: IMPRESSION: Cardiomegaly and small left pleural effusion. Lines and tubes unchanged. Repeat chest xry revealed: IMPRESSION: Placement of a cardiac pacer, no pneumothorax is seen. Stable lines and tubes. Repeat chest xry revealed: IMPRESSION: 1. Worsening mixed opacities in the right lower lung. No other significant change from the previous study. Stable support devices. Repeat chest xry revealed: Heart is prominent in size with postsurgical changes, median sternotomy wires, and a single lead left cardiac defibrillator. Support lines and tubes appear unchanged in satisfactory in position. No sizable effusion or pneumothorax. Mild pulmonary vascular congestion. No significant interval change. Repeat chest xry revealed: IMPRESSION: 1. No significant change from the previous study. Stable support devices. Similar findings of heart failure including left pleural effusion. Repeat chest xry revealed: IMPRESSION: 1. No significant change from the previous study. Stable support devices. Similar findings of heart failure including trace left pleural effusion. Repeat chest xry revealed: Lines and Tubes: Unchanged. Left anterior chest wall cardiac pacing device. Lungs: Clear Pleura: No effusion. No pneumothorax. Cardiomediastinal contours: Cardiomegaly. Bones: Unremarkable IMPRESSION: 1. Cardiomegaly. 2. Lines and tubes unchanged. Repeat chest xry revealed: IMPRESSION: Lines and tubes in satisfactory position. No significant interval change. Repeat chest xry revealed: Lines and Tubes: ET tube and NG tube removed. Lungs: Congestion Pleura: No effusion. No pneumothorax. Cardiomediastinal contours: Cardiomegaly Bones: Unremarkable IMPRESSION: 1. Cardiomegaly with CHF. Repeat chest xry revealed: IMPRESSION: 1. Cardiomegaly. 2. Patchy bilateral airspace disease. Liver Ultrasound revealed: Hepatic steatosis. Trace right pleural effusion. Trace ascites Gallstones Bladder ultrasound revealed: IMPRESSION: 1. Cutler catheter in the bladder in the bladder is decompressed. Repeat Bladder Ultrasound revealed: Urinary bladder is unremarkable with prevoid volume of 29 mL. Urinary bladder wall measures 1.5 mm. Cutler catheter is noted. KUB revealed: IMPRESSION: Nonobstructive bowel gas pattern. Nasogastric tube tip in the stomach. Large stool burden. Repeat KUB revealed: Right lower extremity PICC line with tip projecting over the expected region of the intrahepatic IVC. Nasogastric tube projecting towards the distal stomach. Nonspecific bowel gas pattern. Cardiomegaly and left basilar airspace opacities, incompletely characterized. Atherosclerotic calcification disease. Left upper ext arterial duplex: IMPRESSION: No hemodynamically significant stenosis based on peak systolic velocity criteria. Left lower ext arterial duplex: IMPRESSION: There is no evidence for peripheral vascular insufficiency in the left lower extremity. No significant focal stenosis is identified. Liver Ultrasound revealed: Hepatic steatosis. Hepatomegaly. Cholelithiasis. CT of the head revealed: IMPRESSION: No acute intracranial abnormality. Repeat CT of head revealed: IMPRESSION: No acute intracranial abnormality. Repeat CT of Head revealed: IMPRESSION: No acute intracranial abnormality. Echocardiogram reported: lvef 15-20% dilated LV severe global dysfunction mild RV dysfunction biatrial enlargement mild moderate MAC, moderate mitral regurg mild to moderate aortic regug (images of echo reviewed and questioned presence of mitral ring and also some component (moderate of Mitral stenosis) EKG revealed sinus rhythm Telemetry revealed occasions of atrial fibrillation. There was occasional sustained ventricular tachycardia. EMS tele monitor revealed ventricular fibrillation for which the patient was shocked. Has remained sinus rhythm. Later with A-fib with MVR LHC revealed: Patent RICHMOND to LAD; Patent SVG to obtuse marginal; LVEF of 20% with increased EDP; Proximal disease in LAD/LCX RICHIE was performed: Consistent with severely reduced LVEF. Consistent with previously implanted Mitral ring, Up to moderate Mitral stenosis/Mitral Regurgitation and also Moderate Aortic insufficiency. Patient is a 54-year-old female who presented with witnessed syncope. She was found to have ventricular fibrillation for which was shocked. Later had repeated episode of sustained ventricular tachycardia. Patient has been kept in ICU. Does have baseline history of coronary artery disease for which has had bypass surgery. Left heart catheterization was performed which revealed patent RICHMOND and patent SVG. ACS is not considered at this point. It is of note that the patient's echocardiogram reveals significantly use systolic function. Valvular heart disease is considered. Findings are in favor of previously implanted mitral ring. By reviewing the echo images, component of up to moderate mitral stenosis could not be ruled out. LHC was performed that ruled out any active specific ischemia as an etiology for presentation. Is off Amiodarone for abnormal LFT. Being followed by Nephrology / Pulmonary / Neurology / GI ID. Tele has remained sinus rhythm. Had episode of a-fib with RVR. Was loaded with Digoxin. Dig level was performed at wrong timing (only 5 hours after the last Dig given). Dig toxicity is not considered. Patient is back to normal sinus rhythm. Has good kidney function. Repeat Dig level is acceptable level. s/p ICD implantation by EP. Intubated, later extubated. Syncope V-fib s/p shock Sustained V-tach Paroxysmal A-fib VHD, s/p Mitral ring Systolic heart failure Abnormal LFT, at a point resolved, later appeared again s/p ICD (Biotronik) implantation by EP (Dr Armstrong) s/p PRBC transfusion for significant anemia Hepatic Steatosis Gallstones Cardiac suggestion for management: Manage in Tele Follow up electrolytes and kidney function test and correct abnormalities Full anticoagulation (a-fib with high CHADS-Vasc score). s/p ICD implantation. Awaiting INR below 2.0 (was on warfarin for a while) to start Eliquis Off Amio drip (worsened LFT) On Mexiletine If need for pressure support: use Phenyl Ephrine / vasopressin, keep MAP above 65 (for now off pressure support and tolerating) On Metoprolol to decrease risk of Vtach (as patient has ICD with bradycardia protection: may continue metoprolol in case of bradycardia, but hold: if hypotensive) May consider/add Esmolol for PVC/Vtach (if needed) Does not talk. Alert and oriented to self only. As she has not passed swallowing evaluation: IV Metoprolol if needed (HR above 100) s/p ICD (Biotronik) implantation by EP Off warfarin: Eliquis: 2.5 mg BID (only after INR is below 2.0) s/p PRBC transfusion for anemia Failed swallowing evaluation for now Pulmonary Follow up GI follow up for repeated failed swallowing evaluation Provide previous medical records from reaching out to previous hospitals in [facility]... Further evaluation and management depends on the above and clinical course. A total of 55 minutes was spent reviewing the patient record, examining the patient, making a diagnostic and therapeutic plan, discussing this plan with medical personnel, following up on diagnostic studies and following the patient for clinical stability excluding any and all procedures. At least 50% of this time was spent in direct, [id number] contact. Thank you for allowing me to participate in this patient's care. Further recommendations will depend on patient's clinical course. Please do not hesitate to contact me if you have any questions or concerns. This medical document was created using electronic medical record system with [employer] computerized dictation system. Although this document has been carefully reviewed, there may still be some phonetic and typographical errors. These areas are purely typographical due to the imperfection of the software programs, and do not reflect any compromise in the patient's medical care. Dietary Evaluation Review Comments: 1) TF Jevity 1.2Cal @ 55 ml/hr. x 24hr along with Pro-stat 1 pk daily. Start @ 20ml/hr, increase 10ml/hr Q4H until goal is reached. TF @ goal volume provides 1684 kcal (100% energy needs), 88 gm protein (100% protein needs), 1065 ml free water. 2) Water flush 100ml Q4H if allowed, adjust PRN 3) Advance to cardiac diet as medically feasible 4) Monitor NPO status, lab values, wt trend, I/O Expected Outcomes/Goals: To meet >75% estimated needs within 7 days Lab values to improve Fu 2-3 days Plan discussed with: Other (nurse) CORDELL VERA MD Nov 05, 2024 08:46
--- NOTE | 2024-11-05 14:10 | CODING ---
Date of Service: Oct 29, 2024 Billing Provider: KENNY FROST MD Common Visit Codes: 33305-[id number] INP/OBS CARE (LOW) KENNY RFOST MD Nov 05, 2024 14:10
--- NOTE | 2024-11-05 14:19 | DVHPN2 ---
Progress Note - Dictate Date Seen: Nov 05, 2024 Has the PT tested + for MRSA If YES, has PT been informed?: No Medical Necessity Reason Pt with a Central, PICC or Fol: Yes The following are medically ne: PICC Line, Cutler Catheter Reason for cutler catheter: Strict I&O vital signs Vital Sign Date Time Temp Pulse Resp B/P (MAP) Pulse Ox O2 Delivery O2 Flow Rate FiO2 11/05/24 12:48 97.6 56 20 154/74 (100) 97 97.6 11/05/24 08:00 Room Air* 0 21 Total Intake and Output 11/04/24 11/04/24 11/05/24 15:00 23:00 07:00 Intake Total 650 ml 204 ml 954 ml Balance 650 ml 204 ml 954 ml medications Current Medications Medications Dose Ordered Sig/Liliam Route Start Time Stop Time Status Last Admin Dose Admin Ondansetron HCl 4 mg Q4HP PRN IV 10/07/24 10:00 Nitroglycerin 0.4 mg Q5MINP PRN SL 10/07/24 10:00 Pantoprazole Sodium 40 mg DAILY IV 10/07/24 10:00 11/05/24 08:36 40 MG Acetaminophen 500 mg Q6HP PRN PO 10/08/24 22:30 10/19/24 03:18 500 MG Amino Acids 0 ml @ 0 mls/hr PER PHARMACY IV 10/15/24 18:45 Cancel Dextrose 50 ml UD IV 10/16/24 09:30 Cancel Polyethylene Glycol 17 gm DAILYPRN PRN GT 10/17/24 16:45 10/19/24 05:54 17 GM Hydrocortisone Sodium Succinate 50 mg Q6HR IV 10/19/24 18:00 11/05/24 11:41 50 MG Vancomycin HCl 0 ml @ 0 mls/hr UD IV 10/19/24 14:00 Cancel Apixaban 2.5 mg BID PO 10/25/24 10:00 Hold Metoclopramide HCl 5 mg BID IV 10/25/24 10:00 Hold 10/25/24 21:32 5 MG Sodium Chloride 10 ml QSHIFT@10,22 IV 10/26/24 22:00 11/05/24 08:53 10 ML Morphine Sulfate 2 mg Q4HPRN PRN IV 10/28/24 10:30 11/03/24 10:37 2 MG Metoprolol Tartrate 12.5 mg BID PO 10/28/24 22:00 10/30/24 09:24 12.5 MG Ertapenem 1 gm/ Sodium Chloride 50 ml @ 100 mls/hr DAILY IV 10/30/24 10:00 11/05/24 08:48 100 MLS/HR Metoprolol Tartrate 2.5 mg Q6HPRN PRN IV 10/31/24 09:15 Diagnostic Test (Pha) 1 strip Q6HR 11/01/24 18:00 11/05/24 11:26 1 STRIP Insulin Human Regular FOLLOW SLIDING SCALE Q6HR SC 11/01/24 18:00 11/05/24 11:36 2 UNITS Dextrose 50 ml UD IV 11/01/24 18:00 Amino Acids 0 ml @ 0 mls/hr PER PHARMACY IV 11/04/24 22:00 Amino Acid Protein 30 ml DAILY PO 11/04/24 10:00 Mexiletine HCl 150 mg TID PO 11/04/24 14:00 Dextrose 1,000 ml @ 50 mls/hr Q20H IV 11/04/24 12:45 11/04/24 18:26 50 MLS/HR Fat Emulsion Intravenous 50 ml/ Potassium Acetate 60 meq/Potassium Phosphate 44 meq/ Calcium Gluconate 2.3 meq/Magnesium Sulfate 4 meq/ Multivitamins 10 ml/Chromium/ Copper/Manganese/ Zinc 1 ml/Amino Acids/Dextrose/ Purified Water 1,356.9462 ml @ 56 mls/hr [id number] IV 11/04/24 22:00 11/05/24 21:59 11/04/24 22:22 56 MLS/HR Fat Emulsion Intravenous 100 ml/Potassium Acetate 80 meq/ Potassium Phosphate 22 meq/ Calcium Gluconate 2.3 meq/Magnesium Sulfate 4 meq/ Multivitamins 10 ml/Chromium/ Copper/Manganese/ Zinc 1 ml/Amino Acids/Dextrose/ Purified Water 1,411.9462 ml @ 59 mls/hr [id number] IV 11/05/24 22:00 11/06/24 21:59 objective General Appearance: no distress HEENT: EOMI, PERRLA, normal external inspect of ears, no icterus, no nasal drainage Neck: no carotid bruit, no jugular venous distention (JVD), no lymphadenopathy Chest: normal thorax Respiratory: Intubated, clear to auscultation, normal air movement Cardiovascular: regular rate and rhythm, no diastolic murmur, no jugular venous distention (JVD), no rub, no systolic murmur Abdominal: soft, no hepatomegaly, no mass, no splenomegaly, no tenderness Genitourinary: grossly normal external Musculoskeletal: no joint tenderness, no swelling Extremities: normal pulses, no calf tenderness, no clubbing, no cyanosis, no edema Skin: no bruising, no jaundice, no rash Neurological: No focal deficit laboratory and microbiology Laboratory Tests 11/05/24 05:16 Test 11/05/24 05:16 Range/Units Serum Glucose 186 H 74-106 mg/dL Problem List Cardiac Arrest with Ventricular Fibrillation Assessment: Patient experienced cardiac arrest with ventricular fibrillation on 10/07/24, witnessed by family members who initiated CPR. EMS found the patient in ventricular fibrillation and administered shock therapy. Rhythm strip analysis confirmed ventricular fibrillation. Patient required intubation and sedation upon ED arrival. Currently admitted to ICU for close observation. Cardiology has been consulted and plans for AICD placement, likely on Tuesday. Infectious disease clearance has been obtained for the AICD procedure, addressing initial concerns of leukocytosis which is now improving. Status post-cardiac arrest. Plan: - Continue ICU monitoring - Proceed with AICD placement as planned (likely Tuesday), cleared by infectious disease. - Maintain intubation and sedation until AICD placement - Continue Heparin drip for paroxysmal atrial fibrillation - Continue Mexitil - DC amiodarone due to transaminitis - added esmolol drip per Cardiology for AFib and added push doses of digoxin Coronary Artery Disease Assessment: Patient with history of 2-vessel CABG (Coronary Artery Bypass Grafting). Surgical intervention previously performed to address significant coronary artery stenosis. Plan: - Continue medical management - Follow up with cardiology for ongoing coronary artery disease management Acute and Chronic Systolic Heart Failure Assessment: Patient has acute and chronic systolic heart failure with severely reduced left ventricular function. Ejection fraction is estimated at 15-20%. RICHIE findings are consistent with severely reduced left ventricular ejection fraction, previously implanted mitral ring, up to moderate mitral stenosis and regurgitation, and moderate aortic insufficiency. Plan: - Continue cardiology consultation - continue IV diuretics (IV Lasix) - Monitor renal function Acute Hypoxic Respiratory Failure Assessment: Patient is currently intubated due to acute hypoxic respiratory failure. Dr. Downey from pulmonology is managing this aspect of care. Plan: - Maintain current intubation as per pulmonology recommendation - Proceed with CPAP trials when deemed appropriate by pulmonology Transaminitis Assessment: Patient has elevated liver function tests, likely secondary to amiodarone use. Cardiology has discontinued amiodarone in response. Plan: - Monitor liver function tests - Amiodarone discontinued as per cardiology Enterobacter PNA Assessment: Sputum culture positive for Enterobacter. Plan: - Continue treatment with Eratapenem to complete 10 days regimen -Infectious disease consult Hemodynamic Support Assessment: Patient requires vasopressor support for hemodynamic stability. Plan: - Continue vasopressin - Continue neosynephrine Paroxysmal a fib -DC amiodarone -continue with heparin gtt Shock liver GI consult, trend liver enzymes, hepatitis panel was negative. Ultrasound of the liver had no acute findings. Assessment/Plan Subjective: Patient is A and O x 3. Objective: Patient is more awake and alert. Patient is talking more clearly. Patient was admitted s/p cardiac arrest. Patient was in SVT and ventricular tachycardia. Patient also had A fib with RVR and remains on antiarrhythmics. Patient had shocked liver. Liver enzymes are now within normal limits. Patient did fail her swallow eval x2. Plan: Continue TPN for nutritional support. Plan for possible repeat swallow eval tomorrow. Looking for subacute facility due to severely deconditioned state. Dietary Evaluation Review Comments: 1) TF Jevity 1.2Cal @ 55 ml/hr. x 24hr along with Pro-stat 1 pk daily. Start @ 20ml/hr, increase 10ml/hr Q4H until goal is reached. TF @ goal volume provides 1684 kcal (100% energy needs), 88 gm protein (100% protein needs), 1065 ml free water. 2) Water flush 100ml Q4H if allowed, adjust PRN 3) Advance to cardiac diet as medically feasible 4) Monitor NPO status, lab values, wt trend, I/O Expected Outcomes/Goals: To meet >75% estimated needs within 7 days Lab values to improve Fu 2-3 days Plan discussed with: Patient, Other SHEABRODIE SETHI Christy MANAGER ASSET Nov 05, 2024 14:19
--- NOTE | 2024-11-05 15:41 | CODING ---
Date of Service: Oct 29, 2024 Billing Provider: KENNY FROST MD Common Visit Codes: [id number] CARE 30-74 MIN KENNY FROST MD Nov 05, 2024 15:41
--- NOTE | 2024-11-05 15:41 | CODING ---
Date of Service: Oct 31, 2024 Billing Provider: KENNY FROST MD Common Visit Codes: [id number] CARE 30-74 MIN KENNY FROST MD Nov 05, 2024 15:41
--- NOTE | 2024-11-05 15:41 | CODING ---
Date of Service: Oct 30, 2024 Billing Provider: KENNY FROST MD Common Visit Codes: [id number] CARE 30-74 MIN KENNY FROST MD Nov 05, 2024 15:41
--- NOTE | 2024-11-05 15:47 | DVHPN2 ---
Progress Note Date Seen: Nov 05, 2024 Resident Creating Document: ETHAN SWAN RESIDENT Has the PT tested + for MRSA If YES, has PT been informed?: No Medical Necessity Reason Pt with a Central, PICC or Fol: Yes The following are medically ne: PICC Line, Cutler Catheter Reason for cutler catheter: Strict I&O Subjective Review of Systems Patient seen and examined at bedside Failed swallow evaluation Remains on TPN Progressing with PT, remains nonverbal. Objective vital signs Vital Sign Date Time Temp Pulse Resp B/P (MAP) Pulse Ox O2 Delivery O2 Flow Rate FiO2 11/05/24 12:48 97.6 56 20 154/74 (100) 97 97.6 11/05/24 08:00 Room Air* 0 21 Total Intake and Output 11/04/24 11/04/24 11/05/24 15:00 23:00 07:00 Intake Total 650 ml 204 ml 954 ml Balance 650 ml 204 ml 954 ml medications Current Medications Medications Dose Ordered Sig/Liliam Route Start Time Stop Time Status Last Admin Dose Admin Ondansetron HCl 4 mg Q4HP PRN IV 10/07/24 10:00 Nitroglycerin 0.4 mg Q5MINP PRN SL 10/07/24 10:00 Pantoprazole Sodium 40 mg DAILY IV 10/07/24 10:00 11/05/24 08:36 40 MG Acetaminophen 500 mg Q6HP PRN PO 10/08/24 22:30 10/19/24 03:18 500 MG Amino Acids 0 ml @ 0 mls/hr PER PHARMACY IV 10/15/24 18:45 Cancel Dextrose 50 ml UD IV 10/16/24 09:30 Cancel Polyethylene Glycol 17 gm DAILYPRN PRN GT 10/17/24 16:45 10/19/24 05:54 17 GM Hydrocortisone Sodium Succinate 50 mg Q6HR IV 10/19/24 18:00 11/05/24 11:41 50 MG Vancomycin HCl 0 ml @ 0 mls/hr UD IV 10/19/24 14:00 Cancel Apixaban 2.5 mg BID PO 10/25/24 10:00 Hold Metoclopramide HCl 5 mg BID IV 10/25/24 10:00 Hold 10/25/24 21:32 5 MG Sodium Chloride 10 ml QSHIFT@10,22 IV 10/26/24 22:00 11/05/24 08:53 10 ML Morphine Sulfate 2 mg Q4HPRN PRN IV 10/28/24 10:30 11/03/24 10:37 2 MG Metoprolol Tartrate 12.5 mg BID PO 10/28/24 22:00 10/30/24 09:24 12.5 MG Ertapenem 1 gm/ Sodium Chloride 50 ml @ 100 mls/hr DAILY IV 10/30/24 10:00 11/05/24 08:48 100 MLS/HR Metoprolol Tartrate 2.5 mg Q6HPRN PRN IV 10/31/24 09:15 Diagnostic Test (Pha) 1 strip Q6HR 11/01/24 18:00 11/05/24 11:26 1 STRIP Insulin Human Regular FOLLOW SLIDING SCALE Q6HR SC 11/01/24 18:00 11/05/24 11:36 2 UNITS Dextrose 50 ml UD IV 11/01/24 18:00 Amino Acids 0 ml @ 0 mls/hr PER PHARMACY IV 11/04/24 22:00 Amino Acid Protein 30 ml DAILY PO 11/04/24 10:00 Mexiletine HCl 150 mg TID PO 11/04/24 14:00 Dextrose 1,000 ml @ 50 mls/hr Q20H IV 11/04/24 12:45 11/04/24 18:26 50 MLS/HR Fat Emulsion Intravenous 50 ml/ Potassium Acetate 60 meq/Potassium Phosphate 44 meq/ Calcium Gluconate 2.3 meq/Magnesium Sulfate 4 meq/ Multivitamins 10 ml/Chromium/ Copper/Manganese/ Zinc 1 ml/Amino Acids/Dextrose/ Purified Water 1,356.9462 ml @ 56 mls/hr [id number] IV 11/04/24 22:00 11/05/24 21:59 11/04/24 22:22 56 MLS/HR Fat Emulsion Intravenous 100 ml/Potassium Acetate 80 meq/ Potassium Phosphate 22 meq/ Calcium Gluconate 2.3 meq/Magnesium Sulfate 4 meq/ Multivitamins 10 ml/Chromium/ Copper/Manganese/ Zinc 1 ml/Amino Acids/Dextrose/ Purified Water 1,411.9462 ml @ 59 mls/hr [id number] IV 11/05/24 22:00 11/06/24 21:59 Examination General Appearance: Nonverbal Head Exam: Normal inspection. Constricted equal and reactive pupils Neck Exam: Normal inspection. Non-tender. Normal alignment Pulmonary/Respiratory: Chest non-tender. Trace crackles Abdominal Exam: Normal bowel sounds. Soft. Nontender Skin Exam: Normal inspection. Normal color. Warm. Dry laboratory and microbiology Laboratory Tests 11/05/24 05:16 Test 11/05/24 05:16 Range/Units Serum Glucose 186 H 74-106 mg/dL Microbiology Date/Time Source Procedure Growth Status 10/20/24 04:00 Sputum Gram Stain - Final Complete 10/20/24 04:00 Respiratory Culture - Final Enterobacter cloacae Yeast, not Ilda albicans Complete 10/20/24 01:03 Urine - Cutler Port Urine Culture - Final Yeast, not Ilda albicans Complete 10/19/24 13:02 Blood Blood Culture - Final NO GROWTH AFTER 5 DAYS OF INCUBATION. Complete 10/07/24 16:50 Nose MRSA Screen - Final Complete Labs and/or images reviewed: Labs reviewed by me, Image(s) reviewed by me Problem List/Assessment/Plan Problem List/Assessment/Plan coagulopathy with INR 2.22 Questionable acute cholecystitis Ventricular fibrillation S/p cardiopulmonary arrest with shock Heart failure with reduced ejection fraction 15-20% Metabolic versus hypoxic encephalopathy Acute hepatocellular injury likely shock liver Cholelithiasis without acute inflammation Nonalcoholic fatty liver disease with steatohepatitis Community-acquired pneumonia growing Enterobacter Plan: Consider repeating swallow evaluation We will evaluate for PEG tube placement once INR normalizes Liver function tests downtrending appropriately Keep PT/INR therapeutic Hemoglobin stable, transfuse if HB 7 or less Continue tube feedings as patient failed swallow eval Decreased metoclopramide to 5 mg IV b.i.d. JAIDEN positive, outpatient follow up with GI recommended for further workup Thank you so much for the opportunity to consult on your patient. GI team will follow the patient. In case of any questions or concerns please feel free to reach out. Plan discussed with Dr. Anglin Plan discussed with: Other (RN) Dietary Evaluation Review Comments: 1) TF Jevity 1.2Cal @ 55 ml/hr. x 24hr along with Pro-stat 1 pk daily. Start @ 20ml/hr, increase 10ml/hr Q4H until goal is reached. TF @ goal volume provides 1684 kcal (100% energy needs), 88 gm protein (100% protein needs), 1065 ml free water. 2) Water flush 100ml Q4H if allowed, adjust PRN 3) Advance to cardiac diet as medically feasible 4) Monitor NPO status, lab values, wt trend, I/O Expected Outcomes/Goals: To meet >75% estimated needs within 7 days Lab values to improve Fu 2-3 days ETHAN SWAN RESIDENT Nov 05, 2024 15:47
--- NOTE | 2024-11-05 17:28 | DVHPN2 ---
Progress Note - Dictate Date Seen: Nov 05, 2024 Has the PT tested + for MRSA If YES, has PT been informed?: No Medical Necessity Reason Pt with a Central, PICC or Fol: Yes The following are medically ne: PICC Line, Cutler Catheter Reason for cutler catheter: Strict I&O vital signs Vital Sign Date Time Temp Pulse Resp B/P (MAP) Pulse Ox O2 Delivery O2 Flow Rate FiO2 11/05/24 16:45 97.6 56 22 131/76 (94) 97 97.6 11/05/24 08:00 Room Air* 0 21 Total Intake and Output 11/04/24 11/04/24 11/05/24 15:00 23:00 07:00 Intake Total 650 ml 204 ml 954 ml Balance 650 ml 204 ml 954 ml medications Current Medications Medications Dose Ordered Sig/Liliam Route Start Time Stop Time Status Last Admin Dose Admin Ondansetron HCl 4 mg Q4HP PRN IV 10/07/24 10:00 Nitroglycerin 0.4 mg Q5MINP PRN SL 10/07/24 10:00 Pantoprazole Sodium 40 mg DAILY IV 10/07/24 10:00 11/05/24 08:36 40 MG Acetaminophen 500 mg Q6HP PRN PO 10/08/24 22:30 10/19/24 03:18 500 MG Amino Acids 0 ml @ 0 mls/hr PER PHARMACY IV 10/15/24 18:45 Cancel Dextrose 50 ml UD IV 10/16/24 09:30 Cancel Polyethylene Glycol 17 gm DAILYPRN PRN GT 10/17/24 16:45 10/19/24 05:54 17 GM Hydrocortisone Sodium Succinate 50 mg Q6HR IV 10/19/24 18:00 11/05/24 11:41 50 MG Vancomycin HCl 0 ml @ 0 mls/hr UD IV 10/19/24 14:00 Cancel Apixaban 2.5 mg BID PO 10/25/24 10:00 Hold Metoclopramide HCl 5 mg BID IV 10/25/24 10:00 Hold 10/25/24 21:32 5 MG Sodium Chloride 10 ml QSHIFT@10,22 IV 10/26/24 22:00 11/05/24 08:53 10 ML Morphine Sulfate 2 mg Q4HPRN PRN IV 10/28/24 10:30 11/03/24 10:37 2 MG Metoprolol Tartrate 12.5 mg BID PO 10/28/24 22:00 10/30/24 09:24 12.5 MG Ertapenem 1 gm/ Sodium Chloride 50 ml @ 100 mls/hr DAILY IV 10/30/24 10:00 11/05/24 08:48 100 MLS/HR Metoprolol Tartrate 2.5 mg Q6HPRN PRN IV 10/31/24 09:15 Diagnostic Test (Pha) 1 strip Q6HR 11/01/24 18:00 11/05/24 11:26 1 STRIP Insulin Human Regular FOLLOW SLIDING SCALE Q6HR SC 11/01/24 18:00 11/05/24 11:36 2 UNITS Dextrose 50 ml UD IV 11/01/24 18:00 Amino Acids 0 ml @ 0 mls/hr PER PHARMACY IV 11/04/24 22:00 Amino Acid Protein 30 ml DAILY PO 11/04/24 10:00 Mexiletine HCl 150 mg TID PO 11/04/24 14:00 Dextrose 1,000 ml @ 50 mls/hr Q20H IV 11/04/24 12:45 11/04/24 18:26 50 MLS/HR Fat Emulsion Intravenous 50 ml/ Potassium Acetate 60 meq/Potassium Phosphate 44 meq/ Calcium Gluconate 2.3 meq/Magnesium Sulfate 4 meq/ Multivitamins 10 ml/Chromium/ Copper/Manganese/ Zinc 1 ml/Amino Acids/Dextrose/ Purified Water 1,356.9462 ml @ 56 mls/hr [id number] IV 11/04/24 22:00 11/05/24 21:59 11/04/24 22:22 56 MLS/HR Fat Emulsion Intravenous 100 ml/Potassium Acetate 80 meq/ Potassium Phosphate 22 meq/ Calcium Gluconate 2.3 meq/Magnesium Sulfate 4 meq/ Multivitamins 10 ml/Chromium/ Copper/Manganese/ Zinc 1 ml/Amino Acids/Dextrose/ Purified Water 1,411.9462 ml @ 59 mls/hr [id number] IV 11/05/24 22:00 11/06/24 21:59 laboratory and microbiology Laboratory Tests 11/05/24 05:16 Test 11/05/24 05:16 Range/Units Serum Glucose 186 H 74-106 mg/dL Assessment/Plan impression s/p cardiac arrest VT CPR <5 min elevated troponin acute resp failure atelectases pt seen and examined events s/p extubation low oxygen requirements on room air no acute events s/p pacemaker management plan supplemental oxygen as needed titrate to maintain sats 90% or above incentive spirometry aspiration precautions cont abx monitor cx monitor labs renal function daily abg and CXR dvt proph/on aggressive physical therapy f/u cardiology Dietary Evaluation Review Comments: 1) TF Jevity 1.2Cal @ 55 ml/hr. x 24hr along with Pro-stat 1 pk daily. Start @ 20ml/hr, increase 10ml/hr Q4H until goal is reached. TF @ goal volume provides 1684 kcal (100% energy needs), 88 gm protein (100% protein needs), 1065 ml free water. 2) Water flush 100ml Q4H if allowed, adjust PRN 3) Advance to cardiac diet as medically feasible 4) Monitor NPO status, lab values, wt trend, I/O Expected Outcomes/Goals: To meet >75% estimated needs within 7 days Lab values to improve Fu 2-3 days Plan discussed with: Patient BELLO ROTHMAN MD Nov 05, 2024 17:28
--- NOTE | 2024-11-05 19:44 | DVHCONRES ---
Date Seen: Nov 05, 2024 Resident Creating Document: [facility] Referring Physician Dr. Colon. Reason for Consultation ''Consulted for Sepsis'' History of Present Illness Ms. Smith, a 54-year-old female with a history of paroxysmal atrial fibrillation, ventricular tachycardia, congenital heart disease, and multiple episodes of cardiac arrest was consulted for sepsis following a witnessed syncopal event. She had recently been discharged from [facility] in [place] with prescriptions for amiodarone, Lipitor, and Lasix, which she did not take. After traveling, she experienced another cardiac arrest requiring code blue intervention. EMS found her in ventricular fibrillation, successfully resuscitated her, and transported her to the hospital where she was intubated and admitted to the ICU. She underwent a left heart catheterization and transesophageal echocardiogram. Despite being on an amiodarone drip, she later developed ventricular tachycardia. Troponin levels were minimally elevated, and her presentation was not consistent with acute coronary syndrome. Cardiology is actively involved in her care. Microbiology: Blood culture, 10/09/2024: No growth Blood culture, 10/19/2024: UDS, 10/07/2024: Negative Urinalysis, 10/07/2024: Leukocyte esterase: Negative Echocardiogram, 10/07/2024: lvef 15-20% dilated LV severe global dysfunction mild RV dysfunction biatrial enlargement mild moderate MAC, moderate mitral regurg mild to moderate aortic regug RICHIE, 10/08/2024: 1. Left ventricle: Dilated LV was seen. LVEF was 25%. There was diffuse hypokinesis of left ventricle. 2. Right ventricle: RV was mildly dilated. 3. Left atrium: LA enlarged 4. Right atrium: RA was enlarged. 5. Mitral valve: Mitral was thickened with reduced opening. Moderate Mitral regurgitation was seen. Planinomentry of valve (TTE images also obtained) r evealed MVA of 2.1 cm. Mean pressure gradient (obtained from limited TTE images) was 5. Images are consistent with previously implanted Ring in Mitral position. Consistent with up to Moderate Mitral stenosis. . There was no vegetation 6. Left atrial appendage: No evidence of thrombus. 7. Aortic valve: Trileaflet valve. No stenosis. Up to moderate Aortic Insufficiency was seen. There was no vegetation 8. Pulmonic valve: Trivial pulmonic insufficiency. No significant stenosis. 9. Tricuspid valve: Mild tricuspid regurgitation. There was no vegetation 10. Interatrial septum: Negative color flow for right to left shunt was ob served. Bubble study was performed: negative for shunt 11. Pericardium: No significant effusion. 12. Thoracic aorta: No significant plaquing. Past Medical History paroxysmal atrial fibrillation, ventricular tachycardia, congenital heart disease, and multiple episodes of cardiac arrest Past Surgical History Left heart catheterization today and Transesophageal echocardiogram today Family History: Alcoholism Cardiovascular disease G8 MOTHER Allergies: Coded Allergies: NO KNOWN ALLERGIES (Unverified , 10/07/24) Current Medications Current Medications Medications (Trade) Dose Ordered Sig/Liliam Route PRN Reason Start Time Stop Time Status Last Admin Amino Acids 0 ml @ 0 mls/hr PER PHARMACY IV 11/04/24 22:00 Fat Emulsion Intravenous 50 ml/ Potassium Acetate 60 meq/Potassium Phosphate 44 meq/ Calcium Gluconate 2.3 meq/Magnesium Sulfate 4 meq/ Multivitamins 10 ml/Chromium/ Copper/Manganese/ Zinc 1 ml/Amino Acids/Dextrose/ Purified Water 1,356.9462 ml @ 56 mls/hr [id number] IV 11/04/24 22:00 11/05/24 21:59 11/04/24 22:22 Fat Emulsion Intravenous 100 ml/Potassium Acetate 80 meq/ Potassium Phosphate 22 meq/ Calcium Gluconate 2.3 meq/Magnesium Sulfate 4 meq/ Multivitamins 10 ml/Chromium/ Copper/Manganese/ Zinc 1 ml/Amino Acids/Dextrose/ Purified Water 1,411.9462 ml @ 59 mls/hr [id number] IV 11/05/24 22:00 11/06/24 21:59 Review of Systems Constitutional: No Weight Change, No Fever, No Chills, No Night Sweats, No F atigue, No Malaise ENT/Mouth: No Hearing Changes, No Ear Pain, No Nasal Congestion, No Sinus Pain, No Hoarseness, No sore throat, No Rhinorrhea, No Swallowing Difficulty Eyes: No Eye Pain, No Swelling, No Redness, No Foreign Body, No Discharge, No Vision Changes Cardiovascular: No Chest Pain, No SOB, No PND, No Dyspnea on Exertion, No Orthopnea, No Claudication, No Edema, No Palpitations Respiratory: No Cough, No Sputum, No Wheezing, No Smoke Exposure, No Dyspnea Gastrointestinal: No Nausea, No Vomiting, No Diarrhea, No Constipation, No Pain, No Heartburn, No Anorexia, No Dysphagia, No Hematochezia, No Melena, No Flatulence, No Jaundice Genitourinary: No Dysmenorrhea, No DUB, No Dyspareunia, No Dysuria, No Urinary Frequency, No Hematuria, No Urinary Incontinence, No Urgency, No Flank Pain, No Urinary Flow Changes, No Hesitancy Musculoskeletal: No Arthralgias, No Myalgias, No Joint Swelling, No Joint Stiffness, No Back Pain, No Neck Pain, No Injury History Skin: No Skin Lesions, No Pruritis, No Hair Changes, No Breast/Skin Changes, No Nipple Discharge Neuro: No Weakness, No Numbness, No Paresthesias, No Loss of Consciousness, No Syncope, No Dizziness, No Headache, No Coordination Changes, No Recent Falls Psych: No Anxiety/Panic, No Depression, No Insomnia, No Personality Changes, No Delusions, No Rumination, No SI/HI/AH/VH, No Social Issues, No Memory Changes, No Violence/Abuse Hx., No Eating Concerns Heme/Lymph: No Bruising, No Bleeding, No Transfusions History, No Lymphadenopathy Endocrine: No Polyuria, No Polydipsia, No Temperature Intolerance Vital Signs Vital Signs Date Time Temp Pulse Resp B/P (MAP) Pulse Ox O2 Delivery O2 Flow Rate FiO2 11/05/24 16:45 97.6 56 22 131/76 (94) 97 97.6 11/05/24 08:00 Room Air* 0 21 Physical Exam GENERAL APPEARANCE: Well developed, well nourished, alert and cooperative, and appears to be in no acute distress. HEAD: normocephalic. EYES: PERRL, EOMI. Fundi normal, vision is grossly intact. EARS: External auditory canals and tympanic membranes clear, hearing grossly intact. NOSE: No nasal discharge. THROAT: Oral cavity and pharynx normal. No inflammation, swelling, exudate, or lesions. Teeth and gingiva in good general condition. NECK: Neck supple, non-tender without lymphadenopathy, masses or thyromegaly. CARDIAC: Normal S1 and S2. No S3, S4 or murmurs. Rhythm is regular. There is no peripheral edema, cyanosis or pallor. Extremities are warm and well perfused. Capillary refill is less than 2 seconds. No carotid bruits. LUNGS: Clear to auscultation and percussion without rales, rhonchi, wheezing or diminished breath sounds. ABDOMEN: Positive bowel sounds. Soft, nondistended, nontender. No guarding or rebound. No masses. MUSKULOSKELETAL: Adequately aligned spine. ROM intact spine and extremities. No joint erythema or tenderness. Normal muscular development. Normal gait. BACK: Examination of the spine reveals normal gait and posture, no spinal deformity, symmetry of spinal muscles, without tenderness, decreased range of motion or muscular spasm. EXTREMITIES: No significant deformity or joint abnormality. No edema. Peripheral pulses intact. No varicosities. LOWER EXTREMITY: Examination of both feet reveals all toes to be normal in size and symmetry, normal range of motion, normal sensation with distal capillary filling of less than 2 seconds without tenderness, swelling, discoloration, nodules, weakness or deformity; examination of both ankles, knees, legs, and hips reveals normal range of motion, normal sensation without tenderness, swelling, discoloration, crepitus, weakness or deformity. NEUROLOGICAL: CN II-XII intact. Strength and sensation symmetric and intact throughout. Reflexes 2+ throughout. Cerebellar testing normal. SKIN: Skin normal color, texture and turgor with no lesions or eruptions. PSYCHIATRIC: The mental examination revealed the patient was oriented to person, place, and time. The patient was able to demonstrate good judgement and reason, without hallucinations, abnormal affect or abnormal behaviors during the examination. Patient is not suicidal. Labs/Diagnostic Data Labs Test 11/05/24 18:34 11/05/24 05:16 11/01/24 04:00 10/30/24 14:56 Range/Units POC Glucose 148 H 70-106 mg/dl White Blood Count 5.7 4.4-10.8 10^3/uL Red Blood Count 3.18 L 4.0-5.20 10^6/uL Hemoglobin 9.7 L 12.2-16.2 g/dL Hematocrit 30.0 L 36.0-46.0 % Mean Corpuscular Volume 94.2 80.0-100.0 fL Mean Corpuscular Hemoglobin 30.4 28.0-32.0 pg Mean Corpuscular Hemoglobin Concent 32.3 32.0-36.0 g/dL Red Cell Distribution Width 23.1 H 11.8-14.3 % Platelet Count 106 L 140-450 10^3/uL Mean Platelet Volume 11.3 H 6.9-10.8 fL Neutrophils (%) (Auto) 85.1 H 37.0-80.0 % Lymphocytes (%) (Auto) 9.8 L 10.0-50.0 % Monocytes (%) (Auto) 5.1 0.0-12.0 % Eosinophils (%) (Auto) 0.0 0.0-7.0 % Basophils (%) (Auto) 0.0 0.0-2.0 % Neutrophils # (Auto) 4.8 1.6-8.6 10 ^3/uL Lymphocytes # (Auto) 0.6 0.4-5.4 10 ^3/uL Monocytes # (Auto) 0.3 0-1.3 10 ^3/uL Eosinophils # (Auto) 0 0-0.8 10 ^3/uL Basophils # (Auto) 0 0-0.2 10 ^3/uL Nucleated Red Blood Cells 0.3 % Prothrombin Time 21.7 H 9.3-11.8 sec Prothrombin Time INR 2.22 H 0.9-1.15 Activated Partial Thromboplast Time 31.2 24.5-34.5 SEC Sodium Level 148 H 136-145 mmol/L Potassium Level 3.8 3.5-5.1 mmol/L Chloride Level 117 H 98-107 mmol/L Carbon Dioxide Level 18 L 20-31 mmol/L Anion Gap 13 5-15 Blood Urea Nitrogen 24 #H 9-23 mg/dL Creatinine 0.68 0.550-1.02 mg/dL Glomerular Filtration Rate Calc 103 >90 mL/min BUN/Creatinine Ratio 35.3 H 10.0-20.0 Serum Glucose 186 H 74-106 mg/dL Calcium Level 8.7 8.7-10.4 mg/dL Phosphorus Level 3.3 2.4-5.1 mg/dL Magnesium Level 2.3 1.6-2.6 mg/dL Total Bilirubin 0.8 0.2-1.0 mg/dL Aspartate Amino Transferase (AST) 15 13-40 U/L Alanine Aminotransferase (ALT) 59 H 7-40 U/L Alkaline Phosphatase 87 46-116 U/L Total Protein 5.5 L 5.7-8.2 g/dL Albumin 3.1 L 3.2-4.8 g/dL Prealbumin 14.6 10.0-40.0 md/dL Triglycerides Level 131 < 150 mg/dL Anti-Nuclear Antibody Screen Positive H Negative Test 10/30/24 10:34 10/30/24 08:42 10/30/24 03:05 10/29/24 08:23 Range/Units Blood Gas Specimen Type Arterial Blood Gas Sample Site Right radial Blood Gas Patient Temperature 37.0 Arterial Blood Date Drawn [id number] Arterial Blood pH 7.494 H 7.350-7.450 Arterial Blood Partial Pressure CO2 25.6 L 32.0-45.0 mmHg Arterial Blood Partial Pressure O2 137.1 H 83.0-108.0 mmHg Arterial Blood HCO3 19.2 L 21.0-28.0 mmol/L Arterial Blood Oxygen Saturation 98.1 H 94.0-98.0 % Arterial Blood Base Excess -2.9 L -2.0-3.0 mmol/L Arterial Blood Oxyhemoglobin 97.7 94.0-98.0 % Arterial Blood Carboxyhemoglobin 0.3 L 0.5-1.5 % Arterial Blood Methemoglobin 0.1 0.0-1.5 % Trung Test Yes Blood Gas Total Hemoglobin 10.40 L 12.0-16.0 g/dL Blood Gas Modality Vent - cpap FiO2 % 30.0 Blood Gas Pressure Support 8 Blood Gas PEEP or CPAP 5.0 Blood Gas Set Respiration Rate 18.0 Blood Gas Tidal Volume 450.0 Blood Gas Critical Value Read Back Yes Blood Gas Notified Whom veda Bautista md Blood Gas Notified Time [id number] Blood Gas Notified By luz marina Bertradn fbi special agent B-Type Natriuretic Peptide 1073.91 0-100 pg/mL Direct Bilirubin 0.6 H <0.3 mg/dL Test 10/28/24 08:41 10/28/24 03:30 10/25/24 02:38 10/24/24 03:43 Range/Units Blood Gas Spontaneous Rate 24 Platelet Estimate Adequate Anisocytosis (manual) Moderate Differential Total Cells Counted 100.0 100 Neutrophils % (Manual) 83 H 37.0-80.0 Band Neutrophils % (Manual) 0 Lymphocytes % (Manual) 15 10.0-50.0 Monocytes % (Manual) 2 0-12 Eosinophils % (Manual) 0 0-7 Basophils % (Manual) 0 0.0-2.0 Metamyelocytes % (manual) 0 Myelocytes % (Manual) 0 Promyelocytes % (Manual) 0 Blast Cells % (Manual) 0 Reactive Lymphocytes 0 Ferritin 698.0 H 10-291 ng/mL Test 10/21/24 13:10 10/19/24 14:52 10/17/24 02:45 10/16/24 02:40 Range/Units Vancomycin Level Trough 17.1 H 5-10 ug/mL Lactic Acid Level 2.9 *H 0.4-2.0 mmol/L Polychromasia Slight Digoxin Level 0.98 0.8-2 ng/mL Tear Drop Cells Few Test 10/15/24 03:09 10/11/24 03:23 10/09/24 22:25 10/07/24 22:13 Range/Units Poikilocytosis (manual) Slight Hemoglobin A 97.5 96.4-98.8 % Hemoglobin A2 2.5 1.8-3.2 % Hemoglobin F () 0.0 0.0-2.0 % Hemoglobin S 0.0 0.0 % Hemoglobin Electrophoresis Interp Comment . Serum Immunoglobulin G 9687 143-5739 mg/dL Immunoglobulin A 210 87-352 mg/dL Immunoglobulin M 186 26-217 mg/dL Serum Immunofixation Comment . Free [place] Light Chains, Quant 49.1 H 3.3-19.4 mg/L Free [place]/Lambda Light Chain Ratio 1.54 0.26-1.65 Hepatitis A IgM Antibody Negative Hepatitis B Surface Antigen Negative Negative Hepatitis B Core IgM Antibody Negative Negative Hepatitis C Antibody Negative Negative Urine Creatinine 31.20 30.0-125.0 mg/dL Urine Protein/Creatinine Ratio 0.72 Urine Sodium 79 40-220 mmol/L Urine Total Protein 22.5 H 1-14 mg/dL Blood Gas Spontaneous Tidal Volume 488 Test 10/07/24 14:09 10/07/24 10:56 10/07/24 06:17 Range/Units Troponin I High Sensitivity 117 *H </=34 ng/L Cholesterol Level 66 < 200 mg/dL LDL Cholesterol 31 < 100 mg/dL HDL Cholesterol 21 L 40-59 mg/dL Urine Color Yellow Yellow Urine Clarity Turbid H Clear Urine pH 6.0 5.0-9.0 Urine Specific [place] 1.033 1.001-1.035 Urine Protein 3+ H Negative Urine Ketones Trace Negative Urine Blood 1+ H Negative /uL Urine Nitrite Negative Negative Urine Bilirubin Negative Negative Urine Urobilinogen 3 H Negative mg/dL Urine Leukocyte Esterase Negative Negative /uL Urine Glucose 1+ H Normal mg/dL Urine Opiates Screen Neg NEGATIVE Urine Fentanyl Screen Neg NEGATIVE Urine Barbiturates Screen Neg NEGATIVE Urine Phencyclidine Screen Neg NEGATIVE Urine Amphetamines Screen Neg NEGATIVE Urine Benzodiazepines Screen Neg NEGATIVE Urine Cocaine Screen Neg NEGATIVE Urine Cannabinoids Screen Neg NEGATIVE Microbiology Date/Time Source Procedure Growth Status 10/20/24 04:00 Sputum Gram Stain - Final Complete 10/20/24 04:00 Respiratory Culture - Final Enterobacter cloacae Yeast, not Ilda albicans Complete 10/20/24 01:03 Urine - [place] Urine Culture - Final Yeast, not Ilda albicans Complete 10/19/24 13:02 Blood Blood Culture - Final NO GROWTH AFTER 5 DAYS OF INCUBATION. Complete 10/07/24 16:50 Nose MRSA Screen - Final Complete Assessment Assessment: # Shock liver, transaminitis which improved, rule out hepatitis # Possible atypical Pneumonia vs amiodarone toxicity, Community-acquired pneumonia growing Enterobacter # Sepsis, unspecified organism # Ventricular fibrillation # Cardiac arrest s/p ACLS and ROSC after 5 min. # Syncope V-fib s/p shock # Paroxysmal atrial fibrillation # Ventricular tachycardia # Congenital heart disease # Systolic heart failure s/p ICD (Biotronik) implantation by EP (Dr Armstrong) # s/p PRBC transfusion for significant anemia # Gallstones Questionable acute cholecystitis clinically ruled out by Surgical team. # Heart failure with reduced ejection fraction 15-20% # Metabolic versus hypoxic encephalopathy # acute resp failure on 2-3 l oxygen # b/l atelectasis Plan: #Rule out hepatitis #Invanz to finish today #Check for clinical signs of AHRF #Blood and sputum culture to check Discussed with Dr. Eaton. Thank you for the opportunity to consult on your patient. Infectious Disease will follow up Plan discussed with: Patient [facility] Nov 05, 2024 19:44
--- NOTE | 2024-11-05 19:55 | DVHINCON2 ---
Date of service: Nov 05, 2024 Referring Physician Reason for Consultation For PEG tube placement History of Present Illness This 53-year-old female with status post bypass graft as well as with a history of cardiac arrest at home CPR was initiated examination has been doing fairly patient has history of bypass surgery and heart problems in the past and as soon as atrial fibrillation patient also had some abnormal liver enzymes from possibly shocky liver. With cardiac arrest. Because of the with the present consultation is for a possible PEG tube placement. Past Medical History Congenital heart disease by coronary artery bypass graft atrial fibrillation Past Surgical History Coronary artery bypass graft as well as Family History: Alcoholism Cardiovascular disease G8 MOTHER Family History Noncontributory Social History Denies smoking but history of heavy drinking Allergies: Coded Allergies: NO KNOWN ALLERGIES (Unverified , 10/07/24) Current Medications Current Medications Medications (Trade) Dose Ordered Sig/Liliam Route PRN Reason Start Time Stop Time Status Last Admin Amino Acids 0 ml @ 0 mls/hr PER PHARMACY IV 11/04/24 22:00 Fat Emulsion Intravenous 50 ml/ Potassium Acetate 60 meq/Potassium Phosphate 44 meq/ Calcium Gluconate 2.3 meq/Magnesium Sulfate 4 meq/ Multivitamins 10 ml/Chromium/ Copper/Manganese/ Zinc 1 ml/Amino Acids/Dextrose/ Purified Water 1,356.9462 ml @ 56 mls/hr [id number] IV 11/04/24 22:00 11/05/24 21:59 11/04/24 22:22 Fat Emulsion Intravenous 100 ml/Potassium Acetate 80 meq/ Potassium Phosphate 22 meq/ Calcium Gluconate 2.3 meq/Magnesium Sulfate 4 meq/ Multivitamins 10 ml/Chromium/ Copper/Manganese/ Zinc 1 ml/Amino Acids/Dextrose/ Purified Water 1,411.9462 ml @ 59 mls/hr [id number] IV 11/05/24 22:00 11/06/24 21:59 Review of Systems Unable to get any details Vital Signs Vital Signs Date Time Temp Pulse Resp B/P (MAP) Pulse Ox O2 Delivery O2 Flow Rate FiO2 11/05/24 16:45 97.6 56 22 131/76 (94) 97 97.6 11/05/24 08:00 Room Air* 0 21 Physical Exam Moderately built and nourished No icterus Abdomen is soft nontender no masses bowel sounds normal Extremities no edema No signs of Obvious severe liver disease Labs/Diagnostic Data Labs Test 11/05/24 18:34 11/05/24 05:16 11/01/24 04:00 10/30/24 14:56 Range/Units POC Glucose 148 H 70-106 mg/dl White Blood Count 5.7 4.4-10.8 10^3/uL Red Blood Count 3.18 L 4.0-5.20 10^6/uL Hemoglobin 9.7 L 12.2-16.2 g/dL Hematocrit 30.0 L 36.0-46.0 % Mean Corpuscular Volume 94.2 80.0-100.0 fL Mean Corpuscular Hemoglobin 30.4 28.0-32.0 pg Mean Corpuscular Hemoglobin Concent 32.3 32.0-36.0 g/dL Red Cell Distribution Width 23.1 H 11.8-14.3 % Platelet Count 106 L 140-450 10^3/uL Mean Platelet Volume 11.3 H 6.9-10.8 fL Neutrophils (%) (Auto) 85.1 H 37.0-80.0 % Lymphocytes (%) (Auto) 9.8 L 10.0-50.0 % Monocytes (%) (Auto) 5.1 0.0-12.0 % Eosinophils (%) (Auto) 0.0 0.0-7.0 % Basophils (%) (Auto) 0.0 0.0-2.0 % Neutrophils # (Auto) 4.8 1.6-8.6 10 ^3/uL Lymphocytes # (Auto) 0.6 0.4-5.4 10 ^3/uL Monocytes # (Auto) 0.3 0-1.3 10 ^3/uL Eosinophils # (Auto) 0 0-0.8 10 ^3/uL Basophils # (Auto) 0 0-0.2 10 ^3/uL Nucleated Red Blood Cells 0.3 % Prothrombin Time 21.7 H 9.3-11.8 sec Prothrombin Time INR 2.22 H 0.9-1.15 Activated Partial Thromboplast Time 31.2 24.5-34.5 SEC Sodium Level 148 H 136-145 mmol/L Potassium Level 3.8 3.5-5.1 mmol/L Chloride Level 117 H 98-107 mmol/L Carbon Dioxide Level 18 L 20-31 mmol/L Anion Gap 13 5-15 Blood Urea Nitrogen 24 #H 9-23 mg/dL Creatinine 0.68 0.550-1.02 mg/dL Glomerular Filtration Rate Calc 103 >90 mL/min BUN/Creatinine Ratio 35.3 H 10.0-20.0 Serum Glucose 186 H 74-106 mg/dL Calcium Level 8.7 8.7-10.4 mg/dL Phosphorus Level 3.3 2.4-5.1 mg/dL Magnesium Level 2.3 1.6-2.6 mg/dL Total Bilirubin 0.8 0.2-1.0 mg/dL Aspartate Amino Transferase (AST) 15 13-40 U/L Alanine Aminotransferase (ALT) 59 H 7-40 U/L Alkaline Phosphatase 87 46-116 U/L Total Protein 5.5 L 5.7-8.2 g/dL Albumin 3.1 L 3.2-4.8 g/dL Prealbumin 14.6 10.0-40.0 md/dL Triglycerides Level 131 < 150 mg/dL Anti-Nuclear Antibody Screen Positive H Negative Test 10/30/24 10:34 10/30/24 08:42 10/30/24 03:05 10/29/24 08:23 Range/Units Blood Gas Specimen Type Arterial Blood Gas Sample Site Right radial Blood Gas Patient Temperature 37.0 Arterial Blood Date Drawn [id number] Arterial Blood pH 7.494 H 7.350-7.450 Arterial Blood Partial Pressure CO2 25.6 L 32.0-45.0 mmHg Arterial Blood Partial Pressure O2 137.1 H 83.0-108.0 mmHg Arterial Blood HCO3 19.2 L 21.0-28.0 mmol/L Arterial Blood Oxygen Saturation 98.1 H 94.0-98.0 % Arterial Blood Base Excess -2.9 L -2.0-3.0 mmol/L Arterial Blood Oxyhemoglobin 97.7 94.0-98.0 % Arterial Blood Carboxyhemoglobin 0.3 L 0.5-1.5 % Arterial Blood Methemoglobin 0.1 0.0-1.5 % Trung Test Yes Blood Gas Total Hemoglobin 10.40 L 12.0-16.0 g/dL Blood Gas Modality Vent - cpap FiO2 % 30.0 Blood Gas Pressure Support 8 Blood Gas PEEP or CPAP 5.0 Blood Gas Set Respiration Rate 18.0 Blood Gas Tidal Volume 450.0 Blood Gas Critical Value Read Back Yes Blood Gas Notified Whom veda Bautista md Blood Gas Notified Time [id number] Blood Gas Notified By luz marina Bertrand rrt B-Type Natriuretic Peptide 1073.91 0-100 pg/mL Direct Bilirubin 0.6 H <0.3 mg/dL Test 10/28/24 08:41 10/28/24 03:30 10/25/24 02:38 10/24/24 03:43 Range/Units Blood Gas Spontaneous Rate 24 Platelet Estimate Adequate Anisocytosis (manual) Moderate Differential Total Cells Counted 100.0 100 Neutrophils % (Manual) 83 H 37.0-80.0 Band Neutrophils % (Manual) 0 Lymphocytes % (Manual) 15 10.0-50.0 Monocytes % (Manual) 2 0-12 Eosinophils % (Manual) 0 0-7 Basophils % (Manual) 0 0.0-2.0 Metamyelocytes % (manual) 0 Myelocytes % (Manual) 0 Promyelocytes % (Manual) 0 Blast Cells % (Manual) 0 Reactive Lymphocytes 0 Ferritin 698.0 H 10-291 ng/mL Test 10/21/24 13:10 10/19/24 14:52 10/17/24 02:45 10/16/24 02:40 Range/Units Vancomycin Level Trough 17.1 H 5-10 ug/mL Lactic Acid Level 2.9 *H 0.4-2.0 mmol/L Polychromasia Slight Digoxin Level 0.98 0.8-2 ng/mL Tear Drop Cells Few Test 10/15/24 03:09 10/11/24 03:23 10/09/24 22:25 10/07/24 22:13 Range/Units Poikilocytosis (manual) Slight Hemoglobin A 97.5 96.4-98.8 % Hemoglobin A2 2.5 1.8-3.2 % Hemoglobin F () 0.0 0.0-2.0 % Hemoglobin S 0.0 0.0 % Hemoglobin Electrophoresis Interp Comment . Serum Immunoglobulin G 8741 644-2297 mg/dL Immunoglobulin A 210 87-352 mg/dL Immunoglobulin M 186 26-217 mg/dL Serum Immunofixation Comment . Free [place] Light Chains, Quant 49.1 H 3.3-19.4 mg/L Free [place]/Lambda Light Chain Ratio 1.54 0.26-1.65 Hepatitis A IgM Antibody Negative Hepatitis B Surface Antigen Negative Negative Hepatitis B Core IgM Antibody Negative Negative Hepatitis C Antibody Negative Negative Urine Creatinine 31.20 30.0-125.0 mg/dL Urine Protein/Creatinine Ratio 0.72 Urine Sodium 79 40-220 mmol/L Urine Total Protein 22.5 H 1-14 mg/dL Blood Gas Spontaneous Tidal Volume 488 Test 10/07/24 14:09 10/07/24 10:56 10/07/24 06:17 Range/Units Troponin I High Sensitivity 117 *H </=34 ng/L Cholesterol Level 66 < 200 mg/dL LDL Cholesterol 31 < 100 mg/dL HDL Cholesterol 21 L 40-59 mg/dL Urine Color Yellow Yellow Urine Clarity Turbid H Clear Urine pH 6.0 5.0-9.0 Urine Specific [place] 1.033 1.001-1.035 Urine Protein 3+ H Negative Urine Ketones Trace Negative Urine Blood 1+ H Negative /uL Urine Nitrite Negative Negative Urine Bilirubin Negative Negative Urine Urobilinogen 3 H Negative mg/dL Urine Leukocyte Esterase Negative Negative /uL Urine Glucose 1+ H Normal mg/dL Urine Opiates Screen Neg NEGATIVE Urine Fentanyl Screen Neg NEGATIVE Urine Barbiturates Screen Neg NEGATIVE Urine Phencyclidine Screen Neg NEGATIVE Urine Amphetamines Screen Neg NEGATIVE Urine Benzodiazepines Screen Neg NEGATIVE Urine Cocaine Screen Neg NEGATIVE Urine Cannabinoids Screen Neg NEGATIVE Microbiology Date/Time Source Procedure Growth Status 10/20/24 04:00 Sputum Gram Stain - Final Complete 10/20/24 04:00 Respiratory Culture - Final Enterobacter cloacae Yeast, not Ilda albicans Complete 10/20/24 01:03 Urine - [place] Urine Culture - Final Yeast, not Ilda albicans Complete 10/19/24 13:02 Blood Blood Culture - Final NO GROWTH AFTER 5 DAYS OF INCUBATION. Complete 10/07/24 16:50 Nose MRSA Screen - Final Complete Assessment 53-year-old with a history of witnessed cardiac arrest at home status post CPR for PEG tube placement patient has history of coronary artery bypass surgery in paroxysmal atrial fibrillation Clinical impression is status post cardiac arrest with ndeed for PEG tube placement Plan/Recommendation We will we will arrange for the GI side Dr. Anglin we will be back for and willing stricture about the consult and she will arrange for the PEG tube placement when possible for her after the consent was obtained Thank you Dr. Greer Plan discussed with: Patient VIKKI GREER MD Nov 05, 2024 19:55
[2024-11-05] MEDS ORDERED: TPN PER PHARMACY IV NR (22:00)
--- NOTE | 2024-11-05 23:46 | DVHPN2 ---
Progress Note - Dictate Date Seen: Nov 05, 2024 Has the PT tested + for MRSA If YES, has PT been informed?: No Medical Necessity Reason Pt with a Central, PICC or Fol: Yes The following are medically ne: PICC Line, Cutler Catheter Reason for cutler catheter: Strict I&O Subjective Ms. Smith is a 54 years old female who was brought to the [facility] on 10/07/2024 with a chief complaint of cardiopulmonary arrest/status post CPR. I have seen and examined the patient, she is awake, she is oriented to person, her voice is very weak, she failed swallow evaluation again Sitter: She needs assistance for reposition Blood culture, 10/09/2024: No growth Blood culture, 10/19/2024: UDS, 10/07/2024: Negative Urinalysis, 10/07/2024: Leukocyte esterase: Negative WBC/HB/PLT/MCV, 10/09/2024: 20/8.8/219/94.6, 10/10/2024: 21.2/8.7/232/92.2 PT/INR/PTT, 10/08/2024: 12.4/1.19/72.7, 10/09/2024: 13.1/1.26/68.9, 10/10/2024: 14.4/2/1.38/35.3 CMP, 10/08/2024: Unremarkable Troponin one high sensitivity, 10/07/2024: 141, 138, 117 TBI/AST/ALT/AP, 10/10/2024: 0.5/538/168/144, 10/11/2024: 0.6/293/199/152, 10/14/2024: 0.8/68/74/124 TG/HDL/LDL/HDL, 10/07/24: 71/66/31/21 EKG 10/10/2024: Atrial fibrillation EKG, 10/15/2024: Atrial fibrillation Echocardiogram, 10/07/2024: lvef 15-20% dilated LV severe global dysfunction mild RV dysfunction biatrial enlargement mild moderate MAC, moderate mitral regurg mild to moderate aortic regug RICHIE, 10/08/2024: 1. Left ventricle: Dilated LV was seen. LVEF was 25%. There was diffuse hypokinesis of left ventricle. 2. Right ventricle: RV was mildly dilated. 3. Left atrium: LA enlarged 4. Right atrium: RA was enlarged. 5. Mitral valve: Mitral was thickened with reduced opening. Moderate Mitral regurgitation was seen. Planinomentry of valve (TTE images also obtained) revealed MVA of 2.1 cm. Mean pressure gradient (obtained from limited TTE images) was 5. Images are consistent with previously implanted Ring in Mitral position. Consistent with up to Moderate Mitral stenosis. . There was no vegetation 6. Left atrial appendage: No evidence of thrombus. 7. Aortic valve: Trileaflet valve. No stenosis. Up to moderate Aortic Insufficiency was seen. There was no vegetation 8. Pulmonic valve: Trivial pulmonic insufficiency. No significant stenosis. 9. Tricuspid valve: Mild tricuspid regurgitation. There was no vegetation 10. Interatrial septum: Negative color flow for right to left shunt was observed. Bubble study was performed: negative for shunt 11. Pericardium: No significant effusion. 12. Thoracic aorta: No significant plaquing. Chest x-ray, 10/27/2024: 1. Cardiomegaly, stable diffuse increased prominence of the pulmonary vasculature and small bilateral pleural effusions. 2. Slight interval advancement of endotracheal tube as above. Remaining lines and tubes unchanged. CT head, 10/07/2024: No acute intracranial abnormality General: the patient is well developed and nourished. No acute distress. Intubated CT head, 10/07/2024: No acute intracranial abnormality. CT head, 10/11/2024: No acute intracranial abnormality CT head, 11/01/2024: As above, the other systems are negative vital signs Vital Sign Date Time Temp Pulse Resp B/P (MAP) Pulse Ox O2 Delivery O2 Flow Rate FiO2 11/05/24 20:00 55 11/05/24 16:45 97.6 22 131/76 (94) 97 97.6 11/05/24 08:00 Room Air* 0 21 Total Intake and Output 11/04/24 11/04/24 11/05/24 15:00 23:00 07:00 Intake Total 650 ml 204 ml 954 ml Balance 650 ml 204 ml 954 ml medications Current Medications Medications Dose Ordered Sig/Liliam Route Start Time Stop Time Status Last Admin Dose Admin Ondansetron HCl 4 mg Q4HP PRN IV 10/07/24 10:00 Nitroglycerin 0.4 mg Q5MINP PRN SL 10/07/24 10:00 Pantoprazole Sodium 40 mg DAILY IV 10/07/24 10:00 11/05/24 08:36 40 MG Acetaminophen 500 mg Q6HP PRN PO 10/08/24 22:30 10/19/24 03:18 500 MG Amino Acids 0 ml @ 0 mls/hr PER PHARMACY IV 10/15/24 18:45 Cancel Dextrose 50 ml UD IV 10/16/24 09:30 Cancel Polyethylene Glycol 17 gm DAILYPRN PRN GT 10/17/24 16:45 10/19/24 05:54 17 GM Hydrocortisone Sodium Succinate 50 mg Q6HR IV 10/19/24 18:00 11/05/24 18:26 50 MG Vancomycin HCl 0 ml @ 0 mls/hr UD IV 10/19/24 14:00 Cancel Apixaban 2.5 mg BID PO 10/25/24 10:00 Hold Metoclopramide HCl 5 mg BID IV 10/25/24 10:00 Hold 10/25/24 21:32 5 MG Sodium Chloride 10 ml QSHIFT@10,22 IV 10/26/24 22:00 11/05/24 22:00 10 ML Morphine Sulfate 2 mg Q4HPRN PRN IV 10/28/24 10:30 11/03/24 10:37 2 MG Metoprolol Tartrate 12.5 mg BID PO 10/28/24 22:00 10/30/24 09:24 12.5 MG Metoprolol Tartrate 2.5 mg Q6HPRN PRN IV 10/31/24 09:15 Diagnostic Test (Pha) 1 strip Q6HR 11/01/24 18:00 11/05/24 18:00 1 STRIP Insulin Human Regular FOLLOW SLIDING SCALE Q6HR SC 11/01/24 18:00 11/05/24 18:40 2 UNITS Dextrose 50 ml UD IV 11/01/24 18:00 Amino Acids 0 ml @ 0 mls/hr PER PHARMACY IV 11/04/24 22:00 Amino Acid Protein 30 ml DAILY PO 11/04/24 10:00 Mexiletine HCl 150 mg TID PO 11/04/24 14:00 Dextrose 1,000 ml @ 50 mls/hr Q20H IV 11/04/24 12:45 11/04/24 18:26 50 MLS/HR objective The patient is well-nourished and well-developed with no distress. The patient is intubated MENTAL STATUS: Subjective CRANIAL NERVES: Pupils are equal, round and reactive. EOMs full and conjugate. Facial sensation intact in all three divisions bilaterally. Mandibular strength intact. Facial muscles symmetrical and strength intact. SENSATION: Okay to pinprick and light touch MOTOR: Normal tone in the upper and lower extremity. Normal muscle bulk. No fasciculations. She move the arms and legs REFLEXES: Deep tendon reflexes are symmetrical. No pathological reflexes. CEREBELLAR/COORDINATION: Deferred GAIT/STATION: deferred. laboratory and microbiology Laboratory Tests 11/05/24 05:16 Test 11/05/24 05:16 Range/Units Serum Glucose 186 H 74-106 mg/dL Problem List Cardiopulmonary arrest Status post CPR Metabolic encephalopathy Hypoxic encephalopathy Congestive heart failure Leukocytosis/sepsis/septic shock Respiratory failure Elevated liver function tests AFib S/P pacemaker insertion on 10/17/2024 Assessment/Plan Monitoring Supportive treatment Telemetry Hold off Lipitor (elevated liver function tests), LDL (31) (home medications included Lipitor 40 mg daily) DVT prophylaxis GI prophylaxis Cardiology on case Pulmonology on case Nephrology on case Need more history This medical document was created using an electronic medical record system with [employer] dictation system. Although this document has been carefully reviewed, there may still be some phonetic and typographical errors. These areas are purely typographical due to imperfections of the software programs, and do not reflect any compromise in the patient's medical care. Prognosis poor Dietary Evaluation Review Comments: 1) TF Jevity 1.2Cal @ 55 ml/hr. x 24hr along with Pro-stat 1 pk daily. Start @ 20ml/hr, increase 10ml/hr Q4H until goal is reached. TF @ goal volume provides 1684 kcal (100% energy needs), 88 gm protein (100% protein needs), 1065 ml free water. 2) Water flush 100ml Q4H if allowed, adjust PRN 3) Advance to cardiac diet as medically feasible 4) Monitor NPO status, lab values, wt trend, I/O Expected Outcomes/Goals: To meet >75% estimated needs within 7 days Lab values to improve Fu 2-3 days Plan discussed with: CAROLINE Shaw MD Nov 05, 2024 23:46
[2024-11-06] VITALS (7 sets, daily range): BP systolic 106–126; BP diastolic 59–69; PULSE 54–55; RESP 18–26; TEMP 97–98; O2SAT 95–97
--- NOTE | 2024-11-06 07:25 | DVHPN2 ---
Progress Note - Dictate Date Seen: Nov 06, 2024 Has the PT tested + for MRSA If YES, has PT been informed?: No Medical Necessity Reason Pt with a Central, PICC or Fol: Yes The following are medically ne: PICC Line, Cutler Catheter Reason for cutler catheter: Strict I&O vital signs Vital Sign Date Time Temp Pulse Resp B/P (MAP) Pulse Ox O2 Delivery O2 Flow Rate FiO2 11/06/24 05:00 97.0 55 26 123/68 (86) 96 97.0 11/05/24 20:00 Room Air* 0 21 Total Intake and Output 11/05/24 11/05/24 11/06/24 15:00 23:00 07:00 Intake Total 50 ml 0 ml Output Total 325 ml 250 ml Balance 50 ml -325 ml -250 ml medications Current Medications Medications Dose Ordered Sig/Liliam Route Start Time Stop Time Status Last Admin Dose Admin Ondansetron HCl 4 mg Q4HP PRN IV 10/07/24 10:00 Nitroglycerin 0.4 mg Q5MINP PRN SL 10/07/24 10:00 Pantoprazole Sodium 40 mg DAILY IV 10/07/24 10:00 11/05/24 08:36 40 MG Acetaminophen 500 mg Q6HP PRN PO 10/08/24 22:30 10/19/24 03:18 500 MG Amino Acids 0 ml @ 0 mls/hr PER PHARMACY IV 10/15/24 18:45 Cancel Dextrose 50 ml UD IV 10/16/24 09:30 Cancel Polyethylene Glycol 17 gm DAILYPRN PRN GT 10/17/24 16:45 10/19/24 05:54 17 GM Hydrocortisone Sodium Succinate 50 mg Q6HR IV 10/19/24 18:00 11/06/24 05:25 50 MG Vancomycin HCl 0 ml @ 0 mls/hr UD IV 10/19/24 14:00 Cancel Apixaban 2.5 mg BID PO 10/25/24 10:00 Hold Metoclopramide HCl 5 mg BID IV 10/25/24 10:00 Hold 10/25/24 21:32 5 MG Sodium Chloride 10 ml QSHIFT@10,22 IV 10/26/24 22:00 11/05/24 22:00 10 ML Morphine Sulfate 2 mg Q4HPRN PRN IV 10/28/24 10:30 11/03/24 10:37 2 MG Metoprolol Tartrate 12.5 mg BID PO 10/28/24 22:00 10/30/24 09:24 12.5 MG Metoprolol Tartrate 2.5 mg Q6HPRN PRN IV 10/31/24 09:15 Diagnostic Test (Pha) 1 strip Q6HR 11/01/24 18:00 11/06/24 05:25 1 STRIP Insulin Human Regular FOLLOW SLIDING SCALE Q6HR SC 11/01/24 18:00 11/05/24 18:40 2 UNITS Dextrose 50 ml UD IV 11/01/24 18:00 Amino Acids 0 ml @ 0 mls/hr PER PHARMACY IV 11/04/24 22:00 Amino Acid Protein 30 ml DAILY PO 11/04/24 10:00 Mexiletine HCl 150 mg TID PO 11/04/24 14:00 Dextrose 1,000 ml @ 50 mls/hr Q20H IV 11/04/24 12:45 11/06/24 04:27 50 MLS/HR laboratory and microbiology Laboratory Tests 11/05/24 05:16 Test 11/06/24 06:52 Range/Units Serum Glucose Pending Assessment/Plan In Tele. Failed swallowing evaluation. Alert and oriented to self only. Eliquis is still pending to start (INR is still above 2). Still on TPN Patient is a 54-year-old female who was brought to the hospital for witnessed syncope. She is intubated and is being managed in ICU. Information was obtained by reviewing the chart and communicating with patient's son (over the phone). Family recognized witnessed syncope and started CPR and called EMS. Reportedly, EMS found the patient in ventricular fibrillation and shocked the patient and brought the patient to the hospital. Patient was intubated in emergency room and transferred to ICU. Patient was on amiodarone drip. Later the patient had ventricular tachycardia (Systane). High sensitive troponin had been minimally/flatly elevated. Presentation was not in favor of acute coronary syndrome. Cardiology is involved for cardiac aspects of care. NAD Does not talk. Alert and oriented to self only. No JVD. Mucosa pale. No carotid bruit. Scattered rhonchi in the lungs is heard. Cardiac: Regular, no thrill. Systolic murmur 2/6 in apex is heard. Abdomen is soft. No edema in extremities. Past medical history as per son: Congenital heart disease, status post bypass WBC: 14.5 - 11.9 - 18.8 - 20.0 - 21.2 - 14.3 - 10.3 - 8.9 - 9.2 - 11.1 - 12.1 - 10.8 - 12.0 - 9.9 - 15.4 - 14.8 - 12.1 - 10.5 - 5.8 - 5.3 - 4.2 - 5.8 - 4.1 - 7.0 - 9.3 - 8.3 - 11.5 - 8.4 - 8.4 - 5.4 - 5.7 Hemoglobin: 10.1 - 9.6 - 9.2 - 8.8 - 8.7 - 8.0 - 8.3 - 8.5 - 7.8 - 10.2 - 10.7 - 9.9 - 9.7 - 9.3 - 9.3 - 8.6 - 8.1 - 7.4 - 7.5 - 7.4 - 7.5 - 7.2 - 7.7 - 7.0 - (post PRBC transfusion) 10.4 - 10 - 9.5 - 10.0 - 9.2 - 9.8 -9.6 - 9.7 Creatinine: 0.95 - 0.93 - 0.87 - 0.83 - 0.83 - 0.76 - 0.68 - 0.72 - 0.79 - 0.76 - 0.80 - 0.84 - 0.61 - 0.65 - 0.74 - 0.64 - 0.73 - 0.82 - 0.88 - 1.03 - 0.99 - 0.85 - 0.87 - 0.79 - 1.12 - 1.15 - 1.04 - 0.96 - 0.94 - 0.93 - 0.78 - 0.71 - 0.68 - 0.61 Potassium: 3.4 - 4.0 - 4.6 - 3.5 - 3.3 - 4.1 - 3.7 - 3.2 - 3.7 - 4.0 - 3.2 - 3.4 - 3.9 - 4.2 - 3.3 - 3.8 - 3.6 - 3.4 - 4.2 - 3.8 - 4.5 - 4.1 - 3.5 - 4.2 - 3.3 - 2.6 - 3.5 - 3.8 - 2.4 - 2.9 - 4.6 - 2.8 - 4.8 - 4.9 - 3.4 - 3.1 - 3.7 - 4.4 - 3.7 - 3.7 - 3.1 - 3.0 - 3.8 - 4.4 Magnesium: 2.0 - 1.6 - 2.0 - 3.0 - 1.5 - 1.9 - 2.1 - 1.8 - 2.0 - 1.9 - 1.9 - 2.6 - 2.0 - 1.8 - 1.6 - 2.0 - 2.2 - 1.9 - 2.3 - 2.2 - 2.2 - 2.1 - 2.1 - 1.9 2.7 - 2.6 - 2.3 - 2.4 - 2.5 - 2.3 - 2.5 - 2.3 - 2.3 2.4 Troponin (high sensitive): 141 - 138 - 117 BNP: 457.16 - 1073.91 AST/ALT: 32/11 - 19/13 - 538/168 - 293/152 - 131/130 - 78/94 - 68/74 - 48/57 - 27/38 - 15/23 - 20/18 - 23/17 - 29/16 - 27/13 - 34/17 - 73/49 - 41/43 - 30/47 - 30/42 - 29/42 - 17/27 - 160/87 - 900/478 - 986/571 - 382/436 - 110/244 - 42/170 - 22/113 - 16/77 - 15/59 - 19/50 Digoxin level: 2.83 - 1.25 - 0.98 UDS: non-revealing Chest x-ray revealed: Lines and Tubes: Endotracheal tube tip projects approximately 1.4 cm above the level of the tyler. Enteric catheter courses below the lateral of the diaphragm and terminates beyond the inferior margin of the image. Right internal jugular central venous catheter terminates within the distal superior vena cava. Lungs: Moderate diffuse increased prominence of the pulmonary vasculature without evidence of focal consolidation. Pleura: No effusion. No pneumothorax. Cardiomediastinal contours: Cardiomegaly. Bones: Unremarkable IMPRESSION: 1. Cardiomegaly and diffuse increased prominence of the pulmonary vasculature. 2. Lines and tubes as above. Repeat chest x-ray revealed: IMPRESSION: 1. Endotracheal tube tip 1.6 cm above the tyler; consider 2 cm retraction 2. Mild pulmonary vascular congestion. Moderate cardiomegaly. Repeat chest xry revealed: IMPRESSION: Endotracheal tube tip 1.6 cm above the tyler; consider 2 cm retraction Mild pulmonary vascular congestion. Moderate cardiomegaly. Repeat chest xry revealed: IMPRESSION: 1. Stable cardiomegaly, small left pleural effusion and mild diffuse increased prominence of the pulmonary vasculature. 2. Repositioned endotracheal tube as above. Remaining lines and tubes unchanged. Repeat chest xry revealed: IMPRESSION: 1. Cardiomegaly, stable diffuse increased prominence of the pulmonary vasculature and small bilateral pleural effusions. 2. Slight interval advancement of endotracheal tube as above. Remaining lines and tubes unchanged. Repeat chest xry revealed: IMPRESSION: 1. Slight interval decrease in diffuse increased prominence of the pulmonary vasculature. 2. Stable cardiomegaly and small left pleural effusion. 3. Lines and tubes unchanged. Repeat chest xry revealed: IMPRESSION: 1. Cardiomegaly and small left pleural effusion. 2. Lines and tubes unchanged. Repeat chest xry revealed: IMPRESSION: Stable lines and tubes. Similar lung aeration. Repeat chest xry revealed: IMPRESSION: Cardiomegaly and small left pleural effusion. Lines and tubes unchanged. Repeat chest xry revealed: IMPRESSION: Placement of a cardiac pacer, no pneumothorax is seen. Stable lines and tubes. Repeat chest xry revealed: IMPRESSION: 1. Worsening mixed opacities in the right lower lung. No other significant change from the previous study. Stable support devices. Repeat chest xry revealed: Heart is prominent in size with postsurgical changes, median sternotomy wires, and a single lead left cardiac defibrillator. Support lines and tubes appear unchanged in satisfactory in position. No sizable effusion or pneumothorax. Mild pulmonary vascular congestion. No significant interval change. Repeat chest xry revealed: IMPRESSION: 1. No significant change from the previous study. Stable support devices. Similar findings of heart failure including left pleural effusion. Repeat chest xry revealed: IMPRESSION: 1. No significant change from the previous study. Stable support devices. Similar findings of heart failure including trace left pleural effusion. Repeat chest xry revealed: Lines and Tubes: Unchanged. Left anterior chest wall cardiac pacing device. Lungs: Clear Pleura: No effusion. No pneumothorax. Cardiomediastinal contours: Cardiomegaly. Bones: Unremarkable IMPRESSION: 1. Cardiomegaly. 2. Lines and tubes unchanged. Repeat chest xry revealed: IMPRESSION: Lines and tubes in satisfactory position. No significant interval change. Repeat chest xry revealed: Lines and Tubes: ET tube and NG tube removed. Lungs: Congestion Pleura: No effusion. No pneumothorax. Cardiomediastinal contours: Cardiomegaly Bones: Unremarkable IMPRESSION: 1. Cardiomegaly with CHF. Repeat chest xry revealed: IMPRESSION: 1. Cardiomegaly. 2. Patchy bilateral airspace disease. Liver Ultrasound revealed: Hepatic steatosis. Trace right pleural effusion. Trace ascites Gallstones Bladder ultrasound revealed: IMPRESSION: 1. Cutler catheter in the bladder in the bladder is decompressed. Repeat Bladder Ultrasound revealed: Urinary bladder is unremarkable with prevoid volume of 29 mL. Urinary bladder wall measures 1.5 mm. Cutler catheter is noted. KUB revealed: IMPRESSION: Nonobstructive bowel gas pattern. Nasogastric tube tip in the stomach. Large stool burden. Repeat KUB revealed: Right lower extremity PICC line with tip projecting over the expected region of the intrahepatic IVC. Nasogastric tube projecting towards the distal stomach. Nonspecific bowel gas pattern. Cardiomegaly and left basilar airspace opacities, incompletely characterized. Atherosclerotic calcification disease. Left upper ext arterial duplex: IMPRESSION: No hemodynamically significant stenosis based on peak systolic velocity criteria. Left lower ext arterial duplex: IMPRESSION: There is no evidence for peripheral vascular insufficiency in the left lower extremity. No significant focal stenosis is identified. Liver Ultrasound revealed: Hepatic steatosis. Hepatomegaly. Cholelithiasis. CT of the head revealed: IMPRESSION: No acute intracranial abnormality. Repeat CT of head revealed: IMPRESSION: No acute intracranial abnormality. Repeat CT of Head revealed: IMPRESSION: No acute intracranial abnormality. Echocardiogram reported: lvef 15-20% dilated LV severe global dysfunction mild RV dysfunction biatrial enlargement mild moderate MAC, moderate mitral regurg mild to moderate aortic regug (images of echo reviewed and questioned presence of mitral ring and also some component (moderate of Mitral stenosis) EKG revealed sinus rhythm Telemetry revealed occasions of atrial fibrillation. There was occasional sustained ventricular tachycardia. EMS tele monitor revealed ventricular fibrillation for which the patient was shocked. Has remained sinus rhythm. Later with A-fib with MVR LHC revealed: Patent RICHMOND to LAD; Patent SVG to obtuse marginal; LVEF of 20% with increased EDP; Proximal disease in LAD/LCX RICHIE was performed: Consistent with severely reduced LVEF. Consistent with previously implanted Mitral ring, Up to moderate Mitral stenosis/Mitral Regurgitation and also Moderate Aortic insufficiency. Patient is a 54-year-old female who presented with witnessed syncope. She was found to have ventricular fibrillation for which was shocked. Later had repeated episode of sustained ventricular tachycardia. Patient has been kept in ICU. Does have baseline history of coronary artery disease for which has had bypass surgery. Left heart catheterization was performed which revealed patent RICHMOND and patent SVG. ACS is not considered at this point. It is of note that the patient's echocardiogram reveals significantly use systolic function. Valvular heart disease is considered. Findings are in favor of previously implanted mitral ring. By reviewing the echo images, component of up to moderate mitral stenosis could not be ruled out. LHC was performed that ruled out any active specific ischemia as an etiology for presentation. Is off Amiodarone for abnormal LFT. Being followed by Nephrology / Pulmonary / Neurology / GI ID. Tele has remained sinus rhythm. Had episode of a-fib with RVR. Was loaded with Digoxin. Dig level was performed at wrong timing (only 5 hours after the last Dig given). Dig toxicity is not considered. Patient is back to normal sinus rhythm. Has good kidney function. Repeat Dig level is acceptable level. s/p ICD implantation by EP. Intubated, later extubated. Syncope V-fib s/p shock Sustained V-tach Paroxysmal A-fib VHD, s/p Mitral ring Systolic heart failure Abnormal LFT, at a point resolved, later appeared again s/p ICD (Biotronik) implantation by EP (Dr Armstrong) s/p PRBC transfusion for significant anemia Hepatic Steatosis Gallstones Cardiac suggestion for management: Manage in Tele Follow up electrolytes and kidney function test and correct abnormalities Full anticoagulation (a-fib with high CHADS-Vasc score). s/p ICD implantation. Awaiting INR below 2.0 (was on warfarin for a while) to start Eliquis Off Amio drip (worsened LFT) On Mexiletine If need for pressure support: use Phenyl Ephrine / vasopressin, keep MAP above 65 (for now off pressure support and tolerating) On Metoprolol to decrease risk of Vtach (as patient has ICD with bradycardia protection: may continue metoprolol in case of bradycardia, but hold: if hypotensive) May consider/add Esmolol for PVC/Vtach (if needed) Does not talk. Alert and oriented to self only. As she has not passed swallowing evaluation: IV Metoprolol if needed (HR above 100) s/p ICD (Biotronik) implantation by EP Off warfarin: Eliquis: 2.5 mg BID (only after INR is below 2.0): when she can swallow and after any predicted procedure completed (if needed to have PEG, to have it started after performing PEG): for now: Lovenox s/p PRBC transfusion for anemia Failed swallowing evaluation for now Pulmonary Follow up GI follow up for repeated failed swallowing evaluation Provide previous medical records from reaching out to previous hospitals in [facility]... Further evaluation and management depends on the above and clinical course. A total of 55 minutes was spent reviewing the patient record, examining the patient, making a diagnostic and therapeutic plan, discussing this plan with medical personnel, following up on diagnostic studies and following the patient for clinical stability excluding any and all procedures. At least 50% of this time was spent in direct, [id number] contact. Thank you for allowing me to participate in this patient's care. Further recommendations will depend on patient's clinical course. Please do not hesitate to contact me if you have any questions or concerns. This medical document was created using electronic medical record system with [employer] computerized dictation system. Although this document has been carefully reviewed, there may still be some phonetic and typographical errors. These areas are purely typographical due to the imperfection of the software programs, and do not reflect any compromise in the patient's medical care. Dietary Evaluation Review Comments: 1) TF Jevity 1.2Cal @ 55 ml/hr. x 24hr along with Pro-stat 1 pk daily. Start @ 20ml/hr, increase 10ml/hr Q4H until goal is reached. TF @ goal volume provides 1684 kcal (100% energy needs), 88 gm protein (100% protein needs), 1065 ml free water. 2) Water flush 100ml Q4H if allowed, adjust PRN 3) Advance to cardiac diet as medically feasible 4) Monitor NPO status, lab values, wt trend, I/O Expected Outcomes/Goals: To meet >75% estimated needs within 7 days Lab values to improve Fu 2-3 days Plan discussed with: Other (nurse) CORDELL VERA MD Nov 06, 2024 07:25
[2024-11-06 07:34] LABS: Alkaline Phosphatase 90 U/L (46-116); Anion Gap 11 (5-15); BUN/Creatinine Ratio 34.4 (10.0-20.0); Blood Urea Nitrogen 21 mg/dL (9-23); Glucose 104 mg/dL (74-106); Magnesium 2.4 mg/dL (1.6-2.6); Potassium 4.4 mmol/L (3.5-5.1); Sodium 144 mmol/L (136-145)
[2024-11-06 07:36] LABS: Bilirubin, Total 1.1 mg/dL (0.2-1.0)
[2024-11-06 07:37] LABS: Alanine Aminotransferase 50 U/L (7-40); Albumin 3.2 g/dL (3.2-4.8); Calcium 8.6 mg/dL (8.7-10.4); Carbon Dioxide 19 mmol/L (20-31); Chloride 114 mmol/L (98-107); Total Protein 5.6 g/dL (5.7-8.2)
[2024-11-06 07:47] LABS: INR 1.13 (0.9-1.15); Partial Thromboplastin Time 21.8 SEC (24.5-34.5); Prothrombin Time 11.8 sec (9.3-11.8)
--- NOTE | 2024-11-06 09:02 | DVHPNRES ---
Progress Note Date Seen: Nov 06, 2024 Resident Creating Document: [facility] RESIDENT Has the PT tested + for MRSA If YES, has PT been informed?: No Medical Necessity Reason Pt with a Central, PICC or Fol: Yes The following are medically ne: PICC Line, Cutler Catheter Reason for cutler catheter: Strict I&O Objective vital signs Vital Sign Date Time Temp Pulse Resp B/P (MAP) Pulse Ox O2 Delivery O2 Flow Rate FiO2 11/06/24 08:10 Room Air* 0 21 11/06/24 05:00 97.0 55 26 123/68 (86) 96 97.0 Total Intake and Output 11/05/24 11/05/24 11/06/24 15:00 23:00 07:00 Intake Total 50 ml 0 ml Output Total 325 ml 250 ml Balance 50 ml -325 ml -250 ml medications Current Medications Medications Dose Ordered Sig/Liliam Route Start Time Stop Time Status Last Admin Dose Admin Ondansetron HCl 4 mg Q4HP PRN IV 10/07/24 10:00 Nitroglycerin 0.4 mg Q5MINP PRN SL 10/07/24 10:00 Pantoprazole Sodium 40 mg DAILY IV 10/07/24 10:00 11/05/24 08:36 40 MG Acetaminophen 500 mg Q6HP PRN PO 10/08/24 22:30 10/19/24 03:18 500 MG Amino Acids 0 ml @ 0 mls/hr PER PHARMACY IV 10/15/24 18:45 Cancel Dextrose 50 ml UD IV 10/16/24 09:30 Cancel Polyethylene Glycol 17 gm DAILYPRN PRN GT 10/17/24 16:45 10/19/24 05:54 17 GM Hydrocortisone Sodium Succinate 50 mg Q6HR IV 10/19/24 18:00 11/06/24 05:25 50 MG Vancomycin HCl 0 ml @ 0 mls/hr UD IV 10/19/24 14:00 Cancel Metoclopramide HCl 5 mg BID IV 10/25/24 10:00 Hold 10/25/24 21:32 5 MG Sodium Chloride 10 ml QSHIFT@10,22 IV 10/26/24 22:00 11/05/24 22:00 10 ML Morphine Sulfate 2 mg Q4HPRN PRN IV 10/28/24 10:30 11/03/24 10:37 2 MG Metoprolol Tartrate 12.5 mg BID PO 10/28/24 22:00 10/30/24 09:24 12.5 MG Metoprolol Tartrate 2.5 mg Q6HPRN PRN IV 10/31/24 09:15 Diagnostic Test (Pha) 1 strip Q6HR 11/01/24 18:00 11/06/24 05:25 1 STRIP Insulin Human Regular FOLLOW SLIDING SCALE Q6HR SC 11/01/24 18:00 11/05/24 18:40 2 UNITS Dextrose 50 ml UD IV 11/01/24 18:00 Amino Acids 0 ml @ 0 mls/hr PER PHARMACY IV 11/04/24 22:00 Amino Acid Protein 30 ml DAILY PO 11/04/24 10:00 Mexiletine HCl 150 mg TID PO 11/04/24 14:00 Dextrose 1,000 ml @ 50 mls/hr Q20H IV 11/04/24 12:45 11/06/24 04:27 50 MLS/HR Enoxaparin Sodium 40 mg DAILY SC 11/06/24 10:00 Examination: GENERAL:Normal, HEENT:Normal, NECK:Normal, LUNGS:Normal (in room air ), CVS:Normal, ABDOMEN:Normal, MSK:Normal, SKIN:Normal, NEURO:Abnormal (patient is alert but not oriented to the time place and person. ) laboratory and microbiology Laboratory Tests 11/06/24 06:52 11/05/24 05:16 Test 11/06/24 06:52 Range/Units Serum Glucose 104 74-106 mg/dL Microbiology Date/Time Source Procedure Growth Status 10/20/24 04:00 Sputum Gram Stain - Final Complete 10/20/24 04:00 Respiratory Culture - Final Enterobacter cloacae Yeast, not Ilda albicans Complete 10/20/24 01:03 Urine - Cutler Port Urine Culture - Final Yeast, not Ilda albicans Complete 10/19/24 13:02 Blood Blood Culture - Final NO GROWTH AFTER 5 DAYS OF INCUBATION. Complete 10/07/24 16:50 Nose MRSA Screen - Final Complete Labs and/or images reviewed: Labs reviewed by me, Image(s) reviewed by me Problem List/Assessment/Plan Problem List/Assessment/Plan Ms. Smith is a 54-year-old female with a history of paroxysmal atrial fibrillation, ventricular tachycardia, congenital heart disease, and multiple episodes of cardiac arrest, who was consulted for sepsis following a witnessed syncopal event. She had recently been discharged from [facility] in [place] with prescriptions for amiodarone, Lipitor, and Lasix, which she did not take. After traveling, she experienced another cardiac arrest requiring code blue intervention; EMS found her in ventricular fibrillation and successfully resuscitated her. She was intubated and admitted to the ICU, where she underwent left heart catheterization and transesophageal echocardiogram. Despite being on an amiodarone drip, she developed ventricular tachycardia. Troponin levels were minimally elevated, and her presentation was not consistent with acute coronary syndrome. Echocardiographic findings revealed severely reduced LVEF (1525%), dilated chambers, and moderate mitral and aortic regurgitation, with no vegetations or thrombus. Blood cultures showed no growth, and urinalysis and drug screen were negative. Cardiology remains actively involved in her care. Assessment: # Shock liver, transaminitis which improved, rule out hepatitis, GI on board. # Possible atypical Pneumonia vs amiodarone toxicity, Community-acquired pneumonia growing Enterobacter # Sepsis, unspecified organism # Ventricular fibrillation # Cardiac arrest s/p ACLS and ROSC after 5 min. # Syncope V-fib s/p shock # Paroxysmal atrial fibrillation # Ventricular tachycardia # Congenital heart disease # Systolic heart failure s/p ICD (Biotronik) implantation by EP (Dr Armstrong) # s/p PRBC transfusion for significant anemia # Gallstones Questionable acute cholecystitis clinically ruled out by Surgical team. # Heart failure with reduced ejection fraction 15-20% # Metabolic versus hypoxic encephalopathy # acute resp failure on 2-3 l oxygen # b/l atelectasis Plan: #Rule out hepatitis #Blood and sputum culture to check #No more need of antibiotics. #Check for clinical signs of AHRF #Patient has intermittent confusion if persists please consider neurology consult Discussed with Dr. Eaton Infectious Disease will sign off. Please feel free to reach out in case of any question Plan discussed with: Patient Dietary Evaluation Review Comments: 1) TF Jevity 1.2Cal @ 55 ml/hr. x 24hr along with Pro-stat 1 pk daily. Start @ 20ml/hr, increase 10ml/hr Q4H until goal is reached. TF @ goal volume provides 1684 kcal (100% energy needs), 88 gm protein (100% protein needs), 1065 ml free water. 2) Water flush 100ml Q4H if allowed, adjust PRN 3) Advance to cardiac diet as medically feasible 4) Monitor NPO status, lab values, wt trend, I/O Expected Outcomes/Goals: To meet >75% estimated needs within 7 days Lab values to improve Fu 2-3 days BE[facility] RESIDENT Nov 06, 2024 09:02
--- NOTE | 2024-11-06 09:07 | DVHPN2 ---
Progress Note - Dictate Date Seen: Nov 06, 2024 Has the PT tested + for MRSA If YES, has PT been informed?: No Medical Necessity Reason Pt with a Central, PICC or Fol: Yes The following are medically ne: PICC Line, Cutler Catheter Reason for cutler catheter: Strict I&O vital signs Vital Sign Date Time Temp Pulse Resp B/P (MAP) Pulse Ox O2 Delivery O2 Flow Rate FiO2 11/06/24 08:10 Room Air* 0 21 11/06/24 05:00 97.0 55 26 123/68 (86) 96 97.0 Total Intake and Output 11/05/24 11/05/24 11/06/24 15:00 23:00 07:00 Intake Total 50 ml 0 ml Output Total 325 ml 250 ml Balance 50 ml -325 ml -250 ml medications Current Medications Medications Dose Ordered Sig/Liliam Route Start Time Stop Time Status Last Admin Dose Admin Ondansetron HCl 4 mg Q4HP PRN IV 10/07/24 10:00 Nitroglycerin 0.4 mg Q5MINP PRN SL 10/07/24 10:00 Pantoprazole Sodium 40 mg DAILY IV 10/07/24 10:00 11/05/24 08:36 40 MG Acetaminophen 500 mg Q6HP PRN PO 10/08/24 22:30 10/19/24 03:18 500 MG Amino Acids 0 ml @ 0 mls/hr PER PHARMACY IV 10/15/24 18:45 Cancel Dextrose 50 ml UD IV 10/16/24 09:30 Cancel Polyethylene Glycol 17 gm DAILYPRN PRN GT 10/17/24 16:45 10/19/24 05:54 17 GM Hydrocortisone Sodium Succinate 50 mg Q6HR IV 10/19/24 18:00 11/06/24 05:25 50 MG Vancomycin HCl 0 ml @ 0 mls/hr UD IV 10/19/24 14:00 Cancel Metoclopramide HCl 5 mg BID IV 10/25/24 10:00 Hold 10/25/24 21:32 5 MG Sodium Chloride 10 ml QSHIFT@10,22 IV 10/26/24 22:00 11/05/24 22:00 10 ML Morphine Sulfate 2 mg Q4HPRN PRN IV 10/28/24 10:30 11/03/24 10:37 2 MG Metoprolol Tartrate 12.5 mg BID PO 10/28/24 22:00 10/30/24 09:24 12.5 MG Metoprolol Tartrate 2.5 mg Q6HPRN PRN IV 10/31/24 09:15 Diagnostic Test (Pha) 1 strip Q6HR 11/01/24 18:00 11/06/24 05:25 1 STRIP Insulin Human Regular FOLLOW SLIDING SCALE Q6HR SC 11/01/24 18:00 11/05/24 18:40 2 UNITS Dextrose 50 ml UD IV 11/01/24 18:00 Amino Acids 0 ml @ 0 mls/hr PER PHARMACY IV 11/04/24 22:00 Amino Acid Protein 30 ml DAILY PO 11/04/24 10:00 Mexiletine HCl 150 mg TID PO 11/04/24 14:00 Dextrose 1,000 ml @ 50 mls/hr Q20H IV 11/04/24 12:45 11/06/24 04:27 50 MLS/HR Enoxaparin Sodium 40 mg DAILY SC 11/06/24 10:00 objective General Appearance: no distress HEENT: EOMI, PERRLA, normal external inspect of ears, no icterus, no nasal drainage Neck: no carotid bruit, no jugular venous distention (JVD), no lymphadenopathy Chest: normal thorax Respiratory: Intubated, clear to auscultation, normal air movement Cardiovascular: regular rate and rhythm, no diastolic murmur, no jugular venous distention (JVD), no rub, no systolic murmur Abdominal: soft, no hepatomegaly, no mass, no splenomegaly, no tenderness Genitourinary: grossly normal external Musculoskeletal: no joint tenderness, no swelling Extremities: normal pulses, no calf tenderness, no clubbing, no cyanosis, no edema Skin: no bruising, no jaundice, no rash Neurological: No focal deficit laboratory and microbiology Laboratory Tests 11/06/24 06:52 11/05/24 05:16 Test 11/06/24 06:52 Range/Units Serum Glucose 104 74-106 mg/dL Problem List Cardiac Arrest with Ventricular Fibrillation Assessment: Patient experienced cardiac arrest with ventricular fibrillation on 10/07/24, witnessed by family members who initiated CPR. EMS found the patient in ventricular fibrillation and administered shock therapy. Rhythm strip analysis confirmed ventricular fibrillation. Patient required intubation and sedation upon ED arrival. Currently admitted to ICU for close observation. Cardiology has been consulted and plans for AICD placement, likely on Tuesday. Infectious disease clearance has been obtained for the AICD procedure, addressing initial concerns of leukocytosis which is now improving. Status post-cardiac arrest. Plan: - Continue ICU monitoring - Proceed with AICD placement as planned (likely Tuesday), cleared by infectious disease. - Maintain intubation and sedation until AICD placement - Continue Heparin drip for paroxysmal atrial fibrillation - Continue Mexitil - DC amiodarone due to transaminitis - added esmolol drip per Cardiology for AFib and added push doses of digoxin Coronary Artery Disease Assessment: Patient with history of 2-vessel CABG (Coronary Artery Bypass Grafting). Surgical intervention previously performed to address significant coronary artery stenosis. Plan: - Continue medical management - Follow up with cardiology for ongoing coronary artery disease management Acute and Chronic Systolic Heart Failure Assessment: Patient has acute and chronic systolic heart failure with severely reduced left ventricular function. Ejection fraction is estimated at 15-20%. RICHIE findings are consistent with severely reduced left ventricular ejection fraction, previously implanted mitral ring, up to moderate mitral stenosis and regurgitation, and moderate aortic insufficiency. Plan: - Continue cardiology consultation - continue IV diuretics (IV Lasix) - Monitor renal function Acute Hypoxic Respiratory Failure Assessment: Patient is currently intubated due to acute hypoxic respiratory failure. Dr. Downey from pulmonology is managing this aspect of care. Plan: - Maintain current intubation as per pulmonology recommendation - Proceed with CPAP trials when deemed appropriate by pulmonology Transaminitis Assessment: Patient has elevated liver function tests, likely secondary to amiodarone use. Cardiology has discontinued amiodarone in response. Plan: - Monitor liver function tests - Amiodarone discontinued as per cardiology Enterobacter PNA Assessment: Sputum culture positive for Enterobacter. Plan: - Continue treatment with Eratapenem to complete 10 days regimen -Infectious disease consult Hemodynamic Support Assessment: Patient requires vasopressor support for hemodynamic stability. Plan: - Continue vasopressin - Continue neosynephrine Paroxysmal a fib -DC amiodarone -continue with heparin gtt Shock liver GI consult, trend liver enzymes, hepatitis panel was negative. Ultrasound of the liver had no acute findings. Assessment/Plan Subjective: Patient is A&O x 2. Objective: Patient has sitter at bedside. Patient is very weak. Not attempting to get out of bed. Patient was admitted status post cardiac arrest. Patient was found to be septic with Enterobacter pneumonia. Patient had A-fib with RVR and also ventricular tachycardia. Patient is status post AICD placement. Patient is off vasopressors and currently off antibiotics. Estimated EF is 25%. Plan: Continue current treatment. Possible plan for PEG tube due to multiple failed swallow evals. I updated patient's son Amanuel in regards to plan of care yesterday. Most likely looking for a skilled rehab center. Dietary Evaluation Review Comments: 1) TF Jevity 1.2Cal @ 55 ml/hr. x 24hr along with Pro-stat 1 pk daily. Start @ 20ml/hr, increase 10ml/hr Q4H until goal is reached. TF @ goal volume provides 1684 kcal (100% energy needs), 88 gm protein (100% protein needs), 1065 ml free water. 2) Water flush 100ml Q4H if allowed, adjust PRN 3) Advance to cardiac diet as medically feasible 4) Monitor NPO status, lab values, wt trend, I/O Expected Outcomes/Goals: To meet >75% estimated needs within 7 days Lab values to improve Fu 2-3 days Plan discussed with: Patient, Other BRODIE GARVIN [employer] Nov 06, 2024 09:07
--- NOTE | 2024-11-06 10:09 | DVHPN2 ---
Progress Note Date Seen: Nov 06, 2024 Resident Creating Document: ETHAN SWAN RESIDENT Has the PT tested + for MRSA If YES, has PT been informed?: No Medical Necessity Reason Pt with a Central, PICC or Fol: Yes The following are medically ne: PICC Line, Cutler Catheter Reason for cutler catheter: Strict I&O Subjective Review of Systems Patient seen and examined at bedside One bowel movement today, soft without any blood Remains to be AO x1, continues to whisper Objective vital signs Vital Sign Date Time Temp Pulse Resp B/P (MAP) Pulse Ox O2 Delivery O2 Flow Rate FiO2 11/06/24 09:00 97.6 55 18 124/69 (87) 96 97.6 11/06/24 08:10 Room Air* 0 21 Total Intake and Output 11/05/24 11/05/24 11/06/24 15:00 23:00 07:00 Intake Total 50 ml 0 ml Output Total 325 ml 250 ml Balance 50 ml -325 ml -250 ml medications Current Medications Medications Dose Ordered Sig/Liliam Route Start Time Stop Time Status Last Admin Dose Admin Ondansetron HCl 4 mg Q4HP PRN IV 10/07/24 10:00 Nitroglycerin 0.4 mg Q5MINP PRN SL 10/07/24 10:00 Pantoprazole Sodium 40 mg DAILY IV 10/07/24 10:00 11/05/24 08:36 40 MG Acetaminophen 500 mg Q6HP PRN PO 10/08/24 22:30 10/19/24 03:18 500 MG Amino Acids 0 ml @ 0 mls/hr PER PHARMACY IV 10/15/24 18:45 Cancel Dextrose 50 ml UD IV 10/16/24 09:30 Cancel Polyethylene Glycol 17 gm DAILYPRN PRN GT 10/17/24 16:45 10/19/24 05:54 17 GM Hydrocortisone Sodium Succinate 50 mg Q6HR IV 10/19/24 18:00 11/06/24 05:25 50 MG Vancomycin HCl 0 ml @ 0 mls/hr UD IV 10/19/24 14:00 Cancel Metoclopramide HCl 5 mg BID IV 10/25/24 10:00 Hold 10/25/24 21:32 5 MG Sodium Chloride 10 ml QSHIFT@10,22 IV 10/26/24 22:00 11/05/24 22:00 10 ML Morphine Sulfate 2 mg Q4HPRN PRN IV 10/28/24 10:30 11/03/24 10:37 2 MG Metoprolol Tartrate 12.5 mg BID PO 10/28/24 22:00 10/30/24 09:24 12.5 MG Metoprolol Tartrate 2.5 mg Q6HPRN PRN IV 10/31/24 09:15 Diagnostic Test (Pha) 1 strip Q6HR 11/01/24 18:00 11/06/24 05:25 1 STRIP Insulin Human Regular FOLLOW SLIDING SCALE Q6HR SC 11/01/24 18:00 11/05/24 18:40 2 UNITS Dextrose 50 ml UD IV 11/01/24 18:00 Amino Acids 0 ml @ 0 mls/hr PER PHARMACY IV 11/04/24 22:00 Amino Acid Protein 30 ml DAILY PO 11/04/24 10:00 Mexiletine HCl 150 mg TID PO 11/04/24 14:00 Dextrose 1,000 ml @ 50 mls/hr Q20H IV 11/04/24 12:45 11/06/24 04:27 50 MLS/HR Enoxaparin Sodium 40 mg DAILY SC 11/06/24 10:00 Examination General Appearance: Nonverbal Head Exam: Normal inspection. Constricted equal and reactive pupils Neck Exam: Normal inspection. Non-tender. Normal alignment Pulmonary/Respiratory: Chest non-tender. Trace crackles Abdominal Exam: Normal bowel sounds. Soft. Nontender Skin Exam: Normal inspection. Normal color. Warm. Dry laboratory and microbiology Laboratory Tests 11/06/24 06:52 11/05/24 05:16 Test 11/06/24 06:52 Range/Units Serum Glucose 104 74-106 mg/dL Microbiology Date/Time Source Procedure Growth Status 10/20/24 04:00 Sputum Gram Stain - Final Complete 10/20/24 04:00 Respiratory Culture - Final Enterobacter cloacae Yeast, not Ilda albicans Complete 10/20/24 01:03 Urine - Cutler Port Urine Culture - Final Yeast, not Ilda albicans Complete 10/19/24 13:02 Blood Blood Culture - Final NO GROWTH AFTER 5 DAYS OF INCUBATION. Complete 10/07/24 16:50 Nose MRSA Screen - Final Complete Labs and/or images reviewed: Labs reviewed by me, Image(s) reviewed by me Problem List/Assessment/Plan Problem List/Assessment/Plan Questionable acute cholecystitis Ventricular fibrillation S/p cardiopulmonary arrest with shock Heart failure with reduced ejection fraction 15-20% Metabolic versus hypoxic encephalopathy Acute hepatocellular injury likely shock liver Cholelithiasis without acute inflammation Nonalcoholic fatty liver disease with steatohepatitis Community-acquired pneumonia growing Enterobacter Plan: Tapered hydrocortisone 2 q.12 hours Consider repeating swallow evaluation We will evaluate for PEG tube placement once coagulopathy resolves Liver function tests downtrending appropriately Keep PT/INR therapeutic Hemoglobin stable, transfuse if HB 7 or less Continue tube feedings as patient failed swallow eval Decreased metoclopramide to 5 mg IV b.i.d. JAIDEN positive, outpatient follow up with GI recommended for further workup Thank you so much for the opportunity to consult on your patient. GI team will follow the patient. In case of any questions or concerns please feel free to reach out. Plan discussed with Dr. Anglin Plan discussed with: Other (RN) My Orders My Orders Orders - ETHAN SWAN RESIDENT Procedure Category Date Status Time * Swallow Request ST 11/05/24 Transmitted 15:49 Dietary Evaluation Review Comments: 1) TF Jevity 1.2Cal @ 55 ml/hr. x 24hr along with Pro-stat 1 pk daily. Start @ 20ml/hr, increase 10ml/hr Q4H until goal is reached. TF @ goal volume provides 1684 kcal (100% energy needs), 88 gm protein (100% protein needs), 1065 ml free water. 2) Water flush 100ml Q4H if allowed, adjust PRN 3) Advance to cardiac diet as medically feasible 4) Monitor NPO status, lab values, wt trend, I/O Expected Outcomes/Goals: To meet >75% estimated needs within 7 days Lab values to improve Fu 2-3 days ETHAN SWAN RESIDENT Nov 06, 2024 10:08
[2024-11-06] MEDS: ENOXAPARIN SOD 40 MG/0.4 ML SYRINGE SC SCH (10:13)
--- NOTE | 2024-11-06 17:15 | DVHPN2 ---
Progress Note - Dictate Date Seen: Nov 06, 2024 Has the PT tested + for MRSA If YES, has PT been informed?: No Medical Necessity Reason Pt with a Central, PICC or Fol: Yes The following are medically ne: PICC Line, Cutler Catheter Reason for cutler catheter: Strict I&O vital signs Vital Sign Date Time Temp Pulse Resp B/P (MAP) Pulse Ox O2 Delivery O2 Flow Rate FiO2 11/06/24 10:00 55 124/69 11/06/24 09:00 97.6 18 96 97.6 11/06/24 08:10 Room Air* 0 21 Total Intake and Output 11/05/24 11/05/24 11/06/24 15:00 23:00 07:00 Intake Total 50 ml 0 ml Output Total 325 ml 250 ml Balance 50 ml -325 ml -250 ml medications Current Medications Medications Dose Ordered Sig/Liliam Route Start Time Stop Time Status Last Admin Dose Admin Amino Acids 0 ml @ 0 mls/hr PER PHARMACY IV 10/15/24 18:45 Cancel Dextrose 50 ml UD IV 10/16/24 09:30 Cancel Polyethylene Glycol 17 gm DAILYPRN PRN GT 10/17/24 16:45 10/19/24 05:54 17 GM Vancomycin HCl 0 ml @ 0 mls/hr UD IV 10/19/24 14:00 Cancel Metoclopramide HCl 5 mg BID IV 10/25/24 10:00 Hold 10/25/24 21:32 5 MG Sodium Chloride 10 ml QSHIFT@10,22 IV 10/26/24 22:00 11/06/24 10:11 10 ML Metoprolol Tartrate 12.5 mg BID PO 10/28/24 22:00 10/30/24 09:24 12.5 MG Metoprolol Tartrate 2.5 mg Q6HPRN PRN IV 10/31/24 09:15 Diagnostic Test (Pha) 1 strip Q6HR 11/01/24 18:00 11/06/24 17:08 1 STRIP Insulin Human Regular FOLLOW SLIDING SCALE Q6HR SC 11/01/24 18:00 11/05/24 18:40 2 UNITS Dextrose 50 ml UD IV 11/01/24 18:00 Amino Acids 0 ml @ 0 mls/hr PER PHARMACY IV 11/04/24 22:00 Amino Acid Protein 30 ml DAILY PO 11/04/24 10:00 Mexiletine HCl 150 mg TID PO 11/04/24 14:00 Dextrose 1,000 ml @ 50 mls/hr Q20H IV 11/04/24 12:45 11/06/24 04:27 50 MLS/HR Enoxaparin Sodium 40 mg DAILY SC 11/06/24 10:00 11/06/24 10:13 40 MG Fat Emulsion Intravenous 150 ml/Potassium Acetate 60 meq/ Calcium Gluconate 2.3 meq/ Multivitamins 10 ml/Amino Acids/ Dextrose/Purified Water 1,594.9462 ml @ 66 mls/hr [id number] IV 11/06/24 22:00 11/07/24 21:59 Hydrocortisone Sodium Succinate 50 mg BID IV 11/06/24 22:00 UNV laboratory and microbiology Laboratory Tests 11/06/24 06:52 11/05/24 05:16 Test 11/06/24 06:52 Range/Units Serum Glucose 104 74-106 mg/dL Assessment/Plan impression s/p cardiac arrest VT CPR <5 min elevated troponin acute resp failure atelectases pt seen and examined events s/p extubation low oxygen requirements on room air no acute events s/p pacemaker management plan supplemental oxygen as needed titrate to maintain sats 90% or above incentive spirometry aspiration precautions cont abx monitor cx monitor labs renal function daily abg and CXR dvt proph/on aggressive physical therapy f/u cardiology Dietary Evaluation Review Comments: 1) TF Jevity 1.2Cal @ 55 ml/hr. x 24hr along with Pro-stat 1 pk daily. Start @ 20ml/hr, increase 10ml/hr Q4H until goal is reached. TF @ goal volume provides 1684 kcal (100% energy needs), 88 gm protein (100% protein needs), 1065 ml free water. 2) Water flush 100ml Q4H if allowed, adjust PRN 3) Advance to cardiac diet as medically feasible 4) Monitor NPO status, lab values, wt trend, I/O Expected Outcomes/Goals: To meet >75% estimated needs within 7 days Lab values to improve Fu 2-3 days Plan discussed with: Patient BELLO ROTHMAN MD Nov 06, 2024 17:15
[2024-11-06] MEDS: TPN PER PHARMACY IV NR (21:55)
[2024-11-06] MEDS: HYDROCORTISONE SOD SUCC 100 MG/2ML INJ VIAL IV SCH (22:06)
[2024-11-07] VITALS (8 sets, daily range): BP systolic 108–142; BP diastolic 66–86; PULSE 55–123; RESP 16–20; TEMP 97–98.4; O2SAT 0–97
--- NOTE | 2024-11-07 06:32 | DVHPN2 ---
Progress Note - Dictate Date Seen: Nov 07, 2024 Has the PT tested + for MRSA If YES, has PT been informed?: No Medical Necessity Reason Pt with a Central, PICC or Fol: Yes The following are medically ne: PICC Line, Cutler Catheter Reason for cutler catheter: Strict I&O vital signs Vital Sign Date Time Temp Pulse Resp B/P (MAP) Pulse Ox O2 Delivery O2 Flow Rate FiO2 11/07/24 05:00 98.4 62 18 108/66 (80) 97 98.4 11/06/24 20:00 Room Air* 0 21 Total Intake and Output 11/06/24 11/06/24 11/07/24 15:00 23:00 07:00 Intake Total 0 ml Output Total 175 ml Balance -175 ml medications Current Medications Medications Dose Ordered Sig/Liliam Route Start Time Stop Time Status Last Admin Dose Admin Amino Acids 0 ml @ 0 mls/hr PER PHARMACY IV 10/15/24 18:45 Cancel Dextrose 50 ml UD IV 10/16/24 09:30 Cancel Polyethylene Glycol 17 gm DAILYPRN PRN GT 10/17/24 16:45 10/19/24 05:54 17 GM Vancomycin HCl 0 ml @ 0 mls/hr UD IV 10/19/24 14:00 Cancel Metoclopramide HCl 5 mg BID IV 10/25/24 10:00 Hold 10/25/24 21:32 5 MG Sodium Chloride 10 ml QSHIFT@10,22 IV 10/26/24 22:00 11/06/24 22:06 10 ML Metoprolol Tartrate 12.5 mg BID PO 10/28/24 22:00 10/30/24 09:24 12.5 MG Metoprolol Tartrate 2.5 mg Q6HPRN PRN IV 10/31/24 09:15 Diagnostic Test (Pha) 1 strip Q6HR 11/01/24 18:00 11/07/24 05:31 1 STRIP Insulin Human Regular FOLLOW SLIDING SCALE Q6HR SC 11/01/24 18:00 11/07/24 02:28 2 UNITS Dextrose 50 ml UD IV 11/01/24 18:00 Amino Acids 0 ml @ 0 mls/hr PER PHARMACY IV 11/04/24 22:00 Amino Acid Protein 30 ml DAILY PO 11/04/24 10:00 Mexiletine HCl 150 mg TID PO 11/04/24 14:00 Dextrose 1,000 ml @ 50 mls/hr Q20H IV 11/04/24 12:45 11/06/24 04:27 50 MLS/HR Enoxaparin Sodium 40 mg DAILY SC 11/06/24 10:00 11/06/24 10:13 40 MG Fat Emulsion Intravenous 150 ml/Potassium Acetate 60 meq/ Calcium Gluconate 2.3 meq/ Multivitamins 10 ml/Amino Acids/ Dextrose/Purified Water 1,594.9462 ml @ 66 mls/hr [id number] IV 11/06/24 22:00 11/07/24 21:59 11/06/24 21:55 66 MLS/HR Hydrocortisone Sodium Succinate 50 mg BID IV 11/06/24 22:00 11/06/24 22:06 50 MG laboratory and microbiology Laboratory Tests 11/06/24 06:52 11/05/24 05:16 Test 11/06/24 06:52 Range/Units Serum Glucose 104 74-106 mg/dL Assessment/Plan In Tele. Failed swallowing evaluation. Alert and oriented to self only. Still on TPN Patient is a 54-year-old female who was brought to the hospital for witnessed syncope. She is intubated and is being managed in ICU. Information was obtained by reviewing the chart and communicating with patient's son (over the phone). Family recognized witnessed syncope and started CPR and called EMS. Reportedly, EMS found the patient in ventricular fibrillation and shocked the patient and brought the patient to the hospital. Patient was intubated in emergency room and transferred to ICU. Patient was on amiodarone drip. Later the patient had ventricular tachycardia (Systane). High sensitive troponin had been minimally/flatly elevated. Presentation was not in favor of acute coronary syndrome. Cardiology is involved for cardiac aspects of care. NAD Does not talk. Alert and oriented to self only. No JVD. Mucosa pale. No carotid bruit. Scattered rhonchi in the lungs is heard. Cardiac: Regular, no thrill. Systolic murmur 2/6 in apex is heard. Abdomen is soft. No edema in extremities. Past medical history as per son: Congenital heart disease, status post bypass WBC: 14.5 - 11.9 - 18.8 - 20.0 - 21.2 - 14.3 - 10.3 - 8.9 - 9.2 - 11.1 - 12.1 - 10.8 - 12.0 - 9.9 - 15.4 - 14.8 - 12.1 - 10.5 - 5.8 - 5.3 - 4.2 - 5.8 - 4.1 - 7.0 - 9.3 - 8.3 - 11.5 - 8.4 - 8.4 - 5.4 - 5.7 Hemoglobin: 10.1 - 9.6 - 9.2 - 8.8 - 8.7 - 8.0 - 8.3 - 8.5 - 7.8 - 10.2 - 10.7 - 9.9 - 9.7 - 9.3 - 9.3 - 8.6 - 8.1 - 7.4 - 7.5 - 7.4 - 7.5 - 7.2 - 7.7 - 7.0 - (post PRBC transfusion) 10.4 - 10 - 9.5 - 10.0 - 9.2 - 9.8 -9.6 - 9.7 Creatinine: 0.95 - 0.93 - 0.87 - 0.83 - 0.83 - 0.76 - 0.68 - 0.72 - 0.79 - 0.76 - 0.80 - 0.84 - 0.61 - 0.65 - 0.74 - 0.64 - 0.73 - 0.82 - 0.88 - 1.03 - 0.99 - 0.85 - 0.87 - 0.79 - 1.12 - 1.15 - 1.04 - 0.96 - 0.94 - 0.93 - 0.78 - 0.71 - 0.68 - 0.61 Potassium: 3.4 - 4.0 - 4.6 - 3.5 - 3.3 - 4.1 - 3.7 - 3.2 - 3.7 - 4.0 - 3.2 - 3.4 - 3.9 - 4.2 - 3.3 - 3.8 - 3.6 - 3.4 - 4.2 - 3.8 - 4.5 - 4.1 - 3.5 - 4.2 - 3.3 - 2.6 - 3.5 - 3.8 - 2.4 - 2.9 - 4.6 - 2.8 - 4.8 - 4.9 - 3.4 - 3.1 - 3.7 - 4.4 - 3.7 - 3.7 - 3.1 - 3.0 - 3.8 - 4.4 Magnesium: 2.0 - 1.6 - 2.0 - 3.0 - 1.5 - 1.9 - 2.1 - 1.8 - 2.0 - 1.9 - 1.9 - 2.6 - 2.0 - 1.8 - 1.6 - 2.0 - 2.2 - 1.9 - 2.3 - 2.2 - 2.2 - 2.1 - 2.1 - 1.9 2.7 - 2.6 - 2.3 - 2.4 - 2.5 - 2.3 - 2.5 - 2.3 - 2.3 2.4 Troponin (high sensitive): 141 - 138 - 117 BNP: 457.16 - 1073.91 AST/ALT: 32/11 - 19/13 - 538/168 - 293/152 - 131/130 - 78/94 - 68/74 - 48/57 - 27/38 - 15/23 - 20/18 - 23/17 - 29/16 - 27/13 - 34/17 - 73/49 - 41/43 - 30/47 - 30/42 - 29/42 - 17/27 - 160/87 - 900/478 - 986/571 - 382/436 - 110/244 - 42/170 - 22/113 - 16/77 - 15/59 - 19/50 Digoxin level: 2.83 - 1.25 - 0.98 UDS: non-revealing Chest x-ray revealed: Lines and Tubes: Endotracheal tube tip projects approximately 1.4 cm above the level of the tyler. Enteric catheter courses below the lateral of the diaphragm and terminates beyond the inferior margin of the image. Right internal jugular central venous catheter terminates within the distal superior vena cava. Lungs: Moderate diffuse increased prominence of the pulmonary vasculature without evidence of focal consolidation. Pleura: No effusion. No pneumothorax. Cardiomediastinal contours: Cardiomegaly. Bones: Unremarkable IMPRESSION: 1. Cardiomegaly and diffuse increased prominence of the pulmonary vasculature. 2. Lines and tubes as above. Repeat chest x-ray revealed: IMPRESSION: 1. Endotracheal tube tip 1.6 cm above the tyler; consider 2 cm retraction 2. Mild pulmonary vascular congestion. Moderate cardiomegaly. Repeat chest xry revealed: IMPRESSION: Endotracheal tube tip 1.6 cm above the tyler; consider 2 cm retraction Mild pulmonary vascular congestion. Moderate cardiomegaly. Repeat chest xry revealed: IMPRESSION: 1. Stable cardiomegaly, small left pleural effusion and mild diffuse increased prominence of the pulmonary vasculature. 2. Repositioned endotracheal tube as above. Remaining lines and tubes unchanged. Repeat chest xry revealed: IMPRESSION: 1. Cardiomegaly, stable diffuse increased prominence of the pulmonary vasculature and small bilateral pleural effusions. 2. Slight interval advancement of endotracheal tube as above. Remaining lines and tubes unchanged. Repeat chest xry revealed: IMPRESSION: 1. Slight interval decrease in diffuse increased prominence of the pulmonary vasculature. 2. Stable cardiomegaly and small left pleural effusion. 3. Lines and tubes unchanged. Repeat chest xry revealed: IMPRESSION: 1. Cardiomegaly and small left pleural effusion. 2. Lines and tubes unchanged. Repeat chest xry revealed: IMPRESSION: Stable lines and tubes. Similar lung aeration. Repeat chest xry revealed: IMPRESSION: Cardiomegaly and small left pleural effusion. Lines and tubes unchanged. Repeat chest xry revealed: IMPRESSION: Placement of a cardiac pacer, no pneumothorax is seen. Stable lines and tubes. Repeat chest xry revealed: IMPRESSION: 1. Worsening mixed opacities in the right lower lung. No other significant change from the previous study. Stable support devices. Repeat chest xry revealed: Heart is prominent in size with postsurgical changes, median sternotomy wires, and a single lead left cardiac defibrillator. Support lines and tubes appear unchanged in satisfactory in position. No sizable effusion or pneumothorax. Mild pulmonary vascular congestion. No significant interval change. Repeat chest xry revealed: IMPRESSION: 1. No significant change from the previous study. Stable support devices. Similar findings of heart failure including left pleural effusion. Repeat chest xry revealed: IMPRESSION: 1. No significant change from the previous study. Stable support devices. Similar findings of heart failure including trace left pleural effusion. Repeat chest xry revealed: Lines and Tubes: Unchanged. Left anterior chest wall cardiac pacing device. Lungs: Clear Pleura: No effusion. No pneumothorax. Cardiomediastinal contours: Cardiomegaly. Bones: Unremarkable IMPRESSION: 1. Cardiomegaly. 2. Lines and tubes unchanged. Repeat chest xry revealed: IMPRESSION: Lines and tubes in satisfactory position. No significant interval change. Repeat chest xry revealed: Lines and Tubes: ET tube and NG tube removed. Lungs: Congestion Pleura: No effusion. No pneumothorax. Cardiomediastinal contours: Cardiomegaly Bones: Unremarkable IMPRESSION: 1. Cardiomegaly with CHF. Repeat chest xry revealed: IMPRESSION: 1. Cardiomegaly. 2. Patchy bilateral airspace disease. Liver Ultrasound revealed: Hepatic steatosis. Trace right pleural effusion. Trace ascites Gallstones Bladder ultrasound revealed: IMPRESSION: 1. Cutler catheter in the bladder in the bladder is decompressed. Repeat Bladder Ultrasound revealed: Urinary bladder is unremarkable with prevoid volume of 29 mL. Urinary bladder wall measures 1.5 mm. Cutler catheter is noted. KUB revealed: IMPRESSION: Nonobstructive bowel gas pattern. Nasogastric tube tip in the stomach. Large stool burden. Repeat KUB revealed: Right lower extremity PICC line with tip projecting over the expected region of the intrahepatic IVC. Nasogastric tube projecting towards the distal stomach. Nonspecific bowel gas pattern. Cardiomegaly and left basilar airspace opacities, incompletely characterized. Atherosclerotic calcification disease. Left upper ext arterial duplex: IMPRESSION: No hemodynamically significant stenosis based on peak systolic velocity criteria. Left lower ext arterial duplex: IMPRESSION: There is no evidence for peripheral vascular insufficiency in the left lower extremity. No significant focal stenosis is identified. Liver Ultrasound revealed: Hepatic steatosis. Hepatomegaly. Cholelithiasis. CT of the head revealed: IMPRESSION: No acute intracranial abnormality. Repeat CT of head revealed: IMPRESSION: No acute intracranial abnormality. Repeat CT of Head revealed: IMPRESSION: No acute intracranial abnormality. Echocardiogram reported: lvef 15-20% dilated LV severe global dysfunction mild RV dysfunction biatrial enlargement mild moderate MAC, moderate mitral regurg mild to moderate aortic regug (images of echo reviewed and questioned presence of mitral ring and also some component (moderate of Mitral stenosis) EKG revealed sinus rhythm Telemetry revealed occasions of atrial fibrillation. There was occasional sustained ventricular tachycardia. EMS tele monitor revealed ventricular fibrillation for which the patient was shocked. Has remained sinus rhythm. Later with A-fib with MVR LHC revealed: Patent RICHMOND to LAD; Patent SVG to obtuse marginal; LVEF of 20% with increased EDP; Proximal disease in LAD/LCX RICHIE was performed: Consistent with severely reduced LVEF. Consistent with previously implanted Mitral ring, Up to moderate Mitral stenosis/Mitral Regurgitation and also Moderate Aortic insufficiency. Patient is a 54-year-old female who presented with witnessed syncope. She was found to have ventricular fibrillation for which was shocked. Later had repeated episode of sustained ventricular tachycardia. Patient has been kept in ICU. Does have baseline history of coronary artery disease for which has had bypass surgery. Left heart catheterization was performed which revealed patent RICHMOND and patent SVG. ACS is not considered at this point. It is of note that the patient's echocardiogram reveals significantly use systolic function. Valvular heart disease is considered. Findings are in favor of previously implanted mitral ring. By reviewing the echo images, component of up to moderate mitral stenosis could not be ruled out. LHC was performed that ruled out any active specific ischemia as an etiology for presentation. Is off Amiodarone for abnormal LFT. Being followed by Nephrology / Pulmonary / Neurology / GI ID. Tele has remained sinus rhythm. Had episode of a-fib with RVR. Was loaded with Digoxin. Dig level was performed at wrong timing (only 5 hours after the last Dig given). Dig toxicity is not considered. Patient is back to normal sinus rhythm. Has good kidney function. Repeat Dig level is acceptable level. s/p ICD implantation by EP. Intubated, later extubated. Syncope V-fib s/p shock Sustained V-tach Paroxysmal A-fib VHD, s/p Mitral ring Systolic heart failure Abnormal LFT, at a point resolved, later appeared again s/p ICD (Biotronik) implantation by EP (Dr Armstrong) s/p PRBC transfusion for significant anemia Hepatic Steatosis Gallstones Cardiac suggestion for management: Manage in Tele Follow up electrolytes and kidney function test and correct abnormalities Full anticoagulation (a-fib with high CHADS-Vasc score). s/p ICD implantation. To start Eliquis (after performance of possible PEG tube placement): for now on prophylactic dose of Lovenox Off Amio drip (worsened LFT) On Mexiletine If need for pressure support: use Phenyl Ephrine / vasopressin, keep MAP above 65 (for now off pressure support and tolerating) On Metoprolol to decrease risk of Vtach (as patient has ICD with bradycardia protection: may continue metoprolol in case of bradycardia, but hold: if hypotensive) May consider/add Esmolol for PVC/Vtach (if needed) Does not talk. Alert and oriented to self only. As she has not passed swallowing evaluation: IV Metoprolol if needed (HR above 100) s/p ICD (Biotronik) implantation by EP Off warfarin: Eliquis: 2.5 mg BID (only after INR is below 2.0): when she can swallow and after any predicted procedure completed (if needed to have PEG, to have it started after performing PEG): for now: Lovenox s/p PRBC transfusion for anemia Failed swallowing evaluation for now Pulmonary Follow up GI follow up for repeated failed swallowing evaluation Provide previous medical records from reaching out to previous hospitals in [facility]... Further evaluation and management depends on the above and clinical course. A total of 55 minutes was spent reviewing the patient record, examining the patient, making a diagnostic and therapeutic plan, discussing this plan with medical personnel, following up on diagnostic studies and following the patient for clinical stability excluding any and all procedures. At least 50% of this time was spent in direct, [id number] contact. Thank you for allowing me to participate in this patient's care. Further recommendations will depend on patient's clinical course. Please do not hesitate to contact me if you have any questions or concerns. This medical document was created using electronic medical record system with [employer] computerized dictation system. Although this document has been carefully reviewed, there may still be some phonetic and typographical errors. These areas are purely typographical due to the imperfection of the software programs, and do not reflect any compromise in the patient's medical care. Dietary Evaluation Review Comments: 1) TF Jevity 1.2Cal @ 55 ml/hr. x 24hr along with Pro-stat 1 pk daily. Start @ 20ml/hr, increase 10ml/hr Q4H until goal is reached. TF @ goal volume provides 1684 kcal (100% energy needs), 88 gm protein (100% protein needs), 1065 ml free water. 2) Water flush 100ml Q4H if allowed, adjust PRN 3) Advance to cardiac diet as medically feasible 4) Monitor NPO status, lab values, wt trend, I/O Expected Outcomes/Goals: To meet >75% estimated needs within 7 days Lab values to improve Fu 2-3 days Plan discussed with: Other (nurse) CORDELL VERA MD Nov 07, 2024 06:32
[2024-11-07 09:07] LABS: INR 1.06 (0.9-1.15); Partial Thromboplastin Time 25.6 SEC (24.5-34.5); Prothrombin Time 11.2 sec (9.3-11.8)
[2024-11-07 09:10] LABS: Alkaline Phosphatase 85 U/L (46-116); Anion Gap 11 (5-15); BUN/Creatinine Ratio 35.6 (10.0-20.0); Blood Urea Nitrogen 21 mg/dL (9-23); Magnesium 2.1 mg/dL (1.6-2.6); Potassium 3.8 mmol/L (3.5-5.1); Sodium 144 mmol/L (136-145)
[2024-11-07 09:11] LABS: Bilirubin, Total 1.1 mg/dL (0.2-1.0)
[2024-11-07 09:13] LABS: Alanine Aminotransferase 41 U/L (7-40); Albumin 3.1 g/dL (3.2-4.8); Calcium 8.5 mg/dL (8.7-10.4); Carbon Dioxide 19 mmol/L (20-31); Chloride 114 mmol/L (98-107); Glucose 130 mg/dL (74-106); Total Protein 5.3 g/dL (5.7-8.2)
[2024-11-07 09:47] LABS: Hematocrit 31.6 % (36.0-46.0); Hemoglobin 10.2 g/dL (12.2-16.2); Mean Corpuscular Hemoglobin 30.5 pg (28.0-32.0); Mean Corpuscular Volume 94.6 fL (80.0-100.0); Nucleated Red Blood Cells % 0.2 %
--- NOTE | 2024-11-07 09:57 | DVHPN2 ---
Progress Note - Dictate Date Seen: Nov 07, 2024 Has the PT tested + for MRSA If YES, has PT been informed?: No Medical Necessity Reason Pt with a Central, PICC or Fol: Yes The following are medically ne: PICC Line, Cutler Catheter Reason for cutler catheter: Strict I&O vital signs Vital Sign Date Time Temp Pulse Resp B/P (MAP) Pulse Ox O2 Delivery O2 Flow Rate FiO2 11/07/24 08:00 Room Air* 0 21 11/07/24 05:00 98.4 62 18 108/66 (80) 97 98.4 Total Intake and Output 11/06/24 11/06/24 11/07/24 15:00 23:00 07:00 Intake Total 0 ml Output Total 175 ml Balance -175 ml medications Current Medications Medications Dose Ordered Sig/Liliam Route Start Time Stop Time Status Last Admin Dose Admin Amino Acids 0 ml @ 0 mls/hr PER PHARMACY IV 10/15/24 18:45 Cancel Dextrose 50 ml UD IV 10/16/24 09:30 Cancel Polyethylene Glycol 17 gm DAILYPRN PRN GT 10/17/24 16:45 10/19/24 05:54 17 GM Vancomycin HCl 0 ml @ 0 mls/hr UD IV 10/19/24 14:00 Cancel Metoclopramide HCl 5 mg BID IV 10/25/24 10:00 Hold 10/25/24 21:32 5 MG Sodium Chloride 10 ml QSHIFT@10,22 IV 10/26/24 22:00 11/06/24 22:06 10 ML Metoprolol Tartrate 12.5 mg BID PO 10/28/24 22:00 10/30/24 09:24 12.5 MG Metoprolol Tartrate 2.5 mg Q6HPRN PRN IV 10/31/24 09:15 Diagnostic Test (Pha) 1 strip Q6HR 11/01/24 18:00 11/07/24 05:31 1 STRIP Insulin Human Regular FOLLOW SLIDING SCALE Q6HR SC 11/01/24 18:00 11/07/24 02:28 2 UNITS Dextrose 50 ml UD IV 11/01/24 18:00 Amino Acids 0 ml @ 0 mls/hr PER PHARMACY IV 11/04/24 22:00 Amino Acid Protein 30 ml DAILY PO 11/04/24 10:00 Mexiletine HCl 150 mg TID PO 11/04/24 14:00 Dextrose 1,000 ml @ 50 mls/hr Q20H IV 11/04/24 12:45 11/06/24 04:27 50 MLS/HR Enoxaparin Sodium 40 mg DAILY SC 11/06/24 10:00 11/06/24 10:13 40 MG Fat Emulsion Intravenous 150 ml/Potassium Acetate 60 meq/ Calcium Gluconate 2.3 meq/ Multivitamins 10 ml/Amino Acids/ Dextrose/Purified Water 1,594.9462 ml @ 66 mls/hr [id number] IV 11/06/24 22:00 11/07/24 21:59 11/06/24 21:55 66 MLS/HR Hydrocortisone Sodium Succinate 50 mg BID IV 11/06/24 22:00 11/06/24 22:06 50 MG Fat Emulsion Intravenous 200 ml/Potassium Acetate 60 meq/ Potassium Phosphate 22 meq/ Calcium Gluconate 2.3 meq/Magnesium Sulfate 2 meq/ Multivitamins 10 ml/Amino Acids/ Dextrose/Purified Water 1,650.4462 ml @ 69 mls/hr [id number] IV 11/07/24 22:00 11/08/24 21:59 objective General Appearance: no distress HEENT: EOMI, PERRLA, normal external inspect of ears, no icterus, no nasal drainage Neck: no carotid bruit, no jugular venous distention (JVD), no lymphadenopathy Chest: normal thorax Respiratory: Intubated, clear to auscultation, normal air movement Cardiovascular: regular rate and rhythm, no diastolic murmur, no jugular venous distention (JVD), no rub, no systolic murmur Abdominal: soft, no hepatomegaly, no mass, no splenomegaly, no tenderness Genitourinary: grossly normal external Musculoskeletal: no joint tenderness, no swelling Extremities: normal pulses, no calf tenderness, no clubbing, no cyanosis, no edema Skin: no bruising, no jaundice, no rash Neurological: No focal deficit laboratory and microbiology Laboratory Tests 11/07/24 08:32 Test 11/07/24 08:32 Range/Units Serum Glucose 130 H 74-106 mg/dL Problem List Cardiac Arrest with Ventricular Fibrillation Assessment: Patient experienced cardiac arrest with ventricular fibrillation on 10/07/24, witnessed by family members who initiated CPR. EMS found the patient in ventricular fibrillation and administered shock therapy. Rhythm strip analysis confirmed ventricular fibrillation. Patient required intubation and sedation upon ED arrival. Currently admitted to ICU for close observation. Cardiology has been consulted and plans for AICD placement, likely on Tuesday. Infectious disease clearance has been obtained for the AICD procedure, addressing initial concerns of leukocytosis which is now improving. Status post-cardiac arrest. Plan: - Continue ICU monitoring - Proceed with AICD placement as planned (likely Tuesday), cleared by infectious disease. - Maintain intubation and sedation until AICD placement - Continue Heparin drip for paroxysmal atrial fibrillation - Continue Mexitil - DC amiodarone due to transaminitis - added esmolol drip per Cardiology for AFib and added push doses of digoxin Coronary Artery Disease Assessment: Patient with history of 2-vessel CABG (Coronary Artery Bypass Grafting). Surgical intervention previously performed to address significant coronary artery stenosis. Plan: - Continue medical management - Follow up with cardiology for ongoing coronary artery disease management Acute and Chronic Systolic Heart Failure Assessment: Patient has acute and chronic systolic heart failure with severely reduced left ventricular function. Ejection fraction is estimated at 15-20%. RICHIE findings are consistent with severely reduced left ventricular ejection fraction, previously implanted mitral ring, up to moderate mitral stenosis and regurgitation, and moderate aortic insufficiency. Plan: - Continue cardiology consultation - continue IV diuretics (IV Lasix) - Monitor renal function Acute Hypoxic Respiratory Failure Assessment: Patient is currently intubated due to acute hypoxic respiratory failure. Dr. Downey from pulmonology is managing this aspect of care. Plan: - Maintain current intubation as per pulmonology recommendation - Proceed with CPAP trials when deemed appropriate by pulmonology Transaminitis Assessment: Patient has elevated liver function tests, likely secondary to amiodarone use. Cardiology has discontinued amiodarone in response. Plan: - Monitor liver function tests - Amiodarone discontinued as per cardiology Enterobacter PNA Assessment: Sputum culture positive for Enterobacter. Plan: - Continue treatment with Eratapenem to complete 10 days regimen -Infectious disease consult Hemodynamic Support Assessment: Patient requires vasopressor support for hemodynamic stability. Plan: - Continue vasopressin - Continue neosynephrine Paroxysmal a fib -DC amiodarone -continue with heparin gtt Shock liver GI consult, trend liver enzymes, hepatitis panel was negative. Ultrasound of the liver had no acute findings. Assessment/Plan Subjective: Patient is awake and alert. Objective: Patient states she consents to a PEG tube placement. Patient was admitted status post cardiac arrest. Patient is post AICD placement. Patient's elevated liver enzymes have normalized. Patient has failed to swallow evaluations. Patient was seen by GI. Plan: Plan for PEG tube placement per GI. DC planning once PEG tube is placed. Looking for subacute facility for rehab. Dietary Evaluation Review Comments: 1) TF Jevity 1.2Cal @ 55 ml/hr. x 24hr along with Pro-stat 1 pk daily. Start @ 20ml/hr, increase 10ml/hr Q4H until goal is reached. TF @ goal volume provides 1684 kcal (100% energy needs), 88 gm protein (100% protein needs), 1065 ml free water. 2) Water flush 100ml Q4H if allowed, adjust PRN 3) Advance to cardiac diet as medically feasible 4) Monitor NPO status, lab values, wt trend, I/O Expected Outcomes/Goals: To meet >75% estimated needs within 7 days Lab values to improve Fu 2-3 days Plan discussed with: Patient, Other BRODIE GARVIN [employer] Nov 07, 2024 09:57
--- NOTE | 2024-11-07 11:20 | DVHPN2 ---
Progress Note Date Seen: Nov 07, 2024 Resident Creating Document: ETHAN SWAN RESIDENT Has the PT tested + for MRSA If YES, has PT been informed?: No Medical Necessity Reason Pt with a Central, PICC or Fol: Yes The following are medically ne: PICC Line, Cutler Catheter Reason for cutler catheter: Strict I&O Subjective Review of Systems Patient seen and examined at bedside Last bowel movement today x3, soft Remains on TPN Pending repeat swallow evaluation Somewhat improved mentation Objective vital signs Vital Sign Date Time Temp Pulse Resp B/P (MAP) Pulse Ox O2 Delivery O2 Flow Rate FiO2 11/07/24 10:00 71 108/66 11/07/24 08:00 Room Air* 0 21 11/07/24 05:00 98.4 18 97 98.4 Total Intake and Output 11/06/24 11/06/24 11/07/24 15:00 23:00 07:00 Intake Total 0 ml Output Total 175 ml Balance -175 ml medications Current Medications Medications Dose Ordered Sig/Liliam Route Start Time Stop Time Status Last Admin Dose Admin Amino Acids 0 ml @ 0 mls/hr PER PHARMACY IV 10/15/24 18:45 Cancel Dextrose 50 ml UD IV 10/16/24 09:30 Cancel Polyethylene Glycol 17 gm DAILYPRN PRN GT 10/17/24 16:45 10/19/24 05:54 17 GM Vancomycin HCl 0 ml @ 0 mls/hr UD IV 10/19/24 14:00 Cancel Metoclopramide HCl 5 mg BID IV 10/25/24 10:00 Hold 10/25/24 21:32 5 MG Sodium Chloride 10 ml QSHIFT@10,22 IV 10/26/24 22:00 11/06/24 22:06 10 ML Metoprolol Tartrate 12.5 mg BID PO 10/28/24 22:00 10/30/24 09:24 12.5 MG Metoprolol Tartrate 2.5 mg Q6HPRN PRN IV 10/31/24 09:15 Diagnostic Test (Pha) 1 strip Q6HR 11/01/24 18:00 11/07/24 05:31 1 STRIP Insulin Human Regular FOLLOW SLIDING SCALE Q6HR SC 11/01/24 18:00 11/07/24 02:28 2 UNITS Dextrose 50 ml UD IV 11/01/24 18:00 Amino Acids 0 ml @ 0 mls/hr PER PHARMACY IV 11/04/24 22:00 Amino Acid Protein 30 ml DAILY PO 11/04/24 10:00 Mexiletine HCl 150 mg TID PO 11/04/24 14:00 Dextrose 1,000 ml @ 50 mls/hr Q20H IV 11/04/24 12:45 11/06/24 04:27 50 MLS/HR Enoxaparin Sodium 40 mg DAILY SC 11/06/24 10:00 11/06/24 10:13 40 MG Fat Emulsion Intravenous 150 ml/Potassium Acetate 60 meq/ Calcium Gluconate 2.3 meq/ Multivitamins 10 ml/Amino Acids/ Dextrose/Purified Water 1,594.9462 ml @ 66 mls/hr [id number] IV 11/06/24 22:00 11/07/24 21:59 11/06/24 21:55 66 MLS/HR Hydrocortisone Sodium Succinate 50 mg BID IV 11/06/24 22:00 11/06/24 22:06 50 MG Fat Emulsion Intravenous 200 ml/Potassium Acetate 60 meq/ Potassium Phosphate 22 meq/ Calcium Gluconate 2.3 meq/Magnesium Sulfate 2 meq/ Multivitamins 10 ml/Amino Acids/ Dextrose/Purified Water 1,650.4462 ml @ 69 mls/hr [id number] IV 11/07/24 22:00 11/08/24 21:59 Examination General Appearance: Nonverbal Head Exam: Normal inspection. Constricted equal and reactive pupils Neck Exam: Normal inspection. Non-tender. Normal alignment Pulmonary/Respiratory: Chest non-tender. Trace crackles Abdominal Exam: Normal bowel sounds. Soft. Nontender Skin Exam: Normal inspection. Normal color. Warm. Dry laboratory and microbiology Laboratory Tests 11/07/24 08:32 Test 11/07/24 08:32 Range/Units Serum Glucose 130 H 74-106 mg/dL Microbiology Date/Time Source Procedure Growth Status 10/20/24 04:00 Sputum Gram Stain - Final Complete 10/20/24 04:00 Respiratory Culture - Final Enterobacter cloacae Yeast, not Ilda albicans Complete 10/20/24 01:03 Urine - Cutler Port Urine Culture - Final Yeast, not Ilda albicans Complete 10/19/24 13:02 Blood Blood Culture - Final NO GROWTH AFTER 5 DAYS OF INCUBATION. Complete 10/07/24 16:50 Nose MRSA Screen - Final Complete Labs and/or images reviewed: Labs reviewed by me, Image(s) reviewed by me Problem List/Assessment/Plan Problem List/Assessment/Plan Questionable acute cholecystitis Ventricular fibrillation S/p cardiopulmonary arrest with shock Heart failure with reduced ejection fraction 15-20% Metabolic versus hypoxic encephalopathy Acute hepatocellular injury likely shock liver Cholelithiasis without acute inflammation Nonalcoholic fatty liver disease with steatohepatitis Community-acquired pneumonia growing Enterobacter Plan: Tapered hydrocortisone to q.12 hours on 11/06/2024 Pending repeat swallow evaluation PEG tube placement on Tuesday Liver function tests downtrending appropriately Keep PT/INR therapeutic Hemoglobin stable, transfuse if HB 7 or less Continue tube feedings as patient failed swallow eval Decreased metoclopramide to 5 mg IV b.i.d. JAIDEN positive, outpatient follow up with GI recommended for further workup Thank you so much for the opportunity to consult on your patient. GI team will follow the patient. In case of any questions or concerns please feel free to reach out. Plan discussed with Dr. Anglin Plan discussed with: Other (RN) My Orders My Orders Orders - ETHAN SWAN RESIDENT Procedure Category Date Status Time Hydrocortisone PHA 11/06/24 In Process Succinate Inj 22:00 Complete Blood Count LAB 11/07/24 In Process 09:05 Rbc Morphology LAB 11/07/24 In Process 08:32 Dietary Evaluation Review Comments: 1) TF Jevity 1.2Cal @ 55 ml/hr. x 24hr along with Pro-stat 1 pk daily. Start @ 20ml/hr, increase 10ml/hr Q4H until goal is reached. TF @ goal volume provides 1684 kcal (100% energy needs), 88 gm protein (100% protein needs), 1065 ml free water. 2) Water flush 100ml Q4H if allowed, adjust PRN 3) Advance to cardiac diet as medically feasible 4) Monitor NPO status, lab values, wt trend, I/O Expected Outcomes/Goals: To meet >75% estimated needs within 7 days Lab values to improve Fu 2-3 days ETHAN SWAN RESIDENT Nov 07, 2024 11:20
[2024-11-07 11:25] LABS: Anisocytosis Slight
[2024-11-07] MEDS: POTASSIUM PHOSPHATE 22 MEQ in SODIUM CHL 0.9% 100 ML IV ONE (12:12)
--- NOTE | 2024-11-07 19:48 | DVHPN2 ---
Progress Note - Dictate Date Seen: Nov 07, 2024 Has the PT tested + for MRSA If YES, has PT been informed?: No Medical Necessity Reason Pt with a Central, PICC or Fol: Yes The following are medically ne: PICC Line, Cutler Catheter Reason for cutler catheter: Strict I&O vital signs Vital Sign Date Time Temp Pulse Resp B/P (MAP) Pulse Ox O2 Delivery O2 Flow Rate FiO2 11/07/24 17:30 97.0 55 16 130/73 (92) 97 97.0 11/07/24 08:00 Room Air* 0 21 Total Intake and Output 11/06/24 11/06/24 11/07/24 15:00 23:00 07:00 Intake Total 0 ml Output Total 175 ml Balance -175 ml medications Current Medications Medications Dose Ordered Sig/Liliam Route Start Time Stop Time Status Last Admin Dose Admin Amino Acids 0 ml @ 0 mls/hr PER PHARMACY IV 10/15/24 18:45 Cancel Dextrose 50 ml UD IV 10/16/24 09:30 Cancel Polyethylene Glycol 17 gm DAILYPRN PRN GT 10/17/24 16:45 10/19/24 05:54 17 GM Vancomycin HCl 0 ml @ 0 mls/hr UD IV 10/19/24 14:00 Cancel Metoclopramide HCl 5 mg BID IV 10/25/24 10:00 Hold 10/25/24 21:32 5 MG Sodium Chloride 10 ml QSHIFT@10,22 IV 10/26/24 22:00 11/07/24 11:20 10 ML Metoprolol Tartrate 12.5 mg BID PO 10/28/24 22:00 10/30/24 09:24 12.5 MG Metoprolol Tartrate 2.5 mg Q6HPRN PRN IV 10/31/24 09:15 Diagnostic Test (Pha) 1 strip Q6HR 11/01/24 18:00 11/07/24 18:00 1 STRIP Insulin Human Regular FOLLOW SLIDING SCALE Q6HR SC 11/01/24 18:00 11/07/24 02:28 2 UNITS Dextrose 50 ml UD IV 11/01/24 18:00 Amino Acids 0 ml @ 0 mls/hr PER PHARMACY IV 11/04/24 22:00 Amino Acid Protein 30 ml DAILY PO 11/04/24 10:00 Mexiletine HCl 150 mg TID PO 11/04/24 14:00 Dextrose 1,000 ml @ 50 mls/hr Q20H IV 11/04/24 12:45 11/06/24 04:27 50 MLS/HR Enoxaparin Sodium 40 mg DAILY SC 11/06/24 10:00 11/06/24 10:13 40 MG Fat Emulsion Intravenous 150 ml/Potassium Acetate 60 meq/ Calcium Gluconate 2.3 meq/ Multivitamins 10 ml/Amino Acids/ Dextrose/Purified Water 1,594.9462 ml @ 66 mls/hr [id number] IV 11/06/24 22:00 11/07/24 21:59 11/06/24 21:55 66 MLS/HR Hydrocortisone Sodium Succinate 50 mg BID IV 11/06/24 22:00 11/07/24 11:20 50 MG Fat Emulsion Intravenous 200 ml/Potassium Acetate 60 meq/ Potassium Phosphate 22 meq/ Calcium Gluconate 2.3 meq/Magnesium Sulfate 2 meq/ Multivitamins 10 ml/Amino Acids/ Dextrose/Purified Water 1,650.4462 ml @ 69 mls/hr [id number] IV 11/07/24 22:00 11/08/24 21:59 laboratory and microbiology Laboratory Tests 11/07/24 08:32 Test 11/07/24 08:32 Range/Units Serum Glucose 130 H 74-106 mg/dL Assessment/Plan impression s/p cardiac arrest VT CPR <5 min elevated troponin acute resp failure atelectases pt seen and examined events s/p extubation low oxygen requirements on room air no distress s/p pacemaker management plan supplemental oxygen as needed titrate to maintain sats 90% or above incentive spirometry aspiration precautions cont abx monitor cx monitor labs renal function daily abg and CXR dvt proph/on aggressive physical therapy f/u cardiology Dietary Evaluation Review Comments: 1) TF Jevity 1.2Cal @ 55 ml/hr. x 24hr along with Pro-stat 1 pk daily. Start @ 20ml/hr, increase 10ml/hr Q4H until goal is reached. TF @ goal volume provides 1684 kcal (100% energy needs), 88 gm protein (100% protein needs), 1065 ml free water. 2) Water flush 100ml Q4H if allowed, adjust PRN 3) Advance to cardiac diet as medically feasible 4) Monitor NPO status, lab values, wt trend, I/O Expected Outcomes/Goals: To meet >75% estimated needs within 7 days Lab values to improve Fu 2-3 days Plan discussed with: Patient BELLO ROTHMAN MD Nov 07, 2024 19:48
[2024-11-07] MEDS: TPN PER PHARMACY IV NR (21:49)
--- NOTE | 2024-11-07 23:40 | DVHPN2 ---
Progress Note - Dictate Date Seen: Nov 07, 2024 Has the PT tested + for MRSA If YES, has PT been informed?: No Medical Necessity Reason Pt with a Central, PICC or Fol: Yes The following are medically ne: PICC Line, Cutler Catheter Reason for cutler catheter: Strict I&O Subjective Ms. Smith is a 54 years old female who was brought to the [facility] on 10/07[facility]2024 with a chief complaint of cardiopulmonary arrest/status post CPR. I have seen and examined the patient, she is awake, she is oriented to person, her voice is better but overall still very weak, she failed swallow evaluation today n She needs assistance for reposition, she can not sit up Blood culture, 10/09/2024: No growth Blood culture, 10/19/2024: UDS, 10/07/2024: Negative Urinalysis, 10/07/2024: Leukocyte esterase: Negative WBC/HB/PLT/MCV, 10/09/2024: 20/8.8/219/94.6, 10/10/2024: 21.2/8.7/232/92.2 PT/INR/PTT, 10/08/2024: 12.4/1.19/72.7, 10/09/2024: 13.1/1.26/68.9, 10/10/2024: 14.4/2/1.38/35.3 CMP, 10/08/2024: Unremarkable Troponin one high sensitivity, 10/07/2024: 141, 138, 117 TBI/AST/ALT/AP, 10/10/2024: 0.5/538/168/144, 10/11/2024: 0.6/293/199/152, 10/14/2024: 0.8/68/74/124 TG/HDL/LDL/HDL, 10/07/24: 71/66/31/21 EKG 10/10/2024: Atrial fibrillation EKG, 10/15/2024: Atrial fibrillation Echocardiogram, 10/07/2024: lvef 15-20% dilated LV severe global dysfunction mild RV dysfunction biatrial enlargement mild moderate MAC, moderate mitral regurg mild to moderate aortic regug RICHIE, 10/08/2024: 1. Left ventricle: Dilated LV was seen. LVEF was 25%. There was diffuse hypokinesis of left ventricle. 2. Right ventricle: RV was mildly dilated. 3. Left atrium: LA enlarged 4. Right atrium: RA was enlarged. 5. Mitral valve: Mitral was thickened with reduced opening. Moderate Mitral regurgitation was seen. Planinomentry of valve (TTE images also obtained) revealed MVA of 2.1 cm. Mean pressure gradient (obtained from limited TTE images) was 5. Images are consistent with previously implanted Ring in Mitral position. Consistent with up to Moderate Mitral stenosis. . There was no vegetation 6. Left atrial appendage: No evidence of thrombus. 7. Aortic valve: Trileaflet valve. No stenosis. Up to moderate Aortic Insufficiency was seen. There was no vegetation 8. Pulmonic valve: Trivial pulmonic insufficiency. No significant stenosis. 9. Tricuspid valve: Mild tricuspid regurgitation. There was no vegetation 10. Interatrial septum: Negative color flow for right to left shunt was observed. Bubble study was performed: negative for shunt 11. Pericardium: No significant effusion. 12. Thoracic aorta: No significant plaquing. Chest x-ray, 10/27/2024: 1. Cardiomegaly, stable diffuse increased prominence of the pulmonary vasculature and small bilateral pleural effusions. 2. Slight interval advancement of endotracheal tube as above. Remaining lines and tubes unchanged. CT head, 10/07/2024: No acute intracranial abnormality General: the patient is well developed and nourished. No acute distress. Intubated CT head, 10/07/2024: No acute intracranial abnormality. CT head, 10/11/2024: No acute intracranial abnormality CT head, 11/01/2024: As above, the other systems are negative vital signs Vital Sign Date Time Temp Pulse Resp B/P (MAP) Pulse Ox O2 Delivery O2 Flow Rate FiO2 11/07/24 21:00 97.4 55 16 122/86 (98) 95 97.4 11/07/24 08:00 Room Air* 0 21 Total Intake and Output 11/06/24 11/06/24 11/07/24 15:00 23:00 07:00 Intake Total 0 ml Output Total 175 ml Balance -175 ml medications Current Medications Medications Dose Ordered Sig/Liliam Route Start Time Stop Time Status Last Admin Dose Admin Amino Acids 0 ml @ 0 mls/hr PER PHARMACY IV 10/15/24 18:45 Cancel Dextrose 50 ml UD IV 8/19/25 09:30 Cancel Polyethylene Glycol 17 gm DAILYPRN PRN GT 10/17/24 16:45 10/19/24 05:54 17 GM Vancomycin HCl 0 ml @ 0 mls/hr UD IV 10/19/24 14:00 Cancel Metoclopramide HCl 5 mg BID IV 10/25/24 10:00 Hold 10/25/24 21:32 5 MG Sodium Chloride 10 ml QSHIFT@10,22 IV 10/26/24 22:00 11/07/24 21:50 10 ML Metoprolol Tartrate 12.5 mg BID PO 10/28/24 22:00 10/30/24 09:24 12.5 MG Metoprolol Tartrate 2.5 mg Q6HPRN PRN IV 10/31/24 09:15 Diagnostic Test (Pha) 1 strip Q6HR 11/01/24 18:00 11/07/24 18:00 1 STRIP Insulin Human Regular FOLLOW SLIDING SCALE Q6HR SC 11/01/24 18:00 11/07/24 02:28 2 UNITS Dextrose 50 ml UD IV 11/01/24 18:00 Amino Acids 0 ml @ 0 mls/hr PER PHARMACY IV 11/04/24 22:00 Amino Acid Protein 30 ml DAILY PO 11/04/24 10:00 Mexiletine HCl 150 mg TID PO 11/04/24 14:00 Dextrose 1,000 ml @ 50 mls/hr Q20H IV 11/04/24 12:45 11/07/24 21:05 50 MLS/HR Enoxaparin Sodium 40 mg DAILY SC 11/06/24 10:00 11/06/24 10:13 40 MG Hydrocortisone Sodium Succinate 50 mg BID IV 11/06/24 22:00 11/07/24 21:47 50 MG Fat Emulsion Intravenous 200 ml/Potassium Acetate 60 meq/ Potassium Phosphate 22 meq/ Calcium Gluconate 2.3 meq/Magnesium Sulfate 2 meq/ Multivitamins 10 ml/Amino Acids/ Dextrose/Purified Water 1,650.4462 ml @ 69 mls/hr [id number] IV 11/07/24 22:00 11/08/24 21:59 11/07/24 21:49 69 MLS/HR objective The patient is well-nourished and well-developed with no distress. The patient is intubated MENTAL STATUS: Subjective CRANIAL NERVES: Pupils are equal, round and reactive. EOMs full and conjugate. Facial sensation intact in all three divisions bilaterally. Mandibular strength intact. Facial muscles symmetrical and strength intact. SENSATION: Okay to pinprick and light touch MOTOR: Normal tone in the upper and lower extremity. Normal muscle bulk. No fasciculations. She move the arms and legs REFLEXES: Deep tendon reflexes are symmetrical. No pathological reflexes. CEREBELLAR/COORDINATION: Deferred GAIT/STATION: deferred. laboratory and microbiology Laboratory Tests 11/07/24 08:32 Test 11/07/24 08:32 Range/Units Serum Glucose 130 H 74-106 mg/dL Problem List Cardiopulmonary arrest Status post CPR Metabolic encephalopathy Hypoxic encephalopathy Congestive heart failure Leukocytosis/sepsis/septic shock Respiratory failure Elevated liver function tests AFib S/P pacemaker insertion on 10/17/2024 ? Chronic organic brain syndrome Assessment/Plan Monitoring Supportive treatment Telemetry DVT prophylaxis GI prophylaxis Cardiology on case Pulmonology on case Nephrology on case Need more history This medical document was created using an electronic medical record system with [employer] dictation system. Although this document has been carefully reviewed, there may still be some phonetic and typographical errors. These areas are purely typographical due to imperfections of the software programs, and do not reflect any compromise in the patient's medical care. Prognosis poor Dietary Evaluation Review Comments: 1) TF Jevity 1.2Cal @ 55 ml/hr. x 24hr along with Pro-stat 1 pk daily. Start @ 20ml/hr, increase 10ml/hr Q4H until goal is reached. TF @ goal volume provides 1684 kcal (100% energy needs), 88 gm protein (100% protein needs), 1065 ml free water. 2) Water flush 100ml Q4H if allowed, adjust PRN 3) Advance to cardiac diet as medically feasible 4) Monitor NPO status, lab values, wt trend, I/O Expected Outcomes/Goals: To meet >75% estimated needs within 7 days Lab values to improve Fu 2-3 days Plan discussed with: CAROLINE Shaw MD Nov 07, 2024 23:40
[2024-11-08] VITALS (8 sets, daily range): BP systolic 103–128; BP diastolic 46–83; PULSE 55–58; RESP 16–20; TEMP 97.4–97.9; O2SAT 95–97
[2024-11-08 06:20] LABS: Alanine Aminotransferase 32 U/L (7-40); Alkaline Phosphatase 82 U/L (46-116); Anion Gap 12 (5-15); BUN/Creatinine Ratio 40.8 (10.0-20.0); Bilirubin, Total 1.0 mg/dL (0.2-1.0); Blood Urea Nitrogen 20 mg/dL (9-23); Magnesium 1.9 mg/dL (1.6-2.6); Potassium 4.1 mmol/L (3.5-5.1); Sodium 141 mmol/L (136-145)
[2024-11-08 06:30] LABS: Albumin 3.1 g/dL (3.2-4.8); Calcium 8.3 mg/dL (8.7-10.4); Carbon Dioxide 18 mmol/L (20-31); Chloride 111 mmol/L (98-107); Glucose 145 mg/dL (74-106); Total Protein 5.2 g/dL (5.7-8.2)
[2024-11-08 06:36] LABS: INR 1.02 (0.9-1.15); Prothrombin Time 10.8 sec (9.3-11.8)
--- NOTE | 2024-11-08 07:45 | DVHPN2 ---
Progress Note - Dictate Date Seen: Nov 08, 2024 Has the PT tested + for MRSA If YES, has PT been informed?: No Medical Necessity Reason Pt with a Central, PICC or Fol: Yes The following are medically ne: PICC Line, Cutler Catheter Reason for cutler catheter: Strict I&O vital signs Vital Sign Date Time Temp Pulse Resp B/P (MAP) Pulse Ox O2 Delivery O2 Flow Rate FiO2 11/08/24 05:00 97.5 55 16 103/56 (72) 97 97.5 11/07/24 20:00 Room Air* 0 21 Total Intake and Output 11/07/24 11/07/24 11/08/24 15:00 23:00 07:00 Intake Total 1581 ml 100 ml Output Total 425 ml 350 ml Balance 1156 ml -250 ml medications Current Medications Medications Dose Ordered Sig/Liliam Route Start Time Stop Time Status Last Admin Dose Admin Amino Acids 0 ml @ 0 mls/hr PER PHARMACY IV 10/15/24 18:45 Cancel Dextrose 50 ml UD IV 10/16/24 09:30 Cancel Polyethylene Glycol 17 gm DAILYPRN PRN GT 10/17/24 16:45 10/19/24 05:54 17 GM Vancomycin HCl 0 ml @ 0 mls/hr UD IV 10/19/24 14:00 Cancel Metoclopramide HCl 5 mg BID IV 10/25/24 10:00 Hold 10/25/24 21:32 5 MG Sodium Chloride 10 ml QSHIFT@10,22 IV 10/26/24 22:00 11/07/24 21:50 10 ML Metoprolol Tartrate 12.5 mg BID PO 10/28/24 22:00 10/30/24 09:24 12.5 MG Metoprolol Tartrate 2.5 mg Q6HPRN PRN IV 10/31/24 09:15 Diagnostic Test (Pha) 1 strip Q6HR 11/01/24 18:00 11/08/24 06:00 1 STRIP Insulin Human Regular FOLLOW SLIDING SCALE Q6HR SC 11/01/24 18:00 11/07/24 02:28 2 UNITS Dextrose 50 ml UD IV 11/01/24 18:00 Amino Acids 0 ml @ 0 mls/hr PER PHARMACY IV 11/04/24 22:00 Amino Acid Protein 30 ml DAILY PO 11/04/24 10:00 Mexiletine HCl 150 mg TID PO 11/04/24 14:00 Dextrose 1,000 ml @ 50 mls/hr Q20H IV 11/04/24 12:45 11/07/24 21:05 50 MLS/HR Enoxaparin Sodium 40 mg DAILY SC 11/06/24 10:00 11/06/24 10:13 40 MG Hydrocortisone Sodium Succinate 50 mg BID IV 11/06/24 22:00 11/07/24 21:47 50 MG Fat Emulsion Intravenous 200 ml/Potassium Acetate 60 meq/ Potassium Phosphate 22 meq/ Calcium Gluconate 2.3 meq/Magnesium Sulfate 2 meq/ Multivitamins 10 ml/Amino Acids/ Dextrose/Purified Water 1,650.4462 ml @ 69 mls/hr [id number] IV 11/07/24 22:00 11/08/24 21:59 11/07/24 21:49 69 MLS/HR laboratory and microbiology Laboratory Tests 11/08/24 05:05 11/07/24 08:32 Test 11/08/24 05:05 Range/Units Serum Glucose 145 H 74-106 mg/dL Assessment/Plan In Tele. Failed swallowing evaluation. Still on TPN. To go for PEG implantation tomorrow Patient is a 54-year-old female who was brought to the hospital for witnessed syncope. She is intubated and is being managed in ICU. Information was obtained by reviewing the chart and communicating with patient's son (over the phone). Family recognized witnessed syncope and started CPR and called EMS. Reportedly, EMS found the patient in ventricular fibrillation and shocked the patient and brought the patient to the hospital. Patient was intubated in emergency room and transferred to ICU. Patient was on amiodarone drip. Later the patient had ventricular tachycardia (Systane). High sensitive troponin had been minimally/flatly elevated. Presentation was not in favor of acute coronary syndrome. Cardiology is involved for cardiac aspects of care. NAD Does not talk. Alert and oriented to self only. No JVD. Mucosa pale. No carotid bruit. Scattered rhonchi in the lungs is heard. Cardiac: Regular, no thrill. Systolic murmur 2/6 in apex is heard. Abdomen is soft. No edema in extremities. Past medical history as per son: Congenital heart disease, status post bypass WBC: 14.5 - 11.9 - 18.8 - 20.0 - 21.2 - 14.3 - 10.3 - 8.9 - 9.2 - 11.1 - 12.1 - 10.8 - 12.0 - 9.9 - 15.4 - 14.8 - 12.1 - 10.5 - 5.8 - 5.3 - 4.2 - 5.8 - 4.1 - 7.0 - 9.3 - 8.3 - 11.5 - 8.4 - 8.4 - 5.4 - 5.7 - 8.4 Hemoglobin: 10.1 - 9.6 - 9.2 - 8.8 - 8.7 - 8.0 - 8.3 - 8.5 - 7.8 - 10.2 - 10.7 - 9.9 - 9.7 - 9.3 - 9.3 - 8.6 - 8.1 - 7.4 - 7.5 - 7.4 - 7.5 - 7.2 - 7.7 - 7.0 - (post PRBC transfusion) 10.4 - 10 - 9.5 - 10.0 - 9.2 - 9.8 -9.6 - 9.7 - 10.2 Creatinine: 0.95 - 0.93 - 0.87 - 0.83 - 0.83 - 0.76 - 0.68 - 0.72 - 0.79 - 0.76 - 0.80 - 0.84 - 0.61 - 0.65 - 0.74 - 0.64 - 0.73 - 0.82 - 0.88 - 1.03 - 0.99 - 0.85 - 0.87 - 0.79 - 1.12 - 1.15 - 1.04 - 0.96 - 0.94 - 0.93 - 0.78 - 0.71 - 0.68 - 0.61 - 0.59 - 0.49 Potassium: 3.4 - 4.0 - 4.6 - 3.5 - 3.3 - 4.1 - 3.7 - 3.2 - 3.7 - 4.0 - 3.2 - 3.4 - 3.9 - 4.2 - 3.3 - 3.8 - 3.6 - 3.4 - 4.2 - 3.8 - 4.5 - 4.1 - 3.5 - 4.2 - 3.3 - 2.6 - 3.5 - 3.8 - 2.4 - 2.9 - 4.6 - 2.8 - 4.8 - 4.9 - 3.4 - 3.1 - 3.7 - 4.4 - 3.7 - 3.7 - 3.1 - 3.0 - 3.8 - 4.4 - 3.8 - 4.1 Magnesium: 2.0 - 1.6 - 2.0 - 3.0 - 1.5 - 1.9 - 2.1 - 1.8 - 2.0 - 1.9 - 1.9 - 2.6 - 2.0 - 1.8 - 1.6 - 2.0 - 2.2 - 1.9 - 2.3 - 2.2 - 2.2 - 2.1 - 2.1 - 1.9 2.7 - 2.6 - 2.3 - 2.4 - 2.5 - 2.3 - 2.5 - 2.3 - 2.3 - 2.4 - 2.1 - 1.9 Troponin (high sensitive): 141 - 138 - 117 BNP: 457.16 - 1073.91 AST/ALT: 32/11 - 19/13 - 538/168 - 293/152 - 131/130 - 78/94 - 68/74 - 48/57 - 27/38 - 15/23 - 20/18 - 23/17 - 29/16 - 27/13 - 34/17 - 73/49 - 41/43 - 30/47 - 30/42 - 29/42 - 17/27 - 160/87 - 900/478 - 986/571 - 382/436 - 110/244 - 42/170 - 22/113 - 16/77 - 15/59 - 19/50 Digoxin level: 2.83 - 1.25 - 0.98 UDS: non-revealing Chest x-ray revealed: Lines and Tubes: Endotracheal tube tip projects approximately 1.4 cm above the level of the tyler. Enteric catheter courses below the lateral of the diaphragm and terminates beyond the inferior margin of the image. Right internal jugular central venous catheter terminates within the distal superior vena cava. Lungs: Moderate diffuse increased prominence of the pulmonary vasculature without evidence of focal consolidation. Pleura: No effusion. No pneumothorax. Cardiomediastinal contours: Cardiomegaly. Bones: Unremarkable IMPRESSION: 1. Cardiomegaly and diffuse increased prominence of the pulmonary vasculature. 2. Lines and tubes as above. Repeat chest x-ray revealed: IMPRESSION: 1. Endotracheal tube tip 1.6 cm above the tyler; consider 2 cm retraction 2. Mild pulmonary vascular congestion. Moderate cardiomegaly. Repeat chest xry revealed: IMPRESSION: Endotracheal tube tip 1.6 cm above the tyler; consider 2 cm retraction Mild pulmonary vascular congestion. Moderate cardiomegaly. Repeat chest xry revealed: IMPRESSION: 1. Stable cardiomegaly, small left pleural effusion and mild diffuse increased prominence of the pulmonary vasculature. 2. Repositioned endotracheal tube as above. Remaining lines and tubes unchanged. Repeat chest xry revealed: IMPRESSION: 1. Cardiomegaly, stable diffuse increased prominence of the pulmonary vasculature and small bilateral pleural effusions. 2. Slight interval advancement of endotracheal tube as above. Remaining lines and tubes unchanged. Repeat chest xry revealed: IMPRESSION: 1. Slight interval decrease in diffuse increased prominence of the pulmonary vasculature. 2. Stable cardiomegaly and small left pleural effusion. 3. Lines and tubes unchanged. Repeat chest xry revealed: IMPRESSION: 1. Cardiomegaly and small left pleural effusion. 2. Lines and tubes unchanged. Repeat chest xry revealed: IMPRESSION: Stable lines and tubes. Similar lung aeration. Repeat chest xry revealed: IMPRESSION: Cardiomegaly and small left pleural effusion. Lines and tubes unchanged. Repeat chest xry revealed: IMPRESSION: Placement of a cardiac pacer, no pneumothorax is seen. Stable lines and tubes. Repeat chest xry revealed: IMPRESSION: 1. Worsening mixed opacities in the right lower lung. No other significant change from the previous study. Stable support devices. Repeat chest xry revealed: Heart is prominent in size with postsurgical changes, median sternotomy wires, and a single lead left cardiac defibrillator. Support lines and tubes appear unchanged in satisfactory in position. No sizable effusion or pneumothorax. Mild pulmonary vascular congestion. No significant interval change. Repeat chest xry revealed: IMPRESSION: 1. No significant change from the previous study. Stable support devices. Similar findings of heart failure including left pleural effusion. Repeat chest xry revealed: IMPRESSION: 1. No significant change from the previous study. Stable support devices. Similar findings of heart failure including trace left pleural effusion. Repeat chest xry revealed: Lines and Tubes: Unchanged. Left anterior chest wall cardiac pacing device. Lungs: Clear Pleura: No effusion. No pneumothorax. Cardiomediastinal contours: Cardiomegaly. Bones: Unremarkable IMPRESSION: 1. Cardiomegaly. 2. Lines and tubes unchanged. Repeat chest xry revealed: IMPRESSION: Lines and tubes in satisfactory position. No significant interval change. Repeat chest xry revealed: Lines and Tubes: ET tube and NG tube removed. Lungs: Congestion Pleura: No effusion. No pneumothorax. Cardiomediastinal contours: Cardiomegaly Bones: Unremarkable IMPRESSION: 1. Cardiomegaly with CHF. Repeat chest xry revealed: IMPRESSION: 1. Cardiomegaly. 2. Patchy bilateral airspace disease. Liver Ultrasound revealed: Hepatic steatosis. Trace right pleural effusion. Trace ascites Gallstones Bladder ultrasound revealed: IMPRESSION: 1. Cutler catheter in the bladder in the bladder is decompressed. Repeat Bladder Ultrasound revealed: Urinary bladder is unremarkable with prevoid volume of 29 mL. Urinary bladder wall measures 1.5 mm. Cutler catheter is noted. KUB revealed: IMPRESSION: Nonobstructive bowel gas pattern. Nasogastric tube tip in the stomach. Large stool burden. Repeat KUB revealed: Right lower extremity PICC line with tip projecting over the expected region of the intrahepatic IVC. Nasogastric tube projecting towards the distal stomach. Nonspecific bowel gas pattern. Cardiomegaly and left basilar airspace opacities, incompletely characterized. Atherosclerotic calcification disease. Left upper ext arterial duplex: IMPRESSION: No hemodynamically significant stenosis based on peak systolic velocity criteria. Left lower ext arterial duplex: IMPRESSION: There is no evidence for peripheral vascular insufficiency in the left lower extremity. No significant focal stenosis is identified. Liver Ultrasound revealed: Hepatic steatosis. Hepatomegaly. Cholelithiasis. CT of the head revealed: IMPRESSION: No acute intracranial abnormality. Repeat CT of head revealed: IMPRESSION: No acute intracranial abnormality. Repeat CT of Head revealed: IMPRESSION: No acute intracranial abnormality. Echocardiogram reported: lvef 15-20% dilated LV severe global dysfunction mild RV dysfunction biatrial enlargement mild moderate MAC, moderate mitral regurg mild to moderate aortic regug (images of echo reviewed and questioned presence of mitral ring and also some component (moderate of Mitral stenosis) EKG revealed sinus rhythm Telemetry revealed occasions of atrial fibrillation. There was occasional sustained ventricular tachycardia. EMS tele monitor revealed ventricular fibrillation for which the patient was shocked. Has remained sinus rhythm. Later with A-fib with MVR LHC revealed: Patent RICHMOND to LAD; Patent SVG to obtuse marginal; LVEF of 20% with increased EDP; Proximal disease in LAD/LCX RICHIE was performed: Consistent with severely reduced LVEF. Consistent with previously implanted Mitral ring, Up to moderate Mitral stenosis/Mitral Regurgitation and also Moderate Aortic insufficiency. Patient is a 54-year-old female who presented with witnessed syncope. She was found to have ventricular fibrillation for which was shocked. Later had repeated episode of sustained ventricular tachycardia. Patient has been kept in ICU. Does have baseline history of coronary artery disease for which has had bypass surgery. Left heart catheterization was performed which revealed patent RICHMOND and patent SVG. ACS is not considered at this point. It is of note that the patient's echocardiogram reveals significantly use systolic function. Valvular heart disease is considered. Findings are in favor of previously implanted mitral ring. By reviewing the echo images, component of up to moderate mitral stenosis could not be ruled out. LHC was performed that ruled out any active specific ischemia as an etiology for presentation. Is off Amiodarone for abnormal LFT. Being followed by Nephrology / Pulmonary / Neurology / GI ID. Tele has remained sinus rhythm. Had episode of a-fib with RVR. Was loaded with Digoxin. Dig level was performed at wrong timing (only 5 hours after the last Dig given). Dig toxicity is not considered. Patient is back to normal sinus rhythm. Has good kidney function. Repeat Dig level is acceptable level. s/p ICD implantation by EP. Intubated, later extubated. Syncope V-fib s/p shock Sustained V-tach Paroxysmal A-fib VHD, s/p Mitral ring Systolic heart failure Abnormal LFT, at a point resolved, later appeared again s/p ICD (Biotronik) implantation by EP (Dr Armstrong) s/p PRBC transfusion for significant anemia Hepatic Steatosis Gallstones Failed Swallowing To go for PEG Cardiac suggestion for management: Manage in Tele Follow up electrolytes and kidney function test and correct abnormalities Full anticoagulation (a-fib with high CHADS-Vasc score). s/p ICD implantation. To start Eliquis (after performance of possible PEG tube placement): for now on prophylactic dose of Lovenox Off Amio drip (worsened LFT) On Mexiletine If need for pressure support: use Phenyl Ephrine / vasopressin, keep MAP above 65 (for now off pressure support and tolerating) On Metoprolol to decrease risk of Vtach (as patient has ICD with bradycardia protection: may continue metoprolol in case of bradycardia, but hold: if hypotensive) May consider/add Esmolol for PVC/Vtach (if needed) Does not talk. Alert and oriented to self only. As she has not passed swallowing evaluation: IV Metoprolol if needed (HR above 100) s/p ICD (Biotronik) implantation by EP Eldon: 2.5 mg BID: when she can swallow and after any predicted procedure completed (if needed to have PEG, to have it started after performing PEG): for now: Lovenox s/p PRBC transfusion for anemia Failed swallowing evaluation for now Cardiac arenas, patient is moderate risk patient for moderate risk PEG placement. Avoid Hypotension. Pulmonary Follow up GI follow up for repeated failed swallowing evaluation Provide previous medical records from reaching out to previous hospitals in [facility]... Further evaluation and management depends on the above and clinical course. A total of 55 minutes was spent reviewing the patient record, examining the patient, making a diagnostic and therapeutic plan, discussing this plan with medical personnel, following up on diagnostic studies and following the patient for clinical stability excluding any and all procedures. At least 50% of this time was spent in direct, [id number] contact. Thank you for allowing me to participate in this patient's care. Further recommendations will depend on patient's clinical course. Please do not hesitate to contact me if you have any questions or concerns. This medical document was created using electronic medical record system with [employer] computerized dictation system. Although this document has been carefully reviewed, there may still be some phonetic and typographical errors. These areas are purely typographical due to the imperfection of the software programs, and do not reflect any compromise in the patient's medical care. Dietary Evaluation Review Comments: 1) TF Jevity 1.2Cal @ 55 ml/hr. x 24hr along with Pro-stat 1 pk daily. Start @ 20ml/hr, increase 10ml/hr Q4H until goal is reached. TF @ goal volume provides 1684 kcal (100% energy needs), 88 gm protein (100% protein needs), 1065 ml free water. 2) Water flush 100ml Q4H if allowed, adjust PRN 3) Advance to cardiac diet as medically feasible 4) Monitor NPO status, lab values, wt trend, I/O Expected Outcomes/Goals: To meet >75% estimated needs within 7 days Lab values to improve Fu 2-3 days Plan discussed with: Other (nurse) CORDELL VERA MD Nov 08, 2024 07:45
--- NOTE | 2024-11-08 09:35 | DVHPN2 ---
Progress Note Date Seen: Nov 08, 2024 Resident Creating Document: ETHAN SWAN RESIDENT Has the PT tested + for MRSA If YES, has PT been informed?: No Medical Necessity Reason Pt with a Central, PICC or Fol: Yes The following are medically ne: PICC Line, Cutler Catheter Reason for cutler catheter: Strict I&O Subjective Review of Systems Patient seen and examined at bedside More verbal than prior Remains on TPN Failed 3rd swallow evaluation Objective vital signs Vital Sign Date Time Temp Pulse Resp B/P (MAP) Pulse Ox O2 Delivery O2 Flow Rate FiO2 11/08/24 05:00 97.5 55 16 103/56 (72) 97 97.5 11/07/24 20:00 Room Air* 0 21 Total Intake and Output 11/07/24 11/07/24 11/08/24 15:00 23:00 07:00 Intake Total 1581 ml 100 ml Output Total 425 ml 350 ml Balance 1156 ml -250 ml medications Current Medications Medications Dose Ordered Sig/Liliam Route Start Time Stop Time Status Last Admin Dose Admin Amino Acids 0 ml @ 0 mls/hr PER PHARMACY IV 10/15/24 18:45 Cancel Dextrose 50 ml UD IV 10/16/24 09:30 Cancel Polyethylene Glycol 17 gm DAILYPRN PRN GT 10/17/24 16:45 10/19/24 05:54 17 GM Vancomycin HCl 0 ml @ 0 mls/hr UD IV 10/19/24 14:00 Cancel Metoclopramide HCl 5 mg BID IV 10/25/24 10:00 Hold 10/25/24 21:32 5 MG Sodium Chloride 10 ml QSHIFT@10,22 IV 10/26/24 22:00 11/07/24 21:50 10 ML Metoprolol Tartrate 12.5 mg BID PO 10/28/24 22:00 10/30/24 09:24 12.5 MG Metoprolol Tartrate 2.5 mg Q6HPRN PRN IV 10/31/24 09:15 Diagnostic Test (Pha) 1 strip Q6HR 11/01/24 18:00 11/08/24 06:00 1 STRIP Insulin Human Regular FOLLOW SLIDING SCALE Q6HR SC 11/01/24 18:00 11/07/24 02:28 2 UNITS Dextrose 50 ml UD IV 11/01/24 18:00 Amino Acids 0 ml @ 0 mls/hr PER PHARMACY IV 11/04/24 22:00 Amino Acid Protein 30 ml DAILY PO 11/04/24 10:00 Mexiletine HCl 150 mg TID PO 11/04/24 14:00 Dextrose 1,000 ml @ 50 mls/hr Q20H IV 11/04/24 12:45 11/07/24 21:05 50 MLS/HR Enoxaparin Sodium 40 mg DAILY SC 11/06/24 10:00 11/06/24 10:13 40 MG Hydrocortisone Sodium Succinate 50 mg BID IV 11/06/24 22:00 11/07/24 21:47 50 MG Fat Emulsion Intravenous 200 ml/Potassium Acetate 60 meq/ Potassium Phosphate 22 meq/ Calcium Gluconate 2.3 meq/Magnesium Sulfate 2 meq/ Multivitamins 10 ml/Amino Acids/ Dextrose/Purified Water 1,650.4462 ml @ 69 mls/hr [id number] IV 11/07/24 22:00 11/08/24 21:59 11/07/24 21:49 69 MLS/HR Examination General Appearance: Nonverbal Head Exam: Normal inspection. Constricted equal and reactive pupils Neck Exam: Normal inspection. Non-tender. Normal alignment Pulmonary/Respiratory: Chest non-tender. Trace crackles Abdominal Exam: Normal bowel sounds. Soft. Nontender Skin Exam: Normal inspection. Normal color. Warm. Dry laboratory and microbiology Laboratory Tests 11/08/24 05:05 11/07/24 08:32 Test 11/08/24 05:05 Range/Units Serum Glucose 145 H 74-106 mg/dL Microbiology Date/Time Source Procedure Growth Status 10/20/24 04:00 Sputum Gram Stain - Final Complete 10/20/24 04:00 Respiratory Culture - Final Enterobacter cloacae Yeast, not Ilda albicans Complete 10/20/24 01:03 Urine - Cutler [place] Urine Culture - Final Yeast, not Ilda albicans Complete 10/19/24 13:02 Blood Blood Culture - Final NO GROWTH AFTER 5 DAYS OF INCUBATION. Complete 10/07/24 16:50 Nose MRSA Screen - Final Complete Labs and/or images reviewed: Labs reviewed by me, Image(s) reviewed by me Problem List/Assessment/Plan Problem List/Assessment/Plan Questionable acute cholecystitis Ventricular fibrillation S/p cardiopulmonary arrest with shock Heart failure with reduced ejection fraction 15-20% Metabolic versus hypoxic encephalopathy Acute hepatocellular injury likely shock liver Cholelithiasis without acute inflammation Nonalcoholic fatty liver disease with steatohepatitis Community-acquired pneumonia growing Enterobacter Plan: Tapered hydrocortisone to q.12 hours on 11/06/2024 Pending repeat swallow evaluation PEG tube placement on Tuesday Liver function tests downtrending appropriately Keep PT/INR therapeutic Hemoglobin stable, transfuse if HB 7 or less Continue tube feedings as patient failed swallow eval Decreased metoclopramide to 5 mg IV b.i.d. JAIDEN positive, outpatient follow up with GI recommended for further workup Thank you so much for the opportunity to consult on your patient. GI team will follow the patient. In case of any questions or concerns please feel free to reach out. Plan discussed with Dr. Anglin Plan discussed with: Other (RN) Dietary Evaluation Review Comments: 1) TF Jevity 1.2Cal @ 55 ml/hr. x 24hr along with Pro-stat 1 pk daily. Start @ 20ml/hr, increase 10ml/hr Q4H until goal is reached. TF @ goal volume provides 1684 kcal (100% energy needs), 88 gm protein (100% protein needs), 1065 ml free water. 2) Water flush 100ml Q4H if allowed, adjust PRN 3) Advance to cardiac diet as medically feasible 4) Monitor NPO status, lab values, wt trend, I/O Expected Outcomes/Goals: To meet >75% estimated needs within 7 days Lab values to improve Fu 2-3 days ETHAN SWAN RESIDENT Nov 08, 2024 09:35
--- NOTE | 2024-11-08 09:45 | DVHPN2 ---
Progress Note - Dictate Date Seen: Nov 08, 2024 Has the PT tested + for MRSA If YES, has PT been informed?: No Medical Necessity Reason Pt with a Central, PICC or Fol: Yes The following are medically ne: PICC Line, Cutler Catheter Reason for cutler catheter: Strict I&O vital signs Vital Sign Date Time Temp Pulse Resp B/P (MAP) Pulse Ox O2 Delivery O2 Flow Rate FiO2 11/08/24 05:00 97.5 55 16 103/56 (72) 97 97.5 11/07/24 20:00 Room Air* 0 21 Total Intake and Output 11/07/24 11/07/24 11/08/24 15:00 23:00 07:00 Intake Total 1581 ml 100 ml Output Total 425 ml 350 ml Balance 1156 ml -250 ml medications Current Medications Medications Dose Ordered Sig/Liliam Route Start Time Stop Time Status Last Admin Dose Admin Amino Acids 0 ml @ 0 mls/hr PER PHARMACY IV 10/15/24 18:45 Cancel Dextrose 50 ml UD IV 10/16/24 09:30 Cancel Polyethylene Glycol 17 gm DAILYPRN PRN GT 10/17/24 16:45 10/19/24 05:54 17 GM Vancomycin HCl 0 ml @ 0 mls/hr UD IV 10/19/24 14:00 Cancel Metoclopramide HCl 5 mg BID IV 10/25/24 10:00 Hold 10/25/24 21:32 5 MG Sodium Chloride 10 ml QSHIFT@10,22 IV 10/26/24 22:00 11/07/24 21:50 10 ML Metoprolol Tartrate 12.5 mg BID PO 10/28/24 22:00 10/30/24 09:24 12.5 MG Metoprolol Tartrate 2.5 mg Q6HPRN PRN IV 10/31/24 09:15 Diagnostic Test (Pha) 1 strip Q6HR 11/01/24 18:00 11/08/24 06:00 1 STRIP Insulin Human Regular FOLLOW SLIDING SCALE Q6HR SC 11/01/24 18:00 11/07/24 02:28 2 UNITS Dextrose 50 ml UD IV 11/01/24 18:00 Amino Acids 0 ml @ 0 mls/hr PER PHARMACY IV 11/04/24 22:00 Amino Acid Protein 30 ml DAILY PO 11/04/24 10:00 Mexiletine HCl 150 mg TID PO 11/04/24 14:00 Dextrose 1,000 ml @ 50 mls/hr Q20H IV 11/04/24 12:45 11/07/24 21:05 50 MLS/HR Enoxaparin Sodium 40 mg DAILY SC 11/06/24 10:00 11/06/24 10:13 40 MG Hydrocortisone Sodium Succinate 50 mg BID IV 11/06/24 22:00 11/07/24 21:47 50 MG Fat Emulsion Intravenous 200 ml/Potassium Acetate 60 meq/ Potassium Phosphate 22 meq/ Calcium Gluconate 2.3 meq/Magnesium Sulfate 2 meq/ Multivitamins 10 ml/Amino Acids/ Dextrose/Purified Water 1,650.4462 ml @ 69 mls/hr [id number] IV 11/07/24 22:00 11/08/24 21:59 11/07/24 21:49 69 MLS/HR objective General Appearance: no distress HEENT: EOMI, PERRLA, normal external inspect of ears, no icterus, no nasal drainage Neck: no carotid bruit, no jugular venous distention (JVD), no lymphadenopathy Chest: normal thorax Respiratory: Intubated, clear to auscultation, normal air movement Cardiovascular: regular rate and rhythm, no diastolic murmur, no jugular venous distention (JVD), no rub, no systolic murmur Abdominal: soft, no hepatomegaly, no mass, no splenomegaly, no tenderness Genitourinary: grossly normal external Musculoskeletal: no joint tenderness, no swelling Extremities: normal pulses, no calf tenderness, no clubbing, no cyanosis, no edema Skin: no bruising, no jaundice, no rash Neurological: No focal deficit laboratory and microbiology Laboratory Tests 11/08/24 05:05 11/07/24 08:32 Test 11/08/24 05:05 Range/Units Serum Glucose 145 H 74-106 mg/dL Problem List Cardiac Arrest with Ventricular Fibrillation Assessment: Patient experienced cardiac arrest with ventricular fibrillation on 10/07/24, witnessed by family members who initiated CPR. EMS found the patient in ventricular fibrillation and administered shock therapy. Rhythm strip analysis confirmed ventricular fibrillation. Patient required intubation and sedation upon ED arrival. Currently admitted to ICU for close observation. Cardiology has been consulted and plans for AICD placement, likely on Tuesday. Infectious disease clearance has been obtained for the AICD procedure, addressing initial concerns of leukocytosis which is now improving. Status post-cardiac arrest. Plan: - Continue ICU monitoring - Proceed with AICD placement as planned (likely Tuesday), cleared by infectious disease. - Maintain intubation and sedation until AICD placement - Continue Heparin drip for paroxysmal atrial fibrillation - Continue Mexitil - DC amiodarone due to transaminitis - added esmolol drip per Cardiology for AFib and added push doses of digoxin Coronary Artery Disease Assessment: Patient with history of 2-vessel CABG (Coronary Artery Bypass Grafting). Surgical intervention previously performed to address significant coronary artery stenosis. Plan: - Continue medical management - Follow up with cardiology for ongoing coronary artery disease management Acute and Chronic Systolic Heart Failure Assessment: Patient has acute and chronic systolic heart failure with severely reduced left ventricular function. Ejection fraction is estimated at 15-20%. RICHIE findings are consistent with severely reduced left ventricular ejection fraction, previously implanted mitral ring, up to moderate mitral stenosis and regurgitation, and moderate aortic insufficiency. Plan: - Continue cardiology consultation - continue IV diuretics (IV Lasix) - Monitor renal function Acute Hypoxic Respiratory Failure Assessment: Patient is currently intubated due to acute hypoxic respiratory failure. Dr. Downey from pulmonology is managing this aspect of care. Plan: - Maintain current intubation as per pulmonology recommendation - Proceed with CPAP trials when deemed appropriate by pulmonology Transaminitis Assessment: Patient has elevated liver function tests, likely secondary to amiodarone use. Cardiology has discontinued amiodarone in response. Plan: - Monitor liver function tests - Amiodarone discontinued as per cardiology Enterobacter PNA Assessment: Sputum culture positive for Enterobacter. Plan: - Continue treatment with Eratapenem to complete 10 days regimen -Infectious disease consult Hemodynamic Support Assessment: Patient requires vasopressor support for hemodynamic stability. Plan: - Continue vasopressin - Continue neosynephrine Paroxysmal a fib -DC amiodarone -continue with heparin gtt Shock liver GI consult, trend liver enzymes, hepatitis panel was negative. Ultrasound of the liver had no acute findings. Assessment/Plan Subjective Patient is awake and alert. Objective Patient is agreeable to a PEG tube placement. PEG tube placement is scheduled for tomorrow. Patient was admitted status postcardiac arrest on October 07, 2024. Patient is status post AICD placement. Patient had sepsis related to community-acquired pneumonia with Enterobacter. Patient developed dysphagia due to prolonged time spent on ventilator. She has failed to swallow eval's. Patient is very deconditioned. Plan Continue physical therapy. Plan for PEG tube placement and initiation of tube feedings. DC planning to SNF versus acute rehab. Dietary Evaluation Review Comments: 1) TF Jevity 1.2Cal @ 55 ml/hr. x 24hr along with Pro-stat 1 pk daily. Start @ 20ml/hr, increase 10ml/hr Q4H until goal is reached. TF @ goal volume provides 1684 kcal (100% energy needs), 88 gm protein (100% protein needs), 1065 ml free water. 2) Water flush 100ml Q4H if allowed, adjust PRN 3) Advance to cardiac diet as medically feasible 4) Monitor NPO status, lab values, wt trend, I/O Expected Outcomes/Goals: To meet >75% estimated needs within 7 days Lab values to improve Fu 2-3 days Plan discussed with: Patient, Other BRODIE GARVIN NP Nov 08, 2024 09:45
--- NOTE | 2024-11-08 14:04 | DVHPN2 ---
Progress Note - Dictate Date Seen: Nov 08, 2024 Has the PT tested + for MRSA If YES, has PT been informed?: No Medical Necessity Reason Pt with a Central, PICC or Fol: Yes The following are medically ne: PICC Line, Cutler Catheter Reason for cutler catheter: Strict I&O vital signs Vital Sign Date Time Temp Pulse Resp B/P (MAP) Pulse Ox O2 Delivery O2 Flow Rate FiO2 11/08/24 13:00 97.7 55 20 127/83 (98) 95 97.7 11/07/24 20:00 Room Air* 0 21 Total Intake and Output 11/07/24 11/07/24 11/08/24 15:00 23:00 07:00 Intake Total 1581 ml 100 ml Output Total 425 ml 350 ml Balance 1156 ml -250 ml medications Current Medications Medications Dose Ordered Sig/Liliam Route Start Time Stop Time Status Last Admin Dose Admin Amino Acids 0 ml @ 0 mls/hr PER PHARMACY IV 10/15/24 18:45 Cancel Dextrose 50 ml UD IV 10/16/24 09:30 Cancel Polyethylene Glycol 17 gm DAILYPRN PRN GT 10/17/24 16:45 10/19/24 05:54 17 GM Vancomycin HCl 0 ml @ 0 mls/hr UD IV 10/19/24 14:00 Cancel Metoclopramide HCl 5 mg BID IV 10/25/24 10:00 Hold 10/25/24 21:32 5 MG Sodium Chloride 10 ml QSHIFT@10,22 IV 10/26/24 22:00 11/08/24 10:26 10 ML Metoprolol Tartrate 12.5 mg BID PO 10/28/24 22:00 10/30/24 09:24 12.5 MG Metoprolol Tartrate 2.5 mg Q6HPRN PRN IV 10/31/24 09:15 Diagnostic Test (Pha) 1 strip Q6HR 11/01/24 18:00 11/08/24 06:00 1 STRIP Insulin Human Regular FOLLOW SLIDING SCALE Q6HR SC 11/01/24 18:00 11/07/24 02:28 2 UNITS Dextrose 50 ml UD IV 11/01/24 18:00 Amino Acids 0 ml @ 0 mls/hr PER PHARMACY IV 11/04/24 22:00 Amino Acid Protein 30 ml DAILY PO 11/04/24 10:00 Mexiletine HCl 150 mg TID PO 11/04/24 14:00 Dextrose 1,000 ml @ 50 mls/hr Q20H IV 11/04/24 12:45 11/07/24 21:05 50 MLS/HR Enoxaparin Sodium 40 mg DAILY SC 11/06/24 10:00 11/06/24 10:13 40 MG Hydrocortisone Sodium Succinate 50 mg BID IV 11/06/24 22:00 11/08/24 10:26 50 MG Fat Emulsion Intravenous 200 ml/Potassium Acetate 60 meq/ Potassium Phosphate 22 meq/ Calcium Gluconate 2.3 meq/Magnesium Sulfate 2 meq/ Multivitamins 10 ml/Amino Acids/ Dextrose/Purified Water 1,650.4462 ml @ 69 mls/hr [id number] IV 11/07/24 22:00 11/08/24 21:59 11/07/24 21:49 69 MLS/HR Fat Emulsion Intravenous 200 ml/Sodium Acetate 10 meq/Potassium Acetate 60 meq/ Potassium Phosphate 22 meq/ Calcium Gluconate 2.3 meq/Magnesium Sulfate 4 meq/ Multivitamins 10 ml/Chromium/ Copper/Manganese/ Zinc 1 ml/Amino Acids/Dextrose/ Purified Water 1,756.9462 ml @ 73 mls/hr [id number] IV 11/08/24 22:00 11/09/24 21:59 laboratory and microbiology Laboratory Tests 11/08/24 05:05 11/07/24 08:32 Test 11/08/24 05:05 Range/Units Serum Glucose 145 H 74-106 mg/dL Assessment/Plan impression s/p cardiac arrest VT CPR <5 min elevated troponin acute resp failure atelectases pt seen and examined events s/p extubation low oxygen requirements on room air no acute events s/p pacemaker management plan supplemental oxygen as needed titrate to maintain sats 90% or above incentive spirometry aspiration precautions cont abx monitor cx monitor labs renal function daily abg and CXR dvt proph/on aggressive physical therapy f/u cardiology Dietary Evaluation Review Comments: 1) TF Jevity 1.2Cal @ 55 ml/hr. x 24hr along with Pro-stat 1 pk daily. Start @ 20ml/hr, increase 10ml/hr Q4H until goal is reached. TF @ goal volume provides 1684 kcal (100% energy needs), 88 gm protein (100% protein needs), 1065 ml free water. 2) Water flush 100ml Q4H if allowed, adjust PRN 3) Advance to cardiac diet as medically feasible 4) Monitor NPO status, lab values, wt trend, I/O Expected Outcomes/Goals: To meet >75% estimated needs within 7 days Lab values to improve Fu 2-3 days Plan discussed with: Patient BELLO ROTHMAN MD Nov 08, 2024 14:04
[2024-11-08] MEDS: TPN PER PHARMACY IV NR (22:13)
[2024-11-09] VITALS (10 sets, daily range): BP systolic 101–121; BP diastolic 62–78; PULSE 47–88; RESP 18–26; TEMP 97.5–98.9; O2SAT 95–99
[2024-11-09 06:02] LABS: Hematocrit 32.3 % (36.0-46.0); Hemoglobin 10.6 g/dL (12.2-16.2); INR 1.03 (0.9-1.15); Mean Corpuscular Hemoglobin 31.1 pg (28.0-32.0); Mean Corpuscular Volume 94.7 fL (80.0-100.0); Nucleated Red Blood Cells % 0.2 %; Partial Thromboplastin Time 26.1 SEC (24.5-34.5); Prothrombin Time 10.9 sec (9.3-11.8)
--- NOTE | 2024-11-09 06:08 | DVHPN2 ---
Progress Note - Dictate Date Seen: Nov 09, 2024 Has the PT tested + for MRSA If YES, has PT been informed?: No Medical Necessity Reason Pt with a Central, PICC or Fol: Yes The following are medically ne: PICC Line, Cutler Catheter Reason for cutler catheter: Strict I&O vital signs Vital Sign Date Time Temp Pulse Resp B/P (MAP) Pulse Ox O2 Delivery O2 Flow Rate FiO2 11/09/24 05:00 97.5 59 19 119/78 (92) 96 97.5 11/08/24 20:00 Room Air* 2 N/A Nasal Cannula* Total Intake and Output 11/08/24 11/08/24 11/09/24 15:00 23:00 07:00 Intake Total 0 ml 0 ml Output Total 1050 ml 1025 ml Balance -1050 ml -1025 ml medications Current Medications Medications Dose Ordered Sig/Liliam Route Start Time Stop Time Status Last Admin Dose Admin Amino Acids 0 ml @ 0 mls/hr PER PHARMACY IV 10/15/24 18:45 Cancel Dextrose 50 ml UD IV 10/16/24 09:30 Cancel Polyethylene Glycol 17 gm DAILYPRN PRN GT 10/17/24 16:45 10/19/24 05:54 17 GM Vancomycin HCl 0 ml @ 0 mls/hr UD IV 10/19/24 14:00 Cancel Metoclopramide HCl 5 mg BID IV 10/25/24 10:00 Hold 10/25/24 21:32 5 MG Sodium Chloride 10 ml QSHIFT@10,22 IV 10/26/24 22:00 11/08/24 22:27 10 ML Metoprolol Tartrate 12.5 mg BID PO 10/28/24 22:00 10/30/24 09:24 12.5 MG Metoprolol Tartrate 2.5 mg Q6HPRN PRN IV 10/31/24 09:15 Diagnostic Test (Pha) 1 strip Q6HR 11/01/24 18:00 11/09/24 05:58 1 STRIP Insulin Human Regular FOLLOW SLIDING SCALE Q6HR SC 11/01/24 18:00 11/09/24 00:00 2 UNITS Dextrose 50 ml UD IV 11/01/24 18:00 Amino Acids 0 ml @ 0 mls/hr PER PHARMACY IV 11/04/24 22:00 Amino Acid Protein 30 ml DAILY PO 11/04/24 10:00 Mexiletine HCl 150 mg TID PO 11/04/24 14:00 Dextrose 1,000 ml @ 50 mls/hr Q20H IV 11/04/24 12:45 11/08/24 18:18 50 MLS/HR Enoxaparin Sodium 40 mg DAILY SC 11/06/24 10:00 11/06/24 10:13 40 MG Hydrocortisone Sodium Succinate 50 mg BID IV 11/06/24 22:00 11/08/24 22:16 50 MG Fat Emulsion Intravenous 200 ml/Sodium Acetate 10 meq/Potassium Acetate 60 meq/ Potassium Phosphate 22 meq/ Calcium Gluconate 2.3 meq/Magnesium Sulfate 4 meq/ Multivitamins 10 ml/Chromium/ Copper/Manganese/ Zinc 1 ml/Amino Acids/Dextrose/ Purified Water 1,756.9462 ml @ 73 mls/hr Q24H5M IV 11/08/24 22:00 11/09/24 21:59 11/08/24 22:13 73 MLS/HR laboratory and microbiology Laboratory Tests 11/09/24 04:52 Test 11/09/24 04:52 Range/Units Serum Glucose Pending Assessment/Plan In Tele. Failed swallowing evaluation. Still on TPN. To go for PEG implantation. Patient is a 54-year-old female who was brought to the hospital for witnessed syncope. She is intubated and is being managed in ICU. Information was obtained by reviewing the chart and communicating with patient's son (over the phone). Family recognized witnessed syncope and started CPR and called EMS. Reportedly, EMS found the patient in ventricular fibrillation and shocked the patient and brought the patient to the hospital. Patient was intubated in emergency room and transferred to ICU. Patient was on amiodarone drip. Later the patient had ventricular tachycardia (Systane). High sensitive troponin had been minimally/flatly elevated. Presentation was not in favor of acute coronary syndrome. Cardiology is involved for cardiac aspects of care. NAD Does not talk. Alert and oriented to self only. No JVD. Mucosa pale. No carotid bruit. Scattered rhonchi in the lungs is heard. Cardiac: Regular, no thrill. Systolic murmur 2/6 in apex is heard. Abdomen is soft. No edema in extremities. Past medical history as per son: Congenital heart disease, status post bypass WBC: 14.5 - 11.9 - 18.8 - 20.0 - 21.2 - 14.3 - 10.3 - 8.9 - 9.2 - 11.1 - 12.1 - 10.8 - 12.0 - 9.9 - 15.4 - 14.8 - 12.1 - 10.5 - 5.8 - 5.3 - 4.2 - 5.8 - 4.1 - 7.0 - 9.3 - 8.3 - 11.5 - 8.4 - 8.4 - 5.4 - 5.7 - 8.4 - 7.4 Hemoglobin: 10.1 - 9.6 - 9.2 - 8.8 - 8.7 - 8.0 - 8.3 - 8.5 - 7.8 - 10.2 - 10.7 - 9.9 - 9.7 - 9.3 - 9.3 - 8.6 - 8.1 - 7.4 - 7.5 - 7.4 - 7.5 - 7.2 - 7.7 - 7.0 - (post PRBC transfusion) 10.4 - 10 - 9.5 - 10.0 - 9.2 - 9.8 -9.6 - 9.7 - 10.2 - 10.6 Creatinine: 0.95 - 0.93 - 0.87 - 0.83 - 0.83 - 0.76 - 0.68 - 0.72 - 0.79 - 0.76 - 0.80 - 0.84 - 0.61 - 0.65 - 0.74 - 0.64 - 0.73 - 0.82 - 0.88 - 1.03 - 0.99 - 0.85 - 0.87 - 0.79 - 1.12 - 1.15 - 1.04 - 0.96 - 0.94 - 0.93 - 0.78 - 0.71 - 0.68 - 0.61 - 0.59 - 0.49 today's pending Potassium: 3.4 - 4.0 - 4.6 - 3.5 - 3.3 - 4.1 - 3.7 - 3.2 - 3.7 - 4.0 - 3.2 - 3.4 - 3.9 - 4.2 - 3.3 - 3.8 - 3.6 - 3.4 - 4.2 - 3.8 - 4.5 - 4.1 - 3.5 - 4.2 - 3.3 - 2.6 - 3.5 - 3.8 - 2.4 - 2.9 - 4.6 - 2.8 - 4.8 - 4.9 - 3.4 - 3.1 - 3.7 - 4.4 - 3.7 - 3.7 - 3.1 - 3.0 - 3.8 - 4.4 - 3.8 - 4.1 today's pending Magnesium: 2.0 - 1.6 - 2.0 - 3.0 - 1.5 - 1.9 - 2.1 - 1.8 - 2.0 - 1.9 - 1.9 - 2.6 - 2.0 - 1.8 - 1.6 - 2.0 - 2.2 - 1.9 - 2.3 - 2.2 - 2.2 - 2.1 - 2.1 - 1.9 2.7 - 2.6 - 2.3 - 2.4 - 2.5 - 2.3 - 2.5 - 2.3 - 2.3 - 2.4 - 2.1 - 1.9 today's pending Troponin (high sensitive): 141 - 138 - 117 BNP: 457.16 - 1073.91 AST/ALT: 32/11 - 19/13 - 538/168 - 293/152 - 131/130 - 78/94 - 68/74 - 48/57 - 27/38 - 15/23 - 20/18 - 23/17 - 29/16 - 27/13 - 34/17 - 73/49 - 41/43 - 30/47 - 30/42 - 29/42 - 17/27 - 160/87 - 900/478 - 986/571 - 382/436 - 110/244 - 42/170 - 22/113 - 16/77 - 15/59 - 19/50 today's pending Digoxin level: 2.83 - 1.25 - 0.98 UDS: non-revealing Chest x-ray revealed: Lines and Tubes: Endotracheal tube tip projects approximately 1.4 cm above the level of the tyler. Enteric catheter courses below the lateral of the diaphragm and terminates beyond the inferior margin of the image. Right internal jugular central venous catheter terminates within the distal superior vena cava. Lungs: Moderate diffuse increased prominence of the pulmonary vasculature without evidence of focal consolidation. Pleura: No effusion. No pneumothorax. Cardiomediastinal contours: Cardiomegaly. Bones: Unremarkable IMPRESSION: 1. Cardiomegaly and diffuse increased prominence of the pulmonary vasculature. 2. Lines and tubes as above. Repeat chest x-ray revealed: IMPRESSION: 1. Endotracheal tube tip 1.6 cm above the tyler; consider 2 cm retraction 2. Mild pulmonary vascular congestion. Moderate cardiomegaly. Repeat chest xry revealed: IMPRESSION: Endotracheal tube tip 1.6 cm above the tyler; consider 2 cm retraction Mild pulmonary vascular congestion. Moderate cardiomegaly. Repeat chest xry revealed: IMPRESSION: 1. Stable cardiomegaly, small left pleural effusion and mild diffuse increased prominence of the pulmonary vasculature. 2. Repositioned endotracheal tube as above. Remaining lines and tubes unchanged. Repeat chest xry revealed: IMPRESSION: 1. Cardiomegaly, stable diffuse increased prominence of the pulmonary vasculature and small bilateral pleural effusions. 2. Slight interval advancement of endotracheal tube as above. Remaining lines and tubes unchanged. Repeat chest xry revealed: IMPRESSION: 1. Slight interval decrease in diffuse increased prominence of the pulmonary vasculature. 2. Stable cardiomegaly and small left pleural effusion. 3. Lines and tubes unchanged. Repeat chest xry revealed: IMPRESSION: 1. Cardiomegaly and small left pleural effusion. 2. Lines and tubes unchanged. Repeat chest xry revealed: IMPRESSION: Stable lines and tubes. Similar lung aeration. Repeat chest xry revealed: IMPRESSION: Cardiomegaly and small left pleural effusion. Lines and tubes unchanged. Repeat chest xry revealed: IMPRESSION: Placement of a cardiac pacer, no pneumothorax is seen. Stable lines and tubes. Repeat chest xry revealed: IMPRESSION: 1. Worsening mixed opacities in the right lower lung. No other significant change from the previous study. Stable support devices. Repeat chest xry revealed: Heart is prominent in size with postsurgical changes, median sternotomy wires, and a single lead left cardiac defibrillator. Support lines and tubes appear unchanged in satisfactory in position. No sizable effusion or pneumothorax. Mild pulmonary vascular congestion. No significant interval change. Repeat chest xry revealed: IMPRESSION: 1. No significant change from the previous study. Stable support devices. Similar findings of heart failure including left pleural effusion. Repeat chest xry revealed: IMPRESSION: 1. No significant change from the previous study. Stable support devices. Similar findings of heart failure including trace left pleural effusion. Repeat chest xry revealed: Lines and Tubes: Unchanged. Left anterior chest wall cardiac pacing device. Lungs: Clear Pleura: No effusion. No pneumothorax. Cardiomediastinal contours: Cardiomegaly. Bones: Unremarkable IMPRESSION: 1. Cardiomegaly. 2. Lines and tubes unchanged. Repeat chest xry revealed: IMPRESSION: Lines and tubes in satisfactory position. No significant interval change. Repeat chest xry revealed: Lines and Tubes: ET tube and NG tube removed. Lungs: Congestion Pleura: No effusion. No pneumothorax. Cardiomediastinal contours: Cardiomegaly Bones: Unremarkable IMPRESSION: 1. Cardiomegaly with CHF. Repeat chest xry revealed: IMPRESSION: 1. Cardiomegaly. 2. Patchy bilateral airspace disease. Liver Ultrasound revealed: Hepatic steatosis. Trace right pleural effusion. Trace ascites Gallstones Bladder ultrasound revealed: IMPRESSION: 1. Cutler catheter in the bladder in the bladder is decompressed. Repeat Bladder Ultrasound revealed: Urinary bladder is unremarkable with prevoid volume of 29 mL. Urinary bladder wall measures 1.5 mm. Cutler catheter is noted. KUB revealed: IMPRESSION: Nonobstructive bowel gas pattern. Nasogastric tube tip in the stomach. Large stool burden. Repeat KUB revealed: Right lower extremity PICC line with tip projecting over the expected region of the intrahepatic IVC. Nasogastric tube projecting towards the distal stomach. Nonspecific bowel gas pattern. Cardiomegaly and left basilar airspace opacities, incompletely characterized. Atherosclerotic calcification disease. Left upper ext arterial duplex: IMPRESSION: No hemodynamically significant stenosis based on peak systolic velocity criteria. Left lower ext arterial duplex: IMPRESSION: There is no evidence for peripheral vascular insufficiency in the left lower extremity. No significant focal stenosis is identified. Liver Ultrasound revealed: Hepatic steatosis. Hepatomegaly. Cholelithiasis. CT of the head revealed: IMPRESSION: No acute intracranial abnormality. Repeat CT of head revealed: IMPRESSION: No acute intracranial abnormality. Repeat CT of Head revealed: IMPRESSION: No acute intracranial abnormality. Echocardiogram reported: lvef 15-20% dilated LV severe global dysfunction mild RV dysfunction biatrial enlargement mild moderate MAC, moderate mitral regurg mild to moderate aortic regug (images of echo reviewed and questioned presence of mitral ring and also some component (moderate of Mitral stenosis) EKG revealed sinus rhythm Telemetry revealed occasions of atrial fibrillation. There was occasional sustained ventricular tachycardia. EMS tele monitor revealed ventricular fibrillation for which the patient was shocked. Has remained sinus rhythm. Later with A-fib with MVR LHC revealed: Patent RICHMOND to LAD; Patent SVG to obtuse marginal; LVEF of 20% with increased EDP; Proximal disease in LAD/LCX RICHIE was performed: Consistent with severely reduced LVEF. Consistent with previously implanted Mitral ring, Up to moderate Mitral stenosis/Mitral Regurgitation and also Moderate Aortic insufficiency. Patient is a 54-year-old female who presented with witnessed syncope. She was found to have ventricular fibrillation for which was shocked. Later had repeated episode of sustained ventricular tachycardia. Patient has been kept in ICU. Does have baseline history of coronary artery disease for which has had bypass surgery. Left heart catheterization was performed which revealed patent RICHMOND and patent SVG. ACS is not considered at this point. It is of note that the patient's echocardiogram reveals significantly use systolic function. Valvular heart disease is considered. Findings are in favor of previously implanted mitral ring. By reviewing the echo images, component of up to moderate mitral stenosis could not be ruled out. LHC was performed that ruled out any active specific ischemia as an etiology for presentation. Is off Amiodarone for abnormal LFT. Being followed by Nephrology / Pulmonary / Neurology / GI ID. Tele has remained sinus rhythm. Had episode of a-fib with RVR. Was loaded with Digoxin. Dig level was performed at wrong timing (only 5 hours after the last Dig given). Dig toxicity is not considered. Patient is back to normal sinus rhythm. Has good kidney function. Repeat Dig level is acceptable level. s/p ICD implantation by EP. Intubated, later extubated. Syncope V-fib s/p shock Sustained V-tach Paroxysmal A-fib VHD, s/p Mitral ring Systolic heart failure Abnormal LFT, at a point resolved, later appeared again s/p ICD (Biotronik) implantation by EP (Dr Armstrong) s/p PRBC transfusion for significant anemia Hepatic Steatosis Gallstones Failed Swallowing To go for PEG Cardiac suggestion for management: Manage in Tele Follow up electrolytes and kidney function test and correct abnormalities Full anticoagulation (a-fib with high CHADS-Vasc score). s/p ICD implantation. To start Eliquis (after performance of possible PEG tube placement): for now on prophylactic dose of Lovenox Off Amio drip (worsened LFT) On Mexiletine If need for pressure support: use Phenyl Ephrine / vasopressin, keep MAP above 65 (for now off pressure support and tolerating) On Metoprolol to decrease risk of Vtach (as patient has ICD with bradycardia protection: may continue metoprolol in case of bradycardia, but hold: if hypotensive) May consider/add Esmolol for PVC/Vtach (if needed) Does not talk. Alert and oriented to self only. As she has not passed swallowing evaluation: IV Metoprolol if needed (HR above 100) s/p ICD (Biotronik) implantation by EP Eldon: 2.5 mg BID: when she can swallow and after any predicted procedure completed (if needed to have PEG, to have it started after performing PEG): for now: Lovenox s/p PRBC transfusion for anemia Failed swallowing evaluation for now Cardiac arenas, patient is moderate risk patient for moderate risk PEG placement. Avoid Hypotension. Pulmonary Follow up GI follow up for repeated failed swallowing evaluation Provide previous medical records from reaching out to previous hospitals in [facility]... Further evaluation and management depends on the above and clinical course. A total of 55 minutes was spent reviewing the patient record, examining the patient, making a diagnostic and therapeutic plan, discussing this plan with medical personnel, following up on diagnostic studies and following the patient for clinical stability excluding any and all procedures. At least 50% of this time was spent in direct, [id number] contact. Thank you for allowing me to participate in this patient's care. Further recommendations will depend on patient's clinical course. Please do not hesitate to contact me if you have any questions or concerns. This medical document was created using electronic medical record system with [employer] Assistant computerized dictation system. Although this document has been carefully reviewed, there may still be some phonetic and typographical errors. These areas are purely typographical due to the imperfection of the software programs, and do not reflect any compromise in the patient's medical care. Dietary Evaluation Review Comments: 1) TF Jevity 1.2Cal @ 55 ml/hr. x 24hr along with Pro-stat 1 pk daily. Start @ 20ml/hr, increase 10ml/hr Q4H until goal is reached. TF @ goal volume provides 1684 kcal (100% energy needs), 88 gm protein (100% protein needs), 1065 ml free water. 2) Water flush 100ml Q4H if allowed, adjust PRN 3) Advance to cardiac diet as medically feasible 4) Monitor NPO status, lab values, wt trend, I/O Expected Outcomes/Goals: To meet >75% estimated needs within 7 days Lab values to improve Fu 2-3 days Plan discussed with: Other (nurse) CORDELL VERA MD Nov 09, 2024 06:08
[2024-11-09 06:10] LABS: Alanine Aminotransferase 30 U/L (7-40); Alkaline Phosphatase 87 U/L (46-116); Anion Gap 11 (5-15); BUN/Creatinine Ratio 41.0 (10.0-20.0); Blood Urea Nitrogen 16 mg/dL (9-23); Carbon Dioxide 21 mmol/L (20-31); Glucose 92 mg/dL (74-106); Magnesium 2.1 mg/dL (1.6-2.6); Potassium 4.3 mmol/L (3.5-5.1); Sodium 143 mmol/L (136-145)
[2024-11-09 06:11] LABS: Albumin 3.1 g/dL (3.2-4.8); Bilirubin, Total 1.1 mg/dL (0.2-1.0); Calcium 8.5 mg/dL (8.7-10.4); Chloride 111 mmol/L (98-107); Total Protein 5.3 g/dL (5.7-8.2)
--- NOTE | 2024-11-09 14:03 | DVHPN2 ---
Progress Note Date Seen: Nov 09, 2024 Has the PT tested + for MRSA If YES, has PT been informed?: No Medical Necessity Reason Pt with a Central, PICC or Fol: Yes The following are medically ne: PICC Line, Cutler Catheter Reason for cutler catheter: Strict I&O Subjective Review of Systems: Not Done (unable to obtain) Objective vital signs Vital Sign Date Time Temp Pulse Resp B/P (MAP) Pulse Ox O2 Delivery O2 Flow Rate FiO2 11/09/24 12:49 98.9 55 20 120/71 (87) 95 98.9 11/09/24 08:00 Room Air* 0 21 Total Intake and Output 11/08/24 11/08/24 11/09/24 15:00 23:00 07:00 Intake Total 0 ml 0 ml Output Total 1050 ml 1025 ml Balance -1050 ml -1025 ml medications Current Medications Medications Dose Ordered Sig/Liliam Route Start Time Stop Time Status Last Admin Dose Admin Amino Acids 0 ml @ 0 mls/hr PER PHARMACY IV 10/15/24 18:45 Cancel Dextrose 50 ml UD IV 10/16/24 09:30 Cancel Polyethylene Glycol 17 gm DAILYPRN PRN GT 10/17/24 16:45 10/19/24 05:54 17 GM Vancomycin HCl 0 ml @ 0 mls/hr UD IV 10/19/24 14:00 Cancel Metoclopramide HCl 5 mg BID IV 10/25/24 10:00 Hold 10/25/24 21:32 5 MG Sodium Chloride 10 ml QSHIFT@10,22 IV 10/26/24 22:00 11/09/24 10:09 10 ML Metoprolol Tartrate 12.5 mg BID PO 10/28/24 22:00 10/30/24 09:24 12.5 MG Metoprolol Tartrate 2.5 mg Q6HPRN PRN IV 10/31/24 09:15 Diagnostic Test (Pha) 1 strip Q6HR 11/01/24 18:00 11/09/24 12:27 1 STRIP Insulin Human Regular FOLLOW SLIDING SCALE Q6HR SC 11/01/24 18:00 11/09/24 00:00 2 UNITS Dextrose 50 ml UD IV 11/01/24 18:00 Amino Acids 0 ml @ 0 mls/hr PER PHARMACY IV 11/04/24 22:00 Amino Acid Protein 30 ml DAILY PO 11/04/24 10:00 Mexiletine HCl 150 mg TID PO 11/04/24 14:00 Dextrose 1,000 ml @ 50 mls/hr Q20H IV 11/04/24 12:45 11/08/24 18:18 50 MLS/HR Hydrocortisone Sodium Succinate 50 mg BID IV 11/06/24 22:00 11/09/24 10:10 50 MG Fat Emulsion Intravenous 200 ml/Sodium Acetate 10 meq/Potassium Acetate 60 meq/ Potassium Phosphate 22 meq/ Calcium Gluconate 2.3 meq/Magnesium Sulfate 4 meq/ Multivitamins 10 ml/Chromium/ Copper/Manganese/ Zinc 1 ml/Amino Acids/Dextrose/ Purified Water 1,756.9462 ml @ 73 mls/hr Q24H5M IV 11/08/24 22:00 11/09/24 21:59 11/08/24 22:13 73 MLS/HR Apixaban 5 mg BID PEG 11/10/24 10:00 Fat Emulsion Intravenous 200 ml/Potassium Acetate 30 meq/ Potassium Phosphate 22 meq/ Calcium Gluconate 2.3 meq/Magnesium Sulfate 4 meq/ Multivitamins 10 ml/Chromium/ Copper/Manganese/ Zinc 1 ml/Amino Acids/Dextrose/ Purified Water 1,736.9462 ml @ 72 mls/hr Q24H8M IV 11/09/24 22:00 11/10/24 21:59 Examination: GENERAL:Normal, LUNGS:Normal, CVS:Normal, ABDOMEN:Normal, SKIN:Normal, NEURO:Normal laboratory and microbiology Laboratory Tests 11/09/24 04:52 Test 11/09/24 04:52 Range/Units Serum Glucose 92 74-106 mg/dL Microbiology Date/Time Source Procedure Growth Status 10/20/24 04:00 Sputum Gram Stain - Final Complete 10/20/24 04:00 Respiratory Culture - Final Enterobacter cloacae Yeast, not Ilda albicans Complete 10/20/24 01:03 Urine - Cutler [place] Urine Culture - Final Yeast, not Ilda albicans Complete 10/19/24 13:02 Blood Blood Culture - Final NO GROWTH AFTER 5 DAYS OF INCUBATION. Complete 10/07/24 16:50 Nose MRSA Screen - Final Complete Labs and/or images reviewed: Labs reviewed by me, Image(s) reviewed by me Problem List/Assessment/Plan Problem List/Assessment/Plan The patient recently experienced acute hypoxic respiratory failure requiring intubation and mechanical ventilation. Following her acute hypoxic respiratory failure, the patient was successfully weaned off the ventilator. However, she developed dysphagia due to prolonged intubation, reporting difficulty swallowing and feeling food in her mouth. She is severely deconditioned as a result of her hospitalization. The patient was treated for enterobacter pneumonia, which has now resolved after completing a full course of antibiotics. Due to her dysphagia and nutritional needs, the patient is currently receiving TPN. A PEG tube placement is planned for today to facilitate long-term enteral nutrition. Marielos's medical history is significant for paroxysmal atrial fibrillation and acute chronic systolic heart failure with severely reduced left ventricular ejection fraction of 15-20%. She has coronary artery disease with history of 2- vessel CABG and cardiac arrest with ventricular fibrillation. The patient was transitioned to Eliquis 5mg BID by her crime specialist, Dr. Guerrero, for management of her cardiac conditions. Amiodarone was discontinued due to transaminitis, and she is currently on metoprolol 12.5mg TID and mexiletine 150mg TID. Her heart failure is being managed with Lasix. Cardiac arrest with ventricular fibrillation Assessment: Patient experienced cardiac arrest with ventricular fibrillation and subsequently underwent AICD placement. The patient was transitioned to Eliquis 5 mg BID by crime specialist Dr. Guerrero. Current INR is 1.03. Amiodarone was discontinued due to transaminitis. Patient is currently on metoprolol 12.5 mg TID and mexiletine 150 mg TID. Plan: - Continue Eliquis 5 mg PO BID - Continue metoprolol 12.5 mg PO TID - Continue mexiletine 150 mg PO TID - Monitor INR Coronary artery disease Assessment: Patient has a history of 2-vessel CABG. Cardiology is following the patient. Plan: - Continue current management - Follow up with cardiology as scheduled Acute chronic systolic heart failure Assessment: Patient has severely reduced left ventricular ejection fraction of 15-20%. Echo findings are consistent with severely reduced left ventricular ejection fraction and previously implanted mitral ring up to moderate. Plan: - Continue Lasix - Monitor renal function Acute hypoxic respiratory failure Assessment: Patient was intubated due to acute hypoxic respiratory failure. The patient has been successfully weaned off the ventilator. Plan: - Monitor respiratory status - Continue weaning process as tolerated Transaminitis Assessment: Patient developed transaminitis, which led to the discontinuation of amiodarone. Plan: - Reinitiate amiodarone - Monitor liver function tests Enterobacter pneumonia Assessment: Patient had enterobacter pneumonia, which has resolved after completing a full course of antibiotics. This was likely community-acquired. Plan: - Monitor for any recurrence of symptoms Paroxysmal atrial fibrillation Assessment: Patient has a history of paroxysmal atrial fibrillation and is currently on anticoagulation therapy. Plan: - Continue Eliquis as prescribed Dysphagia Assessment: Patient developed dysphagia due to prolonged time spent on ventilator. Patient reports feeling swallowing difficulty in the mouth. Plan: - PEG tube placement planned for today - Continue TPN until tube feedings are initiated Deconditioning Assessment: Patient is severely deconditioned following prolonged hospitalization and mechanical ventilation. Plan: - Consider discharge planning to SNF versus acute rehab Plan discussed with: Patient Dietary Evaluation Review Comments: 1) TF Jevity 1.2Cal @ 55 ml/hr. x 24hr along with Pro-stat 1 pk daily. Start @ 20ml/hr, increase 10ml/hr Q4H until goal is reached. TF @ goal volume provides 1684 kcal (100% energy needs), 88 gm protein (100% protein needs), 1065 ml free water. 2) Water flush 100ml Q4H if allowed, adjust PRN 3) Advance to cardiac diet as medically feasible 4) Monitor NPO status, lab values, wt trend, I/O Expected Outcomes/Goals: To meet >75% estimated needs within 7 days Lab values to improve Fu 2-3 days Date of Service: Nov 09, 2024 Billing Provider: CARLOS WHITAKER MD Common Visit Codes: [id number] INP/OBS CARE (MOD) BRAEDEN UND[employer]OD [employer] Nov 09, 2024 14:03
--- NOTE | 2024-11-09 14:36 | DVHPN2 ---
Progress Note - Dictate Date Seen: Nov 09, 2024 Has the PT tested + for MRSA If YES, has PT been informed?: No Medical Necessity Reason Pt with a Central, PICC or Fol: Yes The following are medically ne: PICC Line, Cutler Catheter Reason for cutler catheter: Strict I&O vital signs Vital Sign Date Time Temp Pulse Resp B/P (MAP) Pulse Ox O2 Delivery O2 Flow Rate FiO2 11/09/24 12:49 98.9 55 20 120/71 (87) 95 98.9 11/09/24 08:00 Room Air* 0 21 Total Intake and Output 11/08/24 11/08/24 11/09/24 15:00 23:00 07:00 Intake Total 0 ml 0 ml Output Total 1050 ml 1025 ml Balance -1050 ml -1025 ml medications Current Medications Medications Dose Ordered Sig/Liliam Route Start Time Stop Time Status Last Admin Dose Admin Amino Acids 0 ml @ 0 mls/hr PER PHARMACY IV 10/15/24 18:45 Cancel Dextrose 50 ml UD IV 10/16/24 09:30 Cancel Polyethylene Glycol 17 gm DAILYPRN PRN GT 10/17/24 16:45 10/19/24 05:54 17 GM Vancomycin HCl 0 ml @ 0 mls/hr UD IV 10/19/24 14:00 Cancel Metoclopramide HCl 5 mg BID IV 10/25/24 10:00 Hold 10/25/24 21:32 5 MG Sodium Chloride 10 ml QSHIFT@10,22 IV 10/26/24 22:00 11/09/24 10:09 10 ML Metoprolol Tartrate 12.5 mg BID PO 10/28/24 22:00 10/30/24 09:24 12.5 MG Metoprolol Tartrate 2.5 mg Q6HPRN PRN IV 10/31/24 09:15 Diagnostic Test (Pha) 1 strip Q6HR 11/01/24 18:00 11/09/24 12:27 1 STRIP Insulin Human Regular FOLLOW SLIDING SCALE Q6HR SC 11/01/24 18:00 11/09/24 00:00 2 UNITS Dextrose 50 ml UD IV 11/01/24 18:00 Amino Acids 0 ml @ 0 mls/hr PER PHARMACY IV 11/04/24 22:00 Amino Acid Protein 30 ml DAILY PO 11/04/24 10:00 Mexiletine HCl 150 mg TID PO 11/04/24 14:00 Dextrose 1,000 ml @ 50 mls/hr Q20H IV 11/04/24 12:45 11/08/24 18:18 50 MLS/HR Hydrocortisone Sodium Succinate 50 mg BID IV 11/06/24 22:00 11/09/24 10:10 50 MG Fat Emulsion Intravenous 200 ml/Sodium Acetate 10 meq/Potassium Acetate 60 meq/ Potassium Phosphate 22 meq/ Calcium Gluconate 2.3 meq/Magnesium Sulfate 4 meq/ Multivitamins 10 ml/Chromium/ Copper/Manganese/ Zinc 1 ml/Amino Acids/Dextrose/ Purified Water 1,756.9462 ml @ 73 mls/hr Q24H5M IV 11/08/24 22:00 11/09/24 21:59 11/08/24 22:13 73 MLS/HR Apixaban 5 mg BID PEG 11/10/24 10:00 Fat Emulsion Intravenous 200 ml/Potassium Acetate 30 meq/ Potassium Phosphate 22 meq/ Calcium Gluconate 2.3 meq/Magnesium Sulfate 4 meq/ Multivitamins 10 ml/Chromium/ Copper/Manganese/ Zinc 1 ml/Amino Acids/Dextrose/ Purified Water 1,736.9462 ml @ 72 mls/hr Q24H8M IV 11/09/24 22:00 11/10/24 21:59 laboratory and microbiology Laboratory Tests 11/09/24 04:52 Test 11/09/24 04:52 Range/Units Serum Glucose 92 74-106 mg/dL Assessment/Plan impression s/p cardiac arrest VT CPR <5 min elevated troponin acute resp failure atelectases pt seen and examined events s/p extubation low oxygen requirements on room air no distress s/p pacemaker management plan supplemental oxygen as needed titrate to maintain sats 90% or above incentive spirometry aspiration precautions cont abx monitor cx monitor labs renal function daily abg and CXR dvt proph/on aggressive physical therapy f/u cardiology Dietary Evaluation Review Comments: 1) TF Jevity 1.2Cal @ 55 ml/hr. x 24hr along with Pro-stat 1 pk daily. Start @ 20ml/hr, increase 10ml/hr Q4H until goal is reached. TF @ goal volume provides 1684 kcal (100% energy needs), 88 gm protein (100% protein needs), 1065 ml free water. 2) Water flush 100ml Q4H if allowed, adjust PRN 3) Advance to cardiac diet as medically feasible 4) Monitor NPO status, lab values, wt trend, I/O Expected Outcomes/Goals: To meet >75% estimated needs within 7 days Lab values to improve Fu 2-3 days Plan discussed with: Patient BELLO ROTHMAN MD Nov 09, 2024 14:36
[2024-11-09] MEDS: fentaNYL CITRATE 100 MCG/2 ML VL ONE (16:25)
[2024-11-09] MEDS: MIDAZOLAM HCL 2MG/2ML 2ml VIAL (1mg/ml) ONE (16:25)
[2024-11-09] MEDS: diphenhdrAMINE HCL 50 MG/1 ML VL ONE (16:31)
--- NOTE | 2024-11-09 16:53 | DVHOP2 ---
Operative Report DATE OF OPERATION: 11/09/24 PROCEDURE: Upper Endoscopy with PEG tube placement. PREOPERATIVE INDICATION: The patient is a 54 -year-old female undergoing endoscopy for history of cardiac arrest, cardiopulmonary compromise, oropharyngeal dysphagia and failed swallow evaluation x3 POSTOPERATIVE DIAGNOSES: 1. Upper endoscopy examination was essentially a normal examination up to the 2nd part of the duodenal with mild bile stasis 2. A percutaneous gastrostomy tube was placed were standard protocol by Dr. Daniella Anglin using endoscopic guidance and assistance PROCEDURE PERFORMED BY: Candi Anglin visitor use assistant: Dr. Shailesh Anglin GI NURSE: Concha SCOPE: Olympus videoendoscope. ASA CLASS: 3 PREOPERATIVE MEDICATIONS: Versed 2 mg, Fentanyl 25 mcg, Benadryl 25 mg Ancef 2 g IV perioperatively I administered moderate sedation throughout this _12_ minutes procedure. An independent trained observer pushed medications at my direction, and monitored the patient's level of consciousness and physiological status throughout. PROCEDURE IN DETAIL: After obtaining an informed consent, the patient was placed on left lateral decubitus position. The patient was then sedated with the above medications. A bite block was placed between her teeth. The endoscope was then passed through the oropharynx, into the esophagus, and through the stomach and pylorus up to the second and third part of the duodenum. The endoscope was then withdrawn. The 2nd and 3rd part of the duodenum and the duodenal bulb were normal. The pre-pyloric area antrum and body was normal Patient had mild bile stasis. On retroflexion the fundus and cardia were normal. There was no significant hiatal hernia or esophagitis The endoscope was passed back into the stomach and the stomach was insufflated. The light from the endoscope was clearly visible through the anterior abdominal wall A percutaneous gastrostomy tube was placed through the anterior abdominal wall under sterile conditions by Dr. Daniella Anglin using endoscopic guidance and assistance as per standard protocol I performed a repeat endoscopy to confirm adequate placement. The G-tube site was dressed in a sterile fashion and an abdominal binder was placed The patient tolerated the procedure well without difficulty. COMPLICATIONS : None SPECIMENS: None DISPOSITION: Transfer back to the floor Stable PLAN: 1. See post PEG tube placement instructions 2. Will place pt on Protonix 40 mg IV twice a day 3. Hold on Lovenox and blood thinners for 48 hours CANDI ANGLIN MD Nov 09, 2024 16:53
--- NOTE | 2024-11-09 17:18 | DVHOP ---
DATE OF SURGERY: 11/09/2024 PREOPERATIVE DIAGNOSES: Dehydration and malnutrition. POSTOPERATIVE DIAGNOSES: Dehydration and malnutrition. PROCEDURE: PEG placement in conjunction with Dr. Kirstie Anglin's endoscopy. EGD part was done by her and she will be dictating that part and my part was the surgical part. DESCRIPTION OF PROCEDURE: The patient was prepped and draped in the usual sterile fashion in the supine position with the upper abdomen exposed. Endoscopy was carried out by Dr. Kirstie Anglin and a suitable spot was selected in the upper abdomen after the light was seen shining through. Lidocaine was infiltrated in the vicinity and a small incision was applied. The Angiocath needle was advanced through the incision into the anterior wall of the stomach and then the needle was withdrawn and the guidewire was advanced through the trocar that was left in place and the guidewire was grasped by the endoscope, pulled out from the mouth and the G-tube was engaged with the guidewire, pulled back into the mouth and into the esophagus and then into the anterior wall of the abdomen. The cuff was well situated and located and confirmed by the repeat endoscopy and the final connection of the G-tube was done and a dressing was applied. The patient tolerated the procedure well with no complications and she was taken back to the recovery room in stable condition. MD MIRANDA Rust/MANUEL TID: [id number] RECEIPT: [id number] cc: Siobhan Schultz
--- NOTE | 2024-11-09 19:07 | DVHINCON2 ---
DATE OF CONSULTATION: 11/09/2024 HISTORY OF PRESENT ILLNESS: This patient is 54 years old, unable to give history. Most of the information obtained from the chart. She has a history of paroxysmal atrial fibrillation, ventricular tachycardia, congenital heart disease, multiple episodes of cardiac arrest and was only having ongoing sepsis and she was discharged from [facility] in [place]. Following that, she was traveling and experienced another cardiac arrest and then she was found to be in ventricular fibrillation, successfully resuscitated and was intubated and admitted to the ICU. She underwent left heart catheterization and transesophageal echocardiogram and she apparently recovered from that and then a request was made for a PEG tube placement and I was asked to see her with regard to assisting Dr. Kirstie Anglin for the PEG tube placement via her endoscopy. PHYSICAL EXAMINATION: VITAL SIGNS: Afebrile, stable signs. HEENT: With no evidence of pallor, cyanosis, or jaundice. NECK: Supple and nontender, with no thyromegaly or lymphadenopathy. CHEST AND LUNGS: Clear. HEART: Within normal limits. ABDOMEN: Soft. NEUROLOGIC: Not assessed. EXTREMITIES: Reveals dehydration and malnutrition. PLAN: Plan was to place a PEG tube in conjunction with Dr. Kirstie Anglin via endoscopy. MD MIRANDA Rust/BEATRIZ TID: [id number] RECEIPT: [id number] cc: Gissel Gomez
[2024-11-09] MEDS: POTASSIUM PHOSPHATE IV NR (21:50)
[2024-11-09] MEDS: FAT EMULSION IV NR (21:50)
[2024-11-09] MEDS: POTASSIUM ACETATE IV NR (21:50)
[2024-11-09] MEDS: [UNRECOGNIZED DRUG - OTHER] IV NR (21:50)
[2024-11-09] MEDS: PANTOPRAZOLE 40 MG/10 ML VIAL INJ IV SCH (21:54)
--- NOTE | 2024-11-09 23:46 | DVHPN2 ---
Progress Note - Dictate Date Seen: Nov 09, 2024 Has the PT tested + for MRSA If YES, has PT been informed?: No Medical Necessity Reason Pt with a Central, PICC or Fol: Yes The following are medically ne: PICC Line, Cutler Catheter Reason for cutler catheter: Strict I&O Subjective Ms. Smith is a 54 years old female who was brought to the [facility] on 10/07/2024 with a chief complaint of cardiopulmonary arrest/status post CPR. I have seen and examined the patient, I have discussed the case with her sitter and nurse, the patient is oriented to herself, sometimes she knows the place She did not sit up without support She has PET insert on 11/09/2024 Blood culture, 10/09/2024: No growth Blood culture, 10/19/2024: UDS, 10/07/2024: Negative Urinalysis, 10/07/2024: Leukocyte esterase: Negative WBC/HB/PLT/MCV, 10/09/2024: 20/8.8/219/94.6, 10/10/2024: 21.2/8.7/232/92.2 PT/INR/PTT, 10/08/2024: 12.4/1.19/72.7, 10/09/2024: 13.1/1.26/68.9, 10/10/2024: 14.4/2/1.38/35.3 CMP, 10/08/2024: Unremarkable Troponin one high sensitivity, 10/07/2024: 141, 138, 117 TBI/AST/ALT/AP, 10/10/2024: 0.5/538/168/144, 10/11/2024: 0.6/293/199/152, 10/14/2024: 0.8/68/74/124 TG/HDL/LDL/HDL, 10/07/24: 71/66/31/21 EKG 10/10/2024: Atrial fibrillation EKG, 10/15/2024: Atrial fibrillation Echocardiogram, 10/07/2024: lvef 15-20% dilated LV severe global dysfunction mild RV dysfunction biatrial enlargement mild moderate MAC, moderate mitral regurg mild to moderate aortic regug RICHIE, 10/08/2024: 1. Left ventricle: Dilated LV was seen. LVEF was 25%. There was diffuse hypokinesis of left ventricle. 2. Right ventricle: RV was mildly dilated. 3. Left atrium: LA enlarged 4. Right atrium: RA was enlarged. 5. Mitral valve: Mitral was thickened with reduced opening. Moderate Mitral regurgitation was seen. Planinomentry of valve (TTE images also obtained) revealed MVA of 2.1 cm. Mean pressure gradient (obtained from limited TTE images) was 5. Images are consistent with previously implanted Ring in Mitral position. Consistent with up to Moderate Mitral stenosis. . There was no vegetation 6. Left atrial appendage: No evidence of thrombus. 7. Aortic valve: Trileaflet valve. No stenosis. Up to moderate Aortic Insufficiency was seen. There was no vegetation 8. Pulmonic valve: Trivial pulmonic insufficiency. No significant stenosis. 9. Tricuspid valve: Mild tricuspid regurgitation. There was no vegetation 10. Interatrial septum: Negative color flow for right to left shunt was observed. Bubble study was performed: negative for shunt 11. Pericardium: No significant effusion. 12. Thoracic aorta: No significant plaquing. Chest x-ray, 10/27/2024: 1. Cardiomegaly, stable diffuse increased prominence of the pulmonary vasculature and small bilateral pleural effusions. 2. Slight interval advancement of endotracheal tube as above. Remaining lines and tubes unchanged. CT head, 10/07/2024: No acute intracranial abnormality General: the patient is well developed and nourished. No acute distress. Intubated CT head, 10/07/2024: No acute intracranial abnormality. CT head, 10/11/2024: No acute intracranial abnormality CT head, 11/01/2024: As above, the other systems are negative vital signs Vital Sign Date Time Temp Pulse Resp B/P (MAP) Pulse Ox O2 Delivery O2 Flow Rate FiO2 11/09/24 22:00 58 121/67 11/09/24 21:00 97.5 19 98 97.5 11/09/24 20:00 Room Air* 1 N/A Nasal Cannula* Total Intake and Output 11/08/24 11/08/24 11/09/24 15:00 23:00 07:00 Intake Total 0 ml 0 ml Output Total 1050 ml 1025 ml Balance -1050 ml -1025 ml medications Current Medications Medications Dose Ordered Sig/Liliam Route Start Time Stop Time Status Last Admin Dose Admin Amino Acids 0 ml @ 0 mls/hr PER PHARMACY IV 10/15/24 18:45 Cancel Dextrose 50 ml UD IV 10/16/24 09:30 Cancel Polyethylene Glycol 17 gm DAILYPRN PRN GT 10/17/24 16:45 10/19/24 05:54 17 GM Vancomycin HCl 0 ml @ 0 mls/hr UD IV 10/19/24 14:00 Cancel Metoclopramide HCl 5 mg BID IV 10/25/24 10:00 Hold 10/25/24 21:32 5 MG Sodium Chloride 10 ml QSHIFT@10,22 IV 10/26/24 22:00 11/09/24 21:54 10 ML Metoprolol Tartrate 12.5 mg BID PO 10/28/24 22:00 10/30/24 09:24 12.5 MG Metoprolol Tartrate 2.5 mg Q6HPRN PRN IV 10/31/24 09:15 Diagnostic Test (Pha) 1 strip Q6HR 11/01/24 18:00 11/09/24 18:00 1 STRIP Insulin Human Regular FOLLOW SLIDING SCALE Q6HR SC 11/01/24 18:00 11/09/24 00:00 2 UNITS Dextrose 50 ml UD IV 11/01/24 18:00 Amino Acids 0 ml @ 0 mls/hr PER PHARMACY IV 11/04/24 22:00 Amino Acid Protein 30 ml DAILY PO 11/04/24 10:00 Mexiletine HCl 150 mg TID PO 11/04/24 14:00 Dextrose 1,000 ml @ 50 mls/hr Q20H IV 11/04/24 12:45 11/09/24 14:30 50 MLS/HR Hydrocortisone Sodium Succinate 50 mg BID IV 11/06/24 22:00 11/09/24 21:54 50 MG Apixaban 5 mg BID PEG 11/10/24 10:00 Fat Emulsion Intravenous 200 ml/Potassium Acetate 30 meq/ Potassium Phosphate 22 meq/ Calcium Gluconate 2.3 meq/Magnesium Sulfate 4 meq/ Multivitamins 10 ml/Chromium/ Copper/Manganese/ Zinc 1 ml/Amino Acids/Dextrose/ Purified Water 1,736.9462 ml @ 72 mls/hr Q24H8M IV 11/09/24 22:00 11/10/24 21:59 11/09/24 21:50 72 MLS/HR Enteral Nutritional Formula 30 ml Q1HR PO 11/10/24 06:00 Pantoprazole Sodium 40 mg BID IV 11/09/24 22:00 11/09/24 21:54 40 MG objective The patient is well-nourished and well-developed with no distress. MENTAL STATUS: Subjective CRANIAL NERVES: Pupils are equal, round and reactive. EOMs full and conjugate. Facial sensation intact in all three divisions bilaterally. Mandibular strength intact. Facial muscles symmetrical and strength intact. SENSATION: Okay to pinprick and light touch MOTOR: Normal tone in the upper and lower extremity. Normal muscle bulk. No fasciculations. She move the arms and legs REFLEXES: Deep tendon reflexes are symmetrical. No pathological reflexes. CEREBELLAR/COORDINATION: Deferred GAIT/STATION: deferred. laboratory and microbiology Laboratory Tests 11/09/24 04:52 Test 11/09/24 04:52 Range/Units Serum Glucose 92 74-106 mg/dL Problem List Cardiopulmonary arrest Status post CPR Metabolic encephalopathy Hypoxic encephalopathy Congestive heart failure Leukocytosis/sepsis/septic shock Respiratory failure Elevated liver function tests AFib S/P pacemaker insertion on 10/17/2024 ? Chronic organic brain syndrome Assessment/Plan Monitoring Supportive treatment Telemetry DVT prophylaxis GI prophylaxis Cardiology on case Pulmonology on case Nephrology on case Need more history This medical document was created using an electronic medical record system with [employer] dictation system. Although this document has been carefully reviewed, there may still be some phonetic and typographical errors. These areas are purely typographical due to imperfections of the software programs, and do not reflect any compromise in the patient's medical care. Prognosis poor Dietary Evaluation Review Comments: 1) TF Jevity 1.2Cal @ 55 ml/hr. x 24hr along with Pro-stat 1 pk daily. Start @ 20ml/hr, increase 10ml/hr Q4H until goal is reached. TF @ goal volume provides 1684 kcal (100% energy needs), 88 gm protein (100% protein needs), 1065 ml free water. 2) Water flush 100ml Q4H if allowed, adjust PRN 3) Advance to cardiac diet as medically feasible 4) Monitor NPO status, lab values, wt trend, I/O Expected Outcomes/Goals: To meet >75% estimated needs within 7 days Lab values to improve Fu 2-3 days Plan discussed with: CAROLINE Shaw MD Nov 09, 2024 23:46
[2024-11-10] VITALS (8 sets, daily range): BP systolic 107–124; BP diastolic 59–75; PULSE 55–63; RESP 18–20; TEMP 97.4–97.7; O2SAT 95–99
[2024-11-10] MEDS: KETOROLAC TROMETH 30 MG/ML 1ML VIAL IV ONE (02:10)
[2024-11-10] MEDS: Ensure Enlive Vanilla 8oz Bottle PO SCH (06:00)
[2024-11-10 06:39] LABS: Hematocrit 29.7 % (36.0-46.0); Hemoglobin 9.7 g/dL (12.2-16.2)
[2024-11-10 06:42] LABS: Mean Corpuscular Hemoglobin 30.8 pg (28.0-32.0); Mean Corpuscular Volume 93.6 fL (80.0-100.0); Nucleated Red Blood Cells % 0.0 %
--- NOTE | 2024-11-10 06:54 | DVHPN2 ---
Progress Note - Dictate Date Seen: Nov 10, 2024 Has the PT tested + for MRSA If YES, has PT been informed?: No Medical Necessity Reason Pt with a Central, PICC or Fol: Yes The following are medically ne: PICC Line, Cutler Catheter Reason for cutler catheter: Strict I&O vital signs Vital Sign Date Time Temp Pulse Resp B/P (MAP) Pulse Ox O2 Delivery O2 Flow Rate FiO2 11/10/24 05:00 97.5 62 19 116/63 (80) 99 97.5 11/09/24 20:00 Room Air* 1 N/A Nasal Cannula* Total Intake and Output 11/09/24 11/09/24 11/10/24 15:00 23:00 07:00 Intake Total 1000 ml 500 ml 0 ml Output Total 400 ml 600 ml Balance 1000 ml 100 ml -600 ml medications Current Medications Medications Dose Ordered Sig/Liliam Route Start Time Stop Time Status Last Admin Dose Admin Amino Acids 0 ml @ 0 mls/hr PER PHARMACY IV 10/15/24 18:45 Cancel Dextrose 50 ml UD IV 10/16/24 09:30 Cancel Polyethylene Glycol 17 gm DAILYPRN PRN GT 10/17/24 16:45 10/19/24 05:54 17 GM Vancomycin HCl 0 ml @ 0 mls/hr UD IV 10/19/24 14:00 Cancel Metoclopramide HCl 5 mg BID IV 10/25/24 10:00 Hold 10/25/24 21:32 5 MG Sodium Chloride 10 ml QSHIFT@10,22 IV 10/26/24 22:00 11/09/24 21:54 10 ML Metoprolol Tartrate 12.5 mg BID PO 10/28/24 22:00 10/30/24 09:24 12.5 MG Metoprolol Tartrate 2.5 mg Q6HPRN PRN IV 10/31/24 09:15 Diagnostic Test (Pha) 1 strip Q6HR 11/01/24 18:00 11/10/24 05:57 1 STRIP Insulin Human Regular FOLLOW SLIDING SCALE Q6HR SC 11/01/24 18:00 11/10/24 05:58 4 UNITS Dextrose 50 ml UD IV 11/01/24 18:00 Amino Acids 0 ml @ 0 mls/hr PER PHARMACY IV 11/04/24 22:00 Amino Acid Protein 30 ml DAILY PO 11/04/24 10:00 Mexiletine HCl 150 mg TID PO 11/04/24 14:00 Dextrose 1,000 ml @ 50 mls/hr Q20H IV 11/04/24 12:45 11/09/24 14:30 50 MLS/HR Hydrocortisone Sodium Succinate 50 mg BID IV 11/06/24 22:00 11/09/24 21:54 50 MG Apixaban 5 mg BID PEG 11/10/24 10:00 Fat Emulsion Intravenous 200 ml/Potassium Acetate 30 meq/ Potassium Phosphate 22 meq/ Calcium Gluconate 2.3 meq/Magnesium Sulfate 4 meq/ Multivitamins 10 ml/Chromium/ Copper/Manganese/ Zinc 1 ml/Amino Acids/Dextrose/ Purified Water 1,736.9462 ml @ 72 mls/hr Q24H8M IV 11/09/24 22:00 11/10/24 21:59 11/09/24 21:50 72 MLS/HR Enteral Nutritional Formula 30 ml Q1HR PO 11/10/24 06:00 Pantoprazole Sodium 40 mg BID IV 11/09/24 22:00 11/09/24 21:54 40 MG laboratory and microbiology Laboratory Tests 11/10/24 04:57 Test 11/10/24 04:57 Range/Units Serum Glucose Pending Assessment/Plan Assessment/Plan In Tele. Failed swallowing evaluation. Status post PEG 11/09/2024. Initiated on tube feeding as per GI recommendations Patient is a 54-year-old female who was brought to the hospital for witnessed syncope. She is intubated and is being managed in ICU. Information was obtained by reviewing the chart and communicating with patient's son (over the phone). Family recognized witnessed syncope and started CPR and called EMS. Reportedly, EMS found the patient in ventricular fibrillation and shocked the patient and brought the patient to the hospital. Patient was intubated in emergency room and transferred to ICU. Patient was on amiodarone drip. Later the patient had ventricular tachycardia (Systane). High sensitive troponin had been minimally/flatly elevated. Presentation was not in favor of acute coronary syndrome. Cardiology is involved for cardiac aspects of care. NAD Does not talk. Alert and oriented to self only. No JVD. Mucosa pale. No carotid bruit. Scattered rhonchi in the lungs is heard. Cardiac: Regular, no thrill. Systolic murmur 2/6 in apex is heard. Abdomen is soft. No edema in extremities. Past medical history as per son: Congenital heart disease, status post bypass WBC: 14.5 - 11.9 - 18.8 - 20.0 - 21.2 - 14.3 - 10.3 - 8.9 - 9.2 - 11.1 - 12.1 - 10.8 - 12.0 - 9.9 - 15.4 - 14.8 - 12.1 - 10.5 - 5.8 - 5.3 - 4.2 - 5.8 - 4.1 - 7.0 - 9.3 - 8.3 - 11.5 - 8.4 - 8.4 - 5.4 - 5.7 - 8.4 - 7.4 - 6.5 Hemoglobin: 10.1 - 9.6 - 9.2 - 8.8 - 8.7 - 8.0 - 8.3 - 8.5 - 7.8 - 10.2 - 10.7 - 9.9 - 9.7 - 9.3 - 9.3 - 8.6 - 8.1 - 7.4 - 7.5 - 7.4 - 7.5 - 7.2 - 7.7 - 7.0 - (post PRBC transfusion) 10.4 - 10 - 9.5 - 10.0 - 9.2 - 9.8 -9.6 - 9.7 - 10.2 - 10.6 - 9.7 Creatinine: 0.95 - 0.93 - 0.87 - 0.83 - 0.83 - 0.76 - 0.68 - 0.72 - 0.79 - 0.76 - 0.80 - 0.84 - 0.61 - 0.65 - 0.74 - 0.64 - 0.73 - 0.82 - 0.88 - 1.03 - 0.99 - 0.85 - 0.87 - 0.79 - 1.12 - 1.15 - 1.04 - 0.96 - 0.94 - 0.93 - 0.78 - 0.71 - 0.68 - 0.61 - 0.59 - 0.49 - 0.54 Potassium: 3.4 - 4.0 - 4.6 - 3.5 - 3.3 - 4.1 - 3.7 - 3.2 - 3.7 - 4.0 - 3.2 - 3.4 - 3.9 - 4.2 - 3.3 - 3.8 - 3.6 - 3.4 - 4.2 - 3.8 - 4.5 - 4.1 - 3.5 - 4.2 - 3.3 - 2.6 - 3.5 - 3.8 - 2.4 - 2.9 - 4.6 - 2.8 - 4.8 - 4.9 - 3.4 - 3.1 - 3.7 - 4.4 - 3.7 - 3.7 - 3.1 - 3.0 - 3.8 - 4.4 - 3.8 - 4.1 - 3.9 Magnesium: 2.0 - 1.6 - 2.0 - 3.0 - 1.5 - 1.9 - 2.1 - 1.8 - 2.0 - 1.9 - 1.9 - 2.6 - 2.0 - 1.8 - 1.6 - 2.0 - 2.2 - 1.9 - 2.3 - 2.2 - 2.2 - 2.1 - 2.1 - 1.9 2.7 - 2.6 - 2.3 - 2.4 - 2.5 - 2.3 - 2.5 - 2.3 - 2.3 - 2.4 - 2.1 - 1.9 today's pending Troponin (high sensitive): 141 - 138 - 117 BNP: 457.16 - 1073.91 AST/ALT: 32/11 - 19/13 - 538/168 - 293/152 - 131/130 - 78/94 - 68/74 - 48/57 - 27/38 - 15/23 - 20/18 - 23/17 - 29/16 - 27/13 - 34/17 - 73/49 - 41/43 - 30/47 - 30/42 - 29/42 - 17/27 - 160/87 - 900/478 - 986/571 - 382/436 - 110/244 - 42/170 - 22/113 - 16/77 - 15/59 - 19/50 - 14/25 Digoxin level: 2.83 - 1.25 - 0.98 UDS: non-revealing Chest x-ray revealed: Lines and Tubes: Endotracheal tube tip projects approximately 1.4 cm above the level of the tyler. Enteric catheter courses below the lateral of the diaphragm and terminates beyond the inferior margin of the image. Right internal jugular central venous catheter terminates within the distal superior vena cava. Lungs: Moderate diffuse increased prominence of the pulmonary vasculature without evidence of focal consolidation. Pleura: No effusion. No pneumothorax. Cardiomediastinal contours: Cardiomegaly. Bones: Unremarkable IMPRESSION: 1. Cardiomegaly and diffuse increased prominence of the pulmonary vasculature. 2. Lines and tubes as above. Repeat chest x-ray revealed: IMPRESSION: 1. Endotracheal tube tip 1.6 cm above the tyler; consider 2 cm retraction 2. Mild pulmonary vascular congestion. Moderate cardiomegaly. Repeat chest xry revealed: IMPRESSION: Endotracheal tube tip 1.6 cm above the tyler; consider 2 cm retraction Mild pulmonary vascular congestion. Moderate cardiomegaly. Repeat chest xry revealed: IMPRESSION: 1. Stable cardiomegaly, small left pleural effusion and mild diffuse increased prominence of the pulmonary vasculature. 2. Repositioned endotracheal tube as above. Remaining lines and tubes unchanged. Repeat chest xry revealed: IMPRESSION: 1. Cardiomegaly, stable diffuse increased prominence of the pulmonary vasculature and small bilateral pleural effusions. 2. Slight interval advancement of endotracheal tube as above. Remaining lines and tubes unchanged. Repeat chest xry revealed: IMPRESSION: 1. Slight interval decrease in diffuse increased prominence of the pulmonary vasculature. 2. Stable cardiomegaly and small left pleural effusion. 3. Lines and tubes unchanged. Repeat chest xry revealed: IMPRESSION: 1. Cardiomegaly and small left pleural effusion. 2. Lines and tubes unchanged. Repeat chest xry revealed: IMPRESSION: Stable lines and tubes. Similar lung aeration. Repeat chest xry revealed: IMPRESSION: Cardiomegaly and small left pleural effusion. Lines and tubes unchanged. Repeat chest xry revealed: IMPRESSION: Placement of a cardiac pacer, no pneumothorax is seen. Stable lines and tubes. Repeat chest xry revealed: IMPRESSION: 1. Worsening mixed opacities in the right lower lung. No other significant change from the previous study. Stable support devices. Repeat chest xry revealed: Heart is prominent in size with postsurgical changes, median sternotomy wires, and a single lead left cardiac defibrillator. Support lines and tubes appear unchanged in satisfactory in position. No sizable effusion or pneumothorax. Mild pulmonary vascular congestion. No significant interval change. Repeat chest xry revealed: IMPRESSION: 1. No significant change from the previous study. Stable support devices. Similar findings of heart failure including left pleural effusion. Repeat chest xry revealed: IMPRESSION: 1. No significant change from the previous study. Stable support devices. Similar findings of heart failure including trace left pleural effusion. Repeat chest xry revealed: Lines and Tubes: Unchanged. Left anterior chest wall cardiac pacing device. Lungs: Clear Pleura: No effusion. No pneumothorax. Cardiomediastinal contours: Cardiomegaly. Bones: Unremarkable IMPRESSION: 1. Cardiomegaly. 2. Lines and tubes unchanged. Repeat chest xry revealed: IMPRESSION: Lines and tubes in satisfactory position. No significant interval change. Repeat chest xry revealed: Lines and Tubes: ET tube and NG tube removed. Lungs: Congestion Pleura: No effusion. No pneumothorax. Cardiomediastinal contours: Cardiomegaly Bones: Unremarkable IMPRESSION: 1. Cardiomegaly with CHF. Repeat chest xry revealed: IMPRESSION: 1. Cardiomegaly. 2. Patchy bilateral airspace disease. Liver Ultrasound revealed: Hepatic steatosis. Trace right pleural effusion. Trace ascites Gallstones Bladder ultrasound revealed: IMPRESSION: 1. Cutler catheter in the bladder in the bladder is decompressed. Repeat Bladder Ultrasound revealed: Urinary bladder is unremarkable with prevoid volume of 29 mL. Urinary bladder wall measures 1.5 mm. Cutler catheter is noted. KUB revealed: IMPRESSION: Nonobstructive bowel gas pattern. Nasogastric tube tip in the stomach. Large stool burden. Repeat KUB revealed: Right lower extremity PICC line with tip projecting over the expected region of the intrahepatic IVC. Nasogastric tube projecting towards the distal stomach. Nonspecific bowel gas pattern. Cardiomegaly and left basilar airspace opacities, incompletely characterized. Atherosclerotic calcification disease. Left upper ext arterial duplex: IMPRESSION: No hemodynamically significant stenosis based on peak systolic velocity criteria. Left lower ext arterial duplex: IMPRESSION: There is no evidence for peripheral vascular insufficiency in the left lower extremity. No significant focal stenosis is identified. Liver Ultrasound revealed: Hepatic steatosis. Hepatomegaly. Cholelithiasis. CT of the head revealed: IMPRESSION: No acute intracranial abnormality. Repeat CT of head revealed: IMPRESSION: No acute intracranial abnormality. Repeat CT of Head revealed: IMPRESSION: No acute intracranial abnormality. Echocardiogram reported: lvef 15-20% dilated LV severe global dysfunction mild RV dysfunction biatrial enlargement mild moderate MAC, moderate mitral regurg mild to moderate aortic regug (images of echo reviewed and questioned presence of mitral ring and also some component (moderate of Mitral stenosis) EKG revealed sinus rhythm Telemetry revealed occasions of atrial fibrillation. There was occasional sustained ventricular tachycardia. EMS tele monitor revealed ventricular fibrillation for which the patient was shocked. Has remained sinus rhythm. Later with A-fib with MVR LHC revealed: Patent RICHMOND to LAD; Patent SVG to obtuse marginal; LVEF of 20% with increased EDP; Proximal disease in LAD/LCX RICHIE was performed: Consistent with severely reduced LVEF. Consistent with previously implanted Mitral ring, Up to moderate Mitral stenosis/Mitral Regurgitation and also Moderate Aortic insufficiency. Patient is a 54-year-old female who presented with witnessed syncope. She was found to have ventricular fibrillation for which was shocked. Later had repeated episode of sustained ventricular tachycardia. Patient has been kept in ICU. Does have baseline history of coronary artery disease for which has had bypass surgery. Left heart catheterization was performed which revealed patent RICHMOND and patent SVG. ACS is not considered at this point. It is of note that the patient's echocardiogram reveals significantly use systolic function. Valvular heart disease is considered. Findings are in favor of previously implanted mitral ring. By reviewing the echo images, component of up to moderate mitral stenosis could not be ruled out. LHC was performed that ruled out any active specific ischemia as an etiology for presentation. Is off Amiodarone for abnormal LFT. Being followed by Nephrology / Pulmonary / Neurology / GI ID. Tele has remained sinus rhythm. Had episode of a-fib with RVR. Was loaded with Digoxin. Dig level was performed at wrong timing (only 5 hours after the last Dig given). Dig toxicity is not considered. Patient is back to normal sinus rhythm. Has good kidney function. Repeat Dig level is acceptable level. s/p ICD implantation by EP. Intubated, later extubated. Syncope V-fib s/p shock Sustained V-tach Paroxysmal A-fib VHD, s/p Mitral ring Systolic heart failure Abnormal LFT, at a point resolved, later appeared again s/p ICD (Biotronik) implantation by EP (Dr Armstrong) s/p PRBC transfusion for significant anemia Hepatic Steatosis Gallstones Failed Swallowing To go for PEG Cardiac suggestion for management: Manage in Tele Follow up electrolytes and kidney function test and correct abnormalities Full anticoagulation (a-fib with high CHADS-Vasc score). s/p ICD implantation. To start Eliquis (after performance of possible PEG tube placement): for now on prophylactic dose of Lovenox Off Amio drip (worsened LFT) On Mexiletine If need for pressure support: use Phenyl Ephrine / vasopressin, keep MAP above 65 (for now off pressure support and tolerating) On Metoprolol to decrease risk of Vtach (as patient has ICD with bradycardia protection: may continue metoprolol in case of bradycardia, but hold: if hypotensive) May consider/add Esmolol for PVC/Vtach (if needed) Does not talk. Alert and oriented to self only. As she has not passed swallowing evaluation: IV Metoprolol if needed (HR above 100) s/p ICD (Biotronik) implantation by EP Eliquis: 2.5 mg BID: when she can swallow and after any predicted procedure completed (if needed to have PEG, to have it started after performing PEG): for now: Lovenox s/p PRBC transfusion for anemia Failed swallowing evaluation for now Cardiac arenas, patient is moderate risk patient for moderate risk PEG placement. Avoid Hypotension. Pulmonary Follow up GI follow up for repeated failed swallowing evaluation Provide previous medical records from reaching out to previous hospitals in [facility]... Further evaluation and management depends on the above and clinical course. A total of 55 minutes was spent reviewing the patient record, examining the patient, making a diagnostic and therapeutic plan, discussing this plan with medical personnel, following up on diagnostic studies and following the patient for clinical stability excluding any and all procedures. At least 50% of this time was spent in direct, [id number] contact. Thank you for allowing me to participate in this patient's care. Further recommendations will depend on patient's clinical course. Please do not hesitate to contact me if you have any questions or concerns. This medical document was created using electronic medical record system with [employer] computerized dictation system. Although this document has been carefully reviewed, there may still be some phonetic and typographical errors. These areas are purely typographical due to the imperfection of the software programs, and do not reflect any compromise in the patient's medical care. Dietary Evaluation Review Comments: 1) TF Jevity 1.2Cal @ 55 ml/hr. x 24hr along with Pro-stat 1 pk daily. Start @ 20ml/hr, increase 10ml/hr Q4H until goal is reached. TF @ goal volume provides 1684 kcal (100% energy needs), 88 gm protein (100% protein needs), 1065 ml free water. 2) Water flush 100ml Q4H if allowed, adjust PRN 3) Advance to cardiac diet as medically feasible 4) Monitor NPO status, lab values, wt trend, I/O Expected Outcomes/Goals: To meet >75% estimated needs within 7 days Lab values to improve Fu 2-3 days Plan discussed with: Patient (patient and primary rn ) TUCKER CRUZ ACETYLENE BURNER Nov 10, 2024 06:54
[2024-11-10 07:05] LABS: Alanine Aminotransferase 25 U/L (7-40); Alkaline Phosphatase 83 U/L (46-116); Anion Gap 11 (5-15); BUN/Creatinine Ratio 37.0 (10.0-20.0); Bilirubin, Total 0.8 mg/dL (0.2-1.0); Blood Urea Nitrogen 20 mg/dL (9-23); Magnesium 2.1 mg/dL (1.6-2.6); Potassium 3.9 mmol/L (3.5-5.1); Sodium 140 mmol/L (136-145)
[2024-11-10 07:06] LABS: Albumin 3.0 g/dL (3.2-4.8); Calcium 8.3 mg/dL (8.7-10.4); Carbon Dioxide 20 mmol/L (20-31); Chloride 109 mmol/L (98-107); Glucose 158 mg/dL (74-106); Total Protein 5.1 g/dL (5.7-8.2)
[2024-11-10 07:42] LABS: INR 1.05 (0.9-1.15); Prothrombin Time 11.1 sec (9.3-11.8)
[2024-11-10] MEDS ORDERED: APIXABAN 5 MG TAB PEG SCH (10:00)
--- NOTE | 2024-11-10 11:12 | DVHPN2 ---
Progress Note Date Seen: Nov 10, 2024 Has the PT tested + for MRSA If YES, has PT been informed?: No Medical Necessity Reason Pt with a Central, PICC or Fol: No The following are medically ne: PICC Line, Cutler Catheter Reason for cutler catheter: Strict I&O Subjective Review of Systems: Not Done (unable to obtain) Objective vital signs Vital Sign Date Time Temp Pulse Resp B/P (MAP) Pulse Ox O2 Delivery O2 Flow Rate FiO2 11/10/24 08:39 97.4 55 18 124/71 (88) 98 97.4 11/09/24 20:00 Room Air* 1 N/A Nasal Cannula* Total Intake and Output 11/09/24 11/09/24 11/10/24 14:59 22:59 06:59 Intake Total 1000 ml 500 ml 0 ml Output Total 400 ml 600 ml Balance 1000 ml 100 ml -600 ml medications Current Medications Medications Dose Ordered Sig/Liliam Route Start Time Stop Time Status Last Admin Dose Admin Amino Acids 0 ml @ 0 mls/hr PER PHARMACY IV 10/15/24 18:45 Cancel Dextrose 50 ml UD IV 10/16/24 09:30 Cancel Polyethylene Glycol 17 gm DAILYPRN PRN GT 10/17/24 16:45 10/19/24 05:54 17 GM Vancomycin HCl 0 ml @ 0 mls/hr UD IV 10/19/24 14:00 Cancel Metoclopramide HCl 5 mg BID IV 10/25/24 10:00 Hold 10/25/24 21:32 5 MG Sodium Chloride 10 ml QSHIFT@10,22 IV 10/26/24 22:00 11/09/24 21:54 10 ML Metoprolol Tartrate 12.5 mg BID PO 10/28/24 22:00 10/30/24 09:24 12.5 MG Metoprolol Tartrate 2.5 mg Q6HPRN PRN IV 10/31/24 09:15 Diagnostic Test (Pha) 1 strip Q6HR 11/01/24 18:00 11/10/24 05:57 1 STRIP Insulin Human Regular FOLLOW SLIDING SCALE Q6HR SC 11/01/24 18:00 11/10/24 05:58 4 UNITS Dextrose 50 ml UD IV 11/01/24 18:00 Amino Acids 0 ml @ 0 mls/hr PER PHARMACY IV 11/04/24 22:00 Amino Acid Protein 30 ml DAILY PO 11/04/24 10:00 Mexiletine HCl 150 mg TID PO 11/04/24 14:00 Dextrose 1,000 ml @ 50 mls/hr Q20H IV 11/04/24 12:45 11/09/24 14:30 50 MLS/HR Hydrocortisone Sodium Succinate 50 mg BID IV 11/06/24 22:00 11/09/24 21:54 50 MG Fat Emulsion Intravenous 200 ml/Potassium Acetate 30 meq/ Potassium Phosphate 22 meq/ Calcium Gluconate 2.3 meq/Magnesium Sulfate 4 meq/ Multivitamins 10 ml/Chromium/ Copper/Manganese/ Zinc 1 ml/Amino Acids/Dextrose/ Purified Water 1,736.9462 ml @ 72 mls/hr Q24H8M IV 11/09/24 22:00 11/10/24 21:59 11/09/24 21:50 72 MLS/HR Pantoprazole Sodium 40 mg BID IV 11/09/24 22:00 11/09/24 21:54 40 MG Enteral Nutritional Formula 240 ml Q6HR PEG 11/10/24 12:00 Examination: GENERAL:Normal, LUNGS:Normal, CVS:Normal, ABDOMEN:Normal, SKIN:Normal, NEURO:Normal laboratory and microbiology Laboratory Tests 11/10/24 04:57 Test 11/10/24 04:57 Range/Units Serum Glucose 158 H 74-106 mg/dL Microbiology Date/Time Source Procedure Growth Status 10/20/24 04:00 Sputum Gram Stain - Final Complete 10/20/24 04:00 Respiratory Culture - Final Enterobacter cloacae Yeast, not Ilda albicans Complete 10/20/24 01:03 Urine - Cutler [place] Urine Culture - Final Yeast, not Ilda albicans Complete 10/19/24 13:02 Blood Blood Culture - Final NO GROWTH AFTER 5 DAYS OF INCUBATION. Complete 10/07/24 16:50 Nose MRSA Screen - Final Complete Labs and/or images reviewed: Labs reviewed by me Problem List/Assessment/Plan Problem List/Assessment/Plan The patient recently experienced acute hypoxic respiratory failure requiring intubation and mechanical ventilation. Following her acute hypoxic respiratory failure, the patient was successfully weaned off the ventilator. However, she developed dysphagia due to prolonged intubation, reporting difficulty swallowing and feeling food in her mouth. She is severely deconditioned as a result of her hospitalization. The patient was treated for enterobacter pneumonia, which has now resolved after completing a full course of antibiotics. Due to her dysphagia and nutritional needs, the patient is currently receiving TPN. Patient is s/p peg tube placement yesterday. Marielos's medical history is significant for paroxysmal atrial fibrillation and acute chronic systolic heart failure with severely reduced left ventricular ejection fraction of 15-20%. She has coronary artery disease with history of 2- vessel CABG and cardiac arrest with ventricular fibrillation. The patient was transitioned to Eliquis 5mg BID by her television reporter, Dr. Guerrero, for management of her cardiac conditions. Amiodarone was discontinued due to transaminitis, and she is currently on metoprolol 12.5mg TID and mexiletine 150mg TID. Her heart failure is being managed with Lasix. Cardiac arrest with ventricular fibrillation Assessment: Patient experienced cardiac arrest with ventricular fibrillation and subsequently underwent AICD placement. The patient was transitioned to Eliquis 5 mg BID by television reporter Dr. Guerrero. Current INR is 1.03. Amiodarone was discontinued due to transaminitis. Patient is currently on metoprolol 12.5 mg TID and mexiletine 150 mg TID. Plan: - Continue Eliquis 5 mg PO BID - Continue metoprolol 12.5 mg PO TID - Continue mexiletine 150 mg PO TID - Monitor INR Coronary artery disease Assessment: Patient has a history of 2-vessel CABG. Cardiology is following the patient. Plan: - Continue current management - Follow up with cardiology as scheduled Acute chronic systolic heart failure Assessment: Patient has severely reduced left ventricular ejection fraction of 15-20%. Echo findings are consistent with severely reduced left ventricular ejection fraction and previously implanted mitral ring up to moderate. Plan: - Continue Lasix - Monitor renal function Acute hypoxic respiratory failure Assessment: Patient was intubated due to acute hypoxic respiratory failure. The patient has been successfully weaned off the ventilator. Plan: - Monitor respiratory status - Continue weaning process as tolerated Transaminitis Assessment: Patient developed transaminitis, which led to the discontinuation of amiodarone. Plan: - Reinitiate amiodarone - Monitor liver function tests Enterobacter pneumonia Assessment: Patient had enterobacter pneumonia, which has resolved after completing a full course of antibiotics. This was likely community-acquired. Plan: - Monitor for any recurrence of symptoms Paroxysmal atrial fibrillation Assessment: Patient has a history of paroxysmal atrial fibrillation and is currently on anticoagulation therapy. Plan: - Continue Eliquis as prescribed Dysphagia Assessment: Patient developed dysphagia due to prolonged time spent on ventilator. Patient reports feeling swallowing difficulty in the mouth. Plan: - s/p PEG tube placement, start tube feedings if cleared by GI, consulted dietary - Continue TPN until tube feedings are initiated Deconditioning Assessment: Patient is severely deconditioned following prolonged hospitalization and mechanical ventilation. Plan: - Consider discharge planning to SNF versus acute rehab Plan discussed with: Patient My Orders My Orders Orders - BRAEDEN UNDERWOOD Procedure Category Date Status Time * Dietary Consult CONS 11/10/24 Transmitted 09:03 Communication Order ORDERS 11/10/24 Transmitted 11:08 Dietary Evaluation Review Comments: 1) TF Jevity 1.2Cal @ 55 ml/hr. x 24hr along with Pro-stat 1 pk daily. Start @ 20ml/hr, increase 10ml/hr Q4H until goal is reached. TF @ goal volume provides 1684 kcal (100% energy needs), 88 gm protein (100% protein needs), 1065 ml free water. 2) Water flush 100ml Q4H if allowed, adjust PRN 3) Advance to cardiac diet as medically feasible 4) Monitor NPO status, lab values, wt trend, I/O Expected Outcomes/Goals: To meet >75% estimated needs within 7 days Lab values to improve Fu 2-3 days Date of Service: Nov 10, 2024 Billing Provider: CARLOS HWITAKER MD Common Visit Codes: [id number]-[id number] INP/OBS CARE (MOD) BRAEDEN UNDERWOOD Nov 10, 2024 11:11
[2024-11-10] MEDS: Ensure Enlive Strawberry 8oz Bottle PEG SCH (12:32)
[2024-11-10] MEDS: HYDROcodone-ACET 5/325MG TAB PEG PRN (12:36)
--- NOTE | 2024-11-10 13:10 | DVHPN2 ---
Progress Note - Dictate Date Seen: Nov 10, 2024 Has the PT tested + for MRSA If YES, has PT been informed?: No Medical Necessity Reason Pt with a Central, PICC or Fol: No The following are medically ne: PICC Line, Cutler Catheter Reason for cutler catheter: Strict I&O vital signs Vital Sign Date Time Temp Pulse Resp B/P (MAP) Pulse Ox O2 Delivery O2 Flow Rate FiO2 11/10/24 12:56 97.7 63 20 107/59 (75) 96 97.7 11/09/24 20:00 Room Air* 1 N/A Nasal Cannula* Total Intake and Output 11/09/24 11/09/24 11/10/24 15:00 23:00 07:00 Intake Total 1000 ml 500 ml 0 ml Output Total 400 ml 600 ml Balance 1000 ml 100 ml -600 ml medications Current Medications Medications Dose Ordered Sig/Liliam Route Start Time Stop Time Status Last Admin Dose Admin Amino Acids 0 ml @ 0 mls/hr PER PHARMACY IV 10/15/24 18:45 Cancel Dextrose 50 ml UD IV 10/16/24 09:30 Cancel Polyethylene Glycol 17 gm DAILYPRN PRN GT 10/17/24 16:45 10/19/24 05:54 17 GM Vancomycin HCl 0 ml @ 0 mls/hr UD IV 10/19/24 14:00 Cancel Metoclopramide HCl 5 mg BID IV 10/25/24 10:00 Hold 10/25/24 21:32 5 MG Sodium Chloride 10 ml QSHIFT@10,22 IV 10/26/24 22:00 11/10/24 12:39 10 ML Metoprolol Tartrate 12.5 mg BID PO 10/28/24 22:00 10/30/24 09:24 12.5 MG Metoprolol Tartrate 2.5 mg Q6HPRN PRN IV 10/31/24 09:15 Diagnostic Test (Pha) 1 strip Q6HR 11/01/24 18:00 11/10/24 12:02 1 STRIP Insulin Human Regular FOLLOW SLIDING SCALE Q6HR SC 11/01/24 18:00 11/10/24 05:58 4 UNITS Dextrose 50 ml UD IV 11/01/24 18:00 Amino Acids 0 ml @ 0 mls/hr PER PHARMACY IV 11/04/24 22:00 Amino Acid Protein 30 ml DAILY PO 11/04/24 10:00 Mexiletine HCl 150 mg TID PO 11/04/24 14:00 Dextrose 1,000 ml @ 50 mls/hr Q20H IV 11/04/24 12:45 11/10/24 12:15 50 MLS/HR Hydrocortisone Sodium Succinate 50 mg BID IV 11/06/24 22:00 11/10/24 12:04 50 MG Fat Emulsion Intravenous 200 ml/Potassium Acetate 30 meq/ Potassium Phosphate 22 meq/ Calcium Gluconate 2.3 meq/Magnesium Sulfate 4 meq/ Multivitamins 10 ml/Chromium/ Copper/Manganese/ Zinc 1 ml/Amino Acids/Dextrose/ Purified Water 1,736.9462 ml @ 72 mls/hr Q24H8M IV 11/09/24 22:00 11/10/24 21:59 11/09/24 21:50 72 MLS/HR Pantoprazole Sodium 40 mg BID IV 11/09/24 22:00 11/10/24 12:04 40 MG Enteral Nutritional Formula 240 ml Q6HR PEG 11/10/24 12:00 11/10/24 12:32 240 ML Acetaminophen/ Hydrocodone Bitart 1 tab Q4HPRN PRN PEG 11/10/24 11:15 11/10/24 12:36 1 TAB Fat Emulsion Intravenous 150 ml/Sodium Acetate 10 meq/Potassium Acetate 40 meq/ Potassium Phosphate 19.8 meq/Calcium Gluconate 2.3 meq/ Magnesium Sulfate 4 meq/ Multivitamins 10 ml/Chromium/ Copper/Manganese/ Zinc 1 ml/Amino Acids/Dextrose/ Purified Water 1,596.4462 ml @ 66 mls/hr [id number] IV 11/10/24 22:00 11/11/24 21:59 Morphine Sulfate 4 mg Q4HPRN PRN IV 11/10/24 13:00 laboratory and microbiology Laboratory Tests 11/10/24 04:57 Test 11/10/24 04:57 Range/Units Serum Glucose 158 H 74-106 mg/dL Assessment/Plan impression s/p cardiac arrest VT CPR <5 min elevated troponin acute resp failure atelectases pt seen and examined events s/p extubation low oxygen requirements on room air no distress s/p pacemaker management plan supplemental oxygen as needed titrate to maintain sats 90% or above incentive spirometry aspiration precautions cont abx monitor cx monitor labs renal function daily abg and CXR dvt proph/on aggressive physical therapy f/u cardiology Dietary Evaluation Review Comments: 1) TF Jevity 1.2Cal @ 55 ml/hr. x 24hr along with Pro-stat 1 pk daily. Start @ 20ml/hr, increase 10ml/hr Q4H until goal is reached. TF @ goal volume provides 1684 kcal (100% energy needs), 88 gm protein (100% protein needs), 1065 ml free water. 2) Water flush 100ml Q4H if allowed, adjust PRN 3) Advance to cardiac diet as medically feasible 4) Monitor NPO status, lab values, wt trend, I/O Expected Outcomes/Goals: To meet >75% estimated needs within 7 days Lab values to improve Fu 2-3 days Plan discussed with: Patient BELLO ROTHMAN MD Nov 10, 2024 13:10
--- NOTE | 2024-11-10 15:53 | DVHPN2 ---
Progress Note - Dictate Date Seen: Nov 10, 2024 Has the PT tested + for MRSA If YES, has PT been informed?: No Medical Necessity Reason Pt with a Central, PICC or Fol: No The following are medically ne: PICC Line, Cutler Catheter Reason for cutler catheter: Strict I&O Subjective Patient seen at bedside Postop day 1. S/P EGD with PEG tube placement Patient has a binder in place NG tube site is clean with no bleeding Patient is agitated anxious and wants to go home today Hemoglobin stable at 9.7, two bowel movements recorded vital signs Vital Sign Date Time Temp Pulse Resp B/P (MAP) Pulse Ox O2 Delivery O2 Flow Rate FiO2 11/10/24 12:56 97.7 63 20 107/59 (75) 96 97.7 11/09/24 20:00 Room Air* 1 N/A Nasal Cannula* Total Intake and Output 11/09/24 11/09/24 11/10/24 15:00 23:00 07:00 Intake Total 1000 ml 500 ml 0 ml Output Total 400 ml 600 ml Balance 1000 ml 100 ml -600 ml medications Current Medications Medications Dose Ordered Sig/Liliam Route Start Time Stop Time Status Last Admin Dose Admin Amino Acids 0 ml @ 0 mls/hr PER PHARMACY IV 10/15/24 18:45 Cancel Dextrose 50 ml UD IV 10/16/24 09:30 Cancel Polyethylene Glycol 17 gm DAILYPRN PRN GT 10/17/24 16:45 10/19/24 05:54 17 GM Vancomycin HCl 0 ml @ 0 mls/hr UD IV 10/19/24 14:00 Cancel Metoclopramide HCl 5 mg BID IV 10/25/24 10:00 Hold 10/25/24 21:32 5 MG Sodium Chloride 10 ml QSHIFT@10,22 IV 10/26/24 22:00 11/10/24 12:39 10 ML Metoprolol Tartrate 2.5 mg Q6HPRN PRN IV 10/31/24 09:15 Diagnostic Test (Pha) 1 strip Q6HR 11/01/24 18:00 11/10/24 12:02 1 STRIP Insulin Human Regular FOLLOW SLIDING SCALE Q6HR SC 11/01/24 18:00 11/10/24 05:58 4 UNITS Dextrose 50 ml UD IV 11/01/24 18:00 Amino Acids 0 ml @ 0 mls/hr PER PHARMACY IV 11/04/24 22:00 Amino Acid Protein 30 ml DAILY PO 11/04/24 10:00 Dextrose 1,000 ml @ 50 mls/hr Q20H IV 11/04/24 12:45 11/10/24 12:15 50 MLS/HR Hydrocortisone Sodium Succinate 50 mg BID IV 11/06/24 22:00 11/10/24 12:04 50 MG Fat Emulsion Intravenous 200 ml/Potassium Acetate 30 meq/ Potassium Phosphate 22 meq/ Calcium Gluconate 2.3 meq/Magnesium Sulfate 4 meq/ Multivitamins 10 ml/Chromium/ Copper/Manganese/ Zinc 1 ml/Amino Acids/Dextrose/ Purified Water 1,736.9462 ml @ 72 mls/hr Q24H8M IV 11/09/24 22:00 11/10/24 21:59 11/09/24 21:50 72 MLS/HR Pantoprazole Sodium 40 mg BID IV 11/09/24 22:00 11/10/24 12:04 40 MG Enteral Nutritional Formula 240 ml Q6HR PEG 11/10/24 12:00 11/10/24 12:32 240 ML Fat Emulsion Intravenous 150 ml/Sodium Acetate 10 meq/Potassium Acetate 40 meq/ Potassium Phosphate 19.8 meq/Calcium Gluconate 2.3 meq/ Magnesium Sulfate 4 meq/ Multivitamins 10 ml/Chromium/ Copper/Manganese/ Zinc 1 ml/Amino Acids/Dextrose/ Purified Water 1,596.4462 ml @ 66 mls/hr [id number] IV 11/10/24 22:00 11/11/24 21:59 Morphine Sulfate 4 mg Q4HPRN PRN IV 11/10/24 13:00 Acetaminophen/ Hydrocodone Bitart 1 tab Q4HPRN PRN GT 11/10/24 15:30 Metoprolol Tartrate 12.5 mg BID GT 11/10/24 22:00 Mexiletine HCl 150 mg TID GT 11/10/24 22:00 objective Examination: GENERAL:Normal, LUNGS: Decreased breath sounds at bases ABDOMEN: Soft, dressing dry, G-tube in place, SKIN:Normal, NEURO:Normal laboratory and microbiology Laboratory Tests 11/10/24 04:57 Test 11/10/24 04:57 Range/Units Serum Glucose 158 H 74-106 mg/dL Problems(with codes): (1) S/P gastrostomy (2) Shock liver (3) Pneumonia (4) Sepsis, unspecified organism (5) Cardiac arrest (6) Ventricular fibrillation Prognosis Plan Remove G-tube dressing today Check for gastric residuals and if less than 150 start G-tube feedings Patient can be given bolus feedings with ensure or Glucerna one can p.o. q.6 hours Localized G-tube care with dilute hydrogen peroxide and rotate G-tube twice a day Keep binder on the G-tube after G-tube care so that the patient does not pull out the G-tube Discharge planning to SNF as per hospitalist Dietary Evaluation Review Comments: 1) TF Jevity 1.2Cal @ 55 ml/hr. x 24hr along with Pro-stat 1 pk daily. Start @ 20ml/hr, increase 10ml/hr Q4H until goal is reached. TF @ goal volume provides 1684 kcal (100% energy needs), 88 gm protein (100% protein needs), 1065 ml free water. 2) Water flush 100ml Q4H if allowed, adjust PRN 3) Advance to cardiac diet as medically feasible 4) Monitor NPO status, lab values, wt trend, I/O Expected Outcomes/Goals: To meet >75% estimated needs within 7 days Lab values to improve Fu 2-3 days Plan discussed with: Patient, Other (Nurse Yani) CANDI BOSS MD Nov 10, 2024 15:52
[2024-11-10] MEDS: Ensure HIGH Protein Vanilla 8oz Bottle PO SCH (18:31)
[2024-11-10] MEDS: TPN PER PHARMACY IV NR (21:48)
[2024-11-10] MEDS: MEXILETINE HYDROCHLORIDE 150 MG CAP GT SCH (21:56)
[2024-11-10] MEDS: METOPROLOL TARTRATE 25 MG TAB GT SCH (22:02)
[2024-11-11] VITALS (9 sets, daily range): BP systolic 92–122; BP diastolic 43–70; PULSE 55–65; RESP 15–23; TEMP 97.1–98.4; O2SAT 92–99
[2024-11-11] MEDS: HYDROcodone-ACET 5/325MG TAB GT PRN (00:21)
--- NOTE | 2024-11-11 06:44 | DVHPN2 ---
Progress Note - Dictate Date Seen: Nov 11, 2024 Has the PT tested + for MRSA If YES, has PT been informed?: No Medical Necessity Reason Pt with a Central, PICC or Fol: No The following are medically ne: PICC Line, Cutler Catheter Reason for cutler catheter: Strict I&O vital signs Vital Sign Date Time Temp Pulse Resp B/P (MAP) Pulse Ox O2 Delivery O2 Flow Rate FiO2 11/11/24 05:37 107/53 (71) 11/11/24 05:00 97.5 61 18 95 97.5 11/10/24 20:00 Room Air* 1 N/A Nasal Cannula* Total Intake and Output 11/10/24 11/10/24 11/11/24 15:00 23:00 07:00 Intake Total 900 ml Output Total 550 ml Balance 900 ml -550 ml medications Current Medications Medications Dose Ordered Sig/Liliam Route Start Time Stop Time Status Last Admin Dose Admin Amino Acids 0 ml @ 0 mls/hr PER PHARMACY IV 10/15/24 18:45 Cancel Dextrose 50 ml UD IV 10/16/24 09:30 Cancel Polyethylene Glycol 17 gm DAILYPRN PRN GT 10/17/24 16:45 10/19/24 05:54 17 GM Vancomycin HCl 0 ml @ 0 mls/hr UD IV 10/19/24 14:00 Cancel Metoclopramide HCl 5 mg BID IV 10/25/24 10:00 Hold 10/25/24 21:32 5 MG Sodium Chloride 10 ml QSHIFT@10,22 IV 10/26/24 22:00 11/10/24 22:03 10 ML Metoprolol Tartrate 2.5 mg Q6HPRN PRN IV 10/31/24 09:15 Diagnostic Test (Pha) 1 strip Q6HR 11/01/24 18:00 11/11/24 06:13 1 STRIP Insulin Human Regular FOLLOW SLIDING SCALE Q6HR SC 11/01/24 18:00 11/11/24 06:13 4 UNITS Dextrose 50 ml UD IV 11/01/24 18:00 Amino Acids 0 ml @ 0 mls/hr PER PHARMACY IV 11/04/24 22:00 Cancel Amino Acid Protein 30 ml DAILY PO 11/04/24 10:00 Dextrose 1,000 ml @ 50 mls/hr Q20H IV 11/04/24 12:45 11/11/24 04:45 50 MLS/HR Hydrocortisone Sodium Succinate 50 mg BID IV 11/06/24 22:00 11/10/24 21:56 50 MG Pantoprazole Sodium 40 mg BID IV 11/09/24 22:00 11/10/24 21:55 40 MG Morphine Sulfate 4 mg Q4HPRN PRN IV 11/10/24 13:00 Acetaminophen/ Hydrocodone Bitart 1 tab Q4HPRN PRN GT 11/10/24 15:30 11/11/24 04:24 1 TAB Metoprolol Tartrate 12.5 mg BID GT 11/10/24 22:00 11/10/24 22:02 12.5 MG Mexiletine HCl 150 mg TID GT 11/10/24 22:00 11/11/24 05:42 150 MG Enteral Nutritional Formula 240 ml QID PO 11/10/24 18:00 11/10/24 22:03 240 ML laboratory and microbiology Laboratory Tests 11/10/24 04:57 Test 11/11/24 05:43 Range/Units Serum Glucose Pending Assessment/Plan Assessment/Plan In Tele. Status post PEG 11/09/2024. Initiated on tube feeding as per GI recommendations.Repeat KUB 11/11/2024 revealed no acute findings. Patient is a 54-year-old female who was brought to the hospital for witnessed syncope. She is intubated and is being managed in ICU. Information was obtained by reviewing the chart and communicating with patient's son (over the phone). Family recognized witnessed syncope and started CPR and called EMS. Reportedly, EMS found the patient in ventricular fibrillation and shocked the patient and brought the patient to the hospital. Patient was intubated in emergency room and transferred to ICU. Patient was on amiodarone drip. Later the patient had ventricular tachycardia (Systane). High sensitive troponin had been minimally/flatly elevated. Presentation was not in favor of acute coronary syndrome. Cardiology is involved for cardiac aspects of care. NAD Does not talk. Alert and oriented to self only. No JVD. Mucosa pale. No carotid bruit. Scattered rhonchi in the lungs is heard. Cardiac: Regular, no thrill. Systolic murmur 2/6 in apex is heard. Abdomen is soft. No edema in extremities. Past medical history as per son: Congenital heart disease, status post bypass WBC: 14.5 - 11.9 - 18.8 - 20.0 - 21.2 - 14.3 - 10.3 - 8.9 - 9.2 - 11.1 - 12.1 - 10.8 - 12.0 - 9.9 - 15.4 - 14.8 - 12.1 - 10.5 - 5.8 - 5.3 - 4.2 - 5.8 - 4.1 - 7.0 - 9.3 - 8.3 - 11.5 - 8.4 - 8.4 - 5.4 - 5.7 - 8.4 - 7.4 - 6.5 Hemoglobin: 10.1 - 9.6 - 9.2 - 8.8 - 8.7 - 8.0 - 8.3 - 8.5 - 7.8 - 10.2 - 10.7 - 9.9 - 9.7 - 9.3 - 9.3 - 8.6 - 8.1 - 7.4 - 7.5 - 7.4 - 7.5 - 7.2 - 7.7 - 7.0 - (post PRBC transfusion) 10.4 - 10 - 9.5 - 10.0 - 9.2 - 9.8 -9.6 - 9.7 - 10.2 - 10.6 - 9.7 Creatinine: 0.95 - 0.93 - 0.87 - 0.83 - 0.83 - 0.76 - 0.68 - 0.72 - 0.79 - 0.76 - 0.80 - 0.84 - 0.61 - 0.65 - 0.74 - 0.64 - 0.73 - 0.82 - 0.88 - 1.03 - 0.99 - 0.85 - 0.87 - 0.79 - 1.12 - 1.15 - 1.04 - 0.96 - 0.94 - 0.93 - 0.78 - 0.71 - 0.68 - 0.61 - 0.59 - 0.49 - 0.54 - 0.48 Potassium: 3.4 - 4.0 - 4.6 - 3.5 - 3.3 - 4.1 - 3.7 - 3.2 - 3.7 - 4.0 - 3.2 - 3.4 - 3.9 - 4.2 - 3.3 - 3.8 - 3.6 - 3.4 - 4.2 - 3.8 - 4.5 - 4.1 - 3.5 - 4.2 - 3.3 - 2.6 - 3.5 - 3.8 - 2.4 - 2.9 - 4.6 - 2.8 - 4.8 - 4.9 - 3.4 - 3.1 - 3.7 - 4.4 - 3.7 - 3.7 - 3.1 - 3.0 - 3.8 - 4.4 - 3.8 - 4.1 - 3.9 - 4.4 Magnesium: 2.0 - 1.6 - 2.0 - 3.0 - 1.5 - 1.9 - 2.1 - 1.8 - 2.0 - 1.9 - 1.9 - 2.6 - 2.0 - 1.8 - 1.6 - 2.0 - 2.2 - 1.9 - 2.3 - 2.2 - 2.2 - 2.1 - 2.1 - 1.9 2.7 - 2.6 - 2.3 - 2.4 - 2.5 - 2.3 - 2.5 - 2.3 - 2.3 - 2.4 - 2.1 - 1.9 - 2.0 Troponin (high sensitive): 141 - 138 - 117 BNP: 457.16 - 1073.91 AST/ALT: 32/11 - 19/13 - 538/168 - 293/152 - 131/130 - 78/94 - 68/74 - 48/57 - 27/38 - 15/23 - 20/18 - 23/17 - 29/16 - 27/13 - 34/17 - 73/49 - 41/43 - 30/47 - 30/42 - 29/42 - 17/27 - 160/87 - 900/478 - 986/571 - 382/436 - 110/244 - 42/170 - 22/113 - 16/77 - 15/59 - 19/50 - 14/ - Digoxin level: 2.83 - 1.25 - 0.98 UDS: non-revealing Chest x-ray revealed: Lines and Tubes: Endotracheal tube tip projects approximately 1.4 cm above the level of the tyler. Enteric catheter courses below the lateral of the diaphragm and terminates beyond the inferior margin of the image. Right internal jugular central venous catheter terminates within the distal superior vena cava. Lungs: Moderate diffuse increased prominence of the pulmonary vasculature without evidence of focal consolidation. Pleura: No effusion. No pneumothorax. Cardiomediastinal contours: Cardiomegaly. Bones: Unremarkable IMPRESSION: 1. Cardiomegaly and diffuse increased prominence of the pulmonary vasculature. 2. Lines and tubes as above. Repeat chest x-ray revealed: IMPRESSION: 1. Endotracheal tube tip 1.6 cm above the tyler; consider 2 cm retraction 2. Mild pulmonary vascular congestion. Moderate cardiomegaly. Repeat chest xry revealed: IMPRESSION: Endotracheal tube tip 1.6 cm above the tyler; consider 2 cm retraction Mild pulmonary vascular congestion. Moderate cardiomegaly. Repeat chest xry revealed: IMPRESSION: 1. Stable cardiomegaly, small left pleural effusion and mild diffuse increased prominence of the pulmonary vasculature. 2. Repositioned endotracheal tube as above. Remaining lines and tubes unchanged. Repeat chest xry revealed: IMPRESSION: 1. Cardiomegaly, stable diffuse increased prominence of the pulmonary vasculature and small bilateral pleural effusions. 2. Slight interval advancement of endotracheal tube as above. Remaining lines and tubes unchanged. Repeat chest xry revealed: IMPRESSION: 1. Slight interval decrease in diffuse increased prominence of the pulmonary vasculature. 2. Stable cardiomegaly and small left pleural effusion. 3. Lines and tubes unchanged. Repeat chest xry revealed: IMPRESSION: 1. Cardiomegaly and small left pleural effusion. 2. Lines and tubes unchanged. Repeat chest xry revealed: IMPRESSION: Stable lines and tubes. Similar lung aeration. Repeat chest xry revealed: IMPRESSION: Cardiomegaly and small left pleural effusion. Lines and tubes unchanged. Repeat chest xry revealed: IMPRESSION: Placement of a cardiac pacer, no pneumothorax is seen. Stable lines and tubes. Repeat chest xry revealed: IMPRESSION: 1. Worsening mixed opacities in the right lower lung. No other significant change from the previous study. Stable support devices. Repeat chest xry revealed: Heart is prominent in size with postsurgical changes, median sternotomy wires, and a single lead left cardiac defibrillator. Support lines and tubes appear unchanged in satisfactory in position. No sizable effusion or pneumothorax. Mild pulmonary vascular congestion. No significant interval change. Repeat chest xry revealed: IMPRESSION: 1. No significant change from the previous study. Stable support devices. Similar findings of heart failure including left pleural effusion. Repeat chest xry revealed: IMPRESSION: 1. No significant change from the previous study. Stable support devices. Similar findings of heart failure including trace left pleural effusion. Repeat chest xry revealed: Lines and Tubes: Unchanged. Left anterior chest wall cardiac pacing device. Lungs: Clear Pleura: No effusion. No pneumothorax. Cardiomediastinal contours: Cardiomegaly. Bones: Unremarkable IMPRESSION: 1. Cardiomegaly. 2. Lines and tubes unchanged. Repeat chest xry revealed: IMPRESSION: Lines and tubes in satisfactory position. No significant interval change. Repeat chest xry revealed: Lines and Tubes: ET tube and NG tube removed. Lungs: Congestion Pleura: No effusion. No pneumothorax. Cardiomediastinal contours: Cardiomegaly Bones: Unremarkable IMPRESSION: 1. Cardiomegaly with CHF. Repeat chest xry revealed: IMPRESSION: 1. Cardiomegaly. 2. Patchy bilateral airspace disease. Liver Ultrasound revealed: Hepatic steatosis. Trace right pleural effusion. Trace ascites Gallstones Bladder ultrasound revealed: IMPRESSION: 1. Cutler catheter in the bladder in the bladder is decompressed. Repeat Bladder Ultrasound revealed: Urinary bladder is unremarkable with prevoid volume of 29 mL. Urinary bladder wall measures 1.5 mm. Cutler catheter is noted. KUB revealed: IMPRESSION: Nonobstructive bowel gas pattern. Nasogastric tube tip in the stomach. Large stool burden. Repeat KUB revealed: Right lower extremity PICC line with tip projecting over the expected region of the intrahepatic IVC. Nasogastric tube projecting towards the distal stomach. Nonspecific bowel gas pattern. Cardiomegaly and left basilar airspace opacities, incompletely characterized. Atherosclerotic calcification disease. Repeat KUB revealed IMPRESSION: 1. Nonspecific nonobstructive bowel gas pattern. 2. Gastrostomy tube projects over the midportion of the left hemiabdomen. 3. Right femoral approach central venous catheter as described above. Left upper ext arterial duplex: IMPRESSION: No hemodynamically significant stenosis based on peak systolic velocity criteria. Left lower ext arterial duplex: IMPRESSION: There is no evidence for peripheral vascular insufficiency in the left lower extremity. No significant focal stenosis is identified. Liver Ultrasound revealed: Hepatic steatosis. Hepatomegaly. Cholelithiasis. CT of the head revealed: IMPRESSION: No acute intracranial abnormality. Repeat CT of head revealed: IMPRESSION: No acute intracranial abnormality. Repeat CT of Head revealed: IMPRESSION: No acute intracranial abnormality. Echocardiogram reported: lvef 15-20% dilated LV severe global dysfunction mild RV dysfunction biatrial enlargement mild moderate MAC, moderate mitral regurg mild to moderate aortic regug (images of echo reviewed and questioned presence of mitral ring and also some component (moderate of Mitral stenosis) EKG revealed sinus rhythm Telemetry revealed occasions of atrial fibrillation. There was occasional sustained ventricular tachycardia. EMS tele monitor revealed ventricular fibrillation for which the patient was shocked. Has remained sinus rhythm. Later with A-fib with MVR LHC revealed: Patent RICHMOND to LAD; Patent SVG to obtuse marginal; LVEF of 20% with increased EDP; Proximal disease in LAD/LCX RICHIE was performed: Consistent with severely reduced LVEF. Consistent with previously implanted Mitral ring, Up to moderate Mitral stenosis/Mitral Regurgitation and also Moderate Aortic insufficiency. Patient is a 54-year-old female who presented with witnessed syncope. She was found to have ventricular fibrillation for which was shocked. Later had repeated episode of sustained ventricular tachycardia. Patient has been kept in ICU. Does have baseline history of coronary artery disease for which has had bypass surgery. Left heart catheterization was performed which revealed patent RICHMOND and patent SVG. ACS is not considered at this point. It is of note that the patient's echocardiogram reveals significantly use systolic function. Valvular heart disease is considered. Findings are in favor of previously implanted mitral ring. By reviewing the echo images, component of up to moderate mitral stenosis could not be ruled out. LHC was performed that ruled out any active specific ischemia as an etiology for presentation. Is off Amiodarone for abnormal LFT. Being followed by Nephrology / Pulmonary / Neurology / GI ID. Tele has remained sinus rhythm. Had episode of a-fib with RVR. Was loaded with Digoxin. Dig level was performed at wrong timing (only 5 hours after the last Dig given). Dig toxicity is not considered. Patient is back to normal sinus rhythm. Has good kidney function. Repeat Dig level is acceptable level. s/p ICD implantation by EP. Intubated, later extubated. Syncope V-fib s/p shock Sustained V-tach Paroxysmal A-fib VHD, s/p Mitral ring Systolic heart failure Abnormal LFT, at a point resolved, later appeared again s/p ICD (Biotronik) implantation by EP (Dr Armstrong) s/p PRBC transfusion for significant anemia Hepatic Steatosis Gallstones Failed Swallowing To go for PEG Cardiac suggestion for management: Manage in Tele Follow up electrolytes and kidney function test and correct abnormalities Full anticoagulation (a-fib with high CHADS-Vasc score). s/p ICD implantation. To start Eliquis (after performance of possible PEG tube placement): for now on prophylactic dose of Lovenox Off Amio drip (worsened LFT) On Mexiletine If need for pressure support: use Phenyl Ephrine / vasopressin, keep MAP above 65 (for now off pressure support and tolerating) On Metoprolol to decrease risk of Vtach (as patient has ICD with bradycardia protection: may continue metoprolol in case of bradycardia, but hold: if hypotensive) May consider/add Esmolol for PVC/Vtach (if needed) Does not talk. Alert and oriented to self only. As she has not passed swallowing evaluation: IV Metoprolol if needed (HR above 100) s/p ICD (Biotronik) implantation by EP Eliquis: 2.5 mg BID: when she can swallow and after any predicted procedure completed (if needed to have PEG, to have it started after performing PEG): for now: Lovenox s/p PRBC transfusion for anemia Failed swallowing evaluation for now Cardiac arenas, patient is moderate risk patient for moderate risk PEG placement. Avoid Hypotension. Pulmonary Follow up GI follow up for repeated failed swallowing evaluation Provide previous medical records from reaching out to previous hospitals in [facility]... Further evaluation and management depends on the above and clinical course. A total of 55 minutes was spent reviewing the patient record, examining the patient, making a diagnostic and therapeutic plan, discussing this plan with medical personnel, following up on diagnostic studies and following the patient for clinical stability excluding any and all procedures. At least 50% of this time was spent in direct, [id number] contact. Thank you for allowing me to participate in this patient's care. Further recommendations will depend on patient's clinical course. Please do not hesitate to contact me if you have any questions or concerns. This medical document was created using electronic medical record system with [employer] dictation system. Although this document has been carefully reviewed, there may still be some phonetic and typographical errors. These areas are purely typographical due to the imperfection of the software programs, and do not reflect any compromise in the patient's medical care. Dietary Evaluation Review Comments: 1) TF Jevity 1.2Cal @ 55 ml/hr. x 24hr along with Pro-stat 1 pk daily. Start @ 20ml/hr, increase 10ml/hr Q4H until goal is reached. TF @ goal volume provides 1684 kcal (100% energy needs), 88 gm protein (100% protein needs), 1065 ml free water. 2) Water flush 100ml Q4H if allowed, adjust PRN 3) Advance to cardiac diet as medically feasible 4) Monitor NPO status, lab values, wt trend, I/O Expected Outcomes/Goals: To meet >75% estimated needs within 7 days Lab values to improve Fu 2-3 days Plan discussed with: Patient (Patient and Primary RN ) TUCKER CRUZP Nov 11, 2024 06:44
[2024-11-11 06:46] LABS: INR 1.06 (0.9-1.15); Prothrombin Time 11.2 sec (9.3-11.8)
[2024-11-11 07:06] LABS: Alanine Aminotransferase 38 U/L (7-40); Alkaline Phosphatase 94 U/L (46-116); Anion Gap 11 (5-15); BUN/Creatinine Ratio 66.7 (10.0-20.0); Bilirubin, Total 1.0 mg/dL (0.2-1.0); Magnesium 2.0 mg/dL (1.6-2.6); Potassium 4.4 mmol/L (3.5-5.1); Sodium 137 mmol/L (136-145)
[2024-11-11 07:07] LABS: Albumin 3.1 g/dL (3.2-4.8); Blood Urea Nitrogen 32 mg/dL (9-23); Calcium 8.5 mg/dL (8.7-10.4); Carbon Dioxide 17 mmol/L (20-31); Chloride 109 mmol/L (98-107); Glucose 138 mg/dL (74-106); Total Protein 5.1 g/dL (5.7-8.2)
--- NOTE | 2024-11-11 13:44 | DVHPN2 ---
Progress Note Date Seen: Nov 11, 2024 Has the PT tested + for MRSA If YES, has PT been informed?: No Medical Necessity Reason Pt with a Central, PICC or Fol: No The following are medically ne: PICC Line, Cutler Catheter Reason for cutler catheter: Strict I&O Subjective Review of Systems: CVS:Normal, RESPIRATORY:Normal, GI:Normal, NEURO:Normal Objective vital signs Vital Sign Date Time Temp Pulse Resp B/P (MAP) Pulse Ox O2 Delivery O2 Flow Rate FiO2 11/11/24 11:52 62 122/43 11/11/24 11:29 15 94 11/11/24 09:00 98.4 98.4 11/10/24 20:00 Room Air* 1 N/A Nasal Cannula* Total Intake and Output 11/10/24 11/10/24 11/11/24 15:00 23:00 07:00 Intake Total 900 ml Output Total 550 ml Balance 900 ml -550 ml medications Current Medications Medications Dose Ordered Sig/Liliam Route Start Time Stop Time Status Last Admin Dose Admin Amino Acids 0 ml @ 0 mls/hr PER PHARMACY IV 10/15/24 18:45 Cancel Dextrose 50 ml UD IV 10/16/24 09:30 Cancel Polyethylene Glycol 17 gm DAILYPRN PRN GT 10/17/24 16:45 10/19/24 05:54 17 GM Vancomycin HCl 0 ml @ 0 mls/hr UD IV 10/19/24 14:00 Cancel Metoclopramide HCl 5 mg BID IV 10/25/24 10:00 Hold 10/25/24 21:32 5 MG Sodium Chloride 10 ml QSHIFT@10,22 IV 10/26/24 22:00 11/11/24 11:25 10 ML Metoprolol Tartrate 2.5 mg Q6HPRN PRN IV 10/31/24 09:15 Diagnostic Test (Pha) 1 strip Q6HR 11/01/24 18:00 11/11/24 12:18 1 STRIP Insulin Human Regular FOLLOW SLIDING SCALE Q6HR SC 11/01/24 18:00 11/11/24 12:35 2 UNITS Dextrose 50 ml UD IV 11/01/24 18:00 Amino Acids 0 ml @ 0 mls/hr PER PHARMACY IV 11/04/24 22:00 Cancel Amino Acid Protein 30 ml DAILY PO 11/04/24 10:00 Dextrose 1,000 ml @ 50 mls/hr Q20H IV 11/04/24 12:45 11/11/24 04:45 50 MLS/HR Hydrocortisone Sodium Succinate 50 mg BID IV 11/06/24 22:00 11/11/24 11:25 50 MG Pantoprazole Sodium 40 mg BID IV 11/09/24 22:00 11/11/24 11:25 40 MG Morphine Sulfate 4 mg Q4HPRN PRN IV 11/10/24 13:00 Acetaminophen/ Hydrocodone Bitart 1 tab Q4HPRN PRN GT 11/10/24 15:30 11/11/24 04:24 1 TAB Metoprolol Tartrate 12.5 mg BID GT 11/10/24 22:00 11/11/24 11:52 12.5 MG Mexiletine HCl 150 mg TID GT 11/10/24 22:00 11/11/24 05:42 150 MG Enteral Nutritional Formula 240 ml QID PO 11/10/24 18:00 11/11/24 11:49 240 ML Fat Emulsion Intravenous 150 ml/Sodium Acetate 20 meq/Potassium Acetate 30 meq/ Potassium Phosphate 19.8 meq/Calcium Gluconate 2.3 meq/ Magnesium Sulfate 4 meq/ Multivitamins 10 ml/Chromium/ Copper/Manganese/ Zinc 1 ml/Amino Acids/Dextrose/ Purified Water 1,596.4462 ml @ 66 mls/hr [id number] IV 11/11/24 22:00 11/12/24 21:59 Examination: HEENT:Normal, LUNGS:Normal, CVS:Normal, ABDOMEN:Normal, SKIN:Normal, NEURO:Normal laboratory and microbiology Laboratory Tests 11/11/24 05:43 11/10/24 04:57 Test 11/11/24 05:43 Range/Units Serum Glucose 138 H 74-106 mg/dL Microbiology Date/Time Source Procedure Growth Status 10/20/24 04:00 Sputum Gram Stain - Final Complete 10/20/24 04:00 Respiratory Culture - Final Enterobacter cloacae Yeast, not Ilda albicans Complete 10/20/24 01:03 Urine - Cutler [place] Urine Culture - Final Yeast, not Ilda albicans Complete 10/19/24 13:02 Blood Blood Culture - Final NO GROWTH AFTER 5 DAYS OF INCUBATION. Complete 10/07/24 16:50 Nose MRSA Screen - Final Complete Labs and/or images reviewed: Labs reviewed by me, Image(s) reviewed by me Problem List/Assessment/Plan Problem List/Assessment/Plan The patient recently experienced acute hypoxic respiratory failure requiring intubation and mechanical ventilation. Following her acute hypoxic respiratory failure, the patient was successfully weaned off the ventilator. However, she developed dysphagia due to prolonged intubation, reporting difficulty swallowing and feeling food in her mouth. She is severely deconditioned as a result of her hospitalization. The patient was treated for enterobacter pneumonia, which has now resolved after completing a full course of antibiotics. Due to her dysphagia and nutritional needs, the patient is currently receiving TPN. Patient is s/p peg tube placement. Marielos's medical history is significant for paroxysmal atrial fibrillation and acute chronic systolic heart failure with severely reduced left ventricular ejection fraction of 15-20%. She has coronary artery disease with history of 2- vessel CABG and cardiac arrest with ventricular fibrillation. The patient was transitioned to Eliquis 5mg BID by her turning and beading machine operator, Dr. Guerrero, for management of her cardiac conditions. Amiodarone was discontinued due to transaminitis, and she is currently on metoprolol 12.5mg TID and mexiletine 150mg TID. Her heart failure is being managed with Lasix. Cardiac arrest with ventricular fibrillation Assessment: Patient experienced cardiac arrest with ventricular fibrillation and subsequently underwent AICD placement. The patient was transitioned to Eliquis 5 mg BID by turning and beading machine operator Dr. Guerrero. Current INR is 1.03. Amiodarone was discontinued due to transaminitis. Patient is currently on metoprolol 12.5 mg TID and mexiletine 150 mg TID. Plan: - Continue Eliquis 5 mg PO BID - Continue metoprolol 12.5 mg PO TID - Continue mexiletine 150 mg PO TID - Monitor INR Coronary artery disease Assessment: Patient has a history of 2-vessel CABG. Cardiology is following the patient. Plan: - Continue current management - Follow up with cardiology as scheduled Acute chronic systolic heart failure Assessment: Patient has severely reduced left ventricular ejection fraction of 15-20%. Echo findings are consistent with severely reduced left ventricular ejection fraction and previously implanted mitral ring up to moderate. Plan: - Continue Lasix - Monitor renal function Acute hypoxic respiratory failure Assessment: Patient was intubated due to acute hypoxic respiratory failure. The patient has been successfully weaned off the ventilator. Plan: - Monitor respiratory status - Continue weaning process as tolerated Transaminitis Assessment: Patient developed transaminitis, which led to the discontinuation of amiodarone. Plan: - Reinitiate amiodarone - Monitor liver function tests Enterobacter pneumonia Assessment: Patient had enterobacter pneumonia, which has resolved after completing a full course of antibiotics. This was likely community-acquired. Plan: - Monitor for any recurrence of symptoms Paroxysmal atrial fibrillation Assessment: Patient has a history of paroxysmal atrial fibrillation and is currently on anticoagulation therapy. Plan: - Continue Eliquis as prescribed Dysphagia Assessment: Patient developed dysphagia due to prolonged time spent on ventilator. Patient reports feeling swallowing difficulty in the mouth. Plan: - s/p PEG tube placement, continue with tube feedings - stop TPN Deconditioning Assessment: Patient is severely deconditioned following prolonged hospitalization and mechanical ventilation. Plan: - Consider discharge planning to SNF versus acute rehab Plan discussed with: Patient My Orders My Orders Orders - BRAEDEN UNDERWOOD Procedure Category Date Status Time Kub Abdomen Single XY 11/11/24 Logged View 06:32 Tube Feeding NOURISH 11/11/24 Transmitted 11:04 Dietary Evaluation Review Comments: 1) TF Jevity 1.2Cal @ 55 ml/hr. x 24hr along with Pro-stat 1 pk daily. Start @ 20ml/hr, increase 10ml/hr Q4H until goal is reached. TF @ goal volume provides 1684 kcal (100% energy needs), 88 gm protein (100% protein needs), 1065 ml free water. 2) Water flush 100ml Q4H if allowed, adjust PRN 3) Advance to cardiac diet as medically feasible 4) Monitor NPO status, lab values, wt trend, I/O Expected Outcomes/Goals: To meet >75% estimated needs within 7 days Lab values to improve Fu 2-3 days Date of Service: Nov 11, 2024 Billing Provider: CARLOS WHITAKER MD Common Visit Codes: [id number] INP/OBS CARE (MOD) BRAEDEN UNDERWOOD Nov 11, 2024 13:44
--- NOTE | 2024-11-11 13:55 | DVHPN2 ---
Progress Note - Dictate Date Seen: Nov 11, 2024 Has the PT tested + for MRSA If YES, has PT been informed?: No Medical Necessity Reason Pt with a Central, PICC or Fol: No The following are medically ne: PICC Line, Cutler Catheter Reason for cutler catheter: Strict I&O Subjective Postop day 2. S/P EGD with PEG tube placement Patient has a binder in place NG tube site is clean with no bleeding Patient is agitated anxious and wants to go home today Hemoglobin stable at 9.7, two bowel movements recorded Peg tube site was cleaned rotated G-tube Tube feedings have been started Patient is tolerating them well vital signs Vital Sign Date Time Temp Pulse Resp B/P (MAP) Pulse Ox O2 Delivery O2 Flow Rate FiO2 11/11/24 11:52 62 122/43 11/11/24 11:29 15 94 11/11/24 09:00 98.4 98.4 11/10/24 20:00 Room Air* 1 N/A Nasal Cannula* Total Intake and Output 11/10/24 11/10/24 11/11/24 15:00 23:00 07:00 Intake Total 900 ml Output Total 550 ml Balance 900 ml -550 ml medications Current Medications Medications Dose Ordered Sig/Liliam Route Start Time Stop Time Status Last Admin Dose Admin Amino Acids 0 ml @ 0 mls/hr PER PHARMACY IV 10/15/24 18:45 Cancel Dextrose 50 ml UD IV 10/16/24 09:30 Cancel Polyethylene Glycol 17 gm DAILYPRN PRN GT 10/17/24 16:45 10/19/24 05:54 17 GM Vancomycin HCl 0 ml @ 0 mls/hr UD IV 10/19/24 14:00 Cancel Metoclopramide HCl 5 mg BID IV 10/25/24 10:00 Hold 10/25/24 21:32 5 MG Sodium Chloride 10 ml QSHIFT@10,22 IV 10/26/24 22:00 11/11/24 11:25 10 ML Metoprolol Tartrate 2.5 mg Q6HPRN PRN IV 10/31/24 09:15 Diagnostic Test (Pha) 1 strip Q6HR 11/01/24 18:00 11/11/24 12:18 1 STRIP Insulin Human Regular FOLLOW SLIDING SCALE Q6HR SC 11/01/24 18:00 11/11/24 12:35 2 UNITS Dextrose 50 ml UD IV 11/01/24 18:00 Amino Acids 0 ml @ 0 mls/hr PER PHARMACY IV 11/04/24 22:00 Cancel Amino Acid Protein 30 ml DAILY PO 11/04/24 10:00 Dextrose 1,000 ml @ 50 mls/hr Q20H IV 11/04/24 12:45 11/11/24 04:45 50 MLS/HR Hydrocortisone Sodium Succinate 50 mg BID IV 11/06/24 22:00 11/11/24 11:25 50 MG Pantoprazole Sodium 40 mg BID IV 11/09/24 22:00 11/11/24 11:25 40 MG Morphine Sulfate 4 mg Q4HPRN PRN IV 11/10/24 13:00 Acetaminophen/ Hydrocodone Bitart 1 tab Q4HPRN PRN GT 11/10/24 15:30 11/11/24 04:24 1 TAB Metoprolol Tartrate 12.5 mg BID GT 11/10/24 22:00 11/11/24 11:52 12.5 MG Mexiletine HCl 150 mg TID GT 11/10/24 22:00 11/11/24 05:42 150 MG Enteral Nutritional Formula 240 ml QID PO 11/10/24 18:00 11/11/24 11:49 240 ML Fat Emulsion Intravenous 150 ml/Sodium Acetate 20 meq/Potassium Acetate 30 meq/ Potassium Phosphate 19.8 meq/Calcium Gluconate 2.3 meq/ Magnesium Sulfate 4 meq/ Multivitamins 10 ml/Chromium/ Copper/Manganese/ Zinc 1 ml/Amino Acids/Dextrose/ Purified Water 1,596.4462 ml @ 66 mls/hr [id number] IV 11/11/24 22:00 11/12/24 21:59 objective Examination: GENERAL:Normal, LUNGS: Decreased breath sounds at bases ABDOMEN: Soft, dressing dry, G-tube in place, SKIN:Normal, NEURO:Normal laboratory and microbiology Laboratory Tests 11/11/24 05:43 11/10/24 04:57 Test 11/11/24 05:43 Range/Units Serum Glucose 138 H 74-106 mg/dL Problems(with codes): (1) Shock liver (2) Pneumonia (3) Sepsis, unspecified organism (4) Ventricular fibrillation (5) Cardiac arrest Prognosis Plan Advance tube feedings as tolerated Keep head end elevated to 30 at all times during feedings Discharge planning is in progress to SNF Dietary Evaluation Review Comments: 1) TF Jevity 1.2Cal @ 55 ml/hr. x 24hr along with Pro-stat 1 pk daily. Start @ 20ml/hr, increase 10ml/hr Q4H until goal is reached. TF @ goal volume provides 1684 kcal (100% energy needs), 88 gm protein (100% protein needs), 1065 ml free water. 2) Water flush 100ml Q4H if allowed, adjust PRN 3) Advance to cardiac diet as medically feasible 4) Monitor NPO status, lab values, wt trend, I/O Expected Outcomes/Goals: To meet >75% estimated needs within 7 days Lab values to improve Fu 2-3 days Plan discussed with: Other (Nurse) CANDI BOSS MD Nov 11, 2024 13:55
--- NOTE | 2024-11-11 14:41 | DVHPN2 ---
Progress Note - Dictate Date Seen: Nov 11, 2024 Has the PT tested + for MRSA If YES, has PT been informed?: No Medical Necessity Reason Pt with a Central, PICC or Fol: No The following are medically ne: PICC Line, Cutler Catheter Reason for cutler catheter: Strict I&O vital signs Vital Sign Date Time Temp Pulse Resp B/P (MAP) Pulse Ox O2 Delivery O2 Flow Rate FiO2 11/11/24 11:52 62 122/43 11/11/24 11:29 15 94 11/11/24 09:00 98.4 98.4 11/10/24 20:00 Room Air* 1 N/A Nasal Cannula* Total Intake and Output 11/10/24 11/10/24 11/11/24 15:00 23:00 07:00 Intake Total 900 ml Output Total 550 ml Balance 900 ml -550 ml medications Current Medications Medications Dose Ordered Sig/Liliam Route Start Time Stop Time Status Last Admin Dose Admin Amino Acids 0 ml @ 0 mls/hr PER PHARMACY IV 10/15/24 18:45 Cancel Dextrose 50 ml UD IV 10/16/24 09:30 Cancel Polyethylene Glycol 17 gm DAILYPRN PRN GT 10/17/24 16:45 10/19/24 05:54 17 GM Vancomycin HCl 0 ml @ 0 mls/hr UD IV 10/19/24 14:00 Cancel Metoclopramide HCl 5 mg BID IV 10/25/24 10:00 Hold 10/25/24 21:32 5 MG Sodium Chloride 10 ml QSHIFT@10,22 IV 10/26/24 22:00 11/11/24 11:25 10 ML Metoprolol Tartrate 2.5 mg Q6HPRN PRN IV 10/31/24 09:15 Diagnostic Test (Pha) 1 strip Q6HR 11/01/24 18:00 11/11/24 12:18 1 STRIP Insulin Human Regular FOLLOW SLIDING SCALE Q6HR SC 11/01/24 18:00 11/11/24 12:35 2 UNITS Dextrose 50 ml UD IV 11/01/24 18:00 Amino Acids 0 ml @ 0 mls/hr PER PHARMACY IV 11/04/24 22:00 Cancel Amino Acid Protein 30 ml DAILY PO 11/04/24 10:00 Dextrose 1,000 ml @ 50 mls/hr Q20H IV 11/04/24 12:45 11/11/24 04:45 50 MLS/HR Hydrocortisone Sodium Succinate 50 mg BID IV 11/06/24 22:00 11/11/24 11:25 50 MG Pantoprazole Sodium 40 mg BID IV 11/09/24 22:00 11/11/24 11:25 40 MG Morphine Sulfate 4 mg Q4HPRN PRN IV 11/10/24 13:00 Acetaminophen/ Hydrocodone Bitart 1 tab Q4HPRN PRN GT 11/10/24 15:30 11/11/24 04:24 1 TAB Metoprolol Tartrate 12.5 mg BID GT 11/10/24 22:00 11/11/24 11:52 12.5 MG Mexiletine HCl 150 mg TID GT 11/10/24 22:00 11/11/24 05:42 150 MG Enteral Nutritional Formula 240 ml QID PO 11/10/24 18:00 11/11/24 11:49 240 ML Fat Emulsion Intravenous 150 ml/Sodium Acetate 20 meq/Potassium Acetate 30 meq/ Potassium Phosphate 19.8 meq/Calcium Gluconate 2.3 meq/ Magnesium Sulfate 4 meq/ Multivitamins 10 ml/Chromium/ Copper/Manganese/ Zinc 1 ml/Amino Acids/Dextrose/ Purified Water 1,596.4462 ml @ 66 mls/hr [id number] IV 11/11/24 22:00 11/12/24 21:59 Cancel laboratory and microbiology Laboratory Tests 11/11/24 05:43 11/10/24 04:57 Test 11/11/24 05:43 Range/Units Serum Glucose 138 H 74-106 mg/dL Assessment/Plan impression s/p cardiac arrest VT CPR <5 min elevated troponin acute resp failure atelectases pt seen and examined events s/p extubation low oxygen requirements on room air no distress s/p pacemaker management plan supplemental oxygen as needed titrate to maintain sats 90% or above incentive spirometry aspiration precautions cont abx monitor cx monitor labs renal function daily abg and CXR dvt proph/on physical therapy awaiting placement f/u cardiology Dietary Evaluation Review Comments: 1) TF Jevity 1.2Cal @ 55 ml/hr. x 24hr along with Pro-stat 1 pk daily. Start @ 20ml/hr, increase 10ml/hr Q4H until goal is reached. TF @ goal volume provides 1684 kcal (100% energy needs), 88 gm protein (100% protein needs), 1065 ml free water. 2) Water flush 100ml Q4H if allowed, adjust PRN 3) Advance to cardiac diet as medically feasible 4) Monitor NPO status, lab values, wt trend, I/O Expected Outcomes/Goals: To meet >75% estimated needs within 7 days Lab values to improve Fu 2-3 days Plan discussed with: Patient BELLO ROTHMAN MD Nov 11, 2024 14:41
--- NOTE | 2024-11-11 14:43 | DVH ---
CLINICAL HISTORY: Rule out ileus. TECHNIQUE: AP supine abdominal radiographs were obtained. COMPARISON: XY KUB ABDOMEN SINGLE VIEW on DOS: 10/26/24, XY KUB ABDOMEN SINGLE VIEW on DOS: 10/17/24 FINDINGS: Gastrostomy tube extends to the left mid abdomen. Nonspecific bowel gas pattern with nondi lated gas-filled small bowel loops and gas visualized in the colon. There is a right femoral approach central venous catheter extending to the level of the IVC, just caudal to the expected intrahepatic portion of the IVC. Small phleboliths in the pelvis. Atelectasis in the visualized portions of the yi ng bases. IMPRESSION: 1. Nonspecific nonobstructive bowel gas pattern. 2. Gastrostomy tube projects over the midportion of the left hemiabdomen. 3. Right femoral approach central venous catheter as described above.
[2024-11-11] MEDS ORDERED: TPN PER PHARMACY IV NR (22:00)
--- NOTE | 2024-11-11 22:01 | DVHPN2 ---
Consult Progress Note Objective vital signs Vital Sign Date Time Temp Pulse Resp B/P (MAP) Pulse Ox O2 Delivery O2 Flow Rate FiO2 11/11/24 21:00 97.1 55 23 122/70 (87) 92 97.1 11/11/24 08:00 Room Air* 0 N/A Nasal Cannula* Total Intake and Output 11/10/24 11/10/24 11/11/24 15:00 23:00 07:00 Intake Total 900 ml Output Total 550 ml Balance 900 ml -550 ml medications Current Medications Medications Dose Ordered Sig/Liliam Route Start Time Stop Time Status Last Admin Dose Admin Amino Acids 0 ml @ 0 mls/hr PER PHARMACY IV 10/15/24 18:45 Cancel Dextrose 50 ml UD IV 10/16/24 09:30 Cancel Polyethylene Glycol 17 gm DAILYPRN PRN GT 10/17/24 16:45 10/19/24 05:54 17 GM Vancomycin HCl 0 ml @ 0 mls/hr UD IV 10/19/24 14:00 Cancel Metoclopramide HCl 5 mg BID IV 10/25/24 10:00 Hold 10/25/24 21:32 5 MG Sodium Chloride 10 ml QSHIFT@10,22 IV 10/26/24 22:00 11/11/24 11:25 10 ML Metoprolol Tartrate 2.5 mg Q6HPRN PRN IV 10/31/24 09:15 Diagnostic Test (Pha) 1 strip Q6HR 11/01/24 18:00 11/11/24 17:54 1 STRIP Insulin Human Regular FOLLOW SLIDING SCALE Q6HR SC 11/01/24 18:00 11/11/24 12:35 2 UNITS Dextrose 50 ml UD IV 11/01/24 18:00 Amino Acids 0 ml @ 0 mls/hr PER PHARMACY IV 11/04/24 22:00 Cancel Amino Acid Protein 30 ml DAILY PO 11/04/24 10:00 Dextrose 1,000 ml @ 50 mls/hr Q20H IV 11/04/24 12:45 11/11/24 04:45 50 MLS/HR Hydrocortisone Sodium Succinate 50 mg BID IV 11/06/24 22:00 11/11/24 11:25 50 MG Pantoprazole Sodium 40 mg BID IV 11/09/24 22:00 11/11/24 11:25 40 MG Morphine Sulfate 4 mg Q4HPRN PRN IV 11/10/24 13:00 Acetaminophen/ Hydrocodone Bitart 1 tab Q4HPRN PRN GT 11/10/24 15:30 11/11/24 19:13 1 TAB Metoprolol Tartrate 12.5 mg BID GT 11/10/24 22:00 11/11/24 11:52 12.5 MG Mexiletine HCl 150 mg TID GT 11/10/24 22:00 11/11/24 15:06 150 MG Enteral Nutritional Formula 240 ml QID PO 11/10/24 18:00 11/11/24 11:49 240 ML Fat Emulsion Intravenous 150 ml/Sodium Acetate 20 meq/Potassium Acetate 30 meq/ Potassium Phosphate 19.8 meq/Calcium Gluconate 2.3 meq/ Magnesium Sulfate 4 meq/ Multivitamins 10 ml/Chromium/ Copper/Manganese/ Zinc 1 ml/Amino Acids/Dextrose/ Purified Water 1,596.4462 ml @ 66 mls/hr [id number] IV 11/11/24 22:00 11/12/24 21:59 Cancel laboratory and microbiology Laboratory Tests 11/11/24 05:43 11/10/24 04:57 Test 11/11/24 05:43 Range/Units Serum Glucose 138 H 74-106 mg/dL Problem List/Assessment/Plan Problem List/Assessment/Plan Problems(with codes): (1) Pneumonia (2) Cardiac arrest (3) Ventricular fibrillation (4) Sepsis, unspecified organism Plan/Recommendation ASSESSMENT AND PLAN: ID Problem List: \-- Status post cardiac arrest with return of spontaneous circulation (ROSC) \-- Ventricular tachycardia and atrial fibrillation \-- Recent aspiration event/pneumonitis versus pneumonia, Enterobacter cloacae isolated \-- Severe reduced ejection fraction (EF 1520%), dilated LV, severe global dysfunction \-- History of CABG with stents, mitral ring implant \-- Hypothermia, hypoxia requiring intubation and sedation \-- Sepsis (suspected/treated), leukocytosis (now resolved) \-- Ongoing vasopressor requirement (phenylephrine) \-- ICD placement planned Assessment Ms. Smith is a 54-year-old female with a past medical history notable for prior coronary artery bypass grafting (CABG) with stenting, recent mitral ring implant, and significant cardiac disease. She presented on 10/07 with an acute witnessed cardiac arrest during dinner; initial rhythm was ventricular tachycardia/atrial fibrillation. ROSC was achieved on EMS arrival after a single shock and Narcan administration. She was found to be hypothermic and hypotensive and required intubation for airway protection due to altered mental status. During her ICU course, she had recurrent ventricular tachycardia and atrial fibrillation, managed with antiarrhythmic drip (amiodarone), vasopressors (initially Levophed, currently phenylephrine), and heparin drip. Echocardiogram and left heart catheterization confirmed poor left ventricular function (EF 1520%, dilated LV) and patent bypass grafts. The patient also experienced aspiration pneumonitis, with Enterobacter cloacae isolated from sputum (sensitive to cefepime); empiric antibiotics were escalated to ertapenem following transient fever and leukocytosis, which have since resolved. Currently, she remains intubated on pressure support (tolerating CPAP trials), minimally following commands. She is on phenylephrine, Lasix drip, and heparin drip, with ongoing close monitoring. Cardiology in agreement to proceed with ICD placement given recurrent arrhythmias. Infectious disease clearance provided for this, as there is no evidence of persistent infection or sepsis (blood cultures negative, leukocytosis resolved). 10/12: awaiting AICD placement 10/13: sputum culture was done for further evaluation of persistent pneumonia , no thick secretions 10/14:Dr. bernardo recommends stopping aminopterin drip and LFTs appear to be improving with this change 10/15:lfts are normalizing , sputum shows krystal colonization 10/16: holding excavation til placement 10/17:s/p AICD placement and tolerated procedure . lfts are normal and off amioterine drip 10/18: sp Status post successful implantation of dual chamber AICD, DX Biotronik, Device was programmed into VDI lower rate of 40 bpm 10/19: unclear if patient aspirated vs developed new infection 10/20: levofed at 2 mics and started on steroids agree with continuing regimen until able to titrate off . suspect aspiration pneumonia , has high tube feed residuals . chest xray shows little changes but there is mild congestion in the right lung base , patient remains hypotensive . blood cultures no growth to date as well as urine cultures .appears to be recovering now that antibiotics have been re initiated 10/21:chest xray shows right lower lung base infiltrates , suspect aspiration pneumonia due to high tube feed residuals Plan: - large suspicion for aspiration pneumonia , discontinue vancomycin and continue zosyn for now - if hypoxia remains stable and continues to come off pressers support would discontinue zosyn in 2-3 days - defer to primary and supervisor locomotive team for management - keep maps above 65 - f/u on blood and urine culture results - continue zosyn - continue antibiotics \-- Maintain phenylephrine drip; titrate as needed to maintain MAP. \-- Monitor neurological status; currently, patient is intermittently following commands and is becoming more alert \-- No evidence of active sepsis or bacteremia at this time. \-- Continue supportive ICU care and multidisciplinary management. Authorized and Performed by: soham gramajo md Total critical care time: Approximately 36 minutes Due to a high probability of clinically significant, life threatening deterioration, the patient required my highest level of preparedness to intervene emergently and I personally spent this critical care time directly and personally managing the patient. This critical care time included obtaining a history; examining the patient; pulse oximetry; ordering and review of studies; arranging urgent treatment with development of a management plan; evaluation of patient's response to treatment; frequent reassessment; and, discussions with other providers. This critical care time was performed to assess and manage the high probability of imminent, life-threatening deterioration that could result in multi-organ failure. It was exclusive of separately billable procedures and treating other patients and teaching time. Isolation Precautions: Standard Dietary Evaluation Review Comments: 1) TF Jevity 1.2Cal @ 55 ml/hr. x 24hr along with Pro-stat 1 pk daily. Start @ 20ml/hr, increase 10ml/hr Q4H until goal is reached. TF @ goal volume provides 1684 kcal (100% energy needs), 88 gm protein (100% protein needs), 1065 ml free water. 2) Water flush 100ml Q4H if allowed, adjust PRN 3) Advance to cardiac diet as medically feasible 4) Monitor NPO status, lab values, wt trend, I/O Expected Outcomes/Goals: To meet >75% estimated needs within 7 days Lab values to improve Fu 2-3 days SOHAM GRAMAJO MD Nov 11, 2024 22:01
--- NOTE | 2024-11-11 23:36 | DVHPN2 ---
Progress Note - Dictate Date Seen: Nov 11, 2024 Has the PT tested + for MRSA If YES, has PT been informed?: No Medical Necessity Reason Pt with a Central, PICC or Fol: No The following are medically ne: PICC Line, Cutler Catheter Reason for cutler catheter: Strict I&O Subjective Ms. Smith is a 54 years old female who was brought to the [facility] on 10/07/2024 with a chief complaint of cardiopulmonary arrest/status post CPR. I have seen and examined the patient, I have discussed the case with her sitter and nurse, the patient is oriented to herself, She was mentally better during daytime but her family She refused to work with physical therapist She has PET insert on 11/09/2024 Blood culture, 10/09/2024: No growth Blood culture, 10/19/2024: UDS, 10/07/2024: Negative Urinalysis, 10/07/2024: Leukocyte esterase: Negative WBC/HB/PLT/MCV, 10/09/2024: 20/8.8/219/94.6, 10/10/2024: 21.2/8.7/232/92.2 PT/INR/PTT, 10/08/2024: 12.4/1.19/72.7, 10/09/2024: 13.1/1.26/68.9, 10/10/2024: 14.4/2/1.38/35.3 CMP, 10/08/2024: Unremarkable Troponin one high sensitivity, 10/07/2024: 141, 138, 117 TBI/AST/ALT/AP, 10/10/2024: 0.5/538/168/144, 10/11/2024: 0.6/293/199/152, 10/14/2024: 0.8/68/74/124 TG/HDL/LDL/HDL, 10/07/24: 71/66/31/21 EKG 10/10/2024: Atrial fibrillation EKG, 10/15/2024: Atrial fibrillation Echocardiogram, 10/07/2024: lvef 15-20% dilated LV severe global dysfunction mild RV dysfunction biatrial enlargement mild moderate MAC, moderate mitral regurg mild to moderate aortic regug RICHIE, 10/08/2024: 1. Left ventricle: Dilated LV was seen. LVEF was 25%. There was diffuse hypokinesis of left ventricle. 2. Right ventricle: RV was mildly dilated. 3. Left atrium: LA enlarged 4. Right atrium: RA was enlarged. 5. Mitral valve: Mitral was thickened with reduced opening. Moderate Mitral regurgitation was seen. Planinomentry of valve (TTE images also obtained) revealed MVA of 2.1 cm. Mean pressure gradient (obtained from limited TTE images) was 5. Images are consistent with previously implanted Ring in Mitral position. Consistent with up to Moderate Mitral stenosis. . There was no vegetation 6. Left atrial appendage: No evidence of thrombus. 7. Aortic valve: Trileaflet valve. No stenosis. Up to moderate Aortic Insufficiency was seen. There was no vegetation 8. Pulmonic valve: Trivial pulmonic insufficiency. No significant stenosis. 9. Tricuspid valve: Mild tricuspid regurgitation. There was no vegetation 10. Interatrial septum: Negative color flow for right to left shunt was observed. Bubble study was performed: negative for shunt 11. Pericardium: No significant effusion. 12. Thoracic aorta: No significant plaquing. Chest x-ray, 10/27/2024: 1. Cardiomegaly, stable diffuse increased prominence of the pulmonary vasculature and small bilateral pleural effusions. 2. Slight interval advancement of endotracheal tube as above. Remaining lines and tubes unchanged. CT head, 10/07/2024: No acute intracranial abnormality General: the patient is well developed and nourished. No acute distress. Intubated CT head, 10/07/2024: No acute intracranial abnormality. CT head, 10/11/2024: No acute intracranial abnormality CT head, 11/01/2024: As above, the other systems are negative vital signs Vital Sign Date Time Temp Pulse Resp B/P (MAP) Pulse Ox O2 Delivery O2 Flow Rate FiO2 11/11/24 21:51 58 126/78 11/11/24 21:00 97.1 23 92 97.1 11/11/24 08:00 Room Air* 0 N/A Nasal Cannula* Total Intake and Output 11/10/24 11/10/24 11/11/24 15:00 23:00 07:00 Intake Total 900 ml Output Total 550 ml Balance 900 ml -550 ml medications Current Medications Medications Dose Ordered Sig/Liliam Route Start Time Stop Time Status Last Admin Dose Admin Amino Acids 0 ml @ 0 mls/hr PER PHARMACY IV 10/15/24 18:45 Cancel Dextrose 50 ml UD IV 10/16/24 09:30 Cancel Polyethylene Glycol 17 gm DAILYPRN PRN GT 10/17/24 16:45 10/19/24 05:54 17 GM Vancomycin HCl 0 ml @ 0 mls/hr UD IV 10/19/24 14:00 Cancel Metoclopramide HCl 5 mg BID IV 10/25/24 10:00 Hold 10/25/24 21:32 5 MG Sodium Chloride 10 ml QSHIFT@10,22 IV 10/26/24 22:00 11/11/24 21:51 10 ML Metoprolol Tartrate 2.5 mg Q6HPRN PRN IV 10/31/24 09:15 Diagnostic Test (Pha) 1 strip Q6HR 11/01/24 18:00 11/11/24 17:54 1 STRIP Insulin Human Regular FOLLOW SLIDING SCALE Q6HR SC 11/01/24 18:00 11/11/24 12:35 2 UNITS Dextrose 50 ml UD IV 11/01/24 18:00 Amino Acids 0 ml @ 0 mls/hr PER PHARMACY IV 11/04/24 22:00 Cancel Amino Acid Protein 30 ml DAILY PO 11/04/24 10:00 Dextrose 1,000 ml @ 50 mls/hr Q20H IV 11/04/24 12:45 11/11/24 04:45 50 MLS/HR Hydrocortisone Sodium Succinate 50 mg BID IV 11/06/24 22:00 11/11/24 21:50 50 MG Pantoprazole Sodium 40 mg BID IV 11/09/24 22:00 11/11/24 21:50 40 MG Morphine Sulfate 4 mg Q4HPRN PRN IV 11/10/24 13:00 Acetaminophen/ Hydrocodone Bitart 1 tab Q4HPRN PRN GT 11/10/24 15:30 11/11/24 19:13 1 TAB Metoprolol Tartrate 12.5 mg BID GT 11/10/24 22:00 11/11/24 11:52 12.5 MG Mexiletine HCl 150 mg TID GT 11/10/24 22:00 11/11/24 21:49 150 MG Enteral Nutritional Formula 240 ml QID PO 11/10/24 18:00 11/11/24 22:05 240 ML Fat Emulsion Intravenous 150 ml/Sodium Acetate 20 meq/Potassium Acetate 30 meq/ Potassium Phosphate 19.8 meq/Calcium Gluconate 2.3 meq/ Magnesium Sulfate 4 meq/ Multivitamins 10 ml/Chromium/ Copper/Manganese/ Zinc 1 ml/Amino Acids/Dextrose/ Purified Water 1,596.4462 ml @ 66 mls/hr [id number] IV 11/11/24 22:00 11/12/24 21:59 Cancel objective The patient is well-nourished and well-developed with no distress. MENTAL STATUS: Subjective CRANIAL NERVES: Pupils are equal, round and reactive. EOMs full and conjugate. Facial sensation intact in all three divisions bilaterally. Mandibular strength intact. Facial muscles symmetrical and strength intact. SENSATION: Okay to pinprick and light touch MOTOR: Normal tone in the upper and lower extremity. Normal muscle bulk. No fasciculations. She move the arms and legs REFLEXES: Deep tendon reflexes are symmetrical. No pathological reflexes. CEREBELLAR/COORDINATION: Deferred GAIT/STATION: deferred. laboratory and microbiology Laboratory Tests 11/11/24 05:43 11/10/24 04:57 Test 11/11/24 05:43 Range/Units Serum Glucose 138 H 74-106 mg/dL Problem List Cardiopulmonary arrest Status post CPR Metabolic encephalopathy Hypoxic encephalopathy Congestive heart failure Leukocytosis/sepsis/septic shock Respiratory failure Elevated liver function tests AFib S/P pacemaker insertion on 10/17/2024 ? Chronic organic brain syndrome Assessment/Plan Monitoring Supportive treatment EEG Telemetry DVT prophylaxis GI prophylaxis Cardiology on case Pulmonology on case Nephrology on case Need more history This medical document was created using an electronic medical record system with [employer] dictation system. Although this document has been carefully reviewed, there may still be some phonetic and typographical errors. These areas are purely typographical due to imperfections of the software programs, and do not reflect any compromise in the patient's medical care. Prognosis poor Dietary Evaluation Review Comments: 1) TF Jevity 1.2Cal @ 55 ml/hr. x 24hr along with Pro-stat 1 pk daily. Start @ 20ml/hr, increase 10ml/hr Q4H until goal is reached. TF @ goal volume provides 1684 kcal (100% energy needs), 88 gm protein (100% protein needs), 1065 ml free water. 2) Water flush 100ml Q4H if allowed, adjust PRN 3) Advance to cardiac diet as medically feasible 4) Monitor NPO status, lab values, wt trend, I/O Expected Outcomes/Goals: To meet >75% estimated needs within 7 days Lab values to improve Fu 2-3 days Plan discussed with: Other CAROLINE ROBB MD Nov 11, 2024 23:36
[2024-11-12] VITALS (8 sets, daily range): BP systolic 113–124; BP diastolic 50–76; PULSE 63–72; RESP 23–26; TEMP 97.4–98.1; O2SAT 92–100
--- NOTE | 2024-11-12 08:27 | DVHPN2 ---
Progress Note - Dictate Date Seen: Nov 12, 2024 Has the PT tested + for MRSA If YES, has PT been informed?: No Medical Necessity Reason Pt with a Central, PICC or Fol: No The following are medically ne: PICC Line, Cutler Catheter Reason for cutler catheter: Strict I&O vital signs Vital Sign Date Time Temp Pulse Resp B/P (MAP) Pulse Ox O2 Delivery O2 Flow Rate FiO2 11/12/24 05:00 97.9 63 23 113/63 (80) 100 97.9 11/11/24 20:00 Room Air* 0 21 Total Intake and Output 11/11/24 11/11/24 11/12/24 15:00 23:00 07:00 Intake Total 0 ml 600 ml Output Total 1150 ml Balance -1150 ml 600 ml medications Current Medications Medications Dose Ordered Sig/Liliam Route Start Time Stop Time Status Last Admin Dose Admin Amino Acids 0 ml @ 0 mls/hr PER PHARMACY IV 10/15/24 18:45 Cancel Dextrose 50 ml UD IV 10/16/24 09:30 Cancel Polyethylene Glycol 17 gm DAILYPRN PRN GT 10/17/24 16:45 10/19/24 05:54 17 GM Vancomycin HCl 0 ml @ 0 mls/hr UD IV 10/19/24 14:00 Cancel Metoclopramide HCl 5 mg BID IV 10/25/24 10:00 Hold 10/25/24 21:32 5 MG Sodium Chloride 10 ml QSHIFT@10,22 IV 10/26/24 22:00 11/11/24 21:51 10 ML Metoprolol Tartrate 2.5 mg Q6HPRN PRN IV 10/31/24 09:15 Diagnostic Test (Pha) 1 strip Q6HR 11/01/24 18:00 11/12/24 06:03 1 STRIP Insulin Human Regular FOLLOW SLIDING SCALE Q6HR SC 11/01/24 18:00 11/11/24 12:35 2 UNITS Dextrose 50 ml UD IV 11/01/24 18:00 Amino Acids 0 ml @ 0 mls/hr PER PHARMACY IV 11/04/24 22:00 Cancel Amino Acid Protein 30 ml DAILY PO 11/04/24 10:00 Dextrose 1,000 ml @ 50 mls/hr Q20H IV 11/04/24 12:45 11/12/24 00:51 50 MLS/HR Hydrocortisone Sodium Succinate 50 mg BID IV 11/06/24 22:00 11/11/24 21:50 50 MG Pantoprazole Sodium 40 mg BID IV 11/09/24 22:00 11/11/24 21:50 40 MG Morphine Sulfate 4 mg Q4HPRN PRN IV 11/10/24 13:00 Acetaminophen/ Hydrocodone Bitart 1 tab Q4HPRN PRN GT 11/10/24 15:30 11/11/24 19:13 1 TAB Metoprolol Tartrate 12.5 mg BID GT 11/10/24 22:00 11/11/24 11:52 12.5 MG Mexiletine HCl 150 mg TID GT 11/10/24 22:00 11/12/24 06:03 150 MG Enteral Nutritional Formula 240 ml QID PO 11/10/24 18:00 11/11/24 22:05 240 ML Fat Emulsion Intravenous 150 ml/Sodium Acetate 20 meq/Potassium Acetate 30 meq/ Potassium Phosphate 19.8 meq/Calcium Gluconate 2.3 meq/ Magnesium Sulfate 4 meq/ Multivitamins 10 ml/Chromium/ Copper/Manganese/ Zinc 1 ml/Amino Acids/Dextrose/ Purified Water 1,596.4462 ml @ 66 mls/hr [id number] IV 11/11/24 22:00 11/12/24 21:59 Cancel laboratory and microbiology Laboratory Tests 11/11/24 05:43 11/10/24 04:57 Test 11/11/24 05:43 Range/Units Serum Glucose 138 H 74-106 mg/dL Assessment/Plan s/p PEG. More communicative. Patient is a 54-year-old female who was brought to the hospital for witnessed syncope. She is intubated and is being managed in ICU. Information was obtained by reviewing the chart and communicating with patient's son (over the phone). Family recognized witnessed syncope and started CPR and called EMS. Reportedly, EMS found the patient in ventricular fibrillation and shocked the patient and brought the patient to the hospital. Patient was intubated in emergency room and transferred to ICU. Patient was on amiodarone drip. Later the patient had ventricular tachycardia (Systane). High sensitive troponin had been minimally/flatly elevated. Presentation was not in favor of acute coronary syndrome. Cardiology is involved for cardiac aspects of care. NAD Does not talk. Alert and oriented to self only. No JVD. Mucosa pale. No carotid bruit. Scattered rhonchi in the lungs is heard. Cardiac: Regular, no thrill. Systolic murmur 2/6 in apex is heard. Abdomen is soft. No edema in extremities. Past medical history as per son: Congenital heart disease, status post bypass WBC: 14.5 - 11.9 - 18.8 - 20.0 - 21.2 - 14.3 - 10.3 - 8.9 - 9.2 - 11.1 - 12.1 - 10.8 - 12.0 - 9.9 - 15.4 - 14.8 - 12.1 - 10.5 - 5.8 - 5.3 - 4.2 - 5.8 - 4.1 - 7.0 - 9.3 - 8.3 - 11.5 - 8.4 - 8.4 - 5.4 - 5.7 - 8.4 - 7.4 - 6.2 Hemoglobin: 10.1 - 9.6 - 9.2 - 8.8 - 8.7 - 8.0 - 8.3 - 8.5 - 7.8 - 10.2 - 10.7 - 9.9 - 9.7 - 9.3 - 9.3 - 8.6 - 8.1 - 7.4 - 7.5 - 7.4 - 7.5 - 7.2 - 7.7 - 7.0 - (post PRBC transfusion) 10.4 - 10 - 9.5 - 10.0 - 9.2 - 9.8 -9.6 - 9.7 - 10.2 - 10.6 - 9.7 Creatinine: 0.95 - 0.93 - 0.87 - 0.83 - 0.83 - 0.76 - 0.68 - 0.72 - 0.79 - 0.76 - 0.80 - 0.84 - 0.61 - 0.65 - 0.74 - 0.64 - 0.73 - 0.82 - 0.88 - 1.03 - 0.99 - 0.85 - 0.87 - 0.79 - 1.12 - 1.15 - 1.04 - 0.96 - 0.94 - 0.93 - 0.78 - 0.71 - 0.68 - 0.61 - 0.59 - 0.49 - 0.39 - 0.54 - 0.48 Potassium: 3.4 - 4.0 - 4.6 - 3.5 - 3.3 - 4.1 - 3.7 - 3.2 - 3.7 - 4.0 - 3.2 - 3.4 - 3.9 - 4.2 - 3.3 - 3.8 - 3.6 - 3.4 - 4.2 - 3.8 - 4.5 - 4.1 - 3.5 - 4.2 - 3.3 - 2.6 - 3.5 - 3.8 - 2.4 - 2.9 - 4.6 - 2.8 - 4.8 - 4.9 - 3.4 - 3.1 - 3.7 - 4.4 - 3.7 - 3.7 - 3.1 - 3.0 - 3.8 - 4.4 - 3.8 - 4.1 - 4.3 - 3.9 - 4.4 Magnesium: 2.0 - 1.6 - 2.0 - 3.0 - 1.5 - 1.9 - 2.1 - 1.8 - 2.0 - 1.9 - 1.9 - 2.6 - 2.0 - 1.8 - 1.6 - 2.0 - 2.2 - 1.9 - 2.3 - 2.2 - 2.2 - 2.1 - 2.1 - 1.9 2.7 - 2.6 - 2.3 - 2.4 - 2.5 - 2.3 - 2.5 - 2.3 - 2.3 - 2.4 - 2.1 - 1.9 - 2.2 - 2.1 - 2.0 Troponin (high sensitive): 141 - 138 - 117 BNP: 457.16 - 1073.91 AST/ALT: 32/11 - 19/13 - 538/168 - 293/152 - 131/130 - 78/94 - 68/74 - 48/57 - 27/38 - 15/23 - 20/18 - 23/17 - 29/16 - 27/13 - 34/17 - 73/49 - 41/43 - 30/47 - 30/42 - 29/42 - 17/27 - 160/87 - 900/478 - 986/571 - 382/436 - 110/244 - 42/170 - 22/113 - 16/77 - 15/59 - 19/50 - 20/41 - 16/32 - 17/30 - 14/25 - 25/38 Digoxin level: 2.83 - 1.25 - 0.98 UDS: non-revealing Chest x-ray revealed: Lines and Tubes: Endotracheal tube tip projects approximately 1.4 cm above the level of the tyler. Enteric catheter courses below the lateral of the diaphragm and terminates beyond the inferior margin of the image. Right internal jugular central venous catheter terminates within the distal superior vena cava. Lungs: Moderate diffuse increased prominence of the pulmonary vasculature without evidence of focal consolidation. Pleura: No effusion. No pneumothorax. Cardiomediastinal contours: Cardiomegaly. Bones: Unremarkable IMPRESSION: 1. Cardiomegaly and diffuse increased prominence of the pulmonary vasculature. 2. Lines and tubes as above. Repeat chest x-ray revealed: IMPRESSION: 1. Endotracheal tube tip 1.6 cm above the tyler; consider 2 cm retraction 2. Mild pulmonary vascular congestion. Moderate cardiomegaly. Repeat chest xry revealed: IMPRESSION: Endotracheal tube tip 1.6 cm above the tyler; consider 2 cm retraction Mild pulmonary vascular congestion. Moderate cardiomegaly. Repeat chest xry revealed: IMPRESSION: 1. Stable cardiomegaly, small left pleural effusion and mild diffuse increased prominence of the pulmonary vasculature. 2. Repositioned endotracheal tube as above. Remaining lines and tubes unchanged. Repeat chest xry revealed: IMPRESSION: 1. Cardiomegaly, stable diffuse increased prominence of the pulmonary vasculature and small bilateral pleural effusions. 2. Slight interval advancement of endotracheal tube as above. Remaining lines and tubes unchanged. Repeat chest xry revealed: IMPRESSION: 1. Slight interval decrease in diffuse increased prominence of the pulmonary vasculature. 2. Stable cardiomegaly and small left pleural effusion. 3. Lines and tubes unchanged. Repeat chest xry revealed: IMPRESSION: 1. Cardiomegaly and small left pleural effusion. 2. Lines and tubes unchanged. Repeat chest xry revealed: IMPRESSION: Stable lines and tubes. Similar lung aeration. Repeat chest xry revealed: IMPRESSION: Cardiomegaly and small left pleural effusion. Lines and tubes unchanged. Repeat chest xry revealed: IMPRESSION: Placement of a cardiac pacer, no pneumothorax is seen. Stable lines and tubes. Repeat chest xry revealed: IMPRESSION: 1. Worsening mixed opacities in the right lower lung. No other significant change from the previous study. Stable support devices. Repeat chest xry revealed: Heart is prominent in size with postsurgical changes, median sternotomy wires, and a single lead left cardiac defibrillator. Support lines and tubes appear unchanged in satisfactory in position. No sizable effusion or pneumothorax. Mild pulmonary vascular congestion. No significant interval change. Repeat chest xry revealed: IMPRESSION: 1. No significant change from the previous study. Stable support devices. Similar findings of heart failure including left pleural effusion. Repeat chest xry revealed: IMPRESSION: 1. No significant change from the previous study. Stable support devices. Similar findings of heart failure including trace left pleural effusion. Repeat chest xry revealed: Lines and Tubes: Unchanged. Left anterior chest wall cardiac pacing device. Lungs: Clear Pleura: No effusion. No pneumothorax. Cardiomediastinal contours: Cardiomegaly. Bones: Unremarkable IMPRESSION: 1. Cardiomegaly. 2. Lines and tubes unchanged. Repeat chest xry revealed: IMPRESSION: Lines and tubes in satisfactory position. No significant interval change. Repeat chest xry revealed: Lines and Tubes: ET tube and NG tube removed. Lungs: Congestion Pleura: No effusion. No pneumothorax. Cardiomediastinal contours: Cardiomegaly Bones: Unremarkable IMPRESSION: 1. Cardiomegaly with CHF. Repeat chest xry revealed: IMPRESSION: 1. Cardiomegaly. 2. Patchy bilateral airspace disease. Liver Ultrasound revealed: Hepatic steatosis. Trace right pleural effusion. Trace ascites Gallstones Bladder ultrasound revealed: IMPRESSION: 1. Cutler catheter in the bladder in the bladder is decompressed. Repeat Bladder Ultrasound revealed: Urinary bladder is unremarkable with prevoid volume of 29 mL. Urinary bladder wall measures 1.5 mm. Cutler catheter is noted. KUB revealed: IMPRESSION: Nonobstructive bowel gas pattern. Nasogastric tube tip in the stomach. Large stool burden. Repeat KUB revealed: Right lower extremity PICC line with tip projecting over the expected region of the intrahepatic IVC. Nasogastric tube projecting towards the distal stomach. Nonspecific bowel gas pattern. Cardiomegaly and left basilar airspace opacities, incompletely characterized. Atherosclerotic calcification disease. Repeat KUB revealed: IMPRESSION: 1. Nonspecific nonobstructive bowel gas pattern. 2. Gastrostomy tube projects over the midportion of the left hemiabdomen. 3. Right femoral approach central venous catheter as described above. Left upper ext arterial duplex: IMPRESSION: No hemodynamically significant stenosis based on peak systolic velocity criteria. Left lower ext arterial duplex: IMPRESSION: There is no evidence for peripheral vascular insufficiency in the left lower extremity. No significant focal stenosis is identified. Liver Ultrasound revealed: Hepatic steatosis. Hepatomegaly. Cholelithiasis. CT of the head revealed: IMPRESSION: No acute intracranial abnormality. Repeat CT of head revealed: IMPRESSION: No acute intracranial abnormality. Repeat CT of Head revealed: IMPRESSION: No acute intracranial abnormality. Echocardiogram reported: lvef 15-20% dilated LV severe global dysfunction mild RV dysfunction biatrial enlargement mild moderate MAC, moderate mitral regurg mild to moderate aortic regug (images of echo reviewed and questioned presence of mitral ring and also some component (moderate of Mitral stenosis) EKG revealed sinus rhythm Telemetry revealed occasions of atrial fibrillation. There was occasional sustained ventricular tachycardia. EMS tele monitor revealed ventricular fibrillation for which the patient was shocked. Has remained sinus rhythm. Later with A-fib with MVR LHC revealed: Patent RICHMOND to LAD; Patent SVG to obtuse marginal; LVEF of 20% with increased EDP; Proximal disease in LAD/LCX RICHIE was performed: Consistent with severely reduced LVEF. Consistent with previously implanted Mitral ring, Up to moderate Mitral stenosis/Mitral Regurgitation and also Moderate Aortic insufficiency. Patient is a 54-year-old female who presented with witnessed syncope. She was found to have ventricular fibrillation for which was shocked. Later had repeated episode of sustained ventricular tachycardia. Patient has been kept in ICU. Does have baseline history of coronary artery disease for which has had bypass surgery. Left heart catheterization was performed which revealed patent RICHMOND and patent SVG. ACS is not considered at this point. It is of note that the patient's echocardiogram reveals significantly use systolic function. Valvular heart disease is considered. Findings are in favor of previously implanted mitral ring. By reviewing the echo images, component of up to moderate mitral stenosis could not be ruled out. LHC was performed that ruled out any active specific ischemia as an etiology for presentation. Is off Amiodarone for abnormal LFT. Being followed by Nephrology / Pulmonary / Neurology / GI ID. Tele has remained sinus rhythm. Had episode of a-fib with RVR. Was loaded with Digoxin. Dig level was performed at wrong timing (only 5 hours after the last Dig given). Dig toxicity is not considered. Patient is back to normal sinus rhythm. Has good kidney function. Repeat Dig level is acceptable level. s/p ICD implantation by EP. Intubated, later extubated. s/p PEG Syncope V-fib s/p shock Sustained V-tach Paroxysmal A-fib VHD, s/p Mitral ring Systolic heart failure Abnormal LFT, at a point resolved, later appeared again s/p ICD (Biotronik) implantation by EP (Dr Armstrong) s/p PRBC transfusion for significant anemia Hepatic Steatosis Gallstones Failed Swallowing s/p PEG Cardiac suggestion for management: Manage in Tele Follow up electrolytes and kidney function test and correct abnormalities Full anticoagulation (a-fib with high CHADS-Vasc score). s/p ICD implantation. To start Eliquis (after performance of possible PEG tube placement): for now on prophylactic dose of Lovenox Off Amio drip (worsened LFT) On Mexiletine If need for pressure support: use Phenyl Ephrine / vasopressin, keep MAP above 65 (for now off pressure support and tolerating) On Metoprolol to decrease risk of Vtach (as patient has ICD with bradycardia protection: may continue metoprolol in case of bradycardia, but hold: if hypotensive) May consider/add Esmolol for PVC/Vtach (if needed) Does not talk. Alert and oriented to self only. As she has not passed swallowing evaluation: IV Metoprolol if needed (HR above 100) s/p ICD (Biotronik) implantation by EP Eliquis: 2.5 mg BID: when she can swallow and after any predicted procedure completed s/p PRBC transfusion for anemia Failed swallowing evaluation for now Cardiac arenas, patient is moderate risk patient for moderate risk PEG placement. Avoid Hypotension. Pulmonary Follow up GI follow up for repeated failed swallowing evaluation Provide previous medical records from reaching out to previous hospitals in [facility]... Further evaluation and management depends on the above and clinical course. A total of 55 minutes was spent reviewing the patient record, examining the patient, making a diagnostic and therapeutic plan, discussing this plan with medical personnel, following up on diagnostic studies and following the patient for clinical stability excluding any and all procedures. At least 50% of this time was spent in direct, [id number] contact. Thank you for allowing me to participate in this patient's care. Further recommendations will depend on patient's clinical course. Please do not hesitate to contact me if you have any questions or concerns. This medical document was created using electronic medical record system with [employer] computerized dictation system. Although this document has been carefully reviewed, there may still be some phonetic and typographical errors. These areas are purely typographical due to the imperfection of the software programs, and do not reflect any compromise in the patient's medical care. Dietary Evaluation Review Comments: 1) TF Jevity 1.2Cal @ 55 ml/hr. x 24hr along with Pro-stat 1 pk daily. Start @ 20ml/hr, increase 10ml/hr Q4H until goal is reached. TF @ goal volume provides 1684 kcal (100% energy needs), 88 gm protein (100% protein needs), 1065 ml free water. 2) Water flush 100ml Q4H if allowed, adjust PRN 3) Advance to cardiac diet as medically feasible 4) Monitor NPO status, lab values, wt trend, I/O Expected Outcomes/Goals: To meet >75% estimated needs within 7 days Lab values to improve Fu 2-3 days Plan discussed with: Other (nurse) CORDELL VERA MD Nov 12, 2024 08:27
[2024-11-12] MEDS ORDERED: APIXABAN 5 MG TAB PO SCH (10:00)
[2024-11-12 12:21] LABS: INR 1.14 (0.9-1.15); Prothrombin Time 11.9 sec (9.3-11.8)
--- NOTE | 2024-11-12 14:02 | DVHPN2 ---
Progress Note - Dictate Date Seen: Nov 12, 2024 Has the PT tested + for MRSA If YES, has PT been informed?: No Medical Necessity Reason Pt with a Central, PICC or Fol: No The following are medically ne: PICC Line, Cutler Catheter Reason for cutler catheter: Strict I&O vital signs Vital Sign Date Time Temp Pulse Resp B/P (MAP) Pulse Ox O2 Delivery O2 Flow Rate FiO2 11/12/24 10:24 66 124/76 11/12/24 08:58 97.4 24 94 97.4 11/12/24 08:00 Room Air* 0 21 Total Intake and Output 11/11/24 11/11/24 11/12/24 15:00 23:00 07:00 Intake Total 0 ml 600 ml Output Total 1150 ml Balance -1150 ml 600 ml medications Current Medications Medications Dose Ordered Sig/Liliam Route Start Time Stop Time Status Last Admin Dose Admin Amino Acids 0 ml @ 0 mls/hr PER PHARMACY IV 10/15/24 18:45 Cancel Dextrose 50 ml UD IV 10/16/24 09:30 Cancel Polyethylene Glycol 17 gm DAILYPRN PRN GT 10/17/24 16:45 10/19/24 05:54 17 GM Vancomycin HCl 0 ml @ 0 mls/hr UD IV 10/19/24 14:00 Cancel Metoclopramide HCl 5 mg BID IV 10/25/24 10:00 Hold 10/25/24 21:32 5 MG Sodium Chloride 10 ml QSHIFT@10,22 IV 10/26/24 22:00 11/12/24 10:00 10 ML Metoprolol Tartrate 2.5 mg Q6HPRN PRN IV 10/31/24 09:15 Diagnostic Test (Pha) 1 strip Q6HR 11/01/24 18:00 11/12/24 06:03 1 STRIP Insulin Human Regular FOLLOW SLIDING SCALE Q6HR SC 11/01/24 18:00 11/11/24 12:35 2 UNITS Dextrose 50 ml UD IV 11/01/24 18:00 Amino Acids 0 ml @ 0 mls/hr PER PHARMACY IV 11/04/24 22:00 Cancel Amino Acid Protein 30 ml DAILY PO 11/04/24 10:00 Hydrocortisone Sodium Succinate 50 mg BID IV 11/06/24 22:00 11/12/24 10:23 50 MG Pantoprazole Sodium 40 mg BID IV 11/09/24 22:00 11/12/24 10:23 40 MG Morphine Sulfate 4 mg Q4HPRN PRN IV 11/10/24 13:00 Acetaminophen/ Hydrocodone Bitart 1 tab Q4HPRN PRN GT 11/10/24 15:30 11/11/24 19:13 1 TAB Metoprolol Tartrate 12.5 mg BID GT 11/10/24 22:00 11/12/24 10:24 12.5 MG Mexiletine HCl 150 mg TID GT 11/10/24 22:00 11/12/24 06:03 150 MG Fat Emulsion Intravenous 150 ml/Sodium Acetate 20 meq/Potassium Acetate 30 meq/ Potassium Phosphate 19.8 meq/Calcium Gluconate 2.3 meq/ Magnesium Sulfate 4 meq/ Multivitamins 10 ml/Chromium/ Copper/Manganese/ Zinc 1 ml/Amino Acids/Dextrose/ Purified Water 1,596.4462 ml @ 66 mls/hr [id number] IV 11/11/24 22:00 11/12/24 21:59 Cancel objective General Appearance: no distress HEENT: EOMI, PERRLA, normal external inspect of ears, no icterus, no nasal drainage Neck: no carotid bruit, no jugular venous distention (JVD), no lymphadenopathy Chest: normal thorax Respiratory: Intubated, clear to auscultation, normal air movement Cardiovascular: regular rate and rhythm, no diastolic murmur, no jugular venous distention (JVD), no rub, no systolic murmur Abdominal: soft, no hepatomegaly, no mass, no splenomegaly, no tenderness Genitourinary: grossly normal external Musculoskeletal: no joint tenderness, no swelling Extremities: normal pulses, no calf tenderness, no clubbing, no cyanosis, no edema Skin: no bruising, no jaundice, no rash Neurological: No focal deficit laboratory and microbiology Laboratory Tests 11/11/24 05:43 11/10/24 04:57 Test 11/11/24 05:43 Range/Units Serum Glucose 138 H 74-106 mg/dL Problem List Cardiac Arrest with Ventricular Fibrillation Assessment: Patient experienced cardiac arrest with ventricular fibrillation on 10/07/24, witnessed by family members who initiated CPR. EMS found the patient in ventricular fibrillation and administered shock therapy. Rhythm strip analysis confirmed ventricular fibrillation. Patient required intubation and sedation upon ED arrival. Currently admitted to ICU for close observation. Cardiology has been consulted and plans for AICD placement, likely on Tuesday. Infectious disease clearance has been obtained for the AICD procedure, addressing initial concerns of leukocytosis which is now improving. Status post-cardiac arrest. Plan: - Continue ICU monitoring - Proceed with AICD placement as planned (likely Tuesday), cleared by infectious disease. - Maintain intubation and sedation until AICD placement - Continue Heparin drip for paroxysmal atrial fibrillation - Continue Mexitil - DC amiodarone due to transaminitis - added esmolol drip per Cardiology for AFib and added push doses of digoxin Coronary Artery Disease Assessment: Patient with history of 2-vessel CABG (Coronary Artery Bypass Grafting). Surgical intervention previously performed to address significant coronary artery stenosis. Plan: - Continue medical management - Follow up with cardiology for ongoing coronary artery disease management Acute and Chronic Systolic Heart Failure Assessment: Patient has acute and chronic systolic heart failure with severely reduced left ventricular function. Ejection fraction is estimated at 15-20%. RICHIE findings are consistent with severely reduced left ventricular ejection fraction, previously implanted mitral ring, up to moderate mitral stenosis and regurgitation, and moderate aortic insufficiency. Plan: - Continue cardiology consultation - continue IV diuretics (IV Lasix) - Monitor renal function Acute Hypoxic Respiratory Failure Assessment: Patient is currently intubated due to acute hypoxic respiratory failure. Dr. Downey from pulmonology is managing this aspect of care. Plan: - Maintain current intubation as per pulmonology recommendation - Proceed with CPAP trials when deemed appropriate by pulmonology Transaminitis Assessment: Patient has elevated liver function tests, likely secondary to amiodarone use. Cardiology has discontinued amiodarone in response. Plan: - Monitor liver function tests - Amiodarone discontinued as per cardiology Enterobacter PNA Assessment: Sputum culture positive for Enterobacter. Plan: - Continue treatment with Eratapenem to complete 10 days regimen -Infectious disease consult Hemodynamic Support Assessment: Patient requires vasopressor support for hemodynamic stability. Plan: - Continue vasopressin - Continue neosynephrine Paroxysmal a fib -DC amiodarone -continue with heparin gtt Shock liver GI consult, trend liver enzymes, hepatitis panel was negative. Ultrasound of the liver had no acute findings. Assessment/Plan Subjective Patient is awake and alert. Objective Patient was admitted on October 07, 2024, after cardiac arrest and was found to have ventricular fibrillation. She is status post AICD placement by Cardiology. Following a prolonged intubation on the ventilator, she developed dysphagia and failed multiple swallow evaluations. She is now status post PEG tube placement on 11/09/2024. Patient is recovering from sepsis due to Enterobacter pneumonia. She remains very deconditioned due to prolonged intubation and ventilator course. Plan Continue tube feeding per dietary recommendations. Consult Donor Services Team Leader for discharge planning to nursing home facility for rehab versus acute rehab. Continue antibiotics. Monitor on EKG. Continue Physical Therapy. Dietary Evaluation Review Comments: 1) TF Jevity 1.2Cal @ 55 ml/hr. x 24hr along with Pro-stat 1 pk daily. Start @ 20ml/hr, increase 10ml/hr Q4H until goal is reached. TF @ goal volume provides 1684 kcal (100% energy needs), 88 gm protein (100% protein needs), 1065 ml free water. 2) Water flush 100ml Q4H if allowed, adjust PRN 3) Advance to cardiac diet as medically feasible 4) Monitor NPO status, lab values, wt trend, I/O Expected Outcomes/Goals: To meet >75% estimated needs within 7 days Lab values to improve Fu 2-3 days Plan discussed with: Patient, Other BRODIE GARVIN STRAIGHT PIN MAKING MACHINE OPERATOR Nov 12, 2024 14:02
--- NOTE | 2024-11-12 14:35 | DVHPN2 ---
Progress Note - Dictate Date Seen: Nov 12, 2024 Has the PT tested + for MRSA If YES, has PT been informed?: No Medical Necessity Reason Pt with a Central, PICC or Fol: No The following are medically ne: PICC Line, Cutler Catheter Reason for cutler catheter: Strict I&O vital signs Vital Sign Date Time Temp Pulse Resp B/P (MAP) Pulse Ox O2 Delivery O2 Flow Rate FiO2 11/12/24 13:00 97.6 63 26 120/72 (88) 93 97.6 11/12/24 08:00 Room Air* 0 21 Total Intake and Output 11/11/24 11/11/24 11/12/24 15:00 23:00 07:00 Intake Total 0 ml 600 ml Output Total 1150 ml Balance -1150 ml 600 ml medications Current Medications Medications Dose Ordered Sig/Liliam Route Start Time Stop Time Status Last Admin Dose Admin Amino Acids 0 ml @ 0 mls/hr PER PHARMACY IV 10/15/24 18:45 Cancel Dextrose 50 ml UD IV 10/16/24 09:30 Cancel Polyethylene Glycol 17 gm DAILYPRN PRN GT 10/17/24 16:45 10/19/24 05:54 17 GM Vancomycin HCl 0 ml @ 0 mls/hr UD IV 10/19/24 14:00 Cancel Metoclopramide HCl 5 mg BID IV 10/25/24 10:00 Hold 10/25/24 21:32 5 MG Sodium Chloride 10 ml QSHIFT@10,22 IV 10/26/24 22:00 11/12/24 10:00 10 ML Metoprolol Tartrate 2.5 mg Q6HPRN PRN IV 10/31/24 09:15 Diagnostic Test (Pha) 1 strip Q6HR 11/01/24 18:00 11/12/24 06:03 1 STRIP Insulin Human Regular FOLLOW SLIDING SCALE Q6HR SC 11/01/24 18:00 11/11/24 12:35 2 UNITS Dextrose 50 ml UD IV 11/01/24 18:00 Amino Acids 0 ml @ 0 mls/hr PER PHARMACY IV 11/04/24 22:00 Cancel Amino Acid Protein 30 ml DAILY PO 11/04/24 10:00 Hydrocortisone Sodium Succinate 50 mg BID IV 11/06/24 22:00 11/12/24 10:23 50 MG Pantoprazole Sodium 40 mg BID IV 11/09/24 22:00 11/12/24 10:23 40 MG Morphine Sulfate 4 mg Q4HPRN PRN IV 11/10/24 13:00 Acetaminophen/ Hydrocodone Bitart 1 tab Q4HPRN PRN GT 11/10/24 15:30 11/11/24 19:13 1 TAB Metoprolol Tartrate 12.5 mg BID GT 11/10/24 22:00 11/12/24 10:24 12.5 MG Mexiletine HCl 150 mg TID GT 11/10/24 22:00 11/12/24 06:03 150 MG Fat Emulsion Intravenous 150 ml/Sodium Acetate 20 meq/Potassium Acetate 30 meq/ Potassium Phosphate 19.8 meq/Calcium Gluconate 2.3 meq/ Magnesium Sulfate 4 meq/ Multivitamins 10 ml/Chromium/ Copper/Manganese/ Zinc 1 ml/Amino Acids/Dextrose/ Purified Water 1,596.4462 ml @ 66 mls/hr [id number] IV 11/11/24 22:00 11/12/24 21:59 Cancel laboratory and microbiology Laboratory Tests 11/11/24 05:43 11/10/24 04:57 Test 11/11/24 05:43 Range/Units Serum Glucose 138 H 74-106 mg/dL Assessment/Plan impression s/p cardiac arrest VT CPR <5 min elevated troponin acute resp failure atelectases pt seen and examined events s/p extubation low oxygen requirements on room air no acute events s/p pacemaker management plan supplemental oxygen as needed titrate to maintain sats 90% or above incentive spirometry aspiration precautions cont abx monitor cx monitor labs renal function daily abg and CXR dvt proph/on physical therapy awaiting placement f/u cardiology Dietary Evaluation Review Comments: 1) TF Jevity 1.2Cal @ 55 ml/hr. x 24hr along with Pro-stat 1 pk daily. Start @ 20ml/hr, increase 10ml/hr Q4H until goal is reached. TF @ goal volume provides 1684 kcal (100% energy needs), 88 gm protein (100% protein needs), 1065 ml free water. 2) Water flush 100ml Q4H if allowed, adjust PRN 3) Advance to cardiac diet as medically feasible 4) Monitor NPO status, lab values, wt trend, I/O Expected Outcomes/Goals: To meet >75% estimated needs within 7 days Lab values to improve Fu 2-3 days Plan discussed with: Patient BELLO ROTHMAN MD Nov 12, 2024 14:35
--- NOTE | 2024-11-12 17:28 | DVHPN2 ---
Progress Note Date Seen: Nov 12, 2024 Resident Creating Document: ETHAN SWAN RESIDENT Has the PT tested + for MRSA If YES, has PT been informed?: No Medical Necessity Reason Pt with a Central, PICC or Fol: No The following are medically ne: PICC Line, Cutler Catheter Reason for cutler catheter: Strict I&O Subjective Review of Systems Patient seen and examined at bedside Denies any nausea and vomiting Tolerating diet Last bowel movement today Peg tube site remains clean, without erythema or purulence Last bowel movement 11/11/2024 Objective vital signs Vital Sign Date Time Temp Pulse Resp B/P (MAP) Pulse Ox O2 Delivery O2 Flow Rate FiO2 11/12/24 16:52 97.9 72 24 114/50 (71) 94 97.9 11/12/24 08:00 Room Air* 0 21 Total Intake and Output 11/11/24 11/11/24 11/12/24 15:00 23:00 07:00 Intake Total 0 ml 600 ml Output Total 1150 ml Balance -1150 ml 600 ml medications Current Medications Medications Dose Ordered Sig/Liliam Route Start Time Stop Time Status Last Admin Dose Admin Amino Acids 0 ml @ 0 mls/hr PER PHARMACY IV 10/15/24 18:45 Cancel Dextrose 50 ml UD IV 10/16/24 09:30 Cancel Polyethylene Glycol 17 gm DAILYPRN PRN GT 10/17/24 16:45 10/19/24 05:54 Vancomycin HCl 0 ml @ 0 mls/hr UD IV 10/19/24 14:00 Cancel Metoclopramide HCl 5 mg BID IV 10/25/24 10:00 Hold 10/25/24 21:32 Sodium Chloride 10 ml QSHIFT@10,22 IV 10/26/24 22:00 11/12/24 10:00 Metoprolol Tartrate 2.5 mg Q6HPRN PRN IV 10/31/24 09:15 Diagnostic Test (Pha) 1 strip Q6HR 11/01/24 18:00 11/12/24 12:00 Insulin Human Regular FOLLOW SLIDING SCALE Q6HR SC 11/01/24 18:00 11/11/24 12:35 Dextrose 50 ml UD IV 11/01/24 18:00 Amino Acids 0 ml @ 0 mls/hr PER PHARMACY IV 11/04/24 22:00 Cancel Amino Acid Protein 30 ml DAILY PO 11/04/24 10:00 11/12/24 16:09 Hydrocortisone Sodium Succinate 50 mg BID IV 11/06/24 22:00 11/12/24 10:23 Pantoprazole Sodium 40 mg BID IV 11/09/24 22:00 11/12/24 10:23 Morphine Sulfate 4 mg Q4HPRN PRN IV 11/10/24 13:00 Acetaminophen/ Hydrocodone Bitart 1 tab Q4HPRN PRN GT 11/10/24 15:30 11/11/24 19:13 Metoprolol Tartrate 12.5 mg BID GT 11/10/24 22:00 11/12/24 10:24 Mexiletine HCl 150 mg TID GT 11/10/24 22:00 11/12/24 16:10 Fat Emulsion Intravenous 150 ml/Sodium Acetate 20 meq/Potassium Acetate 30 meq/ Potassium Phosphate 19.8 meq/Calcium Gluconate 2.3 meq/ Magnesium Sulfate 4 meq/ Multivitamins 10 ml/Chromium/ Copper/Manganese/ Zinc 1 ml/Amino Acids/Dextrose/ Purified Water 1,596.4462 ml @ 66 mls/hr [id number] IV 11/11/24 22:00 11/12/24 21:59 Cancel Apixaban 5 mg BID PO 11/12/24 22:00 Examination General Appearance: Nonverbal Head Exam: Normal inspection. Constricted equal and reactive pupils Neck Exam: Normal inspection. Non-tender. Normal alignment Pulmonary/Respiratory: Chest non-tender. Trace crackles Abdominal Exam: Normal bowel sounds. Soft. Nontender Skin Exam: Normal inspection. Normal color. Warm. Dry laboratory and microbiology Laboratory Tests 11/11/24 05:43 11/10/24 04:57 Test 11/11/24 05:43 Range/Units Serum Glucose 138 H 74-106 mg/dL Microbiology Date/Time Source Procedure Growth Status 10/20/24 04:00 Sputum Gram Stain - Final Complete 10/20/24 04:00 Respiratory Culture - Final Enterobacter cloacae Yeast, not Ilda albicans Complete 10/20/24 01:03 Urine - Cutler Port Urine Culture - Final Yeast, not Ilda albicans Complete 10/19/24 13:02 Blood Blood Culture - Final NO GROWTH AFTER 5 DAYS OF INCUBATION. Complete 10/07/24 16:50 Nose MRSA Screen - Final Complete Labs and/or images reviewed: Labs reviewed by me, Image(s) reviewed by me Problem List/Assessment/Plan Problem List/Assessment/Plan Questionable acute cholecystitis Ventricular fibrillation S/p cardiopulmonary arrest with shock Heart failure with reduced ejection fraction 15-20% Metabolic versus hypoxic encephalopathy Acute hepatocellular injury likely shock liver Cholelithiasis without acute inflammation Nonalcoholic fatty liver disease with steatohepatitis Community-acquired pneumonia growing Enterobacter Plan: Tapered hydrocortisone to q.12 hours on 11/06/2024 Pending repeat swallow evaluation PEG tube placement on Tuesday Liver function tests downtrending appropriately Keep PT/INR therapeutic Hemoglobin stable, transfuse if HB 7 or less Continue tube feedings as patient failed swallow eval Decreased metoclopramide to 5 mg IV b.i.d. JAIDEN positive, outpatient follow up with GI recommended for further workup Thank you so much for the opportunity to consult on your patient. GI team will follow the patient. In case of any questions or concerns please feel free to reach out. Plan discussed with Dr. Anglin Plan discussed with: Other (RN) Dietary Evaluation Review Comments: 1) TF Jevity 1.2Cal @ 55 ml/hr. x 24hr along with Pro-stat 1 pk daily. Start @ 20ml/hr, increase 10ml/hr Q4H until goal is reached. TF @ goal volume provides 1684 kcal (100% energy needs), 88 gm protein (100% protein needs), 1065 ml free water. 2) Water flush 100ml Q4H if allowed, adjust PRN 3) Advance to cardiac diet as medically feasible 4) Monitor NPO status, lab values, wt trend, I/O Expected Outcomes/Goals: To meet >75% estimated needs within 7 days Lab values to improve Fu 2-3 days ETHAN SWAN RESIDENT Nov 12, 2024 17:28
[2024-11-13] VITALS (8 sets, daily range): BP systolic 121–148; BP diastolic 68–80; PULSE 61–75; RESP 20–28; TEMP 97.4–98; O2SAT 95–100
[2024-11-13] MEDS: APIXABAN 5 MG TAB PO SCH
[2024-11-13] MEDS: ceFAZolin 1GM/50ML 50 ML IV ONE ×2 (02:06)
[2024-11-13] MEDS: Jevity 1.2 Cal/Fiber 1 Liter GT SCH (02:35)
--- NOTE | 2024-11-13 08:25 | DVHPN2 ---
Progress Note - Dictate Date Seen: Nov 13, 2024 Has the PT tested + for MRSA If YES, has PT been informed?: No Medical Necessity Reason Pt with a Central, PICC or Fol: No The following are medically ne: PICC Line, Cutler Catheter Reason for cutler catheter: Strict I&O vital signs Vital Sign Date Time Temp Pulse Resp B/P (MAP) Pulse Ox O2 Delivery O2 Flow Rate FiO2 11/13/24 05:00 98.0 61 25 132/68 (89) 98 98.0 11/12/24 20:10 Room Air* 0 21 Total Intake and Output 11/12/24 11/12/24 11/13/24 15:00 23:00 07:00 Intake Total 0 ml 90 ml Output Total 500 ml 300 ml Balance -500 ml -210 ml medications Current Medications Medications Dose Ordered Sig/Liliam Route Start Time Stop Time Status Last Admin Dose Admin Amino Acids 0 ml @ 0 mls/hr PER PHARMACY IV 10/15/24 18:45 Cancel Dextrose 50 ml UD IV 10/16/24 09:30 Cancel Polyethylene Glycol 17 gm DAILYPRN PRN GT 10/17/24 16:45 10/19/24 05:54 17 GM Vancomycin HCl 0 ml @ 0 mls/hr UD IV 10/19/24 14:00 Cancel Metoclopramide HCl 5 mg BID IV 10/25/24 10:00 Hold 10/25/24 21:32 5 MG Sodium Chloride 10 ml QSHIFT@10,22 IV 10/26/24 22:00 11/13/24 00:16 10 ML Metoprolol Tartrate 2.5 mg Q6HPRN PRN IV 10/31/24 09:15 Amino Acids 0 ml @ 0 mls/hr PER PHARMACY IV 11/04/24 22:00 Cancel Amino Acid Protein 30 ml DAILY PO 11/04/24 10:00 11/12/24 16:09 30 ML Hydrocortisone Sodium Succinate 50 mg BID IV 11/06/24 22:00 11/12/24 23:58 50 MG Pantoprazole Sodium 40 mg BID IV 11/09/24 22:00 11/12/24 23:58 40 MG Morphine Sulfate 4 mg Q4HPRN PRN IV 11/10/24 13:00 Acetaminophen/ Hydrocodone Bitart 1 tab Q4HPRN PRN GT 11/10/24 15:30 11/11/24 19:13 1 TAB Metoprolol Tartrate 12.5 mg BID GT 11/10/24 22:00 11/13/24 00:00 12.5 MG Mexiletine HCl 150 mg TID GT 11/10/24 22:00 11/13/24 06:27 150 MG Fat Emulsion Intravenous 150 ml/Sodium Acetate 20 meq/Potassium Acetate 30 meq/ Potassium Phosphate 19.8 meq/Calcium Gluconate 2.3 meq/ Magnesium Sulfate 4 meq/ Multivitamins 10 ml/Chromium/ Copper/Manganese/ Zinc 1 ml/Amino Acids/Dextrose/ Purified Water 1,596.4462 ml @ 66 mls/hr [id number] IV 11/11/24 22:00 11/12/24 21:59 Cancel Apixaban 5 mg BID PO 11/12/24 22:00 11/13/24 00:00 5 MG Enteral Nutritional Formula 1,000 ml 55ML/HR GT 11/13/24 01:45 11/13/24 02:35 1,000 ML laboratory and microbiology Laboratory Tests 11/11/24 05:43 11/10/24 04:57 Test 11/11/24 05:43 Range/Units Serum Glucose 138 H 74-106 mg/dL Assessment/Plan s/p PEG. More communicative. Patient is a 54-year-old female who was brought to the hospital for witnessed syncope. She is intubated and is being managed in ICU. Information was obtained by reviewing the chart and communicating with patient's son (over the phone). Family recognized witnessed syncope and started CPR and called EMS. Reportedly, EMS found the patient in ventricular fibrillation and shocked the patient and brought the patient to the hospital. Patient was intubated in emergency room and transferred to ICU. Patient was on amiodarone drip. Later the patient had ventricular tachycardia (Systane). High sensitive troponin had been minimally/flatly elevated. Presentation was not in favor of acute coronary syndrome. Cardiology is involved for cardiac aspects of care. NAD Does not talk. Alert and oriented to self only. No JVD. Mucosa pale. No carotid bruit. Scattered rhonchi in the lungs is heard. Cardiac: Regular, no thrill. Systolic murmur 2/6 in apex is heard. Abdomen is soft. No edema in extremities. Past medical history as per son: Congenital heart disease, status post bypass WBC: 14.5 - 11.9 - 18.8 - 20.0 - 21.2 - 14.3 - 10.3 - 8.9 - 9.2 - 11.1 - 12.1 - 10.8 - 12.0 - 9.9 - 15.4 - 14.8 - 12.1 - 10.5 - 5.8 - 5.3 - 4.2 - 5.8 - 4.1 - 7.0 - 9.3 - 8.3 - 11.5 - 8.4 - 8.4 - 5.4 - 5.7 - 8.4 - 7.4 - 6.2 Hemoglobin: 10.1 - 9.6 - 9.2 - 8.8 - 8.7 - 8.0 - 8.3 - 8.5 - 7.8 - 10.2 - 10.7 - 9.9 - 9.7 - 9.3 - 9.3 - 8.6 - 8.1 - 7.4 - 7.5 - 7.4 - 7.5 - 7.2 - 7.7 - 7.0 - (post PRBC transfusion) 10.4 - 10 - 9.5 - 10.0 - 9.2 - 9.8 -9.6 - 9.7 - 10.2 - 10.6 - 9.7 Creatinine: 0.95 - 0.93 - 0.87 - 0.83 - 0.83 - 0.76 - 0.68 - 0.72 - 0.79 - 0.76 - 0.80 - 0.84 - 0.61 - 0.65 - 0.74 - 0.64 - 0.73 - 0.82 - 0.88 - 1.03 - 0.99 - 0.85 - 0.87 - 0.79 - 1.12 - 1.15 - 1.04 - 0.96 - 0.94 - 0.93 - 0.78 - 0.71 - 0.68 - 0.61 - 0.59 - 0.49 - 0.39 - 0.54 - 0.48 Potassium: 3.4 - 4.0 - 4.6 - 3.5 - 3.3 - 4.1 - 3.7 - 3.2 - 3.7 - 4.0 - 3.2 - 3.4 - 3.9 - 4.2 - 3.3 - 3.8 - 3.6 - 3.4 - 4.2 - 3.8 - 4.5 - 4.1 - 3.5 - 4.2 - 3.3 - 2.6 - 3.5 - 3.8 - 2.4 - 2.9 - 4.6 - 2.8 - 4.8 - 4.9 - 3.4 - 3.1 - 3.7 - 4.4 - 3.7 - 3.7 - 3.1 - 3.0 - 3.8 - 4.4 - 3.8 - 4.1 - 4.3 - 3.9 - 4.4 Magnesium: 2.0 - 1.6 - 2.0 - 3.0 - 1.5 - 1.9 - 2.1 - 1.8 - 2.0 - 1.9 - 1.9 - 2.6 - 2.0 - 1.8 - 1.6 - 2.0 - 2.2 - 1.9 - 2.3 - 2.2 - 2.2 - 2.1 - 2.1 - 1.9 2.7 - 2.6 - 2.3 - 2.4 - 2.5 - 2.3 - 2.5 - 2.3 - 2.3 - 2.4 - 2.1 - 1.9 - 2.2 - 2.1 - 2.0 Troponin (high sensitive): 141 - 138 - 117 BNP: 457.16 - 1073.91 AST/ALT: 32/11 - 19/13 - 538/168 - 293/152 - 131/130 - 78/94 - 68/74 - 48/57 - 27/38 - 15/23 - 20/18 - 23/17 - 29/16 - 27/13 - 34/17 - 73/49 - 41/43 - 30/47 - 30/42 - 29/42 - 17/27 - 160/87 - 900/478 - 986/571 - 382/436 - 110/244 - 42/170 - 22/113 - 16/77 - 15/59 - 19/50 - 20/41 - 16/32 - 17/30 - 14/ - / Digoxin level: 2.83 - 1.25 - 0.98 UDS: non-revealing Chest x-ray revealed: Lines and Tubes: Endotracheal tube tip projects approximately 1.4 cm above the level of the tyler. Enteric catheter courses below the lateral of the diaphragm and terminates beyond the inferior margin of the image. Right internal jugular central venous catheter terminates within the distal superior vena cava. Lungs: Moderate diffuse increased prominence of the pulmonary vasculature without evidence of focal consolidation. Pleura: No effusion. No pneumothorax. Cardiomediastinal contours: Cardiomegaly. Bones: Unremarkable IMPRESSION: 1. Cardiomegaly and diffuse increased prominence of the pulmonary vasculature. 2. Lines and tubes as above. Repeat chest x-ray revealed: IMPRESSION: 1. Endotracheal tube tip 1.6 cm above the tyler; consider 2 cm retraction 2. Mild pulmonary vascular congestion. Moderate cardiomegaly. Repeat chest xry revealed: IMPRESSION: Endotracheal tube tip 1.6 cm above the tyler; consider 2 cm retraction Mild pulmonary vascular congestion. Moderate cardiomegaly. Repeat chest xry revealed: IMPRESSION: 1. Stable cardiomegaly, small left pleural effusion and mild diffuse increased prominence of the pulmonary vasculature. 2. Repositioned endotracheal tube as above. Remaining lines and tubes unchanged. Repeat chest xry revealed: IMPRESSION: 1. Cardiomegaly, stable diffuse increased prominence of the pulmonary vasculature and small bilateral pleural effusions. 2. Slight interval advancement of endotracheal tube as above. Remaining lines and tubes unchanged. Repeat chest xry revealed: IMPRESSION: 1. Slight interval decrease in diffuse increased prominence of the pulmonary vasculature. 2. Stable cardiomegaly and small left pleural effusion. 3. Lines and tubes unchanged. Repeat chest xry revealed: IMPRESSION: 1. Cardiomegaly and small left pleural effusion. 2. Lines and tubes unchanged. Repeat chest xry revealed: IMPRESSION: Stable lines and tubes. Similar lung aeration. Repeat chest xry revealed: IMPRESSION: Cardiomegaly and small left pleural effusion. Lines and tubes unchanged. Repeat chest xry revealed: IMPRESSION: Placement of a cardiac pacer, no pneumothorax is seen. Stable lines and tubes. Repeat chest xry revealed: IMPRESSION: 1. Worsening mixed opacities in the right lower lung. No other significant change from the previous study. Stable support devices. Repeat chest xry revealed: Heart is prominent in size with postsurgical changes, median sternotomy wires, and a single lead left cardiac defibrillator. Support lines and tubes appear unchanged in satisfactory in position. No sizable effusion or pneumothorax. Mild pulmonary vascular congestion. No significant interval change. Repeat chest xry revealed: IMPRESSION: 1. No significant change from the previous study. Stable support devices. Similar findings of heart failure including left pleural effusion. Repeat chest xry revealed: IMPRESSION: 1. No significant change from the previous study. Stable support devices. Similar findings of heart failure including trace left pleural effusion. Repeat chest xry revealed: Lines and Tubes: Unchanged. Left anterior chest wall cardiac pacing device. Lungs: Clear Pleura: No effusion. No pneumothorax. Cardiomediastinal contours: Cardiomegaly. Bones: Unremarkable IMPRESSION: 1. Cardiomegaly. 2. Lines and tubes unchanged. Repeat chest xry revealed: IMPRESSION: Lines and tubes in satisfactory position. No significant interval change. Repeat chest xry revealed: Lines and Tubes: ET tube and NG tube removed. Lungs: Congestion Pleura: No effusion. No pneumothorax. Cardiomediastinal contours: Cardiomegaly Bones: Unremarkable IMPRESSION: 1. Cardiomegaly with CHF. Repeat chest xry revealed: IMPRESSION: 1. Cardiomegaly. 2. Patchy bilateral airspace disease. Liver Ultrasound revealed: Hepatic steatosis. Trace right pleural effusion. Trace ascites Gallstones Bladder ultrasound revealed: IMPRESSION: 1. Cutler catheter in the bladder in the bladder is decompressed. Repeat Bladder Ultrasound revealed: Urinary bladder is unremarkable with prevoid volume of 29 mL. Urinary bladder wall measures 1.5 mm. Cutler catheter is noted. KUB revealed: IMPRESSION: Nonobstructive bowel gas pattern. Nasogastric tube tip in the stomach. Large stool burden. Repeat KUB revealed: Right lower extremity PICC line with tip projecting over the expected region of the intrahepatic IVC. Nasogastric tube projecting towards the distal stomach. Nonspecific bowel gas pattern. Cardiomegaly and left basilar airspace opacities, incompletely characterized. Atherosclerotic calcification disease. Repeat KUB revealed: IMPRESSION: 1. Nonspecific nonobstructive bowel gas pattern. 2. Gastrostomy tube projects over the midportion of the left hemiabdomen. 3. Right femoral approach central venous catheter as described above. Left upper ext arterial duplex: IMPRESSION: No hemodynamically significant stenosis based on peak systolic velocity criteria. Left lower ext arterial duplex: IMPRESSION: There is no evidence for peripheral vascular insufficiency in the left lower extremity. No significant focal stenosis is identified. Liver Ultrasound revealed: Hepatic steatosis. Hepatomegaly. Cholelithiasis. CT of the head revealed: IMPRESSION: No acute intracranial abnormality. Repeat CT of head revealed: IMPRESSION: No acute intracranial abnormality. Repeat CT of Head revealed: IMPRESSION: No acute intracranial abnormality. Echocardiogram reported: lvef 15-20% dilated LV severe global dysfunction mild RV dysfunction biatrial enlargement mild moderate MAC, moderate mitral regurg mild to moderate aortic regug (images of echo reviewed and questioned presence of mitral ring and also some component (moderate of Mitral stenosis) EKG revealed sinus rhythm Telemetry revealed occasions of atrial fibrillation. There was occasional sustained ventricular tachycardia. EMS tele monitor revealed ventricular fibrillation for which the patient was shocked. Has remained sinus rhythm. Later with A-fib with MVR LHC revealed: Patent RICHMOND to LAD; Patent SVG to obtuse marginal; LVEF of 20% with increased EDP; Proximal disease in LAD/LCX RICHIE was performed: Consistent with severely reduced LVEF. Consistent with previously implanted Mitral ring, Up to moderate Mitral stenosis/Mitral Regurgitation and also Moderate Aortic insufficiency. Patient is a 54-year-old female who presented with witnessed syncope. She was found to have ventricular fibrillation for which was shocked. Later had repeated episode of sustained ventricular tachycardia. Patient has been kept in ICU. Does have baseline history of coronary artery disease for which has had bypass surgery. Left heart catheterization was performed which revealed patent RICHMOND and patent SVG. ACS is not considered at this point. It is of note that the patient's echocardiogram reveals significantly use systolic function. Valvular heart disease is considered. Findings are in favor of previously implanted mitral ring. By reviewing the echo images, component of up to moderate mitral stenosis could not be ruled out. LHC was performed that ruled out any active specific ischemia as an etiology for presentation. Is off Amiodarone for abnormal LFT. Being followed by Nephrology / Pulmonary / Neurology / GI ID. Tele has remained sinus rhythm. Had episode of a-fib with RVR. Was loaded with Digoxin. Dig level was performed at wrong timing (only 5 hours after the last Dig given). Dig toxicity is not considered. Patient is back to normal sinus rhythm. Has good kidney function. Repeat Dig level is acceptable level. s/p ICD implantation by EP. Intubated, later extubated. s/p PEG Syncope V-fib s/p shock Sustained V-tach Paroxysmal A-fib VHD, s/p Mitral ring Systolic heart failure Abnormal LFT, at a point resolved, later appeared again s/p ICD (Biotronik) implantation by EP (Dr Armstrong) s/p PRBC transfusion for significant anemia Hepatic Steatosis Gallstones Failed Swallowing s/p PEG Cardiac suggestion for management: Manage in Tele Follow up electrolytes and kidney function test and correct abnormalities Full anticoagulation (a-fib with high CHADS-Vasc score). s/p ICD implantation. To start Eliquis (after performance of possible PEG tube placement): for now on prophylactic dose of Lovenox Off Amio drip (worsened LFT) On Mexiletine If need for pressure support: use Phenyl Ephrine / vasopressin, keep MAP above 65 (for now off pressure support and tolerating) On Metoprolol to decrease risk of Vtach (as patient has ICD with bradycardia protection: may continue metoprolol in case of bradycardia, but hold: if hypotensive) May consider/add Esmolol for PVC/Vtach (if needed) Does not talk. Alert and oriented to self only. As she has not passed swallowing evaluation: IV Metoprolol if needed (HR above 100) s/p ICD (Biotronik) implantation by EP Eliquis: 2.5 mg BID: when she can swallow and after any predicted procedure completed s/p PRBC transfusion for anemia Failed swallowing evaluation for now Cardiac arenas, patient is moderate risk patient for moderate risk PEG placement. Avoid Hypotension. Pulmonary Follow up GI follow up for repeated failed swallowing evaluation Provide previous medical records from reaching out to previous hospitals in [facility]... Further evaluation and management depends on the above and clinical course. A total of 55 minutes was spent reviewing the patient record, examining the patient, making a diagnostic and therapeutic plan, discussing this plan with medical personnel, following up on diagnostic studies and following the patient for clinical stability excluding any and all procedures. At least 50% of this time was spent in direct, [id number] contact. Thank you for allowing me to participate in this patient's care. Further recommendations will depend on patient's clinical course. Please do not hesitate to contact me if you have any questions or concerns. This medical document was created using electronic medical record system with [employer] computerized dictation system. Although this document has been carefully reviewed, there may still be some phonetic and typographical errors. These areas are purely typographical due to the imperfection of the software programs, and do not reflect any compromise in the patient's medical care. Dietary Evaluation Review Comments: 1) TF Jevity 1.2Cal @ 55 ml/hr. x 24hr along with Pro-stat 1 pk daily. Start @ 20ml/hr, increase 10ml/hr Q4H until goal is reached. TF @ goal volume provides 1684 kcal (100% energy needs), 88 gm protein (100% protein needs), 1065 ml free water. 2) Water flush 100ml Q4H if allowed, adjust PRN 3) Advance to cardiac diet as medically feasible 4) Monitor NPO status, lab values, wt trend, I/O Expected Outcomes/Goals: To meet >75% estimated needs within 7 days Lab values to improve Fu 2-3 days Plan discussed with: Patient, Other (nurse) CORDELL VERA MD Nov 13, 2024 08:25
[2024-11-13 11:25] LABS: Hematocrit 30.4 % (36.0-46.0); Hemoglobin 9.7 g/dL (12.2-16.2); Mean Corpuscular Hemoglobin 30.0 pg (28.0-32.0); Mean Corpuscular Volume 94.0 fL (80.0-100.0); Nucleated Red Blood Cells % 0.2 %
--- NOTE | 2024-11-13 12:58 | DVHPN2 ---
Progress Note - Dictate Date Seen: Nov 13, 2024 Has the PT tested + for MRSA If YES, has PT been informed?: No Medical Necessity Reason Pt with a Central, PICC or Fol: No The following are medically ne: PICC Line, Cutler Catheter Reason for cutler catheter: Strict I&O vital signs Vital Sign Date Time Temp Pulse Resp B/P (MAP) Pulse Ox O2 Delivery O2 Flow Rate FiO2 11/13/24 09:16 67 121/73 11/13/24 09:00 97.4 20 99 97.4 11/13/24 08:00 Nasal Cannula* 2 28 Total Intake and Output 11/12/24 11/12/24 11/13/24 15:00 23:00 07:00 Intake Total 0 ml 90 ml Output Total 500 ml 300 ml Balance -500 ml -210 ml medications Current Medications Medications Dose Ordered Sig/Liliam Route Start Time Stop Time Status Last Admin Dose Admin Amino Acids 0 ml @ 0 mls/hr PER PHARMACY IV 10/15/24 18:45 Cancel Dextrose 50 ml UD IV 10/16/24 09:30 Cancel Polyethylene Glycol 17 gm DAILYPRN PRN GT 10/17/24 16:45 10/19/24 05:54 17 GM Vancomycin HCl 0 ml @ 0 mls/hr UD IV 10/19/24 14:00 Cancel Metoclopramide HCl 5 mg BID IV 10/25/24 10:00 Hold 10/25/24 21:32 5 MG Sodium Chloride 10 ml QSHIFT@10,22 IV 10/26/24 22:00 11/13/24 09:17 10 ML Metoprolol Tartrate 2.5 mg Q6HPRN PRN IV 10/31/24 09:15 Amino Acids 0 ml @ 0 mls/hr PER PHARMACY IV 11/04/24 22:00 Cancel Amino Acid Protein 30 ml DAILY PO 11/04/24 10:00 11/12/24 16:09 30 ML Hydrocortisone Sodium Succinate 50 mg BID IV 11/06/24 22:00 11/13/24 09:15 50 MG Pantoprazole Sodium 40 mg BID IV 11/09/24 22:00 11/13/24 09:15 40 MG Morphine Sulfate 4 mg Q4HPRN PRN IV 11/10/24 13:00 Acetaminophen/ Hydrocodone Bitart 1 tab Q4HPRN PRN GT 11/10/24 15:30 11/11/24 19:13 1 TAB Metoprolol Tartrate 12.5 mg BID GT 11/10/24 22:00 11/13/24 09:16 12.5 MG Mexiletine HCl 150 mg TID GT 11/10/24 22:00 11/13/24 06:27 150 MG Fat Emulsion Intravenous 150 ml/Sodium Acetate 20 meq/Potassium Acetate 30 meq/ Potassium Phosphate 19.8 meq/Calcium Gluconate 2.3 meq/ Magnesium Sulfate 4 meq/ Multivitamins 10 ml/Chromium/ Copper/Manganese/ Zinc 1 ml/Amino Acids/Dextrose/ Purified Water 1,596.4462 ml @ 66 mls/hr [id number] IV 11/11/24 22:00 11/12/24 21:59 Cancel Apixaban 5 mg BID PO 11/12/24 22:00 11/13/24 09:16 5 MG Enteral Nutritional Formula 1,000 ml 55ML/HR GT 11/13/24 01:45 11/13/24 02:35 1,000 ML laboratory and microbiology Laboratory Tests 11/13/24 10:56 11/11/24 05:43 Test 11/11/24 05:43 Range/Units Serum Glucose 138 H 74-106 mg/dL Assessment/Plan impression s/p cardiac arrest VT CPR <5 min elevated troponin acute resp failure atelectases pt seen and examined events s/p extubation low oxygen requirements on room air no distress s/p pacemaker management plan supplemental oxygen as needed titrate to maintain sats 90% or above incentive spirometry aspiration precautions cont abx monitor cx monitor labs renal function daily abg and CXR dvt proph/on physical therapy awaiting placement f/u cardiology Dietary Evaluation Review Comments: 1) TF Jevity 1.2Cal @ 55 ml/hr. x 24hr along with Pro-stat 1 pk daily. Start @ 20ml/hr, increase 10ml/hr Q4H until goal is reached. TF @ goal volume provides 1684 kcal (100% energy needs), 88 gm protein (100% protein needs), 1065 ml free water. 2) Water flush 100ml Q4H if allowed, adjust PRN 3) Advance to cardiac diet as medically feasible 4) Monitor NPO status, lab values, wt trend, I/O Expected Outcomes/Goals: To meet >75% estimated needs within 7 days Lab values to improve Fu 2-3 days Plan discussed with: Patient BELLO ROTHMAN MD Nov 13, 2024 12:58
--- NOTE | 2024-11-13 13:07 | DVHPN2 ---
Progress Note - Dictate Date Seen: Nov 13, 2024 Has the PT tested + for MRSA If YES, has PT been informed?: No Medical Necessity Reason Pt with a Central, PICC or Fol: No The following are medically ne: PICC Line, Cutler Catheter Reason for cutler catheter: Strict I&O vital signs Vital Sign Date Time Temp Pulse Resp B/P (MAP) Pulse Ox O2 Delivery O2 Flow Rate FiO2 11/13/24 09:16 67 121/73 11/13/24 09:00 97.4 20 99 97.4 11/13/24 08:00 Nasal Cannula* 2 28 Total Intake and Output 11/12/24 11/12/24 11/13/24 14:59 22:59 06:59 Intake Total 0 ml 0 ml Output Total 500 ml 300 ml Balance -500 ml -300 ml medications Current Medications Medications Dose Ordered Sig/Liliam Route Start Time Stop Time Status Last Admin Dose Admin Amino Acids 0 ml @ 0 mls/hr PER PHARMACY IV 10/15/24 18:45 Cancel Dextrose 50 ml UD IV 10/16/24 09:30 Cancel Polyethylene Glycol 17 gm DAILYPRN PRN GT 10/17/24 16:45 10/19/24 05:54 17 GM Vancomycin HCl 0 ml @ 0 mls/hr UD IV 10/19/24 14:00 Cancel Metoclopramide HCl 5 mg BID IV 10/25/24 10:00 Hold 10/25/24 21:32 5 MG Sodium Chloride 10 ml QSHIFT@10,22 IV 10/26/24 22:00 11/13/24 09:17 10 ML Metoprolol Tartrate 2.5 mg Q6HPRN PRN IV 10/31/24 09:15 Amino Acids 0 ml @ 0 mls/hr PER PHARMACY IV 11/04/24 22:00 Cancel Amino Acid Protein 30 ml DAILY PO 11/04/24 10:00 11/12/24 16:09 30 ML Hydrocortisone Sodium Succinate 50 mg BID IV 11/06/24 22:00 11/13/24 09:15 50 MG Pantoprazole Sodium 40 mg BID IV 11/09/24 22:00 11/13/24 09:15 40 MG Morphine Sulfate 4 mg Q4HPRN PRN IV 11/10/24 13:00 Acetaminophen/ Hydrocodone Bitart 1 tab Q4HPRN PRN GT 11/10/24 15:30 11/11/24 19:13 1 TAB Metoprolol Tartrate 12.5 mg BID GT 11/10/24 22:00 11/13/24 09:16 12.5 MG Mexiletine HCl 150 mg TID GT 11/10/24 22:00 11/13/24 06:27 150 MG Fat Emulsion Intravenous 150 ml/Sodium Acetate 20 meq/Potassium Acetate 30 meq/ Potassium Phosphate 19.8 meq/Calcium Gluconate 2.3 meq/ Magnesium Sulfate 4 meq/ Multivitamins 10 ml/Chromium/ Copper/Manganese/ Zinc 1 ml/Amino Acids/Dextrose/ Purified Water 1,596.4462 ml @ 66 mls/hr [id number] IV 11/11/24 22:00 11/12/24 21:59 Cancel Apixaban 5 mg BID PO 11/12/24 22:00 11/13/24 09:16 5 MG Enteral Nutritional Formula 1,000 ml 55ML/HR GT 11/13/24 01:45 11/13/24 02:35 1,000 ML objective General Appearance: no distress HEENT: EOMI, PERRLA, normal external inspect of ears, no icterus, no nasal drainage Neck: no carotid bruit, no jugular venous distention (JVD), no lymphadenopathy Chest: normal thorax Respiratory: Intubated, clear to auscultation, normal air movement Cardiovascular: regular rate and rhythm, no diastolic murmur, no jugular venous distention (JVD), no rub, no systolic murmur Abdominal: soft, no hepatomegaly, no mass, no splenomegaly, no tenderness Genitourinary: grossly normal external Musculoskeletal: no joint tenderness, no swelling Extremities: normal pulses, no calf tenderness, no clubbing, no cyanosis, no edema Skin: no bruising, no jaundice, no rash Neurological: No focal deficit laboratory and microbiology Laboratory Tests 11/13/24 10:56 11/11/24 05:43 Test 11/11/24 05:43 Range/Units Serum Glucose 138 H 74-106 mg/dL Problem List Cardiac Arrest with Ventricular Fibrillation Assessment: Patient experienced cardiac arrest with ventricular fibrillation on 10/07/24, witnessed by family members who initiated CPR. EMS found the patient in ventricular fibrillation and administered shock therapy. Rhythm strip analysis confirmed ventricular fibrillation. Patient required intubation and sedation upon ED arrival. Currently admitted to ICU for close observation. Cardiology has been consulted and plans for AICD placement, likely on Tuesday. Infectious disease clearance has been obtained for the AICD procedure, addressing initial concerns of leukocytosis which is now improving. Status post-cardiac arrest. Plan: - Continue ICU monitoring - Proceed with AICD placement as planned (likely Tuesday), cleared by infectious disease. - Maintain intubation and sedation until AICD placement - Continue Heparin drip for paroxysmal atrial fibrillation - Continue Mexitil - DC amiodarone due to transaminitis - added esmolol drip per Cardiology for AFib and added push doses of digoxin Coronary Artery Disease Assessment: Patient with history of 2-vessel CABG (Coronary Artery Bypass Grafting). Surgical intervention previously performed to address significant coronary artery stenosis. Plan: - Continue medical management - Follow up with cardiology for ongoing coronary artery disease management Acute and Chronic Systolic Heart Failure Assessment: Patient has acute and chronic systolic heart failure with severely reduced left ventricular function. Ejection fraction is estimated at 15-20%. RICHIE findings are consistent with severely reduced left ventricular ejection fraction, previously implanted mitral ring, up to moderate mitral stenosis and regurgitation, and moderate aortic insufficiency. Plan: - Continue cardiology consultation - continue IV diuretics (IV Lasix) - Monitor renal function Acute Hypoxic Respiratory Failure Assessment: Patient is currently intubated due to acute hypoxic respiratory failure. Dr. Downey from pulmonology is managing this aspect of care. Plan: - Maintain current intubation as per pulmonology recommendation - Proceed with CPAP trials when deemed appropriate by pulmonology Transaminitis Assessment: Patient has elevated liver function tests, likely secondary to amiodarone use. Cardiology has discontinued amiodarone in response. Plan: - Monitor liver function tests - Amiodarone discontinued as per cardiology Enterobacter PNA Assessment: Sputum culture positive for Enterobacter. Plan: - Continue treatment with Eratapenem to complete 10 days regimen -Infectious disease consult Hemodynamic Support Assessment: Patient requires vasopressor support for hemodynamic stability. Plan: - Continue vasopressin - Continue neosynephrine Paroxysmal a fib -DC amiodarone -continue with heparin gtt Shock liver GI consult, trend liver enzymes, hepatitis panel was negative. Ultrasound of the liver had no acute findings. Assessment/Plan Subjective: Patient is awake and alert. Objective: Patient is A and O x 4. Patient failed her swallow eval. Most likely related to prolonged intubation from endotracheal tube. Patient had sepsis with Enterobacter pneumonia. Patient was status post cardiac arrest and ventricular arrhythmias status post AICD placement by cardiology. Patient had her PEG tube placed, currently tolerating tube feedings. Wishes Plan: Pending discharge to acute rehab facility. Patient was able to sit on the edge of the bed. Continue PT twice a day. Dietary Evaluation Review Comments: 1) TF Jevity 1.2Cal @ 55 ml/hr. x 24hr along with Pro-stat 1 pk daily. Start @ 20ml/hr, increase 10ml/hr Q4H until goal is reached. TF @ goal volume provides 1684 kcal (100% energy needs), 88 gm protein (100% protein needs), 1065 ml free water. 2) Water flush 100ml Q4H if allowed, adjust PRN 3) Advance to cardiac diet as medically feasible 4) Monitor NPO status, lab values, wt trend, I/O Expected Outcomes/Goals: To meet >75% estimated needs within 7 days Lab values to improve Fu 2-3 days Plan discussed with: Patient, Other BRODIE GARVIN FLAG MAKER Nov 13, 2024 13:07
--- NOTE | 2024-11-13 15:01 | DVHCONRES ---
Family History: Alcoholism Cardiovascular disease G8 MOTHER Allergies: Coded Allergies: NO KNOWN ALLERGIES (Unverified , 10/07/24) Current Medications Current Medications Medications (Trade) Dose Ordered Sig/Liliam Route PRN Reason Start Time Stop Time Status Last Admin Apixaban (Eliquis) 5 mg BID PO 11/12/24 22:00 11/13/24 13:07 DC 11/13/24 09:16 Enteral Nutritional Formula (Jevity 1.2 Ron/ Fiber) 1,000 ml 55ML/HR GT 11/13/24 01:45 11/13/24 02:35 Apixaban (Eliquis) 2.5 mg BID PO 11/13/24 22:00 UNV Vital Signs Vital Signs Date Time Temp Pulse Resp B/P (MAP) Pulse Ox O2 Delivery O2 Flow Rate FiO2 11/13/24 10:16 64 132/77 11/13/24 09:00 97.4 20 99 97.4 11/13/24 08:00 Nasal Cannula* 2 28 Labs/Diagnostic Data Labs Test 11/13/24 10:56 11/13/24 02:30 11/12/24 13:44 11/12/24 11:48 Range/Units White Blood Count 6.7 4.4-10.8 10^3/uL Red Blood Count 3.23 L 4.0-5.20 10^6/uL Hemoglobin 9.7 L 12.2-16.2 g/dL Hematocrit 30.4 L 36.0-46.0 % Mean Corpuscular Volume 94.0 80.0-100.0 fL Mean Corpuscular Hemoglobin 30.0 28.0-32.0 pg Mean Corpuscular Hemoglobin Concent 31.9 L 32.0-36.0 g/dL Red Cell Distribution Width 23.9 H 11.8-14.3 % Platelet Count 79 L 140-450 10^3/uL Mean Platelet Volume 11.1 H 6.9-10.8 fL Neutrophils (%) (Auto) 81.0 H 37.0-80.0 % Lymphocytes (%) (Auto) 12.7 10.0-50.0 % Monocytes (%) (Auto) 6.1 0.0-12.0 % Eosinophils (%) (Auto) 0.1 0.0-7.0 % Basophils (%) (Auto) 0.1 0.0-2.0 % Neutrophils # (Auto) 5.4 1.6-8.6 10 ^3/uL Lymphocytes # (Auto) 0.9 0.4-5.4 10 ^3/uL Monocytes # (Auto) 0.4 0-1.3 10 ^3/uL Eosinophils # (Auto) 0 0-0.8 10 ^3/uL Basophils # (Auto) 0 0-0.2 10 ^3/uL Nucleated Red Blood Cells 0.2 % Stool for White Cells None seen POC Glucose 116 H 70-106 mg/dl Prothrombin Time 11.9 H 9.3-11.8 sec Prothrombin Time INR 1.14 0.9-1.15 Test 11/11/24 05:43 11/09/24 04:52 11/07/24 08:32 11/01/24 04:00 Range/Units Sodium Level 137 136-145 mmol/L Potassium Level 4.4 3.5-5.1 mmol/L Chloride Level 109 H 98-107 mmol/L Carbon Dioxide Level 17 L 20-31 mmol/L Anion Gap 11 5-15 Blood Urea Nitrogen 32 #H 9-23 mg/dL Creatinine 0.48 L 0.550-1.02 mg/dL Glomerular Filtration Rate Calc 112 >90 mL/min BUN/Creatinine Ratio 66.7 H 10.0-20.0 Serum Glucose 138 H 74-106 mg/dL Calcium Level 8.5 L 8.7-10.4 mg/dL Phosphorus Level 3.0 2.4-5.1 mg/dL Magnesium Level 2.0 1.6-2.6 mg/dL Total Bilirubin 1.0 0.2-1.0 mg/dL Aspartate Amino Transferase (AST) 25 13-40 U/L Alanine Aminotransferase (ALT) 38 7-40 U/L Alkaline Phosphatase 94 46-116 U/L Total Protein 5.1 L 5.7-8.2 g/dL Albumin 3.1 L 3.2-4.8 g/dL Platelet Estimate Decreased Activated Partial Thromboplast Time 26.1 24.5-34.5 SEC Triglycerides Level 72 < 150 mg/dL Anisocytosis (manual) Slight Prealbumin 14.6 10.0-40.0 md/dL Test 10/30/24 14:56 10/30/24 10:34 10/30/24 08:42 10/30/24 03:05 Range/Units Anti-Nuclear Antibody Screen Positive H Negative Blood Gas Specimen Type Arterial Blood Gas Sample Site Right radial Blood Gas Patient Temperature 37.0 Arterial Blood Date Drawn [id number] Arterial Blood pH 7.494 H 7.350-7.450 Arterial Blood Partial Pressure CO2 25.6 L 32.0-45.0 mmHg Arterial Blood Partial Pressure O2 137.1 H 83.0-108.0 mmHg Arterial Blood HCO3 19.2 L 21.0-28.0 mmol/L Arterial Blood Oxygen Saturation 98.1 H 94.0-98.0 % Arterial Blood Base Excess -2.9 L -2.0-3.0 mmol/L Arterial Blood Oxyhemoglobin 97.7 94.0-98.0 % Arterial Blood Carboxyhemoglobin 0.3 L 0.5-1.5 % Arterial Blood Methemoglobin 0.1 0.0-1.5 % Trung Test Yes Blood Gas Total Hemoglobin 10.40 L 12.0-16.0 g/dL Blood Gas Modality Vent - cpap FiO2 % 30.0 Blood Gas Pressure Support 8 Blood Gas PEEP or CPAP 5.0 Blood Gas Set Respiration Rate 18.0 Blood Gas Tidal Volume 450.0 Blood Gas Critical Value Read Back Yes Blood Gas Notified Whom veda Bautista md Blood Gas Notified Time [id number] Blood Gas Notified By luz marina Bertrand rrt B-Type Natriuretic Peptide 1073.91 0-100 pg/mL Test 10/29/24 08:23 10/28/24 08:41 10/25/24 02:38 10/24/24 03:43 Range/Units Direct Bilirubin 0.6 H <0.3 mg/dL Blood Gas Spontaneous Rate 24 Differential Total Cells Counted 100.0 100 Neutrophils % (Manual) 83 H 37.0-80.0 Band Neutrophils % (Manual) 0 Lymphocytes % (Manual) 15 10.0-50.0 Monocytes % (Manual) 2 0-12 Eosinophils % (Manual) 0 0-7 Basophils % (Manual) 0 0.0-2.0 Metamyelocytes % (manual) 0 Myelocytes % (Manual) 0 Promyelocytes % (Manual) 0 Blast Cells % (Manual) 0 Reactive Lymphocytes 0 Ferritin 698.0 H 10-291 ng/mL Test 10/21/24 13:10 10/19/24 14:52 10/17/24 02:45 10/16/24 02:40 Range/Units Vancomycin Level Trough 17.1 H 5-10 ug/mL Lactic Acid Level 2.9 *H 0.4-2.0 mmol/L Polychromasia Slight Digoxin Level 0.98 0.8-2 ng/mL Tear Drop Cells Few Test 10/15/24 03:09 10/11/24 03:23 10/09/24 22:25 10/07/24 22:13 Range/Units Poikilocytosis (manual) Slight Hemoglobin A 97.5 96.4-98.8 % Hemoglobin A2 2.5 1.8-3.2 % Hemoglobin F () 0.0 0.0-2.0 % Hemoglobin S 0.0 0.0 % Hemoglobin Electrophoresis Interp Comment . Serum Immunoglobulin G 9811 987-1680 mg/dL Immunoglobulin A 210 87-352 mg/dL Immunoglobulin M 186 26-217 mg/dL Serum Immunofixation Comment . Free [employer] Light Chains, Quant 49.1 H 3.3-19.4 mg/L Free [employer]/Lambda Light Chain Ratio 1.54 0.26-1.65 Hepatitis A IgM Antibody Negative Hepatitis B Surface Antigen Negative Negative Hepatitis B Core IgM Antibody Negative Negative Hepatitis C Antibody Negative Negative Urine Creatinine 31.20 30.0-125.0 mg/dL Urine Protein/Creatinine Ratio 0.72 Urine Sodium 79 40-220 mmol/L Urine Total Protein 22.5 H 1-14 mg/dL Blood Gas Spontaneous Tidal Volume 488 Test 10/07/24 14:09 10/07/24 10:56 10/07/24 06:17 Range/Units Troponin I High Sensitivity 117 *H </=34 ng/L Cholesterol Level 66 < 200 mg/dL LDL Cholesterol 31 < 100 mg/dL HDL Cholesterol 21 L 40-59 mg/dL Urine Color Yellow Yellow Urine Clarity Turbid H Clear Urine pH 6.0 5.0-9.0 Urine Specific [place] 1.033 1.001-1.035 Urine Protein 3+ H Negative Urine Ketones Trace Negative Urine Blood 1+ H Negative /uL Urine Nitrite Negative Negative Urine Bilirubin Negative Negative Urine Urobilinogen 3 H Negative mg/dL Urine Leukocyte Esterase Negative Negative /uL Urine Glucose 1+ H Normal mg/dL Urine Opiates Screen Neg NEGATIVE Urine Fentanyl Screen Neg NEGATIVE Urine Barbiturates Screen Neg NEGATIVE Urine Phencyclidine Screen Neg NEGATIVE Urine Amphetamines Screen Neg NEGATIVE Urine Benzodiazepines Screen Neg NEGATIVE Urine Cocaine Screen Neg NEGATIVE Urine Cannabinoids Screen Neg NEGATIVE Microbiology Date/Time Source Procedure Growth Status 10/20/24 04:00 Sputum Gram Stain - Final Complete 10/20/24 04:00 Respiratory Culture - Final Enterobacter cloacae Yeast, not Ilda albicans Complete 10/20/24 01:03 Urine - [place] Urine Culture - Final Yeast, not Ilda albicans Complete 10/19/24 13:02 Blood Blood Culture - Final NO GROWTH AFTER 5 DAYS OF INCUBATION. Complete 10/07/24 16:50 Nose MRSA Screen - Final Complete ETHAN SWAN RESIDENT Nov 13, 2024 15:01
--- NOTE | 2024-11-13 16:07 | DVHPN2 ---
Progress Note Date Seen: Nov 13, 2024 Resident Creating Document: ETHAN SWAN RESIDENT Has the PT tested + for MRSA If YES, has PT been informed?: No Medical Necessity Reason Pt with a Central, PICC or Fol: No The following are medically ne: PICC Line, Cutler Catheter Reason for cutler catheter: Strict I&O Subjective Review of Systems Patient seen and examined at bedside Denies any nausea or vomiting Last bowel movement was today Increase O2 via NC 2 L Remains AO times 1-2 Total residual today 95 cc Running Jevity at 30 cc/hour via gastrostomy Objective vital signs Vital Sign Date Time Temp Pulse Resp B/P (MAP) Pulse Ox O2 Delivery O2 Flow Rate FiO2 11/13/24 10:16 64 132/77 11/13/24 09:00 97.4 20 99 97.4 11/13/24 08:00 Nasal Cannula* 2 28 Total Intake and Output 11/12/24 11/12/24 11/13/24 15:00 23:00 07:00 Intake Total 0 ml 90 ml Output Total 500 ml 300 ml Balance -500 ml -210 ml medications Current Medications Medications Dose Ordered Sig/Liliam Route Start Time Stop Time Status Last Admin Dose Admin Amino Acids 0 ml @ 0 mls/hr PER PHARMACY IV 10/15/24 18:45 Cancel Dextrose 50 ml UD IV 10/16/24 09:30 Cancel Polyethylene Glycol 17 gm DAILYPRN PRN GT 10/17/24 16:45 10/19/24 05:54 17 GM Vancomycin HCl 0 ml @ 0 mls/hr UD IV 10/19/24 14:00 Cancel Metoclopramide HCl 5 mg BID IV 10/25/24 10:00 Hold 10/25/24 21:32 5 MG Sodium Chloride 10 ml QSHIFT@10,22 IV 10/26/24 22:00 11/13/24 09:17 10 ML Metoprolol Tartrate 2.5 mg Q6HPRN PRN IV 10/31/24 09:15 Amino Acids 0 ml @ 0 mls/hr PER PHARMACY IV 11/04/24 22:00 Cancel Amino Acid Protein 30 ml DAILY PO 11/04/24 10:00 11/12/24 16:09 30 ML Hydrocortisone Sodium Succinate 50 mg BID IV 11/06/24 22:00 11/13/24 09:15 50 MG Pantoprazole Sodium 40 mg BID IV 11/09/24 22:00 11/13/24 09:15 40 MG Morphine Sulfate 4 mg Q4HPRN PRN IV 11/10/24 13:00 Acetaminophen/ Hydrocodone Bitart 1 tab Q4HPRN PRN GT 11/10/24 15:30 11/13/24 13:46 1 TAB Metoprolol Tartrate 12.5 mg BID GT 11/10/24 22:00 11/13/24 09:16 12.5 MG Mexiletine HCl 150 mg TID GT 11/10/24 22:00 11/13/24 13:45 150 MG Fat Emulsion Intravenous 150 ml/Sodium Acetate 20 meq/Potassium Acetate 30 meq/ Potassium Phosphate 19.8 meq/Calcium Gluconate 2.3 meq/ Magnesium Sulfate 4 meq/ Multivitamins 10 ml/Chromium/ Copper/Manganese/ Zinc 1 ml/Amino Acids/Dextrose/ Purified Water 1,596.4462 ml @ 66 mls/hr [id number] IV 11/11/24 22:00 11/12/24 21:59 Cancel Enteral Nutritional Formula 1,000 ml 55ML/HR GT 11/13/24 01:45 11/13/24 02:35 1,000 ML Apixaban 2.5 mg BID PO 11/13/24 22:00 Examination General Appearance: Nonverbal Head Exam: Normal inspection. Constricted equal and reactive pupils Neck Exam: Normal inspection. Non-tender. Normal alignment Pulmonary/Respiratory: Chest non-tender. Trace crackles Abdominal Exam: Normal bowel sounds. Soft. Nontender Skin Exam: Normal inspection. Normal color. Warm. Dry laboratory and microbiology Laboratory Tests 11/13/24 10:56 11/11/24 05:43 Test 11/11/24 05:43 Range/Units Serum Glucose 138 H 74-106 mg/dL Microbiology Date/Time Source Procedure Growth Status 11/12/24 14:10 Nose MRSA Screen - Final Complete 10/20/24 04:00 Sputum Gram Stain - Final Complete 10/20/24 04:00 Respiratory Culture - Final Enterobacter cloacae Yeast, not Ilda albicans Complete 10/20/24 01:03 Urine - [place] Urine Culture - Final Yeast, not Ilda albicans Complete 10/19/24 13:02 Blood Blood Culture - Final NO GROWTH AFTER 5 DAYS OF INCUBATION. Complete Labs and/or images reviewed: Labs reviewed by me, Image(s) reviewed by me Problem List/Assessment/Plan Problem List/Assessment/Plan Questionable acute cholecystitis Ventricular fibrillation S/p cardiopulmonary arrest with shock Heart failure with reduced ejection fraction 15-20% Metabolic versus hypoxic encephalopathy Acute hepatocellular injury likely shock liver Cholelithiasis without acute inflammation Nonalcoholic fatty liver disease with steatohepatitis Community-acquired pneumonia growing Enterobacter Plan: Tapered hydrocortisone to q.12 hours on 11/06/2024 Tapered hydrocortisone to once daily on 11/13/2024 Pending repeat swallow evaluation PEG tube placement on Tuesday Liver function tests downtrending appropriately Keep PT/INR therapeutic Hemoglobin stable, transfuse if HB 7 or less Continue tube feedings as patient failed swallow eval Decreased metoclopramide to 5 mg IV b.i.d. JAIDEN positive, outpatient follow up with GI recommended for further workup Thank you so much for the opportunity to consult on your patient. GI team will follow the patient. In case of any questions or concerns please feel free to reach out. Plan discussed with Dr. Anglin Plan discussed with: Other (RN) Dietary Evaluation Review Comments: 1) TF Jevity 1.2Cal @ 55 ml/hr. x 24hr along with Pro-stat 1 pk daily. Start @ 20ml/hr, increase 10ml/hr Q4H until goal is reached. TF @ goal volume provides 1684 kcal (100% energy needs), 88 gm protein (100% protein needs), 1065 ml free water. 2) Water flush 100ml Q4H if allowed, adjust PRN 3) Advance to cardiac diet as medically feasible 4) Monitor NPO status, lab values, wt trend, I/O Expected Outcomes/Goals: To meet >75% estimated needs within 7 days Lab values to improve Fu 2-3 days ETHAN SWAN RESIDENT Nov 13, 2024 16:07
[2024-11-13] MEDS: APIXABAN 2.5 MG TAB PO SCH (21:42)
[2024-11-14] VITALS (100 sets, daily range): BP systolic 83–142; BP diastolic 39–89; PULSE 55–101; RESP 17–61; TEMP 97.2–100.4; O2SAT 83–100
[2024-11-14] MEDS: MORPHINE SULFATE 4 MG/ML SYR/VIAL IV PRN (01:15)
[2024-11-14 02:34] LABS: Base Excess -20.4 mmol/L (-2.0-3.0)
--- NOTE | 2024-11-14 02:47 | DVH ---
CHEST RADIOGRAPH Indication: SOB Technique: Single frontal view of the chest was obtained COMPARISON: XY CHEST XRAY 1 VIEW on DOS: 11/05/24, XY CHEST XRAY 1 VIEW on DOS: 11/01/24, XY CHEST PORTAB LE on DOS: 10/30/24, XY CHEST PORTABLE on DOS: 10/29/24, XY CHEST PORTABLE on DOS: 10/28/24 FINDINGS: Lines and Tubes: None. Left anterior chest wall cardiac pacing device. Lungs: Extensive multifocal bilateral pulmonary airspace disease in a predominantly perihilar and bib asilar distribution with consolidative features. Pleura: No effusion. No pneumothorax. Cardiomediastinal contours: Poorly evaluated secondary to extensive bilateral infiltrate. Bones: Unremarkable IMPRESSION: 1. Extensive multifocal bilateral pulmonary airspace disease in a predominantly perihilar and bibasil ar distribution with consolidative features.
[2024-11-14] MEDS: SODIUM BICARB 8.4% 50Meq/50ml SYR Vial IV ONE ×2 (02:51→22:05)
[2024-11-14] MEDS: SODIUM BICARB 8.4% 50Meq/50ml SYR INJ ONE (02:51)
[2024-11-14 03:18] LABS: Albumin 3.8 g/dL (3.2-4.8); Alkaline Phosphatase 259 U/L (46-116); Anion Gap 19 (5-15); BUN/Creatinine Ratio 51.3 (10.0-20.0); Bilirubin, Total 2.5 mg/dL (0.2-1.0); Blood Urea Nitrogen 39 mg/dL (9-23); Calcium 8.7 mg/dL (8.7-10.4); Carbon Dioxide 14 mmol/L (20-31); Chloride 106 mmol/L (98-107); Glucose 74 mg/dL (74-106); Sodium 139 mmol/L (136-145); Total Protein 6.5 g/dL (5.7-8.2)
[2024-11-14] MEDS: DEXTROSE 50% SYRINGE 50 ML IV ONE (03:19)
[2024-11-14] MEDS: ETOMIDATE (2MG/ML) 20ML VIAL IV ONE (03:19)
[2024-11-14] MEDS: SUCCINYLCHOLINE CHLORIDE 20 MG/ML 10ML VIAL IV ONE (03:19)
[2024-11-14 03:22] LABS: Potassium 6.1 mmol/L (3.5-5.1)
[2024-11-14] MEDS: NOREPINEPHRINE 8 MG/250ML KIT 250 ML IV ONE (03:22)
[2024-11-14] MEDS: MIDAZOLAM DRIP 50 mg/50mL 50 ML IV ONE (03:22)
[2024-11-14] MEDS: DEXTROSE (50%) 50ML SYRG IV ONE ×2 (03:30→06:45)
--- NOTE | 2024-11-14 04:02 | DVH ---
CHEST RADIOGRAPH Indication: intubation Technique: Single frontal view of the chest was obtained COMPARISON: XY CHEST PORTABLE on DOS: 11/14/24, XY CHEST XRAY 1 VIEW on DOS: 11/05/24, XY CHEST XRAY 1 V IEW on DOS: 11/01/24, XY CHEST PORTABLE on DOS: 10/30/24, XY CHEST PORTABLE on DOS: 10/29/24 FINDINGS: Lines and Tubes: Status post interval intubation. Endotracheal tube tip projects approximately 2.4 c m above the level of the tyler. Left anterior chest wall cardiac pacing device. Lungs: Grossly Stable appearing moderate patchy multifocal bilateral pulmonary airspace disease with consolidative features. Suspected small left pleural effusion. No pneumothorax. Cardiomediastinal contours: Cardiomegaly. Bones: Unremarkable IMPRESSION: 1. Status post interval intubation. Endotracheal tube tip projects approximately 2.4 cm above the le letha of the tyler. 2. Grossly stable appearing moderate patchy multifocal bilateral pulmonary airspace disease with cons olidative features. 3. Cardiomegaly.
[2024-11-14 04:14] LABS: Alanine Aminotransferase 2337 U/L (7-40)
[2024-11-14] MEDS: MIDAZOLAM DRIP 50 mg/50mL 50 ML IV SCH (04:15)
[2024-11-14] MEDS: NOREPINEPHRINE 8 MG/250ML KIT 250 ML IV SCH (04:15)
[2024-11-14 04:34] LABS: Hematocrit 35.8 % (36.0-46.0); Hemoglobin 10.5 g/dL (12.2-16.2); Mean Corpuscular Hemoglobin 30.5 pg (28.0-32.0); Mean Corpuscular Volume 104.1 fL (80.0-100.0)
[2024-11-14 04:39] LABS: Base Excess -12.4 mmol/L (-2.0-3.0)
[2024-11-14 05:53] LABS: Macrocytosis Slight; Total Cells Counted 100.0 (100)
[2024-11-14 05:54] LABS: Anisocytosis Slight
--- NOTE | 2024-11-14 06:38 | RESUS ---
CODE ASSIST ASSESSSMENT Initial Information Code Assist Date: Nov 14, 2024 Code Assist Time: 03:09 Location of Arrest: [facility] Room [facility] B Provider Name VIRGIE Time Notified: 02:37 Time PMD returned call: 02:37 Crash Cart Opened and Supplies: No Situation Staff concerned/worried, speci: SaO2 <90, Change LOC, Failure to respond to Tx Situation comment: Patient declined in orientation a/ox1 only responds to name, patient very lethargy, House sup, Floor charge, RT and HOT ROOM ATTENDANT Tonio at bedside, updated on patient declining after having high RR in the 40s, and saturating at 88% on 15L of rebreather mask, HOT ROOM ATTENDANT Cloud intubated patient, new orders received. Patient BP 88/47 started Levophed BS- 55, D50% administered by Khalif , WINDOW/DISTRIBUTION CLERK. Background Background: 54-year-old female, s/p witnessed cardiac arrest with long stay in ICU, pt was extubated on 10/30 and moved to telemetry. Assessment Temperature (Fahrenheit): 99.5 Blood Pressure Systolic: 113 Blood Pressure Diastolic: 56 Respiratory Rate: 24 O2 Sat by Pulse Oximetry: 95 Assessment comment: PT LETHARGIC MOVES TO PAINFUL STIMULI Recommendations/Interventions Procedures: Accu check, CMP, CBC, Troponin, Cardiac Monitoring, Intubated Outcome Outcome: Transfer to ICU Team Members Team Members TONIO WELCH, COLE RN HS, KHALIF RN, LORRAINE GAMING TABLE OPERATOR, AMADOR GAMING TABLE OPERATOR, BOBBY RN, MERNA RN, SABRINA RT, ALEXEI RT, BLANK RT COLE LOPEZ Nov 14, 2024 06:38
[2024-11-14] MEDS: ALBUTEROL SULF 2.5 MG/0.5ML(0.5%) NEB SOLN NEB ONE (06:43)
[2024-11-14] MEDS: SODIUM BICARB 8.4% 50Meq/50ml SYR INJ IV ONE (06:45)
[2024-11-14] MEDS: FUROSEMIDE 40 MG/4 ML VIAL IV ONE (06:45)
[2024-11-14] MEDS: CALCIUM GLUC 1,000mg/50ml-NS 50 ML IV ONE (06:46)
[2024-11-14] MEDS: InsuLIN REG 1unit/0.01ml Soln (100units/ml) IV ONE (06:49)
[2024-11-14] MEDS: SODIUM CHLORIDE 0.9% 1,000 ML IV SCH (06:50)
[2024-11-14] MEDS: HYDROCORTISONE SOD SUCC 100 MG/2ML INJ VIAL IV SCH (09:14)
[2024-11-14] MEDS: CEFEPIME 1GM/50ML 50 ML IV ONE (09:15)
--- NOTE | 2024-11-14 09:42 | DVHPN2 ---
Progress Note - Dictate Date Seen: Nov 14, 2024 Has the PT tested + for MRSA If YES, has PT been informed?: No Medical Necessity Reason Pt with a Central, PICC or Fol: No The following are medically ne: PICC Line, Cutler Catheter Reason for cutler catheter: Strict I&O vital signs Vital Sign Date Time Temp Pulse Resp B/P (MAP) Pulse Ox O2 Delivery O2 Flow Rate FiO2 11/14/24 09:13 91 122/61 11/14/24 08:58 23 97 40 11/14/24 06:48 99.1 210.4 11/14/24 06:02 Mechanical Ventilator+ 11/13/24 20:00 2 Total Intake and Output 11/13/24 11/13/24 11/14/24 15:00 23:00 07:00 Intake Total 160 ml 160 ml 22.874 ml Output Total 230 ml 150 ml Balance 160 ml -70 ml -127.126 ml medications Current Medications Medications Dose Ordered Sig/Liliam Route Start Time Stop Time Status Last Admin Dose Admin Amino Acids 0 ml @ 0 mls/hr PER PHARMACY IV 10/15/24 18:45 Cancel Dextrose 50 ml UD IV 10/16/24 09:30 Cancel Vancomycin HCl 0 ml @ 0 mls/hr UD IV 10/19/24 14:00 Cancel Metoprolol Tartrate 2.5 mg Q6HPRN PRN IV 10/31/24 09:15 Amino Acids 0 ml @ 0 mls/hr PER PHARMACY IV 11/04/24 22:00 Cancel Amino Acid Protein 30 ml DAILY PO 11/04/24 10:00 11/14/24 09:19 30 ML Pantoprazole Sodium 40 mg BID IV 11/09/24 22:00 11/14/24 09:12 40 MG Morphine Sulfate 4 mg Q4HPRN PRN IV 11/10/24 13:00 11/14/24 01:15 4 MG Acetaminophen/ Hydrocodone Bitart 1 tab Q4HPRN PRN GT 11/10/24 15:30 11/13/24 13:46 1 TAB Metoprolol Tartrate 12.5 mg BID GT 11/10/24 22:00 11/13/24 21:43 12.5 MG Mexiletine HCl 150 mg TID GT 11/10/24 22:00 11/14/24 09:14 150 MG Fat Emulsion Intravenous 150 ml/Sodium Acetate 20 meq/Potassium Acetate 30 meq/ Potassium Phosphate 19.8 meq/Calcium Gluconate 2.3 meq/ Magnesium Sulfate 4 meq/ Multivitamins 10 ml/Chromium/ Copper/Manganese/ Zinc 1 ml/Amino Acids/Dextrose/ Purified Water 1,596.4462 ml @ 66 mls/hr [id number] IV 11/11/24 22:00 11/12/24 21:59 Cancel Enteral Nutritional Formula 1,000 ml 55ML/HR GT 11/13/24 01:45 11/13/24 02:35 1,000 ML Apixaban 2.5 mg BID PO 11/13/24 22:00 11/14/24 09:14 2.5 MG Hydrocortisone Sodium Succinate 50 mg DAILY IV 11/14/24 10:00 11/14/24 09:14 50 MG Norepinephrine Bitartrate 250 ml @ 3.75 mls/hr Q24H IV 11/14/24 04:15 11/14/24 04:15 3.75 MLS/HR Midazolam HCl 50 ml @ 1 mls/hr Q24H IV 11/14/24 04:15 11/14/24 09:11 4 MLS/HR Sodium Chloride 1,000 ml @ 50 mls/hr Q20H IV 11/14/24 06:45 11/14/24 06:50 50 MLS/HR Cefepime HCl 50 ml @ 12.5 mls/hr Q8HR IV 11/14/24 14:00 laboratory and microbiology Laboratory Tests 11/14/24 03:39 11/14/24 02:30 Test 11/14/24 02:30 Range/Units Serum Glucose 74 74-106 mg/dL Assessment/Plan Had respiratory failure in tele floor, intubated and transferred to ICU. On Levophed. No Arrhythmia identified during this episodes. Patient is a 54-year-old female who was brought to the hospital for witnessed syncope. She is intubated and is being managed in ICU. Information was obtained by reviewing the chart and communicating with patient's son (over the phone). Family recognized witnessed syncope and started CPR and called EMS. Reportedly, EMS found the patient in ventricular fibrillation and shocked the patient and brought the patient to the hospital. Patient was intubated in emergency room and transferred to ICU. Patient was on amiodarone drip. Later the patient had ventricular tachycardia (Systane). High sensitive troponin had been minimally/flatly elevated. Presentation was not in favor of acute coronary syndrome. Cardiology is involved for cardiac aspects of care. Intubated. On Vent. No JVD. Mucosa pale. No carotid bruit. Scattered rhonchi in the lungs is heard. Cardiac: Regular, no thrill. Systolic murmur 2/6 in apex is heard. Abdomen is soft. 3+ edema in extremities. Past medical history as per son: Congenital heart disease, status post bypass WBC: 14.5 - 11.9 - 18.8 - 20.0 - 21.2 - 14.3 - 10.3 - 8.9 - 9.2 - 11.1 - 12.1 - 10.8 - 12.0 - 9.9 - 15.4 - 14.8 - 12.1 - 10.5 - 5.8 - 5.3 - 4.2 - 5.8 - 4.1 - 7.0 - 9.3 - 8.3 - 11.5 - 8.4 - 8.4 - 5.4 - 5.7 - 8.4 - 7.4 - 6.2 - 6.7 - 13.9 Hemoglobin: 10.1 - 9.6 - 9.2 - 8.8 - 8.7 - 8.0 - 8.3 - 8.5 - 7.8 - 10.2 - 10.7 - 9.9 - 9.7 - 9.3 - 9.3 - 8.6 - 8.1 - 7.4 - 7.5 - 7.4 - 7.5 - 7.2 - 7.7 - 7.0 - (post PRBC transfusion) 10.4 - 10 - 9.5 - 10.0 - 9.2 - 9.8 -9.6 - 9.7 - 10.2 - 10.6 - 9.7 - 9.7 - 10.5 Creatinine: 0.95 - 0.93 - 0.87 - 0.83 - 0.83 - 0.76 - 0.68 - 0.72 - 0.79 - 0.76 - 0.80 - 0.84 - 0.61 - 0.65 - 0.74 - 0.64 - 0.73 - 0.82 - 0.88 - 1.03 - 0.99 - 0.85 - 0.87 - 0.79 - 1.12 - 1.15 - 1.04 - 0.96 - 0.94 - 0.93 - 0.78 - 0.71 - 0.68 - 0.61 - 0.59 - 0.49 - 0.39 - 0.54 - 0.48 - 0.76 Potassium: 3.4 - 4.0 - 4.6 - 3.5 - 3.3 - 4.1 - 3.7 - 3.2 - 3.7 - 4.0 - 3.2 - 3.4 - 3.9 - 4.2 - 3.3 - 3.8 - 3.6 - 3.4 - 4.2 - 3.8 - 4.5 - 4.1 - 3.5 - 4.2 - 3.3 - 2.6 - 3.5 - 3.8 - 2.4 - 2.9 - 4.6 - 2.8 - 4.8 - 4.9 - 3.4 - 3.1 - 3.7 - 4.4 - 3.7 - 3.7 - 3.1 - 3.0 - 3.8 - 4.4 - 3.8 - 4.1 - 4.3 - 3.9 - 4.4 - 6.1 Magnesium: 2.0 - 1.6 - 2.0 - 3.0 - 1.5 - 1.9 - 2.1 - 1.8 - 2.0 - 1.9 - 1.9 - 2.6 - 2.0 - 1.8 - 1.6 - 2.0 - 2.2 - 1.9 - 2.3 - 2.2 - 2.2 - 2.1 - 2.1 - 1.9 2.7 - 2.6 - 2.3 - 2.4 - 2.5 - 2.3 - 2.5 - 2.3 - 2.3 - 2.4 - 2.1 - 1.9 - 2.2 - 2.1 - 2.0 Troponin (high sensitive): 141 - 138 - 117 BNP: 457.16 - 1073.91 - 928.14 AST/ALT: 32/11 - 19/13 - 538/168 - 293/152 - 131/130 - 78/94 - 68/74 - 48/57 - 27/38 - 15/23 - 20/18 - 23/17 - 29/16 - 27/13 - 34/17 - 73/49 - 41/43 - 30/47 - 30/42 - 29/42 - 17/27 - 160/87 - 900/478 - 986/571 - 382/436 - 110/244 - 42/170 - 22/113 - 16/77 - 15/59 - 19/50 - 20/41 - 16/32 - 17/30 - 14/25 - 25/38 - - /2337 Digoxin level: 2.83 - 1.25 - 0.98 UDS: non-revealing Chest x-ray revealed: Lines and Tubes: Endotracheal tube tip projects approximately 1.4 cm above the level of the tyler. Enteric catheter courses below the lateral of the diaphragm and terminates beyond the inferior margin of the image. Right internal jugular central venous catheter terminates within the distal superior vena cava. Lungs: Moderate diffuse increased prominence of the pulmonary vasculature without evidence of focal consolidation. Pleura: No effusion. No pneumothorax. Cardiomediastinal contours: Cardiomegaly. Bones: Unremarkable IMPRESSION: 1. Cardiomegaly and diffuse increased prominence of the pulmonary vasculature. 2. Lines and tubes as above. Repeat chest x-ray revealed: IMPRESSION: 1. Endotracheal tube tip 1.6 cm above the tyler; consider 2 cm retraction 2. Mild pulmonary vascular congestion. Moderate cardiomegaly. Repeat chest xry revealed: IMPRESSION: Endotracheal tube tip 1.6 cm above the tyler; consider 2 cm retraction Mild pulmonary vascular congestion. Moderate cardiomegaly. Repeat chest xry revealed: IMPRESSION: 1. Stable cardiomegaly, small left pleural effusion and mild diffuse increased prominence of the pulmonary vasculature. 2. Repositioned endotracheal tube as above. Remaining lines and tubes unchanged. Repeat chest xry revealed: IMPRESSION: 1. Cardiomegaly, stable diffuse increased prominence of the pulmonary vasculature and small bilateral pleural effusions. 2. Slight interval advancement of endotracheal tube as above. Remaining lines and tubes unchanged. Repeat chest xry revealed: IMPRESSION: 1. Slight interval decrease in diffuse increased prominence of the pulmonary vasculature. 2. Stable cardiomegaly and small left pleural effusion. 3. Lines and tubes unchanged. Repeat chest xry revealed: IMPRESSION: 1. Cardiomegaly and small left pleural effusion. 2. Lines and tubes unchanged. Repeat chest xry revealed: IMPRESSION: Stable lines and tubes. Similar lung aeration. Repeat chest xry revealed: IMPRESSION: Cardiomegaly and small left pleural effusion. Lines and tubes unchanged. Repeat chest xry revealed: IMPRESSION: Placement of a cardiac pacer, no pneumothorax is seen. Stable lines and tubes. Repeat chest xry revealed: IMPRESSION: 1. Worsening mixed opacities in the right lower lung. No other significant change from the previous study. Stable support devices. Repeat chest xry revealed: Heart is prominent in size with postsurgical changes, median sternotomy wires, and a single lead left cardiac defibrillator. Support lines and tubes appear unchanged in satisfactory in position. No sizable effusion or pneumothorax. Mild pulmonary vascular congestion. No significant interval change. Repeat chest xry revealed: IMPRESSION: 1. No significant change from the previous study. Stable support devices. Similar findings of heart failure including left pleural effusion. Repeat chest xry revealed: IMPRESSION: 1. No significant change from the previous study. Stable support devices. Similar findings of heart failure including trace left pleural effusion. Repeat chest xry revealed: Lines and Tubes: Unchanged. Left anterior chest wall cardiac pacing device. Lungs: Clear Pleura: No effusion. No pneumothorax. Cardiomediastinal contours: Cardiomegaly. Bones: Unremarkable IMPRESSION: 1. Cardiomegaly. 2. Lines and tubes unchanged. Repeat chest xry revealed: IMPRESSION: Lines and tubes in satisfactory position. No significant interval change. Repeat chest xry revealed: Lines and Tubes: ET tube and NG tube removed. Lungs: Congestion Pleura: No effusion. No pneumothorax. Cardiomediastinal contours: Cardiomegaly Bones: Unremarkable IMPRESSION: 1. Cardiomegaly with CHF. Repeat chest xry revealed: IMPRESSION: 1. Cardiomegaly. 2. Patchy bilateral airspace disease. Repeat chest xry revealed: FINDINGS: Lines and Tubes: None. Left anterior chest wall cardiac pacing device. Lungs: Extensive multifocal bilateral pulmonary airspace disease in a predominantly perihilar and bibasilar distribution with consolidative features. Pleura: No effusion. No pneumothorax. Cardiomediastinal contours: Poorly evaluated secondary to extensive bilateral infiltrate. Bones: Unremarkable IMPRESSION: 1. Extensive multifocal bilateral pulmonary airspace disease in a predominantly perihilar and bibasilar distribution with consolidative features. Repeat chest xry revealed: IMPRESSION: 1. Status post interval intubation. Endotracheal tube tip projects approximately 2.4 cm above the level of the tyler. 2. Grossly stable appearing moderate patchy multifocal bilateral pulmonary airspace disease with consolidative features. 3. Cardiomegaly. Liver Ultrasound revealed: Hepatic steatosis. Trace right pleural effusion. Trace ascites Gallstones Bladder ultrasound revealed: IMPRESSION: 1. Cutler catheter in the bladder in the bladder is decompressed. Repeat Bladder Ultrasound revealed: Urinary bladder is unremarkable with prevoid volume of 29 mL. Urinary bladder wall measures 1.5 mm. Cutler catheter is noted. KUB revealed: IMPRESSION: Nonobstructive bowel gas pattern. Nasogastric tube tip in the stomach. Large stool burden. Repeat KUB revealed: Right lower extremity PICC line with tip projecting over the expected region of the intrahepatic IVC. Nasogastric tube projecting towards the distal stomach. Nonspecific bowel gas pattern. Cardiomegaly and left basilar airspace opacities, incompletely characterized. Atherosclerotic calcification disease. Repeat KUB revealed: IMPRESSION: 1. Nonspecific nonobstructive bowel gas pattern. 2. Gastrostomy tube projects over the midportion of the left hemiabdomen. 3. Right femoral approach central venous catheter as described above. Left upper ext arterial duplex: IMPRESSION: No hemodynamically significant stenosis based on peak systolic velocity criteria. Left lower ext arterial duplex: IMPRESSION: There is no evidence for peripheral vascular insufficiency in the left lower extremity. No significant focal stenosis is identified. Liver Ultrasound revealed: Hepatic steatosis. Hepatomegaly. Cholelithiasis. CT of the head revealed: IMPRESSION: No acute intracranial abnormality. Repeat CT of head revealed: IMPRESSION: No acute intracranial abnormality. Repeat CT of Head revealed: IMPRESSION: No acute intracranial abnormality. Echocardiogram reported: lvef 15-20% dilated LV severe global dysfunction mild RV dysfunction biatrial enlargement mild moderate MAC, moderate mitral regurg mild to moderate aortic regug (images of echo reviewed and questioned presence of mitral ring and also some component (moderate of Mitral stenosis) EKG revealed sinus rhythm Telemetry revealed occasions of atrial fibrillation. There was occasional sustained ventricular tachycardia. EMS tele monitor revealed ventricular fibrillation for which the patient was shocked. Has remained sinus rhythm. Later with A-fib with MVR LHC revealed: Patent RICHMOND to LAD; Patent SVG to obtuse marginal; LVEF of 20% with increased EDP; Proximal disease in LAD/LCX RICHIE was performed: Consistent with severely reduced LVEF. Consistent with previously implanted Mitral ring, Up to moderate Mitral stenosis/Mitral Regurgitation and also Moderate Aortic insufficiency. Patient is a 54-year-old female who presented with witnessed syncope. She was found to have ventricular fibrillation for which was shocked. Later had repeated episode of sustained ventricular tachycardia. Patient has been kept in ICU. Does have baseline history of coronary artery disease for which has had bypass surgery. Left heart catheterization was performed which revealed patent RICH[place]D and patent SVG. ACS is not considered at this point. It is of note that the patient's echocardiogram reveals significantly use systolic function. Valvular heart disease is considered. Findings are in favor of previously implanted mitral ring. By reviewing the echo images, component of up to moderate mitral stenosis could not be ruled out. LHC was performed that ruled out any active specific ischemia as an etiology for presentation. Is off Amiodarone for abnormal LFT. Being followed by Nephrology / Pulmonary / Neurology / GI ID. Tele has remained sinus rhythm. Had episode of a-fib with RVR. Was loaded with Digoxin. Dig level was performed at wrong timing (only 5 hours after the last Dig given). Dig toxicity is not considered. Patient is back to normal sinus rhythm. Has good kidney function. Repeat Dig level is acceptable level. s/p ICD implantation by EP. Intubated, later extubated. s/p PEG. Later had respiratory failure and was taken back to ICU. Imaging question pneumonia (can it be aspiration?). Eventhough repeat BNP has not increased (decreased somehow), patient does have peripheral edema and component of acute on chronic Systolic heart failure could also contribute to respiratory failure. The site of ICD implantation was reviewed by EP (Dr Armstrong on 05/13/2024): healing well (personal communication). Syncope V-fib s/p shock Sustained V-tach Paroxysmal A-fib VHD, s/p Mitral ring Systolic heart failure Abnormal LFT, at a point resolved, later appeared again s/p ICD (Biotronik) implantation by EP (Dr Armstrong) s/p PRBC transfusion for significant anemia Hepatic Steatosis Gallstones Failed Swallowing s/p PEG Acute respiratory failure Acute on chronic systolic heart failure Cardiac suggestion for management: Manage in ICU IV diuresis Follow up electrolytes and kidney function test and correct abnormalities Full anticoagulation (a-fib with high CHADS-Vasc score). s/p ICD implantation. On Eliquis Off Amio drip (worsened LFT) On Mexiletine On Levo-Phed: keep MAP above 65 (for now off pressure support and tolerating) Was on Metoprolol to decrease risk of Vtach (as patient has ICD with bradycardia protection: may continue metoprolol in case of bradycardia, but hold: if hypotensive). For now will stop/hold Metoprolol May consider/add Esmolol for PVC/Vtach (if needed) s/p ICD (Biotronik) implantation by EP [place]on: 2.5 mg BID: when she can swallow and after any predicted procedure completed s/p PEG Pulmonary Follow up Management of repeat respiratory failure, pneumonia as per primary team/pulmonary Provide previous medical records from reaching out to previous hospitals in [facility]... Further evaluation and management depends on the above and clinical course. A total of 55 minutes was spent reviewing the patient record, examining the patient, making a diagnostic and therapeutic plan, discussing this plan with medical personnel, following up on diagnostic studies and following the patient for clinical stability excluding any and all procedures. At least 50% of this time was spent in direct, [id number] contact. Thank you for allowing me to participate in this patient's care. Further recommendations will depend on patient's clinical course. Please do not hesitate to contact me if you have any questions or concerns. This medical document was created using electronic medical record system with [employer] computerized dictation system. Although this document has been carefully reviewed, there may still be some phonetic and typographical errors. These areas are purely typographical due to the imperfection of the software programs, and do not reflect any compromise in the patient's medical care. Dietary Evaluation Review Comments: 1) TF Jevity 1.2Cal @ 55 ml/hr. x 24hr along with Pro-stat 1 pk daily. Start @ 20ml/hr, increase 10ml/hr Q4H until goal is reached. TF @ goal volume provides 1684 kcal (100% energy needs), 88 gm protein (100% protein needs), 1065 ml free water. 2) Water flush 100ml Q4H if allowed, adjust PRN 3) Advance to cardiac diet as medically feasible 4) Monitor NPO status, lab values, wt trend, I/O Expected Outcomes/Goals: To meet >75% estimated needs within 7 days Lab values to improve Fu 2-3 days Plan discussed with: Other (nurse) CORDELL VERA MD Nov 14, 2024 09:42
--- NOTE | 2024-11-14 09:53 | DVHPN2 ---
Progress Note - Dictate Date Seen: Nov 13, 2024 Has the PT tested + for MRSA If YES, has PT been informed?: No Medical Necessity Reason Pt with a Central, PICC or Fol: No The following are medically ne: PICC Line, Cutler Catheter Reason for cutler catheter: Strict I&O Subjective The patient was seen on 11/13/2024 but no dictated in the morning on 11/14/2024 because the system was down Ms. Smith is a 54 years old female who was brought to the [facility] on 10/07/2024 with a chief complaint of cardiopulmonary arrest/status post CPR. I have seen and examined the patient, I have discussed with her sitter and nurse, she is awake, but is only oriented to herself, she can move her arms and legs, with reasonable muscle power, but she needs a lot of support/assistance when eyes reposition her She had PEG insert on 11/09/2024 Blood culture, 10/09/2024: No growth Blood culture, 10/19/2024: UDS, 10/07/2024: Negative Urinalysis, 10/07/2024: Leukocyte esterase: Negative WBC/HB/PLT/MCV, 10/09/2024: 20/8.8/219/94.6, 10/10/2024: 21.2/8.7/232/92.2 PT/INR/PTT, 10/08/2024: 12.4/1.19/72.7, 10/09/2024: 13.1/1.26/68.9, 10/10/2024: 14.4/2/1.38/35.3 CMP, 10/08/2024: Unremarkable Troponin one high sensitivity, 10/07/2024: 141, 138, 117 TBI/AST/ALT/AP, 10/10/2024: 0.5/538/168/144, 10/11/2024: 0.6/293/199/152, 10/14/2024: 0.8/68/74/124 TG/HDL/LDL/HDL, 10/07/24: 71/66/31/21 EKG 10/10/2024: Atrial fibrillation EKG, 10/15/2024: Atrial fibrillation Echocardiogram, 10/07/2024: lvef 15-20% dilated LV severe global dysfunction mild RV dysfunction biatrial enlargement mild moderate MAC, moderate mitral regurg mild to moderate aortic regug RICHIE, 10/08/2024: 1. Left ventricle: Dilated LV was seen. LVEF was 25%. There was diffuse hypokinesis of left ventricle. 2. Right ventricle: RV was mildly dilated. 3. Left atrium: LA enlarged 4. Right atrium: RA was enlarged. 5. Mitral valve: Mitral was thickened with reduced opening. Moderate Mitral regurgitation was seen. Planinomentry of valve (TTE images also obtained) revealed MVA of 2.1 cm. Mean pressure gradient (obtained from limited TTE images) was 5. Images are consistent with previously implanted Ring in Mitral position. Consistent with up to Moderate Mitral stenosis. . There was no vegetation 6. Left atrial appendage: No evidence of thrombus. 7. Aortic valve: Trileaflet valve. No stenosis. Up to moderate Aortic Insufficiency was seen. There was no vegetation 8. Pulmonic valve: Trivial pulmonic insufficiency. No significant stenosis. 9. Tricuspid valve: Mild tricuspid regurgitation. There was no vegetation 10. Interatrial septum: Negative color flow for right to left shunt was observed. Bubble study was performed: negative for shunt 11. Pericardium: No significant effusion. 12. Thoracic aorta: No significant plaquing. Chest x-ray, 10/27/2024: 1. Cardiomegaly, stable diffuse increased prominence of the pulmonary vasculature and small bilateral pleural effusions. 2. Slight interval advancement of endotracheal tube as above. Remaining lines and tubes unchanged. CT head, 10/07/2024: No acute intracranial abnormality General: the patient is well developed and nourished. No acute distress. Intubated CT head, 10/07/2024: No acute intracranial abnormality. CT head, 10/11/2024: No acute intracranial abnormality CT head, 11/01/2024: As above, the other systems are negative vital signs Vital Sign Date Time Temp Pulse Resp B/P (MAP) Pulse Ox O2 Delivery O2 Flow Rate FiO2 11/14/24 09:13 91 122/61 11/14/24 08:58 23 97 40 11/14/24 06:48 99.1 210.4 11/14/24 06:02 Mechanical Ventilator+ 11/13/24 20:00 2 Total Intake and Output 9/11/13/24 11/14/24 15:00 23:00 07:00 Intake Total 160 ml 160 ml 22.874 ml Output Total 230 ml 150 ml Balance 160 ml -70 ml -127.126 ml medications Current Medications Medications Dose Ordered Sig/Liliam Route Start Time Stop Time Status Last Admin Dose Admin Amino Acids 0 ml @ 0 mls/hr PER PHARMACY IV 10/15/24 18:45 Cancel Dextrose 50 ml UD IV 10/16/24 09:30 Cancel Vancomycin HCl 0 ml @ 0 mls/hr UD IV 10/19/24 14:00 Cancel Metoprolol Tartrate 2.5 mg Q6HPRN PRN IV 10/31/24 09:15 Amino Acids 0 ml @ 0 mls/hr PER PHARMACY IV 11/04/24 22:00 Cancel Amino Acid Protein 30 ml DAILY PO 11/04/24 10:00 11/14/24 09:19 30 ML Pantoprazole Sodium 40 mg BID IV 11/09/24 22:00 11/14/24 09:12 40 MG Morphine Sulfate 4 mg Q4HPRN PRN IV 11/10/24 13:00 11/14/24 01:15 4 MG Acetaminophen/ Hydrocodone Bitart 1 tab Q4HPRN PRN GT 11/10/24 15:30 11/13/24 13:46 1 TAB Metoprolol Tartrate 12.5 mg BID GT 11/10/24 22:00 11/13/24 21:43 12.5 MG Mexiletine HCl 150 mg TID GT 11/10/24 22:00 11/14/24 09:14 150 MG Fat Emulsion Intravenous 150 ml/Sodium Acetate 20 meq/Potassium Acetate 30 meq/ Potassium Phosphate 19.8 meq/Calcium Gluconate 2.3 meq/ Magnesium Sulfate 4 meq/ Multivitamins 10 ml/Chromium/ Copper/Manganese/ Zinc 1 ml/Amino Acids/Dextrose/ Purified Water 1,596.4462 ml @ 66 mls/hr [id number] IV 11/11/24 22:00 11/12/24 21:59 Cancel Enteral Nutritional Formula 1,000 ml 55ML/HR GT 11/13/24 01:45 11/13/24 02:35 1,000 ML Apixaban 2.5 mg BID PO 11/13/24 22:00 11/14/24 09:14 2.5 MG Hydrocortisone Sodium Succinate 50 mg DAILY IV 11/14/24 10:00 11/14/24 09:14 50 MG Norepinephrine Bitartrate 250 ml @ 3.75 mls/hr Q24H IV 11/14/24 04:15 11/14/24 04:15 3.75 MLS/HR Midazolam HCl 50 ml @ 1 mls/hr Q24H IV 11/14/24 04:15 11/14/24 09:11 4 MLS/HR Sodium Chloride 1,000 ml @ 50 mls/hr Q20H IV 11/14/24 06:45 11/14/24 06:50 50 MLS/HR Cefepime HCl 50 ml @ 12.5 mls/hr Q8HR IV 11/14/24 14:00 objective The patient is well-nourished and well-developed with no distress. MENTAL STATUS: Subjective CRANIAL NERVES: Pupils are equal, round and reactive. EOMs full and conjugate. Facial sensation intact in all three divisions bilaterally. Mandibular strength intact. Facial muscles symmetrical and strength intact. SENSATION: Okay to pinprick and light touch MOTOR: Normal tone in the upper and lower extremity. Normal muscle bulk. No fasciculations. She move the arms and legs REFLEXES: Deep tendon reflexes are symmetrical. No pathological reflexes. CEREBELLAR/COORDINATION: Deferred GAIT/STATION: deferred. laboratory and microbiology Laboratory Tests 11/14/24 03:39 11/14/24 02:30 Test 11/14/24 02:30 Range/Units Serum Glucose 74 74-106 mg/dL Problem List Cardiopulmonary arrest Status post CPR Metabolic encephalopathy Hypoxic encephalopathy Congestive heart failure Leukocytosis/sepsis/septic shock Respiratory failure Elevated liver function tests AFib S/P pacemaker insertion on 10/17/2024 ? Chronic organic brain syndrome Assessment/Plan Monitoring Supportive treatment EEG Telemetry DVT prophylaxis GI prophylaxis Cardiology on case Pulmonology on case Nephrology on case Need more history This medical document was created using an electronic medical record system with fotopedia dictation system. Although this document has been carefully reviewed, there may still be some phonetic and typographical errors. These areas are purely typographical due to imperfections of the software programs, and do not reflect any compromise in the patient's medical care. Prognosis poor Dietary Evaluation Review Comments: 1) TF Jevity 1.2Cal @ 55 ml/hr. x 24hr along with Pro-stat 1 pk daily. Start @ 20ml/hr, increase 10ml/hr Q4H until goal is reached. TF @ goal volume provides 1684 kcal (100% energy needs), 88 gm protein (100% protein needs), 1065 ml free water. 2) Water flush 100ml Q4H if allowed, adjust PRN 3) Advance to cardiac diet as medically feasible 4) Monitor NPO status, lab values, wt trend, I/O Expected Outcomes/Goals: To meet >75% estimated needs within 7 days Lab values to improve Fu 2-3 days Plan discussed with: Other CAROLINE ROBB MD Nov 14, 2024 09:53
[2024-11-14 10:23] LABS: COVID19 ANTIGEN SOFIA FIA NEGATIVE (NEGATIVE)
--- NOTE | 2024-11-14 11:30 | DVHPN2 ---
Progress Note - Dictate Date Seen: Nov 14, 2024 Has the PT tested + for MRSA If YES, has PT been informed?: No Medical Necessity Reason Pt with a Central, PICC or Fol: No The following are medically ne: PICC Line, Cutler Catheter Reason for cutler catheter: Strict I&O vital signs Vital Sign Date Time Temp Pulse Resp B/P (MAP) Pulse Ox O2 Delivery O2 Flow Rate FiO2 11/14/24 10:34 83/39 11/14/24 10:30 91 23 100 40 11/14/24 06:48 99.1 210.4 11/14/24 06:02 Mechanical Ventilator+ 11/13/24 20:00 2 Total Intake and Output 11/13/24 11/13/24 11/14/24 15:00 23:00 07:00 Intake Total 160 ml 160 ml 22.874 ml Output Total 230 ml 150 ml Balance 160 ml -70 ml -127.126 ml medications Current Medications Medications Dose Ordered Sig/Liliam Route Start Time Stop Time Status Last Admin Dose Admin Amino Acids 0 ml @ 0 mls/hr PER PHARMACY IV 10/15/24 18:45 Cancel Dextrose 50 ml UD IV 10/16/24 09:30 Cancel Vancomycin HCl 0 ml @ 0 mls/hr UD IV 10/19/24 14:00 Cancel Metoprolol Tartrate 2.5 mg Q6HPRN PRN IV 10/31/24 09:15 Amino Acids 0 ml @ 0 mls/hr PER PHARMACY IV 11/04/24 22:00 Cancel Amino Acid Protein 30 ml DAILY PO 11/04/24 10:00 11/14/24 09:19 30 ML Pantoprazole Sodium 40 mg BID IV 11/09/24 22:00 11/14/24 09:12 40 MG Morphine Sulfate 4 mg Q4HPRN PRN IV 11/10/24 13:00 11/14/24 01:15 4 MG Acetaminophen/ Hydrocodone Bitart 1 tab Q4HPRN PRN GT 11/10/24 15:30 11/13/24 13:46 1 TAB Metoprolol Tartrate 12.5 mg BID GT 11/10/24 22:00 11/13/24 21:43 12.5 MG Mexiletine HCl 150 mg TID GT 11/10/24 22:00 11/14/24 09:14 150 MG Fat Emulsion Intravenous 150 ml/Sodium Acetate 20 meq/Potassium Acetate 30 meq/ Potassium Phosphate 19.8 meq/Calcium Gluconate 2.3 meq/ Magnesium Sulfate 4 meq/ Multivitamins 10 ml/Chromium/ Copper/Manganese/ Zinc 1 ml/Amino Acids/Dextrose/ Purified Water 1,596.4462 ml @ 66 mls/hr [id number] IV 11/11/24 22:00 11/12/24 21:59 Cancel Enteral Nutritional Formula 1,000 ml 55ML/HR GT 11/13/24 01:45 11/13/24 02:35 1,000 ML Apixaban 2.5 mg BID PO 11/13/24 22:00 11/14/24 09:14 2.5 MG Hydrocortisone Sodium Succinate 50 mg DAILY IV 11/14/24 10:00 11/14/24 09:14 50 MG Norepinephrine Bitartrate 250 ml @ 3.75 mls/hr Q24H IV 11/14/24 04:15 11/14/24 04:15 3.75 MLS/HR Midazolam HCl 50 ml @ 1 mls/hr Q24H IV 11/14/24 04:15 11/14/24 09:11 4 MLS/HR Sodium Chloride 1,000 ml @ 50 mls/hr Q20H IV 11/14/24 06:45 11/14/24 06:50 50 MLS/HR Cefepime HCl 50 ml @ 12.5 mls/hr Q8HR IV 11/14/24 14:00 objective General Appearance: no distress HEENT: EOMI, PERRLA, normal external inspect of ears, no icterus, no nasal drainage Neck: no carotid bruit, no jugular venous distention (JVD), no lymphadenopathy Chest: normal thorax Respiratory: Intubated, clear to auscultation, normal air movement Cardiovascular: regular rate and rhythm, no diastolic murmur, no jugular venous distention (JVD), no rub, no systolic murmur Abdominal: soft, no hepatomegaly, no mass, no splenomegaly, no tenderness Genitourinary: grossly normal external Musculoskeletal: no joint tenderness, no swelling Extremities: normal pulses, no calf tenderness, no clubbing, no cyanosis, no edema Skin: no bruising, no jaundice, no rash Neurological: No focal deficit laboratory and microbiology Laboratory Tests 11/14/24 03:39 11/14/24 02:30 Test 11/14/24 02:30 Range/Units Serum Glucose 74 74-106 mg/dL Problem List Cardiac Arrest with Ventricular Fibrillation Assessment: Patient experienced cardiac arrest with ventricular fibrillation on 10/07/24, witnessed by family members who initiated CPR. EMS found the patient in ventricular fibrillation and administered shock therapy. Rhythm strip analysis confirmed ventricular fibrillation. Patient required intubation and sedation upon ED arrival. Currently admitted to ICU for close observation. Cardiology has been consulted and plans for AICD placement, likely on Tuesday. Infectious disease clearance has been obtained for the AICD procedure, addressing initial concerns of leukocytosis which is now improving. Status post-cardiac arrest. Plan: - Continue ICU monitoring - Proceed with AICD placement as planned (likely Tuesday), cleared by infectious disease. - Maintain intubation and sedation until AICD placement - Continue Heparin drip for paroxysmal atrial fibrillation - Continue Mexitil - DC amiodarone due to transaminitis - added esmolol drip per Cardiology for AFib and added push doses of digoxin Coronary Artery Disease Assessment: Patient with history of 2-vessel CABG (Coronary Artery Bypass Grafting). Surgical intervention previously performed to address significant coronary artery stenosis. Plan: - Continue medical management - Follow up with cardiology for ongoing coronary artery disease management Acute and Chronic Systolic Heart Failure Assessment: Patient has acute and chronic systolic heart failure with severely reduced left ventricular function. Ejection fraction is estimated at 15-20%. RICHIE findings are consistent with severely reduced left ventricular ejection fraction, previously implanted mitral ring, up to moderate mitral stenosis and regurgitation, and moderate aortic insufficiency. Plan: - Continue cardiology consultation - continue IV diuretics (IV Lasix) - Monitor renal function Acute Hypoxic Respiratory Failure Assessment: Patient is currently intubated due to acute hypoxic respiratory failure. Dr. Downey from pulmonology is managing this aspect of care. Plan: - Maintain current intubation as per pulmonology recommendation - Proceed with CPAP trials when deemed appropriate by pulmonology Transaminitis Assessment: Patient has elevated liver function tests, likely secondary to amiodarone use. Cardiology has discontinued amiodarone in response. Plan: - Monitor liver function tests - Amiodarone discontinued as per cardiology Enterobacter PNA Assessment: Sputum culture positive for Enterobacter. Plan: - Continue treatment with Eratapenem to complete 10 days regimen -Infectious disease consult Hemodynamic Support Assessment: Patient requires vasopressor support for hemodynamic stability. Plan: - Continue vasopressin - Continue neosynephrine Paroxysmal a fib -DC amiodarone -continue with heparin gtt Shock liver GI consult, trend liver enzymes, hepatitis panel was negative. Ultrasound of the liver had no acute findings. Assessment/Plan Subjective: Patient is sedated on the ventilator. Objective: Patient had a rapid response for hypercapnic respiratory failure. Pipe Line Repairer Dr. Downey was consulted and stated that aspiration pneumonia was the most likely cause. A bronchoscopy was performed today. COVID and influenza swabs were negative. Sputum culture and urinalysis were resent to the lab. Potassium was 6.1, and the patient was treated for hyperkalemia. She was initially admitted for cardiac arrest, status post ventricular fibrillation, and status post AICD placement by Cardiology. Liver enzymes are elevated, most likely due to shock liver. Plan: Continue current treatment. Ventilator management per Pulmonary. Monitor on EKG. Continue antibiotics. Monitor daily labs. Dietary Evaluation Review Comments: 1) TF Jevity 1.2Cal @ 55 ml/hr. x 24hr along with Pro-stat 1 pk daily. Start @ 20ml/hr, increase 10ml/hr Q4H until goal is reached. TF @ goal volume provides 1684 kcal (100% energy needs), 88 gm protein (100% protein needs), 1065 ml free water. 2) Water flush 100ml Q4H if allowed, adjust PRN 3) Advance to cardiac diet as medically feasible 4) Monitor NPO status, lab values, wt trend, I/O Expected Outcomes/Goals: To meet >75% estimated needs within 7 days Lab values to improve Fu 2-3 days Plan discussed with: Patient, Other BRODIE GARVIN [employer] SUPERVISOR Nov 14, 2024 11:30
--- NOTE | 2024-11-14 11:59 | DVHPN2 ---
Progress Note - Dictate Date Seen: Nov 14, 2024 Has the PT tested + for MRSA If YES, has PT been informed?: No Medical Necessity Reason Pt with a Central, PICC or Fol: No The following are medically ne: PICC Line, Cutler Catheter Reason for cutler catheter: Strict I&O vital signs Vital Sign Date Time Temp Pulse Resp B/P (MAP) Pulse Ox O2 Delivery O2 Flow Rate FiO2 11/14/24 11:33 97.3 89 24 110/39 (62) 100 207.1 11/14/24 10:30 40 11/14/24 10:00 Mechanical Ventilator+ 11/13/24 20:00 2 Total Intake and Output 11/13/24 11/13/24 11/14/24 15:00 23:00 07:00 Intake Total 160 ml 160 ml 22.874 ml Output Total 230 ml 150 ml Balance 160 ml -70 ml -127.126 ml medications Current Medications Medications Dose Ordered Sig/Liliam Route Start Time Stop Time Status Last Admin Dose Admin Amino Acids 0 ml @ 0 mls/hr PER PHARMACY IV 10/15/24 18:45 Cancel Dextrose 50 ml UD IV 10/16/24 09:30 Cancel Vancomycin HCl 0 ml @ 0 mls/hr UD IV 10/19/24 14:00 Cancel Metoprolol Tartrate 2.5 mg Q6HPRN PRN IV 10/31/24 09:15 Amino Acids 0 ml @ 0 mls/hr PER PHARMACY IV 11/04/24 22:00 Cancel Amino Acid Protein 30 ml DAILY PO 11/04/24 10:00 11/14/24 09:19 30 ML Pantoprazole Sodium 40 mg BID IV 11/09/24 22:00 11/14/24 09:12 40 MG Morphine Sulfate 4 mg Q4HPRN PRN IV 11/10/24 13:00 11/14/24 01:15 4 MG Acetaminophen/ Hydrocodone Bitart 1 tab Q4HPRN PRN GT 11/10/24 15:30 11/13/24 13:46 1 TAB Metoprolol Tartrate 12.5 mg BID GT 11/10/24 22:00 11/13/24 21:43 12.5 MG Mexiletine HCl 150 mg TID GT 11/10/24 22:00 11/14/24 09:14 150 MG Fat Emulsion Intravenous 150 ml/Sodium Acetate 20 meq/Potassium Acetate 30 meq/ Potassium Phosphate 19.8 meq/Calcium Gluconate 2.3 meq/ Magnesium Sulfate 4 meq/ Multivitamins 10 ml/Chromium/ Copper/Manganese/ Zinc 1 ml/Amino Acids/Dextrose/ Purified Water 1,596.4462 ml @ 66 mls/hr [id number] IV 11/11/24 22:00 11/12/24 21:59 Cancel Enteral Nutritional Formula 1,000 ml 55ML/HR GT 11/13/24 01:45 11/13/24 02:35 1,000 ML Apixaban 2.5 mg BID PO 11/13/24 22:00 11/14/24 09:14 2.5 MG Hydrocortisone Sodium Succinate 50 mg DAILY IV 11/14/24 10:00 11/14/24 09:14 50 MG Norepinephrine Bitartrate 250 ml @ 3.75 mls/hr Q24H IV 11/14/24 04:15 11/14/24 04:15 3.75 MLS/HR Midazolam HCl 50 ml @ 1 mls/hr Q24H IV 11/14/24 04:15 11/14/24 09:11 4 MLS/HR Sodium Chloride 1,000 ml @ 50 mls/hr Q20H IV 11/14/24 06:45 11/14/24 06:50 50 MLS/HR Cefepime HCl 50 ml @ 12.5 mls/hr Q8HR IV 11/14/24 14:00 laboratory and microbiology Laboratory Tests 11/14/24 03:39 11/14/24 02:30 Test 11/14/24 02:30 Range/Units Serum Glucose 74 74-106 mg/dL Assessment/Plan impression s/p cardiac arrest VT CPR <5 min elevated troponin acute resp failure atelectases s/p PM pt seen and examined on ICU events pt re-intubated yesterday for increasing dyspnea concern for aspiration CXR: worsening infiltrates pneumonia on the vent ac volume control peep 5 Fi02=40% s/p bronch moderate amount of secretions suctioned sample sent labs and imaging studies reviewed management plan sedation as needed vent support abg and CXR daily re-start abx f up on cx de-escalate as appropriate monitor labs renal function daily abg and CXR dvt proph/on crit care time 35 min Dietary Evaluation Review Comments: 1) TF Jevity 1.2Cal @ 55 ml/hr. x 24hr along with Pro-stat 1 pk daily. Start @ 20ml/hr, increase 10ml/hr Q4H until goal is reached. TF @ goal volume provides 1684 kcal (100% energy needs), 88 gm protein (100% protein needs), 1065 ml free water. 2) Water flush 100ml Q4H if allowed, adjust PRN 3) Advance to cardiac diet as medically feasible 4) Monitor NPO status, lab values, wt trend, I/O Expected Outcomes/Goals: To meet >75% estimated needs within 7 days Lab values to improve Fu 2-3 days Plan discussed with: Other (rn) BELLO ROTHMAN MD Nov 14, 2024 11:59
--- NOTE | 2024-11-14 12:03 | DVHNC2 ---
Procedure - bronchoscopy and bronchial washings indication: pneumonia procedure consent obtained time out per protocol pt placed on Xf32=634% flexible scope passed thruthe ETT tracheo-bronchial tree examined mucosa appeared inflamed there were moderate amounts of non-purulent secretions in the RLL suctioned thoroughly sample obtained for cx no endo-bronchial lesions at the end of procedure scope removed no complications BELLO ROTHMAN MD Nov 14, 2024 12:03
[2024-11-14 12:11] LABS: Chloride 107 mmol/L (98-107); Potassium 4.6 mmol/L (3.5-5.1); Sodium 144 mmol/L (136-145)
[2024-11-14 12:12] LABS: Anion Gap 20 (5-15)
[2024-11-14 12:14] LABS: Calcium 8.4 mg/dL (8.7-10.4); Carbon Dioxide 17 mmol/L (20-31)
[2024-11-14 12:17] LABS: BUN/Creatinine Ratio 46.2 (10.0-20.0)
[2024-11-14 12:19] LABS: Blood Urea Nitrogen 43 mg/dL (9-23); Glucose 116 mg/dL (74-106)
[2024-11-14 13:19] LABS: Magnesium 2.4 mg/dL (1.6-2.6)
[2024-11-14] MEDS: CEFEPIME 1GM/50ML 50 ML IV SCH (14:49)
[2024-11-14] MEDS ORDERED: Nepro With Carb Steady 1 Liter Bottle GT SCH (15:15)
--- NOTE | 2024-11-14 15:33 | DVHPN2 ---
Progress Note Date Seen: Nov 14, 2024 Resident Creating Document: ETHAN SWAN RESIDENT Has the PT tested + for MRSA If YES, has PT been informed?: No Medical Necessity Reason Pt with a Central, PICC or Fol: No The following are medically ne: PICC Line, Cutler Catheter Reason for cutler catheter: Strict I&O Subjective Review of Systems Patient seen and examined at bedside overnight got respiratory distress, intubated and transferred to ICU RR 18, TV 450, FiO2 100, PEEP 5 ov levophed, versed Objective vital signs Vital Sign Date Time Temp Pulse Resp B/P (MAP) Pulse Ox O2 Delivery O2 Flow Rate FiO2 11/14/24 14:49 112/42 11/14/24 14:35 84 19 100 40 11/14/24 11:33 97.3 207.1 11/14/24 10:00 Mechanical Ventilator+ 11/13/24 20:00 2 Total Intake and Output 11/13/24 11/13/24 11/14/24 15:00 23:00 07:00 Intake Total 160 ml 160 ml 22.874 ml Output Total 230 ml 150 ml Balance 160 ml -70 ml -127.126 ml medications Current Medications Medications Dose Ordered Sig/Liliam Route Start Time Stop Time Status Last Admin Dose Admin Amino Acids 0 ml @ 0 mls/hr PER PHARMACY IV 10/15/24 18:45 Cancel Dextrose 50 ml UD IV 10/16/24 09:30 Cancel Vancomycin HCl 0 ml @ 0 mls/hr UD IV 10/19/24 14:00 Cancel Metoprolol Tartrate 2.5 mg Q6HPRN PRN IV 10/31/24 09:15 Amino Acids 0 ml @ 0 mls/hr PER PHARMACY IV 11/04/24 22:00 Cancel Amino Acid Protein 30 ml DAILY PO 11/04/24 10:00 11/14/24 09:19 30 ML Pantoprazole Sodium 40 mg BID IV 11/09/24 22:00 11/14/24 09:12 40 MG Morphine Sulfate 4 mg Q4HPRN PRN IV 11/10/24 13:00 11/14/24 01:15 4 MG Acetaminophen/ Hydrocodone Bitart 1 tab Q4HPRN PRN GT 11/10/24 15:30 11/13/24 13:46 1 TAB Metoprolol Tartrate 12.5 mg BID GT 11/10/24 22:00 11/13/24 21:43 12.5 MG Mexiletine HCl 150 mg TID GT 11/10/24 22:00 11/14/24 09:14 150 MG Fat Emulsion Intravenous 150 ml/Sodium Acetate 20 meq/Potassium Acetate 30 meq/ Potassium Phosphate 19.8 meq/Calcium Gluconate 2.3 meq/ Magnesium Sulfate 4 meq/ Multivitamins 10 ml/Chromium/ Copper/Manganese/ Zinc 1 ml/Amino Acids/Dextrose/ Purified Water 1,596.4462 ml @ 66 mls/hr [id number] IV 11/11/24 22:00 11/12/24 21:59 Cancel Apixaban 2.5 mg BID PO 11/13/24 22:00 11/14/24 09:14 2.5 MG Hydrocortisone Sodium Succinate 50 mg DAILY IV 11/14/24 10:00 11/14/24 09:14 50 MG Norepinephrine Bitartrate 250 ml @ 3.75 mls/hr Q24H IV 11/14/24 04:15 11/14/24 04:15 3.75 MLS/HR Midazolam HCl 50 ml @ 1 mls/hr Q24H IV 11/14/24 04:15 11/14/24 14:49 15 MLS/HR Sodium Chloride 1,000 ml @ 50 mls/hr Q20H IV 11/14/24 06:45 11/14/24 06:50 50 MLS/HR Cefepime HCl 50 ml @ 12.5 mls/hr Q8HR IV 11/14/24 14:00 11/14/24 14:49 12.5 MLS/HR Furosemide 40 mg BIDD IV 11/14/24 18:00 Enteral Nutritional Formula 1,000 ml 10ML/HR GT 11/14/24 15:15 Examination General Appearance: sedated, intubated Head Exam: Normal inspection. Constricted equal and reactive pupils Neck Exam: Normal inspection. Non-tender. Normal alignment Pulmonary/Respiratory: Chest non-tender. Trace crackles Abdominal Exam: Normal bowel sounds. Soft. Nontender Skin Exam: Normal inspection. Normal color. Warm. Dry laboratory and microbiology Laboratory Tests 11/14/24 11:50 11/14/24 03:39 Test 11/14/24 11:50 Range/Units Serum Glucose 116 H 74-106 mg/dL Microbiology Date/Time Source Procedure Growth Status 11/14/24 04:30 Nose MRSA Screen - Final Complete 10/20/24 04:00 Sputum Gram Stain - Final Complete 10/20/24 04:00 Respiratory Culture - Final Enterobacter cloacae Yeast, not Ilda albicans Complete 10/20/24 01:03 Urine - Cutler Port Urine Culture - Final Yeast, not Ilda albicans Complete 10/19/24 13:02 Blood Blood Culture - Final NO GROWTH AFTER 5 DAYS OF INCUBATION. Complete Labs and/or images reviewed: Labs reviewed by me, Image(s) reviewed by me Problem List/Assessment/Plan Problem List/Assessment/Plan Acute hepatocellular injury likely shock liver Ventricular fibrillation S/p cardiopulmonary arrest with shock Heart failure with reduced ejection fraction 15-20% Metabolic versus hypoxic encephalopathy Cholelithiasis without acute inflammation Nonalcoholic fatty liver disease with steatohepatitis Community-acquired pneumonia growing Enterobacter Aspiration pnemonia? sepsis Plan: continue antibiotics, consider anaerobic coverage consider MRCP once stable Tapered hydrocortisone to q.12 hours on 11/06/2024 Tapered hydrocortisone to once daily on 11/13/2024 s/p PEG tube placement monitor LFT's Keep PT/INR therapeutic Hemoglobin stable, transfuse if HB 7 or less Continue tube feedings at 20cc/hr Decreased metoclopramide to 5 mg IV b.i.d. JAIDEN positive, outpatient follow up with GI recommended for further workup Thank you so much for the opportunity to consult on your patient. GI team will follow the patient. In case of any questions or concerns please feel free to reach out. Plan discussed with Dr. Anglin Plan discussed with: Other (CEE shaw covering for [facility]) My Orders My Orders Orders - ETHAN SWAN RESIDENT Procedure Category Date Status Time Hydrocortisone PHA 11/14/24 In Process Succinate Inj 10:00 Dietary Evaluation Review Comments: 1) TF Jevity 1.2Cal @ 55 ml/hr. x 24hr along with Pro-stat 1 pk daily. Start @ 20ml/hr, increase 10ml/hr Q4H until goal is reached. TF @ goal volume provides 1684 kcal (100% energy needs), 88 gm protein (100% protein needs), 1065 ml free water. 2) Water flush 100ml Q4H if allowed, adjust PRN 3) Advance to cardiac diet as medically feasible 4) Monitor NPO status, lab values, wt trend, I/O Expected Outcomes/Goals: To meet >75% estimated needs within 7 days Lab values to improve Fu 2-3 days ETHAN SWAN RESIDENT Nov 14, 2024 15:33
[2024-11-14] MEDS: FUROSEMIDE 40 MG/4 ML VIAL IV SCH (18:02)
--- NOTE | 2024-11-14 19:59 | DVHPN2 ---
Progress Note Date Seen: Nov 14, 2024 Has the PT tested + for MRSA If YES, has PT been informed?: No Medical Necessity Reason Pt with a Central, PICC or Fol: No The following are medically ne: PICC Line, Cutler Catheter Reason for cutler catheter: Strict I&O Subjective Patient reports: Other (Patient is intubated reconsulted for Acute kidney injury) Review of Systems: Deferred Objective vital signs Vital Sign Date Time Temp Pulse Resp B/P (MAP) Pulse Ox O2 Delivery O2 Flow Rate FiO2 11/14/24 18:35 79 20 108/50 (69) 100 40 11/14/24 18:33 98.1 208.6 11/14/24 18:00 Mechanical Ventilator+ 11/13/24 20:00 2 Total Intake and Output 11/13/24 11/13/24 11/14/24 15:00 23:00 07:00 Intake Total 160 ml 160 ml 22.874 ml Output Total 230 ml 150 ml Balance 160 ml -70 ml -127.126 ml medications Current Medications Medications Dose Ordered Sig/Liliam Route Start Time Stop Time Status Last Admin Dose Admin Amino Acids 0 ml @ 0 mls/hr PER PHARMACY IV 10/15/24 18:45 Cancel Dextrose 50 ml UD IV 10/16/24 09:30 Cancel Vancomycin HCl 0 ml @ 0 mls/hr UD IV 10/19/24 14:00 Cancel Metoprolol Tartrate 2.5 mg Q6HPRN PRN IV 10/31/24 09:15 Amino Acids 0 ml @ 0 mls/hr PER PHARMACY IV 11/04/24 22:00 Cancel Amino Acid Protein 30 ml DAILY PO 11/04/24 10:00 11/14/24 09:19 30 ML Pantoprazole Sodium 40 mg BID IV 11/09/24 22:00 11/14/24 09:12 40 MG Morphine Sulfate 4 mg Q4HPRN PRN IV 11/10/24 13:00 11/14/24 01:15 4 MG Acetaminophen/ Hydrocodone Bitart 1 tab Q4HPRN PRN GT 11/10/24 15:30 11/13/24 13:46 1 TAB Mexiletine HCl 150 mg TID GT 11/10/24 22:00 11/14/24 09:14 150 MG Fat Emulsion Intravenous 150 ml/Sodium Acetate 20 meq/Potassium Acetate 30 meq/ Potassium Phosphate 19.8 meq/Calcium Gluconate 2.3 meq/ Magnesium Sulfate 4 meq/ Multivitamins 10 ml/Chromium/ Copper/Manganese/ Zinc 1 ml/Amino Acids/Dextrose/ Purified Water 1,596.4462 ml @ 66 mls/hr [id number] IV 11/11/24 22:00 11/12/24 21:59 Cancel Apixaban 2.5 mg BID PO 11/13/24 22:00 11/14/24 09:14 2.5 MG Hydrocortisone Sodium Succinate 50 mg DAILY IV 11/14/24 10:00 11/14/24 09:14 50 MG Norepinephrine Bitartrate 250 ml @ 3.75 mls/hr Q24H IV 11/14/24 04:15 11/14/24 04:15 3.75 MLS/HR Midazolam HCl 50 ml @ 1 mls/hr Q24H IV 11/14/24 04:15 11/14/24 18:02 15 MLS/HR Cefepime HCl 50 ml @ 12.5 mls/hr Q8HR IV 11/14/24 14:00 11/14/24 14:49 12.5 MLS/HR Furosemide 40 mg BIDD IV 11/14/24 18:00 11/14/24 18:02 40 MG Enteral Nutritional Formula 1,000 ml 10ML/HR GT 11/14/24 15:15 Examination: GENERAL:Abnormal (Icterus) laboratory and microbiology Laboratory Tests 11/14/24 11:50 11/14/24 03:39 Test 11/14/24 11:50 Range/Units Serum Glucose 116 H 74-106 mg/dL Microbiology Date/Time Source Procedure Growth Status 11/14/24 04:30 Nose MRSA Screen - Final Complete 10/20/24 04:00 Sputum Gram Stain - Final Complete 10/20/24 04:00 Respiratory Culture - Final Enterobacter cloacae Yeast, not Ilda albicans Complete 10/20/24 01:03 Urine - Cutler Port Urine Culture - Final Yeast, not Ilda albicans Complete 10/19/24 13:02 Blood Blood Culture - Final NO GROWTH AFTER 5 DAYS OF INCUBATION. Complete Problem List/Assessment/Plan Problem List/Assessment/Plan BARBIE-hemodynamic mediated etiology Metabolic acidosis proteinuria Cardiac arrest status post V-tach chfref ef 15-20 VDRF recs Bicarb IV one amp as ordered She is currently on Lasix IV b.i.d. We will follow renal function closely Reconsulted today by primary team Plan discussed with: Other My Orders My Orders Orders - OLIVIER GOMEZ MD Procedure Category Date Status Time Nutritional PHA 11/14/24 In Process Supplements (Nepro 15:15 Dietary Evaluation Review Comments: 1) TF Jevity 1.2Cal @ 55 ml/hr. x 24hr along with Pro-stat 1 pk daily. Start @ 20ml/hr, increase 10ml/hr Q4H until goal is reached. TF @ goal volume provides 1684 kcal (100% energy needs), 88 gm protein (100% protein needs), 1065 ml free water. 2) Water flush 100ml Q4H if allowed, adjust PRN 3) Advance to cardiac diet as medically feasible 4) Monitor NPO status, lab values, wt trend, I/O Expected Outcomes/Goals: To meet >75% estimated needs within 7 days Lab values to improve Fu 2-3 days OLIVIER GOMEZ MD Nov 14, 2024 19:59
--- NOTE | 2024-11-14 22:24 | DVHPN2 ---
Progress Note - Dictate Date Seen: Nov 14, 2024 Has the PT tested + for MRSA If YES, has PT been informed?: No Medical Necessity Reason Pt with a Central, PICC or Fol: No The following are medically ne: PICC Line, Cutler Catheter Reason for cutler catheter: Strict I&O Subjective Ms. Smith is a 54 years old female who was brought to the [facility] on 10/07/2024 with a chief complaint of cardiopulmonary arrest/status post CPR. 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 She is responsive to light painful stimuli, possibly to light touch as well, but he is nonresponsive to verbal stimuli No spontaneous extremity movement She had PEG insert on 11/09/2024 Versed 50 mg/hour, levo 4 mcg/minute Blood culture, 10/09/2024: No growth Blood culture, 10/19/2024: ABG, 11/04/2024 0220: Metabolic acidosis, 11/04/2024 0427: Metabolic acidosis UDS, 10/07/2024: Negative Urinalysis, 10/07/2024: Leukocyte esterase: Negative WBC/HB/PLT/MCV, 10/09/2024: 20/8.8/219/94.6, 10/10/2024: 21.2/8.7/232/92.2, 11/14/2024: 13.9/10.5/101/I04.1 PT/INR/PTT, 10/08/2024: 12.4/1.19/72.7, 10/09/2024: 13.1/1.26/68.9, 10/10/2024: 14.4/2/1.38/35.3 CMP, 10/08/2024: Unremarkable Troponin one high sensitivity, 10/07/2024: 141, 138, 117 TBI/AST/ALT/AP, 10/10/2024: 0.5/538/168/144, 10/11/2024: 0.6/293/199/152, 10/14/2024: 0.8/68/74/124 TG/HDL/LDL/HDL, 10/07/24: 71/66/31/21 EKG 10/10/2024: Atrial fibrillation EKG, 10/15/2024: Atrial fibrillation Echocardiogram, 10/07/2024: lvef 15-20% dilated LV severe global dysfunction mild RV dysfunction biatrial enlargement mild moderate MAC, moderate mitral regurg mild to moderate aortic regug RICHIE, 10/08/2024: 1. Left ventricle: Dilated LV was seen. LVEF was 25%. There was diffuse hypokinesis of left ventricle. 2. Right ventricle: RV was mildly dilated. 3. Left atrium: LA enlarged 4. Right atrium: RA was enlarged. 5. Mitral valve: Mitral was thickened with reduced opening. Moderate Mitral regurgitation was seen. Planinomentry of valve (TTE images also obtained) revealed MVA of 2.1 cm. Mean pressure gradient (obtained from limited TTE images) was 5. Images are consistent with previously implanted Ring in Mitral position. Consistent with up to Moderate Mitral stenosis. . There was no vegetation 6. Left atrial appendage: No evidence of thrombus. 7. Aortic valve: Trileaflet valve. No stenosis. Up to moderate Aortic Insufficiency was seen. There was no vegetation 8. Pulmonic valve: Trivial pulmonic insufficiency. No significant stenosis. 9. Tricuspid valve: Mild tricuspid regurgitation. There was no vegetation 10. Interatrial septum: Negative color flow for right to left shunt was observed. Bubble study was performed: negative for shunt 11. Pericardium: No significant effusion. 12. Thoracic aorta: No significant plaquing. Chest x-ray, 10/27/2024: 1. Cardiomegaly, stable diffuse increased prominence of the pulmonary vasculature and small bilateral pleural effusions. 2. Slight interval advancement of endotracheal tube as above. Remaining lines and tubes unchanged. CT head, 10/07/2024: No acute intracranial abnormality General: the patient is well developed and nourished. No acute distress. Intubated CT head, 10/07/2024: No acute intracranial abnormality. CT head, 10/11/2024: No acute intracranial abnormality CT head, 11/01/2024: As above, the other systems are negative vital signs Vital Sign Date Time Temp Pulse Resp B/P (MAP) Pulse Ox O2 Delivery O2 Flow Rate FiO2 11/14/24 20:31 78 20 122/50 (74) 100 30 9/17/25 18:33 98.1 208.6 11/14/24 18:00 Mechanical Ventilator+ 11/13/24 20:00 2 Total Intake and Output 11/13/24 11/13/24 11/14/24 15:00 23:00 07:00 Intake Total 160 ml 160 ml 22.874 ml Output Total 230 ml 150 ml Balance 160 ml -70 ml -127.126 ml medications Current Medications Medications Dose Ordered Sig/Liliam Route Start Time Stop Time Status Last Admin Dose Admin Amino Acids 0 ml @ 0 mls/hr PER PHARMACY IV 10/15/24 18:45 Cancel Dextrose 50 ml UD IV 10/16/24 09:30 Cancel Vancomycin HCl 0 ml @ 0 mls/hr UD IV 10/19/24 14:00 Cancel Metoprolol Tartrate 2.5 mg Q6HPRN PRN IV 10/31/24 09:15 Amino Acids 0 ml @ 0 mls/hr PER PHARMACY IV 11/04/24 22:00 Cancel Amino Acid Protein 30 ml DAILY PO 11/04/24 10:00 11/14/24 09:19 30 ML Pantoprazole Sodium 40 mg BID IV 11/09/24 22:00 11/14/24 22:05 40 MG Morphine Sulfate 4 mg Q4HPRN PRN IV 11/10/24 13:00 11/14/24 01:15 4 MG Acetaminophen/ Hydrocodone Bitart 1 tab Q4HPRN PRN GT 11/10/24 15:30 11/13/24 13:46 1 TAB Mexiletine HCl 150 mg TID GT 11/10/24 22:00 11/14/24 22:05 150 MG Fat Emulsion Intravenous 150 ml/Sodium Acetate 20 meq/Potassium Acetate 30 meq/ Potassium Phosphate 19.8 meq/Calcium Gluconate 2.3 meq/ Magnesium Sulfate 4 meq/ Multivitamins 10 ml/Chromium/ Copper/Manganese/ Zinc 1 ml/Amino Acids/Dextrose/ Purified Water 1,596.4462 ml @ 66 mls/hr [id number] IV 11/11/24 22:00 11/12/24 21:59 Cancel Apixaban 2.5 mg BID PO 11/13/24 22:00 11/14/24 22:05 2.5 MG Hydrocortisone Sodium Succinate 50 mg DAILY IV 11/14/24 10:00 11/14/24 09:14 50 MG Norepinephrine Bitartrate 250 ml @ 3.75 mls/hr Q24H IV 11/14/24 04:15 11/14/24 04:15 3.75 MLS/HR Midazolam HCl 50 ml @ 1 mls/hr Q24H IV 11/14/24 04:15 11/14/24 21:47 15 MLS/HR Cefepime HCl 50 ml @ 12.5 mls/hr Q8HR IV 11/14/24 14:00 11/14/24 22:05 12.5 MLS/HR Furosemide 40 mg BIDD IV 11/14/24 18:00 11/14/24 18:02 40 MG Enteral Nutritional Formula 1,000 ml 10ML/HR GT 11/14/24 15:15 objective The patient is well-nourished and well-developed with no distress. Intubated MENTAL STATUS: Subjective CRANIAL NERVES: Pupils are equal, round and reactive. This corneal reflex and doll's eye phenomena. No some facial weakness, she has gag reflexes. SENSATION: Okay to painful stimuli MOTOR: Normal tone in the upper and lower extremity. Normal muscle bulk. No fasciculations. No spontaneous extremity movement REFLEXES: Deep tendon reflexes are symmetrical. No pathological reflexes. CEREBELLAR/COORDINATION: Deferred GAIT/STATION: deferred. laboratory and microbiology Laboratory Tests 11/14/24 11:50 11/14/24 03:39 Test 11/14/24 11:50 Range/Units Serum Glucose 116 H 74-106 mg/dL Problem List Cardiopulmonary arrest Status post CPR Reintubated on 11/14/2024 Metabolic encephalopathy Hypoxic encephalopathy Congestive heart failure Leukocytosis/sepsis/septic shock Respiratory failure Elevated liver function tests AFib S/P pacemaker insertion on 10/17/2024 ? Chronic organic brain syndrome Assessment/Plan Monitoring Supportive treatment ICU care Stabilize vitals/pressor drip Respiratory support/ vent management Oxygen DVT prophylaxis GI prophylaxis Cardiology on case Pulmonology on case Nephrology on case Need more history This medical document was created using an electronic medical record system with [employer] system. Although this document has been carefully reviewed, there may still be some phonetic and typographical errors. These areas are purely typographical due to imperfections of the software programs, and do not reflect any compromise in the patient's medical care. Prognosis Guarded Dietary Evaluation Review Comments: 1) TF Jevity 1.2Cal @ 55 ml/hr. x 24hr along with Pro-stat 1 pk daily. Start @ 20ml/hr, increase 10ml/hr Q4H until goal is reached. TF @ goal volume provides 1684 kcal (100% energy needs), 88 gm protein (100% protein needs), 1065 ml free water. 2) Water flush 100ml Q4H if allowed, adjust PRN 3) Advance to cardiac diet as medically feasible 4) Monitor NPO status, lab values, wt trend, I/O Expected Outcomes/Goals: To meet >75% estimated needs within 7 days Lab values to improve Fu 2-3 days Plan discussed with: Other Critical Care Time(min): 35 CAROLINE ROBB MD Nov 14, 2024 22:24
[2024-11-15] VITALS (113 sets, daily range): BP systolic 85–132; BP diastolic 30–65; PULSE 55–78; RESP 16–22; TEMP 96.6–99; O2SAT 99–100
[2024-11-15 01:47] LABS: Hematocrit 30.8 % (36.0-46.0); Hemoglobin 10.0 g/dL (12.2-16.2); Mean Corpuscular Hemoglobin 30.0 pg (28.0-32.0); Mean Corpuscular Volume 92.1 fL (80.0-100.0); Nucleated Red Blood Cells % 0.8 %
[2024-11-15 02:07] LABS: Anion Gap 15 (5-15); BUN/Creatinine Ratio 48.7 (10.0-20.0); Carbon Dioxide 26 mmol/L (20-31); Glucose 90 mg/dL (74-106); Magnesium 2.2 mg/dL (1.6-2.6)
[2024-11-15 02:19] LABS: Alanine Aminotransferase > 6000 U/L (7-40); Albumin 2.9 g/dL (3.2-4.8); Alkaline Phosphatase 286 U/L (46-116); Bilirubin, Total 4.0 mg/dL (0.2-1.0); Blood Urea Nitrogen 38 mg/dL (9-23); Calcium 8.3 mg/dL (8.7-10.4); Chloride 108 mmol/L (98-107); Potassium 3.0 mmol/L (3.5-5.1); Sodium 149 mmol/L (136-145); Total Protein 5.1 g/dL (5.7-8.2)
[2024-11-15] MEDS: POTASSIUM CHL 20MEQ/100ML 100 ML IV SCH ×2 (03:25→16:37)
[2024-11-15 05:09] LABS: Urine Amorphous Crystal FEW /hpf (None Seen); Urine Protein, UAD TRACE (Negative)
--- NOTE | 2024-11-15 05:44 | DVH ---
CHEST RADIOGRAPH Indication: RESP FAILURE Technique: Single frontal view of the chest was obtained COMPARISON: XY CHEST XRAY 1 VIEW on DOS: 11/14/24, XY CHEST PORTABLE on DOS: 11/14/24, XY CHEST XRAY 1 VIEW on DOS: 11/05/24, XY CHEST XRAY 1 VIEW on DOS: 11/01/24, XY CHEST PORTABLE on DOS: 10/30/24 FINDINGS: Lines and Tubes: Endotracheal tube in satisfactory position. Left chest wall AICD. Lungs: Mild pulmonary vascular congestion. Pleura: No effusion. No pneumothorax. Cardiomediastinal contours: Cardiomegaly. Bones: Unremarkable. IMPRESSION: No significant interval change.
[2024-11-15 06:53] LABS: Base Excess 2.9 mmol/L (-2.0-3.0)
--- NOTE | 2024-11-15 07:44 | ECG ---
[facility] Test Date: 2024-11-15 Test Time: 01:54:39 Pat Name: CLAIRE OLIVO Department: icu Room: [address] [place] [address] A Gender: F Game [employer] Supervisor: ferdinand : 1970 Requested By: CORDELL VERA Order Number: [id number] Reading MD: Marito Skelton Measurements Intervals [place] Rate: 69 P: -69 [place]: 167 QRS: 14 QRSD: 98 T: -84 QT: 559 QTc: 599 Interpretive Statements Sinus or ectopic atrial rhythm Ventricular trigeminy Probable LVH with secondary repol abnrm Prolonged QT interval Electronically Signed On 11-15-2024 15:09:49 PDT by Marito Skelton Please click the below link to view image of tracing.
--- NOTE | 2024-11-15 09:06 | DVHPN2 ---
Progress Note - Dictate Date Seen: Nov 15, 2024 Has the PT tested + for MRSA If YES, has PT been informed?: No Medical Necessity Reason Pt with a Central, PICC or Fol: No The following are medically ne: PICC Line, Cutler Catheter Reason for cutler catheter: Strict I&O vital signs Vital Sign Date Time Temp Pulse Resp B/P (MAP) Pulse Ox O2 Delivery O2 Flow Rate FiO2 11/15/24 07:20 61 18 105/40 (61) 100 30 11/15/24 05:59 Mechanical Ventilator+ 11/15/24 02:03 98.1 208.6 11/13/24 20:00 2 Total Intake and Output 11/14/24 11/14/24 11/15/24 15:00 23:00 07:00 Intake Total 117.5 ml 222.50 ml 323.75 ml Output Total 1850 ml 2150 ml Balance 117.5 ml -1627.50 ml -1826.25 ml medications Current Medications Medications Dose Ordered Sig/Liliam Route Start Time Stop Time Status Last Admin Dose Admin Amino Acids 0 ml @ 0 mls/hr PER PHARMACY IV 10/15/24 18:45 Cancel Dextrose 50 ml UD IV 10/16/24 09:30 Cancel Vancomycin HCl 0 ml @ 0 mls/hr UD IV 10/19/24 14:00 Cancel Metoprolol Tartrate 2.5 mg Q6HPRN PRN IV 10/31/24 09:15 Amino Acids 0 ml @ 0 mls/hr PER PHARMACY IV 11/04/24 22:00 Cancel Amino Acid Protein 30 ml DAILY PO 11/04/24 10:00 11/14/24 09:19 30 ML Pantoprazole Sodium 40 mg BID IV 11/09/24 22:00 11/14/24 22:05 40 MG Morphine Sulfate 4 mg Q4HPRN PRN IV 11/10/24 13:00 11/14/24 01:15 4 MG Acetaminophen/ Hydrocodone Bitart 1 tab Q4HPRN PRN GT 11/10/24 15:30 11/13/24 13:46 1 TAB Mexiletine HCl 150 mg TID GT 11/10/24 22:00 11/15/24 06:31 150 MG Fat Emulsion Intravenous 150 ml/Sodium Acetate 20 meq/Potassium Acetate 30 meq/ Potassium Phosphate 19.8 meq/Calcium Gluconate 2.3 meq/ Magnesium Sulfate 4 meq/ Multivitamins 10 ml/Chromium/ Copper/Manganese/ Zinc 1 ml/Amino Acids/Dextrose/ Purified Water 1,596.4462 ml @ 66 mls/hr [id number] IV 11/11/24 22:00 11/12/24 21:59 Cancel Apixaban 2.5 mg BID PO 11/13/24 22:00 11/14/24 22:05 2.5 MG Hydrocortisone Sodium Succinate 50 mg DAILY IV 11/14/24 10:00 11/14/24 09:14 50 MG Norepinephrine Bitartrate 250 ml @ 3.75 mls/hr Q24H IV 11/14/24 04:15 11/14/24 04:15 3.75 MLS/HR Midazolam HCl 50 ml @ 1 mls/hr Q24H IV 11/14/24 04:15 11/15/24 06:54 15 MLS/HR Cefepime HCl 50 ml @ 12.5 mls/hr Q8HR IV 11/14/24 14:00 11/15/24 06:31 12.5 MLS/HR Furosemide 40 mg BIDD IV 11/14/24 18:00 11/15/24 06:00 40 MG Enteral Nutritional Formula 1,000 ml 10ML/HR GT 11/14/24 15:15 Phenylephrine HCl 250 ml @ 30 mls/hr Q8H20M IV 11/15/24 09:00 UNV laboratory and microbiology Laboratory Tests 11/15/24 01:35 Test 11/15/24 01:35 Range/Units Serum Glucose 90 74-106 mg/dL Assessment/Plan Had respiratory failure in tele floor, intubated and transferred to ICU. On Levophed. No Arrhythmia identified during this episodes. Patient is a 54-year-old female who was brought to the hospital for witnessed syncope. She is intubated and is being managed in ICU. Information was obtained by reviewing the chart and communicating with patient's son (over the phone). Family recognized witnessed syncope and started CPR and called EMS. Reportedly, EMS found the patient in ventricular fibrillation and shocked the patient and brought the patient to the hospital. Patient was intubated in emergency room and transferred to ICU. Patient was on amiodarone drip. Later the patient had ventricular tachycardia (Systane). High sensitive troponin had been minimally/flatly elevated. Presentation was not in favor of acute coronary syndrome. Cardiology is involved for cardiac aspects of care. Intubated. On Vent. No JVD. Mucosa pale. No carotid bruit. Scattered rhonchi in the lungs is heard. Cardiac: Regular, no thrill. Systolic murmur 2/6 in apex is heard. Abdomen is soft. 3+ edema in extremities. Past medical history as per son: Congenital heart disease, status post bypass WBC: 14.5 - 11.9 - 18.8 - 20.0 - 21.2 - 14.3 - 10.3 - 8.9 - 9.2 - 11.1 - 12.1 - 10.8 - 12.0 - 9.9 - 15.4 - 14.8 - 12.1 - 10.5 - 5.8 - 5.3 - 4.2 - 5.8 - 4.1 - 7.0 - 9.3 - 8.3 - 11.5 - 8.4 - 8.4 - 5.4 - 5.7 - 8.4 - 7.4 - 6.2 - 6.7 - 13.9 - 11.7 Hemoglobin: 10.1 - 9.6 - 9.2 - 8.8 - 8.7 - 8.0 - 8.3 - 8.5 - 7.8 - 10.2 - 10.7 - 9.9 - 9.7 - 9.3 - 9.3 - 8.6 - 8.1 - 7.4 - 7.5 - 7.4 - 7.5 - 7.2 - 7.7 - 7.0 - (post PRBC transfusion) 10.4 - 10 - 9.5 - 10.0 - 9.2 - 9.8 -9.6 - 9.7 - 10.2 - 10.6 - 9.7 - 9.7 - 10.5 - 10.0 Creatinine: 0.95 - 0.93 - 0.87 - 0.83 - 0.83 - 0.76 - 0.68 - 0.72 - 0.79 - 0.76 - 0.80 - 0.84 - 0.61 - 0.65 - 0.74 - 0.64 - 0.73 - 0.82 - 0.88 - 1.03 - 0.99 - 0.85 - 0.87 - 0.79 - 1.12 - 1.15 - 1.04 - 0.96 - 0.94 - 0.93 - 0.78 - 0.71 - 0.68 - 0.61 - 0.59 - 0.49 - 0.39 - 0.54 - 0.48 - 0.76 - 0.93 - 0.78 Potassium: 3.4 - 4.0 - 4.6 - 3.5 - 3.3 - 4.1 - 3.7 - 3.2 - 3.7 - 4.0 - 3.2 - 3.4 - 3.9 - 4.2 - 3.3 - 3.8 - 3.6 - 3.4 - 4.2 - 3.8 - 4.5 - 4.1 - 3.5 - 4.2 - 3.3 - 2.6 - 3.5 - 3.8 - 2.4 - 2.9 - 4.6 - 2.8 - 4.8 - 4.9 - 3.4 - 3.1 - 3.7 - 4.4 - 3.7 - 3.7 - 3.1 - 3.0 - 3.8 - 4.4 - 3.8 - 4.1 - 4.3 - 3.9 - 4.4 - 6.1 - 4.6 - 3.0 Magnesium: 2.0 - 1.6 - 2.0 - 3.0 - 1.5 - 1.9 - 2.1 - 1.8 - 2.0 - 1.9 - 1.9 - 2.6 - 2.0 - 1.8 - 1.6 - 2.0 - 2.2 - 1.9 - 2.3 - 2.2 - 2.2 - 2.1 - 2.1 - 1.9 2.7 - 2.6 - 2.3 - 2.4 - 2.5 - 2.3 - 2.5 - 2.3 - 2.3 - 2.4 - 2.1 - 1.9 - 2.2 - 2.1 - 2.0 - 2.4 - 2.2 Troponin (high sensitive): 141 - 138 - 117 BNP: 457.16 - 1073.91 - 928.14 AST/ALT: 32/11 - 19/13 - 538/168 - 293/152 - 131/130 - 78/94 - 68/74 - 48/57 - 27/38 - 15/23 - 20/18 - 23/17 - 29/16 - 27/13 - 34/17 - 73/49 - 41/43 - 30/47 - 30/42 - 29/42 - 17/27 - 160/87 - 900/478 - 986/571 - 382/436 - 110/244 - 42/170 - 22/113 - 16/77 - 15/59 - 19/50 - 20/41 - 16/32 - 17/30 - 14/25 - 25/38 - - /2337 - >6000/>6000 Digoxin level: 2.83 - 1.25 - 0.98 UDS: non-revealing Chest x-ray revealed: Lines and Tubes: Endotracheal tube tip projects approximately 1.4 cm above the level of the tyler. Enteric catheter courses below the lateral of the diaphragm and terminates beyond the inferior margin of the image. Right internal jugular central venous catheter terminates within the distal superior vena cava. Lungs: Moderate diffuse increased prominence of the pulmonary vasculature without evidence of focal consolidation. Pleura: No effusion. No pneumothorax. Cardiomediastinal contours: Cardiomegaly. Bones: Unremarkable IMPRESSION: 1. Cardiomegaly and diffuse increased prominence of the pulmonary vasculature. 2. Lines and tubes as above. Repeat chest x-ray revealed: IMPRESSION: 1. Endotracheal tube tip 1.6 cm above the tyler; consider 2 cm retraction 2. Mild pulmonary vascular congestion. Moderate cardiomegaly. Repeat chest xry revealed: IMPRESSION: Endotracheal tube tip 1.6 cm above the tyler; consider 2 cm retraction Mild pulmonary vascular congestion. Moderate cardiomegaly. Repeat chest xry revealed: IMPRESSION: 1. Stable cardiomegaly, small left pleural effusion and mild diffuse increased prominence of the pulmonary vasculature. 2. Repositioned endotracheal tube as above. Remaining lines and tubes unchanged. Repeat chest xry revealed: IMPRESSION: 1. Cardiomegaly, stable diffuse increased prominence of the pulmonary vasculature and small bilateral pleural effusions. 2. Slight interval advancement of endotracheal tube as above. Remaining lines and tubes unchanged. Repeat chest xry revealed: IMPRESSION: 1. Slight interval decrease in diffuse increased prominence of the pulmonary vasculature. 2. Stable cardiomegaly and small left pleural effusion. 3. Lines and tubes unchanged. Repeat chest xry revealed: IMPRESSION: 1. Cardiomegaly and small left pleural effusion. 2. Lines and tubes unchanged. Repeat chest xry revealed: IMPRESSION: Stable lines and tubes. Similar lung aeration. Repeat chest xry revealed: IMPRESSION: Cardiomegaly and small left pleural effusion. Lines and tubes unchanged. Repeat chest xry revealed: IMPRESSION: Placement of a cardiac pacer, no pneumothorax is seen. Stable lines and tubes. Repeat chest xry revealed: IMPRESSION: 1. Worsening mixed opacities in the right lower lung. No other significant change from the previous study. Stable support devices. Repeat chest xry revealed: Heart is prominent in size with postsurgical changes, median sternotomy wires, and a single lead left cardiac defibrillator. Support lines and tubes appear unchanged in satisfactory in position. No sizable effusion or pneumothorax. Mild pulmonary vascular congestion. No significant interval change. Repeat chest xry revealed: IMPRESSION: 1. No significant change from the previous study. Stable support devices. Similar findings of heart failure including left pleural effusion. Repeat chest xry revealed: IMPRESSION: 1. No significant change from the previous study. Stable support devices. Similar findings of heart failure including trace left pleural effusion. Repeat chest xry revealed: Lines and Tubes: Unchanged. Left anterior chest wall cardiac pacing device. Lungs: Clear Pleura: No effusion. No pneumothorax. Cardiomediastinal contours: Cardiomegaly. Bones: Unremarkable IMPRESSION: 1. Cardiomegaly. 2. Lines and tubes unchanged. Repeat chest xry revealed: IMPRESSION: Lines and tubes in satisfactory position. No significant interval change. Repeat chest xry revealed: Lines and Tubes: ET tube and NG tube removed. Lungs: Congestion Pleura: No effusion. No pneumothorax. Cardiomediastinal contours: Cardiomegaly Bones: Unremarkable IMPRESSION: 1. Cardiomegaly with CHF. Repeat chest xry revealed: IMPRESSION: 1. Cardiomegaly. 2. Patchy bilateral airspace disease. Repeat chest xry revealed: FINDINGS: Lines and Tubes: None. Left anterior chest wall cardiac pacing device. Lungs: Extensive multifocal bilateral pulmonary airspace disease in a predominantly perihilar and bibasilar distribution with consolidative features. Pleura: No effusion. No pneumothorax. Cardiomediastinal contours: Poorly evaluated secondary to extensive bilateral infiltrate. Bones: Unremarkable IMPRESSION: 1. Extensive multifocal bilateral pulmonary airspace disease in a predominantly perihilar and bibasilar distribution with consolidative features. Repeat chest xry revealed: IMPRESSION: 1. Status post interval intubation. Endotracheal tube tip projects approximately 2.4 cm above the level of the tyler. 2. Grossly stable appearing moderate patchy multifocal bilateral pulmonary airspace disease with consolidative features. 3. Cardiomegaly. Repeat chest xry revealed: IMPRESSION: No significant interval change. Liver Ultrasound revealed: Hepatic steatosis. Trace right pleural effusion. Trace ascites Gallstones Bladder ultrasound revealed: IMPRESSION: 1. Cutler catheter in the bladder in the bladder is decompressed. Repeat Bladder Ultrasound revealed: Urinary bladder is unremarkable with prevoid volume of 29 mL. Urinary bladder wall measures 1.5 mm. Cutler catheter is noted. KUB revealed: IMPRESSION: Nonobstructive bowel gas pattern. Nasogastric tube tip in the stomach. Large stool burden. Repeat KUB revealed: Right lower extremity PICC line with tip projecting over the expected region of the intrahepatic IVC. Nasogastric tube projecting towards the distal stomach. Nonspecific bowel gas pattern. Cardiomegaly and left basilar airspace opacities, incompletely characterized. Atherosclerotic calcification disease. Repeat KUB revealed: IMPRESSION: 1. Nonspecific nonobstructive bowel gas pattern. 2. Gastrostomy tube projects over the midportion of the left hemiabdomen. 3. Right femoral approach central venous catheter as described above. Left upper ext arterial duplex: IMPRESSION: No hemodynamically significant stenosis based on peak systolic velocity criteria. Left lower ext arterial duplex: IMPRESSION: There is no evidence for peripheral vascular insufficiency in the left lower extremity. No significant focal stenosis is identified. Liver Ultrasound revealed: Hepatic steatosis. Hepatomegaly. Cholelithiasis. CT of the head revealed: IMPRESSION: No acute intracranial abnormality. Repeat CT of head revealed: IMPRESSION: No acute intracranial abnormality. Repeat CT of Head revealed: IMPRESSION: No acute intracranial abnormality. Echocardiogram reported: lvef 15-20% dilated LV severe global dysfunction mild RV dysfunction biatrial enlargement mild moderate MAC, moderate mitral regurg mild to moderate aortic regug (images of echo reviewed and questioned presence of mitral ring and also some component (moderate of Mitral stenosis) EKG revealed sinus rhythm Telemetry revealed occasions of atrial fibrillation. There was occasional sustained ventricular tachycardia. EMS tele monitor revealed ventricular fibrillation for which the patient was shocked. Has remained sinus rhythm. Later with A-fib with MVR LHC revealed: Patent RICHMOND to LAD; Patent SVG to obtuse marginal; LVEF of 20% with increased EDP; Proximal disease in LAD/LCX RICHIE was performed: Consistent with severely reduced LVEF. Consistent with previously implanted Mitral ring, Up to moderate Mitral stenosis/Mitral Regurgitation and also Moderate Aortic insufficiency. Patient is a 54-year-old female who presented with witnessed syncope. She was found to have ventricular fibrillation for which was shocked. Later had repeated episode of sustained ventricular tachycardia. Patient has been kept in ICU. Does have baseline history of coronary artery disease for which has had bypass surgery. Left heart catheterization was performed which revealed patent R[place]D and patent SVG. ACS is not considered at this point. It is of note that the patient's echocardiogram reveals significantly use systolic function. Valvular heart disease is considered. Findings are in favor of previously implanted mitral ring. By reviewing the echo images, component of up to moderate mitral stenosis could not be ruled out. LHC was performed that ruled out any active specific ischemia as an etiology for presentation. Is off Amiodarone for abnormal LFT. Being followed by Nephrology / Pulmonary / Neurology / GI ID. Tele has remained sinus rhythm. Had episode of a-fib with RVR. Was loaded with Digoxin. Dig level was performed at wrong timing (only 5 hours after the last Dig given). Dig toxicity is not considered. Patient is back to normal sinus rhythm. Has good kidney function. Repeat Dig level is acceptable level. s/p ICD implantation by EP. Intubated, later extubated. s/p PEG. Later had respiratory failure and was taken back to ICU. Imaging question pneumonia (can it be aspiration?). Eventhough repeat BNP has not increased (decreased somehow), patient does have peripheral edema and component of acute on chronic Systolic heart failure could also contribute to respiratory failure. The site of ICD implantation was reviewed by EP (Dr Armstrong on 05/13/2024): healing well (personal communication). Syncope V-fib s/p shock Sustained V-tach Paroxysmal A-fib VHD, s/p Mitral ring Systolic heart failure Abnormal LFT, at a point resolved, later appeared again s/p ICD (Biotronik) implantation by EP (Dr Armstrong) s/p PRBC transfusion for significant anemia Hepatic Steatosis Gallstones Failed Swallowing s/p PEG Acute respiratory failure Acute on chronic systolic heart failure Cardiac suggestion for management: Manage in ICU IV diuresis Follow up electrolytes and kidney function test and correct abnormalities Full anticoagulation (a-fib with high CHADS-Vasc score). s/p ICD implantation. On Eliquis Off Amio drip (worsened LFT) On Mexiletine On Levo-Phed: keep MAP above 65 (for now off pressure support and tolerating) Was on Metoprolol to decrease risk of Vtach (as patient has ICD with bradycardia protection: may continue metoprolol in case of bradycardia, but hold: if hypotensive). For now will stop/hold Metoprolol May consider/add Esmolol for PVC/Vtach (if needed) s/p ICD (Biotronik) implantation by EP Eliquis: 2.5 mg BID: when she can swallow and after any predicted procedure completed s/p PEG Pulmonary Follow up GI follow up Management of repeat respiratory failure, pneumonia as per primary team/pulmonary Provide previous medical records from reaching out to previous hospitals in [facility]... Further evaluation and management depends on the above and clinical course. A total of 55 minutes was spent reviewing the patient record, examining the patient, making a diagnostic and therapeutic plan, discussing this plan with medical personnel, following up on diagnostic studies and following the patient for clinical stability excluding any and all procedures. At least 50% of this time was spent in direct, [id number] contact. Thank you for allowing me to participate in this patient's care. Further recommendations will depend on patient's clinical course. Please do not hesitate to contact me if you have any questions or concerns. This medical document was created using electronic medical record system with [employer] computerized dictation system. Although this document has been carefully reviewed, there may still be some phonetic and typographical errors. These areas are purely typographical due to the imperfection of the software programs, and do not reflect any compromise in the patient's medical care. Dietary Evaluation Review Comments: 1) TF Jevity 1.2Cal @ 55 ml/hr. x 24hr along with Pro-stat 1 pk daily. Start @ 20ml/hr, increase 10ml/hr Q4H until goal is reached. TF @ goal volume provides 1684 kcal (100% energy needs), 88 gm protein (100% protein needs), 1065 ml free water. 2) Water flush 100ml Q4H if allowed, adjust PRN 3) Advance to cardiac diet as medically feasible 4) Monitor NPO status, lab values, wt trend, I/O Expected Outcomes/Goals: To meet >75% estimated needs within 7 days Lab values to improve Fu 2-3 days Plan discussed with: Other (nurse) CORDELL VERA MD Nov 15, 2024 09:06
--- NOTE | 2024-11-15 09:10 | DVHPN2 ---
Progress Note - Dictate Date Seen: Nov 15, 2024 Has the PT tested + for MRSA If YES, has PT been informed?: No Medical Necessity Reason Pt with a Central, PICC or Fol: No The following are medically ne: PICC Line, Cutler Catheter Reason for cutler catheter: Strict I&O vital signs Vital Sign Date Time Temp Pulse Resp B/P (MAP) Pulse Ox O2 Delivery O2 Flow Rate FiO2 11/15/24 07:20 61 18 105/40 (61) 100 30 11/15/24 05:59 Mechanical Ventilator+ 11/15/24 02:03 98.1 208.6 11/13/24 20:00 2 Total Intake and Output 11/14/24 11/14/24 11/15/24 15:00 23:00 07:00 Intake Total 117.5 ml 222.50 ml 323.75 ml Output Total 1850 ml 2150 ml Balance 117.5 ml -1627.50 ml -1826.25 ml medications Current Medications Medications Dose Ordered Sig/Liliam Route Start Time Stop Time Status Last Admin Dose Admin Amino Acids 0 ml @ 0 mls/hr PER PHARMACY IV 10/15/24 18:45 Cancel Dextrose 50 ml UD IV 10/16/24 09:30 Cancel Vancomycin HCl 0 ml @ 0 mls/hr UD IV 10/19/24 14:00 Cancel Metoprolol Tartrate 2.5 mg Q6HPRN PRN IV 10/31/24 09:15 Amino Acids 0 ml @ 0 mls/hr PER PHARMACY IV 11/04/24 22:00 Cancel Amino Acid Protein 30 ml DAILY PO 11/04/24 10:00 11/14/24 09:19 30 ML Pantoprazole Sodium 40 mg BID IV 11/09/24 22:00 11/14/24 22:05 40 MG Morphine Sulfate 4 mg Q4HPRN PRN IV 11/10/24 13:00 11/14/24 01:15 4 MG Acetaminophen/ Hydrocodone Bitart 1 tab Q4HPRN PRN GT 11/10/24 15:30 11/13/24 13:46 1 TAB Mexiletine HCl 150 mg TID GT 11/10/24 22:00 11/15/24 06:31 150 MG Fat Emulsion Intravenous 150 ml/Sodium Acetate 20 meq/Potassium Acetate 30 meq/ Potassium Phosphate 19.8 meq/Calcium Gluconate 2.3 meq/ Magnesium Sulfate 4 meq/ Multivitamins 10 ml/Chromium/ Copper/Manganese/ Zinc 1 ml/Amino Acids/Dextrose/ Purified Water 1,596.4462 ml @ 66 mls/hr [id number] IV 11/11/24 22:00 11/12/24 21:59 Cancel Apixaban 2.5 mg BID PO 11/13/24 22:00 11/14/24 22:05 2.5 MG Hydrocortisone Sodium Succinate 50 mg DAILY IV 11/14/24 10:00 11/14/24 09:14 50 MG Norepinephrine Bitartrate 250 ml @ 3.75 mls/hr Q24H IV 11/14/24 04:15 11/14/24 04:15 3.75 MLS/HR Midazolam HCl 50 ml @ 1 mls/hr Q24H IV 11/14/24 04:15 11/15/24 06:54 15 MLS/HR Cefepime HCl 50 ml @ 12.5 mls/hr Q8HR IV 11/14/24 14:00 11/15/24 06:31 12.5 MLS/HR Furosemide 40 mg BIDD IV 11/14/24 18:00 11/15/24 06:00 40 MG Enteral Nutritional Formula 1,000 ml 10ML/HR GT 11/14/24 15:15 Phenylephrine HCl 250 ml @ 30 mls/hr Q8H20M IV 11/15/24 09:00 UNV objective General Appearance: no distress HEENT: EOMI, PERRLA, normal external inspect of ears, no icterus, no nasal drainage Neck: no carotid bruit, no jugular venous distention (JVD), no lymphadenopathy Chest: normal thorax Respiratory: Intubated, clear to auscultation, normal air movement Cardiovascular: regular rate and rhythm, no diastolic murmur, no jugular venous distention (JVD), no rub, no systolic murmur Abdominal: soft, no hepatomegaly, no mass, no splenomegaly, no tenderness Genitourinary: grossly normal external Musculoskeletal: no joint tenderness, no swelling Extremities: normal pulses, no calf tenderness, no clubbing, no cyanosis, no edema Skin: no bruising, no jaundice, no rash Neurological: No focal deficit laboratory and microbiology Laboratory Tests 11/15/24 01:35 Test 11/15/24 01:35 Range/Units Serum Glucose 90 74-106 mg/dL Problem List Cardiac Arrest with Ventricular Fibrillation Assessment: Patient experienced cardiac arrest with ventricular fibrillation on 10/07/24, witnessed by family members who initiated CPR. EMS found the patient in ventricular fibrillation and administered shock therapy. Rhythm strip analysis confirmed ventricular fibrillation. Patient required intubation and sedation upon ED arrival. Currently admitted to ICU for close observation. Cardiology has been consulted and plans for AICD placement, likely on Tuesday. Infectious disease clearance has been obtained for the AICD procedure, addressing initial concerns of leukocytosis which is now improving. Status post-cardiac arrest. Plan: - Continue ICU monitoring - Proceed with AICD placement as planned (likely Tuesday), cleared by infectious disease. - Maintain intubation and sedation until AICD placement - Continue Heparin drip for paroxysmal atrial fibrillation - Continue Mexitil - DC amiodarone due to transaminitis - added esmolol drip per Cardiology for AFib and added push doses of digoxin Coronary Artery Disease Assessment: Patient with history of 2-vessel CABG (Coronary Artery Bypass Grafting). Surgical intervention previously performed to address significant coronary artery stenosis. Plan: - Continue medical management - Follow up with cardiology for ongoing coronary artery disease management Acute and Chronic Systolic Heart Failure Assessment: Patient has acute and chronic systolic heart failure with severely reduced left ventricular function. Ejection fraction is estimated at 15-20%. RICHIE findings are consistent with severely reduced left ventricular ejection fraction, previously implanted mitral ring, up to moderate mitral stenosis and regurgitation, and moderate aortic insufficiency. Plan: - Continue cardiology consultation - continue IV diuretics (IV Lasix) - Monitor renal function Acute Hypoxic Respiratory Failure Assessment: Patient is currently intubated due to acute hypoxic respiratory failure. Dr. Downey from pulmonology is managing this aspect of care. Plan: - Maintain current intubation as per pulmonology recommendation - Proceed with CPAP trials when deemed appropriate by pulmonology Transaminitis Assessment: Patient has elevated liver function tests, likely secondary to amiodarone use. Cardiology has discontinued amiodarone in response. Plan: - Monitor liver function tests - Amiodarone discontinued as per cardiology Enterobacter PNA Assessment: Sputum culture positive for Enterobacter. Plan: - Continue treatment with Eratapenem to complete 10 days regimen -Infectious disease consult Hemodynamic Support Assessment: Patient requires vasopressor support for hemodynamic stability. Plan: - Continue vasopressin - Continue neosynephrine Paroxysmal a fib -DC amiodarone -continue with heparin gtt Shock liver GI consult, trend liver enzymes, hepatitis panel was negative. Ultrasound of the liver had no acute findings. Assessment/Plan Subjective Patient remains intubated and sedated. Objective Patient was reintubated for her acute hypoxic respiratory failure related to aspiration. Patient has liver shock, liver enzymes remain elevated. Patient is on several vasopressors, epinephrine, and Levophed. Patient was restarted on IV antibiotics. Currently she is 30% FiO2 on ventilator. Plan Continue current treatment. Continue IV antibiotics. Continue vasopressors for blood pressure support. Patient had a bronchoscopy yesterday. Continue CPAP trials. Dietary Evaluation Review Comments: 1) TF Jevity 1.2Cal @ 55 ml/hr. x 24hr along with Pro-stat 1 pk daily. Start @ 20ml/hr, increase 10ml/hr Q4H until goal is reached. TF @ goal volume provides 1684 kcal (100% energy needs), 88 gm protein (100% protein needs), 1065 ml free water. 2) Water flush 100ml Q4H if allowed, adjust PRN 3) Advance to cardiac diet as medically feasible 4) Monitor NPO status, lab values, wt trend, I/O Expected Outcomes/Goals: To meet >75% estimated needs within 7 days Lab values to improve Fu 2-3 days Plan discussed with: BRODIE Gillis MANAGER [employer] Nov 15, 2024 09:10
[2024-11-15 10:26] LABS: Anion Gap 12 (5-15); BUN/Creatinine Ratio 53.8 (10.0-20.0); Carbon Dioxide 28 mmol/L (20-31); Glucose 80 mg/dL (74-106); Magnesium 2.0 mg/dL (1.6-2.6); Potassium 3.6 mmol/L (3.5-5.1)
--- NOTE | 2024-11-15 10:39 | DVHPN2 ---
Progress Note - Dictate Date Seen: Nov 15, 2024 Has the PT tested + for MRSA If YES, has PT been informed?: No Medical Necessity Reason Pt with a Central, PICC or Fol: No The following are medically ne: PICC Line, Cutler Catheter Reason for cutler catheter: Strict I&O Subjective Ms. Smith is a 54 years old female who was brought to the [facility] on 10/07/2024 with a chief complaint of cardiopulmonary arrest/status post CPR. I have seen and examined the patient in the ICU, I have discussed with nurse I have seen and examined the patient, I have talked to her nurse and other medical staff, she is intubated, on pressor drip, she responsive to light touch, she moves the arms, more on the right side (nurse confirmed) She had PEG insert on 11/09/2024 Versed 0 mg/hour, levo 2 mcg/minute Blood culture, 10/09/2024: No growth Blood culture, 10/19/2024: ABG, 11/04/2024 0220: Metabolic acidosis, 11/04/2024 0427: Metabolic acidosis UDS, 10/07/2024: Negative Urinalysis, 10/07/2024: Leukocyte esterase: Negative WBC/HB/PLT/MCV, 10/09/2024: 20/8.8/219/94.6, 10/10/2024: 21.2/8.7/232/92.2, 11/14/2024: 13.9/10.5/101/I04.1 PT/INR/PTT, 10/08/2024: 12.4/1.19/72.7, 10/09/2024: 13.1/1.26/68.9, 10/10/2024: 14.4/2/1.38/35.3 CMP, 10/08/2024: Unremarkable Troponin one high sensitivity, 10/07/2024: 141, 138, 117 TBI/AST/ALT/AP, 10/10/2024: 0.5/538/168/144, 10/11/2024: 0.6/293/199/152, 10/14/2024: 0.8/68/74/124 TG/HDL/LDL/HDL, 10/07/24: 71/66/31/21 EKG 10/10/2024: Atrial fibrillation EKG, 10/15/2024: Atrial fibrillation Echocardiogram, 10/07/2024: lvef 15-20% dilated LV severe global dysfunction mild RV dysfunction biatrial enlargement mild moderate MAC, moderate mitral regurg mild to moderate aortic regug RICHIE, 10/08/2024: 1. Left ventricle: Dilated LV was seen. LVEF was 25%. There was diffuse hypokinesis of left ventricle. 2. Right ventricle: RV was mildly dilated. 3. Left atrium: LA enlarged 4. Right atrium: RA was enlarged. 5. Mitral valve: Mitral was thickened with reduced opening. Moderate Mitral regurgitation was seen. Planinomentry of valve (TTE images also obtained) revealed MVA of 2.1 cm. Mean pressure gradient (obtained from limited TTE images) was 5. Images are consistent with previously implanted Ring in Mitral position. Consistent with up to Moderate Mitral stenosis. . There was no vegetation 6. Left atrial appendage: No evidence of thrombus. 7. Aortic valve: Trileaflet valve. No stenosis. Up to moderate Aortic Insufficiency was seen. There was no vegetation 8. Pulmonic valve: Trivial pulmonic insufficiency. No significant stenosis. 9. Tricuspid valve: Mild tricuspid regurgitation. There was no vegetation 10. Interatrial septum: Negative color flow for right to left shunt was observed. Bubble study was performed: negative for shunt 11. Pericardium: No significant effusion. 12. Thoracic aorta: No significant plaquing. Chest x-ray, 10/27/2024: 1. Cardiomegaly, stable diffuse increased prominence of the pulmonary vasculature and small bilateral pleural effusions. 2. Slight interval advancement of endotracheal tube as above. Remaining lines and tubes unchanged. CT head, 10/07/2024: No acute intracranial abnormality General: the patient is well developed and nourished. No acute distress. Intubated CT head, 10/07/2024: No acute intracranial abnormality. CT head, 10/11/2024: No acute intracranial abnormality CT head, 11/01/2024: As above, the other systems are negative vital signs Vital Sign Date Time Temp Pulse Resp B/P (MAP) Pulse Ox O2 Delivery O2 Flow Rate FiO2 11/15/24 09:53 67 18 114/53 (73) 100 30 11/15/24 09:19 98.2 208.8 11/15/24 08:00 Mechanical Ventilator+ 11/13/24 20:00 2 Total Intake and Output 11/14/24 11/14/24 11/15/24 15:00 23:00 07:00 Intake Total 117.5 ml 222.50 ml 355.00 ml Output Total 1850 ml 2150 ml Balance 117.5 ml -1627.50 ml -1795.00 ml medications Current Medications Medications Dose Ordered Sig/Liliam Route Start Time Stop Time Status Last Admin Dose Admin Amino Acids 0 ml @ 0 mls/hr PER PHARMACY IV 10/15/24 18:45 Cancel Dextrose 50 ml UD IV 10/16/24 09:30 Cancel Vancomycin HCl 0 ml @ 0 mls/hr UD IV 10/19/24 14:00 Cancel Metoprolol Tartrate 2.5 mg Q6HPRN PRN IV 10/31/24 09:15 Amino Acids 0 ml @ 0 mls/hr PER PHARMACY IV 11/04/24 22:00 Cancel Amino Acid Protein 30 ml DAILY PO 11/04/24 10:00 11/14/24 09:19 30 ML Pantoprazole Sodium 40 mg BID IV 11/09/24 22:00 11/14/24 22:05 40 MG Morphine Sulfate 4 mg Q4HPRN PRN IV 11/10/24 13:00 11/14/24 01:15 4 MG Acetaminophen/ Hydrocodone Bitart 1 tab Q4HPRN PRN GT 11/10/24 15:30 11/13/24 13:46 1 TAB Mexiletine HCl 150 mg TID GT 11/10/24 22:00 11/15/24 06:31 150 MG Fat Emulsion Intravenous 150 ml/Sodium Acetate 20 meq/Potassium Acetate 30 meq/ Potassium Phosphate 19.8 meq/Calcium Gluconate 2.3 meq/ Magnesium Sulfate 4 meq/ Multivitamins 10 ml/Chromium/ Copper/Manganese/ Zinc 1 ml/Amino Acids/Dextrose/ Purified Water 1,596.4462 ml @ 66 mls/hr [id number] IV 11/11/24 22:00 11/12/24 21:59 Cancel Apixaban 2.5 mg BID PO 11/13/24 22:00 11/14/24 22:05 2.5 MG Hydrocortisone Sodium Succinate 50 mg DAILY IV 11/14/24 10:00 11/14/24 09:14 50 MG Norepinephrine Bitartrate 250 ml @ 3.75 mls/hr Q24H IV 11/14/24 04:15 11/14/24 04:15 3.75 MLS/HR Midazolam HCl 50 ml @ 1 mls/hr Q24H IV 11/14/24 04:15 11/15/24 06:54 15 MLS/HR Cefepime HCl 50 ml @ 12.5 mls/hr Q8HR IV 11/14/24 14:00 11/15/24 06:31 12.5 MLS/HR Furosemide 40 mg BIDD IV 11/14/24 18:00 11/15/24 06:00 40 MG Enteral Nutritional Formula 1,000 ml 10ML/HR GT 11/14/24 15:15 Phenylephrine HCl 250 ml @ 30 mls/hr Q8H20M IV 11/15/24 09:00 objective The patient is well-nourished and well-developed with no distress. Intubated MENTAL STATUS: Subjective CRANIAL NERVES: Pupils are equal, round and reactive. This corneal reflex and doll's eye phenomena. No some facial weakness, she has gag reflexes. SENSATION: Okay to light touch and painful stimuli MOTOR: Normal tone in the upper and lower extremity. Normal muscle bulk. No fasciculations. She moves the arms REFLEXES: Deep tendon reflexes are symmetrical. No pathological reflexes. CEREBELLAR/COORDINATION: Deferred GAIT/STATION: deferred. laboratory and microbiology Laboratory Tests 11/15/24 01:35 Test 11/15/24 09:41 Range/Units Serum Glucose Pending Problem List Cardiopulmonary arrest Status post CPR Reintubated on 11/14/2024 Metabolic encephalopathy Hypoxic encephalopathy Congestive heart failure Leukocytosis/sepsis/septic shock Respiratory failure Elevated liver function tests AFib S/P pacemaker insertion on 10/17/2024 ? Chronic organic brain syndrome Assessment/Plan Monitoring Supportive treatment CT head Re: Left arm weakness ICU care Stabilize vitals/pressor drip Respiratory support/ vent management Oxygen DVT prophylaxis GI prophylaxis Cardiology on case Pulmonology on case Nephrology on case Need more history This medical document was created using an electronic medical record system with [employer] system. Although this document has been carefully reviewed, there may still be some phonetic and typographical errors. These areas are purely typographical due to imperfections of the software programs, and do not reflect any compromise in the patient's medical care. Prognosis guarded Dietary Evaluation Review Comments: 1) TF Jevity 1.2Cal @ 55 ml/hr. x 24hr along with Pro-stat 1 pk daily. Start @ 20ml/hr, increase 10ml/hr Q4H until goal is reached. TF @ goal volume provides 1684 kcal (100% energy needs), 88 gm protein (100% protein needs), 1065 ml free water. 2) Water flush 100ml Q4H if allowed, adjust PRN 3) Advance to cardiac diet as medically feasible 4) Monitor NPO status, lab values, wt trend, I/O Expected Outcomes/Goals: To meet >75% estimated needs within 7 days Lab values to improve Fu 2-3 days Plan discussed with: Other Critical Care Time(min): 30 CAROLINE ROBB MD Nov 15, 2024 10:39
[2024-11-15] MEDS: PHENYLEPHRINE IV 250 ML IV SCH (10:55)
[2024-11-15 11:02] LABS: Alanine Aminotransferase > 6000 U/L (7-40); Albumin 3.0 g/dL (3.2-4.8); Alkaline Phosphatase 304 U/L (46-116); Bilirubin, Total 4.4 mg/dL (0.2-1.0); Blood Urea Nitrogen 42 mg/dL (9-23); Calcium 8.3 mg/dL (8.7-10.4); Chloride 108 mmol/L (98-107); Sodium 148 mmol/L (136-145); Total Protein 5.3 g/dL (5.7-8.2)
[2024-11-15] MEDS ORDERED: Nepro With Carb Steady 1 Liter Bottle GT SCH (11:45)
--- NOTE | 2024-11-15 12:22 | DVHPN2 ---
Progress Note Date Seen: Nov 15, 2024 Resident Creating Document: ETHAN SWAN RESIDENT Has the PT tested + for MRSA If YES, has PT been informed?: No Medical Necessity Reason Pt with a Central, PICC or Fol: No The following are medically ne: PICC Line, Cutler Catheter Reason for cutler catheter: Strict I&O Subjective Review of Systems Patient seen and examined at bedside Last BM 11/14/2024 Soft abdomen positive bowel sounds Intubated and sedated Objective vital signs Vital Sign Date Time Temp Pulse Resp B/P (MAP) Pulse Ox O2 Delivery O2 Flow Rate FiO2 11/15/24 10:56 118/57 11/15/24 10:00 30 11/15/24 10:00 18 100 Mechanical Ventilator+ 11/15/24 09:53 67 11/15/24 09:19 98.2 208.8 11/13/24 20:00 2 Total Intake and Output 11/14/24 11/14/24 11/15/24 15:00 23:00 07:00 Intake Total 117.5 ml 222.50 ml 355.00 ml Output Total 1850 ml 2150 ml Balance 117.5 ml -1627.50 ml -1795.00 ml medications Current Medications Medications Dose Ordered Sig/Liliam Route Start Time Stop Time Status Last Admin Dose Admin Amino Acids 0 ml @ 0 mls/hr PER PHARMACY IV 10/15/24 18:45 Cancel Dextrose 50 ml UD IV 10/16/24 09:30 Cancel Vancomycin HCl 0 ml @ 0 mls/hr UD IV 10/19/24 14:00 Cancel Metoprolol Tartrate 2.5 mg Q6HPRN PRN IV 10/31/24 09:15 Amino Acids 0 ml @ 0 mls/hr PER PHARMACY IV 11/04/24 22:00 Cancel Amino Acid Protein 30 ml DAILY PO 11/04/24 10:00 11/14/24 09:19 30 ML Pantoprazole Sodium 40 mg BID IV 11/09/24 22:00 11/15/24 10:54 40 MG Morphine Sulfate 4 mg Q4HPRN PRN IV 11/10/24 13:00 11/14/24 01:15 4 MG Acetaminophen/ Hydrocodone Bitart 1 tab Q4HPRN PRN GT 11/10/24 15:30 11/13/24 13:46 1 TAB Mexiletine HCl 150 mg TID GT 11/10/24 22:00 11/15/24 06:31 150 MG Fat Emulsion Intravenous 150 ml/Sodium Acetate 20 meq/Potassium Acetate 30 meq/ Potassium Phosphate 19.8 meq/Calcium Gluconate 2.3 meq/ Magnesium Sulfate 4 meq/ Multivitamins 10 ml/Chromium/ Copper/Manganese/ Zinc 1 ml/Amino Acids/Dextrose/ Purified Water 1,596.4462 ml @ 66 mls/hr [id number] IV 11/11/24 22:00 11/12/24 21:59 Cancel Apixaban 2.5 mg BID PO 11/13/24 22:00 11/15/24 10:54 2.5 MG Hydrocortisone Sodium Succinate 50 mg DAILY IV 11/14/24 10:00 11/15/24 10:54 50 MG Norepinephrine Bitartrate 250 ml @ 3.75 mls/hr Q24H IV 11/14/24 04:15 11/14/24 04:15 3.75 MLS/HR Midazolam HCl 50 ml @ 1 mls/hr Q24H IV 11/14/24 04:15 11/15/24 10:56 1 MLS/HR Cefepime HCl 50 ml @ 12.5 mls/hr Q8HR IV 11/14/24 14:00 11/15/24 06:31 12.5 MLS/HR Furosemide 40 mg BIDD IV 11/14/24 18:00 11/15/24 06:00 40 MG Phenylephrine HCl 250 ml @ 30 mls/hr Q8H20M IV 11/15/24 09:00 11/15/24 10:55 30 MLS/HR Propofol 100 ml @ 2.088 mls/ hr Q24H IV 11/15/24 11:30 Fentanyl Citrate 250 ml @ 2.5 mls/hr Q24H IV 11/15/24 11:45 Enteral Nutritional Formula 1,000 ml 30ML/HR GT 11/15/24 11:45 Examination General Appearance: sedated, intubated Head Exam: Normal inspection. Constricted equal and reactive pupils Neck Exam: Normal inspection. Non-tender. Normal alignment Pulmonary/Respiratory: Chest non-tender. Trace crackles Abdominal Exam: Normal bowel sounds. Soft. Nontender Skin Exam: Normal inspection. Normal color. Warm. Dry laboratory and microbiology Laboratory Tests 11/15/24 09:41 11/15/24 01:35 Test 11/15/24 09:41 Range/Units Serum Glucose 80 74-106 mg/dL Microbiology Date/Time Source Procedure Growth Status 11/14/24 09:12 Sputum Gram Stain Pending Resulted 11/14/24 09:12 Sputum Respiratory Culture - Preliminary Resulted 11/14/24 08:50 Blood Blood Culture - Preliminary NO GROWTH AFTER 24 HOURS OF INCUBATION. Resulted 11/14/24 04:30 Nose MRSA Screen - Final Complete 10/20/24 01:03 Urine - Cutler Port Urine Culture - Final Yeast, not Ilda albicans Complete Labs and/or images reviewed: Labs reviewed by me, Image(s) reviewed by me Problem List/Assessment/Plan Problem List/Assessment/Plan Acute hepatocellular injury likely shock liver Ventricular fibrillation S/p cardiopulmonary arrest with shock Heart failure with reduced ejection fraction 15-20% Metabolic versus hypoxic encephalopathy Cholelithiasis without acute inflammation Nonalcoholic fatty liver disease with steatohepatitis Community-acquired pneumonia growing Enterobacter Aspiration pnemonia? sepsis Plan: Ordered right upper quadrant ultrasound PT/INR, ammonia continue antibiotics, consider anaerobic coverage consider MRCP once stable Tapered hydrocortisone to q.12 hours on 11/06/2024 Tapered hydrocortisone to once daily on 11/13/2024 s/p PEG tube placement monitor LFT's Keep PT/INR therapeutic Hemoglobin stable, transfuse if HB 7 or less Continue tube feedings at 20cc/hr Decreased metoclopramide to 5 mg IV b.i.d. JAIDEN positive, outpatient follow up with GI recommended for further workup Thank you so much for the opportunity to consult on your patient. GI team will follow the patient. In case of any questions or concerns please feel free to reach out. Plan discussed with Dr. Anglin Plan discussed with: Other (RN) My Orders My Orders Orders - ETHAN SWAN RESIDENT Procedure Category Date Status Time Prothrombin Time W/ LAB 11/15/24 Logged INR 11:04 Gallbladder US 11/15/24 Taken 11:05 Nutritional PHA 11/15/24 In Process Supplements (Nepro 11:45 Dietary Evaluation Review Comments: 1) TF Jevity 1.2Cal @ 55 ml/hr. x 24hr along with Pro-stat 1 pk daily. Start @ 20ml/hr, increase 10ml/hr Q4H until goal is reached. TF @ goal volume provides 1684 kcal (100% energy needs), 88 gm protein (100% protein needs), 1065 ml free water. 2) Water flush 100ml Q4H if allowed, adjust PRN 3) Advance to cardiac diet as medically feasible 4) Monitor NPO status, lab values, wt trend, I/O Expected Outcomes/Goals: To meet >75% estimated needs within 7 days Lab values to improve Fu 2-3 days ETHAN SWAN RESIDENT Nov 15, 2024 12:22
[2024-11-15 12:45] LABS: INR 3.46 (0.9-1.15); Prothrombin Time 32.4 sec (9.3-11.8)
--- NOTE | 2024-11-15 12:54 | DVH ---
INDICATION: CHOLECYSTITIS TECHNIQUE: Multiple real-time sonographic images were obtained of the right upper quadrant. COMPARISON: US ABDOMEN LIMITED on DOS: 10/30/24, US LIVER on DOS: 10/10/24 FINDINGS: The liver demonstrates heterogeneous echotexture without focal mass lesions. The liver aric ures 14 cm. There is no intrahepatic or extrahepatic ductal dilatation. The common duct measures 0 .4 mm. Gallstones are noted. The gallbladder wall measures .2mm and is within normal limits. The right kidney measures 10 cm. The right kidney is normal in contour, size, and shape. The echog enicity is normal. There is no hydronephrosis. The pancreas is not well visualized due to overlying bowel gas. IMPRESSION: Gallstones are noted. Hepatic steatosis Trace ascites Trace bilateral pleural effusions. Hepatic cirrhosis.
--- NOTE | 2024-11-15 13:35 | DVHPN2 ---
Progress Note - Dictate Date Seen: Nov 15, 2024 Has the PT tested + for MRSA If YES, has PT been informed?: No Medical Necessity Reason Pt with a Central, PICC or Fol: No The following are medically ne: PICC Line, Cutler Catheter Reason for cutler catheter: Strict I&O vital signs Vital Sign Date Time Temp Pulse Resp B/P (MAP) Pulse Ox O2 Delivery O2 Flow Rate FiO2 11/15/24 10:56 118/57 11/15/24 10:00 30 11/15/24 10:00 18 100 Mechanical Ventilator+ 11/15/24 09:53 67 11/15/24 09:19 98.2 208.8 11/13/24 20:00 2 Total Intake and Output 11/14/24 11/14/24 11/15/24 15:00 23:00 07:00 Intake Total 117.5 ml 222.50 ml 355.00 ml Output Total 1850 ml 2150 ml Balance 117.5 ml -1627.50 ml -1795.00 ml medications Current Medications Medications Dose Ordered Sig/Liliam Route Start Time Stop Time Status Last Admin Dose Admin Amino Acids 0 ml @ 0 mls/hr PER PHARMACY IV 10/15/24 18:45 Cancel Dextrose 50 ml UD IV 10/16/24 09:30 Cancel Vancomycin HCl 0 ml @ 0 mls/hr UD IV 10/19/24 14:00 Cancel Metoprolol Tartrate 2.5 mg Q6HPRN PRN IV 10/31/24 09:15 Amino Acids 0 ml @ 0 mls/hr PER PHARMACY IV 11/04/24 22:00 Cancel Amino Acid Protein 30 ml DAILY PO 11/04/24 10:00 11/14/24 09:19 30 ML Pantoprazole Sodium 40 mg BID IV 11/09/24 22:00 11/15/24 10:54 40 MG Morphine Sulfate 4 mg Q4HPRN PRN IV 11/10/24 13:00 11/14/24 01:15 4 MG Acetaminophen/ Hydrocodone Bitart 1 tab Q4HPRN PRN GT 11/10/24 15:30 11/13/24 13:46 1 TAB Mexiletine HCl 150 mg TID GT 11/10/24 22:00 11/15/24 06:31 150 MG Fat Emulsion Intravenous 150 ml/Sodium Acetate 20 meq/Potassium Acetate 30 meq/ Potassium Phosphate 19.8 meq/Calcium Gluconate 2.3 meq/ Magnesium Sulfate 4 meq/ Multivitamins 10 ml/Chromium/ Copper/Manganese/ Zinc 1 ml/Amino Acids/Dextrose/ Purified Water 1,596.4462 ml @ 66 mls/hr [id number] IV 11/11/24 22:00 11/12/24 21:59 Cancel Apixaban 2.5 mg BID PO 11/13/24 22:00 11/15/24 10:54 2.5 MG Hydrocortisone Sodium Succinate 50 mg DAILY IV 11/14/24 10:00 11/15/24 10:54 50 MG Norepinephrine Bitartrate 250 ml @ 3.75 mls/hr Q24H IV 11/14/24 04:15 11/14/24 04:15 3.75 MLS/HR Midazolam HCl 50 ml @ 1 mls/hr Q24H IV 11/14/24 04:15 11/15/24 10:56 1 MLS/HR Cefepime HCl 50 ml @ 12.5 mls/hr Q8HR IV 11/14/24 14:00 11/15/24 06:31 12.5 MLS/HR Furosemide 40 mg BIDD IV 11/14/24 18:00 11/15/24 06:00 40 MG Phenylephrine HCl 250 ml @ 30 mls/hr Q8H20M IV 11/15/24 09:00 11/15/24 10:55 30 MLS/HR Propofol 100 ml @ 2.088 mls/ hr Q24H IV 11/15/24 11:30 Fentanyl Citrate 250 ml @ 2.5 mls/hr Q24H IV 11/15/24 11:45 Enteral Nutritional Formula 1,000 ml 30ML/HR GT 11/15/24 11:45 laboratory and microbiology Laboratory Tests 11/15/24 09:41 11/15/24 01:35 Test 11/15/24 09:41 Range/Units Serum Glucose 80 74-106 mg/dL Assessment/Plan impression s/p cardiac arrest VT CPR <5 min elevated troponin acute resp failure atelectases s/p PM pt seen and examined on ICU events pt re-intubated on mechanical ventilation ac volume control peep 5 Fi02=40% s/p bronch labs and imaging studies reviewed LFT's trending up management plan sedation as needed vent support abg and CXR daily re-start abx f up on cx de-escalate as appropriate monitor labs renal function daily abg and CXR dvt proph/on crit care time 35 min Dietary Evaluation Review Comments: 1) TF Jevity 1.2Cal @ 55 ml/hr. x 24hr along with Pro-stat 1 pk daily. Start @ 20ml/hr, increase 10ml/hr Q4H until goal is reached. TF @ goal volume provides 1684 kcal (100% energy needs), 88 gm protein (100% protein needs), 1065 ml free water. 2) Water flush 100ml Q4H if allowed, adjust PRN 3) Advance to cardiac diet as medically feasible 4) Monitor NPO status, lab values, wt trend, I/O Expected Outcomes/Goals: To meet >75% estimated needs within 7 days Lab values to improve Fu 2-3 days Plan discussed with: Other (Rn) BELLO ROTHMAN MD Nov 15, 2024 13:35
[2024-11-15] MEDS: fentaNYL Drip 2500mCg/250mlNS 250 ML IV SCH (14:12)
--- NOTE | 2024-11-15 15:56 | DVH ---
EXAM: CT HEAD WITHOUT CONTRAST INDICATION: Left arm weakness TECHNIQUE: CT of the head without intravenous contrast. Radiation Dose Information: CT Dose: CTDI volume is 48.84 mGy. Dose-length product is 944.8 mGy*cm The dose indicators for CT are the volume Computed Tomography (CT) Dose Index (CTDIvol) and the Dose Length Product (DLP), and are measured in units of mGy and mGy-cm, respectively. These indicators are not patient dose, but values generated from the CT scanner acquisition factors. The report includes radiation exposure data for exposures received during this examination. COMPARISON: CT STROKE CTH on DOS: 11/01/24, CT HEAD WITHOUT CONTRAST on DOS: 10/11/24, CT HEAD WITHOUT C ONTRAST on DOS: 10/07/24 FINDINGS: Endotracheal tube visualized. There is no evidence of acute intracranial hemorrhage, extra-axial collection, mass effect, midline s hift, herniation or hydrocephalus. The ventricles, sulci and cisterns are age appropriate. The smith-white differentiation is intact. Patchy periventricular and subcortical white matter hypoattenuation is nonspecific but may be related to small vessel ischemic disease. The visualized paranasal sinuses and mastoid air cells are clear. The surrounding soft tissues and osseous structures are unremarkable. IMPRESSION: 1. No acute intracranial abnormality. 2. No findings to suggest territorial ischemia.
--- NOTE | 2024-11-15 16:02 | DVHPN2 ---
Progress Note Date Seen: Nov 15, 2024 Has the PT tested + for MRSA If YES, has PT been informed?: No Medical Necessity Reason Pt with a Central, PICC or Fol: No The following are medically ne: PICC Line, Cutler Catheter Reason for cutler catheter: Strict I&O Subjective Review of Systems: RESPIRATORY:Abnormal Other Systems: Patient seen and examined by myself today in follow-up, patient remained intubated on ventilator Objective vital signs Vital Sign Date Time Temp Pulse Resp B/P (MAP) Pulse Ox O2 Delivery O2 Flow Rate FiO2 11/15/24 14:12 110/52 11/15/24 13:19 99.0 55 18 100 210.2 11/15/24 12:00 Mechanical Ventilator+ 30 30 11/13/24 20:00 2 Total Intake and Output 11/14/24 11/14/24 11/15/24 14:59 22:59 06:59 Intake Total 95.0 ml 176.25 ml 392.50 ml Output Total 1850 ml 2150 ml Balance 95.0 ml -1673.75 ml -1757.50 ml medications Current Medications Medications Dose Ordered Sig/Liliam Route Start Time Stop Time Status Last Admin Dose Admin Amino Acids 0 ml @ 0 mls/hr PER PHARMACY IV 10/15/24 18:45 Cancel Dextrose 50 ml UD IV 10/16/24 09:30 Cancel Vancomycin HCl 0 ml @ 0 mls/hr UD IV 10/19/24 14:00 Cancel Metoprolol Tartrate 2.5 mg Q6HPRN PRN IV 10/31/24 09:15 Amino Acids 0 ml @ 0 mls/hr PER PHARMACY IV 11/04/24 22:00 Cancel Amino Acid Protein 30 ml DAILY PO 11/04/24 10:00 11/14/24 09:19 30 ML Pantoprazole Sodium 40 mg BID IV 11/09/24 22:00 11/15/24 10:54 40 MG Morphine Sulfate 4 mg Q4HPRN PRN IV 11/10/24 13:00 11/14/24 01:15 4 MG Acetaminophen/ Hydrocodone Bitart 1 tab Q4HPRN PRN GT 11/10/24 15:30 11/13/24 13:46 1 TAB Mexiletine HCl 150 mg TID GT 11/10/24 22:00 11/15/24 14:11 150 MG Fat Emulsion Intravenous 150 ml/Sodium Acetate 20 meq/Potassium Acetate 30 meq/ Potassium Phosphate 19.8 meq/Calcium Gluconate 2.3 meq/ Magnesium Sulfate 4 meq/ Multivitamins 10 ml/Chromium/ Copper/Manganese/ Zinc 1 ml/Amino Acids/Dextrose/ Purified Water 1,596.4462 ml @ 66 mls/hr [id number] IV 11/11/24 22:00 11/12/24 21:59 Cancel Apixaban 2.5 mg BID PO 11/13/24 22:00 11/15/24 10:54 2.5 MG Hydrocortisone Sodium Succinate 50 mg DAILY IV 11/14/24 10:00 11/15/24 10:54 50 MG Cefepime HCl 50 ml @ 12.5 mls/hr Q8HR IV 11/14/24 14:00 11/15/24 14:11 12.5 MLS/HR Furosemide 40 mg BIDD IV 11/14/24 18:00 11/15/24 06:00 40 MG Phenylephrine HCl 250 ml @ 30 mls/hr Q8H20M IV 11/15/24 09:00 11/15/24 10:55 30 MLS/HR Propofol 100 ml @ 2.088 mls/ hr Q24H IV 11/15/24 11:30 Fentanyl Citrate 250 ml @ 2.5 mls/hr Q24H IV 11/15/24 11:45 11/15/24 14:12 2.5 MLS/HR Enteral Nutritional Formula 1,000 ml 30ML/HR GT 11/15/24 11:45 Purified Water 150 ml Q6HR GT 11/15/24 18:00 UNV Potassium Chloride 100 ml @ 50 mls/hr Q2H IV 11/15/24 15:45 11/15/24 19:44 UNV Examination: LUNGS:Normal, CVS:Normal, MSK:Normal laboratory and microbiology Laboratory Tests 11/15/24 09:41 11/15/24 01:35 Test 11/15/24 09:41 Range/Units Serum Glucose 80 74-106 mg/dL Microbiology Date/Time Source Procedure Growth Status 11/14/24 09:12 Sputum Gram Stain - Final Resulted 11/14/24 09:12 Sputum Respiratory Culture - Preliminary Resulted 11/14/24 08:50 Blood Blood Culture - Preliminary NO GROWTH AFTER 24 HOURS OF INCUBATION. Resulted 11/14/24 04:30 Nose MRSA Screen - Final Complete 10/20/24 01:03 Urine - Cutler Port Urine Culture - Final Yeast, not Ilda albicans Complete Problem List/Assessment/Plan Problem List/Assessment/Plan BARBIE-hemodynamic mediated Acute respiratory failure, patient intubated on ventilator Metabolic acidosis proteinuria Cardiac arrest status post V-tach chfref ef 15-20 VDRF Mild hypernatremia due to insensible water loss Hypokalemia Recommendations Kidney function is improving Increased urine output Cutler catheter Strict I&Os Free water down the NG tube KCL replacement We will continue to follow Plan discussed with: Other (Nurse) My Orders My Orders Orders - LEXIE SORIANO MD Procedure Category Date Status Time Free Water PHA 11/15/24 Logged 18:00 Potassium Chl PHA 11/15/24 Logged 20meq/100ml 15:45 Dietary Evaluation Review Comments: 1) TF Jevity 1.2Cal @ 55 ml/hr. x 24hr along with Pro-stat 1 pk daily. Start @ 20ml/hr, increase 10ml/hr Q4H until goal is reached. TF @ goal volume provides 1684 kcal (100% energy needs), 88 gm protein (100% protein needs), 1065 ml free water. 2) Water flush 100ml Q4H if allowed, adjust PRN 3) Advance to cardiac diet as medically feasible 4) Monitor NPO status, lab values, wt trend, I/O Expected Outcomes/Goals: To meet >75% estimated needs within 7 days Lab values to improve Fu 2-3 days LEXIE SORIANO MD Nov 15, 2024 16:02
[2024-11-15] MEDS: PROPOFOL 100 ML IV SCH (17:52)
[2024-11-15] MEDS: FREE WATER GT SCH (18:00)
[2024-11-16] VITALS (118 sets, daily range): BP systolic 81–130; BP diastolic 28–61; PULSE 54–66; RESP 17–46; TEMP 68.7–100.6; O2SAT 98–100
[2024-11-16 04:41] LABS: Hematocrit 34.7 % (36.0-46.0); Hemoglobin 11.4 g/dL (12.2-16.2); Mean Corpuscular Hemoglobin 30.5 pg (28.0-32.0); Mean Corpuscular Volume 92.9 fL (80.0-100.0); Nucleated Red Blood Cells % 0.9 %
[2024-11-16 04:57] LABS: Anion Gap 14 (5-15); BUN/Creatinine Ratio 48.5 (10.0-20.0); Carbon Dioxide 29 mmol/L (20-31); Magnesium 2.0 mg/dL (1.6-2.6)
[2024-11-16 04:58] LABS: Albumin 2.8 g/dL (3.2-4.8); Alkaline Phosphatase 314 U/L (46-116); Bilirubin, Total 5.4 mg/dL (0.2-1.0); Blood Urea Nitrogen 33 mg/dL (9-23); Calcium 8.3 mg/dL (8.7-10.4); Chloride 107 mmol/L (98-107); Glucose 63 mg/dL (74-106); Potassium 3.1 mmol/L (3.5-5.1); Sodium 150 mmol/L (136-145); Total Protein 5.0 g/dL (5.7-8.2)
[2024-11-16 05:44] LABS: Alanine Aminotransferase > 6000 U/L (7-40)
--- NOTE | 2024-11-16 05:52 | DVH ---
CHEST RADIOGRAPH Indication: ETT PLACEMENT Technique: Single frontal view of the chest was obtained COMPARISON: XY CHEST PORTABLE on DOS: 11/15/24, XY CHEST XRAY 1 VIEW on DOS: 11/14/24, XY CHEST PORTABL E on DOS: 11/14/24, XY CHEST XRAY 1 VIEW on DOS: 11/05/24, XY CHEST XRAY 1 VIEW on DOS: 11/01/24 FINDINGS: Lines and Tubes: Endotracheal tube in satisfactory position. Median sternotomy. Left chest wall AIC D. Lungs: Clear Pleura: No effusion. No pneumothorax. Cardiomediastinal contours: Cardiomegaly Bones: Unremarkable IMPRESSION: No significant interval change
[2024-11-16] MEDS: POTASSIUM CHL 20MEQ/100ML 100 ML IV SCH (06:53)
[2024-11-16 06:57] LABS: Base Excess 5.6 mmol/L (-2.0-3.0)
--- NOTE | 2024-11-16 09:41 | DVHPN2 ---
Progress Note Date Seen: Nov 16, 2024 Resident Creating Document: ETHAN SWAN RESIDENT Has the PT tested + for MRSA If YES, has PT been informed?: No Medical Necessity Reason Pt with a Central, PICC or Fol: No The following are medically ne: PICC Line, Cutler Catheter Reason for cutler catheter: Strict I&O Subjective Review of Systems Patient seen and examined at bedside Last BM 11/14/2024 Hypoactive bowel sounds 250 cc gastric residuals this a.m. Objective vital signs Vital Sign Date Time Temp Pulse Resp B/P (MAP) Pulse Ox O2 Delivery O2 Flow Rate FiO2 11/16/24 07:35 98.4 55 18 100 209.1 11/16/24 07:23 30 11/16/24 06:00 Mechanical Ventilator+ Total Intake and Output 11/15/24 11/15/24 11/16/24 15:00 23:00 07:00 Intake Total 271.75 ml 653.0 ml 775.5 ml Output Total 3000 ml 1750 ml Balance 271.75 ml -2347.0 ml -974.5 ml medications Current Medications Medications Dose Ordered Sig/Liliam Route Start Time Stop Time Status Last Admin Dose Admin Amino Acids 0 ml @ 0 mls/hr PER PHARMACY IV 10/15/24 18:45 Cancel Dextrose 50 ml UD IV 10/16/24 09:30 Cancel Vancomycin HCl 0 ml @ 0 mls/hr UD IV 10/19/24 14:00 Cancel Metoprolol Tartrate 2.5 mg Q6HPRN PRN IV 10/31/24 09:15 Amino Acids 0 ml @ 0 mls/hr PER PHARMACY IV 11/04/24 22:00 Cancel Amino Acid Protein 30 ml DAILY PO 11/04/24 10:00 11/14/24 09:19 30 ML Pantoprazole Sodium 40 mg BID IV 11/09/24 22:00 11/15/24 22:11 40 MG Morphine Sulfate 4 mg Q4HPRN PRN IV 11/10/24 13:00 11/14/24 01:15 4 MG Acetaminophen/ Hydrocodone Bitart 1 tab Q4HPRN PRN GT 11/10/24 15:30 11/13/24 13:46 1 TAB Mexiletine HCl 150 mg TID GT 11/10/24 22:00 11/16/24 06:00 150 MG Fat Emulsion Intravenous 150 ml/Sodium Acetate 20 meq/Potassium Acetate 30 meq/ Potassium Phosphate 19.8 meq/Calcium Gluconate 2.3 meq/ Magnesium Sulfate 4 meq/ Multivitamins 10 ml/Chromium/ Copper/Manganese/ Zinc 1 ml/Amino Acids/Dextrose/ Purified Water 1,596.4462 ml @ 66 mls/hr [id number] IV 11/11/24 22:00 11/12/24 21:59 Cancel Apixaban 2.5 mg BID PO 11/13/24 22:00 11/15/24 22:12 2.5 MG Hydrocortisone Sodium Succinate 50 mg DAILY IV 11/14/24 10:00 11/15/24 10:54 50 MG Cefepime HCl 50 ml @ 12.5 mls/hr Q8HR IV 11/14/24 14:00 11/16/24 06:00 12.5 MLS/HR Furosemide 40 mg BIDD IV 11/14/24 18:00 11/16/24 06:00 40 MG Phenylephrine HCl 250 ml @ 30 mls/hr Q8H20M IV 11/15/24 09:00 11/15/24 18:23 30 MLS/HR Propofol 100 ml @ 2.088 mls/ hr Q24H IV 11/15/24 11:30 Fentanyl Citrate 250 ml @ 2.5 mls/hr Q24H IV 11/15/24 11:45 11/15/24 14:12 2.5 MLS/HR Enteral Nutritional Formula 1,000 ml 30ML/HR GT 11/15/24 11:45 Purified Water 150 ml Q6HR GT 11/15/24 18:00 11/16/24 06:00 150 ML Potassium Chloride 100 ml @ 50 mls/hr Q2H IV 11/16/24 06:30 11/16/24 10:29 11/16/24 08:01 50 MLS/HR Examination General Appearance: sedated, intubated Head Exam: Normal inspection. Constricted equal and reactive pupils Neck Exam: Normal inspection. Non-tender. Normal alignment Pulmonary/Respiratory: Chest non-tender. Trace crackles Abdominal Exam: Normal bowel sounds. Soft. Nontender Skin Exam: Normal inspection. Normal color. Warm. Dry laboratory and microbiology Laboratory Tests 11/16/24 04:28 Test 11/16/24 04:28 Range/Units Serum Glucose 63 L 74-106 mg/dL Microbiology Date/Time Source Procedure Growth Status 11/14/24 09:12 Sputum Gram Stain - Final Resulted 11/14/24 09:12 Sputum Respiratory Culture - Preliminary Resulted 11/14/24 08:50 Blood Blood Culture - Preliminary NO GROWTH AFTER 48 HOURS OF INCUBATION. Resulted 11/14/24 04:30 Nose MRSA Screen - Final Complete 10/20/24 01:03 Urine - Cutler Port Urine Culture - Final Yeast, not Ilda albicans Complete Labs and/or images reviewed: Labs reviewed by me, Image(s) reviewed by me Problem List/Assessment/Plan Problem List/Assessment/Plan Acute hepatocellular injury likely shock liver Hepatic cirrhosis? Coagulopathy due to above Ventricular fibrillation S/p cardiopulmonary arrest with shock Heart failure with reduced ejection fraction 15-20% Metabolic versus hypoxic encephalopathy Cholelithiasis without acute inflammation Nonalcoholic fatty liver disease with steatohepatitis Community-acquired pneumonia growing Enterobacter Aspiration pnemonia? sepsis Plan: IV vitamin K once daily for 3 days PT/INR, ammonia continue antibiotics, consider anaerobic coverage consider MRCP once stable Tapered hydrocortisone to q.12 hours on 11/06/2024 Tapered hydrocortisone to once daily on 11/13/2024 s/p PEG tube placement monitor LFT's Keep PT/INR therapeutic Hemoglobin stable, transfuse if HB 7 or less Continue tube feedings at 20cc/hr Decreased metoclopramide to 5 mg IV b.i.d. JAIDEN positive, outpatient follow up with GI recommended for further workup Thank you so much for the opportunity to consult on your patient. GI team will follow the patient. In case of any questions or concerns please feel free to reach out. Plan discussed with Dr. Anglin Plan discussed with: Other (RN) My Orders My Orders Orders - ETHAN SWAN RESIDENT Procedure Category Date Status Time Gallbladder US 11/15/24 Resulted 11:05 Nutritional PHA 11/15/24 In Process Supplements (Nepro 11:45 Dietary Evaluation Review Comments: 1) TF Jevity 1.2Cal @ 55 ml/hr. x 24hr along with Pro-stat 1 pk daily. Start @ 20ml/hr, increase 10ml/hr Q4H until goal is reached. TF @ goal volume provides 1684 kcal (100% energy needs), 88 gm protein (100% protein needs), 1065 ml free water. 2) Water flush 100ml Q4H if allowed, adjust PRN 3) Advance to cardiac diet as medically feasible 4) Monitor NPO status, lab values, wt trend, I/O Expected Outcomes/Goals: To meet >75% estimated needs within 7 days Lab values to improve Fu 2-3 days ETHAN SWAN RESIDENT Nov 16, 2024 09:41
--- NOTE | 2024-11-16 10:13 | DVHPN2 ---
Progress Note - Dictate Date Seen: Nov 16, 2024 Has the PT tested + for MRSA If YES, has PT been informed?: No Medical Necessity Reason Pt with a Central, PICC or Fol: No The following are medically ne: PICC Line, Cutler Catheter Reason for cutler catheter: Strict I&O vital signs Vital Sign Date Time Temp Pulse Resp B/P (MAP) Pulse Ox O2 Delivery O2 Flow Rate FiO2 11/16/24 09:43 57 18 106/43 (64) 100 30 11/16/24 07:35 98.4 209.1 11/16/24 06:00 Mechanical Ventilator+ Total Intake and Output 11/15/24 11/15/24 11/16/24 15:00 23:00 07:00 Intake Total 271.75 ml 653.0 ml 775.5 ml Output Total 3000 ml 1750 ml Balance 271.75 ml -2347.0 ml -974.5 ml medications Current Medications Medications Dose Ordered Sig/Liliam Route Start Time Stop Time Status Last Admin Dose Admin Amino Acids 0 ml @ 0 mls/hr PER PHARMACY IV 10/15/24 18:45 Cancel Dextrose 50 ml UD IV 10/16/24 09:30 Cancel Vancomycin HCl 0 ml @ 0 mls/hr UD IV 10/19/24 14:00 Cancel Metoprolol Tartrate 2.5 mg Q6HPRN PRN IV 10/31/24 09:15 Amino Acids 0 ml @ 0 mls/hr PER PHARMACY IV 11/04/24 22:00 Cancel Amino Acid Protein 30 ml DAILY PO 11/04/24 10:00 11/14/24 09:19 30 ML Pantoprazole Sodium 40 mg BID IV 11/09/24 22:00 11/15/24 22:11 40 MG Morphine Sulfate 4 mg Q4HPRN PRN IV 11/10/24 13:00 11/14/24 01:15 4 MG Acetaminophen/ Hydrocodone Bitart 1 tab Q4HPRN PRN GT 11/10/24 15:30 11/13/24 13:46 1 TAB Mexiletine HCl 150 mg TID GT 11/10/24 22:00 11/16/24 06:00 150 MG Fat Emulsion Intravenous 150 ml/Sodium Acetate 20 meq/Potassium Acetate 30 meq/ Potassium Phosphate 19.8 meq/Calcium Gluconate 2.3 meq/ Magnesium Sulfate 4 meq/ Multivitamins 10 ml/Chromium/ Copper/Manganese/ Zinc 1 ml/Amino Acids/Dextrose/ Purified Water 1,596.4462 ml @ 66 mls/hr [id number] IV 11/11/24 22:00 11/12/24 21:59 Cancel Apixaban 2.5 mg BID PO 11/13/24 22:00 11/15/24 22:12 2.5 MG Hydrocortisone Sodium Succinate 50 mg DAILY IV 11/14/24 10:00 11/15/24 10:54 50 MG Cefepime HCl 50 ml @ 12.5 mls/hr Q8HR IV 11/14/24 14:00 11/16/24 06:00 12.5 MLS/HR Furosemide 40 mg BIDD IV 11/14/24 18:00 11/16/24 06:00 40 MG Phenylephrine HCl 250 ml @ 30 mls/hr Q8H20M IV 11/15/24 09:00 11/15/24 18:23 30 MLS/HR Propofol 100 ml @ 2.088 mls/ hr Q24H IV 11/15/24 11:30 Fentanyl Citrate 250 ml @ 2.5 mls/hr Q24H IV 11/15/24 11:45 11/15/24 14:12 2.5 MLS/HR Enteral Nutritional Formula 1,000 ml 30ML/HR GT 11/15/24 11:45 Purified Water 150 ml Q6HR GT 11/15/24 18:00 11/16/24 06:00 150 ML Potassium Chloride 100 ml @ 50 mls/hr Q2H IV 11/16/24 06:30 11/16/24 10:29 11/16/24 08:01 50 MLS/HR laboratory and microbiology Laboratory Tests 11/16/24 04:28 Test 11/16/24 04:28 Range/Units Serum Glucose 63 L 74-106 mg/dL Assessment/Plan Still in ICU, intubated and on pressure support. No Arrhythmia identified during this episodes. Patient is a 54-year-old female who was brought to the hospital for witnessed syncope. She is intubated and is being managed in ICU. Information was obtained by reviewing the chart and communicating with patient's son (over the phone). Family recognized witnessed syncope and started CPR and called EMS. Reportedly, EMS found the patient in ventricular fibrillation and shocked the patient and brought the patient to the hospital. Patient was intubated in emergency room and transferred to ICU. Patient was on amiodarone drip. Later the patient had ventricular tachycardia (Systane). High sensitive troponin had been minimally/flatly elevated. Presentation was not in favor of acute coronary syndrome. Cardiology is involved for cardiac aspects of care. Intubated. On Vent. No JVD. Mucosa pale. No carotid bruit. Scattered rhonchi in the lungs is heard. Cardiac: Regular, no thrill. Systolic murmur 2/6 in apex is heard. Abdomen is soft. 3+ edema in extremities. Past medical history as per son: Congenital heart disease, status post bypass WBC: 14.5 - 11.9 - 18.8 - 20.0 - 21.2 - 14.3 - 10.3 - 8.9 - 9.2 - 11.1 - 12.1 - 10.8 - 12.0 - 9.9 - 15.4 - 14.8 - 12.1 - 10.5 - 5.8 - 5.3 - 4.2 - 5.8 - 4.1 - 7.0 - 9.3 - 8.3 - 11.5 - 8.4 - 8.4 - 5.4 - 5.7 - 8.4 - 7.4 - 6.2 - 6.7 - 13.9 - 11.7 - 10.1 Hemoglobin: 10.1 - 9.6 - 9.2 - 8.8 - 8.7 - 8.0 - 8.3 - 8.5 - 7.8 - 10.2 - 10.7 - 9.9 - 9.7 - 9.3 - 9.3 - 8.6 - 8.1 - 7.4 - 7.5 - 7.4 - 7.5 - 7.2 - 7.7 - 7.0 - (post PRBC transfusion) 10.4 - 10 - 9.5 - 10.0 - 9.2 - 9.8 -9.6 - 9.7 - 10.2 - 10.6 - 9.7 - 9.7 - 10.5 - 10.0 - 11.4 Creatinine: 0.95 - 0.93 - 0.87 - 0.83 - 0.83 - 0.76 - 0.68 - 0.72 - 0.79 - 0.76 - 0.80 - 0.84 - 0.61 - 0.65 - 0.74 - 0.64 - 0.73 - 0.82 - 0.88 - 1.03 - 0.99 - 0.85 - 0.87 - 0.79 - 1.12 - 1.15 - 1.04 - 0.96 - 0.94 - 0.93 - 0.78 - 0.71 - 0.68 - 0.61 - 0.59 - 0.49 - 0.39 - 0.54 - 0.48 - 0.76 - 0.93 - 0.78 - 0 0.78 - 0.68 Potassium: 3.4 - 4.0 - 4.6 - 3.5 - 3.3 - 4.1 - 3.7 - 3.2 - 3.7 - 4.0 - 3.2 - 3.4 - 3.9 - 4.2 - 3.3 - 3.8 - 3.6 - 3.4 - 4.2 - 3.8 - 4.5 - 4.1 - 3.5 - 4.2 - 3.3 - 2.6 - 3.5 - 3.8 - 2.4 - 2.9 - 4.6 - 2.8 - 4.8 - 4.9 - 3.4 - 3.1 - 3.7 - 4.4 - 3.7 - 3.7 - 3.1 - 3.0 - 3.8 - 4.4 - 3.8 - 4.1 - 4.3 - 3.9 - 4.4 - 6.1 - 4.6 - 3.0 - 3.6 - 3.1 Magnesium: 2.0 - 1.6 - 2.0 - 3.0 - 1.5 - 1.9 - 2.1 - 1.8 - 2.0 - 1.9 - 1.9 - 2.6 - 2.0 - 1.8 - 1.6 - 2.0 - 2.2 - 1.9 - 2.3 - 2.2 - 2.2 - 2.1 - 2.1 - 1.9 2.7 - 2.6 - 2.3 - 2.4 - 2.5 - 2.3 - 2.5 - 2.3 - 2.3 - 2.4 - 2.1 - 1.9 - 2.2 - 2.1 - 2.0 - 2.4 - 2.2 - 2.0 - 2.0 Troponin (high sensitive): 141 - 138 - 117 BNP: 457.16 - 1073.91 - 928.14 AST/ALT: 32/11 - 19/13 - 538/168 - 293/152 - 131/130 - 78/94 - 68/74 - 48/57 - 27/38 - 15/23 - 20/18 - 23/17 - 29/16 - 27/13 - 34/17 - 73/49 - 41/43 - 30/47 - 30/42 - 29/42 - 17/27 - 160/87 - 900/478 - 986/571 - 382/436 - 110/244 - 42/170 - 22/113 - 16/77 - 15/59 - 19/50 - 20/41 - 16/32 - 17/30 - 14/25 - 25/38 - - /2337 - >6000/>6000 - 4665/>6000 - 2123/>6000 Digoxin level: 2.83 - 1.25 - 0.98 UDS: non-revealing Chest x-ray revealed: Lines and Tubes: Endotracheal tube tip projects approximately 1.4 cm above the level of the tyler. Enteric catheter courses below the lateral of the diaphragm and terminates beyond the inferior margin of the image. Right internal jugular central venous catheter terminates within the distal superior vena cava. Lungs: Moderate diffuse increased prominence of the pulmonary vasculature without evidence of focal consolidation. Pleura: No effusion. No pneumothorax. Cardiomediastinal contours: Cardiomegaly. Bones: Unremarkable IMPRESSION: 1. Cardiomegaly and diffuse increased prominence of the pulmonary vasculature. 2. Lines and tubes as above. Repeat chest x-ray revealed: IMPRESSION: 1. Endotracheal tube tip 1.6 cm above the tyler; consider 2 cm retraction 2. Mild pulmonary vascular congestion. Moderate cardiomegaly. Repeat chest xry revealed: IMPRESSION: Endotracheal tube tip 1.6 cm above the tyler; consider 2 cm retraction Mild pulmonary vascular congestion. Moderate cardiomegaly. Repeat chest xry revealed: IMPRESSION: 1. Stable cardiomegaly, small left pleural effusion and mild diffuse increased prominence of the pulmonary vasculature. 2. Repositioned endotracheal tube as above. Remaining lines and tubes unchanged. Repeat chest xry revealed: IMPRESSION: 1. Cardiomegaly, stable diffuse increased prominence of the pulmonary vasculature and small bilateral pleural effusions. 2. Slight interval advancement of endotracheal tube as above. Remaining lines and tubes unchanged. Repeat chest xry revealed: IMPRESSION: 1. Slight interval decrease in diffuse increased prominence of the pulmonary vasculature. 2. Stable cardiomegaly and small left pleural effusion. 3. Lines and tubes unchanged. Repeat chest xry revealed: IMPRESSION: 1. Cardiomegaly and small left pleural effusion. 2. Lines and tubes unchanged. Repeat chest xry revealed: IMPRESSION: Stable lines and tubes. Similar lung aeration. Repeat chest xry revealed: IMPRESSION: Cardiomegaly and small left pleural effusion. Lines and tubes unchanged. Repeat chest xry revealed: IMPRESSION: Placement of a cardiac pacer, no pneumothorax is seen. Stable lines and tubes. Repeat chest xry revealed: IMPRESSION: 1. Worsening mixed opacities in the right lower lung. No other significant change from the previous study. Stable support devices. Repeat chest xry revealed: Heart is prominent in size with postsurgical changes, median sternotomy wires, and a single lead left cardiac defibrillator. Support lines and tubes appear unchanged in satisfactory in position. No sizable effusion or pneumothorax. Mild pulmonary vascular congestion. No significant interval change. Repeat chest xry revealed: IMPRESSION: 1. No significant change from the previous study. Stable support devices. Similar findings of heart failure including left pleural effusion. Repeat chest xry revealed: IMPRESSION: 1. No significant change from the previous study. Stable support devices. Similar findings of heart failure including trace left pleural effusion. Repeat chest xry revealed: Lines and Tubes: Unchanged. Left anterior chest wall cardiac pacing device. Lungs: Clear Pleura: No effusion. No pneumothorax. Cardiomediastinal contours: Cardiomegaly. Bones: Unremarkable IMPRESSION: 1. Cardiomegaly. 2. Lines and tubes unchanged. Repeat chest xry revealed: IMPRESSION: Lines and tubes in satisfactory position. No significant interval change. Repeat chest xry revealed: Lines and Tubes: ET tube and NG tube removed. Lungs: Congestion Pleura: No effusion. No pneumothorax. Cardiomediastinal contours: Cardiomegaly Bones: Unremarkable IMPRESSION: 1. Cardiomegaly with CHF. Repeat chest xry revealed: IMPRESSION: 1. Cardiomegaly. 2. Patchy bilateral airspace disease. Repeat chest xry revealed: FINDINGS: Lines and Tubes: None. Left anterior chest wall cardiac pacing device. Lungs: Extensive multifocal bilateral pulmonary airspace disease in a predominantly perihilar and bibasilar distribution with consolidative features. Pleura: No effusion. No pneumothorax. Cardiomediastinal contours: Poorly evaluated secondary to extensive bilateral infiltrate. Bones: Unremarkable IMPRESSION: 1. Extensive multifocal bilateral pulmonary airspace disease in a predominantly perihilar and bibasilar distribution with consolidative features. Repeat chest xry revealed: IMPRESSION: 1. Status post interval intubation. Endotracheal tube tip projects approximately 2.4 cm above the level of the tyler. 2. Grossly stable appearing moderate patchy multifocal bilateral pulmonary airspace disease with consolidative features. 3. Cardiomegaly. Repeat chest xry revealed: IMPRESSION: No significant interval change. Repeat chest xry revealed: IMPRESSION: No significant interval change Gall Bladder Ultrasound revealed: IMPRESSION: Gallstones are noted. Hepatic steatosis Trace ascites Trace bilateral pleural effusions. Hepatic cirrhosis. Liver Ultrasound revealed: Hepatic steatosis. Trace right pleural effusion. Trace ascites Gallstones Bladder ultrasound revealed: IMPRESSION: 1. Cutler catheter in the bladder in the bladder is decompressed. Repeat Bladder Ultrasound revealed: Urinary bladder is unremarkable with prevoid volume of 29 mL. Urinary bladder wall measures 1.5 mm. Cutler catheter is noted. KUB revealed: IMPRESSION: Nonobstructive bowel gas pattern. Nasogastric tube tip in the stomach. Large stool burden. Repeat KUB revealed: Right lower extremity PICC line with tip projecting over the expected region of the intrahepatic IVC. Nasogastric tube projecting towards the distal stomach. Nonspecific bowel gas pattern. Cardiomegaly and left basilar airspace opacities, incompletely characterized. Atherosclerotic calcification disease. Repeat KUB revealed: IMPRESSION: 1. Nonspecific nonobstructive bowel gas pattern. 2. Gastrostomy tube projects over the midportion of the left hemiabdomen. 3. Right femoral approach central venous catheter as described above. Left upper ext arterial duplex: IMPRESSION: No hemodynamically significant stenosis based on peak systolic velocity criteria. Left lower ext arterial duplex: IMPRESSION: There is no evidence for peripheral vascular insufficiency in the left lower extremity. No significant focal stenosis is identified. Liver Ultrasound revealed: Hepatic steatosis. Hepatomegaly. Cholelithiasis. CT of the head revealed: IMPRESSION: No acute intracranial abnormality. Repeat CT of head revealed: IMPRESSION: No acute intracranial abnormality. Repeat CT of Head revealed: IMPRESSION: No acute intracranial abnormality. Repeat CT of head revealed: IMPRESSION: 1. No acute intracranial abnormality. 2. No findings to suggest territorial ischemia. Echocardiogram reported: lvef 15-20% dilated LV severe global dysfunction mild RV dysfunction biatrial enlargement mild moderate MAC, moderate mitral regurg mild to moderate aortic regug (images of echo reviewed and questioned presence of mitral ring and also some component (moderate of Mitral stenosis) EKG revealed sinus rhythm Telemetry revealed occasions of atrial fibrillation. There was occasional sustained ventricular tachycardia. EMS tele monitor revealed ventricular fibrillation for which the patient was shocked. Has remained sinus rhythm. Later with A-fib with MVR LHC revealed: Patent R[place]D to LAD; Patent SVG to obtuse marginal; LVEF of 20% with increased EDP; Proximal disease in LAD/LCX RICHIE was performed: Consistent with severely reduced LVEF. Consistent with previously implanted Mitral ring, Up to moderate Mitral stenosis/Mitral Regurgitation and also Moderate Aortic insufficiency. Patient is a 54-year-old female who presented with witnessed syncope. She was found to have ventricular fibrillation for which was shocked. Later had repeated episode of sustained ventricular tachycardia. Patient has been kept in ICU. Does have baseline history of coronary artery disease for which has had bypass surgery. Left heart catheterization was performed which revealed patent R[place]D and patent SVG. ACS is not considered at this point. It is of note that the patient's echocardiogram reveals significantly use systolic function. Valvular heart disease is considered. Findings are in favor of previously implanted mitral ring. By reviewing the echo images, component of up to moderate mitral stenosis could not be ruled out. LHC was performed that ruled out any active specific ischemia as an etiology for presentation. Is off Amiodarone for abnormal LFT. Being followed by Nephrology / Pulmonary / Neurology / GI ID. Tele has remained sinus rhythm. Had episode of a-fib with RVR. Was loaded with Digoxin. Dig level was performed at wrong timing (only 5 hours after the last Dig given). Dig toxicity is not considered. Patient is back to normal sinus rhythm. Has good kidney function. Repeat Dig level is acceptable level. s/p ICD implantation by EP. Intubated, later extubated. s/p PEG. Later had respiratory failure and was taken back to ICU. Imaging question pneumonia (can it be aspiration?). Eventhough repeat BNP has not increased (decreased somehow), patient does have peripheral edema and component of acute on chronic Systolic heart failure could also contribute to respiratory failure. The site of ICD implantation was reviewed by EP (Dr Armstrong on 05/13/2024): healing well (personal communication). Had repeat respiratory failure, back in ICU and intubated. Abnormal LFT. Found to have gall stone and Liver cirrhosis Syncope V-fib s/p shock Sustained V-tach Paroxysmal A-fib VHD, s/p Mitral ring Systolic heart failure Abnormal LFT, at a point resolved, later appeared again s/p ICD (Biotronik) implantation by EP (Dr Armstrong) s/p PRBC transfusion for significant anemia Hepatic Steatosis Gallstones Failed Swallowing s/p PEG Acute respiratory failure Acute on chronic systolic heart failure Gallstone Liver cirrhosis Cardiac suggestion for management: Manage in ICU IV diuresis Follow up electrolytes and kidney function test and correct abnormalities Full anticoagulation (a-fib with high CHADS-Vasc score). s/p ICD implantation. On Eliquis On Mexiletine On Levo-Phed: keep MAP above 65 (for now off pressure support and tolerating) Was on Metoprolol to decrease risk of Vtach (as patient has ICD with bradycardia protection: may continue metoprolol in case of bradycardia, but hold: if hypotensive). For now will stop/hold Metoprolol May consider/add Esmolol for PVC/Vtach (if needed) s/p ICD (Biotronik) implantation by EP Eliquis: 2.5 mg BID s/p PEG Pulmonary Follow up GI follow up Management of repeat respiratory failure, pneumonia as per primary team/pulmonary Provide previous medical records from reaching out to previous hospitals in [facility]... Further evaluation and management depends on the above and clinical course. A total of 75 minutes was spent reviewing the patient record, examining the patient, making a diagnostic and therapeutic plan, discussing this plan with medical personnel, following up on diagnostic studies and following the patient for clinical stability excluding any and all procedures. At least 50% of this time was spent in direct, [id number] contact. Thank you for allowing me to participate in this patient's care. Further recommendations will depend on patient's clinical course. Please do not hesitate to contact me if you have any questions or concerns. This medical document was created using electronic medical record system with [employer] dictation system. Although this document has been carefully reviewed, there may still be some phonetic and typographical errors. These areas are purely typographical due to the imperfection of the software programs, and do not reflect any compromise in the patient's medical care. Dietary Evaluation Review Comments: 1) TF Jevity 1.2Cal @ 55 ml/hr. x 24hr along with Pro-stat 1 pk daily. Start @ 20ml/hr, increase 10ml/hr Q4H until goal is reached. TF @ goal volume provides 1684 kcal (100% energy needs), 88 gm protein (100% protein needs), 1065 ml free water. 2) Water flush 100ml Q4H if allowed, adjust PRN 3) Advance to cardiac diet as medically feasible 4) Monitor NPO status, lab values, wt trend, I/O Expected Outcomes/Goals: To meet >75% estimated needs within 7 days Lab values to improve Fu 2-3 days Plan discussed with: Other (nurse) CORDELL VERA MD Nov 16, 2024 10:13
--- NOTE | 2024-11-16 13:30 | DVHPN2 ---
Progress Note - Dictate Date Seen: Nov 16, 2024 Has the PT tested + for MRSA If YES, has PT been informed?: No Medical Necessity Reason Pt with a Central, PICC or Fol: No The following are medically ne: PICC Line, Cutler Catheter Reason for cutler catheter: Strict I&O vital signs Vital Sign Date Time Temp Pulse Resp B/P (MAP) Pulse Ox O2 Delivery O2 Flow Rate FiO2 11/16/24 12:00 18 100 Mechanical Ventilator+ 30 30 11/16/24 12:00 60 11/16/24 11:56 117/48 11/16/24 07:49 98.4 209.1 Total Intake and Output 11/15/24 11/15/24 11/16/24 15:00 23:00 07:00 Intake Total 271.75 ml 653.0 ml 775.5 ml Output Total 3000 ml 1750 ml Balance 271.75 ml -2347.0 ml -974.5 ml medications Current Medications Medications Dose Ordered Sig/Liliam Route Start Time Stop Time Status Last Admin Dose Admin Amino Acids 0 ml @ 0 mls/hr PER PHARMACY IV 10/15/24 18:45 Cancel Dextrose 50 ml UD IV 10/16/24 09:30 Cancel Vancomycin HCl 0 ml @ 0 mls/hr UD IV 10/19/24 14:00 Cancel Metoprolol Tartrate 2.5 mg Q6HPRN PRN IV 10/31/24 09:15 Amino Acids 0 ml @ 0 mls/hr PER PHARMACY IV 11/04/24 22:00 Cancel Amino Acid Protein 30 ml DAILY PO 11/04/24 10:00 11/16/24 11:57 30 ML Pantoprazole Sodium 40 mg BID IV 11/09/24 22:00 11/16/24 11:57 40 MG Morphine Sulfate 4 mg Q4HPRN PRN IV 11/10/24 13:00 11/14/24 01:15 4 MG Acetaminophen/ Hydrocodone Bitart 1 tab Q4HPRN PRN GT 11/10/24 15:30 11/13/24 13:46 1 TAB Mexiletine HCl 150 mg TID GT 11/10/24 22:00 11/16/24 06:00 150 MG Fat Emulsion Intravenous 150 ml/Sodium Acetate 20 meq/Potassium Acetate 30 meq/ Potassium Phosphate 19.8 meq/Calcium Gluconate 2.3 meq/ Magnesium Sulfate 4 meq/ Multivitamins 10 ml/Chromium/ Copper/Manganese/ Zinc 1 ml/Amino Acids/Dextrose/ Purified Water 1,596.4462 ml @ 66 mls/hr [id number] IV 11/11/24 22:00 11/12/24 21:59 Cancel Apixaban 2.5 mg BID PO 11/13/24 22:00 11/16/24 11:57 2.5 MG Hydrocortisone Sodium Succinate 50 mg DAILY IV 11/14/24 10:00 11/16/24 11:57 50 MG Cefepime HCl 50 ml @ 12.5 mls/hr Q8HR IV 11/14/24 14:00 11/16/24 06:00 12.5 MLS/HR Furosemide 40 mg BIDD IV 11/14/24 18:00 11/16/24 06:00 40 MG Phenylephrine HCl 250 ml @ 30 mls/hr Q8H20M IV 11/15/24 09:00 11/16/24 11:56 30 MLS/HR Propofol 100 ml @ 2.088 mls/ hr Q24H IV 11/15/24 11:30 Fentanyl Citrate 250 ml @ 2.5 mls/hr Q24H IV 11/15/24 11:45 11/15/24 14:12 2.5 MLS/HR Enteral Nutritional Formula 1,000 ml 30ML/HR GT 11/15/24 11:45 Purified Water 150 ml Q6HR GT 11/15/24 18:00 11/16/24 11:58 150 ML objective General Appearance: no distress HEENT: EOMI, PERRLA, normal external inspect of ears, no icterus, no nasal drainage Neck: no carotid bruit, no jugular venous distention (JVD), no lymphadenopathy Chest: normal thorax Respiratory: Intubated, clear to auscultation, normal air movement Cardiovascular: regular rate and rhythm, no diastolic murmur, no jugular venous distention (JVD), no rub, no systolic murmur Abdominal: soft, no hepatomegaly, no mass, no splenomegaly, no tenderness Genitourinary: grossly normal external Musculoskeletal: no joint tenderness, no swelling Extremities: normal pulses, no calf tenderness, no clubbing, no cyanosis, no edema Skin: no bruising, no jaundice, no rash Neurological: No focal deficit laboratory and microbiology Laboratory Tests 11/16/24 04:28 Test 11/16/24 04:28 Range/Units Serum Glucose 63 L 74-106 mg/dL Problem List Cardiac Arrest with Ventricular Fibrillation Assessment: Patient experienced cardiac arrest with ventricular fibrillation on 10/07/24, witnessed by family members who initiated CPR. EMS found the patient in ventricular fibrillation and administered shock therapy. Rhythm strip analysis confirmed ventricular fibrillation. Patient required intubation and sedation upon ED arrival. Currently admitted to ICU for close observation. Cardiology has been consulted and plans for AICD placement, likely on Tuesday. Infectious disease clearance has been obtained for the AICD procedure, addressing initial concerns of leukocytosis which is now improving. Status post-cardiac arrest. Plan: - Continue ICU monitoring - Proceed with AICD placement as planned (likely Tuesday), cleared by infectious disease. - Maintain intubation and sedation until AICD placement - Continue Heparin drip for paroxysmal atrial fibrillation - Continue Mexitil - DC amiodarone due to transaminitis - added esmolol drip per Cardiology for AFib and added push doses of digoxin Coronary Artery Disease Assessment: Patient with history of 2-vessel CABG (Coronary Artery Bypass Grafting). Surgical intervention previously performed to address significant coronary artery stenosis. Plan: - Continue medical management - Follow up with cardiology for ongoing coronary artery disease management Acute and Chronic Systolic Heart Failure Assessment: Patient has acute and chronic systolic heart failure with severely reduced left ventricular function. Ejection fraction is estimated at 15-20%. RICHIE findings are consistent with severely reduced left ventricular ejection fraction, previously implanted mitral ring, up to moderate mitral stenosis and regurgitation, and moderate aortic insufficiency. Plan: - Continue cardiology consultation - continue IV diuretics (IV Lasix) - Monitor renal function Acute Hypoxic Respiratory Failure Assessment: Patient is currently intubated due to acute hypoxic respiratory failure. Dr. Downey from pulmonology is managing this aspect of care. Plan: - Maintain current intubation as per pulmonology recommendation - Proceed with CPAP trials when deemed appropriate by pulmonology Transaminitis Assessment: Patient has elevated liver function tests, likely secondary to amiodarone use. Cardiology has discontinued amiodarone in response. Plan: - Monitor liver function tests - Amiodarone discontinued as per cardiology Enterobacter PNA Assessment: Sputum culture positive for Enterobacter. Plan: - Continue treatment with Eratapenem to complete 10 days regimen -Infectious disease consult Hemodynamic Support Assessment: Patient requires vasopressor support for hemodynamic stability. Plan: - Continue vasopressin - Continue neosynephrine Paroxysmal a fib -DC amiodarone -continue with heparin gtt Shock liver GI consult, trend liver enzymes, hepatitis panel was negative. Ultrasound of the liver had no acute findings. Assessment/Plan Subjective: Patient remains intubated on the ventilator. Objective: Patient was reintubated status post respiratory failure. He is very deconditioned and will require physical therapy. I spoke with the patients father regarding the plan of care. Patient has sepsis with Enterobacter pneumonia and is currently on antibiotics. He had an AICD placed, which prevents completion of MRCP at this time. Plan: Consult secondary social studies teacher for LTAC evaluation. Continue antibiotics for sepsis. Monitor EKG. Continue ventilatory support and physical therapy planning once stable. Dietary Evaluation Review Comments: 1) TF Jevity 1.2Cal @ 55 ml/hr. x 24hr along with Pro-stat 1 pk daily. Start @ 20ml/hr, increase 10ml/hr Q4H until goal is reached. TF @ goal volume provides 1684 kcal (100% energy needs), 88 gm protein (100% protein needs), 1065 ml free water. 2) Water flush 100ml Q4H if allowed, adjust PRN 3) Advance to cardiac diet as medically feasible 4) Monitor NPO status, lab values, wt trend, I/O Expected Outcomes/Goals: To meet >75% estimated needs within 7 days Lab values to improve Fu 2-3 days Plan discussed with: Patient, Other BRODIE GARVIN REPTILE FARMER Nov 16, 2024 13:30
[2024-11-16] MEDS: phytonadione 2.5 MG in SODIUM CHL 0.9% 50 ML IV ONE (16:02)
--- NOTE | 2024-11-16 16:03 | DVHPN2 ---
Progress Note - Dictate Date Seen: Nov 16, 2024 Has the PT tested + for MRSA If YES, has PT been informed?: No Medical Necessity Reason Pt with a Central, PICC or Fol: No The following are medically ne: PICC Line, Cutler Catheter Reason for cutler catheter: Strict I&O vital signs Vital Sign Date Time Temp Pulse Resp B/P (MAP) Pulse Ox O2 Delivery O2 Flow Rate FiO2 11/16/24 14:37 125/62 11/16/24 14:02 100.0 60 18 99 212.0 11/16/24 13:41 30 11/16/24 12:00 Mechanical Ventilator+ Total Intake and Output 11/15/24 11/15/24 11/16/24 14:59 22:59 06:59 Intake Total 258.00 ml 663.0 ml 810.5 ml Output Total 3000 ml 1750 ml Balance 258.00 ml -2337.0 ml -939.5 ml medications Current Medications Medications Dose Ordered Sig/Liliam Route Start Time Stop Time Status Last Admin Dose Admin Amino Acids 0 ml @ 0 mls/hr PER PHARMACY IV 10/15/24 18:45 Cancel Dextrose 50 ml UD IV 10/16/24 09:30 Cancel Vancomycin HCl 0 ml @ 0 mls/hr UD IV 10/19/24 14:00 Cancel Metoprolol Tartrate 2.5 mg Q6HPRN PRN IV 10/31/24 09:15 Amino Acids 0 ml @ 0 mls/hr PER PHARMACY IV 11/04/24 22:00 Cancel Amino Acid Protein 30 ml DAILY PO 11/04/24 10:00 11/16/24 11:57 30 ML Pantoprazole Sodium 40 mg BID IV 11/09/24 22:00 11/16/24 11:57 40 MG Morphine Sulfate 4 mg Q4HPRN PRN IV 11/10/24 13:00 11/14/24 01:15 4 MG Acetaminophen/ Hydrocodone Bitart 1 tab Q4HPRN PRN GT 11/10/24 15:30 11/13/24 13:46 1 TAB Mexiletine HCl 150 mg TID GT 11/10/24 22:00 11/16/24 14:37 150 MG Fat Emulsion Intravenous 150 ml/Sodium Acetate 20 meq/Potassium Acetate 30 meq/ Potassium Phosphate 19.8 meq/Calcium Gluconate 2.3 meq/ Magnesium Sulfate 4 meq/ Multivitamins 10 ml/Chromium/ Copper/Manganese/ Zinc 1 ml/Amino Acids/Dextrose/ Purified Water 1,596.4462 ml @ 66 mls/hr [id number] IV 11/11/24 22:00 11/12/24 21:59 Cancel Apixaban 2.5 mg BID PO 11/13/24 22:00 11/16/24 11:57 2.5 MG Hydrocortisone Sodium Succinate 50 mg DAILY IV 11/14/24 10:00 11/16/24 11:57 50 MG Cefepime HCl 50 ml @ 12.5 mls/hr Q8HR IV 11/14/24 14:00 11/16/24 14:34 12.5 MLS/HR Furosemide 40 mg BIDD IV 11/14/24 18:00 11/16/24 06:00 40 MG Phenylephrine HCl 250 ml @ 30 mls/hr Q8H20M IV 11/15/24 09:00 11/16/24 14:37 48.75 MLS/HR Propofol 100 ml @ 2.088 mls/ hr Q24H IV 11/15/24 11:30 Fentanyl Citrate 250 ml @ 2.5 mls/hr Q24H IV 11/15/24 11:45 11/15/24 14:12 2.5 MLS/HR Enteral Nutritional Formula 1,000 ml 30ML/HR GT 11/15/24 11:45 Purified Water 150 ml Q6HR GT 11/15/24 18:00 11/16/24 11:58 150 ML Metronidazole 100 ml @ 100 mls/hr Q8HR IV 11/16/24 14:45 laboratory and microbiology Laboratory Tests 11/16/24 04:28 Test 11/16/24 04:28 Range/Units Serum Glucose 63 L 74-106 mg/dL Assessment/Plan impression s/p cardiac arrest VT CPR <5 min elevated troponin acute resp failure atelectases s/p PM pt seen and examined on ICU events pt re-intubated on mechanical ventilation ac volume control peep 5 Fi02=40% abg reviewed labs and imaging studies reviewed management plan sedation as needed vent support abg and CXR daily abx f up on cx de-escalate as appropriate monitor labs renal function daily abg and CXR dvt proph/on may need trache and ltac crit care time 35 min Dietary Evaluation Review Comments: 1) TF Jevity 1.2Cal @ 55 ml/hr. x 24hr along with Pro-stat 1 pk daily. Start @ 20ml/hr, increase 10ml/hr Q4H until goal is reached. TF @ goal volume provides 1684 kcal (100% energy needs), 88 gm protein (100% protein needs), 1065 ml free water. 2) Water flush 100ml Q4H if allowed, adjust PRN 3) Advance to cardiac diet as medically feasible 4) Monitor NPO status, lab values, wt trend, I/O Expected Outcomes/Goals: To meet >75% estimated needs within 7 days Lab values to improve Fu 2-3 days Plan discussed with: Other (rn) BELLO ROTHMAN MD Nov 16, 2024 16:03
[2024-11-16] MEDS ORDERED: Nepro With Carb Steady 1 Liter Bottle GT SCH (17:15)
--- NOTE | 2024-11-16 20:53 | DVHPN2 ---
Progress Note Date Seen: Nov 16, 2024 Has the PT tested + for MRSA If YES, has PT been informed?: No Medical Necessity Reason Pt with a Central, PICC or Fol: No The following are medically ne: PICC Line, Cutler Catheter Reason for cutler catheter: Strict I&O Subjective Patient reports: Other (intubated) Review of Systems: Deferred Objective vital signs Vital Sign Date Time Temp Pulse Resp B/P (MAP) Pulse Ox O2 Delivery O2 Flow Rate FiO2 11/16/24 20:14 61 18 112/48 (69) 99 30 11/16/24 18:00 Mechanical Ventilator+ 11/16/24 16:32 98.5 98.5 Total Intake and Output 11/15/24 11/15/24 11/16/24 15:00 23:00 07:00 Intake Total 271.75 ml 653.0 ml 813.0 ml Output Total 3000 ml 1750 ml Balance 271.75 ml -2347.0 ml -937.0 ml medications Current Medications Medications Dose Ordered Sig/Liliam Route Start Time Stop Time Status Last Admin Dose Admin Amino Acids 0 ml @ 0 mls/hr PER PHARMACY IV 10/15/24 18:45 Cancel Dextrose 50 ml UD IV 10/16/24 09:30 Cancel Vancomycin HCl 0 ml @ 0 mls/hr UD IV 10/19/24 14:00 Cancel Metoprolol Tartrate 2.5 mg Q6HPRN PRN IV 10/31/24 09:15 Amino Acids 0 ml @ 0 mls/hr PER PHARMACY IV 11/04/24 22:00 Cancel Amino Acid Protein 30 ml DAILY PO 11/04/24 10:00 11/16/24 11:57 30 ML Pantoprazole Sodium 40 mg BID IV 11/09/24 22:00 11/16/24 11:57 40 MG Morphine Sulfate 4 mg Q4HPRN PRN IV 11/10/24 13:00 11/14/24 01:15 4 MG Acetaminophen/ Hydrocodone Bitart 1 tab Q4HPRN PRN GT 11/10/24 15:30 11/13/24 13:46 1 TAB Mexiletine HCl 150 mg TID GT 11/10/24 22:00 11/16/24 14:37 150 MG Fat Emulsion Intravenous 150 ml/Sodium Acetate 20 meq/Potassium Acetate 30 meq/ Potassium Phosphate 19.8 meq/Calcium Gluconate 2.3 meq/ Magnesium Sulfate 4 meq/ Multivitamins 10 ml/Chromium/ Copper/Manganese/ Zinc 1 ml/Amino Acids/Dextrose/ Purified Water 1,596.4462 ml @ 66 mls/hr [id number] IV 11/11/24 22:00 11/12/24 21:59 Cancel Apixaban 2.5 mg BID PO 11/13/24 22:00 11/16/24 11:57 2.5 MG Hydrocortisone Sodium Succinate 50 mg DAILY IV 11/14/24 10:00 11/16/24 11:57 50 MG Cefepime HCl 50 ml @ 12.5 mls/hr Q8HR IV 11/14/24 14:00 11/16/24 14:34 12.5 MLS/HR Furosemide 40 mg BIDD IV 11/14/24 18:00 11/16/24 18:07 40 MG Phenylephrine HCl 250 ml @ 30 mls/hr Q8H20M IV 11/15/24 09:00 11/16/24 14:37 48.75 MLS/HR Propofol 100 ml @ 2.088 mls/ hr Q24H IV 11/15/24 11:30 Fentanyl Citrate 250 ml @ 2.5 mls/hr Q24H IV 11/15/24 11:45 11/15/24 14:12 2.5 MLS/HR Purified Water 150 ml Q6HR GT 11/15/24 18:00 11/16/24 18:08 150 ML Metronidazole 100 ml @ 100 mls/hr Q8HR IV 11/16/24 14:45 11/16/24 16:02 100 MLS/HR Enteral Nutritional Formula 1,000 ml 30ML/HR GT 11/16/24 17:15 11/17/24 00:00 Enteral Nutritional Formula 1,000 ml 40ML/HR GT 11/17/24 00:00 Examination: GENERAL:Abnormal, MSK:Abnormal, SKIN:Abnormal, NEURO:Abnormal laboratory and microbiology Laboratory Tests 11/16/24 04:28 Test 11/16/24 04:28 Range/Units Serum Glucose 63 L 74-106 mg/dL Microbiology Date/Time Source Procedure Growth Status 11/14/24 11:50 Sputum Endotracheal Wash Gram Stain - Final Resulted 11/14/24 11:50 Sputum Endotracheal Wash Respiratory Culture - Preliminary Resulted 11/14/24 08:50 Blood Blood Culture - Preliminary NO GROWTH AFTER 48 HOURS OF INCUBATION. Resulted 11/14/24 04:30 Nose MRSA Screen - Final Complete 10/20/24 01:03 Urine - Cutler Port Urine Culture - Final Yeast, not Ilda albicans Complete Problem List/Assessment/Plan Problem List/Assessment/Plan BARBIE-hemodynamic mediated etiology Metabolic acidosis proteinuria Cardiac arrest status post V-tach chfref ef 15-20 VDRF hypernatremia recs k replace d5w iv for 1 liter We will follow renal function closely Plan discussed with: Other My Orders My Orders Orders - OLIVIER GOMEZ MD Procedure Category Date Status Time Communication Order ORDERS 11/16/24 Transmitted 20:45 Dietary Evaluation Review Comments: 1) TF Jevity 1.2Cal @ 55 ml/hr. x 24hr along with Pro-stat 1 pk daily. Start @ 20ml/hr, increase 10ml/hr Q4H until goal is reached. TF @ goal volume provides 1684 kcal (100% energy needs), 88 gm protein (100% protein needs), 1065 ml free water. 2) Water flush 100ml Q4H if allowed, adjust PRN 3) Advance to cardiac diet as medically feasible 4) Monitor NPO status, lab values, wt trend, I/O Expected Outcomes/Goals: To meet >75% estimated needs within 7 days Lab values to improve Fu 2-3 days OLIVIER GOMEZ MD Nov 16, 2024 20:53
[2024-11-16] MEDS: D5W 5% 1,000 ML IV ONE (21:30)
--- NOTE | 2024-11-16 23:58 | DVHPN2 ---
Progress Note - Dictate Date Seen: Nov 16, 2024 Has the PT tested + for MRSA If YES, has PT been informed?: No Medical Necessity Reason Pt with a Central, PICC or Fol: No The following are medically ne: PICC Line, Cutler Catheter Reason for cutler catheter: Strict I&O Subjective Ms. Smith is a 54 years old female who was brought to the [facility] on 10/07/2024 with a chief complaint of cardiopulmonary arrest/status post CPR. I have seen and examined the patient in the ICU, I have discussed with nurse. She is intubated, but is responsive to light touch, he moves the arms, at the beginning of the right side looks drunk but later the left side looks stronger She had PEG insert on 11/09/2024 Blood culture, 10/09/2024: No growth Blood culture, 10/19/2024: ABG, 11/04/2024 0220: Metabolic acidosis, 11/04/2024 0427: Metabolic acidosis UDS, 10/07/2024: Negative Urinalysis, 10/07/2024: Leukocyte esterase: Negative WBC/HB/PLT/MCV, 10/09/2024: 20/8.8/219/94.6, 10/10/2024: 21.2/8.7/232/92.2, 11/14/2024: 13.9/10.5/101/I04.1 PT/INR/PTT, 10/08/2024: 12.4/1.19/72.7, 10/09/2024: 13.1/1.26/68.9, 10/10/2024: 14.4/2/1.38/35.3 CMP, 10/08/2024: Unremarkable Troponin one high sensitivity, 10/07/2024: 141, 138, 117 TBI/AST/ALT/AP, 10/10/2024: 0.5/538/168/144, 10/11/2024: 0.6/293/199/152, 10/14/2024: 0.8/68/74/124 TG/HDL/LDL/HDL, 10/07/24: 71/66/31/21 EKG 10/10/2024: Atrial fibrillation EKG, 10/15/2024: Atrial fibrillation Echocardiogram, 10/07/2024: lvef 15-20% dilated LV severe global dysfunction mild RV dysfunction biatrial enlargement mild moderate MAC, moderate mitral regurg mild to moderate aortic regug RICHIE, 10/08/2024: 1. Left ventricle: Dilated LV was seen. LVEF was 25%. There was diffuse hypokinesis of left ventricle. 2. Right ventricle: RV was mildly dilated. 3. Left atrium: LA enlarged 4. Right atrium: RA was enlarged. 5. Mitral valve: Mitral was thickened with reduced opening. Moderate Mitral regurgitation was seen. Planinomentry of valve (TTE images also obtained) revealed MVA of 2.1 cm. Mean pressure gradient (obtained from limited TTE images) was 5. Images are consistent with previously implanted Ring in Mitral position. Consistent with up to Moderate Mitral stenosis. . There was no vegetation 6. Left atrial appendage: No evidence of thrombus. 7. Aortic valve: Trileaflet valve. No stenosis. Up to moderate Aortic Insufficiency was seen. There was no vegetation 8. Pulmonic valve: Trivial pulmonic insufficiency. No significant stenosis. 9. Tricuspid valve: Mild tricuspid regurgitation. There was no vegetation 10. Interatrial septum: Negative color flow for right to left shunt was observed. Bubble study was performed: negative for shunt 11. Pericardium: No significant effusion. 12. Thoracic aorta: No significant plaquing. Chest x-ray, 10/27/2024: 1. Cardiomegaly, stable diffuse increased prominence of the pulmonary vasculature and small bilateral pleural effusions. 2. Slight interval advancement of endotracheal tube as above. Remaining lines and tubes unchanged. CT head, 10/07/2024: No acute intracranial abnormality General: the patient is well developed and nourished. No acute distress. Intubated CT head, 10/07/2024: No acute intracranial abnormality. CT head, 10/11/2024: No acute intracranial abnormality CT head, 11/01/2024: As above, the other systems are negative CT head, 11/15/2024: 1. No acute intracranial abnormality. 2. No findings to suggest territorial ischemia. vital signs Vital Sign Date Time Temp Pulse Resp B/P (MAP) Pulse Ox O2 Delivery O2 Flow Rate FiO2 11/16/24 23:56 110/46 11/16/24 22:48 100.2 61 18 99 212.4 11/16/24 22:26 30 11/16/24 22:00 Mechanical Ventilator+ Total Intake and Output 11/15/24 11/15/24 11/16/24 14:59 22:59 06:59 Intake Total 258.00 ml 663.0 ml 810.5 ml Output Total 3000 ml 1750 ml Balance 258.00 ml -2337.0 ml -939.5 ml medications Current Medications Medications Dose Ordered Sig/Liliam Route Start Time Stop Time Status Last Admin Dose Admin Amino Acids 0 ml @ 0 mls/hr PER PHARMACY IV 10/15/24 18:45 Cancel Dextrose 50 ml UD IV 10/16/24 09:30 Cancel Vancomycin HCl 0 ml @ 0 mls/hr UD IV 10/19/24 14:00 Cancel Metoprolol Tartrate 2.5 mg Q6HPRN PRN IV 10/31/24 09:15 Amino Acids 0 ml @ 0 mls/hr PER PHARMACY IV 11/04/24 22:00 Cancel Amino Acid Protein 30 ml DAILY PO 11/04/24 10:00 11/16/24 11:57 30 ML Pantoprazole Sodium 40 mg BID IV 11/09/24 22:00 11/16/24 22:01 40 MG Morphine Sulfate 4 mg Q4HPRN PRN IV 11/10/24 13:00 11/14/24 01:15 4 MG Acetaminophen/ Hydrocodone Bitart 1 tab Q4HPRN PRN GT 11/10/24 15:30 11/13/24 13:46 1 TAB Mexiletine HCl 150 mg TID GT 11/10/24 22:00 11/16/24 22:01 150 MG Fat Emulsion Intravenous 150 ml/Sodium Acetate 20 meq/Potassium Acetate 30 meq/ Potassium Phosphate 19.8 meq/Calcium Gluconate 2.3 meq/ Magnesium Sulfate 4 meq/ Multivitamins 10 ml/Chromium/ Copper/Manganese/ Zinc 1 ml/Amino Acids/Dextrose/ Purified Water 1,596.4462 ml @ 66 mls/hr [id number] IV 11/11/24 22:00 11/12/24 21:59 Cancel Apixaban 2.5 mg BID PO 11/13/24 22:00 11/16/24 22:01 2.5 MG Hydrocortisone Sodium Succinate 50 mg DAILY IV 11/14/24 10:00 11/16/24 11:57 50 MG Cefepime HCl 50 ml @ 12.5 mls/hr Q8HR IV 11/14/24 14:00 11/16/24 22:01 12.5 MLS/HR Furosemide 40 mg BIDD IV 11/14/24 18:00 11/16/24 18:07 40 MG Phenylephrine HCl 250 ml @ 30 mls/hr Q8H20M IV 11/15/24 09:00 11/16/24 23:56 30 MLS/HR Propofol 100 ml @ 2.088 mls/ hr Q24H IV 11/15/24 11:30 Fentanyl Citrate 250 ml @ 2.5 mls/hr Q24H IV 11/15/24 11:45 11/15/24 14:12 2.5 MLS/HR Purified Water 150 ml Q6HR GT 11/15/24 18:00 11/16/24 18:08 150 ML Metronidazole 100 ml @ 100 mls/hr Q8HR IV 11/16/24 14:45 11/16/24 22:01 100 MLS/HR Enteral Nutritional Formula 1,000 ml 30ML/HR GT 11/16/24 17:15 11/17/24 00:00 Enteral Nutritional Formula 1,000 ml 40ML/HR GT 11/17/24 00:00 objective The patient is well-nourished and well-developed with no distress. Intubated MENTAL STATUS: Subjective CRANIAL NERVES: Pupils are equal, round and reactive. This corneal reflex and doll's eye phenomena. No some facial weakness, she has gag reflexes. SENSATION: Okay to light touch and painful stimuli MOTOR: Normal tone in the upper and lower extremity. Normal muscle bulk. No fasciculations. She moves the arms REFLEXES: Deep tendon reflexes are symmetrical. No pathological reflexes. CEREBELLAR/COORDINATION: Deferred GAIT/STATION: deferred. laboratory and microbiology Laboratory Tests 11/16/24 04:28 Test 11/16/24 04:28 Range/Units Serum Glucose 63 L 74-106 mg/dL Problem List Cardiopulmonary arrest Status post CPR Reintubated on 11/14/2024 Metabolic encephalopathy Hypoxic encephalopathy Congestive heart failure Leukocytosis/sepsis/septic shock Respiratory failure Elevated liver function tests AFib S/P pacemaker insertion on 10/17/2024 ? Chronic organic brain syndrome Assessment/Plan Monitoring Supportive treatment ICU care Stabilize vitals/pressor drip Respiratory support/ vent management Oxygen DVT prophylaxis GI prophylaxis Cardiology on case Pulmonology on case Nephrology on case Need more history This medical document was created using an electronic medical record system with [employer] dictation system. Although this document has been carefully reviewed, there may still be some phonetic and typographical errors. These areas are purely typographical due to imperfections of the software programs, and do not reflect any compromise in the patient's medical care. Prognosis Guarded Dietary Evaluation Review Comments: 1) TF Jevity 1.2Cal @ 55 ml/hr. x 24hr along with Pro-stat 1 pk daily. Start @ 20ml/hr, increase 10ml/hr Q4H until goal is reached. TF @ goal volume provides 1684 kcal (100% energy needs), 88 gm protein (100% protein needs), 1065 ml free water. 2) Water flush 100ml Q4H if allowed, adjust PRN 3) Advance to cardiac diet as medically feasible 4) Monitor NPO status, lab values, wt trend, I/O Expected Outcomes/Goals: To meet >75% estimated needs within 7 days Lab values to improve Fu 2-3 days Plan discussed with: Other CAROLINE ROBB MD Nov 16, 2024 23:57
[2024-11-17] VITALS (116 sets, daily range): BP systolic 81–142; BP diastolic 39–77; PULSE 48–66; RESP 17–26; TEMP 98.1–100; O2SAT 97–100
[2024-11-17] MEDS ORDERED: Nepro With Carb Steady 1 Liter Bottle GT SCH
[2024-11-17 04:03] LABS: INR 1.97 (0.9-1.15); Partial Thromboplastin Time 35.1 SEC (24.5-34.5); Prothrombin Time 19.5 sec (9.3-11.8)
[2024-11-17 04:05] LABS: Anion Gap 15 (5-15); BUN/Creatinine Ratio 54.3 (10.0-20.0); Carbon Dioxide 30 mmol/L (20-31); Chloride 103 mmol/L (98-107)
[2024-11-17 04:33] LABS: Alkaline Phosphatase 298 U/L (46-116); Blood Urea Nitrogen 38 mg/dL (9-23); Glucose 116 mg/dL (74-106); Sodium 148 mmol/L (136-145)
[2024-11-17 04:34] LABS: Alanine Aminotransferase 4207 U/L (7-40); Albumin 2.7 g/dL (3.2-4.8); Bilirubin, Total 5.7 mg/dL (0.2-1.0); Calcium 8.3 mg/dL (8.7-10.4); Magnesium 1.6 mg/dL (1.6-2.6); Total Protein 5.1 g/dL (5.7-8.2)
[2024-11-17 04:36] LABS: Potassium 2.1 mmol/L (3.5-5.1)
[2024-11-17] MEDS: POTASSIUM CHL 20MEQ/100ML 100 ML IV SCH ×2 (04:50→10:48)
[2024-11-17] MEDS: MAGNESIUM SULFATE 1GM/100ML 100 ML IV SCH (06:25)
--- NOTE | 2024-11-17 06:32 | DVH ---
CHEST RADIOGRAPH Indication: RESP FAILURE Technique: Single frontal view of the chest was obtained COMPARISON: XY CHEST PORTABLE on DOS: 11/16/24, XY CHEST PORTABLE on DOS: 11/15/24, XY CHEST XRAY 1 VIE W on DOS: 11/14/24, XY CHEST PORTABLE on DOS: 11/14/24, XY CHEST XRAY 1 VIEW on DOS: 11/05/24 FINDINGS: Lines and Tubes: Slight interval retraction of the endotracheal tube such that the tip now projects a pproximately 4.5 cm above the level of the tyler. Left anterior chest wall cardiac pacing device. Lungs: Clear Pleura: No effusion. No pneumothorax. Cardiomediastinal contours: Cardiomegaly status post median sternotomy. Bones: Unremarkable IMPRESSION: 1. Interval retraction of the endotracheal tube such that the tip now projects approximately 4.5 cm a georgie the level of the tyler. 2. Cardiomegaly.
--- NOTE | 2024-11-17 07:13 | DVHPN2 ---
Progress Note - Dictate Date Seen: Nov 17, 2024 Has the PT tested + for MRSA If YES, has PT been informed?: No Medical Necessity Reason Pt with a Central, PICC or Fol: No The following are medically ne: PICC Line, Cutelr Catheter Reason for cutler catheter: Strict I&O vital signs Vital Sign Date Time Temp Pulse Resp B/P (MAP) Pulse Ox O2 Delivery O2 Flow Rate FiO2 11/17/24 06:35 55 18 120/65 (83) 99 30 11/17/24 00:00 Mechanical Ventilator+ 11/16/24 22:48 100.2 212.4 Total Intake and Output 11/16/24 11/16/24 11/17/24 15:00 23:00 07:00 Intake Total 681.25 ml 1430.50 ml 220 ml Output Total 1350 ml 2000 ml Balance 681.25 ml 80.50 ml -1780 ml medications Current Medications Medications Dose Ordered Sig/Liliam Route Start Time Stop Time Status Last Admin Dose Admin Amino Acids 0 ml @ 0 mls/hr PER PHARMACY IV 10/15/24 18:45 Cancel Dextrose 50 ml UD IV 10/16/24 09:30 Cancel Vancomycin HCl 0 ml @ 0 mls/hr UD IV 10/19/24 14:00 Cancel Metoprolol Tartrate 2.5 mg Q6HPRN PRN IV 10/31/24 09:15 Amino Acids 0 ml @ 0 mls/hr PER PHARMACY IV 11/04/24 22:00 Cancel Amino Acid Protein 30 ml DAILY PO 11/04/24 10:00 11/16/24 11:57 30 ML Pantoprazole Sodium 40 mg BID IV 11/09/24 22:00 11/16/24 22:01 40 MG Morphine Sulfate 4 mg Q4HPRN PRN IV 11/10/24 13:00 11/14/24 01:15 4 MG Acetaminophen/ Hydrocodone Bitart 1 tab Q4HPRN PRN GT 11/10/24 15:30 11/13/24 13:46 1 TAB Mexiletine HCl 150 mg TID GT 11/10/24 22:00 11/17/24 06:24 150 MG Fat Emulsion Intravenous 150 ml/Sodium Acetate 20 meq/Potassium Acetate 30 meq/ Potassium Phosphate 19.8 meq/Calcium Gluconate 2.3 meq/ Magnesium Sulfate 4 meq/ Multivitamins 10 ml/Chromium/ Copper/Manganese/ Zinc 1 ml/Amino Acids/Dextrose/ Purified Water 1,596.4462 ml @ 66 mls/hr [id number] IV 11/11/24 22:00 11/12/24 21:59 Cancel Apixaban 2.5 mg BID PO 11/13/24 22:00 11/16/24 22:01 2.5 MG Hydrocortisone Sodium Succinate 50 mg DAILY IV 11/14/24 10:00 11/16/24 11:57 50 MG Cefepime HCl 50 ml @ 12.5 mls/hr Q8HR IV 11/14/24 14:00 11/17/24 06:24 12.5 MLS/HR Furosemide 40 mg BIDD IV 11/14/24 18:00 11/16/24 18:07 40 MG Phenylephrine HCl 250 ml @ 30 mls/hr Q8H20M IV 11/15/24 09:00 11/16/24 23:56 30 MLS/HR Propofol 100 ml @ 2.088 mls/ hr Q24H IV 11/15/24 11:30 Fentanyl Citrate 250 ml @ 2.5 mls/hr Q24H IV 11/15/24 11:45 11/15/24 14:12 2.5 MLS/HR Purified Water 150 ml Q6HR GT 11/15/24 18:00 11/16/24 18:08 150 ML Metronidazole 100 ml @ 100 mls/hr Q8HR IV 11/16/24 14:45 11/17/24 06:24 100 MLS/HR Enteral Nutritional Formula 1,000 ml 40ML/HR GT 11/17/24 00:00 Potassium Chloride 100 ml @ 50 mls/hr Q2H IV 11/17/24 04:45 11/17/24 08:44 11/17/24 05:44 50 MLS/HR Potassium Chloride 100 ml @ 50 mls/hr Q2H IV 11/17/24 06:15 11/17/24 10:14 Magnesium Sulfate/ Dextrose 100 ml @ 100 mls/hr Q1HR IV 11/17/24 07:00 11/17/24 09:59 11/17/24 06:25 100 MLS/HR objective General Appearance: no distress HEENT: EOMI, PERRLA, normal external inspect of ears, no icterus, no nasal drainage Neck: no carotid bruit, no jugular venous distention (JVD), no lymphadenopathy Chest: normal thorax Respiratory: Intubated, clear to auscultation, normal air movement Cardiovascular: regular rate and rhythm, no diastolic murmur, no jugular venous distention (JVD), no rub, no systolic murmur Abdominal: soft, no hepatomegaly, no mass, no splenomegaly, no tenderness Genitourinary: grossly normal external Musculoskeletal: no joint tenderness, no swelling Extremities: normal pulses, no calf tenderness, no clubbing, no cyanosis, no edema Skin: no bruising, no jaundice, no rash Neurological: No focal deficit laboratory and microbiology Laboratory Tests 11/17/24 03:15 Test 11/17/24 03:15 Range/Units Serum Glucose 116 H 74-106 mg/dL Problem List Cardiac Arrest with Ventricular Fibrillation Assessment: Patient experienced cardiac arrest with ventricular fibrillation on 10/07/24, witnessed by family members who initiated CPR. EMS found the patient in ventricular fibrillation and administered shock therapy. Rhythm strip analysis confirmed ventricular fibrillation. Patient required intubation and sedation upon ED arrival. Currently admitted to ICU for close observation. Cardiology has been consulted and plans for AICD placement, likely on Tuesday. Infectious disease clearance has been obtained for the AICD procedure, addressing initial concerns of leukocytosis which is now improving. Status post-cardiac arrest. Plan: - Continue ICU monitoring - Proceed with AICD placement as planned (likely Tuesday), cleared by infectious disease. - Maintain intubation and sedation until AICD placement - Continue Heparin drip for paroxysmal atrial fibrillation - Continue Mexitil - DC amiodarone due to transaminitis - added esmolol drip per Cardiology for AFib and added push doses of digoxin Coronary Artery Disease Assessment: Patient with history of 2-vessel CABG (Coronary Artery Bypass Grafting). Surgical intervention previously performed to address significant coronary artery stenosis. Plan: - Continue medical management - Follow up with cardiology for ongoing coronary artery disease management Acute and Chronic Systolic Heart Failure Assessment: Patient has acute and chronic systolic heart failure with severely reduced left ventricular function. Ejection fraction is estimated at 15-20%. RICHIE findings are consistent with severely reduced left ventricular ejection fraction, previously implanted mitral ring, up to moderate mitral stenosis and regurgitation, and moderate aortic insufficiency. Plan: - Continue cardiology consultation - continue IV diuretics (IV Lasix) - Monitor renal function Acute Hypoxic Respiratory Failure Assessment: Patient is currently intubated due to acute hypoxic respiratory failure. Dr. Downey from pulmonology is managing this aspect of care. Plan: - Maintain current intubation as per pulmonology recommendation - Proceed with CPAP trials when deemed appropriate by pulmonology Transaminitis Assessment: Patient has elevated liver function tests, likely secondary to amiodarone use. Cardiology has discontinued amiodarone in response. Plan: - Monitor liver function tests - Amiodarone discontinued as per cardiology Enterobacter PNA Assessment: Sputum culture positive for Enterobacter. Plan: - Continue treatment with Eratapenem to complete 10 days regimen -Infectious disease consult Hemodynamic Support Assessment: Patient requires vasopressor support for hemodynamic stability. Plan: - Continue vasopressin - Continue neosynephrine Paroxysmal a fib -DC amiodarone -continue with heparin gtt Shock liver GI consult, trend liver enzymes, hepatitis panel was negative. Ultrasound of the liver had no acute findings. Assessment/Plan Subjective: Patient is intubated and sedated. Objective: Patient was admitted status post CPR. Patient had ventricular fibrillation status post shock. Patient had an AICD placement. She was successfully extubated however was poorly conditioned and awaiting transfer to rehab center. Patient developed acute hypoxic respiratory failure again most likely from aspiration pneumonia. Patient was then intubated. I have updated her father on plan of care. He has agreed to LTAC facility for continued rehab. Plan: Continue spontaneous breathing trials per pulmonary. Continue antibiotics for sepsis and pneumonia. Monitor daily labs. Dietary Evaluation Review Comments: 1) TF Jevity 1.2Cal @ 55 ml/hr. x 24hr along with Pro-stat 1 pk daily. Start @ 20ml/hr, increase 10ml/hr Q4H until goal is reached. TF @ goal volume provides 1684 kcal (100% energy needs), 88 gm protein (100% protein needs), 1065 ml free water. 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
[2024-11-17 08:24] LABS: Hematocrit 34.2 % (36.0-46.0); Hemoglobin 10.8 g/dL (12.2-16.2); Mean Corpuscular Hemoglobin 29.6 pg (28.0-32.0); Mean Corpuscular Volume 93.6 fL (80.0-100.0); Nucleated Red Blood Cells % 1.1 %
--- NOTE | 2024-11-17 09:08 | DVHPN2 ---
Progress Note - Dictate Date Seen: Nov 17, 2024 Has the PT tested + for MRSA If YES, has PT been informed?: No Medical Necessity Reason Pt with a Central, PICC or Fol: No The following are medically ne: PICC Line, Cutler Catheter Reason for cutler catheter: Strict I&O vital signs Vital Sign Date Time Temp Pulse Resp B/P (MAP) Pulse Ox O2 Delivery O2 Flow Rate FiO2 11/17/24 08:28 61 18 101/58 (72) 99 30 11/17/24 07:04 99.3 210.7 11/17/24 06:00 Mechanical Ventilator+ Total Intake and Output 11/16/24 11/16/24 11/17/24 15:00 23:00 07:00 Intake Total 681.25 ml 1430.50 ml 930 ml Output Total 1350 ml 2000 ml Balance 681.25 ml 80.50 ml -1070 ml medications Current Medications Medications Dose Ordered Sig/Liliam Route Start Time Stop Time Status Last Admin Dose Admin Amino Acids 0 ml @ 0 mls/hr PER PHARMACY IV 10/15/24 18:45 Cancel Dextrose 50 ml UD IV 10/16/24 09:30 Cancel Vancomycin HCl 0 ml @ 0 mls/hr UD IV 10/19/24 14:00 Cancel Metoprolol Tartrate 2.5 mg Q6HPRN PRN IV 10/31/24 09:15 Amino Acids 0 ml @ 0 mls/hr PER PHARMACY IV 11/04/24 22:00 Cancel Amino Acid Protein 30 ml DAILY PO 11/04/24 10:00 11/16/24 11:57 30 ML Pantoprazole Sodium 40 mg BID IV 11/09/24 22:00 11/16/24 22:01 40 MG Morphine Sulfate 4 mg Q4HPRN PRN IV 11/10/24 13:00 11/14/24 01:15 4 MG Acetaminophen/ Hydrocodone Bitart 1 tab Q4HPRN PRN GT 11/10/24 15:30 11/13/24 13:46 1 TAB Mexiletine HCl 150 mg TID GT 11/10/24 22:00 11/17/24 06:24 150 MG Fat Emulsion Intravenous 150 ml/Sodium Acetate 20 meq/Potassium Acetate 30 meq/ Potassium Phosphate 19.8 meq/Calcium Gluconate 2.3 meq/ Magnesium Sulfate 4 meq/ Multivitamins 10 ml/Chromium/ Copper/Manganese/ Zinc 1 ml/Amino Acids/Dextrose/ Purified Water 1,596.4462 ml @ 66 mls/hr [id number] IV 11/11/24 22:00 11/12/24 21:59 Cancel Apixaban 2.5 mg BID PO 11/13/24 22:00 11/16/24 22:01 2.5 MG Hydrocortisone Sodium Succinate 50 mg DAILY IV 11/14/24 10:00 11/16/24 11:57 50 MG Cefepime HCl 50 ml @ 12.5 mls/hr Q8HR IV 11/14/24 14:00 11/17/24 06:24 12.5 MLS/HR Furosemide 40 mg BIDD IV 11/14/24 18:00 11/16/24 18:07 40 MG Phenylephrine HCl 250 ml @ 30 mls/hr Q8H20M IV 11/15/24 09:00 11/17/24 07:45 30 MLS/HR Propofol 100 ml @ 2.088 mls/ hr Q24H IV 11/15/24 11:30 Fentanyl Citrate 250 ml @ 2.5 mls/hr Q24H IV 11/15/24 11:45 11/15/24 14:12 2.5 MLS/HR Purified Water 150 ml Q6HR GT 11/15/24 18:00 11/16/24 18:08 150 ML Metronidazole 100 ml @ 100 mls/hr Q8HR IV 11/16/24 14:45 11/17/24 06:24 100 MLS/HR Enteral Nutritional Formula 1,000 ml 40ML/HR GT 11/17/24 00:00 Potassium Chloride 100 ml @ 50 mls/hr Q2H IV 11/17/24 06:15 11/17/24 10:14 Magnesium Sulfate/ Dextrose 100 ml @ 100 mls/hr Q1HR IV 11/17/24 07:00 11/17/24 09:59 11/17/24 08:57 100 MLS/HR Acetaminophen 650 mg Q4HR PRN GT 11/17/24 08:30 laboratory and microbiology Laboratory Tests 11/17/24 07:58 11/17/24 03:15 Test 11/17/24 03:15 Range/Units Serum Glucose 116 H 74-106 mg/dL Assessment/Plan Still in ICU, intubated and on pressure support. No Arrhythmia identified during this episodes. Patient is a 54-year-old female who was brought to the hospital for witnessed syncope. She is intubated and is being managed in ICU. Information was obtained by reviewing the chart and communicating with patient's son (over the phone). Family recognized witnessed syncope and started CPR and called EMS. Reportedly, EMS found the patient in ventricular fibrillation and shocked the patient and brought the patient to the hospital. Patient was intubated in emergency room and transferred to ICU. Patient was on amiodarone drip. Later the patient had ventricular tachycardia (Systane). High sensitive troponin had been minimally/flatly elevated. Presentation was not in favor of acute coronary syndrome. Cardiology is involved for cardiac aspects of care. Intubated. On Vent. No JVD. Mucosa pale. No carotid bruit. Scattered rhonchi in the lungs is heard. Cardiac: Regular, no thrill. Systolic murmur 2/6 in apex is heard. Abdomen is soft. 3+ edema in extremities. Past medical history as per son: Congenital heart disease, status post bypass WBC: 14.5 - 11.9 - 18.8 - 20.0 - 21.2 - 14.3 - 10.3 - 8.9 - 9.2 - 11.1 - 12.1 - 10.8 - 12.0 - 9.9 - 15.4 - 14.8 - 12.1 - 10.5 - 5.8 - 5.3 - 4.2 - 5.8 - 4.1 - 7.0 - 9.3 - 8.3 - 11.5 - 8.4 - 8.4 - 5.4 - 5.7 - 8.4 - 7.4 - 6.2 - 6.7 - 13.9 - 11.7 - 10.1 - 8.8 Hemoglobin: 10.1 - 9.6 - 9.2 - 8.8 - 8.7 - 8.0 - 8.3 - 8.5 - 7.8 - 10.2 - 10.7 - 9.9 - 9.7 - 9.3 - 9.3 - 8.6 - 8.1 - 7.4 - 7.5 - 7.4 - 7.5 - 7.2 - 7.7 - 7.0 - (post PRBC transfusion) 10.4 - 10 - 9.5 - 10.0 - 9.2 - 9.8 -9.6 - 9.7 - 10.2 - 10.6 - 9.7 - 9.7 - 10.5 - 10.0 - 11.4 - 10.8 Creatinine: 0.95 - 0.93 - 0.87 - 0.83 - 0.83 - 0.76 - 0.68 - 0.72 - 0.79 - 0.76 - 0.80 - 0.84 - 0.61 - 0.65 - 0.74 - 0.64 - 0.73 - 0.82 - 0.88 - 1.03 - 0.99 - 0.85 - 0.87 - 0.79 - 1.12 - 1.15 - 1.04 - 0.96 - 0.94 - 0.93 - 0.78 - 0.71 - 0.68 - 0.61 - 0.59 - 0.49 - 0.39 - 0.54 - 0.48 - 0.76 - 0.93 - 0.78 - 0 0.78 - 0.68 - 0.70 Potassium: 3.4 - 4.0 - 4.6 - 3.5 - 3.3 - 4.1 - 3.7 - 3.2 - 3.7 - 4.0 - 3.2 - 3.4 - 3.9 - 4.2 - 3.3 - 3.8 - 3.6 - 3.4 - 4.2 - 3.8 - 4.5 - 4.1 - 3.5 - 4.2 - 3.3 - 2.6 - 3.5 - 3.8 - 2.4 - 2.9 - 4.6 - 2.8 - 4.8 - 4.9 - 3.4 - 3.1 - 3.7 - 4.4 - 3.7 - 3.7 - 3.1 - 3.0 - 3.8 - 4.4 - 3.8 - 4.1 - 4.3 - 3.9 - 4.4 - 6.1 - 4.6 - 3.0 - 3.6 - 3.1 - 2.1 Magnesium: 2.0 - 1.6 - 2.0 - 3.0 - 1.5 - 1.9 - 2.1 - 1.8 - 2.0 - 1.9 - 1.9 - 2.6 - 2.0 - 1.8 - 1.6 - 2.0 - 2.2 - 1.9 - 2.3 - 2.2 - 2.2 - 2.1 - 2.1 - 1.9 2.7 - 2.6 - 2.3 - 2.4 - 2.5 - 2.3 - 2.5 - 2.3 - 2.3 - 2.4 - 2.1 - 1.9 - 2.2 - 2.1 - 2.0 - 2.4 - 2.2 - 2.0 - 2.0 - 1.6 Troponin (high sensitive): 141 - 138 - 117 BNP: 457.16 - 1073.91 - 928.14 AST/ALT: 32/11 - 19/13 - 538/168 - 293/152 - 131/130 - 78/94 - 68/74 - 48/57 - 27/38 - 15/23 - 20/18 - 23/17 - 29/16 - 27/13 - 34/17 - 73/49 - 41/43 - 30/47 - 30/42 - 29/42 - 17/27 - 160/87 - 900/478 - 986/571 - 382/436 - 110/244 - 42/170 - 22/113 - 16/77 - 15/59 - 19/50 - 20/41 - 16/32 - 17/30 - 14/25 - 25/38 - - /2337 - >6000/>6000 - 4665/>6000 - 2123/>6000 - 604/4207 Digoxin level: 2.83 - 1.25 - 0.98 UDS: non-revealing Chest x-ray revealed: Lines and Tubes: Endotracheal tube tip projects approximately 1.4 cm above the level of the tyler. Enteric catheter courses below the lateral of the diaphragm and terminates beyond the inferior margin of the image. Right internal jugular central venous catheter terminates within the distal superior vena cava. Lungs: Moderate diffuse increased prominence of the pulmonary vasculature without evidence of focal consolidation. Pleura: No effusion. No pneumothorax. Cardiomediastinal contours: Cardiomegaly. Bones: Unremarkable IMPRESSION: 1. Cardiomegaly and diffuse increased prominence of the pulmonary vasculature. 2. Lines and tubes as above. Repeat chest x-ray revealed: IMPRESSION: 1. Endotracheal tube tip 1.6 cm above the tyler; consider 2 cm retraction 2. Mild pulmonary vascular congestion. Moderate cardiomegaly. Repeat chest xry revealed: IMPRESSION: Endotracheal tube tip 1.6 cm above the tyler; consider 2 cm retraction Mild pulmonary vascular congestion. Moderate cardiomegaly. Repeat chest xry revealed: IMPRESSION: 1. Stable cardiomegaly, small left pleural effusion and mild diffuse increased prominence of the pulmonary vasculature. 2. Repositioned endotracheal tube as above. Remaining lines and tubes unchanged. Repeat chest xry revealed: IMPRESSION: 1. Cardiomegaly, stable diffuse increased prominence of the pulmonary vasculature and small bilateral pleural effusions. 2. Slight interval advancement of endotracheal tube as above. Remaining lines and tubes unchanged. Repeat chest xry revealed: IMPRESSION: 1. Slight interval decrease in diffuse increased prominence of the pulmonary vasculature. 2. Stable cardiomegaly and small left pleural effusion. 3. Lines and tubes unchanged. Repeat chest xry revealed: IMPRESSION: 1. Cardiomegaly and small left pleural effusion. 2. Lines and tubes unchanged. Repeat chest xry revealed: IMPRESSION: Stable lines and tubes. Similar lung aeration. Repeat chest xry revealed: IMPRESSION: Cardiomegaly and small left pleural effusion. Lines and tubes unchanged. Repeat chest xry revealed: IMPRESSION: Placement of a cardiac pacer, no pneumothorax is seen. Stable lines and tubes. Repeat chest xry revealed: IMPRESSION: 1. Worsening mixed opacities in the right lower lung. No other significant change from the previous study. Stable support devices. Repeat chest xry revealed: Heart is prominent in size with postsurgical changes, median sternotomy wires, and a single lead left cardiac defibrillator. Support lines and tubes appear unchanged in satisfactory in position. No sizable effusion or pneumothorax. Mild pulmonary vascular congestion. No significant interval change. Repeat chest xry revealed: IMPRESSION: 1. No significant change from the previous study. Stable support devices. Similar findings of heart failure including left pleural effusion. Repeat chest xry revealed: IMPRESSION: 1. No significant change from the previous study. Stable support devices. Similar findings of heart failure including trace left pleural effusion. Repeat chest xry revealed: Lines and Tubes: Unchanged. Left anterior chest wall cardiac pacing device. Lungs: Clear Pleura: No effusion. No pneumothorax. Cardiomediastinal contours: Cardiomegaly. Bones: Unremarkable IMPRESSION: 1. Cardiomegaly. 2. Lines and tubes unchanged. Repeat chest xry revealed: IMPRESSION: Lines and tubes in satisfactory position. No significant interval change. Repeat chest xry revealed: Lines and Tubes: ET tube and NG tube removed. Lungs: Congestion Pleura: No effusion. No pneumothorax. Cardiomediastinal contours: Cardiomegaly Bones: Unremarkable IMPRESSION: 1. Cardiomegaly with CHF. Repeat chest xry revealed: IMPRESSION: 1. Cardiomegaly. 2. Patchy bilateral airspace disease. Repeat chest xry revealed: FINDINGS: Lines and Tubes: None. Left anterior chest wall cardiac pacing device. Lungs: Extensive multifocal bilateral pulmonary airspace disease in a predominantly perihilar and bibasilar distribution with consolidative features. Pleura: No effusion. No pneumothorax. Cardiomediastinal contours: Poorly evaluated secondary to extensive bilateral infiltrate. Bones: Unremarkable IMPRESSION: 1. Extensive multifocal bilateral pulmonary airspace disease in a predominantly perihilar and bibasilar distribution with consolidative features. Repeat chest xry revealed: IMPRESSION: 1. Status post interval intubation. Endotracheal tube tip projects approximately 2.4 cm above the level of the tyler. 2. Grossly stable appearing moderate patchy multifocal bilateral pulmonary airspace disease with consolidative features. 3. Cardiomegaly. Repeat chest xry revealed: IMPRESSION: No significant interval change. Repeat chest xry revealed: IMPRESSION: No significant interval change Repeat chest xry revealed: IMPRESSION: 1. Interval retraction of the endotracheal tube such that the tip now projects approximately 4.5 cm above the level of the tyler. 2. Cardiomegaly. Gall Bladder Ultrasound revealed: IMPRESSION: Gallstones are noted. Hepatic steatosis Trace ascites Trace bilateral pleural effusions. Hepatic cirrhosis. Liver Ultrasound revealed: Hepatic steatosis. Trace right pleural effusion. Trace ascites Gallstones Bladder ultrasound revealed: IMPRESSION: 1. Cutler catheter in the bladder in the bladder is decompressed. Repeat Bladder Ultrasound revealed: Urinary bladder is unremarkable with prevoid volume of 29 mL. Urinary bladder wall measures 1.5 mm. Cutler catheter is noted. KUB revealed: IMPRESSION: Nonobstructive bowel gas pattern. Nasogastric tube tip in the stomach. Large stool burden. Repeat KUB revealed: Right lower extremity PICC line with tip projecting over the expected region of the intrahepatic IVC. Nasogastric tube projecting towards the distal stomach. Nonspecific bowel gas pattern. Cardiomegaly and left basilar airspace opacities, incompletely characterized. Atherosclerotic calcification disease. Repeat KUB revealed: IMPRESSION: 1. Nonspecific nonobstructive bowel gas pattern. 2. Gastrostomy tube projects over the midportion of the left hemiabdomen. 3. Right femoral approach central venous catheter as described above. Left upper ext arterial duplex: IMPRESSION: No hemodynamically significant stenosis based on peak systolic velocity criteria. Left lower ext arterial duplex: IMPRESSION: There is no evidence for peripheral vascular insufficiency in the left lower extremity. No significant focal stenosis is identified. Liver Ultrasound revealed: Hepatic steatosis. Hepatomegaly. Cholelithiasis. CT of the head revealed: IMPRESSION: No acute intracranial abnormality. Repeat CT of head revealed: IMPRESSION: No acute intracranial abnormality. Repeat CT of Head revealed: IMPRESSION: No acute intracranial abnormality. Repeat CT of head revealed: IMPRESSION: 1. No acute intracranial abnormality. 2. No findings to suggest territorial ischemia. Echocardiogram reported: lvef 15-20% dilated LV severe global dysfunction mild RV dysfunction biatrial enlargement mild moderate MAC, moderate mitral regurg mild to moderate aortic regug (images of echo reviewed and questioned presence of mitral ring and also some component (moderate of Mitral stenosis) EKG revealed sinus rhythm Telemetry revealed occasions of atrial fibrillation. There was occasional sustained ventricular tachycardia. EMS tele monitor revealed ventricular fibrillation for which the patient was shocked. Has remained sinus rhythm. Later with A-fib with MVR LHC revealed: Patent RICHMOND to LAD; Patent SVG to obtuse marginal; LVEF of 20% with increased EDP; Proximal disease in LAD/LCX RICHIE was performed: Consistent with severely reduced LVEF. Consistent with previously implanted Mitral ring, Up to moderate Mitral stenosis/Mitral Regurgitation and also Moderate Aortic insufficiency. Patient is a 54-year-old female who presented with witnessed syncope. She was found to have ventricular fibrillation for which was shocked. Later had repeated episode of sustained ventricular tachycardia. Patient has been kept in ICU. Does have baseline history of coronary artery disease for which has had bypass surgery. Left heart catheterization was performed which revealed patent RICH[place]D and patent SVG. ACS is not considered at this point. It is of note that the patient's echocardiogram reveals significantly use systolic function. Valvular heart disease is considered. Findings are in favor of previously implanted mitral ring. By reviewing the echo images, component of up to moderate mitral stenosis could not be ruled out. LHC was performed that ruled out any active specific ischemia as an etiology for presentation. Is off Amiodarone for abnormal LFT. Being followed by Nephrology / Pulmonary / Neurology / GI ID. Tele has remained sinus rhythm. Had episode of a-fib with RVR. Was loaded with Digoxin. Dig level was performed at wrong timing (only 5 hours after the last Dig given). Dig toxicity is not considered. Patient is back to normal sinus rhythm. Has good kidney function. Repeat Dig level is acceptable level. s/p ICD implantation by EP. Intubated, later extubated. s/p PEG. Later had respiratory failure and was taken back to ICU. Imaging question pneumonia (can it be aspiration?). Eventhough repeat BNP has not increased (decreased somehow), patient does have peripheral edema and component of acute on chronic Systolic heart failure could also contribute to respiratory failure. The site of ICD implantation was reviewed by EP (Dr Armstrong on 05/13/2024): healing well (personal communication). Had repeat respiratory failure, back in ICU and intubated. Abnormal LFT. Found to have gall stone and Liver cirrhosis Syncope V-fib s/p shock Sustained V-tach Paroxysmal A-fib VHD, s/p Mitral ring Systolic heart failure Abnormal LFT, at a point resolved, later appeared again s/p ICD (Biotronik) implantation by EP (Dr Armstrong) s/p PRBC transfusion for significant anemia Hepatic Steatosis Gallstones Failed Swallowing s/p PEG Acute respiratory failure Acute on chronic systolic heart failure Gallstone Liver cirrhosis Cardiac suggestion for management: Manage in ICU IV diuresis Follow up electrolytes and kidney function test and correct abnormalities Full anticoagulation (a-fib with high CHADS-Vasc score). s/p ICD implantation. On Eliquis On Mexiletine On Levo-Phed: keep MAP above 65 (for now off pressure support and tolerating) Was on Metoprolol to decrease risk of Vtach (as patient has ICD with bradycardia protection: may continue metoprolol in case of bradycardia, but hold: if hypotensive). For now will stop/hold Metoprolol May consider/add Esmolol for PVC/Vtach (if needed) s/p ICD (Biotronik) implantation by EP Eliquis: 2.5 mg BID s/p PEG Pulmonary Follow up GI follow up Management of repeat respiratory failure, pneumonia as per primary team/pulmonary Provide previous medical records from reaching out to previous hospitals in [facility]... Further evaluation and management depends on the above and clinical course. A total of 75 minutes was spent reviewing the patient record, examining the patient, making a diagnostic and therapeutic plan, discussing this plan with medical personnel, following up on diagnostic studies and following the patient for clinical stability excluding any and all procedures. At least 50% of this time was spent in direct, [id number] contact. Thank you for allowing me to participate in this patient's care. Further recommendations will depend on patient's clinical course. Please do not hesitate to contact me if you have any questions or concerns. This medical document was created using electronic medical record system with [employer] computerized dictation system. Although this document has been carefully reviewed, there may still be some phonetic and typographical errors. These areas are purely typographical due to the imperfection of the software programs, and do not reflect any compromise in the patient's medical care. Dietary Evaluation Review Comments: 1) TF Jevity 1.2Cal @ 55 ml/hr. x 24hr along with Pro-stat 1 pk daily. Start @ 20ml/hr, increase 10ml/hr Q4H until goal is reached. TF @ goal volume provides 1684 kcal (100% energy needs), 88 gm protein (100% protein needs), 1065 ml free water. 2) Water flush 100ml Q4H if allowed, adjust PRN 3) Advance to cardiac diet as medically feasible 4) Monitor NPO status, lab values, wt trend, I/O Expected Outcomes/Goals: To meet >75% estimated needs within 7 days Lab values to improve Fu 2-3 days Plan discussed with: Other (nurse) CORDELL VERA MD Nov 17, 2024 09:08
--- NOTE | 2024-11-17 16:12 | DVHPN2 ---
Progress Note - Dictate Date Seen: Nov 17, 2024 Has the PT tested + for MRSA If YES, has PT been informed?: No Medical Necessity Reason Pt with a Central, PICC or Fol: No The following are medically ne: PICC Line, Cutler Catheter Reason for cutler catheter: Strict I&O Subjective Ms. Smith is a 54 years old female who was brought to the [facility] on 10/07/2024 with a chief complaint of cardiopulmonary arrest/status post CPR. I have seen and examined the patient in the ICU, I have discussed with nurse. She is intubated, but is responsive to light touch, he moves the the right arm She had PEG insert on 11/09/2024 Blood culture, 10/09/2024: No growth Blood culture, 10/19/2024: ABG, 11/04/2024 0220: Metabolic acidosis, 11/04/2024 0427: Metabolic acidosis UDS, 10/07/2024: Negative Urinalysis, 10/07/2024: Leukocyte esterase: Negative WBC/HB/PLT/MCV, 10/09/2024: 20/8.8/219/94.6, 10/10/2024: 21.2/8.7/232/92.2, 11/14/2024: 13.9/10.5/101/I04.1 PT/INR/PTT, 10/08/2024: 12.4/1.19/72.7, 10/09/2024: 13.1/1.26/68.9, 10/10/2024: 14.4/2/1.38/35.3 CMP, 10/08/2024: Unremarkable Troponin one high sensitivity, 10/07/2024: 141, 138, 117 TBI/AST/ALT/AP, 10/10/2024: 0.5/538/168/144, 10/11/2024: 0.6/293/199/152, 10/14/2024: 0.8/68/74/124 TG/HDL/LDL/HDL, 10/07/24: 71/66/31/21 EKG 10/10/2024: Atrial fibrillation EKG, 10/15/2024: Atrial fibrillation Echocardiogram, 10/07/2024: lvef 15-20% dilated LV severe global dysfunction mild RV dysfunction biatrial enlargement mild moderate MAC, moderate mitral regurg mild to moderate aortic regug RICHIE, 10/08/2024: 1. Left ventricle: Dilated LV was seen. LVEF was 25%. There was diffuse hypokinesis of left ventricle. 2. Right ventricle: RV was mildly dilated. 3. Left atrium: LA enlarged 4. Right atrium: RA was enlarged. 5. Mitral valve: Mitral was thickened with reduced opening. Moderate Mitral regurgitation was seen. Planinomentry of valve (TTE images also obtained) revealed MVA of 2.1 cm. Mean pressure gradient (obtained from limited TTE images) was 5. Images are consistent with previously implanted Ring in Mitral position. Consistent with up to Moderate Mitral stenosis. . There was no vegetation 6. Left atrial appendage: No evidence of thrombus. 7. Aortic valve: Trileaflet valve. No stenosis. Up to moderate Aortic Insufficiency was seen. There was no vegetation 8. Pulmonic valve: Trivial pulmonic insufficiency. No significant stenosis. 9. Tricuspid valve: Mild tricuspid regurgitation. There was no vegetation 10. Interatrial septum: Negative color flow for right to left shunt was observed. Bubble study was performed: negative for shunt 11. Pericardium: No significant effusion. 12. Thoracic aorta: No significant plaquing. Chest x-ray, 10/27/2024: 1. Cardiomegaly, stable diffuse increased prominence of the pulmonary vasculature and small bilateral pleural effusions. 2. Slight interval advancement of endotracheal tube as above. Remaining lines and tubes unchanged. CT head, 10/07/2024: No acute intracranial abnormality General: the patient is well developed and nourished. No acute distress. Intubated CT head, 10/07/2024: No acute intracranial abnormality. CT head, 10/11/2024: No acute intracranial abnormality CT head, 11/01/2024: As above, the other systems are negative CT head, 11/15/2024: 1. No acute intracranial abnormality. 2. No findings to suggest territorial ischemia. vital signs Vital Sign Date Time Temp Pulse Resp B/P (MAP) Pulse Ox O2 Delivery O2 Flow Rate FiO2 11/17/24 15:50 55 18 97/47 (64) 100 30 11/17/24 15:45 98.8 209.8 11/17/24 14:00 Mechanical Ventilator+ Total Intake and Output 11/16/24 11/16/24 11/17/24 15:00 23:00 07:00 Intake Total 681.25 ml 1430.50 ml 1015 ml Output Total 1350 ml 2000 ml Balance 681.25 ml 80.50 ml -985 ml medications Current Medications Medications Dose Ordered Sig/Liliam Route Start Time Stop Time Status Last Admin Dose Admin Amino Acids 0 ml @ 0 mls/hr PER PHARMACY IV 10/15/24 18:45 Cancel Dextrose 50 ml UD IV 10/16/24 09:30 Cancel Vancomycin HCl 0 ml @ 0 mls/hr UD IV 10/19/24 14:00 Cancel Metoprolol Tartrate 2.5 mg Q6HPRN PRN IV 10/31/24 09:15 Amino Acids 0 ml @ 0 mls/hr PER PHARMACY IV 11/04/24 22:00 Cancel Amino Acid Protein 30 ml DAILY PO 11/04/24 10:00 11/17/24 10:49 30 ML Pantoprazole Sodium 40 mg BID IV 11/09/24 22:00 11/17/24 10:48 40 MG Morphine Sulfate 4 mg Q4HPRN PRN IV 11/10/24 13:00 11/14/24 01:15 4 MG Acetaminophen/ Hydrocodone Bitart 1 tab Q4HPRN PRN GT 11/10/24 15:30 11/13/24 13:46 1 TAB Mexiletine HCl 150 mg TID GT 11/10/24 22:00 11/17/24 14:56 150 MG Fat Emulsion Intravenous 150 ml/Sodium Acetate 20 meq/Potassium Acetate 30 meq/ Potassium Phosphate 19.8 meq/Calcium Gluconate 2.3 meq/ Magnesium Sulfate 4 meq/ Multivitamins 10 ml/Chromium/ Copper/Manganese/ Zinc 1 ml/Amino Acids/Dextrose/ Purified Water 1,596.4462 ml @ 66 mls/hr [id number] IV 11/11/24 22:00 11/12/24 21:59 Cancel Apixaban 2.5 mg BID PO 11/13/24 22:00 11/17/24 10:48 2.5 MG Hydrocortisone Sodium Succinate 50 mg DAILY IV 11/14/24 10:00 11/17/24 10:48 50 MG Cefepime HCl 50 ml @ 12.5 mls/hr Q8HR IV 11/14/24 14:00 11/17/24 14:56 12.5 MLS/HR Furosemide 40 mg BIDD IV 11/14/24 18:00 11/16/24 18:07 40 MG Phenylephrine HCl 250 ml @ 30 mls/hr Q8H20M IV 11/15/24 09:00 11/17/24 15:32 30 MLS/HR Propofol 100 ml @ 2.088 mls/ hr Q24H IV 11/15/24 11:30 Fentanyl Citrate 250 ml @ 2.5 mls/hr Q24H IV 11/15/24 11:45 11/17/24 10:50 5 MLS/HR Purified Water 150 ml Q6HR GT 11/15/24 18:00 11/17/24 11:59 150 ML Metronidazole 100 ml @ 100 mls/hr Q8HR IV 11/16/24 14:45 11/17/24 14:56 100 MLS/HR Enteral Nutritional Formula 1,000 ml 40ML/HR GT 11/17/24 00:00 Acetaminophen 650 mg Q4HR PRN GT 11/17/24 08:30 objective The patient is well-nourished and well-developed with no distress. Intubated MENTAL STATUS: Subjective CRANIAL NERVES: Pupils are equal, round and reactive. This corneal reflex and doll's eye phenomena. No some facial weakness, she has gag reflexes. SENSATION: Okay to light touch and painful stimuli MOTOR: Normal tone in the upper and lower extremity. Normal muscle bulk. No fasciculations. Subjective REFLEXES: Deep tendon reflexes are symmetrical. No pathological reflexes. CEREBELLAR/COORDINATION: Deferred GAIT/STATION: deferred. laboratory and microbiology Laboratory Tests 11/17/24 13:33 11/17/24 07:58 11/17/24 03:15 Test 11/17/24 03:15 Range/Units Serum Glucose 116 H 74-106 mg/dL Problem List Cardiopulmonary arrest Status post CPR Reintubated on 11/14/2024 Metabolic encephalopathy Hypoxic encephalopathy Congestive heart failure Leukocytosis/sepsis/septic shock Respiratory failure Elevated liver function tests AFib S/P pacemaker insertion on 10/17/2024 ? Chronic organic brain syndrome Assessment/Plan Monitoring Supportive treatment ICU care Stabilize vitals/pressor drip Respiratory support/ vent management Oxygen DVT prophylaxis GI prophylaxis Cardiology on case Pulmonology on case Nephrology on case Need more history This medical document was created using an electronic medical record system with [employer] computerized dictation system. Although this document has been carefully reviewed, there may still be some phonetic and typographical errors. These areas are purely typographical due to imperfections of the software programs, and do not reflect any compromise in the patient's medical care. Prognosis guarded Dietary Evaluation Review Comments: 1) TF Jevity 1.2Cal @ 55 ml/hr. x 24hr along with Pro-stat 1 pk daily. Start @ 20ml/hr, increase 10ml/hr Q4H until goal is reached. TF @ goal volume provides 1684 kcal (100% energy needs), 88 gm protein (100% protein needs), 1065 ml free water. 2) Water flush 100ml Q4H if allowed, adjust PRN 3) Advance to cardiac diet as medically feasible 4) Monitor NPO status, lab values, wt trend, I/O Expected Outcomes/Goals: To meet >75% estimated needs within 7 days Lab values to improve Fu 2-3 days Plan discussed with: Other CAROLINE ROBB MD Nov 17, 2024 16:12
--- NOTE | 2024-11-17 16:26 | DVHEEG2 ---
Neurology EEG Procedural Note Procedural Note EXAM DATE: 11/12/2024 REFERRING DOCTOR: Dr. Robb TECHNIQUE: Eighteen channels of EEG, 2 channels of EOG, and 1 channel of EKG were recorded using the International 10/20 system. CLINICAL DATA: The patient was referred for an EEG evaluation for the evidence of seizure disorder. MEDICATIONS: Sedated chart BACKGROUND ACTIVITY: She is not cooperative with this study, there was significant amount of electrode artifacts. This background activity consisted of fairly regulated 6 Hz rhythmic waveforms, symmetrically distributed over both posterior quadrants and was reactive to external stimuli, intermixed with this was diffuse low amplitude theta activity over both hemispheres ACTIVATION: Hyperventilation: Not done Photic Stimulation: Not done Sleep: Not seen IMPRESSION: This is a mildly abnormal EEG, this EEG seen in mild cerebral dysfunction due to metabolic/hypoxic encephalopathy or medication effects, please correlate clinically. The EKG channel showed a regular heart rate of 64 per minute[place] [address] CAROLINE ROBB MD Nov 17, 2024 16:26
--- NOTE | 2024-11-17 16:28 | DVHEEG2 ---
Neurology EEG Procedural Note Procedural Note EXAM DATE: 11/17/2024 REFERRING DOCTOR: Dr. Robb TECHNIQUE: Eighteen channels of EEG, 2 channels of EOG, and 1 channel of EKG were recorded using the International 10/20 system. CLINICAL DATA: The patient was referred for an EEG evaluation for the evidence of seizure disorder. MEDICATIONS: Sedated chart BACKGROUND ACTIVITY: This record showed diffuse low amplitude theta activity that was reactive to external stimuli ACTIVATION: Hyperventilation: Not done Photic Stimulation: Not done Sleep: Nonresponsiveness IMPRESSION: This is a mildly abnormal EEG, this EEG seen in mild cerebral dysfunction due to metabolic/hypoxic encephalopathy or medication effects, please correlate clinically. The EKG channel showed a regular heart rate of 64 per minute[place] [address] CAROLINE ROBB MD Nov 17, 2024 16:28
--- NOTE | 2024-11-17 16:34 | DVHPN2 ---
Progress Note Date Seen: Nov 17, 2024 Has the PT tested + for MRSA If YES, has PT been informed?: No Medical Necessity Reason Pt with a Central, PICC or Fol: No The following are medically ne: PICC Line, Cutler Catheter Reason for cutler catheter: Strict I&O Subjective Patient reports: Other Review of Systems: Deferred Objective vital signs Vital Sign Date Time Temp Pulse Resp B/P (MAP) Pulse Ox O2 Delivery O2 Flow Rate FiO2 11/17/24 16:15 98.6 55 18 109/55 (73) 100 209.5 11/17/24 16:00 Mechanical Ventilator+ 30 30 Total Intake and Output 11/16/24 11/16/24 11/17/24 15:00 23:00 07:00 Intake Total 681.25 ml 1430.50 ml 1015 ml Output Total 1350 ml 2000 ml Balance 681.25 ml 80.50 ml -985 ml medications Current Medications Medications Dose Ordered Sig/Liliam Route Start Time Stop Time Status Last Admin Dose Admin Amino Acids 0 ml @ 0 mls/hr PER PHARMACY IV 10/15/24 18:45 Cancel Dextrose 50 ml UD IV 10/16/24 09:30 Cancel Vancomycin HCl 0 ml @ 0 mls/hr UD IV 10/19/24 14:00 Cancel Metoprolol Tartrate 2.5 mg Q6HPRN PRN IV 10/31/24 09:15 Amino Acids 0 ml @ 0 mls/hr PER PHARMACY IV 11/04/24 22:00 Cancel Amino Acid Protein 30 ml DAILY PO 11/04/24 10:00 11/17/24 10:49 30 ML Pantoprazole Sodium 40 mg BID IV 11/09/24 22:00 11/17/24 10:48 40 MG Morphine Sulfate 4 mg Q4HPRN PRN IV 11/10/24 13:00 11/14/24 01:15 4 MG Acetaminophen/ Hydrocodone Bitart 1 tab Q4HPRN PRN GT 11/10/24 15:30 11/13/24 13:46 1 TAB Mexiletine HCl 150 mg TID GT 11/10/24 22:00 11/17/24 14:56 150 MG Fat Emulsion Intravenous 150 ml/Sodium Acetate 20 meq/Potassium Acetate 30 meq/ Potassium Phosphate 19.8 meq/Calcium Gluconate 2.3 meq/ Magnesium Sulfate 4 meq/ Multivitamins 10 ml/Chromium/ Copper/Manganese/ Zinc 1 ml/Amino Acids/Dextrose/ Purified Water 1,596.4462 ml @ 66 mls/hr [id number] IV 11/11/24 22:00 11/12/24 21:59 Cancel Apixaban 2.5 mg BID PO 11/13/24 22:00 11/17/24 10:48 2.5 MG Hydrocortisone Sodium Succinate 50 mg DAILY IV 11/14/24 10:00 11/17/24 10:48 50 MG Cefepime HCl 50 ml @ 12.5 mls/hr Q8HR IV 11/14/24 14:00 11/17/24 14:56 12.5 MLS/HR Furosemide 40 mg BIDD IV 11/14/24 18:00 11/16/24 18:07 40 MG Phenylephrine HCl 250 ml @ 30 mls/hr Q8H20M IV 11/15/24 09:00 11/17/24 15:32 30 MLS/HR Propofol 100 ml @ 2.088 mls/ hr Q24H IV 11/15/24 11:30 Fentanyl Citrate 250 ml @ 2.5 mls/hr Q24H IV 11/15/24 11:45 11/17/24 10:50 5 MLS/HR Purified Water 150 ml Q6HR GT 11/15/24 18:00 11/17/24 11:59 150 ML Metronidazole 100 ml @ 100 mls/hr Q8HR IV 11/16/24 14:45 11/17/24 14:56 100 MLS/HR Enteral Nutritional Formula 1,000 ml 40ML/HR GT 11/17/24 00:00 Acetaminophen 650 mg Q4HR PRN GT 11/17/24 08:30 Examination: GENERAL:Abnormal, LUNGS:Abnormal, MSK:Abnormal, SKIN:Abnormal, NEURO:Abnormal laboratory and microbiology Laboratory Tests 11/17/24 13:33 11/17/24 07:58 11/17/24 03:15 Test 11/17/24 03:15 Range/Units Serum Glucose 116 H 74-106 mg/dL Microbiology Date/Time Source Procedure Growth Status 11/16/24 04:50 Urine - [place] Port Urine Culture - Preliminary Resulted 11/14/24 11:50 Sputum Endotracheal Wash Gram Stain - Final Resulted 11/14/24 11:50 Sputum Endotracheal Wash Respiratory Culture - Preliminary Resulted 11/14/24 08:50 Blood Blood Culture - Preliminary NO GROWTH AFTER 72 HOURS OF INCUBATION. Resulted 11/14/24 04:30 Nose MRSA Screen - Final Complete Problem List/Assessment/Plan Problem List/Assessment/Plan BARBIE-hemodynamic mediated etiology Metabolic acidosis proteinuria Cardiac arrest status post V-tach chfref ef 15-20 VDRF hypernatremia recs k replace We will follow renal function closely Plan discussed with: Other My Orders My Orders Orders - OLIVIER GOMEZ MD Procedure Category Date Status Time Communication Order ORDERS 11/16/24 Transmitted 20:45 D5w 5% (Dextrose 5%) PHA 11/16/24 In Process 21:00 Dietary Evaluation Review Comments: 1) TF Jevity 1.2Cal @ 55 ml/hr. x 24hr along with Pro-stat 1 pk daily. Start @ 20ml/hr, increase 10ml/hr Q4H until goal is reached. TF @ goal volume provides 1684 kcal (100% energy needs), 88 gm protein (100% protein needs), 1065 ml free water. 2) Water flush 100ml Q4H if allowed, adjust PRN 3) Advance to cardiac diet as medically feasible 4) Monitor NPO status, lab values, wt trend, I/O Expected Outcomes/Goals: To meet >75% estimated needs within 7 days Lab values to improve Fu 2-3 days OLIVIER GOMEZ MD Nov 17, 2024 16:34
--- NOTE | 2024-11-17 20:34 | DVHPN2 ---
Subjective DOS: 11/17/2024 Patient seen and examined at bedside. Sedated, intubated on mechanical ventilator. Overnight events reviewed. Changes from previous H/P or p: No Changes Objective Vitals Vital Signs Date Time Temp Pulse Resp B/P (MAP) Pulse Ox O2 Delivery O2 Flow Rate FiO2 11/17/24 20:18 58 18 141/63 (89) 100 30 11/17/24 18:45 98.6 209.5 11/17/24 18:00 Mechanical Ventilator+ Intake/Output Intake and Output 11/17/24 07:00 Intake Total 3126.75 ml Output Total 3350 ml Balance -223.25 ml Intake Oral 300 ml IV Total 2347.75 ml Tube Feeding 479 ml Output Urine Total 3350 ml Stool Total 0 ml Exam Gen.: Patient lying in bed in medical ICU. Sedated, intubated on mechanical ventilator. Head: Normocephalic, atraumatic. Eyes: PERRLA. Ears: Normal external anatomy. Throat: Endotracheal tube and orogastric tube in place. Neck: Supple, trachea midline. Chest: Transmitted breath sounds bilaterally. Decreased air entry bilaterally. No wheezing. Bibasilar crackles. Cardiovascular: Positive S1, positive S2. Regular rate and rhythm. Abdomen: Positive bowel sounds in all 4 quadrants. Soft, nontender, nondistended. : [place] in place. Normal external genitalia. Rectal: Deferred. Skin: Warm, dry. Intact. Extremities: 2+ radial pulses bilaterally. No lower extremity edema. Neuro: Sedated. Medications Current Medications Medications Dose Ordered Sig/Liliam Route Start Time Stop Time Status Last Admin Dose Admin Amino Acids 0 ml @ 0 mls/hr PER PHARMACY IV 10/15/24 18:45 Cancel Dextrose 50 ml UD IV 10/16/24 09:30 Cancel Vancomycin HCl 0 ml @ 0 mls/hr UD IV 10/19/24 14:00 Cancel Metoprolol Tartrate 2.5 mg Q6HPRN PRN IV 10/31/24 09:15 Amino Acids 0 ml @ 0 mls/hr PER PHARMACY IV 11/04/24 22:00 Cancel Amino Acid Protein 30 ml DAILY PO 11/04/24 10:00 11/17/24 10:49 30 ML Pantoprazole Sodium 40 mg BID IV 11/09/24 22:00 11/17/24 20:14 40 MG Morphine Sulfate 4 mg Q4HPRN PRN IV 11/10/24 13:00 11/14/24 01:15 4 MG Acetaminophen/ Hydrocodone Bitart 1 tab Q4HPRN PRN GT 11/10/24 15:30 11/13/24 13:46 1 TAB Mexiletine HCl 150 mg TID GT 11/10/24 22:00 11/17/24 20:15 150 MG Fat Emulsion Intravenous 150 ml/Sodium Acetate 20 meq/Potassium Acetate 30 meq/ Potassium Phosphate 19.8 meq/Calcium Gluconate 2.3 meq/ Magnesium Sulfate 4 meq/ Multivitamins 10 ml/Chromium/ Copper/Manganese/ Zinc 1 ml/Amino Acids/Dextrose/ Purified Water 1,596.4462 ml @ 66 mls/hr [id number] IV 11/11/24 22:00 11/12/24 21:59 Cancel Apixaban 2.5 mg BID PO 11/13/24 22:00 11/17/24 20:16 2.5 MG Hydrocortisone Sodium Succinate 50 mg DAILY IV 11/14/24 10:00 11/17/24 10:48 50 MG Cefepime HCl 50 ml @ 12.5 mls/hr Q8HR IV 11/14/24 14:00 11/17/24 14:56 12.5 MLS/HR Furosemide 40 mg BIDD IV 11/14/24 18:00 11/17/24 18:25 40 MG Phenylephrine HCl 250 ml @ 30 mls/hr Q8H20M IV 11/15/24 09:00 11/17/24 15:32 30 MLS/HR Propofol 100 ml @ 2.088 mls/ hr Q24H IV 11/15/24 11:30 Fentanyl Citrate 250 ml @ 2.5 mls/hr Q24H IV 11/15/24 11:45 11/17/24 10:50 5 MLS/HR Purified Water 150 ml Q6HR GT 11/15/24 18:00 11/17/24 18:25 150 ML Metronidazole 100 ml @ 100 mls/hr Q8HR IV 11/16/24 14:45 11/17/24 20:15 100 MLS/HR Enteral Nutritional Formula 1,000 ml 40ML/HR GT 11/17/24 00:00 Acetaminophen 650 mg Q4HR PRN GT 11/17/24 08:30 Laboratory Results Laboratory Tests 11/17/24 03:15 11/17/24 07:58 11/17/24 13:33 Chemistry Test 11/17/24 03:15 Albumin 2.7 g/dL (3.2-4.8) L Calcium Level 8.3 mg/dL (8.7-10.4) L Magnesium Level 1.6 mg/dL (1.6-2.6) Total Protein 5.1 g/dL (5.7-8.2) L Coagulation Test 11/17/24 03:15 Prothrombin Time 19.5 sec (9.3-11.8) H Prothrombin Time INR 1.97 (0.9-1.15) H Activated Partial Thromboplast Time 35.1 SEC (24.5-34.5) H LFT Test 11/17/24 03:15 Alanine Aminotransferase (ALT) 4207 U/L (7-40) H Alkaline Phosphatase 298 U/L (46-116) H Aspartate Amino Transferase (AST) 604 U/L (13-40) H Total Bilirubin 5.7 mg/dL (0.2-1.0) H Urinalysis Test 10/09/24 22:25 11/15/24 04:00 Urine Creatinine 31.20 mg/dL (30.0-125.0) Urine Protein/Creatinine Ratio 0.72 Urine Sodium 79 mmol/L (40-220) Urine Total Protein 22.5 mg/dL (1-14) H Urine Color Yellow (Yellow) Urine Clarity Turbid (Clear) H Urine pH 5.0 (5.0-9.0) Urine Specific [place] 1.012 (1.001-1.035) Urine Protein Trace (Negative) H Urine Ketones Negative (Negative) Urine Blood 2+ /uL (Negative) H Urine Nitrite Negative (Negative) Urine Bilirubin Negative (Negative) Urine Urobilinogen Normal mg/dL (Negative) Urine Leukocyte Esterase 1+ /uL (Negative) Urine RBC 3 /hpf (0 - 4) Urine Microscopic WBC 14 /HPF (0-5) H Urine Squamous Epithelial Cells Few /hpf (<5) Urine Calcium Oxalate Crystals Few (None Seen) Urine Amorphous Crystals Few /hpf (None Seen) Urine Bacteria Few /hpf (None Seen) H Urine Hyaline Casts Mod /lpf (0 - 2) Urine Mucus Few (None Seen) Urine Glucose Normal mg/dL (Normal) Microbiology Microbiology Date/Time Source Procedure Growth Status 11/16/24 04:50 Urine - [place] Urine Culture - Preliminary Resulted 11/14/24 11:50 Sputum Endotracheal Wash Gram Stain - Final Resulted 11/14/24 11:50 Sputum Endotracheal Wash Respiratory Culture - Preliminary Resulted 11/14/24 08:50 Blood Blood Culture - Preliminary NO GROWTH AFTER 72 HOURS OF INCUBATION. Resulted 11/14/24 04:30 Nose MRSA Screen - Final Complete Assessment/Plan Assessment/Plan Impression: Acute hypoxic respiratory failure On mechanical ventilator s/p cardiac arrest Ventricular tachycardia CPR <5 min Elevated troponin Atelectasis Anemia Plan: On mechanical ventilator ABG reviewed. Alkalemia due to respiratory alkalosis Currently on assist control with respiratory rate of 18, tidal volume 450, peep of five, FiO2 of 30% Titrate FiO2 to keep sats above 92%. VAP bundle Chest x-ray imaging report reviewed. Endotracheal tube in place. Cardiomegaly. No acute opacities. No pleural effusion or pneumothorax. Sternotomy changes. Continue antibiotics. F/u cultures. Sputum culture normal from normal oropharyngeal melissa. Urine culture notable for Gram-positive melissa, greater than 100 K. follow up final report. Continue antifungal IV steroids On pressors for hemodynamic support. On Stone-Synephrine On stress dose steroids. Taper down as tolerated. Vitamin K was given Monitor hemoglobin Accu-Cheks, ISS PRN. Monitor labs Monitor renal function. On diuresis with Lasix twice daily. Monitor electrolytes. Supplement as necessary. Supplement potassium Supplement magnesium Monitor ins and outs. Maintain euvolemia Cardiology recommendations appreciated. Monitor hemoglobin On Protonix twice daily GI/DVT prophylaxis. On Eliquis twice daily. Prognosis: Poor given patient's multiple co-morbidities. Condition: Critical Rest of plan per hospitalist and other consultants. A total of 35 minutes of critical care time was spent reviewing the patient record, examining the patient, making a diagnostic and therapeutic plan, discussing this plan with the medical personnel, following up on diagnostic studies and following the patient for clinical stability excluding any and all procedures. At least 50% of this time was spent in direct, [id number] contact. Thank you, YURI Gomez, for allowing me to participate in this patient's care. Further recommendations will depend on the patient's clinical course. Please do not hesitate to contact me if you have any questions or concerns. This medical document was created using an electronic medical record system with [employer] computerized dictation system. Although these documentations are being carefully reviewed, there may still be some phonetic and typographical changes. The errors are purely typographical, due to imperfection on the software program, and do not reflect any compromise in the patient's medical care. Plan discussed with: Other (CEE Guerra) Date of Service: Nov 17, 2024 Billing Provider: KENNY FROST MD Common Visit Codes: [id number] INP/OBS CARE(HIGH), [id number] CARE 30-74 MIN KENNY FROST MD Nov 17, 2024 20:34
--- NOTE | 2024-11-17 21:29 | DVHPN2 ---
Progress Note - Dictate Date Seen: Nov 17, 2024 Has the PT tested + for MRSA If YES, has PT been informed?: No Medical Necessity Reason Pt with a Central, PICC or Fol: No The following are medically ne: PICC Line, Cutler Catheter Reason for cutler catheter: Strict I&O Subjective Patient is intubated sedated FiO2 30% She had a EEG study that was slightly abnormal No active GI bleeding reported, Hb is stable at 10.8. Two bowel movements recorded on the 14 November Tolerating tube feedings vital signs Vital Sign Date Time Temp Pulse Resp B/P (MAP) Pulse Ox O2 Delivery O2 Flow Rate FiO2 11/17/24 20:45 98.4 62 17 138/54 (82) 100 209.1 11/17/24 20:18 30 11/17/24 20:00 Mechanical Ventilator+ Total Intake and Output 11/16/24 11/16/24 11/17/24 15:00 23:00 07:00 Intake Total 681.25 ml 1430.50 ml 1015 ml Output Total 1350 ml 2000 ml Balance 681.25 ml 80.50 ml -985 ml medications Current Medications Medications Dose Ordered Sig/Liliam Route Start Time Stop Time Status Last Admin Dose Admin Amino Acids 0 ml @ 0 mls/hr PER PHARMACY IV 10/15/24 18:45 Cancel Dextrose 50 ml UD IV 10/16/24 09:30 Cancel Vancomycin HCl 0 ml @ 0 mls/hr UD IV 10/19/24 14:00 Cancel Metoprolol Tartrate 2.5 mg Q6HPRN PRN IV 10/31/24 09:15 Amino Acids 0 ml @ 0 mls/hr PER PHARMACY IV 11/04/24 22:00 Cancel Amino Acid Protein 30 ml DAILY PO 11/04/24 10:00 11/17/24 10:49 30 ML Pantoprazole Sodium 40 mg BID IV 11/09/24 22:00 11/17/24 20:14 40 MG Morphine Sulfate 4 mg Q4HPRN PRN IV 11/10/24 13:00 11/14/24 01:15 4 MG Acetaminophen/ Hydrocodone Bitart 1 tab Q4HPRN PRN GT 11/10/24 15:30 11/13/24 13:46 1 TAB Mexiletine HCl 150 mg TID GT 11/10/24 22:00 11/17/24 20:15 150 MG Fat Emulsion Intravenous 150 ml/Sodium Acetate 20 meq/Potassium Acetate 30 meq/ Potassium Phosphate 19.8 meq/Calcium Gluconate 2.3 meq/ Magnesium Sulfate 4 meq/ Multivitamins 10 ml/Chromium/ Copper/Manganese/ Zinc 1 ml/Amino Acids/Dextrose/ Purified Water 1,596.4462 ml @ 66 mls/hr [id number] IV 11/11/24 22:00 11/12/24 21:59 Cancel Apixaban 2.5 mg BID PO 11/13/24 22:00 11/17/24 20:16 2.5 MG Hydrocortisone Sodium Succinate 50 mg DAILY IV 11/14/24 10:00 11/17/24 10:48 50 MG Cefepime HCl 50 ml @ 12.5 mls/hr Q8HR IV 11/14/24 14:00 11/17/24 21:15 12.5 MLS/HR Furosemide 40 mg BIDD IV 11/14/24 18:00 11/17/24 18:25 40 MG Phenylephrine HCl 250 ml @ 30 mls/hr Q8H20M IV 11/15/24 09:00 11/17/24 15:32 30 MLS/HR Propofol 100 ml @ 2.088 mls/ hr Q24H IV 11/15/24 11:30 Fentanyl Citrate 250 ml @ 2.5 mls/hr Q24H IV 11/15/24 11:45 11/17/24 10:50 5 MLS/HR Purified Water 150 ml Q6HR GT 11/15/24 18:00 11/17/24 18:25 150 ML Metronidazole 100 ml @ 100 mls/hr Q8HR IV 11/16/24 14:45 11/17/24 20:15 100 MLS/HR Enteral Nutritional Formula 1,000 ml 40ML/HR GT 11/17/24 00:00 Acetaminophen 650 mg Q4HR PRN GT 11/17/24 08:30 objective Examination: GENERAL:Normal, LUNGS: Decreased breath sounds at bases ABDOMEN: Soft, dressing dry, G-tube in place, SKIN:Normal, NEURO:Normal laboratory and microbiology Laboratory Tests 11/17/24 13:33 11/17/24 07:58 11/17/24 03:15 Test 11/17/24 03:15 Range/Units Serum Glucose 116 H 74-106 mg/dL Problems(with codes): (1) Shock liver (2) Pneumonia (3) Sepsis, unspecified organism (4) Ventricular fibrillation (5) Cardiac arrest (6) S/P gastrostomy Prognosis Plan Continue supportive care Monitor labs PT/INR, ammonia Appreciate urology renal and cardiology follow up Continue Protonix 40 mg IV daily Advance tube feedings to goal rate as tolerated IV vitamin K once daily for 3 days continue antibiotics, consider anaerobic coverage consider MRCP once stable Tapered hydrocortisone to q.12 hours on 11/06/2024 Tapered hydrocortisone to once daily on 11/13/2024 s/p PEG tube placement monitor LFT's Keep PT/INR therapeutic Hemoglobin stable, transfuse if HB 7 or less Continue tube feedings at 40cc/hr Decreased metoclopramide to 5 mg IV b.i.d. JAIDEN positive, outpatient follow up with GI recommended for further workup Dietary Evaluation Review Comments: 1) TF Jevity 1.2Cal @ 55 ml/hr. x 24hr along with Pro-stat 1 pk daily. Start @ 20ml/hr, increase 10ml/hr Q4H until goal is reached. TF @ goal volume provides 1684 kcal (100% energy needs), 88 gm protein (100% protein needs), 1065 ml free water. 2) Water flush 100ml Q4H if allowed, adjust PRN 3) Advance to cardiac diet as medically feasible 4) Monitor NPO status, lab values, wt trend, I/O Expected Outcomes/Goals: To meet >75% estimated needs within 7 days Lab values to improve Fu 2-3 days Plan discussed with: Other (Dr Renner and ICU Nurse) CANDI BOSS MD Nov 17, 2024 21:29
[2024-11-18] VITALS (112 sets, daily range): BP systolic 79–141; BP diastolic 46–73; PULSE 52–67; RESP 12–24; TEMP 97–99.5; O2SAT 95–100
[2024-11-18 03:03] LABS: Hematocrit 37.4 % (36.0-46.0); Hemoglobin 12.4 g/dL (12.2-16.2); Mean Corpuscular Hemoglobin 30.0 pg (28.0-32.0); Mean Corpuscular Volume 90.7 fL (80.0-100.0); Nucleated Red Blood Cells % 0.7 %
[2024-11-18 03:47] LABS: Carbon Dioxide 27 mmol/L (20-31)
[2024-11-18 03:53] LABS: BUN/Creatinine Ratio 53.6 (10.0-20.0); Magnesium 2.0 mg/dL (1.6-2.6)
[2024-11-18 03:54] LABS: Alkaline Phosphatase 282 U/L (46-116); Anion Gap 13 (5-15); Blood Urea Nitrogen 30 mg/dL (9-23); Calcium 8.1 mg/dL (8.7-10.4); Chloride 102 mmol/L (98-107); Glucose 118 mg/dL (74-106); Sodium 142 mmol/L (136-145); Total Protein 5.0 g/dL (5.7-8.2)
[2024-11-18 03:55] LABS: Alanine Aminotransferase 2809 U/L (7-40); Albumin 2.7 g/dL (3.2-4.8); Bilirubin, Total 4.2 mg/dL (0.2-1.0); Potassium 2.5 mmol/L (3.5-5.1)
[2024-11-18] MEDS: POTASSIUM CHL 20MEQ/100ML 100 ML IV SCH (04:16)
--- NOTE | 2024-11-18 06:05 | DVH ---
CHEST RADIOGRAPH Indication: intubated Technique: Single frontal view of the chest was obtained COMPARISON: XY CHEST PORTABLE on DOS: 11/17/24, XY CHEST PORTABLE on DOS: 11/16/24, XY CHEST PORTABLE o n DOS: 11/15/24, XY CHEST XRAY 1 VIEW on DOS: 11/14/24, XY CHEST PORTABLE on DOS: 11/14/24 FINDINGS: Lines and Tubes: Mild interval advancement of the endotracheal tube such that the tip now projects ap proximately 3.3 cm above the level of the tyler. Lungs: Clear Pleura: No effusion. No pneumothorax. Cardiomediastinal contours: Unremarkable Bones: Unremarkable IMPRESSION: 1. Mild interval advancement of the endotracheal tube such that the tip now projects approximately 3. 3 cm above the level of the tyler. 2. No evidence of acute cardiopulmonary process.
[2024-11-18 07:17] LABS: Base Excess 4.2 mmol/L (-2.0-3.0)
--- NOTE | 2024-11-18 13:29 | DVHPN2 ---
Progress Note - Dictate Date Seen: Nov 18, 2024 Has the PT tested + for MRSA If YES, has PT been informed?: No Medical Necessity Reason Pt with a Central, PICC or Fol: No The following are medically ne: PICC Line, Cutler Catheter Reason for cutler catheter: Strict I&O vital signs Vital Sign Date Time Temp Pulse Resp B/P (MAP) Pulse Ox O2 Delivery O2 Flow Rate FiO2 11/18/24 11:46 55 16 96/48 (64) 100 30 11/18/24 11:37 Mechanical Ventilator+ 11/18/24 08:36 98.6 209.5 Total Intake and Output 11/17/24 11/17/24 11/18/24 14:59 22:59 06:59 Intake Total 1075.0 ml 1398.0 ml 941.25 ml Output Total 400 ml 2000 ml Balance 1075.0 ml 998.0 ml -1058.75 ml medications Current Medications Medications Dose Ordered Sig/Liliam Route Start Time Stop Time Status Last Admin Dose Admin Amino Acids 0 ml @ 0 mls/hr PER PHARMACY IV 10/15/24 18:45 Cancel Dextrose 50 ml UD IV 10/16/24 09:30 Cancel Vancomycin HCl 0 ml @ 0 mls/hr UD IV 10/19/24 14:00 Cancel Metoprolol Tartrate 2.5 mg Q6HPRN PRN IV 10/31/24 09:15 Amino Acids 0 ml @ 0 mls/hr PER PHARMACY IV 11/04/24 22:00 Cancel Amino Acid Protein 30 ml DAILY PO 11/04/24 10:00 11/18/24 07:34 30 ML Pantoprazole Sodium 40 mg BID IV 11/09/24 22:00 11/18/24 07:34 40 MG Morphine Sulfate 4 mg Q4HPRN PRN IV 11/10/24 13:00 11/14/24 01:15 4 MG Acetaminophen/ Hydrocodone Bitart 1 tab Q4HPRN PRN GT 11/10/24 15:30 11/13/24 13:46 1 TAB Mexiletine HCl 150 mg TID GT 11/10/24 22:00 11/18/24 12:06 150 MG Fat Emulsion Intravenous 150 ml/Sodium Acetate 20 meq/Potassium Acetate 30 meq/ Potassium Phosphate 19.8 meq/Calcium Gluconate 2.3 meq/ Magnesium Sulfate 4 meq/ Multivitamins 10 ml/Chromium/ Copper/Manganese/ Zinc 1 ml/Amino Acids/Dextrose/ Purified Water 1,596.4462 ml @ 66 mls/hr [id number] IV 11/11/24 22:00 11/12/24 21:59 Cancel Apixaban 2.5 mg BID PO 11/13/24 22:00 11/18/24 07:34 2.5 MG Hydrocortisone Sodium Succinate 50 mg DAILY IV 11/14/24 10:00 11/18/24 07:34 50 MG Cefepime HCl 50 ml @ 12.5 mls/hr Q8HR IV 11/14/24 14:00 11/18/24 12:06 12.5 MLS/HR Furosemide 40 mg BIDD IV 11/14/24 18:00 11/18/24 05:57 40 MG Phenylephrine HCl 250 ml @ 30 mls/hr Q8H20M IV 11/15/24 09:00 11/18/24 06:34 30 MLS/HR Propofol 100 ml @ 2.088 mls/ hr Q24H IV 11/15/24 11:30 Fentanyl Citrate 250 ml @ 2.5 mls/hr Q24H IV 11/15/24 11:45 11/17/24 10:50 5 MLS/HR Purified Water 150 ml Q6HR GT 11/15/24 18:00 11/18/24 12:06 150 ML Metronidazole 100 ml @ 100 mls/hr Q8HR IV 11/16/24 14:45 11/18/24 12:06 100 MLS/HR Enteral Nutritional Formula 1,000 ml 40ML/HR GT 11/17/24 00:00 Acetaminophen 650 mg Q4HR PRN GT 11/17/24 08:30 objective HEENT: EOMI, PERRLA, normal external inspect of ears, no icterus, no nasal drainage Neck: no carotid bruit, no jugular venous distention (JVD), no lymphadenopathy Chest: normal thorax Respiratory: Intubated, clear to auscultation, normal air movement Cardiovascular: regular rate and rhythm, no diastolic murmur, no jugular venous distention (JVD), no rub, no systolic murmur Abdominal: soft, no hepatomegaly, no mass, no splenomegaly, no tenderness Genitourinary: grossly normal external Musculoskeletal: no joint tenderness, no swelling Extremities: normal pulses, no calf tenderness, no clubbing, no cyanosis, no edema Skin: no bruising, no jaundice, no rash Neurological: No focal deficit laboratory and microbiology Laboratory Tests 11/18/24 02:25 Test 11/18/24 02:25 Range/Units Serum Glucose 118 H 74-106 mg/dL Problem List Cardiac Arrest with Ventricular Fibrillation Assessment: Patient experienced cardiac arrest with ventricular fibrillation on 10/07/24, witnessed by family members who initiated CPR. EMS found the patient in ventricular fibrillation and administered shock therapy. Rhythm strip analysis confirmed ventricular fibrillation. Patient required intubation and sedation upon ED arrival. Currently admitted to ICU for close observation. Cardiology has been consulted and plans for AICD placement, likely on Tuesday. Infectious disease clearance has been obtained for the AICD procedure, addressing initial concerns of leukocytosis which is now improving. Status post-cardiac arrest. Plan: - Continue ICU monitoring - Proceed with AICD placement as planned (likely Tuesday), cleared by infectious disease. - Maintain intubation and sedation until AICD placement - Continue Heparin drip for paroxysmal atrial fibrillation - Continue Mexitil - DC amiodarone due to transaminitis - added esmolol drip per Cardiology for AFib and added push doses of digoxin Coronary Artery Disease Assessment: Patient with history of 2-vessel CABG (Coronary Artery Bypass Grafting). Surgical intervention previously performed to address significant coronary artery stenosis. Plan: - Continue medical management - Follow up with cardiology for ongoing coronary artery disease management Acute and Chronic Systolic Heart Failure Assessment: Patient has acute and chronic systolic heart failure with severely reduced left ventricular function. Ejection fraction is estimated at 15-20%. RICHIE findings are consistent with severely reduced left ventricular ejection fraction, previously implanted mitral ring, up to moderate mitral stenosis and regurgitation, and moderate aortic insufficiency. Plan: - Continue cardiology consultation - continue IV diuretics (IV Lasix) - Monitor renal function Acute Hypoxic Respiratory Failure Assessment: Patient is currently intubated due to acute hypoxic respiratory failure. Dr. Downey from pulmonology is managing this aspect of care. Plan: - Maintain current intubation as per pulmonology recommendation - Proceed with CPAP trials when deemed appropriate by pulmonology Transaminitis Assessment: Patient has elevated liver function tests, likely secondary to amiodarone use. Cardiology has discontinued amiodarone in response. Plan: - Monitor liver function tests - Amiodarone discontinued as per cardiology Enterobacter PNA Assessment: Sputum culture positive for Enterobacter. Plan: - Continue treatment with Eratapenem to complete 10 days regimen -Infectious disease consult Hemodynamic Support Assessment: Patient requires vasopressor support for hemodynamic stability. Plan: - Continue vasopressin - Continue neosynephrine Paroxysmal a fib -DC amiodarone -continue with heparin gtt Shock liver GI consult, trend liver enzymes, hepatitis panel was negative. Ultrasound of the liver had no acute findings. Assessment/Plan Subjective: Patient remains sedated on the ventilator. Objective: Potassium is 2.5. Replacement electrolytes have been ordered. Patient was admitted on 10/07/2024 status post cardiac arrest. Patient has elevated INR. Vitamin K given. Last vitamin K dose given on 11/16/2024 for INR over 3. Patient was on antibiotics with Flagyl and cefepime. This is patient's second intubation. Plan: LTAC eval. Continue tube feeding as tolerated. Replace electrolytes. Continue IV antibiotics. Plan to transfer to LTAC facility once bed is available. Dietary Evaluation Review Comments: 1) TF Jevity 1.2Cal @ 55 ml/hr. x 24hr along with Pro-stat 1 pk daily. Start @ 20ml/hr, increase 10ml/hr Q4H until goal is reached. TF @ goal volume provides 1684 kcal (100% energy needs), 88 gm protein (100% protein needs), 1065 ml free water. 2) Water flush 100ml Q4H if allowed, adjust PRN 3) Advance to cardiac diet as medically feasible 4) Monitor NPO status, lab values, wt trend, I/O Expected Outcomes/Goals: To meet >75% estimated needs within 7 days Lab values to improve Fu 2-3 days Plan discussed with: Patient, Other VIRGIEBRODIE M S[employer]IOR [employer]X DES[employer] Nov 18, 2024 13:29
[2024-11-18 14:03] LABS: Base Excess 4.6 mmol/L (-2.0-3.0)
[2024-11-18] MEDS: phytonadione 10 MG in SODIUM CHL 0.9% 50 ML IV ONE (14:07)
--- NOTE | 2024-11-18 16:09 | DVHPN2 ---
Progress Note - Dictate Date Seen: Nov 18, 2024 Has the PT tested + for MRSA If YES, has PT been informed?: No Medical Necessity Reason Pt with a Central, PICC or Fol: No The following are medically ne: PICC Line, Cutler Catheter Reason for cutler catheter: Strict I&O vital signs Vital Sign Date Time Temp Pulse Resp B/P (MAP) Pulse Ox O2 Delivery O2 Flow Rate FiO2 11/18/24 15:49 30 11/18/24 15:49 16 98 Mechanical Ventilator+ 11/18/24 15:49 55 11/18/24 15:45 95/54 (68) 11/18/24 15:37 97.3 207.1 Total Intake and Output 11/17/24 11/17/24 11/18/24 15:00 23:00 07:00 Intake Total 1072.5 ml 1348.0 ml 991.25 ml Output Total 400 ml 2000 ml Balance 1072.5 ml 948.0 ml -1008.75 ml medications Current Medications Medications Dose Ordered Sig/Liliam Route Start Time Stop Time Status Last Admin Dose Admin Amino Acids 0 ml @ 0 mls/hr PER PHARMACY IV 10/15/24 18:45 Cancel Dextrose 50 ml UD IV 10/16/24 09:30 Cancel Vancomycin HCl 0 ml @ 0 mls/hr UD IV 10/19/24 14:00 Cancel Metoprolol Tartrate 2.5 mg Q6HPRN PRN IV 10/31/24 09:15 Amino Acids 0 ml @ 0 mls/hr PER PHARMACY IV 11/04/24 22:00 Cancel Amino Acid Protein 30 ml DAILY PO 11/04/24 10:00 11/18/24 07:34 30 ML Pantoprazole Sodium 40 mg BID IV 11/09/24 22:00 11/18/24 07:34 40 MG Morphine Sulfate 4 mg Q4HPRN PRN IV 11/10/24 13:00 11/14/24 01:15 4 MG Acetaminophen/ Hydrocodone Bitart 1 tab Q4HPRN PRN GT 11/10/24 15:30 11/13/24 13:46 1 TAB Mexiletine HCl 150 mg TID GT 11/10/24 22:00 11/18/24 12:06 150 MG Fat Emulsion Intravenous 150 ml/Sodium Acetate 20 meq/Potassium Acetate 30 meq/ Potassium Phosphate 19.8 meq/Calcium Gluconate 2.3 meq/ Magnesium Sulfate 4 meq/ Multivitamins 10 ml/Chromium/ Copper/Manganese/ Zinc 1 ml/Amino Acids/Dextrose/ Purified Water 1,596.4462 ml @ 66 mls/hr [id number] IV 11/11/24 22:00 11/12/24 21:59 Cancel Apixaban 2.5 mg BID PO 11/13/24 22:00 11/18/24 07:34 2.5 MG Hydrocortisone Sodium Succinate 50 mg DAILY IV 11/14/24 10:00 11/18/24 07:34 50 MG Cefepime HCl 50 ml @ 12.5 mls/hr Q8HR IV 11/14/24 14:00 11/18/24 12:06 12.5 MLS/HR Furosemide 40 mg BIDD IV 11/14/24 18:00 11/18/24 05:57 40 MG Phenylephrine HCl 250 ml @ 30 mls/hr Q8H20M IV 11/15/24 09:00 11/18/24 06:34 30 MLS/HR Propofol 100 ml @ 2.088 mls/ hr Q24H IV 11/15/24 11:30 Fentanyl Citrate 250 ml @ 2.5 mls/hr Q24H IV 11/15/24 11:45 11/17/24 10:50 5 MLS/HR Purified Water 150 ml Q6HR GT 11/15/24 18:00 11/18/24 12:06 150 ML Metronidazole 100 ml @ 100 mls/hr Q8HR IV 11/16/24 14:45 11/18/24 12:06 100 MLS/HR Enteral Nutritional Formula 1,000 ml 40ML/HR GT 11/17/24 00:00 Acetaminophen 650 mg Q4HR PRN GT 11/17/24 08:30 Potassium Bicarbonate 50 meq BID PEG 11/18/24 22:00 laboratory and microbiology Laboratory Tests 11/18/24 15:06 11/18/24 02:25 Test 11/18/24 02:25 Range/Units Serum Glucose 118 H 74-106 mg/dL Assessment/Plan Still in ICU, intubated and on pressure support. No Arrhythmia identified during this episodes. They are looking into possibility of Tracheostomy (maybe to be performed in [place]?) Patient is a 54-year-old female who was brought to the hospital for witnessed syncope. She is intubated and is being managed in ICU. Information was obtained by reviewing the chart and communicating with patient's son (over the phone). Family recognized witnessed syncope and started CPR and called EMS. Reportedly, EMS found the patient in ventricular fibrillation and shocked the patient and brought the patient to the hospital. Patient was intubated in emergency room and transferred to ICU. Patient was on amiodarone drip. Later the patient had ventricular tachycardia (Systane). High sensitive troponin had been minimally/flatly elevated. Presentation was not in favor of acute coronary syndrome. Cardiology is involved for cardiac aspects of care. Intubated. On Vent. No JVD. Mucosa pale. No carotid bruit. Scattered rhonchi in the lungs is heard. Cardiac: Regular, no thrill. Systolic murmur 2/6 in apex is heard. Abdomen is soft. 3+ edema in extremities. Past medical history as per son: Congenital heart disease, status post bypass WBC: 14.5 - 11.9 - 18.8 - 20.0 - 21.2 - 14.3 - 10.3 - 8.9 - 9.2 - 11.1 - 12.1 - 10.8 - 12.0 - 9.9 - 15.4 - 14.8 - 12.1 - 10.5 - 5.8 - 5.3 - 4.2 - 5.8 - 4.1 - 7.0 - 9.3 - 8.3 - 11.5 - 8.4 - 8.4 - 5.4 - 5.7 - 8.4 - 7.4 - 6.2 - 6.7 - 13.9 - 11.7 - 10.1 - 8.8 - 10.7 Hemoglobin: 10.1 - 9.6 - 9.2 - 8.8 - 8.7 - 8.0 - 8.3 - 8.5 - 7.8 - 10.2 - 10.7 - 9.9 - 9.7 - 9.3 - 9.3 - 8.6 - 8.1 - 7.4 - 7.5 - 7.4 - 7.5 - 7.2 - 7.7 - 7.0 - (post PRBC transfusion) 10.4 - 10 - 9.5 - 10.0 - 9.2 - 9.8 -9.6 - 9.7 - 10.2 - 10.6 - 9.7 - 9.7 - 10.5 - 10.0 - 11.4 - 10.8 - 12.4 Creatinine: 0.95 - 0.93 - 0.87 - 0.83 - 0.83 - 0.76 - 0.68 - 0.72 - 0.79 - 0.76 - 0.80 - 0.84 - 0.61 - 0.65 - 0.74 - 0.64 - 0.73 - 0.82 - 0.88 - 1.03 - 0.99 - 0.85 - 0.87 - 0.79 - 1.12 - 1.15 - 1.04 - 0.96 - 0.94 - 0.93 - 0.78 - 0.71 - 0.68 - 0.61 - 0.59 - 0.49 - 0.39 - 0.54 - 0.48 - 0.76 - 0.93 - 0.78 - 0 0.78 - 0.68 - 0.70 - 0.56 Potassium: 3.4 - 4.0 - 4.6 - 3.5 - 3.3 - 4.1 - 3.7 - 3.2 - 3.7 - 4.0 - 3.2 - 3.4 - 3.9 - 4.2 - 3.3 - 3.8 - 3.6 - 3.4 - 4.2 - 3.8 - 4.5 - 4.1 - 3.5 - 4.2 - 3.3 - 2.6 - 3.5 - 3.8 - 2.4 - 2.9 - 4.6 - 2.8 - 4.8 - 4.9 - 3.4 - 3.1 - 3.7 - 4.4 - 3.7 - 3.7 - 3.1 - 3.0 - 3.8 - 4.4 - 3.8 - 4.1 - 4.3 - 3.9 - 4.4 - 6.1 - 4.6 - 3.0 - 3.6 - 3.1 - 2.1 - 4.6 - 2.5 - 3.1 Magnesium: 2.0 - 1.6 - 2.0 - 3.0 - 1.5 - 1.9 - 2.1 - 1.8 - 2.0 - 1.9 - 1.9 - 2.6 - 2.0 - 1.8 - 1.6 - 2.0 - 2.2 - 1.9 - 2.3 - 2.2 - 2.2 - 2.1 - 2.1 - 1.9 2.7 - 2.6 - 2.3 - 2.4 - 2.5 - 2.3 - 2.5 - 2.3 - 2.3 - 2.4 - 2.1 - 1.9 - 2.2 - 2.1 - 2.0 - 2.4 - 2.2 - 2.0 - 2.0 - 1.6 - 2.0 Troponin (high sensitive): 141 - 138 - 117 BNP: 457.16 - 1073.91 - 928.14 AST/ALT: 32/11 - 19/13 - 538/168 - 293/152 - 131/130 - 78/94 - 68/74 - 48/57 - 27/38 - 15/23 - 20/18 - 23/17 - 29/16 - 27/13 - 34/17 - 73/49 - 41/43 - 30/47 - 30/42 - 29/42 - 17/27 - 160/87 - 900/478 - 986/571 - 382/436 - 110/244 - 42/170 - 22/113 - 16/77 - 15/59 - 19/50 - 20/41 - 16/32 - 17/30 - 14/25 - 25/38 - - /2337 - >6000/>6000 - 4665/>6000 - 2123/>6000 - 604/4207 - 203/2809 Digoxin level: 2.83 - 1.25 - 0.98 UDS: non-revealing Chest x-ray revealed: Lines and Tubes: Endotracheal tube tip projects approximately 1.4 cm above the level of the tyler. Enteric catheter courses below the lateral of the diaphragm and terminates beyond the inferior margin of the image. Right internal jugular central venous catheter terminates within the distal superior vena cava. Lungs: Moderate diffuse increased prominence of the pulmonary vasculature without evidence of focal consolidation. Pleura: No effusion. No pneumothorax. Cardiomediastinal contours: Cardiomegaly. Bones: Unremarkable IMPRESSION: 1. Cardiomegaly and diffuse increased prominence of the pulmonary vasculature. 2. Lines and tubes as above. Repeat chest x-ray revealed: IMPRESSION: 1. Endotracheal tube tip 1.6 cm above the tyler; consider 2 cm retraction 2. Mild pulmonary vascular congestion. Moderate cardiomegaly. Repeat chest xry revealed: IMPRESSION: Endotracheal tube tip 1.6 cm above the tyler; consider 2 cm retraction Mild pulmonary vascular congestion. Moderate cardiomegaly. Repeat chest xry revealed: IMPRESSION: 1. Stable cardiomegaly, small left pleural effusion and mild diffuse increased prominence of the pulmonary vasculature. 2. Repositioned endotracheal tube as above. Remaining lines and tubes unchanged. Repeat chest xry revealed: IMPRESSION: 1. Cardiomegaly, stable diffuse increased prominence of the pulmonary vasculature and small bilateral pleural effusions. 2. Slight interval advancement of endotracheal tube as above. Remaining lines and tubes unchanged. Repeat chest xry revealed: IMPRESSION: 1. Slight interval decrease in diffuse increased prominence of the pulmonary vasculature. 2. Stable cardiomegaly and small left pleural effusion. 3. Lines and tubes unchanged. Repeat chest xry revealed: IMPRESSION: 1. Cardiomegaly and small left pleural effusion. 2. Lines and tubes unchanged. Repeat chest xry revealed: IMPRESSION: Stable lines and tubes. Similar lung aeration. Repeat chest xry revealed: IMPRESSION: Cardiomegaly and small left pleural effusion. Lines and tubes unchanged. Repeat chest xry revealed: IMPRESSION: Placement of a cardiac pacer, no pneumothorax is seen. Stable lines and tubes. Repeat chest xry revealed: IMPRESSION: 1. Worsening mixed opacities in the right lower lung. No other significant change from the previous study. Stable support devices. Repeat chest xry revealed: Heart is prominent in size with postsurgical changes, median sternotomy wires, and a single lead left cardiac defibrillator. Support lines and tubes appear unchanged in satisfactory in position. No sizable effusion or pneumothorax. Mild pulmonary vascular congestion. No significant interval change. Repeat chest xry revealed: IMPRESSION: 1. No significant change from the previous study. Stable support devices. Similar findings of heart failure including left pleural effusion. Repeat chest xry revealed: IMPRESSION: 1. No significant change from the previous study. Stable support devices. Similar findings of heart failure including trace left pleural effusion. Repeat chest xry revealed: Lines and Tubes: Unchanged. Left anterior chest wall cardiac pacing device. Lungs: Clear Pleura: No effusion. No pneumothorax. Cardiomediastinal contours: Cardiomegaly. Bones: Unremarkable IMPRESSION: 1. Cardiomegaly. 2. Lines and tubes unchanged. Repeat chest xry revealed: IMPRESSION: Lines and tubes in satisfactory position. No significant interval change. Repeat chest xry revealed: Lines and Tubes: ET tube and NG tube removed. Lungs: Congestion Pleura: No effusion. No pneumothorax. Cardiomediastinal contours: Cardiomegaly Bones: Unremarkable IMPRESSION: 1. Cardiomegaly with CHF. Repeat chest xry revealed: IMPRESSION: 1. Cardiomegaly. 2. Patchy bilateral airspace disease. Repeat chest xry revealed: FINDINGS: Lines and Tubes: None. Left anterior chest wall cardiac pacing device. Lungs: Extensive multifocal bilateral pulmonary airspace disease in a predominantly perihilar and bibasilar distribution with consolidative features. Pleura: No effusion. No pneumothorax. Cardiomediastinal contours: Poorly evaluated secondary to extensive bilateral infiltrate. Bones: Unremarkable IMPRESSION: 1. Extensive multifocal bilateral pulmonary airspace disease in a predominantly perihilar and bibasilar distribution with consolidative features. Repeat chest xry revealed: IMPRESSION: 1. Status post interval intubation. Endotracheal tube tip projects approximately 2.4 cm above the level of the tyler. 2. Grossly stable appearing moderate patchy multifocal bilateral pulmonary airspace disease with consolidative features. 3. Cardiomegaly. Repeat chest xry revealed: IMPRESSION: No significant interval change. Repeat chest xry revealed: IMPRESSION: No significant interval change Repeat chest xry revealed: IMPRESSION: 1. Interval retraction of the endotracheal tube such that the tip now projects approximately 4.5 cm above the level of the tyler. 2. Cardiomegaly. Repeat chest xry revealed: IMPRESSION: 1. Mild interval advancement of the endotracheal tube such that the tip now projects approximately 3.3 cm above the level of the tyler. 2. No evidence of acute cardiopulmonary process. Gall Bladder Ultrasound revealed: IMPRESSION: Gallstones are noted. Hepatic steatosis Trace ascites Trace bilateral pleural effusions. Hepatic cirrhosis. Liver Ultrasound revealed: Hepatic steatosis. Trace right pleural effusion. Trace ascites Gallstones Bladder ultrasound revealed: IMPRESSION: 1. Cutler catheter in the bladder in the bladder is decompressed. Repeat Bladder Ultrasound revealed: Urinary bladder is unremarkable with prevoid volume of 29 mL. Urinary bladder wall measures 1.5 mm. Cutler catheter is noted. KUB revealed: IMPRESSION: Nonobstructive bowel gas pattern. Nasogastric tube tip in the stomach. Large stool burden. Repeat KUB revealed: Right lower extremity PICC line with tip projecting over the expected region of the intrahepatic IVC. Nasogastric tube projecting towards the distal stomach. Nonspecific bowel gas pattern. Cardiomegaly and left basilar airspace opacities, incompletely characterized. Atherosclerotic calcification disease. Repeat KUB revealed: IMPRESSION: 1. Nonspecific nonobstructive bowel gas pattern. 2. Gastrostomy tube projects over the midportion of the left hemiabdomen. 3. Right femoral approach central venous catheter as described above. Left upper ext arterial duplex: IMPRESSION: No hemodynamically significant stenosis based on peak systolic velocity criteria. Left lower ext arterial duplex: IMPRESSION: There is no evidence for peripheral vascular insufficiency in the left lower extremity. No significant focal stenosis is identified. Liver Ultrasound revealed: Hepatic steatosis. Hepatomegaly. Cholelithiasis. CT of the head revealed: IMPRESSION: No acute intracranial abnormality. Repeat CT of head revealed: IMPRESSION: No acute intracranial abnormality. Repeat CT of Head revealed: IMPRESSION: No acute intracranial abnormality. Repeat CT of head revealed: IMPRESSION: 1. No acute intracranial abnormality. 2. No findings to suggest territorial ischemia. Echocardiogram reported: lvef 15-20% dilated LV severe global dysfunction mild RV dysfunction biatrial enlargement mild moderate MAC, moderate mitral regurg mild to moderate aortic regug (images of echo reviewed and questioned presence of mitral ring and also some component (moderate of Mitral stenosis) EKG revealed sinus rhythm Telemetry revealed occasions of atrial fibrillation. There was occasional sustained ventricular tachycardia. EMS tele monitor revealed ventricular fibrillation for which the patient was shocked. Has remained sinus rhythm. Later with A-fib with MVR LHC revealed: Patent RICHMOND to LAD; Patent SVG to obtuse marginal; LVEF of 20% with increased EDP; Proximal disease in LAD/LCX RICHIE was performed: Consistent with severely reduced LVEF. Consistent with previously implanted Mitral ring, Up to moderate Mitral stenosis/Mitral Regurgitation and also Moderate Aortic insufficiency. Patient is a 54-year-old female who presented with witnessed syncope. She was found to have ventricular fibrillation for which was shocked. Later had repeated episode of sustained ventricular tachycardia. Patient has been kept in ICU. Does have baseline history of coronary artery disease for which has had bypass surgery. Left heart catheterization was performed which revealed patent RICHMOND and patent SVG. ACS is not considered at this point. It is of note that the patient's echocardiogram reveals significantly use systolic function. Valvular heart disease is considered. Findings are in favor of previously implanted mitral ring. By reviewing the echo images, component of up to moderate mitral stenosis could not be ruled out. LHC was performed that ruled out any active specific ischemia as an etiology for presentation. Is off Amiodarone for abnormal LFT. Being followed by Nephrology / Pulmonary / Neurology / GI ID. Tele has remained sinus rhythm. Had episode of a-fib with RVR. Was loaded with Digoxin. Dig level was performed at wrong timing (only 5 hours after the last Dig given). Dig toxicity is not considered. Patient is back to normal sinus rhythm. Has good kidney function. Repeat Dig level is acceptable level. s/p ICD implantation by EP. Intubated, later extubated. s/p PEG. Later had respiratory failure and was taken back to ICU. Imaging question pneumonia (can it be aspiration?). Eventhough repeat BNP has not increased (decreased somehow), patient does have peripheral edema and component of acute on chronic Systolic heart failure could also contribute to respiratory failure. The site of ICD implantation was reviewed by EP (Dr Armstrong on 05/13/2024): healing well (personal communication). Had repeat respiratory failure, back in ICU and intubated. Abnormal LFT. Found to have gall stone and Liver cirrhosis Syncope V-fib s/p shock Sustained V-tach Paroxysmal A-fib VHD, s/p Mitral ring Systolic heart failure Abnormal LFT, at a point resolved, later appeared again s/p ICD (Biotronik) implantation by EP (Dr Armstrong) s/p PRBC transfusion for significant anemia Hepatic Steatosis Gallstones Failed Swallowing s/p PEG Acute respiratory failure Acute on chronic systolic heart failure Gallstone Liver cirrhosis Cardiac suggestion for management: Manage in ICU IV diuresis Follow up electrolytes and kidney function test and correct abnormalities Full anticoagulation (a-fib with high CHADS-Vasc score). s/p ICD implantation. On Eliquis On Mexiletine On Levo-Phed: keep MAP above 65 (for now off pressure support and tolerating) Was on Metoprolol to decrease risk of Vtach (as patient has ICD with bradycardia protection: may continue metoprolol in case of bradycardia, but hold: if hypotensive). For now will stop/hold Metoprolol May consider/add Esmolol for PVC/Vtach (if needed) s/p ICD (Biotronik) implantation by EP Eliquis: 2.5 mg BID s/p PEG Pulmonary Follow up GI follow up Management of repeat respiratory failure, pneumonia as per primary team/pulmonary Provide previous medical records from reaching out to previous hospitals in [facility]... Further evaluation and management depends on the above and clinical course. A total of 75 minutes was spent reviewing the patient record, examining the patient, making a diagnostic and therapeutic plan, discussing this plan with medical personnel, following up on diagnostic studies and following the patient for clinical stability excluding any and all procedures. At least 50% of this time was spent in direct, [id number] contact. Thank you for allowing me to participate in this patient's care. Further recommendations will depend on patient's clinical course. Please do not hesitate to contact me if you have any questions or concerns. This medical document was created using electronic medical record system with [email or web address] computerized dictation system. Although this document has been carefully reviewed, there may still be some phonetic and typographical errors. These areas are purely typographical due to the imperfection of the software programs, and do not reflect any compromise in the patient's medical care. Dietary Evaluation Review Comments: 1) TF Jevity 1.2Cal @ 55 ml/hr. x 24hr along with Pro-stat 1 pk daily. Start @ 20ml/hr, increase 10ml/hr Q4H until goal is reached. TF @ goal volume provides 1684 kcal (100% energy needs), 88 gm protein (100% protein needs), 1065 ml free water. 2) Water flush 100ml Q4H if allowed, adjust PRN 3) Advance to cardiac diet as medically feasible 4) Monitor NPO status, lab values, wt trend, I/O Expected Outcomes/Goals: To meet >75% estimated needs within 7 days Lab values to improve Fu 2-3 days Plan discussed with: Other (nurse) CORDELL VERA MD Nov 18, 2024 16:09
[2024-11-18] MEDS: POTASSIUM EFFERVESENT TAB 25 MEQ PEG ONE (17:02)
--- NOTE | 2024-11-18 19:15 | DVHPN2 ---
Progress Note Date Seen: Nov 18, 2024 Has the PT tested + for MRSA If YES, has PT been informed?: No Medical Necessity Reason Pt with a Central, PICC or Fol: No The following are medically ne: PICC Line, Cutler Catheter Reason for cutler catheter: Strict I&O Subjective Patient reports: Other (intubated) Review of Systems: Deferred Objective vital signs Vital Sign Date Time Temp Pulse Resp B/P (MAP) Pulse Ox O2 Delivery O2 Flow Rate FiO2 11/18/24 18:37 97.3 55 18 103/58 (73) 96 207.1 11/18/24 18:36 30 11/18/24 17:37 Mechanical Ventilator+ Total Intake and Output 11/17/24 11/17/24 11/18/24 14:59 22:59 06:59 Intake Total 1075.0 ml 1398.0 ml 941.25 ml Output Total 400 ml 2000 ml Balance 1075.0 ml 998.0 ml -1058.75 ml medications Current Medications Medications Dose Ordered Sig/Liliam Route Start Time Stop Time Status Last Admin Dose Admin Amino Acids 0 ml @ 0 mls/hr PER PHARMACY IV 10/15/24 18:45 Cancel Dextrose 50 ml UD IV 10/16/24 09:30 Cancel Vancomycin HCl 0 ml @ 0 mls/hr UD IV 10/19/24 14:00 Cancel Metoprolol Tartrate 2.5 mg Q6HPRN PRN IV 10/31/24 09:15 Amino Acids 0 ml @ 0 mls/hr PER PHARMACY IV 11/04/24 22:00 Cancel Amino Acid Protein 30 ml DAILY PO 11/04/24 10:00 11/18/24 07:34 30 ML Pantoprazole Sodium 40 mg BID IV 11/09/24 22:00 11/18/24 07:34 40 MG Morphine Sulfate 4 mg Q4HPRN PRN IV 11/10/24 13:00 11/14/24 01:15 4 MG Acetaminophen/ Hydrocodone Bitart 1 tab Q4HPRN PRN GT 11/10/24 15:30 11/13/24 13:46 1 TAB Mexiletine HCl 150 mg TID GT 11/10/24 22:00 11/18/24 12:06 150 MG Fat Emulsion Intravenous 150 ml/Sodium Acetate 20 meq/Potassium Acetate 30 meq/ Potassium Phosphate 19.8 meq/Calcium Gluconate 2.3 meq/ Magnesium Sulfate 4 meq/ Multivitamins 10 ml/Chromium/ Copper/Manganese/ Zinc 1 ml/Amino Acids/Dextrose/ Purified Water 1,596.4462 ml @ 66 mls/hr [id number] IV 11/11/24 22:00 11/12/24 21:59 Cancel Apixaban 2.5 mg BID PO 11/13/24 22:00 11/18/24 07:34 2.5 MG Hydrocortisone Sodium Succinate 50 mg DAILY IV 11/14/24 10:00 11/18/24 07:34 50 MG Cefepime HCl 50 ml @ 12.5 mls/hr Q8HR IV 11/14/24 14:00 11/18/24 12:06 12.5 MLS/HR Furosemide 40 mg BIDD IV 11/14/24 18:00 11/18/24 17:02 40 MG Phenylephrine HCl 250 ml @ 30 mls/hr Q8H20M IV 11/15/24 09:00 11/18/24 06:34 30 MLS/HR Propofol 100 ml @ 2.088 mls/ hr Q24H IV 11/15/24 11:30 Fentanyl Citrate 250 ml @ 2.5 mls/hr Q24H IV 11/15/24 11:45 11/17/24 10:50 5 MLS/HR Purified Water 150 ml Q6HR GT 11/15/24 18:00 11/18/24 17:03 150 ML Metronidazole 100 ml @ 100 mls/hr Q8HR IV 11/16/24 14:45 11/18/24 12:06 100 MLS/HR Enteral Nutritional Formula 1,000 ml 40ML/HR GT 11/17/24 00:00 Acetaminophen 650 mg Q4HR PRN GT 11/17/24 08:30 Potassium Bicarbonate 50 meq BID PEG 11/18/24 22:00 Examination: GENERAL:Abnormal, LUNGS:Abnormal, MSK:Abnormal, SKIN:Abnormal, NEURO:Abnormal laboratory and microbiology Laboratory Tests 11/18/24 15:06 11/18/24 02:25 Test 11/18/24 02:25 Range/Units Serum Glucose 118 H 74-106 mg/dL Microbiology Date/Time Source Procedure Growth Status 11/16/24 04:50 Urine - Cutler Port Urine Culture - Preliminary Resulted 11/14/24 11:50 Sputum Endotracheal Wash Gram Stain - Final Complete 11/14/24 11:50 Sputum Endotracheal Wash Respiratory Culture - Final Complete 11/14/24 08:50 Blood Blood Culture - Preliminary NO GROWTH AFTER 72 HOURS OF INCUBATION. Resulted 11/14/24 04:30 Nose MRSA Screen - Final Complete Problem List/Assessment/Plan Problem List/Assessment/Plan BARBIE-hemodynamic mediated etiology Metabolic acidosis proteinuria Cardiac arrest status post V-tach chfref ef 15-20 VDRF hypernatremia recs k replace prn low k sec to diuretics We will follow renal function closely possible ltac transfer Plan discussed with: Other My Orders My Orders Orders - OLIVIER GOMEZ MD Procedure Category Date Status Time Communication Order ORDERS 11/19/24 Transmitted 04:00 Dietary Evaluation Review Comments: 1) TF Jevity 1.2Cal @ 55 ml/hr. x 24hr along with Pro-stat 1 pk daily. Start @ 20ml/hr, increase 10ml/hr Q4H until goal is reached. TF @ goal volume provides 1684 kcal (100% energy needs), 88 gm protein (100% protein needs), 1065 ml free water. 2) Water flush 100ml Q4H if allowed, adjust PRN 3) Advance to cardiac diet as medically feasible 4) Monitor NPO status, lab values, wt trend, I/O Expected Outcomes/Goals: To meet >75% estimated needs within 7 days Lab values to improve Fu 2-3 days OLIVIER GOMEZ MD Nov 18, 2024 19:15
--- NOTE | 2024-11-18 21:06 | DVHPN2 ---
Progress Note - Dictate Date Seen: Nov 18, 2024 Has the PT tested + for MRSA If YES, has PT been informed?: No Medical Necessity Reason Pt with a Central, PICC or Fol: No The following are medically ne: PICC Line, Cutler Catheter Reason for cutler catheter: Strict I&O Subjective Patient is intubated sedated FiO2 30% PEEP 5 She had a EEG study that was slightly abnormal No active GI bleeding reported, Hb is stable at 10.8. Two bowel movements recorded on the 14 November Tolerating tube feedings Liver enzymes are trending down vital signs Vital Sign Date Time Temp Pulse Resp B/P (MAP) Pulse Ox O2 Delivery O2 Flow Rate FiO2 11/18/24 20:12 55 18 97/52 (67) 99 30 11/18/24 18:37 97.3 207.1 11/18/24 17:37 Mechanical Ventilator+ Total Intake and Output 11/17/24 11/17/24 11/18/24 15:00 23:00 07:00 Intake Total 1072.5 ml 1348.0 ml 991.25 ml Output Total 400 ml 2000 ml Balance 1072.5 ml 948.0 ml -1008.75 ml medications Current Medications Medications Dose Ordered Sig/Liliam Route Start Time Stop Time Status Last Admin Dose Admin Amino Acids 0 ml @ 0 mls/hr PER PHARMACY IV 10/15/24 18:45 Cancel Dextrose 50 ml UD IV 10/16/24 09:30 Cancel Vancomycin HCl 0 ml @ 0 mls/hr UD IV 10/19/24 14:00 Cancel Metoprolol Tartrate 2.5 mg Q6HPRN PRN IV 10/31/24 09:15 Amino Acids 0 ml @ 0 mls/hr PER PHARMACY IV 11/04/24 22:00 Cancel Amino Acid Protein 30 ml DAILY PO 11/04/24 10:00 11/18/24 07:34 30 ML Pantoprazole Sodium 40 mg BID IV 11/09/24 22:00 11/18/24 07:34 40 MG Morphine Sulfate 4 mg Q4HPRN PRN IV 11/10/24 13:00 11/14/24 01:15 4 MG Acetaminophen/ Hydrocodone Bitart 1 tab Q4HPRN PRN GT 11/10/24 15:30 11/13/24 13:46 1 TAB Mexiletine HCl 150 mg TID GT 11/10/24 22:00 11/18/24 12:06 150 MG Fat Emulsion Intravenous 150 ml/Sodium Acetate 20 meq/Potassium Acetate 30 meq/ Potassium Phosphate 19.8 meq/Calcium Gluconate 2.3 meq/ Magnesium Sulfate 4 meq/ Multivitamins 10 ml/Chromium/ Copper/Manganese/ Zinc 1 ml/Amino Acids/Dextrose/ Purified Water 1,596.4462 ml @ 66 mls/hr [id number] IV 11/11/24 22:00 11/12/24 21:59 Cancel Apixaban 2.5 mg BID PO 11/13/24 22:00 11/18/24 07:34 2.5 MG Hydrocortisone Sodium Succinate 50 mg DAILY IV 11/14/24 10:00 11/18/24 07:34 50 MG Cefepime HCl 50 ml @ 12.5 mls/hr Q8HR IV 11/14/24 14:00 11/18/24 12:06 12.5 MLS/HR Furosemide 40 mg BIDD IV 11/14/24 18:00 11/18/24 17:02 40 MG Phenylephrine HCl 250 ml @ 30 mls/hr Q8H20M IV 11/15/24 09:00 11/18/24 06:34 30 MLS/HR Propofol 100 ml @ 2.088 mls/ hr Q24H IV 11/15/24 11:30 Fentanyl Citrate 250 ml @ 2.5 mls/hr Q24H IV 11/15/24 11:45 11/17/24 10:50 5 MLS/HR Purified Water 150 ml Q6HR GT 11/15/24 18:00 11/18/24 17:03 150 ML Metronidazole 100 ml @ 100 mls/hr Q8HR IV 11/16/24 14:45 11/18/24 12:06 100 MLS/HR Enteral Nutritional Formula 1,000 ml 40ML/HR GT 11/17/24 00:00 Acetaminophen 650 mg Q4HR PRN GT 11/17/24 08:30 Potassium Bicarbonate 50 meq BID PEG 11/18/24 22:00 objective Examination: GENERAL:Normal, LUNGS: Decreased breath sounds at bases ABDOMEN: Soft, dressing dry, G-tube in place, SKIN:Normal, NEURO:Normal laboratory and microbiology Laboratory Tests 11/18/24 15:06 11/18/24 02:25 Test 11/18/24 02:25 Range/Units Serum Glucose 118 H 74-106 mg/dL Problems(with codes): (1) Shock liver (2) Pneumonia (3) Sepsis, unspecified organism (4) Ventricular fibrillation (5) Cardiac arrest Prognosis Plan Continue supportive care Monitor labs PT/INR, ammonia Continue Protonix 40 mg IV daily Advance tube feedings to goal rate as tolerated IV vitamin K once daily for 3 days continue antibiotics, consider anaerobic coverage consider MRCP once stable Tapered hydrocortisone to once daily on 11/13/2024 s/p PEG tube placement, Continue tube feedings at 40cc/hr Keep PT/INR therapeutic Hemoglobin stable, transfuse if HB 7 or less Decreased metoclopramide to 5 mg IV b.i.d. JAIDEN positive, outpatient follow up with GI recommended for further workup Dietary Evaluation Review Comments: 1) TF Jevity 1.2Cal @ 55 ml/hr. x 24hr along with Pro-stat 1 pk daily. Start @ 20ml/hr, increase 10ml/hr Q4H until goal is reached. TF @ goal volume provides 1684 kcal (100% energy needs), 88 gm protein (100% protein needs), 1065 ml free water. 2) Water flush 100ml Q4H if allowed, adjust PRN 3) Advance to cardiac diet as medically feasible 4) Monitor NPO status, lab values, wt trend, I/O Expected Outcomes/Goals: To meet >75% estimated needs within 7 days Lab values to improve Fu 2-3 days Plan discussed with: Other (ICU Nurse) CANDI BOSS MD Nov 18, 2024 21:06
[2024-11-18] MEDS: POTASSIUM EFFERVESENT TAB 25 MEQ PEG SCH (22:18)
[2024-11-19] VITALS (116 sets, daily range): BP systolic 85–147; BP diastolic 25–78; PULSE 55–64; RESP 15–22; TEMP 97.9–99.5; O2SAT 30–100
[2024-11-19 03:44] LABS: Hematocrit 39.2 % (36.0-46.0); Hemoglobin 12.7 g/dL (12.2-16.2); Mean Corpuscular Hemoglobin 29.9 pg (28.0-32.0); Mean Corpuscular Volume 92.1 fL (80.0-100.0); Nucleated Red Blood Cells % 0.7 %
[2024-11-19 03:57] LABS: Anion Gap 11 (5-15); Carbon Dioxide 28 mmol/L (20-31); Chloride 102 mmol/L (98-107); Potassium 4.4 mmol/L (3.5-5.1); Sodium 141 mmol/L (136-145)
[2024-11-19 04:02] LABS: Calcium 8.4 mg/dL (8.7-10.4)
[2024-11-19 04:03] LABS: Glucose 82 mg/dL (74-106)
[2024-11-19 04:04] LABS: BUN/Creatinine Ratio 40.6 (10.0-20.0)
[2024-11-19 04:07] LABS: Blood Urea Nitrogen 26 mg/dL (9-23)
[2024-11-19 04:25] LABS: Magnesium 2.0 mg/dL (1.6-2.6)
--- NOTE | 2024-11-19 05:27 | DVH ---
CHEST RADIOGRAPH Indication: intubated Technique: Single frontal view of the chest was obtained COMPARISON: XY CHEST PORTABLE on DOS: 11/18/24, XY CHEST PORTABLE on DOS: 11/17/24, XY CHEST PORTABLE o n DOS: 11/16/24, XY CHEST PORTABLE on DOS: 11/15/24, XY CHEST XRAY 1 VIEW on DOS: 11/14/24 FINDINGS: Lines and Tubes: Median sternotomy. Left chest wall AICD. Endotracheal tube in satisfactory positio n. Lungs: Congestion Pleura: No effusion. No pneumothorax. Cardiomediastinal contours: Cardiomegaly Bones: Unremarkable IMPRESSION: Lines and tubes in satisfactory position. No significant interval change.
[2024-11-19 06:36] LABS: Base Excess 3.2 mmol/L (-2.0-3.0)
--- NOTE | 2024-11-19 08:10 | DVHPN2 ---
Progress Note - Dictate Date Seen: Nov 19, 2024 Has the PT tested + for MRSA If YES, has PT been informed?: No Medical Necessity Reason Pt with a Central, PICC or Fol: No The following are medically ne: PICC Line, Cutler Catheter Reason for cutler catheter: Strict I&O vital signs Vital Sign Date Time Temp Pulse Resp B/P (MAP) Pulse Ox O2 Delivery O2 Flow Rate FiO2 11/19/24 07:08 99.3 55 17 124/61 (82) 99 210.7 11/19/24 06:57 30 11/19/24 06:00 Mechanical Ventilator+ Total Intake and Output 11/18/24 11/18/24 11/19/24 15:00 23:00 07:00 Intake Total 366.25 ml 745.00 ml 922.5 ml Output Total 1000 ml 730 ml Balance 366.25 ml -255.00 ml 192.5 ml medications Current Medications Medications Dose Ordered Sig/Liliam Route Start Time Stop Time Status Last Admin Dose Admin Amino Acids 0 ml @ 0 mls/hr PER PHARMACY IV 10/15/24 18:45 Cancel Dextrose 50 ml UD IV 10/16/24 09:30 Cancel Vancomycin HCl 0 ml @ 0 mls/hr UD IV 10/19/24 14:00 Cancel Metoprolol Tartrate 2.5 mg Q6HPRN PRN IV 10/31/24 09:15 Amino Acids 0 ml @ 0 mls/hr PER PHARMACY IV 11/04/24 22:00 Cancel Amino Acid Protein 30 ml DAILY PO 11/04/24 10:00 11/18/24 07:34 30 ML Pantoprazole Sodium 40 mg BID IV 11/09/24 22:00 11/18/24 22:18 40 MG Morphine Sulfate 4 mg Q4HPRN PRN IV 11/10/24 13:00 11/14/24 01:15 4 MG Acetaminophen/ Hydrocodone Bitart 1 tab Q4HPRN PRN GT 11/10/24 15:30 11/13/24 13:46 1 TAB Mexiletine HCl 150 mg TID GT 11/10/24 22:00 11/19/24 05:30 150 MG Fat Emulsion Intravenous 150 ml/Sodium Acetate 20 meq/Potassium Acetate 30 meq/ Potassium Phosphate 19.8 meq/Calcium Gluconate 2.3 meq/ Magnesium Sulfate 4 meq/ Multivitamins 10 ml/Chromium/ Copper/Manganese/ Zinc 1 ml/Amino Acids/Dextrose/ Purified Water 1,596.4462 ml @ 66 mls/hr [id number] IV 11/11/24 22:00 11/12/24 21:59 Cancel Apixaban 2.5 mg BID PO 11/13/24 22:00 11/18/24 22:18 2.5 MG Hydrocortisone Sodium Succinate 50 mg DAILY IV 11/14/24 10:00 11/18/24 07:34 50 MG Cefepime HCl 50 ml @ 12.5 mls/hr Q8HR IV 11/14/24 14:00 11/19/24 05:30 12.5 MLS/HR Furosemide 40 mg BIDD IV 11/14/24 18:00 11/19/24 05:30 40 MG Phenylephrine HCl 250 ml @ 30 mls/hr Q8H20M IV 11/15/24 09:00 11/19/24 06:37 30 MLS/HR Propofol 100 ml @ 2.088 mls/ hr Q24H IV 11/15/24 11:30 Fentanyl Citrate 250 ml @ 2.5 mls/hr Q24H IV 11/15/24 11:45 11/17/24 10:50 5 MLS/HR Purified Water 150 ml Q6HR GT 11/15/24 18:00 11/19/24 05:30 150 ML Metronidazole 100 ml @ 100 mls/hr Q8HR IV 11/16/24 14:45 11/19/24 05:30 100 MLS/HR Enteral Nutritional Formula 1,000 ml 40ML/HR GT 11/17/24 00:00 Acetaminophen 650 mg Q4HR PRN GT 11/17/24 08:30 Potassium Bicarbonate 50 meq BID PEG 11/18/24 22:00 11/18/24 22:18 50 MEQ laboratory and microbiology Laboratory Tests 11/19/24 03:08 Test 11/19/24 03:08 Range/Units Serum Glucose 82 74-106 mg/dL Assessment/Plan Still in ICU, intubated and on pressure support. No Arrhythmia identified during this episodes. They are looking into possibility of Tracheostomy (maybe to be performed in [place]?) Patient is a 54-year-old female who was brought to the hospital for witnessed syncope. She is intubated and is being managed in ICU. Information was obtained by reviewing the chart and communicating with patient's son (over the phone). Family recognized witnessed syncope and started CPR and called EMS. Reportedly, EMS found the patient in ventricular fibrillation and shocked the patient and brought the patient to the hospital. Patient was intubated in emergency room and transferred to ICU. Patient was on amiodarone drip. Later the patient had ventricular tachycardia (Systane). High sensitive troponin had been minimally/flatly elevated. Presentation was not in favor of acute coronary syndrome. Cardiology is involved for cardiac aspects of care. Intubated. On Vent. No JVD. Mucosa pale. No carotid bruit. Scattered rhonchi in the lungs is heard. Cardiac: Regular, no thrill. Systolic murmur 2/6 in apex is heard. Abdomen is soft. 3+ edema in extremities. Past medical history as per son: Congenital heart disease, status post bypass WBC: 14.5 - 11.9 - 18.8 - 20.0 - 21.2 - 14.3 - 10.3 - 8.9 - 9.2 - 11.1 - 12.1 - 10.8 - 12.0 - 9.9 - 15.4 - 14.8 - 12.1 - 10.5 - 5.8 - 5.3 - 4.2 - 5.8 - 4.1 - 7.0 - 9.3 - 8.3 - 11.5 - 8.4 - 8.4 - 5.4 - 5.7 - 8.4 - 7.4 - 6.2 - 6.7 - 13.9 - 11.7 - 10.1 - 8.8 - 10.7 - 13.9 Hemoglobin: 10.1 - 9.6 - 9.2 - 8.8 - 8.7 - 8.0 - 8.3 - 8.5 - 7.8 - 10.2 - 10.7 - 9.9 - 9.7 - 9.3 - 9.3 - 8.6 - 8.1 - 7.4 - 7.5 - 7.4 - 7.5 - 7.2 - 7.7 - 7.0 - (post PRBC transfusion) 10.4 - 10 - 9.5 - 10.0 - 9.2 - 9.8 -9.6 - 9.7 - 10.2 - 10.6 - 9.7 - 9.7 - 10.5 - 10.0 - 11.4 - 10.8 - 12.4 - 12.7 Creatinine: 0.95 - 0.93 - 0.87 - 0.83 - 0.83 - 0.76 - 0.68 - 0.72 - 0.79 - 0.76 - 0.80 - 0.84 - 0.61 - 0.65 - 0.74 - 0.64 - 0.73 - 0.82 - 0.88 - 1.03 - 0.99 - 0.85 - 0.87 - 0.79 - 1.12 - 1.15 - 1.04 - 0.96 - 0.94 - 0.93 - 0.78 - 0.71 - 0.68 - 0.61 - 0.59 - 0.49 - 0.39 - 0.54 - 0.48 - 0.76 - 0.93 - 0.78 - 0 0.78 - 0.68 - 0.70 - 0.56 -0.64 Potassium: 3.4 - 4.0 - 4.6 - 3.5 - 3.3 - 4.1 - 3.7 - 3.2 - 3.7 - 4.0 - 3.2 - 3.4 - 3.9 - 4.2 - 3.3 - 3.8 - 3.6 - 3.4 - 4.2 - 3.8 - 4.5 - 4.1 - 3.5 - 4.2 - 3.3 - 2.6 - 3.5 - 3.8 - 2.4 - 2.9 - 4.6 - 2.8 - 4.8 - 4.9 - 3.4 - 3.1 - 3.7 - 4.4 - 3.7 - 3.7 - 3.1 - 3.0 - 3.8 - 4.4 - 3.8 - 4.1 - 4.3 - 3.9 - 4.4 - 6.1 - 4.6 - 3.0 - 3.6 - 3.1 - 2.1 - 4.6 - 2.5 - 3.1 - 4.4 Magnesium: 2.0 - 1.6 - 2.0 - 3.0 - 1.5 - 1.9 - 2.1 - 1.8 - 2.0 - 1.9 - 1.9 - 2.6 - 2.0 - 1.8 - 1.6 - 2.0 - 2.2 - 1.9 - 2.3 - 2.2 - 2.2 - 2.1 - 2.1 - 1.9 2.7 - 2.6 - 2.3 - 2.4 - 2.5 - 2.3 - 2.5 - 2.3 - 2.3 - 2.4 - 2.1 - 1.9 - 2.2 - 2.1 - 2.0 - 2.4 - 2.2 - 2.0 - 2.0 - 1.6 - 2.0 - 2.0 Troponin (high sensitive): 141 - 138 - 117 BNP: 457.16 - 1073.91 - 928.14 AST/ALT: 32/11 - 19/13 - 538/168 - 293/152 - 131/130 - 78/94 - 68/74 - 48/57 - 27/38 - 15/23 - 20/18 - 23/17 - 29/16 - 27/13 - 34/17 - 73/49 - 41/43 - 30/47 - 30/42 - 29/42 - 17/27 - 160/87 - 900/478 - 986/571 - 382/436 - 110/244 - 42/170 - 22/113 - 16/77 - 15/59 - 19/50 - 20/41 - 16/32 - 17/30 - 14/25 - 25/38 - - /2337 - >6000/>6000 - 4665/>6000 - 2123/>6000 - 604/4207 - 203/2809 Digoxin level: 2.83 - 1.25 - 0.98 UDS: non-revealing Chest x-ray revealed: Lines and Tubes: Endotracheal tube tip projects approximately 1.4 cm above the level of the tyler. Enteric catheter courses below the lateral of the diaphragm and terminates beyond the inferior margin of the image. Right internal jugular central venous catheter terminates within the distal superior vena cava. Lungs: Moderate diffuse increased prominence of the pulmonary vasculature without evidence of focal consolidation. Pleura: No effusion. No pneumothorax. Cardiomediastinal contours: Cardiomegaly. Bones: Unremarkable IMPRESSION: 1. Cardiomegaly and diffuse increased prominence of the pulmonary vasculature. 2. Lines and tubes as above. Repeat chest x-ray revealed: IMPRESSION: 1. Endotracheal tube tip 1.6 cm above the tyler; consider 2 cm retraction 2. Mild pulmonary vascular congestion. Moderate cardiomegaly. Repeat chest xry revealed: IMPRESSION: Endotracheal tube tip 1.6 cm above the tyler; consider 2 cm retraction Mild pulmonary vascular congestion. Moderate cardiomegaly. Repeat chest xry revealed: IMPRESSION: 1. Stable cardiomegaly, small left pleural effusion and mild diffuse increased prominence of the pulmonary vasculature. 2. Repositioned endotracheal tube as above. Remaining lines and tubes unchanged. Repeat chest xry revealed: IMPRESSION: 1. Cardiomegaly, stable diffuse increased prominence of the pulmonary vasculature and small bilateral pleural effusions. 2. Slight interval advancement of endotracheal tube as above. Remaining lines and tubes unchanged. Repeat chest xry revealed: IMPRESSION: 1. Slight interval decrease in diffuse increased prominence of the pulmonary vasculature. 2. Stable cardiomegaly and small left pleural effusion. 3. Lines and tubes unchanged. Repeat chest xry revealed: IMPRESSION: 1. Cardiomegaly and small left pleural effusion. 2. Lines and tubes unchanged. Repeat chest xry revealed: IMPRESSION: Stable lines and tubes. Similar lung aeration. Repeat chest xry revealed: IMPRESSION: Cardiomegaly and small left pleural effusion. Lines and tubes unchanged. Repeat chest xry revealed: IMPRESSION: Placement of a cardiac pacer, no pneumothorax is seen. Stable lines and tubes. Repeat chest xry revealed: IMPRESSION: 1. Worsening mixed opacities in the right lower lung. No other significant change from the previous study. Stable support devices. Repeat chest xry revealed: Heart is prominent in size with postsurgical changes, median sternotomy wires, and a single lead left cardiac defibrillator. Support lines and tubes appear unchanged in satisfactory in position. No sizable effusion or pneumothorax. Mild pulmonary vascular congestion. No significant interval change. Repeat chest xry revealed: IMPRESSION: 1. No significant change from the previous study. Stable support devices. Similar findings of heart failure including left pleural effusion. Repeat chest xry revealed: IMPRESSION: 1. No significant change from the previous study. Stable support devices. Similar findings of heart failure including trace left pleural effusion. Repeat chest xry revealed: Lines and Tubes: Unchanged. Left anterior chest wall cardiac pacing device. Lungs: Clear Pleura: No effusion. No pneumothorax. Cardiomediastinal contours: Cardiomegaly. Bones: Unremarkable IMPRESSION: 1. Cardiomegaly. 2. Lines and tubes unchanged. Repeat chest xry revealed: IMPRESSION: Lines and tubes in satisfactory position. No significant interval change. Repeat chest xry revealed: Lines and Tubes: ET tube and NG tube removed. Lungs: Congestion Pleura: No effusion. No pneumothorax. Cardiomediastinal contours: Cardiomegaly Bones: Unremarkable IMPRESSION: 1. Cardiomegaly with CHF. Repeat chest xry revealed: IMPRESSION: 1. Cardiomegaly. 2. Patchy bilateral airspace disease. Repeat chest xry revealed: FINDINGS: Lines and Tubes: None. Left anterior chest wall cardiac pacing device. Lungs: Extensive multifocal bilateral pulmonary airspace disease in a predominantly perihilar and bibasilar distribution with consolidative features. Pleura: No effusion. No pneumothorax. Cardiomediastinal contours: Poorly evaluated secondary to extensive bilateral infiltrate. Bones: Unremarkable IMPRESSION: 1. Extensive multifocal bilateral pulmonary airspace disease in a predominantly perihilar and bibasilar distribution with consolidative features. Repeat chest xry revealed: IMPRESSION: 1. Status post interval intubation. Endotracheal tube tip projects approximately 2.4 cm above the level of the tyler. 2. Grossly stable appearing moderate patchy multifocal bilateral pulmonary airspace disease with consolidative features. 3. Cardiomegaly. Repeat chest xry revealed: IMPRESSION: No significant interval change. Repeat chest xry revealed: IMPRESSION: No significant interval change Repeat chest xry revealed: IMPRESSION: 1. Interval retraction of the endotracheal tube such that the tip now projects approximately 4.5 cm above the level of the tyler. 2. Cardiomegaly. Repeat chest xry revealed: IMPRESSION: 1. Mild interval advancement of the endotracheal tube such that the tip now projects approximately 3.3 cm above the level of the tyler. 2. No evidence of acute cardiopulmonary process. Repeat chest xry revealed: IMPRESSION: Lines and tubes in satisfactory position. No significant interval change. Gall Bladder Ultrasound revealed: IMPRESSION: Gallstones are noted. Hepatic steatosis Trace ascites Trace bilateral pleural effusions. Hepatic cirrhosis. Liver Ultrasound revealed: Hepatic steatosis. Trace right pleural effusion. Trace ascites Gallstones Bladder ultrasound revealed: IMPRESSION: 1. Cutler catheter in the bladder in the bladder is decompressed. Repeat Bladder Ultrasound revealed: Urinary bladder is unremarkable with prevoid volume of 29 mL. Urinary bladder wall measures 1.5 mm. Cutler catheter is noted. KUB revealed: IMPRESSION: Nonobstructive bowel gas pattern. Nasogastric tube tip in the stomach. Large stool burden. Repeat KUB revealed: Right lower extremity PICC line with tip projecting over the expected region of the intrahepatic IVC. Nasogastric tube projecting towards the distal stomach. Nonspecific bowel gas pattern. Cardiomegaly and left basilar airspace opacities, incompletely characterized. Atherosclerotic calcification disease. Repeat KUB revealed: IMPRESSION: 1. Nonspecific nonobstructive bowel gas pattern. 2. Gastrostomy tube projects over the midportion of the left hemiabdomen. 3. Right femoral approach central venous catheter as described above. Left upper ext arterial duplex: IMPRESSION: No hemodynamically significant stenosis based on peak systolic velocity criteria. Left lower ext arterial duplex: IMPRESSION: There is no evidence for peripheral vascular insufficiency in the left lower extremity. No significant focal stenosis is identified. Liver Ultrasound revealed: Hepatic steatosis. Hepatomegaly. Cholelithiasis. CT of the head revealed: IMPRESSION: No acute intracranial abnormality. Repeat CT of head revealed: IMPRESSION: No acute intracranial abnormality. Repeat CT of Head revealed: IMPRESSION: No acute intracranial abnormality. Repeat CT of head revealed: IMPRESSION: 1. No acute intracranial abnormality. 2. No findings to suggest territorial ischemia. Echocardiogram reported: lvef 15-20% dilated LV severe global dysfunction mild RV dysfunction biatrial enlargement mild moderate MAC, moderate mitral regurg mild to moderate aortic regug (images of echo reviewed and questioned presence of mitral ring and also some component (moderate of Mitral stenosis) EKG revealed sinus rhythm Telemetry revealed occasions of atrial fibrillation. There was occasional sustained ventricular tachycardia. EMS tele monitor revealed ventricular fibrillation for which the patient was shocked. Has remained sinus rhythm. Later with A-fib with MVR LHC revealed: Patent RICHMOND to LAD; Patent SVG to obtuse marginal; LVEF of 20% with increased EDP; Proximal disease in LAD/LCX RICHIE was performed: Consistent with severely reduced LVEF. Consistent with previously implanted Mitral ring, Up to moderate Mitral stenosis/Mitral Regurgitation and also Moderate Aortic insufficiency. Patient is a 54-year-old female who presented with witnessed syncope. She was found to have ventricular fibrillation for which was shocked. Later had repeated episode of sustained ventricular tachycardia. Patient has been kept in ICU. Does have baseline history of coronary artery disease for which has had bypass surgery. Left heart catheterization was performed which revealed patent RICH[place]D and patent SVG. ACS is not considered at this point. It is of note that the patient's echocardiogram reveals significantly use systolic function. Valvular heart disease is considered. Findings are in favor of previously implanted mitral ring. By reviewing the echo images, component of up to moderate mitral stenosis could not be ruled out. LHC was performed that ruled out any active specific ischemia as an etiology for presentation. Is off Amiodarone for abnormal LFT. Being followed by Nephrology / Pulmonary / Neurology / GI ID. Tele has remained sinus rhythm. Had episode of a-fib with RVR. Was loaded with Digoxin. Dig level was performed at wrong timing (only 5 hours after the last Dig given). Dig toxicity is not considered. Patient is back to normal sinus rhythm. Has good kidney function. Repeat Dig level is acceptable level. s/p ICD implantation by EP. Intubated, later extubated. s/p PEG. Later had respiratory failure and was taken back to ICU. Imaging question pneumonia (can it be aspiration?). Eventhough repeat BNP has not increased (decreased somehow), patient does have peripheral edema and component of acute on chronic Systolic heart failure could also contribute to respiratory failure. The site of ICD implantation was reviewed by EP (Dr Armstrong on 05/13/2024): healing well (personal communication). Had repeat respiratory failure, back in ICU and intubated. Abnormal LFT. Found to have gall stone and Liver cirrhosis Syncope V-fib s/p shock Sustained V-tach Paroxysmal A-fib VHD, s/p Mitral ring Systolic heart failure Abnormal LFT, at a point resolved, later appeared again s/p ICD (Biotronik) implantation by EP (Dr Armstrong) s/p PRBC transfusion for significant anemia Hepatic Steatosis Gallstones Failed Swallowing s/p PEG Acute respiratory failure Acute on chronic systolic heart failure Gallstone Liver cirrhosis Cardiac suggestion for management: Manage in ICU IV diuresis Follow up electrolytes and kidney function test and correct abnormalities Full anticoagulation (a-fib with high CHADS-Vasc score). s/p ICD implantation. On Eliquis On Mexiletine On Levo-Phed: keep MAP above 65 (for now off pressure support and tolerating) Was on Metoprolol to decrease risk of Vtach (as patient has ICD with bradycardia protection: may continue metoprolol in case of bradycardia, but hold: if hypotensive). For now will stop/hold Metoprolol May consider/add Esmolol for PVC/Vtach (if needed) s/p ICD (Biotronik) implantation by EP [place]: 2.5 mg BID s/p PEG Pulmonary Follow up GI follow up Management of repeat respiratory failure, pneumonia as per primary team/pulmonary Provide previous medical records from reaching out to previous hospitals in [facility]... Further evaluation and management depends on the above and clinical course. A total of 75 minutes was spent reviewing the patient record, examining the patient, making a diagnostic and therapeutic plan, discussing this plan with medical personnel, following up on diagnostic studies and following the patient for clinical stability excluding any and all procedures. At least 50% of this time was spent in direct, [id number] contact. Thank you for allowing me to participate in this patient's care. Further recommendations will depend on patient's clinical course. Please do not hesitate to contact me if you have any questions or concerns. This medical document was created using electronic medical record system with [employer] computerized dictation system. Although this document has been carefully reviewed, there may still be some phonetic and typographical errors. These areas are purely typographical due to the imperfection of the software programs, and do not reflect any compromise in the patient's medical care. Dietary Evaluation Review Comments: 1) TF Jevity 1.2Cal @ 55 ml/hr. x 24hr along with Pro-stat 1 pk daily. Start @ 20ml/hr, increase 10ml/hr Q4H until goal is reached. TF @ goal volume provides 1684 kcal (100% energy needs), 88 gm protein (100% protein needs), 1065 ml free water. 2) Water flush 100ml Q4H if allowed, adjust PRN 3) Advance to cardiac diet as medically feasible 4) Monitor NPO status, lab values, wt trend, I/O Expected Outcomes/Goals: To meet >75% estimated needs within 7 days Lab values to improve Fu 2-3 days Plan discussed with: Other (nurse) CORDELL VERA MD Nov 19, 2024 08:10
--- NOTE | 2024-11-19 08:42 | DVHPN2 ---
Subjective DOS: 11/18/2024 Patient seen and examined at bedside. Sedated, intubated on mechanical ventilator. Overnight events reviewed. Changes from previous H/P or p: No Changes Objective Vitals Vital Signs Date Time Temp Pulse Resp B/P (MAP) Pulse Ox O2 Delivery O2 Flow Rate FiO2 11/19/24 08:14 55 16 120/60 (80) 100 30 11/19/24 07:08 99.3 210.7 11/19/24 06:00 Mechanical Ventilator+ Intake/Output Intake and Output 11/19/24 07:00 Intake Total 2033.75 ml Output Total 1730 ml Balance 303.75 ml Intake Oral 940 ml IV Total 973.75 ml Tube Feeding 120 ml Output Urine Total 1730 ml Stool Total 0 ml Exam Gen.: Patient lying in bed in medical ICU. Sedated, intubated on mechanical ventilator. Head: Normocephalic, atraumatic. Eyes: PERRLA. Ears: Normal external anatomy. Throat: Endotracheal tube and orogastric tube in place. Neck: Supple, trachea midline. Chest: Transmitted breath sounds bilaterally. Decreased air entry bilaterally. No wheezing. Bibasilar crackles. Cardiovascular: Positive S1, positive S2. Regular rate and rhythm. Abdomen: Positive bowel sounds in all 4 quadrants. Soft, nontender, nondistended. : [place] in place. Normal external genitalia. Rectal: Deferred. Skin: Warm, dry. Intact. Extremities: 2+ radial pulses bilaterally. No lower extremity edema. Neuro: Sedated. Medications Current Medications Medications Dose Ordered Sig/Liliam Route Start Time Stop Time Status Last Admin Dose Admin Amino Acids 0 ml @ 0 mls/hr PER PHARMACY IV 10/15/24 18:45 Cancel Dextrose 50 ml UD IV 10/16/24 09:30 Cancel Vancomycin HCl 0 ml @ 0 mls/hr UD IV 10/19/24 14:00 Cancel Metoprolol Tartrate 2.5 mg Q6HPRN PRN IV 10/31/24 09:15 Amino Acids 0 ml @ 0 mls/hr PER PHARMACY IV 11/04/24 22:00 Cancel Amino Acid Protein 30 ml DAILY PO 11/04/24 10:00 11/18/24 07:34 30 ML Pantoprazole Sodium 40 mg BID IV 11/09/24 22:00 11/18/24 22:18 40 MG Morphine Sulfate 4 mg Q4HPRN PRN IV 11/10/24 13:00 11/14/24 01:15 4 MG Acetaminophen/ Hydrocodone Bitart 1 tab Q4HPRN PRN GT 11/10/24 15:30 11/13/24 13:46 1 TAB Mexiletine HCl 150 mg TID GT 11/10/24 22:00 11/19/24 05:30 150 MG Fat Emulsion Intravenous 150 ml/Sodium Acetate 20 meq/Potassium Acetate 30 meq/ Potassium Phosphate 19.8 meq/Calcium Gluconate 2.3 meq/ Magnesium Sulfate 4 meq/ Multivitamins 10 ml/Chromium/ Copper/Manganese/ Zinc 1 ml/Amino Acids/Dextrose/ Purified Water 1,596.4462 ml @ 66 mls/hr [id number] IV 11/11/24 22:00 11/12/24 21:59 Cancel Apixaban 2.5 mg BID PO 11/13/24 22:00 11/18/24 22:18 2.5 MG Hydrocortisone Sodium Succinate 50 mg DAILY IV 11/14/24 10:00 11/18/24 07:34 50 MG Furosemide 40 mg BIDD IV 11/14/24 18:00 11/19/24 05:30 40 MG Phenylephrine HCl 250 ml @ 30 mls/hr Q8H20M IV 11/15/24 09:00 11/19/24 06:37 30 MLS/HR Propofol 100 ml @ 2.088 mls/ hr Q24H IV 11/15/24 11:30 Fentanyl Citrate 250 ml @ 2.5 mls/hr Q24H IV 11/15/24 11:45 11/17/24 10:50 5 MLS/HR Purified Water 150 ml Q6HR GT 11/15/24 18:00 11/19/24 05:30 150 ML Metronidazole 100 ml @ 100 mls/hr Q8HR IV 11/16/24 14:45 11/19/24 05:30 100 MLS/HR Enteral Nutritional Formula 1,000 ml 40ML/HR GT 11/17/24 00:00 Acetaminophen 650 mg Q4HR PRN GT 11/17/24 08:30 Potassium Bicarbonate 50 meq BID PEG 11/18/24 22:00 11/18/24 22:18 50 MEQ Laboratory Results Laboratory Tests 11/19/24 03:08 Chemistry Test 11/19/24 03:08 Calcium Level 8.4 mg/dL (8.7-10.4) L Magnesium Level 2.0 mg/dL (1.6-2.6) Urinalysis Test 10/09/24 22:25 11/15/24 04:00 Urine Creatinine 31.20 mg/dL (30.0-125.0) Urine Protein/Creatinine Ratio 0.72 Urine Sodium 79 mmol/L (40-220) Urine Total Protein 22.5 mg/dL (1-14) H Urine Color Yellow (Yellow) Urine Clarity Turbid (Clear) H Urine pH 5.0 (5.0-9.0) Urine Specific Elizabeth 1.012 (1.001-1.035) Urine Protein Trace (Negative) H Urine Ketones Negative (Negative) Urine Blood 2+ /uL (Negative) H Urine Nitrite Negative (Negative) Urine Bilirubin Negative (Negative) Urine Urobilinogen Normal mg/dL (Negative) Urine Leukocyte Esterase 1+ /uL (Negative) Urine RBC 3 /hpf (0 - 4) Urine Microscopic WBC 14 /HPF (0-5) H Urine Squamous Epithelial Cells Few /hpf (<5) Urine Calcium Oxalate Crystals Few (None Seen) Urine Amorphous Crystals Few /hpf (None Seen) Urine Bacteria Few /hpf (None Seen) H Urine Hyaline Casts Mod /lpf (0 - 2) Urine Mucus Few (None Seen) Urine Glucose Normal mg/dL (Normal) Blood Gas Results Test 11/18/24 13:49 11/19/24 06:13 Arterial Blood pH 7.482 (7.350-7.450) 7.483 (7.350-7.450) FiO2 % 30.0 30.0 Microbiology Microbiology Date/Time Source Procedure Growth Status 11/16/24 04:50 Urine - [place] Urine Culture - Final Enterococcus faecium - VRE Complete 11/14/24 11:50 Sputum Endotracheal Wash Gram Stain - Final Complete 11/14/24 11:50 Sputum Endotracheal Wash Respiratory Culture - Final Complete 11/14/24 08:50 Blood Blood Culture - Preliminary NO GROWTH AFTER 72 HOURS OF INCUBATION. Resulted 11/14/24 04:30 Nose MRSA Screen - Final Complete Assessment/Plan Assessment/Plan Impression: Acute hypoxic respiratory failure On mechanical ventilator s/p cardiac arrest Ventricular tachycardia CPR <5 min Elevated troponin Atelectasis Anemia Events: Remains on vent support Currently on assist control with respiratory rate of 16, tidal volume 380, PEEP 5, FiO2 of 30% ABG reviewed, notable for alkalemia CXR notable for cardiomegaly and pulmonary congestion. Devices in place. On pressors for hemodynamic support Titrate to keep MAP above 65 mmHg/SBP above 90 mmHg. Continue antibiotics Continue IV steroids Recommend tracheostomy vs. prison acute care. Labs and imaging reviewed. Rest of plan as noted below. Plan: On mechanical ventilator ABG reviewed. Alkalemia due to respiratory alkalosis On assist control with respiratory rate of 16, tidal volume 380, PEEP 5, FiO2 of 30% Titrate FiO2 to keep sats above 92%. VAP bundle Continue antibiotics. F/u cultures. Sputum culture normal from normal oropharyngeal melissa. Urine culture notable for Gram-positive melissa, greater than 100 K. follow up final report. Continue antifungal IV steroids On pressors for hemodynamic support. On Stone-Synephrine On stress dose steroids. Taper down as tolerated. Vitamin K was given on 11/18/24 Monitor hemoglobin Accu-Cheks, ISS PRN. Monitor labs Monitor renal function. On diuresis with Lasix twice daily. Monitor electrolytes. Supplement as necessary. Supplement potassium Supplement magnesium Monitor ins and outs. Maintain euvolemia Cardiology recommendations appreciated. Monitor hemoglobin On Protonix twice daily GI/DVT prophylaxis. On Eliquis twice daily. Prognosis: Poor given patient's multiple co-morbidities. Condition: Critical Rest of plan per hospitalist and other consultants. A total of 35 minutes of critical care time was spent reviewing the patient record, examining the patient, making a diagnostic and therapeutic plan, discussing this plan with the medical personnel, following up on diagnostic studies and following the patient for clinical stability excluding any and all procedures. At least 50% of this time was spent in direct, [id number] contact. Thank you, YURI Gomez, for allowing me to participate in this patient's care. Further recommendations will depend on the patient's clinical course. Please do not hesitate to contact me if you have any questions or concerns. This medical document was created using an electronic medical record system with [employer] system. Although these documentations are being carefully reviewed, there may still be some phonetic and typographical changes. The errors are purely typographical, due to imperfection on the software program, and do not reflect any compromise in the patient's medical care. Plan discussed with: Other (RN) My Orders Orders - KENNY FROST MD Procedure Category Date Status Time Abg W/ Co-Ox RT 11/18/24 Logged 13:45 Abg W/ Co-Ox RT 11/19/24 Logged 05:22 Ventilator Orders RT 11/19/24 Transmitted 05:23 Date of Service: Nov 18, 2024 Billing Provider: KENNY FROST MD Common Visit Codes: [id number] INP/OBS CARE(HIGH), [id number] CARE 30-74 MIN KENNY FROST MD Nov 19, 2024 08:42
--- NOTE | 2024-11-19 10:23 | DVHPN2 ---
Progress Note Date Seen: Nov 19, 2024 Has the PT tested + for MRSA If YES, has PT been informed?: No Medical Necessity Reason Pt with a Central, PICC or Fol: No The following are medically ne: PICC Line, Cutler Catheter Reason for cutler catheter: Strict I&O Objective vital signs Vital Sign Date Time Temp Pulse Resp B/P (MAP) Pulse Ox O2 Delivery O2 Flow Rate FiO2 11/19/24 09:32 59 16 119/60 (79) 100 30 11/19/24 07:08 99.3 210.7 11/19/24 06:00 Mechanical Ventilator+ Total Intake and Output 11/18/24 11/18/24 11/19/24 15:00 23:00 07:00 Intake Total 366.25 ml 745.00 ml 922.5 ml Output Total 1000 ml 730 ml Balance 366.25 ml -255.00 ml 192.5 ml medications Current Medications Medications Dose Ordered Sig/Liliam Route Start Time Stop Time Status Last Admin Dose Admin Amino Acids 0 ml @ 0 mls/hr PER PHARMACY IV 10/15/24 18:45 Cancel Dextrose 50 ml UD IV 10/16/24 09:30 Cancel Vancomycin HCl 0 ml @ 0 mls/hr UD IV 10/19/24 14:00 Cancel Metoprolol Tartrate 2.5 mg Q6HPRN PRN IV 10/31/24 09:15 Amino Acids 0 ml @ 0 mls/hr PER PHARMACY IV 11/04/24 22:00 Cancel Amino Acid Protein 30 ml DAILY PO 11/04/24 10:00 11/18/24 07:34 30 ML Pantoprazole Sodium 40 mg BID IV 11/09/24 22:00 11/18/24 22:18 40 MG Morphine Sulfate 4 mg Q4HPRN PRN IV 11/10/24 13:00 11/14/24 01:15 4 MG Acetaminophen/ Hydrocodone Bitart 1 tab Q4HPRN PRN GT 11/10/24 15:30 11/13/24 13:46 1 TAB Mexiletine HCl 150 mg TID GT 11/10/24 22:00 11/19/24 05:30 150 MG Fat Emulsion Intravenous 150 ml/Sodium Acetate 20 meq/Potassium Acetate 30 meq/ Potassium Phosphate 19.8 meq/Calcium Gluconate 2.3 meq/ Magnesium Sulfate 4 meq/ Multivitamins 10 ml/Chromium/ Copper/Manganese/ Zinc 1 ml/Amino Acids/Dextrose/ Purified Water 1,596.4462 ml @ 66 mls/hr [id number] IV 11/11/24 22:00 11/12/24 21:59 Cancel Apixaban 2.5 mg BID PO 11/13/24 22:00 11/18/24 22:18 2.5 MG Hydrocortisone Sodium Succinate 50 mg DAILY IV 11/14/24 10:00 11/18/24 07:34 50 MG Furosemide 40 mg BIDD IV 11/14/24 18:00 11/19/24 05:30 40 MG Phenylephrine HCl 250 ml @ 30 mls/hr Q8H20M IV 11/15/24 09:00 11/19/24 06:37 30 MLS/HR Propofol 100 ml @ 2.088 mls/ hr Q24H IV 11/15/24 11:30 Fentanyl Citrate 250 ml @ 2.5 mls/hr Q24H IV 11/15/24 11:45 11/17/24 10:50 5 MLS/HR Purified Water 150 ml Q6HR GT 11/15/24 18:00 11/19/24 05:30 150 ML Metronidazole 100 ml @ 100 mls/hr Q8HR IV 11/16/24 14:45 11/19/24 05:30 100 MLS/HR Enteral Nutritional Formula 1,000 ml 40ML/HR GT 11/17/24 00:00 Acetaminophen 650 mg Q4HR PRN GT 11/17/24 08:30 Potassium Bicarbonate 50 meq BID PEG 11/18/24 22:00 11/18/24 22:18 50 MEQ Linezolid 300 ml @ 150 mls/hr Q12HR IV 11/19/24 10:00 Examination: GENERAL:Abnormal, LUNGS:Abnormal, CVS:Abnormal, SKIN:Normal laboratory and microbiology Laboratory Tests 11/19/24 03:08 Test 11/19/24 03:08 Range/Units Serum Glucose 82 74-106 mg/dL Microbiology Date/Time Source Procedure Growth Status 11/16/24 04:50 Urine - [place] Urine Culture - Final Enterococcus faecium - VRE Complete 11/14/24 11:50 Sputum Endotracheal Wash Gram Stain - Final Complete 11/14/24 11:50 Sputum Endotracheal Wash Respiratory Culture - Final Complete 11/14/24 08:50 Blood Blood Culture - Final NO GROWTH AFTER 5 DAYS OF INCUBATION. Complete 11/14/24 04:30 Nose MRSA Screen - Final Complete Problem List/Assessment/Plan Problem List/Assessment/Plan BARBIE-hemodynamic mediated etiology proteinuria Cardiac arrest status post V-tach chfref ef 15-20 on eliquis VDRF acute respiratory failure renal function has normalized , electrolytes have normalized k replace prn lasix q 12 ,if not in negative fluid balance by tomorrow will rec additional laisx dose b/c exam does have + edema We will follow renal function closely possible ltac transfer Plan discussed with: Other Dietary Evaluation Review Comments: 1) TF Jevity 1.2Cal @ 55 ml/hr. x 24hr along with Pro-stat 1 pk daily. Start @ 20ml/hr, increase 10ml/hr Q4H until goal is reached. TF @ goal volume provides 1684 kcal (100% energy needs), 88 gm protein (100% protein needs), 1065 ml free water. 2) Water flush 100ml Q4H if allowed, adjust PRN 3) Advance to cardiac diet as medically feasible 4) Monitor NPO status, lab values, wt trend, I/O Expected Outcomes/Goals: To meet >75% estimated needs within 7 days Lab values to improve Fu 2-3 days Critical Care Time (mins): 33 ROSITA QUIGLEY MD Nov 19, 2024 10:23
[2024-11-19] MEDS: LINEZOLID 600MG/300ML 300 ML IV SCH (10:46)
--- NOTE | 2024-11-19 13:48 | DVHPN2 ---
Progress Note - Dictate Date Seen: Nov 19, 2024 Has the PT tested + for MRSA If YES, has PT been informed?: No Medical Necessity Reason Pt with a Central, PICC or Fol: No The following are medically ne: PICC Line, Cutler Catheter Reason for cutler catheter: Strict I&O vital signs Vital Sign Date Time Temp Pulse Resp B/P (MAP) Pulse Ox O2 Delivery O2 Flow Rate FiO2 11/19/24 13:43 134/73 11/19/24 12:05 99.3 55 17 98 210.7 11/19/24 11:25 30 11/19/24 10:00 Mechanical Ventilator+ Total Intake and Output 11/18/24 11/18/24 11/19/24 15:00 23:00 07:00 Intake Total 366.25 ml 745.00 ml 957.5 ml Output Total 1000 ml 730 ml Balance 366.25 ml -255.00 ml 227.5 ml medications Current Medications Medications Dose Ordered Sig/Liliam Route Start Time Stop Time Status Last Admin Dose Admin Amino Acids 0 ml @ 0 mls/hr PER PHARMACY IV 10/15/24 18:45 Cancel Dextrose 50 ml UD IV 10/16/24 09:30 Cancel Vancomycin HCl 0 ml @ 0 mls/hr UD IV 10/19/24 14:00 Cancel Metoprolol Tartrate 2.5 mg Q6HPRN PRN IV 10/31/24 09:15 Amino Acids 0 ml @ 0 mls/hr PER PHARMACY IV 11/04/24 22:00 Cancel Amino Acid Protein 30 ml DAILY PO 11/04/24 10:00 11/19/24 10:48 30 ML Pantoprazole Sodium 40 mg BID IV 11/09/24 22:00 11/19/24 10:45 40 MG Morphine Sulfate 4 mg Q4HPRN PRN IV 11/10/24 13:00 11/14/24 01:15 4 MG Acetaminophen/ Hydrocodone Bitart 1 tab Q4HPRN PRN GT 11/10/24 15:30 11/13/24 13:46 1 TAB Mexiletine HCl 150 mg TID GT 11/10/24 22:00 11/19/24 13:42 150 MG Fat Emulsion Intravenous 150 ml/Sodium Acetate 20 meq/Potassium Acetate 30 meq/ Potassium Phosphate 19.8 meq/Calcium Gluconate 2.3 meq/ Magnesium Sulfate 4 meq/ Multivitamins 10 ml/Chromium/ Copper/Manganese/ Zinc 1 ml/Amino Acids/Dextrose/ Purified Water 1,596.4462 ml @ 66 mls/hr [id number] IV 11/11/24 22:00 11/12/24 21:59 Cancel Apixaban 2.5 mg BID PO 11/13/24 22:00 11/19/24 10:46 2.5 MG Hydrocortisone Sodium Succinate 50 mg DAILY IV 11/14/24 10:00 11/19/24 10:46 50 MG Furosemide 40 mg BIDD IV 11/14/24 18:00 11/19/24 05:30 40 MG Phenylephrine HCl 250 ml @ 30 mls/hr Q8H20M IV 11/15/24 09:00 11/19/24 13:43 30 MLS/HR Propofol 100 ml @ 2.088 mls/ hr Q24H IV 11/15/24 11:30 Fentanyl Citrate 250 ml @ 2.5 mls/hr Q24H IV 11/15/24 11:45 11/17/24 10:50 5 MLS/HR Purified Water 150 ml Q6HR GT 11/15/24 18:00 11/19/24 12:15 150 ML Metronidazole 100 ml @ 100 mls/hr Q8HR IV 11/16/24 14:45 11/19/24 13:43 100 MLS/HR Enteral Nutritional Formula 1,000 ml 40ML/HR GT 11/17/24 00:00 Acetaminophen 650 mg Q4HR PRN GT 11/17/24 08:30 Potassium Bicarbonate 50 meq BID PEG 11/18/24 22:00 11/19/24 10:46 50 MEQ Linezolid 300 ml @ 150 mls/hr Q12HR IV 11/19/24 10:00 11/19/24 10:46 150 MLS/HR objective HEENT: EOMI, PERRLA, normal external inspect of ears, no icterus, no nasal drainage Neck: no carotid bruit, no jugular venous distention (JVD), no lymphadenopathy Chest: normal thorax Respiratory: Intubated, clear to auscultation, normal air movement Cardiovascular: regular rate and rhythm, no diastolic murmur, no jugular venous distention (JVD), no rub, no systolic murmur Abdominal: soft, no hepatomegaly, no mass, no splenomegaly, no tenderness Genitourinary: grossly normal external Musculoskeletal: no joint tenderness, no swelling Extremities: normal pulses, no calf tenderness, no clubbing, no cyanosis, no edema Skin: no bruising, no jaundice, no rash Neurological: No focal deficit laboratory and microbiology Laboratory Tests 11/19/24 03:08 Test 11/19/24 03:08 Range/Units Serum Glucose 82 74-106 mg/dL Problem List Cardiac Arrest with Ventricular Fibrillation Assessment: Patient experienced cardiac arrest with ventricular fibrillation on 10/07/24, witnessed by family members who initiated CPR. EMS found the patient in ventricular fibrillation and administered shock therapy. Rhythm strip analysis confirmed ventricular fibrillation. Patient required intubation and sedation upon ED arrival. Currently admitted to ICU for close observation. Cardiology has been consulted and plans for AICD placement, likely on Tuesday. Infectious disease clearance has been obtained for the AICD procedure, addressing initial concerns of leukocytosis which is now improving. Status post-cardiac arrest. Plan: - Continue ICU monitoring - Proceed with AICD placement as planned (likely Tuesday), cleared by infectious disease. - Maintain intubation and sedation until AICD placement - Continue Heparin drip for paroxysmal atrial fibrillation - Continue Mexitil - DC amiodarone due to transaminitis - added esmolol drip per Cardiology for AFib and added push doses of digoxin Coronary Artery Disease Assessment: Patient with history of 2-vessel CABG (Coronary Artery Bypass Grafting). Surgical intervention previously performed to address significant coronary artery stenosis. Plan: - Continue medical management - Follow up with cardiology for ongoing coronary artery disease management Acute and Chronic Systolic Heart Failure Assessment: Patient has acute and chronic systolic heart failure with severely reduced left ventricular function. Ejection fraction is estimated at 15-20%. RICHIE findings are consistent with severely reduced left ventricular ejection fraction, previously implanted mitral ring, up to moderate mitral stenosis and regurgitation, and moderate aortic insufficiency. Plan: - Continue cardiology consultation - continue IV diuretics (IV Lasix) - Monitor renal function Acute Hypoxic Respiratory Failure Assessment: Patient is currently intubated due to acute hypoxic respiratory failure. Dr. Downey from pulmonology is managing this aspect of care. Plan: - Maintain current intubation as per pulmonology recommendation - Proceed with CPAP trials when deemed appropriate by pulmonology Transaminitis Assessment: Patient has elevated liver function tests, likely secondary to amiodarone use. Cardiology has discontinued amiodarone in response. Plan: - Monitor liver function tests - Amiodarone discontinued as per cardiology Enterobacter PNA Assessment: Sputum culture positive for Enterobacter. Plan: - Continue treatment with Eratapenem to complete 10 days regimen -Infectious disease consult Hemodynamic Support Assessment: Patient requires vasopressor support for hemodynamic stability. Plan: - Continue vasopressin - Continue neosynephrine Paroxysmal a fib -DC amiodarone -continue with heparin gtt Shock liver GI consult, trend liver enzymes, hepatitis panel was negative. Ultrasound of the liver had no acute findings. Assessment/Plan Subjective: Patient is currently sedated on the ventilator. Objective: Patient was admitted status post CPR for ventricular fibrillation. Patient is status post AICD placement. Patient was found to have sepsis due to pneumonia. Patient had acute hypoxic respiratory failure in the emergency room. She was intubated. Patient was successfully extubated her first time. She was very deconditioned and requiring physical therapy twice a day. Patient failed several swallow evals most likely due to prolonged length of stay on the ventilator. Patient ultimately did again have acute hypoxic respiratory failure most likely due to aspiration she was emergently intubated and still has not been able to pass her spontaneous breathing trials. I did speak with patient's father on a prior occasion in regards to possible tracheostomy. I spoke with Dr. Bautista today who stated patient will need a tracheostomy and placement into a an acute care facility. Currently she is tolerating tube feeding. Per dietary they would like to switch to Jevity at 55 mL an hour. Plan: Continue tube feeding as recommended by dietary. Continue water flushes. Continue Stone-Synephrine for blood pressure support. Continue antibiotics for sepsis. Patient found to have VRE today. Start Zyvox and ventilator management per pulmonary. career services officer consult for LTAC and surgical consult for tracheostomy. Dietary Evaluation Review Comments: 1) TF Jevity 1.2Cal @ 55 ml/hr. x 24hr along with Pro-stat 1 pk daily. Start @ 20ml/hr, increase 10ml/hr Q4H until goal is reached. TF @ goal volume provides 1684 kcal (100% energy needs), 88 gm protein (100% protein needs), 1065 ml free water. 2) Water flush 100ml Q4H if allowed, adjust PRN 3) Advance to cardiac diet as medically feasible 4) Monitor NPO status, lab values, wt trend, I/O Expected Outcomes/Goals: To meet >75% estimated needs within 7 days Lab values to improve Fu 2-3 days Plan discussed with: Patient, Other BRODIE GARVIN NP Nov 19, 2024 13:48
--- NOTE | 2024-11-19 14:00 | DVHPN2 ---
Progress Note Date Seen: Nov 19, 2024 Resident Creating Document: ETHAN SWAN RESIDENT Has the PT tested + for MRSA If YES, has PT been informed?: No Medical Necessity Reason Pt with a Central, PICC or Fol: No The following are medically ne: PICC Line, Cutler Catheter Reason for cutler catheter: Strict I&O Subjective Review of Systems Patient seen and examined at bedside Last BM 11/14/2024 Hypoactive bowel sounds Running TF via PEG tube at 30 cc/hour Objective vital signs Vital Sign Date Time Temp Pulse Resp B/P (MAP) Pulse Ox O2 Delivery O2 Flow Rate FiO2 11/19/24 13:44 55 16 134/73 (93) 99 30 11/19/24 12:05 99.3 210.7 11/19/24 10:00 Mechanical Ventilator+ Total Intake and Output 11/18/24 11/18/24 11/19/24 15:00 23:00 07:00 Intake Total 366.25 ml 745.00 ml 957.5 ml Output Total 1000 ml 730 ml Balance 366.25 ml -255.00 ml 227.5 ml medications Current Medications Medications Dose Ordered Sig/Liliam Route Start Time Stop Time Status Last Admin Dose Admin Amino Acids 0 ml @ 0 mls/hr PER PHARMACY IV 10/15/24 18:45 Cancel Dextrose 50 ml UD IV 10/16/24 09:30 Cancel Vancomycin HCl 0 ml @ 0 mls/hr UD IV 10/19/24 14:00 Cancel Metoprolol Tartrate 2.5 mg Q6HPRN PRN IV 10/31/24 09:15 Amino Acids 0 ml @ 0 mls/hr PER PHARMACY IV 11/04/24 22:00 Cancel Amino Acid Protein 30 ml DAILY PO 11/04/24 10:00 11/19/24 10:48 30 ML Pantoprazole Sodium 40 mg BID IV 11/09/24 22:00 11/19/24 10:45 40 MG Morphine Sulfate 4 mg Q4HPRN PRN IV 11/10/24 13:00 11/14/24 01:15 4 MG Acetaminophen/ Hydrocodone Bitart 1 tab Q4HPRN PRN GT 11/10/24 15:30 11/13/24 13:46 1 TAB Mexiletine HCl 150 mg TID GT 11/10/24 22:00 11/19/24 13:42 150 MG Fat Emulsion Intravenous 150 ml/Sodium Acetate 20 meq/Potassium Acetate 30 meq/ Potassium Phosphate 19.8 meq/Calcium Gluconate 2.3 meq/ Magnesium Sulfate 4 meq/ Multivitamins 10 ml/Chromium/ Copper/Manganese/ Zinc 1 ml/Amino Acids/Dextrose/ Purified Water 1,596.4462 ml @ 66 mls/hr [id number] IV 11/11/24 22:00 11/12/24 21:59 Cancel Apixaban 2.5 mg BID PO 11/13/24 22:00 11/19/24 10:46 2.5 MG Hydrocortisone Sodium Succinate 50 mg DAILY IV 11/14/24 10:00 11/19/24 10:46 50 MG Furosemide 40 mg BIDD IV 11/14/24 18:00 11/19/24 05:30 40 MG Phenylephrine HCl 250 ml @ 30 mls/hr Q8H20M IV 11/15/24 09:00 11/19/24 13:43 30 MLS/HR Propofol 100 ml @ 2.088 mls/ hr Q24H IV 11/15/24 11:30 Fentanyl Citrate 250 ml @ 2.5 mls/hr Q24H IV 11/15/24 11:45 11/17/24 10:50 5 MLS/HR Purified Water 150 ml Q6HR GT 11/15/24 18:00 11/19/24 12:15 150 ML Metronidazole 100 ml @ 100 mls/hr Q8HR IV 11/16/24 14:45 11/19/24 13:43 100 MLS/HR Enteral Nutritional Formula 1,000 ml 40ML/HR GT 11/17/24 00:00 Acetaminophen 650 mg Q4HR PRN GT 11/17/24 08:30 Potassium Bicarbonate 50 meq BID PEG 11/18/24 22:00 11/19/24 10:46 50 MEQ Linezolid 300 ml @ 150 mls/hr Q12HR IV 11/19/24 10:00 11/19/24 10:46 150 MLS/HR laboratory and microbiology Laboratory Tests 11/19/24 03:08 Test 11/19/24 03:08 Range/Units Serum Glucose 82 74-106 mg/dL Microbiology Date/Time Source Procedure Growth Status 11/16/24 04:50 Urine - Cutler Port Urine Culture - Final Enterococcus faecium - VRE Complete 11/14/24 11:50 Sputum Endotracheal Wash Gram Stain - Final Complete 11/14/24 11:50 Sputum Endotracheal Wash Respiratory Culture - Final Complete 11/14/24 08:50 Blood Blood Culture - Final NO GROWTH AFTER 5 DAYS OF INCUBATION. Complete 11/14/24 04:30 Nose MRSA Screen - Final Complete Labs and/or images reviewed: Labs reviewed by me, Image(s) reviewed by me Problem List/Assessment/Plan Problem List/Assessment/Plan Acute hepatocellular injury likely shock liver Hepatic cirrhosis? Coagulopathy due to above Ventricular fibrillation S/p cardiopulmonary arrest with shock Heart failure with reduced ejection fraction 15-20% Metabolic versus hypoxic encephalopathy Cholelithiasis without acute inflammation Nonalcoholic fatty liver disease with steatohepatitis Community-acquired pneumonia growing Enterobacter Aspiration pnemonia? sepsis Plan: KUB in the AM IV vitamin K once daily for 3 days PT/INR, ammonia continue antibiotics, consider anaerobic coverage consider MRCP once stable Tapered hydrocortisone to q.12 hours on 11/06/2024 Tapered hydrocortisone to once daily on 11/13/2024 s/p PEG tube placement monitor LFT's Keep PT/INR therapeutic Hemoglobin stable, transfuse if HB 7 or less Continue tube feedings at 20cc/hr Decreased metoclopramide to 5 mg IV b.i.d. JAIDEN positive, outpatient follow up with GI recommended for further workup Thank you so much for the opportunity to consult on your patient. GI team will follow the patient. In case of any questions or concerns please feel free to reach out. Plan discussed with Dr. Anglin Plan discussed with: Other (RN) My Orders My Orders Orders - ETHAN SWAN RESIDENT Procedure Category Date Status Time Hepatic Panel LAB 11/19/24 Transmitted 13:58 Dietary Evaluation Review Comments: 1) TF Jevity 1.2Cal @ 55 ml/hr. x 24hr along with Pro-stat 1 pk daily. Start @ 20ml/hr, increase 10ml/hr Q4H until goal is reached. TF @ goal volume provides 1684 kcal (100% energy needs), 88 gm protein (100% protein needs), 1065 ml free water. 2) Water flush 100ml Q4H if allowed, adjust PRN 3) Advance to cardiac diet as medically feasible 4) Monitor NPO status, lab values, wt trend, I/O Expected Outcomes/Goals: To meet >75% estimated needs within 7 days Lab values to improve Fu 2-3 days ETHAN SWAN RESIDENT Nov 19, 2024 14:00
[2024-11-19 15:15] LABS: Albumin 2.7 g/dL (3.2-4.8); Alkaline Phosphatase 259.0 U/L (46-116); Bilirubin, Direct 1.9 mg/dL (<0.3); Bilirubin, Total 3.1 mg/dL (0.2-1.0); Total Protein 5.3 g/dL (5.7-8.2)
[2024-11-19] MEDS: METOCLOPRAMIDE HCL 5MG/ml INJ 2ml VIAL IV ONE (15:25)
[2024-11-19 15:29] LABS: Alanine Aminotransferase 1787.0 U/L (7-40)
--- NOTE | 2024-11-19 16:31 | ECG ---
[facility] Test Date: 2024-11-15 Test Time: 01:53:46 Pat Name: CLAIRE OLIVO Department: icu Room: [address] [place] [address] A Gender: F Guide Tour: ferdinand : 1970 Requested By: BRODIE GARVIN Order Number: [id number] Reading MD: Marito Skelton Measurements Intervals [place] Rate: 68 P: -74 NV: 168 QRS: 13 QRSD: 98 T: -82 QT: 601 QTc: 640 Interpretive Statements Ectopic atrial rhythm Probable LVH with secondary repol abnrm Prolonged QT interval Electronically Signed On 11-19-2024 18:17:49 PDT by Marito Skelton Please click the below link to view image of tracing.
[2024-11-19] MEDS: Jevity 1.2 Cal/Fiber 1 Liter GT SCH (19:25)
--- NOTE | 2024-11-19 20:58 | DVHPN2 ---
Progress Note - Dictate Date Seen: Nov 19, 2024 Has the PT tested + for MRSA If YES, has PT been informed?: No Medical Necessity Reason Pt with a Central, PICC or Fol: No The following are medically ne: PICC Line, Cutler Catheter Reason for cutler catheter: Strict I&O Subjective Ms. Smith is a 54 years old female who was brought to the [facility] on 10/07/2024 with a chief complaint of cardiopulmonary arrest/status post CPR. I have seen and examined the patient in the ICU, I have discussed with nurse. She is intubated, but is responsive to light touch and passive to verbal stimuli, she moves both arms minimally She had PEG insert on 11/09/2024 Blood culture, 10/09/2024: No growth Blood culture, 10/19/2024: ABG, 11/04/2024 0220: Metabolic acidosis, 11/04/2024 0427: Metabolic acidosis UDS, 10/07/2024: Negative Urinalysis, 10/07/2024: Leukocyte esterase: Negative WBC/HB/PLT/MCV, 10/09/2024: 20/8.8/219/94.6, 10/10/2024: 21.2/8.7/232/92.2, 11/14/2024: 13.9/10.5/101/I04.1 PT/INR/PTT, 10/08/2024: 12.4/1.19/72.7, 10/09/2024: 13.1/1.26/68.9, 10/10/2024: 14.4/2/1.38/35.3 CMP, 10/08/2024: Unremarkable Troponin one high sensitivity, 10/07/2024: 141, 138, 117 TBI/AST/ALT/AP, 10/10/2024: 0.5/538/168/144, 10/11/2024: 0.6/293/199/152, 10/14/2024: 0.8/68/74/124 TG/HDL/LDL/HDL, 10/07/24: 71/66/31/21 EKG 10/10/2024: Atrial fibrillation EKG, 10/15/2024: Atrial fibrillation Echocardiogram, 10/07/2024: lvef 15-20% dilated LV severe global dysfunction mild RV dysfunction biatrial enlargement mild moderate MAC, moderate mitral regurg mild to moderate aortic regug RICHIE, 10/08/2024: 1. Left ventricle: Dilated LV was seen. LVEF was 25%. There was diffuse hypokinesis of left ventricle. 2. Right ventricle: RV was mildly dilated. 3. Left atrium: LA enlarged 4. Right atrium: RA was enlarged. 5. Mitral valve: Mitral was thickened with reduced opening. Moderate Mitral regurgitation was seen. Planinomentry of valve (TTE images also obtained) revealed MVA of 2.1 cm. Mean pressure gradient (obtained from limited TTE images) was 5. Images are consistent with previously implanted Ring in Mitral position. Consistent with up to Moderate Mitral stenosis. . There was no vegetation 6. Left atrial appendage: No evidence of thrombus. 7. Aortic valve: Trileaflet valve. No stenosis. Up to moderate Aortic Insufficiency was seen. There was no vegetation 8. Pulmonic valve: Trivial pulmonic insufficiency. No significant stenosis. 9. Tricuspid valve: Mild tricuspid regurgitation. There was no vegetation 10. Interatrial septum: Negative color flow for right to left shunt was observed. Bubble study was performed: negative for shunt 11. Pericardium: No significant effusion. 12. Thoracic aorta: No significant plaquing. Chest x-ray, 10/27/2024: 1. Cardiomegaly, stable diffuse increased prominence of the pulmonary vasculature and small bilateral pleural effusions. 2. Slight interval advancement of endotracheal tube as above. Remaining lines and tubes unchanged. CT head, 10/07/2024: No acute intracranial abnormality General: the patient is well developed and nourished. No acute distress. Intubated CT head, 10/07/2024: No acute intracranial abnormality. CT head, 10/11/2024: No acute intracranial abnormality CT head, 11/01/2024: As above, the other systems are negative CT head, 11/15/2024: 1. No acute intracranial abnormality. 2. No findings to suggest territorial ischemia. vital signs Vital Sign Date Time Temp Pulse Resp B/P (MAP) Pulse Ox O2 Delivery O2 Flow Rate FiO2 11/19/24 20:33 55 18 113/57 (75) 99 30 11/19/24 19:00 99.1 99.1 11/19/24 18:44 Mechanical Ventilator Total Intake and Output 11/18/24 11/18/24 11/19/24 15:00 23:00 07:00 Intake Total 366.25 ml 745.00 ml 957.5 ml Output Total 1000 ml 730 ml Balance 366.25 ml -255.00 ml 227.5 ml medications Current Medications Medications Dose Ordered Sig/Liliam Route Start Time Stop Time Status Last Admin Dose Admin Amino Acids 0 ml @ 0 mls/hr PER PHARMACY IV 10/15/24 18:45 Cancel Dextrose 50 ml UD IV 10/16/24 09:30 Cancel Vancomycin HCl 0 ml @ 0 mls/hr UD IV 10/19/24 14:00 Cancel Metoprolol Tartrate 2.5 mg Q6HPRN PRN IV 10/31/24 09:15 Amino Acids 0 ml @ 0 mls/hr PER PHARMACY IV 11/04/24 22:00 Cancel Amino Acid Protein 30 ml DAILY PO 11/04/24 10:00 11/19/24 10:48 30 ML Pantoprazole Sodium 40 mg BID IV 11/09/24 22:00 11/19/24 10:45 40 MG Mexiletine HCl 150 mg TID GT 11/10/24 22:00 11/19/24 13:42 150 MG Fat Emulsion Intravenous 150 ml/Sodium Acetate 20 meq/Potassium Acetate 30 meq/ Potassium Phosphate 19.8 meq/Calcium Gluconate 2.3 meq/ Magnesium Sulfate 4 meq/ Multivitamins 10 ml/Chromium/ Copper/Manganese/ Zinc 1 ml/Amino Acids/Dextrose/ Purified Water 1,596.4462 ml @ 66 mls/hr [id number] IV 11/11/24 22:00 11/12/24 21:59 Cancel Apixaban 2.5 mg BID PO 11/13/24 22:00 11/19/24 10:46 2.5 MG Hydrocortisone Sodium Succinate 50 mg DAILY IV 11/14/24 10:00 11/19/24 10:46 50 MG Furosemide 40 mg BIDD IV 11/14/24 18:00 11/19/24 17:54 40 MG Phenylephrine HCl 250 ml @ 30 mls/hr Q8H20M IV 11/15/24 09:00 11/19/24 13:43 30 MLS/HR Propofol 100 ml @ 2.088 mls/ hr Q24H IV 11/15/24 11:30 Fentanyl Citrate 250 ml @ 2.5 mls/hr Q24H IV 11/15/24 11:45 11/17/24 10:50 5 MLS/HR Purified Water 150 ml Q6HR GT 11/15/24 18:00 11/19/24 17:54 150 ML Metronidazole 100 ml @ 100 mls/hr Q8HR IV 11/16/24 14:45 11/19/24 13:43 100 MLS/HR Acetaminophen 650 mg Q4HR PRN GT 11/17/24 08:30 Potassium Bicarbonate 50 meq BID PEG 11/18/24 22:00 11/19/24 10:46 50 MEQ Linezolid 300 ml @ 150 mls/hr Q12HR IV 11/19/24 10:00 11/19/24 10:46 150 MLS/HR Enteral Nutritional Formula 1,000 ml 55ML/HR GT 11/19/24 15:00 11/19/24 19:25 1,000 ML Metoclopramide HCl 5 mg Q8HR IV 11/19/24 22:00 objective The patient is well-nourished and well-developed with no distress. Intubated MENTAL STATUS: Subjective CRANIAL NERVES: Pupils are equal, round and reactive. This corneal reflex and doll's eye phenomena. No some facial weakness, she has gag reflexes. SENSATION: Okay to light touch and painful stimuli MOTOR: Normal tone in the upper and lower extremity. Normal muscle bulk. No fasciculations. Subjective REFLEXES: Deep tendon reflexes are symmetrical. No pathological reflexes. CEREBELLAR/COORDINATION: Deferred GAIT/STATION: deferred. laboratory and microbiology Laboratory Tests 11/19/24 03:08 Test 11/19/24 03:08 Range/Units Serum Glucose 82 74-106 mg/dL Problem List Cardiopulmonary arrest Status post CPR Reintubated on 11/14/2024 Metabolic encephalopathy Hypoxic encephalopathy Congestive heart failure Leukocytosis/sepsis/septic shock Respiratory failure Elevated liver function tests AFib S/P pacemaker insertion on 10/17/2024 ? Chronic organic brain syndrome Assessment/Plan Monitoring Supportive treatment ICU care Stabilize vitals/pressor drip Respiratory support/ vent management Oxygen DVT prophylaxis GI prophylaxis Cardiology on case Pulmonology on case Nephrology on case Need more history This medical document was created using an electronic medical record system with [employer] dictation system. Although this document has been carefully reviewed, there may still be some phonetic and typographical errors. These areas are purely typographical due to imperfections of the software programs, and do not reflect any compromise in the patient's medical care. Prognosis guarded Dietary Evaluation Review Comments: 1) TF Jevity 1.2Cal @ 55 ml/hr. x 24hr along with Pro-stat 1 pk daily. Start @ 20ml/hr, increase 10ml/hr Q4H until goal is reached. TF @ goal volume provides 1684 kcal (100% energy needs), 88 gm protein (100% protein needs), 1065 ml free water. 2) Water flush 100ml Q4H if allowed, adjust PRN 3) Advance to cardiac diet as medically feasible 4) Monitor NPO status, lab values, wt trend, I/O Expected Outcomes/Goals: To meet >75% estimated needs within 7 days Lab values to improve Fu 2-3 days Plan discussed with: Other CAROLINE ROBB MD Nov 19, 2024 20:58
[2024-11-19] MEDS: METOCLOPRAMIDE HCL 5MG/ml INJ 2ml VIAL IV SCH (22:00)
--- NOTE | 2024-11-19 22:57 | DVHPN2 ---
Subjective DOS: 11/19/2024 Patient seen and examined at bedside. Sedated, intubated on mechanical ventilator. Overnight events reviewed. Changes from previous H/P or p: No Changes Objective Vitals Vital Signs Date Time Temp Pulse Resp B/P (MAP) Pulse Ox O2 Delivery O2 Flow Rate FiO2 11/19/24 22:30 55 19 104/55 (71) 99 11/19/24 22:18 30 11/19/24 22:00 Mechanical Ventilator+ 11/19/24 21:30 98.8 98.8 Intake/Output Intake and Output 11/19/24 07:00 Intake Total 2068.75 ml Output Total 1730 ml Balance 338.75 ml Intake Oral 940 ml IV Total 1008.75 ml Tube Feeding 120 ml Output Urine Total 1730 ml Stool Total 0 ml Exam Gen.: Patient lying in bed in medical ICU. Sedated, intubated on mechanical ventilator. Head: Normocephalic, atraumatic. Eyes: PERRLA. Ears: Normal external anatomy. Throat: Endotracheal tube and orogastric tube in place. Neck: Supple, trachea midline. Chest: Transmitted breath sounds bilaterally. Decreased air entry bilaterally. No wheezing. Bibasilar crackles. Cardiovascular: Positive S1, positive S2. Regular rate and rhythm. Abdomen: Positive bowel sounds in all 4 quadrants. Soft, nontender, nondistended. : Westfall in place. Normal external genitalia. Rectal: Deferred. Skin: Warm, dry. Intact. Extremities: 2+ radial pulses bilaterally. No lower extremity edema. Neuro: Sedated. Medications Current Medications Medications Dose Ordered Sig/Liliam Route Start Time Stop Time Status Last Admin Dose Admin Amino Acids 0 ml @ 0 mls/hr PER PHARMACY IV 10/15/24 18:45 Cancel Dextrose 50 ml UD IV 10/16/24 09:30 Cancel Vancomycin HCl 0 ml @ 0 mls/hr UD IV 10/19/24 14:00 Cancel Metoprolol Tartrate 2.5 mg Q6HPRN PRN IV 10/31/24 09:15 Amino Acids 0 ml @ 0 mls/hr PER PHARMACY IV 11/04/24 22:00 Cancel Amino Acid Protein 30 ml DAILY PO 11/04/24 10:00 11/19/24 10:48 30 ML Pantoprazole Sodium 40 mg BID IV 11/09/24 22:00 11/19/24 22:15 40 MG Mexiletine HCl 150 mg TID GT 11/10/24 22:00 11/19/24 22:17 150 MG Fat Emulsion Intravenous 150 ml/Sodium Acetate 20 meq/Potassium Acetate 30 meq/ Potassium Phosphate 19.8 meq/Calcium Gluconate 2.3 meq/ Magnesium Sulfate 4 meq/ Multivitamins 10 ml/Chromium/ Copper/Manganese/ Zinc 1 ml/Amino Acids/Dextrose/ Purified Water 1,596.4462 ml @ 66 mls/hr [id number] IV 11/11/24 22:00 11/12/24 21:59 Cancel Apixaban 2.5 mg BID PO 11/13/24 22:00 11/19/24 22:17 2.5 MG Hydrocortisone Sodium Succinate 50 mg DAILY IV 11/14/24 10:00 11/19/24 10:46 50 MG Furosemide 40 mg BIDD IV 11/14/24 18:00 11/19/24 17:54 40 MG Phenylephrine HCl 250 ml @ 30 mls/hr Q8H20M IV 11/15/24 09:00 11/19/24 13:43 30 MLS/HR Propofol 100 ml @ 2.088 mls/ hr Q24H IV 11/15/24 11:30 Fentanyl Citrate 250 ml @ 2.5 mls/hr Q24H IV 11/15/24 11:45 11/17/24 10:50 5 MLS/HR Purified Water 150 ml Q6HR GT 11/15/24 18:00 11/19/24 17:54 150 ML Metronidazole 100 ml @ 100 mls/hr Q8HR IV 11/16/24 14:45 11/19/24 22:15 100 MLS/HR Acetaminophen 650 mg Q4HR PRN GT 11/17/24 08:30 Potassium Bicarbonate 50 meq BID PEG 11/18/24 22:00 11/19/24 22:20 50 MEQ Linezolid 300 ml @ 150 mls/hr Q12HR IV 11/19/24 10:00 11/19/24 22:20 150 MLS/HR Enteral Nutritional Formula 1,000 ml 55ML/HR GT 11/19/24 15:00 11/19/24 19:25 1,000 ML Metoclopramide HCl 5 mg Q8HR IV 11/19/24 22:00 Laboratory Results Laboratory Tests 11/19/24 03:08 Chemistry Test 11/19/24 03:08 Albumin 2.7 g/dL (3.2-4.8) L Calcium Level 8.4 mg/dL (8.7-10.4) L Magnesium Level 2.0 mg/dL (1.6-2.6) Total Protein 5.3 g/dL (5.7-8.2) L LFT Test 11/19/24 03:08 Alanine Aminotransferase (ALT) 1787 U/L (7-40) H Alkaline Phosphatase 259 U/L (46-116) H Aspartate Amino Transferase (AST) 131 U/L (13-40) H Direct Bilirubin 1.9 mg/dL (<0.3) H Total Bilirubin 3.1 mg/dL (0.2-1.0) H Urinalysis Test 10/09/24 22:25 11/15/24 04:00 Urine Creatinine 31.20 mg/dL (30.0-125.0) Urine Protein/Creatinine Ratio 0.72 Urine Sodium 79 mmol/L (40-220) Urine Total Protein 22.5 mg/dL (1-14) H Urine Color Yellow (Yellow) Urine Clarity Turbid (Clear) H Urine pH 5.0 (5.0-9.0) Urine Specific [place] 1.012 (1.001-1.035) Urine Protein Trace (Negative) H Urine Ketones Negative (Negative) Urine Blood 2+ /uL (Negative) H Urine Nitrite Negative (Negative) Urine Bilirubin Negative (Negative) Urine Urobilinogen Normal mg/dL (Negative) Urine Leukocyte Esterase 1+ /uL (Negative) Urine RBC 3 /hpf (0 - 4) Urine Microscopic WBC 14 /HPF (0-5) H Urine Squamous Epithelial Cells Few /hpf (<5) Urine Calcium Oxalate Crystals Few (None Seen) Urine Amorphous Crystals Few /hpf (None Seen) Urine Bacteria Few /hpf (None Seen) H Urine Hyaline Casts Mod /lpf (0 - 2) Urine Mucus Few (None Seen) Urine Glucose Normal mg/dL (Normal) Blood Gas Results Test 11/19/24 06:13 Arterial Blood pH 7.483 (7.350-7.450) FiO2 % 30.0 Microbiology Microbiology Date/Time Source Procedure Growth Status 11/16/24 04:50 Urine - [place] Urine Culture - Final Enterococcus faecium - VRE Complete 11/14/24 11:50 Sputum Endotracheal Wash Gram Stain - Final Complete 11/14/24 11:50 Sputum Endotracheal Wash Respiratory Culture - Final Complete 11/14/24 08:50 Blood Blood Culture - Final NO GROWTH AFTER 5 DAYS OF INCUBATION. Complete 11/14/24 04:30 Nose MRSA Screen - Final Complete Assessment/Plan Assessment/Plan Impression: Acute hypoxic respiratory failure On mechanical ventilator s/p cardiac arrest Ventricular tachycardia CPR <5 min Elevated troponin Atelectasis Anemia Events: Remains on vent support Currently on assist control with respiratory rate of 16, tidal volume 380, PEEP 5, FiO2 of 30% Tidal volume was tapered to 350 mL ABG reviewed, notable for alkalemia CXR notable for cardiomegaly and pulmonary congestion. Devices in place. On pressors for hemodynamic support On Stone-Synephrine 15 mcg/min Titrate to keep MAP above 65 mmHg/SBP above 90 mmHg. Continue antibiotics Continue IV steroids Tube feeds for nutritional support Recommend tracheostomy vs. skilled nursing acute care. Labs and imaging reviewed. Rest of plan as noted below. Plan: On mechanical ventilator Settings: Assist control with respiratory rate of 16, tidal volume 380-->350, PEEP 5, FiO2 of 30% Titrate FiO2 to keep sats above 92%. VAP bundle Continue antibiotics. F/u cultures. Sputum culture normal from normal oropharyngeal melissa. Urine culture notable for Gram-positive melissa, greater than 100 K. follow up final report. Continue antifungal IV steroids On pressors for hemodynamic support. On Stone-Synephrine On stress dose steroids. Taper down as tolerated. Vitamin K was given on 11/18/24 Monitor hemoglobin Accu-Cheks, ISS PRN. Monitor labs Monitor renal function. On diuresis with Lasix twice daily. Monitor electrolytes. Supplement as necessary. Supplement potassium Supplement magnesium Monitor ins and outs. Maintain euvolemia Cardiology recommendations appreciated. Monitor hemoglobin On Protonix twice daily GI/DVT prophylaxis. On Eliquis twice daily. Prognosis: Poor given patient's multiple co-morbidities. Condition: Critical Rest of plan per hospitalist and other consultants. A total of 35 minutes of critical care time was spent reviewing the patient record, examining the patient, making a diagnostic and therapeutic plan, discussing this plan with the medical personnel, following up on diagnostic studies and following the patient for clinical stability excluding any and all procedures. At least 50% of this time was spent in direct, [id number] contact. Thank you, YURI Gomez, for allowing me to participate in this patient's care. Further recommendations will depend on the patient's clinical course. Please do not hesitate to contact me if you have any questions or concerns. This medical document was created using an electronic medical record system with [employer] dictation system. Although these documentations are being carefully reviewed, there may still be some phonetic and typographical changes. The errors are purely typographical, due to imperfection on the software program, and do not reflect any compromise in the patient's medical care. Plan discussed with: Other (CEE Rosales) My Orders Orders - KENNY FROST MD Procedure Category Date Status Time Abg W/ Co-Ox RT 11/19/24 Logged 05:22 Ventilator Orders RT 11/19/24 Transmitted 05:23 Ventilator Orders RT 11/19/24 Transmitted 20:30 Date of Service: Nov 19, 2024 Billing Provider: KENNY FROST MD Common Visit Codes: [id number] INP/OBS CARE(HIGH), [id number] CARE 30-74 MIN KENNY FROST MD Nov 19, 2024 22:57
[2024-11-20] VITALS (106 sets, daily range): BP systolic 95–137; BP diastolic 46–66; PULSE 47–64; RESP 12–30; TEMP 97.8–99.1; O2SAT 96–100
[2024-11-20 04:19] LABS: Hematocrit 41.6 % (36.0-46.0); Hemoglobin 13.3 g/dL (12.2-16.2); Mean Corpuscular Hemoglobin 30.0 pg (28.0-32.0); Mean Corpuscular Volume 94.3 fL (80.0-100.0); Nucleated Red Blood Cells % 0.4 %
[2024-11-20 04:22] LABS: Anion Gap 9 (5-15); Chloride 98 mmol/L (98-107); Potassium 4.9 mmol/L (3.5-5.1); Sodium 140 mmol/L (136-145)
[2024-11-20 04:28] LABS: BUN/Creatinine Ratio 39.7 (10.0-20.0)
[2024-11-20 04:36] LABS: Blood Urea Nitrogen 25 mg/dL (9-23); Calcium 8.6 mg/dL (8.7-10.4); Carbon Dioxide 33 mmol/L (20-31); Glucose 106 mg/dL (74-106)
--- NOTE | 2024-11-20 04:43 | DVH ---
CHEST RADIOGRAPH Indication: INTUBATED Technique: Single frontal view of the chest was obtained COMPARISON: XY CHEST PORTABLE on DOS: 11/19/24, XY CHEST PORTABLE on DOS: 11/18/24, XY CHEST PORTABLE o n DOS: 11/17/24, XY CHEST PORTABLE on DOS: 11/16/24, XY CHEST PORTABLE on DOS: 11/15/24 FINDINGS: Lines and Tubes: Slight interval advancement of endotracheal tube such that the tip now projects appr oximately 3.7 cm above the level of the tyler. Remaining lines and tubes unchanged. Lungs: Clear Pleura: No effusion. No pneumothorax. Cardiomediastinal contours: Cardiomegaly. Bones: Unremarkable IMPRESSION: 1. Interval advancement of endotracheal tube such that the tip now projects approximately 3.7 cm abov e the level of the tyler. Remaining lines and tubes unchanged. 2. Cardiomegaly.
[2024-11-20 06:59] LABS: Base Excess 8.5 mmol/L (-2.0-3.0)
--- NOTE | 2024-11-20 08:18 | DVH ---
Date: 11/20/2024 06:14 AM Examination: XY KUB ABDOMEN SINGLE VIEW History: ileus Comparison: US GALLBLADDER on DOS: 11/15/24, XY KUB ABDOMEN SINGLE VIEW on DOS: 11/11/24, US BLADDER on DOS: 11/03/24, US ABDOMEN LIMITED on DOS: 10/30/24, US BLADDER on DOS: 10/29/24 TECHNIQUE: Frontal views of the abdomen was obtained. FINDINGS: Bowel gas pattern is unremarkable. The lung bases are unremarkable. No acute osseous abnormality identified. IMPRESSION: Nonobstructive bowel gas pattern. Right central venous catheter tip in the IVC Westfall catheter overlying the bladder.
--- NOTE | 2024-11-20 09:35 | DVHPN2 ---
Progress Note Date Seen: Nov 20, 2024 Has the PT tested + for MRSA If YES, has PT been informed?: No Medical Necessity Reason Pt with a Central, PICC or Fol: No The following are medically ne: PICC Line, Cutler Catheter Reason for cutler catheter: Strict I&O Subjective Changes from previous H/P or p: No Changes Objective vital signs Vital Sign Date Time Temp Pulse Resp B/P (MAP) Pulse Ox O2 Delivery O2 Flow Rate FiO2 11/20/24 08:00 55 18 98 Mechanical Ventilator+ 30 30 11/20/24 07:51 123/54 (77) 11/20/24 04:00 98.6 98.6 Total Intake and Output 11/19/24 11/19/24 11/20/24 15:00 23:00 07:00 Intake Total 730 ml 782.00 ml 1286.25 ml Output Total 1050 ml 750 ml Balance 730 ml -268.00 ml 536.25 ml medications Current Medications Medications Dose Ordered Sig/Liliam Route Start Time Stop Time Status Last Admin Dose Admin Amino Acids 0 ml @ 0 mls/hr PER PHARMACY IV 10/15/24 18:45 Cancel Dextrose 50 ml UD IV 10/16/24 09:30 Cancel Vancomycin HCl 0 ml @ 0 mls/hr UD IV 10/19/24 14:00 Cancel Metoprolol Tartrate 2.5 mg Q6HPRN PRN IV 10/31/24 09:15 Amino Acids 0 ml @ 0 mls/hr PER PHARMACY IV 11/04/24 22:00 Cancel Amino Acid Protein 30 ml DAILY PO 11/04/24 10:00 11/19/24 10:48 30 ML Pantoprazole Sodium 40 mg BID IV 11/09/24 22:00 11/19/24 22:15 40 MG Mexiletine HCl 150 mg TID GT 11/10/24 22:00 11/20/24 05:28 150 MG Fat Emulsion Intravenous 150 ml/Sodium Acetate 20 meq/Potassium Acetate 30 meq/ Potassium Phosphate 19.8 meq/Calcium Gluconate 2.3 meq/ Magnesium Sulfate 4 meq/ Multivitamins 10 ml/Chromium/ Copper/Manganese/ Zinc 1 ml/Amino Acids/Dextrose/ Purified Water 1,596.4462 ml @ 66 mls/hr [id number] IV 11/11/24 22:00 11/12/24 21:59 Cancel Apixaban 2.5 mg BID PO 11/13/24 22:00 11/19/24 22:17 2.5 MG Hydrocortisone Sodium Succinate 50 mg DAILY IV 11/14/24 10:00 11/19/24 10:46 50 MG Furosemide 40 mg BIDD IV 11/14/24 18:00 11/20/24 05:27 40 MG Phenylephrine HCl 250 ml @ 30 mls/hr Q8H20M IV 11/15/24 09:00 11/20/24 07:04 30 MLS/HR Propofol 100 ml @ 2.088 mls/ hr Q24H IV 11/15/24 11:30 Fentanyl Citrate 250 ml @ 2.5 mls/hr Q24H IV 11/15/24 11:45 11/19/24 23:02 2.5 MLS/HR Purified Water 150 ml Q6HR GT 11/15/24 18:00 11/20/24 05:28 150 ML Metronidazole 100 ml @ 100 mls/hr Q8HR IV 11/16/24 14:45 11/20/24 05:27 100 MLS/HR Acetaminophen 650 mg Q4HR PRN GT 11/17/24 08:30 Potassium Bicarbonate 50 meq BID PEG 11/18/24 22:00 11/19/24 22:20 50 MEQ Linezolid 300 ml @ 150 mls/hr Q12HR IV 11/19/24 10:00 11/19/24 22:20 150 MLS/HR Enteral Nutritional Formula 1,000 ml 55ML/HR GT 11/19/24 15:00 11/19/24 19:25 1,000 ML Metoclopramide HCl 5 mg Q8HR IV 11/19/24 22:00 Examination: GENERAL:Abnormal, CVS:Abnormal laboratory and microbiology Laboratory Tests 11/20/24 03:15 Test 11/20/24 03:15 Range/Units Serum Glucose 106 74-106 mg/dL Microbiology Date/Time Source Procedure Growth Status 11/16/24 04:50 Urine - [place] Urine Culture - Final Enterococcus faecium - VRE Complete 11/14/24 11:50 Sputum Endotracheal Wash Gram Stain - Final Complete 11/14/24 11:50 Sputum Endotracheal Wash Respiratory Culture - Final Complete 11/14/24 08:50 Blood Blood Culture - Final NO GROWTH AFTER 5 DAYS OF INCUBATION. Complete 11/14/24 04:30 Nose MRSA Screen - Final Complete Problem List/Assessment/Plan Problem List/Assessment/Plan BARBIE-hemodynamic mediated etiology proteinuria Cardiac arrest status post V-tach chfref ef 15-20 on eliquis VDRF acute respiratory failure renal function has normalized , electrolytes have normalized k replace prn lasix q 12 , extra dose today monitor for tolerance We will follow renal function closely possible ltac transfer Plan discussed with: Other Dietary Evaluation Review Comments: 1) TF Jevity 1.2Cal @ 55 ml/hr. x 24hr along with Pro-stat 1 pk daily. Start @ 20ml/hr, increase 10ml/hr Q4H until goal is reached. TF @ goal volume provides 1684 kcal (100% energy needs), 88 gm protein (100% protein needs), 1065 ml free water. 2) Water flush 100ml Q4H if allowed, adjust PRN 3) Advance to cardiac diet as medically feasible 4) Monitor NPO status, lab values, wt trend, I/O Expected Outcomes/Goals: To meet >75% estimated needs within 7 days Lab values to improve Fu 2-3 days Critical Care Time (mins): 33 ROSITA QUIGLEY MD Nov 20, 2024 09:35
--- NOTE | 2024-11-20 10:20 | DVHINCON2 ---
Date of service: Nov 20, 2024 Family History: Alcoholism Cardiovascular disease G8 MOTHER Allergies: Coded Allergies: NO KNOWN ALLERGIES (Unverified , 10/07/24) Current Medications Current Medications Medications (Trade) Dose Ordered Sig/Liliam Route PRN Reason Start Time Stop Time Status Last Admin Enteral Nutritional Formula (Jevity 1.2 Ron/ Fiber) 1,000 ml 55ML/HR GT 11/19/24 15:00 11/19/24 19:25 Metoclopramide HCl (Reglan Injection) 5 mg Q8HR IV 11/19/24 22:00 11/20/24 10:04 Vital Signs Vital Signs Date Time Temp Pulse Resp B/P (MAP) Pulse Ox O2 Delivery O2 Flow Rate FiO2 11/20/24 09:59 55 16 101/51 (68) 99 30 11/20/24 08:00 Mechanical Ventilator+ 11/20/24 04:00 98.6 98.6 Labs/Diagnostic Data Labs Test 11/20/24 06:45 11/20/24 03:15 11/19/24 03:08 11/18/24 07:05 Range/Units Blood Gas Specimen Type Arterial Blood Gas Sample Site Right radial Blood Gas Patient Temperature 37.0 Arterial Blood Date Drawn [id number] Arterial Blood pH 7.505 H 7.350-7.450 Arterial Blood Partial Pressure CO2 42.0 32.0-45.0 mmHg Arterial Blood Partial Pressure O2 88.9 83.0-108.0 mmHg Arterial Blood HCO3 32.4 H 21.0-28.0 mmol/L Arterial Blood Oxygen Saturation 97.0 94.0-98.0 % Arterial Blood Base Excess 8.5 H -2.0-3.0 mmol/L Arterial Blood Oxyhemoglobin 96.0 94.0-98.0 % Arterial Blood Carboxyhemoglobin 0.7 0.5-1.5 % Arterial Blood Methemoglobin 0.3 0.0-1.5 % Trung Test Modified Blood Gas Total Hemoglobin 12.90 12.0-16.0 g/dL Blood Gas Set Respiration Rate 16.0 Blood Gas Modality Vent - ac FiO2 % 30.0 Blood Gas Tidal Volume 350.0 Blood Gas PEEP or CPAP 5.0 White Blood Count 10.6 4.4-10.8 10^3/uL Red Blood Count 4.42 4.0-5.20 10^6/uL Hemoglobin 13.3 12.2-16.2 g/dL Hematocrit 41.6 36.0-46.0 % Mean Corpuscular Volume 94.3 80.0-100.0 fL Mean Corpuscular Hemoglobin 30.0 28.0-32.0 pg Mean Corpuscular Hemoglobin Concent 31.9 L 32.0-36.0 g/dL Red Cell Distribution Width 24.6 H 11.8-14.3 % Platelet Count 99 L 140-450 10^3/uL Mean Platelet Volume 10.8 6.9-10.8 fL Neutrophils (%) (Auto) 80.7 H 37.0-80.0 % Lymphocytes (%) (Auto) 12.7 10.0-50.0 % Monocytes (%) (Auto) 6.4 0.0-12.0 % Eosinophils (%) (Auto) 0.1 0.0-7.0 % Basophils (%) (Auto) 0.1 0.0-2.0 % Neutrophils # (Auto) 8.6 1.6-8.6 10 ^3/uL Lymphocytes # (Auto) 1.4 0.4-5.4 10 ^3/uL Monocytes # (Auto) 0.7 0-1.3 10 ^3/uL Eosinophils # (Auto) 0 0-0.8 10 ^3/uL Basophils # (Auto) 0 0-0.2 10 ^3/uL Nucleated Red Blood Cells 0.4 % Sodium Level 140 136-145 mmol/L Potassium Level 4.9 3.5-5.1 mmol/L Chloride Level 98 98-107 mmol/L Carbon Dioxide Level 33 H 20-31 mmol/L Anion Gap 9 5-15 Blood Urea Nitrogen 25 H 9-23 mg/dL Creatinine 0.63 0.550-1.02 mg/dL Glomerular Filtration Rate Calc 105 >90 mL/min BUN/Creatinine Ratio 39.7 H 10.0-20.0 Serum Glucose 106 74-106 mg/dL Calcium Level 8.6 L 8.7-10.4 mg/dL Total Bilirubin 3.1 H 0.2-1.0 mg/dL Direct Bilirubin 1.9 H <0.3 mg/dL Aspartate Amino Transferase (AST) 131 H 13-40 U/L Alanine Aminotransferase (ALT) 1787 H 7-40 U/L Alkaline Phosphatase 259 H 46-116 U/L Total Protein 5.3 L 5.7-8.2 g/dL Albumin 2.7 L 3.2-4.8 g/dL Blood Gas Critical Value Read Back Yes Blood Gas Notified Whom veda Bautista md Blood Gas Notified Time [id number] Blood Gas Notified By luz marina Bertrand telephone coin box collector Test 11/17/24 03:15 11/15/24 12:11 11/15/24 04:00 11/14/24 09:27 Range/Units Prothrombin Time 19.5 H 9.3-11.8 sec Prothrombin Time INR 1.97 H 0.9-1.15 Activated Partial Thromboplast Time 35.1 H 24.5-34.5 SEC Ammonia 30 11-32 umol/L Urine Color Yellow Yellow Urine Clarity Turbid H Clear Urine pH 5.0 5.0-9.0 Urine Specific [place] 1.012 1.001-1.035 Urine Protein Trace H Negative Urine Ketones Negative Negative Urine Blood 2+ H Negative /uL Urine Nitrite Negative Negative Urine Bilirubin Negative Negative Urine Urobilinogen Normal Negative mg/dL Urine Leukocyte Esterase 1+ Negative /uL Urine RBC 3 0 - 4 /hpf Urine Microscopic WBC 14 H 0-5 /HPF Urine Squamous Epithelial Cells Few <5 /hpf Urine Calcium Oxalate Crystals Few None Seen Urine Amorphous Crystals Few None Seen /hpf Urine Bacteria Few H None Seen /hpf Urine Hyaline Casts Mod 0 - 2 /lpf Urine Mucus Few None Seen Urine Glucose Normal Normal mg/dL Influenza Type A Antigen Negative Negative Influenza Type B Antigen Negative Negative SARS-CoV-2 Antigen (Rapid) Negative NEGATIVE Test 11/14/24 05:59 11/14/24 04:27 11/14/24 03:39 11/14/24 02:20 Range/Units POC Glucose 98 70-106 mg/dl Blood Gas Comments Differential Total Cells Counted 100.0 100 Neutrophils % (Manual) 78 37.0-80.0 Band Neutrophils % (Manual) 4 Lymphocytes % (Manual) 14 10.0-50.0 Monocytes % (Manual) 4 0-12 Eosinophils % (Manual) 0 0-7 Basophils % (Manual) 0 0.0-2.0 Metamyelocytes % (manual) 0 Myelocytes % (Manual) 0 Promyelocytes % (Manual) 0 Blast Cells % (Manual) 0 Reactive Lymphocytes 0 Platelet Estimate Decreased Anisocytosis (manual) Slight Macrocytosis Slight B-Type Natriuretic Peptide 928.14 0-100 pg/mL Blood Gas Liter Flow 15.00 Blood Gas Spontaneous Rate 22 Test 11/13/24 02:30 11/11/24 05:43 11/09/24 04:52 11/01/24 04:00 Range/Units Stool for White Cells None seen Phosphorus Level 3.0 2.4-5.1 mg/dL Triglycerides Level 72 < 150 mg/dL Prealbumin 14.6 10.0-40.0 md/dL Test 10/30/24 14:56 10/30/24 10:34 10/24/24 03:43 10/21/24 13:10 Range/Units Anti-Nuclear Antibody Screen Positive H Negative Blood Gas Pressure Support 8 Ferritin 698.0 H 10-291 ng/mL Vancomycin Level Trough 17.1 H 5-10 ug/mL Test 10/19/24 14:52 10/17/24 02:45 10/16/24 02:40 10/15/24 03:09 Range/Units Lactic Acid Level 2.9 *H 0.4-2.0 mmol/L Polychromasia Slight Digoxin Level 0.98 0.8-2 ng/mL Tear Drop Cells Few Poikilocytosis (manual) Slight Test 10/11/24 03:23 10/09/24 22:25 10/07/24 22:13 10/07/24 14:09 Range/Units Hemoglobin A 97.5 96.4-98.8 % Hemoglobin A2 2.5 1.8-3.2 % Hemoglobin F () 0.0 0.0-2.0 % Hemoglobin S 0.0 0.0 % Hemoglobin Electrophoresis Interp Comment . Serum Immunoglobulin G 5499 012-6298 mg/dL Immunoglobulin A 210 87-352 mg/dL Immunoglobulin M 186 26-217 mg/dL Serum Immunofixation Comment . Free [place] Light Chains, Quant 49.1 H 3.3-19.4 mg/L Free [place]/Lambda Light Chain Ratio 1.54 0.26-1.65 Hepatitis A IgM Antibody Negative Hepatitis B Surface Antigen Negative Negative Hepatitis B Core IgM Antibody Negative Negative Hepatitis C Antibody Negative Negative Urine Creatinine 31.20 30.0-125.0 mg/dL Urine Protein/Creatinine Ratio 0.72 Urine Sodium 79 40-220 mmol/L Urine Total Protein 22.5 H 1-14 mg/dL Blood Gas Spontaneous Tidal Volume 488 Troponin I High Sensitivity 117 *H </=34 ng/L Test 10/07/24 10:56 10/07/24 06:17 Range/Units Cholesterol Level 66 < 200 mg/dL LDL Cholesterol 31 < 100 mg/dL HDL Cholesterol 21 L 40-59 mg/dL Urine Opiates Screen Neg NEGATIVE Urine Fentanyl Screen Neg NEGATIVE Urine Barbiturates Screen Neg NEGATIVE Urine Phencyclidine Screen Neg NEGATIVE Urine Amphetamines Screen Neg NEGATIVE Urine Benzodiazepines Screen Neg NEGATIVE Urine Cocaine Screen Neg NEGATIVE Urine Cannabinoids Screen Neg NEGATIVE Microbiology Date/Time Source Procedure Growth Status 11/16/24 04:50 Urine - [place] Urine Culture - Final Enterococcus faecium - VRE Complete 11/14/24 11:50 Sputum Endotracheal Wash Gram Stain - Final Complete 11/14/24 11:50 Sputum Endotracheal Wash Respiratory Culture - Final Complete 11/14/24 08:50 Blood Blood Culture - Final NO GROWTH AFTER 5 DAYS OF INCUBATION. Complete 11/14/24 04:30 Nose MRSA Screen - Final Complete Assessment [id number] AFEBRILE VSS VENTILATOR DEPENDENCE HIGH RISK FOR SURGERY CORRECT COAGULOPATHY CONSIDER TRACHEOSTOMY BASED ON ONGOING EVAL Plan discussed with: Other LIZA BOSS MD Nov 20, 2024 10:20
--- NOTE | 2024-11-20 10:25 | DVHPN2 ---
Progress Note Date Seen: Nov 20, 2024 Resident Creating Document: ETHAN SWAN RESIDENT Has the PT tested + for MRSA If YES, has PT been informed?: No Medical Necessity Reason Pt with a Central, PICC or Fol: No The following are medically ne: PICC Line, Cutler Catheter Reason for cutler catheter: Strict I&O Subjective Review of Systems Patient seen and examined at bedside Last BM 11/14/2024 KUB shows nonobstructive bowel gas pattern Liver function downtrending Objective vital signs Vital Sign Date Time Temp Pulse Resp B/P (MAP) Pulse Ox O2 Delivery O2 Flow Rate FiO2 11/20/24 09:59 55 16 101/51 (68) 99 30 11/20/24 08:00 Mechanical Ventilator+ 11/20/24 04:00 98.6 98.6 Total Intake and Output 11/19/24 11/19/24 11/20/24 15:00 23:00 07:00 Intake Total 730 ml 782.00 ml 1286.25 ml Output Total 1050 ml 750 ml Balance 730 ml -268.00 ml 536.25 ml medications Current Medications Medications Dose Ordered Sig/Liliam Route Start Time Stop Time Status Last Admin Dose Admin Amino Acids 0 ml @ 0 mls/hr PER PHARMACY IV 10/15/24 18:45 Cancel Dextrose 50 ml UD IV 10/16/24 09:30 Cancel Vancomycin HCl 0 ml @ 0 mls/hr UD IV 10/19/24 14:00 Cancel Metoprolol Tartrate 2.5 mg Q6HPRN PRN IV 10/31/24 09:15 Amino Acids 0 ml @ 0 mls/hr PER PHARMACY IV 11/04/24 22:00 Cancel Amino Acid Protein 30 ml DAILY PO 11/04/24 10:00 11/19/24 10:48 30 ML Pantoprazole Sodium 40 mg BID IV 11/09/24 22:00 11/19/24 22:15 40 MG Mexiletine HCl 150 mg TID GT 11/10/24 22:00 11/20/24 05:28 150 MG Fat Emulsion Intravenous 150 ml/Sodium Acetate 20 meq/Potassium Acetate 30 meq/ Potassium Phosphate 19.8 meq/Calcium Gluconate 2.3 meq/ Magnesium Sulfate 4 meq/ Multivitamins 10 ml/Chromium/ Copper/Manganese/ Zinc 1 ml/Amino Acids/Dextrose/ Purified Water 596.4450 ml @ 66 mls/hr [id number] IV 11/11/24 22:00 11/12/24 21:59 Cancel Apixaban 2.5 mg BID PO 11/13/24 22:00 11/19/24 22:17 2.5 MG Hydrocortisone Sodium Succinate 50 mg DAILY IV 11/14/24 10:00 11/19/24 10:46 50 MG Furosemide 40 mg BIDD IV 11/14/24 18:00 11/20/24 05:27 40 MG Phenylephrine HCl 250 ml @ 30 mls/hr Q8H20M IV 11/15/24 09:00 11/20/24 07:04 30 MLS/HR Propofol 100 ml @ 2.088 mls/ hr Q24H IV 11/15/24 11:30 Fentanyl Citrate 250 ml @ 2.5 mls/hr Q24H IV 11/15/24 11:45 11/19/24 23:02 2.5 MLS/HR Purified Water 150 ml Q6HR GT 11/15/24 18:00 11/20/24 05:28 150 ML Metronidazole 100 ml @ 100 mls/hr Q8HR IV 11/16/24 14:45 11/20/24 05:27 100 MLS/HR Acetaminophen 650 mg Q4HR PRN GT 11/17/24 08:30 Potassium Bicarbonate 50 meq BID PEG 11/18/24 22:00 11/19/24 22:20 50 MEQ Linezolid 300 ml @ 150 mls/hr Q12HR IV 11/19/24 10:00 11/19/24 22:20 150 MLS/HR Enteral Nutritional Formula 1,000 ml 55ML/HR GT 11/19/24 15:00 11/19/24 19:25 1,000 ML Metoclopramide HCl 5 mg Q8HR IV 11/19/24 22:00 11/20/24 10:04 5 MG Examination General Appearance: sedated, intubated Head Exam: Normal inspection. Constricted equal and reactive pupils Neck Exam: Normal inspection. Non-tender. Normal alignment Pulmonary/Respiratory: Chest non-tender. Trace crackles Abdominal Exam: Normal bowel sounds. Soft. Nontender Skin Exam: Normal inspection. Normal color. Warm. Dry laboratory and microbiology Laboratory Tests 11/20/24 03:15 Test 11/20/24 03:15 Range/Units Serum Glucose 106 74-106 mg/dL Microbiology Date/Time Source Procedure Growth Status 11/16/24 04:50 Urine - [place] Urine Culture - Final Enterococcus faecium - VRE Complete 11/14/24 11:50 Sputum Endotracheal Wash Gram Stain - Final Complete 11/14/24 11:50 Sputum Endotracheal Wash Respiratory Culture - Final Complete 11/14/24 08:50 Blood Blood Culture - Final NO GROWTH AFTER 5 DAYS OF INCUBATION. Complete 11/14/24 04:30 Nose MRSA Screen - Final Complete Labs and/or images reviewed: Labs reviewed by me, Image(s) reviewed by me Problem List/Assessment/Plan Problem List/Assessment/Plan Acute hepatocellular injury likely shock liver Hepatic cirrhosis? Coagulopathy due to above Ventricular fibrillation S/p cardiopulmonary arrest with shock Heart failure with reduced ejection fraction 15-20% Metabolic versus hypoxic encephalopathy Cholelithiasis without acute inflammation Nonalcoholic fatty liver disease with steatohepatitis Community-acquired pneumonia growing Enterobacter Aspiration pnemonia? sepsis Plan: Discontinued free water Repeat 12 lead EKG Consider CPAP trial continue antibiotic consider MRCP once stable Tapered hydrocortisone to q.12 hours on 11/06/2024 Tapered hydrocortisone to once daily on 11/13/2024 Discontinued hydrocortisone on 11/20/2024 s/p PEG tube placement monitor LFT's Keep PT/INR therapeutic Hemoglobin stable, transfuse if HB 7 or less Continue tube feedings at 20cc/hr Decreased metoclopramide to 5 mg IV b.i.d. JAIDEN positive, outpatient follow up with GI recommended for further workup Thank you so much for the opportunity to consult on your patient. GI team will follow the patient. In case of any questions or concerns please feel free to reach out. Plan discussed with Dr. Anglin Plan discussed with: Other (RN) My Orders My Orders Orders - ETHAN SWAN RESIDENT Procedure Category Date Status Time Kub Abdomen Single XY 11/20/24 Resulted View 04:00 Dietary Evaluation Review Comments: 1) TF Jevity 1.2Cal @ 55 ml/hr. x 24hr along with Pro-stat 1 pk daily. Start @ 20ml/hr, increase 10ml/hr Q4H until goal is reached. TF @ goal volume provides 1684 kcal (100% energy needs), 88 gm protein (100% protein needs), 1065 ml free water. 2) Water flush 100ml Q4H if allowed, adjust PRN 3) Advance to cardiac diet as medically feasible 4) Monitor NPO status, lab values, wt trend, I/O Expected Outcomes/Goals: To meet >75% estimated needs within 7 days Lab values to improve Fu 2-3 days ETHAN SWAN RESIDENT Nov 20, 2024 10:25
--- NOTE | 2024-11-20 10:28 | DVHPN2 ---
Progress Note - Dictate Date Seen: Nov 20, 2024 Has the PT tested + for MRSA If YES, has PT been informed?: No Medical Necessity Reason Pt with a Central, PICC or Fol: No The following are medically ne: PICC Line, Cutler Catheter Reason for cutler catheter: Strict I&O Subjective Ms. Smith is a 54 years old female who was brought to the [facility] on 10/07/2024 with a chief complaint of cardiopulmonary arrest/status post CPR. I have seen and examined the patient in the ICU, I have discussed with nurse. She is intubated, but is responsive to verbal stimuli, she does not move extremity for me RN: She moves the arms a little bit, more in the right hand She had PEG insert on 11/09/2024 Blood culture, 10/09/2024: No growth Blood culture, 10/19/2024: ABG, 11/04/2024 0220: Metabolic acidosis, 11/04/2024 0427: Metabolic acidosis UDS, 10/07/2024: Negative Urinalysis, 10/07/2024: Leukocyte esterase: Negative WBC/HB/PLT/MCV, 10/09/2024: 20/8.8/219/94.6, 10/10/2024: 21.2/8.7/232/92.2, 11/14/2024: 13.9/10.5/101/I04.1 PT/INR/PTT, 10/08/2024: 12.4/1.19/72.7, 10/09/2024: 13.1/1.26/68.9, 10/10/2024: 14.4/2/1.38/35.3 CMP, 10/08/2024: Unremarkable Troponin one high sensitivity, 10/07/2024: 141, 138, 117 TBI/AST/ALT/AP, 10/10/2024: 0.5/538/168/144, 10/11/2024: 0.6/293/199/152, 10/14/2024: 0.8/68/74/124 TG/HDL/LDL/HDL, 10/07/24: 71/66/31/21 EKG 10/10/2024: Atrial fibrillation EKG, 10/15/2024: Atrial fibrillation Echocardiogram, 10/07/2024: lvef 15-20% dilated LV severe global dysfunction mild RV dysfunction biatrial enlargement mild moderate MAC, moderate mitral regurg mild to moderate aortic regug RICHIE, 10/08/2024: 1. Left ventricle: Dilated LV was seen. LVEF was 25%. There was diffuse hypokinesis of left ventricle. 2. Right ventricle: RV was mildly dilated. 3. Left atrium: LA enlarged 4. Right atrium: RA was enlarged. 5. Mitral valve: Mitral was thickened with reduced opening. Moderate Mitral regurgitation was seen. Planinomentry of valve (TTE images also obtained) revealed MVA of 2.1 cm. Mean pressure gradient (obtained from limited TTE images) was 5. Images are consistent with previously implanted Ring in Mitral position. Consistent with up to Moderate Mitral stenosis. . There was no vegetation 6. Left atrial appendage: No evidence of thrombus. 7. Aortic valve: Trileaflet valve. No stenosis. Up to moderate Aortic Insufficiency was seen. There was no vegetation 8. Pulmonic valve: Trivial pulmonic insufficiency. No significant stenosis. 9. Tricuspid valve: Mild tricuspid regurgitation. There was no vegetation 10. Interatrial septum: Negative color flow for right to left shunt was observed. Bubble study was performed: negative for shunt 11. Pericardium: No significant effusion. 12. Thoracic aorta: No significant plaquing. Chest x-ray, 10/27/2024: 1. Cardiomegaly, stable diffuse increased prominence of the pulmonary vasculature and small bilateral pleural effusions. 2. Slight interval advancement of endotracheal tube as above. Remaining lines and tubes unchanged. CT head, 10/07/2024: No acute intracranial abnormality General: the patient is well developed and nourished. No acute distress. Intubated CT head, 10/07/2024: No acute intracranial abnormality. CT head, 10/11/2024: No acute intracranial abnormality CT head, 11/01/2024: As above, the other systems are negative CT head, 11/15/2024: 1. No acute intracranial abnormality. 2. No findings to suggest territorial ischemia. vital signs Vital Sign Date Time Temp Pulse Resp B/P (MAP) Pulse Ox O2 Delivery O2 Flow Rate FiO2 11/20/24 10:15 98.9 55 30 101/55 (70) 99 98.9 11/20/24 09:59 30 11/20/24 08:00 Mechanical Ventilator+ Total Intake and Output 11/19/24 11/19/24 11/20/24 15:00 23:00 07:00 Intake Total 730 ml 782.00 ml 1286.25 ml Output Total 1050 ml 750 ml Balance 730 ml -268.00 ml 536.25 ml medications Current Medications Medications Dose Ordered Sig/Liliam Route Start Time Stop Time Status Last Admin Dose Admin Amino Acids 0 ml @ 0 mls/hr PER PHARMACY IV 10/15/24 18:45 Cancel Dextrose 50 ml UD IV 10/16/24 09:30 Cancel Vancomycin HCl 0 ml @ 0 mls/hr UD IV 10/19/24 14:00 Cancel Metoprolol Tartrate 2.5 mg Q6HPRN PRN IV 10/31/24 09:15 Amino Acids 0 ml @ 0 mls/hr PER PHARMACY IV 11/04/24 22:00 Cancel Amino Acid Protein 30 ml DAILY PO 11/04/24 10:00 11/19/24 10:48 30 ML Pantoprazole Sodium 40 mg BID IV 11/09/24 22:00 11/19/24 22:15 40 MG Mexiletine HCl 150 mg TID GT 11/10/24 22:00 11/20/24 05:28 150 MG Fat Emulsion Intravenous 150 ml/Sodium Acetate 20 meq/Potassium Acetate 30 meq/ Potassium Phosphate 19.8 meq/Calcium Gluconate 2.3 meq/ Magnesium Sulfate 4 meq/ Multivitamins 10 ml/Chromium/ Copper/Manganese/ Zinc 1 ml/Amino Acids/Dextrose/ Purified Water 1,596.4462 ml @ 66 mls/hr [id number] IV 11/11/24 22:00 11/12/24 21:59 Cancel Apixaban 2.5 mg BID PO 11/13/24 22:00 11/19/24 22:17 2.5 MG Hydrocortisone Sodium Succinate 50 mg DAILY IV 11/14/24 10:00 11/19/24 10:46 50 MG Furosemide 40 mg BIDD IV 11/14/24 18:00 11/20/24 05:27 40 MG Phenylephrine HCl 250 ml @ 30 mls/hr Q8H20M IV 11/15/24 09:00 11/20/24 07:04 30 MLS/HR Propofol 100 ml @ 2.088 mls/ hr Q24H IV 11/15/24 11:30 Fentanyl Citrate 250 ml @ 2.5 mls/hr Q24H IV 11/15/24 11:45 11/19/24 23:02 2.5 MLS/HR Purified Water 150 ml Q6HR GT 11/15/24 18:00 11/20/24 05:28 150 ML Metronidazole 100 ml @ 100 mls/hr Q8HR IV 11/16/24 14:45 11/20/24 05:27 100 MLS/HR Acetaminophen 650 mg Q4HR PRN GT 11/17/24 08:30 Potassium Bicarbonate 50 meq BID PEG 11/18/24 22:00 11/19/24 22:20 50 MEQ Linezolid 300 ml @ 150 mls/hr Q12HR IV 11/19/24 10:00 11/19/24 22:20 150 MLS/HR Enteral Nutritional Formula 1,000 ml 55ML/HR GT 11/19/24 15:00 11/19/24 19:25 1,000 ML Metoclopramide HCl 5 mg Q8HR IV 11/19/24 22:00 11/20/24 10:04 5 MG objective The patient is well-nourished and well-developed with no distress. Intubated MENTAL STATUS: Subjective CRANIAL NERVES: Pupils are equal, round and reactive. This corneal reflex and doll's eye phenomena. No some facial weakness, she has gag reflexes. SENSATION: Okay to light touch and painful stimuli MOTOR: Normal tone in the upper and lower extremity. Normal muscle bulk. No fasciculations. Subjective REFLEXES: Deep tendon reflexes are symmetrical. No pathological reflexes. CEREBELLAR/COORDINATION: Deferred GAIT/STATION: deferred. laboratory and microbiology Laboratory Tests 11/20/24 03:15 Test 11/20/24 03:15 Range/Units Serum Glucose 106 74-106 mg/dL Problem List Cardiopulmonary arrest Status post CPR Reintubated on 11/14/2024 Metabolic encephalopathy Hypoxic encephalopathy Congestive heart failure Leukocytosis/sepsis/septic shock Respiratory failure Elevated liver function tests AFib S/P pacemaker insertion on 10/17/2024 ? Chronic organic brain syndrome ? Right arm weakness rule out stroke Assessment/Plan Monitoring Supportive treatment MR head ICU care Stabilize vitals/pressor drip Respiratory support/ vent management Oxygen DVT prophylaxis GI prophylaxis Cardiology on case Pulmonology on case Nephrology on case Need more history This medical document was created using an electronic medical record system with [employer] computerized dictation system. Although this document has been carefully reviewed, there may still be some phonetic and typographical errors. These areas are purely typographical due to imperfections of the software programs, and do not reflect any compromise in the patient's medical care. Dietary Evaluation Review Comments: 1) TF Jevity 1.2Cal @ 55 ml/hr. x 24hr along with Pro-stat 1 pk daily. Start @ 20ml/hr, increase 10ml/hr Q4H until goal is reached. TF @ goal volume provides 1684 kcal (100% energy needs), 88 gm protein (100% protein needs), 1065 ml free water. 2) Water flush 100ml Q4H if allowed, adjust PRN 3) Advance to cardiac diet as medically feasible 4) Monitor NPO status, lab values, wt trend, I/O Expected Outcomes/Goals: To meet >75% estimated needs within 7 days Lab values to improve Fu 2-3 days Plan discussed with: Other CAROLINE ROBB MD Nov 20, 2024 10:28
[2024-11-20] MEDS ORDERED: LORazepam 2MG/ML-1ML VIAL IV PRN (10:30)
--- NOTE | 2024-11-20 11:00 | DVHPN2 ---
Progress Note - Dictate Date Seen: Nov 20, 2024 Has the PT tested + for MRSA If YES, has PT been informed?: No Medical Necessity Reason Pt with a Central, PICC or Fol: No The following are medically ne: PICC Line, Cutler Catheter Reason for cutler catheter: Strict I&O vital signs Vital Sign Date Time Temp Pulse Resp B/P (MAP) Pulse Ox O2 Delivery O2 Flow Rate FiO2 11/20/24 10:15 98.9 55 30 101/55 (70) 99 98.9 11/20/24 09:59 30 11/20/24 08:00 Mechanical Ventilator+ Total Intake and Output 11/19/24 11/19/24 11/20/24 15:00 23:00 07:00 Intake Total 730 ml 782.00 ml 1318.75 ml Output Total 1050 ml 750 ml Balance 730 ml -268.00 ml 568.75 ml medications Current Medications Medications Dose Ordered Sig/Liliam Route Start Time Stop Time Status Last Admin Dose Admin Amino Acids 0 ml @ 0 mls/hr PER PHARMACY IV 10/15/24 18:45 Cancel Dextrose 50 ml UD IV 10/16/24 09:30 Cancel Vancomycin HCl 0 ml @ 0 mls/hr UD IV 10/19/24 14:00 Cancel Metoprolol Tartrate 2.5 mg Q6HPRN PRN IV 10/31/24 09:15 Amino Acids 0 ml @ 0 mls/hr PER PHARMACY IV 11/04/24 22:00 Cancel Amino Acid Protein 30 ml DAILY PO 11/04/24 10:00 11/20/24 10:46 30 ML Pantoprazole Sodium 40 mg BID IV 11/09/24 22:00 11/20/24 10:44 40 MG Mexiletine HCl 150 mg TID GT 11/10/24 22:00 11/20/24 05:28 150 MG Fat Emulsion Intravenous 150 ml/Sodium Acetate 20 meq/Potassium Acetate 30 meq/ Potassium Phosphate 19.8 meq/Calcium Gluconate 2.3 meq/ Magnesium Sulfate 4 meq/ Multivitamins 10 ml/Chromium/ Copper/Manganese/ Zinc 1 ml/Amino Acids/Dextrose/ Purified Water 1,596.4462 ml @ 66 mls/hr [id number] IV 11/11/24 22:00 11/12/24 21:59 Cancel Apixaban 2.5 mg BID PO 11/13/24 22:00 11/19/24 22:17 2.5 MG Hydrocortisone Sodium Succinate 50 mg DAILY IV 11/14/24 10:00 11/20/24 10:45 50 MG Furosemide 40 mg BIDD IV 11/14/24 18:00 11/20/24 05:27 40 MG Phenylephrine HCl 250 ml @ 30 mls/hr [id number] IV 11/15/24 09:00 11/20/24 07:04 30 MLS/HR Propofol 100 ml @ 2.088 mls/ hr Q24H IV 11/15/24 11:30 Fentanyl Citrate 250 ml @ 2.5 mls/hr Q24H IV 11/15/24 11:45 11/19/24 23:02 2.5 MLS/HR Purified Water 150 ml Q6HR GT 11/15/24 18:00 11/20/24 10:47 150 ML Metronidazole 100 ml @ 100 mls/hr Q8HR IV 11/16/24 14:45 11/20/24 05:27 100 MLS/HR Acetaminophen 650 mg Q4HR PRN GT 11/17/24 08:30 Potassium Bicarbonate 50 meq BID PEG 11/18/24 22:00 11/20/24 10:45 50 MEQ Linezolid 300 ml @ 150 mls/hr Q12HR IV 11/19/24 10:00 11/20/24 10:45 150 MLS/HR Enteral Nutritional Formula 1,000 ml 55ML/HR GT 11/19/24 15:00 11/19/24 19:25 1,000 ML Metoclopramide HCl 5 mg Q8HR IV 11/19/24 22:00 11/20/24 10:04 5 MG Lorazepam 1 mg ONCE PRN IV 11/20/24 10:30 laboratory and microbiology Laboratory Tests 11/20/24 03:15 Test 11/20/24 03:15 Range/Units Serum Glucose 106 74-106 mg/dL Assessment/Plan Still in ICU, intubated and on pressure support. No Arrhythmia identified during this episodes. They are looking into possibility of Tracheostomy (maybe to be performed in [place]?) Patient is a 54-year-old female who was brought to the hospital for witnessed syncope. She is intubated and is being managed in ICU. Information was obtained by reviewing the chart and communicating with patient's son (over the phone). Family recognized witnessed syncope and started CPR and called EMS. Reportedly, EMS found the patient in ventricular fibrillation and shocked the patient and brought the patient to the hospital. Patient was intubated in emergency room and transferred to ICU. Patient was on amiodarone drip. Later the patient had ventricular tachycardia (Systane). High sensitive troponin had been minimally/flatly elevated. Presentation was not in favor of acute coronary syndrome. Cardiology is involved for cardiac aspects of care. Intubated. On Vent. No JVD. Mucosa pale. No carotid bruit. Scattered rhonchi in the lungs is heard. Cardiac: Regular, no thrill. Systolic murmur 2/6 in apex is heard. Abdomen is soft. 3+ edema in extremities. Past medical history as per son: Congenital heart disease, status post bypass WBC: 14.5 - 11.9 - 18.8 - 20.0 - 21.2 - 14.3 - 10.3 - 8.9 - 9.2 - 11.1 - 12.1 - 10.8 - 12.0 - 9.9 - 15.4 - 14.8 - 12.1 - 10.5 - 5.8 - 5.3 - 4.2 - 5.8 - 4.1 - 7.0 - 9.3 - 8.3 - 11.5 - 8.4 - 8.4 - 5.4 - 5.7 - 8.4 - 7.4 - 6.2 - 6.7 - 13.9 - 11.7 - 10.1 - 8.8 - 10.7 - 13.9 - 10.6 Hemoglobin: 10.1 - 9.6 - 9.2 - 8.8 - 8.7 - 8.0 - 8.3 - 8.5 - 7.8 - 10.2 - 10.7 - 9.9 - 9.7 - 9.3 - 9.3 - 8.6 - 8.1 - 7.4 - 7.5 - 7.4 - 7.5 - 7.2 - 7.7 - 7.0 - (post PRBC transfusion) 10.4 - 10 - 9.5 - 10.0 - 9.2 - 9.8 -9.6 - 9.7 - 10.2 - 10.6 - 9.7 - 9.7 - 10.5 - 10.0 - 11.4 - 10.8 - 12.4 - 12.7 - 13.3 Creatinine: 0.95 - 0.93 - 0.87 - 0.83 - 0.83 - 0.76 - 0.68 - 0.72 - 0.79 - 0.76 - 0.80 - 0.84 - 0.61 - 0.65 - 0.74 - 0.64 - 0.73 - 0.82 - 0.88 - 1.03 - 0.99 - 0.85 - 0.87 - 0.79 - 1.12 - 1.15 - 1.04 - 0.96 - 0.94 - 0.93 - 0.78 - 0.71 - 0.68 - 0.61 - 0.59 - 0.49 - 0.39 - 0.54 - 0.48 - 0.76 - 0.93 - 0.78 - 0 0.78 - 0.68 - 0.70 - 0.56 -0.64 - 0.63 Potassium: 3.4 - 4.0 - 4.6 - 3.5 - 3.3 - 4.1 - 3.7 - 3.2 - 3.7 - 4.0 - 3.2 - 3.4 - 3.9 - 4.2 - 3.3 - 3.8 - 3.6 - 3.4 - 4.2 - 3.8 - 4.5 - 4.1 - 3.5 - 4.2 - 3.3 - 2.6 - 3.5 - 3.8 - 2.4 - 2.9 - 4.6 - 2.8 - 4.8 - 4.9 - 3.4 - 3.1 - 3.7 - 4.4 - 3.7 - 3.7 - 3.1 - 3.0 - 3.8 - 4.4 - 3.8 - 4.1 - 4.3 - 3.9 - 4.4 - 6.1 - 4.6 - 3.0 - 3.6 - 3.1 - 2.1 - 4.6 - 2.5 - 3.1 - 4.4 - 4.9 Magnesium: 2.0 - 1.6 - 2.0 - 3.0 - 1.5 - 1.9 - 2.1 - 1.8 - 2.0 - 1.9 - 1.9 - 2.6 - 2.0 - 1.8 - 1.6 - 2.0 - 2.2 - 1.9 - 2.3 - 2.2 - 2.2 - 2.1 - 2.1 - 1.9 2.7 - 2.6 - 2.3 - 2.4 - 2.5 - 2.3 - 2.5 - 2.3 - 2.3 - 2.4 - 2.1 - 1.9 - 2.2 - 2.1 - 2.0 - 2.4 - 2.2 - 2.0 - 2.0 - 1.6 - 2.0 - 2.0 - 2.0 Troponin (high sensitive): 141 - 138 - 117 BNP: 457.16 - 1073.91 - 928.14 AST/ALT: 32/11 - 19/13 - 538/168 - 293/152 - 131/130 - 78/94 - 68/74 - 48/57 - 27/38 - 15/23 - 20/18 - 23/17 - 29/16 - 27/13 - 34/17 - 73/49 - 41/43 - 30/47 - 30/42 - 29/42 - 17/27 - 160/87 - 900/478 - 986/571 - 382/436 - 110/244 - 42/170 - 22/113 - 16/77 - 15/59 - 19/50 - 20/41 - 16/32 - 17/30 - 14/25 - 25/38 - - /2337 - >6000/>6000 - 4665/>6000 - 2123/>6000 - 604/4207 - 203/2809 - 131/1787 Digoxin level: 2.83 - 1.25 - 0.98 UDS: non-revealing Chest x-ray revealed: Lines and Tubes: Endotracheal tube tip projects approximately 1.4 cm above the level of the tyler. Enteric catheter courses below the lateral of the diaphragm and terminates beyond the inferior margin of the image. Right internal jugular central venous catheter terminates within the distal superior vena cava. Lungs: Moderate diffuse increased prominence of the pulmonary vasculature without evidence of focal consolidation. Pleura: No effusion. No pneumothorax. Cardiomediastinal contours: Cardiomegaly. Bones: Unremarkable IMPRESSION: 1. Cardiomegaly and diffuse increased prominence of the pulmonary vasculature. 2. Lines and tubes as above. Repeat chest x-ray revealed: IMPRESSION: 1. Endotracheal tube tip 1.6 cm above the tyler; consider 2 cm retraction 2. Mild pulmonary vascular congestion. Moderate cardiomegaly. Repeat chest xry revealed: IMPRESSION: Endotracheal tube tip 1.6 cm above the tyler; consider 2 cm retraction Mild pulmonary vascular congestion. Moderate cardiomegaly. Repeat chest xry revealed: IMPRESSION: 1. Stable cardiomegaly, small left pleural effusion and mild diffuse increased prominence of the pulmonary vasculature. 2. Repositioned endotracheal tube as above. Remaining lines and tubes unchanged. Repeat chest xry revealed: IMPRESSION: 1. Cardiomegaly, stable diffuse increased prominence of the pulmonary vasculature and small bilateral pleural effusions. 2. Slight interval advancement of endotracheal tube as above. Remaining lines and tubes unchanged. Repeat chest xry revealed: IMPRESSION: 1. Slight interval decrease in diffuse increased prominence of the pulmonary vasculature. 2. Stable cardiomegaly and small left pleural effusion. 3. Lines and tubes unchanged. Repeat chest xry revealed: IMPRESSION: 1. Cardiomegaly and small left pleural effusion. 2. Lines and tubes unchanged. Repeat chest xry revealed: IMPRESSION: Stable lines and tubes. Similar lung aeration. Repeat chest xry revealed: IMPRESSION: Cardiomegaly and small left pleural effusion. Lines and tubes unchanged. Repeat chest xry revealed: IMPRESSION: Placement of a cardiac pacer, no pneumothorax is seen. Stable lines and tubes. Repeat chest xry revealed: IMPRESSION: 1. Worsening mixed opacities in the right lower lung. No other significant change from the previous study. Stable support devices. Repeat chest xry revealed: Heart is prominent in size with postsurgical changes, median sternotomy wires, and a single lead left cardiac defibrillator. Support lines and tubes appear unchanged in satisfactory in position. No sizable effusion or pneumothorax. Mild pulmonary vascular congestion. No significant interval change. Repeat chest xry revealed: IMPRESSION: 1. No significant change from the previous study. Stable support devices. Similar findings of heart failure including left pleural effusion. Repeat chest xry revealed: IMPRESSION: 1. No significant change from the previous study. Stable support devices. Similar findings of heart failure including trace left pleural effusion. Repeat chest xry revealed: Lines and Tubes: Unchanged. Left anterior chest wall cardiac pacing device. Lungs: Clear Pleura: No effusion. No pneumothorax. Cardiomediastinal contours: Cardiomegaly. Bones: Unremarkable IMPRESSION: 1. Cardiomegaly. 2. Lines and tubes unchanged. Repeat chest xry revealed: IMPRESSION: Lines and tubes in satisfactory position. No significant interval change. Repeat chest xry revealed: Lines and Tubes: ET tube and NG tube removed. Lungs: Congestion Pleura: No effusion. No pneumothorax. Cardiomediastinal contours: Cardiomegaly Bones: Unremarkable IMPRESSION: 1. Cardiomegaly with CHF. Repeat chest xry revealed: IMPRESSION: 1. Cardiomegaly. 2. Patchy bilateral airspace disease. Repeat chest xry revealed: FINDINGS: Lines and Tubes: None. Left anterior chest wall cardiac pacing device. Lungs: Extensive multifocal bilateral pulmonary airspace disease in a predominantly perihilar and bibasilar distribution with consolidative features. Pleura: No effusion. No pneumothorax. Cardiomediastinal contours: Poorly evaluated secondary to extensive bilateral infiltrate. Bones: Unremarkable IMPRESSION: 1. Extensive multifocal bilateral pulmonary airspace disease in a predominantly perihilar and bibasilar distribution with consolidative features. Repeat chest xry revealed: IMPRESSION: 1. Status post interval intubation. Endotracheal tube tip projects approximately 2.4 cm above the level of the tyler. 2. Grossly stable appearing moderate patchy multifocal bilateral pulmonary airspace disease with consolidative features. 3. Cardiomegaly. Repeat chest xry revealed: IMPRESSION: No significant interval change. Repeat chest xry revealed: IMPRESSION: No significant interval change Repeat chest xry revealed: IMPRESSION: 1. Interval retraction of the endotracheal tube such that the tip now projects approximately 4.5 cm above the level of the tyler. 2. Cardiomegaly. Repeat chest xry revealed: IMPRESSION: 1. Mild interval advancement of the endotracheal tube such that the tip now projects approximately 3.3 cm above the level of the tyler. 2. No evidence of acute cardiopulmonary process. Repeat chest xry revealed: IMPRESSION: Lines and tubes in satisfactory position. No significant interval change. Repeat chest xry revealed: IMPRESSION: 1. Interval advancement of endotracheal tube such that the tip now projects approximately 3.7 cm above the level of the tyler. Remaining lines and tubes unchanged. 2. Cardiomegaly. Gall Bladder Ultrasound revealed: IMPRESSION: Gallstones are noted. Hepatic steatosis Trace ascites Trace bilateral pleural effusions. Hepatic cirrhosis. Liver Ultrasound revealed: Hepatic steatosis. Trace right pleural effusion. Trace ascites Gallstones Bladder ultrasound revealed: IMPRESSION: 1. Cutler catheter in the bladder in the bladder is decompressed. Repeat Bladder Ultrasound revealed: Urinary bladder is unremarkable with prevoid volume of 29 mL. Urinary bladder wall measures 1.5 mm. Cutler catheter is noted. KUB revealed: IMPRESSION: Nonobstructive bowel gas pattern. Nasogastric tube tip in the stomach. Large stool burden. Repeat KUB revealed: Right lower extremity PICC line with tip projecting over the expected region of the intrahepatic IVC. Nasogastric tube projecting towards the distal stomach. Nonspecific bowel gas pattern. Cardiomegaly and left basilar airspace opacities, incompletely characterized. Atherosclerotic calcification disease. Repeat KUB revealed: IMPRESSION: 1. Nonspecific nonobstructive bowel gas pattern. 2. Gastrostomy tube projects over the midportion of the left hemiabdomen. 3. Right femoral approach central venous catheter as described above. Repeat KUB revealed: IMPRESSION: Nonobstructive bowel gas pattern. Right central venous catheter tip in the IVC Cutler catheter overlying the bladder. Left upper ext arterial duplex: IMPRESSION: No hemodynamically significant stenosis based on peak systolic velocity criteria. Left lower ext arterial duplex: IMPRESSION: There is no evidence for peripheral vascular insufficiency in the left lower extremity. No significant focal stenosis is identified. Liver Ultrasound revealed: Hepatic steatosis. Hepatomegaly. Cholelithiasis. CT of the head revealed: IMPRESSION: No acute intracranial abnormality. Repeat CT of head revealed: IMPRESSION: No acute intracranial abnormality. Repeat CT of Head revealed: IMPRESSION: No acute intracranial abnormality. Repeat CT of head revealed: IMPRESSION: 1. No acute intracranial abnormality. 2. No findings to suggest territorial ischemia. Echocardiogram reported: lvef 15-20% dilated LV severe global dysfunction mild RV dysfunction biatrial enlargement mild moderate MAC, moderate mitral regurg mild to moderate aortic regug (images of echo reviewed and questioned presence of mitral ring and also some component (moderate of Mitral stenosis) EKG revealed sinus rhythm Telemetry revealed occasions of atrial fibrillation. There was occasional sustained ventricular tachycardia. EMS tele monitor revealed ventricular fibrillation for which the patient was shocked. Has remained sinus rhythm. Later with A-fib with MVR LHC revealed: Patent RICHMOND to LAD; Patent SVG to obtuse marginal; LVEF of 20% with increased EDP; Proximal disease in LAD/LCX RICHIE was performed: Consistent with severely reduced LVEF. Consistent with previously implanted Mitral ring, Up to moderate Mitral stenosis/Mitral Regurgitation and also Moderate Aortic insufficiency. Patient is a 54-year-old female who presented with witnessed syncope. She was found to have ventricular fibrillation for which was shocked. Later had repeated episode of sustained ventricular tachycardia. Patient has been kept in ICU. Does have baseline history of coronary artery disease for which has had bypass surgery. Left heart catheterization was performed which revealed patent RICHMOND and patent SVG. ACS is not considered at this point. It is of note that the patient's echocardiogram reveals significantly use systolic function. Valvular heart disease is considered. Findings are in favor of previously implanted mitral ring. By reviewing the echo images, component of up to moderate mitral stenosis could not be ruled out. LHC was performed that ruled out any active specific ischemia as an etiology for presentation. Is off Amiodarone for abnormal LFT. Being followed by Nephrology / Pulmonary / Neurology / GI ID. Tele has remained sinus rhythm. Had episode of a-fib with RVR. Was loaded with Digoxin. Dig level was performed at wrong timing (only 5 hours after the last Dig given). Dig toxicity is not considered. Patient is back to normal sinus rhythm. Has good kidney function. Repeat Dig level is acceptable level. s/p ICD implantation by EP. Intubated, later extubated. s/p PEG. Later had respiratory failure and was taken back to ICU. Imaging question pneumonia (can it be aspiration?). Eventhough repeat BNP has not increased (decreased somehow), patient does have peripheral edema and component of acute on chronic Systolic heart failure could also contribute to respiratory failure. The site of ICD implantation was reviewed by EP (Dr Armstrong on 05/13/2024): healing well (personal communication). Had repeat respiratory failure, back in ICU and intubated. Abnormal LFT. Found to have gall stone and Liver cirrhosis Syncope V-fib s/p shock Sustained V-tach Paroxysmal A-fib VHD, s/p Mitral ring Systolic heart failure Abnormal LFT, at a point resolved, later appeared again s/p ICD (Biotronik) implantation by EP (Dr Armstrong) s/p PRBC transfusion for significant anemia Hepatic Steatosis Gallstones Failed Swallowing s/p PEG Acute respiratory failure Acute on chronic systolic heart failure Gallstone Liver cirrhosis Cardiac suggestion for management: Manage in ICU IV diuresis Follow up electrolytes and kidney function test and correct abnormalities Full anticoagulation (a-fib with high CHADS-Vasc score). s/p ICD implantation. On Eliquis On Mexiletine On Levo-Phed: keep MAP above 65 (for now off pressure support and tolerating) Was on Metoprolol to decrease risk of Vtach (as patient has ICD with bradycardia protection: may continue metoprolol in case of bradycardia, but hold: if hypotensive). For now will stop/hold Metoprolol May consider/add Esmolol for PVC/Vtach (if needed) s/p ICD (Biotronik) implantation by EP Eliquis: 2.5 mg BID s/p PEG Pulmonary Follow up GI follow up Management of repeat respiratory failure, pneumonia as per primary team/pulmonary Provide previous medical records from reaching out to previous hospitals in [facility]... Further evaluation and management depends on the above and clinical course. A total of 75 minutes was spent reviewing the patient record, examining the patient, making a diagnostic and therapeutic plan, discussing this plan with medical personnel, following up on diagnostic studies and following the patient for clinical stability excluding any and all procedures. At least 50% of this time was spent in direct, [id number] contact. Thank you for allowing me to participate in this patient's care. Further recommendations will depend on patient's clinical course. Please do not hesitate to contact me if you have any questions or concerns. This medical document was created using electronic medical record system with [employer] computerized dictation system. Although this document has been carefully reviewed, there may still be some phonetic and typographical errors. These areas are purely typographical due to the imperfection of the software programs, and do not reflect any compromise in the patient's medical care. Dietary Evaluation Review Comments: 1) TF Jevity 1.2Cal @ 55 ml/hr. x 24hr along with Pro-stat 1 pk daily. Start @ 20ml/hr, increase 10ml/hr Q4H until goal is reached. TF @ goal volume provides 1684 kcal (100% energy needs), 88 gm protein (100% protein needs), 1065 ml free water. 2) Water flush 100ml Q4H if allowed, adjust PRN 3) Advance to cardiac diet as medically feasible 4) Monitor NPO status, lab values, wt trend, I/O Expected Outcomes/Goals: To meet >75% estimated needs within 7 days Lab values to improve Fu 2-3 days Plan discussed with: Other (nurse) CORDELL VERA MD Nov 20, 2024 10:59
--- NOTE | 2024-11-20 11:04 | DVHINCON2 ---
DATE OF CONSULTATION: 11/20/2024 RECONSULTATION FOR A TRACHEOSTOMY PLACEMENT HISTORY OF PRESENT ILLNESS: She is 54 years old, unable to give history. Most of the information obtained from the chart. She has a history of paroxysmal atrial fibrillation and multiple cardiac events, ventricular tachycardia, congenital heart disease, and then she has also had some sepsis ongoing. She was discharged from [facility] in [place] and she has been intubated and extubated and then reintubated and I was asked to see her in regards to doing a tracheostomy as her FiO2 is down to 30% and the PEEP is 5. She also had a recent PEG tube placement without any complications. PHYSICAL EXAMINATION: VITAL SIGNS: Afebrile, stable signs. HEENT: With no evidence of pallor, cyanosis, or jaundice. NECK: Supple and nontender with no thyromegaly or lymphadenopathy. CHEST AND LUNGS: Clear. HEART: Within normal limits. ABDOMEN: Soft. NEUROLOGIC: Not assessed. EXTREMITIES: Reveals dehydration and malnutrition. She has a PEG tube in place. CLINICAL IMPRESSION: Ventilator dependence. PLAN: Would be to do consider tracheostomy. She is high risk for surgery because of her cardiac situation and also she is on anticoagulation. She is on Eliquis that has to be stopped and also her PT and PTT have to be rechecked and then based upon that and ongoing evaluation, tracheostomy can be considered electively. MD MIRANDA Rust/MANUEL TID: [id number] RECEIPT: [id number] cc: Gissel Gomez
--- NOTE | 2024-11-20 13:17 | DVHPN2 ---
Progress Note - Dictate Date Seen: Nov 20, 2024 Has the PT tested + for MRSA If YES, has PT been informed?: No Medical Necessity Reason Pt with a Central, PICC or Fol: No The following are medically ne: PICC Line, Cutler Catheter Reason for cutler catheter: Strict I&O vital signs Vital Sign Date Time Temp Pulse Resp B/P (MAP) Pulse Ox O2 Delivery O2 Flow Rate FiO2 11/20/24 13:00 98.8 59 19 110/53 (72) 100 98.8 11/20/24 12:31 30 11/20/24 12:00 Mechanical Ventilator+ Total Intake and Output 11/19/24 11/19/24 11/20/24 15:00 23:00 07:00 Intake Total 730 ml 782.00 ml 1318.75 ml Output Total 1050 ml 750 ml Balance 730 ml -268.00 ml 568.75 ml medications Current Medications Medications Dose Ordered Sig/Liliam Route Start Time Stop Time Status Last Admin Dose Admin Amino Acids 0 ml @ 0 mls/hr PER PHARMACY IV 10/15/24 18:45 Cancel Dextrose 50 ml UD IV 10/16/24 09:30 Cancel Vancomycin HCl 0 ml @ 0 mls/hr UD IV 10/19/24 14:00 Cancel Metoprolol Tartrate 2.5 mg Q6HPRN PRN IV 10/31/24 09:15 Amino Acids 0 ml @ 0 mls/hr PER PHARMACY IV 11/04/24 22:00 Cancel Amino Acid Protein 30 ml DAILY PO 11/04/24 10:00 11/20/24 10:46 30 ML Pantoprazole Sodium 40 mg BID IV 11/09/24 22:00 11/20/24 10:44 40 MG Mexiletine HCl 150 mg TID GT 11/10/24 22:00 11/20/24 05:28 150 MG Fat Emulsion Intravenous 150 ml/Sodium Acetate 20 meq/Potassium Acetate 30 meq/ Potassium Phosphate 19.8 meq/Calcium Gluconate 2.3 meq/ Magnesium Sulfate 4 meq/ Multivitamins 10 ml/Chromium/ Copper/Manganese/ Zinc 1 ml/Amino Acids/Dextrose/ Purified Water 1,596.4462 ml @ 66 mls/hr [id number] IV 11/11/24 22:00 11/12/24 21:59 Cancel Apixaban 2.5 mg BID PO 11/13/24 22:00 11/19/24 22:17 2.5 MG Hydrocortisone Sodium Succinate 50 mg DAILY IV 11/14/24 10:00 11/20/24 10:45 50 MG Furosemide 40 mg BIDD IV 11/14/24 18:00 11/20/24 05:27 40 MG Phenylephrine HCl 250 ml @ 30 mls/hr Q8H20M IV 11/15/24 09:00 11/20/24 07:04 30 MLS/HR Propofol 100 ml @ 2.088 mls/ hr Q24H IV 11/15/24 11:30 Fentanyl Citrate 250 ml @ 2.5 mls/hr Q24H IV 11/15/24 11:45 11/19/24 23:02 2.5 MLS/HR Purified Water 150 ml Q6HR GT 11/15/24 18:00 11/20/24 10:47 150 ML Metronidazole 100 ml @ 100 mls/hr Q8HR IV 11/16/24 14:45 11/20/24 05:27 100 MLS/HR Acetaminophen 650 mg Q4HR PRN GT 11/17/24 08:30 Potassium Bicarbonate 50 meq BID PEG 11/18/24 22:00 11/20/24 10:45 50 MEQ Linezolid 300 ml @ 150 mls/hr Q12HR IV 11/19/24 10:00 11/20/24 10:45 150 MLS/HR Enteral Nutritional Formula 1,000 ml 55ML/HR GT 11/19/24 15:00 11/19/24 19:25 1,000 ML Metoclopramide HCl 5 mg Q8HR IV 11/19/24 22:00 11/20/24 10:04 5 MG Lorazepam 1 mg ONCE PRN IV 11/20/24 10:30 objective HEENT: EOMI, PERRLA, normal external inspect of ears, no icterus, no nasal drainage Neck: no carotid bruit, no jugular venous distention (JVD), no lymphadenopathy Chest: normal thorax Respiratory: Intubated, clear to auscultation, normal air movement Cardiovascular: regular rate and rhythm, no diastolic murmur, no jugular venous distention (JVD), no rub, no systolic murmur Abdominal: soft, no hepatomegaly, no mass, no splenomegaly, no tenderness Genitourinary: grossly normal external Musculoskeletal: no joint tenderness, no swelling Extremities: normal pulses, no calf tenderness, no clubbing, no cyanosis, no edema Skin: no bruising, no jaundice, no rash Neurological: No focal deficit laboratory and microbiology Laboratory Tests 11/20/24 03:15 Test 11/20/24 03:15 Range/Units Serum Glucose 106 74-106 mg/dL Problem List Cardiac Arrest with Ventricular Fibrillation Assessment: Patient experienced cardiac arrest with ventricular fibrillation on 10/07/24, witnessed by family members who initiated CPR. EMS found the patient in ventricular fibrillation and administered shock therapy. Rhythm strip analysis confirmed ventricular fibrillation. Patient required intubation and sedation upon ED arrival. Currently admitted to ICU for close observation. Cardiology has been consulted and plans for AICD placement, likely on Tuesday. Infectious disease clearance has been obtained for the AICD procedure, addressing initial concerns of leukocytosis which is now improving. Status post-cardiac arrest. Plan: - Continue ICU monitoring - Proceed with AICD placement as planned (likely Tuesday), cleared by infectious disease. - Maintain intubation and sedation until AICD placement - Continue Heparin drip for paroxysmal atrial fibrillation - Continue Mexitil - DC amiodarone due to transaminitis - added esmolol drip per Cardiology for AFib and added push doses of digoxin Coronary Artery Disease Assessment: Patient with history of 2-vessel CABG (Coronary Artery Bypass Grafting). Surgical intervention previously performed to address significant coronary artery stenosis. Plan: - Continue medical management - Follow up with cardiology for ongoing coronary artery disease management Acute and Chronic Systolic Heart Failure Assessment: Patient has acute and chronic systolic heart failure with severely reduced left ventricular function. Ejection fraction is estimated at 15-20%. RICHIE findings are consistent with severely reduced left ventricular ejection fraction, previously implanted mitral ring, up to moderate mitral stenosis and regurgitation, and moderate aortic insufficiency. Plan: - Continue cardiology consultation - continue IV diuretics (IV Lasix) - Monitor renal function Acute Hypoxic Respiratory Failure Assessment: Patient is currently intubated due to acute hypoxic respiratory failure. Dr. Downey from pulmonology is managing this aspect of care. Plan: - Maintain current intubation as per pulmonology recommendation - Proceed with CPAP trials when deemed appropriate by pulmonology Transaminitis Assessment: Patient has elevated liver function tests, likely secondary to amiodarone use. Cardiology has discontinued amiodarone in response. Plan: - Monitor liver function tests - Amiodarone discontinued as per cardiology Enterobacter PNA Assessment: Sputum culture positive for Enterobacter. Plan: - Continue treatment with Eratapenem to complete 10 days regimen -Infectious disease consult Hemodynamic Support Assessment: Patient requires vasopressor support for hemodynamic stability. Plan: - Continue vasopressin - Continue neosynephrine Paroxysmal a fib -DC amiodarone -continue with heparin gtt Shock liver GI consult, trend liver enzymes, hepatitis panel was negative. Ultrasound of the liver had no acute findings. Assessment/Plan Subjective: Patient is currently sedated on the ventilator. Objective: Patient is sedated and ventilated. Surgical consult has been made for tracheostomy. Patient was admitted status post cardiac arrest status post sepsis with pneumonia. Patient had cardiac arrest with ventricular fibrillation. Patient status post AICD placement. Plan: Continue current measures. Monitor on EKG. Ventilator management per pulmonary. Plan for discharge to LTAC facility once bed is available. Plan for tracheostomy by surgical team. Dietary Evaluation Review Comments: 1) TF Jevity 1.2Cal @ 55 ml/hr. x 24hr along with Pro-stat 1 pk daily. Start @ 20ml/hr, increase 10ml/hr Q4H until goal is reached. TF @ goal volume provides 1684 kcal (100% energy needs), 88 gm protein (100% protein needs), 1065 ml free water. 2) Water flush 100ml Q4H if allowed, adjust PRN 3) Advance to cardiac diet as medically feasible 4) Monitor NPO status, lab values, wt trend, I/O Expected Outcomes/Goals: To meet >75% estimated needs within 7 days Lab values to improve Fu 2-3 days Plan discussed with: Patient, Other BRODIE GARVIN TAX STAFF ACCOUNTANT Nov 20, 2024 13:17
[2024-11-20] MEDS: FUROSEMIDE 20 MG/2 ML VIAL IV ONE (14:08)
[2024-11-20 14:41] LABS: INR 1.42 (0.9-1.15); Partial Thromboplastin Time 28.8 SEC (24.5-34.5); Prothrombin Time 14.5 sec (9.3-11.8)
--- NOTE | 2024-11-20 19:11 | DVHPNRES ---
Progress Note Date Seen: Nov 20, 2024 Resident Creating Document: JOAN QUEEN RESIDENT Has the PT tested + for MRSA If YES, has PT been informed?: No Medical Necessity Reason Pt with a Central, PICC or Fol: No The following are medically ne: PICC Line, Cutler Catheter Reason for cutler catheter: Strict I&O Subjective Review of Systems Ms. Smith, a 54-year-old female with a history of paroxysmal atrial fibrillation, ventricular tachycardia, congenital heart disease, and multiple episodes of cardiac arrest was consulted for sepsis following a witnessed syncopal event. She had recently been discharged from in [place] with prescriptions for amiodarone, Lipitor, and Lasix, which she did not take. After traveling, she experienced another cardiac arrest requiring code blue intervention. EMS found her in ventricular fibrillation, successfully resuscitated her, and transported her to the hospital where she was intubated and admitted to the ICU. She underwent a left heart catheterization and transesophageal echocardiogram. Despite being on an amiodarone drip, she later developed ventricular tachycardia. Troponin levels were minimally elevated, and her presentation was not consistent with acute coronary syndrome. Cardiology is actively involved in her care. Microbiology: Blood culture, 10/09/2024: No growth Blood culture, 10/19/2024: UDS, 10/07/2024: Negative Urinalysis, 10/07/2024: Leukocyte esterase: Negative Echocardiogram, 10/07/2024: lvef 15-20% dilated LV severe global dysfunction mild RV dysfunction biatrial enlargement mild moderate MAC, moderate mitral regurg mild to moderate aortic regug RICHIE, 10/08/2024: 1. Left ventricle: Dilated LV was seen. LVEF was 25%. There was diffuse hypokinesis of left ventricle. 2. Right ventricle: RV was mildly dilated. 3. Left atrium: LA enlarged 4. Right atrium: RA was enlarged. 5. Mitral valve: Mitral was thickened with reduced opening. Moderate Mitral regurgitation was seen. Planinomentry of valve (TTE images also obtained) revealed MVA of 2.1 cm. Mean pressure gradient (obtained from limited TTE images) was 5. Images are consistent with previously implanted Ring in Mitral position. Consistent with up to Moderate Mitral stenosis. . There was no vegetation 6. Left atrial appendage: No evidence of thrombus. 7. Aortic valve: Trileaflet valve. No stenosis. Up to moderate Aortic Insufficiency was seen. There was no vegetation 8. Pulmonic valve: Trivial pulmonic insufficiency. No significant stenosis. 9. Tricuspid valve: Mild tricuspid regurgitation. There was no vegetation 10. Interatrial septum: Negative color flow for right to left shunt was observed. Bubble study was performed: negative for shunt 11. Pericardium: No significant effusion. 12. Thoracic aorta: No significant plaquing. Past Medical History paroxysmal atrial fibrillation, ventricular tachycardia, congenital heart disease, and multiple episodes of cardiac arrest Past Surgical History Left heart catheterization today and Transesophageal echocardiogram today Objective vital signs Vital Sign Date Time Temp Pulse Resp B/P (MAP) Pulse Ox O2 Delivery O2 Flow Rate FiO2 11/20/24 18:30 100 Mechanical Ventilator+ 30 30 11/20/24 18:30 56 17 119/54 (75) 11/20/24 18:30 98.8 98.8 Total Intake and Output 11/19/24 11/19/24 11/20/24 15:00 23:00 07:00 Intake Total 730 ml 782.00 ml 1318.75 ml Output Total 1050 ml 750 ml Balance 730 ml -268.00 ml 568.75 ml medications Current Medications Medications Dose Ordered Sig/Liliam Route Start Time Stop Time Status Last Admin Dose Admin Amino Acids 0 ml @ 0 mls/hr PER PHARMACY IV 10/15/24 18:45 Cancel Dextrose 50 ml UD IV 10/16/24 09:30 Cancel Vancomycin HCl 0 ml @ 0 mls/hr UD IV 10/19/24 14:00 Cancel Metoprolol Tartrate 2.5 mg Q6HPRN PRN IV 10/31/24 09:15 Amino Acids 0 ml @ 0 mls/hr PER PHARMACY IV 11/04/24 22:00 Cancel Amino Acid Protein 30 ml DAILY PO 11/04/24 10:00 11/20/24 10:46 30 ML Pantoprazole Sodium 40 mg BID IV 11/09/24 22:00 11/20/24 10:44 40 MG Mexiletine HCl 150 mg TID GT 11/10/24 22:00 11/20/24 14:07 150 MG Fat Emulsion Intravenous 150 ml/Sodium Acetate 20 meq/Potassium Acetate 30 meq/ Potassium Phosphate 19.8 meq/Calcium Gluconate 2.3 meq/ Magnesium Sulfate 4 meq/ Multivitamins 10 ml/Chromium/ Copper/Manganese/ Zinc 1 ml/Amino Acids/Dextrose/ Purified Water 1,596.4462 ml @ 66 mls/hr [id number] IV 11/11/24 22:00 11/12/24 21:59 Cancel Furosemide 40 mg BIDD IV 11/14/24 18:00 11/20/24 18:10 40 MG Phenylephrine HCl 250 ml @ 30 mls/hr Q8H20M IV 11/15/24 09:00 11/20/24 07:04 30 MLS/HR Propofol 100 ml @ 2.088 mls/ hr Q24H IV 11/15/24 11:30 Fentanyl Citrate 250 ml @ 2.5 mls/hr Q24H IV 11/15/24 11:45 11/19/24 23:02 2.5 MLS/HR Acetaminophen 650 mg Q4HR PRN GT 11/17/24 08:30 Potassium Bicarbonate 50 meq BID PEG 11/18/24 22:00 11/20/24 10:45 50 MEQ Linezolid 300 ml @ 150 mls/hr Q12HR IV 11/19/24 10:00 11/20/24 10:45 150 MLS/HR Enteral Nutritional Formula 1,000 ml 55ML/HR GT 11/19/24 15:00 11/19/24 19:25 1,000 ML Metoclopramide HCl 5 mg Q8HR IV 11/19/24 22:00 11/20/24 14:08 5 MG Lorazepam 1 mg ONCE PRN IV 11/20/24 10:30 laboratory and microbiology Laboratory Tests 11/20/24 03:15 Test 11/20/24 03:15 Range/Units Serum Glucose 106 74-106 mg/dL Microbiology Date/Time Source Procedure Growth Status 11/16/24 04:50 Urine - Cutler Port Urine Culture - Final Enterococcus faecium - VRE Complete 11/14/24 11:50 Sputum Endotracheal Wash Gram Stain - Final Complete 11/14/24 11:50 Sputum Endotracheal Wash Respiratory Culture - Final Complete 11/14/24 08:50 Blood Blood Culture - Final NO GROWTH AFTER 5 DAYS OF INCUBATION. Complete 11/14/24 04:30 Nose MRSA Screen - Final Complete Labs and/or images reviewed: Labs reviewed by me, Image(s) reviewed by me Problem List/Assessment/Plan Problem List/Assessment/Plan # Shock liver, transaminitis which improved, rule out hepatitis # Possible atypical Pneumonia vs amiodarone toxicity, Community-acquired pneumonia growing Enterobacter # Sepsis, unspecified organism # Ventricular fibrillation # Cardiac arrest s/p ACLS and ROSC after 5 min. # Syncope V-fib s/p shock # Paroxysmal atrial fibrillation # Ventricular tachycardia # Congenital heart disease # Systolic heart failure s/p ICD (Biotronik) implantation by EP (Dr Armstrong) # s/p PRBC transfusion for significant anemia # Gallstones Questionable acute cholecystitis clinically ruled out by Surgical team. # Heart failure with reduced ejection fraction 15-20% # Metabolic versus hypoxic encephalopathy # acute resp failure on 2-3 l oxygen # b/l atelectasis #stop linezolid as there are no signs of pneumonia,diarrhea,UTI or open wounds and risk of thrombocytopenia #discontinue metronidazole #cardiology referral #monitor vitals and labs Plan discussed with: Other Dietary Evaluation Review Comments: 1) TF Jevity 1.2Cal @ 55 ml/hr. x 24hr along with Pro-stat 1 pk daily. Start @ 20ml/hr, increase 10ml/hr Q4H until goal is reached. TF @ goal volume provides 1684 kcal (100% energy needs), 88 gm protein (100% protein needs), 1065 ml free water. 2) Water flush 100ml Q4H if allowed, adjust PRN 3) Advance to cardiac diet as medically feasible 4) Monitor NPO status, lab values, wt trend, I/O Expected Outcomes/Goals: To meet >75% estimated needs within 7 days Lab values to improve Fu 2-3 days JOAN QUEEN RESIDENT Nov 20, 2024 19:11
--- NOTE | 2024-11-20 23:39 | DVHPN2 ---
Subjective DOS: 11/20/2024 Patient seen and examined at bedside. Sedated, intubated on mechanical ventilator. Overnight events reviewed. Changes from previous H/P or p: No Changes Objective Vitals Vital Signs Date Time Temp Pulse Resp B/P (MAP) Pulse Ox O2 Delivery O2 Flow Rate FiO2 11/20/24 22:01 55 18 119/55 (76) 99 30 11/20/24 22:00 Mechanical Ventilator+ 11/20/24 20:00 99.1 99.1 Intake/Output Intake and Output 11/20/24 07:00 Intake Total 2830.75 ml Output Total 1800 ml Balance 1030.75 ml Intake Oral 840 ml IV Total 1508.75 ml Tube Feeding 482 ml Output Urine Total 1800 ml Stool Total 0 ml Exam Gen.: Patient lying in bed in medical ICU. Sedated, intubated on mechanical ventilator. Head: Normocephalic, atraumatic. Eyes: PERRLA. Ears: Normal external anatomy. Throat: Endotracheal tube and orogastric tube in place. Neck: Supple, trachea midline. Chest: Transmitted breath sounds bilaterally. Decreased air entry bilaterally. No wheezing. Bibasilar crackles. Cardiovascular: Positive S1, positive S2. Regular rate and rhythm. Abdomen: Positive bowel sounds in all 4 quadrants. Soft, nontender, nondistended. : [place] in place. Normal external genitalia. Rectal: Deferred. Skin: Warm, dry. Intact. Extremities: 2+ radial pulses bilaterally. No lower extremity edema. Neuro: Sedated. Medications Current Medications Medications Dose Ordered Sig/Liliam Route Start Time Stop Time Status Last Admin Dose Admin Amino Acids 0 ml @ 0 mls/hr PER PHARMACY IV 10/15/24 18:45 Cancel Dextrose 50 ml UD IV 10/16/24 09:30 Cancel Vancomycin HCl 0 ml @ 0 mls/hr UD IV 10/19/24 14:00 Cancel Metoprolol Tartrate 2.5 mg Q6HPRN PRN IV 10/31/24 09:15 Amino Acids 0 ml @ 0 mls/hr PER PHARMACY IV 11/04/24 22:00 Cancel Amino Acid Protein 30 ml DAILY PO 11/04/24 10:00 11/20/24 10:46 30 ML Pantoprazole Sodium 40 mg BID IV 11/09/24 22:00 11/20/24 21:52 40 MG Mexiletine HCl 150 mg TID GT 11/10/24 22:00 11/20/24 21:53 150 MG Fat Emulsion Intravenous 150 ml/Sodium Acetate 20 meq/Potassium Acetate 30 meq/ Potassium Phosphate 19.8 meq/Calcium Gluconate 2.3 meq/ Magnesium Sulfate 4 meq/ Multivitamins 10 ml/Chromium/ Copper/Manganese/ Zinc 1 ml/Amino Acids/Dextrose/ Purified Water 1,596.4462 ml @ 66 mls/hr [id number] IV 11/11/24 22:00 11/12/24 21:59 Cancel Furosemide 40 mg BIDD IV 11/14/24 18:00 11/20/24 18:10 40 MG Phenylephrine HCl 250 ml @ 30 mls/hr Q8H20M IV 11/15/24 09:00 11/20/24 07:04 30 MLS/HR Propofol 100 ml @ 2.088 mls/ hr Q24H IV 11/15/24 11:30 Fentanyl Citrate 250 ml @ 2.5 mls/hr Q24H IV 11/15/24 11:45 11/19/24 23:02 2.5 MLS/HR Acetaminophen 650 mg Q4HR PRN GT 11/17/24 08:30 Potassium Bicarbonate 50 meq BID PEG 11/18/24 22:00 11/20/24 21:53 50 MEQ Enteral Nutritional Formula 1,000 ml 55ML/HR GT 11/19/24 15:00 11/19/24 19:25 1,000 ML Metoclopramide HCl 5 mg Q8HR IV 11/19/24 22:00 11/20/24 21:53 5 MG Lorazepam 1 mg ONCE PRN IV 11/20/24 10:30 Laboratory Results Laboratory Tests 11/20/24 03:15 Chemistry Test 11/20/24 03:15 Calcium Level 8.6 mg/dL (8.7-10.4) L Magnesium Level 2.0 mg/dL (1.6-2.6) Coagulation Test 11/20/24 13:55 Prothrombin Time 14.5 sec (9.3-11.8) H Prothrombin Time INR 1.42 (0.9-1.15) H Activated Partial Thromboplast Time 28.8 SEC (24.5-34.5) Urinalysis Test 10/09/24 22:25 11/15/24 04:00 Urine Creatinine 31.20 mg/dL (30.0-125.0) Urine Protein/Creatinine Ratio 0.72 Urine Sodium 79 mmol/L (40-220) Urine Total Protein 22.5 mg/dL (1-14) H Urine Color Yellow (Yellow) Urine Clarity Turbid (Clear) H Urine pH 5.0 (5.0-9.0) Urine Specific [place] 1.012 (1.001-1.035) Urine Protein Trace (Negative) H Urine Ketones Negative (Negative) Urine Blood 2+ /uL (Negative) H Urine Nitrite Negative (Negative) Urine Bilirubin Negative (Negative) Urine Urobilinogen Normal mg/dL (Negative) Urine Leukocyte Esterase 1+ /uL (Negative) Urine RBC 3 /hpf (0 - 4) Urine Microscopic WBC 14 /HPF (0-5) H Urine Squamous Epithelial Cells Few /hpf (<5) Urine Calcium Oxalate Crystals Few (None Seen) Urine Amorphous Crystals Few /hpf (None Seen) Urine Bacteria Few /hpf (None Seen) H Urine Hyaline Casts Mod /lpf (0 - 2) Urine Mucus Few (None Seen) Urine Glucose Normal mg/dL (Normal) Blood Gas Results Test 11/20/24 06:45 Arterial Blood pH 7.505 (7.350-7.450) FiO2 % 30.0 Microbiology Microbiology Date/Time Source Procedure Growth Status 11/16/24 04:50 Urine - [place] Port Urine Culture - Final Enterococcus faecium - VRE Complete 11/14/24 11:50 Sputum Endotracheal Wash Gram Stain - Final Complete 11/14/24 11:50 Sputum Endotracheal Wash Respiratory Culture - Final Complete 11/14/24 08:50 Blood Blood Culture - Final NO GROWTH AFTER 5 DAYS OF INCUBATION. Complete 11/14/24 04:30 Nose MRSA Screen - Final Complete Assessment/Plan Assessment/Plan Impression: Acute hypoxic respiratory failure On mechanical ventilator s/p cardiac arrest Ventricular tachycardia CPR <5 min Elevated troponin Atelectasis Anemia Events: Remains on vent support Currently on assist control with respiratory rate of 16, tidal volume 350, PEEP 5, FiO2 of 30% ABG reviewed, notable for alkalemia due to metabolic alkalosis. CXR notable for cardiomegaly and pulmonary congestion. Devices in place. On Fentanyl drip. On pressors for hemodynamic support On Stone-Synephrine 15 mcg/min Titrate to keep MAP above 65 mmHg/SBP above 90 mmHg. Continue antibiotics Continue IV steroids Tube feeds for nutritional support Plan for tracheostomy. Recommend tracheostomy vs. disaster recovery analyst acute care. Labs and imaging reviewed. Rest of plan as noted below. Plan: On mechanical ventilator Settings: Assist control with respiratory rate of 16, tidal volume 350, PEEP 5, FiO2 of 30% Titrate FiO2 to keep sats above 92%. VAP bundle Continue antibiotics. F/u cultures. Sputum culture normal from normal oropharyngeal melissa. Urine culture notable for Gram-positive melissa, greater than 100 K. follow up final report. Continue antifungal IV steroids On pressors for hemodynamic support. On Stone-Synephrine On stress dose steroids. Taper down as tolerated. Vitamin K was given on 11/18/24 Monitor hemoglobin Accu-Cheks, ISS PRN. Monitor labs Monitor renal function. On diuresis with Lasix twice daily. Monitor electrolytes. Supplement as necessary. Supplement potassium Supplement magnesium Monitor ins and outs. Maintain euvolemia Cardiology recommendations appreciated. Monitor hemoglobin On Protonix twice daily GI/DVT prophylaxis. On Eliquis twice daily. Prognosis: Poor given patient's multiple co-morbidities. Condition: Critical Rest of plan per hospitalist and other consultants. A total of 35 minutes of critical care time was spent reviewing the patient record, examining the patient, making a diagnostic and therapeutic plan, discussing this plan with the medical personnel, following up on diagnostic studies and following the patient for clinical stability excluding any and all procedures. At least 50% of this time was spent in direct, [id number] contact. Thank you, YURI Gomez, for allowing me to participate in this patient's care. Further recommendations will depend on the patient's clinical course. Please do not hesitate to contact me if you have any questions or concerns. This medical document was created using an electronic medical record system with [employer] system. Although these documentations are being carefully reviewed, there may still be some phonetic and typographical changes. The errors are purely typographical, due to imperfection on the software program, and do not reflect any compromise in the patient's medical care. Plan discussed with: Other (CEE Palm) My Orders Orders - KENNY FROST MD Procedure Category Date Status Time Abg W/ Co-Ox RT 11/20/24 Logged 05:44 Date of Service: Nov 20, 2024 Billing Provider: KENNY FROST MD Common Visit Codes: [id number] INP/OBS CARE(HIGH), [id number] CARE 30-74 MIN KENNY FROST MD Nov 20, 2024 23:39
[2024-11-21] VITALS (103 sets, daily range): BP systolic 90–134; BP diastolic 40–60; PULSE 55–61; RESP 14–24; TEMP 98.1–99.1; O2SAT 98–100
[2024-11-21 04:00] LABS: Hematocrit 38.6 % (36.0-46.0); Hemoglobin 12.3 g/dL (12.2-16.2); Mean Corpuscular Hemoglobin 29.9 pg (28.0-32.0); Mean Corpuscular Volume 94.3 fL (80.0-100.0); Nucleated Red Blood Cells % 0.2 %
[2024-11-21 04:21] LABS: Alanine Aminotransferase 898 U/L (7-40); Albumin 2.7 g/dL (3.2-4.8); Alkaline Phosphatase 252 U/L (46-116); Anion Gap 8 (5-15); BUN/Creatinine Ratio 38.1 (10.0-20.0); Blood Urea Nitrogen 24 mg/dL (9-23); Calcium 8.5 mg/dL (8.7-10.4); Carbon Dioxide 36 mmol/L (20-31); Chloride 98 mmol/L (98-107); Glucose 119 mg/dL (74-106); Magnesium 2.1 mg/dL (1.6-2.6); Potassium 4.9 mmol/L (3.5-5.1); Sodium 142 mmol/L (136-145); Total Protein 5.0 g/dL (5.7-8.2)
[2024-11-21 04:32] LABS: Bilirubin, Total 1.9 mg/dL (0.2-1.0)
--- NOTE | 2024-11-21 05:18 | DVH ---
CHEST RADIOGRAPH Indication: intubated Technique: Single frontal view of the chest was obtained COMPARISON: XY CHEST PORTABLE on DOS: 11/20/24, XY CHEST PORTABLE on DOS: 11/19/24, XY CHEST PORTABLE o n DOS: 11/18/24, XY CHEST PORTABLE on DOS: 11/17/24, XY CHEST PORTABLE on DOS: 11/16/24 FINDINGS: Lines and Tubes: Left chest AICD. Endotracheal tube in satisfactory position. Lungs: Unchanged pulmonary vascular congestion. Pleura: No effusion.No pneumothorax. Cardiomediastinal contours: Median sternotomy. Bones: Unremarkable. IMPRESSION: Unchanged pulmonary vascular congestion.
[2024-11-21 06:41] LABS: Base Excess 7.9 mmol/L (-2.0-3.0)
--- NOTE | 2024-11-21 06:50 | DVHPN2 ---
Progress Note - Dictate Date Seen: Nov 21, 2024 Has the PT tested + for MRSA If YES, has PT been informed?: No Medical Necessity Reason Pt with a Central, PICC or Fol: No The following are medically ne: PICC Line, Cutler Catheter Reason for cutler catheter: Strict I&O vital signs Vital Sign Date Time Temp Pulse Resp B/P (MAP) Pulse Ox O2 Delivery O2 Flow Rate FiO2 11/21/24 06:15 55 19 131/55 (80) 99 11/21/24 06:04 30 11/21/24 06:00 Mechanical Ventilator+ 11/21/24 04:00 99.1 99.1 Total Intake and Output 11/20/24 11/20/24 11/21/24 15:00 23:00 07:00 Intake Total 410.00 ml 899.003 ml 634.25 ml Output Total 950 ml 700 ml Balance 410.00 ml -50.997 ml -65.75 ml medications Current Medications Medications Dose Ordered Sig/Liliam Route Start Time Stop Time Status Last Admin Dose Admin Amino Acids 0 ml @ 0 mls/hr PER PHARMACY IV 10/15/24 18:45 Cancel Dextrose 50 ml UD IV 10/16/24 09:30 Cancel Vancomycin HCl 0 ml @ 0 mls/hr UD IV 10/19/24 14:00 Cancel Metoprolol Tartrate 2.5 mg Q6HPRN PRN IV 10/31/24 09:15 Amino Acids 0 ml @ 0 mls/hr PER PHARMACY IV 11/04/24 22:00 Cancel Amino Acid Protein 30 ml DAILY PO 11/04/24 10:00 11/20/24 10:46 30 ML Pantoprazole Sodium 40 mg BID IV 11/09/24 22:00 11/20/24 21:52 40 MG Mexiletine HCl 150 mg TID GT 11/10/24 22:00 11/21/24 05:29 150 MG Fat Emulsion Intravenous 150 ml/Sodium Acetate 20 meq/Potassium Acetate 30 meq/ Potassium Phosphate 19.8 meq/Calcium Gluconate 2.3 meq/ Magnesium Sulfate 4 meq/ Multivitamins 10 ml/Chromium/ Copper/Manganese/ Zinc 1 ml/Amino Acids/Dextrose/ Purified Water 1,596.4462 ml @ 66 mls/hr G80Q50H IV 11/11/24 22:00 11/12/24 21:59 Cancel Furosemide 40 mg BIDD IV 11/14/24 18:00 11/21/24 05:30 40 MG Phenylephrine HCl 250 ml @ 30 mls/hr Q8H20M IV 11/15/24 09:00 11/21/24 05:29 11.25 MLS/HR Propofol 100 ml @ 2.088 mls/ hr Q24H IV 11/15/24 11:30 Fentanyl Citrate 250 ml @ 2.5 mls/hr Q24H IV 11/15/24 11:45 11/19/24 23:02 2.5 MLS/HR Acetaminophen 650 mg Q4HR PRN GT 11/17/24 08:30 Potassium Bicarbonate 50 meq BID PEG 11/18/24 22:00 11/20/24 21:53 50 MEQ Enteral Nutritional Formula 1,000 ml 55ML/HR GT 11/19/24 15:00 11/19/24 19:25 1,000 ML Metoclopramide HCl 5 mg Q8HR IV 11/19/24 22:00 11/21/24 05:30 5 MG Lorazepam 1 mg ONCE PRN IV 11/20/24 10:30 laboratory and microbiology Laboratory Tests 11/21/24 03:12 Test 11/21/24 03:12 Range/Units Serum Glucose 119 H 74-106 mg/dL Assessment/Plan Still in ICU, intubated and on pressure support. No Arrhythmia identified during this episodes. They are looking into possibility of Tracheostomy (maybe to be performed in [place]?) Cardiac arenas, patient is moderate risk patient for moderate risk tracheostomy. Avoid hypotension. Patient is a 54-year-old female who was brought to the hospital for witnessed syncope. She is intubated and is being managed in ICU. Information was obtained by reviewing the chart and communicating with patient's son (over the phone). Family recognized witnessed syncope and started CPR and called EMS. Reportedly, EMS found the patient in ventricular fibrillation and shocked the patient and brought the patient to the hospital. Patient was intubated in emergency room and transferred to ICU. Patient was on amiodarone drip. Later the patient had ventricular tachycardia (Systane). High sensitive troponin had been minimally/flatly elevated. Presentation was not in favor of acute coronary syndrome. Cardiology is involved for cardiac aspects of care. Intubated. On Vent. No JVD. Mucosa pale. No carotid bruit. Scattered rhonchi in the lungs is heard. Cardiac: Regular, no thrill. Systolic murmur 2/6 in apex is heard. Abdomen is soft. 3+ edema in extremities. Past medical history as per son: Congenital heart disease, status post bypass WBC: 14.5 - 11.9 - 18.8 - 20.0 - 21.2 - 14.3 - 10.3 - 8.9 - 9.2 - 11.1 - 12.1 - 10.8 - 12.0 - 9.9 - 15.4 - 14.8 - 12.1 - 10.5 - 5.8 - 5.3 - 4.2 - 5.8 - 4.1 - 7.0 - 9.3 - 8.3 - 11.5 - 8.4 - 8.4 - 5.4 - 5.7 - 8.4 - 7.4 - 6.2 - 6.7 - 13.9 - 11.7 - 10.1 - 8.8 - 10.7 - 13.9 - 10.6 - 11.5 Hemoglobin: 10.1 - 9.6 - 9.2 - 8.8 - 8.7 - 8.0 - 8.3 - 8.5 - 7.8 - 10.2 - 10.7 - 9.9 - 9.7 - 9.3 - 9.3 - 8.6 - 8.1 - 7.4 - 7.5 - 7.4 - 7.5 - 7.2 - 7.7 - 7.0 - (post PRBC transfusion) 10.4 - 10 - 9.5 - 10.0 - 9.2 - 9.8 -9.6 - 9.7 - 10.2 - 10.6 - 9.7 - 9.7 - 10.5 - 10.0 - 11.4 - 10.8 - 12.4 - 12.7 - 13.3 - 12.3 Creatinine: 0.95 - 0.93 - 0.87 - 0.83 - 0.83 - 0.76 - 0.68 - 0.72 - 0.79 - 0.76 - 0.80 - 0.84 - 0.61 - 0.65 - 0.74 - 0.64 - 0.73 - 0.82 - 0.88 - 1.03 - 0.99 - 0.85 - 0.87 - 0.79 - 1.12 - 1.15 - 1.04 - 0.96 - 0.94 - 0.93 - 0.78 - 0.71 - 0.68 - 0.61 - 0.59 - 0.49 - 0.39 - 0.54 - 0.48 - 0.76 - 0.93 - 0.78 - 0 0.78 - 0.68 - 0.70 - 0.56 -0.64 - 0.63 - 0.63 Potassium: 3.4 - 4.0 - 4.6 - 3.5 - 3.3 - 4.1 - 3.7 - 3.2 - 3.7 - 4.0 - 3.2 - 3.4 - 3.9 - 4.2 - 3.3 - 3.8 - 3.6 - 3.4 - 4.2 - 3.8 - 4.5 - 4.1 - 3.5 - 4.2 - 3.3 - 2.6 - 3.5 - 3.8 - 2.4 - 2.9 - 4.6 - 2.8 - 4.8 - 4.9 - 3.4 - 3.1 - 3.7 - 4.4 - 3.7 - 3.7 - 3.1 - 3.0 - 3.8 - 4.4 - 3.8 - 4.1 - 4.3 - 3.9 - 4.4 - 6.1 - 4.6 - 3.0 - 3.6 - 3.1 - 2.1 - 4.6 - 2.5 - 3.1 - 4.4 - 4.9 - 4.9 Magnesium: 2.0 - 1.6 - 2.0 - 3.0 - 1.5 - 1.9 - 2.1 - 1.8 - 2.0 - 1.9 - 1.9 - 2.6 - 2.0 - 1.8 - 1.6 - 2.0 - 2.2 - 1.9 - 2.3 - 2.2 - 2.2 - 2.1 - 2.1 - 1.9 2.7 - 2.6 - 2.3 - 2.4 - 2.5 - 2.3 - 2.5 - 2.3 - 2.3 - 2.4 - 2.1 - 1.9 - 2.2 - 2.1 - 2.0 - 2.4 - 2.2 - 2.0 - 2.0 - 1.6 - 2.0 - 2.0 - 2.0 - 2.1 Troponin (high sensitive): 141 - 138 - 117 BNP: 457.16 - 1073.91 - 928.14 AST/ALT: 32/11 - 19/13 - 538/168 - 293/152 - 131/130 - 78/94 - 68/74 - 48/57 - 27/38 - 15/23 - 20/18 - 23/17 - 29/16 - 27/13 - 34/17 - 73/49 - 41/43 - 30/47 - 30/42 - 29/42 - 17/27 - 160/87 - 900/478 - 986/571 - 382/436 - 110/244 - 42/170 - 22/113 - 16/77 - 15/59 - 19/50 - 20/41 - 16/32 - 17/30 - 14/25 - 25/38 - - /2337 - >6000/>6000 - 4665/>6000 - 2123/>6000 - 604/4207 - 203/2809 - 131/1787 Digoxin level: 2.83 - 1.25 - 0.98 UDS: non-revealing Chest x-ray revealed: Lines and Tubes: Endotracheal tube tip projects approximately 1.4 cm above the level of the tyler. Enteric catheter courses below the lateral of the diaphragm and terminates beyond the inferior margin of the image. Right internal jugular central venous catheter terminates within the distal superior vena cava. Lungs: Moderate diffuse increased prominence of the pulmonary vasculature without evidence of focal consolidation. Pleura: No effusion. No pneumothorax. Cardiomediastinal contours: Cardiomegaly. Bones: Unremarkable IMPRESSION: 1. Cardiomegaly and diffuse increased prominence of the pulmonary vasculature. 2. Lines and tubes as above. Repeat chest x-ray revealed: IMPRESSION: 1. Endotracheal tube tip 1.6 cm above the tyler; consider 2 cm retraction 2. Mild pulmonary vascular congestion. Moderate cardiomegaly. Repeat chest xry revealed: IMPRESSION: Endotracheal tube tip 1.6 cm above the tyler; consider 2 cm retraction Mild pulmonary vascular congestion. Moderate cardiomegaly. Repeat chest xry revealed: IMPRESSION: 1. Stable cardiomegaly, small left pleural effusion and mild diffuse increased prominence of the pulmonary vasculature. 2. Repositioned endotracheal tube as above. Remaining lines and tubes unchanged. Repeat chest xry revealed: IMPRESSION: 1. Cardiomegaly, stable diffuse increased prominence of the pulmonary vasculature and small bilateral pleural effusions. 2. Slight interval advancement of endotracheal tube as above. Remaining lines and tubes unchanged. Repeat chest xry revealed: IMPRESSION: 1. Slight interval decrease in diffuse increased prominence of the pulmonary vasculature. 2. Stable cardiomegaly and small left pleural effusion. 3. Lines and tubes unchanged. Repeat chest xry revealed: IMPRESSION: 1. Cardiomegaly and small left pleural effusion. 2. Lines and tubes unchanged. Repeat chest xry revealed: IMPRESSION: Stable lines and tubes. Similar lung aeration. Repeat chest xry revealed: IMPRESSION: Cardiomegaly and small left pleural effusion. Lines and tubes unchanged. Repeat chest xry revealed: IMPRESSION: Placement of a cardiac pacer, no pneumothorax is seen. Stable lines and tubes. Repeat chest xry revealed: IMPRESSION: 1. Worsening mixed opacities in the right lower lung. No other significant change from the previous study. Stable support devices. Repeat chest xry revealed: Heart is prominent in size with postsurgical changes, median sternotomy wires, and a single lead left cardiac defibrillator. Support lines and tubes appear unchanged in satisfactory in position. No sizable effusion or pneumothorax. Mild pulmonary vascular congestion. No significant interval change. Repeat chest xry revealed: IMPRESSION: 1. No significant change from the previous study. Stable support devices. Similar findings of heart failure including left pleural effusion. Repeat chest xry revealed: IMPRESSION: 1. No significant change from the previous study. Stable support devices. Similar findings of heart failure including trace left pleural effusion. Repeat chest xry revealed: Lines and Tubes: Unchanged. Left anterior chest wall cardiac pacing device. Lungs: Clear Pleura: No effusion. No pneumothorax. Cardiomediastinal contours: Cardiomegaly. Bones: Unremarkable IMPRESSION: 1. Cardiomegaly. 2. Lines and tubes unchanged. Repeat chest xry revealed: IMPRESSION: Lines and tubes in satisfactory position. No significant interval change. Repeat chest xry revealed: Lines and Tubes: ET tube and NG tube removed. Lungs: Congestion Pleura: No effusion. No pneumothorax. Cardiomediastinal contours: Cardiomegaly Bones: Unremarkable IMPRESSION: 1. Cardiomegaly with CHF. Repeat chest xry revealed: IMPRESSION: 1. Cardiomegaly. 2. Patchy bilateral airspace disease. Repeat chest xry revealed: FINDINGS: Lines and Tubes: None. Left anterior chest wall cardiac pacing device. Lungs: Extensive multifocal bilateral pulmonary airspace disease in a predominantly perihilar and bibasilar distribution with consolidative features. Pleura: No effusion. No pneumothorax. Cardiomediastinal contours: Poorly evaluated secondary to extensive bilateral infiltrate. Bones: Unremarkable IMPRESSION: 1. Extensive multifocal bilateral pulmonary airspace disease in a predominantly perihilar and bibasilar distribution with consolidative features. Repeat chest xry revealed: IMPRESSION: 1. Status post interval intubation. Endotracheal tube tip projects approximately 2.4 cm above the level of the tyler. 2. Grossly stable appearing moderate patchy multifocal bilateral pulmonary airspace disease with consolidative features. 3. Cardiomegaly. Repeat chest xry revealed: IMPRESSION: No significant interval change. Repeat chest xry revealed: IMPRESSION: No significant interval change Repeat chest xry revealed: IMPRESSION: 1. Interval retraction of the endotracheal tube such that the tip now projects approximately 4.5 cm above the level of the tyler. 2. Cardiomegaly. Repeat chest xry revealed: IMPRESSION: 1. Mild interval advancement of the endotracheal tube such that the tip now projects approximately 3.3 cm above the level of the tyler. 2. No evidence of acute cardiopulmonary process. Repeat chest xry revealed: IMPRESSION: Lines and tubes in satisfactory position. No significant interval change. Repeat chest xry revealed: IMPRESSION: 1. Interval advancement of endotracheal tube such that the tip now projects approximately 3.7 cm above the level of the tyler. Remaining lines and tubes unchanged. 2. Cardiomegaly. Repeat chest xry revealed: IMPRESSION: Unchanged pulmonary vascular congestion. Gall Bladder Ultrasound revealed: IMPRESSION: Gallstones are noted. Hepatic steatosis Trace ascites Trace bilateral pleural effusions. Hepatic cirrhosis. Liver Ultrasound revealed: Hepatic steatosis. Trace right pleural effusion. Trace ascites Gallstones Bladder ultrasound revealed: IMPRESSION: 1. Cutler catheter in the bladder in the bladder is decompressed. Repeat Bladder Ultrasound revealed: Urinary bladder is unremarkable with prevoid volume of 29 mL. Urinary bladder wall measures 1.5 mm. Cutler catheter is noted. KUB revealed: IMPRESSION: Nonobstructive bowel gas pattern. Nasogastric tube tip in the stomach. Large stool burden. Repeat KUB revealed: Right lower extremity PICC line with tip projecting over the expected region of the intrahepatic IVC. Nasogastric tube projecting towards the distal stomach. Nonspecific bowel gas pattern. Cardiomegaly and left basilar airspace opacities, incompletely characterized. Atherosclerotic calcification disease. Repeat KUB revealed: IMPRESSION: 1. Nonspecific nonobstructive bowel gas pattern. 2. Gastrostomy tube projects over the midportion of the left hemiabdomen. 3. Right femoral approach central venous catheter as described above. Repeat KUB revealed: IMPRESSION: Nonobstructive bowel gas pattern. Right central venous catheter tip in the IVC Cutler catheter overlying the bladder. Left upper ext arterial duplex: IMPRESSION: No hemodynamically significant stenosis based on peak systolic velocity criteria. Left lower ext arterial duplex: IMPRESSION: There is no evidence for peripheral vascular insufficiency in the left lower extremity. No significant focal stenosis is identified. Liver Ultrasound revealed: Hepatic steatosis. Hepatomegaly. Cholelithiasis. CT of the head revealed: IMPRESSION: No acute intracranial abnormality. Repeat CT of head revealed: IMPRESSION: No acute intracranial abnormality. Repeat CT of Head revealed: IMPRESSION: No acute intracranial abnormality. Repeat CT of head revealed: IMPRESSION: 1. No acute intracranial abnormality. 2. No findings to suggest territorial ischemia. Echocardiogram reported: lvef 15-20% dilated LV severe global dysfunction mild RV dysfunction biatrial enlargement mild moderate MAC, moderate mitral regurg mild to moderate aortic regug (images of echo reviewed and questioned presence of mitral ring and also some component (moderate of Mitral stenosis) EKG revealed sinus rhythm Telemetry revealed occasions of atrial fibrillation. There was occasional sustained ventricular tachycardia. EMS tele monitor revealed ventricular fibrillation for which the patient was shocked. Has remained sinus rhythm. Later with A-fib with MVR LHC revealed: Patent RICHMOND to LAD; Patent SVG to obtuse marginal; LVEF of 20% with increased EDP; Proximal disease in LAD/LCX RICHIE was performed: Consistent with severely reduced LVEF. Consistent with previously implanted Mitral ring, Up to moderate Mitral stenosis/Mitral Regurgitation and also Moderate Aortic insufficiency. Patient is a 54-year-old female who presented with witnessed syncope. She was found to have ventricular fibrillation for which was shocked. Later had repeated episode of sustained ventricular tachycardia. Patient has been kept in ICU. Does have baseline history of coronary artery disease for which has had bypass surgery. Left heart catheterization was performed which revealed patent RICHMOND and patent SVG. ACS is not considered at this point. It is of note that the patient's echocardiogram reveals significantly use systolic function. Valvular heart disease is considered. Findings are in favor of previously implanted mitral ring. By reviewing the echo images, component of up to moderate mitral stenosis could not be ruled out. LHC was performed that ruled out any active specific ischemia as an etiology for presentation. Is off Amiodarone for abnormal LFT. Being followed by Nephrology / Pulmonary / Neurology / GI ID. Tele has remained sinus rhythm. Had episode of a-fib with RVR. Was loaded with Digoxin. Dig level was performed at wrong timing (only 5 hours after the last Dig given). Dig toxicity is not considered. Patient is back to normal sinus rhythm. Has good kidney function. Repeat Dig level is acceptable level. s/p ICD implantation by EP. Intubated, later extubated. s/p PEG. Later had respiratory failure and was taken back to ICU. Imaging question pneumonia (can it be aspiration?). Eventhough repeat BNP has not increased (decreased somehow), patient does have peripheral edema and component of acute on chronic Systolic heart failure could also contribute to respiratory failure. The site of ICD implantation was reviewed by EP (Dr Armstrong on 05/13/2024): healing well (personal communication). Had repeat respiratory failure, back in ICU and intubated. Abnormal LFT. Found to have gall stone and Liver cirrhosis Syncope V-fib s/p shock Sustained V-tach Paroxysmal A-fib VHD, s/p Mitral ring Systolic heart failure Abnormal LFT, at a point resolved, later appeared again s/p ICD (Biotronik) implantation by EP (Dr Armstrong) s/p PRBC transfusion for significant anemia Hepatic Steatosis Gallstones Failed Swallowing s/p PEG Acute respiratory failure Acute on chronic systolic heart failure Gallstone Liver cirrhosis Cardiac suggestion for management: Manage in ICU IV diuresis Follow up electrolytes and kidney function test and correct abnormalities Full anticoagulation (a-fib with high CHADS-Vasc score). s/p ICD implantation. On Eliquis On Mexiletine On Levo-Phed: keep MAP above 65 (for now off pressure support and tolerating) Was on Metoprolol to decrease risk of Vtach (as patient has ICD with bradycardia protection: may continue metoprolol in case of bradycardia, but hold: if hypotensive). For now will stop/hold Metoprolol May consider/add Esmolol for PVC/Vtach (if needed) Cardiac arenas, patient is moderate risk patient for moderate risk tracheostomy. Avoid hypotension. s/p ICD (Biotronik) implantation by EP [place]: 2.5 mg BID s/p PEG Pulmonary Follow up GI follow up Management of repeat respiratory failure, pneumonia as per primary team/pulmonary Provide previous medical records from reaching out to previous hospitals in [facility]... Further evaluation and management depends on the above and clinical course. A total of 75 minutes was spent reviewing the patient record, examining the patient, making a diagnostic and therapeutic plan, discussing this plan with medical personnel, following up on diagnostic studies and following the patient for clinical stability excluding any and all procedures. At least 50% of this time was spent in direct, [id number] contact. Thank you for allowing me to participate in this patient's care. Further recommendations will depend on patient's clinical course. Please do not hesitate to contact me if you have any questions or concerns. This medical document was created using electronic medical record system with [employer] computerized dictation system. Although this document has been carefully reviewed, there may still be some phonetic and typographical errors. These areas are purely typographical due to the imperfection of the software programs, and do not reflect any compromise in the patient's medical care. Dietary Evaluation Review Comments: 1) TF Jevity 1.2Cal @ 55 ml/hr. x 24hr along with Pro-stat 1 pk daily. Start @ 20ml/hr, increase 10ml/hr Q4H until goal is reached. TF @ goal volume provides 1684 kcal (100% energy needs), 88 gm protein (100% protein needs), 1065 ml free water. 2) Water flush 100ml Q4H if allowed, adjust PRN 3) Advance to cardiac diet as medically feasible 4) Monitor NPO status, lab values, wt trend, I/O Expected Outcomes/Goals: To meet >75% estimated needs within 7 days Lab values to improve Fu 2-3 days Plan discussed with: Other (nurse) CORDELL VERA MD Nov 21, 2024 06:50
--- NOTE | 2024-11-21 08:23 | ECG ---
[facility] Test Date: 2024-11-20 Test Time: 15:41:02 Pat Name: CLAIRE OLIVO Department: icu Room: 0283T Gender: F [employer] Requirements Analyst: maira : 1970 Requested By: ETHAN SWAN Order Number: [id number] Reading MD: Marito Skelton Measurements Intervals [place] Rate: 57 P: -65 PA: 174 QRS: 3 QRSD: 105 T: 216 QT: 471 QTc: 459 Interpretive Statements Sinus or ectopic atrial rhythm Abnormal R-wave progression, late transition LVH with secondary repolarization abnormality Electronically Signed On 11-27-2024 21:34:19 PDT by Marito Skelton Please click the below link to view image of tracing.
--- NOTE | 2024-11-21 10:43 | DVHPN2 ---
Progress Note - Dictate Date Seen: Nov 21, 2024 Has the PT tested + for MRSA If YES, has PT been informed?: No Medical Necessity Reason Pt with a Central, PICC or Fol: No The following are medically ne: PICC Line, Cutler Catheter Reason for cutler catheter: Strict I&O Subjective Ms. Smith is a 54 years old female who was brought to the [facility] [place] on 10/07/2024 with a chief complaint of cardiopulmonary arrest/status post CPR. I have seen and examined the patient in the ICU, I have discussed with nurse. She is intubated, but is responsive to verbal stimuli, she does not follow my verbal commands She moves the arms, the right arm is stronger She had PEG insert on 11/09/2024 Blood culture, 10/09/2024: No growth Blood culture, 10/19/2024: ABG, 11/04/2024 0220: Metabolic acidosis, 11/04/2024 0427: Metabolic acidosis UDS, 10/07/2024: Negative Urinalysis, 10/07/2024: Leukocyte esterase: Negative WBC/HB/PLT/MCV, 10/09/2024: 20/8.8/219/94.6, 10/10/2024: 21.2/8.7/232/92.2, 11/14/2024: 13.9/10.5/101/I04.1 PT/INR/PTT, 10/08/2024: 12.4/1.19/72.7, 10/09/2024: 13.1/1.26/68.9, 10/10/2024: 14.4/2/1.38/35.3 CMP, 10/08/2024: Unremarkable Troponin one high sensitivity, 10/07/2024: 141, 138, 117 TBI/AST/ALT/AP, 10/10/2024: 0.5/538/168/144, 10/11/2024: 0.6/293/199/152, 10/14/2024: 0.8/68/74/124 TG/HDL/LDL/HDL, 10/07/24: 71/66/31/21 EKG 10/10/2024: Atrial fibrillation EKG, 10/15/2024: Atrial fibrillation Echocardiogram, 10/07/2024: lvef 15-20% dilated LV severe global dysfunction mild RV dysfunction biatrial enlargement mild moderate MAC, moderate mitral regurg mild to moderate aortic regug RICHIE, 10/08/2024: 1. Left ventricle: Dilated LV was seen. LVEF was 25%. There was diffuse hypokinesis of left ventricle. 2. Right ventricle: RV was mildly dilated. 3. Left atrium: LA enlarged 4. Right atrium: RA was enlarged. 5. Mitral valve: Mitral was thickened with reduced opening. Moderate Mitral regurgitation was seen. Planinomentry of valve (TTE images also obtained) revealed MVA of 2.1 cm. Mean pressure gradient (obtained from limited TTE images) was 5. Images are consistent with previously implanted Ring in Mitral position. Consistent with up to Moderate Mitral stenosis. . There was no vegetation 6. Left atrial appendage: No evidence of thrombus. 7. Aortic valve: Trileaflet valve. No stenosis. Up to moderate Aortic Insufficiency was seen. There was no vegetation 8. Pulmonic valve: Trivial pulmonic insufficiency. No significant stenosis. 9. Tricuspid valve: Mild tricuspid regurgitation. There was no vegetation 10. Interatrial septum: Negative color flow for right to left shunt was observed. Bubble study was performed: negative for shunt 11. Pericardium: No significant effusion. 12. Thoracic aorta: No significant plaquing. Chest x-ray, 10/27/2024: 1. Cardiomegaly, stable diffuse increased prominence of the pulmonary vasculature and small bilateral pleural effusions. 2. Slight interval advancement of endotracheal tube as above. Remaining lines and tubes unchanged. CT head, 10/07/2024: No acute intracranial abnormality General: the patient is well developed and nourished. No acute distress. Intubated CT head, 10/07/2024: No acute intracranial abnormality. CT head, 10/11/2024: No acute intracranial abnormality CT head, 11/01/2024: As above, the other systems are negative CT head, 11/15/2024: 1. No acute intracranial abnormality. 2. No findings to suggest territorial ischemia. vital signs Vital Sign Date Time Temp Pulse Resp B/P (MAP) Pulse Ox O2 Delivery O2 Flow Rate FiO2 11/21/24 09:44 55 16 128/55 (79) 99 30 11/21/24 06:00 Mechanical Ventilator+ 11/21/24 04:00 99.1 99.1 Total Intake and Output 11/20/24 11/20/24 11/21/24 15:00 23:00 07:00 Intake Total 410.00 ml 899.003 ml 634.25 ml Output Total 950 ml 700 ml Balance 410.00 ml -50.997 ml -65.75 ml medications Current Medications Medications Dose Ordered Sig/Liliam Route Start Time Stop Time Status Last Admin Dose Admin Amino Acids 0 ml @ 0 mls/hr PER PHARMACY IV 10/15/24 18:45 Cancel Dextrose 50 ml UD IV 10/16/24 09:30 Cancel Vancomycin HCl 0 ml @ 0 mls/hr UD IV 10/19/24 14:00 Cancel Metoprolol Tartrate 2.5 mg Q6HPRN PRN IV 10/31/24 09:15 Amino Acids 0 ml @ 0 mls/hr PER PHARMACY IV 11/04/24 22:00 Cancel Amino Acid Protein 30 ml DAILY PO 11/04/24 10:00 11/20/24 10:46 30 ML Pantoprazole Sodium 40 mg BID IV 11/09/24 22:00 11/21/24 08:56 40 MG Mexiletine HCl 150 mg TID GT 11/10/24 22:00 11/21/24 05:29 150 MG Fat Emulsion Intravenous 150 ml/Sodium Acetate 20 meq/Potassium Acetate 30 meq/ Potassium Phosphate 19.8 meq/Calcium Gluconate 2.3 meq/ Magnesium Sulfate 4 meq/ Multivitamins 10 ml/Chromium/ Copper/Manganese/ Zinc 1 ml/Amino Acids/Dextrose/ Purified Water 1,596.4462 ml @ 66 mls/hr [id number] IV 11/11/24 22:00 11/12/24 21:59 Cancel Furosemide 40 mg BIDD IV 11/14/24 18:00 11/21/24 05:30 40 MG Phenylephrine HCl 250 ml @ 30 mls/hr Q8H20M IV 11/15/24 09:00 11/21/24 05:29 11.25 MLS/HR Propofol 100 ml @ 2.088 mls/ hr Q24H IV 11/15/24 11:30 Fentanyl Citrate 250 ml @ 2.5 mls/hr Q24H IV 11/15/24 11:45 11/19/24 23:02 2.5 MLS/HR Acetaminophen 650 mg Q4HR PRN GT 11/17/24 08:30 Potassium Bicarbonate 50 meq BID PEG 11/18/24 22:00 11/20/24 21:53 50 MEQ Enteral Nutritional Formula 1,000 ml 55ML/HR GT 11/19/24 15:00 11/19/24 19:25 1,000 ML Metoclopramide HCl 5 mg Q8HR IV 11/19/24 22:00 11/21/24 05:30 5 MG Lorazepam 1 mg ONCE PRN IV 11/20/24 10:30 objective The patient is well-nourished and well-developed with no distress. Intubated MENTAL STATUS: Subjective CRANIAL NERVES: Pupils are equal, round and reactive. This corneal reflex and doll's eye phenomena. No some facial weakness, she has gag reflexes. SENSATION: Okay to light touch and painful stimuli MOTOR: Normal tone in the upper and lower extremity. Normal muscle bulk. No fasciculations. Subjective REFLEXES: Deep tendon reflexes are symmetrical. No pathological reflexes. CEREBELLAR/COORDINATION: Deferred GAIT/STATION: deferred. laboratory and microbiology Laboratory Tests 11/21/24 03:12 Test 11/21/24 03:12 Range/Units Serum Glucose 119 H 74-106 mg/dL Problem List Cardiopulmonary arrest Status post CPR Reintubated on 11/14/2024 Metabolic encephalopathy Hypoxic encephalopathy Congestive heart failure Leukocytosis/sepsis/septic shock Respiratory failure Elevated liver function tests AFib S/P pacemaker insertion on 10/17/2024 ? Chronic organic brain syndrome ? Right arm weakness rule out stroke Assessment/Plan Monitoring Supportive treatment MR head ICU care Stabilize vitals/pressor drip Respiratory support/ vent management Oxygen DVT prophylaxis GI prophylaxis Cardiology on case Pulmonology on case Nephrology on case Need more history This medical document was created using an electronic medical record system with [employer] dictation system. Although this document has been carefully reviewed, there may still be some phonetic and typographical errors. These areas are purely typographical due to imperfections of the software programs, and do not reflect any compromise in the patient's medical care. Prognosis guarded Dietary Evaluation Review Comments: 1) TF Jevity 1.2Cal @ 55 ml/hr. x 24hr along with Pro-stat 1 pk daily. Start @ 20ml/hr, increase 10ml/hr Q4H until goal is reached. TF @ goal volume provides 1684 kcal (100% energy needs), 88 gm protein (100% protein needs), 1065 ml free water. 2) Water flush 100ml Q4H if allowed, adjust PRN 3) Advance to cardiac diet as medically feasible 4) Monitor NPO status, lab values, wt trend, I/O Expected Outcomes/Goals: To meet >75% estimated needs within 7 days Lab values to improve Fu 2-3 days Plan discussed with: Other CAROLINE ROBB MD Nov 21, 2024 10:43
--- NOTE | 2024-11-21 13:15 | DVH ---
CLINICAL HISTORY: LEFT SIDED WEAKNESS TECHNIQUE: Helical scanning was performed of the head from the skull base to the vertex. Multiplanar reconstructions were performed. This exam was performed according to our departmental dose optimizat ion program. Up-to-date CT equipment and radiation dose reduction techniques are utilized as appropri ate. CTDI 56.2 DLP 1106 COMPARISON: CT HEAD WITHOUT CONTRAST on DOS: 11/15/24, CT STROKE CTH on DOS: 11/01/24, CT HEAD WITHOUT C ONTRAST on DOS: 10/11/24, CT HEAD WITHOUT CONTRAST on DOS: 10/07/24 FINDINGS: There is no evidence for acute intracranial hemorrhage, acute ischemic changes, mass, mass effect, or extra-axial fluid collection. There is no hydrocephalus or midline shift. There is no effacement of the cerebral sulci and basal subarachnoid cisterns. The smith-white matter differentiation is well kelly ntained. There are large bilateral mastoid effusions. IMPRESSION: No acute intracranial abnormality seen. Large bilateral mastoid effusions.
--- NOTE | 2024-11-21 14:03 | DVHPN2 ---
Progress Note Date Seen: Nov 21, 2024 Resident Creating Document: ETHAN SWAN RESIDENT Has the PT tested + for MRSA If YES, has PT been informed?: No Medical Necessity Reason Pt with a Central, PICC or Fol: No The following are medically ne: PICC Line, Cutler Catheter Reason for cutler catheter: Strict I&O Subjective Review of Systems Patient seen and examined at bedside Last BM this a.m., liquid 200 cc gastric residuals Remains on minimal vent settings respiratory rate 16, tidal volume 350, peep of 5, FiO2 30% On fentanyl 25, neomycin 15 mcg Objective vital signs Vital Sign Date Time Temp Pulse Resp B/P (MAP) Pulse Ox O2 Delivery O2 Flow Rate FiO2 11/21/24 13:30 55 17 108/57 (74) 98 30 11/21/24 08:00 Mechanical Ventilator+ 11/21/24 04:00 99.1 99.1 Total Intake and Output 11/20/24 11/20/24 11/21/24 15:00 23:00 07:00 Intake Total 410.00 ml 899.003 ml 634.25 ml Output Total 950 ml 700 ml Balance 410.00 ml -50.997 ml -65.75 ml medications Current Medications Medications Dose Ordered Sig/Liliam Route Start Time Stop Time Status Last Admin Dose Admin Amino Acids 0 ml @ 0 mls/hr PER PHARMACY IV 10/15/24 18:45 Cancel Dextrose 50 ml UD IV 10/16/24 09:30 Cancel Vancomycin HCl 0 ml @ 0 mls/hr UD IV 10/19/24 14:00 Cancel Metoprolol Tartrate 2.5 mg Q6HPRN PRN IV 10/31/24 09:15 Amino Acids 0 ml @ 0 mls/hr PER PHARMACY IV 11/04/24 22:00 Cancel Amino Acid Protein 30 ml DAILY PO 11/04/24 10:00 11/20/24 10:46 30 ML Pantoprazole Sodium 40 mg BID IV 11/09/24 22:00 11/21/24 08:56 40 MG Mexiletine HCl 150 mg TID GT 11/10/24 22:00 11/21/24 05:29 150 MG Fat Emulsion Intravenous 150 ml/Sodium Acetate 20 meq/Potassium Acetate 30 meq/ Potassium Phosphate 19.8 meq/Calcium Gluconate 2.3 meq/ Magnesium Sulfate 4 meq/ Multivitamins 10 ml/Chromium/ Copper/Manganese/ Zinc 1 ml/Amino Acids/Dextrose/ Purified Water 1,596.4462 ml @ 66 mls/hr [id number] IV 11/11/24 22:00 11/12/24 21:59 Cancel Furosemide 40 mg BIDD IV 11/14/24 18:00 11/21/24 05:30 40 MG Phenylephrine HCl 250 ml @ 30 mls/hr Q8H20M IV 11/15/24 09:00 11/21/24 05:29 11.25 MLS/HR Propofol 100 ml @ 2.088 mls/ hr Q24H IV 11/15/24 11:30 Fentanyl Citrate 250 ml @ 2.5 mls/hr Q24H IV 11/15/24 11:45 11/21/24 13:14 12.5 MLS/HR Acetaminophen 650 mg Q4HR PRN GT 11/17/24 08:30 Potassium Bicarbonate 50 meq BID PEG 11/18/24 22:00 11/20/24 21:53 50 MEQ Enteral Nutritional Formula 1,000 ml 55ML/HR GT 11/19/24 15:00 11/19/24 19:25 1,000 ML Metoclopramide HCl 5 mg Q8HR IV 11/19/24 22:00 11/21/24 05:30 5 MG Lorazepam 1 mg ONCE PRN IV 11/20/24 10:30 Examination General Appearance: sedated, intubated Head Exam: Normal inspection. Constricted equal and reactive pupils Neck Exam: Normal inspection. Non-tender. Normal alignment Pulmonary/Respiratory: Chest non-tender. Trace crackles Abdominal Exam: Normal bowel sounds. Soft. Nontender Skin Exam: Normal inspection. Normal color. Warm. Dry laboratory and microbiology Laboratory Tests 11/21/24 03:12 Test 11/21/24 03:12 Range/Units Serum Glucose 119 H 74-106 mg/dL Microbiology Date/Time Source Procedure Growth Status 11/16/24 04:50 Urine - Cutler Port Urine Culture - Final Enterococcus faecium - VRE Complete 11/14/24 11:50 Sputum Endotracheal Wash Gram Stain - Final Complete 11/14/24 11:50 Sputum Endotracheal Wash Respiratory Culture - Final Complete 11/14/24 08:50 Blood Blood Culture - Final NO GROWTH AFTER 5 DAYS OF INCUBATION. Complete 11/14/24 04:30 Nose MRSA Screen - Final Complete Labs and/or images reviewed: Labs reviewed by me, Image(s) reviewed by me Problem List/Assessment/Plan Problem List/Assessment/Plan Acute hepatocellular injury likely shock liver Hepatic cirrhosis? Coagulopathy due to above Ventricular fibrillation S/p cardiopulmonary arrest with shock Heart failure with reduced ejection fraction 15-20% Metabolic versus hypoxic encephalopathy Cholelithiasis without acute inflammation Nonalcoholic fatty liver disease with steatohepatitis Community-acquired pneumonia growing Enterobacter Aspiration pnemonia? sepsis Plan: Discontinued free water Repeat 12 lead EKG Consider CPAP trial before trach placement as patient high-risk for surgery continue antibiotic consider MRCP once stable Tapered hydrocortisone to q.12 hours on 11/06/2024 Tapered hydrocortisone to once daily on 11/13/2024 Discontinued hydrocortisone on 11/20/2024 s/p PEG tube placement monitor LFT's Keep PT/INR therapeutic Hemoglobin stable, transfuse if HB 7 or less Continue tube feedings at 20cc/hr Decreased metoclopramide to 5 mg IV b.i.d. JAIDEN positive, outpatient follow up with GI recommended for further workup Thank you so much for the opportunity to consult on your patient. GI team will follow the patient. In case of any questions or concerns please feel free to reach out. Plan discussed with Dr. Anglin Plan discussed with: Other (RN) Dietary Evaluation Review Comments: 1) TF Jevity 1.2Cal @ 55 ml/hr. x 24hr along with Pro-stat 1 pk daily. Start @ 20ml/hr, increase 10ml/hr Q4H until goal is reached. TF @ goal volume provides 1684 kcal (100% energy needs), 88 gm protein (100% protein needs), 1065 ml free water. 2) Water flush 100ml Q4H if allowed, adjust PRN 3) Advance to cardiac diet as medically feasible 4) Monitor NPO status, lab values, wt trend, I/O Expected Outcomes/Goals: To meet >75% estimated needs within 7 days Lab values to improve Fu 2-3 days ETHAN SWAN RESIDENT Nov 21, 2024 14:03
--- NOTE | 2024-11-21 14:50 | DVHPN2 ---
Progress Note Date Seen: Nov 21, 2024 Has the PT tested + for MRSA If YES, has PT been informed?: No Medical Necessity Reason Pt with a Central, PICC or Fol: No The following are medically ne: PICC Line, Cutler Catheter Reason for cutler catheter: Strict I&O Subjective Changes from previous H/P or p: No Changes Objective vital signs Vital Sign Date Time Temp Pulse Resp B/P (MAP) Pulse Ox O2 Delivery O2 Flow Rate FiO2 11/21/24 14:00 30 11/21/24 14:00 16 99 Mechanical Ventilator+ 11/21/24 14:00 55 11/21/24 13:30 108/57 (74) 11/21/24 04:00 99.1 99.1 Total Intake and Output 11/20/24 11/20/24 11/21/24 15:00 23:00 07:00 Intake Total 410.00 ml 899.003 ml 634.25 ml Output Total 950 ml 700 ml Balance 410.00 ml -50.997 ml -65.75 ml medications Current Medications Medications Dose Ordered Sig/Liliam Route Start Time Stop Time Status Last Admin Dose Admin Amino Acids 0 ml @ 0 mls/hr PER PHARMACY IV 10/15/24 18:45 Cancel Dextrose 50 ml UD IV 10/16/24 09:30 Cancel Vancomycin HCl 0 ml @ 0 mls/hr UD IV 10/19/24 14:00 Cancel Metoprolol Tartrate 2.5 mg Q6HPRN PRN IV 10/31/24 09:15 Amino Acids 0 ml @ 0 mls/hr PER PHARMACY IV 11/04/24 22:00 Cancel Amino Acid Protein 30 ml DAILY PO 11/04/24 10:00 11/20/24 10:46 30 ML Pantoprazole Sodium 40 mg BID IV 11/09/24 22:00 11/21/24 08:56 40 MG Mexiletine HCl 150 mg TID GT 11/10/24 22:00 11/21/24 05:29 150 MG Fat Emulsion Intravenous 150 ml/Sodium Acetate 20 meq/Potassium Acetate 30 meq/ Potassium Phosphate 19.8 meq/Calcium Gluconate 2.3 meq/ Magnesium Sulfate 4 meq/ Multivitamins 10 ml/Chromium/ Copper/Manganese/ Zinc 1 ml/Amino Acids/Dextrose/ Purified Water 1,596.4462 ml @ 66 mls/hr [id number] IV 11/11/24 22:00 11/12/24 21:59 Cancel Furosemide 40 mg BIDD IV 11/14/24 18:00 11/21/24 05:30 40 MG Phenylephrine HCl 250 ml @ 30 mls/hr Q8H20M IV 11/15/24 09:00 11/21/24 05:29 11.25 MLS/HR Propofol 100 ml @ 2.088 mls/ hr Q24H IV 11/15/24 11:30 Fentanyl Citrate 250 ml @ 2.5 mls/hr Q24H IV 11/15/24 11:45 11/21/24 13:14 12.5 MLS/HR Acetaminophen 650 mg Q4HR PRN GT 11/17/24 08:30 Potassium Bicarbonate 50 meq BID PEG 11/18/24 22:00 11/20/24 21:53 50 MEQ Enteral Nutritional Formula 1,000 ml 55ML/HR GT 11/19/24 15:00 11/19/24 19:25 1,000 ML Metoclopramide HCl 5 mg Q8HR IV 11/19/24 22:00 11/21/24 05:30 5 MG Lorazepam 1 mg ONCE PRN IV 11/20/24 10:30 Examination: GENERAL:Abnormal, LUNGS:Abnormal, CVS:Abnormal laboratory and microbiology Laboratory Tests 11/21/24 03:12 Test 11/21/24 03:12 Range/Units Serum Glucose 119 H 74-106 mg/dL Microbiology Date/Time Source Procedure Growth Status 11/16/24 04:50 Urine - Cutler Port Urine Culture - Final Enterococcus faecium - VRE Complete 11/14/24 11:50 Sputum Endotracheal Wash Gram Stain - Final Complete 11/14/24 11:50 Sputum Endotracheal Wash Respiratory Culture - Final Complete 11/14/24 08:50 Blood Blood Culture - Final NO GROWTH AFTER 5 DAYS OF INCUBATION. Complete 11/14/24 04:30 Nose MRSA Screen - Final Complete Problem List/Assessment/Plan Problem List/Assessment/Plan BARBIE-hemodynamic mediated etiology proteinuria Cardiac arrest status post V-tach chfref ef 15-20 on eliquis VDRF acute respiratory failure renal function has normalized , electrolytes have normalized k replace prn lasix q 12 , extra dose today monitor for tolerance We will follow renal function closely possible ltac transfer Plan discussed with: Other Dietary Evaluation Review Comments: 1) TF Jevity 1.2Cal @ 55 ml/hr. x 24hr along with Pro-stat 1 pk daily. Start @ 20ml/hr, increase 10ml/hr Q4H until goal is reached. TF @ goal volume provides 1684 kcal (100% energy needs), 88 gm protein (100% protein needs), 1065 ml free water. 2) Water flush 100ml Q4H if allowed, adjust PRN 3) Advance to cardiac diet as medically feasible 4) Monitor NPO status, lab values, wt trend, I/O Expected Outcomes/Goals: To meet >75% estimated needs within 7 days Lab values to improve Fu 2-3 days Critical Care Time (mins): 33 ROSITA QUIGLEY MD Nov 21, 2024 14:50
--- NOTE | 2024-11-21 20:17 | DVHPN2 ---
Progress Note - Dictate Date Seen: Nov 21, 2024 Has the PT tested + for MRSA If YES, has PT been informed?: No Medical Necessity Reason Pt with a Central, PICC or Fol: No The following are medically ne: PICC Line, Cutler Catheter Reason for cutler catheter: Strict I&O vital signs Vital Sign Date Time Temp Pulse Resp B/P (MAP) Pulse Ox O2 Delivery O2 Flow Rate FiO2 11/21/24 20:08 55 20 111/51 (71) 98 30 11/21/24 18:00 Mechanical Ventilator+ 11/21/24 16:30 98.1 98.1 Total Intake and Output 11/20/24 11/20/24 11/21/24 15:00 23:00 07:00 Intake Total 410.00 ml 899.003 ml 670.50 ml Output Total 950 ml 700 ml Balance 410.00 ml -50.997 ml -29.50 ml medications Current Medications Medications Dose Ordered Sig/Liliam Route Start Time Stop Time Status Last Admin Dose Admin Amino Acids 0 ml @ 0 mls/hr PER PHARMACY IV 10/15/24 18:45 Cancel Dextrose 50 ml UD IV 10/16/24 09:30 Cancel Vancomycin HCl 0 ml @ 0 mls/hr UD IV 10/19/24 14:00 Cancel Metoprolol Tartrate 2.5 mg Q6HPRN PRN IV 10/31/24 09:15 Amino Acids 0 ml @ 0 mls/hr PER PHARMACY IV 11/04/24 22:00 Cancel Amino Acid Protein 30 ml DAILY PO 11/04/24 10:00 11/20/24 10:46 30 ML Pantoprazole Sodium 40 mg BID IV 11/09/24 22:00 11/21/24 08:56 40 MG Mexiletine HCl 150 mg TID GT 11/10/24 22:00 11/21/24 15:29 150 MG Fat Emulsion Intravenous 150 ml/Sodium Acetate 20 meq/Potassium Acetate 30 meq/ Potassium Phosphate 19.8 meq/Calcium Gluconate 2.3 meq/ Magnesium Sulfate 4 meq/ Multivitamins 10 ml/Chromium/ Copper/Manganese/ Zinc 1 ml/Amino Acids/Dextrose/ Purified Water 1,596.4462 ml @ 66 mls/hr [id number] IV 11/11/24 22:00 11/12/24 21:59 Cancel Furosemide 40 mg BIDD IV 11/14/24 18:00 11/21/24 18:01 40 MG Phenylephrine HCl 250 ml @ 30 mls/hr Q8H20M IV 11/15/24 09:00 11/21/24 05:29 11.25 MLS/HR Propofol 100 ml @ 2.088 mls/ hr Q24H IV 11/15/24 11:30 Fentanyl Citrate 250 ml @ 2.5 mls/hr Q24H IV 11/15/24 11:45 11/19/24 23:02 2.5 MLS/HR Acetaminophen 650 mg Q4HR PRN GT 11/17/24 08:30 Potassium Bicarbonate 50 meq BID PEG 11/18/24 22:00 11/20/24 21:53 50 MEQ Enteral Nutritional Formula 1,000 ml 55ML/HR GT 11/19/24 15:00 11/19/24 19:25 1,000 ML Metoclopramide HCl 5 mg Q8HR IV 11/19/24 22:00 11/21/24 15:29 5 MG Lorazepam 1 mg ONCE PRN IV 11/20/24 10:30 Polyethylene Glycol 17 gm DAILY PO 11/22/24 10:00 objective HEENT: EOMI, PERRLA, normal external inspect of ears, no icterus, no nasal drainage Neck: no carotid bruit, no jugular venous distention (JVD), no lymphadenopathy Chest: normal thorax Respiratory: Intubated, clear to auscultation, normal air movement Cardiovascular: regular rate and rhythm, no diastolic murmur, no jugular venous distention (JVD), no rub, no systolic murmur Abdominal: soft, no hepatomegaly, no mass, no splenomegaly, no tenderness Genitourinary: grossly normal external Musculoskeletal: no joint tenderness, no swelling Extremities: normal pulses, no calf tenderness, no clubbing, no cyanosis, no edema Skin: no bruising, no jaundice, no rash Neurological: No focal deficit laboratory and microbiology Laboratory Tests 11/21/24 03:12 Test 11/21/24 03:12 Range/Units Serum Glucose 119 H 74-106 mg/dL Problem List Cardiac Arrest with Ventricular Fibrillation Assessment: Patient experienced cardiac arrest with ventricular fibrillation on 10/07/24, witnessed by family members who initiated CPR. EMS found the patient in ventricular fibrillation and administered shock therapy. Rhythm strip analysis confirmed ventricular fibrillation. Patient required intubation and sedation upon ED arrival. Currently admitted to ICU for close observation. Cardiology has been consulted and plans for AICD placement, likely on Tuesday. Infectious disease clearance has been obtained for the AICD procedure, addressing initial concerns of leukocytosis which is now improving. Status post-cardiac arrest. Plan: - Continue ICU monitoring - Proceed with AICD placement as planned (likely Tuesday), cleared by infectious disease. - Maintain intubation and sedation until AICD placement - Continue Heparin drip for paroxysmal atrial fibrillation - Continue Mexitil - DC amiodarone due to transaminitis - added esmolol drip per Cardiology for AFib and added push doses of digoxin Coronary Artery Disease Assessment: Patient with history of 2-vessel CABG (Coronary Artery Bypass Grafting). Surgical intervention previously performed to address significant coronary artery stenosis. Plan: - Continue medical management - Follow up with cardiology for ongoing coronary artery disease management Acute and Chronic Systolic Heart Failure Assessment: Patient has acute and chronic systolic heart failure with severely reduced left ventricular function. Ejection fraction is estimated at 15-20%. RICHIE findings are consistent with severely reduced left ventricular ejection fraction, previously implanted mitral ring, up to moderate mitral stenosis and regurgitation, and moderate aortic insufficiency. Plan: - Continue cardiology consultation - continue IV diuretics (IV Lasix) - Monitor renal function Acute Hypoxic Respiratory Failure Assessment: Patient is currently intubated due to acute hypoxic respiratory failure. Dr. Downey from pulmonology is managing this aspect of care. Plan: - Maintain current intubation as per pulmonology recommendation - Proceed with CPAP trials when deemed appropriate by pulmonology Transaminitis Assessment: Patient has elevated liver function tests, likely secondary to amiodarone use. Cardiology has discontinued amiodarone in response. Plan: - Monitor liver function tests - Amiodarone discontinued as per cardiology Enterobacter PNA Assessment: Sputum culture positive for Enterobacter. Plan: - Continue treatment with Eratapenem to complete 10 days regimen -Infectious disease consult Hemodynamic Support Assessment: Patient requires vasopressor support for hemodynamic stability. Plan: - Continue vasopressin - Continue neosynephrine Paroxysmal a fib -DC amiodarone -continue with heparin gtt Shock liver GI consult, trend liver enzymes, hepatitis panel was negative. Ultrasound of the liver had no acute findings. Assessment/Plan Subjective: Patient is off sedation and has not been responsive. Objective: I spoke with RN at bedside. Patient is undergoing LTAC evaluation for transfer for continued pulmonary rehab. Plan: Continue tube feedings as tolerated for nutritional support. Monitor labs as needed. Continue spontaneous breathing trials. Plan to transfer to [facility] facility when bed is available. Dietary Evaluation Review Comments: 1) TF Jevity 1.2Cal @ 55 ml/hr. x 24hr along with Pro-stat 1 pk daily. Start @ 20ml/hr, increase 10ml/hr Q4H until goal is reached. TF @ goal volume provides 1684 kcal (100% energy needs), 88 gm protein (100% protein needs), 1065 ml free water. 2) Water flush 100ml Q4H if allowed, adjust PRN 3) Advance to cardiac diet as medically feasible 4) Monitor NPO status, lab values, wt trend, I/O Expected Outcomes/Goals: To meet >75% estimated needs within 7 days Lab values to improve Fu 2-3 days Plan discussed with: Patient, Other BRODIE GARVIN SPLITTING MACHINE FEEDER Nov 21, 2024 20:17
--- NOTE | 2024-11-21 21:17 | DVHPN2 ---
Consult Progress Note Objective vital signs Vital Sign Date Time Temp Pulse Resp B/P (MAP) Pulse Ox O2 Delivery O2 Flow Rate FiO2 11/21/24 20:08 55 20 111/51 (71) 98 30 11/21/24 18:00 Mechanical Ventilator+ 11/21/24 16:30 98.1 98.1 Total Intake and Output 11/20/24 11/20/24 11/21/24 15:00 23:00 07:00 Intake Total 410.00 ml 899.003 ml 670.50 ml Output Total 950 ml 700 ml Balance 410.00 ml -50.997 ml -29.50 ml medications Current Medications Medications Dose Ordered Sig/Liliam Route Start Time Stop Time Status Last Admin Dose Admin Amino Acids 0 ml @ 0 mls/hr PER PHARMACY IV 10/15/24 18:45 Cancel Dextrose 50 ml UD IV 10/16/24 09:30 Cancel Vancomycin HCl 0 ml @ 0 mls/hr UD IV 10/19/24 14:00 Cancel Metoprolol Tartrate 2.5 mg Q6HPRN PRN IV 10/31/24 09:15 Amino Acids 0 ml @ 0 mls/hr PER PHARMACY IV 11/04/24 22:00 Cancel Amino Acid Protein 30 ml DAILY PO 11/04/24 10:00 11/20/24 10:46 30 ML Pantoprazole Sodium 40 mg BID IV 11/09/24 22:00 11/21/24 08:56 40 MG Mexiletine HCl 150 mg TID GT 11/10/24 22:00 11/21/24 15:29 150 MG Fat Emulsion Intravenous 150 ml/Sodium Acetate 20 meq/Potassium Acetate 30 meq/ Potassium Phosphate 19.8 meq/Calcium Gluconate 2.3 meq/ Magnesium Sulfate 4 meq/ Multivitamins 10 ml/Chromium/ Copper/Manganese/ Zinc 1 ml/Amino Acids/Dextrose/ Purified Water 1,596.4462 ml @ 66 mls/hr [id number] IV 11/11/24 22:00 11/12/24 21:59 Cancel Furosemide 40 mg BIDD IV 11/14/24 18:00 11/21/24 18:01 40 MG Phenylephrine HCl 250 ml @ 30 mls/hr Q8H20M IV 11/15/24 09:00 11/21/24 05:29 11.25 MLS/HR Propofol 100 ml @ 2.088 mls/ hr Q24H IV 11/15/24 11:30 Fentanyl Citrate 250 ml @ 2.5 mls/hr Q24H IV 11/15/24 11:45 11/19/24 23:02 2.5 MLS/HR Acetaminophen 650 mg Q4HR PRN GT 11/17/24 08:30 Potassium Bicarbonate 50 meq BID PEG 11/18/24 22:00 11/20/24 21:53 50 MEQ Enteral Nutritional Formula 1,000 ml 55ML/HR GT 11/19/24 15:00 11/19/24 19:25 1,000 ML Metoclopramide HCl 5 mg Q8HR IV 11/19/24 22:00 11/21/24 15:29 5 MG Lorazepam 1 mg ONCE PRN IV 11/20/24 10:30 Polyethylene Glycol 17 gm DAILY PO 11/22/24 10:00 laboratory and microbiology Laboratory Tests 11/21/24 03:12 Test 11/21/24 03:12 Range/Units Serum Glucose 119 H 74-106 mg/dL Problem List/Assessment/Plan Problem List/Assessment/Plan Problems(with codes): (1) Pneumonia (2) Cardiac arrest (3) Ventricular fibrillation (4) Sepsis, unspecified organism Plan/Recommendation ASSESSMENT AND PLAN: ID Problem List: \-- Status post cardiac arrest with return of spontaneous circulation (ROSC) \-- Ventricular tachycardia and atrial fibrillation \-- Recent aspiration event/pneumonitis versus pneumonia, Enterobacter cloacae isolated \-- Severe reduced ejection fraction (EF 1520%), dilated LV, severe global dysfunction \-- History of CABG with stents, mitral ring implant \-- Hypothermia, hypoxia requiring intubation and sedation \-- Sepsis (suspected/treated), leukocytosis (now resolved) \-- Ongoing vasopressor requirement (phenylephrine) \-- ICD placement planned Assessment Ms. Smith is a 54-year-old female with a past medical history notable for prior coronary artery bypass grafting (CABG) with stenting, recent mitral ring implant, and significant cardiac disease. She presented on 10/07 with an acute witnessed cardiac arrest during dinner; initial rhythm was ventricular tachycardia/atrial fibrillation. ROSC was achieved on EMS arrival after a single shock and Narcan administration. She was found to be hypothermic and hypotensive and required intubation for airway protection due to altered mental status. During her ICU course, she had recurrent ventricular tachycardia and atrial fibrillation, managed with antiarrhythmic drip (amiodarone), vasopressors (initially Levophed, currently phenylephrine), and heparin drip. Echocardiogram and left heart catheterization confirmed poor left ventricular function (EF 1520%, dilated LV) and patent bypass grafts. The patient also experienced aspiration pneumonitis, with Enterobacter cloacae isolated from sputum (sensitive to cefepime); empiric antibiotics were escalated to ertapenem following transient fever and leukocytosis, which have since resolved. Currently, she remains intubated on pressure support (tolerating CPAP trials), minimally following commands. She is on phenylephrine, Lasix drip, and heparin drip, with ongoing close monitoring. Cardiology in agreement to proceed with ICD placement given recurrent arrhythmias. Infectious disease clearance provided for this, as there is no evidence of persistent infection or sepsis (blood cultures negative, leukocytosis resolved). 10/12: awaiting AICD placement 10/13: sputum culture was done for further evaluation of persistent pneumonia , no thick secretions 10/14:Dr. bernardo recommends stopping aminopterin drip and LFTs appear to be improving with this change 10/15:lfts are normalizing , sputum shows krystal colonization 10/16: holding excavation til placement 10/17:s/p AICD placement and tolerated procedure . lfts are normal and off amioterine drip 10/18: sp Status post successful implantation of dual chamber AICD, DX Biotronik, Device was programmed into VDI lower rate of 40 bpm 10/19: unclear if patient aspirated vs developed new infection 10/20: levofed at 2 mics and started on steroids agree with continuing regimen until able to titrate off . suspect aspiration pneumonia , has high tube feed residuals . chest xray shows little changes but there is mild congestion in the right lung base , patient remains hypotensive . blood cultures no growth to date as well as urine cultures .appears to be recovering now that antibiotics have been re initiated 10/21:chest xray shows right lower lung base infiltrates , suspect aspiration pneumonia due to high tube feed residuals Plan: - large suspicion for aspiration pneumonia , discontinue vancomycin and continue zosyn for now - if hypoxia remains stable and continues to come off pressers support would discontinue zosyn in 2-3 days - defer to primary and stevedoring superintendent team for management - keep maps above 65 - f/u on blood and urine culture results - continue zosyn - continue antibiotics \-- Maintain phenylephrine drip; titrate as needed to maintain MAP. \-- Monitor neurological status; currently, patient is intermittently following commands and is becoming more alert \-- No evidence of active sepsis or bacteremia at this time. \-- Continue supportive ICU care and multidisciplinary management. Authorized and Performed by: soham gramajo md Total critical care time: Approximately 36 minutes Due to a high probability of clinically significant, life threatening deterioration, the patient required my highest level of preparedness to intervene emergently and I personally spent this critical care time directly and personally managing the patient. This critical care time included obtaining a history; examining the patient; pulse oximetry; ordering and review of studies; arranging urgent treatment with development of a management plan; evaluation of patient's response to treatment; frequent reassessment; and, discussions with other providers. This critical care time was performed to assess and manage the high probability of imminent, life-threatening deterioration that could result in multi-organ failure. It was exclusive of separately billable procedures and treating other patients and teaching time. Isolation Precautions: Standard Dietary Evaluation Review Comments: 1) TF Jevity 1.2Cal @ 55 ml/hr. x 24hr along with Pro-stat 1 pk daily. Start @ 20ml/hr, increase 10ml/hr Q4H until goal is reached. TF @ goal volume provides 1684 kcal (100% energy needs), 88 gm protein (100% protein needs), 1065 ml free water. 2) Water flush 100ml Q4H if allowed, adjust PRN 3) Advance to cardiac diet as medically feasible 4) Monitor NPO status, lab values, wt trend, I/O Expected Outcomes/Goals: To meet >75% estimated needs within 7 days Lab values to improve Fu 2-3 days SOHAM GRAMAJO MD Nov 21, 2024 21:17
--- NOTE | 2024-11-21 23:05 | DVHPN2 ---
Subjective DOS: 11/21/2024 Patient seen and examined at bedside. Intubated on mechanical ventilator. Overnight events reviewed. Changes from previous H/P or p: No Changes Objective Vitals Vital Signs Date Time Temp Pulse Resp B/P (MAP) Pulse Ox O2 Delivery O2 Flow Rate FiO2 11/21/24 22:28 56 19 113/42 (65) 98 30 11/21/24 18:00 Mechanical Ventilator+ 11/21/24 16:30 98.1 98.1 Intake/Output Intake and Output 11/21/24 07:00 Intake Total 1979.503 ml Output Total 1650 ml Balance 329.503 ml Intake Oral 400 ml IV Total 752.503 ml Tube Feeding 827 ml Output Urine Total 1650 ml Stool Total 0 ml Exam Gen.: Patient lying in bed in medical ICU. Intubated on mechanical ventilator. Head: Normocephalic, atraumatic. Eyes: PERRLA. Ears: Normal external anatomy. Throat: Endotracheal tube and orogastric tube in place. Neck: Supple, trachea midline. Chest: Transmitted breath sounds bilaterally. Decreased air entry bilaterally. No wheezing. Bibasilar crackles. Cardiovascular: Positive S1, positive S2. Regular rate and rhythm. Abdomen: Positive bowel sounds in all 4 quadrants. Soft, nontender, nondistended. : [place] in place. Normal external genitalia. Rectal: Deferred. Skin: Warm, dry. Intact. Extremities: 2+ radial pulses bilaterally. No lower extremity edema. Neuro: Off sedation Medications Current Medications Medications Dose Ordered Sig/Liliam Route Start Time Stop Time Status Last Admin Dose Admin Amino Acids 0 ml @ 0 mls/hr PER PHARMACY IV 10/15/24 18:45 Cancel Dextrose 50 ml UD IV 10/16/24 09:30 Cancel Vancomycin HCl 0 ml @ 0 mls/hr UD IV 10/19/24 14:00 Cancel Metoprolol Tartrate 2.5 mg Q6HPRN PRN IV 10/31/24 09:15 Amino Acids 0 ml @ 0 mls/hr PER PHARMACY IV 11/04/24 22:00 Cancel Amino Acid Protein 30 ml DAILY PO 11/04/24 10:00 11/20/24 10:46 30 ML Pantoprazole Sodium 40 mg BID IV 11/09/24 22:00 11/21/24 21:48 40 MG Mexiletine HCl 150 mg TID GT 11/10/24 22:00 11/21/24 21:48 150 MG Fat Emulsion Intravenous 150 ml/Sodium Acetate 20 meq/Potassium Acetate 30 meq/ Potassium Phosphate 19.8 meq/Calcium Gluconate 2.3 meq/ Magnesium Sulfate 4 meq/ Multivitamins 10 ml/Chromium/ Copper/Manganese/ Zinc 1 ml/Amino Acids/Dextrose/ Purified Water 1,596.4462 ml @ 66 mls/hr [id number] IV 11/11/24 22:00 11/12/24 21:59 Cancel Furosemide 40 mg BIDD IV 11/14/24 18:00 11/21/24 18:01 40 MG Phenylephrine HCl 250 ml @ 30 mls/hr Q8H20M IV 11/15/24 09:00 11/21/24 21:47 30 MLS/HR Propofol 100 ml @ 2.088 mls/ hr Q24H IV 11/15/24 11:30 Fentanyl Citrate 250 ml @ 2.5 mls/hr Q24H IV 11/15/24 11:45 11/19/24 23:02 2.5 MLS/HR Acetaminophen 650 mg Q4HR PRN GT 11/17/24 08:30 Potassium Bicarbonate 50 meq BID PEG 11/18/24 22:00 11/21/24 21:48 50 MEQ Enteral Nutritional Formula 1,000 ml 55ML/HR GT 11/19/24 15:00 11/19/24 19:25 1,000 ML Metoclopramide HCl 5 mg Q8HR IV 11/19/24 22:00 11/21/24 21:48 5 MG Lorazepam 1 mg ONCE PRN IV 11/20/24 10:30 Polyethylene Glycol 17 gm DAILY PO 11/22/24 10:00 Laboratory Results Laboratory Tests 11/21/24 03:12 Chemistry Test 11/21/24 03:12 Albumin 2.7 g/dL (3.2-4.8) L Calcium Level 8.5 mg/dL (8.7-10.4) L Magnesium Level 2.1 mg/dL (1.6-2.6) Total Protein 5.0 g/dL (5.7-8.2) L LFT Test 11/21/24 03:12 Alanine Aminotransferase (ALT) 898 U/L (7-40) H Alkaline Phosphatase 252 U/L (46-116) H Aspartate Amino Transferase (AST) 64 U/L (13-40) H Total Bilirubin 1.9 mg/dL (0.2-1.0) H Urinalysis Test 10/09/24 22:25 11/15/24 04:00 Urine Creatinine 31.20 mg/dL (30.0-125.0) Urine Protein/Creatinine Ratio 0.72 Urine Sodium 79 mmol/L (40-220) Urine Total Protein 22.5 mg/dL (1-14) H Urine Color Yellow (Yellow) Urine Clarity Turbid (Clear) H Urine pH 5.0 (5.0-9.0) Urine Specific [place] 1.012 (1.001-1.035) Urine Protein Trace (Negative) H Urine Ketones Negative (Negative) Urine Blood 2+ /uL (Negative) H Urine Nitrite Negative (Negative) Urine Bilirubin Negative (Negative) Urine Urobilinogen Normal mg/dL (Negative) Urine Leukocyte Esterase 1+ /uL (Negative) Urine RBC 3 /hpf (0 - 4) Urine Microscopic WBC 14 /HPF (0-5) H Urine Squamous Epithelial Cells Few /hpf (<5) Urine Calcium Oxalate Crystals Few (None Seen) Urine Amorphous Crystals Few /hpf (None Seen) Urine Bacteria Few /hpf (None Seen) H Urine Hyaline Casts Mod /lpf (0 - 2) Urine Mucus Few (None Seen) Urine Glucose Normal mg/dL (Normal) Blood Gas Results Test 11/21/24 06:38 Arterial Blood pH 7.454 (7.350-7.450) FiO2 % 30.0 Microbiology Microbiology Date/Time Source Procedure Growth Status 11/16/24 04:50 Urine - [place] Urine Culture - Final Enterococcus faecium - VRE Complete 11/14/24 11:50 Sputum Endotracheal Wash Gram Stain - Final Complete 11/14/24 11:50 Sputum Endotracheal Wash Respiratory Culture - Final Complete 11/14/24 08:50 Blood Blood Culture - Final NO GROWTH AFTER 5 DAYS OF INCUBATION. Complete 11/14/24 04:30 Nose MRSA Screen - Final Complete Assessment/Plan Assessment/Plan Impression: Acute hypoxic respiratory failure On mechanical ventilator s/p cardiac arrest Ventricular tachycardia CPR <5 min Elevated troponin Atelectasis Anemia Events: Remains on vent support Currently on assist control with respiratory rate of 16, tidal volume 350, PEEP 5, FiO2 of 30% ABG reviewed, notable for alkalemia due to metabolic alkalosis. CXR shows pulmonary vascular congestion, unchanged. Devices in place. On pressors for hemodynamic support On Stone-Synephrine 15 mcg/min Titrate to keep MAP above 65 mmHg/SBP above 90 mmHg. Continue antibiotics Continue IV steroids Monitor hemoglobin - 12.3 g/dL Continue diuresis w/ Lasix Monitor renal function Monitor electrolytes. Supplement as necessary Potassium supplementation Protonix BID for GI prophylaxis Tube feeds for nutritional support Plan for tracheostomy. Recommend tracheostomy vs. [facility] acute care. Labs and imaging reviewed. Rest of plan as noted below. Plan: On mechanical ventilator Settings: Assist control with respiratory rate of 16, tidal volume 350, PEEP 5, FiO2 of 30% Titrate FiO2 to keep sats above 92%. VAP bundle Continue antibiotics. F/u cultures. Sputum culture shows normal oropharyngeal melissa. Urine culture notable for Gram-positive melissa, greater than 100 K. follow up final report. Continue antifungal IV steroids On pressors for hemodynamic support. On Stone-Synephrine On stress dose steroids. Taper down as tolerated. Monitor hemoglobin Accu-Cheks, ISS PRN. Monitor labs Monitor renal function. On diuresis with Lasix twice daily. Monitor electrolytes. Supplement as necessary. Supplement potassium Magnesium at goal Monitor ins and outs. Maintain euvolemia Cardiology recommendations appreciated. On Protonix twice daily GI/DVT prophylaxis. On Eliquis twice daily. Prognosis: Poor given patient's multiple co-morbidities. Condition: Critical Rest of plan per hospitalist and other consultants. A total of 35 minutes of critical care time was spent reviewing the patient record, examining the patient, making a diagnostic and therapeutic plan, discussing this plan with the medical personnel, following up on diagnostic studies and following the patient for clinical stability excluding any and all procedures. At least 50% of this time was spent in direct, [id number] contact. Thank you, YURI Gomez, for allowing me to participate in this patient's care. Further recommendations will depend on the patient's clinical course. Please do not hesitate to contact me if you have any questions or concerns. This medical document was created using an electronic medical record system with [employer] system. Although these documentations are being carefully reviewed, there may still be some phonetic and typographical changes. The errors are purely typographical, due to imperfection on the software program, and do not reflect any compromise in the patient's medical care. Plan discussed with: Other (RN Judy) My Orders Orders - KENNY FROST MD Procedure Category Date Status Time Abg W/ Co-Ox RT 11/21/24 Logged 05:32 Date of Service: Nov 21, 2024 Billing Provider: KENNY FROST MD Common Visit Codes: 80659-[id number] INP/OBS CARE(HIGH), 11444-QINMPQOP CARE 30-74 MIN KENNY FROST MD Nov 21, 2024 23:05
[2024-11-22] VITALS (110 sets, daily range): BP systolic 83–138; BP diastolic 34–66; PULSE 46–69; RESP 11–28; TEMP 98.4–99.9; O2SAT 97–100
[2024-11-22 04:43] LABS: Hematocrit 37.4 % (36.0-46.0); Hemoglobin 12.0 g/dL (12.2-16.2); Mean Corpuscular Hemoglobin 30.3 pg (28.0-32.0); Mean Corpuscular Volume 94.7 fL (80.0-100.0); Nucleated Red Blood Cells % 0.1 %
[2024-11-22 04:53] LABS: Anion Gap 8 (5-15); Chloride 99 mmol/L (98-107); Potassium 4.3 mmol/L (3.5-5.1)
[2024-11-22 04:55] LABS: Calcium 8.6 mg/dL (8.7-10.4); Carbon Dioxide 38 mmol/L (20-31); Sodium 145 mmol/L (136-145)
[2024-11-22 04:59] LABS: BUN/Creatinine Ratio 40.4 (10.0-20.0); Blood Urea Nitrogen 23 mg/dL (9-23); Glucose 94 mg/dL (74-106)
--- NOTE | 2024-11-22 06:04 | DVH ---
CHEST RADIOGRAPH Indication: intubated Technique: Single frontal view of the chest was obtained COMPARISON: XY CHEST PORTABLE on DOS: 11/21/24, XY CHEST PORTABLE on DOS: 11/20/24, XY CHEST PORTABLE o n DOS: 11/19/24, XY CHEST PORTABLE on DOS: 11/18/24, XY CHEST PORTABLE on DOS: 11/17/24 FINDINGS: Lines and Tubes: Endotracheal tube in satisfactory position. Left chest wall AICD. Lungs: Congestion Pleura: No effusion. No pneumothorax. Cardiomediastinal contours: Cardiomegaly. Median sternotomy. Unchanged pulmonary vascular congestion. Bones: Unremarkable. IMPRESSION: No significant interval change.
[2024-11-22 06:41] LABS: Base Excess 13.5 mmol/L (-2.0-3.0)
[2024-11-22] MEDS: ACETAMINOPHEN 650 mg PER 20.3 mL UD GT PRN (07:10)
--- NOTE | 2024-11-22 07:26 | DVHPN2 ---
Progress Note - Dictate Date Seen: Nov 22, 2024 Has the PT tested + for MRSA If YES, has PT been informed?: No Medical Necessity Reason Pt with a Central, PICC or Fol: No The following are medically ne: PICC Line, Cutler Catheter Reason for cutler catheter: Strict I&O vital signs Vital Sign Date Time Temp Pulse Resp B/P (MAP) Pulse Ox O2 Delivery O2 Flow Rate FiO2 11/22/24 07:10 100.8 11/22/24 07:00 58 22 123/51 (75) 99 11/22/24 06:10 30 11/22/24 06:00 Mechanical Ventilator+ Total Intake and Output 11/21/24 11/21/24 11/22/24 15:00 23:00 07:00 Intake Total 290.00 ml 645.50 ml 447.5 ml Output Total 700 ml 1250 ml Balance 290.00 ml -54.50 ml -802.5 ml medications Current Medications Medications Dose Ordered Sig/Liliam Route Start Time Stop Time Status Last Admin Dose Admin Amino Acids 0 ml @ 0 mls/hr PER PHARMACY IV 10/15/24 18:45 Cancel Dextrose 50 ml UD IV 10/16/24 09:30 Cancel Vancomycin HCl 0 ml @ 0 mls/hr UD IV 10/19/24 14:00 Cancel Metoprolol Tartrate 2.5 mg Q6HPRN PRN IV 10/31/24 09:15 Amino Acids 0 ml @ 0 mls/hr PER PHARMACY IV 11/04/24 22:00 Cancel Amino Acid Protein 30 ml DAILY PO 11/04/24 10:00 11/20/24 10:46 30 ML Pantoprazole Sodium 40 mg BID IV 11/09/24 22:00 11/21/24 21:48 40 MG Mexiletine HCl 150 mg TID GT 11/10/24 22:00 11/22/24 05:08 150 MG Fat Emulsion Intravenous 150 ml/Sodium Acetate 20 meq/Potassium Acetate 30 meq/ Potassium Phosphate 19.8 meq/Calcium Gluconate 2.3 meq/ Magnesium Sulfate 4 meq/ Multivitamins 10 ml/Chromium/ Copper/Manganese/ Zinc 1 ml/Amino Acids/Dextrose/ Purified Water 1,596.4462 ml @ 66 mls/hr [id number] IV 11/11/24 22:00 11/12/24 21:59 Cancel Furosemide 40 mg BIDD IV 11/14/24 18:00 11/22/24 05:09 40 MG Phenylephrine HCl 250 ml @ 30 mls/hr Q8H20M IV 11/15/24 09:00 11/22/24 06:34 30 MLS/HR Propofol 100 ml @ 2.088 mls/ hr Q24H IV 11/15/24 11:30 Fentanyl Citrate 250 ml @ 2.5 mls/hr Q24H IV 11/15/24 11:45 11/19/24 23:02 2.5 MLS/HR Acetaminophen 650 mg Q4HR PRN GT 11/17/24 08:30 11/22/24 07:10 650 MG Potassium Bicarbonate 50 meq BID PEG 11/18/24 22:00 11/21/24 21:48 50 MEQ Enteral Nutritional Formula 1,000 ml 55ML/HR GT 11/19/24 15:00 11/19/24 19:25 1,000 ML Metoclopramide HCl 5 mg Q8HR IV 11/19/24 22:00 11/21/24 21:48 5 MG Lorazepam 1 mg ONCE PRN IV 11/20/24 10:30 Polyethylene Glycol 17 gm DAILY PO 11/22/24 10:00 laboratory and microbiology Laboratory Tests 11/22/24 03:00 Test 11/22/24 03:00 Range/Units Serum Glucose 94 74-106 mg/dL Assessment/Plan till in ICU, intubated and on pressure support. No Arrhythmia identified during this episodes. They are looking into possibility of Tracheostomy (maybe to be performed in [place]?) Cardiac arenas, patient is moderate risk patient for moderate risk tracheostomy. Avoid hypotension. Patient is a 54-year-old female who was brought to the hospital for witnessed syncope. She is intubated and is being managed in ICU. Information was obtained by reviewing the chart and communicating with patient's son (over the phone). Family recognized witnessed syncope and started CPR and called EMS. Reportedly, EMS found the patient in ventricular fibrillation and shocked the patient and brought the patient to the hospital. Patient was intubated in emergency room and transferred to ICU. Patient was on amiodarone drip. Later the patient had ventricular tachycardia (Systane). High sensitive troponin had been minimally/flatly elevated. Presentation was not in favor of acute coronary syndrome. Cardiology is involved for cardiac aspects of care. Intubated. On Vent. No JVD. Mucosa pale. No carotid bruit. Scattered rhonchi in the lungs is heard. Cardiac: Regular, no thrill. Systolic murmur 2/6 in apex is heard. Abdomen is soft. 3+ edema in extremities. Past medical history as per son: Congenital heart disease, status post bypass WBC: 14.5 - 11.9 - 18.8 - 20.0 - 21.2 - 14.3 - 10.3 - 8.9 - 9.2 - 11.1 - 12.1 - 10.8 - 12.0 - 9.9 - 15.4 - 14.8 - 12.1 - 10.5 - 5.8 - 5.3 - 4.2 - 5.8 - 4.1 - 7.0 - 9.3 - 8.3 - 11.5 - 8.4 - 8.4 - 5.4 - 5.7 - 8.4 - 7.4 - 6.2 - 6.7 - 13.9 - 11.7 - 10.1 - 8.8 - 10.7 - 13.9 - 10.6 - 11.5 - 9.6 Hemoglobin: 10.1 - 9.6 - 9.2 - 8.8 - 8.7 - 8.0 - 8.3 - 8.5 - 7.8 - 10.2 - 10.7 - 9.9 - 9.7 - 9.3 - 9.3 - 8.6 - 8.1 - 7.4 - 7.5 - 7.4 - 7.5 - 7.2 - 7.7 - 7.0 - (post PRBC transfusion) 10.4 - 10 - 9.5 - 10.0 - 9.2 - 9.8 -9.6 - 9.7 - 10.2 - 10.6 - 9.7 - 9.7 - 10.5 - 10.0 - 11.4 - 10.8 - 12.4 - 12.7 - 13.3 - 12.3 - 12.0 Creatinine: 0.95 - 0.93 - 0.87 - 0.83 - 0.83 - 0.76 - 0.68 - 0.72 - 0.79 - 0.76 - 0.80 - 0.84 - 0.61 - 0.65 - 0.74 - 0.64 - 0.73 - 0.82 - 0.88 - 1.03 - 0.99 - 0.85 - 0.87 - 0.79 - 1.12 - 1.15 - 1.04 - 0.96 - 0.94 - 0.93 - 0.78 - 0.71 - 0.68 - 0.61 - 0.59 - 0.49 - 0.39 - 0.54 - 0.48 - 0.76 - 0.93 - 0.78 - 0 078 - 0.68 - 0.70 - 0.56 -0.64 - 0.63 - 0.63 - 0.57 Potassium: 3.4 - 4.0 - 4.6 - 3.5 - 3.3 - 4.1 - 3.7 - 3.2 - 3.7 - 4.0 - 3.2 - 3.4 - 3.9 - 4.2 - 3.3 - 3.8 - 3.6 - 3.4 - 4.2 - 3.8 - 4.5 - 4.1 - 3.5 - 4.2 - 3.3 - 2.6 - 3.5 - 3.8 - 2.4 - 2.9 - 4.6 - 2.8 - 4.8 - 4.9 - 3.4 - 3.1 - 3.7 - 4.4 - 3.7 - 3.7 - 3.1 - 3.0 - 3.8 - 4.4 - 3.8 - 4.1 - 4.3 - 3.9 - 4.4 - 6.1 - 4.6 - 3.0 - 3.6 - 3.1 - 2.1 - 4.6 - 2.5 - 3.1 - 4.4 - 4.9 - 4.9 - 4.3 Magnesium: 2.0 - 1.6 - 2.0 - 3.0 - 1.5 - 1.9 - 2.1 - 1.8 - 2.0 - 1.9 - 1.9 - 2.6 - 2.0 - 1.8 - 1.6 - 2.0 - 2.2 - 1.9 - 2.3 - 2.2 - 2.2 - 2.1 - 2.1 - 1.9 2.7 - 2.6 - 2.3 - 2.4 - 2.5 - 2.3 - 2.5 - 2.3 - 2.3 - 2.4 - 2.1 - 1.9 - 2.2 - 2.1 - 2.0 - 2.4 - 2.2 - 2.0 - 2.0 - 1.6 - 2.0 - 2.0 - 2.0 - 2.1 Troponin (high sensitive): 141 - 138 - 117 BNP: 457.16 - 1073.91 - 928.14 AST/ALT: 32/11 - 19/13 - 538/168 - 293/152 - 131/130 - 78/94 - 68/74 - 48/57 - 27/38 - 15/23 - 20/18 - 23/17 - 29/16 - 27/13 - 34/17 - 73/49 - 41/43 - 30/47 - 30/42 - 29/42 - 17/27 - 160/87 - 900/478 - 986/571 - 382/436 - 110/244 - 42/170 - 22/113 - 16/77 - 15/59 - 19/50 - 20/41 - 16/32 - 17/30 - 14/25 - 25/38 - - /2337 - >6000/>6000 - 4665/>6000 - 2123/>6000 - 604/4207 - 203/2809 - 131/1787 Digoxin level: 2.83 - 1.25 - 0.98 UDS: non-revealing Chest x-ray revealed: Lines and Tubes: Endotracheal tube tip projects approximately 1.4 cm above the level of the tyler. Enteric catheter courses below the lateral of the diaphragm and terminates beyond the inferior margin of the image. Right internal jugular central venous catheter terminates within the distal superior vena cava. Lungs: Moderate diffuse increased prominence of the pulmonary vasculature without evidence of focal consolidation. Pleura: No effusion. No pneumothorax. Cardiomediastinal contours: Cardiomegaly. Bones: Unremarkable IMPRESSION: 1. Cardiomegaly and diffuse increased prominence of the pulmonary vasculature. 2. Lines and tubes as above. Repeat chest x-ray revealed: IMPRESSION: 1. Endotracheal tube tip 1.6 cm above the tyler; consider 2 cm retraction 2. Mild pulmonary vascular congestion. Moderate cardiomegaly. Repeat chest xry revealed: IMPRESSION: Endotracheal tube tip 1.6 cm above the tyler; consider 2 cm retraction Mild pulmonary vascular congestion. Moderate cardiomegaly. Repeat chest xry revealed: IMPRESSION: 1. Stable cardiomegaly, small left pleural effusion and mild diffuse increased prominence of the pulmonary vasculature. 2. Repositioned endotracheal tube as above. Remaining lines and tubes unchanged. Repeat chest xry revealed: IMPRESSION: 1. Cardiomegaly, stable diffuse increased prominence of the pulmonary vasculature and small bilateral pleural effusions. 2. Slight interval advancement of endotracheal tube as above. Remaining lines and tubes unchanged. Repeat chest xry revealed: IMPRESSION: 1. Slight interval decrease in diffuse increased prominence of the pulmonary vasculature. 2. Stable cardiomegaly and small left pleural effusion. 3. Lines and tubes unchanged. Repeat chest xry revealed: IMPRESSION: 1. Cardiomegaly and small left pleural effusion. 2. Lines and tubes unchanged. Repeat chest xry revealed: IMPRESSION: Stable lines and tubes. Similar lung aeration. Repeat chest xry revealed: IMPRESSION: Cardiomegaly and small left pleural effusion. Lines and tubes unchanged. Repeat chest xry revealed: IMPRESSION: Placement of a cardiac pacer, no pneumothorax is seen. Stable lines and tubes. Repeat chest xry revealed: IMPRESSION: 1. Worsening mixed opacities in the right lower lung. No other significant change from the previous study. Stable support devices. Repeat chest xry revealed: Heart is prominent in size with postsurgical changes, median sternotomy wires, and a single lead left cardiac defibrillator. Support lines and tubes appear unchanged in satisfactory in position. No sizable effusion or pneumothorax. Mild pulmonary vascular congestion. No significant interval change. Repeat chest xry revealed: IMPRESSION: 1. No significant change from the previous study. Stable support devices. Similar findings of heart failure including left pleural effusion. Repeat chest xry revealed: IMPRESSION: 1. No significant change from the previous study. Stable support devices. Similar findings of heart failure including trace left pleural effusion. Repeat chest xry revealed: Lines and Tubes: Unchanged. Left anterior chest wall cardiac pacing device. Lungs: Clear Pleura: No effusion. No pneumothorax. Cardiomediastinal contours: Cardiomegaly. Bones: Unremarkable IMPRESSION: 1. Cardiomegaly. 2. Lines and tubes unchanged. Repeat chest xry revealed: IMPRESSION: Lines and tubes in satisfactory position. No significant interval change. Repeat chest xry revealed: Lines and Tubes: ET tube and NG tube removed. Lungs: Congestion Pleura: No effusion. No pneumothorax. Cardiomediastinal contours: Cardiomegaly Bones: Unremarkable IMPRESSION: 1. Cardiomegaly with CHF. Repeat chest xry revealed: IMPRESSION: 1. Cardiomegaly. 2. Patchy bilateral airspace disease. Repeat chest xry revealed: FINDINGS: Lines and Tubes: None. Left anterior chest wall cardiac pacing device. Lungs: Extensive multifocal bilateral pulmonary airspace disease in a predominantly perihilar and bibasilar distribution with consolidative features. Pleura: No effusion. No pneumothorax. Cardiomediastinal contours: Poorly evaluated secondary to extensive bilateral infiltrate. Bones: Unremarkable IMPRESSION: 1. Extensive multifocal bilateral pulmonary airspace disease in a predominantly perihilar and bibasilar distribution with consolidative features. Repeat chest xry revealed: IMPRESSION: 1. Status post interval intubation. Endotracheal tube tip projects approximately 2.4 cm above the level of the tyler. 2. Grossly stable appearing moderate patchy multifocal bilateral pulmonary airspace disease with consolidative features. 3. Cardiomegaly. Repeat chest xry revealed: IMPRESSION: No significant interval change. Repeat chest xry revealed: IMPRESSION: No significant interval change Repeat chest xry revealed: IMPRESSION: 1. Interval retraction of the endotracheal tube such that the tip now projects approximately 4.5 cm above the level of the tyler. 2. Cardiomegaly. Repeat chest xry revealed: IMPRESSION: 1. Mild interval advancement of the endotracheal tube such that the tip now projects approximately 3.3 cm above the level of the tyler. 2. No evidence of acute cardiopulmonary process. Repeat chest xry revealed: IMPRESSION: Lines and tubes in satisfactory position. No significant interval change. Repeat chest xry revealed: IMPRESSION: 1. Interval advancement of endotracheal tube such that the tip now projects approximately 3.7 cm above the level of the tyler. Remaining lines and tubes unchanged. 2. Cardiomegaly. Repeat chest xry revealed: IMPRESSION: Unchanged pulmonary vascular congestion. Repeat chest xry revealed: IMPRESSION: No significant interval change. Gall Bladder Ultrasound revealed: IMPRESSION: Gallstones are noted. Hepatic steatosis Trace ascites Trace bilateral pleural effusions. Hepatic cirrhosis. Liver Ultrasound revealed: Hepatic steatosis. Trace right pleural effusion. Trace ascites Gallstones Bladder ultrasound revealed: IMPRESSION: 1. Cutler catheter in the bladder in the bladder is decompressed. Repeat Bladder Ultrasound revealed: Urinary bladder is unremarkable with prevoid volume of 29 mL. Urinary bladder wall measures 1.5 mm. Cutler catheter is noted. KUB revealed: IMPRESSION: Nonobstructive bowel gas pattern. Nasogastric tube tip in the stomach. Large stool burden. Repeat KUB revealed: Right lower extremity PICC line with tip projecting over the expected region of the intrahepatic IVC. Nasogastric tube projecting towards the distal stomach. Nonspecific bowel gas pattern. Cardiomegaly and left basilar airspace opacities, incompletely characterized. Atherosclerotic calcification disease. Repeat KUB revealed: IMPRESSION: 1. Nonspecific nonobstructive bowel gas pattern. 2. Gastrostomy tube projects over the midportion of the left hemiabdomen. 3. Right femoral approach central venous catheter as described above. Repeat KUB revealed: IMPRESSION: Nonobstructive bowel gas pattern. Right central venous catheter tip in the IVC Cutler catheter overlying the bladder. Left upper ext arterial duplex: IMPRESSION: No hemodynamically significant stenosis based on peak systolic velocity criteria. Left lower ext arterial duplex: IMPRESSION: There is no evidence for peripheral vascular insufficiency in the left lower extremity. No significant focal stenosis is identified. Liver Ultrasound revealed: Hepatic steatosis. Hepatomegaly. Cholelithiasis. CT of the head revealed: IMPRESSION: No acute intracranial abnormality. Repeat CT of head revealed: IMPRESSION: No acute intracranial abnormality. Repeat CT of Head revealed: IMPRESSION: No acute intracranial abnormality. Repeat CT of head revealed: IMPRESSION: 1. No acute intracranial abnormality. 2. No findings to suggest territorial ischemia. Echocardiogram reported: lvef 15-20% dilated LV severe global dysfunction mild RV dysfunction biatrial enlargement mild moderate MAC, moderate mitral regurg mild to moderate aortic regug (images of echo reviewed and questioned presence of mitral ring and also some component (moderate of Mitral stenosis) EKG revealed sinus rhythm Telemetry revealed occasions of atrial fibrillation. There was occasional sustained ventricular tachycardia. EMS tele monitor revealed ventricular fibrillation for which the patient was shocked. Has remained sinus rhythm. Later with A-fib with MVR LHC revealed: Patent RICHMOND to LAD; Patent SVG to obtuse marginal; LVEF of 20% with increased EDP; Proximal disease in LAD/LCX RICHIE was performed: Consistent with severely reduced LVEF. Consistent with previously implanted Mitral ring, Up to moderate Mitral stenosis/Mitral Regurgitation and also Moderate Aortic insufficiency. Patient is a 54-year-old female who presented with witnessed syncope. She was found to have ventricular fibrillation for which was shocked. Later had repeated episode of sustained ventricular tachycardia. Patient has been kept in ICU. Does have baseline history of coronary artery disease for which has had bypass surgery. Left heart catheterization was performed which revealed patent RICHMOND and patent SVG. ACS is not considered at this point. It is of note that the patient's echocardiogram reveals significantly use systolic function. Valvular heart disease is considered. Findings are in favor of previously implanted mitral ring. By reviewing the echo images, component of up to moderate mitral stenosis could not be ruled out. LHC was performed that ruled out any active specific ischemia as an etiology for presentation. Is off Amiodarone for abnormal LFT. Being followed by Nephrology / Pulmonary / Neurology / GI ID. Tele has remained sinus rhythm. Had episode of a-fib with RVR. Was loaded with Digoxin. Dig level was performed at wrong timing (only 5 hours after the last Dig given). Dig toxicity is not considered. Patient is back to normal sinus rhythm. Has good kidney function. Repeat Dig level is acceptable level. s/p ICD implantation by EP. Intubated, later extubated. s/p PEG. Later had respiratory failure and was taken back to ICU. Imaging question pneumonia (can it be aspiration?). Eventhough repeat BNP has not increased (decreased somehow), patient does have peripheral edema and component of acute on chronic Systolic heart failure could also contribute to respiratory failure. The site of ICD implantation was reviewed by EP (Dr Armstrong on 05/13/2024): healing well (personal communication). Had repeat respiratory failure, back in ICU and intubated. Abnormal LFT. Found to have gall stone and Liver cirrhosis Syncope V-fib s/p shock Sustained V-tach Paroxysmal A-fib VHD, s/p Mitral ring Systolic heart failure Abnormal LFT, at a point resolved, later appeared again s/p ICD (Biotronik) implantation by EP (Dr Armstrong) s/p PRBC transfusion for significant anemia Hepatic Steatosis Gallstones Failed Swallowing s/p PEG Acute respiratory failure Acute on chronic systolic heart failure Gallstone Liver cirrhosis Cardiac suggestion for management: Manage in ICU IV diuresis Follow up electrolytes and kidney function test and correct abnormalities Full anticoagulation (a-fib with high CHADS-Vasc score). s/p ICD implantation. On Eliquis On Mexiletine On Levo-Phed: keep MAP above 65 (for now off pressure support and tolerating) Was on Metoprolol to decrease risk of Vtach (as patient has ICD with bradycardia protection: may continue metoprolol in case of bradycardia, but hold: if hypotensive). For now will stop/hold Metoprolol May consider/add Esmolol for PVC/Vtach (if needed) Cardiac arenas, patient is moderate risk patient for moderate risk tracheostomy. Avoid hypotension. s/p ICD (Biotronik) implantation by EP [place]: 2.5 mg BID s/p PEG Pulmonary Follow up GI follow up Management of repeat respiratory failure, pneumonia as per primary team/pulmonary Provide previous medical records from reaching out to previous hospitals in [facility]... Further evaluation and management depends on the above and clinical course. A total of 75 minutes was spent reviewing the patient record, examining the patient, making a diagnostic and therapeutic plan, discussing this plan with medical personnel, following up on diagnostic studies and following the patient for clinical stability excluding any and all procedures. At least 50% of this time was spent in direct, [id number] contact. Thank you for allowing me to participate in this patient's care. Further recommendations will depend on patient's clinical course. Please do not hesitate to contact me if you have any questions or concerns. This medical document was created using electronic medical record system with [employer] computerized dictation system. Although this document has been carefully reviewed, there may still be some phonetic and typographical errors. These areas are purely typographical due to the imperfection of the software programs, and do not reflect any compromise in the patient's medical care. Dietary Evaluation Review Comments: 1) TF Jevity 1.2Cal @ 55 ml/hr. x 24hr along with Pro-stat 1 pk daily. Start @ 20ml/hr, increase 10ml/hr Q4H until goal is reached. TF @ goal volume provides 1684 kcal (100% energy needs), 88 gm protein (100% protein needs), 1065 ml free water. 2) Water flush 100ml Q4H if allowed, adjust PRN 3) Advance to cardiac diet as medically feasible 4) Monitor NPO status, lab values, wt trend, I/O Expected Outcomes/Goals: To meet >75% estimated needs within 7 days Lab values to improve Fu 2-3 days Plan discussed with: Other (nurse) CORDELL VERA MD Nov 22, 2024 07:26
--- NOTE | 2024-11-22 09:32 | DVHPN2 ---
Progress Note Date Seen: Nov 22, 2024 Resident Creating Document: ETHAN SWAN RESIDENT Has the PT tested + for MRSA If YES, has PT been informed?: No Medical Necessity Reason Pt with a Central, PICC or Fol: No The following are medically ne: PICC Line, Cutler Catheter Reason for cutler catheter: Strict I&O Subjective Review of Systems Patient seen and examined at bedside Last bowel movement last night Remains on Stone-Synephrine 40 mcg Currently on CPAP trial, awake but not following commands or tracking eyes entirely. Objective vital signs Vital Sign Date Time Temp Pulse Resp B/P (MAP) Pulse Ox O2 Delivery O2 Flow Rate FiO2 11/22/24 09:16 56 24 134/56 (82) 100 30 11/22/24 08:30 99.9 99.9 11/22/24 06:00 Mechanical Ventilator+ Total Intake and Output 11/21/24 11/21/24 11/22/24 15:00 23:00 07:00 Intake Total 290.00 ml 645.50 ml 477.5 ml Output Total 700 ml 1250 ml Balance 290.00 ml -54.50 ml -772.5 ml medications Current Medications Medications Dose Ordered Sig/Liliam Route Start Time Stop Time Status Last Admin Dose Admin Amino Acids 0 ml @ 0 mls/hr PER PHARMACY IV 10/15/24 18:45 Cancel Dextrose 50 ml UD IV 10/16/24 09:30 Cancel Vancomycin HCl 0 ml @ 0 mls/hr UD IV 10/19/24 14:00 Cancel Metoprolol Tartrate 2.5 mg Q6HPRN PRN IV 10/31/24 09:15 Amino Acids 0 ml @ 0 mls/hr PER PHARMACY IV 11/04/24 22:00 Cancel Amino Acid Protein 30 ml DAILY PO 11/04/24 10:00 11/20/24 10:46 30 ML Pantoprazole Sodium 40 mg BID IV 11/09/24 22:00 11/21/24 21:48 40 MG Mexiletine HCl 150 mg TID GT 11/10/24 22:00 11/22/24 05:08 150 MG Fat Emulsion Intravenous 150 ml/Sodium Acetate 20 meq/Potassium Acetate 30 meq/ Potassium Phosphate 19.8 meq/Calcium Gluconate 2.3 meq/ Magnesium Sulfate 4 meq/ Multivitamins 10 ml/Chromium/ Copper/Manganese/ Zinc 1 ml/Amino Acids/Dextrose/ Purified Water 1,596.4462 ml @ 66 mls/hr [id number] IV 11/11/24 22:00 11/12/24 21:59 Cancel Furosemide 40 mg BIDD IV 11/14/24 18:00 11/22/24 05:09 40 MG Phenylephrine HCl 250 ml @ 30 mls/hr Q8H20M IV 11/15/24 09:00 11/22/24 06:34 30 MLS/HR Propofol 100 ml @ 2.088 mls/ hr Q24H IV 11/15/24 11:30 Fentanyl Citrate 250 ml @ 2.5 mls/hr Q24H IV 11/15/24 11:45 11/19/24 23:02 2.5 MLS/HR Acetaminophen 650 mg Q4HR PRN GT 11/17/24 08:30 11/22/24 07:10 650 MG Potassium Bicarbonate 50 meq BID PEG 11/18/24 22:00 11/21/24 21:48 50 MEQ Enteral Nutritional Formula 1,000 ml 55ML/HR GT 11/19/24 15:00 11/19/24 19:25 1,000 ML Metoclopramide HCl 5 mg Q8HR IV 11/19/24 22:00 11/21/24 21:48 5 MG Lorazepam 1 mg ONCE PRN IV 11/20/24 10:30 Polyethylene Glycol 17 gm DAILY PO 11/22/24 10:00 Examination General Appearance: sedated, intubated Head Exam: Normal inspection. Constricted equal and reactive pupils Neck Exam: Normal inspection. Non-tender. Normal alignment Pulmonary/Respiratory: Chest non-tender. Trace crackles Abdominal Exam: Normal bowel sounds. Soft. Nontender Skin Exam: Normal inspection. Normal color. Warm. Dry laboratory and microbiology Laboratory Tests 11/22/24 03:00 Test 11/22/24 03:00 Range/Units Serum Glucose 94 74-106 mg/dL Microbiology Date/Time Source Procedure Growth Status 11/16/24 04:50 Urine - Cutler Port Urine Culture - Final Enterococcus faecium - VRE Complete 11/14/24 11:50 Sputum Endotracheal Wash Gram Stain - Final Complete 11/14/24 11:50 Sputum Endotracheal Wash Respiratory Culture - Final Complete 11/14/24 08:50 Blood Blood Culture - Final NO GROWTH AFTER 5 DAYS OF INCUBATION. Complete 11/14/24 04:30 Nose MRSA Screen - Final Complete Labs and/or images reviewed: Labs reviewed by me, Image(s) reviewed by me Problem List/Assessment/Plan Problem List/Assessment/Plan Acute hepatocellular injury likely shock liver Hepatic cirrhosis? Coagulopathy due to above Ventricular fibrillation S/p cardiopulmonary arrest with shock Heart failure with reduced ejection fraction 15-20% Metabolic versus hypoxic encephalopathy Cholelithiasis without acute inflammation Nonalcoholic fatty liver disease with steatohepatitis Community-acquired pneumonia growing Enterobacter Aspiration pnemonia? sepsis Plan: Discontinued free water Repeat 12 lead EKG continue antibiotic consider MRCP once stable Tapered hydrocortisone to q.12 hours on 11/06/2024 Tapered hydrocortisone to once daily on 11/13/2024 Discontinued hydrocortisone on 11/20/2024 s/p PEG tube placement monitor LFT's Keep PT/INR therapeutic Hemoglobin stable, transfuse if HB 7 or less Continue tube feedings at 20cc/hr Decreased metoclopramide to 5 mg IV b.i.d. JAIDEN positive, outpatient follow up with GI recommended for further workup Thank you so much for the opportunity to consult on your patient. GI team will follow the patient. In case of any questions or concerns please feel free to reach out. Plan discussed with Dr. Anglin Plan discussed with: Other (RN) My Orders My Orders Orders - ETHAN SWAN RESIDENT Procedure Category Date Status Time Polyethylene Glycol PHA 11/22/24 In Process 17g Powder (Miralax 10:00 Dietary Evaluation Review Comments: 1) TF Jevity 1.2Cal @ 55 ml/hr. x 24hr along with Pro-stat 1 pk daily. Start @ 20ml/hr, increase 10ml/hr Q4H until goal is reached. TF @ goal volume provides 1684 kcal (100% energy needs), 88 gm protein (100% protein needs), 1065 ml free water. 2) Water flush 100ml Q4H if allowed, adjust PRN 3) Advance to cardiac diet as medically feasible 4) Monitor NPO status, lab values, wt trend, I/O Expected Outcomes/Goals: To meet >75% estimated needs within 7 days Lab values to improve Fu 2-3 days ETHAN SWAN RESIDENT Nov 22, 2024 09:32
--- NOTE | 2024-11-22 10:17 | DVHPN2 ---
Progress Note - Dictate Date Seen: Nov 22, 2024 Has the PT tested + for MRSA If YES, has PT been informed?: No Medical Necessity Reason Pt with a Central, PICC or Fol: No The following are medically ne: PICC Line, Cutler Catheter Reason for cutler catheter: Strict I&O Subjective Ms. Smith is a 54 years old female who was brought to the [facility] on 10/07/2024 with a chief complaint of cardiopulmonary arrest/status post CPR. I have seen and examined the patient in the ICU, I have discussed with nurse. She is intubated, responsive to verbal stimuli, she does not follow my verbal commands She moves the arms, more on the left (not right) side She had PEG insert on 11/09/2024 Blood culture, 10/09/2024: No growth Blood culture, 10/19/2024: ABG, 11/04/2024 0220: Metabolic acidosis, 11/04/2024 0427: Metabolic acidosis UDS, 10/07/2024: Negative Urinalysis, 10/07/2024: Leukocyte esterase: Negative WBC/HB/PLT/MCV, 10/09/2024: 20/8.8/219/94.6, 10/10/2024: 21.2/8.7/232/92.2, 11/14/2024: 13.9/10.5/101/I04.1 PT/INR/PTT, 10/08/2024: 12.4/1.19/72.7, 10/09/2024: 13.1/1.26/68.9, 10/10/2024: 14.4/2/1.38/35.3 CMP, 10/08/2024: Unremarkable Troponin one high sensitivity, 10/07/2024: 141, 138, 117 TBI/AST/ALT/AP, 10/10/2024: 0.5/538/168/144, 10/11/2024: 0.6/293/199/152, 10/14/2024: 0.8/68/74/124 TG/HDL/LDL/HDL, 10/07/24: 71/66/31/21 EKG 10/10/2024: Atrial fibrillation EKG, 10/15/2024: Atrial fibrillation Echocardiogram, 10/07/2024: lvef 15-20% dilated LV severe global dysfunction mild RV dysfunction biatrial enlargement mild moderate MAC, moderate mitral regurg mild to moderate aortic regug RICHIE, 10/08/2024: 1. Left ventricle: Dilated LV was seen. LVEF was 25%. There was diffuse hypokinesis of left ventricle. 2. Right ventricle: RV was mildly dilated. 3. Left atrium: LA enlarged 4. Right atrium: RA was enlarged. 5. Mitral valve: Mitral was thickened with reduced opening. Moderate Mitral regurgitation was seen. Planinomentry of valve (TTE images also obtained) revealed MVA of 2.1 cm. Mean pressure gradient (obtained from limited TTE images) was 5. Images are consistent with previously implanted Ring in Mitral position. Consistent with up to Moderate Mitral stenosis. . There was no vegetation 6. Left atrial appendage: No evidence of thrombus. 7. Aortic valve: Trileaflet valve. No stenosis. Up to moderate Aortic Insufficiency was seen. There was no vegetation 8. Pulmonic valve: Trivial pulmonic insufficiency. No significant stenosis. 9. Tricuspid valve: Mild tricuspid regurgitation. There was no vegetation 10. Interatrial septum: Negative color flow for right to left shunt was observed. Bubble study was performed: negative for shunt 11. Pericardium: No significant effusion. 12. Thoracic aorta: No significant plaquing. Chest x-ray, 10/27/2024: 1. Cardiomegaly, stable diffuse increased prominence of the pulmonary vasculature and small bilateral pleural effusions. 2. Slight interval advancement of endotracheal tube as above. Remaining lines and tubes unchanged. CT head, 10/07/2024: No acute intracranial abnormality General: the patient is well developed and nourished. No acute distress. Intubated CT head, 10/07/2024: No acute intracranial abnormality. CT head, 10/11/2024: No acute intracranial abnormality CT head, 11/01/2024: As above, the other systems are negative CT head, 11/15/2024: 1. No acute intracranial abnormality. 2. No findings to suggest territorial ischemia. CT head, 11/21/2024: No acute intracranial abnormality seen. Large bilateral mastoid effusions. vital signs Vital Sign Date Time Temp Pulse Resp B/P (MAP) Pulse Ox O2 Delivery O2 Flow Rate FiO2 11/22/24 09:16 56 24 134/56 (82) 100 30 11/22/24 08:30 99.9 99.9 11/22/24 06:00 Mechanical Ventilator+ Total Intake and Output 11/21/24 11/21/24 11/22/24 15:00 23:00 07:00 Intake Total 290.00 ml 645.50 ml 477.5 ml Output Total 700 ml 1250 ml Balance 290.00 ml -54.50 ml -772.5 ml medications Current Medications Medications Dose Ordered Sig/Liliam Route Start Time Stop Time Status Last Admin Dose Admin Amino Acids 0 ml @ 0 mls/hr PER PHARMACY IV 10/15/24 18:45 Cancel Dextrose 50 ml UD IV 10/16/24 09:30 Cancel Vancomycin HCl 0 ml @ 0 mls/hr UD IV 10/19/24 14:00 Cancel Metoprolol Tartrate 2.5 mg Q6HPRN PRN IV 10/31/24 09:15 Amino Acids 0 ml @ 0 mls/hr PER PHARMACY IV 11/04/24 22:00 Cancel Amino Acid Protein 30 ml DAILY PO 11/04/24 10:00 11/20/24 10:46 30 ML Pantoprazole Sodium 40 mg BID IV 11/09/24 22:00 11/21/24 21:48 40 MG Mexiletine HCl 150 mg TID GT 11/10/24 22:00 11/22/24 05:08 150 MG Fat Emulsion Intravenous 150 ml/Sodium Acetate 20 meq/Potassium Acetate 30 meq/ Potassium Phosphate 19.8 meq/Calcium Gluconate 2.3 meq/ Magnesium Sulfate 4 meq/ Multivitamins 10 ml/Chromium/ Copper/Manganese/ Zinc 1 ml/Amino Acids/Dextrose/ Purified Water 1,596.4462 ml @ 66 mls/hr [id number] IV 11/11/24 22:00 11/12/24 21:59 Cancel Furosemide 40 mg BIDD IV 11/14/24 18:00 11/22/24 05:09 40 MG Phenylephrine HCl 250 ml @ 30 mls/hr Q8H20M IV 11/15/24 09:00 11/22/24 06:34 30 MLS/HR Propofol 100 ml @ 2.088 mls/ hr Q24H IV 11/15/24 11:30 Fentanyl Citrate 250 ml @ 2.5 mls/hr Q24H IV 11/15/24 11:45 11/19/24 23:02 2.5 MLS/HR Acetaminophen 650 mg Q4HR PRN GT 11/17/24 08:30 11/22/24 07:10 650 MG Potassium Bicarbonate 50 meq BID PEG 11/18/24 22:00 11/21/24 21:48 50 MEQ Enteral Nutritional Formula 1,000 ml 55ML/HR GT 11/19/24 15:00 11/19/24 19:25 1,000 ML Metoclopramide HCl 5 mg Q8HR IV 11/19/24 22:00 11/21/24 21:48 5 MG Lorazepam 1 mg ONCE PRN IV 11/20/24 10:30 Polyethylene Glycol 17 gm DAILY PO 11/22/24 10:00 objective The patient is well-nourished and well-developed with no distress. Intubated MENTAL STATUS: Subjective CRANIAL NERVES: Pupils are equal, round and reactive. This corneal reflex and doll's eye phenomena. No some facial weakness, she has gag reflexes. SENSATION: Okay to light touch and painful stimuli MOTOR: Normal tone in the upper and lower extremity. Normal muscle bulk. No fasciculations. Subjective REFLEXES: Deep tendon reflexes are symmetrical. No pathological reflexes. CEREBELLAR/COORDINATION: Deferred GAIT/STATION: deferred. laboratory and microbiology Laboratory Tests 11/22/24 03:00 Test 11/22/24 03:00 Range/Units Serum Glucose 94 74-106 mg/dL Problem List Cardiopulmonary arrest Status post CPR Reintubated on 11/14/2024 Metabolic encephalopathy Hypoxic encephalopathy Congestive heart failure Leukocytosis/sepsis/septic shock Respiratory failure Elevated liver function tests AFib S/P pacemaker insertion on 10/17/2024 ? Chronic organic brain syndrome ? Right arm weakness rule out stroke Assessment/Plan Monitoring Supportive treatment ICU care Stabilize vitals/pressor drip Respiratory support/ vent management Oxygen DVT prophylaxis GI prophylaxis Cardiology on case Pulmonology on case Nephrology on case Need more history This medical document was created using an electronic medical record system with [employer] system. Although this document has been carefully reviewed, there may still be some phonetic and typographical errors. These areas are purely typographical due to imperfections of the software programs, and do not reflect any compromise in the patient's medical care. Prognosis guarded Dietary Evaluation Review Comments: 1) TF Jevity 1.2Cal @ 55 ml/hr. x 24hr along with Pro-stat 1 pk daily. Start @ 20ml/hr, increase 10ml/hr Q4H until goal is reached. TF @ goal volume provides 1684 kcal (100% energy needs), 88 gm protein (100% protein needs), 1065 ml free water. 2) Water flush 100ml Q4H if allowed, adjust PRN 3) Advance to cardiac diet as medically feasible 4) Monitor NPO status, lab values, wt trend, I/O Expected Outcomes/Goals: To meet >75% estimated needs within 7 days Lab values to improve Fu 2-3 days Plan discussed with: Other CAROLINE ROBB MD Nov 22, 2024 10:17
[2024-11-22] MEDS: POLYETHYLENE GLYCOL 17 GM PWDR PO SCH (10:46)
[2024-11-22 12:03] LABS: Base Excess 12.0 mmol/L (-2.0-3.0)
--- NOTE | 2024-11-22 13:13 | DVHDS2 ---
Discharge Summary Date of Admission Oct 07, 2024 at 09:56 Date of Discharge: Nov 22, 2024 Labs/Diagnostic Data: Laboratory Results Test 11/22/24 11:53 11/22/24 06:32 11/22/24 03:00 11/21/24 03:12 Blood Gas Specimen Type Arterial Blood Gas Sample Site Right brachial Blood Gas Patient Temperature 37.0 Arterial Blood Date Drawn [id number] Arterial Blood pH 7.508 (7.350-7.450) Arterial Blood Partial Pressure CO2 47.0 mmHg (32.0-45.0) Arterial Blood Partial Pressure O2 99.7 mmHg (83.0-108.0) Arterial Blood HCO3 36.5 mmol/L (21.0-28.0) Arterial Blood Oxygen Saturation 97.6 % (94.0-98.0) Arterial Blood Base Excess 12.0 mmol/L (-2.0-3.0) Arterial Blood Oxyhemoglobin 95.9 % (94.0-98.0) Arterial Blood Carboxyhemoglobin 1.5 % (0.5-1.5) Arterial Blood Methemoglobin 0.2 % (0.0-1.5) Trung Test N/a Blood Gas Total Hemoglobin 12.10 g/dL (12.0-16.0) Blood Gas Modality Vent - cpap Blood Gas Spontaneous Rate 25 FiO2 % 30.0 Blood Gas Tidal Volume 450.0 Blood Gas Pressure Support 10 Blood Gas PEEP or CPAP 5.0 Blood Gas Comments Blood Gas Set Respiration Rate 16.0 White Blood Count 9.6 10^3/uL (4.4-10.8) Red Blood Count 3.95 10^6/uL (4.0-5.20) Hemoglobin 12.0 g/dL (12.2-16.2) Hematocrit 37.4 % (36.0-46.0) Mean Corpuscular Volume 94.7 fL (80.0-100.0) Mean Corpuscular Hemoglobin 30.3 pg (28.0-32.0) Mean Corpuscular Hemoglobin Concent 32.0 g/dL (32.0-36.0) Red Cell Distribution Width 24.2 % (11.8-14.3) Platelet Count 121 10^3/uL (140-450) Mean Platelet Volume 10.4 fL (6.9-10.8) Neutrophils (%) (Auto) 81.3 % (37.0-80.0) Lymphocytes (%) (Auto) 12.1 % (10.0-50.0) Monocytes (%) (Auto) 5.7 % (0.0-12.0) Eosinophils (%) (Auto) 0.7 % (0.0-7.0) Basophils (%) (Auto) 0.2 % (0.0-2.0) Neutrophils # (Auto) 7.8 10 ^3/uL (1.6-8.6) Lymphocytes # (Auto) 1.2 10 ^3/uL (0.4-5.4) Monocytes # (Auto) 0.6 10 ^3/uL (0-1.3) Eosinophils # (Auto) 0.1 10 ^3/uL (0-0.8) Basophils # (Auto) 0 10 ^3/uL (0-0.2) Nucleated Red Blood Cells 0.1 % Sodium Level 145 mmol/L (136-145) Potassium Level 4.3 mmol/L (3.5-5.1) Chloride Level 99 mmol/L (98-107) Carbon Dioxide Level 38 mmol/L (20-31) Anion Gap 8 (5-15) Blood Urea Nitrogen 23 mg/dL (9-23) Creatinine 0.57 mg/dL (0.550-1.02) Glomerular Filtration Rate Calc 107 mL/min (>90) BUN/Creatinine Ratio 40.4 (10.0-20.0) Serum Glucose 94 mg/dL (74-106) Calcium Level 8.6 mg/dL (8.7-10.4) Magnesium Level 2.1 mg/dL (1.6-2.6) Total Bilirubin 1.9 mg/dL (0.2-1.0) Aspartate Amino Transferase (AST) 64 U/L (13-40) Alanine Aminotransferase (ALT) 898 U/L (7-40) Alkaline Phosphatase 252 U/L (46-116) Total Protein 5.0 g/dL (5.7-8.2) Albumin 2.7 g/dL (3.2-4.8) Test 11/20/24 13:55 11/19/24 03:08 11/18/24 07:05 11/15/24 12:11 Prothrombin Time 14.5 sec (9.3-11.8) Prothrombin Time INR 1.42 (0.9-1.15) Activated Partial Thromboplast Time 28.8 SEC (24.5-34.5) Direct Bilirubin 1.9 mg/dL (<0.3) Blood Gas Critical Value Read Back Yes Blood Gas Notified Whom veda Bautista md Blood Gas Notified Time [id number] Blood Gas Notified By luz marina Bertrand music composition teacher Ammonia 30 umol/L (11-32) Test 11/15/24 04:00 11/14/24 09:27 11/14/24 05:59 11/14/24 03:39 Urine Color Yellow (Yellow) Urine Clarity Turbid (Clear) Urine pH 5.0 (5.0-9.0) Urine Specific Ponce 1.012 (1.001-1.035) Urine Protein Trace (Negative) Urine Ketones Negative (Negative) Urine Blood 2+ /uL (Negative) Urine Nitrite Negative (Negative) Urine Bilirubin Negative (Negative) Urine Urobilinogen Normal mg/dL (Negative) Urine Leukocyte Esterase 1+ /uL (Negative) Urine RBC 3 /hpf (0 - 4) Urine Microscopic WBC 14 /HPF (0-5) Urine Squamous Epithelial Cells Few /hpf (<5) Urine Calcium Oxalate Crystals Few (None Seen) Urine Amorphous Crystals Few /hpf (None Seen) Urine Bacteria Few /hpf (None Seen) Urine Hyaline Casts Mod /lpf (0 - 2) Urine Mucus Few (None Seen) Urine Glucose Normal mg/dL (Normal) Influenza Type A Antigen Negative (Negative) Influenza Type B Antigen Negative (Negative) SARS-CoV-2 Antigen (Rapid) Negative (NEGATIVE) POC Glucose 98 mg/dl (70-106) Differential Total Cells Counted 100.0 (100) Neutrophils % (Manual) 78 (37.0-80.0) Band Neutrophils % (Manual) 4 Lymphocytes % (Manual) 14 (10.0-50.0) Monocytes % (Manual) 4 (0-12) Eosinophils % (Manual) 0 (0-7) Basophils % (Manual) 0 (0.0-2.0) Metamyelocytes % (manual) 0 Myelocytes % (Manual) 0 Promyelocytes % (Manual) 0 Blast Cells % (Manual) 0 Reactive Lymphocytes 0 Platelet Estimate Decreased Anisocytosis (manual) Slight Macrocytosis Slight B-Type Natriuretic Peptide 928.14 pg/mL (0-100) Test 11/14/24 02:20 11/13/24 02:30 11/11/24 05:43 11/09/24 04:52 Blood Gas Liter Flow 15.00 Stool for White Cells None seen Phosphorus Level 3.0 mg/dL (2.4-5.1) Triglycerides Level 72 mg/dL (< 150) Test 11/01/24 04:00 10/30/24 14:56 10/24/24 03:43 10/21/24 13:10 Prealbumin 14.6 md/dL (10.0-40.0) Anti-Nuclear Antibody Screen Positive (Negative) Ferritin 698.0 ng/mL (10-291) Vancomycin Level Trough 17.1 ug/mL (5-10) Test 10/19/24 14:52 10/17/24 02:45 10/16/24 02:40 10/15/24 03:09 Lactic Acid Level 2.9 mmol/L (0.4-2.0) Polychromasia Slight Digoxin Level 0.98 ng/mL (0.8-2) Tear Drop Cells Few Poikilocytosis (manual) Slight Test 10/11/24 03:23 10/09/24 22:25 10/07/24 22:13 10/07/24 14:09 Hemoglobin A 97.5 % (96.4-98.8) Hemoglobin A2 2.5 % (1.8-3.2) Hemoglobin F () 0.0 % (0.0-2.0) Hemoglobin S 0.0 % (0.0) Hemoglobin Electrophoresis Interp Comment (.) Serum Immunoglobulin G 1149 mg/dL (586-1602) Immunoglobulin A 210 mg/dL (87-352) Immunoglobulin M 186 mg/dL (26-217) Serum Immunofixation Comment (.) Free [place] Light Chains, Quant 49.1 mg/L (3.3-19.4) Free [place]/Lambda Light Chain Ratio 1.54 (0.26-1.65) Hepatitis A IgM Antibody Negative Hepatitis B Surface Antigen Negative (Negative) Hepatitis B Core IgM Antibody Negative (Negative) Hepatitis C Antibody Negative (Negative) Urine Creatinine 31.20 mg/dL (30.0-125.0) Urine Protein/Creatinine Ratio 0.72 Urine Sodium 79 mmol/L (40-220) Urine Total Protein 22.5 mg/dL (1-14) Blood Gas Spontaneous Tidal Volume 488 Troponin I High Sensitivity 117 ng/L (</=34) Test 10/07/24 10:56 10/07/24 06:17 Cholesterol Level 66 mg/dL (< 200) LDL Cholesterol 31 mg/dL (< 100) HDL Cholesterol 21 mg/dL (40-59) Urine Opiates Screen Neg (NEGATIVE) Urine Fentanyl Screen Neg (NEGATIVE) Urine Barbiturates Screen Neg (NEGATIVE) Urine Phencyclidine Screen Neg (NEGATIVE) Urine Amphetamines Screen Neg (NEGATIVE) Urine Benzodiazepines Screen Neg (NEGATIVE) Urine Cocaine Screen Neg (NEGATIVE) Urine Cannabinoids Screen Neg (NEGATIVE) Other Laboratory Tests 11/22/24 03:00 Final Diagnosis/Problems List s/p cardiac arrest/v fib s/p aicd acute hypoxic resp failure sepsis due to enterobacter pneumonia deconditioned state failed swallow eval, s/p peg tube placement Discharge Disposition: Acute Care Facility Discharge Instruct/Medications Diet: See Comment Diet comment: Tube feeds Activity: No Restrictions, As Tolerated Discharge Statement: "Patient was advised to return to the ER or call 911 if any headaches, dizziness, shortness of breath, chest pain, abdominal pain, bleeding, fevers, or worsening of medical condition. Patient was counseled about treatment plan, medications, possible side effects, patientverbalized understanding. All questions were answered to the best of my ability. This discharge took greater then 30 minutes in planning, reviewing documentation, counseling the patient, and discussing with other team members." ASSESSMENT ASSESSMENT Assessment s/p cardiac arrest/v fib s/p aicd acute hypoxic resp failure sepsis due to enterobacter pneumonia deconditioned state failed swallow eval, s/p peg tube placement BRODIE GARVIN NP Nov 22, 2024 13:13
--- NOTE | 2024-11-22 15:16 | DVHPN2 ---
Progress Note Date Seen: Nov 22, 2024 Has the PT tested + for MRSA If YES, has PT been informed?: No Medical Necessity Reason Pt with a Central, PICC or Fol: No The following are medically ne: PICC Line, Cutler Catheter Reason for cutler catheter: Strict I&O Objective vital signs Vital Sign Date Time Temp Pulse Resp B/P (MAP) Pulse Ox O2 Delivery O2 Flow Rate FiO2 11/22/24 14:00 61 24 102/49 (66) 99 30 11/22/24 08:30 99.9 99.9 11/22/24 06:00 Mechanical Ventilator+ Total Intake and Output 11/21/24 11/21/24 11/22/24 15:00 23:00 07:00 Intake Total 290.00 ml 645.50 ml 477.5 ml Output Total 700 ml 1250 ml Balance 290.00 ml -54.50 ml -772.5 ml medications Current Medications Medications Dose Ordered Sig/Liliam Route Start Time Stop Time Status Last Admin Dose Admin Amino Acids 0 ml @ 0 mls/hr PER PHARMACY IV 10/15/24 18:45 Cancel Dextrose 50 ml UD IV 10/16/24 09:30 Cancel Vancomycin HCl 0 ml @ 0 mls/hr UD IV 10/19/24 14:00 Cancel Metoprolol Tartrate 2.5 mg Q6HPRN PRN IV 10/31/24 09:15 Amino Acids 0 ml @ 0 mls/hr PER PHARMACY IV 11/04/24 22:00 Cancel Amino Acid Protein 30 ml DAILY PO 11/04/24 10:00 11/22/24 10:56 30 ML Pantoprazole Sodium 40 mg BID IV 11/09/24 22:00 11/22/24 10:45 40 MG Mexiletine HCl 150 mg TID GT 11/10/24 22:00 11/22/24 13:43 150 MG Fat Emulsion Intravenous 150 ml/Sodium Acetate 20 meq/Potassium Acetate 30 meq/ Potassium Phosphate 19.8 meq/Calcium Gluconate 2.3 meq/ Magnesium Sulfate 4 meq/ Multivitamins 10 ml/Chromium/ Copper/Manganese/ Zinc 1 ml/Amino Acids/Dextrose/ Purified Water 1,596.4462 ml @ 66 mls/hr [id number] IV 11/11/24 22:00 11/12/24 21:59 Cancel Furosemide 40 mg BIDD IV 11/14/24 18:00 11/22/24 05:09 40 MG Phenylephrine HCl 250 ml @ 30 mls/hr Q8H20M IV 11/15/24 09:00 11/22/24 06:34 30 MLS/HR Fentanyl Citrate 250 ml @ 2.5 mls/hr Q24H IV 11/15/24 11:45 11/19/24 23:02 2.5 MLS/HR Acetaminophen 650 mg Q4HR PRN GT 11/17/24 08:30 11/22/24 07:10 650 MG Potassium Bicarbonate 50 meq BID PEG 11/18/24 22:00 11/22/24 10:46 50 MEQ Enteral Nutritional Formula 1,000 ml 55ML/HR GT 11/19/24 15:00 11/19/24 19:25 1,000 ML Metoclopramide HCl 5 mg Q8HR IV 11/19/24 22:00 11/22/24 13:43 5 MG Lorazepam 1 mg ONCE PRN IV 11/20/24 10:30 Polyethylene Glycol 17 gm DAILY PO 11/22/24 10:00 11/22/24 10:46 17 GM Examination: GENERAL:Abnormal, LUNGS:Abnormal laboratory and microbiology Laboratory Tests 11/22/24 03:00 Test 11/22/24 03:00 Range/Units Serum Glucose 94 74-106 mg/dL Microbiology Date/Time Source Procedure Growth Status 11/16/24 04:50 Urine - Cutler Port Urine Culture - Final Enterococcus faecium - VRE Complete 11/14/24 11:50 Sputum Endotracheal Wash Gram Stain - Final Complete 11/14/24 11:50 Sputum Endotracheal Wash Respiratory Culture - Final Complete 11/14/24 08:50 Blood Blood Culture - Final NO GROWTH AFTER 5 DAYS OF INCUBATION. Complete 11/14/24 04:30 Nose MRSA Screen - Final Complete Problem List/Assessment/Plan Problem List/Assessment/Plan BARBIE-hemodynamic mediated etiology proteinuria Cardiac arrest status post V-tach chfref ef 15-20 on eliquis VDRF acute respiratory failure renal function has normalized , electrolytes have normalized k replace prn lasix q 12 , extra dose today monitor for tolerance We will follow renal function closely possible ltac transfer Plan discussed with: Other Dietary Evaluation Review Comments: 1) TF Jevity 1.2Cal @ 55 ml/hr. x 24hr along with Pro-stat 1 pk daily. Start @ 20ml/hr, increase 10ml/hr Q4H until goal is reached. TF @ goal volume provides 1684 kcal (100% energy needs), 88 gm protein (100% protein needs), 1065 ml free water. 2) Water flush 100ml Q4H if allowed, adjust PRN 3) Advance to cardiac diet as medically feasible 4) Monitor NPO status, lab values, wt trend, I/O Expected Outcomes/Goals: To meet >75% estimated needs within 7 days Lab values to improve Fu 2-3 days ROSITA QUIGLEY MD Nov 22, 2024 15:16
--- NOTE | 2024-11-22 20:13 | DVHPN2 ---
Progress Note - Dictate Date Seen: Nov 22, 2024 Has the PT tested + for MRSA If YES, has PT been informed?: No Medical Necessity Reason Pt with a Central, PICC or Fol: No The following are medically ne: PICC Line, Cutler Catheter Reason for cutler catheter: Strict I&O vital signs Vital Sign Date Time Temp Pulse Resp B/P (MAP) Pulse Ox O2 Delivery O2 Flow Rate FiO2 11/22/24 19:30 58 19 107/53 99 30 11/22/24 17:50 Mechanical Ventilator+ 11/22/24 16:00 98.6 98.6 Total Intake and Output 11/21/24 11/21/24 11/22/24 15:00 23:00 07:00 Intake Total 290.00 ml 645.50 ml 477.5 ml Output Total 700 ml 1250 ml Balance 290.00 ml -54.50 ml -772.5 ml medications Current Medications Medications Dose Ordered Sig/Liliam Route Start Time Stop Time Status Last Admin Dose Admin Amino Acids 0 ml @ 0 mls/hr PER PHARMACY IV 10/15/24 18:45 Cancel Dextrose 50 ml UD IV 10/16/24 09:30 Cancel Vancomycin HCl 0 ml @ 0 mls/hr UD IV 10/19/24 14:00 Cancel Metoprolol Tartrate 2.5 mg Q6HPRN PRN IV 10/31/24 09:15 Amino Acids 0 ml @ 0 mls/hr PER PHARMACY IV 11/04/24 22:00 Cancel Amino Acid Protein 30 ml DAILY PO 11/04/24 10:00 11/22/24 10:56 30 ML Pantoprazole Sodium 40 mg BID IV 11/09/24 22:00 11/22/24 10:45 40 MG Mexiletine HCl 150 mg TID GT 11/10/24 22:00 11/22/24 13:43 150 MG Fat Emulsion Intravenous 150 ml/Sodium Acetate 20 meq/Potassium Acetate 30 meq/ Potassium Phosphate 19.8 meq/Calcium Gluconate 2.3 meq/ Magnesium Sulfate 4 meq/ Multivitamins 10 ml/Chromium/ Copper/Manganese/ Zinc 1 ml/Amino Acids/Dextrose/ Purified Water 1,596.4462 ml @ 66 mls/hr [id number] IV 11/11/24 22:00 11/12/24 21:59 Cancel Furosemide 40 mg BIDD IV 11/14/24 18:00 11/22/24 18:21 40 MG Phenylephrine HCl 250 ml @ 30 mls/hr Q8H20M IV 11/15/24 09:00 11/22/24 06:34 30 MLS/HR Fentanyl Citrate 250 ml @ 2.5 mls/hr Q24H IV 11/15/24 11:45 11/19/24 23:02 2.5 MLS/HR Acetaminophen 650 mg Q4HR PRN GT 11/17/24 08:30 11/22/24 07:10 650 MG Potassium Bicarbonate 50 meq BID PEG 11/18/24 22:00 11/22/24 10:46 50 MEQ Enteral Nutritional Formula 1,000 ml 55ML/HR GT 11/19/24 15:00 11/19/24 19:25 1,000 ML Metoclopramide HCl 5 mg Q8HR IV 11/19/24 22:00 11/22/24 13:43 5 MG Lorazepam 1 mg ONCE PRN IV 11/20/24 10:30 Polyethylene Glycol 17 gm DAILY PO 11/22/24 10:00 11/22/24 10:46 17 GM objective HEENT: EOMI, PERRLA, normal external inspect of ears, no icterus, no nasal drainage Neck: no carotid bruit, no jugular venous distention (JVD), no lymphadenopathy Chest: normal thorax Respiratory: Intubated, clear to auscultation, normal air movement Cardiovascular: regular rate and rhythm, no diastolic murmur, no jugular venous distention (JVD), no rub, no systolic murmur Abdominal: soft, no hepatomegaly, no mass, no splenomegaly, no tenderness Genitourinary: grossly normal external Musculoskeletal: no joint tenderness, no swelling Extremities: normal pulses, no calf tenderness, no clubbing, no cyanosis, no edema Skin: no bruising, no jaundice, no rash Neurological: No focal deficit laboratory and microbiology Laboratory Tests 11/22/24 03:00 Test 11/22/24 03:00 Range/Units Serum Glucose 94 74-106 mg/dL Problem List Cardiac Arrest with Ventricular Fibrillation Assessment: Patient experienced cardiac arrest with ventricular fibrillation on 10/07/24, witnessed by family members who initiated CPR. EMS found the patient in ventricular fibrillation and administered shock therapy. Rhythm strip analysis confirmed ventricular fibrillation. Patient required intubation and sedation upon ED arrival. Currently admitted to ICU for close observation. Cardiology has been consulted and plans for AICD placement, likely on Tuesday. Infectious disease clearance has been obtained for the AICD procedure, addressing initial concerns of leukocytosis which is now improving. Status post-cardiac arrest. Plan: - Continue ICU monitoring - Proceed with AICD placement as planned (likely Tuesday), cleared by infectious disease. - Maintain intubation and sedation until AICD placement - Continue Heparin drip for paroxysmal atrial fibrillation - Continue Mexitil - DC amiodarone due to transaminitis - added esmolol drip per Cardiology for AFib and added push doses of digoxin Coronary Artery Disease Assessment: Patient with history of 2-vessel CABG (Coronary Artery Bypass Grafting). Surgical intervention previously performed to address significant coronary artery stenosis. Plan: - Continue medical management - Follow up with cardiology for ongoing coronary artery disease management Acute and Chronic Systolic Heart Failure Assessment: Patient has acute and chronic systolic heart failure with severely reduced left ventricular function. Ejection fraction is estimated at 15-20%. RICHIE findings are consistent with severely reduced left ventricular ejection fraction, previously implanted mitral ring, up to moderate mitral stenosis and regurgitation, and moderate aortic insufficiency. Plan: - Continue cardiology consultation - continue IV diuretics (IV Lasix) - Monitor renal function Acute Hypoxic Respiratory Failure Assessment: Patient is currently intubated due to acute hypoxic respiratory failure. Dr. Downey from pulmonology is managing this aspect of care. Plan: - Maintain current intubation as per pulmonology recommendation - Proceed with CPAP trials when deemed appropriate by pulmonology Transaminitis Assessment: Patient has elevated liver function tests, likely secondary to amiodarone use. Cardiology has discontinued amiodarone in response. Plan: - Monitor liver function tests - Amiodarone discontinued as per cardiology Enterobacter PNA Assessment: Sputum culture positive for Enterobacter. Plan: - Continue treatment with Eratapenem to complete 10 days regimen -Infectious disease consult Hemodynamic Support Assessment: Patient requires vasopressor support for hemodynamic stability. Plan: - Continue vasopressin - Continue neosynephrine Paroxysmal a fib -DC amiodarone -continue with heparin gtt Shock liver GI consult, trend liver enzymes, hepatitis panel was negative. Ultrasound of the liver had no acute findings. Assessment/Plan Subjective: Patient is currently off sedation, undergoing spontaneous breathing trials. Objective: Patient was reintubated for acute hypoxic respiratory failure and pneumonia. Patient is positive for VRE. Most likely she has aspiration pneumonia. Patient originally was admitted status post cardiac arrest. She is status post AICD placement. Patient had sepsis with Enterobacter pneumonia. Currently on Stone- Synephrine for blood pressure support. Plan: Continue fentanyl as needed for pain. Plan to transfer to [facility] for rehab and tracheostomy. Dietary Evaluation Review Comments: 1) TF Jevity 1.2Cal @ 55 ml/hr. x 24hr along with Pro-stat 1 pk daily. Start @ 20ml/hr, increase 10ml/hr Q4H until goal is reached. TF @ goal volume provides 1684 kcal (100% energy needs), 88 gm protein (100% protein needs), 1065 ml free water. 2) Water flush 100ml Q4H if allowed, adjust PRN 3) Advance to cardiac diet as medically feasible 4) Monitor NPO status, lab values, wt trend, I/O Expected Outcomes/Goals: To meet >75% estimated needs within 7 days Lab values to improve Fu 2-3 days Plan discussed with: Patient, Other BRODIE GARVIN MACHINE BASTER Nov 22, 2024 20:13
--- NOTE | 2024-11-22 22:56 | DVHPN2 ---
Subjective DOS: 11/22/2024 Patient seen and examined at bedside. Intubated on mechanical ventilator. Overnight events reviewed. Changes from previous H/P or p: No Changes Objective Vitals Vital Signs Date Time Temp Pulse Resp B/P (MAP) Pulse Ox O2 Delivery O2 Flow Rate FiO2 11/22/24 22:17 55 19 114/39 (64) 100 30 11/22/24 17:50 Mechanical Ventilator+ 11/22/24 16:00 98.6 98.6 Intake/Output Intake and Output 11/22/24 07:00 Intake Total 1413.00 ml Output Total 1950 ml Balance -537.00 ml Intake Oral 100 ml IV Total 800.00 ml Tube Feeding 513 ml Output Urine Total 1950 ml # Voids 1 Exam Gen.: Patient lying in bed in medical ICU. Intubated on mechanical ventilator. Head: Normocephalic, atraumatic. Eyes: PERRLA. Ears: Normal external anatomy. Throat: Endotracheal tube and orogastric tube in place. Neck: Supple, trachea midline. Chest: Transmitted breath sounds bilaterally. Decreased air entry bilaterally. No wheezing. Bibasilar crackles. Cardiovascular: Positive S1, positive S2. Regular rate and rhythm. Abdomen: Positive bowel sounds in all 4 quadrants. Soft, nontender, nondistended. : [place] in place. Normal external genitalia. Rectal: Deferred. Skin: Warm, dry. Intact. Extremities: 2+ radial pulses bilaterally. No lower extremity edema. Neuro: Off sedation Medications Current Medications Medications Dose Ordered Sig/Liliam Route Start Time Stop Time Status Last Admin Dose Admin Amino Acids 0 ml @ 0 mls/hr PER PHARMACY IV 10/15/24 18:45 Cancel Dextrose 50 ml UD IV 10/16/24 09:30 Cancel Vancomycin HCl 0 ml @ 0 mls/hr UD IV 10/19/24 14:00 Cancel Metoprolol Tartrate 2.5 mg Q6HPRN PRN IV 10/31/24 09:15 Amino Acids 0 ml @ 0 mls/hr PER PHARMACY IV 11/04/24 22:00 Cancel Amino Acid Protein 30 ml DAILY PO 11/04/24 10:00 11/22/24 10:56 30 ML Pantoprazole Sodium 40 mg BID IV 11/09/24 22:00 11/22/24 10:45 40 MG Mexiletine HCl 150 mg TID GT 11/10/24 22:00 11/22/24 13:43 150 MG Fat Emulsion Intravenous 150 ml/Sodium Acetate 20 meq/Potassium Acetate 30 meq/ Potassium Phosphate 19.8 meq/Calcium Gluconate 2.3 meq/ Magnesium Sulfate 4 meq/ Multivitamins 10 ml/Chromium/ Copper/Manganese/ Zinc 1 ml/Amino Acids/Dextrose/ Purified Water 1,596.4462 ml @ 66 mls/hr [id number] IV 11/11/24 22:00 11/12/24 21:59 Cancel Furosemide 40 mg BIDD IV 11/14/24 18:00 11/22/24 18:21 40 MG Phenylephrine HCl 250 ml @ 30 mls/hr Q8H20M IV 11/15/24 09:00 11/22/24 20:43 30 MLS/HR Fentanyl Citrate 250 ml @ 2.5 mls/hr Q24H IV 11/15/24 11:45 11/19/24 23:02 2.5 MLS/HR Acetaminophen 650 mg Q4HR PRN GT 11/17/24 08:30 11/22/24 07:10 650 MG Potassium Bicarbonate 50 meq BID PEG 11/18/24 22:00 11/22/24 10:46 50 MEQ Enteral Nutritional Formula 1,000 ml 55ML/HR GT 11/19/24 15:00 11/19/24 19:25 1,000 ML Metoclopramide HCl 5 mg Q8HR IV 11/19/24 22:00 11/22/24 13:43 5 MG Lorazepam 1 mg ONCE PRN IV 11/20/24 10:30 Polyethylene Glycol 17 gm DAILY PO 11/22/24 10:00 11/22/24 10:46 17 GM Laboratory Results Laboratory Tests 11/22/24 03:00 Chemistry Test 11/22/24 03:00 Calcium Level 8.6 mg/dL (8.7-10.4) L Urinalysis Test 10/09/24 22:25 11/15/24 04:00 Urine Creatinine 31.20 mg/dL (30.0-125.0) Urine Protein/Creatinine Ratio 0.72 Urine Sodium 79 mmol/L (40-220) Urine Total Protein 22.5 mg/dL (1-14) H Urine Color Yellow (Yellow) Urine Clarity Turbid (Clear) H Urine pH 5.0 (5.0-9.0) Urine Specific Dexter 1.012 (1.001-1.035) Urine Protein Trace (Negative) H Urine Ketones Negative (Negative) Urine Blood 2+ /uL (Negative) H Urine Nitrite Negative (Negative) Urine Bilirubin Negative (Negative) Urine Urobilinogen Normal mg/dL (Negative) Urine Leukocyte Esterase 1+ /uL (Negative) Urine RBC 3 /hpf (0 - 4) Urine Microscopic WBC 14 /HPF (0-5) H Urine Squamous Epithelial Cells Few /hpf (<5) Urine Calcium Oxalate Crystals Few (None Seen) Urine Amorphous Crystals Few /hpf (None Seen) Urine Bacteria Few /hpf (None Seen) H Urine Hyaline Casts Mod /lpf (0 - 2) Urine Mucus Few (None Seen) Urine Glucose Normal mg/dL (Normal) Blood Gas Results Test 11/22/24 06:32 11/22/24 11:53 Arterial Blood pH 7.515 (7.350-7.450) 7.508 (7.350-7.450) FiO2 % 30.0 30.0 Microbiology Microbiology Date/Time Source Procedure Growth Status 11/16/24 04:50 Urine - [place] Port Urine Culture - Final Enterococcus faecium - VRE Complete 11/14/24 11:50 Sputum Endotracheal Wash Gram Stain - Final Complete 11/14/24 11:50 Sputum Endotracheal Wash Respiratory Culture - Final Complete 11/14/24 08:50 Blood Blood Culture - Final NO GROWTH AFTER 5 DAYS OF INCUBATION. Complete 11/14/24 04:30 Nose MRSA Screen - Final Complete Assessment/Plan Assessment/Plan Impression: Acute hypoxic respiratory failure On mechanical ventilator s/p cardiac arrest Ventricular tachycardia CPR <5 min Elevated troponin Atelectasis Anemia Events: Remains on vent support Currently on assist control with respiratory rate of 16, tidal volume 350, PEEP 5, FiO2 of 30% CPAP trial Mentation not at goal for extubation. ABG reviewed, notable for alkalemia due to metabolic alkalosis. CXR shows cardiomegaly. Median sternotomy. Unchanged pulmonary vascular congestion. Devices in place. Continue antibiotics Continue IV steroids Monitor hemoglobin Continue diuresis w/ Lasix Monitor renal function Monitor electrolytes. Supplement as necessary Potassium supplementation Protonix BID for GI prophylaxis Tube feeds for nutritional support Plan for tracheostomy. Recommend tracheostomy vs. senior living acute care. Awaiting for mentation to improve. Labs and imaging reviewed. Rest of plan as noted below. Plan: On mechanical ventilator Settings: Assist control with respiratory rate of 16, tidal volume 350, PEEP 5, FiO2 of 30% Titrate FiO2 to keep sats above 92%. VAP bundle Continue antibiotics. F/u cultures. Sputum culture shows normal oropharyngeal melissa. Urine culture notable for Gram-positive melissa, greater than 100 K. follow up final report. Continue antifungal IV steroids Pressors as necessary for hemodynamic support. Titrate to keep MAP greater than 65 mmHg. Stress dose steroids. Taper down as tolerated. Monitor hemoglobin Accu-Cheks, ISS PRN. Monitor labs Monitor renal function. On diuresis with Lasix twice daily. Monitor electrolytes. Supplement as necessary. Supplement potassium Magnesium at goal Monitor ins and outs. Maintain euvolemia Cardiology recommendations appreciated. On Protonix twice daily GI/DVT prophylaxis. On Eliquis twice daily. Prognosis: Poor given patient's multiple co-morbidities. Condition: Critical Rest of plan per hospitalist and other consultants. A total of 35 minutes of critical care time was spent reviewing the patient record, examining the patient, making a diagnostic and therapeutic plan, discussing this plan with the medical personnel, following up on diagnostic studies and following the patient for clinical stability excluding any and all procedures. At least 50% of this time was spent in direct, [id number] contact. Thank you, YURI Gomez, for allowing me to participate in this patient's care. Further recommendations will depend on the patient's clinical course. Please do not hesitate to contact me if you have any questions or concerns. This medical document was created using an electronic medical record system with [employer] dictation system. Although these documentations are being carefully reviewed, there may still be some phonetic and typographical changes. The errors are purely typographical, due to imperfection on the software program, and do not reflect any compromise in the patient's medical care. Plan discussed with: Other (CEE Negro/Stephany) My Orders Orders - KENNY FROST MD Procedure Category Date Status Time Ventilator Orders RT 11/22/24 Transmitted 09:04 Abg W/ Co-Ox RT 11/22/24 Logged 09:04 Cpap Trial For Am ORDERS 11/22/24 Transmitted 09:04 Cpap Trial For Am ORDERS 11/23/24 Transmitted 08:00 Date of Service: Nov 22, 2024 Billing Provider: KENNY FROST MD Common Visit Codes: 59273-[id number] INP/OBS CARE(HIGH), 25021-[id number] CARE 30-74 MIN KENNY FROST MD Nov 22, 2024 22:56
--- NOTE | 2024-11-22 23:31 | DVHPN2 ---
Consult Progress Note Objective vital signs Vital Sign Date Time Temp Pulse Resp B/P (MAP) Pulse Ox O2 Delivery O2 Flow Rate FiO2 11/22/24 22:17 55 19 114/39 (64 100 30 11/22/24 17:50 Mechanical Ventilator+ 11/22/24 16:00 98.6 98.6 Total Intake and Output 11/21/24 11/21/24 11/22/24 15:00 23:00 07:00 Intake Total 290.00 ml 645.50 ml 477.5 ml Output Total 700 ml 1250 ml Balance 290.00 ml -54.50 ml -772.5 ml medications Current Medications Medications Dose Ordered Sig/Liliam Route Start Time Stop Time Status Last Admin Dose Admin Amino Acids 0 ml @ 0 mls/hr PER PHARMACY IV 10/15/24 18:45 Cancel Dextrose 50 ml UD IV 10/16/24 09:30 Cancel Vancomycin HCl 0 ml @ 0 mls/hr UD IV 10/19/24 14:00 Cancel Metoprolol Tartrate 2.5 mg Q6HPRN PRN IV 10/31/24 09:15 Amino Acids 0 ml @ 0 mls/hr PER PHARMACY IV 11/04/24 22:00 Cancel Amino Acid Protein 30 ml DAILY PO 11/04/24 10:00 11/22/24 10:56 30 ML Pantoprazole Sodium 40 mg BID IV 11/09/24 22:00 11/22/24 10:45 40 MG Mexiletine HCl 150 mg TID GT 11/10/24 22:00 11/22/24 13:43 150 MG Fat Emulsion Intravenous 150 ml/Sodium Acetate 20 meq/Potassium Acetate 30 meq/ Potassium Phosphate 19.8 meq/Calcium Gluconate 2.3 meq/ Magnesium Sulfate 4 meq/ Multivitamins 10 ml/Chromium/ Copper/Manganese/ Zinc 1 ml/Amino Acids/Dextrose/ Purified Water 1,596.4462 ml @ 66 mls/hr [id number] IV 11/11/24 22:00 11/12/24 21:59 Cancel Furosemide 40 mg BIDD IV 11/14/24 18:00 11/22/24 18:21 40 MG Phenylephrine HCl 250 ml @ 30 mls/hr [id number] IV 11/15/24 09:00 11/22/24 20:43 30 MLS/HR Fentanyl Citrate 250 ml @ 2.5 mls/hr Q24H IV 11/15/24 11:45 11/19/24 23:02 2.5 MLS/HR Acetaminophen 650 mg Q4HR PRN GT 11/17/24 08:30 11/22/24 07:10 650 MG Potassium Bicarbonate 50 meq BID PEG 11/18/24 22:00 11/22/24 23:11 50 MEQ Enteral Nutritional Formula 1,000 ml 55ML/HR GT 11/19/24 15:00 11/19/24 19:25 1,000 ML Metoclopramide HCl 5 mg Q8HR IV 11/19/24 22:00 11/22/24 13:43 5 MG Lorazepam 1 mg ONCE PRN IV 11/20/24 10:30 Polyethylene Glycol 17 gm DAILY PO 11/22/24 10:00 11/22/24 10:46 17 GM laboratory and microbiology Laboratory Tests 11/22/24 03:00 Test 11/22/24 03:00 Range/Units Serum Glucose 94 74-106 mg/dL Problem List/Assessment/Plan Problem List/Assessment/Plan Problems(with codes): (1) Pneumonia (2) Cardiac arrest (3) Ventricular fibrillation (4) Sepsis, unspecified organism Plan/Recommendation ASSESSMENT AND PLAN: ID Problem List: \-- Status post cardiac arrest with return of spontaneous circulation (ROSC) \-- Ventricular tachycardia and atrial fibrillation \-- Recent aspiration event/pneumonitis versus pneumonia, Enterobacter cloacae isolated \-- Severe reduced ejection fraction (EF 1520%), dilated LV, severe global dysfunction \-- History of CABG with stents, mitral ring implant \-- Hypothermia, hypoxia requiring intubation and sedation \-- Sepsis (suspected/treated), leukocytosis (now resolved) \-- Ongoing vasopressor requirement (phenylephrine) \-- ICD placement planned Assessment Ms. Smith is a 54-year-old female with a past medical history notable for prior coronary artery bypass grafting (CABG) with stenting, recent mitral ring implant, and significant cardiac disease. She presented on 10/07 with an acute witnessed cardiac arrest during dinner; initial rhythm was ventricular tachycardia/atrial fibrillation. ROSC was achieved on EMS arrival after a single shock and Narcan administration. She was found to be hypothermic and hypotensive and required intubation for airway protection due to altered mental status. During her ICU course, she had recurrent ventricular tachycardia and atrial fibrillation, managed with antiarrhythmic drip (amiodarone), vasopressors (initially Levophed, currently phenylephrine), and heparin drip. Echocardiogram and left heart catheterization confirmed poor left ventricular function (EF 1520%, dilated LV) and patent bypass grafts. The patient also experienced aspiration pneumonitis, with Enterobacter cloacae isolated from sputum (sensitive to cefepime); empiric antibiotics were escalated to ertapenem following transient fever and leukocytosis, which have since resolved. Currently, she remains intubated on pressure support (tolerating CPAP trials), minimally following commands. She is on phenylephrine, Lasix drip, and heparin drip, with ongoing close monitoring. Cardiology in agreement to proceed with ICD placement given recurrent arrhythmias. Infectious disease clearance provided for this, as there is no evidence of persistent infection or sepsis (blood cultures negative, leukocytosis resolved). 10/12: awaiting AICD placement 10/13: sputum culture was done for further evaluation of persistent pneumonia , no thick secretions 10/14:Dr. bernardo recommends stopping aminopterin drip and LFTs appear to be improving with this change 10/15:lfts are normalizing , sputum shows krystal colonization 10/16: holding excavation til placement 10/17:s/p AICD placement and tolerated procedure . lfts are normal and off amioterine drip 10/18: sp Status post successful implantation of dual chamber AICD, DX Biotronik, Device was programmed into VDI lower rate of 40 bpm 10/19: unclear if patient aspirated vs developed new infection 10/20: levofed at 2 mics and started on steroids agree with continuing regimen until able to titrate off . suspect aspiration pneumonia , has high tube feed residuals . chest xray shows little changes but there is mild congestion in the right lung base , patient remains hypotensive . blood cultures no growth to date as well as urine cultures .appears to be recovering now that antibiotics have been re initiated 10/21:chest xray shows right lower lung base infiltrates , suspect aspiration pneumonia due to high tube feed residuals Plan: - large suspicion for aspiration pneumonia , discontinue vancomycin and continue zosyn for now - if hypoxia remains stable and continues to come off pressers support would discontinue zosyn in 2-3 days - defer to primary and e/m engineer team for management - keep maps above 65 - f/u on blood and urine culture results - continue zosyn - continue antibiotics \-- Maintain phenylephrine drip; titrate as needed to maintain MAP. \-- Monitor neurological status; currently, patient is intermittently following commands and is becoming more alert \-- No evidence of active sepsis or bacteremia at this time. \-- Continue supportive ICU care and multidisciplinary management. Authorized and Performed by: soham gramajo md Total critical care time: Approximately 36 minutes Due to a high probability of clinically significant, life threatening deterioration, the patient required my highest level of preparedness to intervene emergently and I personally spent this critical care time directly and personally managing the patient. This critical care time included obtaining a history; examining the patient; pulse oximetry; ordering and review of studies; arranging urgent treatment with development of a management plan; evaluation of patient's response to treatment; frequent reassessment; and, discussions with other providers. This critical care time was performed to assess and manage the high probability of imminent, life-threatening deterioration that could result in multi-organ failure. It was exclusive of separately billable procedures and treating other patients and teaching time. Isolation Precautions: Standard Dietary Evaluation Review Comments: 1) TF Jevity 1.2Cal @ 55 ml/hr. x 24hr along with Pro-stat 1 pk daily. Start @ 20ml/hr, increase 10ml/hr Q4H until goal is reached. TF @ goal volume provides 1684 kcal (100% energy needs), 88 gm protein (100% protein needs), 1065 ml free water. 2) Water flush 100ml Q4H if allowed, adjust PRN 3) Advance to cardiac diet as medically feasible 4) Monitor NPO status, lab values, wt trend, I/O Expected Outcomes/Goals: To meet >75% estimated needs within 7 days Lab values to improve Fu 2-3 days SOHAM GRAMAJO MD Nov 22, 2024 23:31
[2024-11-23] VITALS (116 sets, daily range): BP systolic 80–131; BP diastolic 30–89; PULSE 47–108; RESP 11–56; TEMP 98.3–98.6; O2SAT 97–100
[2024-11-23 03:55] LABS: Hematocrit 35.4 % (36.0-46.0); Hemoglobin 11.6 g/dL (12.2-16.2); Mean Corpuscular Hemoglobin 30.6 pg (28.0-32.0); Mean Corpuscular Volume 93.9 fL (80.0-100.0); Nucleated Red Blood Cells % 0.1 %
[2024-11-23 04:13] LABS: Alanine Aminotransferase 465 U/L (7-40); Albumin 2.6 g/dL (3.2-4.8); Alkaline Phosphatase 163 U/L (46-116); Anion Gap 8 (5-15); BUN/Creatinine Ratio 43.8 (10.0-20.0); Blood Urea Nitrogen 21 mg/dL (9-23); Calcium 8.5 mg/dL (8.7-10.4); Carbon Dioxide 39 mmol/L (20-31); Chloride 101 mmol/L (98-107); Glucose 75 mg/dL (74-106); Potassium 3.8 mmol/L (3.5-5.1); Sodium 148 mmol/L (136-145); Total Protein 4.8 g/dL (5.7-8.2)
[2024-11-23 04:14] LABS: Bilirubin, Total 2.3 mg/dL (0.2-1.0)
--- NOTE | 2024-11-23 05:53 | DVH ---
CHEST RADIOGRAPH Indication: INTUBATED Technique: Single frontal view of the chest was obtained COMPARISON: XY CHEST XRAY 1 VIEW on DOS: 11/22/24, XY CHEST PORTABLE on DOS: 11/21/24, XY CHEST PORTABL E on DOS: 11/20/24, XY CHEST PORTABLE on DOS: 11/19/24, XY CHEST PORTABLE on DOS: 11/18/24 FINDINGS: Lines and Tubes: Slight interval retraction of endotracheal tube such that the tip now projects appro ximately 4.5 cm above the level of the tyler. Remaining lines and tubes unchanged. Lungs: Clear Pleura: No effusion. No pneumothorax. Cardiomediastinal contours: Cardiomegaly. Bones: Unremarkable IMPRESSION: 1. Interval retraction of endotracheal tube such that the tip now projects approximately 4.5 cm above the level of the tyler. Remaining lines and tubes unchanged. 2. Cardiomegaly.
--- NOTE | 2024-11-23 07:13 | DVHPN2 ---
Progress Note - Dictate Date Seen: Nov 23, 2024 Has the PT tested + for MRSA If YES, has PT been informed?: No Medical Necessity Reason Pt with a Central, PICC or Fol: No The following are medically ne: PICC Line, Cutler Catheter Reason for cutler catheter: Strict I&O vital signs Vital Sign Date Time Temp Pulse Resp B/P (MAP) Pulse Ox O2 Delivery O2 Flow Rate FiO2 11/23/24 06:09 55 16 114/56 (75) 100 30 11/23/24 06:00 Mechanical Ventilator+ 11/22/24 16:00 98.6 98.6 Total Intake and Output 11/22/24 11/22/24 11/23/24 15:00 23:00 07:00 Intake Total 136.875 ml 451.25 ml 380.0 ml Output Total 0 ml 575 ml 852 ml Balance 136.875 ml -123.75 ml -472.0 ml medications Current Medications Medications Dose Ordered Sig/Liliam Route Start Time Stop Time Status Last Admin Dose Admin Amino Acids 0 ml @ 0 mls/hr PER PHARMACY IV 10/15/24 18:45 Cancel Dextrose 50 ml UD IV 10/16/24 09:30 Cancel Vancomycin HCl 0 ml @ 0 mls/hr UD IV 10/19/24 14:00 Cancel Metoprolol Tartrate 2.5 mg Q6HPRN PRN IV 10/31/24 09:15 Amino Acids 0 ml @ 0 mls/hr PER PHARMACY IV 11/04/24 22:00 Cancel Amino Acid Protein 30 ml DAILY PO 11/04/24 10:00 11/22/24 10:56 30 ML Pantoprazole Sodium 40 mg BID IV 11/09/24 22:00 11/22/24 10:45 40 MG Mexiletine HCl 150 mg TID GT 11/10/24 22:00 11/22/24 13:43 150 MG Fat Emulsion Intravenous 150 ml/Sodium Acetate 20 meq/Potassium Acetate 30 meq/ Potassium Phosphate 19.8 meq/Calcium Gluconate 2.3 meq/ Magnesium Sulfate 4 meq/ Multivitamins 10 ml/Chromium/ Copper/Manganese/ Zinc 1 ml/Amino Acids/Dextrose/ Purified Water 1,596.4462 ml @ 66 mls/hr [id number] IV 11/11/24 22:00 11/12/24 21:59 Cancel Furosemide 40 mg BIDD IV 11/14/24 18:00 11/23/24 05:32 40 MG Phenylephrine HCl 250 ml @ 30 mls/hr Q8H20M IV 11/15/24 09:00 11/23/24 05:32 30 MLS/HR Fentanyl Citrate 250 ml @ 2.5 mls/hr Q24H IV 11/15/24 11:45 11/23/24 05:41 2.5 MLS/HR Acetaminophen 650 mg Q4HR PRN GT 11/17/24 08:30 11/22/24 07:10 650 MG Potassium Bicarbonate 50 meq BID PEG 11/18/24 22:00 11/22/24 23:11 50 MEQ Enteral Nutritional Formula 1,000 ml 55ML/HR GT 11/19/24 15:00 11/19/24 19:25 1,000 ML Metoclopramide HCl 5 mg Q8HR IV 11/19/24 22:00 11/22/24 13:43 5 MG Lorazepam 1 mg ONCE PRN IV 11/20/24 10:30 Polyethylene Glycol 17 gm DAILY PO 11/22/24 10:00 11/22/24 10:46 17 GM laboratory and microbiology Laboratory Tests 11/23/24 03:23 Test 11/23/24 03:23 Range/Units Serum Glucose 75 74-106 mg/dL Assessment/Plan till in ICU, intubated and on pressure support. No significant arrhythmia identified during this episodes. They are looking into possibility of Tracheostomy (maybe to be performed in [place]?) Cardiac arenas, patient is moderate risk patient for moderate risk tracheostomy. Avoid hypotension. Patient is a 54-year-old female who was brought to the hospital for witnessed syncope. She is intubated and is being managed in ICU. Information was obtained by reviewing the chart and communicating with patient's son (over the phone). Family recognized witnessed syncope and started CPR and called EMS. Reportedly, EMS found the patient in ventricular fibrillation and shocked the patient and brought the patient to the hospital. Patient was intubated in emergency room and transferred to ICU. Patient was on amiodarone drip. Later the patient had ventricular tachycardia (Systane). High sensitive troponin had been minimally/flatly elevated. Presentation was not in favor of acute coronary syndrome. Cardiology is involved for cardiac aspects of care. Intubated. On Vent. No JVD. Mucosa pale. No carotid bruit. Scattered rhonchi in the lungs is heard. Cardiac: Regular, no thrill. Systolic murmur 2/6 in apex is heard. Abdomen is soft. 3+ edema in extremities. Past medical history as per son: Congenital heart disease, status post bypass WBC: 14.5 - 11.9 - 18.8 - 20.0 - 21.2 - 14.3 - 10.3 - 8.9 - 9.2 - 11.1 - 12.1 - 10.8 - 12.0 - 9.9 - 15.4 - 14.8 - 12.1 - 10.5 - 5.8 - 5.3 - 4.2 - 5.8 - 4.1 - 7.0 - 9.3 - 8.3 - 11.5 - 8.4 - 8.4 - 5.4 - 5.7 - 8.4 - 7.4 - 6.2 - 6.7 - 13.9 - 11.7 - 10.1 - 8.8 - 10.7 - 13.9 - 10.6 - 11.5 - 9.6 - 7.4 Hemoglobin: 10.1 - 9.6 - 9.2 - 8.8 - 8.7 - 8.0 - 8.3 - 8.5 - 7.8 - 10.2 - 10.7 - 9.9 - 9.7 - 9.3 - 9.3 - 8.6 - 8.1 - 7.4 - 7.5 - 7.4 - 7.5 - 7.2 - 7.7 - 7.0 - (post PRBC transfusion) 10.4 - 10 - 9.5 - 10.0 - 9.2 - 9.8 -9.6 - 9.7 - 10.2 - 10.6 - 9.7 - 9.7 - 10.5 - 10.0 - 11.4 - 10.8 - 12.4 - 12.7 - 13.3 - 12.3 - 12.0 - 11.6 Creatinine: 0.95 - 0.93 - 0.87 - 0.83 - 0.83 - 0.76 - 0.68 - 0.72 - 0.79 - 0.76 - 0.80 - 0.84 - 0.61 - 0.65 - 0.74 - 0.64 - 0.73 - 0.82 - 0.88 - 1.03 - 0.99 - 0.85 - 0.87 - 0.79 - 1.12 - 1.15 - 1.04 - 0.96 - 0.94 - 0.93 - 0.78 - 0.71 - 0.68 - 0.61 - 0.59 - 0.49 - 0.39 - 0.54 - 0.48 - 0.76 - 0.93 - 0.78 - 0 078 - 0.68 - 0.70 - 0.56 -0.64 - 0.63 - 0.63 - 0.57 - 0.48 Potassium: 3.4 - 4.0 - 4.6 - 3.5 - 3.3 - 4.1 - 3.7 - 3.2 - 3.7 - 4.0 - 3.2 - 3.4 - 3.9 - 4.2 - 3.3 - 3.8 - 3.6 - 3.4 - 4.2 - 3.8 - 4.5 - 4.1 - 3.5 - 4.2 - 3.3 - 2.6 - 3.5 - 3.8 - 2.4 - 2.9 - 4.6 - 2.8 - 4.8 - 4.9 - 3.4 - 3.1 - 3.7 - 4.4 - 3.7 - 3.7 - 3.1 - 3.0 - 3.8 - 4.4 - 3.8 - 4.1 - 4.3 - 3.9 - 4.4 - 6.1 - 4.6 - 3.0 - 3.6 - 3.1 - 2.1 - 4.6 - 2.5 - 3.1 - 4.4 - 4.9 - 4.9 - 4.3 - 3.8 Magnesium: 2.0 - 1.6 - 2.0 - 3.0 - 1.5 - 1.9 - 2.1 - 1.8 - 2.0 - 1.9 - 1.9 - 2.6 - 2.0 - 1.8 - 1.6 - 2.0 - 2.2 - 1.9 - 2.3 - 2.2 - 2.2 - 2.1 - 2.1 - 1.9 2.7 - 2.6 - 2.3 - 2.4 - 2.5 - 2.3 - 2.5 - 2.3 - 2.3 - 2.4 - 2.1 - 1.9 - 2.2 - 2.1 - 2.0 - 2.4 - 2.2 - 2.0 - 2.0 - 1.6 - 2.0 - 2.0 - 2.0 - 2.1 Troponin (high sensitive): 141 - 138 - 117 BNP: 457.16 - 1073.91 - 928.14 AST/ALT: 32/11 - 19/13 - 538/168 - 293/152 - 131/130 - 78/94 - 68/74 - 48/57 - 27/38 - 15/23 - 20/18 - 23/17 - 29/16 - 27/13 - 34/17 - 73/49 - 41/43 - 30/47 - 30/42 - 29/42 - 17/27 - 160/87 - 900/478 - 986/571 - 382/436 - 110/244 - 42/170 - 22/113 - 16/77 - 15/59 - 19/50 - 20/41 - 16/32 - 17/30 - 14/25 - 25/38 - - /2337 - >6000/>6000 - 4665/>6000 - 2123/>6000 - 604/4207 - 203/2809 - 131/1787 - 64/898 - 52/456 Digoxin level: 2.83 - 1.25 - 0.98 UDS: non-revealing Chest x-ray revealed: Lines and Tubes: Endotracheal tube tip projects approximately 1.4 cm above the level of the tyler. Enteric catheter courses below the lateral of the diaphragm and terminates beyond the inferior margin of the image. Right internal jugular central venous catheter terminates within the distal superior vena cava. Lungs: Moderate diffuse increased prominence of the pulmonary vasculature without evidence of focal consolidation. Pleura: No effusion. No pneumothorax. Cardiomediastinal contours: Cardiomegaly. Bones: Unremarkable IMPRESSION: 1. Cardiomegaly and diffuse increased prominence of the pulmonary vasculature. 2. Lines and tubes as above. Repeat chest x-ray revealed: IMPRESSION: 1. Endotracheal tube tip 1.6 cm above the tyler; consider 2 cm retraction 2. Mild pulmonary vascular congestion. Moderate cardiomegaly. Repeat chest xry revealed: IMPRESSION: Endotracheal tube tip 1.6 cm above the tyler; consider 2 cm retraction Mild pulmonary vascular congestion. Moderate cardiomegaly. Repeat chest xry revealed: IMPRESSION: 1. Stable cardiomegaly, small left pleural effusion and mild diffuse increased prominence of the pulmonary vasculature. 2. Repositioned endotracheal tube as above. Remaining lines and tubes unchanged. Repeat chest xry revealed: IMPRESSION: 1. Cardiomegaly, stable diffuse increased prominence of the pulmonary vasculature and small bilateral pleural effusions. 2. Slight interval advancement of endotracheal tube as above. Remaining lines and tubes unchanged. Repeat chest xry revealed: IMPRESSION: 1. Slight interval decrease in diffuse increased prominence of the pulmonary vasculature. 2. Stable cardiomegaly and small left pleural effusion. 3. Lines and tubes unchanged. Repeat chest xry revealed: IMPRESSION: 1. Cardiomegaly and small left pleural effusion. 2. Lines and tubes unchanged. Repeat chest xry revealed: IMPRESSION: Stable lines and tubes. Similar lung aeration. Repeat chest xry revealed: IMPRESSION: Cardiomegaly and small left pleural effusion. Lines and tubes unchanged. Repeat chest xry revealed: IMPRESSION: Placement of a cardiac pacer, no pneumothorax is seen. Stable lines and tubes. Repeat chest xry revealed: IMPRESSION: 1. Worsening mixed opacities in the right lower lung. No other significant change from the previous study. Stable support devices. Repeat chest xry revealed: Heart is prominent in size with postsurgical changes, median sternotomy wires, and a single lead left cardiac defibrillator. Support lines and tubes appear unchanged in satisfactory in position. No sizable effusion or pneumothorax. Mild pulmonary vascular congestion. No significant interval change. Repeat chest xry revealed: IMPRESSION: 1. No significant change from the previous study. Stable support devices. Similar findings of heart failure including left pleural effusion. Repeat chest xry revealed: IMPRESSION: 1. No significant change from the previous study. Stable support devices. Similar findings of heart failure including trace left pleural effusion. Repeat chest xry revealed: Lines and Tubes: Unchanged. Left anterior chest wall cardiac pacing device. Lungs: Clear Pleura: No effusion. No pneumothorax. Cardiomediastinal contours: Cardiomegaly. Bones: Unremarkable IMPRESSION: 1. Cardiomegaly. 2. Lines and tubes unchanged. Repeat chest xry revealed: IMPRESSION: Lines and tubes in satisfactory position. No significant interval change. Repeat chest xry revealed: Lines and Tubes: ET tube and NG tube removed. Lungs: Congestion Pleura: No effusion. No pneumothorax. Cardiomediastinal contours: Cardiomegaly Bones: Unremarkable IMPRESSION: 1. Cardiomegaly with CHF. Repeat chest xry revealed: IMPRESSION: 1. Cardiomegaly. 2. Patchy bilateral airspace disease. Repeat chest xry revealed: FINDINGS: Lines and Tubes: None. Left anterior chest wall cardiac pacing device. Lungs: Extensive multifocal bilateral pulmonary airspace disease in a predominantly perihilar and bibasilar distribution with consolidative features. Pleura: No effusion. No pneumothorax. Cardiomediastinal contours: Poorly evaluated secondary to extensive bilateral infiltrate. Bones: Unremarkable IMPRESSION: 1. Extensive multifocal bilateral pulmonary airspace disease in a predominantly perihilar and bibasilar distribution with consolidative features. Repeat chest xry revealed: IMPRESSION: 1. Status post interval intubation. Endotracheal tube tip projects approximately 2.4 cm above the level of the tyler. 2. Grossly stable appearing moderate patchy multifocal bilateral pulmonary airspace disease with consolidative features. 3. Cardiomegaly. Repeat chest xry revealed: IMPRESSION: No significant interval change. Repeat chest xry revealed: IMPRESSION: No significant interval change Repeat chest xry revealed: IMPRESSION: 1. Interval retraction of the endotracheal tube such that the tip now projects approximately 4.5 cm above the level of the tyler. 2. Cardiomegaly. Repeat chest xry revealed: IMPRESSION: 1. Mild interval advancement of the endotracheal tube such that the tip now projects approximately 3.3 cm above the level of the tyler. 2. No evidence of acute cardiopulmonary process. Repeat chest xry revealed: IMPRESSION: Lines and tubes in satisfactory position. No significant interval change. Repeat chest xry revealed: IMPRESSION: 1. Interval advancement of endotracheal tube such that the tip now projects approximately 3.7 cm above the level of the tyler. Remaining lines and tubes unchanged. 2. Cardiomegaly. Repeat chest xry revealed: IMPRESSION: Unchanged pulmonary vascular congestion. Repeat chest xry revealed: IMPRESSION: No significant interval change. Repeat chest xry revealed: IMPRESSION: 1. Interval retraction of endotracheal tube such that the tip now projects approximately 4.5 cm above the level of the tyler. Remaining lines and tubes unchanged. 2. Cardiomegaly. Gall Bladder Ultrasound revealed: IMPRESSION: Gallstones are noted. Hepatic steatosis Trace ascites Trace bilateral pleural effusions. Hepatic cirrhosis. Liver Ultrasound revealed: Hepatic steatosis. Trace right pleural effusion. Trace ascites Gallstones Bladder ultrasound revealed: IMPRESSION: 1. Cutler catheter in the bladder in the bladder is decompressed. Repeat Bladder Ultrasound revealed: Urinary bladder is unremarkable with prevoid volume of 29 mL. Urinary bladder wall measures 1.5 mm. Cutler catheter is noted. KUB revealed: IMPRESSION: Nonobstructive bowel gas pattern. Nasogastric tube tip in the stomach. Large stool burden. Repeat KUB revealed: Right lower extremity PICC line with tip projecting over the expected region of the intrahepatic IVC. Nasogastric tube projecting towards the distal stomach. Nonspecific bowel gas pattern. Cardiomegaly and left basilar airspace opacities, incompletely characterized. Atherosclerotic calcification disease. Repeat KUB revealed: IMPRESSION: 1. Nonspecific nonobstructive bowel gas pattern. 2. Gastrostomy tube projects over the midportion of the left hemiabdomen. 3. Right femoral approach central venous catheter as described above. Repeat KUB revealed: IMPRESSION: Nonobstructive bowel gas pattern. Right central venous catheter tip in the IVC Cutler catheter overlying the bladder. Left upper ext arterial duplex: IMPRESSION: No hemodynamically significant stenosis based on peak systolic velocity criteria. Left lower ext arterial duplex: IMPRESSION: There is no evidence for peripheral vascular insufficiency in the left lower extremity. No significant focal stenosis is identified. Liver Ultrasound revealed: Hepatic steatosis. Hepatomegaly. Cholelithiasis. CT of the head revealed: IMPRESSION: No acute intracranial abnormality. Repeat CT of head revealed: IMPRESSION: No acute intracranial abnormality. Repeat CT of Head revealed: IMPRESSION: No acute intracranial abnormality. Repeat CT of head revealed: IMPRESSION: 1. No acute intracranial abnormality. 2. No findings to suggest territorial ischemia. Echocardiogram reported: lvef 15-20% dilated LV severe global dysfunction mild RV dysfunction biatrial enlargement mild moderate MAC, moderate mitral regurg mild to moderate aortic regug (images of echo reviewed and questioned presence of mitral ring and also some component (moderate of Mitral stenosis) EKG revealed sinus rhythm Telemetry revealed occasions of atrial fibrillation. There was occasional sustained ventricular tachycardia. EMS tele monitor revealed ventricular fibrillation for which the patient was shocked. Has remained sinus rhythm. Later with A-fib with MVR LHC revealed: Patent RICHMOND to LAD; Patent SVG to obtuse marginal; LVEF of 20% with increased EDP; Proximal disease in LAD/LCX RICHIE was performed: Consistent with severely reduced LVEF. Consistent with previously implanted Mitral ring, Up to moderate Mitral stenosis/Mitral Regurgitation and also Moderate Aortic insufficiency. Patient is a 54-year-old female who presented with witnessed syncope. She was found to have ventricular fibrillation for which was shocked. Later had repeated episode of sustained ventricular tachycardia. Patient has been kept in ICU. Does have baseline history of coronary artery disease for which has had bypass surgery. Left heart catheterization was performed which revealed patent RICHMOND and patent SVG. ACS is not considered at this point. It is of note that the patient's echocardiogram reveals significantly use systolic function. Valvular heart disease is considered. Findings are in favor of previously implanted mitral ring. By reviewing the echo images, component of up to moderate mitral stenosis could not be ruled out. LHC was performed that ruled out any active specific ischemia as an etiology for presentation. Is off Amiodarone for abnormal LFT. Being followed by Nephrology / Pulmonary / Neurology / GI ID. Tele has remained sinus rhythm. Had episode of a-fib with RVR. Was loaded with Digoxin. Dig level was performed at wrong timing (only 5 hours after the last Dig given). Dig toxicity is not considered. Patient is back to normal sinus rhythm. Has good kidney function. Repeat Dig level is acceptable level. s/p ICD implantation by EP. Intubated, later extubated. s/p PEG. Later had respiratory failure and was taken back to ICU. Imaging question pneumonia (can it be aspiration?). Eventhough repeat BNP has not increased (decreased somehow), patient does have peripheral edema and component of acute on chronic Systolic heart failure could also contribute to respiratory failure. The site of ICD implantation was reviewed by EP (Dr Armstrong on 05/13/2024): healing well (personal communication). Had repeat respiratory failure, back in ICU and intubated. Abnormal LFT. Found to have gall stone and Liver cirrhosis Syncope V-fib s/p shock Sustained V-tach Paroxysmal A-fib VHD, s/p Mitral ring Systolic heart failure Abnormal LFT, at a point resolved, later appeared again s/p ICD (Biotronik) implantation by EP (Dr Armstrong) s/p PRBC transfusion for significant anemia Hepatic Steatosis Gallstones Failed Swallowing s/p PEG Acute respiratory failure Acute on chronic systolic heart failure Gallstone Liver cirrhosis Cardiac suggestion for management: Manage in ICU IV diuresis Follow up electrolytes and kidney function test and correct abnormalities Full anticoagulation (a-fib with high CHADS-Vasc score). s/p ICD implantation. On Eliquis On Mexiletine On Levo-Phed: keep MAP above 65 (for now off pressure support and tolerating) Was on Metoprolol to decrease risk of Vtach (as patient has ICD with bradycardia protection: may continue metoprolol in case of bradycardia, but hold: if hypotensive). For now will stop/hold Metoprolol May consider/add Esmolol for PVC/Vtach (if needed) Cardiac arenas, patient is moderate risk patient for moderate risk tracheostomy. Avoid hypotension. s/p ICD (Biotronik) implantation by EP Eliquis: 2.5 mg BID s/p PEG Pulmonary Follow up GI follow up Management of repeat respiratory failure, pneumonia as per primary team/pulmonary Provide previous medical records from reaching out to previous hospitals in [facility]... Further evaluation and management depends on the above and clinical course. A total of 75 minutes was spent reviewing the patient record, examining the patient, making a diagnostic and therapeutic plan, discussing this plan with medical personnel, following up on diagnostic studies and following the patient for clinical stability excluding any and all procedures. At least 50% of this time was spent in direct, [id number] contact. Thank you for allowing me to participate in this patient's care. Further recommendations will depend on patient's clinical course. Please do not hesitate to contact me if you have any questions or concerns. This medical document was created using electronic medical record system with [employer] computerized dictation system. Although this document has been carefully reviewed, there may still be some phonetic and typographical errors. These areas are purely typographical due to the imperfection of the software programs, and do not reflect any compromise in the patient's medical care. Dietary Evaluation Review Comments: 1) TF Jevity 1.2Cal @ 55 ml/hr. x 24hr along with Pro-stat 1 pk daily. Start @ 20ml/hr, increase 10ml/hr Q4H until goal is reached. TF @ goal volume provides 1684 kcal (100% energy needs), 88 gm protein (100% protein needs), 1065 ml free water. 2) Water flush 100ml Q4H if allowed, adjust PRN 3) Advance to cardiac diet as medically feasible 4) Monitor NPO status, lab values, wt trend, I/O Expected Outcomes/Goals: To meet >75% estimated needs within 7 days Lab values to improve Fu 2-3 days Plan discussed with: Other (nurse) CORDELL VERA MD Nov 23, 2024 07:13
[2024-11-23 08:10] LABS: Base Excess 13.7 mmol/L (-2.0-3.0)
--- NOTE | 2024-11-23 13:15 | DVHPN2 ---
Progress Note - Dictate Date Seen: Nov 23, 2024 Has the PT tested + for MRSA If YES, has PT been informed?: No Medical Necessity Reason Pt with a Central, PICC or Fol: No The following are medically ne: PICC Line, Cutler Catheter Reason for cutler catheter: Strict I&O Subjective Patient is intubated sedated FiO2 30% PEEP 5 Patient failed CPAP trial and required to be put back on mechanical ventilation No active GI bleeding reported, Hb is stable at 11.6 No bowel movements Tolerating tube feedings Liver enzymes are trending down vital signs Vital Sign Date Time Temp Pulse Resp B/P (MAP) Pulse Ox O2 Delivery O2 Flow Rate FiO2 11/23/24 11:56 63 11/23/24 11:40 56 97/43 (61) 100 30 11/23/24 10:56 Mechanical Ventilator+ 0 11/23/24 04:00 98.6 98.6 Total Intake and Output 11/22/24 11/22/24 11/23/24 15:00 23:00 07:00 Intake Total 136.875 ml 451.25 ml 380.0 ml Output Total 0 ml 575 ml 852 ml Balance 136.875 ml -123.75 ml -472.0 ml medications Current Medications Medications Dose Ordered Sig/Liliam Route Start Time Stop Time Status Last Admin Dose Admin Amino Acids 0 ml @ 0 mls/hr PER PHARMACY IV 10/15/24 18:45 Cancel Dextrose 50 ml UD IV 10/16/24 09:30 Cancel Vancomycin HCl 0 ml @ 0 mls/hr UD IV 10/19/24 14:00 Cancel Metoprolol Tartrate 2.5 mg Q6HPRN PRN IV 10/31/24 09:15 Amino Acids 0 ml @ 0 mls/hr PER PHARMACY IV 11/04/24 22:00 Cancel Amino Acid Protein 30 ml DAILY PO 11/04/24 10:00 11/22/24 10:56 30 ML Pantoprazole Sodium 40 mg BID IV 11/09/24 22:00 11/23/24 10:11 40 MG Mexiletine HCl 150 mg TID GT 11/10/24 22:00 11/22/24 13:43 150 MG Fat Emulsion Intravenous 150 ml/Sodium Acetate 20 meq/Potassium Acetate 30 meq/ Potassium Phosphate 19.8 meq/Calcium Gluconate 2.3 meq/ Magnesium Sulfate 4 meq/ Multivitamins 10 ml/Chromium/ Copper/Manganese/ Zinc 1 ml/Amino Acids/Dextrose/ Purified Water 1,596.4462 ml @ 66 mls/hr [id number] IV 11/11/24 22:00 11/12/24 21:59 Cancel Furosemide 40 mg BIDD IV 11/14/24 18:00 11/23/24 05:32 40 MG Phenylephrine HCl 250 ml @ 30 mls/hr Q8H20M IV 11/15/24 09:00 11/23/24 05:32 30 MLS/HR Fentanyl Citrate 250 ml @ 2.5 mls/hr Q24H IV 11/15/24 11:45 11/23/24 05:41 2.5 MLS/HR Acetaminophen 650 mg Q4HR PRN GT 11/17/24 08:30 11/22/24 07:10 650 MG Potassium Bicarbonate 50 meq BID PEG 11/18/24 22:00 11/23/24 10:28 50 MEQ Enteral Nutritional Formula 1,000 ml 55ML/HR GT 11/19/24 15:00 11/23/24 12:14 1,000 ML Metoclopramide HCl 5 mg Q8HR IV 11/19/24 22:00 11/22/24 13:43 5 MG Lorazepam 1 mg ONCE PRN IV 11/20/24 10:30 Polyethylene Glycol 17 gm DAILY PO 11/22/24 10:00 11/23/24 10:12 17 GM objective Examination: GENERAL:Normal, LUNGS: Decreased breath sounds at bases ABDOMEN: Soft, dressing dry, G-tube in place, SKIN:Normal, NEURO:Normal laboratory and microbiology Laboratory Tests 11/23/24 03:23 Test 11/23/24 03:23 Range/Units Serum Glucose 75 74-106 mg/dL Problems(with codes): (1) Shock liver (2) Pneumonia (3) Sepsis, unspecified organism (4) Ventricular fibrillation (5) Cardiac arrest Prognosis Plan Continue G-tube feedings Monitor bowel activity Monitor labs Patient is being evaluated for possible tracheostomy Dietary Evaluation Review Comments: 1) TF Jevity 1.2Cal @ 55 ml/hr. x 24hr along with Pro-stat 1 pk daily. Start @ 20ml/hr, increase 10ml/hr Q4H until goal is reached. TF @ goal volume provides 1684 kcal (100% energy needs), 88 gm protein (100% protein needs), 1065 ml free water. 2) Water flush 100ml Q4H if allowed, adjust PRN 3) Advance to cardiac diet as medically feasible 4) Monitor NPO status, lab values, wt trend, I/O Expected Outcomes/Goals: To meet >75% estimated needs within 7 days Lab values to improve Fu 2-3 days Plan discussed with: Other (Dr Renner) CANDI BOSS MD Nov 23, 2024 13:15
--- NOTE | 2024-11-23 14:12 | DVHPN2 ---
Progress Note - Dictate Date Seen: Nov 23, 2024 Has the PT tested + for MRSA If YES, has PT been informed?: No Medical Necessity Reason Pt with a Central, PICC or Fol: No The following are medically ne: PICC Line, Cutler Catheter Reason for cutler catheter: Strict I&O Subjective Patient moving spontaneously, urine volumes nonoliguric vital signs Vital Sign Date Time Temp Pulse Resp B/P (MAP) Pulse Ox O2 Delivery O2 Flow Rate FiO2 11/23/24 14:10 30 11/23/24 14:07 94/42 11/23/24 14:06 16 99 Mechanical Ventilator+ 0 11/23/24 13:47 63 11/23/24 04:00 98.6 98.6 Total Intake and Output 11/22/24 11/22/24 11/23/24 15:00 23:00 07:00 Intake Total 136.875 ml 451.25 ml 380.0 ml Output Total 0 ml 575 ml 852 ml Balance 136.875 ml -123.75 ml -472.0 ml medications Current Medications Medications Dose Ordered Sig/Liliam Route Start Time Stop Time Status Last Admin Dose Admin Amino Acids 0 ml @ 0 mls/hr PER PHARMACY IV 10/15/24 18:45 Cancel Dextrose 50 ml UD IV 10/16/24 09:30 Cancel Vancomycin HCl 0 ml @ 0 mls/hr UD IV 10/19/24 14:00 Cancel Metoprolol Tartrate 2.5 mg Q6HPRN PRN IV 10/31/24 09:15 Amino Acids 0 ml @ 0 mls/hr PER PHARMACY IV 11/04/24 22:00 Cancel Amino Acid Protein 30 ml DAILY PO 11/04/24 10:00 11/22/24 10:56 30 ML Pantoprazole Sodium 40 mg BID IV 11/09/24 22:00 11/23/24 10:11 40 MG Mexiletine HCl 150 mg TID GT 11/10/24 22:00 11/22/24 13:43 150 MG Fat Emulsion Intravenous 150 ml/Sodium Acetate 20 meq/Potassium Acetate 30 meq/ Potassium Phosphate 19.8 meq/Calcium Gluconate 2.3 meq/ Magnesium Sulfate 4 meq/ Multivitamins 10 ml/Chromium/ Copper/Manganese/ Zinc 1 ml/Amino Acids/Dextrose/ Purified Water 1,596.4462 ml @ 66 mls/hr [id number] IV 11/11/24 22:00 11/12/24 21:59 Cancel Furosemide 40 mg BIDD IV 11/14/24 18:00 11/23/24 05:32 40 MG Phenylephrine HCl 250 ml @ 30 mls/hr Q8H20M IV 11/15/24 09:00 11/23/24 14:07 30 MLS/HR Fentanyl Citrate 250 ml @ 2.5 mls/hr Q24H IV 11/15/24 11:45 11/23/24 05:41 2.5 MLS/HR Acetaminophen 650 mg Q4HR PRN GT 11/17/24 08:30 11/22/24 07:10 650 MG Potassium Bicarbonate 50 meq BID PEG 11/18/24 22:00 11/23/24 10:28 50 MEQ Enteral Nutritional Formula 1,000 ml 55ML/HR GT 11/19/24 15:00 11/23/24 12:14 1,000 ML Metoclopramide HCl 5 mg Q8HR IV 11/19/24 22:00 11/22/24 13:43 5 MG Lorazepam 1 mg ONCE PRN IV 11/20/24 10:30 Polyethylene Glycol 17 gm DAILY PO 11/22/24 10:00 11/23/24 10:12 17 GM objective Gen: Intubated lungs: Occasional rhonchi cvs: no rub ext: no edema laboratory and microbiology Laboratory Tests 11/23/24 03:23 Test 11/23/24 03:23 Range/Units Serum Glucose 75 74-106 mg/dL Assessment/Plan Problem List/Assessment/Plan BARBIE-hemodynamic mediated etiology proteinuria Cardiac arrest status post V-tach chfref ef 15-20 on eliquis VDRF acute respiratory failure - clinically stable from Nephrology perspective, recommend continued use of loop diuretic on an as-needed basis. - I will sign off her case, please reconsult as needed. Thank you. Dietary Evaluation Review Comments: 1) TF Jevity 1.2Cal @ 55 ml/hr. x 24hr along with Pro-stat 1 pk daily. Start @ 20ml/hr, increase 10ml/hr Q4H until goal is reached. TF @ goal volume provides 1684 kcal (100% energy needs), 88 gm protein (100% protein needs), 1065 ml free water. 2) Water flush 100ml Q4H if allowed, adjust PRN 3) Advance to cardiac diet as medically feasible 4) Monitor NPO status, lab values, wt trend, I/O Expected Outcomes/Goals: To meet >75% estimated needs within 7 days Lab values to improve Fu 2-3 days Plan discussed with: Other XANDER OSORIO MD Nov 23, 2024 14:12
[2024-11-23] MEDS: PHYTONADIONE (VIT K)10 MG/ML 1ML VIAL SUBCUT ONE (14:48)
--- NOTE | 2024-11-23 18:07 | DVHPN2 ---
Progress Note Date Seen: Nov 23, 2024 Has the PT tested + for MRSA If YES, has PT been informed?: No Medical Necessity Reason Pt with a Central, PICC or Fol: No The following are medically ne: PICC Line, Cutler Catheter Reason for cutler catheter: Strict I&O Subjective Review of Systems: Not Done (unable to obtain) Objective vital signs Vital Sign Date Time Temp Pulse Resp B/P (MAP) Pulse Ox O2 Delivery O2 Flow Rate FiO2 11/23/24 16:23 54 18 108/42 (64) 100 11/23/24 16:15 Mechanical Ventilator+ 0 30 30 11/23/24 04:00 98.6 98.6 Total Intake and Output 11/22/24 11/22/24 11/23/24 15:00 23:00 07:00 Intake Total 136.875 ml 451.25 ml 380.0 ml Output Total 0 ml 575 ml 852 ml Balance 136.875 ml -123.75 ml -472.0 ml medications Current Medications Medications Dose Ordered Sig/Liliam Route Start Time Stop Time Status Last Admin Dose Admin Amino Acids 0 ml @ 0 mls/hr PER PHARMACY IV 10/15/24 18:45 Cancel Dextrose 50 ml UD IV 10/16/24 09:30 Cancel Vancomycin HCl 0 ml @ 0 mls/hr UD IV 10/19/24 14:00 Cancel Metoprolol Tartrate 2.5 mg Q6HPRN PRN IV 10/31/24 09:15 Amino Acids 0 ml @ 0 mls/hr PER PHARMACY IV 11/04/24 22:00 Cancel Amino Acid Protein 30 ml DAILY PO 11/04/24 10:00 11/22/24 10:56 30 ML Pantoprazole Sodium 40 mg BID IV 11/09/24 22:00 11/23/24 10:11 40 MG Mexiletine HCl 150 mg TID GT 11/10/24 22:00 11/23/24 14:49 150 MG Fat Emulsion Intravenous 150 ml/Sodium Acetate 20 meq/Potassium Acetate 30 meq/ Potassium Phosphate 19.8 meq/Calcium Gluconate 2.3 meq/ Magnesium Sulfate 4 meq/ Multivitamins 10 ml/Chromium/ Copper/Manganese/ Zinc 1 ml/Amino Acids/Dextrose/ Purified Water 1,596.4462 ml @ 66 mls/hr [id number] IV 11/11/24 22:00 11/12/24 21:59 Cancel Furosemide 40 mg BIDD IV 11/14/24 18:00 11/23/24 05:32 40 MG Phenylephrine HCl 250 ml @ 30 mls/hr Q8H20M IV 11/15/24 09:00 11/23/24 14:07 30 MLS/HR Fentanyl Citrate 250 ml @ 2.5 mls/hr Q24H IV 11/15/24 11:45 11/23/24 05:41 2.5 MLS/HR Acetaminophen 650 mg Q4HR PRN GT 11/17/24 08:30 11/22/24 07:10 650 MG Potassium Bicarbonate 50 meq BID PEG 11/18/24 22:00 11/23/24 10:28 50 MEQ Enteral Nutritional Formula 1,000 ml 55ML/HR GT 11/19/24 15:00 11/23/24 12:14 1,000 ML Metoclopramide HCl 5 mg Q8HR IV 11/19/24 22:00 11/23/24 14:49 5 MG Lorazepam 1 mg ONCE PRN IV 11/20/24 10:30 Polyethylene Glycol 17 gm DAILY PO 11/22/24 10:00 11/23/24 10:12 17 GM Examination: GENERAL:Normal, LUNGS:Normal, CVS:Normal, ABDOMEN:Normal, SKIN:Normal, NEURO:Normal laboratory and microbiology Laboratory Tests 11/23/24 03:23 Test 11/23/24 03:23 Range/Units Serum Glucose 75 74-106 mg/dL Microbiology Date/Time Source Procedure Growth Status 11/16/24 04:50 Urine - Cutler Port Urine Culture - Final Enterococcus faecium - VRE Complete 11/14/24 11:50 Sputum Endotracheal Wash Gram Stain - Final Complete 11/14/24 11:50 Sputum Endotracheal Wash Respiratory Culture - Final Complete 11/14/24 08:50 Blood Blood Culture - Final NO GROWTH AFTER 5 DAYS OF INCUBATION. Complete 11/14/24 04:30 Nose MRSA Screen - Final Complete Labs and/or images reviewed: Labs reviewed by me, Image(s) reviewed by me Problem List/Assessment/Plan Problem List/Assessment/Plan During her hospital course, the patient experienced episodes of bradycardia but subsequently went into a paced rhythm. She developed acute hypoxic respiratory failure and required intubation. At one point during her hospital stay, she aspirated and required re-intubation. She has been receiving daily CPAP trials as part of her respiratory management. The patient was diagnosed with enterobacter pneumonia, which has now resolved after receiving a full course of antibiotics. She developed transaminitis, which was likely contributed to by amiodarone. She has paroxysmal atrial fibrillation, and her anticoagulation is currently being held for possible tracheostomy placement. Beta-blockers are also being held due to bradycardia. For dysphagia management, the patient had a PEG tube placed and is receiving tube feeds. She has been accepted to [facility] and is awaiting transfer for continued ventilator management. Cardiac Arrest with Ventricular Fibrillation Assessment: Patient experienced cardiac arrest with ventricular fibrillation. They have a history of coronary artery disease with previous 2-vessel CABG and chronic systolic heart failure. The patient has a severely reduced left ventricular ejection fraction of 15-20% and a previously implanted mitral ring. An AICD is in place with the heart rate set at 40. The patient went into a paced rhythm following episodes of bradycardia. Plan: - Continue Mexiletine 150 mg TID - Hold anticoagulation due to possible tracheostomy placement - Hold metoprolol due to bradycardia - [employer] to interrogate pacemaker - Transfer patient to [place] for continued management Acute Hypoxic Respiratory Failure Assessment: Patient developed acute hypoxic respiratory failure requiring intubation. They experienced aspiration during the hospital stay, necessitating re-intubation. The patient is currently undergoing daily CPAP trials. Plan: - Continue daily CPAP trials - Surgical consult for tracheostomy placement - Transfer to [place] for continued ventilator management Paroxysmal Atrial Fibrillation Assessment: Patient has paroxysmal atrial fibrillation. Anticoagulation is currently being held due to possible tracheostomy placement. Plan: - Hold anticoagulation Transaminitis Assessment: Patient has developed transaminitis, likely contributed to by amiodarone use. Plan: - Avoid amiodarone Enterobacter Pneumonia (Resolved) Assessment: Patient had Enterobacter pneumonia which has now resolved after completing a full course of antibiotics. Dysphagia Assessment: Patient has dysphagia and underwent a g tube placement Plan: - Continue tube feedings Coronary artery disease Assessment: Patient has a history of 2-vessel CABG. Cardiology is following the patient. Plan: - Continue current management - Follow up with cardiology as scheduled Acute chronic systolic heart failure Assessment: Patient has severely reduced left ventricular ejection fraction of 15-20%. Echo findings are consistent with severely reduced left ventricular ejection fraction and previously implanted mitral ring up to moderate. Plan: - Continue Lasix - Monitor renal function Plan discussed with: Patient Dietary Evaluation Review Comments: 1) RUDY Caro 1.2Cal @ 55 ml/hr. x 24hr along with Pro-stat 1 pk daily. Start @ 20ml/hr, increase 10ml/hr Q4H until goal is reached. TF @ goal volume provides 1684 kcal (100% energy needs), 88 gm protein (100% protein needs), 1065 ml free water. 2) Water flush 100ml Q4H if allowed, adjust PRN 3) Advance to cardiac diet as medically feasible 4) Monitor NPO status, lab values, wt trend, I/O Expected Outcomes/Goals: To meet >75% estimated needs within 7 days Lab values to improve Fu 2-3 days Date of Service: Nov 23, 2024 Billing Provider: CARLOS WHITAKER MD Common Visit Codes: [id number] INP/OBS CARE (MOD) BRAEDEN UNDERWOOD BOX T[employer]ER Nov 23, 2024 18:07
[2024-11-24] VITALS (108 sets, daily range): BP systolic 96–143; BP diastolic 42–86; PULSE 50–118; RESP 11–38; TEMP 97.8–98.4; O2SAT 96–100
[2024-11-24 04:16] LABS: Hematocrit 36.3 % (36.0-46.0); Hemoglobin 11.7 g/dL (12.2-16.2); Mean Corpuscular Hemoglobin 30.7 pg (28.0-32.0); Mean Corpuscular Volume 95.2 fL (80.0-100.0)
[2024-11-24 04:24] LABS: INR 1.13 (0.9-1.15); Partial Thromboplastin Time 24.5 SEC (24.5-34.5); Prothrombin Time 11.8 sec (9.3-11.8)
[2024-11-24 04:26] LABS: BUN/Creatinine Ratio 28.8 (10.0-20.0); Blood Urea Nitrogen 15 mg/dL (9-23); Chloride 100 mmol/L (98-107); Potassium 4.9 mmol/L (3.5-5.1)
[2024-11-24 04:27] LABS: Alanine Aminotransferase 388 U/L (7-40); Albumin 2.7 g/dL (3.2-4.8); Alkaline Phosphatase 174 U/L (46-116); Anion Gap 5.99999 (5-15); Bilirubin, Total 2.0 mg/dL (0.2-1.0); Calcium 8.7 mg/dL (8.7-10.4); Glucose 136 mg/dL (74-106); Sodium 146 mmol/L (136-145); Total Protein 5.2 g/dL (5.7-8.2)
[2024-11-24 04:28] LABS: Carbon Dioxide > 40 mmol/L (20-31)
[2024-11-24 05:15] LABS: Base Excess 12.5 mmol/L (-2.0-3.0)
[2024-11-24 06:39] LABS: Total Cells Counted 100.0 (100)
[2024-11-24] MEDS: PHYTONADIONE (VIT K)10 MG/ML 1ML VIAL SUBCUT ONE (11:43)
--- NOTE | 2024-11-24 11:46 | DVHPN2 ---
Progress Note Date Seen: Nov 24, 2024 Has the PT tested + for MRSA If YES, has PT been informed?: No Medical Necessity Reason Pt with a Central, PICC or Fol: No The following are medically ne: PICC Line, Cutler Catheter Reason for cutler catheter: Strict I&O Subjective Review of Systems: Not Done (unable to obtain ) Objective vital signs Vital Sign Date Time Temp Pulse Resp B/P (MAP) Pulse Ox O2 Delivery O2 Flow Rate FiO2 11/24/24 09:16 69 19 99/45 (63) 98 11/24/24 08:00 30 11/24/24 08:00 Mechanical Ventilator+ 11/24/24 08:00 98.2 98.2 11/23/24 16:15 0 Total Intake and Output 11/23/24 11/23/24 11/24/24 15:00 23:00 07:00 Intake Total 755.0 ml 328.05 ml 870 ml Output Total 50 ml 1250 ml 1200 ml Balance 705.0 ml -921.95 ml -330 ml medications Current Medications Medications Dose Ordered Sig/Liliam Route Start Time Stop Time Status Last Admin Dose Admin Amino Acids 0 ml @ 0 mls/hr PER PHARMACY IV 10/15/24 18:45 Cancel Dextrose 50 ml UD IV 10/16/24 09:30 Cancel Vancomycin HCl 0 ml @ 0 mls/hr UD IV 10/19/24 14:00 Cancel Metoprolol Tartrate 2.5 mg Q6HPRN PRN IV 10/31/24 09:15 Amino Acids 0 ml @ 0 mls/hr PER PHARMACY IV 11/04/24 22:00 Cancel Amino Acid Protein 30 ml DAILY PO 11/04/24 10:00 11/24/24 10:10 30 ML Pantoprazole Sodium 40 mg BID IV 11/09/24 22:00 11/24/24 10:10 40 MG Mexiletine HCl 150 mg TID GT 11/10/24 22:00 11/24/24 06:04 150 MG Fat Emulsion Intravenous 150 ml/Sodium Acetate 20 meq/Potassium Acetate 30 meq/ Potassium Phosphate 19.8 meq/Calcium Gluconate 2.3 meq/ Magnesium Sulfate 4 meq/ Multivitamins 10 ml/Chromium/ Copper/Manganese/ Zinc 1 ml/Amino Acids/Dextrose/ Purified Water 1,596.4462 ml @ 66 mls/hr [id number] IV 11/11/24 22:00 11/12/24 21:59 Cancel Furosemide 40 mg BIDD IV 11/14/24 18:00 11/24/24 06:04 40 MG Phenylephrine HCl 250 ml @ 30 mls/hr Q8H20M IV 11/15/24 09:00 11/24/24 07:26 30 MLS/HR Fentanyl Citrate 250 ml @ 2.5 mls/hr Q24H IV 11/15/24 11:45 11/23/24 05:41 2.5 MLS/HR Acetaminophen 650 mg Q4HR PRN GT 11/17/24 08:30 11/22/24 07:10 650 MG Potassium Bicarbonate 50 meq BID PEG 11/18/24 22:00 11/23/24 22:30 50 MEQ Enteral Nutritional Formula 1,000 ml 55ML/HR GT 11/19/24 15:00 11/23/24 12:14 1,000 ML Metoclopramide HCl 5 mg Q8HR IV 11/19/24 22:00 11/23/24 14:49 5 MG Lorazepam 1 mg ONCE PRN IV 11/20/24 10:30 Polyethylene Glycol 17 gm DAILY PO 11/22/24 10:00 11/24/24 10:10 17 GM Examination: GENERAL:Normal, LUNGS:Normal, LUNGS:Abnormal (diminished on ventillator ), CVS:Normal, SKIN:Normal, NEURO:Normal laboratory and microbiology Laboratory Tests 11/24/24 03:40 Test 11/24/24 03:40 Range/Units Serum Glucose 136 H 74-106 mg/dL Microbiology Date/Time Source Procedure Growth Status 11/16/24 04:50 Urine - Cutler Port Urine Culture - Final Enterococcus faecium - VRE Complete 11/14/24 11:50 Sputum Endotracheal Wash Gram Stain - Final Complete 11/14/24 11:50 Sputum Endotracheal Wash Respiratory Culture - Final Complete 11/14/24 08:50 Blood Blood Culture - Final NO GROWTH AFTER 5 DAYS OF INCUBATION. Complete 11/14/24 04:30 Nose MRSA Screen - Final Complete Labs and/or images reviewed: Labs reviewed by me, Image(s) reviewed by me Problem List/Assessment/Plan Problem List/Assessment/Plan During her hospital course, the patient experienced episodes of bradycardia but subsequently went into a paced rhythm. She developed acute hypoxic respiratory failure and required intubation. At one point during her hospital stay, she aspirated and required re-intubation. She has been receiving daily CPAP trials as part of her respiratory management. The patient was diagnosed with enterobacter pneumonia, which has now resolved after receiving a full course of antibiotics. She developed transaminitis, which was likely contributed to by amiodarone. She has paroxysmal atrial fibrillation, and her anticoagulation is currently being held for possible tracheostomy placement. Beta-blockers are also being held due to bradycardia. For dysphagia management, the patient had a PEG tube placed and is receiving tube feeds. She has been accepted to [facility] and is awaiting transfer for continued ventilator management. Cardiac Arrest with Ventricular Fibrillation Assessment: Patient experienced cardiac arrest with ventricular fibrillation. They have a history of coronary artery disease with previous 2-vessel CABG and chronic systolic heart failure. The patient has a severely reduced left ventricular ejection fraction of 15-20% and a previously implanted mitral ring. An AICD is in place with the heart rate set at 40. The patient went into a paced rhythm following episodes of bradycardia. Plan: - Continue Mexiletine 150 mg TID - Hold anticoagulation due to possible tracheostomy placement - Hold metoprolol due to bradycardia - [employer] to interrogate pacemaker - Transfer patient to [place] for continued management Acute Hypoxic Respiratory Failure Assessment: Patient developed acute hypoxic respiratory failure requiring intubation. They experienced aspiration during the hospital stay, necessitating re-intubation. The patient is currently undergoing daily CPAP trials. Plan: - Continue daily CPAP trials - Surgical consult for tracheostomy placement - Transfer to [place] for continued ventilator management Paroxysmal Atrial Fibrillation Assessment: Patient has paroxysmal atrial fibrillation. Anticoagulation is currently being held due to possible tracheostomy placement. Plan: - Hold anticoagulation Transaminitis Assessment: Patient has developed transaminitis, likely contributed to by amiodarone use. Plan: - Avoid amiodarone Enterobacter Pneumonia (Resolved) Assessment: Patient had Enterobacter pneumonia which has now resolved after completing a full course of antibiotics. Dysphagia Assessment: Patient has dysphagia and underwent a g tube placement Plan: - Continue tube feedings Coronary artery disease Assessment: Patient has a history of 2-vessel CABG. Cardiology is following the patient. Plan: - Continue current management - Follow up with cardiology as scheduled Acute chronic systolic heart failure Assessment: Patient has severely reduced left ventricular ejection fraction of 15-20%. Echo findings are consistent with severely reduced left ventricular ejection fraction and previously implanted mitral ring up to moderate. Plan: - Continue Lasix - Monitor renal function Plan discussed with: Patient Dietary Evaluation Review Comments: 1) TF Jevity 1.2Cal @ 55 ml/hr. x 24hr along with Pro-stat 1 pk daily. Start @ 20ml/hr, increase 10ml/hr Q4H until goal is reached. TF @ goal volume provides 1684 kcal (100% energy needs), 88 gm protein (100% protein needs), 1065 ml free water. 2) Water flush 100ml Q4H if allowed, adjust PRN 3) Advance to cardiac diet as medically feasible 4) Monitor NPO status, lab values, wt trend, I/O Expected Outcomes/Goals: To meet >75% estimated needs within 7 days Lab values to improve Fu 2-3 days Date of Service: Nov 24, 2024 Billing Provider: CARLOS WHITAKER MD Common Visit Codes: [id number] INP/OBS CARE (MOD) BRAEDEN UNDERWOOD [employer] PORTAL CONSULTANT Nov 24, 2024 11:46
--- NOTE | 2024-11-24 14:07 | DVHPN2 ---
Consult Progress Note Date Seen: Nov 23, 2024 Objective vital signs Vital Sign Date Time Temp Pulse Resp B/P (MAP) Pulse Ox O2 Delivery O2 Flow Rate FiO2 11/24/24 11:45 64 36 120/49 (72) 99 11/24/24 10:00 Mechanical Ventilator+ 30 30 11/24/24 08:00 98.2 98.2 11/23/24 16:15 0 Total Intake and Output 11/23/24 11/23/24 11/24/24 15:00 23:00 07:00 Intake Total 755.0 ml 328.05 ml 870 ml Output Total 50 ml 1250 ml 1200 ml Balance 705.0 ml -921.95 ml -330 ml medications Current Medications Medications Dose Ordered Sig/Liliam Route Start Time Stop Time Status Last Admin Dose Admin Amino Acids 0 ml @ 0 mls/hr PER PHARMACY IV 10/15/24 18:45 Cancel Dextrose 50 ml UD IV 10/16/24 09:30 Cancel Vancomycin HCl 0 ml @ 0 mls/hr UD IV 10/19/24 14:00 Cancel Metoprolol Tartrate 2.5 mg Q6HPRN PRN IV 10/31/24 09:15 Amino Acids 0 ml @ 0 mls/hr PER PHARMACY IV 11/04/24 22:00 Cancel Amino Acid Protein 30 ml DAILY PO 11/04/24 10:00 11/24/24 10:10 30 ML Pantoprazole Sodium 40 mg BID IV 11/09/24 22:00 11/24/24 10:10 40 MG Mexiletine HCl 150 mg TID GT 11/10/24 22:00 11/24/24 06:04 150 MG Fat Emulsion Intravenous 150 ml/Sodium Acetate 20 meq/Potassium Acetate 30 meq/ Potassium Phosphate 19.8 meq/Calcium Gluconate 2.3 meq/ Magnesium Sulfate 4 meq/ Multivitamins 10 ml/Chromium/ Copper/Manganese/ Zinc 1 ml/Amino Acids/Dextrose/ Purified Water 1,596.4462 ml @ 66 mls/hr [id number] IV 11/11/24 22:00 11/12/24 21:59 Cancel Furosemide 40 mg BIDD IV 11/14/24 18:00 11/24/24 06:04 40 MG Phenylephrine HCl 250 ml @ 30 mls/hr Q8H20M IV 11/15/24 09:00 11/24/24 07:26 30 MLS/HR Fentanyl Citrate 250 ml @ 2.5 mls/hr Q24H IV 11/15/24 11:45 11/24/24 11:42 10 MLS/HR Acetaminophen 650 mg Q4HR PRN GT 11/17/24 08:30 11/22/24 07:10 650 MG Potassium Bicarbonate 50 meq BID PEG 11/18/24 22:00 11/23/24 22:30 50 MEQ Enteral Nutritional Formula 1,000 ml 55ML/HR GT 11/19/24 15:00 11/23/24 12:14 1,000 ML Metoclopramide HCl 5 mg Q8HR IV 11/19/24 22:00 11/23/24 14:49 5 MG Lorazepam 1 mg ONCE PRN IV 11/20/24 10:30 Polyethylene Glycol 17 gm DAILY PO 11/22/24 10:00 11/24/24 10:10 17 GM laboratory and microbiology Laboratory Tests 11/24/24 03:40 Test 11/24/24 03:40 Range/Units Serum Glucose 136 H 74-106 mg/dL Problem List/Assessment/Plan Problem List/Assessment/Plan Assessment: # Shock liver, transaminitis which improved, rule out hepatitis # Possible atypical Pneumonia vs amiodarone toxicity, Community-acquired pneumonia growing Enterobacter # Sepsis, unspecified organism # Ventricular fibrillation # Cardiac arrest s/p ACLS and ROSC after 5 min. # Syncope V-fib s/p shock # Paroxysmal atrial fibrillation # Ventricular tachycardia # Congenital heart disease # Systolic heart failure s/p ICD (Biotronik) implantation by EP (Dr Armstrong) # s/p PRBC transfusion for significant anemia # Gallstones Questionable acute cholecystitis clinically ruled out by Surgical team. # Heart failure with reduced ejection fraction 15-20% # Metabolic versus hypoxic encephalopathy # acute resp failure on 2-3 l oxygen # b/l atelectasis Plan: #Suspect fever is due to pericarditis/aspiration pneumonitis. Continue to monitor #Defer pericarditis workup to Cardiology Discussed with Dr. Eaton. Thank you for the opportunity to consult on your patient. Infectious Disease will follow up Plan discussed with: Patient Plan discussed with: Patient Dietary Evaluation Review Comments: 1) TF Jevity 1.2Cal @ 55 ml/hr. x 24hr along with Pro-stat 1 pk daily. Start @ 20ml/hr, increase 10ml/hr Q4H until goal is reached. TF @ goal volume provides 1684 kcal (100% energy needs), 88 gm protein (100% protein needs), 1065 ml free water. 2) Water flush 100ml Q4H if allowed, adjust PRN 3) Advance to cardiac diet as medically feasible 4) Monitor NPO status, lab values, wt trend, I/O Expected Outcomes/Goals: To meet >75% estimated needs within 7 days Lab values to improve Fu 2-3 days JOSE DOWNING RESIDENT Nov 24, 2024 14:07
[2024-11-24] MEDS: fentaNYL Drip 2500mCg/250mlNS 250 ML IV SCH (15:45)
--- NOTE | 2024-11-24 20:18 | DVHPN2 ---
Progress Note - Dictate Date Seen: Nov 24, 2024 Has the PT tested + for MRSA If YES, has PT been informed?: No Medical Necessity Reason Pt with a Central, PICC or Fol: No The following are medically ne: PICC Line, Cutler Catheter Reason for cutler catheter: Strict I&O Subjective Patient seen and examined at the bedside within ICU. The patient is in normal sinus rhythm with a heart rate in the 80s. Chart reviewed. Patient's medications, allergies, past medical, surgical, social and family histories were obtained and reviewed as appropriate. vital signs Vital Sign Date Time Temp Pulse Resp B/P (MAP) Pulse Ox O2 Delivery O2 Flow Rate FiO2 11/24/24 18:50 129/58 11/24/24 18:37 66 17 99 30 11/24/24 18:37 Mechanical Ventilator+ 11/24/24 16:01 98.1 98.1 11/23/24 16:15 0 Total Intake and Output 11/23/24 11/23/24 11/24/24 15:00 23:00 07:00 Intake Total 755.0 ml 328.05 ml 870 ml Output Total 50 ml 1250 ml 1200 ml Balance 705.0 ml -921.95 ml -330 ml medications Current Medications Medications Dose Ordered Sig/Liliam Route Start Time Stop Time Status Last Admin Dose Admin Amino Acids 0 ml @ 0 mls/hr PER PHARMACY IV 10/15/24 18:45 Cancel Dextrose 50 ml UD IV 10/16/24 09:30 Cancel Vancomycin HCl 0 ml @ 0 mls/hr UD IV 10/19/24 14:00 Cancel Metoprolol Tartrate 2.5 mg Q6HPRN PRN IV 10/31/24 09:15 Amino Acids 0 ml @ 0 mls/hr PER PHARMACY IV 11/04/24 22:00 Cancel Amino Acid Protein 30 ml DAILY PO 11/04/24 10:00 11/24/24 10:10 30 ML Pantoprazole Sodium 40 mg BID IV 11/09/24 22:00 11/24/24 10:10 40 MG Mexiletine HCl 150 mg TID GT 11/10/24 22:00 11/24/24 15:26 150 MG Fat Emulsion Intravenous 150 ml/Sodium Acetate 20 meq/Potassium Acetate 30 meq/ Potassium Phosphate 19.8 meq/Calcium Gluconate 2.3 meq/ Magnesium Sulfate 4 meq/ Multivitamins 10 ml/Chromium/ Copper/Manganese/ Zinc 1 ml/Amino Acids/Dextrose/ Purified Water 1,596.4462 ml @ 66 mls/hr [id number] IV 11/11/24 22:00 11/12/24 21:59 Cancel Furosemide 40 mg BIDD IV 11/14/24 18:00 11/24/24 18:50 40 MG Phenylephrine HCl 250 ml @ 30 mls/hr Q8H20M IV 11/15/24 09:00 11/24/24 15:27 30 MLS/HR Acetaminophen 650 mg Q4HR PRN GT 11/17/24 08:30 11/22/24 07:10 650 MG Potassium Bicarbonate 50 meq BID PEG 11/18/24 22:00 11/23/24 22:30 50 MEQ Enteral Nutritional Formula 1,000 ml 55ML/HR GT 11/19/24 15:00 11/23/24 12:14 1,000 ML Metoclopramide HCl 5 mg Q8HR IV 11/19/24 22:00 11/24/24 15:26 5 MG Lorazepam 1 mg ONCE PRN IV 11/20/24 10:30 Polyethylene Glycol 17 gm DAILY PO 11/22/24 10:00 11/24/24 10:10 17 GM Fentanyl Citrate 250 ml @ 2.5 mls/hr Q24H IV 11/24/24 15:45 objective Heart: S1 and S2 present. The patient is in sinus rhythm. Lungs: Clear to auscultation Abdomen: Benign. Extremities: Distal pulses palpable, 2+. No evidence for peripheral edema laboratory and microbiology Laboratory Tests 11/24/24 03:40 Test 11/24/24 03:40 Range/Units Serum Glucose 136 H 74-106 mg/dL Assessment/Plan till in ICU, intubated and on pressure support. No significant arrhythmia identified during this episodes. They are looking into possibility of Tracheostomy (maybe to be performed in [place]?) Cardiac arenas, patient is moderate risk patient for moderate risk tracheostomy. Avoid hypotension. Patient is a 54-year-old female who was brought to the hospital for witnessed syncope. She is intubated and is being managed in ICU. Information was obtained by reviewing the chart and communicating with patient's son (over the phone). Family recognized witnessed syncope and started CPR and called EMS. Reportedly, EMS found the patient in ventricular fibrillation and shocked the patient and brought the patient to the hospital. Patient was intubated in emergency room and transferred to ICU. Patient was on amiodarone drip. Later the patient had ventricular tachycardia (Systane). High sensitive troponin had been minimally/flatly elevated. Presentation was not in favor of acute coronary syndrome. Cardiology is involved for cardiac aspects of care. Intubated. On Vent. No JVD. Mucosa pale. No carotid bruit. Scattered rhonchi in the lungs is heard. Cardiac: Regular, no thrill. Systolic murmur 2/6 in apex is heard. Abdomen is soft. 3+ edema in extremities. Past medical history as per son: Congenital heart disease, status post bypass WBC: 14.5 - 11.9 - 18.8 - 20.0 - 21.2 - 14.3 - 10.3 - 8.9 - 9.2 - 11.1 - 12.1 - 10.8 - 12.0 - 9.9 - 15.4 - 14.8 - 12.1 - 10.5 - 5.8 - 5.3 - 4.2 - 5.8 - 4.1 - 7.0 - 9.3 - 8.3 - 11.5 - 8.4 - 8.4 - 5.4 - 5.7 - 8.4 - 7.4 - 6.2 - 6.7 - 13.9 - 11.7 - 10.1 - 8.8 - 10.7 - 13.9 - 10.6 - 11.5 - 9.6 - 7.4 Hemoglobin: 10.1 - 9.6 - 9.2 - 8.8 - 8.7 - 8.0 - 8.3 - 8.5 - 7.8 - 10.2 - 10.7 - 9.9 - 9.7 - 9.3 - 9.3 - 8.6 - 8.1 - 7.4 - 7.5 - 7.4 - 7.5 - 7.2 - 7.7 - 7.0 - (post PRBC transfusion) 10.4 - 10 - 9.5 - 10.0 - 9.2 - 9.8 -9.6 - 9.7 - 10.2 - 10.6 - 9.7 - 9.7 - 10.5 - 10.0 - 11.4 - 10.8 - 12.4 - 12.7 - 13.3 - 12.3 - 12.0 - 11.6 Creatinine: 0.95 - 0.93 - 0.87 - 0.83 - 0.83 - 0.76 - 0.68 - 0.72 - 0.79 - 0.76 - 0.80 - 0.84 - 0.61 - 0.65 - 0.74 - 0.64 - 0.73 - 0.82 - 0.88 - 1.03 - 0.99 - 0.85 - 0.87 - 0.79 - 1.12 - 1.15 - 1.04 - 0.96 - 0.94 - 0.93 - 0.78 - 0.71 - 0.68 - 0.61 - 0.59 - 0.49 - 0.39 - 0.54 - 0.48 - 0.76 - 0.93 - 0.78 - 0 078 - 0.68 - 0.70 - 0.56 -0.64 - 0.63 - 0.63 - 0.57 - 0.48 Potassium: 3.4 - 4.0 - 4.6 - 3.5 - 3.3 - 4.1 - 3.7 - 3.2 - 3.7 - 4.0 - 3.2 - 3.4 - 3.9 - 4.2 - 3.3 - 3.8 - 3.6 - 3.4 - 4.2 - 3.8 - 4.5 - 4.1 - 3.5 - 4.2 - 3.3 - 2.6 - 3.5 - 3.8 - 2.4 - 2.9 - 4.6 - 2.8 - 4.8 - 4.9 - 3.4 - 3.1 - 3.7 - 4.4 - 3.7 - 3.7 - 3.1 - 3.0 - 3.8 - 4.4 - 3.8 - 4.1 - 4.3 - 3.9 - 4.4 - 6.1 - 4.6 - 3.0 - 3.6 - 3.1 - 2.1 - 4.6 - 2.5 - 3.1 - 4.4 - 4.9 - 4.9 - 4.3 - 3.8 Magnesium: 2.0 - 1.6 - 2.0 - 3.0 - 1.5 - 1.9 - 2.1 - 1.8 - 2.0 - 1.9 - 1.9 - 2.6 - 2.0 - 1.8 - 1.6 - 2.0 - 2.2 - 1.9 - 2.3 - 2.2 - 2.2 - 2.1 - 2.1 - 1.9 2.7 - 2.6 - 2.3 - 2.4 - 2.5 - 2.3 - 2.5 - 2.3 - 2.3 - 2.4 - 2.1 - 1.9 - 2.2 - 2.1 - 2.0 - 2.4 - 2.2 - 2.0 - 2.0 - 1.6 - 2.0 - 2.0 - 2.0 - 2.1 Troponin (high sensitive): 141 - 138 - 117 BNP: 457.16 - 1073.91 - 928.14 AST/ALT: 32/11 - 19/13 - 538/168 - 293/152 - 131/130 - 78/94 - 68/74 - 48/57 - 27/38 - 15/23 - 20/18 - 23/17 - 29/16 - 27/13 - 34/17 - 73/49 - 41/43 - 30/47 - 30/42 - 29/42 - 17/27 - 160/87 - 900/478 - 986/571 - 382/436 - 110/244 - 42/170 - 22/113 - 16/77 - 15/59 - 19/50 - 20/41 - 16/32 - 17/30 - 14/25 - 25/38 - - /2337 - >6000/>6000 - 4665/>6000 - 2123/>6000 - 604/4207 - 203/2809 - 131/1787 - 64/898 - 52/456 Digoxin level: 2.83 - 1.25 - 0.98 UDS: non-revealing Chest x-ray revealed: Lines and Tubes: Endotracheal tube tip projects approximately 1.4 cm above the level of the tyler. Enteric catheter courses below the lateral of the diaphragm and terminates beyond the inferior margin of the image. Right internal jugular central venous catheter terminates within the distal superior vena cava. Lungs: Moderate diffuse increased prominence of the pulmonary vasculature without evidence of focal consolidation. Pleura: No effusion. No pneumothorax. Cardiomediastinal contours: Cardiomegaly. Bones: Unremarkable IMPRESSION: 1. Cardiomegaly and diffuse increased prominence of the pulmonary vasculature. 2. Lines and tubes as above. Repeat chest x-ray revealed: IMPRESSION: 1. Endotracheal tube tip 1.6 cm above the tyler; consider 2 cm retraction 2. Mild pulmonary vascular congestion. Moderate cardiomegaly. Repeat chest xry revealed: IMPRESSION: Endotracheal tube tip 1.6 cm above the tyler; consider 2 cm retraction Mild pulmonary vascular congestion. Moderate cardiomegaly. Repeat chest xry revealed: IMPRESSION: 1. Stable cardiomegaly, small left pleural effusion and mild diffuse increased prominence of the pulmonary vasculature. 2. Repositioned endotracheal tube as above. Remaining lines and tubes unchanged. Repeat chest xry revealed: IMPRESSION: 1. Cardiomegaly, stable diffuse increased prominence of the pulmonary vasculature and small bilateral pleural effusions. 2. Slight interval advancement of endotracheal tube as above. Remaining lines and tubes unchanged. Repeat chest xry revealed: IMPRESSION: 1. Slight interval decrease in diffuse increased prominence of the pulmonary vasculature. 2. Stable cardiomegaly and small left pleural effusion. 3. Lines and tubes unchanged. Repeat chest xry revealed: IMPRESSION: 1. Cardiomegaly and small left pleural effusion. 2. Lines and tubes unchanged. Repeat chest xry revealed: IMPRESSION: Stable lines and tubes. Similar lung aeration. Repeat chest xry revealed: IMPRESSION: Cardiomegaly and small left pleural effusion. Lines and tubes unchanged. Repeat chest xry revealed: IMPRESSION: Placement of a cardiac pacer, no pneumothorax is seen. Stable lines and tubes. Repeat chest xry revealed: IMPRESSION: 1. Worsening mixed opacities in the right lower lung. No other significant change from the previous study. Stable support devices. Repeat chest xry revealed: Heart is prominent in size with postsurgical changes, median sternotomy wires, and a single lead left cardiac defibrillator. Support lines and tubes appear unchanged in satisfactory in position. No sizable effusion or pneumothorax. Mild pulmonary vascular congestion. No significant interval change. Repeat chest xry revealed: IMPRESSION: 1. No significant change from the previous study. Stable support devices. Similar findings of heart failure including left pleural effusion. Repeat chest xry revealed: IMPRESSION: 1. No significant change from the previous study. Stable support devices. Similar findings of heart failure including trace left pleural effusion. Repeat chest xry revealed: Lines and Tubes: Unchanged. Left anterior chest wall cardiac pacing device. Lungs: Clear Pleura: No effusion. No pneumothorax. Cardiomediastinal contours: Cardiomegaly. Bones: Unremarkable IMPRESSION: 1. Cardiomegaly. 2. Lines and tubes unchanged. Repeat chest xry revealed: IMPRESSION: Lines and tubes in satisfactory position. No significant interval change. Repeat chest xry revealed: Lines and Tubes: ET tube and NG tube removed. Lungs: Congestion Pleura: No effusion. No pneumothorax. Cardiomediastinal contours: Cardiomegaly Bones: Unremarkable IMPRESSION: 1. Cardiomegaly with CHF. Repeat chest xry revealed: IMPRESSION: 1. Cardiomegaly. 2. Patchy bilateral airspace disease. Repeat chest xry revealed: FINDINGS: Lines and Tubes: None. Left anterior chest wall cardiac pacing device. Lungs: Extensive multifocal bilateral pulmonary airspace disease in a predominantly perihilar and bibasilar distribution with consolidative features. Pleura: No effusion. No pneumothorax. Cardiomediastinal contours: Poorly evaluated secondary to extensive bilateral infiltrate. Bones: Unremarkable IMPRESSION: 1. Extensive multifocal bilateral pulmonary airspace disease in a predominantly perihilar and bibasilar distribution with consolidative features. Repeat chest xry revealed: IMPRESSION: 1. Status post interval intubation. Endotracheal tube tip projects approximately 2.4 cm above the level of the tyler. 2. Grossly stable appearing moderate patchy multifocal bilateral pulmonary airspace disease with consolidative features. 3. Cardiomegaly. Repeat chest xry revealed: IMPRESSION: No significant interval change. Repeat chest xry revealed: IMPRESSION: No significant interval change Repeat chest xry revealed: IMPRESSION: 1. Interval retraction of the endotracheal tube such that the tip now projects approximately 4.5 cm above the level of the tyler. 2. Cardiomegaly. Repeat chest xry revealed: IMPRESSION: 1. Mild interval advancement of the endotracheal tube such that the tip now projects approximately 3.3 cm above the level of the tyler. 2. No evidence of acute cardiopulmonary process. Repeat chest xry revealed: IMPRESSION: Lines and tubes in satisfactory position. No significant interval change. Repeat chest xry revealed: IMPRESSION: 1. Interval advancement of endotracheal tube such that the tip now projects approximately 3.7 cm above the level of the tyler. Remaining lines and tubes unchanged. 2. Cardiomegaly. Repeat chest xry revealed: IMPRESSION: Unchanged pulmonary vascular congestion. Repeat chest xry revealed: IMPRESSION: No significant interval change. Repeat chest xry revealed: IMPRESSION: 1. Interval retraction of endotracheal tube such that the tip now projects approximately 4.5 cm above the level of the tyler. Remaining lines and tubes unchanged. 2. Cardiomegaly. Gall Bladder Ultrasound revealed: IMPRESSION: Gallstones are noted. Hepatic steatosis Trace ascites Trace bilateral pleural effusions. Hepatic cirrhosis. Liver Ultrasound revealed: Hepatic steatosis. Trace right pleural effusion. Trace ascites Gallstones Bladder ultrasound revealed: IMPRESSION: 1. Cutler catheter in the bladder in the bladder is decompressed. Repeat Bladder Ultrasound revealed: Urinary bladder is unremarkable with prevoid volume of 29 mL. Urinary bladder wall measures 1.5 mm. Cutler catheter is noted. KUB revealed: IMPRESSION: Nonobstructive bowel gas pattern. Nasogastric tube tip in the stomach. Large stool burden. Repeat KUB revealed: Right lower extremity PICC line with tip projecting over the expected region of the intrahepatic IVC. Nasogastric tube projecting towards the distal stomach. Nonspecific bowel gas pattern. Cardiomegaly and left basilar airspace opacities, incompletely characterized. Atherosclerotic calcification disease. Repeat KUB revealed: IMPRESSION: 1. Nonspecific nonobstructive bowel gas pattern. 2. Gastrostomy tube projects over the midportion of the left hemiabdomen. 3. Right femoral approach central venous catheter as described above. Repeat KUB revealed: IMPRESSION: Nonobstructive bowel gas pattern. Right central venous catheter tip in the IVC Cutler catheter overlying the bladder. Left upper ext arterial duplex: IMPRESSION: No hemodynamically significant stenosis based on peak systolic velocity criteria. Left lower ext arterial duplex: IMPRESSION: There is no evidence for peripheral vascular insufficiency in the left lower extremity. No significant focal stenosis is identified. Liver Ultrasound revealed: Hepatic steatosis. Hepatomegaly. Cholelithiasis. CT of the head revealed: IMPRESSION: No acute intracranial abnormality. Repeat CT of head revealed: IMPRESSION: No acute intracranial abnormality. Repeat CT of Head revealed: IMPRESSION: No acute intracranial abnormality. Repeat CT of head revealed: IMPRESSION: 1. No acute intracranial abnormality. 2. No findings to suggest territorial ischemia. Echocardiogram reported: lvef 15-20% dilated LV severe global dysfunction mild RV dysfunction biatrial enlargement mild moderate MAC, moderate mitral regurg mild to moderate aortic regug (images of echo reviewed and questioned presence of mitral ring and also some component (moderate of Mitral stenosis) EKG revealed sinus rhythm Telemetry revealed occasions of atrial fibrillation. There was occasional sustained ventricular tachycardia. EMS tele monitor revealed ventricular fibrillation for which the patient was shocked. Has remained sinus rhythm. Later with A-fib with MVR LHC revealed: Patent RICHMOND to LAD; Patent SVG to obtuse marginal; LVEF of 20% with increased EDP; Proximal disease in LAD/LCX RICHIE was performed: Consistent with severely reduced LVEF. Consistent with previously implanted Mitral ring, Up to moderate Mitral stenosis/Mitral Regurgitation and also Moderate Aortic insufficiency. Patient is a 54-year-old female who presented with witnessed syncope. She was found to have ventricular fibrillation for which was shocked. Later had repeated episode of sustained ventricular tachycardia. Patient has been kept in ICU. Does have baseline history of coronary artery disease for which has had bypass surgery. Left heart catheterization was performed which revealed patent RICH[place]D and patent SVG. ACS is not considered at this point. It is of note that the patient's echocardiogram reveals significantly use systolic function. Valvular heart disease is considered. Findings are in favor of previously implanted mitral ring. By reviewing the echo images, component of up to moderate mitral stenosis could not be ruled out. LHC was performed that ruled out any active specific ischemia as an etiology for presentation. Is off Amiodarone for abnormal LFT. Being followed by Nephrology / Pulmonary / Neurology / GI ID. Tele has remained sinus rhythm. Had episode of a-fib with RVR. Was loaded with Digoxin. Dig level was performed at wrong timing (only 5 hours after the last Dig given). Dig toxicity is not considered. Patient is back to normal sinus rhythm. Has good kidney function. Repeat Dig level is acceptable level. s/p ICD implantation by EP. Intubated, later extubated. s/p PEG. Later had respiratory failure and was taken back to ICU. Imaging question pneumonia (can it be aspiration?). Eventhough repeat BNP has not increased (decreased somehow), patient does have peripheral edema and component of acute on chronic Systolic heart failure could also contribute to respiratory failure. The site of ICD implantation was reviewed by EP (Dr Armstrong on 05/13/2024): healing well (personal communication). Had repeat respiratory failure, back in ICU and intubated. Abnormal LFT. Found to have gall stone and Liver cirrhosis Syncope V-fib s/p shock Sustained V-tach Paroxysmal A-fib VHD, s/p Mitral ring Systolic heart failure Abnormal LFT, at a point resolved, later appeared again s/p ICD (Biotronik) implantation by EP (Dr Armstrong) s/p PRBC transfusion for significant anemia Hepatic Steatosis Gallstones Failed Swallowing s/p PEG Acute respiratory failure Acute on chronic systolic heart failure Gallstone Liver cirrhosis Cardiac suggestion for management: IV diuresis Follow up electrolytes and kidney function test and correct abnormalities Full anticoagulation (a-fib with high CHADS-Vasc score). s/p ICD implantation. On Eliquis On Mexiletine On Levo-Phed: keep MAP above 65 (for now off pressure support and tolerating) Was on Metoprolol to decrease risk of Vtach (as patient has ICD with bradycardia protection: may continue metoprolol in case of bradycardia, but hold: if hypotensive). For now will stop/hold Metoprolol May consider/add Esmolol for PVC/Vtach (if needed) Cardiac arenas, patient is moderate risk patient for moderate risk tracheostomy. Avoid hypotension. s/p ICD (Biotronik) implantation by EP Eliquis: 2.5 mg BID s/p PEG Pulmonary Follow up GI follow up Management of repeat respiratory failure, pneumonia as per primary team/pulmonary Provide previous medical records from reaching out to previous hospitals in [facility]... Proceed with close rate and rhythm surveillance Proceed with close hemodynamic surveillance Proceed with optimized blood pressure control Transfuse to sustain HGB level above 7.0 Sustain Magnesium level greater than 2.0 Sustain Potassium level greater than 4.0 Follow up renal function and electrolytes Management of ongoing concurrent medical conditions as per primary team Management of beta-hemolytic group B strep as per primary team/ID Management comorbidities as per primary team Management in the ICU Follow up sephora product consultant recommendations Will proceed to follow from an EP perspective Further recommendations per clinical progression All available diagnostic labs, EKG's, and images were personally reviewed Patient's status, findings, and plan of care was reviewed and discussed with supervising physician Dr. Armstrong, who is in agreement with current plan of care. Plan of care discussed with and agreed upon by family / primary RN Prognosis: Guarded Thank you for allowing me to participate in the care of this patient. Further recommendations based on patients clinical course and progression, primary attending, and other consultants. Will continue to follow with primary attending. If you have any questions or concerns, please do not hesitate to contact me. A total of 75 minutes was spent reviewing the patient record, examining the patient, making a diagnostic and therapeutic plan, discussing this plan with medical personnel, following up on diagnostic studies and following the patient for clinical stability excluding any and all procedures. At least 50% of this time was spent in direct, [id number] contact. Dietary Evaluation Review Comments: 1) TF Jevity 1.2Cal @ 55 ml/hr. x 24hr along with Pro-stat 1 pk daily. Start @ 20ml/hr, increase 10ml/hr Q4H until goal is reached. TF @ goal volume provides 1684 kcal (100% energy needs), 88 gm protein (100% protein needs), 1065 ml free water. 2) Water flush 100ml Q4H if allowed, adjust PRN 3) Advance to cardiac diet as medically feasible 4) Monitor NPO status, lab values, wt trend, I/O Expected Outcomes/Goals: To meet >75% estimated needs within 7 days Lab values to improve Fu 2-3 days Plan discussed with: Other (RN) PENNY AVILA NP Nov 24, 2024 20:18
[2024-11-25] VITALS (102 sets, daily range): BP systolic 90–132; BP diastolic 29–72; PULSE 62–100; RESP 11–54; TEMP 97.8–98.6; O2SAT 96–100
[2024-11-25 04:48] LABS: Anion Gap 6 (5-15); BUN/Creatinine Ratio 41.5 (10.0-20.0); Blood Urea Nitrogen 17 mg/dL (9-23); Chloride 101 mmol/L (98-107); Glucose 105 mg/dL (74-106); Potassium 4.4 mmol/L (3.5-5.1)
[2024-11-25 05:01] LABS: Alanine Aminotransferase 291 U/L (7-40); Albumin 2.6 g/dL (3.2-4.8); Alkaline Phosphatase 154 U/L (46-116); Bilirubin, Total 1.7 mg/dL (0.2-1.0); Calcium 8.4 mg/dL (8.7-10.4); Carbon Dioxide 39 mmol/L (20-31); Sodium 146 mmol/L (136-145); Total Protein 4.9 g/dL (5.7-8.2)
[2024-11-25 05:14] LABS: Hematocrit 33.5 % (36.0-46.0); Hemoglobin 10.9 g/dL (12.2-16.2); Mean Corpuscular Hemoglobin 30.9 pg (28.0-32.0); Mean Corpuscular Volume 94.6 fL (80.0-100.0); Nucleated Red Blood Cells % 0.4 %
[2024-11-25 07:37] LABS: Anisocytosis Slight; Stomatocytes Few
[2024-11-25 08:46] LABS: Base Excess 12.7 mmol/L (-2.0-3.0)
--- NOTE | 2024-11-25 11:09 | DVHPN2 ---
Progress Note Date Seen: Nov 25, 2024 Has the PT tested + for MRSA If YES, has PT been informed?: No Medical Necessity Reason Pt with a Central, PICC or Fol: No The following are medically ne: PICC Line, Cutler Catheter Reason for cutler catheter: Strict I&O Subjective Review of Systems: Not Done (unable to obtain) Objective vital signs Vital Sign Date Time Temp Pulse Resp B/P (MAP) Pulse Ox O2 Delivery O2 Flow Rate FiO2 11/25/24 10:23 82 17 95/51 (66) 98 30 11/25/24 10:00 Mechanical Ventilator+ 11/25/24 07:30 97.8 97.8 11/23/24 16:15 0 Total Intake and Output 11/24/24 11/24/24 11/25/24 15:00 23:00 07:00 Intake Total 320 ml 689 ml 910 ml Output Total 1150 ml 300 ml Balance 320 ml -461 ml 610 ml medications Current Medications Medications Dose Ordered Sig/Liliam Route Start Time Stop Time Status Last Admin Dose Admin Amino Acids 0 ml @ 0 mls/hr PER PHARMACY IV 10/15/24 18:45 Cancel Dextrose 50 ml UD IV 10/16/24 09:30 Cancel Vancomycin HCl 0 ml @ 0 mls/hr UD IV 10/19/24 14:00 Cancel Metoprolol Tartrate 2.5 mg Q6HPRN PRN IV 10/31/24 09:15 Amino Acids 0 ml @ 0 mls/hr PER PHARMACY IV 11/04/24 22:00 Cancel Amino Acid Protein 30 ml DAILY PO 11/04/24 10:00 11/24/24 10:10 30 ML Pantoprazole Sodium 40 mg BID IV 11/09/24 22:00 11/25/24 09:53 40 MG Mexiletine HCl 150 mg TID GT 11/10/24 22:00 11/25/24 05:44 150 MG Fat Emulsion Intravenous 150 ml/Sodium Acetate 20 meq/Potassium Acetate 30 meq/ Potassium Phosphate 19.8 meq/Calcium Gluconate 2.3 meq/ Magnesium Sulfate 4 meq/ Multivitamins 10 ml/Chromium/ Copper/Manganese/ Zinc 1 ml/Amino Acids/Dextrose/ Purified Water 1,596.4462 ml @ 66 mls/hr [id number] IV 11/11/24 22:00 11/12/24 21:59 Cancel Furosemide 40 mg BIDD IV 11/14/24 18:00 11/25/24 05:44 40 MG Phenylephrine HCl 250 ml @ 30 mls/hr Q8H20M IV 11/15/24 09:00 11/25/24 07:51 30 MLS/HR Acetaminophen 650 mg Q4HR PRN GT 11/17/24 08:30 11/22/24 07:10 650 MG Potassium Bicarbonate 50 meq BID PEG 11/18/24 22:00 11/25/24 09:54 50 MEQ Enteral Nutritional Formula 1,000 ml 55ML/HR GT 11/19/24 15:00 11/23/24 12:14 1,000 ML Metoclopramide HCl 5 mg Q8HR IV 11/19/24 22:00 11/24/24 15:26 5 MG Lorazepam 1 mg ONCE PRN IV 11/20/24 10:30 Polyethylene Glycol 17 gm DAILY PO 11/22/24 10:00 11/24/24 10:10 17 GM Fentanyl Citrate 250 ml @ 2.5 mls/hr Q24H IV 11/24/24 15:45 11/25/24 07:50 10 MLS/HR Examination: GENERAL:Normal, LUNGS:Abnormal (diminished on vent ), CVS:Normal, ABDOMEN:Normal, SKIN:Normal, NEURO:Normal laboratory and microbiology Laboratory Tests 11/25/24 04:00 Test 11/25/24 04:00 Range/Units Serum Glucose 105 74-106 mg/dL Microbiology Date/Time Source Procedure Growth Status 11/16/24 04:50 Urine - Cutler Port Urine Culture - Final Enterococcus faecium - VRE Complete 11/14/24 11:50 Sputum Endotracheal Wash Gram Stain - Final Complete 11/14/24 11:50 Sputum Endotracheal Wash Respiratory Culture - Final Complete 11/14/24 08:50 Blood Blood Culture - Final NO GROWTH AFTER 5 DAYS OF INCUBATION. Complete 11/14/24 04:30 Nose MRSA Screen - Final Complete Labs and/or images reviewed: Labs reviewed by me Problem List/Assessment/Plan Problem List/Assessment/Plan During her hospital course, the patient experienced episodes of bradycardia but subsequently went into a paced rhythm. She developed acute hypoxic respiratory failure and required intubation. At one point during her hospital stay, she aspirated and required re-intubation. She has been receiving daily CPAP trials as part of her respiratory management. The patient was diagnosed with enterobacter pneumonia, which has now resolved after receiving a full course of antibiotics. She developed transaminitis, which was likely contributed to by amiodarone. She has paroxysmal atrial fibrillation, and her anticoagulation is currently being held for possible tracheostomy placement. Beta-blockers are also being held due to bradycardia. For dysphagia management, the patient had a PEG tube placed and is receiving tube feeds. She has been accepted to [facility] and is awaiting transfer for continued ventilator management. Cardiac Arrest with Ventricular Fibrillation Assessment: Patient experienced cardiac arrest with ventricular fibrillation. They have a history of coronary artery disease with previous 2-vessel CABG and chronic systolic heart failure. The patient has a severely reduced left ventricular ejection fraction of 15-20% and a previously implanted mitral ring. An AICD is in place with the heart rate set at 40. The patient went into a paced rhythm following episodes of bradycardia. Plan: - Continue Mexiletine 150 mg TID - Hold anticoagulation due to possible tracheostomy placement - Hold metoprolol due to bradycardia - Vp Care Management to interrogate pacemaker - Transfer patient to [place] for continued management Acute Hypoxic Respiratory Failure Assessment: Patient developed acute hypoxic respiratory failure requiring intubation. They experienced aspiration during the hospital stay, necessitating re-intubation. The patient is currently undergoing daily CPAP trials. Plan: - Continue daily CPAP trials - Surgical consult for tracheostomy placement - Transfer to [place] for continued ventilator management - Plan for tracheostomy placement on Tuesday with Dr Anglin Paroxysmal Atrial Fibrillation Assessment: Patient has paroxysmal atrial fibrillation. Anticoagulation is currently being held due to possible tracheostomy placement. Plan: - Hold anticoagulation Transaminitis Assessment: Patient has developed transaminitis, likely contributed to by amiodarone use. Plan: - Avoid amiodarone Enterobacter Pneumonia (Resolved) Assessment: Patient had Enterobacter pneumonia which has now resolved after completing a full course of antibiotics. Dysphagia Assessment: Patient has dysphagia and underwent a g tube placement Plan: - Continue tube feedings Coronary artery disease Assessment: Patient has a history of 2-vessel CABG. Cardiology is following the patient. Plan: - Continue current management - Follow up with cardiology as scheduled Acute chronic systolic heart failure Assessment: Patient has severely reduced left ventricular ejection fraction of 15-20%. Echo findings are consistent with severely reduced left ventricular ejection fraction and previously implanted mitral ring up to moderate. Plan: - Continue Lasix - Monitor renal function Plan discussed with: Other (RN) Dietary Evaluation Review Comments: 1) TF Jevity 1.2Cal @ 55 ml/hr. x 24hr along with Pro-stat 1 pk daily. Start @ 20ml/hr, increase 10ml/hr Q4H until goal is reached. TF @ goal volume provides 1684 kcal (100% energy needs), 88 gm protein (100% protein needs), 1065 ml free water. 2) Water flush 100ml Q4H if allowed, adjust PRN 3) Advance to cardiac diet as medically feasible 4) Monitor NPO status, lab values, wt trend, I/O Expected Outcomes/Goals: To meet >75% estimated needs within 7 days Lab values to improve Fu 2-3 days Date of Service: Nov 25, 2024 Billing Provider: CARLOS WHITAKER MD Common Visit Codes: 89642-ECSZBXO INP/OBS CARE (MOD) BRAEDEN UNDERWOOD OIL SEPARATOR Nov 25, 2024 11:09
--- NOTE | 2024-11-25 12:01 | DVHPN2 ---
Progress Note - Dictate Date Seen: Nov 25, 2024 Has the PT tested + for MRSA If YES, has PT been informed?: No Medical Necessity Reason Pt with a Central, PICC or Fol: No The following are medically ne: PICC Line, Cutler Catheter Reason for cutler catheter: Strict I&O Subjective Patient seen and examined at the bedside within ICU. The patient is in normal sinus rhythm with a heart rate in the 80s. Chart reviewed. Notified by primary RN that pacer spikes occur after QRS, Device interrogation ordered. Patient's medications, allergies, past medical, surgical, social and family histories were obtained and reviewed as appropriate. vital signs Vital Sign Date Time Temp Pulse Resp B/P (MAP) Pulse Ox O2 Delivery O2 Flow Rate FiO2 11/25/24 10:23 82 17 95/51 (66) 98 30 11/25/24 10:00 Mechanical Ventilator+ 11/25/24 07:30 97.8 97.8 11/23/24 16:15 0 Total Intake and Output 11/24/24 11/24/24 11/25/24 15:00 23:00 07:00 Intake Total 320 ml 689 ml 910 ml Output Total 1150 ml 300 ml Balance 320 ml -461 ml 610 ml medications Current Medications Medications Dose Ordered Sig/Liliam Route Start Time Stop Time Status Last Admin Dose Admin Amino Acids 0 ml @ 0 mls/hr PER PHARMACY IV 10/15/24 18:45 Cancel Dextrose 50 ml UD IV 10/16/24 09:30 Cancel Vancomycin HCl 0 ml @ 0 mls/hr UD IV 10/19/24 14:00 Cancel Metoprolol Tartrate 2.5 mg Q6HPRN PRN IV 10/31/24 09:15 Amino Acids 0 ml @ 0 mls/hr PER PHARMACY IV 11/04/24 22:00 Cancel Amino Acid Protein 30 ml DAILY PO 11/04/24 10:00 11/24/24 10:10 30 ML Pantoprazole Sodium 40 mg BID IV 11/09/24 22:00 11/25/24 09:53 40 MG Mexiletine HCl 150 mg TID GT 11/10/24 22:00 11/25/24 05:44 150 MG Fat Emulsion Intravenous 150 ml/Sodium Acetate 20 meq/Potassium Acetate 30 meq/ Potassium Phosphate 19.8 meq/Calcium Gluconate 2.3 meq/ Magnesium Sulfate 4 meq/ Multivitamins 10 ml/Chromium/ Copper/Manganese/ Zinc 1 ml/Amino Acids/Dextrose/ Purified Water 1,596.4462 ml @ 66 mls/hr [id number] IV 11/11/24 22:00 11/12/24 21:59 Cancel Furosemide 40 mg BIDD IV 11/14/24 18:00 11/25/24 05:44 40 MG Phenylephrine HCl 250 ml @ 30 mls/hr Q8H20M IV 11/15/24 09:00 11/25/24 07:51 30 MLS/HR Acetaminophen 650 mg Q4HR PRN GT 11/17/24 08:30 11/22/24 07:10 650 MG Potassium Bicarbonate 50 meq BID PEG 11/18/24 22:00 11/25/24 09:54 50 MEQ Enteral Nutritional Formula 1,000 ml 55ML/HR GT 11/19/24 15:00 11/23/24 12:14 1,000 ML Metoclopramide HCl 5 mg Q8HR IV 11/19/24 22:00 11/24/24 15:26 5 MG Lorazepam 1 mg ONCE PRN IV 11/20/24 10:30 Polyethylene Glycol 17 gm DAILY PO 11/22/24 10:00 11/24/24 10:10 17 GM Fentanyl Citrate 250 ml @ 2.5 mls/hr Q24H IV 11/24/24 15:45 11/25/24 07:50 10 MLS/HR objective Heart: S1 and S2 present. The patient is in sinus rhythm. Lungs: Clear to auscultation Abdomen: Benign. Extremities: Distal pulses palpable, 2+. No evidence for peripheral edema laboratory and microbiology Laboratory Tests 11/25/24 04:00 Test 11/25/24 04:00 Range/Units Serum Glucose 105 74-106 mg/dL Assessment/Plan Still in ICU, intubated and on pressure support. No significant arrhythmia identified during this episodes. They are looking into possibility of Tracheostomy (maybe to be performed in [place]?) Cardiac arenas, patient is moderate risk patient for moderate risk tracheostomy. Avoid hypotension. Patient is a 54-year-old female who was brought to the hospital for witnessed syncope. She is intubated and is being managed in ICU. Information was obtained by reviewing the chart and communicating with patient's son (over the phone). Family recognized witnessed syncope and started CPR and called EMS. Reportedly, EMS found the patient in ventricular fibrillation and shocked the patient and brought the patient to the hospital. Patient was intubated in emergency room and transferred to ICU. Patient was on amiodarone drip. Later the patient had ventricular tachycardia (Systane). High sensitive troponin had been minimally/flatly elevated. Presentation was not in favor of acute coronary syndrome. Cardiology is involved for cardiac aspects of care. Intubated. On Vent. No JVD. Mucosa pale. No carotid bruit. Scattered rhonchi in the lungs is heard. Cardiac: Regular, no thrill. Systolic murmur 2/6 in apex is heard. Abdomen is soft. 3+ edema in extremities. Past medical history as per son: Congenital heart disease, status post bypass WBC: 14.5 - 11.9 - 18.8 - 20.0 - 21.2 - 14.3 - 10.3 - 8.9 - 9.2 - 11.1 - 12.1 - 10.8 - 12.0 - 9.9 - 15.4 - 14.8 - 12.1 - 10.5 - 5.8 - 5.3 - 4.2 - 5.8 - 4.1 - 7.0 - 9.3 - 8.3 - 11.5 - 8.4 - 8.4 - 5.4 - 5.7 - 8.4 - 7.4 - 6.2 - 6.7 - 13.9 - 11.7 - 10.1 - 8.8 - 10.7 - 13.9 - 10.6 - 11.5 - 9.6 - 7.4 Hemoglobin: 10.1 - 9.6 - 9.2 - 8.8 - 8.7 - 8.0 - 8.3 - 8.5 - 7.8 - 10.2 - 10.7 - 9.9 - 9.7 - 9.3 - 9.3 - 8.6 - 8.1 - 7.4 - 7.5 - 7.4 - 7.5 - 7.2 - 7.7 - 7.0 - (post PRBC transfusion) 10.4 - 10 - 9.5 - 10.0 - 9.2 - 9.8 -9.6 - 9.7 - 10.2 - 10.6 - 9.7 - 9.7 - 10.5 - 10.0 - 11.4 - 10.8 - 12.4 - 12.7 - 13.3 - 12.3 - 12.0 - 11.6 Creatinine: 0.95 - 0.93 - 0.87 - 0.83 - 0.83 - 0.76 - 0.68 - 0.72 - 0.79 - 0.76 - 0.80 - 0.84 - 0.61 - 0.65 - 0.74 - 0.64 - 0.73 - 0.82 - 0.88 - 1.03 - 0.99 - 0.85 - 0.87 - 0.79 - 1.12 - 1.15 - 1.04 - 0.96 - 0.94 - 0.93 - 0.78 - 0.71 - 0.68 - 0.61 - 0.59 - 0.49 - 0.39 - 0.54 - 0.48 - 0.76 - 0.93 - 0.78 - 0 078 - 0.68 - 0.70 - 0.56 -0.64 - 0.63 - 0.63 - 0.57 - 0.48 Potassium: 3.4 - 4.0 - 4.6 - 3.5 - 3.3 - 4.1 - 3.7 - 3.2 - 3.7 - 4.0 - 3.2 - 3.4 - 3.9 - 4.2 - 3.3 - 3.8 - 3.6 - 3.4 - 4.2 - 3.8 - 4.5 - 4.1 - 3.5 - 4.2 - 3.3 - 2.6 - 3.5 - 3.8 - 2.4 - 2.9 - 4.6 - 2.8 - 4.8 - 4.9 - 3.4 - 3.1 - 3.7 - 4.4 - 3.7 - 3.7 - 3.1 - 3.0 - 3.8 - 4.4 - 3.8 - 4.1 - 4.3 - 3.9 - 4.4 - 6.1 - 4.6 - 3.0 - 3.6 - 3.1 - 2.1 - 4.6 - 2.5 - 3.1 - 4.4 - 4.9 - 4.9 - 4.3 - 3.8 Magnesium: 2.0 - 1.6 - 2.0 - 3.0 - 1.5 - 1.9 - 2.1 - 1.8 - 2.0 - 1.9 - 1.9 - 2.6 - 2.0 - 1.8 - 1.6 - 2.0 - 2.2 - 1.9 - 2.3 - 2.2 - 2.2 - 2.1 - 2.1 - 1.9 2.7 - 2.6 - 2.3 - 2.4 - 2.5 - 2.3 - 2.5 - 2.3 - 2.3 - 2.4 - 2.1 - 1.9 - 2.2 - 2.1 - 2.0 - 2.4 - 2.2 - 2.0 - 2.0 - 1.6 - 2.0 - 2.0 - 2.0 - 2.1 Troponin (high sensitive): 141 - 138 - 117 BNP: 457.16 - 1073.91 - 928.14 AST/ALT: 32/11 - 19/13 - 538/168 - 293/152 - 131/130 - 78/94 - 68/74 - 48/57 - 27/38 - 15/23 - 20/18 - 23/17 - 29/16 - 27/13 - 34/17 - 73/49 - 41/43 - 30/47 - 30/42 - 29/42 - 17/27 - 160/87 - 900/478 - 986/571 - 382/436 - 110/244 - 42/170 - 22/113 - 16/77 - 15/59 - 19/50 - 20/41 - 16/32 - 17/30 - 14/25 - 25/38 - - /2337 - >6000/>6000 - 4665/>6000 - 2123/>6000 - 604/4207 - 203/2809 - 131/1787 - 64/898 - 52/456 Digoxin level: 2.83 - 1.25 - 0.98 UDS: non-revealing Chest x-ray revealed: Lines and Tubes: Endotracheal tube tip projects approximately 1.4 cm above the level of the tyler. Enteric catheter courses below the lateral of the diaphragm and terminates beyond the inferior margin of the image. Right internal jugular central venous catheter terminates within the distal superior vena cava. Lungs: Moderate diffuse increased prominence of the pulmonary vasculature without evidence of focal consolidation. Pleura: No effusion. No pneumothorax. Cardiomediastinal contours: Cardiomegaly. Bones: Unremarkable IMPRESSION: 1. Cardiomegaly and diffuse increased prominence of the pulmonary vasculature. 2. Lines and tubes as above. Repeat chest x-ray revealed: IMPRESSION: 1. Endotracheal tube tip 1.6 cm above the tyler; consider 2 cm retraction 2. Mild pulmonary vascular congestion. Moderate cardiomegaly. Repeat chest xry revealed: IMPRESSION: Endotracheal tube tip 1.6 cm above the tyler; consider 2 cm retraction Mild pulmonary vascular congestion. Moderate cardiomegaly. Repeat chest xry revealed: IMPRESSION: 1. Stable cardiomegaly, small left pleural effusion and mild diffuse increased prominence of the pulmonary vasculature. 2. Repositioned endotracheal tube as above. Remaining lines and tubes unchanged. Repeat chest xry revealed: IMPRESSION: 1. Cardiomegaly, stable diffuse increased prominence of the pulmonary vasculature and small bilateral pleural effusions. 2. Slight interval advancement of endotracheal tube as above. Remaining lines and tubes unchanged. Repeat chest xry revealed: IMPRESSION: 1. Slight interval decrease in diffuse increased prominence of the pulmonary vasculature. 2. Stable cardiomegaly and small left pleural effusion. 3. Lines and tubes unchanged. Repeat chest xry revealed: IMPRESSION: 1. Cardiomegaly and small left pleural effusion. 2. Lines and tubes unchanged. Repeat chest xry revealed: IMPRESSION: Stable lines and tubes. Similar lung aeration. Repeat chest xry revealed: IMPRESSION: Cardiomegaly and small left pleural effusion. Lines and tubes unchanged. Repeat chest xry revealed: IMPRESSION: Placement of a cardiac pacer, no pneumothorax is seen. Stable lines and tubes. Repeat chest xry revealed: IMPRESSION: 1. Worsening mixed opacities in the right lower lung. No other significant change from the previous study. Stable support devices. Repeat chest xry revealed: Heart is prominent in size with postsurgical changes, median sternotomy wires, and a single lead left cardiac defibrillator. Support lines and tubes appear unchanged in satisfactory in position. No sizable effusion or pneumothorax. Mild pulmonary vascular congestion. No significant interval change. Repeat chest xry revealed: IMPRESSION: 1. No significant change from the previous study. Stable support devices. Similar findings of heart failure including left pleural effusion. Repeat chest xry revealed: IMPRESSION: 1. No significant change from the previous study. Stable support devices. Similar findings of heart failure including trace left pleural effusion. Repeat chest xry revealed: Lines and Tubes: Unchanged. Left anterior chest wall cardiac pacing device. Lungs: Clear Pleura: No effusion. No pneumothorax. Cardiomediastinal contours: Cardiomegaly. Bones: Unremarkable IMPRESSION: 1. Cardiomegaly. 2. Lines and tubes unchanged. Repeat chest xry revealed: IMPRESSION: Lines and tubes in satisfactory position. No significant interval change. Repeat chest xry revealed: Lines and Tubes: ET tube and NG tube removed. Lungs: Congestion Pleura: No effusion. No pneumothorax. Cardiomediastinal contours: Cardiomegaly Bones: Unremarkable IMPRESSION: 1. Cardiomegaly with CHF. Repeat chest xry revealed: IMPRESSION: 1. Cardiomegaly. 2. Patchy bilateral airspace disease. Repeat chest xry revealed: FINDINGS: Lines and Tubes: None. Left anterior chest wall cardiac pacing device. Lungs: Extensive multifocal bilateral pulmonary airspace disease in a predominantly perihilar and bibasilar distribution with consolidative features. Pleura: No effusion. No pneumothorax. Cardiomediastinal contours: Poorly evaluated secondary to extensive bilateral infiltrate. Bones: Unremarkable IMPRESSION: 1. Extensive multifocal bilateral pulmonary airspace disease in a predominantly perihilar and bibasilar distribution with consolidative features. Repeat chest xry revealed: IMPRESSION: 1. Status post interval intubation. Endotracheal tube tip projects approximately 2.4 cm above the level of the tyler. 2. Grossly stable appearing moderate patchy multifocal bilateral pulmonary airspace disease with consolidative features. 3. Cardiomegaly. Repeat chest xry revealed: IMPRESSION: No significant interval change. Repeat chest xry revealed: IMPRESSION: No significant interval change Repeat chest xry revealed: IMPRESSION: 1. Interval retraction of the endotracheal tube such that the tip now projects approximately 4.5 cm above the level of the tyler. 2. Cardiomegaly. Repeat chest xry revealed: IMPRESSION: 1. Mild interval advancement of the endotracheal tube such that the tip now projects approximately 3.3 cm above the level of the tyler. 2. No evidence of acute cardiopulmonary process. Repeat chest xry revealed: IMPRESSION: Lines and tubes in satisfactory position. No significant interval change. Repeat chest xry revealed: IMPRESSION: 1. Interval advancement of endotracheal tube such that the tip now projects approximately 3.7 cm above the level of the tyler. Remaining lines and tubes unchanged. 2. Cardiomegaly. Repeat chest xry revealed: IMPRESSION: Unchanged pulmonary vascular congestion. Repeat chest xry revealed: IMPRESSION: No significant interval change. Repeat chest xry revealed: IMPRESSION: 1. Interval retraction of endotracheal tube such that the tip now projects approximately 4.5 cm above the level of the tyler. Remaining lines and tubes unchanged. 2. Cardiomegaly. Gall Bladder Ultrasound revealed: IMPRESSION: Gallstones are noted. Hepatic steatosis Trace ascites Trace bilateral pleural effusions. Hepatic cirrhosis. Liver Ultrasound revealed: Hepatic steatosis. Trace right pleural effusion. Trace ascites Gallstones Bladder ultrasound revealed: IMPRESSION: 1. Cutler catheter in the bladder in the bladder is decompressed. Repeat Bladder Ultrasound revealed: Urinary bladder is unremarkable with prevoid volume of 29 mL. Urinary bladder wall measures 1.5 mm. Cutler catheter is noted. KUB revealed: IMPRESSION: Nonobstructive bowel gas pattern. Nasogastric tube tip in the stomach. Large stool burden. Repeat KUB revealed: Right lower extremity PICC line with tip projecting over the expected region of the intrahepatic IVC. Nasogastric tube projecting towards the distal stomach. Nonspecific bowel gas pattern. Cardiomegaly and left basilar airspace opacities, incompletely characterized. Atherosclerotic calcification disease. Repeat KUB revealed: IMPRESSION: 1. Nonspecific nonobstructive bowel gas pattern. 2. Gastrostomy tube projects over the midportion of the left hemiabdomen. 3. Right femoral approach central venous catheter as described above. Repeat KUB revealed: IMPRESSION: Nonobstructive bowel gas pattern. Right central venous catheter tip in the IVC Cutler catheter overlying the bladder. Left upper ext arterial duplex: IMPRESSION: No hemodynamically significant stenosis based on peak systolic velocity criteria. Left lower ext arterial duplex: IMPRESSION: There is no evidence for peripheral vascular insufficiency in the left lower extremity. No significant focal stenosis is identified. Liver Ultrasound revealed: Hepatic steatosis. Hepatomegaly. Cholelithiasis. CT of the head revealed: IMPRESSION: No acute intracranial abnormality. Repeat CT of head revealed: IMPRESSION: No acute intracranial abnormality. Repeat CT of Head revealed: IMPRESSION: No acute intracranial abnormality. Repeat CT of head revealed: IMPRESSION: 1. No acute intracranial abnormality. 2. No findings to suggest territorial ischemia. Echocardiogram reported: lvef 15-20% dilated LV severe global dysfunction mild RV dysfunction biatrial enlargement mild moderate MAC, moderate mitral regurg mild to moderate aortic regug (images of echo reviewed and questioned presence of mitral ring and also some component (moderate of Mitral stenosis) EKG revealed sinus rhythm Telemetry revealed occasions of atrial fibrillation. There was occasional sustained ventricular tachycardia. EMS tele monitor revealed ventricular fibrillation for which the patient was shocked. Has remained sinus rhythm. Later with A-fib with MVR LHC revealed: Patent RICHMOND to LAD; Patent SVG to obtuse marginal; LVEF of 20% with increased EDP; Proximal disease in LAD/LCX RICHIE was performed: Consistent with severely reduced LVEF. Consistent with previously implanted Mitral ring, Up to moderate Mitral stenosis/Mitral Regurgitation and also Moderate Aortic insufficiency. Patient is a 54-year-old female who presented with witnessed syncope. She was found to have ventricular fibrillation for which was shocked. Later had repeated episode of sustained ventricular tachycardia. Patient has been kept in ICU. Does have baseline history of coronary artery disease for which has had bypass surgery. Left heart catheterization was performed which revealed patent RICHMOND and patent SVG. ACS is not considered at this point. It is of note that the patient's echocardiogram reveals significantly use systolic function. Valvular heart disease is considered. Findings are in favor of previously implanted mitral ring. By reviewing the echo images, component of up to moderate mitral stenosis could not be ruled out. LHC was performed that ruled out any active specific ischemia as an etiology for presentation. Is off Amiodarone for abnormal LFT. Being followed by Nephrology / Pulmonary / Neurology / GI ID. Tele has remained sinus rhythm. Had episode of a-fib with RVR. Was loaded with Digoxin. Dig level was performed at wrong timing (only 5 hours after the last Dig given). Dig toxicity is not considered. Patient is back to normal sinus rhythm. Has good kidney function. Repeat Dig level is acceptable level. s/p ICD implantation by EP. Intubated, later extubated. s/p PEG. Later had respiratory failure and was taken back to ICU. Imaging question pneumonia (can it be aspiration?). Eventhough repeat BNP has not increased (decreased somehow), patient does have peripheral edema and component of acute on chronic Systolic heart failure could also contribute to respiratory failure. The site of ICD implantation was reviewed by EP (Dr Armstrong on 05/13/2024): healing well (personal communication). Had repeat respiratory failure, back in ICU and intubated. Abnormal LFT. Found to have gall stone and Liver cirrhosis Syncope V-fib s/p shock Sustained V-tach Paroxysmal A-fib VHD, s/p Mitral ring Systolic heart failure Abnormal LFT, at a point resolved, later appeared again s/p ICD (Biotronik) implantation by EP (Dr Armstrong) s/p PRBC transfusion for significant anemia Hepatic Steatosis Gallstones Failed Swallowing s/p PEG Acute respiratory failure Acute on chronic systolic heart failure Gallstone Liver cirrhosis Cardiac suggestion for management: IV diuresis Follow up electrolytes and kidney function test and correct abnormalities Full anticoagulation (a-fib with high CHADS-Vasc score). s/p ICD implantation. On Eliquis On Mexiletine On Levo-Phed: keep MAP above 65 (for now off pressure support and tolerating) Was on Metoprolol to decrease risk of Vtach (as patient has ICD with bradycardia protection: may continue metoprolol in case of bradycardia, but hold: if hypotensive). For now will stop/hold Metoprolol May consider/add Esmolol for PVC/Vtach (if needed) Cardiac arenas, patient is moderate risk patient for moderate risk tracheostomy. Avoid hypotension. s/p ICD (Biotronik) implantation by EP Eliquis: 2.5 mg BID s/p PEG Pulmonary Follow up GI follow up Management of repeat respiratory failure, pneumonia as per primary team/pulmonary Provide previous medical records from reaching out to previous hospitals in [facility]... Proceed with close rate and rhythm surveillance Proceed with close hemodynamic surveillance Proceed with optimized blood pressure control Transfuse to sustain HGB level above 7.0 Sustain Magnesium level greater than 2.0 Sustain Potassium level greater than 4.0 Follow up renal function and electrolytes Management of ongoing concurrent medical conditions as per primary team Management of beta-hemolytic group B strep as per primary team/ID Management comorbidities as per primary team Management in the ICU Follow up insurance healthcare consultant recommendations Will proceed to follow from an EP perspective Further recommendations per clinical progression All available diagnostic labs, EKG's, and images were personally reviewed Patient's status, findings, and plan of care was reviewed and discussed with supervising physician Dr. Armstrong, who is in agreement with current plan of care. Plan of care discussed with and agreed upon by family / primary RN Prognosis: Guarded Thank you for allowing me to participate in the care of this patient. Further recommendations based on patients clinical course and progression, primary attending, and other consultants. Will continue to follow with primary attending. If you have any questions or concerns, please do not hesitate to contact me. A total of 75 minutes was spent reviewing the patient record, examining the patient, making a diagnostic and therapeutic plan, discussing this plan with medical personnel, following up on diagnostic studies and following the patient for clinical stability excluding any and all procedures. At least 50% of this time was spent in direct, [id number] contact. Dietary Evaluation Review Comments: 1) TF Jevity 1.2Cal @ 55 ml/hr. x 24hr along with Pro-stat 1 pk daily. Start @ 20ml/hr, increase 10ml/hr Q4H until goal is reached. TF @ goal volume provides 1684 kcal (100% energy needs), 88 gm protein (100% protein needs), 1065 ml free water. 2) Water flush 100ml Q4H if allowed, adjust PRN 3) Advance to cardiac diet as medically feasible 4) Monitor NPO status, lab values, wt trend, I/O Expected Outcomes/Goals: To meet >75% estimated needs within 7 days Lab values to improve Fu 2-3 days Plan discussed with: PENNY Barrett NP Nov 25, 2024 12:01
--- NOTE | 2024-11-25 18:26 | DVHPN2 ---
Consult Progress Note Objective vital signs Vital Sign Date Time Temp Pulse Resp B/P (MAP) Pulse Ox O2 Delivery O2 Flow Rate FiO2 11/25/24 18:15 100 Mechanical Ventilator+ 30 30 11/25/24 18:15 91 12 116/62 (80) 11/25/24 12:15 98.6 98.6 11/23/24 16:15 0 Total Intake and Output 11/24/24 11/24/24 11/25/24 15:00 23:00 07:00 Intake Total 320 ml 689 ml 910 ml Output Total 1150 ml 300 ml Balance 320 ml -461 ml 610 ml medications Current Medications Medications Dose Ordered Sig/Liliam Route Start Time Stop Time Status Last Admin Dose Admin Amino Acids 0 ml @ 0 mls/hr PER PHARMACY IV 10/15/24 18:45 Cancel Dextrose 50 ml UD IV 10/16/24 09:30 Cancel Vancomycin HCl 0 ml @ 0 mls/hr UD IV 10/19/24 14:00 Cancel Metoprolol Tartrate 2.5 mg Q6HPRN PRN IV 10/31/24 09:15 Amino Acids 0 ml @ 0 mls/hr PER PHARMACY IV 11/04/24 22:00 Cancel Amino Acid Protein 30 ml DAILY PO 11/04/24 10:00 11/25/24 10:00 30 ML Pantoprazole Sodium 40 mg BID IV 11/09/24 22:00 11/25/24 09:53 40 MG Mexiletine HCl 150 mg TID GT 11/10/24 22:00 11/25/24 15:27 150 MG Fat Emulsion Intravenous 150 ml/Sodium Acetate 20 meq/Potassium Acetate 30 meq/ Potassium Phosphate 19.8 meq/Calcium Gluconate 2.3 meq/ Magnesium Sulfate 4 meq/ Multivitamins 10 ml/Chromium/ Copper/Manganese/ Zinc 1 ml/Amino Acids/Dextrose/ Purified Water 1,596.4462 ml @ 66 mls/hr [id number] IV 11/11/24 22:00 11/12/24 21:59 Cancel Furosemide 40 mg BIDD IV 11/14/24 18:00 11/25/24 17:45 40 MG Phenylephrine HCl 250 ml @ 30 mls/hr Q8H20M IV 11/15/24 09:00 11/25/24 07:51 30 MLS/HR Acetaminophen 650 mg Q4HR PRN GT 11/17/24 08:30 11/22/24 07:10 650 MG Potassium Bicarbonate 50 meq BID PEG 11/18/24 22:00 11/25/24 09:54 50 MEQ Enteral Nutritional Formula 1,000 ml 55ML/HR GT 11/19/24 15:00 11/23/24 12:14 1,000 ML Metoclopramide HCl 5 mg Q8HR IV 11/19/24 22:00 11/24/24 15:26 5 MG Lorazepam 1 mg ONCE PRN IV 11/20/24 10:30 Polyethylene Glycol 17 gm DAILY PO 11/22/24 10:00 11/24/24 10:10 17 GM Fentanyl Citrate 250 ml @ 2.5 mls/hr Q24H IV 11/24/24 15:45 11/25/24 07:50 10 MLS/HR laboratory and microbiology Laboratory Tests 11/25/24 04:00 Test 11/25/24 04:00 Range/Units Serum Glucose 105 74-106 mg/dL Problem List/Assessment/Plan Problem List/Assessment/Plan Problems(with codes): (1) Pneumonia (2) Cardiac arrest (3) Ventricular fibrillation (4) Sepsis, unspecified organism Plan/Recommendation ASSESSMENT AND PLAN: ID Problem List: \-- Status post cardiac arrest with return of spontaneous circulation (ROSC) \-- Ventricular tachycardia and atrial fibrillation \-- Recent aspiration event/pneumonitis versus pneumonia, Enterobacter cloacae isolated \-- Severe reduced ejection fraction (EF 1520%), dilated LV, severe global dysfunction \-- History of CABG with stents, mitral ring implant \-- Hypothermia, hypoxia requiring intubation and sedation \-- Sepsis (suspected/treated), leukocytosis (now resolved) \-- Ongoing vasopressor requirement (phenylephrine) \-- ICD placement planned Assessment Ms. Smith is a 54-year-old female with a past medical history notable for prior coronary artery bypass grafting (CABG) with stenting, recent mitral ring implant, and significant cardiac disease. She presented on 10/07 with an acute witnessed cardiac arrest during dinner; initial rhythm was ventricular tachycardia/atrial fibrillation. ROSC was achieved on EMS arrival after a single shock and Narcan administration. She was found to be hypothermic and hypotensive and required intubation for airway protection due to altered mental status. During her ICU course, she had recurrent ventricular tachycardia and atrial fibrillation, managed with antiarrhythmic drip (amiodarone), vasopressors (initially Levophed, currently phenylephrine), and heparin drip. Echocardiogram and left heart catheterization confirmed poor left ventricular function (EF 1520%, dilated LV) and patent bypass grafts. The patient also experienced aspiration pneumonitis, with Enterobacter cloacae isolated from sputum (sensitive to cefepime); empiric antibiotics were escalated to ertapenem following transient fever and leukocytosis, which have since resolved. Currently, she remains intubated on pressure support (tolerating CPAP trials), minimally following commands. She is on phenylephrine, Lasix drip, and heparin drip, with ongoing close monitoring. Cardiology in agreement to proceed with ICD placement given recurrent arrhythmias. Infectious disease clearance provided for this, as there is no evidence of persistent infection or sepsis (blood cultures negative, leukocytosis resolved). 10/12: awaiting AICD placement 10/13: sputum culture was done for further evaluation of persistent pneumonia , no thick secretions 10/14:Dr. bernardo recommends stopping aminopterin drip and LFTs appear to be improving with this change 10/15:lfts are normalizing , sputum shows krystal colonization 10/16: holding excavation til placement 10/17:s/p AICD placement and tolerated procedure . lfts are normal and off amioterine drip 10/18: sp Status post successful implantation of dual chamber AICD, DX Biotronik, Device was programmed into VDI lower rate of 40 bpm 10/19: unclear if patient aspirated vs developed new infection 10/20: levofed at 2 mics and started on steroids agree with continuing regimen until able to titrate off . suspect aspiration pneumonia , has high tube feed residuals . chest xray shows little changes but there is mild congestion in the right lung base , patient remains hypotensive . blood cultures no growth to date as well as urine cultures .appears to be recovering now that antibiotics have been re initiated 10/21:chest xray shows right lower lung base infiltrates , suspect aspiration pneumonia due to high tube feed residuals Plan: - large suspicion for aspiration pneumonia , discontinue vancomycin and continue zosyn for now - if hypoxia remains stable and continues to come off pressers support would discontinue zosyn in 2-3 days - defer to primary and risk management specialist team for management - keep maps above 65 - f/u on blood and urine culture results - continue zosyn - continue antibiotics \-- Maintain phenylephrine drip; titrate as needed to maintain MAP. \-- Monitor neurological status; currently, patient is intermittently following commands and is becoming more alert \-- No evidence of active sepsis or bacteremia at this time. \-- Continue supportive ICU care and multidisciplinary management. Authorized and Performed by: soham gramajo md Total critical care time: Approximately 36 minutes Due to a high probability of clinically significant, life threatening deterioration, the patient required my highest level of preparedness to intervene emergently and I personally spent this critical care time directly and personally managing the patient. This critical care time included obtaining a history; examining the patient; pulse oximetry; ordering and review of studies; arranging urgent treatment with development of a management plan; evaluation of patient's response to treatment; frequent reassessment; and, discussions with other providers. This critical care time was performed to assess and manage the high probability of imminent, life-threatening deterioration that could result in multi-organ failure. It was exclusive of separately billable procedures and treating other patients and teaching time. Isolation Precautions: Standard Dietary Evaluation Review Comments: 1) TF Jevity 1.2Cal @ 55 ml/hr. x 24hr along with Pro-stat 1 pk daily. Start @ 20ml/hr, increase 10ml/hr Q4H until goal is reached. TF @ goal volume provides 1684 kcal (100% energy needs), 88 gm protein (100% protein needs), 1065 ml free water. 2) Water flush 100ml Q4H if allowed, adjust PRN 3) Advance to cardiac diet as medically feasible 4) Monitor NPO status, lab values, wt trend, I/O Expected Outcomes/Goals: To meet >75% estimated needs within 7 days Lab values to improve Fu 2-3 days SOHAM GRAMAJO MD Nov 25, 2024 18:26
--- NOTE | 2024-11-25 19:30 | DVHPN2 ---
Subjective DOS: 11/23/2024 Patient seen and examined at bedside. Intubated on mechanical ventilator. Overnight events reviewed. Changes from previous H/P or p: No Changes Objective Vitals Vital Signs Date Time Temp Pulse Resp B/P (MAP) Pulse Ox O2 Delivery O2 Flow Rate FiO2 11/25/24 19:15 91 12 107/53 99 30 11/25/24 18:15 Mechanical Ventilator+ 11/25/24 12:15 98.6 98.6 11/23/24 16:15 0 Intake/Output Intake and Output 11/25/24 07:00 Intake Total 1919 ml Output Total 1450 ml Balance 469 ml Intake Oral 100 ml IV Total 800 ml Tube Feeding 1019 ml Output Urine Total 1450 ml # Bowel Movements 2 Exam Gen.: Patient lying in bed in medical ICU. Intubated on mechanical ventilator. Head: Normocephalic, atraumatic. Eyes: PERRLA. Ears: Normal external anatomy. Throat: Endotracheal tube and orogastric tube in place. Neck: Supple, trachea midline. Chest: Transmitted breath sounds bilaterally. Decreased air entry bilaterally. No wheezing. Bibasilar crackles. Cardiovascular: Positive S1, positive S2. Regular rate and rhythm. Abdomen: Positive bowel sounds in all 4 quadrants. Soft, nontender, nondistended. : [place] in place. Normal external genitalia. Rectal: Deferred. Skin: Warm, dry. Intact. Extremities: 2+ radial pulses bilaterally. No lower extremity edema. Neuro: Off sedation Medications Current Medications Medications Dose Ordered Sig/Liliam Route Start Time Stop Time Status Last Admin Dose Admin Amino Acids 0 ml @ 0 mls/hr PER PHARMACY IV 10/15/24 18:45 Cancel Dextrose 50 ml UD IV 10/16/24 09:30 Cancel Vancomycin HCl 0 ml @ 0 mls/hr UD IV 10/19/24 14:00 Cancel Metoprolol Tartrate 2.5 mg Q6HPRN PRN IV 10/31/24 09:15 Amino Acids 0 ml @ 0 mls/hr PER PHARMACY IV 11/04/24 22:00 Cancel Amino Acid Protein 30 ml DAILY PO 11/04/24 10:00 11/25/24 10:00 30 ML Pantoprazole Sodium 40 mg BID IV 11/09/24 22:00 11/25/24 09:53 40 MG Mexiletine HCl 150 mg TID GT 11/10/24 22:00 11/25/24 15:27 150 MG Fat Emulsion Intravenous 150 ml/Sodium Acetate 20 meq/Potassium Acetate 30 meq/ Potassium Phosphate 19.8 meq/Calcium Gluconate 2.3 meq/ Magnesium Sulfate 4 meq/ Multivitamins 10 ml/Chromium/ Copper/Manganese/ Zinc 1 ml/Amino Acids/Dextrose/ Purified Water 1,596.4462 ml @ 66 mls/hr [id number] IV 11/11/24 22:00 11/12/24 21:59 Cancel Furosemide 40 mg BIDD IV 11/14/24 18:00 11/25/24 17:45 40 MG Phenylephrine HCl 250 ml @ 30 mls/hr Q8H20M IV 11/15/24 09:00 11/25/24 07:51 30 MLS/HR Acetaminophen 650 mg Q4HR PRN GT 11/17/24 08:30 11/22/24 07:10 650 MG Potassium Bicarbonate 50 meq BID PEG 11/18/24 22:00 11/25/24 09:54 50 MEQ Enteral Nutritional Formula 1,000 ml 55ML/HR GT 11/19/24 15:00 11/23/24 12:14 1,000 ML Metoclopramide HCl 5 mg Q8HR IV 11/19/24 22:00 11/24/24 15:26 5 MG Lorazepam 1 mg ONCE PRN IV 11/20/24 10:30 Polyethylene Glycol 17 gm DAILY PO 11/22/24 10:00 11/24/24 10:10 17 GM Fentanyl Citrate 250 ml @ 2.5 mls/hr Q24H IV 11/24/24 15:45 11/25/24 07:50 10 MLS/HR Laboratory Results Laboratory Tests 11/25/24 04:00 Chemistry Test 11/25/24 04:00 Albumin 2.6 g/dL (3.2-4.8) L Calcium Level 8.4 mg/dL (8.7-10.4) L Total Protein 4.9 g/dL (5.7-8.2) L LFT Test 11/25/24 04:00 Alanine Aminotransferase (ALT) 291 U/L (7-40) H Alkaline Phosphatase 154 U/L (46-116) H Aspartate Amino Transferase (AST) 43 U/L (13-40) H Total Bilirubin 1.7 mg/dL (0.2-1.0) H Urinalysis Test 10/09/24 22:25 11/15/24 04:00 Urine Creatinine 31.20 mg/dL (30.0-125.0) Urine Protein/Creatinine Ratio 0.72 Urine Sodium 79 mmol/L (40-220) Urine Total Protein 22.5 mg/dL (1-14) H Urine Color Yellow (Yellow) Urine Clarity Turbid (Clear) H Urine pH 5.0 (5.0-9.0) Urine Specific [place] 1.012 (1.001-1.035) Urine Protein Trace (Negative) H Urine Ketones Negative (Negative) Urine Blood 2+ /uL (Negative) H Urine Nitrite Negative (Negative) Urine Bilirubin Negative (Negative) Urine Urobilinogen Normal mg/dL (Negative) Urine Leukocyte Esterase 1+ /uL (Negative) Urine RBC 3 /hpf (0 - 4) Urine Microscopic WBC 14 /HPF (0-5) H Urine Squamous Epithelial Cells Few /hpf (<5) Urine Calcium Oxalate Crystals Few (None Seen) Urine Amorphous Crystals Few /hpf (None Seen) Urine Bacteria Few /hpf (None Seen) H Urine Hyaline Casts Mod /lpf (0 - 2) Urine Mucus Few (None Seen) Urine Glucose Normal mg/dL (Normal) Blood Gas Results Test 11/25/24 08:37 Arterial Blood pH 7.501 (7.350-7.450) FiO2 % 30.0 Microbiology Microbiology Date/Time Source Procedure Growth Status 11/16/24 04:50 Urine - [place] Urine Culture - Final Enterococcus faecium - VRE Complete 11/14/24 11:50 Sputum Endotracheal Wash Gram Stain - Final Complete 11/14/24 11:50 Sputum Endotracheal Wash Respiratory Culture - Final Complete 11/14/24 08:50 Blood Blood Culture - Final NO GROWTH AFTER 5 DAYS OF INCUBATION. Complete 11/14/24 04:30 Nose MRSA Screen - Final Complete Assessment/Plan Assessment/Plan Impression: Acute hypoxic respiratory failure On mechanical ventilator s/p cardiac arrest Ventricular tachycardia CPR <5 min Elevated troponin Atelectasis Anemia Events: Remains on vent support Currently on assist control with respiratory rate of 16, tidal volume 350, PEEP 5, FiO2 of 30% CPAP trial CPAP with PS 8, PEEP 5, FiO2 30%. Mentation not at goal for extubation. ABG reviewed, notable for alkalemia due to metabolic alkalosis. CXR shows cardiomegaly. Devices in place. Continue antibiotics Continue IV steroids Monitor hemoglobin Continue diuresis w/ Lasix Monitor renal function Monitor electrolytes. Supplement as necessary Potassium supplementation Protonix BID for GI prophylaxis Tube feeds for nutritional support Plan for tracheostomy. Recommend tracheostomy vs. [facility] acute care. Plan for LTAC when bed available. Awaiting for mentation to improve. Labs and imaging reviewed. Rest of plan as noted below. Plan: On mechanical ventilator Settings: Assist control with respiratory rate of 16, tidal volume 350, PEEP 5, FiO2 of 30% Titrate FiO2 to keep sats above 92%. VAP bundle Continue antibiotics. F/u cultures. Sputum culture shows normal oropharyngeal melissa. Urine culture notable for Gram-positive melissa, greater than 100 K. follow up final report. Continue antifungal IV steroids Pressors as necessary for hemodynamic support. Titrate to keep MAP greater than 65 mmHg. Stress dose steroids. Taper down as tolerated. Monitor hemoglobin Accu-Cheks, ISS PRN. Monitor labs Monitor renal function. On diuresis with Lasix twice daily. Monitor electrolytes. Supplement as necessary. Supplement potassium Magnesium at goal Monitor ins and outs. Maintain euvolemia Cardiology recommendations appreciated. On Protonix twice daily GI/DVT prophylaxis. On Eliquis twice daily. Prognosis: Poor given patient's multiple co-morbidities. Condition: Critical Rest of plan per hospitalist and other consultants. A total of 35 minutes of critical care time was spent reviewing the patient record, examining the patient, making a diagnostic and therapeutic plan, discussing this plan with the medical personnel, following up on diagnostic studies and following the patient for clinical stability excluding any and all procedures. At least 50% of this time was spent in direct, [id number] contact. Thank you, YURI Gomez, for allowing me to participate in this patient's care. Further recommendations will depend on the patient's clinical course. Please do not hesitate to contact me if you have any questions or concerns. This medical document was created using an electronic medical record system with [employer] system. Although these documentations are being carefully reviewed, there may still be some phonetic and typographical changes. The errors are purely typographical, due to imperfection on the software program, and do not reflect any compromise in the patient's medical care. Plan discussed with: Other (CEE Hammond) My Orders Orders - KENNY FROST MD Procedure Category Date Status Time Abg W/ Co-Ox RT 11/25/24 Logged 06:00 Communication Order ORDERS 11/25/24 Transmitted 19:20 Date of Service: Nov 23, 2024 Billing Provider: KENNY FROST MD Common Visit Codes: [id number] INP/OBS CARE(HIGH), [id number] CARE 30-74 MIN KENNY FROST MD Nov 25, 2024 19:30
--- NOTE | 2024-11-25 23:02 | DVHPN2 ---
Subjective DOS: 11/24/2024 Patient seen and examined at bedside. Intubated on mechanical ventilator. Overnight events reviewed. Changes from previous H/P or p: No Changes Objective Vitals Vital Signs Date Time Temp Pulse Resp B/P (MAP) Pulse Ox O2 Delivery O2 Flow Rate FiO2 11/25/24 22:16 90 14 114/51 (72) 99 30 11/25/24 22:00 Mechanical Ventilator+ 11/25/24 12:15 98.6 98.6 11/23/24 16:15 0 Intake/Output Intake and Output 11/25/24 07:00 Intake Total 1919 ml Output Total 1450 ml Balance 469 ml Intake Oral 100 ml IV Total 800 ml Tube Feeding 1019 ml Output Urine Total 1450 ml # Bowel Movements 2 Exam Gen.: Patient lying in bed in medical ICU. Intubated on mechanical ventilator. Head: Normocephalic, atraumatic. Eyes: PERRLA. Ears: Normal external anatomy. Throat: Endotracheal tube and orogastric tube in place. Neck: Supple, trachea midline. Chest: Transmitted breath sounds bilaterally. Decreased air entry bilaterally. No wheezing. Bibasilar crackles. Cardiovascular: Positive S1, positive S2. Regular rate and rhythm. Abdomen: Positive bowel sounds in all 4 quadrants. Soft, nontender, nondistended. : [place] in place. Normal external genitalia. Rectal: Deferred. Skin: Warm, dry. Intact. Extremities: 2+ radial pulses bilaterally. No lower extremity edema. Neuro: Off sedation Medications Current Medications Medications Dose Ordered Sig/Liliam Route Start Time Stop Time Status Last Admin Dose Admin Amino Acids 0 ml @ 0 mls/hr PER PHARMACY IV 10/15/24 18:45 Cancel Dextrose 50 ml UD IV 10/16/24 09:30 Cancel Vancomycin HCl 0 ml @ 0 mls/hr UD IV 10/19/24 14:00 Cancel Metoprolol Tartrate 2.5 mg Q6HPRN PRN IV 10/31/24 09:15 Amino Acids 0 ml @ 0 mls/hr PER PHARMACY IV 11/04/24 22:00 Cancel Amino Acid Protein 30 ml DAILY PO 11/04/24 10:00 11/25/24 10:00 30 ML Pantoprazole Sodium 40 mg BID IV 11/09/24 22:00 11/25/24 22:13 40 MG Mexiletine HCl 150 mg TID GT 11/10/24 22:00 11/25/24 22:13 150 MG Fat Emulsion Intravenous 150 ml/Sodium Acetate 20 meq/Potassium Acetate 30 meq/ Potassium Phosphate 19.8 meq/Calcium Gluconate 2.3 meq/ Magnesium Sulfate 4 meq/ Multivitamins 10 ml/Chromium/ Copper/Manganese/ Zinc 1 ml/Amino Acids/Dextrose/ Purified Water 1,596.4462 ml @ 66 mls/hr [id number] IV 11/11/24 22:00 11/12/24 21:59 Cancel Furosemide 40 mg BIDD IV 11/14/24 18:00 11/25/24 17:45 40 MG Phenylephrine HCl 250 ml @ 30 mls/hr Q8H20M IV 11/15/24 09:00 11/25/24 07:51 30 MLS/HR Acetaminophen 650 mg Q4HR PRN GT 11/17/24 08:30 11/22/24 07:10 650 MG Potassium Bicarbonate 50 meq BID PEG 11/18/24 22:00 11/25/24 22:14 50 MEQ Enteral Nutritional Formula 1,000 ml 55ML/HR GT 11/19/24 15:00 11/23/24 12:14 1,000 ML Metoclopramide HCl 5 mg Q8HR IV 11/19/24 22:00 11/25/24 22:13 5 MG Lorazepam 1 mg ONCE PRN IV 11/20/24 10:30 Polyethylene Glycol 17 gm DAILY PO 11/22/24 10:00 11/24/24 10:10 17 GM Fentanyl Citrate 250 ml @ 2.5 mls/hr Q24H IV 11/24/24 15:45 11/25/24 07:50 10 MLS/HR Laboratory Results Laboratory Tests 11/25/24 04:00 Chemistry Test 11/25/24 04:00 Albumin 2.6 g/dL (3.2-4.8) L Calcium Level 8.4 mg/dL (8.7-10.4) L Total Protein 4.9 g/dL (5.7-8.2) L LFT Test 11/25/24 04:00 Alanine Aminotransferase (ALT) 291 U/L (7-40) H Alkaline Phosphatase 154 U/L (46-116) H Aspartate Amino Transferase (AST) 43 U/L (13-40) H Total Bilirubin 1.7 mg/dL (0.2-1.0) H Urinalysis Test 10/09/24 22:25 11/15/24 04:00 Urine Creatinine 31.20 mg/dL (30.0-125.0) Urine Protein/Creatinine Ratio 0.72 Urine Sodium 79 mmol/L (40-220) Urine Total Protein 22.5 mg/dL (1-14) H Urine Color Yellow (Yellow) Urine Clarity Turbid (Clear) H Urine pH 5.0 (5.0-9.0) Urine Specific [place] 1.012 (1.001-1.035) Urine Protein Trace (Negative) H Urine Ketones Negative (Negative) Urine Blood 2+ /uL (Negative) H Urine Nitrite Negative (Negative) Urine Bilirubin Negative (Negative) Urine Urobilinogen Normal mg/dL (Negative) Urine Leukocyte Esterase 1+ /uL (Negative) Urine RBC 3 /hpf (0 - 4) Urine Microscopic WBC 14 /HPF (0-5) H Urine Squamous Epithelial Cells Few /hpf (<5) Urine Calcium Oxalate Crystals Few (None Seen) Urine Amorphous Crystals Few /hpf (None Seen) Urine Bacteria Few /hpf (None Seen) H Urine Hyaline Casts Mod /lpf (0 - 2) Urine Mucus Few (None Seen) Urine Glucose Normal mg/dL (Normal) Blood Gas Results Test 11/25/24 08:37 Arterial Blood pH 7.501 (7.350-7.450) FiO2 % 30.0 Microbiology Microbiology Date/Time Source Procedure Growth Status 11/16/24 04:50 Urine - [place] Urine Culture - Final Enterococcus faecium - VRE Complete 11/14/24 11:50 Sputum Endotracheal Wash Gram Stain - Final Complete 11/14/24 11:50 Sputum Endotracheal Wash Respiratory Culture - Final Complete 11/14/24 08:50 Blood Blood Culture - Final NO GROWTH AFTER 5 DAYS OF INCUBATION. Complete 11/14/24 04:30 Nose MRSA Screen - Final Complete Assessment/Plan Assessment/Plan Impression: Acute hypoxic respiratory failure On mechanical ventilator s/p cardiac arrest Ventricular tachycardia CPR <5 min Elevated troponin Atelectasis Anemia Events: Remains on vent support Currently on assist control with respiratory rate of 16, tidal volume 350, PEEP 5, FiO2 of 30% Daily CPAP trials CPAP with PS 8, PEEP 5, FiO2 30%. Mentation not at goal for extubation. ABG reviewed, notable for alkalemia due to metabolic alkalosis. Protonix BID for GI prophylaxis Monitor hemoglobin Tube feeds for nutritional support Plan for tracheostomy. Recommend tracheostomy vs. custodial acute care. Plan for LTAC when bed available. Continue CPAP trial as long as tolerated Awaiting for mentation to improve. Labs and imaging reviewed. Plan: On mechanical ventilator Settings: Assist control with respiratory rate of 16, tidal volume 350, PEEP 5, FiO2 of 30% Titrate FiO2 to keep sats above 92%. VAP bundle Completed antibiotics. F/u cultures. Antifungal Completed steroids Pressors as necessary for hemodynamic support. Titrate to keep MAP greater than 65 mmHg. Monitor hemoglobin Accu-Cheks, ISS PRN. Monitor labs Monitor renal function. Maintain euvolemia Monitor electrolytes. Supplement as necessary. Monitor ins and outs. Maintain euvolemia Cardiology recommendations appreciated. On Protonix twice daily GI/DVT prophylaxis. On Eliquis twice daily. Prognosis: Poor given patient's multiple co-morbidities. Condition: Critical Rest of plan per hospitalist and other consultants. A total of 35 minutes of critical care time was spent reviewing the patient record, examining the patient, making a diagnostic and therapeutic plan, discussing this plan with the medical personnel, following up on diagnostic studies and following the patient for clinical stability excluding any and all procedures. At least 50% of this time was spent in direct, [id number] contact. Thank you, YURI Gomez, for allowing me to participate in this patient's care. Further recommendations will depend on the patient's clinical course. Please do not hesitate to contact me if you have any questions or concerns. This medical document was created using an electronic medical record system with [employer] dictation system. Although these documentations are being carefully reviewed, there may still be some phonetic and typographical changes. The errors are purely typographical, due to imperfection on the software program, and do not reflect any compromise in the patient's medical care. Plan discussed with: Other (RN) My Orders Orders - KENNY FROST MD Procedure Category Date Status Time Abg W/ Co-Ox RT 11/25/24 Logged 06:00 Communication Order ORDERS 11/25/24 Transmitted 19:20 Date of Service: Nov 24, 2024 Billing Provider: KENNY FROST MD Common Visit Codes: [id number] INP/OBS CARE(HIGH), [id number] CARE 30-74 MIN KENNY FROST MD Nov 25, 2024 23:02
--- NOTE | 2024-11-25 23:39 | DVHPN2 ---
Subjective DOS: 11/25/2024 Patient seen and examined at bedside. Intubated on mechanical ventilator. Overnight events reviewed. Changes from previous H/P or p: No Changes Objective Vitals Vital Signs Date Time Temp Pulse Resp B/P (MAP) Pulse Ox O2 Delivery O2 Flow Rate FiO2 11/25/24 22:45 80 16 103/53 (70) 99 11/25/24 22:16 30 11/25/24 22:00 Mechanical Ventilator+ 11/25/24 20:00 98.2 98.2 11/23/24 16:15 0 Intake/Output Intake and Output 11/25/24 07:00 Intake Total 1919 ml Output Total 1450 ml Balance 469 ml Intake Oral 100 ml IV Total 800 ml Tube Feeding 1019 ml Output Urine Total 1450 ml # Bowel Movements 2 Exam Gen.: Patient lying in bed in medical ICU. Intubated on mechanical ventilator. Head: Normocephalic, atraumatic. Eyes: PERRLA. Ears: Normal external anatomy. Throat: Endotracheal tube and orogastric tube in place. Neck: Supple, trachea midline. Chest: Transmitted breath sounds bilaterally. Decreased air entry bilaterally. No wheezing. Bibasilar crackles. Cardiovascular: Positive S1, positive S2. Regular rate and rhythm. Abdomen: Positive bowel sounds in all 4 quadrants. Soft, nontender, nondistended. : [place] in place. Normal external genitalia. Rectal: Deferred. Skin: Warm, dry. Intact. Extremities: 2+ radial pulses bilaterally. No lower extremity edema. Neuro: Off sedation Medications Current Medications Medications Dose Ordered Sig/Liliam Route Start Time Stop Time Status Last Admin Dose Admin Amino Acids 0 ml @ 0 mls/hr PER PHARMACY IV 10/15/24 18:45 Cancel Dextrose 50 ml UD IV 10/16/24 09:30 Cancel Vancomycin HCl 0 ml @ 0 mls/hr UD IV 10/19/24 14:00 Cancel Metoprolol Tartrate 2.5 mg Q6HPRN PRN IV 10/31/24 09:15 Amino Acids 0 ml @ 0 mls/hr PER PHARMACY IV 11/04/24 22:00 Cancel Amino Acid Protein 30 ml DAILY PO 11/04/24 10:00 11/25/24 10:00 30 ML Pantoprazole Sodium 40 mg BID IV 11/09/24 22:00 11/25/24 22:13 40 MG Mexiletine HCl 150 mg TID GT 11/10/24 22:00 11/25/24 22:13 150 MG Fat Emulsion Intravenous 150 ml/Sodium Acetate 20 meq/Potassium Acetate 30 meq/ Potassium Phosphate 19.8 meq/Calcium Gluconate 2.3 meq/ Magnesium Sulfate 4 meq/ Multivitamins 10 ml/Chromium/ Copper/Manganese/ Zinc 1 ml/Amino Acids/Dextrose/ Purified Water 1,596.4462 ml @ 66 mls/hr [id number] IV 11/11/24 22:00 11/12/24 21:59 Cancel Furosemide 40 mg BIDD IV 11/14/24 18:00 11/25/24 17:45 40 MG Phenylephrine HCl 250 ml @ 30 mls/hr [id number] IV 11/15/24 09:00 11/25/24 07:51 30 MLS/HR Acetaminophen 650 mg Q4HR PRN GT 11/17/24 08:30 11/22/24 07:10 650 MG Potassium Bicarbonate 50 meq BID PEG 11/18/24 22:00 11/25/24 22:14 50 MEQ Enteral Nutritional Formula 1,000 ml 55ML/HR GT 11/19/24 15:00 11/23/24 12:14 1,000 ML Metoclopramide HCl 5 mg Q8HR IV 11/19/24 22:00 11/25/24 22:13 5 MG Lorazepam 1 mg ONCE PRN IV 11/20/24 10:30 Polyethylene Glycol 17 gm DAILY PO 11/22/24 10:00 11/24/24 10:10 17 GM Fentanyl Citrate 250 ml @ 2.5 mls/hr Q24H IV 11/24/24 15:45 11/25/24 07:50 10 MLS/HR Laboratory Results Laboratory Tests 11/25/24 04:00 Chemistry Test 11/25/24 04:00 Albumin 2.6 g/dL (3.2-4.8) L Calcium Level 8.4 mg/dL (8.7-10.4) L Total Protein 4.9 g/dL (5.7-8.2) L LFT Test 11/25/24 04:00 Alanine Aminotransferase (ALT) 291 U/L (7-40) H Alkaline Phosphatase 154 U/L (46-116) H Aspartate Amino Transferase (AST) 43 U/L (13-40) H Total Bilirubin 1.7 mg/dL (0.2-1.0) H Urinalysis Test 10/09/24 22:25 11/15/24 04:00 Urine Creatinine 31.20 mg/dL (30.0-125.0) Urine Protein/Creatinine Ratio 0.72 Urine Sodium 79 mmol/L (40-220) Urine Total Protein 22.5 mg/dL (1-14) H Urine Color Yellow (Yellow) Urine Clarity Turbid (Clear) H Urine pH 5.0 (5.0-9.0) Urine Specific [place] 1.012 (1.001-1.035) Urine Protein Trace (Negative) H Urine Ketones Negative (Negative) Urine Blood 2+ /uL (Negative) H Urine Nitrite Negative (Negative) Urine Bilirubin Negative (Negative) Urine Urobilinogen Normal mg/dL (Negative) Urine Leukocyte Esterase 1+ /uL (Negative) Urine RBC 3 /hpf (0 - 4) Urine Microscopic WBC 14 /HPF (0-5) H Urine Squamous Epithelial Cells Few /hpf (<5) Urine Calcium Oxalate Crystals Few (None Seen) Urine Amorphous Crystals Few /hpf (None Seen) Urine Bacteria Few /hpf (None Seen) H Urine Hyaline Casts Mod /lpf (0 - 2) Urine Mucus Few (None Seen) Urine Glucose Normal mg/dL (Normal) Blood Gas Results Test 11/25/24 08:37 Arterial Blood pH 7.501 (7.350-7.450) FiO2 % 30.0 Microbiology Microbiology Date/Time Source Procedure Growth Status 11/16/24 04:50 Urine - [place] Urine Culture - Final Enterococcus faecium - VRE Complete 11/14/24 11:50 Sputum Endotracheal Wash Gram Stain - Final Complete 11/14/24 11:50 Sputum Endotracheal Wash Respiratory Culture - Final Complete 11/14/24 08:50 Blood Blood Culture - Final NO GROWTH AFTER 5 DAYS OF INCUBATION. Complete 11/14/24 04:30 Nose MRSA Screen - Final Complete Assessment/Plan Assessment/Plan Impression: Acute hypoxic respiratory failure On mechanical ventilator s/p cardiac arrest Ventricular tachycardia CPR <5 min Elevated troponin Atelectasis Anemia Events: Remains on vent support Currently on assist control with respiratory rate of 16, tidal volume 350, PEEP 5, FiO2 of 30% Daily CPAP trials CPAP with PS 8, PEEP 5, FiO2 30%. Mentation not at goal for extubation. ABG reviewed, notable for alkalemia due to metabolic alkalosis. Pressors for hemodynamic support. On Stone-Synephrine 15 mcg/min Titrate to keep MAP greater than 65 mmHg. Protonix BID for GI prophylaxis Monitor hemoglobin Tube feeds for nutritional support Plan for tracheostomy. Recommend tracheostomy vs. terminal system operator acute care. Plan for LTAC when bed available. Plan for CPAP in AM with PS 8, PEEP 5, FiO2 30%. Keep on CPAP as long as patient tolerates Awaiting for mentation to improve. Labs and imaging reviewed. Plan: On mechanical ventilator Settings: Assist control with respiratory rate of 16, tidal volume 350, PEEP 5, FiO2 of 30% Titrate FiO2 to keep sats above 92%. VAP bundle Completed antibiotics. F/u cultures. Antifungal Completed steroids Pressors as necessary for hemodynamic support. Titrate to keep MAP greater than 65 mmHg. Monitor hemoglobin Accu-Cheks, ISS PRN. Monitor labs Monitor renal function. Maintain euvolemia Monitor electrolytes. Supplement as necessary. Monitor ins and outs. Maintain euvolemia Cardiology recommendations appreciated. On Protonix twice daily GI/DVT prophylaxis. On Eliquis twice daily. Prognosis: Poor given patient's multiple co-morbidities. Condition: Critical Rest of plan per hospitalist and other consultants. A total of 35 minutes of critical care time was spent reviewing the patient record, examining the patient, making a diagnostic and therapeutic plan, discussing this plan with the medical personnel, following up on diagnostic studies and following the patient for clinical stability excluding any and all procedures. At least 50% of this time was spent in direct, [id number] contact. Thank you, YURI Gomez, for allowing me to participate in this patient's care. Further recommendations will depend on the patient's clinical course. Please do not hesitate to contact me if you have any questions or concerns. This medical document was created using an electronic medical record system with [employer] dictation system. Although these documentations are being carefully reviewed, there may still be some phonetic and typographical changes. The errors are purely typographical, due to imperfection on the software program, and do not reflect any compromise in the patient's medical care. Plan discussed with: Other (RN) My Orders Orders - KENNY FROST MD Procedure Category Date Status Time Abg W/ Co-Ox RT 11/25/24 Logged 06:00 Communication Order ORDERS 11/25/24 Transmitted 19:20 Date of Service: Nov 25, 2024 Billing Provider: KENNY FROST MD Common Visit Codes: [id number] INP/OBS CARE(HIGH), [id number] CARE 30-74 MIN KENNY FROST MD Nov 25, 2024 23:39
[2024-11-26] VITALS (98 sets, daily range): BP systolic 88–127; BP diastolic 33–83; PULSE 55–92; RESP 8–25; TEMP 97.4–98.7; O2SAT 97–100
[2024-11-26 04:58] LABS: Anion Gap 8 (5-15); BUN/Creatinine Ratio 29.8 (10.0-20.0); Blood Urea Nitrogen 14 mg/dL (9-23); Glucose 97 mg/dL (74-106); Potassium 4.5 mmol/L (3.5-5.1); Sodium 141 mmol/L (136-145)
[2024-11-26 05:04] LABS: Alanine Aminotransferase 239 U/L (7-40); Albumin 2.9 g/dL (3.2-4.8); Alkaline Phosphatase 166 U/L (46-116); Bilirubin, Total 1.8 mg/dL (0.2-1.0); Calcium 8.6 mg/dL (8.7-10.4); Carbon Dioxide 36 mmol/L (20-31); Chloride 97 mmol/L (98-107); Total Protein 5.6 g/dL (5.7-8.2)
--- NOTE | 2024-11-26 05:20 | DVH ---
CHEST RADIOGRAPH Indication: Intubated Technique: Single frontal view of the chest was obtained Comparison: Chest radiograph dated 11/23/2024. FINDINGS: Lines and Tubes: The endotracheal tube terminates 4.0 cm above the tyler. AICD noted. Lungs: No focal consolidation. Pleura: No effusion. No pneumothorax. Cardiomediastinal contours: Cardiomegaly. Bones: Status post CABG. No acute osseous abnormality. IMPRESSION: 1. Appropriate position of the support lines and tubes. 2. No acute pulmonary disease. 3. Stable cardiomegaly.
[2024-11-26 07:01] LABS: Base Excess 13.4 mmol/L (-2.0-3.0)
--- NOTE | 2024-11-26 09:03 | DVHPN2 ---
Progress Note - Dictate Date Seen: Nov 26, 2024 Has the PT tested + for MRSA If YES, has PT been informed?: No Medical Necessity Reason Pt with a Central, PICC or Fol: No The following are medically ne: PICC Line, Cutler Catheter Reason for cutler catheter: Strict I&O vital signs Vital Sign Date Time Temp Pulse Resp B/P (MAP) Pulse Ox O2 Delivery O2 Flow Rate FiO2 11/26/24 08:00 20 100 Mechanical Ventilator+ 30 30 11/26/24 07:35 77 107/51 (69) 11/26/24 04:00 98.7 98.7 Total Intake and Output 11/25/24 11/25/24 11/26/24 15:00 23:00 07:00 Intake Total 125.00 ml 586 ml Output Total 1750 ml 1201 ml Balance 125.00 ml -1750 ml -615 ml medications Current Medications Medications Dose Ordered Sig/Liliam Route Start Time Stop Time Status Last Admin Dose Admin Amino Acids 0 ml @ 0 mls/hr PER PHARMACY IV 10/15/24 18:45 Cancel Dextrose 50 ml UD IV 10/16/24 09:30 Cancel Vancomycin HCl 0 ml @ 0 mls/hr UD IV 10/19/24 14:00 Cancel Metoprolol Tartrate 2.5 mg Q6HPRN PRN IV 10/31/24 09:15 Amino Acids 0 ml @ 0 mls/hr PER PHARMACY IV 11/04/24 22:00 Cancel Amino Acid Protein 30 ml DAILY PO 11/04/24 10:00 11/25/24 10:00 30 ML Pantoprazole Sodium 40 mg BID IV 11/09/24 22:00 11/25/24 22:13 40 MG Mexiletine HCl 150 mg TID GT 11/10/24 22:00 11/26/24 06:39 150 MG Fat Emulsion Intravenous 150 ml/Sodium Acetate 20 meq/Potassium Acetate 30 meq/ Potassium Phosphate 19.8 meq/Calcium Gluconate 2.3 meq/ Magnesium Sulfate 4 meq/ Multivitamins 10 ml/Chromium/ Copper/Manganese/ Zinc 1 ml/Amino Acids/Dextrose/ Purified Water 1,596.4462 ml @ 66 mls/hr [id number] IV 11/11/24 22:00 11/12/24 21:59 Cancel Furosemide 40 mg BIDD IV 11/14/24 18:00 11/26/24 06:39 40 MG Phenylephrine HCl 250 ml @ 30 mls/hr Q8H20M IV 11/15/24 09:00 11/25/24 07:51 30 MLS/HR Acetaminophen 650 mg Q4HR PRN GT 11/17/24 08:30 11/22/24 07:10 650 MG Potassium Bicarbonate 50 meq BID PEG 11/18/24 22:00 11/25/24 22:14 50 MEQ Enteral Nutritional Formula 1,000 ml 55ML/HR GT 11/19/24 15:00 11/23/24 12:14 1,000 ML Metoclopramide HCl 5 mg Q8HR IV 11/19/24 22:00 11/26/24 06:39 5 MG Lorazepam 1 mg ONCE PRN IV 11/20/24 10:30 Polyethylene Glycol 17 gm DAILY PO 11/22/24 10:00 11/24/24 10:10 17 GM Fentanyl Citrate 250 ml @ 2.5 mls/hr Q24H IV 11/24/24 15:45 11/25/24 07:50 10 MLS/HR laboratory and microbiology Laboratory Tests 11/26/24 03:51 11/25/24 04:00 Test 11/26/24 03:51 Range/Units Serum Glucose 97 74-106 mg/dL Assessment/Plan Still in ICU, intubated and on pressure support. No significant Arrhythmia identified during this episodes. They are looking into possibility of Tracheostomy (maybe to be performed in [place]?) Cardiac arenas, patient is moderate risk patient for moderate risk tracheostomy. Avoid hypotension. Patient is a 54-year-old female who was brought to the hospital for witnessed syncope. She is intubated and is being managed in ICU. Information was obtained by reviewing the chart and communicating with patient's son (over the phone). Family recognized witnessed syncope and started CPR and called EMS. Reportedly, EMS found the patient in ventricular fibrillation and shocked the patient and brought the patient to the hospital. Patient was intubated in emergency room and transferred to ICU. Patient was on amiodarone drip. Later the patient had ventricular tachycardia (Systane). High sensitive troponin had been minimally/flatly elevated. Presentation was not in favor of acute coronary syndrome. Cardiology is involved for cardiac aspects of care. Intubated. On Vent. No JVD. Mucosa pale. No carotid bruit. Scattered rhonchi in the lungs is heard. Cardiac: Regular, no thrill. Systolic murmur 2/6 in apex is heard. Abdomen is soft. 3+ edema in extremities. Past medical history as per son: Congenital heart disease, status post bypass WBC: 14.5 - 11.9 - 18.8 - 20.0 - 21.2 - 14.3 - 10.3 - 8.9 - 9.2 - 11.1 - 12.1 - 10.8 - 12.0 - 9.9 - 15.4 - 14.8 - 12.1 - 10.5 - 5.8 - 5.3 - 4.2 - 5.8 - 4.1 - 7.0 - 9.3 - 8.3 - 11.5 - 8.4 - 8.4 - 5.4 - 5.7 - 8.4 - 7.4 - 6.2 - 6.7 - 13.9 - 11.7 - 10.1 - 8.8 - 10.7 - 13.9 - 10.6 - 11.5 - 9.6 - 7.4 - 4.7 - 4.9 Hemoglobin: 10.1 - 9.6 - 9.2 - 8.8 - 8.7 - 8.0 - 8.3 - 8.5 - 7.8 - 10.2 - 10.7 - 9.9 - 9.7 - 9.3 - 9.3 - 8.6 - 8.1 - 7.4 - 7.5 - 7.4 - 7.5 - 7.2 - 7.7 - 7.0 - (post PRBC transfusion) 10.4 - 10 - 9.5 - 10.0 - 9.2 - 9.8 -9.6 - 9.7 - 10.2 - 10.6 - 9.7 - 9.7 - 10.5 - 10.0 - 11.4 - 10.8 - 12.4 - 12.7 - 13.3 - 12.3 - 12.0 - 11.6 - 11.7 - 10.9 Creatinine: 0.95 - 0.93 - 0.87 - 0.83 - 0.83 - 0.76 - 0.68 - 0.72 - 0.79 - 0.76 - 0.80 - 0.84 - 0.61 - 0.65 - 0.74 - 0.64 - 0.73 - 0.82 - 0.88 - 1.03 - 0.99 - 0.85 - 0.87 - 0.79 - 1.12 - 1.15 - 1.04 - 0.96 - 0.94 - 0.93 - 0.78 - 0.71 - 0.68 - 0.61 - 0.59 - 0.49 - 0.39 - 0.54 - 0.48 - 0.76 - 0.93 - 0.78 - 0 078 - 0.68 - 0.70 - 0.56 -0.64 - 0.63 - 0.63 - 0.57 - 0.48 - 0.52 - 0.41 - 0.47 Potassium: 3.4 - 4.0 - 4.6 - 3.5 - 3.3 - 4.1 - 3.7 - 3.2 - 3.7 - 4.0 - 3.2 - 3.4 - 3.9 - 4.2 - 3.3 - 3.8 - 3.6 - 3.4 - 4.2 - 3.8 - 4.5 - 4.1 - 3.5 - 4.2 - 3.3 - 2.6 - 3.5 - 3.8 - 2.4 - 2.9 - 4.6 - 2.8 - 4.8 - 4.9 - 3.4 - 3.1 - 3.7 - 4.4 - 3.7 - 3.7 - 3.1 - 3.0 - 3.8 - 4.4 - 3.8 - 4.1 - 4.3 - 3.9 - 4.4 - 6.1 - 4.6 - 3.0 - 3.6 - 3.1 - 2.1 - 4.6 - 2.5 - 3.1 - 4.4 - 4.9 - 4.9 - 4.3 - 3.8 - 4.9 - 4.4 - 4.5 Magnesium: 2.0 - 1.6 - 2.0 - 3.0 - 1.5 - 1.9 - 2.1 - 1.8 - 2.0 - 1.9 - 1.9 - 2.6 - 2.0 - 1.8 - 1.6 - 2.0 - 2.2 - 1.9 - 2.3 - 2.2 - 2.2 - 2.1 - 2.1 - 1.9 2.7 - 2.6 - 2.3 - 2.4 - 2.5 - 2.3 - 2.5 - 2.3 - 2.3 - 2.4 - 2.1 - 1.9 - 2.2 - 2.1 - 2.0 - 2.4 - 2.2 - 2.0 - 2.0 - 1.6 - 2.0 - 2.0 - 2.0 - 2.1 Troponin (high sensitive): 141 - 138 - 117 BNP: 457.16 - 1073.91 - 928.14 AST/ALT: 32/11 - 19/13 - 538/168 - 293/152 - 131/130 - 78/94 - 68/74 - 48/57 - 27/38 - 15/23 - 20/18 - 23/17 - 29/16 - 27/13 - 34/17 - 73/49 - 41/43 - 30/47 - 30/42 - 29/42 - 17/27 - 160/87 - 900/478 - 986/571 - 382/436 - 110/244 - 42/170 - 22/113 - 16/77 - 15/59 - 19/50 - 20/41 - 16/32 - 17/30 - 14/25 - 25/38 - - /2337 - >6000/>6000 - 4665/>6000 - 2123/>6000 - 604/4207 - 203/2809 - 131/1787 - 64/898 - 52/456 - 55/388 - 43/291 - 43/239 Digoxin level: 2.83 - 1.25 - 0.98 UDS: non-revealing Chest x-ray revealed: Lines and Tubes: Endotracheal tube tip projects approximately 1.4 cm above the level of the tyler. Enteric catheter courses below the lateral of the diaphragm and terminates beyond the inferior margin of the image. Right internal jugular central venous catheter terminates within the distal superior vena cava. Lungs: Moderate diffuse increased prominence of the pulmonary vasculature without evidence of focal consolidation. Pleura: No effusion. No pneumothorax. Cardiomediastinal contours: Cardiomegaly. Bones: Unremarkable IMPRESSION: 1. Cardiomegaly and diffuse increased prominence of the pulmonary vasculature. 2. Lines and tubes as above. Repeat chest x-ray revealed: IMPRESSION: 1. Endotracheal tube tip 1.6 cm above the tyler; consider 2 cm retraction 2. Mild pulmonary vascular congestion. Moderate cardiomegaly. Repeat chest xry revealed: IMPRESSION: Endotracheal tube tip 1.6 cm above the tyler; consider 2 cm retraction Mild pulmonary vascular congestion. Moderate cardiomegaly. Repeat chest xry revealed: IMPRESSION: 1. Stable cardiomegaly, small left pleural effusion and mild diffuse increased prominence of the pulmonary vasculature. 2. Repositioned endotracheal tube as above. Remaining lines and tubes unchanged. Repeat chest xry revealed: IMPRESSION: 1. Cardiomegaly, stable diffuse increased prominence of the pulmonary vasculature and small bilateral pleural effusions. 2. Slight interval advancement of endotracheal tube as above. Remaining lines and tubes unchanged. Repeat chest xry revealed: IMPRESSION: 1. Slight interval decrease in diffuse increased prominence of the pulmonary vasculature. 2. Stable cardiomegaly and small left pleural effusion. 3. Lines and tubes unchanged. Repeat chest xry revealed: IMPRESSION: 1. Cardiomegaly and small left pleural effusion. 2. Lines and tubes unchanged. Repeat chest xry revealed: IMPRESSION: Stable lines and tubes. Similar lung aeration. Repeat chest xry revealed: IMPRESSION: Cardiomegaly and small left pleural effusion. Lines and tubes unchanged. Repeat chest xry revealed: IMPRESSION: Placement of a cardiac pacer, no pneumothorax is seen. Stable lines and tubes. Repeat chest xry revealed: IMPRESSION: 1. Worsening mixed opacities in the right lower lung. No other significant change from the previous study. Stable support devices. Repeat chest xry revealed: Heart is prominent in size with postsurgical changes, median sternotomy wires, and a single lead left cardiac defibrillator. Support lines and tubes appear unchanged in satisfactory in position. No sizable effusion or pneumothorax. Mild pulmonary vascular congestion. No significant interval change. Repeat chest xry revealed: IMPRESSION: 1. No significant change from the previous study. Stable support devices. Similar findings of heart failure including left pleural effusion. Repeat chest xry revealed: IMPRESSION: 1. No significant change from the previous study. Stable support devices. Similar findings of heart failure including trace left pleural effusion. Repeat chest xry revealed: Lines and Tubes: Unchanged. Left anterior chest wall cardiac pacing device. Lungs: Clear Pleura: No effusion. No pneumothorax. Cardiomediastinal contours: Cardiomegaly. Bones: Unremarkable IMPRESSION: 1. Cardiomegaly. 2. Lines and tubes unchanged. Repeat chest xry revealed: IMPRESSION: Lines and tubes in satisfactory position. No significant interval change. Repeat chest xry revealed: Lines and Tubes: ET tube and NG tube removed. Lungs: Congestion Pleura: No effusion. No pneumothorax. Cardiomediastinal contours: Cardiomegaly Bones: Unremarkable IMPRESSION: 1. Cardiomegaly with CHF. Repeat chest xry revealed: IMPRESSION: 1. Cardiomegaly. 2. Patchy bilateral airspace disease. Repeat chest xry revealed: FINDINGS: Lines and Tubes: None. Left anterior chest wall cardiac pacing device. Lungs: Extensive multifocal bilateral pulmonary airspace disease in a predominantly perihilar and bibasilar distribution with consolidative features. Pleura: No effusion. No pneumothorax. Cardiomediastinal contours: Poorly evaluated secondary to extensive bilateral infiltrate. Bones: Unremarkable IMPRESSION: 1. Extensive multifocal bilateral pulmonary airspace disease in a predominantly perihilar and bibasilar distribution with consolidative features. Repeat chest xry revealed: IMPRESSION: 1. Status post interval intubation. Endotracheal tube tip projects approximately 2.4 cm above the level of the tyler. 2. Grossly stable appearing moderate patchy multifocal bilateral pulmonary airspace disease with consolidative features. 3. Cardiomegaly. Repeat chest xry revealed: IMPRESSION: No significant interval change. Repeat chest xry revealed: IMPRESSION: No significant interval change Repeat chest xry revealed: IMPRESSION: 1. Interval retraction of the endotracheal tube such that the tip now projects approximately 4.5 cm above the level of the tyler. 2. Cardiomegaly. Repeat chest xry revealed: IMPRESSION: 1. Mild interval advancement of the endotracheal tube such that the tip now projects approximately 3.3 cm above the level of the tyler. 2. No evidence of acute cardiopulmonary process. Repeat chest xry revealed: IMPRESSION: Lines and tubes in satisfactory position. No significant interval change. Repeat chest xry revealed: IMPRESSION: 1. Interval advancement of endotracheal tube such that the tip now projects approximately 3.7 cm above the level of the tyler. Remaining lines and tubes unchanged. 2. Cardiomegaly. Repeat chest xry revealed: IMPRESSION: Unchanged pulmonary vascular congestion. Repeat chest xry revealed: IMPRESSION: No significant interval change. Repeat chest xry revealed: IMPRESSION: 1. Interval retraction of endotracheal tube such that the tip now projects approximately 4.5 cm above the level of the tyler. Remaining lines and tubes unchanged. 2. Cardiomegaly. Repeat chest xry revealed: IMPRESSION: 1. Appropriate position of the support lines and tubes. 2. No acute pulmonary disease. 3. Stable cardiomegaly. Gall Bladder Ultrasound revealed: IMPRESSION: Gallstones are noted. Hepatic steatosis Trace ascites Trace bilateral pleural effusions. Hepatic cirrhosis. Liver Ultrasound revealed: Hepatic steatosis. Trace right pleural effusion. Trace ascites Gallstones Bladder ultrasound revealed: IMPRESSION: 1. Cutler catheter in the bladder in the bladder is decompressed. Repeat Bladder Ultrasound revealed: Urinary bladder is unremarkable with prevoid volume of 29 mL. Urinary bladder wall measures 1.5 mm. Cutler catheter is noted. KUB revealed: IMPRESSION: Nonobstructive bowel gas pattern. Nasogastric tube tip in the stomach. Large stool burden. Repeat KUB revealed: Right lower extremity PICC line with tip projecting over the expected region of the intrahepatic IVC. Nasogastric tube projecting towards the distal stomach. Nonspecific bowel gas pattern. Cardiomegaly and left basilar airspace opacities, incompletely characterized. Atherosclerotic calcification disease. Repeat KUB revealed: IMPRESSION: 1. Nonspecific nonobstructive bowel gas pattern. 2. Gastrostomy tube projects over the midportion of the left hemiabdomen. 3. Right femoral approach central venous catheter as described above. Repeat KUB revealed: IMPRESSION: Nonobstructive bowel gas pattern. Right central venous catheter tip in the IVC Cutler catheter overlying the bladder. Left upper ext arterial duplex: IMPRESSION: No hemodynamically significant stenosis based on peak systolic velocity criteria. Left lower ext arterial duplex: IMPRESSION: There is no evidence for peripheral vascular insufficiency in the left lower extremity. No significant focal stenosis is identified. Liver Ultrasound revealed: Hepatic steatosis. Hepatomegaly. Cholelithiasis. CT of the head revealed: IMPRESSION: No acute intracranial abnormality. Repeat CT of head revealed: IMPRESSION: No acute intracranial abnormality. Repeat CT of Head revealed: IMPRESSION: No acute intracranial abnormality. Repeat CT of head revealed: IMPRESSION: 1. No acute intracranial abnormality. 2. No findings to suggest territorial ischemia. Echocardiogram reported: lvef 15-20% dilated LV severe global dysfunction mild RV dysfunction biatrial enlargement mild moderate MAC, moderate mitral regurg mild to moderate aortic regug (images of echo reviewed and questioned presence of mitral ring and also some component (moderate of Mitral stenosis) EKG revealed sinus rhythm Telemetry revealed occasions of atrial fibrillation. There was occasional sustained ventricular tachycardia. EMS tele monitor revealed ventricular fibrillation for which the patient was shocked. Has remained sinus rhythm. Later with A-fib with MVR LHC revealed: Patent RICHMOND to LAD; Patent SVG to obtuse marginal; LVEF of 20% with increased EDP; Proximal disease in LAD/LCX RICHIE was performed: Consistent with severely reduced LVEF. Consistent with previously implanted Mitral ring, Up to moderate Mitral stenosis/Mitral Regurgitation and also Moderate Aortic insufficiency. Patient is a 54-year-old female who presented with witnessed syncope. She was found to have ventricular fibrillation for which was shocked. Later had repeated episode of sustained ventricular tachycardia. Patient has been kept in ICU. Does have baseline history of coronary artery disease for which has had bypass surgery. Left heart catheterization was performed which revealed patent RICH[place]D and patent SVG. ACS is not considered at this point. It is of note that the patient's echocardiogram reveals significantly use systolic function. Valvular heart disease is considered. Findings are in favor of previously implanted mitral ring. By reviewing the echo images, component of up to moderate mitral stenosis could not be ruled out. LHC was performed that ruled out any active specific ischemia as an etiology for presentation. Is off Amiodarone for abnormal LFT. Being followed by Nephrology / Pulmonary / Neurology / GI ID. Tele has remained sinus rhythm. Had episode of a-fib with RVR. Was loaded with Digoxin. Dig level was performed at wrong timing (only 5 hours after the last Dig given). Dig toxicity is not considered. Patient is back to normal sinus rhythm. Has good kidney function. Repeat Dig level is acceptable level. s/p ICD implantation by EP. Intubated, later extubated. s/p PEG. Later had respiratory failure and was taken back to ICU. Imaging question pneumonia (can it be aspiration?). Eventhough repeat BNP has not increased (decreased somehow), patient does have peripheral edema and component of acute on chronic Systolic heart failure could also contribute to respiratory failure. The site of ICD implantation was reviewed by EP (Dr Armstrong on 05/13/2024): healing well (personal communication). Had repeat respiratory failure, back in ICU and intubated. Abnormal LFT. Found to have gall stone and Liver cirrhosis Syncope V-fib s/p shock Sustained V-tach Paroxysmal A-fib VHD, s/p Mitral ring Systolic heart failure Abnormal LFT, at a point resolved, later appeared again s/p ICD (Biotronik) implantation by EP (Dr Armstrong) s/p PRBC transfusion for significant anemia Hepatic Steatosis Gallstones Failed Swallowing s/p PEG Acute respiratory failure Acute on chronic systolic heart failure Gallstone Liver cirrhosis Cardiac suggestion for management: Manage in ICU IV diuresis Follow up electrolytes and kidney function test and correct abnormalities Full anticoagulation (a-fib with high CHADS-Vasc score). s/p ICD implantation. On Eliquis On Mexiletine On Levo-Phed: keep MAP above 65 (for now off pressure support and tolerating) Was on Metoprolol to decrease risk of Vtach (as patient has ICD with bradycardia protection: may continue metoprolol in case of bradycardia, but hold: if hypotensive). For now will stop/hold Metoprolol May consider/add Esmolol for PVC/Vtach (if needed) Cardiac arenas, patient is moderate risk patient for moderate risk tracheostomy. Avoid hypotension. s/p ICD (Biotronik) implantation by EP Eliquis: 2.5 mg BID s/p PEG Pulmonary Follow up GI follow up Management of repeat respiratory failure, pneumonia as per primary team/pulmonary Provide previous medical records from reaching out to previous hospitals in [facility]... Further evaluation and management depends on the above and clinical course. A total of 75 minutes was spent reviewing the patient record, examining the patient, making a diagnostic and therapeutic plan, discussing this plan with medical personnel, following up on diagnostic studies and following the patient for clinical stability excluding any and all procedures. At least 50% of this time was spent in direct, [id number] contact. Thank you for allowing me to participate in this patient's care. Further recommendations will depend on patient's clinical course. Please do not hesitate to contact me if you have any questions or concerns. This medical document was created using electronic medical record system with J[employer] dictation system. Although this document has been carefully reviewed, there may still be some phonetic and typographical errors. These areas are purely typographical due to the imperfection of the software programs, and do not reflect any compromise in the patient's medical care. Dietary Evaluation Review Comments: 1) TF Jevity 1.2Cal @ 55 ml/hr. x 24hr along with Pro-stat 1 pk daily. Start @ 20ml/hr, increase 10ml/hr Q4H until goal is reached. TF @ goal volume provides 1684 kcal (100% energy needs), 88 gm protein (100% protein needs), 1065 ml free water. 2) Water flush 100ml Q4H if allowed, adjust PRN 3) Advance to cardiac diet as medically feasible 4) Monitor NPO status, lab values, wt trend, I/O Expected Outcomes/Goals: To meet >75% estimated needs within 7 days Lab values to improve Fu 2-3 days Plan discussed with: Other (nurse) CORDELL VERA MD Nov 26, 2024 09:02
[2024-11-26 09:40] LABS: Hematocrit 29.9 % (36.0-46.0); Hemoglobin 9.8 g/dL (12.2-16.2); Mean Corpuscular Hemoglobin 30.9 pg (28.0-32.0); Mean Corpuscular Volume 93.8 fL (80.0-100.0); Nucleated Red Blood Cells % 0.2 %
--- NOTE | 2024-11-26 11:05 | DVHPN2 ---
Progress Note - Dictate Date Seen: Nov 26, 2024 Has the PT tested + for MRSA If YES, has PT been informed?: No Medical Necessity Reason Pt with a Central, PICC or Fol: No The following are medically ne: PICC Line, Cutler Catheter Reason for cutler catheter: Strict I&O vital signs Vital Sign Date Time Temp Pulse Resp B/P (MAP) Pulse Ox O2 Delivery O2 Flow Rate FiO2 11/26/24 10:40 100 10.0 11/26/24 09:48 23 11/26/24 09:46 76 105/39 (61) 30 11/26/24 08:00 Mechanical Ventilator+ 11/26/24 08:00 97.8 97.8 Total Intake and Output 11/25/24 11/25/24 11/26/24 15:00 23:00 07:00 Intake Total 125.00 ml 586 ml Output Total 1750 ml 1201 ml Balance 125.00 ml -1750 ml -615 ml medications Current Medications Medications Dose Ordered Sig/Liliam Route Start Time Stop Time Status Last Admin Dose Admin Amino Acids 0 ml @ 0 mls/hr PER PHARMACY IV 10/15/24 18:45 Cancel Dextrose 50 ml UD IV 10/16/24 09:30 Cancel Vancomycin HCl 0 ml @ 0 mls/hr UD IV 10/19/24 14:00 Cancel Metoprolol Tartrate 2.5 mg Q6HPRN PRN IV 10/31/24 09:15 Amino Acids 0 ml @ 0 mls/hr PER PHARMACY IV 11/04/24 22:00 Cancel Amino Acid Protein 30 ml DAILY PO 11/04/24 10:00 11/26/24 10:20 30 ML Pantoprazole Sodium 40 mg BID IV 11/09/24 22:00 11/26/24 10:20 40 MG Mexiletine HCl 150 mg TID GT 11/10/24 22:00 11/26/24 06:39 150 MG Fat Emulsion Intravenous 150 ml/Sodium Acetate 20 meq/Potassium Acetate 30 meq/ Potassium Phosphate 19.8 meq/Calcium Gluconate 2.3 meq/ Magnesium Sulfate 4 meq/ Multivitamins 10 ml/Chromium/ Copper/Manganese/ Zinc 1 ml/Amino Acids/Dextrose/ Purified Water 1,596.4462 ml @ 66 mls/hr [id number] IV 11/11/24 22:00 11/12/24 21:59 Cancel Furosemide 40 mg BIDD IV 11/14/24 18:00 11/26/24 06:39 40 MG Phenylephrine HCl 250 ml @ 30 mls/hr Q8H20M IV 11/15/24 09:00 11/25/24 07:51 30 MLS/HR Acetaminophen 650 mg Q4HR PRN GT 11/17/24 08:30 11/22/24 07:10 650 MG Potassium Bicarbonate 50 meq BID PEG 11/18/24 22:00 11/26/24 10:20 50 MEQ Enteral Nutritional Formula 1,000 ml 55ML/HR GT 11/19/24 15:00 11/23/24 12:14 1,000 ML Metoclopramide HCl 5 mg Q8HR IV 11/19/24 22:00 11/26/24 06:39 5 MG Lorazepam 1 mg ONCE PRN IV 11/20/24 10:30 Polyethylene Glycol 17 gm DAILY PO 11/22/24 10:00 11/24/24 10:10 17 GM Fentanyl Citrate 250 ml @ 2.5 mls/hr Q24H IV 11/24/24 15:45 11/25/24 07:50 10 MLS/HR objective HEENT: EOMI, PERRLA, normal external inspect of ears, no icterus, no nasal drainage Neck: no carotid bruit, no jugular venous distention (JVD), no lymphadenopathy Chest: normal thorax Respiratory: Intubated, clear to auscultation, normal air movement Cardiovascular: regular rate and rhythm, no diastolic murmur, no jugular venous distention (JVD), no rub, no systolic murmur Abdominal: soft, no hepatomegaly, no mass, no splenomegaly, no tenderness Genitourinary: grossly normal external Musculoskeletal: no joint tenderness, no swelling Extremities: normal pulses, no calf tenderness, no clubbing, no cyanosis, no edema Skin: no bruising, no jaundice, no rash Neurological: No focal deficit laboratory and microbiology Laboratory Tests 11/26/24 03:51 Test 11/26/24 03:51 Range/Units Serum Glucose 97 74-106 mg/dL Problem List Cardiac Arrest with Ventricular Fibrillation Assessment: Patient experienced cardiac arrest with ventricular fibrillation on 10/07/24, witnessed by family members who initiated CPR. EMS found the patient in ventricular fibrillation and administered shock therapy. Rhythm strip analysis confirmed ventricular fibrillation. Patient required intubation and sedation upon ED arrival. Currently admitted to ICU for close observation. Cardiology has been consulted and plans for AICD placement, likely on Tuesday. Infectious disease clearance has been obtained for the AICD procedure, addressing initial concerns of leukocytosis which is now improving. Status post-cardiac arrest. Plan: - Continue ICU monitoring - Proceed with AICD placement as planned (likely Tuesday), cleared by infectious disease. - Maintain intubation and sedation until AICD placement - Continue Heparin drip for paroxysmal atrial fibrillation - Continue Mexitil - DC amiodarone due to transaminitis - added esmolol drip per Cardiology for AFib and added push doses of digoxin Coronary Artery Disease Assessment: Patient with history of 2-vessel CABG (Coronary Artery Bypass Grafting). Surgical intervention previously performed to address significant coronary artery stenosis. Plan: - Continue medical management - Follow up with cardiology for ongoing coronary artery disease management Acute and Chronic Systolic Heart Failure Assessment: Patient has acute and chronic systolic heart failure with severely reduced left ventricular function. Ejection fraction is estimated at 15-20%. RICHIE findings are consistent with severely reduced left ventricular ejection fraction, previously implanted mitral ring, up to moderate mitral stenosis and regurgitation, and moderate aortic insufficiency. Plan: - Continue cardiology consultation - continue IV diuretics (IV Lasix) - Monitor renal function Acute Hypoxic Respiratory Failure Assessment: Patient is currently intubated due to acute hypoxic respiratory failure. Dr. Downey from pulmonology is managing this aspect of care. Plan: - Maintain current intubation as per pulmonology recommendation - Proceed with CPAP trials when deemed appropriate by pulmonology Transaminitis Assessment: Patient has elevated liver function tests, likely secondary to amiodarone use. Cardiology has discontinued amiodarone in response. Plan: - Monitor liver function tests - Amiodarone discontinued as per cardiology Enterobacter PNA Assessment: Sputum culture positive for Enterobacter. Plan: - Continue treatment with Eratapenem to complete 10 days regimen -Infectious disease consult Hemodynamic Support Assessment: Patient requires vasopressor support for hemodynamic stability. Plan: - Continue vasopressin - Continue neosynephrine Paroxysmal a fib -DC amiodarone -continue with heparin gtt Shock liver GI consult, trend liver enzymes, hepatitis panel was negative. Ultrasound of the liver had no acute findings. Assessment/Plan Subjective: Patient was extubated early this morning. Objective: Patient was admitted for cardiac arrest and is status post AICD placement. She had sepsis with septic shock, Enterobacter pneumonia, and VRE in her urine. This is her second extubation. She has acute hypoxic respiratory failure related to aspiration. Patient also has transaminitis and hepatic steatosis, most likely contributing to the slight elevation in liver enzymes. Ultrasound of the gallbladder showed no acute findings. Plan: Continue antibiotics per ID. Monitor daily labs. Continue supplemental O? and Med-Neb treatments as needed. Continue IV antibiotics. Dietary Evaluation Review Comments: 1) TF Jevity 1.2Cal @ 55 ml/hr. x 24hr along with Pro-stat 1 pk daily. Start @ 20ml/hr, increase 10ml/hr Q4H until goal is reached. TF @ goal volume provides 1684 kcal (100% energy needs), 88 gm protein (100% protein needs), 1065 ml free water. 2) Water flush 100ml Q4H if allowed, adjust PRN 3) Advance to cardiac diet as medically feasible 4) Monitor NPO status, lab values, wt trend, I/O Expected Outcomes/Goals: To meet >75% estimated needs within 7 days Lab values to improve Fu 2-3 days Plan discussed with: Patient, Other BRODIE GARVIN MANAGER LICENSING Nov 26, 2024 11:05
--- NOTE | 2024-11-26 13:23 | DVHPN2 ---
Progress Note Date Seen: Nov 26, 2024 Resident Creating Document: ETHAN SWAN RESIDENT Has the PT tested + for MRSA If YES, has PT been informed?: No Medical Necessity Reason Pt with a Central, PICC or Fol: No The following are medically ne: PICC Line, Cutler Catheter Reason for cutler catheter: Strict I&O Subjective Review of Systems Patient seen and examined at bedside Two BM today, soft and brown Remains on tube feedings via PEG tube at 50 cc/hour, residuals less than 40 cc S/p extubation currently on cool aerosol Objective vital signs Vital Sign Date Time Temp Pulse Resp B/P (MAP) Pulse Ox O2 Delivery O2 Flow Rate FiO2 11/26/24 12:16 78 22 100/43 (62) 100 11/26/24 12:01 97.6 97.6 11/26/24 12:00 Cool Aerosol 10 40 40 Total Intake and Output 11/25/24 11/25/24 11/26/24 15:00 23:00 07:00 Intake Total 125.00 ml 586 ml Output Total 1750 ml 1201 ml Balance 125.00 ml -1750 ml -615 ml medications Current Medications Medications Dose Ordered Sig/Liliam Route Start Time Stop Time Status Last Admin Dose Admin Amino Acids 0 ml @ 0 mls/hr PER PHARMACY IV 10/15/24 18:45 Cancel Dextrose 50 ml UD IV 10/16/24 09:30 Cancel Vancomycin HCl 0 ml @ 0 mls/hr UD IV 10/19/24 14:00 Cancel Metoprolol Tartrate 2.5 mg Q6HPRN PRN IV 10/31/24 09:15 Amino Acids 0 ml @ 0 mls/hr PER PHARMACY IV 11/04/24 22:00 Cancel Amino Acid Protein 30 ml DAILY PO 11/04/24 10:00 11/26/24 10:20 30 ML Pantoprazole Sodium 40 mg BID IV 11/09/24 22:00 11/26/24 10:20 40 MG Mexiletine HCl 150 mg TID GT 11/10/24 22:00 11/26/24 06:39 150 MG Fat Emulsion Intravenous 150 ml/Sodium Acetate 20 meq/Potassium Acetate 30 meq/ Potassium Phosphate 19.8 meq/Calcium Gluconate 2.3 meq/ Magnesium Sulfate 4 meq/ Multivitamins 10 ml/Chromium/ Copper/Manganese/ Zinc 1 ml/Amino Acids/Dextrose/ Purified Water 1,596.4462 ml @ 66 mls/hr [id number] IV 11/11/24 22:00 11/12/24 21:59 Cancel Furosemide 40 mg BIDD IV 11/14/24 18:00 11/26/24 06:39 40 MG Phenylephrine HCl 250 ml @ 30 mls/hr Q8H20M IV 11/15/24 09:00 11/25/24 07:51 30 MLS/HR Acetaminophen 650 mg Q4HR PRN GT 11/17/24 08:30 11/22/24 07:10 650 MG Potassium Bicarbonate 50 meq BID PEG 11/18/24 22:00 11/26/24 10:20 50 MEQ Enteral Nutritional Formula 1,000 ml 55ML/HR GT 11/19/24 15:00 11/23/24 12:14 1,000 ML Metoclopramide HCl 5 mg Q8HR IV 11/19/24 22:00 11/26/24 06:39 5 MG Lorazepam 1 mg ONCE PRN IV 11/20/24 10:30 Polyethylene Glycol 17 gm DAILY PO 11/22/24 10:00 11/24/24 10:10 17 GM Fentanyl Citrate 250 ml @ 2.5 mls/hr Q24H IV 11/24/24 15:45 11/25/24 07:50 10 MLS/HR Apixaban 2.5 mg BID PEG 11/26/24 22:00 Examination General Appearance: Somnolent Head Exam: Normal inspection. Constricted equal and reactive pupils Neck Exam: Normal inspection. Non-tender. Normal alignment Pulmonary/Respiratory: Chest non-tender. Trace crackles Abdominal Exam: Normal bowel sounds. Soft. Nontender Skin Exam: Normal inspection. Normal color. Warm. Dry laboratory and microbiology Laboratory Tests 11/26/24 09:20 11/26/24 03:51 Test 11/26/24 03:51 Range/Units Serum Glucose 97 74-106 mg/dL Microbiology Date/Time Source Procedure Growth Status 11/16/24 04:50 Urine - Cutler Port Urine Culture - Final Enterococcus faecium - VRE Complete 11/14/24 11:50 Sputum Endotracheal Wash Gram Stain - Final Complete 11/14/24 11:50 Sputum Endotracheal Wash Respiratory Culture - Final Complete 11/14/24 08:50 Blood Blood Culture - Final NO GROWTH AFTER 5 DAYS OF INCUBATION. Complete 11/14/24 04:30 Nose MRSA Screen - Final Complete Labs and/or images reviewed: Labs reviewed by me, Image(s) reviewed by me Problem List/Assessment/Plan Problem List/Assessment/Plan Acute hepatocellular injury likely shock liver Hepatic cirrhosis? Coagulopathy due to above Ventricular fibrillation S/p cardiopulmonary arrest with shock Heart failure with reduced ejection fraction 15-20% Metabolic versus hypoxic encephalopathy Cholelithiasis without acute inflammation Nonalcoholic fatty liver disease with steatohepatitis Community-acquired pneumonia growing Enterobacter Aspiration pnemonia? sepsis Plan: S/p extubation Discontinued free water Repeat 12 lead EKG continue antibiotic consider MRCP once stable Tapered hydrocortisone to q.12 hours on 11/06/2024 Tapered hydrocortisone to once daily on 11/13/2024 Discontinued hydrocortisone on 11/20/2024 s/p PEG tube placement monitor LFT's Keep PT/INR therapeutic Hemoglobin stable, transfuse if HB 7 or less Continue tube feedings at 20cc/hr Decreased metoclopramide to 5 mg IV b.i.d. JAIDEN positive, outpatient follow up with GI recommended for further workup Thank you so much for the opportunity to consult on your patient. GI team will follow the patient. In case of any questions or concerns please feel free to reach out. Plan discussed with Dr. Anglin Plan discussed with: Other (RN) Dietary Evaluation Review Comments: 1) TF Jevity 1.2Cal @ 55 ml/hr. x 24hr along with Pro-stat 1 pk daily. Start @ 20ml/hr, increase 10ml/hr Q4H until goal is reached. TF @ goal volume provides 1684 kcal (100% energy needs), 88 gm protein (100% protein needs), 1065 ml free water. 2) Water flush 100ml Q4H if allowed, adjust PRN 3) Advance to cardiac diet as medically feasible 4) Monitor NPO status, lab values, wt trend, I/O Expected Outcomes/Goals: To meet >75% estimated needs within 7 days Lab values to improve Fu 2-3 days ETHAN SWAN RESIDENT Nov 26, 2024 13:23
--- NOTE | 2024-11-26 17:14 | DVHPNRES ---
Progress Note Date Seen: Nov 26, 2024 Resident Creating Document: ANKIT PARMAR RESIDENT Has the PT tested + for MRSA If YES, has PT been informed?: No Medical Necessity Reason Pt with a Central, PICC or Fol: No The following are medically ne: PICC Line, Cutler Catheter Reason for cutler catheter: Strict I&O Subjective Review of Systems Ms. Smith, a 54-year-old female with a history of paroxysmal atrial fibrillation, ventricular tachycardia, congenital heart disease, and multiple episodes of cardiac arrest was consulted for sepsis following a witnessed syncopal event. She had recently been discharged from [facility] in [place] with prescriptions for amiodarone, Lipitor, and Lasix, which she did not take. After traveling, she experienced another cardiac arrest requiring code blue intervention. EMS found her in ventricular fibrillation, successfully resuscitated her, and transported her to the hospital where she was intubated and admitted to the ICU. She underwent a left heart catheterization and transesophageal echocardiogram. Despite being on an amiodarone drip, she later developed ventricular tachycardia. Troponin levels were minimally elevated, and her presentation was not consistent with acute coronary syndrome. Cardiology is actively involved in her care. Patient seen and examined at the bedside. Patient is extubated today and she is currently on 2 L nasal cannula. Today patient pulled out her PICC line so we placed a new midline in the left cephalic vein patient is still little confused not fully oriented. Objective vital signs Vital Sign Date Time Temp Pulse Resp B/P (MAP) Pulse Ox O2 Delivery O2 Flow Rate FiO2 11/26/24 16:17 80 16 106/56 (73) 100 11/26/24 16:01 97.6 97.6 11/26/24 16:00 Nasal Cannula* 2 28 Total Intake and Output 11/25/24 11/25/24 11/26/24 15:00 23:00 07:00 Intake Total 125.00 ml 586 ml Output Total 1750 ml 1201 ml Balance 125.00 ml -1750 ml -615 ml medications Current Medications Medications Dose Ordered Sig/Liliam Route Start Time Stop Time Status Last Admin Dose Admin Amino Acids 0 ml @ 0 mls/hr PER PHARMACY IV 10/15/24 18:45 Cancel Dextrose 50 ml UD IV 10/16/24 09:30 Cancel Vancomycin HCl 0 ml @ 0 mls/hr UD IV 10/19/24 14:00 Cancel Metoprolol Tartrate 2.5 mg Q6HPRN PRN IV 10/31/24 09:15 Amino Acids 0 ml @ 0 mls/hr PER PHARMACY IV 11/04/24 22:00 Cancel Amino Acid Protein 30 ml DAILY PO 11/04/24 10:00 11/26/24 10:20 30 ML Pantoprazole Sodium 40 mg BID IV 11/09/24 22:00 11/26/24 10:20 40 MG Mexiletine HCl 150 mg TID GT 11/10/24 22:00 11/26/24 14:40 150 MG Fat Emulsion Intravenous 150 ml/Sodium Acetate 20 meq/Potassium Acetate 30 meq/ Potassium Phosphate 19.8 meq/Calcium Gluconate 2.3 meq/ Magnesium Sulfate 4 meq/ Multivitamins 10 ml/Chromium/ Copper/Manganese/ Zinc 1 ml/Amino Acids/Dextrose/ Purified Water 1,596.4462 ml @ 66 mls/hr [id number] IV 11/11/24 22:00 11/12/24 21:59 Cancel Furosemide 40 mg BIDD IV 11/14/24 18:00 11/26/24 06:39 40 MG Phenylephrine HCl 250 ml @ 30 mls/hr Q8H20M IV 11/15/24 09:00 11/25/24 07:51 30 MLS/HR Acetaminophen 650 mg Q4HR PRN GT 11/17/24 08:30 11/22/24 07:10 650 MG Potassium Bicarbonate 50 meq BID PEG 11/18/24 22:00 11/26/24 10:20 50 MEQ Enteral Nutritional Formula 1,000 ml 55ML/HR GT 11/19/24 15:00 11/23/24 12:14 1,000 ML Metoclopramide HCl 5 mg Q8HR IV 11/19/24 22:00 11/26/24 06:39 5 MG Lorazepam 1 mg ONCE PRN IV 11/20/24 10:30 Polyethylene Glycol 17 gm DAILY PO 11/22/24 10:00 11/24/24 10:10 17 GM Fentanyl Citrate 250 ml @ 2.5 mls/hr Q24H IV 11/24/24 15:45 11/25/24 07:50 10 MLS/HR Apixaban 2.5 mg BID PEG 11/26/24 22:00 Examination Pt is lying on bed General Appearance: Not Alert, Oriented X2, HEENT: Atraumatic, Mucous membranes moist/pink Respiratory: Clear to auscultation, Normal air movement, No added sounds Cardiovascular: Irregular irregular rate, Normal S1, Normal S2, dressing is applied over the pacemaker implantation Abdominal: Active bowel sounds, Soft, no distention, no tenderness Extremities: No edema, Normal pulses, No tenderness/swelling Skin: widespread areas of ecchymosis Neuro: deferred due to confusion Nurse was there as timber management technician during examination laboratory and microbiology Laboratory Tests 11/26/24 09:20 11/26/24 03:51 Test 11/26/24 03:51 Range/Units Serum Glucose 97 74-106 mg/dL Microbiology Date/Time Source Procedure Growth Status 11/16/24 04:50 Urine - Cutler Port Urine Culture - Final Enterococcus faecium - VRE Complete 11/14/24 11:50 Sputum Endotracheal Wash Gram Stain - Final Complete 11/14/24 11:50 Sputum Endotracheal Wash Respiratory Culture - Final Complete 11/14/24 08:50 Blood Blood Culture - Final NO GROWTH AFTER 5 DAYS OF INCUBATION. Complete 11/14/24 04:30 Nose MRSA Screen - Final Complete Labs and/or images reviewed: Labs reviewed by me, Image(s) reviewed by me Problem List/Assessment/Plan Problem List/Assessment/Plan Assessment: - Aspiration pneumonia with Enterobacter cloacae and yeast but not albicans isolates - Status post cardiac arrest with return of spontaneous circulation (ROSC) - Ventricular tachycardia and atrial fibrillation status post AICD placement - Recent aspiration event/pneumonitis versus pneumonia, Enterobacter cloacae isolated - Severe reduced ejection fraction (EF 1520%), dilated LV, severe global dysfunction - History of CABG with stents, mitral ring implant - Hypothermia, hypoxia requiring intubation and sedation with a status post extubation today - Sepsis (suspected/treated), leukocytosis (now resolved) - acute complicated UTI due to VRE Plan: 11/26/24: No signs active infection so no antibiotics needed at this time - Respiratory culture on 10/07/2024 Enterobacter cloaca then next on 10/13/2024 presumptive Ilda albicans then next on on 10/20/2024 Enterobacter cloacae and yeast but not albicans - Urinary cultures 10/20/2024 yeast but not Ilda albicans and recent 1 on 11/16 urine culture showed VRE - Blood culture, 10/09/2024, 10/19/2024: No growth - Echocardiogram, 10/07/2024: LVEF 15-20%, dilated LV, global dysfunction, moderate MR - RICHIE, 10/08/2024: Left ventricle: Dilated LV was seen. LVEF was 25%. There was diffuse hypokinesis of left ventricle. RV mildly dilated, LA & RA enlarged, mode MR and MS but no vegetations. Mode aortic insufficiency - extubation as per pulmonology and primary team - defer to primary and tacker off team for management - keep maps above 65 - f/u on blood and urine culture results - discontinued antibiotics Plan discussed with the Dr. Gaurav Eaton and RN Plan discussed with: Patient, Other (RN) Dietary Evaluation Review Comments: 1) TF Jevity 1.2Cal @ 55 ml/hr. x 24hr along with Pro-stat 1 pk daily. Start @ 20ml/hr, increase 10ml/hr Q4H until goal is reached. TF @ goal volume provides 1684 kcal (100% energy needs), 88 gm protein (100% protein needs), 1065 ml free water. 2) Water flush 100ml Q4H if allowed, adjust PRN 3) Advance to cardiac diet as medically feasible 4) Monitor NPO status, lab values, wt trend, I/O Expected Outcomes/Goals: To meet >75% estimated needs within 7 days Lab values to improve Fu 2-3 days ANKIT PARMAR RESIDENT Nov 26, 2024 17:14
[2024-11-26] MEDS: APIXABAN 2.5 MG TAB PEG SCH (20:10)
--- NOTE | 2024-11-26 22:48 | DVHPN2 ---
Subjective DOS: 11/26/2024 Patient seen and examined at bedside. S/p extubation, on supplemental oxygen Overnight events reviewed Changes from previous H/P or p: Changes Objective Vitals Vital Signs Date Time Temp Pulse Resp B/P (MAP) Pulse Ox O2 Delivery O2 Flow Rate FiO2 11/26/24 20:00 97.4 81 25 106/47 (66) 100 97.4 11/26/24 19:32 Nasal Cannula* 2 28 Intake/Output Intake and Output 11/26/24 07:00 Intake Total 711.00 ml Output Total 2951 ml Balance -2240.00 ml Intake Oral 100 ml IV Total 125.00 ml Tube Feeding 486 ml Output Urine Total 2950 ml Stool Total 1 ml Exam Gen.: Patient lying in bed in no apparent distress. On supplemental oxygen. Head: Normocephalic, atraumatic. Eyes: EOMI/PERRLA. Ears: Normal hearing. Normal anatomy. Neck/trachea: Trachea midline, supple. Nose: Normal external anatomy. Mouth: Moist mucous membranes. Chest: Decreased air entry bilaterally. No wheezing or rhonchi. Cardiovascular: Positive S1, positive S2. Regular rate and rhythm. Abdomen: Positive bowel sounds in all 4 quadrants. Soft, non-tender, non- distended. : Deferred. Rectal: Deferred. Skin: Warm, dry. Intact. Extremities: 2+ radial pulses bilaterally. No lower extremity edema. Neuro: Awake, alert, oriented x3. No gross motor or sensory deficits. Cranial nerves II through XII intact. Gait not assessed. Medications Current Medications Medications Dose Ordered Sig/Liliam Route Start Time Stop Time Status Last Admin Dose Admin Amino Acids 0 ml @ 0 mls/hr PER PHARMACY IV 10/15/24 18:45 Cancel Dextrose 50 ml UD IV 10/16/24 09:30 Cancel Vancomycin HCl 0 ml @ 0 mls/hr UD IV 10/19/24 14:00 Cancel Metoprolol Tartrate 2.5 mg Q6HPRN PRN IV 10/31/24 09:15 Amino Acids 0 ml @ 0 mls/hr PER PHARMACY IV 11/04/24 22:00 Cancel Amino Acid Protein 30 ml DAILY PO 11/04/24 10:00 11/26/24 10:20 30 ML Pantoprazole Sodium 40 mg BID IV 11/09/24 22:00 11/26/24 20:10 40 MG Mexiletine HCl 150 mg TID GT 11/10/24 22:00 11/26/24 20:11 150 MG Fat Emulsion Intravenous 150 ml/Sodium Acetate 20 meq/Potassium Acetate 30 meq/ Potassium Phosphate 19.8 meq/Calcium Gluconate 2.3 meq/ Magnesium Sulfate 4 meq/ Multivitamins 10 ml/Chromium/ Copper/Manganese/ Zinc 1 ml/Amino Acids/Dextrose/ Purified Water 1,596.4462 ml @ 66 mls/hr [id number] IV 11/11/24 22:00 11/12/24 21:59 Cancel Furosemide 40 mg BIDD IV 11/14/24 18:00 11/26/24 17:11 40 MG Phenylephrine HCl 250 ml @ 30 mls/hr [id number] IV 11/15/24 09:00 11/25/24 07:51 30 MLS/HR Acetaminophen 650 mg Q4HR PRN GT 11/17/24 08:30 11/22/24 07:10 650 MG Potassium Bicarbonate 50 meq BID PEG 11/18/24 22:00 11/26/24 20:11 50 MEQ Enteral Nutritional Formula 1,000 ml 55ML/HR GT 11/19/24 15:00 11/23/24 12:14 1,000 ML Metoclopramide HCl 5 mg Q8HR IV 11/19/24 22:00 11/26/24 06:39 5 MG Lorazepam 1 mg ONCE PRN IV 11/20/24 10:30 Polyethylene Glycol 17 gm DAILY PO 11/22/24 10:00 11/24/24 10:10 17 GM Fentanyl Citrate 250 ml @ 2.5 mls/hr Q24H IV 11/24/24 15:45 11/25/24 07:50 10 MLS/HR Apixaban 2.5 mg BID PEG 11/26/24 22:00 11/26/24 20:10 2.5 MG Laboratory Results Laboratory Tests 11/26/24 03:51 11/26/24 09:20 Chemistry Test 11/26/24 03:51 Albumin 2.9 g/dL (3.2-4.8) L Calcium Level 8.6 mg/dL (8.7-10.4) L Total Protein 5.6 g/dL (5.7-8.2) L LFT Test 11/26/24 03:51 Alanine Aminotransferase (ALT) 239 U/L (7-40) H Alkaline Phosphatase 166 U/L (46-116) H Aspartate Amino Transferase (AST) 43 U/L (13-40) H Total Bilirubin 1.8 mg/dL (0.2-1.0) H Urinalysis Test 10/09/24 22:25 11/15/24 04:00 Urine Creatinine 31.20 mg/dL (30.0-125.0) Urine Protein/Creatinine Ratio 0.72 Urine Sodium 79 mmol/L (40-220) Urine Total Protein 22.5 mg/dL (1-14) H Urine Color Yellow (Yellow) Urine Clarity Turbid (Clear) H Urine pH 5.0 (5.0-9.0) Urine Specific [place] 1.012 (1.001-1.035) Urine Protein Trace (Negative) H Urine Ketones Negative (Negative) Urine Blood 2+ /uL (Negative) H Urine Nitrite Negative (Negative) Urine Bilirubin Negative (Negative) Urine Urobilinogen Normal mg/dL (Negative) Urine Leukocyte Esterase 1+ /uL (Negative) Urine RBC 3 /hpf (0 - 4) Urine Microscopic WBC 14 /HPF (0-5) H Urine Squamous Epithelial Cells Few /hpf (<5) Urine Calcium Oxalate Crystals Few (None Seen) Urine Amorphous Crystals Few /hpf (None Seen) Urine Bacteria Few /hpf (None Seen) H Urine Hyaline Casts Mod /lpf (0 - 2) Urine Mucus Few (None Seen) Urine Glucose Normal mg/dL (Normal) Blood Gas Results Test 11/26/24 06:40 Arterial Blood pH 7.607 (7.350-7.450) FiO2 % 30.0 Microbiology Microbiology Date/Time Source Procedure Growth Status 11/16/24 04:50 Urine - [place] Urine Culture - Final Enterococcus faecium - VRE Complete 11/14/24 11:50 Sputum Endotracheal Wash Gram Stain - Final Complete 11/14/24 11:50 Sputum Endotracheal Wash Respiratory Culture - Final Complete 11/14/24 08:50 Blood Blood Culture - Final NO GROWTH AFTER 5 DAYS OF INCUBATION. Complete 11/14/24 04:30 Nose MRSA Screen - Final Complete Assessment/Plan Assessment/Plan Impression: Acute hypoxic respiratory failure Mechanical ventilator, s/p extubation S/p cardiac arrest Ventricular tachycardia CPR <5 min Elevated troponin Atelectasis Anemia Events: Patient tolerated CPAP this AM and was extubated uneventfully Currently on supplemental oxygen On 3 LPM NC Taper O2 as tolerated Head of bed elevation Aspiration precautions Swallow evaluation Tube feeds via PEG for nutrition. Off pressors, hemodynamically stable. Protonix BID for GI prophylaxis Monitor hemoglobin Diurese w/ Lasix as tolerated Monitor renal function. Monitor electrolytes. Supplement as necessary. Plan for LTAC when bed available. Labs and imaging reviewed. Plan: S/p extubation On supplemental oxygen Titrate to keep O2 sats above 90%. Completed antibiotics. F/u cultures. Antifungal Completed steroids Pressors as necessary for hemodynamic support. Titrate to keep MAP greater than 65 mmHg. Monitor hemoglobin Accu-Cheks, ISS PRN. Monitor labs Monitor renal function. Maintain euvolemia Monitor electrolytes. Supplement as necessary. Monitor ins and outs. Maintain euvolemia Cardiology recommendations appreciated. On Protonix twice daily GI/DVT prophylaxis. On Eliquis twice daily. Prognosis: Poor given patient's multiple co-morbidities. Condition: Critical Rest of plan per hospitalist and other consultants. A total of 35 minutes of critical care time was spent reviewing the patient record, examining the patient, making a diagnostic and therapeutic plan, discussing this plan with the medical personnel, following up on diagnostic studies and following the patient for clinical stability excluding any and all procedures. At least 50% of this time was spent in direct, [id number] contact. Thank you, YURI Gomez, for allowing me to participate in this patient's care. Further recommendations will depend on the patient's clinical course. Please do not hesitate to contact me if you have any questions or concerns. This medical document was created using an electronic medical record system with [employer] dictation system. Although these documentations are being carefully reviewed, there may still be some phonetic and typographical changes. The errors are purely typographical, due to imperfection on the software program, and do not reflect any compromise in the patient's medical care. Plan discussed with: Other (CEE Wade) My Orders Orders - EKNNY FROST MD Procedure Category Date Status Time Abg W/ Co-Ox RT 11/26/24 Logged 06:34 Extubate LUIS ARMANDO 11/26/24 In Process 10:32 Date of Service: Nov 26, 2024 Billing Provider: KENNY FROST MD Common Visit Codes: [id number] INP/OBS CARE(HIGH), [id number] CARE 30-74 MIN KENNY FROST MD Nov 26, 2024 22:48
[2024-11-27] VITALS (21 sets, daily range): BP systolic 90–116; BP diastolic 30–55; PULSE 68–93; RESP 12–25; TEMP 98–98.6; O2SAT 93–100
--- NOTE | 2024-11-27 08:19 | DVHPN2 ---
Progress Note - Dictate Date Seen: Nov 27, 2024 Has the PT tested + for MRSA If YES, has PT been informed?: No Medical Necessity Reason Pt with a Central, PICC or Fol: No The following are medically ne: PICC Line, Cutler Catheter Reason for cutler catheter: Strict I&O vital signs Vital Sign Date Time Temp Pulse Resp B/P (MAP) Pulse Ox O2 Delivery O2 Flow Rate FiO2 11/27/24 06:00 68 15 96/42 (60) 100 11/27/24 05:46 Nasal Cannula* 2 28 11/27/24 02:00 98.0 98.0 Total Intake and Output 11/26/24 11/26/24 11/27/24 15:00 23:00 07:00 Intake Total 362 ml 660 ml Output Total 1000 ml 1300 ml Balance -638 ml -640 ml medications Current Medications Medications Dose Ordered Sig/Liliam Route Start Time Stop Time Status Last Admin Dose Admin Amino Acids 0 ml @ 0 mls/hr PER PHARMACY IV 10/15/24 18:45 Cancel Dextrose 50 ml UD IV 10/16/24 09:30 Cancel Vancomycin HCl 0 ml @ 0 mls/hr UD IV 10/19/24 14:00 Cancel Metoprolol Tartrate 2.5 mg Q6HPRN PRN IV 10/31/24 09:15 Amino Acids 0 ml @ 0 mls/hr PER PHARMACY IV 11/04/24 22:00 Cancel Amino Acid Protein 30 ml DAILY PO 11/04/24 10:00 11/26/24 10:20 30 ML Pantoprazole Sodium 40 mg BID IV 11/09/24 22:00 11/26/24 20:10 40 MG Mexiletine HCl 150 mg TID GT 11/10/24 22:00 11/27/24 05:11 150 MG Fat Emulsion Intravenous 150 ml/Sodium Acetate 20 meq/Potassium Acetate 30 meq/ Potassium Phosphate 19.8 meq/Calcium Gluconate 2.3 meq/ Magnesium Sulfate 4 meq/ Multivitamins 10 ml/Chromium/ Copper/Manganese/ Zinc 1 ml/Amino Acids/Dextrose/ Purified Water 1,596.4462 ml @ 66 mls/hr [id number] IV 11/11/24 22:00 11/12/24 21:59 Cancel Furosemide 40 mg BIDD IV 11/14/24 18:00 11/27/24 05:12 40 MG Phenylephrine HCl 250 ml @ 30 mls/hr Q8H20M IV 11/15/24 09:00 11/25/24 07:51 30 MLS/HR Acetaminophen 650 mg Q4HR PRN GT 11/17/24 08:30 11/22/24 07:10 650 MG Potassium Bicarbonate 50 meq BID PEG 11/18/24 22:00 11/26/24 20:11 50 MEQ Enteral Nutritional Formula 1,000 ml 55ML/HR GT 11/19/24 15:00 11/23/24 12:14 1,000 ML Metoclopramide HCl 5 mg Q8HR IV 11/19/24 22:00 11/26/24 06:39 5 MG Lorazepam 1 mg ONCE PRN IV 11/20/24 10:30 Polyethylene Glycol 17 gm DAILY PO 11/22/24 10:00 11/24/24 10:10 17 GM Fentanyl Citrate 250 ml @ 2.5 mls/hr Q24H IV 11/24/24 15:45 11/25/24 07:50 10 MLS/HR Apixaban 2.5 mg BID PEG 11/26/24 22:00 11/26/24 20:10 2.5 MG laboratory and microbiology Laboratory Tests 11/26/24 09:20 11/26/24 03:51 Test 11/26/24 03:51 Range/Units Serum Glucose 97 74-106 mg/dL Assessment/Plan Still in ICU, Extubated No significant Arrhythmia identified during this episodes. Alert, NAD Patient is a 54-year-old female who was brought to the hospital for witnessed syncope. She is intubated and is being managed in ICU. Information was obtained by reviewing the chart and communicating with patient's son (over the phone). Family recognized witnessed syncope and started CPR and called EMS. Reportedly, EMS found the patient in ventricular fibrillation and shocked the patient and brought the patient to the hospital. Patient was intubated in emergency room and transferred to ICU. Patient was on amiodarone drip. Later the patient had ventricular tachycardia (Systane). High sensitive troponin had been minimally/flatly elevated. Presentation was not in favor of acute coronary syndrome. Cardiology is involved for cardiac aspects of care. Extubated. NAD No JVD. Mucosa pale. No carotid bruit. Scattered rhonchi in the lungs is heard. Cardiac: Regular, no thrill. Systolic murmur 2/6 in apex is heard. Abdomen is soft. 3+ edema in extremities. Past medical history as per son: Congenital heart disease, status post bypass WBC: 14.5 - 11.9 - 18.8 - 20.0 - 21.2 - 14.3 - 10.3 - 8.9 - 9.2 - 11.1 - 12.1 - 10.8 - 12.0 - 9.9 - 15.4 - 14.8 - 12.1 - 10.5 - 5.8 - 5.3 - 4.2 - 5.8 - 4.1 - 7.0 - 9.3 - 8.3 - 11.5 - 8.4 - 8.4 - 5.4 - 5.7 - 8.4 - 7.4 - 6.2 - 6.7 - 13.9 - 11.7 - 10.1 - 8.8 - 10.7 - 13.9 - 10.6 - 11.5 - 9.6 - 7.4 - 4.7 - 4.9 - 3.3 Hemoglobin: 10.1 - 9.6 - 9.2 - 8.8 - 8.7 - 8.0 - 8.3 - 8.5 - 7.8 - 10.2 - 10.7 - 9.9 - 9.7 - 9.3 - 9.3 - 8.6 - 8.1 - 7.4 - 7.5 - 7.4 - 7.5 - 7.2 - 7.7 - 7.0 - (post PRBC transfusion) 10.4 - 10 - 9.5 - 10.0 - 9.2 - 9.8 -9.6 - 9.7 - 10.2 - 10.6 - 9.7 - 9.7 - 10.5 - 10.0 - 11.4 - 10.8 - 12.4 - 12.7 - 13.3 - 12.3 - 12.0 - 11.6 - 11.7 - 10.9 - 9.8 Creatinine: 0.95 - 0.93 - 0.87 - 0.83 - 0.83 - 0.76 - 0.68 - 0.72 - 0.79 - 0.76 - 0.80 - 0.84 - 0.61 - 0.65 - 0.74 - 0.64 - 0.73 - 0.82 - 0.88 - 1.03 - 0.99 - 0.85 - 0.87 - 0.79 - 1.12 - 1.15 - 1.04 - 0.96 - 0.94 - 0.93 - 0.78 - 0.71 - 0.68 - 0.61 - 0.59 - 0.49 - 0.39 - 0.54 - 0.48 - 0.76 - 0.93 - 0.78 - 0 078 - 0.68 - 0.70 - 0.56 -0.64 - 0.63 - 0.63 - 0.57 - 0.48 - 0.52 - 0.41 - 0.47 Potassium: 3.4 - 4.0 - 4.6 - 3.5 - 3.3 - 4.1 - 3.7 - 3.2 - 3.7 - 4.0 - 3.2 - 3.4 - 3.9 - 4.2 - 3.3 - 3.8 - 3.6 - 3.4 - 4.2 - 3.8 - 4.5 - 4.1 - 3.5 - 4.2 - 3.3 - 2.6 - 3.5 - 3.8 - 2.4 - 2.9 - 4.6 - 2.8 - 4.8 - 4.9 - 3.4 - 3.1 - 3.7 - 4.4 - 3.7 - 3.7 - 3.1 - 3.0 - 3.8 - 4.4 - 3.8 - 4.1 - 4.3 - 3.9 - 4.4 - 6.1 - 4.6 - 3.0 - 3.6 - 3.1 - 2.1 - 4.6 - 2.5 - 3.1 - 4.4 - 4.9 - 4.9 - 4.3 - 3.8 - 4.9 - 4.4 - 4.5 Magnesium: 2.0 - 1.6 - 2.0 - 3.0 - 1.5 - 1.9 - 2.1 - 1.8 - 2.0 - 1.9 - 1.9 - 2.6 - 2.0 - 1.8 - 1.6 - 2.0 - 2.2 - 1.9 - 2.3 - 2.2 - 2.2 - 2.1 - 2.1 - 1.9 2.7 - 2.6 - 2.3 - 2.4 - 2.5 - 2.3 - 2.5 - 2.3 - 2.3 - 2.4 - 2.1 - 1.9 - 2.2 - 2.1 - 2.0 - 2.4 - 2.2 - 2.0 - 2.0 - 1.6 - 2.0 - 2.0 - 2.0 - 2.1 Troponin (high sensitive): 141 - 138 - 117 BNP: 457.16 - 1073.91 - 928.14 AST/ALT: 32/11 - 19/13 - 538/168 - 293/152 - 131/130 - 78/94 - 68/74 - 48/57 - 27/38 - 15/23 - 20/18 - 23/17 - 29/16 - 27/13 - 34/17 - 73/49 - 41/43 - 30/47 - 30/42 - 29/42 - 17/27 - 160/87 - 900/478 - 986/571 - 382/436 - 110/244 - 42/170 - 22/113 - 16/77 - 15/59 - 19/50 - 20/41 - 16/32 - 17/30 - 14/25 - 25/38 - - /2337 - >6000/>6000 - 4665/>6000 - 2123/>6000 - 604/4207 - 203/2809 - 131/1787 - 64/898 - 52/456 - 55/388 - 43/291 - 43/239 Digoxin level: 2.83 - 1.25 - 0.98 UDS: non-revealing Chest x-ray revealed: Lines and Tubes: Endotracheal tube tip projects approximately 1.4 cm above the level of the tyler. Enteric catheter courses below the lateral of the diaphragm and terminates beyond the inferior margin of the image. Right internal jugular central venous catheter terminates within the distal superior vena cava. Lungs: Moderate diffuse increased prominence of the pulmonary vasculature without evidence of focal consolidation. Pleura: No effusion. No pneumothorax. Cardiomediastinal contours: Cardiomegaly. Bones: Unremarkable IMPRESSION: 1. Cardiomegaly and diffuse increased prominence of the pulmonary vasculature. 2. Lines and tubes as above. Repeat chest x-ray revealed: IMPRESSION: 1. Endotracheal tube tip 1.6 cm above the tyler; consider 2 cm retraction 2. Mild pulmonary vascular congestion. Moderate cardiomegaly. Repeat chest xry revealed: IMPRESSION: Endotracheal tube tip 1.6 cm above the tyler; consider 2 cm retraction Mild pulmonary vascular congestion. Moderate cardiomegaly. Repeat chest xry revealed: IMPRESSION: 1. Stable cardiomegaly, small left pleural effusion and mild diffuse increased prominence of the pulmonary vasculature. 2. Repositioned endotracheal tube as above. Remaining lines and tubes unchanged. Repeat chest xry revealed: IMPRESSION: 1. Cardiomegaly, stable diffuse increased prominence of the pulmonary vasculature and small bilateral pleural effusions. 2. Slight interval advancement of endotracheal tube as above. Remaining lines and tubes unchanged. Repeat chest xry revealed: IMPRESSION: 1. Slight interval decrease in diffuse increased prominence of the pulmonary vasculature. 2. Stable cardiomegaly and small left pleural effusion. 3. Lines and tubes unchanged. Repeat chest xry revealed: IMPRESSION: 1. Cardiomegaly and small left pleural effusion. 2. Lines and tubes unchanged. Repeat chest xry revealed: IMPRESSION: Stable lines and tubes. Similar lung aeration. Repeat chest xry revealed: IMPRESSION: Cardiomegaly and small left pleural effusion. Lines and tubes unchanged. Repeat chest xry revealed: IMPRESSION: Placement of a cardiac pacer, no pneumothorax is seen. Stable lines and tubes. Repeat chest xry revealed: IMPRESSION: 1. Worsening mixed opacities in the right lower lung. No other significant change from the previous study. Stable support devices. Repeat chest xry revealed: Heart is prominent in size with postsurgical changes, median sternotomy wires, and a single lead left cardiac defibrillator. Support lines and tubes appear unchanged in satisfactory in position. No sizable effusion or pneumothorax. Mild pulmonary vascular congestion. No significant interval change. Repeat chest xry revealed: IMPRESSION: 1. No significant change from the previous study. Stable support devices. Similar findings of heart failure including left pleural effusion. Repeat chest xry revealed: IMPRESSION: 1. No significant change from the previous study. Stable support devices. Similar findings of heart failure including trace left pleural effusion. Repeat chest xry revealed: Lines and Tubes: Unchanged. Left anterior chest wall cardiac pacing device. Lungs: Clear Pleura: No effusion. No pneumothorax. Cardiomediastinal contours: Cardiomegaly. Bones: Unremarkable IMPRESSION: 1. Cardiomegaly. 2. Lines and tubes unchanged. Repeat chest xry revealed: IMPRESSION: Lines and tubes in satisfactory position. No significant interval change. Repeat chest xry revealed: Lines and Tubes: ET tube and NG tube removed. Lungs: Congestion Pleura: No effusion. No pneumothorax. Cardiomediastinal contours: Cardiomegaly Bones: Unremarkable IMPRESSION: 1. Cardiomegaly with CHF. Repeat chest xry revealed: IMPRESSION: 1. Cardiomegaly. 2. Patchy bilateral airspace disease. Repeat chest xry revealed: FINDINGS: Lines and Tubes: None. Left anterior chest wall cardiac pacing device. Lungs: Extensive multifocal bilateral pulmonary airspace disease in a predominantly perihilar and bibasilar distribution with consolidative features. Pleura: No effusion. No pneumothorax. Cardiomediastinal contours: Poorly evaluated secondary to extensive bilateral infiltrate. Bones: Unremarkable IMPRESSION: 1. Extensive multifocal bilateral pulmonary airspace disease in a predominantly perihilar and bibasilar distribution with consolidative features. Repeat chest xry revealed: IMPRESSION: 1. Status post interval intubation. Endotracheal tube tip projects approximately 2.4 cm above the level of the tyler. 2. Grossly stable appearing moderate patchy multifocal bilateral pulmonary airspace disease with consolidative features. 3. Cardiomegaly. Repeat chest xry revealed: IMPRESSION: No significant interval change. Repeat chest xry revealed: IMPRESSION: No significant interval change Repeat chest xry revealed: IMPRESSION: 1. Interval retraction of the endotracheal tube such that the tip now projects approximately 4.5 cm above the level of the tyler. 2. Cardiomegaly. Repeat chest xry revealed: IMPRESSION: 1. Mild interval advancement of the endotracheal tube such that the tip now projects approximately 3.3 cm above the level of the tyler. 2. No evidence of acute cardiopulmonary process. Repeat chest xry revealed: IMPRESSION: Lines and tubes in satisfactory position. No significant interval change. Repeat chest xry revealed: IMPRESSION: 1. Interval advancement of endotracheal tube such that the tip now projects approximately 3.7 cm above the level of the tyler. Remaining lines and tubes unchanged. 2. Cardiomegaly. Repeat chest xry revealed: IMPRESSION: Unchanged pulmonary vascular congestion. Repeat chest xry revealed: IMPRESSION: No significant interval change. Repeat chest xry revealed: IMPRESSION: 1. Interval retraction of endotracheal tube such that the tip now projects approximately 4.5 cm above the level of the tyler. Remaining lines and tubes unchanged. 2. Cardiomegaly. Repeat chest xry revealed: IMPRESSION: 1. Appropriate position of the support lines and tubes. 2. No acute pulmonary disease. 3. Stable cardiomegaly. Gall Bladder Ultrasound revealed: IMPRESSION: Gallstones are noted. Hepatic steatosis Trace ascites Trace bilateral pleural effusions. Hepatic cirrhosis. Liver Ultrasound revealed: Hepatic steatosis. Trace right pleural effusion. Trace ascites Gallstones Bladder ultrasound revealed: IMPRESSION: 1. Cutler catheter in the bladder in the bladder is decompressed. Repeat Bladder Ultrasound revealed: Urinary bladder is unremarkable with prevoid volume of 29 mL. Urinary bladder wall measures 1.5 mm. Cutler catheter is noted. KUB revealed: IMPRESSION: Nonobstructive bowel gas pattern. Nasogastric tube tip in the stomach. Large stool burden. Repeat KUB revealed: Right lower extremity PICC line with tip projecting over the expected region of the intrahepatic IVC. Nasogastric tube projecting towards the distal stomach. Nonspecific bowel gas pattern. Cardiomegaly and left basilar airspace opacities, incompletely characterized. Atherosclerotic calcification disease. Repeat KUB revealed: IMPRESSION: 1. Nonspecific nonobstructive bowel gas pattern. 2. Gastrostomy tube projects over the midportion of the left hemiabdomen. 3. Right femoral approach central venous catheter as described above. Repeat KUB revealed: IMPRESSION: Nonobstructive bowel gas pattern. Right central venous catheter tip in the IVC Cutler catheter overlying the bladder. Left upper ext arterial duplex: IMPRESSION: No hemodynamically significant stenosis based on peak systolic velocity criteria. Left lower ext arterial duplex: IMPRESSION: There is no evidence for peripheral vascular insufficiency in the left lower extremity. No significant focal stenosis is identified. Liver Ultrasound revealed: Hepatic steatosis. Hepatomegaly. Cholelithiasis. CT of the head revealed: IMPRESSION: No acute intracranial abnormality. Repeat CT of head revealed: IMPRESSION: No acute intracranial abnormality. Repeat CT of Head revealed: IMPRESSION: No acute intracranial abnormality. Repeat CT of head revealed: IMPRESSION: 1. No acute intracranial abnormality. 2. No findings to suggest territorial ischemia. Echocardiogram reported: lvef 15-20% dilated LV severe global dysfunction mild RV dysfunction biatrial enlargement mild moderate MAC, moderate mitral regurg mild to moderate aortic regug (images of echo reviewed and questioned presence of mitral ring and also some component (moderate of Mitral stenosis) EKG revealed sinus rhythm Telemetry revealed occasions of atrial fibrillation. There was occasional sustained ventricular tachycardia. EMS tele monitor revealed ventricular fibrillation for which the patient was shocked. Has remained sinus rhythm. Later with A-fib with MVR LHC revealed: Patent RICHMOND to LAD; Patent SVG to obtuse marginal; LVEF of 20% with increased EDP; Proximal disease in LAD/LCX RICHIE was performed: Consistent with severely reduced LVEF. Consistent with previously implanted Mitral ring, Up to moderate Mitral stenosis/Mitral Regurgitation and also Moderate Aortic insufficiency. Patient is a 54-year-old female who presented with witnessed syncope. She was found to have ventricular fibrillation for which was shocked. Later had repeated episode of sustained ventricular tachycardia. Patient has been kept in ICU. Does have baseline history of coronary artery disease for which has had bypass surgery. Left heart catheterization was performed which revealed patent RICHMOND and patent SVG. ACS is not considered at this point. It is of note that the patient's echocardiogram reveals significantly use systolic function. Valvular heart disease is considered. Findings are in favor of previously implanted mitral ring. By reviewing the echo images, component of up to moderate mitral stenosis could not be ruled out. LHC was performed that ruled out any active specific ischemia as an etiology for presentation. Is off Amiodarone for abnormal LFT. Being followed by Nephrology / Pulmonary / Neurology / GI ID. Tele has remained sinus rhythm. Had episode of a-fib with RVR. Was loaded with Digoxin. Dig level was performed at wrong timing (only 5 hours after the last Dig given). Dig toxicity is not considered. Patient is back to normal sinus rhythm. Has good kidney function. Repeat Dig level is acceptable level. s/p ICD implantation by EP. Intubated, later extubated. s/p PEG. Later had respiratory failure and was taken back to ICU. Imaging question pneumonia (can it be aspiration?). Eventhough repeat BNP has not increased (decreased somehow), patient does have peripheral edema and component of acute on chronic Systolic heart failure could also contribute to respiratory failure. The site of ICD implantation was reviewed by EP (Dr Armstrong on 05/13/2024): healing well (personal communication). Had repeat respiratory failure, back in ICU and intubated. Abnormal LFT. Found to have gall stone and Liver cirrhosis Syncope V-fib s/p shock Sustained V-tach Paroxysmal A-fib VHD, s/p Mitral ring Systolic heart failure Abnormal LFT, at a point resolved, later appeared again s/p ICD (Biotronik) implantation by EP (Dr Armstrong) s/p PRBC transfusion for significant anemia Hepatic Steatosis Gallstones Failed Swallowing s/p PEG Acute respiratory failure Acute on chronic systolic heart failure Gallstone Liver cirrhosis s/p repeated intubation and extubations Cardiac suggestion for management: Manage in ICU IV diuresis Follow up electrolytes and kidney function test and correct abnormalities Full anticoagulation (a-fib with high CHADS-Vasc score). s/p ICD implantation. On Eliquis On Mexiletine On Levo-Phed: keep MAP above 65 (for now off pressure support and tolerating) Was on Metoprolol to decrease risk of Vtach (as patient has ICD with bradycardia protection: may continue metoprolol in case of bradycardia, but hold: if hypotensive). For now will stop/hold Metoprolol May consider/add Esmolol for PVC/Vtach (if needed) s/p ICD (Biotronik) implantation by EP Eliquis: 2.5 mg BID s/p PEG Pulmonary Follow up GI follow up Cardiac arenas (hemodynamically): stable Management of repeat respiratory failure, pneumonia as per primary team/pulmonary Provide previous medical records from reaching out to previous hospitals in [facility]... Further evaluation and management depends on the above and clinical course. A total of 75 minutes was spent reviewing the patient record, examining the patient, making a diagnostic and therapeutic plan, discussing this plan with medical personnel, following up on diagnostic studies and following the patient for clinical stability excluding any and all procedures. At least 50% of this time was spent in direct, [id number] contact. Thank you for allowing me to participate in this patient's care. Further recommendations will depend on patient's clinical course. Please do not hesitate to contact me if you have any questions or concerns. This medical document was created using electronic medical record system with [employer] computerized dictation system. Although this document has been carefully reviewed, there may still be some phonetic and typographical errors. These areas are purely typographical due to the imperfection of the software programs, and do not reflect any compromise in the patient's medical care. Dietary Evaluation Review Comments: 1) TF Jevity 1.2Cal @ 55 ml/hr. x 24hr along with Pro-stat 1 pk daily. Start @ 20ml/hr, increase 10ml/hr Q4H until goal is reached. TF @ goal volume provides 1684 kcal (100% energy needs), 88 gm protein (100% protein needs), 1065 ml free water. 2) Water flush 100ml Q4H if allowed, adjust PRN 3) Advance to cardiac diet as medically feasible 4) Monitor NPO status, lab values, wt trend, I/O Expected Outcomes/Goals: To meet >75% estimated needs within 7 days Lab values to improve Fu 2-3 days Plan discussed with: Other (nurse) CORDELL VERA MD Nov 27, 2024 08:19
--- NOTE | 2024-11-27 10:19 | DVHPN2 ---
Progress Note Date Seen: Nov 27, 2024 Resident Creating Document: ETHAN SWAN RESIDENT Has the PT tested + for MRSA If YES, has PT been informed?: No Medical Necessity Reason Pt with a Central, PICC or Fol: No The following are medically ne: PICC Line, Cutler Catheter Reason for cutler catheter: Strict I&O Subjective Review of Systems Patient seen and examined at bedside More alert than yesterday Receiving tube feedings via PEG tube at 55 cc/hour with residuals 30 cc Last BM today, watery Three bowel movements in the past 24 hours Objective vital signs Vital Sign Date Time Temp Pulse Resp B/P (MAP) Pulse Ox O2 Delivery O2 Flow Rate FiO2 11/27/24 08:00 12 99 Nasal Cannula* 2 28 11/27/24 08:00 98.6 74 96/40 (58) 98.6 Total Intake and Output 11/26/24 11/26/24 11/27/24 15:00 23:00 07:00 Intake Total 362 ml 660 ml Output Total 1000 ml 1300 ml Balance -638 ml -640 ml medications Current Medications Medications Dose Ordered Sig/Liliam Route Start Time Stop Time Status Last Admin Dose Admin Amino Acids 0 ml @ 0 mls/hr PER PHARMACY IV 10/15/24 18:45 Cancel Dextrose 50 ml UD IV 10/16/24 09:30 Cancel Vancomycin HCl 0 ml @ 0 mls/hr UD IV 10/19/24 14:00 Cancel Metoprolol Tartrate 2.5 mg Q6HPRN PRN IV 10/31/24 09:15 Amino Acids 0 ml @ 0 mls/hr PER PHARMACY IV 11/04/24 22:00 Cancel Amino Acid Protein 30 ml DAILY PO 11/04/24 10:00 11/26/24 10:20 30 ML Pantoprazole Sodium 40 mg BID IV 11/09/24 22:00 11/26/24 20:10 40 MG Mexiletine HCl 150 mg TID GT 11/10/24 22:00 11/27/24 05:11 150 MG Fat Emulsion Intravenous 150 ml/Sodium Acetate 20 meq/Potassium Acetate 30 meq/ Potassium Phosphate 19.8 meq/Calcium Gluconate 2.3 meq/ Magnesium Sulfate 4 meq/ Multivitamins 10 ml/Chromium/ Copper/Manganese/ Zinc 1 ml/Amino Acids/Dextrose/ Purified Water 1,596.4462 ml @ 66 mls/hr [id number] IV 11/11/24 22:00 11/12/24 21:59 Cancel Furosemide 40 mg BIDD IV 11/14/24 18:00 11/27/24 05:12 40 MG Phenylephrine HCl 250 ml @ 30 mls/hr Q8H20M IV 11/15/24 09:00 11/25/24 07:51 30 MLS/HR Acetaminophen 650 mg Q4HR PRN GT 11/17/24 08:30 11/22/24 07:10 650 MG Potassium Bicarbonate 50 meq BID PEG 11/18/24 22:00 11/26/24 20:11 50 MEQ Enteral Nutritional Formula 1,000 ml 55ML/HR GT 11/19/24 15:00 11/23/24 12:14 1,000 ML Metoclopramide HCl 5 mg Q8HR IV 11/19/24 22:00 11/26/24 06:39 5 MG Lorazepam 1 mg ONCE PRN IV 11/20/24 10:30 Polyethylene Glycol 17 gm DAILY PO 11/22/24 10:00 11/24/24 10:10 17 GM Fentanyl Citrate 250 ml @ 2.5 mls/hr Q24H IV 11/24/24 15:45 11/25/24 07:50 10 MLS/HR Apixaban 2.5 mg BID PEG 11/26/24 22:00 11/26/24 20:10 2.5 MG Examination General Appearance: Somnolent Head Exam: Normal inspection. Constricted equal and reactive pupils Neck Exam: Normal inspection. Non-tender. Normal alignment Pulmonary/Respiratory: Chest non-tender. Trace crackles Abdominal Exam: Normal bowel sounds. Soft. Nontender Skin Exam: Normal inspection. Normal color. Warm. Dry laboratory and microbiology Test 11/27/24 09:50 Range/Units Serum Glucose Pending Microbiology Date/Time Source Procedure Growth Status 11/16/24 04:50 Urine - Cutler Port Urine Culture - Final Enterococcus faecium - VRE Complete 11/14/24 11:50 Sputum Endotracheal Wash Gram Stain - Final Complete 11/14/24 11:50 Sputum Endotracheal Wash Respiratory Culture - Final Complete 11/14/24 08:50 Blood Blood Culture - Final NO GROWTH AFTER 5 DAYS OF INCUBATION. Complete 11/14/24 04:30 Nose MRSA Screen - Final Complete Labs and/or images reviewed: Labs reviewed by me, Image(s) reviewed by me Problem List/Assessment/Plan Problem List/Assessment/Plan Acute hepatocellular injury likely shock liver Hepatic cirrhosis? Coagulopathy due to above Ventricular fibrillation S/p cardiopulmonary arrest with shock Heart failure with reduced ejection fraction 15-20% Metabolic versus hypoxic encephalopathy Cholelithiasis without acute inflammation Nonalcoholic fatty liver disease with steatohepatitis Community-acquired pneumonia growing Enterobacter Aspiration pnemonia? sepsis Plan: S/p extubation Discontinued free water continue antibiotics consider MRCP once stable Tapered hydrocortisone to q.12 hours on 11/06/2024 Tapered hydrocortisone to once daily on 11/13/2024 Discontinued hydrocortisone on 11/20/2024 s/p PEG tube placement monitor LFT's Keep PT/INR therapeutic Hemoglobin stable, transfuse if HB 7 or less Continue tube feedings at 55cc/hr Discontinued metoclopramide JAIDEN positive, outpatient follow up with GI recommended for further workup Discharge planning to senior care facility recommended Thank you so much for the opportunity to consult on your patient. GI team will follow the patient. In case of any questions or concerns please feel free to reach out. Plan discussed with Dr. Anglin Plan discussed with: Other (RN) Dietary Evaluation Review Comments: 1) TF Jevity 1.2Cal @ 55 ml/hr. x 24hr along with Pro-stat 1 pk daily. Start @ 20ml/hr, increase 10ml/hr Q4H until goal is reached. TF @ goal volume provides 1684 kcal (100% energy needs), 88 gm protein (100% protein needs), 1065 ml free water. 2) Water flush 100ml Q4H if allowed, adjust PRN 3) Advance to cardiac diet as medically feasible 4) Monitor NPO status, lab values, wt trend, I/O Expected Outcomes/Goals: To meet >75% estimated needs within 7 days Lab values to improve Fu 2-3 days ETHAN SWAN RESIDENT Nov 27, 2024 10:19
[2024-11-27 10:24] LABS: Chloride 99 mmol/L (98-107); Potassium 4.1 mmol/L (3.5-5.1); Sodium 143 mmol/L (136-145)
[2024-11-27 10:25] LABS: Anion Gap 9 (5-15)
[2024-11-27 10:27] LABS: Calcium 8.2 mg/dL (8.7-10.4); Carbon Dioxide 35 mmol/L (20-31)
[2024-11-27 10:30] LABS: BUN/Creatinine Ratio 44.2 (10.0-20.0); Blood Urea Nitrogen 19 mg/dL (9-23); Magnesium 1.9 mg/dL (1.6-2.6)
[2024-11-27 10:33] LABS: Glucose 116 mg/dL (74-106)
[2024-11-27 11:05] LABS: Hematocrit 35.3 % (36.0-46.0); Hemoglobin 10.9 g/dL (12.2-16.2); Mean Corpuscular Hemoglobin 30.7 pg (28.0-32.0); Mean Corpuscular Volume 99.7 fL (80.0-100.0); Nucleated Red Blood Cells % 0.3 %
--- NOTE | 2024-11-27 12:15 | DVHPN2 ---
Progress Note - Dictate Date Seen: Nov 27, 2024 Has the PT tested + for MRSA If YES, has PT been informed?: No Medical Necessity Reason Pt with a Central, PICC or Fol: No The following are medically ne: PICC Line, Cutler Catheter Reason for cutler catheter: Strict I&O vital signs Vital Sign Date Time Temp Pulse Resp B/P (MAP) Pulse Ox O2 Delivery O2 Flow Rate FiO2 11/27/24 12:00 98.2 76 20 100/48 (65) 100 98.2 11/27/24 10:00 Nasal Cannula* 2 28 Total Intake and Output 11/26/24 11/26/24 11/27/24 14:59 22:59 06:59 Intake Total 362 ml 660 ml Output Total 1000 ml 1300 ml Balance -638 ml -640 ml medications Current Medications Medications Dose Ordered Sig/Liliam Route Start Time Stop Time Status Last Admin Dose Admin Amino Acids 0 ml @ 0 mls/hr PER PHARMACY IV 10/15/24 18:45 Cancel Dextrose 50 ml UD IV 10/16/24 09:30 Cancel Vancomycin HCl 0 ml @ 0 mls/hr UD IV 10/19/24 14:00 Cancel Metoprolol Tartrate 2.5 mg Q6HPRN PRN IV 10/31/24 09:15 Amino Acids 0 ml @ 0 mls/hr PER PHARMACY IV 11/04/24 22:00 Cancel Amino Acid Protein 30 ml DAILY PO 11/04/24 10:00 11/27/24 10:00 30 ML Pantoprazole Sodium 40 mg BID IV 11/09/24 22:00 11/27/24 10:33 40 MG Mexiletine HCl 150 mg TID GT 11/10/24 22:00 11/27/24 05:11 150 MG Fat Emulsion Intravenous 150 ml/Sodium Acetate 20 meq/Potassium Acetate 30 meq/ Potassium Phosphate 19.8 meq/Calcium Gluconate 2.3 meq/ Magnesium Sulfate 4 meq/ Multivitamins 10 ml/Chromium/ Copper/Manganese/ Zinc 1 ml/Amino Acids/Dextrose/ Purified Water 1,596.4462 ml @ 66 mls/hr [id number] IV 11/11/24 22:00 11/12/24 21:59 Cancel Furosemide 40 mg BIDD IV 11/14/24 18:00 11/27/24 05:12 40 MG Phenylephrine HCl 250 ml @ 30 mls/hr Q8H20M IV 11/15/24 09:00 11/25/24 07:51 30 MLS/HR Acetaminophen 650 mg Q4HR PRN GT 11/17/24 08:30 11/22/24 07:10 650 MG Potassium Bicarbonate 50 meq BID PEG 11/18/24 22:00 11/27/24 10:33 50 MEQ Enteral Nutritional Formula 1,000 ml 55ML/HR GT 11/19/24 15:00 11/23/24 12:14 1,000 ML Metoclopramide HCl 5 mg Q8HR IV 11/19/24 22:00 11/26/24 06:39 5 MG Lorazepam 1 mg ONCE PRN IV 11/20/24 10:30 Polyethylene Glycol 17 gm DAILY PO 11/22/24 10:00 11/24/24 10:10 17 GM Fentanyl Citrate 250 ml @ 2.5 mls/hr Q24H IV 11/24/24 15:45 11/25/24 07:50 10 MLS/HR Apixaban 2.5 mg BID PEG 11/26/24 22:00 11/27/24 10:33 2.5 MG objective HEENT: EOMI, PERRLA, normal external inspect of ears, no icterus, no nasal drainage Neck: no carotid bruit, no jugular venous distention (JVD), no lymphadenopathy Chest: normal thorax Respiratory: Intubated, clear to auscultation, normal air movement Cardiovascular: regular rate and rhythm, no diastolic murmur, no jugular venous distention (JVD), no rub, no systolic murmur Abdominal: soft, no hepatomegaly, no mass, no splenomegaly, no tenderness Genitourinary: grossly normal external Musculoskeletal: no joint tenderness, no swelling Extremities: normal pulses, no calf tenderness, no clubbing, no cyanosis, no edema Skin: no bruising, no jaundice, no rash Neurological: No focal deficit laboratory and microbiology Laboratory Tests 11/27/24 09:50 Test 11/27/24 09:50 Range/Units Serum Glucose 116 H 74-106 mg/dL Problem List Cardiac Arrest with Ventricular Fibrillation Assessment: Patient experienced cardiac arrest with ventricular fibrillation on 10/07/24, witnessed by family members who initiated CPR. EMS found the patient in ventricular fibrillation and administered shock therapy. Rhythm strip analysis confirmed ventricular fibrillation. Patient required intubation and sedation upon ED arrival. Currently admitted to ICU for close observation. Cardiology has been consulted and plans for AICD placement, likely on Tuesday. Infectious disease clearance has been obtained for the AICD procedure, addressing initial concerns of leukocytosis which is now improving. Status post-cardiac arrest. Plan: - Continue ICU monitoring - Proceed with AICD placement as planned (likely Tuesday), cleared by infectious disease. - Maintain intubation and sedation until AICD placement - Continue Heparin drip for paroxysmal atrial fibrillation - Continue Mexitil - DC amiodarone due to transaminitis - added esmolol drip per Cardiology for AFib and added push doses of digoxin Coronary Artery Disease Assessment: Patient with history of 2-vessel CABG (Coronary Artery Bypass Grafting). Surgical intervention previously performed to address significant coronary artery stenosis. Plan: - Continue medical management - Follow up with cardiology for ongoing coronary artery disease management Acute and Chronic Systolic Heart Failure Assessment: Patient has acute and chronic systolic heart failure with severely reduced left ventricular function. Ejection fraction is estimated at 15-20%. RICHIE findings are consistent with severely reduced left ventricular ejection fraction, previously implanted mitral ring, up to moderate mitral stenosis and regurgitation, and moderate aortic insufficiency. Plan: - Continue cardiology consultation - continue IV diuretics (IV Lasix) - Monitor renal function Acute Hypoxic Respiratory Failure Assessment: Patient is currently intubated due to acute hypoxic respiratory failure. Dr. Downey from pulmonology is managing this aspect of care. Plan: - Maintain current intubation as per pulmonology recommendation - Proceed with CPAP trials when deemed appropriate by pulmonology Transaminitis Assessment: Patient has elevated liver function tests, likely secondary to amiodarone use. Cardiology has discontinued amiodarone in response. Plan: - Monitor liver function tests - Amiodarone discontinued as per cardiology Enterobacter PNA Assessment: Sputum culture positive for Enterobacter. Plan: - Continue treatment with Eratapenem to complete 10 days regimen -Infectious disease consult Hemodynamic Support Assessment: Patient requires vasopressor support for hemodynamic stability. Plan: - Continue vasopressin - Continue neosynephrine Paroxysmal a fib -DC amiodarone -continue with heparin gtt Shock liver GI consult, trend liver enzymes, hepatitis panel was negative. Ultrasound of the liver had no acute findings. Assessment/Plan Subjective: Patient is awake and alert. Objective: I spoke with RN at bedside. Patient was extubated yesterday, currently on 2 L nasal cannula. She does have a productive cough which she is having trouble clearing. Patient had acute hypoxic respiratory failure, she has now been extubated twice from the ventilator, most likely she has respiratory insufficiency. Patient is recovering from sepsis with septic shock from Enterobacter pneumonia and VRE in her urine. Hemoglobin is stable. Patient does have some thrombocytopenia, platelet count is 93. Magnesium is 1.9. Plan: Replace electrolytes. PT/OT eval. Patient was discontinued off antibiotics. technical services rep consult for rehabilitation outpatient. Patient stable to downgrade to the telemetry floor. Aspiration precautions. Continue tube feedings as tolerated. Discharge planning. Dietary Evaluation Review Comments: 1) TF Jevity 1.2Cal @ 55 ml/hr. x 24hr along with Pro-stat 1 pk daily. Start @ 20ml/hr, increase 10ml/hr Q4H until goal is reached. TF @ goal volume provides 1684 kcal (100% energy needs), 88 gm protein (100% protein needs), 1065 ml free water. 2) Water flush 100ml Q4H if allowed, adjust PRN 3) Advance to cardiac diet as medically feasible 4) Monitor NPO status, lab values, wt trend, I/O Expected Outcomes/Goals: To meet >75% estimated needs within 7 days Lab values to improve Fu 2-3 days Plan discussed with: Patient, Other BRODIE GARVIN MEETING PLANNER Nov 27, 2024 12:15
--- NOTE | 2024-11-27 12:17 | DVHPN2 ---
Progress Note - Dictate Has the PT tested + for MRSA If YES, has PT been informed?: No Medical Necessity Reason Pt with a Central, PICC or Fol: No The following are medically ne: PICC Line, Cutler Catheter Reason for cutler catheter: Strict I&O vital signs Vital Sign Date Time Temp Pulse Resp B/P (MAP) Pulse Ox O2 Delivery O2 Flow Rate FiO2 11/27/24 12:00 98.2 76 20 100/48 (65) 100 98.2 11/27/24 10:00 Nasal Cannula* 2 28 Total Intake and Output 11/26/24 11/26/24 11/27/24 14:59 22:59 06:59 Intake Total 362 ml 660 ml Output Total 1000 ml 1300 ml Balance -638 ml -640 ml medications Current Medications Medications Dose Ordered Sig/Liliam Route Start Time Stop Time Status Last Admin Dose Admin Amino Acids 0 ml @ 0 mls/hr PER PHARMACY IV 10/15/24 18:45 Cancel Dextrose 50 ml UD IV 10/16/24 09:30 Cancel Vancomycin HCl 0 ml @ 0 mls/hr UD IV 10/19/24 14:00 Cancel Metoprolol Tartrate 2.5 mg Q6HPRN PRN IV 10/31/24 09:15 Amino Acids 0 ml @ 0 mls/hr PER PHARMACY IV 11/04/24 22:00 Cancel Amino Acid Protein 30 ml DAILY PO 11/04/24 10:00 11/27/24 10:00 30 ML Pantoprazole Sodium 40 mg BID IV 11/09/24 22:00 11/27/24 10:33 40 MG Mexiletine HCl 150 mg TID GT 11/10/24 22:00 11/27/24 05:11 150 MG Fat Emulsion Intravenous 150 ml/Sodium Acetate 20 meq/Potassium Acetate 30 meq/ Potassium Phosphate 19.8 meq/Calcium Gluconate 2.3 meq/ Magnesium Sulfate 4 meq/ Multivitamins 10 ml/Chromium/ Copper/Manganese/ Zinc 1 ml/Amino Acids/Dextrose/ Purified Water 1,596.4462 ml @ 66 mls/hr [id number] IV 11/11/24 22:00 11/12/24 21:59 Cancel Furosemide 40 mg BIDD IV 11/14/24 18:00 11/27/24 05:12 40 MG Phenylephrine HCl 250 ml @ 30 mls/hr Q8H20M IV 11/15/24 09:00 11/25/24 07:51 30 MLS/HR Acetaminophen 650 mg Q4HR PRN GT 11/17/24 08:30 11/22/24 07:10 650 MG Potassium Bicarbonate 50 meq BID PEG 11/18/24 22:00 11/27/24 10:33 50 MEQ Enteral Nutritional Formula 1,000 ml 55ML/HR GT 11/19/24 15:00 11/23/24 12:14 1,000 ML Metoclopramide HCl 5 mg Q8HR IV 11/19/24 22:00 11/26/24 06:39 5 MG Lorazepam 1 mg ONCE PRN IV 11/20/24 10:30 Polyethylene Glycol 17 gm DAILY PO 11/22/24 10:00 11/24/24 10:10 17 GM Fentanyl Citrate 250 ml @ 2.5 mls/hr Q24H IV 11/24/24 15:45 11/25/24 07:50 10 MLS/HR Apixaban 2.5 mg BID PEG 11/26/24 22:00 11/27/24 10:33 2.5 MG objective HEENT: EOMI, PERRLA, normal external inspect of ears, no icterus, no nasal drainage Neck: no carotid bruit, no jugular venous distention (JVD), no lymphadenopathy Chest: normal thorax Respiratory: Intubated, clear to auscultation, normal air movement Cardiovascular: regular rate and rhythm, no diastolic murmur, no jugular venous distention (JVD), no rub, no systolic murmur Abdominal: soft, no hepatomegaly, no mass, no splenomegaly, no tenderness Genitourinary: grossly normal external Musculoskeletal: no joint tenderness, no swelling Extremities: normal pulses, no calf tenderness, no clubbing, no cyanosis, no edema Skin: no bruising, no jaundice, no rash Neurological: No focal deficit laboratory and microbiology Laboratory Tests 11/27/24 09:50 Test 11/27/24 09:50 Range/Units Serum Glucose 116 H 74-106 mg/dL Problem List Cardiac Arrest with Ventricular Fibrillation Assessment: Patient experienced cardiac arrest with ventricular fibrillation on 10/07/24, witnessed by family members who initiated CPR. EMS found the patient in ventricular fibrillation and administered shock therapy. Rhythm strip analysis confirmed ventricular fibrillation. Patient required intubation and sedation upon ED arrival. Currently admitted to ICU for close observation. Cardiology has been consulted and plans for AICD placement, likely on Tuesday. Infectious disease clearance has been obtained for the AICD procedure, addressing initial concerns of leukocytosis which is now improving. Status post-cardiac arrest. Plan: - Continue ICU monitoring - Proceed with AICD placement as planned (likely Tuesday), cleared by infectious disease. - Maintain intubation and sedation until AICD placement - Continue Heparin drip for paroxysmal atrial fibrillation - Continue Mexitil - DC amiodarone due to transaminitis - added esmolol drip per Cardiology for AFib and added push doses of digoxin Coronary Artery Disease Assessment: Patient with history of 2-vessel CABG (Coronary Artery Bypass Grafting). Surgical intervention previously performed to address significant coronary artery stenosis. Plan: - Continue medical management - Follow up with cardiology for ongoing coronary artery disease management Acute and Chronic Systolic Heart Failure Assessment: Patient has acute and chronic systolic heart failure with severely reduced left ventricular function. Ejection fraction is estimated at 15-20%. RICHIE findings are consistent with severely reduced left ventricular ejection fraction, previously implanted mitral ring, up to moderate mitral stenosis and regurgitation, and moderate aortic insufficiency. Plan: - Continue cardiology consultation - continue IV diuretics (IV Lasix) - Monitor renal function Acute Hypoxic Respiratory Failure Assessment: Patient is currently intubated due to acute hypoxic respiratory failure. Dr. Downey from pulmonology is managing this aspect of care. Plan: - Maintain current intubation as per pulmonology recommendation - Proceed with CPAP trials when deemed appropriate by pulmonology Transaminitis Assessment: Patient has elevated liver function tests, likely secondary to amiodarone use. Cardiology has discontinued amiodarone in response. Plan: - Monitor liver function tests - Amiodarone discontinued as per cardiology Enterobacter PNA Assessment: Sputum culture positive for Enterobacter. Plan: - Continue treatment with Eratapenem to complete 10 days regimen -Infectious disease consult Hemodynamic Support Assessment: Patient requires vasopressor support for hemodynamic stability. Plan: - Continue vasopressin - Continue neosynephrine Paroxysmal a fib -DC amiodarone -continue with heparin gtt Shock liver GI consult, trend liver enzymes, hepatitis panel was negative. Ultrasound of the liver had no acute findings. Assessment/Plan Subjective: Patient was extubated early this morning. Objective: Patient was admitted for cardiac arrest and is status post AICD placement. She had sepsis with septic shock, Enterobacter pneumonia, and VRE in her urine. This is her second extubation. She has acute hypoxic respiratory failure related to aspiration. Patient also has transaminitis and hepatic steatosis, most likely contributing to the slight elevation in liver enzymes. Ultrasound of the gallbladder showed no acute findings. Plan: Continue antibiotics per ID. Monitor daily labs. Continue supplemental O? and Med-Neb treatments as needed. Continue IV antibiotics. Dietary Evaluation Review Comments: 1) TF Jevity 1.2Cal @ 55 ml/hr. x 24hr along with Pro-stat 1 pk daily. Start @ 20ml/hr, increase 10ml/hr Q4H until goal is reached. TF @ goal volume provides 1684 kcal (100% energy needs), 88 gm protein (100% protein needs), 1065 ml free water. 2) Water flush 100ml Q4H if allowed, adjust PRN 3) Advance to cardiac diet as medically feasible 4) Monitor NPO status, lab values, wt trend, I/O Expected Outcomes/Goals: To meet >75% estimated needs within 7 days Lab values to improve Fu 2-3 days BRODIE GARVIN SINKER PULLER Nov 27, 2024 12:17
[2024-11-27] MEDS: MAGNESIUM SULFATE 1GM/100ML 100 ML IV SCH (13:36)
--- NOTE | 2024-11-27 19:07 | DVHPNRES ---
Progress Note Date Seen: Nov 27, 2024 Resident Creating Document: JANETTE BURNHAM RESIDENT Has the PT tested + for MRSA If YES, has PT been informed?: No Medical Necessity Reason Pt with a Central, PICC or Fol: No The following are medically ne: PICC Line, Cutler Catheter Reason for cutler catheter: Strict I&O Subjective Review of Systems Ms. Smith, a 54-year-old female with a history of paroxysmal atrial fibrillation, ventricular tachycardia, congenital heart disease, and multiple episodes of cardiac arrest was consulted for sepsis following a witnessed syncopal event. She had recently been discharged from [facility] in [place] with prescriptions for amiodarone, Lipitor, and Lasix, which she did not take. After traveling, she experienced another cardiac arrest requiring code blue intervention. EMS found her in ventricular fibrillation, successfully resuscitated her, and transported her to the hospital where she was intubated and admitted to the ICU. She underwent a left heart catheterization and transesophageal echocardiogram. Despite being on an amiodarone drip, she later developed ventricular tachycardia. Troponin levels were minimally elevated, and her presentation was not consistent with acute coronary syndrome. Cardiology is actively involved in her care. Patient seen and examined at the bedside. Patient is extubated today and she is currently on room air. Patient is A&O x1. 2 g magnesium was given today. Patient is off pressors and downgraded, waiting for SNF. Objective vital signs Vital Sign Date Time Temp Pulse Resp B/P (MAP) Pulse Ox O2 Delivery O2 Flow Rate FiO2 11/27/24 18:45 98.3 74 19 97/47 (64) 95 98.3 11/27/24 18:00 Room Air* 0 21 Total Intake and Output 11/26/24 11/26/24 11/27/24 15:00 23:00 07:00 Intake Total 362 ml 660 ml Output Total 1000 ml 1300 ml Balance -638 ml -640 ml medications Current Medications Medications Dose Ordered Sig/Liliam Route Start Time Stop Time Status Last Admin Dose Admin Amino Acids 0 ml @ 0 mls/hr PER PHARMACY IV 10/15/24 18:45 Cancel Dextrose 50 ml UD IV 10/16/24 09:30 Cancel Vancomycin HCl 0 ml @ 0 mls/hr UD IV 10/19/24 14:00 Cancel Metoprolol Tartrate 2.5 mg Q6HPRN PRN IV 10/31/24 09:15 Amino Acids 0 ml @ 0 mls/hr PER PHARMACY IV 11/04/24 22:00 Cancel Amino Acid Protein 30 ml DAILY PO 11/04/24 10:00 11/27/24 10:00 30 ML Pantoprazole Sodium 40 mg BID IV 11/09/24 22:00 11/27/24 10:33 40 MG Mexiletine HCl 150 mg TID GT 11/10/24 22:00 11/27/24 13:44 150 MG Fat Emulsion Intravenous 150 ml/Sodium Acetate 20 meq/Potassium Acetate 30 meq/ Potassium Phosphate 19.8 meq/Calcium Gluconate 2.3 meq/ Magnesium Sulfate 4 meq/ Multivitamins 10 ml/Chromium/ Copper/Manganese/ Zinc 1 ml/Amino Acids/Dextrose/ Purified Water 1,596.4462 ml @ 66 mls/hr [id number] IV 11/11/24 22:00 11/12/24 21:59 Cancel Furosemide 40 mg BIDD IV 11/14/24 18:00 11/27/24 17:45 40 MG Acetaminophen 650 mg Q4HR PRN GT 11/17/24 08:30 11/22/24 07:10 650 MG Potassium Bicarbonate 50 meq BID PEG 11/18/24 22:00 11/27/24 10:33 50 MEQ Enteral Nutritional Formula 1,000 ml 55ML/HR GT 11/19/24 15:00 11/23/24 12:14 1,000 ML Lorazepam 1 mg ONCE PRN IV 11/20/24 10:30 Apixaban 2.5 mg BID PEG 11/26/24 22:00 11/27/24 10:33 2.5 MG Examination Pt is lying on bed General Appearance: Not Alert, Oriented X2, HEENT: Atraumatic, Mucous membranes moist/pink Respiratory: Clear to auscultation, Normal air movement, No added sounds Cardiovascular: Irregular irregular rate, Normal S1, Normal S2, dressing is applied over the pacemaker implantation Abdominal: Active bowel sounds, Soft, no distention, no tenderness Extremities: No edema, Normal pulses, No tenderness/swelling Skin: widespread areas of ecchymosis Neuro: deferred due to confusion Nurse was there as director oncology during examination laboratory and microbiology Laboratory Tests 11/27/24 09:50 Test 11/27/24 09:50 Range/Units Serum Glucose 116 H 74-106 mg/dL Microbiology Date/Time Source Procedure Growth Status 11/16/24 04:50 Urine - [place] Urine Culture - Final Enterococcus faecium - VRE Complete 11/14/24 11:50 Sputum Endotracheal Wash Gram Stain - Final Complete 11/14/24 11:50 Sputum Endotracheal Wash Respiratory Culture - Final Complete 11/14/24 08:50 Blood Blood Culture - Final NO GROWTH AFTER 5 DAYS OF INCUBATION. Complete 11/14/24 04:30 Nose MRSA Screen - Final Complete Problem List/Assessment/Plan Problem List/Assessment/Plan Assessment: - Aspiration pneumonia with Enterobacter cloacae and yeast but not albicans isolates - Status post cardiac arrest with return of spontaneous circulation (ROSC) - Ventricular tachycardia and atrial fibrillation status post AICD placement - Recent aspiration event/pneumonitis versus pneumonia, Enterobacter cloacae isolated - Severe reduced ejection fraction (EF 1520%), dilated LV, severe global dysfunction - History of CABG with stents, mitral ring implant - Hypothermia, hypoxia requiring intubation and sedation with a status post extubation today - Sepsis (suspected/treated), leukocytosis (now resolved) - acute complicated UTI due to VRE Plan: 11/26/24: No signs active infection so no antibiotics needed at this time - Respiratory culture on 10/07/2024 Enterobacter cloaca then next on 10/13/2024 presumptive Ilda albicans then next on on 10/20/2024 Enterobacter cloacae and yeast but not albicans - Urinary cultures 10/20/2024 yeast but not Ilda albicans and recent 1 on 11/16 urine culture showed VRE - Blood culture, 10/09/2024, 10/19/2024: No growth - Echocardiogram, 10/07/2024: LVEF 15-20%, dilated LV, global dysfunction, moderate MR - RICHIE, 10/08/2024: Left ventricle: Dilated LV was seen. LVEF was 25%. There was diffuse hypokinesis of left ventricle. RV mildly dilated, LA & RA enlarged, mode MR and MS but no vegetations. Mode aortic insufficiency - extubation as per pulmonology and primary team - defer to primary and cement finisher team for management - keep maps above 65 - f/u on blood and urine culture results - discontinued antibiotics Plan discussed with the Dr. Gaurav Eaton and RN Plan discussed with: Patient Dietary Evaluation Review Comments: 1) TF Jevity 1.2Cal @ 55 ml/hr. x 24hr along with Pro-stat 1 pk daily. Start @ 20ml/hr, increase 10ml/hr Q4H until goal is reached. TF @ goal volume provides 1684 kcal (100% energy needs), 88 gm protein (100% protein needs), 1065 ml free water. 2) Water flush 100ml Q4H if allowed, adjust PRN 3) Advance to cardiac diet as medically feasible 4) Monitor NPO status, lab values, wt trend, I/O Expected Outcomes/Goals: To meet >75% estimated needs within 7 days Lab values to improve Fu 2-3 days JANETTE BURNHAM RESIDENT Nov 27, 2024 19:07
--- NOTE | 2024-11-27 21:41 | DVHPN2 ---
Subjective DOS: 11/27/2024 Patient seen and examined at bedside. Currently breathing on room air Overnight events reviewed Changes from previous H/P or p: No Changes Objective Vitals Vital Signs Date Time Temp Pulse Resp B/P (MAP) Pulse Ox O2 Delivery O2 Flow Rate FiO2 11/27/24 21:00 98.1 72 17 99/46 (63) 94 98.1 11/27/24 18:00 Room Air* 0 21 Intake/Output Intake and Output 11/27/24 07:00 Intake Total 1022 ml Output Total 2300 ml Balance -1278 ml Tube Feeding 892 ml Other 130 ml Output Urine Total 2300 ml # Bowel Movements 4 Exam Gen.: Patient lying in bed in no apparent distress. On room air. Head: Normocephalic, atraumatic. Eyes: EOMI/PERRLA. Ears: Normal hearing. Normal anatomy. Neck/trachea: Trachea midline, supple. Nose: Normal external anatomy. Mouth: Moist mucous membranes. Chest: Decreased air entry bilaterally. No wheezing or rhonchi. Cardiovascular: Positive S1, positive S2. Regular rate and rhythm. Abdomen: Positive bowel sounds in all 4 quadrants. Soft, non-tender, non- distended. : Deferred. Rectal: Deferred. Skin: Warm, dry. Intact. Extremities: 2+ radial pulses bilaterally. No lower extremity edema. Neuro: Awake, alert, oriented x1. No gross motor or sensory deficits. Cranial nerves II through XII intact. Gait not assessed. Medications Current Medications Medications Dose Ordered Sig/Liliam Route Start Time Stop Time Status Last Admin Dose Admin Amino Acids 0 ml @ 0 mls/hr PER PHARMACY IV 10/15/24 18:45 Cancel Dextrose 50 ml UD IV 10/16/24 09:30 Cancel Vancomycin HCl 0 ml @ 0 mls/hr UD IV 10/19/24 14:00 Cancel Metoprolol Tartrate 2.5 mg Q6HPRN PRN IV 10/31/24 09:15 Amino Acids 0 ml @ 0 mls/hr PER PHARMACY IV 11/04/24 22:00 Cancel Amino Acid Protein 30 ml DAILY PO 11/04/24 10:00 11/27/24 10:00 30 ML Pantoprazole Sodium 40 mg BID IV 11/09/24 22:00 11/27/24 10:33 40 MG Mexiletine HCl 150 mg TID GT 11/10/24 22:00 11/27/24 13:44 150 MG Fat Emulsion Intravenous 150 ml/Sodium Acetate 20 meq/Potassium Acetate 30 meq/ Potassium Phosphate 19.8 meq/Calcium Gluconate 2.3 meq/ Magnesium Sulfate 4 meq/ Multivitamins 10 ml/Chromium/ Copper/Manganese/ Zinc 1 ml/Amino Acids/Dextrose/ Purified Water 1,596.4462 ml @ 66 mls/hr [id number] IV 11/11/24 22:00 11/12/24 21:59 Cancel Furosemide 40 mg BIDD IV 11/14/24 18:00 11/27/24 17:45 40 MG Acetaminophen 650 mg Q4HR PRN GT 11/17/24 08:30 11/22/24 07:10 650 MG Potassium Bicarbonate 50 meq BID PEG 11/18/24 22:00 11/27/24 10:33 50 MEQ Enteral Nutritional Formula 1,000 ml 55ML/HR GT 11/19/24 15:00 11/27/24 20:46 1,000 ML Lorazepam 1 mg ONCE PRN IV 11/20/24 10:30 Apixaban 2.5 mg BID PEG 11/26/24 22:00 11/27/24 10:33 2.5 MG Laboratory Results Laboratory Tests 11/27/24 09:50 Chemistry Test 11/27/24 09:50 Calcium Level 8.2 mg/dL (8.7-10.4) L Magnesium Level 1.9 mg/dL (1.6-2.6) Urinalysis Test 10/09/24 22:25 11/15/24 04:00 Urine Creatinine 31.20 mg/dL (30.0-125.0) Urine Protein/Creatinine Ratio 0.72 Urine Sodium 79 mmol/L (40-220) Urine Total Protein 22.5 mg/dL (1-14) H Urine Color Yellow (Yellow) Urine Clarity Turbid (Clear) H Urine pH 5.0 (5.0-9.0) Urine Specific [employer] 1.012 (1.001-1.035) Urine Protein Trace (Negative) H Urine Ketones Negative (Negative) Urine Blood 2+ /uL (Negative) H Urine Nitrite Negative (Negative) Urine Bilirubin Negative (Negative) Urine Urobilinogen Normal mg/dL (Negative) Urine Leukocyte Esterase 1+ /uL (Negative) Urine RBC 3 /hpf (0 - 4) Urine Microscopic WBC 14 /HPF (0-5) H Urine Squamous Epithelial Cells Few /hpf (<5) Urine Calcium Oxalate Crystals Few (None Seen) Urine Amorphous Crystals Few /hpf (None Seen) Urine Bacteria Few /hpf (None Seen) H Urine Hyaline Casts Mod /lpf (0 - 2) Urine Mucus Few (None Seen) Urine Glucose Normal mg/dL (Normal) Microbiology Microbiology Date/Time Source Procedure Growth Status 11/16/24 04:50 Urine - [place] Urine Culture - Final Enterococcus faecium - VRE Complete 11/14/24 11:50 Sputum Endotracheal Wash Gram Stain - Final Complete 11/14/24 11:50 Sputum Endotracheal Wash Respiratory Culture - Final Complete 11/14/24 08:50 Blood Blood Culture - Final NO GROWTH AFTER 5 DAYS OF INCUBATION. Complete 11/14/24 04:30 Nose MRSA Screen - Final Complete Assessment/Plan Assessment/Plan Impression: Acute hypoxic respiratory failure S/p cardiac arrest Ventricular tachycardia CPR <5 min Elevated troponin Atelectasis Anemia Events: Patient is breathing comfortably on room air. Supplemental oxygen PRN. Improved O2 requirements Head of bed elevation Aspiration precautions Tube feeds via PEG for nutrition. Remains off pressors, hemodynamically stable. Follow up Cardiology recommendations Diurese w/ Lasix as tolerated Monitor renal function. Monitor electrolytes. Supplement as necessary. Monitor ins and outs. Avoid volume overload. Potassium, Magnesium supplementation Protonix BID for GI prophylaxis Monitor hemoglobin Continue Eliquis BID. Plan for LTAC when bed available. Disposition per hospitalist Labs and imaging reviewed. Plan: S/p extubation on 11/26/24 Supplemental oxygen PRN Titrate to keep O2 sats above 92%. Completed antibiotics. F/u cultures. Completed steroids Pressors as necessary for hemodynamic support. Titrate to keep MAP greater than 65 mmHg. Monitor hemoglobin Accu-Cheks, ISS PRN. Monitor labs Monitor renal function. Maintain euvolemia Monitor electrolytes. Supplement as necessary. Monitor ins and outs. Maintain euvolemia Cardiology recommendations appreciated. On Protonix twice daily GI/DVT prophylaxis. On Eliquis twice daily. Prognosis: Poor given patient's multiple co-morbidities. Condition: Critical Rest of plan per hospitalist and other consultants. A total of 35 minutes of critical care time was spent reviewing the patient record, examining the patient, making a diagnostic and therapeutic plan, discussing this plan with the medical personnel, following up on diagnostic studies and following the patient for clinical stability excluding any and all procedures. At least 50% of this time was spent in direct, [id number] contact. Thank you, YURI Gomez, for allowing me to participate in this patient's care. Further recommendations will depend on the patient's clinical course. Please do not hesitate to contact me if you have any questions or concerns. This medical document was created using an electronic medical record system with [employer] dictation system. Although these documentations are being carefully reviewed, there may still be some phonetic and typographical changes. The errors are purely typographical, due to imperfection on the software program, and do not reflect any compromise in the patient's medical care. Plan discussed with: Patient, Other (CEE Wade) Visit Coding Pulmonary Billing Provider: KENNY FROST MD Date of Service if different f: Nov 27, 2024 Common Visit Codes: 49679-[id number] INP/OBS CARE(HIGH), 51703-[id number] CARE 30-74 MIN KENNY FROST MD Nov 27, 2024 21:41
[2024-11-28] VITALS (15 sets, daily range): BP systolic 89–100; BP diastolic 42–55; PULSE 75–92; RESP 14–18; TEMP 97–98.7; O2SAT 93–99
--- NOTE | 2024-11-28 07:34 | DVHPN2 ---
Progress Note - Dictate Date Seen: Nov 28, 2024 Has the PT tested + for MRSA If YES, has PT been informed?: No Medical Necessity Reason Pt with a Central, PICC or Fol: No The following are medically ne: PICC Line, Cutler Catheter Reason for cutler catheter: Strict I&O vital signs Vital Sign Date Time Temp Pulse Resp B/P (MAP) Pulse Ox O2 Delivery O2 Flow Rate FiO2 11/28/24 05:18 100/42 11/28/24 05:01 98.6 86 17 96 98.6 11/27/24 20:00 Room Air* 0 21 Total Intake and Output 11/27/24 11/27/24 11/28/24 15:00 23:00 07:00 Intake Total 100 ml 685 ml Output Total 1250 ml Balance 100 ml -565 ml medications Current Medications Medications Dose Ordered Sig/Liliam Route Start Time Stop Time Status Last Admin Dose Admin Amino Acids 0 ml @ 0 mls/hr PER PHARMACY IV 10/15/24 18:45 Cancel Dextrose 50 ml UD IV 10/16/24 09:30 Cancel Vancomycin HCl 0 ml @ 0 mls/hr UD IV 10/19/24 14:00 Cancel Metoprolol Tartrate 2.5 mg Q6HPRN PRN IV 10/31/24 09:15 Amino Acids 0 ml @ 0 mls/hr PER PHARMACY IV 11/04/24 22:00 Cancel Amino Acid Protein 30 ml DAILY PO 11/04/24 10:00 11/27/24 10:00 30 ML Pantoprazole Sodium 40 mg BID IV 11/09/24 22:00 11/27/24 21:52 40 MG Mexiletine HCl 150 mg TID GT 11/10/24 22:00 11/28/24 05:18 150 MG Fat Emulsion Intravenous 150 ml/Sodium Acetate 20 meq/Potassium Acetate 30 meq/ Potassium Phosphate 19.8 meq/Calcium Gluconate 2.3 meq/ Magnesium Sulfate 4 meq/ Multivitamins 10 ml/Chromium/ Copper/Manganese/ Zinc 1 ml/Amino Acids/Dextrose/ Purified Water 1,596.4462 ml @ 66 mls/hr [id number] IV 11/11/24 22:00 11/12/24 21:59 Cancel Furosemide 40 mg BIDD IV 11/14/24 18:00 11/28/24 05:18 40 MG Acetaminophen 650 mg Q4HR PRN GT 11/17/24 08:30 11/22/24 07:10 650 MG Potassium Bicarbonate 50 meq BID PEG 11/18/24 22:00 11/27/24 21:52 50 MEQ Enteral Nutritional Formula 1,000 ml 55ML/HR GT 11/19/24 15:00 11/27/24 20:46 1,000 ML Lorazepam 1 mg ONCE PRN IV 11/20/24 10:30 Apixaban 2.5 mg BID PEG 11/26/24 22:00 11/27/24 21:53 2.5 MG laboratory and microbiology Laboratory Tests 11/27/24 09:50 Test 11/27/24 09:50 Range/Units Serum Glucose 116 H 74-106 mg/dL Assessment/Plan Transferred to Tele floor Alert, NAD Patient is a 54-year-old female who was brought to the hospital for witnessed syncope. She is intubated and is being managed in ICU. Information was obtained by reviewing the chart and communicating with patient's son (over the phone). Family recognized witnessed syncope and started CPR and called EMS. Reportedly, EMS found the patient in ventricular fibrillation and shocked the patient and brought the patient to the hospital. Patient was intubated in emergency room and transferred to ICU. Patient was on amiodarone drip. Later the patient had ventricular tachycardia (Systane). High sensitive troponin had been minimally/flatly elevated. Presentation was not in favor of acute coronary syndrome. Cardiology is involved for cardiac aspects of care. NAD No JVD. Mucosa pale. No carotid bruit. Scattered rhonchi in the lungs is heard. Cardiac: Regular, no thrill. Systolic murmur 2/6 in apex is heard. Abdomen is soft. 3+ edema in extremities. Past medical history as per son: Congenital heart disease, status post bypass WBC: 14.5 - 11.9 - 18.8 - 20.0 - 21.2 - 14.3 - 10.3 - 8.9 - 9.2 - 11.1 - 12.1 - 10.8 - 12.0 - 9.9 - 15.4 - 14.8 - 12.1 - 10.5 - 5.8 - 5.3 - 4.2 - 5.8 - 4.1 - 7.0 - 9.3 - 8.3 - 11.5 - 8.4 - 8.4 - 5.4 - 5.7 - 8.4 - 7.4 - 6.2 - 6.7 - 13.9 - 11.7 - 10.1 - 8.8 - 10.7 - 13.9 - 10.6 - 11.5 - 9.6 - 7.4 - 4.7 - 4.9 - 3.3 - 4.1 Hemoglobin: 10.1 - 9.6 - 9.2 - 8.8 - 8.7 - 8.0 - 8.3 - 8.5 - 7.8 - 10.2 - 10.7 - 9.9 - 9.7 - 9.3 - 9.3 - 8.6 - 8.1 - 7.4 - 7.5 - 7.4 - 7.5 - 7.2 - 7.7 - 7.0 - (post PRBC transfusion) 10.4 - 10 - 9.5 - 10.0 - 9.2 - 9.8 -9.6 - 9.7 - 10.2 - 10.6 - 9.7 - 9.7 - 10.5 - 10.0 - 11.4 - 10.8 - 12.4 - 12.7 - 13.3 - 12.3 - 12.0 - 11.6 - 11.7 - 10.9 - 9.8 - 10.9 Creatinine: 0.95 - 0.93 - 0.87 - 0.83 - 0.83 - 0.76 - 0.68 - 0.72 - 0.79 - 0.76 - 0.80 - 0.84 - 0.61 - 0.65 - 0.74 - 0.64 - 0.73 - 0.82 - 0.88 - 1.03 - 0.99 - 0.85 - 0.87 - 0.79 - 1.12 - 1.15 - 1.04 - 0.96 - 0.94 - 0.93 - 0.78 - 0.71 - 0.68 - 0.61 - 0.59 - 0.49 - 0.39 - 0.54 - 0.48 - 0.76 - 0.93 - 0.78 - 0 078 - 0.68 - 0.70 - 0.56 -0.64 - 0.63 - 0.63 - 0.57 - 0.48 - 0.52 - 0.41 - 0.47 - 0.43 Potassium: 3.4 - 4.0 - 4.6 - 3.5 - 3.3 - 4.1 - 3.7 - 3.2 - 3.7 - 4.0 - 3.2 - 3.4 - 3.9 - 4.2 - 3.3 - 3.8 - 3.6 - 3.4 - 4.2 - 3.8 - 4.5 - 4.1 - 3.5 - 4.2 - 3.3 - 2.6 - 3.5 - 3.8 - 2.4 - 2.9 - 4.6 - 2.8 - 4.8 - 4.9 - 3.4 - 3.1 - 3.7 - 4.4 - 3.7 - 3.7 - 3.1 - 3.0 - 3.8 - 4.4 - 3.8 - 4.1 - 4.3 - 3.9 - 4.4 - 6.1 - 4.6 - 3.0 - 3.6 - 3.1 - 2.1 - 4.6 - 2.5 - 3.1 - 4.4 - 4.9 - 4.9 - 4.3 - 3.8 - 4.9 - 4.4 - 4.5 - 4.1 Magnesium: 2.0 - 1.6 - 2.0 - 3.0 - 1.5 - 1.9 - 2.1 - 1.8 - 2.0 - 1.9 - 1.9 - 2.6 - 2.0 - 1.8 - 1.6 - 2.0 - 2.2 - 1.9 - 2.3 - 2.2 - 2.2 - 2.1 - 2.1 - 1.9 2.7 - 2.6 - 2.3 - 2.4 - 2.5 - 2.3 - 2.5 - 2.3 - 2.3 - 2.4 - 2.1 - 1.9 - 2.2 - 2.1 - 2.0 - 2.4 - 2.2 - 2.0 - 2.0 - 1.6 - 2.0 - 2.0 - 2.0 - 2.1 - 1.9 Troponin (high sensitive): 141 - 138 - 117 BNP: 457.16 - 1073.91 - 928.14 AST/ALT: 32/11 - 19/13 - 538/168 - 293/152 - 131/130 - 78/94 - 68/74 - 48/57 - 27/38 - 15/23 - 20/18 - 23/17 - 29/16 - 27/13 - 34/17 - 73/49 - 41/43 - 30/47 - 30/42 - 29/42 - 17/27 - 160/87 - 900/478 - 986/571 - 382/436 - 110/244 - 42/170 - 22/113 - 16/77 - 15/59 - 19/50 - 20/41 - 16/32 - 17/30 - 14/25 - 25/38 - - /2337 - >6000/>6000 - 4665/>6000 - 2123/>6000 - 604/4207 - 203/2809 - 131/1787 - 64/898 - 52/456 - 55/388 - 43/291 - 43/239 Digoxin level: 2.83 - 1.25 - 0.98 UDS: non-revealing Chest x-ray revealed: Lines and Tubes: Endotracheal tube tip projects approximately 1.4 cm above the level of the tyler. Enteric catheter courses below the lateral of the diaphragm and terminates beyond the inferior margin of the image. Right internal jugular central venous catheter terminates within the distal superior vena cava. Lungs: Moderate diffuse increased prominence of the pulmonary vasculature without evidence of focal consolidation. Pleura: No effusion. No pneumothorax. Cardiomediastinal contours: Cardiomegaly. Bones: Unremarkable IMPRESSION: 1. Cardiomegaly and diffuse increased prominence of the pulmonary vasculature. 2. Lines and tubes as above. Repeat chest x-ray revealed: IMPRESSION: 1. Endotracheal tube tip 1.6 cm above the tyler; consider 2 cm retraction 2. Mild pulmonary vascular congestion. Moderate cardiomegaly. Repeat chest xry revealed: IMPRESSION: Endotracheal tube tip 1.6 cm above the tyler; consider 2 cm retraction Mild pulmonary vascular congestion. Moderate cardiomegaly. Repeat chest xry revealed: IMPRESSION: 1. Stable cardiomegaly, small left pleural effusion and mild diffuse increased prominence of the pulmonary vasculature. 2. Repositioned endotracheal tube as above. Remaining lines and tubes unchanged. Repeat chest xry revealed: IMPRESSION: 1. Cardiomegaly, stable diffuse increased prominence of the pulmonary vasculature and small bilateral pleural effusions. 2. Slight interval advancement of endotracheal tube as above. Remaining lines and tubes unchanged. Repeat chest xry revealed: IMPRESSION: 1. Slight interval decrease in diffuse increased prominence of the pulmonary vasculature. 2. Stable cardiomegaly and small left pleural effusion. 3. Lines and tubes unchanged. Repeat chest xry revealed: IMPRESSION: 1. Cardiomegaly and small left pleural effusion. 2. Lines and tubes unchanged. Repeat chest xry revealed: IMPRESSION: Stable lines and tubes. Similar lung aeration. Repeat chest xry revealed: IMPRESSION: Cardiomegaly and small left pleural effusion. Lines and tubes unchanged. Repeat chest xry revealed: IMPRESSION: Placement of a cardiac pacer, no pneumothorax is seen. Stable lines and tubes. Repeat chest xry revealed: IMPRESSION: 1. Worsening mixed opacities in the right lower lung. No other significant change from the previous study. Stable support devices. Repeat chest xry revealed: Heart is prominent in size with postsurgical changes, median sternotomy wires, and a single lead left cardiac defibrillator. Support lines and tubes appear unchanged in satisfactory in position. No sizable effusion or pneumothorax. Mild pulmonary vascular congestion. No significant interval change. Repeat chest xry revealed: IMPRESSION: 1. No significant change from the previous study. Stable support devices. Similar findings of heart failure including left pleural effusion. Repeat chest xry revealed: IMPRESSION: 1. No significant change from the previous study. Stable support devices. Similar findings of heart failure including trace left pleural effusion. Repeat chest xry revealed: Lines and Tubes: Unchanged. Left anterior chest wall cardiac pacing device. Lungs: Clear Pleura: No effusion. No pneumothorax. Cardiomediastinal contours: Cardiomegaly. Bones: Unremarkable IMPRESSION: 1. Cardiomegaly. 2. Lines and tubes unchanged. Repeat chest xry revealed: IMPRESSION: Lines and tubes in satisfactory position. No significant interval change. Repeat chest xry revealed: Lines and Tubes: ET tube and NG tube removed. Lungs: Congestion Pleura: No effusion. No pneumothorax. Cardiomediastinal contours: Cardiomegaly Bones: Unremarkable IMPRESSION: 1. Cardiomegaly with CHF. Repeat chest xry revealed: IMPRESSION: 1. Cardiomegaly. 2. Patchy bilateral airspace disease. Repeat chest xry revealed: FINDINGS: Lines and Tubes: None. Left anterior chest wall cardiac pacing device. Lungs: Extensive multifocal bilateral pulmonary airspace disease in a predominantly perihilar and bibasilar distribution with consolidative features. Pleura: No effusion. No pneumothorax. Cardiomediastinal contours: Poorly evaluated secondary to extensive bilateral infiltrate. Bones: Unremarkable IMPRESSION: 1. Extensive multifocal bilateral pulmonary airspace disease in a predominantly perihilar and bibasilar distribution with consolidative features. Repeat chest xry revealed: IMPRESSION: 1. Status post interval intubation. Endotracheal tube tip projects approximately 2.4 cm above the level of the tyler. 2. Grossly stable appearing moderate patchy multifocal bilateral pulmonary airspace disease with consolidative features. 3. Cardiomegaly. Repeat chest xry revealed: IMPRESSION: No significant interval change. Repeat chest xry revealed: IMPRESSION: No significant interval change Repeat chest xry revealed: IMPRESSION: 1. Interval retraction of the endotracheal tube such that the tip now projects approximately 4.5 cm above the level of the tyler. 2. Cardiomegaly. Repeat chest xry revealed: IMPRESSION: 1. Mild interval advancement of the endotracheal tube such that the tip now projects approximately 3.3 cm above the level of the tyler. 2. No evidence of acute cardiopulmonary process. Repeat chest xry revealed: IMPRESSION: Lines and tubes in satisfactory position. No significant interval change. Repeat chest xry revealed: IMPRESSION: 1. Interval advancement of endotracheal tube such that the tip now projects approximately 3.7 cm above the level of the tyler. Remaining lines and tubes unchanged. 2. Cardiomegaly. Repeat chest xry revealed: IMPRESSION: Unchanged pulmonary vascular congestion. Repeat chest xry revealed: IMPRESSION: No significant interval change. Repeat chest xry revealed: IMPRESSION: 1. Interval retraction of endotracheal tube such that the tip now projects approximately 4.5 cm above the level of the tyler. Remaining lines and tubes unchanged. 2. Cardiomegaly. Repeat chest xry revealed: IMPRESSION: 1. Appropriate position of the support lines and tubes. 2. No acute pulmonary disease. 3. Stable cardiomegaly. Gall Bladder Ultrasound revealed: IMPRESSION: Gallstones are noted. Hepatic steatosis Trace ascites Trace bilateral pleural effusions. Hepatic cirrhosis. Liver Ultrasound revealed: Hepatic steatosis. Trace right pleural effusion. Trace ascites Gallstones Bladder ultrasound revealed: IMPRESSION: 1. Cutler catheter in the bladder in the bladder is decompressed. Repeat Bladder Ultrasound revealed: Urinary bladder is unremarkable with prevoid volume of 29 mL. Urinary bladder wall measures 1.5 mm. Cutler catheter is noted. KUB revealed: IMPRESSION: Nonobstructive bowel gas pattern. Nasogastric tube tip in the stomach. Large stool burden. Repeat KUB revealed: Right lower extremity PICC line with tip projecting over the expected region of the intrahepatic IVC. Nasogastric tube projecting towards the distal stomach. Nonspecific bowel gas pattern. Cardiomegaly and left basilar airspace opacities, incompletely characterized. Atherosclerotic calcification disease. Repeat KUB revealed: IMPRESSION: 1. Nonspecific nonobstructive bowel gas pattern. 2. Gastrostomy tube projects over the midportion of the left hemiabdomen. 3. Right femoral approach central venous catheter as described above. Repeat KUB revealed: IMPRESSION: Nonobstructive bowel gas pattern. Right central venous catheter tip in the IVC Cutler catheter overlying the bladder. Left upper ext arterial duplex: IMPRESSION: No hemodynamically significant stenosis based on peak systolic velocity criteria. Left lower ext arterial duplex: IMPRESSION: There is no evidence for peripheral vascular insufficiency in the left lower extremity. No significant focal stenosis is identified. Liver Ultrasound revealed: Hepatic steatosis. Hepatomegaly. Cholelithiasis. CT of the head revealed: IMPRESSION: No acute intracranial abnormality. Repeat CT of head revealed: IMPRESSION: No acute intracranial abnormality. Repeat CT of Head revealed: IMPRESSION: No acute intracranial abnormality. Repeat CT of head revealed: IMPRESSION: 1. No acute intracranial abnormality. 2. No findings to suggest territorial ischemia. Echocardiogram reported: lvef 15-20% dilated LV severe global dysfunction mild RV dysfunction biatrial enlargement mild moderate MAC, moderate mitral regurg mild to moderate aortic regug (images of echo reviewed and questioned presence of mitral ring and also some component (moderate of Mitral stenosis) EKG revealed sinus rhythm Telemetry revealed occasions of atrial fibrillation. There was occasional sustained ventricular tachycardia. EMS tele monitor revealed ventricular fibrillation for which the patient was shocked. Has remained sinus rhythm. Later with A-fib with MVR LHC revealed: Patent RICHMOND to LAD; Patent SVG to obtuse marginal; LVEF of 20% with increased EDP; Proximal disease in LAD/LCX RICHIE was performed: Consistent with severely reduced LVEF. Consistent with previously implanted Mitral ring, Up to moderate Mitral stenosis/Mitral Regurgitation and also Moderate Aortic insufficiency. Patient is a 54-year-old female who presented with witnessed syncope. She was found to have ventricular fibrillation for which was shocked. Later had repeated episode of sustained ventricular tachycardia. Patient has been kept in ICU. Does have baseline history of coronary artery disease for which has had bypass surgery. Left heart catheterization was performed which revealed patent RICH[place]D and patent SVG. ACS is not considered at this point. It is of note that the patient's echocardiogram reveals significantly use systolic function. Valvular heart disease is considered. Findings are in favor of previously implanted mitral ring. By reviewing the echo images, component of up to moderate mitral stenosis could not be ruled out. LHC was performed that ruled out any active specific ischemia as an etiology for presentation. Is off Amiodarone for abnormal LFT. Being followed by Nephrology / Pulmonary / Neurology / GI ID. Tele has remained sinus rhythm. Had episode of a-fib with RVR. Was loaded with Digoxin. Dig level was performed at wrong timing (only 5 hours after the last Dig given). Dig toxicity is not considered. Patient is back to normal sinus rhythm. Has good kidney function. Repeat Dig level is acceptable level. s/p ICD implantation by EP. Intubated, later extubated. s/p PEG. Later had respiratory failure and was taken back to ICU. Imaging question pneumonia (can it be aspiration?). Eventhough repeat BNP has not increased (decreased somehow), patient does have peripheral edema and component of acute on chronic Systolic heart failure could also contribute to respiratory failure. The site of ICD implantation was reviewed by EP (Dr Armstrong on 05/13/2024): healing well (personal communication). Had repeat respiratory failure, back in ICU and intubated. Abnormal LFT. Found to have gall stone and Liver cirrhosis. Extubated and transferred back to tele floor Syncope V-fib s/p shock Sustained V-tach Paroxysmal A-fib VHD, s/p Mitral ring Systolic heart failure Abnormal LFT, at a point resolved, later appeared again s/p ICD (Biotronik) implantation by EP (Dr Armstrong) s/p PRBC transfusion for significant anemia Hepatic Steatosis Gallstones Failed Swallowing s/p PEG Acute respiratory failure Acute on chronic systolic heart failure Gallstone Liver cirrhosis s/p repeated intubation and extubations Cardiac suggestion for management: Manage in Tele IV diuresis Follow up electrolytes and kidney function test and correct abnormalities Full anticoagulation (a-fib with high CHADS-Vasc score). s/p ICD implantation. On Eliquis On Mexiletine Cardiac arenas, stable s/p ICD (Biotronik) implantation by EP Eliquis: 2.5 mg BID s/p PEG Pulmonary Follow up GI follow up Cardiac arenas (hemodynamically): stable Management of repeat respiratory failure, pneumonia as per primary team/pulmonary Provide previous medical records from reaching out to previous hospitals in [facility]... Further evaluation and management depends on the above and clinical course. A total of 75 minutes was spent reviewing the patient record, examining the patient, making a diagnostic and therapeutic plan, discussing this plan with medical personnel, following up on diagnostic studies and following the patient for clinical stability excluding any and all procedures. At least 50% of this time was spent in direct, [id number] contact. Thank you for allowing me to participate in this patient's care. Further recommendations will depend on patient's clinical course. Please do not hesitate to contact me if you have any questions or concerns. This medical document was created using electronic medical record system with [employer] computerized dictation system. Although this document has been carefully reviewed, there may still be some phonetic and typographical errors. These areas are purely typographical due to the imperfection of the software programs, and do not reflect any compromise in the patient's medical care. Dietary Evaluation Review Comments: 1) TF Jevity 1.2Cal @ 55 ml/hr. x 24hr along with Pro-stat 1 pk daily. Start @ 20ml/hr, increase 10ml/hr Q4H until goal is reached. TF @ goal volume provides 1684 kcal (100% energy needs), 88 gm protein (100% protein needs), 1065 ml free water. 2) Water flush 100ml Q4H if allowed, adjust PRN 3) Advance to cardiac diet as medically feasible 4) Monitor NPO status, lab values, wt trend, I/O Expected Outcomes/Goals: To meet >75% estimated needs within 7 days Lab values to improve Fu 2-3 days Plan discussed with: Other (nurse) CORDELL VERA MD Nov 28, 2024 07:34
--- NOTE | 2024-11-28 12:23 | DVHPN2 ---
Progress Note - Dictate Date Seen: Nov 28, 2024 Has the PT tested + for MRSA If YES, has PT been informed?: No Medical Necessity Reason Pt with a Central, PICC or Fol: No The following are medically ne: PICC Line, Cutler Catheter Reason for cutler catheter: Strict I&O vital signs Vital Sign Date Time Temp Pulse Resp B/P (MAP) Pulse Ox O2 Delivery O2 Flow Rate FiO2 11/28/24 05:18 100/42 11/28/24 05:01 98.6 86 17 96 98.6 11/27/24 20:00 Room Air* 0 21 Total Intake and Output 11/27/24 11/27/24 11/28/24 14:59 22:59 06:59 Intake Total 100 ml 685 ml 0 ml Output Total 1250 ml Balance 100 ml -565 ml 0 ml medications Current Medications Medications Dose Ordered Sig/Liliam Route Start Time Stop Time Status Last Admin Dose Admin Amino Acids 0 ml @ 0 mls/hr PER PHARMACY IV 10/15/24 18:45 Cancel Dextrose 50 ml UD IV 10/16/24 09:30 Cancel Vancomycin HCl 0 ml @ 0 mls/hr UD IV 10/19/24 14:00 Cancel Metoprolol Tartrate 2.5 mg Q6HPRN PRN IV 10/31/24 09:15 Amino Acids 0 ml @ 0 mls/hr PER PHARMACY IV 11/04/24 22:00 Cancel Amino Acid Protein 30 ml DAILY PO 11/04/24 10:00 11/27/24 10:00 30 ML Pantoprazole Sodium 40 mg BID IV 11/09/24 22:00 11/28/24 09:31 40 MG Mexiletine HCl 150 mg TID GT 11/10/24 22:00 11/28/24 05:18 150 MG Fat Emulsion Intravenous 150 ml/Sodium Acetate 20 meq/Potassium Acetate 30 meq/ Potassium Phosphate 19.8 meq/Calcium Gluconate 2.3 meq/ Magnesium Sulfate 4 meq/ Multivitamins 10 ml/Chromium/ Copper/Manganese/ Zinc 1 ml/Amino Acids/Dextrose/ Purified Water 1,596.4462 ml @ 66 mls/hr [id number] IV 11/11/24 22:00 11/12/24 21:59 Cancel Furosemide 40 mg BIDD IV 11/14/24 18:00 11/28/24 05:18 40 MG Acetaminophen 650 mg Q4HR PRN GT 11/17/24 08:30 11/22/24 07:10 650 MG Potassium Bicarbonate 50 meq BID PEG 11/18/24 22:00 11/28/24 09:32 50 MEQ Enteral Nutritional Formula 1,000 ml 55ML/HR GT 11/19/24 15:00 11/27/24 20:46 1,000 ML Lorazepam 1 mg ONCE PRN IV 11/20/24 10:30 Apixaban 2.5 mg BID PEG 11/26/24 22:00 11/28/24 09:31 2.5 MG objective HEENT: EOMI, PERRLA, normal external inspect of ears, no icterus, no nasal drainage Neck: no carotid bruit, no jugular venous distention (JVD), no lymphadenopathy Chest: normal thorax Respiratory: Intubated, clear to auscultation, normal air movement Cardiovascular: regular rate and rhythm, no diastolic murmur, no jugular venous distention (JVD), no rub, no systolic murmur Abdominal: soft, no hepatomegaly, no mass, no splenomegaly, no tenderness Genitourinary: grossly normal external Musculoskeletal: no joint tenderness, no swelling Extremities: normal pulses, no calf tenderness, no clubbing, no cyanosis, no edema Skin: no bruising, no jaundice, no rash Neurological: No focal deficit laboratory and microbiology Laboratory Tests 11/27/24 09:50 Test 11/27/24 09:50 Range/Units Serum Glucose 116 H 74-106 mg/dL Problem List Cardiac Arrest with Ventricular Fibrillation Assessment: Patient experienced cardiac arrest with ventricular fibrillation on 10/07/24, witnessed by family members who initiated CPR. EMS found the patient in ventricular fibrillation and administered shock therapy. Rhythm strip analysis confirmed ventricular fibrillation. Patient required intubation and sedation upon ED arrival. Currently admitted to ICU for close observation. Cardiology has been consulted and plans for AICD placement, likely on Tuesday. Infectious disease clearance has been obtained for the AICD procedure, addressing initial concerns of leukocytosis which is now improving. Status post-cardiac arrest. Plan: - Continue ICU monitoring - Proceed with AICD placement as planned (likely Tuesday), cleared by infectious disease. - Maintain intubation and sedation until AICD placement - Continue Heparin drip for paroxysmal atrial fibrillation - Continue Mexitil - DC amiodarone due to transaminitis - added esmolol drip per Cardiology for AFib and added push doses of digoxin Coronary Artery Disease Assessment: Patient with history of 2-vessel CABG (Coronary Artery Bypass Grafting). Surgical intervention previously performed to address significant coronary artery stenosis. Plan: - Continue medical management - Follow up with cardiology for ongoing coronary artery disease management Acute and Chronic Systolic Heart Failure Assessment: Patient has acute and chronic systolic heart failure with severely reduced left ventricular function. Ejection fraction is estimated at 15-20%. RICHIE findings are consistent with severely reduced left ventricular ejection fraction, previously implanted mitral ring, up to moderate mitral stenosis and regurgitation, and moderate aortic insufficiency. Plan: - Continue cardiology consultation - continue IV diuretics (IV Lasix) - Monitor renal function Acute Hypoxic Respiratory Failure Assessment: Patient is currently intubated due to acute hypoxic respiratory failure. Dr. Downey from pulmonology is managing this aspect of care. Plan: - Maintain current intubation as per pulmonology recommendation - Proceed with CPAP trials when deemed appropriate by pulmonology Transaminitis Assessment: Patient has elevated liver function tests, likely secondary to amiodarone use. Cardiology has discontinued amiodarone in response. Plan: - Monitor liver function tests - Amiodarone discontinued as per cardiology Enterobacter PNA Assessment: Sputum culture positive for Enterobacter. Plan: - Continue treatment with Eratapenem to complete 10 days regimen -Infectious disease consult Hemodynamic Support Assessment: Patient requires vasopressor support for hemodynamic stability. Plan: - Continue vasopressin - Continue neosynephrine Paroxysmal a fib -DC amiodarone -continue with heparin gtt Shock liver GI consult, trend liver enzymes, hepatitis panel was negative. Ultrasound of the liver had no acute findings. Assessment/Plan Subjective: Patient is awake and alert. Objective: Patient has a cough. Patient has a history of sepsis due to VRE in the urine and Enterobacter pneumonia. Patient was extubated for the second time from the ventilator. She was initially admitted for cardiac arrest. Patient is status post AICD placement and status post G-tube. Patient is high risk for aspiration. Plan: Restart breathing treatments. Continue physical therapy. DC planning to skilled rehab center. Dietary Evaluation Review Comments: 1) TF Jevity 1.2Cal @ 55 ml/hr. x 24hr along with Pro-stat 1 pk daily. Start @ 20ml/hr, increase 10ml/hr Q4H until goal is reached. TF @ goal volume provides 1684 kcal (100% energy needs), 88 gm protein (100% protein needs), 1065 ml free water. 2) Water flush 100ml Q4H if allowed, adjust PRN 3) Advance to cardiac diet as medically feasible 4) Monitor NPO status, lab values, wt trend, I/O Expected Outcomes/Goals: To meet >75% estimated needs within 7 days Lab values to improve Fu 2-3 days Plan discussed with: Patient, Other BRODIE GARVIN NP Nov 28, 2024 12:23
[2024-11-28] MEDS: ALBUTEROL SULF 2.5 MG/0.5ML(0.5%) NEB SOLN NEB SCH (14:21)
[2024-11-28] MEDS: IPRATROPIUM BROM 0.5 MG/2.5ML INH SOL NEB SCH (14:21)
--- NOTE | 2024-11-28 16:29 | DVHPN2 ---
Progress Note Date Seen: Nov 28, 2024 Resident Creating Document: ETHAN SWAN RESIDENT Has the PT tested + for MRSA If YES, has PT been informed?: No Medical Necessity Reason Pt with a Central, PICC or Fol: No The following are medically ne: PICC Line, Cutler Catheter Reason for cutler catheter: Strict I&O Subjective Review of Systems Patient seen and examined at bedside Improved mentation today Peg tube working appropriately at 55 cc with minimal residuals Objective vital signs Vital Sign Date Time Temp Pulse Resp B/P (MAP) Pulse Ox O2 Delivery O2 Flow Rate FiO2 11/28/24 14:29 81 16 98 11/28/24 14:21 Room Air 0.0 11/28/24 14:21 21 11/28/24 13:30 97.0 96/55 (69) 97.0 Total Intake and Output 11/27/24 11/27/24 11/28/24 15:00 23:00 07:00 Intake Total 100 ml 685 ml 0 ml Output Total 1250 ml Balance 100 ml -565 ml 0 ml medications Current Medications Medications Dose Ordered Sig/Liliam Route Start Time Stop Time Status Last Admin Dose Admin Amino Acids 0 ml @ 0 mls/hr PER PHARMACY IV 10/15/24 18:45 Cancel Dextrose 50 ml UD IV 10/16/24 09:30 Cancel Vancomycin HCl 0 ml @ 0 mls/hr UD IV 10/19/24 14:00 Cancel Metoprolol Tartrate 2.5 mg Q6HPRN PRN IV 10/31/24 09:15 Amino Acids 0 ml @ 0 mls/hr PER PHARMACY IV 11/04/24 22:00 Cancel Amino Acid Protein 30 ml DAILY PO 11/04/24 10:00 11/28/24 14:44 30 ML Pantoprazole Sodium 40 mg BID IV 11/09/24 22:00 11/28/24 09:31 40 MG Mexiletine HCl 150 mg TID GT 11/10/24 22:00 11/28/24 14:44 150 MG Fat Emulsion Intravenous 150 ml/Sodium Acetate 20 meq/Potassium Acetate 30 meq/ Potassium Phosphate 19.8 meq/Calcium Gluconate 2.3 meq/ Magnesium Sulfate 4 meq/ Multivitamins 10 ml/Chromium/ Copper/Manganese/ Zinc 1 ml/Amino Acids/Dextrose/ Purified Water 1,596.4462 ml @ 66 mls/hr [id number] IV 11/11/24 22:00 11/12/24 21:59 Cancel Furosemide 40 mg BIDD IV 11/14/24 18:00 11/28/24 05:18 40 MG Acetaminophen 650 mg Q4HR PRN GT 11/17/24 08:30 11/22/24 07:10 650 MG Potassium Bicarbonate 50 meq BID PEG 11/18/24 22:00 11/28/24 09:32 50 MEQ Enteral Nutritional Formula 1,000 ml 55ML/HR GT 11/19/24 15:00 11/27/24 20:46 1,000 ML Lorazepam 1 mg ONCE PRN IV 11/20/24 10:30 Apixaban 2.5 mg BID PEG 11/26/24 22:00 11/28/24 09:31 2.5 MG Albuterol 2.5 mg Q4HWA [place] 11/28/24 14:00 11/28/24 14:21 2.5 MG Ipratropium [place] 0.5 mg Q4HWA [place] 11/28/24 14:00 11/28/24 14:21 0.5 MG Examination General Appearance: Somnolent Head Exam: Normal inspection. Constricted equal and reactive pupils Neck Exam: Normal inspection. Non-tender. Normal alignment Pulmonary/Respiratory: Chest non-tender. Trace crackles Abdominal Exam: Normal bowel sounds. Soft. Nontender Skin Exam: Normal inspection. Normal color. Warm. Dry laboratory and microbiology Laboratory Tests 11/27/24 09:50 Test 11/27/24 09:50 Range/Units Serum Glucose 116 H 74-106 mg/dL Microbiology Date/Time Source Procedure Growth Status 11/16/24 04:50 Urine - [place] Urine Culture - Final Enterococcus faecium - VRE Complete 11/14/24 11:50 Sputum Endotracheal Wash Gram Stain - Final Complete 11/14/24 11:50 Sputum Endotracheal Wash Respiratory Culture - Final Complete 11/14/24 08:50 Blood Blood Culture - Final NO GROWTH AFTER 5 DAYS OF INCUBATION. Complete 11/14/24 04:30 Nose MRSA Screen - Final Complete Labs and/or images reviewed: Labs reviewed by me, Image(s) reviewed by me Problem List/Assessment/Plan Problem List/Assessment/Plan Acute hepatocellular injury likely shock liver Hepatic cirrhosis? Coagulopathy due to above Ventricular fibrillation S/p cardiopulmonary arrest with shock Heart failure with reduced ejection fraction 15-20% Metabolic versus hypoxic encephalopathy Cholelithiasis without acute inflammation Nonalcoholic fatty liver disease with steatohepatitis Community-acquired pneumonia growing Enterobacter Aspiration pnemonia? sepsis Plan: S/p extubation Discontinued free water continue antibiotics consider MRCP once stable Tapered hydrocortisone to q.12 hours on 11/06/2024 Tapered hydrocortisone to once daily on 11/13/2024 Discontinued hydrocortisone on 11/20/2024 s/p PEG tube placement monitor LFT's Keep PT/INR therapeutic Hemoglobin stable, transfuse if HB 7 or less Continue tube feedings at 55cc/hr Discontinued metoclopramide JAIDEN positive, outpatient follow up with GI recommended for further workup Discharge planning to detention facility recommended Thank you so much for the opportunity to consult on your patient. GI team will follow the patient. In case of any questions or concerns please feel free to reach out. Plan discussed with Dr. Anglin Plan discussed with: Other (RN) Dietary Evaluation Review Comments: 1) TF Jevity 1.2Cal @ 55 ml/hr. x 24hr along with Pro-stat 1 pk daily. Start @ 20ml/hr, increase 10ml/hr Q4H until goal is reached. TF @ goal volume provides 1684 kcal (100% energy needs), 88 gm protein (100% protein needs), 1065 ml free water. 2) Water flush 100ml Q4H if allowed, adjust PRN 3) Advance to cardiac diet as medically feasible 4) Monitor NPO status, lab values, wt trend, I/O Expected Outcomes/Goals: To meet >75% estimated needs within 7 days Lab values to improve Fu 2-3 days ETHAN SWAN RESIDENT Nov 28, 2024 16:29
--- NOTE | 2024-11-28 21:14 | DVHPN2 ---
Subjective DOS: 11/28/2024 Patient seen and examined at bedside. Currently breathing on room air Overnight events reviewed Changes from previous H/P or p: No Changes Objective Vitals Vital Signs Date Time Temp Pulse Resp B/P (MAP) Pulse Ox O2 Delivery O2 Flow Rate FiO2 11/28/24 20:45 98.7 87 18 89/43 (58) 93 98.7 11/28/24 19:20 Room Air 0.0 11/28/24 19:20 21 Intake/Output Intake and Output 11/28/24 07:00 Intake Total 785 ml Output Total 1250 ml Balance -465 ml Intake Oral 0 ml IV Total 200 ml Tube Feeding 445 ml Other 140 ml Output Urine Total 1250 ml # Bowel Movements 2 Exam Gen.: Patient lying in bed in no apparent distress. On room air. Head: Normocephalic, atraumatic. Eyes: EOMI/PERRLA. Ears: Normal hearing. Normal anatomy. Neck/trachea: Trachea midline, supple. Nose: Normal external anatomy. Mouth: Moist mucous membranes. Chest: Decreased air entry bilaterally. No wheezing or rhonchi. Cardiovascular: Positive S1, positive S2. Regular rate and rhythm. Abdomen: Positive bowel sounds in all 4 quadrants. Soft, non-tender, non- distended. : Deferred. Rectal: Deferred. Skin: Warm, dry. Intact. Extremities: 2+ radial pulses bilaterally. No lower extremity edema. Neuro: Awake, alert, oriented x1. No gross motor or sensory deficits. Cranial nerves II through XII intact. Gait not assessed. Medications Current Medications Medications Dose Ordered Sig/Liliam Route Start Time Stop Time Status Last Admin Dose Admin Amino Acids 0 ml @ 0 mls/hr PER PHARMACY IV 10/15/24 18:45 Cancel Dextrose 50 ml UD IV 10/16/24 09:30 Cancel Vancomycin HCl 0 ml @ 0 mls/hr UD IV 10/19/24 14:00 Cancel Metoprolol Tartrate 2.5 mg Q6HPRN PRN IV 10/31/24 09:15 Amino Acids 0 ml @ 0 mls/hr PER PHARMACY IV 11/04/24 22:00 Cancel Amino Acid Protein 30 ml DAILY PO 11/04/24 10:00 11/28/24 14:44 30 ML Pantoprazole Sodium 40 mg BID IV 11/09/24 22:00 11/28/24 09:31 40 MG Mexiletine HCl 150 mg TID GT 11/10/24 22:00 11/28/24 14:44 150 MG Fat Emulsion Intravenous 150 ml/Sodium Acetate 20 meq/Potassium Acetate 30 meq/ Potassium Phosphate 19.8 meq/Calcium Gluconate 2.3 meq/ Magnesium Sulfate 4 meq/ Multivitamins 10 ml/Chromium/ Copper/Manganese/ Zinc 1 ml/Amino Acids/Dextrose/ Purified Water 1,596.4462 ml @ 66 mls/hr [id number] IV 11/11/24 22:00 11/12/24 21:59 Cancel Furosemide 40 mg BIDD IV 11/14/24 18:00 11/28/24 05:18 40 MG Acetaminophen 650 mg Q4HR PRN GT 11/17/24 08:30 11/22/24 07:10 650 MG Potassium Bicarbonate 50 meq BID PEG 11/18/24 22:00 11/28/24 09:32 50 MEQ Enteral Nutritional Formula 1,000 ml 55ML/HR GT 11/19/24 15:00 11/27/24 20:46 1,000 ML Lorazepam 1 mg ONCE PRN IV 11/20/24 10:30 Apixaban 2.5 mg BID PEG 11/26/24 22:00 11/28/24 09:31 2.5 MG Albuterol 2.5 mg Q4HWA NEB 11/28/24 14:00 11/28/24 19:23 2.5 MG Ipratropium [place] 0.5 mg Q4HWA NEB 11/28/24 14:00 11/28/24 19:23 0.5 MG Laboratory Results Laboratory Tests 11/27/24 09:50 Urinalysis Test 10/09/24 22:25 11/15/24 04:00 Urine Creatinine 31.20 mg/dL (30.0-125.0) Urine Protein/Creatinine Ratio 0.72 Urine Sodium 79 mmol/L (40-220) Urine Total Protein 22.5 mg/dL (1-14) H Urine Color Yellow (Yellow) Urine Clarity Turbid (Clear) H Urine pH 5.0 (5.0-9.0) Urine Specific [place] 1.012 (1.001-1.035) Urine Protein Trace (Negative) H Urine Ketones Negative (Negative) Urine Blood 2+ /uL (Negative) H Urine Nitrite Negative (Negative) Urine Bilirubin Negative (Negative) Urine Urobilinogen Normal mg/dL (Negative) Urine Leukocyte Esterase 1+ /uL (Negative) Urine RBC 3 /hpf (0 - 4) Urine Microscopic WBC 14 /HPF (0-5) H Urine Squamous Epithelial Cells Few /hpf (<5) Urine Calcium Oxalate Crystals Few (None Seen) Urine Amorphous Crystals Few /hpf (None Seen) Urine Bacteria Few /hpf (None Seen) H Urine Hyaline Casts Mod /lpf (0 - 2) Urine Mucus Few (None Seen) Urine Glucose Normal mg/dL (Normal) Microbiology Microbiology Date/Time Source Procedure Growth Status 11/16/24 04:50 Urine - [place] Urine Culture - Final Enterococcus faecium - VRE Complete 11/14/24 11:50 Sputum Endotracheal Wash Gram Stain - Final Complete 11/14/24 11:50 Sputum Endotracheal Wash Respiratory Culture - Final Complete 11/14/24 08:50 Blood Blood Culture - Final NO GROWTH AFTER 5 DAYS OF INCUBATION. Complete 11/14/24 04:30 Nose MRSA Screen - Final Complete Assessment/Plan Assessment/Plan Impression: Acute hypoxic respiratory failure S/p cardiac arrest Ventricular tachycardia CPR <5 min Elevated troponin Atelectasis Anemia Events: Remains on room air. Supplemental oxygen PRN. No distress. Improved mentation Patient failed swallow evaluation Continue head of bed elevation Aspiration precautions Tube feeds via PEG for nutrition. Remains off pressors, hemodynamically stable. Continue antibiotics Cardiology recommendations appreciated. Diurese w/ Lasix as tolerated Monitor renal function. Monitor electrolytes. Supplement as necessary. Monitor ins and outs. Avoid volume overload. Potassium supplementation Protonix BID for GI prophylaxis Monitor hemoglobin Continue Eliquis BID. Plan for LTAC when bed available. Disposition per hospitalist Labs and imaging reviewed. Plan: S/p extubation on 11/26/24 Supplemental oxygen PRN Titrate to keep O2 sats above 92%. Continue antibiotics. F/u cultures. Completed steroids Pressors as necessary for hemodynamic support. Titrate to keep MAP greater than 65 mmHg. Monitor hemoglobin Accu-Cheks, ISS PRN. Monitor labs Monitor renal function. Maintain euvolemia Monitor electrolytes. Supplement as necessary. Monitor ins and outs. Maintain euvolemia Cardiology recommendations appreciated. On Protonix twice daily GI/DVT prophylaxis. On Eliquis twice daily. Prognosis: Poor given patient's multiple co-morbidities. Rest of plan per hospitalist and other consultants. Thank you, YURI Gomez, for allowing me to participate in this patient's care. Further recommendations will depend on the patient's clinical course. Please do not hesitate to contact me if you have any questions or concerns. This medical document was created using an electronic medical record system with [employer] dictation system. Although these documentations are being carefully reviewed, there may still be some phonetic and typographical changes. The errors are purely typographical, due to imperfection on the software program, and do not reflect any compromise in the patient's medical care. Plan discussed with: Patient, Other (RN Maria A) Visit Coding Pulmonary Billing Provider: KENNY FROST MD Date of Service if different f: Nov 28, 2024 Common Visit Codes: [id number] INP/OBS CARE(HIGH) KENNY FROST MD Nov 28, 2024 21:13
[2024-11-29] VITALS (13 sets, daily range): BP systolic 89–140; BP diastolic 37–89; PULSE 44–93; RESP 14–22; TEMP 98.1–99.6; O2SAT 92–100
--- NOTE | 2024-11-29 07:51 | DVHPN2 ---
Progress Note - Dictate Date Seen: Nov 29, 2024 Has the PT tested + for MRSA If YES, has PT been informed?: No Medical Necessity Reason Pt with a Central, PICC or Fol: No The following are medically ne: PICC Line, Cutler Catheter Reason for cutler catheter: Strict I&O vital signs Vital Sign Date Time Temp Pulse Resp B/P (MAP) Pulse Ox O2 Delivery O2 Flow Rate FiO2 11/29/24 06:00 107/68 11/29/24 05:00 98.9 83 19 96 98.9 11/28/24 22:21 Room Air 0.0 11/28/24 22:21 21 Total Intake and Output 11/28/24 11/28/24 11/29/24 15:00 23:00 07:00 Intake Total 0 ml 0 ml Output Total 550 ml 600 ml Balance -550 ml -600 ml medications Current Medications Medications Dose Ordered Sig/Liliam Route Start Time Stop Time Status Last Admin Dose Admin Amino Acids 0 ml @ 0 mls/hr PER PHARMACY IV 10/15/24 18:45 Cancel Dextrose 50 ml UD IV 10/16/24 09:30 Cancel Vancomycin HCl 0 ml @ 0 mls/hr UD IV 10/19/24 14:00 Cancel Metoprolol Tartrate 2.5 mg Q6HPRN PRN IV 10/31/24 09:15 Amino Acids 0 ml @ 0 mls/hr PER PHARMACY IV 11/04/24 22:00 Cancel Amino Acid Protein 30 ml DAILY PO 11/04/24 10:00 11/28/24 14:44 30 ML Pantoprazole Sodium 40 mg BID IV 11/09/24 22:00 11/28/24 22:00 40 MG Mexiletine HCl 150 mg TID GT 11/10/24 22:00 11/29/24 06:00 150 MG Fat Emulsion Intravenous 150 ml/Sodium Acetate 20 meq/Potassium Acetate 30 meq/ Potassium Phosphate 19.8 meq/Calcium Gluconate 2.3 meq/ Magnesium Sulfate 4 meq/ Multivitamins 10 ml/Chromium/ Copper/Manganese/ Zinc 1 ml/Amino Acids/Dextrose/ Purified Water 1,596.4462 ml @ 66 mls/hr [id number] IV 11/11/24 22:00 11/12/24 21:59 Cancel Furosemide 40 mg BIDD IV 11/14/24 18:00 11/29/24 06:00 40 MG Acetaminophen 650 mg Q4HR PRN GT 11/17/24 08:30 11/22/24 07:10 650 MG Potassium Bicarbonate 50 meq BID PEG 11/18/24 22:00 11/28/24 22:00 50 MEQ Enteral Nutritional Formula 1,000 ml 55ML/HR GT 11/19/24 15:00 11/27/24 20:46 1,000 ML Lorazepam 1 mg ONCE PRN IV 11/20/24 10:30 Apixaban 2.5 mg BID PEG 11/26/24 22:00 11/28/24 22:00 2.5 MG Albuterol 2.5 mg Q4HWA [facility] 11/28/24 14:00 11/28/24 22:23 2.5 MG Ipratropium Chamberlain 0.5 mg Q4HWA [facility] 11/28/24 14:00 11/28/24 22:23 0.5 MG laboratory and microbiology Test 11/29/24 06:40 Range/Units Serum Glucose Pending Assessment/Plan Alert, NAD Patient is a 54-year-old female who was brought to the hospital for witnessed syncope. She is intubated and is being managed in ICU. Information was obtained by reviewing the chart and communicating with patient's son (over the phone). Family recognized witnessed syncope and started CPR and called EMS. Reportedly, EMS found the patient in ventricular fibrillation and shocked the patient and brought the patient to the hospital. Patient was intubated in emergency room and transferred to ICU. Patient was on amiodarone drip. Later the patient had ventricular tachycardia (Systane). High sensitive troponin had been minimally/flatly elevated. Presentation was not in favor of acute coronary syndrome. Cardiology is involved for cardiac aspects of care. NAD No JVD. Mucosa pale. No carotid bruit. Scattered rhonchi in the lungs is heard. Cardiac: Regular, no thrill. Systolic murmur 2/6 in apex is heard. Abdomen is soft. 3+ edema in extremities. Past medical history as per son: Congenital heart disease, status post bypass Troponin (high sensitive): 141 - 138 - 117 BNP: 457.16 - 1073.91 - 928.14 Digoxin level: 2.83 - 1.25 - 0.98 UDS: non-revealing Chest x-ray revealed: Lines and Tubes: Endotracheal tube tip projects approximately 1.4 cm above the level of the tyler. Enteric catheter courses below the lateral of the diaphragm and terminates beyond the inferior margin of the image. Right internal jugular central venous catheter terminates within the distal superior vena cava. Lungs: Moderate diffuse increased prominence of the pulmonary vasculature without evidence of focal consolidation. Pleura: No effusion. No pneumothorax. Cardiomediastinal contours: Cardiomegaly. Bones: Unremarkable IMPRESSION: 1. Cardiomegaly and diffuse increased prominence of the pulmonary vasculature. 2. Lines and tubes as above. Repeat chest x-ray revealed: IMPRESSION: 1. Endotracheal tube tip 1.6 cm above the tyler; consider 2 cm retraction 2. Mild pulmonary vascular congestion. Moderate cardiomegaly. Repeat chest xry revealed: IMPRESSION: Endotracheal tube tip 1.6 cm above the tyler; consider 2 cm retraction Mild pulmonary vascular congestion. Moderate cardiomegaly. Repeat chest xry revealed: IMPRESSION: 1. Stable cardiomegaly, small left pleural effusion and mild diffuse increased prominence of the pulmonary va sculature. 2. Repositioned endotracheal tube as above. Remaining lines and tubes unchanged. Repeat chest xry revealed: IMPRESSION: 1. Cardiomegaly, stable diffuse increased prominence of the pulmonary vasculature and small bilateral pleural effusions. 2. Slight interval advancement of endotracheal tube as above. Remaining lines and tubes unchanged. Repeat chest xry revealed: IMPRESSION: 1. Slight interval decrease in diffuse increased prominence of the pulmonary vasculature. 2. Stable cardiomegaly and small left pleural effusion. 3. Lines and tubes unchanged. Repeat chest xry revealed: IMPRESSION: 1. Cardiomegaly and small left pleural effusion. 2. Lines and tubes unchanged. Repeat chest xry revealed: IMPRESSION: Stable lines and tubes. Similar lung aeration. Repeat chest xry revealed: IMPRESSION: Cardiomegaly and small left pleural effusion. Lines and tubes unchanged. Repeat chest xry revealed: IMPRESSION: Placement of a cardiac pacer, no pneumothorax is seen. Stable lines and tubes. Repeat chest xry revealed: IMPRESSION: 1. Worsening mixed opacities in the right lower lung. No other significant change from the previous study. Stable support devices. Repeat chest xry revealed: Heart is prominent in size with postsurgical changes, median sternotomy wires, and a single lead left cardiac defibrillator. Support lines and tubes appear unchanged in satisfactory in position. No sizable effusion or pneumothorax. Mild pulmonary vascular congestion. No significant interval change. Repeat chest xry revealed: IMPRESSION: 1. No significant change from the previous study. Stable support devices. Similar findings of heart failure including left pleural effusion. Repeat chest xry revealed: IMPRESSION: 1. No significant change from the previous study. Stable support devices. Similar findings of heart failure including trace left pleural effusion. Repeat chest xry revealed: Lines and Tubes: Unchanged. Left anterior chest wall cardiac pacing device. Lungs: Clear Pleura: No effusion. No pneumothorax. Cardiomediastinal contours: Cardiomegaly. Bones: Unremarkable IMPRESSION: 1. Cardiomegaly. 2. Lines and tubes unchanged. Repeat chest xry revealed: IMPRESSION: Lines and tubes in satisfactory position. No significant interval change. Repeat chest xry revealed: Lines and Tubes: ET tube and NG tube removed. Lungs: Congestion Pleura: No effusion. No pneumothorax. Cardiomediastinal contours: Cardiomegaly Bones: Unremarkable IMPRESSION: 1. Cardiomegaly with CHF. Repeat chest xry revealed: IMPRESSION: 1. Cardiomegaly. 2. Patchy bilateral airspace disease. Repeat chest xry revealed: FINDINGS: Lines and Tubes: None. Left anterior chest wall cardiac pacing device. Lungs: Extensive multifocal bilateral pulmonary airspace disease in a predominantly perihilar and bibasilar distribution with consolidative features. Pleura: No effusion. No pneumothorax. Cardiomediastinal contours: Poorly evaluated secondary to extensive bilateral infiltrate. Bones: Unremarkable IMPRESSION: 1. Extensive multifocal bilateral pulmonary airspace disease in a predominantly perihilar and bibasilar distribution with consolidative features. Repeat chest xry revealed: IMPRESSION: 1. Status post interval intubation. Endotracheal tube tip projects approximately 2.4 cm above the level of the tyler. 2. Grossly stable appearing moderate patchy multifocal bilateral pulmonary airspace disease with consolidative features. 3. Cardiomegaly. Repeat chest xry revealed: IMPRESSION: No significant interval change. Repeat chest xry revealed: IMPRESSION: No significant interval change Repeat chest xry revealed: IMPRESSION: 1. Interval retraction of the endotracheal tube such that the tip now projects approximately 4.5 cm above the level of the tyler. 2. Cardiomegaly. Repeat chest xry revealed: IMPRESSION: 1. Mild interval advancement of the endotracheal tube such that the tip now projects approximately 3.3 cm above the level of the tyler. 2. No evidence of acute cardiopulmonary process. Repeat chest xry revealed: IMPRESSION: Lines and tubes in satisfactory position. No significant interval change. Repeat chest xry revealed: IMPRESSION: 1. Interval advancement of endotracheal tube such that the tip now projects approximately 3.7 cm above the level of the tyler. Remaining lines and tubes unchanged. 2. Cardiomegaly. Repeat chest xry revealed: IMPRESSION: Unchanged pulmonary vascular congestion. Repeat chest xry revealed: IMPRESSION: No significant interval change. Repeat chest xry revealed: IMPRESSION: 1. Interval retraction of endotracheal tube such that the tip now projects approximately 4.5 cm above the level of the tyler. Remaining lines and tubes unchanged. 2. Cardiomegaly. Repeat chest xry revealed: IMPRESSION: 1. Appropriate position of the support lines and tubes. 2. No acute pulmonary disease. 3. Stable cardiomegaly. Gall Bladder Ultrasound revealed: IMPRESSION: Gallstones are noted. Hepatic steatosis Trace ascites Trace bilateral pleural effusions. Hepatic cirrhosis. Liver Ultrasound revealed: Hepatic steatosis. Trace right pleural effusion. Trace ascites Gallstones Bladder ultrasound revealed: IMPRESSION: 1. Cutler catheter in the bladder in the bladder is decompressed. Repeat Bladder Ultrasound revealed: Urinary bladder is unremarkable with prevoid volume of 29 mL. Urinary bladder wall measures 1.5 mm. Cutler catheter is noted. KUB revealed: IMPRESSION: Nonobstructive bowel gas pattern. Nasogastric tube tip in the stomach. Large stool burden. Repeat KUB revealed: Right lower extremity PICC line with tip projecting over the expected region of the intrahepatic IVC. Nasogastric tube projecting towards the distal stomach. Nonspecific bowel gas pattern. Cardiomegaly and left basilar airspace opacities, incompletely characterized. Atherosclerotic calcification disease. Repeat KUB revealed: IMPRESSION: 1. Nonspecific nonobstructive bowel gas pattern. 2. Gastrostomy tube projects over the midportion of the left hemiabdomen. 3. Right femoral approach central venous catheter as described above. Repeat KUB revealed: IMPRESSION: Nonobstructive bowel gas pattern. Right central venous catheter tip in the IVC Cutler catheter overlying the bladder. Left upper ext arterial duplex: IMPRESSION: No hemodynamically significant stenosis based on peak systolic velocity criteria. Left lower ext arterial duplex: IMPRESSION: There is no evidence for peripheral vascular insufficiency in the left lower extremity. No significant focal stenosis is identified. Liver Ultrasound revealed: Hepatic steatosis. Hepatomegaly. Cholelithiasis. CT of the head revealed: IMPRESSION: No acute intracranial abnormality. Repeat CT of head revealed: IMPRESSION: No acute intracranial abnormality. Repeat CT of Head revealed: IMPRESSION: No acute intracranial abnormality. Repeat CT of head revealed: IMPRESSION: 1. No acute intracranial abnormality. 2. No findings to suggest territorial ischemia. Echocardiogram reported: lvef 15-20% dilated LV severe global dysfunction mild RV dysfunction biatrial enlargement mild moderate MAC, moderate mitral regurg mild to moderate aortic regug (images of echo reviewed and questioned presence of mitral ring and also some component (moderate of Mitral stenosis) EKG revealed sinus rhythm Telemetry revealed occasions of atrial fibrillation. There was occasional sustained ventricular tachycardia. EMS tele monitor revealed ventricular fibrillation for which the patient was shocked. Has remained sinus rhythm. Later with A-fib with MVR LHC revealed: Patent RICHMOND to LAD; Patent SVG to obtuse marginal; LVEF of 20% with increased EDP; Proximal disease in LAD/LCX RICHIE was performed: Consistent with severely reduced LVEF. Consistent with previously implanted Mitral ring, Up to moderate Mitral stenosis/Mitral Regurgitation and also Moderate Aortic insufficiency. Patient is a 54-year-old female who presented with witnessed syncope. She was found to have ventricular fibrillation for which was shocked. Later had repeated episode of sustained ventricular tachycardia. Patient has been kept in ICU. Does have baseline history of coronary artery disease for which has had bypass surgery. Left heart catheterization was performed which revealed patent RICH[place]D and patent SVG. ACS is not considered at this point. It is of note that the patient's echocardiogram reveals significantly use systolic function. Valvular heart disease is considered. Findings are in favor of previously impl anted mitral ring. By reviewing the echo images, component of up to moderate mitral stenosis could not be ruled out. LHC was performed that ruled out any active specific ischemia as an etiology for presentation. Is off Amiodarone for abnormal LFT. Being followed by Nephrology / Pulmonary / Neurology / GI ID. Tele has remained sinus rhythm. Had episode of a-fib with RVR. Was loaded with Digoxin. Dig level was performed at wrong timing (only 5 hours after the last Dig given). Dig toxicity is not considered. Patient is back to normal sinus rhythm. Has good kidney function. Repeat Dig level is acceptable level. s/p ICD implantation by EP. Intubated, later extubated. s/p PEG. Later had respiratory failure and was taken back to ICU. Imaging question pneumonia (can it be aspiration?). Eventhough repeat BNP has not increased (decreased somehow), patient does have peripheral edema and component of acute on chronic Systolic heart failure could also contribute to respiratory failure. The site of ICD implantation was reviewed by EP (Dr Armstrong on 05/13/2024): healing well (personal communication). Had repeat respiratory failure, back in ICU and i ntubated. Abnormal LFT. Found to have gall stone and Liver cirrhosis. Extubated and transferred back to tele floor Syncope V-fib s/p shock Sustained V-tach Paroxysmal A-fib VHD, s/p Mitral ring Systolic heart failure Abnormal LFT, at a point resolved, later appeared again s/p ICD (Biotronik) implantation by EP (Dr Armstrong) s/p PRBC transfusion for significant anemia Hepatic Steatosis Gallstones Failed Swallowing s/p PEG Acute respiratory failure Acute on chronic systolic heart failure Gallstone Liver cirrhosis s/p repeated intubation and extubations Cardiac suggestion for management: Manage in Tele IV diuresis Follow up electrolytes and kidney function test and correct abnormalities Full anticoagulation (a-fib with high CHADS-Vasc score). s/p ICD implantation. On Eliquis On Mexiletine Cardiac arenas, stable s/p ICD (Biotronik) implantation by EP Eliquis: 2.5 mg BID s/p PEG Pulmonary Follow up GI follow up Cardiac arenas (hemodynamically): stable Management of repeat respiratory failure, pneumonia as per primary team/pulmonary Provide previous medical records from reaching out to previous hospitals in [facility]... Further evaluation and management depends on the above and clinical course. A total of 75 minutes was spent reviewing the patient record, examining the patient, making a diagnostic and therapeutic plan, discussing this plan with medical personnel, following up on diagnostic studies and following the patient for clinical stability excluding any and all procedures. At least 50% of this time was spent in direct, [id number] contact. Thank you for allowing me to participate in this patient's care. Further recommendations will depend on patient's clinical course. Please do not hesitate to contact me if you have any questions or concerns. This medical document was created using electronic medical record system with [employer] dictation system. Although this document has been carefully reviewed, there may still be some phonetic and typographical errors. These areas are purely typographical due to the imperfection of the software programs, and do not reflect any compromise in the patient's medical care. Dietary Evaluation Review Comments: 1) TF Jevity 1.2Cal @ 55 ml/hr. x 24hr along with Pro-stat 1 pk daily. Start @ 20ml/hr, increase 10ml/hr Q4H until goal is reached. TF @ goal volume provides 1684 kcal (100% energy needs), 88 gm protein (100% protein needs), 1065 ml free water. 2) Water flush 100ml Q4H if allowed, adjust PRN 3) Advance to cardiac diet as medically feasible 4) Monitor NPO status, lab values, wt trend, I/O Expected Outcomes/Goals: To meet >75% estimated needs within 7 days Lab values to improve Fu 2-3 days Plan discussed with: Other (nurse) CORDELL VERA MD Nov 29, 2024 07:51
[2024-11-29 08:04] LABS: Hematocrit 28.2 % (36.0-46.0); Hemoglobin 9.4 g/dL (12.2-16.2); Mean Corpuscular Hemoglobin 31.4 pg (28.0-32.0); Mean Corpuscular Volume 94.2 fL (80.0-100.0)
[2024-11-29 08:10] LABS: Anion Gap 11 (5-15); BUN/Creatinine Ratio 35.2 (10.0-20.0); Blood Urea Nitrogen 19 mg/dL (9-23); Carbon Dioxide 28 mmol/L (20-31); Chloride 100 mmol/L (98-107); Potassium 3.6 mmol/L (3.5-5.1); Sodium 139 mmol/L (136-145)
[2024-11-29 08:12] LABS: Alanine Aminotransferase 112 U/L (7-40); Albumin 2.7 g/dL (3.2-4.8); Alkaline Phosphatase 151 U/L (46-116); Bilirubin, Total 1.4 mg/dL (0.2-1.0); Calcium 8.1 mg/dL (8.7-10.4); Glucose 106 mg/dL (74-106); Total Protein 5.4 g/dL (5.7-8.2)
[2024-11-29 08:52] LABS: Anisocytosis Moderate; Total Cells Counted 100.0 (100)
--- NOTE | 2024-11-29 09:36 | DVHPN2 ---
Consult Progress Note Objective vital signs Vital Sign Date Time Temp Pulse Resp B/P (MAP) Pulse Ox O2 Delivery O2 Flow Rate FiO2 11/29/24 06:00 107/68 11/29/24 05:00 98.9 83 19 96 98.9 11/28/24 22:21 Room Air 0.0 11/28/24 22:21 21 Total Intake and Output 11/28/24 11/28/24 11/29/24 15:00 23:00 07:00 Intake Total 0 ml 0 ml Output Total 550 ml 600 ml Balance -550 ml -600 ml medications Current Medications Medications Dose Ordered Sig/Liliam Route Start Time Stop Time Status Last Admin Dose Admin Amino Acids 0 ml @ 0 mls/hr PER PHARMACY IV 10/15/24 18:45 Cancel Dextrose 50 ml UD IV 10/16/24 09:30 Cancel Vancomycin HCl 0 ml @ 0 mls/hr UD IV 10/19/24 14:00 Cancel Metoprolol Tartrate 2.5 mg Q6HPRN PRN IV 10/31/24 09:15 Amino Acids 0 ml @ 0 mls/hr PER PHARMACY IV 11/04/24 22:00 Cancel Amino Acid Protein 30 ml DAILY PO 11/04/24 10:00 11/28/24 14:44 30 ML Pantoprazole Sodium 40 mg BID IV 11/09/24 22:00 11/28/24 22:00 40 MG Mexiletine HCl 150 mg TID GT 11/10/24 22:00 11/29/24 06:00 150 MG Fat Emulsion Intravenous 150 ml/Sodium Acetate 20 meq/Potassium Acetate 30 meq/ Potassium Phosphate 19.8 meq/Calcium Gluconate 2.3 meq/ Magnesium Sulfate 4 meq/ Multivitamins 10 ml/Chromium/ Copper/Manganese/ Zinc 1 ml/Amino Acids/Dextrose/ Purified Water 1,596.4462 ml @ 66 mls/hr [id number] IV 11/11/24 22:00 11/12/24 21:59 Cancel Furosemide 40 mg BIDD IV 11/14/24 18:00 11/29/24 06:00 40 MG Acetaminophen 650 mg Q4HR PRN GT 11/17/24 08:30 11/22/24 07:10 650 MG Potassium Bicarbonate 50 meq BID PEG 11/18/24 22:00 11/28/24 22:00 50 MEQ Enteral Nutritional Formula 1,000 ml 55ML/HR GT 11/19/24 15:00 11/27/24 20:46 1,000 ML Lorazepam 1 mg ONCE PRN IV 11/20/24 10:30 Apixaban 2.5 mg BID PEG 11/26/24 22:00 11/28/24 22:00 2.5 MG Albuterol 2.5 mg Q4HWA [facility] 11/28/24 14:00 11/28/24 22:23 2.5 MG Ipratropium [place] 0.5 mg Q4HWA [facility] 11/28/24 14:00 11/28/24 22:23 0.5 MG laboratory and microbiology Laboratory Tests 11/29/24 06:40 Test 11/29/24 06:40 Range/Units Serum Glucose 106 74-106 mg/dL Problem List/Assessment/Plan Problem List/Assessment/Plan Problems(with codes): (1) Pneumonia (2) Cardiac arrest (3) Ventricular fibrillation (4) Sepsis, unspecified organism Plan/Recommendation ASSESSMENT AND PLAN: ID Problem List: \-- Status post cardiac arrest with return of spontaneous circulation (ROSC) \-- Ventricular tachycardia and atrial fibrillation \-- Recent aspiration event/pneumonitis versus pneumonia, Enterobacter cloacae isolated \-- Severe reduced ejection fraction (EF 1520%), dilated LV, severe global dysfunction \-- History of CABG with stents, mitral ring implant \-- Hypothermia, hypoxia requiring intubation and sedation \-- Sepsis (suspected/treated), leukocytosis (now resolved) \-- Ongoing vasopressor requirement (phenylephrine) \-- ICD placement planned Assessment Ms. Smith is a 54-year-old female with a past medical history notable for prior coronary artery bypass grafting (CABG) with stenting, recent mitral ring implant, and significant cardiac disease. She presented on 10/07 with an acute witnessed cardiac arrest during dinner; initial rhythm was ventricular tachycardia/atrial fibrillation. ROSC was achieved on EMS arrival after a single shock and Narcan administration. She was found to be hypothermic and hypotensive and required intubation for airway protection due to altered mental status. During her ICU course, she had recurrent ventricular tachycardia and atrial fibrillation, managed with antiarrhythmic drip (amiodarone), vasopressors (initially Levophed, currently phenylephrine), and heparin drip. Echocardiogram and left heart catheterization confirmed poor left ventricular function (EF 1520%, dilated LV) and patent bypass grafts. The patient also experienced aspiration pneumonitis, with Enterobacter cloacae isolated from sputum (sensitive to cefepime); empiric antibiotics were escalated to ertapenem following transient fever and leukocytosis, which have since resolved. Currently, she remains intubated on pressure support (tolerating CPAP trials), minimally following commands. She is on phenylephrine, Lasix drip, and heparin drip, with ongoing close monitoring. Cardiology in agreement to proceed with ICD placement given recurrent arrhythmias. Infectious disease clearance provided for this, as there is no evidence of persistent infection or sepsis (blood cultures negative, leukocytosis resolved). 10/12: awaiting AICD placement 10/13: sputum culture was done for further evaluation of persistent pneumonia , no thick secretions 10/14:Dr. bernardo recommends stopping aminopterin drip and LFTs appear to be improving with this change 10/15:lfts are normalizing , sputum shows krystal colonization 10/16: holding excavation til placement 10/17:s/p AICD placement and tolerated procedure . lfts are normal and off amioterine drip 10/18: sp Status post successful implantation of dual chamber AICD, DX Biotronik, Device was programmed into VDI lower rate of 40 bpm 10/19: unclear if patient aspirated vs developed new infection 10/20: levofed at 2 mics and started on steroids agree with continuing regimen until able to titrate off . suspect aspiration pneumonia , has high tube feed residuals . chest xray shows little changes but there is mild congestion in the right lung base , patient remains hypotensive . blood cultures no growth to date as well as urine cultures .appears to be recovering now that antibiotics have been re initiated 10/21:chest xray shows right lower lung base infiltrates , suspect aspiration pneumonia due to high tube feed residuals Plan: - large suspicion for aspiration pneumonia , discontinue vancomycin and continue zosyn for now - if hypoxia remains stable and continues to come off pressers support would discontinue zosyn in 2-3 days - defer to primary and flight dispatcher team for management - keep maps above 65 - f/u on blood and urine culture results - continue zosyn - continue antibiotics \-- Maintain phenylephrine drip; titrate as needed to maintain MAP. \-- Monitor neurological status; currently, patient is intermittently following commands and is becoming more alert \-- No evidence of active sepsis or bacteremia at this time. \-- Continue supportive ICU care and multidisciplinary management. Authorized and Performed by: soham gramajo md Total critical care time: Approximately 36 minutes Due to a high probability of clinically significant, life threatening deterioration, the patient required my highest level of preparedness to intervene emergently and I personally spent this critical care time directly and personally managing the patient. This critical care time included obtaining a history; examining the patient; pulse oximetry; ordering and review of studies; arranging urgent treatment with development of a management plan; evaluation of patient's response to treatment; frequent reassessment; and, discussions with other providers. This critical care time was performed to assess and manage the high probability of imminent, life-threatening deterioration that could result in multi-organ failure. It was exclusive of separately billable procedures and treating other patients and teaching time. Isolation Precautions: Standard Dietary Evaluation Review Comments: 1) TF Jevity 1.2Cal @ 55 ml/hr. x 24hr along with Pro-stat 1 pk daily. Start @ 20ml/hr, increase 10ml/hr Q4H until goal is reached. TF @ goal volume provides 1684 kcal (100% energy needs), 88 gm protein (100% protein needs), 1065 ml free water. 2) Water flush 100ml Q4H if allowed, adjust PRN 3) Advance to cardiac diet as medically feasible 4) Monitor NPO status, lab values, wt trend, I/O Expected Outcomes/Goals: To meet >75% estimated needs within 7 days Lab values to improve Fu 2-3 days SOHAM GRAMAJO MD Nov 29, 2024 09:36
--- NOTE | 2024-11-29 09:43 | DVHPN2 ---
Progress Note Date Seen: Nov 29, 2024 Resident Creating Document: ETHAN SWAN RESIDENT Has the PT tested + for MRSA If YES, has PT been informed?: No Medical Necessity Reason Pt with a Central, PICC or Fol: No The following are medically ne: PICC Line, Cutler Catheter Reason for cutler catheter: Strict I&O Subjective Review of Systems Patient seen and examined at bedside A&O x3 today Last bowel movement yesterday, watery Denies any nausea vomiting Denies any abdominal pain Noted a drop in hemoglobin from 10.9-9.4, no signs of active GI bleed Objective vital signs Vital Sign Date Time Temp Pulse Resp B/P (MAP) Pulse Ox O2 Delivery O2 Flow Rate FiO2 11/29/24 09:00 99.6 86 22 89/54 (66) 94 99.6 11/28/24 22:21 Room Air 0.0 11/28/24 22:21 21 Total Intake and Output 11/28/24 11/28/24 11/29/24 15:00 23:00 07:00 Intake Total 0 ml 0 ml Output Total 550 ml 600 ml Balance -550 ml -600 ml medications Current Medications Medications Dose Ordered Sig/Liliam Route Start Time Stop Time Status Last Admin Dose Admin Amino Acids 0 ml @ 0 mls/hr PER PHARMACY IV 10/15/24 18:45 Cancel Dextrose 50 ml UD IV 10/16/24 09:30 Cancel Vancomycin HCl 0 ml @ 0 mls/hr UD IV 10/19/24 14:00 Cancel Metoprolol Tartrate 2.5 mg Q6HPRN PRN IV 10/31/24 09:15 Amino Acids 0 ml @ 0 mls/hr PER PHARMACY IV 11/04/24 22:00 Cancel Amino Acid Protein 30 ml DAILY PO 11/04/24 10:00 11/28/24 14:44 30 ML Pantoprazole Sodium 40 mg BID IV 11/09/24 22:00 11/28/24 22:00 40 MG Mexiletine HCl 150 mg TID GT 11/10/24 22:00 11/29/24 06:00 150 MG Fat Emulsion Intravenous 150 ml/Sodium Acetate 20 meq/Potassium Acetate 30 meq/ Potassium Phosphate 19.8 meq/Calcium Gluconate 2.3 meq/ Magnesium Sulfate 4 meq/ Multivitamins 10 ml/Chromium/ Copper/Manganese/ Zinc 1 ml/Amino Acids/Dextrose/ Purified Water 1,596.4462 ml @ 66 mls/hr [id number] IV 11/11/24 22:00 11/12/24 21:59 Cancel Furosemide 40 mg BIDD IV 11/14/24 18:00 11/29/24 06:00 40 MG Acetaminophen 650 mg Q4HR PRN GT 11/17/24 08:30 11/22/24 07:10 650 MG Potassium Bicarbonate 50 meq BID PEG 11/18/24 22:00 11/28/24 22:00 50 MEQ Enteral Nutritional Formula 1,000 ml 55ML/HR GT 11/19/24 15:00 11/27/24 20:46 1,000 ML Lorazepam 1 mg ONCE PRN IV 11/20/24 10:30 Apixaban 2.5 mg BID PEG 11/26/24 22:00 11/28/24 22:00 2.5 MG Albuterol 2.5 mg Q4HWA [facility] 11/28/24 14:00 11/28/24 22:23 2.5 MG Ipratropium [place] 0.5 mg Q4HWA [facility] 11/28/24 14:00 11/28/24 22:23 0.5 MG Examination General Appearance: Somnolent Head Exam: Normal inspection. Constricted equal and reactive pupils Neck Exam: Normal inspection. Non-tender. Normal alignment Pulmonary/Respiratory: Chest non-tender. Trace crackles Abdominal Exam: Normal bowel sounds. Soft. Nontender Skin Exam: Normal inspection. Normal color. Warm. Dry laboratory and microbiology Laboratory Tests 11/29/24 06:40 Test 11/29/24 06:40 Range/Units Serum Glucose 106 74-106 mg/dL Microbiology Date/Time Source Procedure Growth Status 11/16/24 04:50 Urine - Cutler Port Urine Culture - Final Enterococcus faecium - VRE Complete 11/14/24 11:50 Sputum Endotracheal Wash Gram Stain - Final Complete 11/14/24 11:50 Sputum Endotracheal Wash Respiratory Culture - Final Complete 11/14/24 08:50 Blood Blood Culture - Final NO GROWTH AFTER 5 DAYS OF INCUBATION. Complete 11/14/24 04:30 Nose MRSA Screen - Final Complete Labs and/or images reviewed: Labs reviewed by me, Image(s) reviewed by me Problem List/Assessment/Plan Problem List/Assessment/Plan Acute hepatocellular injury likely shock liver Hepatic cirrhosis? Coagulopathy due to above Ventricular fibrillation S/p cardiopulmonary arrest with shock Heart failure with reduced ejection fraction 15-20% Metabolic versus hypoxic encephalopathy Cholelithiasis without acute inflammation Nonalcoholic fatty liver disease with steatohepatitis Community-acquired pneumonia growing Enterobacter Aspiration pnemonia? sepsis Plan: Ordered stool occult blood S/p extubation Discontinued free water continue antibiotics consider MRCP once stable Tapered hydrocortisone to q.12 hours on 11/06/2024 Tapered hydrocortisone to once daily on 11/13/2024 Discontinued hydrocortisone on 11/20/2024 s/p PEG tube placement; working appropriately monitor LFT's Keep PT/INR therapeutic Hemoglobin stable, transfuse if HB 7 or less Continue tube feedings at 55cc/hr Discontinued metoclopramide JAIDEN positive, outpatient follow up with GI recommended for further workup Discharge planning to [facility] facility recommended Thank you so much for the opportunity to consult on your patient. GI team will follow the patient. In case of any questions or concerns please feel free to reach out. Plan discussed with Dr. Anglin Plan discussed with: Patient, Other (RN) Dietary Evaluation Review Comments: 1) TF Jevity 1.2Cal @ 55 ml/hr. x 24hr along with Pro-stat 1 pk daily. Start @ 20ml/hr, increase 10ml/hr Q4H until goal is reached. TF @ goal volume provides 1684 kcal (100% energy needs), 88 gm protein (100% protein needs), 1065 ml free water. 2) Water flush 100ml Q4H if allowed, adjust PRN 3) Advance to cardiac diet as medically feasible 4) Monitor NPO status, lab values, wt trend, I/O Expected Outcomes/Goals: To meet >75% estimated needs within 7 days Lab values to improve Fu 2-3 days ETHAN SWAN RESIDENT Nov 29, 2024 09:43
--- NOTE | 2024-11-29 12:57 | DVHPN2 ---
Progress Note - Dictate Date Seen: Nov 29, 2024 Has the PT tested + for MRSA If YES, has PT been informed?: No Medical Necessity Reason Pt with a Central, PICC or Fol: No The following are medically ne: PICC Line, Cutler Catheter Reason for cutler catheter: Strict I&O vital signs Vital Sign Date Time Temp Pulse Resp B/P (MAP) Pulse Ox O2 Delivery O2 Flow Rate FiO2 11/29/24 12:39 98.4 79 22 101/55 (70) 94 98.4 11/28/24 22:21 Room Air 0.0 11/28/24 22:21 21 Total Intake and Output 11/28/24 11/28/24 11/29/24 15:00 23:00 07:00 Intake Total 0 ml 0 ml Output Total 550 ml 600 ml Balance -550 ml -600 ml medications Current Medications Medications Dose Ordered Sig/Liliam Route Start Time Stop Time Status Last Admin Dose Admin Amino Acids 0 ml @ 0 mls/hr PER PHARMACY IV 10/15/24 18:45 Cancel Dextrose 50 ml UD IV 10/16/24 09:30 Cancel Vancomycin HCl 0 ml @ 0 mls/hr UD IV 10/19/24 14:00 Cancel Metoprolol Tartrate 2.5 mg Q6HPRN PRN IV 10/31/24 09:15 Amino Acids 0 ml @ 0 mls/hr PER PHARMACY IV 11/04/24 22:00 Cancel Pantoprazole Sodium 40 mg BID IV 11/09/24 22:00 11/29/24 11:28 40 MG Mexiletine HCl 150 mg TID GT 11/10/24 22:00 11/29/24 06:00 150 MG Fat Emulsion Intravenous 150 ml/Sodium Acetate 20 meq/Potassium Acetate 30 meq/ Potassium Phosphate 19.8 meq/Calcium Gluconate 2.3 meq/ Magnesium Sulfate 4 meq/ Multivitamins 10 ml/Chromium/ Copper/Manganese/ Zinc 1 ml/Amino Acids/Dextrose/ Purified Water 1,596.4462 ml @ 66 mls/hr [id number] IV 11/11/24 22:00 11/12/24 21:59 Cancel Furosemide 40 mg BIDD IV 11/14/24 18:00 11/29/24 06:00 40 MG Acetaminophen 650 mg Q4HR PRN GT 11/17/24 08:30 11/22/24 07:10 650 MG Potassium Bicarbonate 50 meq BID PEG 11/18/24 22:00 11/29/24 11:28 50 MEQ Enteral Nutritional Formula 1,000 ml 55ML/HR GT 11/19/24 15:00 11/27/24 20:46 1,000 ML Lorazepam 1 mg ONCE PRN IV 11/20/24 10:30 Apixaban 2.5 mg BID PEG 11/26/24 22:00 11/29/24 11:28 2.5 MG Albuterol 2.5 mg Q4HWA [facility] 11/28/24 14:00 11/28/24 22:23 2.5 MG Ipratropium [place] 0.5 mg Q4HWA NEB 11/28/24 14:00 11/28/24 22:23 0.5 MG Amino Acid Protein 30 ml DAILY GT 11/30/24 10:00 objective HEENT: EOMI, PERRLA, normal external inspect of ears, no icterus, no nasal drainage Neck: no carotid bruit, no jugular venous distention (JVD), no lymphadenopathy Chest: normal thorax Respiratory: Intubated, clear to auscultation, normal air movement Cardiovascular: regular rate and rhythm, no diastolic murmur, no jugular venous distention (JVD), no rub, no systolic murmur Abdominal: soft, no hepatomegaly, no mass, no splenomegaly, no tenderness Genitourinary: grossly normal external Musculoskeletal: no joint tenderness, no swelling Extremities: normal pulses, no calf tenderness, no clubbing, no cyanosis, no edema Skin: no bruising, no jaundice, no rash Neurological: No focal deficit laboratory and microbiology Laboratory Tests 11/29/24 06:40 Test 11/29/24 06:40 Range/Units Serum Glucose 106 74-106 mg/dL Problem List Cardiac Arrest with Ventricular Fibrillation Assessment: Patient experienced cardiac arrest with ventricular fibrillation on 10/07/24, witnessed by family members who initiated CPR. EMS found the patient in ventricular fibrillation and administered shock therapy. Rhythm strip analysis confirmed ventricular fibrillation. Patient required intubation and sedation upon ED arrival. Currently admitted to ICU for close observation. Cardiology has been consulted and plans for AICD placement, likely on Tuesday. Infectious disease clearance has been obtained for the AICD procedure, addressing initial concerns of leukocytosis which is now improving. Status post-cardiac arrest. Plan: - Continue ICU monitoring - Proceed with AICD placement as planned (likely Tuesday), cleared by infectious disease. - Maintain intubation and sedation until AICD placement - Continue Heparin drip for paroxysmal atrial fibrillation - Continue Mexitil - DC amiodarone due to transaminitis - added esmolol drip per Cardiology for AFib and added push doses of digoxin Coronary Artery Disease Assessment: Patient with history of 2-vessel CABG (Coronary Artery Bypass Grafting). Surgical intervention previously performed to address significant coronary artery stenosis. Plan: - Continue medical management - Follow up with cardiology for ongoing coronary artery disease management Acute and Chronic Systolic Heart Failure Assessment: Patient has acute and chronic systolic heart failure with severely reduced left ventricular function. Ejection fraction is estimated at 15-20%. RICHIE findings are consistent with severely reduced left ventricular ejection fraction, previously implanted mitral ring, up to moderate mitral stenosis and regurgitation, and moderate aortic insufficiency. Plan: - Continue cardiology consultation - continue IV diuretics (IV Lasix) - Monitor renal function Acute Hypoxic Respiratory Failure Assessment: Patient is currently intubated due to acute hypoxic respiratory failure. Dr. Downey from pulmonology is managing this aspect of care. Plan: - Maintain current intubation as per pulmonology recommendation - Proceed with CPAP trials when deemed appropriate by pulmonology Transaminitis Assessment: Patient has elevated liver function tests, likely secondary to amiodarone use. Cardiology has discontinued amiodarone in response. Plan: - Monitor liver function tests - Amiodarone discontinued as per cardiology Enterobacter PNA Assessment: Sputum culture positive for Enterobacter. Plan: - Continue treatment with Eratapenem to complete 10 days regimen -Infectious disease consult Hemodynamic Support Assessment: Patient requires vasopressor support for hemodynamic stability. Plan: - Continue vasopressin - Continue neosynephrine Paroxysmal a fib -DC amiodarone -continue with heparin gtt Shock liver GI consult, trend liver enzymes, hepatitis panel was negative. Ultrasound of the liver had no acute findings. Assessment/Plan Subjective: Patient is awake and alert. Objective: Pending evaluation for [facility]. Patient was admitted status post cardiac arrest. She is status post AICD placement and status post G-tube for aphasia. Patient had respiratory failure and aspiration and was recently extubated. PT eval is pending. Patient had some anemia noted today and stool for occult blood is also pending. Plan: Discharge planning to rehab facility. Dietary Evaluation Review Comments: 1) TF Jevity 1.2Cal @ 55 ml/hr. x 24hr along with Pro-stat 1 pk daily. Start @ 20ml/hr, increase 10ml/hr Q4H until goal is reached. TF @ goal volume provides 1684 kcal (100% energy needs), 88 gm protein (100% protein needs), 1065 ml free water. 2) Water flush 100ml Q4H if allowed, adjust PRN 3) Advance to cardiac diet as medically feasible 4) Monitor NPO status, lab values, wt trend, I/O Expected Outcomes/Goals: To meet >75% estimated needs within 7 days Lab values to improve Fu 2-3 days Plan discussed with: Patient, Other BRODIE GARVIN NP Nov 29, 2024 12:57
--- NOTE | 2024-11-29 23:23 | DVHPN2 ---
Subjective DOS: 11/29/2024 Patient seen and examined at bedside. Currently breathing on room air Overnight events reviewed Changes from previous H/P or p: No Changes Objective Vitals Vital Signs Date Time Temp Pulse Resp B/P (MAP) Pulse Ox O2 Delivery O2 Flow Rate FiO2 11/29/24 22:12 70 14 98 11/29/24 22:06 Room Air 0.0 11/29/24 22:06 21 11/29/24 20:42 98.1 140/89 (106) 98.1 Intake/Output Intake and Output 11/29/24 07:00 Intake Total 0 ml Output Total 1150 ml Balance -1150 ml Intake Oral 0 ml Output Urine Total 1150 ml # Bowel Movements 2 Exam Gen.: Patient lying in bed in no apparent distress. On room air. Head: Normocephalic, atraumatic. Eyes: EOMI/PERRLA. Ears: Normal hearing. Normal anatomy. Neck/trachea: Trachea midline, supple. Nose: Normal external anatomy. Mouth: Moist mucous membranes. Chest: Decreased air entry bilaterally. No wheezing or rhonchi. Cardiovascular: Positive S1, positive S2. Regular rate and rhythm. Abdomen: Positive bowel sounds in all 4 quadrants. Soft, non-tender, non- distended. : Deferred. Rectal: Deferred. Skin: Warm, dry. Intact. Extremities: 2+ radial pulses bilaterally. No lower extremity edema. Neuro: Awake, alert, oriented x1. No gross motor or sensory deficits. Cranial nerves II through XII intact. Gait not assessed. Medications Current Medications Medications Dose Ordered Sig/Liliam Route Start Time Stop Time Status Last Admin Dose Admin Amino Acids 0 ml @ 0 mls/hr PER PHARMACY IV 10/15/24 18:45 Cancel Dextrose 50 ml UD IV 10/16/24 09:30 Cancel Vancomycin HCl 0 ml @ 0 mls/hr UD IV 10/19/24 14:00 Cancel Metoprolol Tartrate 2.5 mg Q6HPRN PRN IV 10/31/24 09:15 Amino Acids 0 ml @ 0 mls/hr PER PHARMACY IV 11/04/24 22:00 Cancel Pantoprazole Sodium 40 mg BID IV 11/09/24 22:00 11/29/24 21:56 40 MG Mexiletine HCl 150 mg TID GT 11/10/24 22:00 11/29/24 22:02 150 MG Fat Emulsion Intravenous 150 ml/Sodium Acetate 20 meq/Potassium Acetate 30 meq/ Potassium Phosphate 19.8 meq/Calcium Gluconate 2.3 meq/ Magnesium Sulfate 4 meq/ Multivitamins 10 ml/Chromium/ Copper/Manganese/ Zinc 1 ml/Amino Acids/Dextrose/ Purified Water 1,596.4462 ml @ 66 mls/hr [id number] IV 11/11/24 22:00 11/12/24 21:59 Cancel Furosemide 40 mg BIDD IV 11/14/24 18:00 11/29/24 06:00 40 MG Acetaminophen 650 mg Q4HR PRN GT 11/17/24 08:30 11/22/24 07:10 650 MG Potassium Bicarbonate 50 meq BID PEG 11/18/24 22:00 11/29/24 21:56 50 MEQ Enteral Nutritional Formula 1,000 ml 55ML/HR GT 11/19/24 15:00 11/29/24 21:56 1,000 ML Lorazepam 1 mg ONCE PRN IV 11/20/24 10:30 Apixaban 2.5 mg BID PEG 11/26/24 22:00 11/29/24 21:57 2.5 MG Albuterol 2.5 mg Q4HWA NEB 11/28/24 14:00 11/29/24 22:06 2.5 MG Ipratropium [place] 0.5 mg Q4HWA NEB 11/28/24 14:00 11/29/24 22:06 0.5 MG Amino Acid Protein 30 ml DAILY GT 11/30/24 10:00 Laboratory Results Laboratory Tests 11/29/24 06:40 Chemistry Test 11/29/24 06:40 Albumin 2.7 g/dL (3.2-4.8) L Calcium Level 8.1 mg/dL (8.7-10.4) L Total Protein 5.4 g/dL (5.7-8.2) L LFT Test 11/29/24 06:40 Alanine Aminotransferase (ALT) 112 U/L (7-40) H Alkaline Phosphatase 151 U/L (46-116) H Aspartate Amino Transferase (AST) 45 U/L (13-40) H Total Bilirubin 1.4 mg/dL (0.2-1.0) H Urinalysis Test 10/09/24 22:25 11/15/24 04:00 Urine Creatinine 31.20 mg/dL (30.0-125.0) Urine Protein/Creatinine Ratio 0.72 Urine Sodium 79 mmol/L (40-220) Urine Total Protein 22.5 mg/dL (1-14) H Urine Color Yellow (Yellow) Urine Clarity Turbid (Clear) H Urine pH 5.0 (5.0-9.0) Urine Specific [place] 1.012 (1.001-1.035) Urine Protein Trace (Negative) H Urine Ketones Negative (Negative) Urine Blood 2+ /uL (Negative) H Urine Nitrite Negative (Negative) Urine Bilirubin Negative (Negative) Urine Urobilinogen Normal mg/dL (Negative) Urine Leukocyte Esterase 1+ /uL (Negative) Urine RBC 3 /hpf (0 - 4) Urine Microscopic WBC 14 /HPF (0-5) H Urine Squamous Epithelial Cells Few /hpf (<5) Urine Calcium Oxalate Crystals Few (None Seen) Urine Amorphous Crystals Few /hpf (None Seen) Urine Bacteria Few /hpf (None Seen) H Urine Hyaline Casts Mod /lpf (0 - 2) Urine Mucus Few (None Seen) Urine Glucose Normal mg/dL (Normal) Microbiology Microbiology Date/Time Source Procedure Growth Status 11/16/24 04:50 Urine - [place] Urine Culture - Final Enterococcus faecium - VRE Complete 11/14/24 11:50 Sputum Endotracheal Wash Gram Stain - Final Complete 11/14/24 11:50 Sputum Endotracheal Wash Respiratory Culture - Final Complete 11/14/24 08:50 Blood Blood Culture - Final NO GROWTH AFTER 5 DAYS OF INCUBATION. Complete 11/14/24 04:30 Nose MRSA Screen - Final Complete Assessment/Plan Assessment/Plan Impression: Acute hypoxic respiratory failure S/p cardiac arrest Ventricular tachycardia CPR <5 min Elevated troponin Atelectasis Anemia Events: Remains on room air. Supplemental oxygen PRN. No distress. Improved mentation, AAO x3 today Patient failed swallow evaluation Continue head of bed elevation Aspiration precautions Tube feeds via PEG for nutrition. Remains off pressors, hemodynamically stable. Continue antibiotics Continue bronchodilators Note, pt refusing medication - education given Cardiology recommendations appreciated. Lasix held d/t decreased blood pressure Monitor renal function. Monitor electrolytes. Supplement as necessary. Monitor ins and outs. Avoid volume overload. Potassium supplementation Protonix BID for GI prophylaxis Monitor hemoglobin Continue Eliquis BID. Plan for LTAC when bed available. Disposition per hospitalist Labs and imaging reviewed. Plan: S/p extubation on 11/26/24 Supplemental oxygen PRN Titrate to keep O2 sats above 92%. Continue antibiotics. F/u cultures. Completed steroids Pressors as necessary for hemodynamic support. Titrate to keep MAP greater than 65 mmHg. Monitor hemoglobin Accu-Cheks, ISS PRN. Monitor labs Monitor renal function. Maintain euvolemia Monitor electrolytes. Supplement as necessary. Monitor ins and outs. Maintain euvolemia Cardiology recommendations appreciated. On Protonix twice daily GI/DVT prophylaxis. On Eliquis twice daily. Prognosis: Poor given patient's multiple co-morbidities. Rest of plan per hospitalist and other consultants. Thank you, YURI Gomez, for allowing me to participate in this patient's care. Further recommendations will depend on the patient's clinical course. Please do not hesitate to contact me if you have any questions or concerns. This medical document was created using an electronic medical record system with [employer] dictation system. Although these documentations are being carefully reviewed, there may still be some phonetic and typographical changes. The errors are purely typographical, due to imperfection on the software program, and do not reflect any compromise in the patient's medical care. Plan discussed with: Patient, Other (RN) Visit Coding Pulmonary Billing Provider: KENNY FROST MD Date of Service if different f: Nov 29, 2024 Common Visit Codes: [id number] INP/OBS CARE(HIGH) KENNY FROST MD Nov 29, 2024 23:23
[2024-11-30] VITALS (10 sets, daily range): BP systolic 94–112; BP diastolic 47–70; PULSE 56–89; RESP 14–20; TEMP 97–98.5; O2SAT 90–98
--- NOTE | 2024-11-30 07:22 | DVHPN2 ---
Progress Note - Dictate Date Seen: Nov 30, 2024 Has the PT tested + for MRSA If YES, has PT been informed?: No Medical Necessity Reason Pt with a Central, PICC or Fol: No The following are medically ne: PICC Line, Cutler Catheter Reason for cutler catheter: Strict I&O vital signs Vital Sign Date Time Temp Pulse Resp B/P (MAP) Pulse Ox O2 Delivery O2 Flow Rate FiO2 11/30/24 06:20 82 14 97 11/30/24 06:14 Room Air 0.0 11/30/24 06:14 21 11/30/24 06:00 94/47 11/30/24 04:36 98.2 98.2 Total Intake and Output 11/29/24 11/29/24 11/30/24 15:00 23:00 07:00 Intake Total 0 ml Output Total 800 ml 350 ml Balance -800 ml -350 ml medications Current Medications Medications Dose Ordered Sig/Liliam Route Start Time Stop Time Status Last Admin Dose Admin Amino Acids 0 ml @ 0 mls/hr PER PHARMACY IV 10/15/24 18:45 Cancel Dextrose 50 ml UD IV 10/16/24 09:30 Cancel Vancomycin HCl 0 ml @ 0 mls/hr UD IV 10/19/24 14:00 Cancel Metoprolol Tartrate 2.5 mg Q6HPRN PRN IV 10/31/24 09:15 Amino Acids 0 ml @ 0 mls/hr PER PHARMACY IV 11/04/24 22:00 Cancel Pantoprazole Sodium 40 mg BID IV 11/09/24 22:00 11/29/24 21:56 40 MG Mexiletine HCl 150 mg TID GT 11/10/24 22:00 11/30/24 07:10 150 MG Fat Emulsion Intravenous 150 ml/Sodium Acetate 20 meq/Potassium Acetate 30 meq/ Potassium Phosphate 19.8 meq/Calcium Gluconate 2.3 meq/ Magnesium Sulfate 4 meq/ Multivitamins 10 ml/Chromium/ Copper/Manganese/ Zinc 1 ml/Amino Acids/Dextrose/ Purified Water 1,596.4462 ml @ 66 mls/hr [id number] IV 11/11/24 22:00 11/12/24 21:59 Cancel Furosemide 40 mg BIDD IV 11/14/24 18:00 11/29/24 06:00 40 MG Acetaminophen 650 mg Q4HR PRN GT 11/17/24 08:30 11/22/24 07:10 650 MG Potassium Bicarbonate 50 meq BID PEG 11/18/24 22:00 11/29/24 21:56 50 MEQ Enteral Nutritional Formula 1,000 ml 55ML/HR GT 11/19/24 15:00 11/29/24 21:56 1,000 ML Lorazepam 1 mg ONCE PRN IV 11/20/24 10:30 Apixaban 2.5 mg BID PEG 11/26/24 22:00 11/29/24 21:57 2.5 MG Albuterol 2.5 mg Q4HWA [facility] 11/28/24 14:00 11/30/24 06:14 2.5 MG Ipratropium [place] 0.5 mg Q4HWA [facility] 11/28/24 14:00 11/30/24 06:14 0.5 MG Amino Acid Protein 30 ml DAILY GT 11/30/24 10:00 laboratory and microbiology Laboratory Tests 11/29/24 06:40 Test 11/29/24 06:40 Range/Units Serum Glucose 106 74-106 mg/dL Assessment/Plan Alert, NAD Patient is a 54-year-old female who was brought to the hospital for witnessed syncope. She is intubated and is being managed in ICU. Information was obtained by reviewing the chart and communicating with patient's son (over the phone). Family recognized witnessed syncope and started CPR and called EMS. Reportedly, EMS found the patient in ventricular fibrillation and shocked the patient and brought the patient to the hospital. Patient was intubated in emergency room and transferred to ICU. Patient was on amiodarone drip. Later the patient had ventricular tachycardia (Systane). High sensitive troponin had been minimally/flatly elevated. Presentation was not in favor of acute coronary syndrome. Cardiology is involved for cardiac aspects of care. NAD No JVD. Mucosa pale. No carotid bruit. Scattered rhonchi in the lungs is heard. Cardiac: Regular, no thrill. Systolic murmur 2/6 in apex is heard. Abdomen is soft. 3+ edema in extremities. Past medical history as per son: Congenital heart disease, status post bypass Troponin (high sensitive): 141 - 138 - 117 BNP: 457.16 - 1073.91 - 928.14 Digoxin level: 2.83 - 1.25 - 0.98 UDS: non-revealing Chest x-ray revealed: Lines and Tubes: Endotracheal tube tip projects approximately 1.4 cm above the level of the tyler. Enteric catheter courses below the lateral of the diaphragm and terminates beyond the inferior margin of the image. Right internal jugular central venous catheter terminates within the distal superior vena cava. Lungs: Moderate diffuse increased prominence of the pulmonary vasculature without evidence of focal consolidation. Pleura: No effusion. No pneumothorax. Cardiomediastinal contours: Cardiomegaly. Bones: Unremarkable IMPRESSION: 1. Cardiomegaly and diffuse increased prominence of the pulmonary vasculature. 2. Lines and tubes as above. Repeat chest x-ray revealed: IMPRESSION: 1. Endotracheal tube tip 1.6 cm above the tyler; consider 2 cm retraction 2. Mild pulmonary vascular congestion. Moderate cardiomegaly. Repeat chest xry revealed: IMPRESSION: Endotracheal tube tip 1.6 cm above the tyler; consider 2 cm retraction Mild pulmonary vascular congestion. Moderate cardiomegaly. Repeat chest xry revealed: IMPRESSION: 1. Stable cardiomegaly, small left pleural effusion and mild diffuse increased prominence of the pulmonary vasculature. 2. Repositioned endotracheal tube as above. Remaining lines and tubes unchanged. Repeat chest xry revealed: IMPRESSION: 1. Cardiomegaly, stable diffuse increased prominence of the pulmonary vasculature and small bilateral pleural effusions. 2. Slight interval advancement of endotracheal tube as above. Remaining lines and tubes unchanged. Repeat chest xry revealed: IMPRESSION: 1. Slight interval decrease in diffuse increased prominence of the pulmonary vasculature. 2. Stable cardiomegaly and small left pleural effusion. 3. Lines and tubes unchanged. Repeat chest xry revealed: IMPRESSION: 1. Cardiomegaly and small left pleural effusion. 2. Lines and tubes unchanged. Repeat chest xry revealed: IMPRESSION: Stable lines and tubes. Similar lung aeration. Repeat chest xry revealed: IMPRESSION: Cardiomegaly and small left pleural effusion. Lines and tubes unchanged. Repeat chest xry revealed: IMPRESSION: Placement of a cardiac pacer, no pneumothorax is seen. Stable lines and tubes. Repeat chest xry revealed: IMPRESSION: 1. Worsening mixed opacities in the right lower lung. No other significant change from the previous study. Stable support devices. Repeat chest xry revealed: Heart is prominent in size with postsurgical changes, median sternotomy wires, and a single lead left cardiac defibrillator. Support lines and tubes appear unchanged in satisfactory in position. No sizable effusion or pneumothorax. Mild pulmonary vascular congestion. No significant interval change. Repeat chest xry revealed: IMPRESSION: 1. No significant change from the previous study. Stable support devices. Similar findings of heart failure including left pleural effusion. Repeat chest xry revealed: IMPRESSION: 1. No significant change from the previous study. Stable support devices. Similar findings of heart failure including trace left pleural effusion. Repeat chest xry revealed: Lines and Tubes: Unchanged. Left anterior chest wall cardiac pacing device. Lungs: Clear Pleura: No effusion. No pneumothorax. Cardiomediastinal contours: Cardiomegaly. Bones: Unremarkable IMPRESSION: 1. Cardiomegaly. 2. Lines and tubes unchanged. Repeat chest xry revealed: IMPRESSION: Lines and tubes in satisfactory position. No significant interval change. Repeat chest xry revealed: Lines and Tubes: ET tube and NG tube removed. Lungs: Congestion Pleura: No effusion. No pneumothorax. Cardiomediastinal contours: Cardiomegaly Bones: Unremarkable IMPRESSION: 1. Cardiomegaly with CHF. Repeat chest xry revealed: IMPRESSION: 1. Cardiomegaly. 2. Patchy bilateral airspace disease. Repeat chest xry revealed: FINDINGS: Lines and Tubes: None. Left anterior chest wall cardiac pacing device. Lungs: Extensive multifocal bilateral pulmonary airspace disease in a predominantly perihilar and bibasilar distribution with consolidative features. Pleura: No effusion. No pneumothorax. Cardiomediastinal contours: Poorly evaluated secondary to extensive bilateral infiltrate. Bones: Unremarkable IMPRESSION: 1. Extensive multifocal bilateral pulmonary airspace disease in a predominantly perihilar and bibasilar distribution with consolidative features. Repeat chest xry revealed: IMPRESSION: 1. Status post interval intubation. Endotracheal tube tip projects approximately 2.4 cm above the level of the tyler. 2. Grossly stable appearing moderate patchy multifocal bilateral pulmonary airspace disease with consolidative features. 3. Cardiomegaly. Repeat chest xry revealed: IMPRESSION: No significant interval change. Repeat chest xry revealed: IMPRESSION: No significant interval change Repeat chest xry revealed: IMPRESSION: 1. Interval retraction of the endotracheal tube such that the tip now projects approximately 4.5 cm above the level of the tyler. 2. Cardiomegaly. Repeat chest xry revealed: IMPRESSION: 1. Mild interval advancement of the endotracheal tube such that the tip now projects approximately 3.3 cm above the level of the tyler. 2. No evidence of acute cardiopulmonary process. Repeat chest xry revealed: IMPRESSION: Lines and tubes in satisfactory position. No significant interval change. Repeat chest xry revealed: IMPRESSION: 1. Interval advancement of endotracheal tube such that the tip now projects approximately 3.7 cm above the level of the tyler. Remaining lines and tubes unchanged. 2. Cardiomegaly. Repeat chest xry revealed: IMPRESSION: Unchanged pulmonary vascular congestion. Repeat chest xry revealed: IMPRESSION: No significant interval change. Repeat chest xry revealed: IMPRESSION: 1. Interval retraction of endotracheal tube such that the tip now projects approximately 4.5 cm above the level of the tyler. Remaining lines and tubes unchanged. 2. Cardiomegaly. Repeat chest xry revealed: IMPRESSION: 1. Appropriate position of the support lines and tubes. 2. No acute pulmonary disease. 3. Stable cardiomegaly. Gall Bladder Ultrasound revealed: IMPRESSION: Gallstones are noted. Hepatic steatosis Trace ascites Trace bilateral pleural effusions. Hepatic cirrhosis. Liver Ultrasound revealed: Hepatic steatosis. Trace right pleural effusion. Trace ascites Gallstones Bladder ultrasound revealed: IMPRESSION: 1. Cutler catheter in the bladder in the bladder is decompressed. Repeat Bladder Ultrasound revealed: Urinary bladder is unremarkable with prevoid volume of 29 mL. Urinary bladder wall measures 1.5 mm. Cutler catheter is noted. KUB revealed: IMPRESSION: Nonobstructive bowel gas pattern. Nasogastric tube tip in the stomach. Large stool burden. Repeat KUB revealed: Right lower extremity PICC line with tip projecting over the expected region of the intrahepatic IVC. Nasogastric tube projecting towards the distal stomach. Nonspecific bowel gas pattern. Cardiomegaly and left basilar airspace opacities, incompletely characterized. Atherosclerotic calcification disease. Repeat KUB revealed: IMPRESSION: 1. Nonspecific nonobstructive bowel gas pattern. 2. Gastrostomy tube projects over the midportion of the left hemiabdomen. 3. Right femoral approach central venous catheter as described above. Repeat KUB revealed: IMPRESSION: Nonobstructive bowel gas pattern. Right central venous catheter tip in the IVC Cutler catheter overlying the bladder. Left upper ext arterial duplex: IMPRESSION: No hemodynamically significant stenosis based on peak systolic velocity criteria. Left lower ext arterial duplex: IMPRESSION: There is no evidence for peripheral vascular insufficiency in the left lower extremity. No significant focal stenosis is identified. Liver Ultrasound revealed: Hepatic steatosis. Hepatomegaly. Cholelithiasis. CT of the head revealed: IMPRESSION: No acute intracranial abnormality. Repeat CT of head revealed: IMPRESSION: No acute intracranial abnormality. Repeat CT of Head revealed: IMPRESSION: No acute intracranial abnormality. Repeat CT of head revealed: IMPRESSION: 1. No acute intracranial abnormality. 2. No findings to suggest territorial ischemia. Echocardiogram reported: lvef 15-20% dilated LV severe global dysfunction mild RV dysfunction biatrial enlargement mild moderate MAC, moderate mitral regurg mild to moderate aortic regug (images of echo reviewed and questioned presence of mitral ring and also some component (moderate of Mitral stenosis) EKG revealed sinus rhythm Telemetry revealed occasions of atrial fibrillation. There was occasional sustained ventricular tachycardia. EMS tele monitor revealed ventricular fibrillation for which the patient was shocked. Has remained sinus rhythm. Later with A-fib with MVR LHC revealed: Patent [place] to LAD; Patent SVG to obtuse marginal; LVEF of 20% with increased EDP; Proximal disease in LAD/LCX RICHIE was performed: Consistent with severely reduced LVEF. Consistent with previously implanted Mitral ring, Up to moderate Mitral stenosis/Mitral Regurgitation and also Moderate Aortic insufficiency. Patient is a 54-year-old female who presented with witnessed syncope. She was found to have ventricular fibrillation for which was shocked. Later had repeated episode of sustained ventricular tachycardia. Patient has been kept in ICU. Does have baseline history of coronary artery disease for which has had bypass surgery. Left heart catheterization was performed which revealed patent [place] and patent SVG. ACS is not considered at this point. It is of note that the patient's echocardiogram reveals significantly use systolic function. Valvular heart disease is considered. Findings are in favor of previously implanted mitral ring. By reviewing the echo images, component of up to moderate mitral stenosis could not be ruled out. LHC was performed that ruled out any active specific ischemia as an etiology for presentation. Is off Amiodarone for abnormal LFT. Being followed by Nephrology / Pulmonary / Neurology / GI ID. Tele has remained sinus rhythm. Had episode of a-fib with RVR. Was loaded with Digoxin. Dig level was performed at wrong timing (only 5 hours after the last Dig given). Dig toxicity is not considered. Patient is back to normal sinus rhythm. Has good kidney function. Repeat Dig level is acceptable level. s/p ICD implantation by EP. Intubated, later extubated. s/p PEG. Later had respiratory failure and was taken back to ICU. Imaging question pneumonia (can it be aspiration?). Eventhough repeat BNP has not increased (decreased somehow), patient does have peripheral edema and component of acute on chronic Systolic heart failure could also contribute to respiratory failure. The site of ICD implantation was reviewed by EP (Dr Armstrong on 05/13/2024): healing well (personal communication). Had repeat respiratory failure, back in ICU and intubated. Abnormal LFT. Found to have gall stone and Liver cirrhosis. Extubated and transferred back to tele floor Syncope V-fib s/p shock Sustained V-tach Paroxysmal A-fib VHD, s/p Mitral ring Systolic heart failure Abnormal LFT, at a point resolved, later appeared again s/p ICD (Biotronik) implantation by EP (Dr Armstrong) s/p PRBC transfusion for significant anemia Hepatic Steatosis Gallstones Failed Swallowing s/p PEG Acute respiratory failure Acute on chronic systolic heart failure Gallstone Liver cirrhosis s/p repeated intubation and extubations Cardiac suggestion for management: Manage in Tele IV diuresis Follow up electrolytes and kidney function test and correct abnormalities Full anticoagulation (a-fib with high CHADS-Vasc score). s/p ICD implantation. On Eliquis On Mexiletine Cardiac arenas, stable s/p ICD (Biotronik) implantation by EP Eliquis: 2.5 mg BID s/p PEG Pulmonary Follow up GI follow up Cardiac arenas (hemodynamically): stable Management of repeat respiratory failure, pneumonia as per primary team/pulmonary Provide previous medical records from reaching out to previous hospitals in [facility]... Further evaluation and management depends on the above and clinical course. A total of 75 minutes was spent reviewing the patient record, examining the patient, making a diagnostic and therapeutic plan, discussing this plan with medical personnel, following up on diagnostic studies and following the patient for clinical stability excluding any and all procedures. At least 50% of this time was spent in direct, [id number] contact. Thank you for allowing me to participate in this patient's care. Further recommendations will depend on patient's clinical course. Please do not hesitate to contact me if you have any questions or concerns. This medical document was created using electronic medical record system with [employer] dictation system. Although this document has been carefully reviewed, there may still be some phonetic and typographical errors. These areas are purely typographical due to the imperfection of the software programs, and do not reflect any compromise in the patient's medical care. Dietary Evaluation Review Comments: 1) TF Jevity 1.2Cal @ 55 ml/hr. x 24hr along with Pro-stat 1 pk daily. Start @ 20ml/hr, increase 10ml/hr Q4H until goal is reached. TF @ goal volume provides 1684 kcal (100% energy needs), 88 gm protein (100% protein needs), 1065 ml free water. 2) Water flush 100ml Q4H if allowed, adjust PRN 3) Advance to cardiac diet as medically feasible 4) Monitor NPO status, lab values, wt trend, I/O Expected Outcomes/Goals: To meet >75% estimated needs within 7 days Lab values to improve Fu 2-3 days Plan discussed with: Patient, Other (nurse) CORDELL VERA MD Nov 30, 2024 07:22
[2024-11-30 07:48] LABS: Hematocrit 28.8 % (36.0-46.0); Hemoglobin 9.5 g/dL (12.2-16.2); Mean Corpuscular Hemoglobin 31.2 pg (28.0-32.0); Mean Corpuscular Volume 94.5 fL (80.0-100.0)
[2024-11-30 08:05] LABS: Anion Gap 12 (5-15); BUN/Creatinine Ratio 28.3 (10.0-20.0); Blood Urea Nitrogen 15 mg/dL (9-23); Carbon Dioxide 26 mmol/L (20-31); Chloride 101 mmol/L (98-107); Potassium 3.7 mmol/L (3.5-5.1); Sodium 139 mmol/L (136-145)
[2024-11-30 08:08] LABS: Alanine Aminotransferase 93 U/L (7-40); Albumin 2.8 g/dL (3.2-4.8); Alkaline Phosphatase 151 U/L (46-116); Bilirubin, Total 1.4 mg/dL (0.2-1.0); Calcium 8.1 mg/dL (8.7-10.4); Glucose 114 mg/dL (74-106); Total Protein 5.5 g/dL (5.7-8.2)
[2024-11-30] MEDS: Pro-Stat SF 30ml Vanilla GT SCH (10:00)
--- NOTE | 2024-11-30 10:13 | DVHPN2 ---
Progress Note Date Seen: Nov 30, 2024 Resident Creating Document: ETHAN SWAN RESIDENT Has the PT tested + for MRSA If YES, has PT been informed?: No Medical Necessity Reason Pt with a Central, PICC or Fol: No The following are medically ne: PICC Line, Cutler Catheter Reason for cutler catheter: Strict I&O Subjective Review of Systems Patient seen and examined at bedside AO x3 Denies any abdominal pain Denies any nausea or vomiting Liver functions have down trended appropriately almost to baseline Stable H&H Objective vital signs Vital Sign Date Time Temp Pulse Resp B/P (MAP) Pulse Ox O2 Delivery O2 Flow Rate FiO2 11/30/24 08:09 98.4 84 18 96/57 (70) 95 98.4 11/30/24 06:14 Room Air 0.0 11/30/24 06:14 21 Total Intake and Output 11/29/24 11/29/24 11/30/24 15:00 23:00 07:00 Intake Total 0 ml Output Total 800 ml 350 ml Balance -800 ml -350 ml medications Current Medications Medications Dose Ordered Sig/Liliam Route Start Time Stop Time Status Last Admin Dose Admin Amino Acids 0 ml @ 0 mls/hr PER PHARMACY IV 10/15/24 18:45 Cancel Dextrose 50 ml UD IV 10/16/24 09:30 Cancel Vancomycin HCl 0 ml @ 0 mls/hr UD IV 10/19/24 14:00 Cancel Metoprolol Tartrate 2.5 mg Q6HPRN PRN IV 10/31/24 09:15 Amino Acids 0 ml @ 0 mls/hr PER PHARMACY IV 11/04/24 22:00 Cancel Pantoprazole Sodium 40 mg BID IV 11/09/24 22:00 11/29/24 21:56 40 MG Mexiletine HCl 150 mg TID GT 11/10/24 22:00 11/30/24 07:10 150 MG Fat Emulsion Intravenous 150 ml/Sodium Acetate 20 meq/Potassium Acetate 30 meq/ Potassium Phosphate 19.8 meq/Calcium Gluconate 2.3 meq/ Magnesium Sulfate 4 meq/ Multivitamins 10 ml/Chromium/ Copper/Manganese/ Zinc 1 ml/Amino Acids/Dextrose/ Purified Water 1,596.4462 ml @ 66 mls/hr [id number] IV 11/11/24 22:00 11/12/24 21:59 Cancel Furosemide 40 mg BIDD IV 11/14/24 18:00 11/29/24 06:00 40 MG Acetaminophen 650 mg Q4HR PRN GT 11/17/24 08:30 11/22/24 07:10 650 MG Potassium Bicarbonate 50 meq BID PEG 11/18/24 22:00 11/29/24 21:56 50 MEQ Enteral Nutritional Formula 1,000 ml 55ML/HR GT 11/19/24 15:00 11/29/24 21:56 1,000 ML Lorazepam 1 mg ONCE PRN IV 11/20/24 10:30 Apixaban 2.5 mg BID PEG 11/26/24 22:00 11/29/24 21:57 2.5 MG Albuterol 2.5 mg Q4HWA [facility] 11/28/24 14:00 11/30/24 06:14 2.5 MG Ipratropium [place] 0.5 mg Q4HWA [facility] 11/28/24 14:00 11/30/24 06:14 0.5 MG Amino Acid Protein 30 ml DAILY GT 11/30/24 10:00 Examination General Appearance: AO x3 Head Exam: Normal inspection. Constricted equal and reactive pupils Neck Exam: Normal inspection. Non-tender. Normal alignment Pulmonary/Respiratory: Chest non-tender. Trace crackles Abdominal Exam: Normal bowel sounds. Soft. Nontender Skin Exam: Normal inspection. Normal color. Warm. Dry laboratory and microbiology Laboratory Tests 11/30/24 06:49 Test 11/30/24 06:49 Range/Units Serum Glucose 114 H 74-106 mg/dL Microbiology Date/Time Source Procedure Growth Status 11/16/24 04:50 Urine - Cutler Port Urine Culture - Final Enterococcus faecium - VRE Complete 11/14/24 11:50 Sputum Endotracheal Wash Gram Stain - Final Complete 11/14/24 11:50 Sputum Endotracheal Wash Respiratory Culture - Final Complete 11/14/24 08:50 Blood Blood Culture - Final NO GROWTH AFTER 5 DAYS OF INCUBATION. Complete 11/14/24 04:30 Nose MRSA Screen - Final Complete Labs and/or images reviewed: Labs reviewed by me, Image(s) reviewed by me Problem List/Assessment/Plan Problem List/Assessment/Plan Acute hepatocellular injury likely shock liver Hepatic cirrhosis? Coagulopathy due to above Ventricular fibrillation S/p cardiopulmonary arrest with shock Heart failure with reduced ejection fraction 15-20% Metabolic versus hypoxic encephalopathy Cholelithiasis without acute inflammation Nonalcoholic fatty liver disease with steatohepatitis Community-acquired pneumonia growing Enterobacter Aspiration pnemonia? sepsis Complicated UTI, culture growing VRE Plan: Ordered stool occult blood S/p extubation Discontinued free water continue antibiotics consider MRCP once stable Tapered hydrocortisone to q.12 hours on 11/06/2024 Tapered hydrocortisone to once daily on 11/13/2024 Discontinued hydrocortisone on 11/20/2024 s/p PEG tube placement; working appropriately monitor LFT's Keep PT/INR therapeutic Hemoglobin stable, transfuse if HB 7 or less Continue tube feedings at 55cc/hr Discontinued metoclopramide JAIDEN positive, outpatient follow up with GI recommended for further workup Discharge planning to [facility] facility recommended Thank you so much for the opportunity to consult on your patient. GI team will follow the patient. In case of any questions or concerns please feel free to reach out. Plan discussed with Dr. Anglin Plan discussed with: Patient, Other (RN) My Orders My Orders Orders - ETHAN WSAN RESIDENT Procedure Category Date Status Time Stool Occult Blood LAB 11/29/24 In Process 11:44 Amino Acids-Protein PHA 11/30/24 In Process Hydrolysat (Pro-Stat 10:00 Complete Blood Count LAB 11/30/24 In Process 04:00 Manual Differential LAB 11/30/24 In Process 06:49 Dietary Evaluation Review Comments: 1) TF Jevity 1.2Cal @ 55 ml/hr. x 24hr along with Pro-stat 1 pk daily. Start @ 20ml/hr, increase 10ml/hr Q4H until goal is reached. TF @ goal volume provides 1684 kcal (100% energy needs), 88 gm protein (100% protein needs), 1065 ml free water. 2) Water flush 100ml Q4H if allowed, adjust PRN 3) Advance to cardiac diet as medically feasible 4) Monitor NPO status, lab values, wt trend, I/O Expected Outcomes/Goals: To meet >75% estimated needs within 7 days Lab values to improve Fu 2-3 days ETHAN SWAN RESIDENT Nov 30, 2024 10:13
[2024-11-30 10:21] LABS: Anisocytosis Moderate; Total Cells Counted 100.0 (100)
--- NOTE | 2024-11-30 14:15 | DVHPN2 ---
Progress Note - Dictate Date Seen: Nov 30, 2024 Has the PT tested + for MRSA If YES, has PT been informed?: No Medical Necessity Reason Pt with a Central, PICC or Fol: No The following are medically ne: PICC Line, Cutler Catheter Reason for cutler catheter: Strict I&O vital signs Vital Sign Date Time Temp Pulse Resp B/P (MAP) Pulse Ox O2 Delivery O2 Flow Rate FiO2 11/30/24 12:41 98.3 79 20 105/63 (77) 98 98.3 11/30/24 08:00 Room Air* 0 21 Total Intake and Output 11/29/24 11/29/24 11/30/24 15:00 23:00 07:00 Intake Total 0 ml Output Total 800 ml 350 ml Balance -800 ml -350 ml medications Current Medications Medications Dose Ordered Sig/Liliam Route Start Time Stop Time Status Last Admin Dose Admin Amino Acids 0 ml @ 0 mls/hr PER PHARMACY IV 10/15/24 18:45 Cancel Dextrose 50 ml UD IV 10/16/24 09:30 Cancel Vancomycin HCl 0 ml @ 0 mls/hr UD IV 10/19/24 14:00 Cancel Amino Acids 0 ml @ 0 mls/hr PER PHARMACY IV 11/04/24 22:00 Cancel Pantoprazole Sodium 40 mg BID IV 11/09/24 22:00 11/30/24 10:01 40 MG Mexiletine HCl 150 mg TID GT 11/10/24 22:00 11/30/24 12:54 150 MG Fat Emulsion Intravenous 150 ml/Sodium Acetate 20 meq/Potassium Acetate 30 meq/ Potassium Phosphate 19.8 meq/Calcium Gluconate 2.3 meq/ Magnesium Sulfate 4 meq/ Multivitamins 10 ml/Chromium/ Copper/Manganese/ Zinc 1 ml/Amino Acids/Dextrose/ Purified Water 1,596.4462 ml @ 66 mls/hr [id number] IV 11/11/24 22:00 11/12/24 21:59 Cancel Furosemide 40 mg BIDD IV 11/14/24 18:00 11/29/24 06:00 40 MG Acetaminophen 650 mg Q4HR PRN GT 11/17/24 08:30 11/22/24 07:10 650 MG Potassium Bicarbonate 50 meq BID PEG 11/18/24 22:00 11/30/24 10:01 50 MEQ Enteral Nutritional Formula 1,000 ml 55ML/HR GT 11/19/24 15:00 11/29/24 21:56 1,000 ML Lorazepam 1 mg ONCE PRN IV 11/20/24 10:30 Apixaban 2.5 mg BID PEG 11/26/24 22:00 11/30/24 10:02 2.5 MG Albuterol 2.5 mg Q4HWA [facility] 11/28/24 14:00 11/30/24 06:14 2.5 MG Ipratropium [place] 0.5 mg Q4HWA [facility] 11/28/24 14:00 11/30/24 06:14 0.5 MG Amino Acid Protein 30 ml DAILY GT 11/30/24 10:00 11/30/24 12:56 30 ML objective HEENT: EOMI, PERRLA, normal external inspect of ears, no icterus, no nasal drainage Neck: no carotid bruit, no jugular venous distention (JVD), no lymphadenopathy Chest: normal thorax Respiratory: Intubated, clear to auscultation, normal air movement Cardiovascular: regular rate and rhythm, no diastolic murmur, no jugular venous distention (JVD), no rub, no systolic murmur Abdominal: soft, no hepatomegaly, no mass, no splenomegaly, no tenderness Genitourinary: grossly normal external Musculoskeletal: no joint tenderness, no swelling Extremities: normal pulses, no calf tenderness, no clubbing, no cyanosis, no edema Skin: no bruising, no jaundice, no rash Neurological: No focal deficit laboratory and microbiology Laboratory Tests 11/30/24 06:49 Test 11/30/24 06:49 Range/Units Serum Glucose 114 H 74-106 mg/dL Problem List Cardiac Arrest with Ventricular Fibrillation Assessment: Patient experienced cardiac arrest with ventricular fibrillation on 10/07/24, witnessed by family members who initiated CPR. EMS found the patient in ventricular fibrillation and administered shock therapy. Rhythm strip analysis confirmed ventricular fibrillation. Patient required intubation and sedation upon ED arrival. Currently admitted to ICU for close observation. Cardiology has been consulted and plans for AICD placement, likely on Tuesday. Infectious disease clearance has been obtained for the AICD procedure, addressing initial concerns of leukocytosis which is now improving. Status post-cardiac arrest. Plan: - Continue ICU monitoring - Proceed with AICD placement as planned (likely Tuesday), cleared by infectious disease. - Maintain intubation and sedation until AICD placement - Continue Heparin drip for paroxysmal atrial fibrillation - Continue Mexitil - DC amiodarone due to transaminitis - added esmolol drip per Cardiology for AFib and added push doses of digoxin Coronary Artery Disease Assessment: Patient with history of 2-vessel CABG (Coronary Artery Bypass Grafting). Surgical intervention previously performed to address significant coronary artery stenosis. Plan: - Continue medical management - Follow up with cardiology for ongoing coronary artery disease management Acute and Chronic Systolic Heart Failure Assessment: Patient has acute and chronic systolic heart failure with severely reduced left ventricular function. Ejection fraction is estimated at 15-20%. RICHIE findings are consistent with severely reduced left ventricular ejection fraction, previously implanted mitral ring, up to moderate mitral stenosis and regurgitation, and moderate aortic insufficiency. Plan: - Continue cardiology consultation - continue IV diuretics (IV Lasix) - Monitor renal function Acute Hypoxic Respiratory Failure Assessment: Patient is currently intubated due to acute hypoxic respiratory failure. Dr. Downey from pulmonology is managing this aspect of care. Plan: - Maintain current intubation as per pulmonology recommendation - Proceed with CPAP trials when deemed appropriate by pulmonology Transaminitis Assessment: Patient has elevated liver function tests, likely secondary to amiodarone use. Cardiology has discontinued amiodarone in response. Plan: - Monitor liver function tests - Amiodarone discontinued as per cardiology Enterobacter PNA Assessment: Sputum culture positive for Enterobacter. Plan: - Continue treatment with Eratapenem to complete 10 days regimen -Infectious disease consult Hemodynamic Support Assessment: Patient requires vasopressor support for hemodynamic stability. Plan: - Continue vasopressin - Continue neosynephrine Paroxysmal a fib -DC amiodarone -continue with heparin gtt Shock liver GI consult, trend liver enzymes, hepatitis panel was negative. Ultrasound of the liver had no acute findings. Assessment/Plan Subjective: Patient is awake and alert. Objective: Patient is requesting reevaluation of speech to see if her diet can be advanced. Patient was admitted on October 07, 2024 status post cardiac arrest. She is status post AICD placement. Patient also has sepsis with septic shock and had Enterococcus pneumonia. She was found to have VRE in the urine. Patient has been extubated twice from the ventilator. She is A&O x4. Patient was treated with antibiotics for sepsis. Plan: Continue current treatment. Continue PT/OT. Discharge planning to rehab facility. Dietary Evaluation Review Comments: 1) TF Jevity 1.2Cal @ 55 ml/hr. x 24hr along with Pro-stat 1 pk daily. Start @ 20ml/hr, increase 10ml/hr Q4H until goal is reached. TF @ goal volume provides 1684 kcal (100% energy needs), 88 gm protein (100% protein needs), 1065 ml free water. 2) Water flush 100ml Q4H if allowed, adjust PRN 3) Advance to cardiac diet as medically feasible 4) Monitor NPO status, lab values, wt trend, I/O Expected Outcomes/Goals: To meet >75% estimated needs within 7 days Lab values to improve Fu 2-3 days Plan discussed with: Patient, Other BRODIE GARVIN HEDIS ABSTRACTOR Nov 30, 2024 14:15
--- NOTE | 2024-11-30 19:11 | DVHPN2 ---
Progress Note - Dictate Date Seen: Nov 30, 2024 Has the PT tested + for MRSA If YES, has PT been informed?: No Medical Necessity Reason Pt with a Central, PICC or Fol: No The following are medically ne: PICC Line, Cutler Catheter Reason for cutler catheter: Strict I&O vital signs Vital Sign Date Time Temp Pulse Resp B/P (MAP) Pulse Ox O2 Delivery O2 Flow Rate FiO2 11/30/24 18:00 109/70 11/30/24 16:55 98.5 83 18 92 98.5 11/30/24 08:00 Room Air* 0 21 Total Intake and Output 11/29/24 11/29/24 11/30/24 15:00 23:00 07:00 Intake Total 0 ml Output Total 800 ml 350 ml Balance -800 ml -350 ml medications Current Medications Medications Dose Ordered Sig/Liliam Route Start Time Stop Time Status Last Admin Dose Admin Amino Acids 0 ml @ 0 mls/hr PER PHARMACY IV 10/15/24 18:45 Cancel Dextrose 50 ml UD IV 10/16/24 09:30 Cancel Vancomycin HCl 0 ml @ 0 mls/hr UD IV 10/19/24 14:00 Cancel Amino Acids 0 ml @ 0 mls/hr PER PHARMACY IV 11/04/24 22:00 Cancel Pantoprazole Sodium 40 mg BID IV 11/09/24 22:00 11/30/24 10:01 40 MG Mexiletine HCl 150 mg TID GT 11/10/24 22:00 11/30/24 12:54 150 MG Fat Emulsion Intravenous 150 ml/Sodium Acetate 20 meq/Potassium Acetate 30 meq/ Potassium Phosphate 19.8 meq/Calcium Gluconate 2.3 meq/ Magnesium Sulfate 4 meq/ Multivitamins 10 ml/Chromium/ Copper/Manganese/ Zinc 1 ml/Amino Acids/Dextrose/ Purified Water 1,596.4462 ml @ 66 mls/hr [id number] IV 11/11/24 22:00 11/12/24 21:59 Cancel Furosemide 40 mg BIDD IV 11/14/24 18:00 11/29/24 06:00 40 MG Acetaminophen 650 mg Q4HR PRN GT 11/17/24 08:30 11/22/24 07:10 650 MG Potassium Bicarbonate 50 meq BID PEG 11/18/24 22:00 11/30/24 10:01 50 MEQ Enteral Nutritional Formula 1,000 ml 55ML/HR GT 11/19/24 15:00 11/29/24 21:56 1,000 ML Lorazepam 1 mg ONCE PRN IV 11/20/24 10:30 Apixaban 2.5 mg BID PEG 11/26/24 22:00 11/30/24 10:02 2.5 MG Albuterol 2.5 mg Q4HWA [facility] 11/28/24 14:00 11/30/24 06:14 2.5 MG Ipratropium [place] 0.5 mg Q4HWA [facility] 11/28/24 14:00 11/30/24 06:14 0.5 MG Amino Acid Protein 30 ml DAILY GT 11/30/24 10:00 11/30/24 12:56 30 ML laboratory and microbiology Laboratory Tests 11/30/24 06:49 Test 11/30/24 06:49 Range/Units Serum Glucose 114 H 74-106 mg/dL Assessment/Plan impression s/p cardiac arrest VT CPR <5 min elevated troponin acute resp failure atelectases s/p PM pt seen and examined on ICU events pt re-intubated on mechanical ventilation ac volume control peep 5 Fi02=40% abg reviewed labs and imaging studies reviewed management plan sedation as needed vent support abg and CXR daily abx f up on cx de-escalate as appropriate monitor labs renal function daily abg and CXR dvt proph/on may need trache and ltac crit care time 35 min Dietary Evaluation Review Comments: 1) TF Jevity 1.2Cal @ 55 ml/hr. x 24hr along with Pro-stat 1 pk daily. Start @ 20ml/hr, increase 10ml/hr Q4H until goal is reached. TF @ goal volume provides 1684 kcal (100% energy needs), 88 gm protein (100% protein needs), 1065 ml free water. 2) Water flush 100ml Q4H if allowed, adjust PRN 3) Advance to cardiac diet as medically feasible 4) Monitor NPO status, lab values, wt trend, I/O Expected Outcomes/Goals: To meet >75% estimated needs within 7 days Lab values to improve Fu 2-3 days Plan discussed with: Patient BELLO ROTHMAN MD Nov 30, 2024 19:11
[2024-12-01] VITALS (13 sets, daily range): BP systolic 89–115; BP diastolic 47–66; PULSE 64–91; RESP 15–23; TEMP 97.3–99; O2SAT 90–97
[2024-12-01 05:55] LABS: Hematocrit 29.2 % (36.0-46.0); Hemoglobin 9.6 g/dL (12.2-16.2); Mean Corpuscular Hemoglobin 31.2 pg (28.0-32.0); Mean Corpuscular Volume 94.9 fL (80.0-100.0); Nucleated Red Blood Cells % 0.3 %
--- NOTE | 2024-12-01 06:14 | DVHPN2 ---
Progress Note - Dictate Date Seen: Dec 01, 2024 Has the PT tested + for MRSA If YES, has PT been informed?: No Medical Necessity Reason Pt with a Central, PICC or Fol: No The following are medically ne: PICC Line, Cutler Catheter Reason for cutler catheter: Strict I&O vital signs Vital Sign Date Time Temp Pulse Resp B/P (MAP) Pulse Ox O2 Delivery O2 Flow Rate FiO2 12/01/24 05:55 113/58 12/01/24 05:00 98.1 91 19 90 98.1 11/30/24 20:30 Room Air* 0 21 Total Intake and Output 11/30/24 11/30/24 12/01/24 15:00 23:00 07:00 Intake Total 2000 ml 0 ml Output Total 400 ml 0 ml Balance 1600 ml 0 ml medications Current Medications Medications Dose Ordered Sig/Liliam Route Start Time Stop Time Status Last Admin Dose Admin Amino Acids 0 ml @ 0 mls/hr PER PHARMACY IV 10/15/24 18:45 Cancel Dextrose 50 ml UD IV 10/16/24 09:30 Cancel Vancomycin HCl 0 ml @ 0 mls/hr UD IV 10/19/24 14:00 Cancel Amino Acids 0 ml @ 0 mls/hr PER PHARMACY IV 11/04/24 22:00 Cancel Pantoprazole Sodium 40 mg BID IV 11/09/24 22:00 11/30/24 21:17 40 MG Mexiletine HCl 150 mg TID GT 11/10/24 22:00 12/01/24 05:52 150 MG Fat Emulsion Intravenous 150 ml/Sodium Acetate 20 meq/Potassium Acetate 30 meq/ Potassium Phosphate 19.8 meq/Calcium Gluconate 2.3 meq/ Magnesium Sulfate 4 meq/ Multivitamins 10 ml/Chromium/ Copper/Manganese/ Zinc 1 ml/Amino Acids/Dextrose/ Purified Water 1,596.4462 ml @ 66 mls/hr [id number] IV 11/11/24 22:00 11/12/24 21:59 Cancel Furosemide 40 mg BIDD IV 11/14/24 18:00 12/01/24 05:55 40 MG Acetaminophen 650 mg Q4HR PRN GT 11/17/24 08:30 11/22/24 07:10 650 MG Potassium Bicarbonate 50 meq BID PEG 11/18/24 22:00 11/30/24 21:18 50 MEQ Enteral Nutritional Formula 1,000 ml 55ML/HR GT 11/19/24 15:00 11/30/24 21:18 1,000 ML Lorazepam 1 mg ONCE PRN IV 11/20/24 10:30 Apixaban 2.5 mg BID PEG 11/26/24 22:00 11/30/24 21:20 2.5 MG Albuterol 2.5 mg Q4HWA [facility] 11/28/24 14:00 11/30/24 06:14 2.5 MG Ipratropium [place] 0.5 mg Q4HWA [facility] 11/28/24 14:00 11/30/24 06:14 0.5 MG Amino Acid Protein 30 ml DAILY GT 11/30/24 10:00 11/30/24 12:56 30 ML objective HEENT: EOMI, PERRLA, normal external inspect of ears, no icterus, no nasal drainage Neck: no carotid bruit, no jugular venous distention (JVD), no lymphadenopathy Chest: normal thorax Respiratory: Intubated, clear to auscultation, normal air movement Cardiovascular: regular rate and rhythm, no diastolic murmur, no jugular venous distention (JVD), no rub, no systolic murmur Abdominal: soft, no hepatomegaly, no mass, no splenomegaly, no tenderness Genitourinary: grossly normal external Musculoskeletal: no joint tenderness, no swelling Extremities: normal pulses, no calf tenderness, no clubbing, no cyanosis, no edema Skin: no bruising, no jaundice, no rash Neurological: No focal deficit laboratory and microbiology Laboratory Tests 12/01/24 05:16 Test 12/01/24 05:16 Range/Units Serum Glucose Pending Problem List Cardiac Arrest with Ventricular Fibrillation Assessment: Patient experienced cardiac arrest with ventricular fibrillation on 10/07/24, witnessed by family members who initiated CPR. EMS found the patient in ventricular fibrillation and administered shock therapy. Rhythm strip analysis confirmed ventricular fibrillation. Patient required intubation and sedation upon ED arrival. Currently admitted to ICU for close observation. Cardiology has been consulted and plans for AICD placement, likely on Tuesday. Infectious disease clearance has been obtained for the AICD procedure, addressing initial concerns of leukocytosis which is now improving. Status post-cardiac arrest. Plan: - Continue ICU monitoring - Proceed with AICD placement as planned (likely Tuesday), cleared by infectious disease. - Maintain intubation and sedation until AICD placement - Continue Heparin drip for paroxysmal atrial fibrillation - Continue Mexitil - DC amiodarone due to transaminitis - added esmolol drip per Cardiology for AFib and added push doses of digoxin Coronary Artery Disease Assessment: Patient with history of 2-vessel CABG (Coronary Artery Bypass Grafting). Surgical intervention previously performed to address significant coronary artery stenosis. Plan: - Continue medical management - Follow up with cardiology for ongoing coronary artery disease management Acute and Chronic Systolic Heart Failure Assessment: Patient has acute and chronic systolic heart failure with severely reduced left ventricular function. Ejection fraction is estimated at 15-20%. RICHIE findings are consistent with severely reduced left ventricular ejection fraction, previously implanted mitral ring, up to moderate mitral stenosis and regurgitation, and moderate aortic insufficiency. Plan: - Continue cardiology consultation - continue IV diuretics (IV Lasix) - Monitor renal function Acute Hypoxic Respiratory Failure Assessment: Patient is currently intubated due to acute hypoxic respiratory failure. Dr. Downey from pulmonology is managing this aspect of care. Plan: - Maintain current intubation as per pulmonology recommendation - Proceed with CPAP trials when deemed appropriate by pulmonology Transaminitis Assessment: Patient has elevated liver function tests, likely secondary to amiodarone use. Cardiology has discontinued amiodarone in response. Plan: - Monitor liver function tests - Amiodarone discontinued as per cardiology Enterobacter PNA Assessment: Sputum culture positive for Enterobacter. Plan: - Continue treatment with Eratapenem to complete 10 days regimen -Infectious disease consult Hemodynamic Support Assessment: Patient requires vasopressor support for hemodynamic stability. Plan: - Continue vasopressin - Continue neosynephrine Paroxysmal a fib -DC amiodarone -continue with heparin gtt Shock liver GI consult, trend liver enzymes, hepatitis panel was negative. Ultrasound of the liver had no acute findings. Assessment/Plan Subjective: Patient is awake and alert. Objective: No change to patient's status. Patient is stable and awaiting transfer to group home facility for rehab. Patient was admitted status post cardiac arrest. She is status post AICD placement and status post G-tube placement due to prolonged intubation time. She has failed her swallow evals. Repeat swallow eval is now pending. Patient had sepsis with septic shock. She has VRE in the urine and she had enterococcus in the urine. Patient had pancytopenia and underlying liver disease. Plan: Continue current treatment. Monitor for active signs or symptoms of bleeding. Platelet count is 122. Plan for discharge once patient receives a bed at the group home facility. Dietary Evaluation Review Comments: 1) TF Jevity 1.2Cal @ 55 ml/hr. x 24hr along with Pro-stat 1 pk daily. Start @ 20ml/hr, increase 10ml/hr Q4H until goal is reached. TF @ goal volume provides 1684 kcal (100% energy needs), 88 gm protein (100% protein needs), 1065 ml free water. 2) Water flush 100ml Q4H if allowed, adjust PRN 3) Advance to cardiac diet as medically feasible 4) Monitor NPO status, lab values, wt trend, I/O Expected Outcomes/Goals: To meet >75% estimated needs within 7 days Lab values to improve Fu 2-3 days Plan discussed with: Patient, Other BRODIE GARVIN COFFEE SOMMELIER Dec 01, 2024 06:14
[2024-12-01 06:27] LABS: Anion Gap 11 (5-15); BUN/Creatinine Ratio 32.6 (10.0-20.0); Blood Urea Nitrogen 15 mg/dL (9-23); Carbon Dioxide 24 mmol/L (20-31); Chloride 102 mmol/L (98-107); Potassium 3.8 mmol/L (3.5-5.1); Sodium 137 mmol/L (136-145)
[2024-12-01 06:45] LABS: Alanine Aminotransferase 75 U/L (7-40); Albumin 2.7 g/dL (3.2-4.8); Alkaline Phosphatase 143 U/L (46-116); Bilirubin, Total 1.4 mg/dL (0.2-1.0); Calcium 7.9 mg/dL (8.7-10.4); Glucose 118 mg/dL (74-106); Total Protein 5.5 g/dL (5.7-8.2)
--- NOTE | 2024-12-01 10:27 | DVHPN2 ---
Progress Note - Dictate Date Seen: Dec 01, 2024 Has the PT tested + for MRSA If YES, has PT been informed?: No Medical Necessity Reason Pt with a Central, PICC or Fol: No The following are medically ne: PICC Line, Cutler Catheter Reason for cutler catheter: Strict I&O vital signs Vital Sign Date Time Temp Pulse Resp B/P (MAP) Pulse Ox O2 Delivery O2 Flow Rate FiO2 12/01/24 08:37 97.3 86 16 108/63 (78) 97 97.3 12/01/24 07:33 Room Air* 0 21 Total Intake and Output 11/30/24 11/30/24 12/01/24 15:00 23:00 07:00 Intake Total 2000 ml 0 ml Output Total 400 ml 0 ml Balance 1600 ml 0 ml medications Current Medications Medications Dose Ordered Sig/Liliam Route Start Time Stop Time Status Last Admin Dose Admin Amino Acids 0 ml @ 0 mls/hr PER PHARMACY IV 10/15/24 18:45 Cancel Dextrose 50 ml UD IV 10/16/24 09:30 Cancel Vancomycin HCl 0 ml @ 0 mls/hr UD IV 10/19/24 14:00 Cancel Amino Acids 0 ml @ 0 mls/hr PER PHARMACY IV 11/04/24 22:00 Cancel Pantoprazole Sodium 40 mg BID IV 11/09/24 22:00 12/01/24 10:25 40 MG Mexiletine HCl 150 mg TID GT 11/10/24 22:00 12/01/24 05:52 150 MG Fat Emulsion Intravenous 150 ml/Sodium Acetate 20 meq/Potassium Acetate 30 meq/ Potassium Phosphate 19.8 meq/Calcium Gluconate 2.3 meq/ Magnesium Sulfate 4 meq/ Multivitamins 10 ml/Chromium/ Copper/Manganese/ Zinc 1 ml/Amino Acids/Dextrose/ Purified Water 1,596.4462 ml @ 66 mls/hr [id number] IV 11/11/24 22:00 11/12/24 21:59 Cancel Furosemide 40 mg BIDD IV 11/14/24 18:00 12/01/24 05:55 40 MG Acetaminophen 650 mg Q4HR PRN GT 11/17/24 08:30 11/22/24 07:10 650 MG Potassium Bicarbonate 50 meq BID PEG 11/18/24 22:00 12/01/24 10:25 50 MEQ Enteral Nutritional Formula 1,000 ml 55ML/HR GT 11/19/24 15:00 11/30/24 21:18 1,000 ML Lorazepam 1 mg ONCE PRN IV 11/20/24 10:30 Apixaban 2.5 mg BID PEG 11/26/24 22:00 12/01/24 10:25 2.5 MG Albuterol 2.5 mg Q4HWA [facility] 11/28/24 14:00 11/30/24 06:14 2.5 MG Ipratropium [place] 0.5 mg Q4HWA [facility] 11/28/24 14:00 11/30/24 06:14 0.5 MG Amino Acid Protein 30 ml DAILY GT 11/30/24 10:00 11/30/24 12:56 30 ML laboratory and microbiology Laboratory Tests 12/01/24 05:16 Test 12/01/24 05:16 Range/Units Serum Glucose 118 H 74-106 mg/dL Assessment/Plan Alert, NAD Passed swallowing evaluation. (on original arrival to hospital): Patient is a 54-year-old female who was brought to the hospital for witnessed syncope. She is intubated and is being managed in ICU. Information was obtained by reviewing the chart and communicating with patient's son (over the phone). Family recognized witnessed syncope and started CPR and called EMS. Reportedly, EMS found the patient in ventricular fibrillation and shocked the patient and brought the patient to the hospital. Patient was intubated in emergency room and transferred to ICU. Patient was on amiodarone drip. Later the patient had ventricular tachycardia (Systane). High sensitive troponin had been minimally/flatly elevated. Presentation was not in favor of acute coronary syndrome. Cardiology is involved for cardiac aspects of care. NAD No JVD. Mucosa pale. No carotid bruit. Scattered rhonchi in the lungs is heard. Cardiac: Regular, no thrill. Systolic murmur 2/6 in apex is heard. Abdomen is soft. 3+ edema in extremities. Past medical history as per son: Congenital heart disease, status post bypass Troponin (high sensitive): 141 - 138 - 117 BNP: 457.16 - 1073.91 - 928.14 Digoxin level: 2.83 - 1.25 - 0.98 UDS: non-revealing Chest x-ray revealed: Lines and Tubes: Endotracheal tube tip projects approximately 1.4 cm above the level of the tyler. Enteric catheter courses below the lateral of the diaphragm and terminates beyond the inferior margin of the image. Right internal jugular central venous catheter terminates within the distal superior vena cava. Lungs: Moderate diffuse increased prominence of the pulmonary vasculature without evidence of focal consolidation. Pleura: No effusion. No pneumothorax. Cardiomediastinal contours: Cardiomegaly. Bones: Unremarkable IMPRESSION: 1. Cardiomegaly and diffuse increased prominence of the pulmonary vasculature. 2. Lines and tubes as above. Repeat chest x-ray revealed: IMPRESSION: 1. Endotracheal tube tip 1.6 cm above the tyler; consider 2 cm retraction 2. Mild pulmonary vascular congestion. Moderate cardiomegaly. Repeat chest xry revealed: IMPRESSION: Endotracheal tube tip 1.6 cm above the tyler; consider 2 cm retraction Mild pulmonary vascular congestion. Moderate cardiomegaly. Repeat chest xry revealed: IMPRESSION: 1. Stable cardiomegaly, small left pleural effusion and mild diffuse increased prominence of the pulmonary vasculature. 2. Repositioned endotracheal tube as above. Remaining lines and tubes unchanged. Repeat chest xry revealed: IMPRESSION: 1. Cardiomegaly, stable diffuse increased prominence of the pulmonary vasculature and small bilateral pleural effusions. 2. Slight interval advancement of endotracheal tube as above. Remaining lines and tubes unchanged. Repeat chest xry revealed: IMPRESSION: 1. Slight interval decrease in diffuse increased prominence of the pulmonary vasculature. 2. Stable cardiomegaly and small left pleural effusion. 3. Lines and tubes unchanged. Repeat chest xry revealed: IMPRESSION: 1. Cardiomegaly and small left pleural effusion. 2. Lines and tubes unchanged. Repeat chest xry revealed: IMPRESSION: Stable lines and tubes. Similar lung aeration. Repeat chest xry revealed: IMPRESSION: Cardiomegaly and small left pleural effusion. Lines and tubes unchanged. Repeat chest xry revealed: IMPRESSION: Placement of a cardiac pacer, no pneumothorax is seen. Stable lines and tubes. Repeat chest xry revealed: IMPRESSION: 1. Worsening mixed opacities in the right lower lung. No other significant change from the previous study. Stable support devices. Repeat chest xry revealed: Heart is prominent in size with postsurgical changes, median sternotomy wires, and a single lead left cardiac defibrillator. Support lines and tubes appear unchanged in satisfactory in position. No sizable effusion or pneumothorax. Mild pulmonary vascular congestion. No significant interval change. Repeat chest xry revealed: IMPRESSION: 1. No significant change from the previous study. Stable support devices. Similar findings of heart failure including left pleural effusion. Repeat chest xry revealed: IMPRESSION: 1. No significant change from the previous study. Stable support devices. Similar findings of heart failure including trace left pleural effusion. Repeat chest xry revealed: Lines and Tubes: Unchanged. Left anterior chest wall cardiac pacing device. Lungs: Clear Pleura: No effusion. No pneumothorax. Cardiomediastinal contours: Cardiomegaly. Bones: Unremarkable IMPRESSION: 1. Cardiomegaly. 2. Lines and tubes unchanged. Repeat chest xry revealed: IMPRESSION: Lines and tubes in satisfactory position. No significant interval change. Repeat chest xry revealed: Lines and Tubes: ET tube and NG tube removed. Lungs: Congestion Pleura: No effusion. No pneumothorax. Cardiomediastinal contours: Cardiomegaly Bones: Unremarkable IMPRESSION: 1. Cardiomegaly with CHF. Repeat chest xry revealed: IMPRESSION: 1. Cardiomegaly. 2. Patchy bilateral airspace disease. Repeat chest xry revealed: FINDINGS: Lines and Tubes: None. Left anterior chest wall cardiac pacing device. Lungs: Extensive multifocal bilateral pulmonary airspace disease in a predominantly perihilar and bibasilar distribution with consolidative features. Pleura: No effusion. No pneumothorax. Cardiomediastinal contours: Poorly evaluated secondary to extensive bilateral infiltrate. Bones: Unremarkable IMPRESSION: 1. Extensive multifocal bilateral pulmonary airspace disease in a predominantly perihilar and bibasilar distribution with consolidative features. Repeat chest xry revealed: IMPRESSION: 1. Status post interval intubation. Endotracheal tube tip projects approximately 2.4 cm above the level of the tyler. 2. Grossly stable appearing moderate patchy multifocal bilateral pulmonary airspace disease with consolidative features. 3. Cardiomegaly. Repeat chest xry revealed: IMPRESSION: No significant interval change. Repeat chest xry revealed: IMPRESSION: No significant interval change Repeat chest xry revealed: IMPRESSION: 1. Interval retraction of the endotracheal tube such that the tip now projects approximately 4.5 cm above the level of the tyler. 2. Cardiomegaly. Repeat chest xry revealed: IMPRESSION: 1. Mild interval advancement of the endotracheal tube such that the tip now projects approximately 3.3 cm above the level of the tyler. 2. No evidence of acute cardiopulmonary process. Repeat chest xry revealed: IMPRESSION: Lines and tubes in satisfactory position. No significant interval change. Repeat chest xry revealed: IMPRESSION: 1. Interval advancement of endotracheal tube such that the tip now projects approximately 3.7 cm above the level of the tyler. Remaining lines and tubes unchanged. 2. Cardiomegaly. Repeat chest xry revealed: IMPRESSION: Unchanged pulmonary vascular congestion. Repeat chest xry revealed: IMPRESSION: No significant interval change. Repeat chest xry revealed: IMPRESSION: 1. Interval retraction of endotracheal tube such that the tip now projects approximately 4.5 cm above the level of the tyler. Remaining lines and tubes unchanged. 2. Cardiomegaly. Repeat chest xry revealed: IMPRESSION: 1. Appropriate position of the support lines and tubes. 2. No acute pulmonary disease. 3. Stable cardiomegaly. Gall Bladder Ultrasound revealed: IMPRESSION: Gallstones are noted. Hepatic steatosis Trace ascites Trace bilateral pleural effusions. Hepatic cirrhosis. Liver Ultrasound revealed: Hepatic steatosis. Trace right pleural effusion. Trace ascites Gallstones Bladder ultrasound revealed: IMPRESSION: 1. Cutler catheter in the bladder in the bladder is decompressed. Repeat Bladder Ultrasound revealed: Urinary bladder is unremarkable with prevoid volume of 29 mL. Urinary bladder wall measures 1.5 mm. Cutler catheter is noted. KUB revealed: IMPRESSION: Nonobstructive bowel gas pattern. Nasogastric tube tip in the stomach. Large stool burden. Repeat KUB revealed: Right lower extremity PICC line with tip projecting over the expected region of the intrahepatic IVC. Nasogastric tube projecting towards the distal stomach. Nonspecific bowel gas pattern. Cardiomegaly and left basilar airspace opacities, incompletely characterized. Atherosclerotic calcification disease. Repeat KUB revealed: IMPRESSION: 1. Nonspecific nonobstructive bowel gas pattern. 2. Gastrostomy tube projects over the midportion of the left hemiabdomen. 3. Right femoral approach central venous catheter as described above. Repeat KUB revealed: IMPRESSION: Nonobstructive bowel gas pattern. Right central venous catheter tip in the IVC Cutler catheter overlying the bladder. Left upper ext arterial duplex: IMPRESSION: No hemodynamically significant stenosis based on peak systolic velocity criteria. Left lower ext arterial duplex: IMPRESSION: There is no evidence for peripheral vascular insufficiency in the left lower extremity. No significant focal stenosis is identified. Liver Ultrasound revealed: Hepatic steatosis. Hepatomegaly. Cholelithiasis. CT of the head revealed: IMPRESSION: No acute intracranial abnormality. Repeat CT of head revealed: IMPRESSION: No acute intracranial abnormality. Repeat CT of Head revealed: IMPRESSION: No acute intracranial abnormality. Repeat CT of head revealed: IMPRESSION: 1. No acute intracranial abnormality. 2. No findings to suggest territorial ischemia. Echocardiogram reported: lvef 15-20% dilated LV severe global dysfunction mild RV dysfunction biatrial enlargement mild moderate MAC, moderate mitral regurg mild to moderate aortic regug (images of echo reviewed and questioned presence of mitral ring and also some component (moderate of Mitral stenosis) EKG revealed sinus rhythm Telemetry revealed occasions of atrial fibrillation. There was occasional sustained ventricular tachycardia. EMS tele monitor revealed ventricular fibrillation for which the patient was shocked. Has remained sinus rhythm. Later with A-fib with MVR LHC revealed: Patent RICH[place]D to LAD; Patent SVG to obtuse marginal; LVEF of 20% with increased EDP; Proximal disease in LAD/LCX RICHIE was performed: Consistent with severely reduced LVEF. Consistent with previously implanted Mitral ring, Up to moderate Mitral stenosis/Mitral Regurgitation and also Moderate Aortic insufficiency. Patient is a 54-year-old female who presented with witnessed syncope. She was found to have ventricular fibrillation for which was shocked. Later had repeated episode of sustained ventricular tachycardia. Patient has been kept in ICU. Does have baseline history of coronary artery disease for which has had bypass surgery. Left heart catheterization was performed which revealed patent R[place]D and patent SVG. ACS is not considered at this point. It is of note that the patient's echocardiogram reveals significantly use systolic function. Valvular heart disease is considered. Findings are in favor of previously implanted mitral ring. By reviewing the echo images, component of up to moderate mitral stenosis could not be ruled out. LHC was performed that ruled out any active specific ischemia as an etiology for presentation. Is off Amiodarone for abnormal LFT. Being followed by Nephrology / Pulmonary / Neurology / GI ID. Tele has remained sinus rhythm. Had episode of a-fib with RVR. Was loaded with Digoxin. Dig level was performed at wrong timing (only 5 hours after the last Dig given). Dig toxicity is not considered. Patient is back to normal sinus rhythm. Has good kidney function. Repeat Dig level is acceptable level. s/p ICD implantation by EP. Intubated, later extubated. s/p PEG. Later had respiratory failure and was taken back to ICU. Imaging question pneumonia (can it be aspiration?). Eventhough repeat BNP has not increased (decreased somehow), patient does have peripheral edema and component of acute on chronic Systolic heart failure could also contribute to respiratory failure. The site of ICD implantation was reviewed by EP (Dr Armstrong on 05/13/2024): healing well (personal communication). Had repeat respiratory failure, back in ICU and intubated. Abnormal LFT. Found to have gall stone and Liver cirrhosis. Extubated and transferred back to tele floor Syncope V-fib s/p shock Sustained V-tach Paroxysmal A-fib VHD, s/p Mitral ring Systolic heart failure Abnormal LFT, at a point resolved, later appeared again s/p ICD (Biotronik) implantation by EP (Dr Armstrong) s/p PRBC transfusion for significant anemia Hepatic Steatosis Gallstones Failed Swallowing s/p PEG Acute respiratory failure Acute on chronic systolic heart failure Gallstone Liver cirrhosis s/p repeated intubation and extubations Cardiac suggestion for management: Manage in Tele IV diuresis Follow up electrolytes and kidney function test and correct abnormalities Full anticoagulation (a-fib with high CHADS-Vasc score). s/p ICD implantation. On Eliquis On Mexiletine Cardiac arenas, stable s/p ICD (Biotronik) implantation by EP Eliquis: 2.5 mg BID s/p PEG Pulmonary Follow up GI follow up Cardiac arenas (hemodynamically): stable Management of repeat respiratory failure, pneumonia as per primary team/pulmonary Provide previous medical records from reaching out to previous hospitals in [facility]... Further evaluation and management depends on the above and clinical course. A total of 75 minutes was spent reviewing the patient record, examining the patient, making a diagnostic and therapeutic plan, discussing this plan with medical personnel, following up on diagnostic studies and following the patient for clinical stability excluding any and all procedures. At least 50% of this time was spent in direct, [id number] contact. Thank you for allowing me to participate in this patient's care. Further recommendations will depend on patient's clinical course. Please do not hesitate to contact me if you have any questions or concerns. This medical document was created using electronic medical record system with [employer] dictation system. Although this document has been carefully reviewed, there may still be some phonetic and typographical errors. These areas are purely typographical due to the imperfection of the software programs, and do not reflect any compromise in the patient's medical care. Dietary Evaluation Review Comments: 1) TF Jevity 1.2Cal @ 55 ml/hr. x 24hr along with Pro-stat 1 pk daily. Start @ 20ml/hr, increase 10ml/hr Q4H until goal is reached. TF @ goal volume provides 1684 kcal (100% energy needs), 88 gm protein (100% protein needs), 1065 ml free water. 2) Water flush 100ml Q4H if allowed, adjust PRN 3) Advance to cardiac diet as medically feasible 4) Monitor NPO status, lab values, wt trend, I/O Expected Outcomes/Goals: To meet >75% estimated needs within 7 days Lab values to improve Fu 2-3 days Plan discussed with: Patient, Other (nurse) CORDELL VERA MD Dec 01, 2024 10:27
[2024-12-01] MEDS ORDERED: IPRATROPIUM BROM 0.5 MG/2.5ML INH SOL NEB PRN (11:45)
[2024-12-01] MEDS ORDERED: ALBUTEROL SULF 2.5 MG/0.5ML(0.5%) NEB SOLN NEB PRN (11:45)
--- NOTE | 2024-12-01 18:49 | DVHPN2 ---
Progress Note - Dictate Date Seen: Dec 02, 2024 Has the PT tested + for MRSA If YES, has PT been informed?: No Medical Necessity Reason Pt with a Central, PICC or Fol: No The following are medically ne: PICC Line, Cutler Catheter Reason for cutler catheter: Strict I&O vital signs Vital Sign Date Time Temp Pulse Resp B/P (MAP) Pulse Ox O2 Delivery O2 Flow Rate FiO2 12/01/24 18:15 114/47 12/01/24 16:37 99.0 80 23 97 99.0 12/01/24 14:17 Room Air* 0 21 Total Intake and Output 11/30/24 11/30/24 12/01/24 15:00 23:00 07:00 Intake Total 2000 ml 0 ml Output Total 400 ml 0 ml Balance 1600 ml 0 ml medications Current Medications Medications Dose Ordered Sig/Liliam Route Start Time Stop Time Status Last Admin Dose Admin Amino Acids 0 ml @ 0 mls/hr PER PHARMACY IV 10/15/24 18:45 Cancel Dextrose 50 ml UD IV 10/16/24 09:30 Cancel Vancomycin HCl 0 ml @ 0 mls/hr UD IV 10/19/24 14:00 Cancel Amino Acids 0 ml @ 0 mls/hr PER PHARMACY IV 11/04/24 22:00 Cancel Pantoprazole Sodium 40 mg BID IV 11/09/24 22:00 12/01/24 10:25 40 MG Mexiletine HCl 150 mg TID GT 11/10/24 22:00 12/01/24 15:48 150 MG Fat Emulsion Intravenous 150 ml/Sodium Acetate 20 meq/Potassium Acetate 30 meq/ Potassium Phosphate 19.8 meq/Calcium Gluconate 2.3 meq/ Magnesium Sulfate 4 meq/ Multivitamins 10 ml/Chromium/ Copper/Manganese/ Zinc 1 ml/Amino Acids/Dextrose/ Purified Water 1,596.4462 ml @ 66 mls/hr [id number] IV 11/11/24 22:00 11/12/24 21:59 Cancel Furosemide 40 mg BIDD IV 11/14/24 18:00 12/01/24 18:15 40 MG Acetaminophen 650 mg Q4HR PRN GT 11/17/24 08:30 11/22/24 07:10 650 MG Potassium Bicarbonate 50 meq BID PEG 11/18/24 22:00 12/01/24 10:25 50 MEQ Enteral Nutritional Formula 1,000 ml 55ML/HR GT 11/19/24 15:00 11/30/24 21:18 1,000 ML Lorazepam 1 mg ONCE PRN IV 11/20/24 10:30 Apixaban 2.5 mg BID PEG 11/26/24 22:00 12/01/24 10:25 2.5 MG Amino Acid Protein 30 ml DAILY GT 11/30/24 10:00 11/30/24 12:56 30 ML Albuterol 2.5 mg Q4HPRN PRN NEB 12/01/24 11:45 Ipratropium [place] 0.5 mg Q4HPRN PRN NEB 12/01/24 11:45 laboratory and microbiology Laboratory Tests 12/01/24 05:16 Test 12/01/24 05:16 Range/Units Serum Glucose 118 H 74-106 mg/dL Assessment/Plan impression s/p cardiac arrest VT CPR <5 min elevated troponin acute resp failure atelectases s/p PM pt seen and examined events s/p extubation low oxygen requirements appears very deconditioned labs and imaging studies reviewed management plan supplemental oxygen awaiting placement Dietary Evaluation Review Comments: 1) TF Jevity 1.2Cal @ 55 ml/hr. x 24hr along with Pro-stat 1 pk daily. Start @ 20ml/hr, increase 10ml/hr Q4H until goal is reached. TF @ goal volume provides 1684 kcal (100% energy needs), 88 gm protein (100% protein needs), 1065 ml free water. 2) Water flush 100ml Q4H if allowed, adjust PRN 3) Advance to cardiac diet as medically feasible 4) Monitor NPO status, lab values, wt trend, I/O Expected Outcomes/Goals: To meet >75% estimated needs within 7 days Lab values to improve Fu 2-3 days Plan discussed with: Other (Rn) BELLO ROTHMAN MD Dec 01, 2024 18:49
[2024-12-02] VITALS (10 sets, daily range): BP systolic 98–128; BP diastolic 58–73; PULSE 72–86; RESP 15–18; TEMP 97.9–98.4; O2SAT 92–99
--- NOTE | 2024-12-02 07:29 | DVHPN2 ---
Progress Note - Dictate Date Seen: Dec 02, 2024 Has the PT tested + for MRSA If YES, has PT been informed?: No Medical Necessity Reason Pt with a Central, PICC or Fol: No The following are medically ne: PICC Line, Cutler Catheter Reason for cutler catheter: Strict I&O vital signs Vital Sign Date Time Temp Pulse Resp B/P (MAP) Pulse Ox O2 Delivery O2 Flow Rate FiO2 12/02/24 05:33 106/58 12/02/24 05:00 97.9 72 16 98 97.9 12/01/24 20:00 Room Air* 0 21 Total Intake and Output 12/01/24 12/01/24 12/02/24 15:00 23:00 07:00 Intake Total 1555 ml 645 ml Output Total 1900 ml 600 ml Balance -345 ml 45 ml medications Current Medications Medications Dose Ordered Sig/Liliam Route Start Time Stop Time Status Last Admin Dose Admin Amino Acids 0 ml @ 0 mls/hr PER PHARMACY IV 10/15/24 18:45 Cancel Dextrose 50 ml UD IV 10/16/24 09:30 Cancel Vancomycin HCl 0 ml @ 0 mls/hr UD IV 10/19/24 14:00 Cancel Amino Acids 0 ml @ 0 mls/hr PER PHARMACY IV 11/04/24 22:00 Cancel Pantoprazole Sodium 40 mg BID IV 11/09/24 22:00 12/01/24 21:59 40 MG Mexiletine HCl 150 mg TID GT 11/10/24 22:00 12/02/24 05:32 150 MG Fat Emulsion Intravenous 150 ml/Sodium Acetate 20 meq/Potassium Acetate 30 meq/ Potassium Phosphate 19.8 meq/Calcium Gluconate 2.3 meq/ Magnesium Sulfate 4 meq/ Multivitamins 10 ml/Chromium/ Copper/Manganese/ Zinc 1 ml/Amino Acids/Dextrose/ Purified Water 1,596.4462 ml @ 66 mls/hr [id number] IV 11/11/24 22:00 11/12/24 21:59 Cancel Furosemide 40 mg BIDD IV 11/14/24 18:00 12/02/24 05:33 40 MG Acetaminophen 650 mg Q4HR PRN GT 11/17/24 08:30 12/01/24 22:00 650 MG Potassium Bicarbonate 50 meq BID PEG 11/18/24 22:00 12/01/24 21:59 50 MEQ Enteral Nutritional Formula 1,000 ml 55ML/HR GT 11/19/24 15:00 11/30/24 21:18 1,000 ML Lorazepam 1 mg ONCE PRN IV 11/20/24 10:30 Apixaban 2.5 mg BID PEG 11/26/24 22:00 12/01/24 21:59 2.5 MG Amino Acid Protein 30 ml DAILY GT 11/30/24 10:00 11/30/24 12:56 30 ML Albuterol 2.5 mg Q4HPRN PRN NEB 12/01/24 11:45 Ipratropium Winnie 0.5 mg Q4HPRN PRN NEB 12/01/24 11:45 laboratory and microbiology Laboratory Tests 12/01/24 05:16 Test 12/01/24 05:16 Range/Units Serum Glucose 118 H 74-106 mg/dL Assessment/Plan Alert, NAD Passed swallowing evaluation. (on original arrival to hospital): Patient is a 54-year-old female who was brought to the hospital for witnessed syncope. She is intubated and is being managed in ICU. Information was obtained by reviewing the chart and communicating with patient's son (over the phone). Family recognized witnessed syncope and started CPR and called EMS. Reportedly, EMS found the patient in ventricular fibrillation and shocked the patient and brought the patient to the hospital. Patient was intubated in emergency room and transferred to ICU. Patient was on amiodarone drip. Later the patient had ventricular tachycardia (Systane). High sensitive troponin had been minimally/flatly elevated. Presentation was not in favor of acute coronary syndrome. Cardiology is involved for cardiac aspects of care. NAD No JVD. Mucosa pale. No carotid bruit. Scattered rhonchi in the lungs is heard. Cardiac: Regular, no thrill. Systolic murmur 2/6 in apex is heard. Abdomen is soft. 3+ edema in extremities. Past medical history as per son: Congenital heart disease, status post bypass Troponin (high sensitive): 141 - 138 - 117 BNP: 457.16 - 1073.91 - 928.14 Digoxin level: 2.83 - 1.25 - 0.98 UDS: non-revealing Chest x-ray revealed: Lines and Tubes: Endotracheal tube tip projects approximately 1.4 cm above the level of the tyler. Enteric catheter courses below the lateral of the diaphragm and terminates beyond the inferior margin of the image. Right internal jugular central venous catheter terminates within the distal superior vena cava. Lungs: Moderate diffuse increased prominence of the pulmonary vasculature without evidence of focal consolidation. Pleura: No effusion. No pneumothorax. Cardiomediastinal contours: Cardiomegaly. Bones: Unremarkable IMPRESSION: 1. Cardiomegaly and diffuse increased prominence of the pulmonary vasculature. 2. Lines and tubes as above. Repeat chest x-ray revealed: IMPRESSION: 1. Endotracheal tube tip 1.6 cm above the tyler; consider 2 cm retraction 2. Mild pulmonary vascular congestion. Moderate cardiomegaly. Repeat chest xry revealed: IMPRESSION: Endotracheal tube tip 1.6 cm above the tyler; consider 2 cm retraction Mild pulmonary vascular congestion. Moderate cardiomegaly. Repeat chest xry revealed: IMPRESSION: 1. Stable cardiomegaly, small left pleural effusion and mild diffuse increased prominence of the pulmonary vasculature. 2. Repositioned endotracheal tube as above. Remaining lines and tubes unchanged. Repeat chest xry revealed: IMPRESSION: 1. Cardiomegaly, stable diffuse increased prominence of the pulmonary vasculature and small bilateral pleural effusions. 2. Slight interval advancement of endotracheal tube as above. Remaining lines and tubes unchanged. Repeat chest xry revealed: IMPRESSION: 1. Slight interval decrease in diffuse increased prominence of the pulmonary vasculature. 2. Stable cardiomegaly and small left pleural effusion. 3. Lines and tubes unchanged. Repeat chest xry revealed: IMPRESSION: 1. Cardiomegaly and small left pleural effusion. 2. Lines and tubes unchanged. Repeat chest xry revealed: IMPRESSION: Stable lines and tubes. Similar lung aeration. Repeat chest xry revealed: IMPRESSION: Cardiomegaly and small left pleural effusion. Lines and tubes unchanged. Repeat chest xry revealed: IMPRESSION: Placement of a cardiac pacer, no pneumothorax is seen. Stable lines and tubes. Repeat chest xry revealed: IMPRESSION: 1. Worsening mixed opacities in the right lower lung. No other significant change from the previous study. Stable support devices. Repeat chest xry revealed: Heart is prominent in size with postsurgical changes, median sternotomy wires, and a single lead left cardiac defibrillator. Support lines and tubes appear unchanged in satisfactory in position. No sizable effusion or pneumothorax. Mild pulmonary vascular congestion. No significant interval change. Repeat chest xry revealed: IMPRESSION: 1. No significant change from the previous study. Stable support devices. Similar findings of heart failure including left pleural effusion. Repeat chest xry revealed: IMPRESSION: 1. No significant change from the previous study. Stable support devices. Similar findings of heart failure including trace left pleural effusion. Repeat chest xry revealed: Lines and Tubes: Unchanged. Left anterior chest wall cardiac pacing device. Lungs: Clear Pleura: No effusion. No pneumothorax. Cardiomediastinal contours: Cardiomegaly. Bones: Unremarkable IMPRESSION: 1. Cardiomegaly. 2. Lines and tubes unchanged. Repeat chest xry revealed: IMPRESSION: Lines and tubes in satisfactory position. No significant interval change. Repeat chest xry revealed: Lines and Tubes: ET tube and NG tube removed. Lungs: Congestion Pleura: No effusion. No pneumothorax. Cardiomediastinal contours: Cardiomegaly Bones: Unremarkable IMPRESSION: 1. Cardiomegaly with CHF. Repeat chest xry revealed: IMPRESSION: 1. Cardiomegaly. 2. Patchy bilateral airspace disease. Repeat chest xry revealed: FINDINGS: Lines and Tubes: None. Left anterior chest wall cardiac pacing device. Lungs: Extensive multifocal bilateral pulmonary airspace disease in a predominantly perihilar and bibasilar distribution with consolidative features. Pleura: No effusion. No pneumothorax. Cardiomediastinal contours: Poorly evaluated secondary to extensive bilateral infiltrate. Bones: Unremarkable IMPRESSION: 1. Extensive multifocal bilateral pulmonary airspace disease in a predominantly perihilar and bibasilar distribution with consolidative features. Repeat chest xry revealed: IMPRESSION: 1. Status post interval intubation. Endotracheal tube tip projects approximately 2.4 cm above the level of the tyler. 2. Grossly stable appearing moderate patchy multifocal bilateral pulmonary airspace disease with consolidative features. 3. Cardiomegaly. Repeat chest xry revealed: IMPRESSION: No significant interval change. Repeat chest xry revealed: IMPRESSION: No significant interval change Repeat chest xry revealed: IMPRESSION: 1. Interval retraction of the endotracheal tube such that the tip now projects approximately 4.5 cm above the level of the tyler. 2. Cardiomegaly. Repeat chest xry revealed: IMPRESSION: 1. Mild interval advancement of the endotracheal tube such that the tip now projects approximately 3.3 cm above the level of the tyler. 2. No evidence of acute cardiopulmonary process. Repeat chest xry revealed: IMPRESSION: Lines and tubes in satisfactory position. No significant interval change. Repeat chest xry revealed: IMPRESSION: 1. Interval advancement of endotracheal tube such that the tip now projects approximately 3.7 cm above the level of the tyler. Remaining lines and tubes unchanged. 2. Cardiomegaly. Repeat chest xry revealed: IMPRESSION: Unchanged pulmonary vascular congestion. Repeat chest xry revealed: IMPRESSION: No significant interval change. Repeat chest xry revealed: IMPRESSION: 1. Interval retraction of endotracheal tube such that the tip now projects approximately 4.5 cm above the level of the tyler. Remaining lines and tubes unchanged. 2. Cardiomegaly. Repeat chest xry revealed: IMPRESSION: 1. Appropriate position of the support lines and tubes. 2. No acute pulmonary disease. 3. Stable cardiomegaly. Gall Bladder Ultrasound revealed: IMPRESSION: Gallstones are noted. Hepatic steatosis Trace ascites Trace bilateral pleural effusions. Hepatic cirrhosis. Liver Ultrasound revealed: Hepatic steatosis. Trace right pleural effusion. Trace ascites Gallstones Bladder ultrasound revealed: IMPRESSION: 1. Cutler catheter in the bladder in the bladder is decompressed. Repeat Bladder Ultrasound revealed: Urinary bladder is unremarkable with prevoid volume of 29 mL. Urinary bladder wall measures 1.5 mm. Cutler catheter is noted. KUB revealed: IMPRESSION: Nonobstructive bowel gas pattern. Nasogastric tube tip in the stomach. Large stool burden. Repeat KUB revealed: Right lower extremity PICC line with tip projecting over the expected region of the intrahepatic IVC. Nasogastric tube projecting towards the distal stomach. Nonspecific bowel gas pattern. Cardiomegaly and left basilar airspace opacities, incompletely characterized. Atherosclerotic calcification disease. Repeat KUB revealed: IMPRESSION: 1. Nonspecific nonobstructive bowel gas pattern. 2. Gastrostomy tube projects over the midportion of the left hemiabdomen. 3. Right femoral approach central venous catheter as described above. Repeat KUB revealed: IMPRESSION: Nonobstructive bowel gas pattern. Right central venous catheter tip in the IVC Cutler catheter overlying the bladder. Left upper ext arterial duplex: IMPRESSION: No hemodynamically significant stenosis based on peak systolic velocity criteria. Left lower ext arterial duplex: IMPRESSION: There is no evidence for peripheral vascular insufficiency in the left lower extremity. No significant focal stenosis is identified. Liver Ultrasound revealed: Hepatic steatosis. Hepatomegaly. Cholelithiasis. CT of the head revealed: IMPRESSION: No acute intracranial abnormality. Repeat CT of head revealed: IMPRESSION: No acute intracranial abnormality. Repeat CT of Head revealed: IMPRESSION: No acute intracranial abnormality. Repeat CT of head revealed: IMPRESSION: 1. No acute intracranial abnormality. 2. No findings to suggest territorial ischemia. Echocardiogram reported: lvef 15-20% dilated LV severe global dysfunction mild RV dysfunction biatrial enlargement mild moderate MAC, moderate mitral regurg mild to moderate aortic regug (images of echo reviewed and questioned presence of mitral ring and also some component (moderate of Mitral stenosis) EKG revealed sinus rhythm Telemetry revealed occasions of atrial fibrillation. There was occasional sustained ventricular tachycardia. EMS tele monitor revealed ventricular fibrillation for which the patient was shocked. Has remained sinus rhythm. Later with A-fib with MVR LHC revealed: Patent RICHMOND to LAD; Patent SVG to obtuse marginal; LVEF of 20% with increased EDP; Proximal disease in LAD/LCX RICHIE was performed: Consistent with severely reduced LVEF. Consistent with previously implanted Mitral ring, Up to moderate Mitral stenosis/Mitral Regurgitation and also Moderate Aortic insufficiency. Patient is a 54-year-old female who presented with witnessed syncope. She was found to have ventricular fibrillation for which was shocked. Later had repeated episode of sustained ventricular tachycardia. Patient has been kept in ICU. Does have baseline history of coronary artery disease for which has had bypass surgery. Left heart catheterization was performed which revealed patent RICH[place]D and patent SVG. ACS is not considered at this point. It is of note that the patient's echocardiogram reveals significantly use systolic function. Valvular heart disease is considered. Findings are in favor of previously implanted mitral ring. By reviewing the echo images, component of up to moderate mitral stenosis could not be ruled out. LHC was performed that ruled out any active specific ischemia as an etiology for presentation. Is off Amiodarone for abnormal LFT. Being followed by Nephrology / Pulmonary / Neurology / GI ID. Tele has remained sinus rhythm. Had episode of a-fib with RVR. Was loaded with Digoxin. Dig level was performed at wrong timing (only 5 hours after the last Dig given). Dig toxicity is not considered. Patient is back to normal sinus rhythm. Has good kidney function. Repeat Dig level is acceptable level. s/p ICD implantation by EP. Intubated, later extubated. s/p PEG. Later had respiratory failure and was taken back to ICU. Imaging question pneumonia (can it be aspiration?). Eventhough repeat BNP has not increased (decreased somehow), patient does have peripheral edema and component of acute on chronic Systolic heart failure could also contribute to respiratory failure. The site of ICD implantation was reviewed by EP (Dr Armstrong on 05/13/2024): healing well (personal communication). Had repeat respiratory failure, back in ICU and intubated. Abnormal LFT. Found to have gall stone and Liver cirrhosis. Extubated and transferred back to tele floor Syncope V-fib s/p shock Sustained V-tach Paroxysmal A-fib VHD, s/p Mitral ring Systolic heart failure Abnormal LFT, at a point resolved, later appeared again s/p ICD (Biotronik) implantation by EP (Dr Armstrong) s/p PRBC transfusion for significant anemia Hepatic Steatosis Gallstones Failed Swallowing s/p PEG Acute respiratory failure Acute on chronic systolic heart failure Gallstone Liver cirrhosis s/p repeated intubation and extubations Cardiac suggestion for management: Manage in Tele IV diuresis Follow up electrolytes and kidney function test and correct abnormalities Full anticoagulation (a-fib with high CHADS-Vasc score). s/p ICD implantation. On Eliquis On Mexiletine Cardiac arenas, stable s/p ICD (Biotronik) implantation by EP Eliquis: 2.5 mg BID s/p PEG Passed swallowing evaluation Pulmonary Follow up GI follow up Cardiac arenas (hemodynamically): stable Management of repeat respiratory failure, pneumonia as per primary team/pulmonary Provide previous medical records from reaching out to previous hospitals in [facility]... Further evaluation and management depends on the above and clinical course. A total of 75 minutes was spent reviewing the patient record, examining the patient, making a diagnostic and therapeutic plan, discussing this plan with medical personnel, following up on diagnostic studies and following the patient for clinical stability excluding any and all procedures. At least 50% of this time was spent in direct, [id number] contact. Thank you for allowing me to participate in this patient's care. Further recommendations will depend on patient's clinical course. Please do not hesitate to contact me if you have any questions or concerns. This medical document was created using electronic medical record system with [employer] dictation system. Although this document has been carefully reviewed, there may still be some phonetic and typographical errors. These areas are purely typographical due to the imperfection of the software programs, and do not reflect any compromise in the patient's medical care. Dietary Evaluation Review Comments: 1) TF Jevity 1.2Cal @ 55 ml/hr. x 24hr along with Pro-stat 1 pk daily. Start @ 20ml/hr, increase 10ml/hr Q4H until goal is reached. TF @ goal volume provides 1684 kcal (100% energy needs), 88 gm protein (100% protein needs), 1065 ml free water. 2) Water flush 100ml Q4H if allowed, adjust PRN 3) Advance to cardiac diet as medically feasible 4) Monitor NPO status, lab values, wt trend, I/O Expected Outcomes/Goals: To meet >75% estimated needs within 7 days Lab values to improve Fu 2-3 days Plan discussed with: Patient, Other (nurse) CORDELL VERA MD Dec 02, 2024 07:29
--- NOTE | 2024-12-02 08:29 | DVHPN2 ---
Progress Note - Dictate Date Seen: Dec 02, 2024 Has the PT tested + for MRSA If YES, has PT been informed?: No Medical Necessity Reason Pt with a Central, PICC or Fol: No The following are medically ne: PICC Line, Cutler Catheter Reason for cutler catheter: Strict I&O vital signs Vital Sign Date Time Temp Pulse Resp B/P (MAP) Pulse Ox O2 Delivery O2 Flow Rate FiO2 12/02/24 05:33 106/58 12/02/24 05:00 97.9 72 16 98 97.9 12/01/24 20:00 Room Air* 0 21 Total Intake and Output 12/01/24 12/01/24 12/02/24 15:00 23:00 07:00 Intake Total 1555 ml 1395 ml Output Total 1900 ml 600 ml Balance -345 ml 795 ml medications Current Medications Medications Dose Ordered Sig/Liliam Route Start Time Stop Time Status Last Admin Dose Admin Amino Acids 0 ml @ 0 mls/hr PER PHARMACY IV 10/15/24 18:45 Cancel Dextrose 50 ml UD IV 10/16/24 09:30 Cancel Vancomycin HCl 0 ml @ 0 mls/hr UD IV 10/19/24 14:00 Cancel Amino Acids 0 ml @ 0 mls/hr PER PHARMACY IV 11/04/24 22:00 Cancel Pantoprazole Sodium 40 mg BID IV 11/09/24 22:00 12/01/24 21:59 40 MG Mexiletine HCl 150 mg TID GT 11/10/24 22:00 12/02/24 05:32 150 MG Fat Emulsion Intravenous 150 ml/Sodium Acetate 20 meq/Potassium Acetate 30 meq/ Potassium Phosphate 19.8 meq/Calcium Gluconate 2.3 meq/ Magnesium Sulfate 4 meq/ Multivitamins 10 ml/Chromium/ Copper/Manganese/ Zinc 1 ml/Amino Acids/Dextrose/ Purified Water 1,596.4462 ml @ 66 mls/hr [id number] IV 11/11/24 22:00 11/12/24 21:59 Cancel Furosemide 40 mg BIDD IV 11/14/24 18:00 12/02/24 05:33 40 MG Acetaminophen 650 mg Q4HR PRN GT 11/17/24 08:30 12/01/24 22:00 650 MG Potassium Bicarbonate 50 meq BID PEG 11/18/24 22:00 12/01/24 21:59 50 MEQ Enteral Nutritional Formula 1,000 ml 55ML/HR GT 11/19/24 15:00 11/30/24 21:18 1,000 ML Lorazepam 1 mg ONCE PRN IV 11/20/24 10:30 Apixaban 2.5 mg BID PEG 11/26/24 22:00 12/01/24 21:59 2.5 MG Amino Acid Protein 30 ml DAILY GT 11/30/24 10:00 11/30/24 12:56 30 ML Albuterol 2.5 mg Q4HPRN PRN NEB 12/01/24 11:45 Ipratropium [place] 0.5 mg Q4HPRN PRN NEB 12/01/24 11:45 objective HEENT: EOMI, PERRLA, normal external inspect of ears, no icterus, no nasal drainage Neck: no carotid bruit, no jugular venous distention (JVD), no lymphadenopathy Chest: normal thorax Respiratory: Intubated, clear to auscultation, normal air movement Cardiovascular: regular rate and rhythm, no diastolic murmur, no jugular venous distention (JVD), no rub, no systolic murmur Abdominal: soft, no hepatomegaly, no mass, no splenomegaly, no tenderness Genitourinary: grossly normal external Musculoskeletal: no joint tenderness, no swelling Extremities: normal pulses, no calf tenderness, no clubbing, no cyanosis, no edema Skin: no bruising, no jaundice, no rash Neurological: No focal deficit laboratory and microbiology Laboratory Tests 12/01/24 05:16 Test 12/01/24 05:16 Range/Units Serum Glucose 118 H 74-106 mg/dL Problem List Cardiac Arrest with Ventricular Fibrillation Assessment: Patient experienced cardiac arrest with ventricular fibrillation on 10/07/24, witnessed by family members who initiated CPR. EMS found the patient in ventricular fibrillation and administered shock therapy. Rhythm strip analysis confirmed ventricular fibrillation. Patient required intubation and sedation upon ED arrival. Currently admitted to ICU for close observation. Cardiology has been consulted and plans for AICD placement, likely on Tuesday. Infectious disease clearance has been obtained for the AICD procedure, addressing initial concerns of leukocytosis which is now improving. Status post-cardiac arrest. Plan: - Continue ICU monitoring - Proceed with AICD placement as planned (likely Tuesday), cleared by infectious disease. - Maintain intubation and sedation until AICD placement - Continue Heparin drip for paroxysmal atrial fibrillation - Continue Mexitil - DC amiodarone due to transaminitis - added esmolol drip per Cardiology for AFib and added push doses of digoxin Coronary Artery Disease Assessment: Patient with history of 2-vessel CABG (Coronary Artery Bypass Grafting). Surgical intervention previously performed to address significant coronary artery stenosis. Plan: - Continue medical management - Follow up with cardiology for ongoing coronary artery disease management Acute and Chronic Systolic Heart Failure Assessment: Patient has acute and chronic systolic heart failure with severely reduced left ventricular function. Ejection fraction is estimated at 15-20%. RICHIE findings are consistent with severely reduced left ventricular ejection fraction, previously implanted mitral ring, up to moderate mitral stenosis and regurgitation, and moderate aortic insufficiency. Plan: - Continue cardiology consultation - continue IV diuretics (IV Lasix) - Monitor renal function Acute Hypoxic Respiratory Failure Assessment: Patient is currently intubated due to acute hypoxic respiratory failure. Dr. Downey from pulmonology is managing this aspect of care. Plan: - Maintain current intubation as per pulmonology recommendation - Proceed with CPAP trials when deemed appropriate by pulmonology Transaminitis Assessment: Patient has elevated liver function tests, likely secondary to amiodarone use. Cardiology has discontinued amiodarone in response. Plan: - Monitor liver function tests - Amiodarone discontinued as per cardiology Enterobacter PNA Assessment: Sputum culture positive for Enterobacter. Plan: - Continue treatment with Eratapenem to complete 10 days regimen -Infectious disease consult Hemodynamic Support Assessment: Patient requires vasopressor support for hemodynamic stability. Plan: - Continue vasopressin - Continue neosynephrine Paroxysmal a fib -DC amiodarone -continue with heparin gtt Shock liver GI consult, trend liver enzymes, hepatitis panel was negative. Ultrasound of the liver had no acute findings. Assessment/Plan Subjective: Patient is awake and alert. Objective: No change to patient's status. Patient apparently refused physical therapy on Tuesday. RN is to follow up with physical therapy today. Patient was admitted on 10/07/2024 for cardiac arrest. Patient is status post AICD placement. She has been extubated twice from the ventilator due to respiratory failure and aspiration pneumonia. Patient had sepsis with Enterobacter pneumonia and currently VRE in her urine. She is awaiting transfer to a custodial facility for continued rehab. Patient did have speech therapy reevaluate her yesterday. She had a PEG tube placed due to high risk for aspiration. She did pass her swallow eval yesterday and she was placed on a pureed diet. Plan: Continue tube feeding for now. Patient has lost weight and is very deconditioned. Continue pureed diet as tolerated. Continue physical therapy. DC planning to custodial facility once bed is available. Dietary Evaluation Review Comments: 1) TF Jevity 1.2Cal @ 55 ml/hr. x 24hr along with Pro-stat 1 pk daily. Start @ 20ml/hr, increase 10ml/hr Q4H until goal is reached. TF @ goal volume provides 1684 kcal (100% energy needs), 88 gm protein (100% protein needs), 1065 ml free water. 2) Water flush 100ml Q4H if allowed, adjust PRN 3) Advance to cardiac diet as medically feasible 4) Monitor NPO status, lab values, wt trend, I/O Expected Outcomes/Goals: To meet >75% estimated needs within 7 days Lab values to improve Fu 2-3 days Plan discussed with: Patient, Other [employer] Dec 02, 2024 08:29
--- NOTE | 2024-12-02 15:37 | DVHPN2 ---
Progress Note - Dictate Date Seen: Dec 02, 2024 Has the PT tested + for MRSA If YES, has PT been informed?: No Medical Necessity Reason Pt with a Central, PICC or Fol: No The following are medically ne: PICC Line, Cutler Catheter Reason for cutler catheter: Strict I&O vital signs Vital Sign Date Time Temp Pulse Resp B/P (MAP) Pulse Ox O2 Delivery O2 Flow Rate FiO2 12/02/24 13:00 98.1 78 16 104/62 (76) 97 98.1 12/02/24 09:24 Nasal Cannula 1.0 12/02/24 09:24 24 Total Intake and Output 12/01/24 12/01/24 12/02/24 15:00 23:00 07:00 Intake Total 1555 ml 1395 ml Output Total 1900 ml 600 ml Balance -345 ml 795 ml medications Current Medications Medications Dose Ordered Sig/Liliam Route Start Time Stop Time Status Last Admin Dose Admin Amino Acids 0 ml @ 0 mls/hr PER PHARMACY IV 10/15/24 18:45 Cancel Dextrose 50 ml UD IV 10/16/24 09:30 Cancel Vancomycin HCl 0 ml @ 0 mls/hr UD IV 10/19/24 14:00 Cancel Amino Acids 0 ml @ 0 mls/hr PER PHARMACY IV 11/04/24 22:00 Cancel Pantoprazole Sodium 40 mg BID IV 11/09/24 22:00 12/02/24 10:27 40 MG Mexiletine HCl 150 mg TID GT 11/10/24 22:00 12/02/24 14:12 150 MG Fat Emulsion Intravenous 150 ml/Sodium Acetate 20 meq/Potassium Acetate 30 meq/ Potassium Phosphate 19.8 meq/Calcium Gluconate 2.3 meq/ Magnesium Sulfate 4 meq/ Multivitamins 10 ml/Chromium/ Copper/Manganese/ Zinc 1 ml/Amino Acids/Dextrose/ Purified Water 1,596.4462 ml @ 66 mls/hr [id number] IV 11/11/24 22:00 11/12/24 21:59 Cancel Furosemide 40 mg BIDD IV 11/14/24 18:00 12/02/24 05:33 40 MG Acetaminophen 650 mg Q4HR PRN GT 11/17/24 08:30 12/01/24 22:00 650 MG Potassium Bicarbonate 50 meq BID PEG 11/18/24 22:00 12/02/24 10:27 50 MEQ Enteral Nutritional Formula 1,000 ml 55ML/HR GT 11/19/24 15:00 11/30/24 21:18 1,000 ML Lorazepam 1 mg ONCE PRN IV 11/20/24 10:30 Apixaban 2.5 mg BID PEG 11/26/24 22:00 12/02/24 10:27 2.5 MG Amino Acid Protein 30 ml DAILY GT 11/30/24 10:00 12/02/24 10:27 30 ML Albuterol 2.5 mg Q4HPRN PRN NEB 12/01/24 11:45 Ipratropium [place] 0.5 mg Q4HPRN PRN NEB 12/01/24 11:45 laboratory and microbiology Laboratory Tests 12/01/24 05:16 Test 12/01/24 05:16 Range/Units Serum Glucose 118 H 74-106 mg/dL Assessment/Plan impression s/p cardiac arrest VT CPR <5 min elevated troponin acute resp failure atelectases s/p PM pt seen and examined events s/p extubation low oxygen requirements on 1 liter nasal cannula appears very deconditioned labs and imaging studies reviewed management plan supplemental oxygen awaiting placement Dietary Evaluation Review Comments: 1) TF Jevity 1.2Cal @ 55 ml/hr. x 24hr along with Pro-stat 1 pk daily. Start @ 20ml/hr, increase 10ml/hr Q4H until goal is reached. TF @ goal volume provides 1684 kcal (100% energy needs), 88 gm protein (100% protein needs), 1065 ml free water. 2) Water flush 100ml Q4H if allowed, adjust PRN 3) Advance to cardiac diet as medically feasible 4) Monitor NPO status, lab values, wt trend, I/O Expected Outcomes/Goals: To meet >75% estimated needs within 7 days Lab values to improve Fu 2-3 days Plan discussed with: Other (Rn) BELLO ROTHMAN MD Dec 02, 2024 15:36
[2024-12-03] VITALS (10 sets, daily range): BP systolic 100–130; BP diastolic 54–80; PULSE 77–91; RESP 15–18; TEMP 97.7–98.3; O2SAT 92–98
--- NOTE | 2024-12-03 08:40 | DVHPN2 ---
Progress Note - Dictate Date Seen: Dec 03, 2024 Has the PT tested + for MRSA If YES, has PT been informed?: No Medical Necessity Reason Pt with a Central, PICC or Fol: No The following are medically ne: PICC Line, Cutler Catheter Reason for cutler catheter: Strict I&O vital signs Vital Sign Date Time Temp Pulse Resp B/P (MAP) Pulse Ox O2 Delivery O2 Flow Rate FiO2 12/03/24 06:08 112/63 12/03/24 05:00 98.0 79 15 95 98.0 12/02/24 20:00 Nasal Cannula* 1 24 Total Intake and Output 12/02/24 12/02/24 12/03/24 15:00 23:00 07:00 Intake Total 465 ml 450 ml Output Total 1150 ml 1600 ml Balance -685 ml -1150 ml medications Current Medications Medications Dose Ordered Sig/Liliam Route Start Time Stop Time Status Last Admin Dose Admin Amino Acids 0 ml @ 0 mls/hr PER PHARMACY IV 10/15/24 18:45 Cancel Dextrose 50 ml UD IV 10/16/24 09:30 Cancel Vancomycin HCl 0 ml @ 0 mls/hr UD IV 10/19/24 14:00 Cancel Amino Acids 0 ml @ 0 mls/hr PER PHARMACY IV 11/04/24 22:00 Cancel Pantoprazole Sodium 40 mg BID IV 11/09/24 22:00 12/02/24 22:01 40 MG Mexiletine HCl 150 mg TID GT 11/10/24 22:00 12/03/24 06:06 150 MG Fat Emulsion Intravenous 150 ml/Sodium Acetate 20 meq/Potassium Acetate 30 meq/ Potassium Phosphate 19.8 meq/Calcium Gluconate 2.3 meq/ Magnesium Sulfate 4 meq/ Multivitamins 10 ml/Chromium/ Copper/Manganese/ Zinc 1 ml/Amino Acids/Dextrose/ Purified Water 1,596.4462 ml @ 66 mls/hr [id number] IV 11/11/24 22:00 11/12/24 21:59 Cancel Furosemide 40 mg BIDD IV 11/14/24 18:00 12/03/24 06:08 40 MG Acetaminophen 650 mg Q4HR PRN GT 11/17/24 08:30 12/01/24 22:00 650 MG Potassium Bicarbonate 50 meq BID PEG 11/18/24 22:00 12/02/24 21:21 50 MEQ Enteral Nutritional Formula 1,000 ml 55ML/HR GT 11/19/24 15:00 12/02/24 21:29 1,000 ML Lorazepam 1 mg ONCE PRN IV 11/20/24 10:30 Apixaban 2.5 mg BID PEG 11/26/24 22:00 12/02/24 21:22 2.5 MG Amino Acid Protein 30 ml DAILY GT 11/30/24 10:00 12/02/24 10:27 30 ML Albuterol 2.5 mg Q4HPRN PRN NEB 12/01/24 11:45 Ipratropium [place] 0.5 mg Q4HPRN PRN NEB 12/01/24 11:45 laboratory and microbiology Laboratory Tests 12/01/24 05:16 Test 12/01/24 05:16 Range/Units Serum Glucose 118 H 74-106 mg/dL Assessment/Plan Alert, NAD Passed swallowing evaluation. (on original arrival to hospital): Patient is a 54-year-old female who was brought to the hospital for witnessed syncope. She is intubated and is being managed in ICU. Information was obtained by reviewing the chart and communicating with patient's son (over the phone). Family recognized witnessed syncope and started CPR and called EMS. Reportedly, EMS found the patient in ventricular fibrillation and shocked the patient and brought the patient to the hospital. Patient was intubated in emergency room and transferred to ICU. Patient was on amiodarone drip. Later the patient had ventricular tachycardia (Systane). High sensitive troponin had been minimally/flatly elevated. Presentation was not in favor of acute coronary syndrome. Cardiology is involved for cardiac aspects of care. NAD No JVD. Mucosa pale. No carotid bruit. Scattered rhonchi in the lungs is heard. Cardiac: Regular, no thrill. Systolic murmur 2/6 in apex is heard. Abdomen is soft. 3+ edema in extremities. Past medical history as per son: Congenital heart disease, status post bypass Troponin (high sensitive): 141 - 138 - 117 BNP: 457.16 - 1073.91 - 928.14 Digoxin level: 2.83 - 1.25 - 0.98 UDS: non-revealing Chest x-ray revealed: Lines and Tubes: Endotracheal tube tip projects approximately 1.4 cm above the level of the tyler. Enteric catheter courses below the lateral of the diaphragm and terminates beyond the inferior margin of the image. Right internal jugular central venous catheter terminates within the distal superior vena cava. Lungs: Moderate diffuse increased prominence of the pulmonary vasculature without evidence of focal consolidation. Pleura: No effusion. No pneumothorax. Cardiomediastinal contours: Cardiomegaly. Bones: Unremarkable IMPRESSION: 1. Cardiomegaly and diffuse increased prominence of the pulmonary vasculature. 2. Lines and tubes as above. Repeat chest x-ray revealed: IMPRESSION: 1. Endotracheal tube tip 1.6 cm above the tyler; consider 2 cm retraction 2. Mild pulmonary vascular congestion. Moderate cardiomegaly. Repeat chest xry revealed: IMPRESSION: Endotracheal tube tip 1.6 cm above the tyler; consider 2 cm retraction Mild pulmonary vascular congestion. Moderate cardiomegaly. Repeat chest xry revealed: IMPRESSION: 1. Stable cardiomegaly, small left pleural effusion and mild diffuse increased prominence of the pulmonary vasculature. 2. Repositioned endotracheal tube as above. Remaining lines and tubes unchanged. Repeat chest xry revealed: IMPRESSION: 1. Cardiomegaly, stable diffuse increased prominence of the pulmonary vasculature and small bilateral pleural effusions. 2. Slight interval advancement of endotracheal tube as above. Remaining lines and tubes unchanged. Repeat chest xry revealed: IMPRESSION: 1. Slight interval decrease in diffuse increased prominence of the pulmonary vasculature. 2. Stable cardiomegaly and small left pleural effusion. 3. Lines and tubes unchanged. Repeat chest xry revealed: IMPRESSION: 1. Cardiomegaly and small left pleural effusion. 2. Lines and tubes unchanged. Repeat chest xry revealed: IMPRESSION: Stable lines and tubes. Similar lung aeration. Repeat chest xry revealed: IMPRESSION: Cardiomegaly and small left pleural effusion. Lines and tubes unchanged. Repeat chest xry revealed: IMPRESSION: Placement of a cardiac pacer, no pneumothorax is seen. Stable lines and tubes. Repeat chest xry revealed: IMPRESSION: 1. Worsening mixed opacities in the right lower lung. No other significant change from the previous study. Stable support devices. Repeat chest xry revealed: Heart is prominent in size with postsurgical changes, median sternotomy wires, and a single lead left cardiac defibrillator. Support lines and tubes appear unchanged in satisfactory in position. No sizable effusion or pneumothorax. Mild pulmonary vascular congestion. No significant interval change. Repeat chest xry revealed: IMPRESSION: 1. No significant change from the previous study. Stable support devices. Similar findings of heart failure including left pleural effusion. Repeat chest xry revealed: IMPRESSION: 1. No significant change from the previous study. Stable support devices. Similar findings of heart failure including trace left pleural effusion. Repeat chest xry revealed: Lines and Tubes: Unchanged. Left anterior chest wall cardiac pacing device. Lungs: Clear Pleura: No effusion. No pneumothorax. Cardiomediastinal contours: Cardiomegaly. Bones: Unremarkable IMPRESSION: 1. Cardiomegaly. 2. Lines and tubes unchanged. Repeat chest xry revealed: IMPRESSION: Lines and tubes in satisfactory position. No significant interval change. Repeat chest xry revealed: Lines and Tubes: ET tube and NG tube removed. Lungs: Congestion Pleura: No effusion. No pneumothorax. Cardiomediastinal contours: Cardiomegaly Bones: Unremarkable IMPRESSION: 1. Cardiomegaly with CHF. Repeat chest xry revealed: IMPRESSION: 1. Cardiomegaly. 2. Patchy bilateral airspace disease. Repeat chest xry revealed: FINDINGS: Lines and Tubes: None. Left anterior chest wall cardiac pacing device. Lungs: Extensive multifocal bilateral pulmonary airspace disease in a predominantly perihilar and bibasilar distribution with consolidative features. Pleura: No effusion. No pneumothorax. Cardiomediastinal contours: Poorly evaluated secondary to extensive bilateral infiltrate. Bones: Unremarkable IMPRESSION: 1. Extensive multifocal bilateral pulmonary airspace disease in a predominantly perihilar and bibasilar distribution with consolidative features. Repeat chest xry revealed: IMPRESSION: 1. Status post interval intubation. Endotracheal tube tip projects approximately 2.4 cm above the level of the tyler. 2. Grossly stable appearing moderate patchy multifocal bilateral pulmonary airspace disease with consolidative features. 3. Cardiomegaly. Repeat chest xry revealed: IMPRESSION: No significant interval change. Repeat chest xry revealed: IMPRESSION: No significant interval change Repeat chest xry revealed: IMPRESSION: 1. Interval retraction of the endotracheal tube such that the tip now projects approximately 4.5 cm above the level of the tyler. 2. Cardiomegaly. Repeat chest xry revealed: IMPRESSION: 1. Mild interval advancement of the endotracheal tube such that the tip now projects approximately 3.3 cm above the level of the tyler. 2. No evidence of acute cardiopulmonary process. Repeat chest xry revealed: IMPRESSION: Lines and tubes in satisfactory position. No significant interval change. Repeat chest xry revealed: IMPRESSION: 1. Interval advancement of endotracheal tube such that the tip now projects approximately 3.7 cm above the level of the tyler. Remaining lines and tubes unchanged. 2. Cardiomegaly. Repeat chest xry revealed: IMPRESSION: Unchanged pulmonary vascular congestion. Repeat chest xry revealed: IMPRESSION: No significant interval change. Repeat chest xry revealed: IMPRESSION: 1. Interval retraction of endotracheal tube such that the tip now projects approximately 4.5 cm above the level of the tyler. Remaining lines and tubes unchanged. 2. Cardiomegaly. Repeat chest xry revealed: IMPRESSION: 1. Appropriate position of the support lines and tubes. 2. No acute pulmonary disease. 3. Stable cardiomegaly. Gall Bladder Ultrasound revealed: IMPRESSION: Gallstones are noted. Hepatic steatosis Trace ascites Trace bilateral pleural effusions. Hepatic cirrhosis. Liver Ultrasound revealed: Hepatic steatosis. Trace right pleural effusion. Trace ascites Gallstones Bladder ultrasound revealed: IMPRESSION: 1. Cutler catheter in the bladder in the bladder is decompressed. Repeat Bladder Ultrasound revealed: Urinary bladder is unremarkable with prevoid volume of 29 mL. Urinary bladder wall measures 1.5 mm. Cutler catheter is noted. KUB revealed: IMPRESSION: Nonobstructive bowel gas pattern. Nasogastric tube tip in the stomach. Large stool burden. Repeat KUB revealed: Right lower extremity PICC line with tip projecting over the expected region of the intrahepatic IVC. Nasogastric tube projecting towards the distal stomach. Nonspecific bowel gas pattern. Cardiomegaly and left basilar airspace opacities, incompletely characterized. Atherosclerotic calcification disease. Repeat KUB revealed: IMPRESSION: 1. Nonspecific nonobstructive bowel gas pattern. 2. Gastrostomy tube projects over the midportion of the left hemiabdomen. 3. Right femoral approach central venous catheter as described above. Repeat KUB revealed: IMPRESSION: Nonobstructive bowel gas pattern. Right central venous catheter tip in the IVC Cutler catheter overlying the bladder. Left upper ext arterial duplex: IMPRESSION: No hemodynamically significant stenosis based on peak systolic velocity criteria. Left lower ext arterial duplex: IMPRESSION: There is no evidence for peripheral vascular insufficiency in the left lower extremity. No significant focal stenosis is identified. Liver Ultrasound revealed: Hepatic steatosis. Hepatomegaly. Cholelithiasis. CT of the head revealed: IMPRESSION: No acute intracranial abnormality. Repeat CT of head revealed: IMPRESSION: No acute intracranial abnormality. Repeat CT of Head revealed: IMPRESSION: No acute intracranial abnormality. Repeat CT of head revealed: IMPRESSION: 1. No acute intracranial abnormality. 2. No findings to suggest territorial ischemia. Echocardiogram reported: lvef 15-20% dilated LV severe global dysfunction mild RV dysfunction biatrial enlargement mild moderate MAC, moderate mitral regurg mild to moderate aortic regug (images of echo reviewed and questioned presence of mitral ring and also some component (moderate of Mitral stenosis) EKG revealed sinus rhythm Telemetry revealed occasions of atrial fibrillation. There was occasional sustained ventricular tachycardia. EMS tele monitor revealed ventricular fibrillation for which the patient was shocked. Has remained sinus rhythm. Later with A-fib with MVR LHC revealed: Patent RICHMODN to LAD; Patent SVG to obtuse marginal; LVEF of 20% with increased EDP; Proximal disease in LAD/LCX RICHIE was performed: Consistent with severely reduced LVEF. Consistent with previously implanted Mitral ring, Up to moderate Mitral stenosis/Mitral Regurgitation and also Moderate Aortic insufficiency. Patient is a 54-year-old female who presented with witnessed syncope. She was found to have ventricular fibrillation for which was shocked. Later had repeated episode of sustained ventricular tachycardia. Patient has been kept in ICU. Does have baseline history of coronary artery disease for which has had bypass surgery. Left heart catheterization was performed which revealed patent RICHMOND and patent SVG. ACS is not considered at this point. It is of note that the patient's echocardiogram reveals significantly use systolic function. Valvular heart disease is considered. Findings are in favor of previously implanted mitral ring. By reviewing the echo images, component of up to moderate mitral stenosis could not be ruled out. LHC was performed that ruled out any active specific ischemia as an etiology for presentation. Is off Amiodarone for abnormal LFT. Being followed by Nephrology / Pulmonary / Neurology / GI ID. Tele has remained sinus rhythm. Had episode of a-fib with RVR. Was loaded with Digoxin. Dig level was performed at wrong timing (only 5 hours after the last Dig given). Dig toxicity is not considered. Patient is back to normal sinus rhythm. Has good kidney function. Repeat Dig level is acceptable level. s/p ICD implantation by EP. Intubated, later extubated. s/p PEG. Later had respiratory failure and was taken back to ICU. Imaging question pneumonia (can it be aspiration?). Eventhough repeat BNP has not increased (decreased somehow), patient does have peripheral edema and component of acute on chronic Systolic heart failure could also contribute to respiratory failure. The site of ICD implantation was reviewed by EP (Dr Armstrong on 05/13/2024): healing well (personal communication). Had repeat respiratory failure, back in ICU and intubated. Abnormal LFT. Found to have gall stone and Liver cirrhosis. Extubated and transferred back to tele floor Syncope V-fib s/p shock Sustained V-tach Paroxysmal A-fib VHD, s/p Mitral ring Systolic heart failure Abnormal LFT, at a point resolved, later appeared again s/p ICD (Biotronik) implantation by EP (Dr Armstrong) s/p PRBC transfusion for significant anemia Hepatic Steatosis Gallstones Failed Swallowing s/p PEG Acute respiratory failure Acute on chronic systolic heart failure Gallstone Liver cirrhosis s/p repeated intubation and extubations Cardiac suggestion for management: Manage in Tele IV diuresis Follow up electrolytes and kidney function test and correct abnormalities Full anticoagulation (a-fib with high CHADS-Vasc score). s/p ICD implantation. On Eliquis On Mexiletine Cardiac arenas, stable s/p ICD (Biotronik) implantation by EP Eliquis: 2.5 mg BID s/p PEG Passed swallowing evaluation Cardiac arenas (hemodynamically): stable Management of repeat respiratory failure, pneumonia as per primary team/pulmonary Provide previous medical records from reaching out to previous hospitals in [facility]... Further evaluation and management depends on the above and clinical course. A total of 55 minutes was spent reviewing the patient record, examining the patient, making a diagnostic and therapeutic plan, discussing this plan with medical personnel, following up on diagnostic studies and following the patient for clinical stability excluding any and all procedures. At least 50% of this time was spent in direct, [id number] contact. Thank you for allowing me to participate in this patient's care. Further recommendations will depend on patient's clinical course. Please do not hesitate to contact me if you have any questions or concerns. This medical document was created using electronic medical record system with [employer] dictation system. Although this document has been carefully reviewed, there may still be some phonetic and typographical errors. These areas are purely typographical due to the imperfection of the software programs, and do not reflect any compromise in the patient's medical care. Dietary Evaluation Review Comments: 1) TF Jevity 1.2Cal @ 55 ml/hr. x 24hr along with Pro-stat 1 pk daily. Start @ 20ml/hr, increase 10ml/hr Q4H until goal is reached. TF @ goal volume provides 1684 kcal (100% energy needs), 88 gm protein (100% protein needs), 1065 ml free water. 2) Water flush 100ml Q4H if allowed, adjust PRN 3) Advance to cardiac diet as medically feasible 4) Monitor NPO status, lab values, wt trend, I/O Expected Outcomes/Goals: To meet >75% estimated needs within 7 days Lab values to improve Fu 2-3 days Plan discussed with: Patient, Other (nurse) CORDELL VERA MD Dec 03, 2024 08:40
--- NOTE | 2024-12-03 11:30 | DVHPN2 ---
Progress Note - Dictate Date Seen: Dec 03, 2024 Has the PT tested + for MRSA If YES, has PT been informed?: No Medical Necessity Reason Pt with a Central, PICC or Fol: No The following are medically ne: PICC Line, Cutler Catheter Reason for cutler catheter: Strict I&O vital signs Vital Sign Date Time Temp Pulse Resp B/P (MAP) Pulse Ox O2 Delivery O2 Flow Rate FiO2 12/03/24 09:21 97 Room Air 12/03/24 09:21 0 21 12/03/24 09:00 97.7 79 17 114/75 (88) 97.7 Total Intake and Output 12/02/24 12/02/24 12/03/24 15:00 23:00 07:00 Intake Total 465 ml 450 ml Output Total 1150 ml 1600 ml Balance -685 ml -1150 ml medications Current Medications Medications Dose Ordered Sig/Liliam Route Start Time Stop Time Status Last Admin Dose Admin Amino Acids 0 ml @ 0 mls/hr PER PHARMACY IV 10/15/24 18:45 Cancel Dextrose 50 ml UD IV 10/16/24 09:30 Cancel Vancomycin HCl 0 ml @ 0 mls/hr UD IV 10/19/24 14:00 Cancel Amino Acids 0 ml @ 0 mls/hr PER PHARMACY IV 11/04/24 22:00 Cancel Pantoprazole Sodium 40 mg BID IV 11/09/24 22:00 12/03/24 09:25 40 MG Mexiletine HCl 150 mg TID GT 11/10/24 22:00 12/03/24 06:06 150 MG Fat Emulsion Intravenous 150 ml/Sodium Acetate 20 meq/Potassium Acetate 30 meq/ Potassium Phosphate 19.8 meq/Calcium Gluconate 2.3 meq/ Magnesium Sulfate 4 meq/ Multivitamins 10 ml/Chromium/ Copper/Manganese/ Zinc 1 ml/Amino Acids/Dextrose/ Purified Water 1,596.4462 ml @ 66 mls/hr [id number] IV 11/11/24 22:00 11/12/24 21:59 Cancel Furosemide 40 mg BIDD IV 11/14/24 18:00 12/03/24 06:08 40 MG Acetaminophen 650 mg Q4HR PRN GT 11/17/24 08:30 12/01/24 22:00 650 MG Potassium Bicarbonate 50 meq BID PEG 11/18/24 22:00 12/03/24 09:25 50 MEQ Enteral Nutritional Formula 1,000 ml 55ML/HR GT 11/19/24 15:00 12/02/24 21:29 1,000 ML Lorazepam 1 mg ONCE PRN IV 11/20/24 10:30 Apixaban 2.5 mg BID PEG 11/26/24 22:00 12/03/24 09:25 2.5 MG Amino Acid Protein 30 ml DAILY GT 11/30/24 10:00 12/02/24 10:27 30 ML Albuterol 2.5 mg Q4HPRN PRN NEB 12/01/24 11:45 Ipratropium [place] 0.5 mg Q4HPRN PRN NEB 12/01/24 11:45 objective HEENT: EOMI, PERRLA, normal external inspect of ears, no icterus, no nasal drainage Neck: no carotid bruit, no jugular venous distention (JVD), no lymphadenopathy Chest: normal thorax Respiratory: Intubated, clear to auscultation, normal air movement Cardiovascular: regular rate and rhythm, no diastolic murmur, no jugular venous distention (JVD), no rub, no systolic murmur Abdominal: soft, no hepatomegaly, no mass, no splenomegaly, no tenderness Genitourinary: grossly normal external Musculoskeletal: no joint tenderness, no swelling Extremities: normal pulses, no calf tenderness, no clubbing, no cyanosis, no edema Skin: no bruising, no jaundice, no rash Neurological: No focal deficit laboratory and microbiology Laboratory Tests 12/01/24 05:16 Test 12/01/24 05:16 Range/Units Serum Glucose 118 H 74-106 mg/dL Problem List Cardiac Arrest with Ventricular Fibrillation Assessment: Patient experienced cardiac arrest with ventricular fibrillation on 10/07/24, witnessed by family members who initiated CPR. EMS found the patient in ventricular fibrillation and administered shock therapy. Rhythm strip analysis confirmed ventricular fibrillation. Patient required intubation and sedation upon ED arrival. Currently admitted to ICU for close observation. Cardiology has been consulted and plans for AICD placement, likely on Tuesday. Infectious disease clearance has been obtained for the AICD procedure, addressing initial concerns of leukocytosis which is now improving. Status post-cardiac arrest. Plan: - Continue ICU monitoring - Proceed with AICD placement as planned (likely Tuesday), cleared by infectious disease. - Maintain intubation and sedation until AICD placement - Continue Heparin drip for paroxysmal atrial fibrillation - Continue Mexitil - DC amiodarone due to transaminitis - added esmolol drip per Cardiology for AFib and added push doses of digoxin Coronary Artery Disease Assessment: Patient with history of 2-vessel CABG (Coronary Artery Bypass Grafting). Surgical intervention previously performed to address significant coronary artery stenosis. Plan: - Continue medical management - Follow up with cardiology for ongoing coronary artery disease management Acute and Chronic Systolic Heart Failure Assessment: Patient has acute and chronic systolic heart failure with severely reduced left ventricular function. Ejection fraction is estimated at 15-20%. RICHIE findings are consistent with severely reduced left ventricular ejection fraction, previously implanted mitral ring, up to moderate mitral stenosis and regurgitation, and moderate aortic insufficiency. Plan: - Continue cardiology consultation - continue IV diuretics (IV Lasix) - Monitor renal function Acute Hypoxic Respiratory Failure Assessment: Patient is currently intubated due to acute hypoxic respiratory failure. Dr. Downey from pulmonology is managing this aspect of care. Plan: - Maintain current intubation as per pulmonology recommendation - Proceed with CPAP trials when deemed appropriate by pulmonology Transaminitis Assessment: Patient has elevated liver function tests, likely secondary to amiodarone use. Cardiology has discontinued amiodarone in response. Plan: - Monitor liver function tests - Amiodarone discontinued as per cardiology Enterobacter PNA Assessment: Sputum culture positive for Enterobacter. Plan: - Continue treatment with Eratapenem to complete 10 days regimen -Infectious disease consult Hemodynamic Support Assessment: Patient requires vasopressor support for hemodynamic stability. Plan: - Continue vasopressin - Continue neosynephrine Paroxysmal a fib -DC amiodarone -continue with heparin gtt Shock liver GI consult, trend liver enzymes, hepatitis panel was negative. Ultrasound of the liver had no acute findings. Assessment/Plan Subjective: Patient is awake and alert. Objective: Patient passed her swallow eval yesterday and was started on a pured diet. Currently she is tolerating about 25% of her meals. She is still currently on tube feeding until she can increase her intake of oral food. Patient was admitted status post cardiac arrest patient had sepsis with Enterococcus pneumonia and VRE in her urine. Patient has been extubated twice as she had aphasia due to prolonged intubation status post G-tube placement and status post AICD. [place]. She states her father has been talking to her tenant. She is working with physical therapy at this time. Plan: Continue current treatment. Continue physical therapy. DC planning down the [facility] for physical therapy. Dietary Evaluation Review Comments: 1) TF Jevity 1.2Cal @ 55 ml/hr. x 24hr along with Pro-stat 1 pk daily. Start @ 20ml/hr, increase 10ml/hr Q4H until goal is reached. TF @ goal volume provides 1684 kcal (100% energy needs), 88 gm protein (100% protein needs), 1065 ml free water. 2) Water flush 100ml Q4H if allowed, adjust PRN 3) Advance to cardiac diet as medically feasible 4) Monitor NPO status, lab values, wt trend, I/O Expected Outcomes/Goals: To meet >75% estimated needs within 7 days Lab values to improve Fu 2-3 days Plan discussed with: Patient, Other BRODIE GARVIN NP Dec 03, 2024 11:29
--- NOTE | 2024-12-03 12:17 | DVH ---
CHEST RADIOGRAPH Indication: folloow up Technique: Single frontal view of the chest was obtained Comparison: XY CHEST PORTABLE on DOS: 11/26/24, XY CHEST XRAY 1 VIEW on DOS: 11/23/24, XY CHEST XRAY 1 VIEW on DOS: 11/22/24 FINDINGS: Lines and Tubes: Pacemaker is in place unchanged 11/26/2024. Sternal wire sutures in place unchanged. Lungs: Interstitial markings are stable Pleura: No effusion. No pneumothorax. Cardiomediastinal contours: Mild cardiomegaly stable Bones: No acute osseous abnormality. IMPRESSION: 1. No significant change from 11/26/2024.
--- NOTE | 2024-12-03 18:24 | DVHPN2 ---
Progress Note - Dictate Date Seen: Dec 03, 2024 Has the PT tested + for MRSA If YES, has PT been informed?: No Medical Necessity Reason Pt with a Central, PICC or Fol: No The following are medically ne: PICC Line, Cutler Catheter Reason for cutler catheter: Strict I&O vital signs Vital Sign Date Time Temp Pulse Resp B/P (MAP) Pulse Ox O2 Delivery O2 Flow Rate FiO2 12/03/24 17:49 105/62 12/03/24 17:00 97.9 84 16 96 97.9 12/03/24 09:21 Room Air 12/03/24 09:21 0 21 Total Intake and Output 12/02/24 12/02/24 12/03/24 15:00 23:00 07:00 Intake Total 465 ml 450 ml Output Total 1150 ml 1600 ml Balance -685 ml -1150 ml medications Current Medications Medications Dose Ordered Sig/Liliam Route Start Time Stop Time Status Last Admin Dose Admin Amino Acids 0 ml @ 0 mls/hr PER PHARMACY IV 10/15/24 18:45 Cancel Dextrose 50 ml UD IV 10/16/24 09:30 Cancel Vancomycin HCl 0 ml @ 0 mls/hr UD IV 10/19/24 14:00 Cancel Amino Acids 0 ml @ 0 mls/hr PER PHARMACY IV 11/04/24 22:00 Cancel Pantoprazole Sodium 40 mg BID IV 11/09/24 22:00 12/03/24 09:25 40 MG Mexiletine HCl 150 mg TID GT 11/10/24 22:00 12/03/24 14:49 150 MG Fat Emulsion Intravenous 150 ml/Sodium Acetate 20 meq/Potassium Acetate 30 meq/ Potassium Phosphate 19.8 meq/Calcium Gluconate 2.3 meq/ Magnesium Sulfate 4 meq/ Multivitamins 10 ml/Chromium/ Copper/Manganese/ Zinc 1 ml/Amino Acids/Dextrose/ Purified Water 1,596.4462 ml @ 66 mls/hr [id number] IV 11/11/24 22:00 11/12/24 21:59 Cancel Furosemide 40 mg BIDD IV 11/14/24 18:00 12/03/24 17:49 40 MG Acetaminophen 650 mg Q4HR PRN GT 11/17/24 08:30 12/01/24 22:00 650 MG Potassium Bicarbonate 50 meq BID PEG 11/18/24 22:00 12/03/24 09:25 50 MEQ Enteral Nutritional Formula 1,000 ml 55ML/HR GT 11/19/24 15:00 12/02/24 21:29 1,000 ML Lorazepam 1 mg ONCE PRN IV 11/20/24 10:30 Apixaban 2.5 mg BID PEG 11/26/24 22:00 12/03/24 09:25 2.5 MG Amino Acid Protein 30 ml DAILY GT 11/30/24 10:00 12/03/24 10:00 30 ML Albuterol 2.5 mg Q4HPRN PRN NEB 12/01/24 11:[address] [place] 0.5 mg Q4HPRN PRN NEB 12/01/24 11:45 laboratory and microbiology Laboratory Tests 12/01/24 05:16 Test 12/01/24 05:16 Range/Units Serum Glucose 118 H 74-106 mg/dL Assessment/Plan impression s/p cardiac arrest VT CPR <5 min elevated troponin acute resp failure atelectases s/p PM pt seen and examined events s/p extubation low oxygen requirements on 1 liter nasal cannula appears deconditioned labs and imaging studies reviewed management plan supplemental oxygen awaiting placement Dietary Evaluation Review Comments: 1) TF Jevity 1.2Cal @ 55 ml/hr. x 24hr along with Pro-stat 1 pk daily. Start @ 20ml/hr, increase 10ml/hr Q4H until goal is reached. TF @ goal volume provides 1684 kcal (100% energy needs), 88 gm protein (100% protein needs), 1065 ml free water. 2) Water flush 100ml Q4H if allowed, adjust PRN 3) Advance to cardiac diet as medically feasible 4) Monitor NPO status, lab values, wt trend, I/O Expected Outcomes/Goals: To meet >75% estimated needs within 7 days Lab values to improve Fu 2-3 days Plan discussed with: Patient BELLO ROTHMAN MD Dec 03, 2024 18:24
[2024-12-04] VITALS (8 sets, daily range): BP systolic 100–108; BP diastolic 51–71; PULSE 74–88; RESP 17–20; TEMP 97.5–98.1; O2SAT 95–99
--- NOTE | 2024-12-04 07:23 | DVHPN2 ---
Progress Note - Dictate Date Seen: Dec 04, 2024 Has the PT tested + for MRSA If YES, has PT been informed?: No Medical Necessity Reason Pt with a Central, PICC or Fol: No The following are medically ne: PICC Line, Cutler Catheter Reason for cutler catheter: Strict I&O vital signs Vital Sign Date Time Temp Pulse Resp B/P (MAP) Pulse Ox O2 Delivery O2 Flow Rate FiO2 12/04/24 05:38 110/65 12/04/24 05:00 98.0 86 17 99 98.0 12/03/24 20:00 Room Air* 0 21 Total Intake and Output 12/03/24 12/03/24 12/04/24 15:00 23:00 07:00 Intake Total 550 ml Output Total 600 ml Balance -50 ml medications Current Medications Medications Dose Ordered Sig/Liliam Route Start Time Stop Time Status Last Admin Dose Admin Amino Acids 0 ml @ 0 mls/hr PER PHARMACY IV 10/15/24 18:45 Cancel Dextrose 50 ml UD IV 10/16/24 09:30 Cancel Vancomycin HCl 0 ml @ 0 mls/hr UD IV 10/19/24 14:00 Cancel Amino Acids 0 ml @ 0 mls/hr PER PHARMACY IV 11/04/24 22:00 Cancel Pantoprazole Sodium 40 mg BID IV 11/09/24 22:00 12/03/24 21:12 40 MG Mexiletine HCl 150 mg TID GT 11/10/24 22:00 12/04/24 05:38 150 MG Fat Emulsion Intravenous 150 ml/Sodium Acetate 20 meq/Potassium Acetate 30 meq/ Potassium Phosphate 19.8 meq/Calcium Gluconate 2.3 meq/ Magnesium Sulfate 4 meq/ Multivitamins 10 ml/Chromium/ Copper/Manganese/ Zinc 1 ml/Amino Acids/Dextrose/ Purified Water 1,596.4462 ml @ 66 mls/hr [id number] IV 11/11/24 22:00 11/12/24 21:59 Cancel Furosemide 40 mg BIDD IV 11/14/24 18:00 12/04/24 05:38 40 MG Acetaminophen 650 mg Q4HR PRN GT 11/17/24 08:30 12/01/24 22:00 650 MG Potassium Bicarbonate 50 meq BID PEG 11/18/24 22:00 12/03/24 21:11 50 MEQ Enteral Nutritional Formula 1,000 ml 55ML/HR GT 11/19/24 15:00 12/03/24 22:30 1,000 ML Lorazepam 1 mg ONCE PRN IV 11/20/24 10:30 Apixaban 2.5 mg BID PEG 11/26/24 22:00 12/03/24 21:11 2.5 MG Amino Acid Protein 30 ml DAILY GT 11/30/24 10:00 12/03/24 10:00 30 ML Albuterol 2.5 mg Q4HPRN PRN NEB 12/01/24 11:45 Cancel Ipratropium Jeannette 0.5 mg Q4HPRN PRN NEB 12/01/24 11:45 Cancel laboratory and microbiology Laboratory Tests 12/01/24 05:16 Test 12/01/24 05:16 Range/Units Serum Glucose 118 H 74-106 mg/dL Assessment/Plan Alert, NAD (on original arrival to hospital): Patient is a 54-year-old female who was brought to the hospital for witnessed syncope. She is intubated and is being managed in ICU. Information was obtained by reviewing the chart and communicating with patient's son (over the phone). Family recognized witnessed syncope and started CPR and called EMS. Reportedly, EMS found the patient in ventricular fibrillation and shocked the patient and brought the patient to the hospital. Patient was intubated in emergency room and transferred to ICU. Patient was on amiodarone drip. Later the patient had ventricular tachycardia (Systane). High sensitive troponin had been minimally/flatly elevated. Presentation was not in favor of acute coronary syndrome. Cardiology is involved for cardiac aspects of care. NAD No JVD. Mucosa pale. No carotid bruit. Scattered rhonchi in the lungs is heard. Cardiac: Regular, no thrill. Systolic murmur 2/6 in apex is heard. Abdomen is soft. 3+ edema in extremities. Past medical history as per son: Congenital heart disease, status post bypass Troponin (high sensitive): 141 - 138 - 117 BNP: 457.16 - 1073.91 - 928.14 Digoxin level: 2.83 - 1.25 - 0.98 UDS: non-revealing Chest x-ray revealed: Lines and Tubes: Endotracheal tube tip projects approximately 1.4 cm above the level of the tyler. Enteric catheter courses below the lateral of the diaphragm and terminates beyond the inferior margin of the image. Right internal jugular central venous catheter terminates within the distal superior vena cava. Lungs: Moderate diffuse increased prominence of the pulmonary vasculature without evidence of focal consolidation. Pleura: No effusion. No pneumothorax. Cardiomediastinal contours: Cardiomegaly. Bones: Unremarkable IMPRESSION: 1. Cardiomegaly and diffuse increased prominence of the pulmonary vasculature. 2. Lines and tubes as above. Repeat chest x-ray revealed: IMPRESSION: 1. Endotracheal tube tip 1.6 cm above the tyler; consider 2 cm retraction 2. Mild pulmonary vascular congestion. Moderate cardiomegaly. Repeat chest xry revealed: IMPRESSION: Endotracheal tube tip 1.6 cm above the tyler; consider 2 cm retraction Mild pulmonary vascular congestion. Moderate cardiomegaly. Repeat chest xry revealed: IMPRESSION: 1. Stable cardiomegaly, small left pleural effusion and mild diffuse increased prominence of the pulmonary vasculature. 2. Repositioned endotracheal tube as above. Remaining lines and tubes unchanged. Repeat chest xry revealed: IMPRESSION: 1. Cardiomegaly, stable diffuse increased prominence of the pulmonary vasculature and small bilateral pleural effusions. 2. Slight interval advancement of endotracheal tube as above. Remaining lines and tubes unchanged. Repeat chest xry revealed: IMPRESSION: 1. Slight interval decrease in diffuse increased prominence of the pulmonary vasculature. 2. Stable cardiomegaly and small left pleural effusion. 3. Lines and tubes unchanged. Repeat chest xry revealed: IMPRESSION: 1. Cardiomegaly and small left pleural effusion. 2. Lines and tubes unchanged. Repeat chest xry revealed: IMPRESSION: Stable lines and tubes. Similar lung aeration. Repeat chest xry revealed: IMPRESSION: Cardiomegaly and small left pleural effusion. Lines and tubes unchanged. Repeat chest xry revealed: IMPRESSION: Placement of a cardiac pacer, no pneumothorax is seen. Stable lines and tubes. Repeat chest xry revealed: IMPRESSION: 1. Worsening mixed opacities in the right lower lung. No other significant change from the previous study. Stable support devices. Repeat chest xry revealed: Heart is prominent in size with postsurgical changes, median sternotomy wires, and a single lead left cardiac defibrillator. Support lines and tubes appear unchanged in satisfactory in position. No sizable effusion or pneumothorax. Mild pulmonary vascular congestion. No significant interval change. Repeat chest xry revealed: IMPRESSION: 1. No significant change from the previous study. Stable support devices. Similar findings of heart failure including left pleural effusion. Repeat chest xry revealed: IMPRESSION: 1. No significant change from the previous study. Stable support devices. Similar findings of heart failure including trace left pleural effusion. Repeat chest xry revealed: Lines and Tubes: Unchanged. Left anterior chest wall cardiac pacing device. Lungs: Clear Pleura: No effusion. No pneumothorax. Cardiomediastinal contours: Cardiomegaly. Bones: Unremarkable IMPRESSION: 1. Cardiomegaly. 2. Lines and tubes unchanged. Repeat chest xry revealed: IMPRESSION: Lines and tubes in satisfactory position. No significant interval change. Repeat chest xry revealed: Lines and Tubes: ET tube and NG tube removed. Lungs: Congestion Pleura: No effusion. No pneumothorax. Cardiomediastinal contours: Cardiomegaly Bones: Unremarkable IMPRESSION: 1. Cardiomegaly with CHF. Repeat chest xry revealed: IMPRESSION: 1. Cardiomegaly. 2. Patchy bilateral airspace disease. Repeat chest xry revealed: FINDINGS: Lines and Tubes: None. Left anterior chest wall cardiac pacing device. Lungs: Extensive multifocal bilateral pulmonary airspace disease in a predominantly perihilar and bibasilar distribution with consolidative features. Pleura: No effusion. No pneumothorax. Cardiomediastinal contours: Poorly evaluated secondary to extensive bilateral infiltrate. Bones: Unremarkable IMPRESSION: 1. Extensive multifocal bilateral pulmonary airspace disease in a predominantly perihilar and bibasilar distribution with consolidative features. Repeat chest xry revealed: IMPRESSION: 1. Status post interval intubation. Endotracheal tube tip projects approximately 2.4 cm above the level of the tyler. 2. Grossly stable appearing moderate patchy multifocal bilateral pulmonary airspace disease with consolidative features. 3. Cardiomegaly. Repeat chest xry revealed: IMPRESSION: No significant interval change. Repeat chest xry revealed: IMPRESSION: No significant interval change Repeat chest xry revealed: IMPRESSION: 1. Interval retraction of the endotracheal tube such that the tip now projects approximately 4.5 cm above the level of the tyler. 2. Cardiomegaly. Repeat chest xry revealed: IMPRESSION: 1. Mild interval advancement of the endotracheal tube such that the tip now projects approximately 3.3 cm above the level of the tyler. 2. No evidence of acute cardiopulmonary process. Repeat chest xry revealed: IMPRESSION: Lines and tubes in satisfactory position. No significant interval change. Repeat chest xry revealed: IMPRESSION: 1. Interval advancement of endotracheal tube such that the tip now projects approximately 3.7 cm above the level of the tyler. Remaining lines and tubes unchanged. 2. Cardiomegaly. Repeat chest xry revealed: IMPRESSION: Unchanged pulmonary vascular congestion. Repeat chest xry revealed: IMPRESSION: No significant interval change. Repeat chest xry revealed: IMPRESSION: 1. Interval retraction of endotracheal tube such that the tip now projects approximately 4.5 cm above the level of the tyler. Remaining lines and tubes unchanged. 2. Cardiomegaly. Repeat chest xry revealed: IMPRESSION: 1. Appropriate position of the support lines and tubes. 2. No acute pulmonary disease. 3. Stable cardiomegaly. Repeat chest xry revealed: IMPRESSION: 1. No significant change from 9 11/26/2024. Gall Bladder Ultrasound revealed: IMPRESSION: Gallstones are noted. Hepatic steatosis Trace ascites Trace bilateral pleural effusions. Hepatic cirrhosis. Liver Ultrasound revealed: Hepatic steatosis. Trace right pleural effusion. Trace ascites Gallstones Bladder ultrasound revealed: IMPRESSION: 1. Cutler catheter in the bladder in the bladder is decompressed. Repeat Bladder Ultrasound revealed: Urinary bladder is unremarkable with prevoid volume of 29 mL. Urinary bladder wall measures 1.5 mm. Cutler catheter is noted. KUB revealed: IMPRESSION: Nonobstructive bowel gas pattern. Nasogastric tube tip in the stomach. Large stool burden. Repeat KUB revealed: Right lower extremity PICC line with tip projecting over the expected region of the intrahepatic IVC. Nasogastric tube projecting towards the distal stomach. Nonspecific bowel gas pattern. Cardiomegaly and left basilar airspace opacities, incompletely characterized. Atherosclerotic calcification disease. Repeat KUB revealed: IMPRESSION: 1. Nonspecific nonobstructive bowel gas pattern. 2. Gastrostomy tube projects over the midportion of the left hemiabdomen. 3. Right femoral approach central venous catheter as described above. Repeat KUB revealed: IMPRESSION: Nonobstructive bowel gas pattern. Right central venous catheter tip in the IVC Cutler catheter overlying the bladder. Left upper ext arterial duplex: IMPRESSION: No hemodynamically significant stenosis based on peak systolic velocity criteria. Left lower ext arterial duplex: IMPRESSION: There is no evidence for peripheral vascular insufficiency in the left lower extremity. No significant focal stenosis is identified. Liver Ultrasound revealed: Hepatic steatosis. Hepatomegaly. Cholelithiasis. CT of the head revealed: IMPRESSION: No acute intracranial abnormality. Repeat CT of head revealed: IMPRESSION: No acute intracranial abnormality. Repeat CT of Head revealed: IMPRESSION: No acute intracranial abnormality. Repeat CT of head revealed: IMPRESSION: 1. No acute intracranial abnormality. 2. No findings to suggest territorial ischemia. Echocardiogram reported: lvef 15-20% dilated LV severe global dysfunction mild RV dysfunction biatrial enlargement mild moderate MAC, moderate mitral regurg mild to moderate aortic regug (images of echo reviewed and questioned presence of mitral ring and also some component (moderate of Mitral stenosis) EKG revealed sinus rhythm Telemetry revealed occasions of atrial fibrillation. There was occasional sustained ventricular tachycardia. EMS tele monitor revealed ventricular fibrillation for which the patient was shocked. Has remained sinus rhythm. Later with A-fib with MVR LHC revealed: Patent RICHMOND to LAD; Patent SVG to obtuse marginal; LVEF of 20% with increased EDP; Proximal disease in LAD/LCX RICHIE was performed: Consistent with severely reduced LVEF. Consistent with previously implanted Mitral ring, Up to moderate Mitral stenosis/Mitral Regurgitation and also Moderate Aortic insufficiency. Patient is a 54-year-old female who presented with witnessed syncope. She was found to have ventricular fibrillation for which was shocked. Later had repeated episode of sustained ventricular tachycardia. Patient has been kept in ICU. Does have baseline history of coronary artery disease for which has had bypass surgery. Left heart catheterization was performed which revealed patent RICH[place]D and patent SVG. ACS is not considered at this point. It is of note that the patient's echocardiogram reveals significantly use systolic function. Valvular heart disease is considered. Findings are in favor of previously implanted mitral ring. By reviewing the echo images, component of up to moderate mitral stenosis could not be ruled out. LHC was performed that ruled out any active specific ischemia as an etiology for presentation. Is off Amiodarone for abnormal LFT. Being followed by Nephrology / Pulmonary / Neurology / GI ID. Tele has remained sinus rhythm. Had episode of a-fib with RVR. Was loaded with Digoxin. Dig level was performed at wrong timing (only 5 hours after the last Dig given). Dig toxicity is not considered. Patient is back to normal sinus rhythm. Has good kidney function. Repeat Dig level is acceptable level. s/p ICD implantation by EP. Intubated, later extubated. s/p PEG. Later had respiratory failure and was taken back to ICU. Imaging question pneumonia (can it be aspiration?). Eventhough repeat BNP has not increased (decreased somehow), patient does have peripheral edema and component of acute on chronic Systolic heart failure could also contribute to respiratory failure. The site of ICD implantation was reviewed by EP (Dr Armstrong on 05/13/2024): healing well (personal communication). Had repeat respiratory failure, back in ICU and intubated. Abnormal LFT. Found to have gall stone and Liver cirrhosis. Extubated and transferred back to tele floor Syncope V-fib s/p shock Sustained V-tach Paroxysmal A-fib VHD, s/p Mitral ring Systolic heart failure Abnormal LFT, at a point resolved, later appeared again s/p ICD (Biotronik) implantation by EP (Dr Armstrong) s/p PRBC transfusion for significant anemia Hepatic Steatosis Gallstones Failed Swallowing s/p PEG Acute respiratory failure Acute on chronic systolic heart failure Gallstone Liver cirrhosis s/p repeated intubation and extubations Cardiac suggestion for management: Manage in Tele IV diuresis Follow up electrolytes and kidney function test and correct abnormalities Full anticoagulation (a-fib with high CHADS-Vasc score). s/p ICD implantation. On Eliquis On Mexiletine Cardiac arenas, stable s/p ICD (Biotronik) implantation by EP Eliquis: 2.5 mg BID s/p PEG Passed swallowing evaluation Cardiac arenas (hemodynamically): stable Management of repeat respiratory failure, pneumonia as per primary team/pulmonary Provide previous medical records from reaching out to previous hospitals in [facility]... Further evaluation and management depends on the above and clinical course. A total of 55 minutes was spent reviewing the patient record, examining the patient, making a diagnostic and therapeutic plan, discussing this plan with medical personnel, following up on diagnostic studies and following the patient for clinical stability excluding any and all procedures. At least 50% of this time was spent in direct, [id number] contact. Thank you for allowing me to participate in this patient's care. Further recommendations will depend on patient's clinical course. Please do not hesitate to contact me if you have any questions or concerns. This medical document was created using electronic medical record system with viseto dictation system. Although this document has been carefully reviewed, there may still be some phonetic and typographical errors. These areas are purely typographical due to the imperfection of the software programs, and do not reflect any compromise in the patient's medical care. Dietary Evaluation Review Comments: 1) TF Jevity 1.2Cal @ 55 ml/hr. x 24hr along with Pro-stat 1 pk daily. Start @ 20ml/hr, increase 10ml/hr Q4H until goal is reached. TF @ goal volume provides 1684 kcal (100% energy needs), 88 gm protein (100% protein needs), 1065 ml free water. 2) Water flush 100ml Q4H if allowed, adjust PRN 3) Advance to cardiac diet as medically feasible 4) Monitor NPO status, lab values, wt trend, I/O Expected Outcomes/Goals: To meet >75% estimated needs within 7 days Lab values to improve Fu 2-3 days Plan discussed with: Patient, Other (nurse) CORDELL VERA MD Dec 04, 2024 07:23
--- NOTE | 2024-12-04 12:41 | DVHPN2 ---
Progress Note - Dictate Date Seen: Dec 04, 2024 Has the PT tested + for MRSA If YES, has PT been informed?: No Medical Necessity Reason Pt with a Central, PICC or Fol: No The following are medically ne: PICC Line, Cutler Catheter Reason for cutler catheter: Strict I&O vital signs Vital Sign Date Time Temp Pulse Resp B/P (MAP) Pulse Ox O2 Delivery O2 Flow Rate FiO2 12/04/24 09:00 97.7 80 20 107/71 (83) 96 97.7 12/04/24 08:00 Room Air* 0 21 Total Intake and Output 12/03/24 12/03/24 12/04/24 15:00 23:00 07:00 Intake Total 550 ml Output Total 600 ml Balance -50 ml medications Current Medications Medications Dose Ordered Sig/Liliam Route Start Time Stop Time Status Last Admin Dose Admin Amino Acids 0 ml @ 0 mls/hr PER PHARMACY IV 10/15/24 18:45 Cancel Dextrose 50 ml UD IV 10/16/24 09:30 Cancel Vancomycin HCl 0 ml @ 0 mls/hr UD IV 10/19/24 14:00 Cancel Amino Acids 0 ml @ 0 mls/hr PER PHARMACY IV 11/04/24 22:00 Cancel Pantoprazole Sodium 40 mg BID IV 11/09/24 22:00 12/04/24 09:38 40 MG Mexiletine HCl 150 mg TID GT 11/10/24 22:00 12/04/24 05:38 150 MG Fat Emulsion Intravenous 150 ml/Sodium Acetate 20 meq/Potassium Acetate 30 meq/ Potassium Phosphate 19.8 meq/Calcium Gluconate 2.3 meq/ Magnesium Sulfate 4 meq/ Multivitamins 10 ml/Chromium/ Copper/Manganese/ Zinc 1 ml/Amino Acids/Dextrose/ Purified Water 1,596.4462 ml @ 66 mls/hr [id number] IV 11/11/24 22:00 11/12/24 21:59 Cancel Furosemide 40 mg BIDD IV 11/14/24 18:00 12/04/24 05:38 40 MG Acetaminophen 650 mg Q4HR PRN GT 11/17/24 08:30 12/01/24 22:00 650 MG Potassium Bicarbonate 50 meq BID PEG 11/18/24 22:00 12/04/24 09:39 50 MEQ Enteral Nutritional Formula 1,000 ml 55ML/HR GT 11/19/24 15:00 12/03/24 22:30 1,000 ML Lorazepam 1 mg ONCE PRN IV 11/20/24 10:30 Apixaban 2.5 mg BID PEG 11/26/24 22:00 12/04/24 09:38 2.5 MG Amino Acid Protein 30 ml DAILY GT 11/30/24 10:00 12/04/24 09:48 30 ML Albuterol 2.5 mg Q4HPRN PRN NEB 12/01/24 11:45 Cancel Ipratropium [place] 0.5 mg Q4HPRN PRN NEB 12/01/24 11:45 Cancel objective HEENT: EOMI, PERRLA, normal external inspect of ears, no icterus, no nasal drainage Neck: no carotid bruit, no jugular venous distention (JVD), no lymphadenopathy Chest: normal thorax Respiratory: Intubated, clear to auscultation, normal air movement Cardiovascular: regular rate and rhythm, no diastolic murmur, no jugular venous distention (JVD), no rub, no systolic murmur Abdominal: soft, no hepatomegaly, no mass, no splenomegaly, no tenderness Genitourinary: grossly normal external Musculoskeletal: no joint tenderness, no swelling Extremities: normal pulses, no calf tenderness, no clubbing, no cyanosis, no edema Skin: no bruising, no jaundice, no rash Neurological: No focal deficit laboratory and microbiology Laboratory Tests 12/01/24 05:16 Test 12/01/24 05:16 Range/Units Serum Glucose 118 H 74-106 mg/dL Problem List Cardiac Arrest with Ventricular Fibrillation Assessment: Patient experienced cardiac arrest with ventricular fibrillation on 10/07/24, witnessed by family members who initiated CPR. EMS found the patient in ventricular fibrillation and administered shock therapy. Rhythm strip analysis confirmed ventricular fibrillation. Patient required intubation and sedation upon ED arrival. Currently admitted to ICU for close observation. Cardiology has been consulted and plans for AICD placement, likely on Tuesday. Infectious disease clearance has been obtained for the AICD procedure, addressing initial concerns of leukocytosis which is now improving. Status post-cardiac arrest. Plan: - Continue ICU monitoring - Proceed with AICD placement as planned (likely Tuesday), cleared by infectious disease. - Maintain intubation and sedation until AICD placement - Continue Heparin drip for paroxysmal atrial fibrillation - Continue Mexitil - DC amiodarone due to transaminitis - added esmolol drip per Cardiology for AFib and added push doses of digoxin Coronary Artery Disease Assessment: Patient with history of 2-vessel CABG (Coronary Artery Bypass Grafting). Surgical intervention previously performed to address significant coronary artery stenosis. Plan: - Continue medical management - Follow up with cardiology for ongoing coronary artery disease management Acute and Chronic Systolic Heart Failure Assessment: Patient has acute and chronic systolic heart failure with severely reduced left ventricular function. Ejection fraction is estimated at 15-20%. RICHIE findings are consistent with severely reduced left ventricular ejection fraction, previously implanted mitral ring, up to moderate mitral stenosis and regurgitation, and moderate aortic insufficiency. Plan: - Continue cardiology consultation - continue IV diuretics (IV Lasix) - Monitor renal function Acute Hypoxic Respiratory Failure Assessment: Patient is currently intubated due to acute hypoxic respiratory failure. Dr. Downey from pulmonology is managing this aspect of care. Plan: - Maintain current intubation as per pulmonology recommendation - Proceed with CPAP trials when deemed appropriate by pulmonology Transaminitis Assessment: Patient has elevated liver function tests, likely secondary to amiodarone use. Cardiology has discontinued amiodarone in response. Plan: - Monitor liver function tests - Amiodarone discontinued as per cardiology Enterobacter PNA Assessment: Sputum culture positive for Enterobacter. Plan: - Continue treatment with Eratapenem to complete 10 days regimen -Infectious disease consult Hemodynamic Support Assessment: Patient requires vasopressor support for hemodynamic stability. Plan: - Continue vasopressin - Continue neosynephrine Paroxysmal a fib -DC amiodarone -continue with heparin gtt Shock liver GI consult, trend liver enzymes, hepatitis panel was negative. Ultrasound of the liver had no acute findings. Assessment/Plan Subjective: Patient is awake and alert. Objective: No change to patient's status. Waiting on placement to halfway facility for rehab. Patient was admitted status post cardiac arrest. She is status post AICD placement. Patient had a prolonged intubation time which caused aphasia. She failed multiple swallow eval's. Patient had a PEG tube placed. She is status post sepsis with septic shock. Patient had VRE in the urine and Enterobacter in the sputum. Patient currently off antibiotics. Patient was seen by physical therapy. She is severely deconditioned. Patient was reseen by speech therapy yesterday and she is now on a pured diet. Plan: Continue pured diet as tolerated. G-tube feedings for now. Continue PT. DC planning to halfway facility once bed is available. Dietary Evaluation Review Comments: 1) TF Jevity 1.2Cal @ 55 ml/hr. x 24hr along with Pro-stat 1 pk daily. Start @ 20ml/hr, increase 10ml/hr Q4H until goal is reached. TF @ goal volume provides 1684 kcal (100% energy needs), 88 gm protein (100% protein needs), 1065 ml free water. 2) Water flush 100ml Q4H if allowed, adjust PRN 3) Advance to cardiac diet as medically feasible 4) Monitor NPO status, lab values, wt trend, I/O Expected Outcomes/Goals: To meet >75% estimated needs within 7 days Lab values to improve Fu 2-3 days Plan discussed with: Patient, Other BRODIE GARVIN [employer] Dec 04, 2024 12:41
[2024-12-04 13:36] LABS: Hematocrit 31.9 % (36.0-46.0); Hemoglobin 10.2 g/dL (12.2-16.2); Mean Corpuscular Hemoglobin 30.4 pg (28.0-32.0); Mean Corpuscular Volume 95.3 fL (80.0-100.0); Nucleated Red Blood Cells % 0.4 %
[2024-12-04 13:57] LABS: Anion Gap 11 (5-15); BUN/Creatinine Ratio 24.1 (10.0-20.0); Bilirubin, Total 1.0 mg/dL (0.2-1.0); Blood Urea Nitrogen 13 mg/dL (9-23); Carbon Dioxide 29 mmol/L (20-31); Magnesium 1.9 mg/dL (1.6-2.6); Potassium 4.0 mmol/L (3.5-5.1); Sodium 137 mmol/L (136-145); Total Protein 6.0 g/dL (5.7-8.2)
[2024-12-04 13:59] LABS: Alanine Aminotransferase 66 U/L (7-40); Albumin 3.0 g/dL (3.2-4.8); Alkaline Phosphatase 146 U/L (46-116); Calcium 8.5 mg/dL (8.7-10.4); Chloride 97 mmol/L (98-107); Glucose 129 mg/dL (74-106)
--- NOTE | 2024-12-04 15:27 | DVHPN2 ---
Progress Note - Dictate Date Seen: Dec 04, 2024 Has the PT tested + for MRSA If YES, has PT been informed?: No Medical Necessity Reason Pt with a Central, PICC or Fol: No The following are medically ne: PICC Line, Cutler Catheter Reason for cutler catheter: Strict I&O vital signs Vital Sign Date Time Temp Pulse Resp B/P (MAP) Pulse Ox O2 Delivery O2 Flow Rate FiO2 12/04/24 13:00 97.9 74 20 102/61 (75) 97 97.9 12/04/24 08:00 Room Air* 0 21 Total Intake and Output 12/03/24 12/03/24 12/04/24 15:00 23:00 07:00 Intake Total 550 ml Output Total 600 ml Balance -50 ml medications Current Medications Medications Dose Ordered Sig/Liliam Route Start Time Stop Time Status Last Admin Dose Admin Amino Acids 0 ml @ 0 mls/hr PER PHARMACY IV 10/15/24 18:45 Cancel Dextrose 50 ml UD IV 10/16/24 09:30 Cancel Vancomycin HCl 0 ml @ 0 mls/hr UD IV 10/19/24 14:00 Cancel Amino Acids 0 ml @ 0 mls/hr PER PHARMACY IV 11/04/24 22:00 Cancel Mexiletine HCl 150 mg TID GT 11/10/24 22:00 12/04/24 13:59 150 MG Fat Emulsion Intravenous 150 ml/Sodium Acetate 20 meq/Potassium Acetate 30 meq/ Potassium Phosphate 19.8 meq/Calcium Gluconate 2.3 meq/ Magnesium Sulfate 4 meq/ Multivitamins 10 ml/Chromium/ Copper/Manganese/ Zinc 1 ml/Amino Acids/Dextrose/ Purified Water 1,596.4462 ml @ 66 mls/hr [id number] IV 11/11/24 22:00 11/12/24 21:59 Cancel Acetaminophen 650 mg Q4HR PRN GT 11/17/24 08:30 12/01/24 22:00 650 MG Potassium Bicarbonate 50 meq BID PEG 11/18/24 22:00 12/04/24 09:39 50 MEQ Enteral Nutritional Formula 1,000 ml 55ML/HR GT 11/19/24 15:00 12/03/24 22:30 1,000 ML Lorazepam 1 mg ONCE PRN IV 11/20/24 10:30 Apixaban 2.5 mg BID PEG 11/26/24 22:00 10/7/25 09:38 2.5 MG Amino Acid Protein 30 ml DAILY GT 11/30/24 10:00 12/04/24 09:48 30 ML Albuterol 2.5 mg Q4HPRN PRN NEB 12/01/24 11:45 Cancel Ipratropium [place] 0.5 mg Q4HPRN PRN NEB 12/01/24 11:45 Cancel Furosemide 40 mg BIDD PO 12/04/24 18:00 Pantoprazole Sodium 40 mg BID@0600,1700 PO 12/04/24 17:00 laboratory and microbiology Laboratory Tests 12/04/24 13:23 Test 12/04/24 13:23 Range/Units Serum Glucose 129 H 74-106 mg/dL Assessment/Plan impression s/p cardiac arrest VT CPR <5 min elevated troponin acute resp failure atelectases s/p PM pt seen and examined events s/p extubation low oxygen requirements on 1 liter nasal cannula appears deconditioned labs and imaging studies reviewed management plan supplemental oxygen awaiting placement Dietary Evaluation Review Comments: 1) TF Jevity 1.2Cal @ 55 ml/hr. x 24hr along with Pro-stat 1 pk daily. Start @ 20ml/hr, increase 10ml/hr Q4H until goal is reached. TF @ goal volume provides 1684 kcal (100% energy needs), 88 gm protein (100% protein needs), 1065 ml free water. 2) Water flush 100ml Q4H if allowed, adjust PRN 3) Advance to cardiac diet as medically feasible 4) Monitor NPO status, lab values, wt trend, I/O Expected Outcomes/Goals: To meet >75% estimated needs within 7 days Lab values to improve Fu 2-3 days Plan discussed with: Patient BELLO ROTHMAN MD Dec 04, 2024 15:27
[2024-12-04] MEDS: PANTOPRAZOLE 40 MG TAB PO SCH (17:50)
[2024-12-04] MEDS: FUROSEMIDE 40 MG TAB PO SCH (17:50)
[2024-12-05] VITALS (9 sets, daily range): BP systolic 100–114; BP diastolic 60–75; PULSE 75–91; RESP 0–17; TEMP 36.7; O2SAT 0–98
--- NOTE | 2024-12-05 07:30 | DVHPN2 ---
Progress Note - Dictate Date Seen: Dec 05, 2024 Has the PT tested + for MRSA If YES, has PT been informed?: No Medical Necessity Reason Pt with a Central, PICC or Fol: No The following are medically ne: PICC Line, Cutler Catheter Reason for cutler catheter: Strict I&O vital signs Vital Sign Date Time Temp Pulse Resp B/P (MAP) Pulse Ox O2 Delivery O2 Flow Rate FiO2 12/05/24 05:50 110/74 12/05/24 04:56 98.0 75 17 95 98.0 12/04/24 20:00 Room Air* 0 21 Total Intake and Output 12/04/24 12/04/24 12/05/24 15:00 23:00 07:00 Intake Total 520 ml 650 ml Output Total 1702 ml 1150 ml Balance -1182 ml -500 ml medications Current Medications Medications Dose Ordered Sig/Liliam Route Start Time Stop Time Status Last Admin Dose Admin Amino Acids 0 ml @ 0 mls/hr PER PHARMACY IV 10/15/24 18:45 Cancel Dextrose 50 ml UD IV 10/16/24 09:30 Cancel Vancomycin HCl 0 ml @ 0 mls/hr UD IV 10/19/24 14:00 Cancel Amino Acids 0 ml @ 0 mls/hr PER PHARMACY IV 11/04/24 22:00 Cancel Mexiletine HCl 150 mg TID GT 11/10/24 22:00 12/05/24 05:49 150 MG Fat Emulsion Intravenous 150 ml/Sodium Acetate 20 meq/Potassium Acetate 30 meq/ Potassium Phosphate 19.8 meq/Calcium Gluconate 2.3 meq/ Magnesium Sulfate 4 meq/ Multivitamins 10 ml/Chromium/ Copper/Manganese/ Zinc 1 ml/Amino Acids/Dextrose/ Purified Water 1,596.4462 ml @ 66 mls/hr [id number] IV 11/11/24 22:00 11/12/24 21:59 Cancel Acetaminophen 650 mg Q4HR PRN GT 11/17/24 08:30 12/01/24 22:00 650 MG Potassium Bicarbonate 50 meq BID PEG 11/18/24 22:00 12/04/24 23:28 50 MEQ Enteral Nutritional Formula 1,000 ml 55ML/HR GT 11/19/24 15:00 12/03/24 22:30 1,000 ML Lorazepam 1 mg ONCE PRN IV 11/20/24 10:30 Apixaban 2.5 mg BID PEG 11/26/24 22:00 12/04/24 23:28 2.5 MG Amino Acid Protein 30 ml DAILY GT 11/30/24 10:00 12/04/24 09:48 30 ML Albuterol 2.5 mg Q4HPRN PRN NEB 12/01/24 11:45 Cancel Ipratropium [place] 0.5 mg Q4HPRN PRN NEB 12/01/24 11:45 Cancel Furosemide 40 mg BIDD PO 12/04/24 18:00 12/05/24 05:50 40 MG Pantoprazole Sodium 40 mg BID@0600,1700 PO 12/04/24 17:00 12/05/24 05:50 40 MG laboratory and microbiology Laboratory Tests 12/04/24 13:23 Test 12/04/24 13:23 Range/Units Serum Glucose 129 H 74-106 mg/dL Assessment/Plan Alert, NAD (on original arrival to hospital): Patient is a 54-year-old female who was brought to the hospital for witnessed syncope. She is intubated and is being managed in ICU. Information was obtained by reviewing the chart and communicating with patient's son (over the phone). Family recognized witnessed syncope and started CPR and called EMS. Reportedly, EMS found the patient in ventricular fibrillation and shocked the patient and brought the patient to the hospital. Patient was intubated in emergency room and transferred to ICU. Patient was on amiodarone drip. Later the patient had ventricular tachycardia (Systane). High sensitive troponin had been minimally/flatly elevated. Presentation was not in favor of acute coronary syndrome. Cardiology is involved for cardiac aspects of care. NAD No JVD. Mucosa pale. No carotid bruit. Scattered rhonchi in the lungs is heard. Cardiac: Regular, no thrill. Systolic murmur 2/6 in apex is heard. Abdomen is soft. 3+ edema in extremities. Past medical history as per son: Congenital heart disease, status post bypass Troponin (high sensitive): 141 - 138 - 117 BNP: 457.16 - 1073.91 - 928.14 Digoxin level: 2.83 - 1.25 - 0.98 UDS: non-revealing Chest x-ray revealed: Lines and Tubes: Endotracheal tube tip projects approximately 1.4 cm above the level of the tyler. Enteric catheter courses below the lateral of the diaphragm and terminates beyond the inferior margin of the image. Right internal jugular central venous catheter terminates within the distal superior vena cava. Lungs: Moderate diffuse increased prominence of the pulmonary vasculature without evidence of focal consolidation. Pleura: No effusion. No pneumothorax. Cardiomediastinal contours: Cardiomegaly. Bones: Unremarkable IMPRESSION: 1. Cardiomegaly and diffuse increased prominence of the pulmonary vasculature. 2. Lines and tubes as above. Repeat chest x-ray revealed: IMPRESSION: 1. Endotracheal tube tip 1.6 cm above the tyler; consider 2 cm retraction 2. Mild pulmonary vascular congestion. Moderate cardiomegaly. Repeat chest xry revealed: IMPRESSION: Endotracheal tube tip 1.6 cm above the tyler; consider 2 cm retraction Mild pulmonary vascular congestion. Moderate cardiomegaly. Repeat chest xry revealed: IMPRESSION: 1. Stable cardiomegaly, small left pleural effusion and mild diffuse increased prominence of the pulmonary vasculature. 2. Repositioned endotracheal tube as above. Remaining lines and tubes unchanged. Repeat chest xry revealed: IMPRESSION: 1. Cardiomegaly, stable diffuse increased prominence of the pulmonary vasculature and small bilateral pleural effusions. 2. Slight interval advancement of endotracheal tube as above. Remaining lines and tubes unchanged. Repeat chest xry revealed: IMPRESSION: 1. Slight interval decrease in diffuse increased prominence of the pulmonary vasculature. 2. Stable cardiomegaly and small left pleural effusion. 3. Lines and tubes unchanged. Repeat chest xry revealed: IMPRESSION: 1. Cardiomegaly and small left pleural effusion. 2. Lines and tubes unchanged. Repeat chest xry revealed: IMPRESSION: Stable lines and tubes. Similar lung aeration. Repeat chest xry revealed: IMPRESSION: Cardiomegaly and small left pleural effusion. Lines and tubes unchanged. Repeat chest xry revealed: IMPRESSION: Placement of a cardiac pacer, no pneumothorax is seen. Stable lines and tubes. Repeat chest xry revealed: IMPRESSION: 1. Worsening mixed opacities in the right lower lung. No other significant change from the previous study. Stable support devices. Repeat chest xry revealed: Heart is prominent in size with postsurgical changes, median sternotomy wires, and a single lead left cardiac defibrillator. Support lines and tubes appear unchanged in satisfactory in position. No sizable effusion or pneumothorax. Mild pulmonary vascular congestion. No significant interval change. Repeat chest xry revealed: IMPRESSION: 1. No significant change from the previous study. Stable support devices. Similar findings of heart failure including left pleural effusion. Repeat chest xry revealed: IMPRESSION: 1. No significant change from the previous study. Stable support devices. Similar findings of heart failure including trace left pleural effusion. Repeat chest xry revealed: Lines and Tubes: Unchanged. Left anterior chest wall cardiac pacing device. Lungs: Clear Pleura: No effusion. No pneumothorax. Cardiomediastinal contours: Cardiomegaly. Bones: Unremarkable IMPRESSION: 1. Cardiomegaly. 2. Lines and tubes unchanged. Repeat chest xry revealed: IMPRESSION: Lines and tubes in satisfactory position. No significant interval change. Repeat chest xry revealed: Lines and Tubes: ET tube and NG tube removed. Lungs: Congestion Pleura: No effusion. No pneumothorax. Cardiomediastinal contours: Cardiomegaly Bones: Unremarkable IMPRESSION: 1. Cardiomegaly with CHF. Repeat chest xry revealed: IMPRESSION: 1. Cardiomegaly. 2. Patchy bilateral airspace disease. Repeat chest xry revealed: FINDINGS: Lines and Tubes: None. Left anterior chest wall cardiac pacing device. Lungs: Extensive multifocal bilateral pulmonary airspace disease in a predominantly perihilar and bibasilar distribution with consolidative features. Pleura: No effusion. No pneumothorax. Cardiomediastinal contours: Poorly evaluated secondary to extensive bilateral infiltrate. Bones: Unremarkable IMPRESSION: 1. Extensive multifocal bilateral pulmonary airspace disease in a predominantly perihilar and bibasilar distribution with consolidative features. Repeat chest xry revealed: IMPRESSION: 1. Status post interval intubation. Endotracheal tube tip projects approximately 2.4 cm above the level of the tyler. 2. Grossly stable appearing moderate patchy multifocal bilateral pulmonary airspace disease with consolidative features. 3. Cardiomegaly. Repeat chest xry revealed: IMPRESSION: No significant interval change. Repeat chest xry revealed: IMPRESSION: No significant interval change Repeat chest xry revealed: IMPRESSION: 1. Interval retraction of the endotracheal tube such that the tip now projects approximately 4.5 cm above the level of the tyler. 2. Cardiomegaly. Repeat chest xry revealed: IMPRESSION: 1. Mild interval advancement of the endotracheal tube such that the tip now projects approximately 3.3 cm above the level of the tyler. 2. No evidence of acute cardiopulmonary process. Repeat chest xry revealed: IMPRESSION: Lines and tubes in satisfactory position. No significant interval change. Repeat chest xry revealed: IMPRESSION: 1. Interval advancement of endotracheal tube such that the tip now projects approximately 3.7 cm above the level of the tyler. Remaining lines and tubes unchanged. 2. Cardiomegaly. Repeat chest xry revealed: IMPRESSION: Unchanged pulmonary vascular congestion. Repeat chest xry revealed: IMPRESSION: No significant interval change. Repeat chest xry revealed: IMPRESSION: 1. Interval retraction of endotracheal tube such that the tip now projects approximately 4.5 cm above the level of the tyler. Remaining lines and tubes unchanged. 2. Cardiomegaly. Repeat chest xry revealed: IMPRESSION: 1. Appropriate position of the support lines and tubes. 2. No acute pulmonary disease. 3. Stable cardiomegaly. Repeat chest xry revealed: IMPRESSION: 1. No significant change from 9 11/26/2024. Gall Bladder Ultrasound revealed: IMPRESSION: Gallstones are noted. Hepatic steatosis Trace ascites Trace bilateral pleural effusions. Hepatic cirrhosis. Liver Ultrasound revealed: Hepatic steatosis. Trace right pleural effusion. Trace ascites Gallstones Bladder ultrasound revealed: IMPRESSION: 1. Cutler catheter in the bladder in the bladder is decompressed. Repeat Bladder Ultrasound revealed: Urinary bladder is unremarkable with prevoid volume of 29 mL. Urinary bladder wall measures 1.5 mm. Cutler catheter is noted. KUB revealed: IMPRESSION: Nonobstructive bowel gas pattern. Nasogastric tube tip in the stomach. Large stool burden. Repeat KUB revealed: Right lower extremity PICC line with tip projecting over the expected region of the intrahepatic IVC. Nasogastric tube projecting towards the distal stomach. Nonspecific bowel gas pattern. Cardiomegaly and left basilar airspace opacities, incompletely characterized. Atherosclerotic calcification disease. Repeat KUB revealed: IMPRESSION: 1. Nonspecific nonobstructive bowel gas pattern. 2. Gastrostomy tube projects over the midportion of the left hemiabdomen. 3. Right femoral approach central venous catheter as described above. Repeat KUB revealed: IMPRESSION: Nonobstructive bowel gas pattern. Right central venous catheter tip in the IVC Cutler catheter overlying the bladder. Left upper ext arterial duplex: IMPRESSION: No hemodynamically significant stenosis based on peak systolic velocity criteria. Left lower ext arterial duplex: IMPRESSION: There is no evidence for peripheral vascular insufficiency in the left lower extremity. No significant focal stenosis is identified. Liver Ultrasound revealed: Hepatic steatosis. Hepatomegaly. Cholelithiasis. CT of the head revealed: IMPRESSION: No acute intracranial abnormality. Repeat CT of head revealed: IMPRESSION: No acute intracranial abnormality. Repeat CT of Head revealed: IMPRESSION: No acute intracranial abnormality. Repeat CT of head revealed: IMPRESSION: 1. No acute intracranial abnormality. 2. No findings to suggest territorial ischemia. Echocardiogram reported: lvef 15-20% dilated LV severe global dysfunction mild RV dysfunction biatrial enlargement mild moderate MAC, moderate mitral regurg mild to moderate aortic regug (images of echo reviewed and questioned presence of mitral ring and also some component (moderate of Mitral stenosis) EKG revealed sinus rhythm Telemetry revealed occasions of atrial fibrillation. There was occasional sustained ventricular tachycardia. EMS tele monitor revealed ventricular fibrillation for which the patient was shocked. Has remained sinus rhythm. Later with A-fib with MVR LHC revealed: Patent [place] to LAD; Patent SVG to obtuse marginal; LVEF of 20% with increased EDP; Proximal disease in LAD/LCX RICHIE was performed: Consistent with severely reduced LVEF. Consistent with previously implanted Mitral ring, Up to moderate Mitral stenosis/Mitral Regurgitation and also Moderate Aortic insufficiency. Patient is a 54-year-old female who presented with witnessed syncope. She was found to have ventricular fibrillation for which was shocked. Later had repeated episode of sustained ventricular tachycardia. Patient has been kept in ICU. Does have baseline history of coronary artery disease for which has had bypass surgery. Left heart catheterization was performed which revealed patent [place] and patent SVG. ACS is not considered at this point. It is of note that the patient's echocardiogram reveals significantly use systolic function. Valvular heart disease is considered. Findings are in favor of previously implanted mitral ring. By reviewing the echo images, component of up to moderate mitral stenosis could not be ruled out. LHC was performed that ruled out any active specific ischemia as an etiology for presentation. Is off Amiodarone for abnormal LFT. Being followed by Nephrology / Pulmonary / Neurology / GI ID. Tele has remained sinus rhythm. Had episode of a-fib with RVR. Was loaded with Digoxin. Dig level was performed at wrong timing (only 5 hours after the last Dig given). Dig toxicity is not considered. Patient is back to normal sinus rhythm. Has good kidney function. Repeat Dig level is acceptable level. s/p ICD implantation by EP. Intubated, later extubated. s/p PEG. Later had respiratory failure and was taken back to ICU. Imaging question pneumonia (can it be aspiration?). Eventhough repeat BNP has not increased (decreased somehow), patient does have peripheral edema and component of acute on chronic Systolic heart failure could also contribute to respiratory failure. The site of ICD implantation was reviewed by EP (Dr Armstrong on 05/13/2024): healing well (personal communication). Had repeat respiratory failure, back in ICU and intubated. Abnormal LFT. Found to have gall stone and Liver cirrhosis. Extubated and transferred back to tele floor Syncope V-fib s/p shock Sustained V-tach Paroxysmal A-fib VHD, s/p Mitral ring Systolic heart failure Abnormal LFT, at a point resolved, later appeared again s/p ICD (Biotronik) implantation by EP (Dr Armstrong) s/p PRBC transfusion for significant anemia Hepatic Steatosis Gallstones Failed Swallowing s/p PEG Acute respiratory failure Acute on chronic systolic heart failure Gallstone Liver cirrhosis s/p repeated intubation and extubations Cardiac suggestion for management: Manage in Tele IV diuresis Follow up electrolytes and kidney function test and correct abnormalities Full anticoagulation (a-fib with high CHADS-Vasc score). s/p ICD implantation. On Eliquis On Mexiletine Cardiac arenas, stable s/p ICD (Biotronik) implantation by EP Eliquis: 2.5 mg BID s/p PEG Passed swallowing evaluation Cardiac arenas (hemodynamically): stable Management of repeat respiratory failure, pneumonia as per primary team/pulmonary Provide previous medical records from reaching out to previous hospitals in [facility]... Further evaluation and management depends on the above and clinical course. A total of 55 minutes was spent reviewing the patient record, examining the patient, making a diagnostic and therapeutic plan, discussing this plan with medical personnel, following up on diagnostic studies and following the patient for clinical stability excluding any and all procedures. At least 50% of this time was spent in direct, [id number] contact. Thank you for allowing me to participate in this patient's care. Further recommendations will depend on patient's clinical course. Please do not hesitate to contact me if you have any questions or concerns. This medical document was created using electronic medical record system with [employer] dictation system. Although this document has been carefully reviewed, there may still be some phonetic and typographical errors. These areas are purely typographical due to the imperfection of the software programs, and do not reflect any compromise in the patient's medical care. Dietary Evaluation Review Comments: 1) TF Jevity 1.2Cal @ 55 ml/hr. x 24hr along with Pro-stat 1 pk daily. Start @ 20ml/hr, increase 10ml/hr Q4H until goal is reached. TF @ goal volume provides 1684 kcal (100% energy needs), 88 gm protein (100% protein needs), 1065 ml free water. 2) Water flush 100ml Q4H if allowed, adjust PRN 3) Advance to cardiac diet as medically feasible 4) Monitor NPO status, lab values, wt trend, I/O Expected Outcomes/Goals: To meet >75% estimated needs within 7 days Lab values to improve Fu 2-3 days Plan discussed with: Patient, Other (nurse) CORDELL VERA MD Dec 05, 2024 07:30
--- NOTE | 2024-12-05 19:02 | DVHPN2 ---
Progress Note - Dictate Date Seen: Dec 05, 2024 Has the PT tested + for MRSA If YES, has PT been informed?: No Medical Necessity Reason Pt with a Central, PICC or Fol: No The following are medically ne: PICC Line, Cutler Catheter Reason for cutler catheter: Strict I&O vital signs Vital Sign Date Time Temp Pulse Resp B/P (MAP) Pulse Ox O2 Delivery O2 Flow Rate FiO2 12/05/24 17:00 98.1 80 15 112/75 (87) 95 98.1 12/05/24 08:00 Room Air* 0 21 Total Intake and Output 12/04/24 12/04/24 12/05/24 15:00 23:00 07:00 Intake Total 520 ml 650 ml Output Total 1702 ml 1150 ml Balance -1182 ml -500 ml medications Current Medications Medications Dose Ordered Sig/Liliam Route Start Time Stop Time Status Last Admin Dose Admin Amino Acids 0 ml @ 0 mls/hr PER PHARMACY IV 10/15/24 18:45 Cancel Dextrose 50 ml UD IV 10/16/24 09:30 Cancel Vancomycin HCl 0 ml @ 0 mls/hr UD IV 10/19/24 14:00 Cancel Amino Acids 0 ml @ 0 mls/hr PER PHARMACY IV 11/04/24 22:00 Cancel Mexiletine HCl 150 mg TID GT 11/10/24 22:00 12/05/24 12:53 150 MG Fat Emulsion Intravenous 150 ml/Sodium Acetate 20 meq/Potassium Acetate 30 meq/ Potassium Phosphate 19.8 meq/Calcium Gluconate 2.3 meq/ Magnesium Sulfate 4 meq/ Multivitamins 10 ml/Chromium/ Copper/Manganese/ Zinc 1 ml/Amino Acids/Dextrose/ Purified Water 1,596.4462 ml @ 66 mls/hr [id number] IV 11/11/24 22:00 11/12/24 21:59 Cancel Acetaminophen 650 mg Q4HR PRN GT 11/17/24 08:30 12/01/24 22:00 650 MG Potassium Bicarbonate 50 meq BID PEG 11/18/24 22:00 12/05/24 11:09 50 MEQ Enteral Nutritional Formula 1,000 ml 55ML/HR GT 11/19/24 15:00 12/05/24 07:50 1,000 ML Lorazepam 1 mg ONCE PRN IV 11/20/24 10:30 Apixaban 2.5 mg BID PEG 11/26/24 22:00 12/05/24 11:09 2.5 MG Amino Acid Protein 30 ml DAILY GT 11/30/24 10:00 12/05/24 10:00 30 ML Albuterol 2.5 mg Q4HPRN PRN NEB 12/01/24 11:45 Cancel Ipratropium [place] 0.5 mg Q4HPRN PRN NEB 12/01/24 11:45 Cancel Furosemide 40 mg BIDD PO 12/04/24 18:00 12/05/24 16:57 40 MG Pantoprazole Sodium 40 mg BID@0600,1700 PO 12/04/24 17:00 12/05/24 16:57 40 MG laboratory and microbiology Laboratory Tests 12/04/24 13:23 Test 12/04/24 13:23 Range/Units Serum Glucose 129 H 74-106 mg/dL Assessment/Plan impression s/p cardiac arrest VT CPR <5 min elevated troponin acute resp failure atelectases s/p PM pt seen and examined events s/p extubation low oxygen requirements on 1 liter nasal cannula no acute events labs and imaging studies reviewed management plan supplemental oxygen awaiting placement Dietary Evaluation Review Comments: 1) TF Jevity 1.2Cal @ 55 ml/hr. x 24hr along with Pro-stat 1 pk daily. Start @ 20ml/hr, increase 10ml/hr Q4H until goal is reached. TF @ goal volume provides 1684 kcal (100% energy needs), 88 gm protein (100% protein needs), 1065 ml free water. 2) Water flush 100ml Q4H if allowed, adjust PRN 3) Advance to cardiac diet as medically feasible 4) Monitor NPO status, lab values, wt trend, I/O Expected Outcomes/Goals: To meet >75% estimated needs within 7 days Lab values to improve Fu 2-3 days Plan discussed with: Patient BELLO ROTHMAN MD Dec 05, 2024 19:02
--- NOTE | 2024-12-05 19:50 | DVHPN2 ---
Progress Note - Dictate Date Seen: Dec 05, 2024 Has the PT tested + for MRSA If YES, has PT been informed?: No Medical Necessity Reason Pt with a Central, PICC or Fol: No The following are medically ne: PICC Line, Cutler Catheter Reason for cutler catheter: Strict I&O vital signs Vital Sign Date Time Temp Pulse Resp B/P (MAP) Pulse Ox O2 Delivery O2 Flow Rate FiO2 12/05/24 17:00 98.1 80 15 112/75 (87) 95 98.1 12/05/24 08:00 Room Air* 0 21 Total Intake and Output 12/04/24 12/04/24 12/05/24 15:00 23:00 07:00 Intake Total 520 ml 650 ml Output Total 1702 ml 1150 ml Balance -1182 ml -500 ml medications Current Medications Medications Dose Ordered Sig/Liliam Route Start Time Stop Time Status Last Admin Dose Admin Amino Acids 0 ml @ 0 mls/hr PER PHARMACY IV 10/15/24 18:45 Cancel Dextrose 50 ml UD IV 10/16/24 09:30 Cancel Vancomycin HCl 0 ml @ 0 mls/hr UD IV 10/19/24 14:00 Cancel Amino Acids 0 ml @ 0 mls/hr PER PHARMACY IV 11/04/24 22:00 Cancel Mexiletine HCl 150 mg TID GT 11/10/24 22:00 12/05/24 12:53 150 MG Fat Emulsion Intravenous 150 ml/Sodium Acetate 20 meq/Potassium Acetate 30 meq/ Potassium Phosphate 19.8 meq/Calcium Gluconate 2.3 meq/ Magnesium Sulfate 4 meq/ Multivitamins 10 ml/Chromium/ Copper/Manganese/ Zinc 1 ml/Amino Acids/Dextrose/ Purified Water 1,596.4462 ml @ 66 mls/hr [id number] IV 11/11/24 22:00 11/12/24 21:59 Cancel Acetaminophen 650 mg Q4HR PRN GT 11/17/24 08:30 12/01/24 22:00 650 MG Potassium Bicarbonate 50 meq BID PEG 11/18/24 22:00 12/05/24 11:09 50 MEQ Enteral Nutritional Formula 1,000 ml 55ML/HR GT 11/19/24 15:00 12/05/24 07:50 1,000 ML Lorazepam 1 mg ONCE PRN IV 11/20/24 10:30 Apixaban 2.5 mg BID PEG 11/26/24 22:00 12/05/24 11:09 2.5 MG Amino Acid Protein 30 ml DAILY GT 11/30/24 10:00 12/05/24 10:00 30 ML Albuterol 2.5 mg Q4HPRN PRN NEB 12/01/24 11:45 Cancel Ipratropium [place] 0.5 mg Q4HPRN PRN NEB 12/01/24 11:45 Cancel Furosemide 40 mg BIDD PO 12/04/24 18:00 12/05/24 16:57 40 MG Pantoprazole Sodium 40 mg BID@0600,1700 PO 12/04/24 17:00 12/05/24 16:57 40 MG objective HEENT: EOMI, PERRLA, normal external inspect of ears, no icterus, no nasal drainage Neck: no carotid bruit, no jugular venous distention (JVD), no lymphadenopathy Chest: normal thorax Respiratory: Intubated, clear to auscultation, normal air movement Cardiovascular: regular rate and rhythm, no diastolic murmur, no jugular venous distention (JVD), no rub, no systolic murmur Abdominal: soft, no hepatomegaly, no mass, no splenomegaly, no tenderness Genitourinary: grossly normal external Musculoskeletal: no joint tenderness, no swelling Extremities: normal pulses, no calf tenderness, no clubbing, no cyanosis, no edema Skin: no bruising, no jaundice, no rash Neurological: No focal deficit laboratory and microbiology Laboratory Tests 12/04/24 13:23 Test 12/04/24 13:23 Range/Units Serum Glucose 129 H 74-106 mg/dL Problem List Cardiac Arrest with Ventricular Fibrillation Assessment: Patient experienced cardiac arrest with ventricular fibrillation on 10/07/24, witnessed by family members who initiated CPR. EMS found the patient in ventricular fibrillation and administered shock therapy. Rhythm strip analysis confirmed ventricular fibrillation. Patient required intubation and sedation upon ED arrival. Currently admitted to ICU for close observation. Cardiology has been consulted and plans for AICD placement, likely on Tuesday. Infectious disease clearance has been obtained for the AICD procedure, addressing initial concerns of leukocytosis which is now improving. Status post-cardiac arrest. Plan: - Continue ICU monitoring - Proceed with AICD placement as planned (likely Tuesday), cleared by infectious disease. - Maintain intubation and sedation until AICD placement - Continue Heparin drip for paroxysmal atrial fibrillation - Continue Mexitil - DC amiodarone due to transaminitis - added esmolol drip per Cardiology for AFib and added push doses of digoxin Coronary Artery Disease Assessment: Patient with history of 2-vessel CABG (Coronary Artery Bypass Grafting). Surgical intervention previously performed to address significant coronary artery stenosis. Plan: - Continue medical management - Follow up with cardiology for ongoing coronary artery disease management Acute and Chronic Systolic Heart Failure Assessment: Patient has acute and chronic systolic heart failure with severely reduced left ventricular function. Ejection fraction is estimated at 15-20%. RICHIE findings are consistent with severely reduced left ventricular ejection fraction, previously implanted mitral ring, up to moderate mitral stenosis and regurgitation, and moderate aortic insufficiency. Plan: - Continue cardiology consultation - continue IV diuretics (IV Lasix) - Monitor renal function Acute Hypoxic Respiratory Failure Assessment: Patient is currently intubated due to acute hypoxic respiratory failure. Dr. Downey from pulmonology is managing this aspect of care. Plan: - Maintain current intubation as per pulmonology recommendation - Proceed with CPAP trials when deemed appropriate by pulmonology Transaminitis Assessment: Patient has elevated liver function tests, likely secondary to amiodarone use. Cardiology has discontinued amiodarone in response. Plan: - Monitor liver function tests - Amiodarone discontinued as per cardiology Enterobacter PNA Assessment: Sputum culture positive for Enterobacter. Plan: - Continue treatment with Eratapenem to complete 10 days regimen -Infectious disease consult Hemodynamic Support Assessment: Patient requires vasopressor support for hemodynamic stability. Plan: - Continue vasopressin - Continue neosynephrine Paroxysmal a fib -DC amiodarone -continue with heparin gtt Shock liver GI consult, trend liver enzymes, hepatitis panel was negative. Ultrasound of the liver had no acute findings. Assessment/Plan Subjective Patient is awake and alert. Objective Patient states she is not eating well due to not having any dentures which were reportedly loss at this facility. Patient was admitted for sepsis with septic shock status postcardiac arrest. Patient has been intubated twice. She is currently on room air. Repeat chest x-ray had no acute findings. Plan Continue physical therapy. Encouraged to increase oral intake. Continue tube feeding with a G-tube for nutritional deficit. Plan to transfer to SNF for continued rehab once bed is available. Dietary Evaluation Review Comments: 1) TF Jevity 1.2Cal @ 55 ml/hr. x 24hr along with Pro-stat 1 pk daily. Start @ 20ml/hr, increase 10ml/hr Q4H until goal is reached. TF @ goal volume provides 1684 kcal (100% energy needs), 88 gm protein (100% protein needs), 1065 ml free water. 2) Water flush 100ml Q4H if allowed, adjust PRN 3) Advance to cardiac diet as medically feasible 4) Monitor NPO status, lab values, wt trend, I/O Expected Outcomes/Goals: To meet >75% estimated needs within 7 days Lab values to improve Fu 2-3 days Plan discussed with: Patient, Other BRODIE GARVIN NP Dec 05, 2024 19:50
--- NOTE | 2024-12-05 20:50 | DVHNC2 ---
Intubation Indication: Respiratory Insufficiency, Altered Mental Status, Airway Protection Prep: Preoxygenation Pretreated with: Sedation Medicated with: Succinylcholine Intubation Approach: Orotracheal Informed consent obtained: No Risks/benefits/alt described: No Notes A time out was performed. My hands were washed immediately prior to the procedure. I wore a surgical cap, mask with protective eyewear, gown and gloves throughout the procedure. The patient was placed on a ekg monitor including continuous pulse oximetry. Rapid Sequence Intubation was conducted. The patient received 15mg of etomidate for induction and 60 mg of succinylcholine for adequate paralysis. Cricoid pressure was maintained from time induction agent was given to time of cuff balloon inflation. Using a MAC 4 laryngoscope and a size 7.5 endotracheal tube with stylet, the patient was intubated on the _ attempt. The stylet was removed and cuff balloon was inflated. Appropriate endotracheal tube position was confirmed by direct visualization of vocal cord passage, fogging of the tube, CO2 colormetric indicator and symmetric breath sounds.Post intubation chest x-ray confirmed placement. Date of Service: Nov 14, 2024 Billing Provider: DOLLY ELIZALDE Common Visit Codes: PROCEDURE ONLY Procedure Codes: 85960-[id number] DOLLY ELIZALDE Dec 05, 2024 20:50
--- NOTE | 2024-12-05 21:15 | DVHPN2 ---
Progress Note - Dictate Date Seen: Dec 05, 2024 Has the PT tested + for MRSA If YES, has PT been informed?: No Medical Necessity Reason Pt with a Central, PICC or Fol: No The following are medically ne: PICC Line, Cutler Catheter Reason for cutler catheter: Strict I&O Subjective No new complaints Patient is tolerating oral diet She is also using PEG tube for supplemental feedings No nausea and vomiting abdominal pain or GI bleeding vital signs Vital Sign Date Time Temp Pulse Resp B/P (MAP) Pulse Ox O2 Delivery O2 Flow Rate FiO2 12/05/24 17:00 98.1 80 15 112/75 (87) 95 98.1 12/05/24 08:00 Room Air* 0 21 Total Intake and Output 12/04/24 12/04/24 12/05/24 15:00 23:00 07:00 Intake Total 520 ml 650 ml Output Total 1702 ml 1150 ml Balance -1182 ml -500 ml medications Current Medications Medications Dose Ordered Sig/Liliam Route Start Time Stop Time Status Last Admin Dose Admin Amino Acids 0 ml @ 0 mls/hr PER PHARMACY IV 10/15/24 18:45 Cancel Dextrose 50 ml UD IV 10/16/24 09:30 Cancel Vancomycin HCl 0 ml @ 0 mls/hr UD IV 10/19/24 14:00 Cancel Amino Acids 0 ml @ 0 mls/hr PER PHARMACY IV 11/04/24 22:00 Cancel Mexiletine HCl 150 mg TID GT 11/10/24 22:00 12/05/24 12:53 150 MG Fat Emulsion Intravenous 150 ml/Sodium Acetate 20 meq/Potassium Acetate 30 meq/ Potassium Phosphate 19.8 meq/Calcium Gluconate 2.3 meq/ Magnesium Sulfate 4 meq/ Multivitamins 10 ml/Chromium/ Copper/Manganese/ Zinc 1 ml/Amino Acids/Dextrose/ Purified Water 1,596.4462 ml @ 66 mls/hr [id number] IV 11/11/24 22:00 11/12/24 21:59 Cancel Acetaminophen 650 mg Q4HR PRN GT 11/17/24 08:30 12/01/24 22:00 650 MG Potassium Bicarbonate 50 meq BID PEG 11/18/24 22:00 12/05/24 11:09 50 MEQ Enteral Nutritional Formula 1,000 ml 55ML/HR GT 11/19/24 15:00 12/05/24 07:50 1,000 ML Lorazepam 1 mg ONCE PRN IV 11/20/24 10:30 Apixaban 2.5 mg BID PEG 11/26/24 22:00 12/05/24 11:09 2.5 MG Amino Acid Protein 30 ml DAILY GT 11/30/24 10:00 12/05/24 10:00 30 ML Albuterol 2.5 mg Q4HPRN PRN NEB 12/01/24 11:45 Cancel Ipratropium [place] 0.5 mg Q4HPRN PRN NEB 12/01/24 11:45 Cancel Furosemide 40 mg BIDD PO 12/04/24 18:00 12/05/24 16:57 40 MG Pantoprazole Sodium 40 mg BID@0600,1700 PO 12/04/24 17:00 12/05/24 16:57 40 MG objective Examination: GENERAL:Normal, LUNGS: Decreased breath sounds at bases ABDOMEN: Soft, dressing dry, G-tube in place, SKIN:Normal, NEURO:Normal laboratory and microbiology Laboratory Tests 12/04/24 13:23 Test 12/04/24 13:23 Range/Units Serum Glucose 129 H 74-106 mg/dL Problems(with codes): (1) Shock liver (2) Pneumonia (3) Sepsis, unspecified organism (4) Ventricular fibrillation (5) Cardiac arrest Prognosis Plan S/P ICD implant pacemaker Continue supportive care from GI point of view Patient is awaiting placement Dietary Evaluation Review Comments: 1) TF Jevity 1.2Cal @ 55 ml/hr. x 24hr along with Pro-stat 1 pk daily. Start @ 20ml/hr, increase 10ml/hr Q4H until goal is reached. TF @ goal volume provides 1684 kcal (100% energy needs), 88 gm protein (100% protein needs), 1065 ml free water. 2) Water flush 100ml Q4H if allowed, adjust PRN 3) Advance to cardiac diet as medically feasible 4) Monitor NPO status, lab values, wt trend, I/O Expected Outcomes/Goals: To meet >75% estimated needs within 7 days Lab values to improve Fu 2-3 days Plan discussed with: Other (Nurse) CANDI BOSS MD Dec 05, 2024 21:15
--- NOTE | 2024-12-06 10:22 | DVHDS2 ---
Discharge Summary Date of Admission Oct 07, 2024 at 09:56 Date of Discharge: Dec 05, 2024 Labs/Diagnostic Data: Laboratory Results Test 12/04/24 13:23 11/30/24 08:35 11/30/24 06:49 11/29/24 06:40 White Blood Count 6.6 10^3/uL (4.4-10.8) Red Blood Count 3.35 10^6/uL (4.0-5.20) Hemoglobin 10.2 g/dL (12.2-16.2) Hematocrit 31.9 % (36.0-46.0) Mean Corpuscular Volume 95.3 fL (80.0-100.0) Mean Corpuscular Hemoglobin 30.4 pg (28.0-32.0) Mean Corpuscular Hemoglobin Concent 31.9 g/dL (32.0-36.0) Red Cell Distribution Width 24.2 % (11.8-14.3) Platelet Count 155 10^3/uL (140-450) Mean Platelet Volume 8.5 fL (6.9-10.8) Neutrophils (%) (Auto) 53.5 % (37.0-80.0) Lymphocytes (%) (Auto) 41.5 % (10.0-50.0) Monocytes (%) (Auto) 4.6 % (0.0-12.0) Eosinophils (%) (Auto) 0.1 % (0.0-7.0) Basophils (%) (Auto) 0.3 % (0.0-2.0) Neutrophils # (Auto) 3.6 10 ^3/uL (1.6-8.6) Lymphocytes # (Auto) 2.8 10 ^3/uL (0.4-5.4) Monocytes # (Auto) 0.3 10 ^3/uL (0-1.3) Eosinophils # (Auto) 0 10 ^3/uL (0-0.8) Basophils # (Auto) 0 10 ^3/uL (0-0.2) Nucleated Red Blood Cells 0.4 % Sodium Level 137 mmol/L (136-145) Potassium Level 4.0 mmol/L (3.5-5.1) Chloride Level 97 mmol/L (98-107) Carbon Dioxide Level 29 mmol/L (20-31) Anion Gap 11 (5-15) Blood Urea Nitrogen 13 mg/dL (9-23) Creatinine 0.54 mg/dL (0.550-1.02) Glomerular Filtration Rate Calc 109 mL/min (>90) BUN/Creatinine Ratio 24.1 (10.0-20.0) Serum Glucose 129 mg/dL (74-106) Calcium Level 8.5 mg/dL (8.7-10.4) Magnesium Level 1.9 mg/dL (1.6-2.6) Total Bilirubin 1.0 mg/dL (0.2-1.0) Aspartate Amino Transferase (AST) 55 U/L (13-40) Alanine Aminotransferase (ALT) 66 U/L (7-40) Alkaline Phosphatase 146 U/L (46-116) Total Protein 6.0 g/dL (5.7-8.2) Albumin 3.0 g/dL (3.2-4.8) Stool Occult Blood Negative (Negative) Stool Occult Blood Sample #3 (Negative) Differential Total Cells Counted 100.0 (100) Neutrophils % (Manual) 49 (37.0-80.0) Band Neutrophils % (Manual) 3 Lymphocytes % (Manual) 42 (10.0-50.0) Monocytes % (Manual) 6 (0-12) Eosinophils % (Manual) 0 (0-7) Basophils % (Manual) 0 (0.0-2.0) Metamyelocytes % (manual) 0 Myelocytes % (Manual) 0 Promyelocytes % (Manual) 0 Blast Cells % (Manual) 0 Reactive Lymphocytes 0 Platelet Estimate Decreased Large Platelets Few Anisocytosis (manual) Moderate Schistocytes Few Clumped Platelets Few Test 11/26/24 06:40 11/25/24 08:37 11/25/24 04:00 11/24/24 03:40 Blood Gas Specimen Type Arterial Blood Gas Sample Site Left radial Blood Gas Patient Temperature 37.0 Arterial Blood Date Drawn [id number] Arterial Blood pH 7.607 (7.350-7.450) Arterial Blood Partial Pressure CO2 36.7 mmHg (32.0-45.0) Arterial Blood Partial Pressure O2 129.6 mmHg (83.0-108.0) Arterial Blood HCO3 35.8 mmol/L (21.0-28.0) Arterial Blood Oxygen Saturation 98.6 % (94.0-98.0) Arterial Blood Base Excess 13.4 mmol/L (-2.0-3.0) Arterial Blood Oxyhemoglobin 98.5 % (94.0-98.0) Arterial Blood Carboxyhemoglobin 0.0 % (0.5-1.5) Arterial Blood Methemoglobin 0.1 % (0.0-1.5) Trung Test Modified Blood Gas Total Hemoglobin 10.00 g/dL (12.0-16.0) Blood Gas Modality Vent - cpap FiO2 % 30.0 Blood Gas Comments Cpap ps 8/+5 Blood Gas Critical Value Read Back Yes Blood Gas Notified Whom John jorgensen md Blood Gas Notified Time [id number] Blood Gas Notified By Mauro mckenzie Blood Gas Set Respiration Rate 16.0 Blood Gas Spontaneous Rate 17 Blood Gas Tidal Volume 350.0 Blood Gas PEEP or CPAP 5.0 Stomatocytes Few Prothrombin Time 11.8 sec (9.3-11.8) Prothrombin Time INR 1.13 (0.9-1.15) Activated Partial Thromboplast Time 24.5 SEC (24.5-34.5) Test 11/22/24 11:53 11/19/24 03:08 11/15/24 12:11 11/15/24 04:00 Blood Gas Pressure Support 10 Direct Bilirubin 1.9 mg/dL (<0.3) Ammonia 30 umol/L (11-32) Urine Color Yellow (Yellow) Urine Clarity Turbid (Clear) Urine pH 5.0 (5.0-9.0) Urine Specific [place] 1.012 (1.001-1.035) Urine Protein Trace (Negative) Urine Ketones Negative (Negative) Urine Blood 2+ /uL (Negative) Urine Nitrite Negative (Negative) Urine Bilirubin Negative (Negative) Urine Urobilinogen Normal mg/dL (Negative) Urine Leukocyte Esterase 1+ /uL (Negative) Urine RBC 3 /hpf (0 - 4) Urine Microscopic WBC 14 /HPF (0-5) Urine Squamous Epithelial Cells Few /hpf (<5) Urine Calcium Oxalate Crystals Few (None Seen) Urine Amorphous Crystals Few /hpf (None Seen) Urine Bacteria Few /hpf (None Seen) Urine Hyaline Casts Mod /lpf (0 - 2) Urine Mucus Few (None Seen) Urine Glucose Normal mg/dL (Normal) Test 11/14/24 09:27 11/14/24 05:59 11/14/24 03:39 11/14/24 02:20 Influenza Type A Antigen Negative (Negative) Influenza Type B Antigen Negative (Negative) SARS-CoV-2 Antigen (Rapid) Negative (NEGATIVE) POC Glucose 98 mg/dl (70-106) Macrocytosis Slight B-Type Natriuretic Peptide 928.14 pg/mL (0-100) Blood Gas Liter Flow 15.00 Test 11/13/24 02:30 11/11/24 05:43 11/09/24 04:52 11/01/24 04:00 Stool for White Cells None seen Phosphorus Level 3.0 mg/dL (2.4-5.1) Triglycerides Level 72 mg/dL (< 150) Prealbumin 14.6 md/dL (10.0-40.0) Test 10/30/24 14:56 10/24/24 03:43 10/21/24 13:10 10/19/24 14:52 Anti-Nuclear Antibody Screen Positive (Negative) Ferritin 698.0 ng/mL (10-291) Vancomycin Level Trough 17.1 ug/mL (5-10) Lactic Acid Level 2.9 mmol/L (0.4-2.0) Test 10/17/24 02:45 10/16/24 02:40 10/15/24 03:09 10/11/24 03:23 Polychromasia Slight Digoxin Level 0.98 ng/mL (0.8-2) Tear Drop Cells Few Poikilocytosis (manual) Slight Hemoglobin A 97.5 % (96.4-98.8) Hemoglobin A2 2.5 % (1.8-3.2) Hemoglobin F () 0.0 % (0.0-2.0) Hemoglobin S 0.0 % (0.0) Hemoglobin Electrophoresis Interp Comment (.) Serum Immunoglobulin G 1149 mg/dL (586-1602) Immunoglobulin A 210 mg/dL (87-352) Immunoglobulin M 186 mg/dL (26-217) Serum Immunofixation Comment (.) Free [place] Light Chains, Quant 49.1 mg/L (3.3-19.4) Free [place]/Lambda Light Chain Ratio 1.54 (0.26-1.65) Hepatitis A IgM Antibody Negative Hepatitis B Surface Antigen Negative (Negative) Hepatitis B Core IgM Antibody Negative (Negative) Hepatitis C Antibody Negative (Negative) Test 10/09/24 22:25 10/07/24 22:13 10/07/24 14:09 10/07/24 10:56 Urine Creatinine 31.20 mg/dL (30.0-125.0) Urine Protein/Creatinine Ratio 0.72 Urine Sodium 79 mmol/L (40-220) Urine Total Protein 22.5 mg/dL (1-14) Blood Gas Spontaneous Tidal Volume 488 Troponin I High Sensitivity 117 ng/L (</=34) Cholesterol Level 66 mg/dL (< 200) LDL Cholesterol 31 mg/dL (< 100) HDL Cholesterol 21 mg/dL (40-59) Test 10/07/24 06:17 Urine Opiates Screen Neg (NEGATIVE) Urine Fentanyl Screen Neg (NEGATIVE) Urine Barbiturates Screen Neg (NEGATIVE) Urine Phencyclidine Screen Neg (NEGATIVE) Urine Amphetamines Screen Neg (NEGATIVE) Urine Benzodiazepines Screen Neg (NEGATIVE) Urine Cocaine Screen Neg (NEGATIVE) Urine Cannabinoids Screen Neg (NEGATIVE) Other Laboratory Tests 12/04/24 13:23 Brief Hx & Hospital Course: 54 y/o female patient presents status post cardiac arrest. Patient collapsed at her dining table which was witnessed by her significant other. CPR was performed by EMS. She was noted to have ventricular tachycardia. Patient was admitted status post cardiac arrest. Patient apparently was visiting from [place] of state. Her mother had recently and on the day of the she dropped to the ground. Patient was brought into the emergency room and emergently intubated. Patient was seen by cardiology. She was on the ventilator for several weeks and developed dysphagia and failed several of her swallow eval's. Patient was brought to [facility] and she is status post AICD. Patient ultimately had a G-tube placed due to aspiration pneumonia. Patient was emergently reintubated. Patient had sepsis with septic shock. Patient had Enterobacter pneumonia and VRE of her urine. Patient was seen by infectious disease. She did complete her antibiotic course. Patient was seen by physical therapy. She was very deconditioned. Patient reportedly lost her dentures at the hospital along with several other personal items. Patient stated she was unable to tolerate a pured diet due to taste and texture. I did encourage her to increase her oral intake. Patient was doing well at discharge. She was still requiring tube feedings for Actra nutritional support. Patient was discharged to [facility] for continued rehab and G-tube feedings and speech therapy reevaluations. The patient received proper medical treatment and medications. Vital signs, Imaging and Laboratory Work was monitored daily. All consults recommendations were followed as provided. There were no complaints or new complaints upon discharge, all questions and concerns were answered. Patient was advised to return to the ER or call 911 if any headaches, dizziness, shortness of breath, chest pain, bleeding, fevers, or worsening of medical condition. Patient/Family was counseled about treatment plan, medications, possible side effects, patient verbalized understanding. All questions were answered to the best of my ability. The patient symptoms improved and they are okay to be DC. Condition at Discharge: Stable Final Diagnosis/Problems List s/p cardiac arrest/v fib s/p aicd acute hypoxic resp failure sepsis due to enterobacter pneumonia deconditioned state pureed diet, g tube feeds until good oral intake coronary artery disease acute on chronic systolic heart failure transaminitis paroxysmal a-fib shock liver Discharge Disposition: Retirement Facility Discharge Instruct/Medications Diet: See Comment Diet comment: Tube feeds Activity: No Restrictions, As Tolerated Discharge Statement: "Patient was advised to return to the ER or call 911 if any headaches, dizziness, shortness of breath, chest pain, abdominal pain, bleeding, fevers, or worsening of medical condition. Patient was counseled about treatment plan, medications, possible side effects, patientverbalized understanding. All questions were answered to the best of my ability. This discharge took greater then 30 minutes in planning, reviewing documentation, counseling the patient, and discussing with other team members." ASSESSMENT ASSESSMENT Assessment s/p cardiac arrest/v fib s/p aicd acute hypoxic resp failure sepsis due to enterobacter pneumonia deconditioned statepureed diet, g tube feeds until good oral intake BRODIE GARVIN NP Dec 06, 2024 10:22
== END 2024-12-05 22:42 | DRG 710 ==
LOC: EDBD 04:13 → ER 04:13 → OVERFLOW 09:56 → ICU WEST 15:36 → TELE-WESTW 11-01 17:19 → ICU WEST 11-14 03:51 → TELE-WESTW 11-27 18:44
PROVIDERS: ADMIT Nurse Practitioner; ATTEND Nurse Practitioner
PROC: 5A12012 Performance of Cardiac Output, Single, Manual (ICD-10-PCS; principal; 2024-10-07)
PROC: 02HV33Z Insertion of Infusion Device into Superior Vena Cava, Percutaneous Approach (ICD-10-PCS; 2024-10-07)
PROC: 0BH17EZ Insertion of Endotracheal Airway into Trachea, Via Natural or Artificial Opening (ICD-10-PCS; 2024-10-07)
PROC: 5A1955Z Respiratory Ventilation, Greater than 96 Consecutive Hours (ICD-10-PCS; 2024-10-07)
PROC: 5A2204Z Restoration of Cardiac Rhythm, Single (ICD-10-PCS; 2024-10-07)
PROC: B24BZZ4 Ultrasonography of Heart with Aorta, Transesophageal (ICD-10-PCS; 2024-10-08)
PROC: 4A023N7 Measurement of Cardiac Sampling and Pressure, Left Heart, Percutaneous Approach (ICD-10-PCS; 2024-10-08)
PROC: B211YZZ Fluoroscopy of Multiple Coronary Arteries using Other Contrast (ICD-10-PCS; 2024-10-08)
PROC: B215YZZ Fluoroscopy of Left Heart using Other Contrast (ICD-10-PCS; 2024-10-08)
PROC: B218YZZ Fluoroscopy of Left Internal Mammary Bypass Graft using Other Contrast (ICD-10-PCS; 2024-10-08)
PROC: B212YZZ Fluoroscopy of Single Coronary Artery Bypass Graft using Other Contrast (ICD-10-PCS; 2024-10-08)
PROC: B517YZZ Fluoroscopy of Left Subclavian Vein using Other Contrast (ICD-10-PCS; 2024-10-17)
PROC: 02HK3KZ Insertion of Defibrillator Lead into Right Ventricle, Percutaneous Approach (ICD-10-PCS; 2024-10-17)
PROC: 0JH608Z Insertion of Defibrillator Generator into Chest Subcutaneous Tissue and Fascia, Open Approach (ICD-10-PCS; 2024-10-17)
PROC: 02HV33Z Insertion of Infusion Device into Superior Vena Cava, Percutaneous Approach (ICD-10-PCS; 2024-10-26)
PROC: B548ZZA Ultrasonography of Superior Vena Cava, Guidance (ICD-10-PCS; 2024-10-26)
PROC: 30233N1 Transfusion of Nonautologous Red Blood Cells into Peripheral Vein, Percutaneous Approach (ICD-10-PCS; 2024-10-27)
PROC: 30233K1 Transfusion of Nonautologous Frozen Plasma into Peripheral Vein, Percutaneous Approach (ICD-10-PCS; 2024-11-04)
PROC: 0DH63UZ Insertion of Feeding Device into Stomach, Percutaneous Approach (ICD-10-PCS; 2024-11-09)
PROC: 0B9F8ZZ Drainage of Right Lower Lung Lobe, Via Natural or Artificial Opening Endoscopic (ICD-10-PCS; 2024-11-14)
PROC: 0BH17EZ Insertion of Endotracheal Airway into Trachea, Via Natural or Artificial Opening (ICD-10-PCS; 2024-11-14)
PROC: 5A1955Z Respiratory Ventilation, Greater than 96 Consecutive Hours (ICD-10-PCS; 2024-11-14)
PROC: 05HF33Z Insertion of Infusion Device into Left Cephalic Vein, Percutaneous Approach (ICD-10-PCS; 2024-11-26)
PROC: B54NZZA Ultrasonography of Left Upper Extremity Veins, Guidance (ICD-10-PCS; 2024-11-26)
DX: A41.59 Other Gram-negative sepsis (principal); I46.9 Cardiac arrest, cause unspecified; R57.0 Cardiogenic shock; G93.1 Anoxic brain damage, not elsewhere classified; K72.00 Acute and subacute hepatic failure without coma; R65.21 Severe sepsis with septic shock; J69.0 Pneumonitis due to inhalation of food and vomit; G93.41 Metabolic encephalopathy; J15.69 Pneumonia due to other Gram-negative bacteria; I49.01 Ventricular fibrillation; I50.23 Acute on chronic systolic (congestive) heart failure; Z20.822 Contact with and (suspected) exposure to COVID-19; J96.01 Acute respiratory failure with hypoxia; I48.0 Paroxysmal atrial fibrillation; E87.6 Hypokalemia; I25.10 Atherosclerotic heart disease of native coronary artery without angina pectoris; E78.5 Hyperlipidemia, unspecified; M10.9 Gout, unspecified; I47.20 Ventricular tachycardia, unspecified; R80.9 Proteinuria, unspecified; J98.11 Atelectasis; I08.0 Rheumatic disorders of both mitral and aortic valves; R79.89 Other specified abnormal findings of blood chemistry; K80.20 Calculus of gallbladder without cholecystitis without obstruction; R16.0 Hepatomegaly, not elsewhere classified; K76.0 Fatty (change of) liver, not elsewhere classified; E87.1 Hypo-osmolality and hyponatremia; E46 Unspecified protein-calorie malnutrition; E86.0 Dehydration; I42.8 Other cardiomyopathies; D64.9 Anemia, unspecified; D68.9 Coagulation defect, unspecified; R13.10 Dysphagia, unspecified; E87.20 Acidosis, unspecified; N17.9 Acute kidney failure, unspecified; E87.0 Hyperosmolality and hypernatremia; K74.60 Unspecified cirrhosis of liver; N39.0 Urinary tract infection, site not specified; Z16.21 Resistance to vancomycin; Z79.01 Long term (current) use of anticoagulants; Z95.1 Presence of aortocoronary bypass graft; Z79.899 Other long term (current) drug therapy; Z99.11 Dependence on respirator [ventilator] status; Z82.49 Family history of ischemic heart disease and other diseases of the circulatory system; Z68.24 Body mass index [BMI] 24.0-24.9, adult
CPT/HCPCS: 31500; 33249; 36415; 36556; 36569; 36600; 43246; 70450; 71045; 74018; 75820; 76705; 76857; 76937; 80048; 80053; 80061; 80074; 80076; 80162; 80202; 80307; 81001; 81003; 82040; 82140; 82270; 82570; 82728; 82784; 82805; 82962; 83021; 83521; 83605; 83735; 83880; 84100; 84132; 84156; 84300; 84478; 84484; 85007; 85014; 85018; 85025; 85027; 85048; 85610; 85660; 85730; 86038; 86334; 86850; 86900; 86901; 86920; 87040; 87070; 87077; 87081; 87086; 87088; 87186; 87205; 87426; 87804; 92610; 93005; 93306; 93312; 93458; 93926; 94002; 94003; 94640; 95819; 96365; 97110; 97116; 97163; 97530; 99152; 99291; 99292; C1894; G0378; J0330; J1335; J1450; J1815; J1885; J2003; J2250; J2470; J2543; J3430; J3480; J3490; J7060; P9047; Q9967